=== PATIENT | male | born 1955 | race African-American/Black ===

== ENCOUNTER → 2016-06-26 | Day surgery (SDC) | payer MEDICARE, MEDICAID ==
[2016-06-26] VITALS (11 sets, daily range): BP systolic 119–155; BP diastolic 62–97
[~2016-06-26] VITALS: Ht 175.3 cm; Wt 73.9 kg
[~2016-06-26] MED LIST: ASPIRIN EC325 MG ORAL; ASPIRIN EC81 MG ORAL; ATORVASTATIN CA80 MG ORAL; CARVEDILOL6.25 MG ORAL; CATAPRES0.1 MG ORAL; COUMADIN7.5 MG ORAL; DIGOXIN250 MCG ORAL; FUROSEMIDE40 MG ORAL; GABAPENTIN100 MG ORAL; HARVONI 90-4001 EACH PO; IPRATROPIU0.2 MG/1 M HHN; LEVOTHYROXINE100 MCG ORAL; LEVOTHYROXINE88 MCG ORAL; Lidocaine 1% MPF 10mg/ml 5ml ONE; MORPHINE IR15 MG ORAL; MORPHINE S10 MG/5 ML ORAL; MS CONTIN15 MG ORAL; MULTIVITAMINS1 EAC2 ORAL; NITROGLYCERIN0.4 MG SL; NORCO 5-325 TA1 EACH ORAL; OXYCODONE HCL10 MG ORAL; PREVACID30 MG ORAL; PRINIVIL10 MG ORAL; PROAIR HFA8.5 GM INH; Propofol 10mg/ml 20ml IV ONE; RANITIDINE HCL150 MG ORAL; REGLAN5 MG ORAL; SPIRONOLACTONE100 MG ORAL; SYNTHROID100 MCG ORAL; TYLENOL650 MG/20. ORAL; ZOLPIDEM TARTRAT5 MG ORAL
--- NOTE | 2016-06-26 10:12 | Pre-Procedure Note/Attestation ---
Pre-Procedure Note/Attestation Complete Prior to Procedure Planned Procedure: not applicable Procedure Narrative: colonoscopy Indications for Procedure Pre-Operative Diagnosis: screening colon Attestation I attest that I discussed the nature of the procedure; its benefits; risks and complications; and alternatives (and the risks and benefits of such alternatives ), prior to the procedure, with the patient (or the patient's legal electronics parts sales representative). I attest that, if there was a reasonable possibility of needing a blood transfusion, the patient (or the patient's legal electronics parts sales representative) was given the [facility] standardized written summary, pursuant to the [place] Blood Safety Act ([place] Health and Safety Code # 1645, as amended). I attest that I re-evaluated the patient just prior to the surgery and that there has been no change in the patient's H&P, except as documented below: PALAK BILLINGSLEY Jun 26, 2016 10:12
--- NOTE | 2016-06-26 10:15 | Short Stay Surgery H&P ---
History of Present Illness History of Present Illness Chief Complaint screening colon HPI Shad Rodas is a 61 year old male who was admitted on for Abdominal Pain, Cirrhosis, Hep C Patient History Allergies: Coded Allergies: HYDROMORPHONE (Verified Allergy, Unknown, 12/28/10) PAST MEDICAL HISTORY: (1) Hepatitis C (2) Cirrhosis (3) CHF (congestive heart failure) (4) Ascites Past Surgeries: Social History: Medication History Scheduled Albuterol Sulfate* (Proair Hfa*), 2 PUFFS INH Q6H, (Reported) Aspirin Ec* (Aspirin Ec*), 81 MG ORAL DAILY, (Reported) Aspirin* (Aspirin Ec*), 325 MG ORAL PRN, (Reported) Atorvastatin Calcium* (Lipitor*), 80 MG ORAL BEDTIME, (Reported) Carvedilol* (Carvedilol*), 12.5 MG ORAL EVERY 12 HOURS, (Reported) Digoxin* (Digoxin*), 0.25 MG ORAL DAILY, (Reported) Furosemide* (Lasix*), 40 MG ORAL TWICE A DAY, (Reported) Gabapentin* (Gabapentin*), 100 MG ORAL BID, (Reported) Lansoprazole* (Prevacid*), 30 MG ORAL DAILY, (Reported) Levothyroxine Sodium* (Levothyroxine Sodium*), 88 MCG ORAL DAILY, (Reported) Lisinopril* (Prinivil*), 5 MG ORAL DAILY, (Reported) Metoclopramide Hcl* (Reglan*), 5 MG ORAL EVERY 6 HOURS, (Reported) Morphine HCl (Morphine Sulfate ER), 15 MG ORAL BID, (Reported) Multivitamins* (Multivitamins*), 2 TAB ORAL DAILY, (Reported) Oxycodone Hcl* (Oxycodone Hcl*), 10 MG ORAL BID, (Reported) Spironolactone* (Spironolactone*), 50 MG ORAL DAILY, (Reported) Warfarin Sod (Coumadin*), 9.5 MG ORAL DAILY, (Reported) Scheduled PRN Ipratropium [place] 0.5MG/2.5ML (Ipratropium [place] 0.5MG/2.5ML), 0.5 MG HHN Q6H PRN for Shortness of Breath, (Reported) Nitroglycerin (Nitroglycerin), 0.4 MG SL q5 minutes x 3 doses PRN for chest pain , (Reported) Zolpidem Tartrate* (Zolpidem Tartrate*), 10 MG ORAL BEDTIME PRN for Insomnia, ( Reported) Review of Systems Cardiovascular: Reports: no symptoms Respiratory: Reports: no symptoms Skeletal: Reports: no symptoms Gastrointestinal: Reports: gastro esophageal reflux disease Genitourinary: Reports: no symptoms Neurologic: Reports: no symptoms Endocrine: Reports: diabetes - type 2 Hematologic: Reports: anemia Physical Exam Skin: normal HENT: normal Heart: normal Lungs: normal Abdomen: normal Extremities: normal Plan Plan of Care colonoscopy Final Diagnosis: Attestation Are the patient's medical conditions optimized for surgery? Attestation Response: yes PALAK BILLINGSLEY Jun 26, 2016 10:15
--- NOTE | 2016-06-26 11:10 | Anethesia Preoperative Eval ---
Anesthesia Pre-op PMH/ROS General Date of Evaluation: Jun 26, 2016 Time of Evaluation: 11:06 Anesthesiologist: chico ASA Score: ASA 3 Mallampati Score Class I : Soft palate, uvula, fauces, pillars visible Class II: Soft palate, uvula, fauces visible Class III: Soft palate, base of uvula visible Class IV: Only hard plate visible Mallampati Classification: Class III Surgeon: gerri Diagnosis: colon screening Surgical Procedure: colonocopy Anesthesia History: none Family History: no anesthesia problems Allergies: Coded Allergies: HYDROMORPHONE (Verified Allergy, Unknown, 12/28/10) Medications: see eMAR Past Medical History Cardiovascular: Reports: CAD, HTN, arrhythmia, other - aflutter/aicd Gastrointestinal/Genitourinary: Reports: GERD, other - hep c Neurologic/Psychiatric: Denies: CVA, TIA, dementia, depression/anxiety, other Endocrine: Reports: hypothyroidism HEENT: Denies: [place] (L), [place] (R), cataract (L), cataract (R), glaucoma, other Hematology/Immune: Reports: other - on coumadin/dc'd prior to colonoscopy; dr talley wishe to proceed without coags levl PSxH Narrative: aicd placement Anesthesia Pre-op Phys. Exam Physician Exam Last Vital Signs Date Time Temp Pulse Resp B/P Pulse Ox O2 Delivery O2 Flow Rate FiO2 06/26/16 10:41 97.6 60 18 138/86 100 Room Air Constitutional: NAD Airway Exam Mallampati Classification 3 Neck: normal Dentures: no lower, no upper Anesthesia Pre-op A/P Studies Pre-op Studies: EKG - apaced Risk Assessment & Plan Plan: mac Status Change Before Surgery: No Pre-Antibiotics Drug: none DUY TOPETE CRNA Jun 26, 2016 11:10
--- NOTE | 2016-06-26 11:37 | Endoscopy Procedure Note ---
Endoscopy Procedure Note Indication for Procedure: screening Procedures Performed: colonoscopy Operative Findings/Diagnosis: one polyp Specimen: yes Pt Tolerated Procedure Well: Yes Estimated Blood Loss: none Anesthesiologist: corby Anesthesia: MAC Implant(s) used?: No 50 yrs or older w/o bx or poly: No 10yrs. F/U not recommended: Yes If not recommended, why?: Above average risk 10 yrs. F/U needed: Yes 18 years or older w/prev. colo: Yes <3yrs. since last colonoscopy: No PALAK BILLINGSLEY Jun 26, 2016 11:37
--- NOTE | 2016-06-26 11:47 | Immediate Post-Op Evaluation ---
Immediate Post-Op Evalulation Immediate Post-Op Evalulation Procedure: colonoscopy Date of Evaluation: Jun 26, 2016 Time of Evaluation: 11:47 IV Fluids: 300 Blood Pressure Systolic: 119 Blood Pressure Diastolic: 80 Pulse Rate: 59 O2 Sat by Pulse Oximetry: 99 Nausea: No Vomiting: No Complications none Patient Status: awake, reacts, patent Hydration Status: adequate Drug: none DUY TOPETE CRNA Jun 26, 2016 11:47
--- NOTE | 2016-06-26 11:53 | Diagnostic Imaging Report ---
Indication:Abdominal pain Technique: Grayscale and duplex Doppler imaging of the abdomen performed. Comparison: None Findings: The liver, demonstrated part of the pancreas, gallbladder, aorta and IVC, both kidneys, spleen appear unremarkable. There is no biliary ductal dilatation identified. CBD is 4 mm. Doppler evaluation of the main portal vein shows patency. There is no ascites. No hydronephrosis seen. Impression: Negative abdominal ultrasound.
[2016-06-26 12:19] LABS: BASOPHILS % (AUTO) 1.3 % (0.0-2.0); EOSINOPHILS % (AUTO) 1.1 % (0.0-3.0); LYMPHOCYTES % (AUTO) 31.6 % (20.0-45.0); MEAN CORPUSCULAR HEMOGLOBIN 32.7 PG (27.0-31.0); MEAN CORPUSCULAR HGB CONC 32.5 G/DL (32.0-36.0); MEAN CORPUSCULAR VOLUME 101 FL (80-99); MEAN PLATELET VOLUME 8.4 FL (6.5-10.1); MONOCYTES % (AUTO) 9.2 % (1.0-10.0); NEUTROPHILS % (AUTO) 56.8 % (45.0-75.0); PLATELET COUNT 150 K/UL (150-450); RED BLOOD COUNT 4.27 M/UL (4.70-6.10); RED CELL DISTRIBUTION WIDTH 13.4 % (11.6-14.8); WHITE BLOOD COUNT 3.7 K/UL (4.8-10.8)
[2016-06-26 12:26] LABS: INR 1.1 (0.9-1.1); PROTHROMBIN TIME 10.7 SEC (9.30-11.50)
[2016-06-26 12:30] LABS: ANION GAP 10 (5-15); CALCIUM 9.6 mg/dL (8.6-10.2); CARBON DIOXIDE 29 mEQ/L (20-30); CHLORIDE 99 mEQ/L (98-107); CREATININE 1.1 mg/dL (0.7-1.2); GLOMERULAR FILTRATION RATE > 60 mL/min (>60); HEMOLYSIS 9; POTASSIUM 4.4 mEQ/L (3.4-4.9); SODIUM 138 mEQ/L (135-145)
--- NOTE | 2016-06-26 18:18 | Procedure Note ---
DATE OF PROCEDURE: 06/26/2016 SURGEON: Beto Ryan M.D. PROCEDURE: Colonoscopy with biopsy. ANESTHESIA: Per PLANNING MANAGEMENT IT SPECIALIST, Mayra Tarrillion. INSTRUMENT: Olympus adult flexible upper colonoscope. INDICATION: Screening colonoscopy evaluation. REASON FOR PROCEDURE: The procedure, risks, benefits, and possible consequences, including hemorrhage, aspiration, perforation and infection, and alternative treatments, were explained to the patient/legal guardian by Dr. Beto Ryan and the patient/legal guardian understood and accepted these risks. DESCRIPTION OF PROCEDURE: After informed consent was obtained and the patient was adequately sedated, first a rectal exam was performed, which was normal. Then, the scope was advanced from rectum into the cecum, documented by appendiceal orifice, ileocecal valve, and right upper quadrant palpation. Quality of prep was very good. The patient had one diminutive polyp in the transverse colon, removed with the cold biopsy forceps technique. Otherwise, the rest of the colonoscopy examination was grossly within normal limit. Retroflexion of rectum showed evidence of medium-sized nonbleeding internal hemorrhoids. SUMMARY OF FINDINGS: 1. Colonic polyp removed, see above for details. 2. Internal hemorrhoids. RECOMMENDATIONS: 1. Follow up biopsies and treat accordingly. 2. Recommend repeat colonoscopy in five years. I want to thank, Dr. Shahid Cherry, for this kind referral. Beto Ryan M.D. DR: KIMO JOB#: [id number] CC: Shahid Cherry D.O.
--- NOTE | 2016-06-27 20:26 | Cardiology Report ---
APPROVED REPORT EKG Measurement Heart [id number] Atrial paced, ventricular sensed rhythm Electronic pacemaker Abnormal ECG
== END | disposition home or self-care (01) ==
LOC: GAS 09:11
DX: Z12.11 Encounter for screening for malignant neoplasm of colon (principal); D12.3 Benign neoplasm of transverse colon; K64.8 Other hemorrhoids; K74.60 Unspecified cirrhosis of liver; B19.20 Unspecified viral hepatitis C without hepatic coma; I50.9 Heart failure, unspecified; K21.9 Gastro-esophageal reflux disease without esophagitis; E11.9 Type 2 diabetes mellitus without complications; D64.9 Anemia, unspecified; I25.10 Atherosclerotic heart disease of native coronary artery without angina pectoris; I10 Essential (primary) hypertension; I48.92 Unspecified atrial flutter; Z79.01 Long term (current) use of anticoagulants; E03.9 Hypothyroidism, unspecified; Z95.810 Presence of automatic (implantable) cardiac defibrillator; Z79.82 Long term (current) use of aspirin; Z79.891 Long term (current) use of opiate analgesic; Z88.5 Allergy status to narcotic agent
CPT/HCPCS: 36415; 45380; 76700; 80048; 85025; 85610; 85730; 93005; J2704; 94003; 94150

== ENCOUNTER → 2016-07-09 | Outpatient (CLI) | payer MEDICARE, MEDICAID ==
[~2016-07-09] MED LIST changes: -Lidocaine 1% MPF 10mg/ml 5ml ONE; -Propofol 10mg/ml 20ml IV ONE
--- NOTE | 2016-07-09 10:20 | GI Progress Note ---
Assessment/Plan Problems: (1) Colon polyps ICD Codes: K63.5 - Polyp of colon SNOMED: 30404199 (2) Hepatitis C ICD Codes: B19.20 - Hepatitis C SNOMED: 82986908 (3) Abdominal pain ICD Codes: R10.9 - Abdominal pain SNOMED: 72865745 Status: stable Status Narrative Seen with Dr. Ryan. Assessment/Plan colonoscopy reviewed with patient. anusol HC prn RTC prn repeat colon x 5 years Subjective Gastrointestinal/Abdominal: Reports: abdominal pain - improved, no symptoms Objective T 97.4 BP 143/94 P 60 100 RA Denies weight loss General Appearance: no apparent distress, alert Cardiovascular: normal rate Respiratory/Chest: normal breath sounds, no respiratory distress Abdominal Exam: normal bowel sounds, non tender, soft Extremities: normal range of motion Objective Endoscopy Procedure Note Indication for Procedure: screening Procedures Performed: colonoscopy Operative Findings/Diagnosis: one polyp PALAK RYAN - Jun 26, 2016 11:37 Chanel Bird N.P. Jul 09, 2016 10:20
[2016-07-09 11:52] VITALS: BP 153/100
== END | disposition home or self-care (01) ==
LOC: PAN 09:29
DX: K63.5 Polyp of colon (principal); B19.20 Unspecified viral hepatitis C without hepatic coma; R10.9 Unspecified abdominal pain
CPT/HCPCS: 99211

== ENCOUNTER 2016-12-07 10:07 | Inpatient (IN) | payer MEDICARE, MEDICAID ==
[~2016-12-07] VITALS: Ht 190.5 cm; Wt 68.5 kg
[2016-12-07 10:15] VITALS: BP 151/104
[2016-12-07] MEDS ORDERED: Ketorolac 30mg Inj IV ONE (10:15)
[2016-12-07 10:57] LABS: EOSINOPHILS % (AUTO) 0.2 % (0.0-3.0); LYMPHOCYTES % (AUTO) 15.7 % (20.0-45.0); MEAN CORPUSCULAR HEMOGLOBIN 33.4 PG (27.0-31.0); MEAN CORPUSCULAR VOLUME 104 FL (80-99); MEAN PLATELET VOLUME 7.5 FL (6.5-10.1); MONOCYTES % (AUTO) 5.4 % (1.0-10.0); NEUTROPHILS % (AUTO) 76.6 % (45.0-75.0); PLATELET COUNT 183 K/UL (150-450); RED BLOOD COUNT 3.59 M/UL (4.70-6.10); RED CELL DISTRIBUTION WIDTH 14.6 % (11.6-14.8); WHITE BLOOD COUNT 6.3 K/UL (4.8-10.8)
[2016-12-07 11:07] LABS: ALANINE AMINOTRANSFERASE 33 U/L (3-41); ALBUMIN/GLOBULIN RATIO 1.4 (1.0-2.7); ANION GAP 15 (5-15); ASPARTATE AMINO TRANSFERASE 29 U/L (5-40); CARBON DIOXIDE 24 mEQ/L (20-30); CHLORIDE 98 mEQ/L (98-107); CREATININE 1.1 mg/dL (0.7-1.2); GLOMERULAR FILTRATION RATE > 60 mL/min (>60); HEMOLYSIS 13; LIPASE 15 U/L (< 60); POTASSIUM 4.4 mEQ/L (3.4-4.9); SODIUM 137 mEQ/L (135-145); TOTAL PROTEIN 7.4 g/dL (6.6-8.7)
[2016-12-07 11:12] LABS: TROPONIN I < 0.30 ng/mL (<=0.30)
[2016-12-07 11:19] LABS: BILIRUBIN,DIRECT 0.4 mg/dL (0.1-0.3)
[2016-12-07 11:22] VITALS: BP 141/97
[2016-12-07 11:29] LABS: APPEARANCE,URINE CLEAR; KETONES,URINE NEGATIVE (NEGATIVE); LEUKOCYTE ESTERASE ,URINE NEGATIVE (NEGATIVE); NITRITE,URINE NEGATIVE (NEGATIVE); PH,URINE 5 (4.5-8.0); PROTEIN,URINE 4+ (NEGATIVE); UROBILINOGEN,URINE 1 MG/DL (0.0-1.0)
[2016-12-07] MEDS ORDERED: Morphine Sulfate 2mg/ml Inj IVP ONE (11:30)
--- NOTE | 2016-12-07 11:38 | Emergency Room Report ---
History of Present Illness General Chief Complaint: Abdominal Pain Source: Patient Present Illness HPI 61YOM BIBEMS with epigastric substernal chest pain associated with left lower abd pain for 2-3 days. Pain intermittent, worse with movement. Associated with nausea w/out vomiting, without diarrhea, without rectal bleed. Had colonoscopy recently that showed "polyp." Allergies: Coded Allergies: HYDROMORPHONE (Verified Allergy, Unknown, 12/28/10) Patient History Past Medical History: other - hernia Past Surgical History: pacemaker Pertinent Family History: none Social History: Denies: alcohol use, drug use, smoking Immunizations: UTD Reviewed Nursing Documentation: PMH: Agreed, PSxH: Agreed Nursing Documentation-PMH Hx Cardiac Problems: Yes Hx Hypertension: Yes Hx Pacemaker: Yes - Left upper chest Hx COPD: Yes Hx Cancer: No Hx Gastrointestinal Problems: Yes Hx Neurological Problems: No Review of Systems All Other Systems: negative except mentioned in HPI Physical Exam Vital Signs Date Time Temp Pulse Resp B/P Pulse Ox O2 Delivery O2 Flow Rate FiO2 12/07/16 10:10 98.2 92 15 150/114 99 Room Air Sp02 EP Interpretation: reviewed, abnormal General Appearance: normal inspection, well appearing, no apparent distress, alert, GCS 15, non-toxic Head: normocephalic, atraumatic Eyes: bilateral eye EOMI, bilateral eye PERRL ENT: normal ENT inspection, hearing grossly normal, normal voice Neck: normal inspection, full range of motion, supple, no bony tend Respiratory: normal inspection, lungs clear, normal breath sounds, no respiratory distress, no retraction, no wheezing, other - palpation of chest wall reproduces pain, chest symmetrical Cardiovascular #1: regular rate, rhythm, no edema Gastrointestinal: normal inspection, normal bowel sounds, soft, no guarding, no hernia, other - tender to left side of abdomen Genitourinary: no CVA tenderness Musculoskeletal: normal inspection, back normal, normal range of motion, Naye' s Sign negative Neurologic: normal inspection, alert, oriented x3, responsive, thermal cutting tracer machine operator III-XII nml as tested, motor strength/tone normal, speech normal Psychiatric: normal inspection, judgement/insight normal, mood/affect normal Skin: normal inspection Medical Decision Making Diagnostic Impression: Primary Impression: Abdominal pain Qualified Codes: R10.30 - Lower abdominal pain, unspecified Additional Impressions: Chest pain Qualified Codes: R07.9 - Chest pain, unspecified Ascites Qualified Codes: R18.8 - Other ascites Pleural effusion on right Pleural effusion on left ER Course Abd pain, left side - Labs: No leuks. Afebrile. H&H stable. Mild LFT abnormalities - CT: Bibasilar pleural effusions (?CHF), ascites, GB wall thickening, edematous, subsegmental atelectasis, thickening urinary bladder wall - Pain is LEFT sided. Non tender on serial exam to RUQ - low suspicion for acute frannie. - A: Known hep C and cirrhosis. Likely cause of ascites and LFTs abnormalities. Only amount amount, no therapeutic paracentesis needed at this time. Chest pain - ECG shows what looks like new onset 1st degree block. ST depression in V5-6. Troponin 0. ASA given in ED. CT abdomen with bilateral pleural effusions, possibly CHF. Lasix IV given - Needs admission for ACS rule out, echo. High risk with known previous ACS, CHF, pacemaker. UTI? - CTAP shows bladder wall thickening - UA with WBCs, bacteria - IV Rocehphin given Endorsed to Dr Mojica for tele admit for multipl medical problems at 1232pm. EKG Diagnostic Results Rate: other - 1st degree AV block ST Segments: other - ST depressions in V5-6 ASA given to the pt in ED: No Rhythm Strip Diag. Results EP Interpretation: yes Rate: 85 Rhythm: NSR, no PVC's, no ectopy Chest X-Ray Diagnostic Results Chest X-Ray Ordered: Yes # of Views/Limited/Complete: 1 View EP Interpretation: Yes Interpretation: no consolidation, no effusion, no pneumothorax, no acute cardiopulmonary disease, other - pacemaker, cardiomegaly Indication: Chest Pain Impression: No acute disease Interpreting ER Provider: Renato Last Vital Signs Date Time Temp Pulse Resp B/P Pulse Ox O2 Delivery O2 Flow Rate FiO2 12/07/16 11:22 98.6 76 15 141/97 100 Room Air Status: improved Disposition: ADMITTED INPATIENT Condition: Serious Referrals: ROCÍO MOJICA (PCP) MINA JAMES M.D. Dec 07, 2016 11:38
[2016-12-07 11:56] LABS: BACTERIA,URINE OCCASIONAL /HPF; FINE GRANULAR CASTS,URINE 0-2 /LPF; SQUAMOUS EPITHELIAL CELL,UR FEW /LPF (NONE/OCC)
--- NOTE | 2016-12-07 12:23 | Diagnostic Imaging Report ---
Indications: Abdominal pain Technique: Continuous helical CT imaging of the abdomen and pelvis was performed with automatic exposure control following administration of nonionic IV contrast only, on a Siemens sensation [address] scanner. Axial, coronal, sagittal images were reconstructed at 5 mm slice thickness. No oral contrast was administered per requesting physician's order, despite no contraindications listed in either submitted clinical data or tech note.. CTDI volume(s): 17 mGy Total DLP: 791 mGy-cm Findings: Comparison: 08/11 14 Lack of oral contrast limits evaluation of gastrointestinal tract, nondilated throughout. Appendix unremarkable. No obvious mural thickening, adjacent stranding, extraluminal gas or fluid collections identified, aside from minimal free fluid adjacent to liver and in the dependent portion of pelvis. Gallbladder wall currently diffusely thickened/edematous. Splenic calcifications, scattered arterial mural calcifications, increased density in region of right inguinal canal, small left inguinal hernia containing only fat, apparent diffuse mural thickening of bladder distended urinary bladder relatively noted and unchanged.. Remainder of visualized abdominopelvic anatomy unremarkable. Bilateral pleural effusions have developed. Subsegmental atelectasis has developed in the adjacent portions of both lung bases. Heart remains enlarged with right-sided pacemaker leads, left atrial and ventricular dilation. Degenerative changes again noted in lumbar spine. IMPRESSION: Mild ascites, nonspecific Gallbladder wall thickening/edema, nonspecific, may be secondary to presence of ascites. Intrinsic pathology not excludable. Suggestion of persistent mural thickening of urinary bladder--underdistention versus hypertrophy versus cystitis No other evidence of acute abdominopelvic disease, with limitation as described. Subtle but potentially significant abnormalities the gastrointestinal tract may be missed. Repeat CT scan with full oral and IV contrast preparation recommended for more complete evaluation, as clinically indicated Stable splenic granulomas arteriosclerosis Development of bilateral pleural effusions, nonspecific, may be congestive Cardiomegaly with pacemaker leads Degenerative spondylosis This correlates with [facility] preliminary report.
[2016-12-07] MEDS ORDERED: Aspirin Baby 81mg ORAL ONE (12:45)
[2016-12-07] MEDS ORDERED: cefTRIAXone 1 GM in NS 55 ML IVPB ONE (12:45)
--- NOTE | 2016-12-07 13:16 | Infectious Diseases Prog Note ---
Assessment/Plan Problems: (1) UTI (urinary tract infection) Assessment & Plan: will send urine culture and start ceftriaxon empirically (2) Hepatitis C Assessment & Plan: will order viral load and genotype, recommend treatment with GI as an out patient (3) ACS (acute coronary syndrome) Assessment & Plan: continue tele monitor and trop check , consult cardiology (4) CHF (congestive heart failure) Assessment & Plan: continue diuretics and cardiac meds (5) Cirrhosis Assessment & Plan: suspect due to HCV, continue supportive care , follow up with GI (6) Chest pain Assessment & Plan: rule out ACS, monitor trop , continue tele monitor consult cardiology (7) Ascites Assessment & Plan: due to liver cirrhosis , may need paracentesis, monitor weight and UOP Subjective Allergies: Coded Allergies: HYDROMORPHONE (Verified Allergy, Unknown, 12/28/10) Objective Vital Signs Last 24 Hour Vital Signs Date Time Temp Pulse Resp B/P Pulse Ox O2 Delivery O2 Flow Rate FiO2 12/07/16 11:22 98.6 76 15 141/97 100 Room Air 12/07/16 10:15 80 13 Room Air 12/07/16 10:15 98.6 80 13 151/104 100 Room Air 12/07/16 10:10 98.2 92 15 150/114 99 Room Air Height (Feet): 6 Height (Inches): 3.00 Weight (Pounds): 162 Laboratory Tests Test 12/07/16 10:31 12/07/16 11:14 White Blood Count 6.3 K/UL (4.8-10.8) Red Blood Count 3.59 M/UL (4.70-6.10) L Hemoglobin 12.0 G/DL (14.2-18.0) L Hematocrit 37.5 % (42.0-52.0) L Mean Corpuscular Volume 104 FL (80-99) H Mean Corpuscular Hemoglobin 33.4 PG (27.0-31.0) H Mean Corpuscular Hemoglobin Concent 32.0 G/DL (32.0-36.0) Red Cell Distribution Width 14.6 % (11.6-14.8) Platelet Count 183 K/UL (150-450) Mean Platelet Volume 7.5 FL (6.5-10.1) Neutrophils (%) (Auto) 76.6 % (45.0-75.0) H Lymphocytes (%) (Auto) 15.7 % (20.0-45.0) L Monocytes (%) (Auto) 5.4 % (1.0-10.0) Eosinophils (%) (Auto) 0.2 % (0.0-3.0) Basophils (%) (Auto) 2.0 % (0.0-2.0) Sodium Level 137 mEQ/L (135-145) Potassium Level 4.4 mEQ/L (3.4-4.9) Chloride Level 98 mEQ/L (98-107) Carbon Dioxide Level 24 mEQ/L (20-30) Anion Gap 15 (5-15) Blood Urea Nitrogen 16 mg/dL (7-23) Creatinine 1.1 mg/dL (0.7-1.2) Estimat Glomerular Filtration Rate > 60 mL/min (>60) Glucose Level 117 mg/dL (74-106) H Calcium Level 9.0 mg/dL (8.6-10.2) Total Bilirubin 1.7 mg/dL (0.0-1.2) H Direct Bilirubin 0.4 mg/dL (0.1-0.3) H Aspartate Amino Transf (AST/SGOT) 29 U/L (5-40) Alanine Aminotransferase (ALT/SGPT) 33 U/L (3-41) Alkaline Phosphatase 161 U/L (40-129) H Troponin I < 0.30 ng/mL (<=0.30) Total Protein 7.4 g/dL (6.6-8.7) Albumin 4.4 g/dL (3.5-5.2) Globulin 3.0 g/dL Albumin/Globulin Ratio 1.4 (1.0-2.7) Lipase 15 U/L (< 60) Urine Color Brown Urine Appearance Clear Urine pH 5 (4.5-8.0) Urine Specific [place] 1.025 (1.005-1.035) Urine Protein 4+ (NEGATIVE) H Urine Glucose (UA) Negative (NEGATIVE) Urine Ketones Negative (NEGATIVE) Urine Occult Blood 2+ (NEGATIVE) H Urine Nitrite Negative (NEGATIVE) Urine Bilirubin Negative (NEGATIVE) Urine Urobilinogen 1 MG/DL (0.0-1.0) H Urine Leukocyte Esterase Negative (NEGATIVE) Urine RBC 2-4 /HPF (0 - 0) H Urine WBC 2-4 /HPF (0 - 0) Urine Squamous Epithelial Cells Few /LPF (NONE/OCC) Urine Bacteria Occasional /HPF (NONE) Urine Fine Granular Casts 0-2 /LPF (NONE) H Current Medications Medications (Trade) Dose Ordered Sig/Allyn Route PRN Reason Start Time Stop Time Status Last Admin Dose Admin Ceftriaxone Sodium/Sodium Chloride (Rocephin/Sodium Chloride) 55 ml @ 110 mls/hr ONCE ONCE IVPB 12/07/16 12:45 12/07/16 13:14 12/07/16 12:38 Maxine Alexander M.D. Dec 07, 2016 13:16
--- NOTE | 2016-12-07 14:19 | Cardiac Electrophysiology PN ---
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.Dictated [id number] SJ ICD by me at [facility] Atrial flutter ablation by me at [facility] Atrial fib ablation by me at [facility] EF 20% Non ischemic CMP Hep C Cirrhosis DW RN Objective Last 24 Hour Vital Signs Date Time Temp Pulse Resp B/P Pulse Ox O2 Delivery O2 Flow Rate FiO2 12/07/16 13:14 98.6 83 17 153/103 97 Room Air 12/07/16 11:22 98.6 76 15 141/97 100 Room Air 12/07/16 10:15 80 13 Room Air 12/07/16 10:15 98.6 80 13 151/104 100 Room Air 12/07/16 10:10 98.2 92 15 150/114 99 Room Air Laboratory Tests Test 12/07/16 10:31 12/07/16 11:14 White Blood Count 6.3 K/UL (4.8-10.8) Red Blood Count 3.59 M/UL (4.70-6.10) L Hemoglobin 12.0 G/DL (14.2-18.0) L Hematocrit 37.5 % (42.0-52.0) L Mean Corpuscular Volume 104 FL (80-99) H Mean Corpuscular Hemoglobin 33.4 PG (27.0-31.0) H Mean Corpuscular Hemoglobin Concent 32.0 G/DL (32.0-36.0) Red Cell Distribution Width 14.6 % (11.6-14.8) Platelet Count 183 K/UL (150-450) Mean Platelet Volume 7.5 FL (6.5-10.1) Neutrophils (%) (Auto) 76.6 % (45.0-75.0) H Lymphocytes (%) (Auto) 15.7 % (20.0-45.0) L Monocytes (%) (Auto) 5.4 % (1.0-10.0) Eosinophils (%) (Auto) 0.2 % (0.0-3.0) Basophils (%) (Auto) 2.0 % (0.0-2.0) Sodium Level 137 mEQ/L (135-145) Potassium Level 4.4 mEQ/L (3.4-4.9) Chloride Level 98 mEQ/L (98-107) Carbon Dioxide Level 24 mEQ/L (20-30) Anion Gap 15 (5-15) Blood Urea Nitrogen 16 mg/dL (7-23) Creatinine 1.1 mg/dL (0.7-1.2) Estimat Glomerular Filtration Rate > 60 mL/min (>60) Glucose Level 117 mg/dL (74-106) H Calcium Level 9.0 mg/dL (8.6-10.2) Total Bilirubin 1.7 mg/dL (0.0-1.2) H Direct Bilirubin 0.4 mg/dL (0.1-0.3) H Aspartate Amino Transf (AST/SGOT) 29 U/L (5-40) Alanine Aminotransferase (ALT/SGPT) 33 U/L (3-41) Alkaline Phosphatase 161 U/L (40-129) H Troponin I < 0.30 ng/mL (<=0.30) Total Protein 7.4 g/dL (6.6-8.7) Albumin 4.4 g/dL (3.5-5.2) Globulin 3.0 g/dL Albumin/Globulin Ratio 1.4 (1.0-2.7) Lipase 15 U/L (< 60) Urine Color Brown Urine Appearance Clear Urine pH 5 (4.5-8.0) Urine Specific [place] 1.025 (1.005-1.035) Urine Protein 4+ (NEGATIVE) H Urine Glucose (UA) Negative (NEGATIVE) Urine Ketones Negative (NEGATIVE) Urine Occult Blood 2+ (NEGATIVE) H Urine Nitrite Negative (NEGATIVE) Urine Bilirubin Negative (NEGATIVE) Urine Urobilinogen 1 MG/DL (0.0-1.0) H Urine Leukocyte Esterase Negative (NEGATIVE) Urine RBC 2-4 /HPF (0 - 0) H Urine WBC 2-4 /HPF (0 - 0) Urine Squamous Epithelial Cells Few /LPF (NONE/OCC) Urine Bacteria Occasional /HPF (NONE) Urine Fine Granular Casts 0-2 /LPF (NONE) H ANTHONY MUÑOZ Dec 07, 2016 14:19
[2016-12-07] MEDS ORDERED: DuoNeb 0.5-3(2.5)mg/3ml neb HHN PRN (15:45)
[2016-12-07] MEDS ORDERED: Albuterol 90mcg Inhaler 8gm INH PRN (15:45)
[2016-12-07 15:48] LABS: INR 1.1 (0.9-1.1)
[2016-12-07 16:00] VITALS: BP 146/103
[2016-12-07] MEDS ORDERED: WARFARIN SOD ORAL ONE ×2 (17:00)
[2016-12-07] MEDS: Morphine IR 15mg tab ORAL PRN ×2 (17:43→23:26)
[2016-12-07 20:00] VITALS: BP 143/104
--- NOTE | 2016-12-07 20:30 | Consultation ---
DATE OF CONSULTATION: 12/07/2016 CONSULTING PHYSICIAN: Rc Zhang M.D. REFERRING PHYSICIAN: Winston Jin M.D. ADDITIONAL REFERRING PHYSICIAN: Shahid Cherry D.O. REASON FOR CONSULTATION: Chest pain and shortness of breath. HISTORY OF PRESENT ILLNESS: The patient is a very pleasant, 61-year-old, gentleman, under my Cardiology care for many years. The patient has a history of hypertension and severe cardiomyopathy as well as history of [employer] defibrillator implantation and subsequent generator change by me in December of 2012. The patient also has a history of hepatitis C and ascites. The patient also has history of paroxysmal atrial fibrillation, underwent cardiac ablation of all [address] Bowman at [facility] in 2010. The patient had atrial flutter and redo ablation of all 4 pleural veins by me in July of 2016 at [facility] and was started on amiodarone. The patient is also on Coumadin with followup with Dr. Cherry. The patient presented to the emergency room with shortness of breath and abdominal pain after he ran out of his medication and they could not get his medication refilled. The patient was admitted, and a Cardiology consultation was obtained for further evaluation and management. REVIEW OF SYSTEMS: Performed and was negative other than what is mentioned in the history of present illness. PAST MEDICAL HISTORY: As mentioned above. FAMILY HISTORY: Noncontributory. SOCIAL HISTORY: He lives at home. He does not smoke or drink alcohol. PHYSICAL EXAMINATION: VITAL SIGNS: Blood pressure 152/110, respirations 18, temperature is 98.2, and pulse is 92. HEAD AND NECK: Positive JVD. LUNGS: Decreased breath sounds. CARDIOVASCULAR: Regular S1 and S2 with no gallop or murmur. ABDOMEN: Soft and nontender. EXTREMITIES: 1+ pitting edema. LABORATORY DATA: Labs show white count of 6.2, hemoglobin of 12.3, hematocrit 37.5, and platelet count of 183,000. Sodium 137, potassium 4.4, BUN of 16, creatinine of 1.1, and glucose of 117. The first troponin is negative. BNP is pending. ASSESSMENT AND PLAN: 1. Exacerbation of congestive heart failure. The patient has severe nonischemic cardiomyopathy with ejection fraction of only 20% by echocardiogram at [facility] in July 2016. Resume the patient's digoxin, Coreg, Lasix, Aldactone, and lisinopril 5 mg daily. 2. History of hypertension. Resume Coreg 25 mg b.i.d. and lisinopril 5 mg in addition to Aldactone . 3. Status post [employer] ICD generator change with battery longevity for about 5 years. 4. History of paroxysmal atrial fibrillation, status post radioablation of 4 pulmonary veins by me at [facility] in July of 2016. 5. History of hepatitis C and ascites. 6. Hypothyroidism. 7. Abdominal pain. Further evaluation by Gastroenterology. Thank very much, Dr. Jin, for allowing me to participate in the care of this patient. Please do not hesitate to contact me for any questions regarding my evaluation. Rc Zhang M.D. DR: DARRELL JOB#: [id number] CC:
[2016-12-07] MEDS: Carvedilol 25mg Tab ORAL SCH (21:52)
[2016-12-07] MEDS: Atorvastatin 80mg tab ORAL SCH (21:53)
--- NOTE | 2016-12-07 22:45 | Consultation ---
DATE OF CONSULTATION: INFECTIOUS DISEASE CONSULTATION CONSULTING PHYSICIAN: Maxine Alexander M.D. REQUESTING PHYSICIAN: Winston Jin M.D. REASON FOR CONSULTATION: Urinary tract infection, recommendation for antibiotics therapy. HISTORY OF PRESENT ILLNESS: The patient is a 61-year-old male with past medical history of coronary artery disease, hypertension, status post pacemaker, COPD, and GERD was brought in via paramedics to the emergency room at [facility] for epigastric substernal chest pain associated with left lower abdominal pain, which has been going on for two to three days. He describes the pain as intermittent, gets worse with movement, and gets better with pain medication, which he received in the emergency room. This pain is associated with nausea without vomiting. Denies any diarrhea. No fever or chills. No cough or shortness of breath. No dysuria or hematuria. No GI bleeding. The patient's temperature was 98.2 degrees in the emergency room, saturating 99% on room air. Extensive workup including CT scan, which showed bibasilar pleural effusion suspicious for CHF and ascites with gallbladder wall thickening and urinary bladder wall thickening. His urine showed evidence of infection, so I was consulted by the primary provider for antibiotics treatment and further management. As of note, the patient is poor historian and cannot provide any history. History is obtained from the medical records and nursing staff. REVIEW OF SYSTEMS: Unable to obtain at this point. The patient is a poor historian. PAST MEDICAL HISTORY: Significant for coronary artery disease, hypertension, status post pacemaker, COPD, and gastroesophageal reflux disease. PAST SURGICAL HISTORY: He had pacemaker placement. FAMILY HISTORY: Unable to obtain. SOCIAL HISTORY: [facility]. No recent drugs, tobacco, or alcohol. ALLERGIES: He is allergic to hydromorphone. MEDICATIONS: The patient received ceftriaxone in the emergency room. For the rest of his medications, please refer to MAR. PHYSICAL EXAMINATION: GENERAL: The patient is a middle-aged male, lying in bed, awake, alert, not in distress. VITAL SIGNS: Temperature 98.6 degrees, pulse 83, respirations 20, blood pressure 153/103, and saturation 97% on room air. HEENT: Normocephalic and atraumatic. Pupils are reactive to light. Dry oral mucosa. No exudate. NECK: Supple. No lymphadenopathy. CARDIOVASCULAR: Regular rate and rhythm. No murmur. LUNGS: He had diminished breathing sounds at the bases. No wheezing or rhonchi. Normal breathing efforts. ABDOMEN: Soft, distended with ascites. I could not appreciate organomegaly. No rebound. Diminished breathing sound. EXTREMITIES: Trace edema. No cyanosis. SKIN: No rash. No hives. LABORATORY DATA: Showed white count of 6.3, hemoglobin of of 12, and platelet count of 183,000. BUN of 16 and creatinine of 1.1. AST of 79 and ALT of 53. Urinalysis showed leukocyte esterase negative, WBC 2 to 4, and occasional bacteria. IMAGING: CT scan of abdomen and pelvis showed mild ascites, gallbladder wall thickening, edema nonspecific, probably due to ascites, persistent mural thickening of the urinary bladder under distention, possibly versus hypertrophy, and no other evidence of acute abdominal or pelvic disease. ASSESSMENT AND RECOMMENDATION: 1. Urinary tract infection. We will send urine culture and start ceftriaxone empirically. 2. Chronic hepatitis C. We will order viral load and genotype. Recommend treatment with Gastrointestinal as an outpatient. 3. Acute coronary syndrome. Continue athletic monitor and troponin check. Consult Cardiology. 4. Congestive heart failure, possible exacerbation. Continue diuretics and cardiac medications. 5. 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 Continue supportive care. Follow up with Gastrointestinal. 6. Chest pain, rule out acute coronary syndrome. Monitor troponin. Continue athletic monitor and consult Cardiology. 7. Ascites with pleural effusion due to liver cirrhosis, may be paracentesis. Monitor weight and urine output. Continue diuresis. Maxine Alexander M.D. DR: Reggie JOB#: [id number] CC:
[2016-12-08] VITALS: BP 126/89
[2016-12-08 04:00] VITALS: BP 128/85
[2016-12-08 08:00] VITALS: BP 137/95
[2016-12-08] MEDS: Lisinopril 2.5mg tab ORAL SCH (08:19)
[2016-12-08] MEDS: Carvedilol 25mg Tab ORAL SCH ×2 (08:19→21:05)
[2016-12-08] MEDS: Aspirin EC 81mg tab ORAL SCH (08:20)
[2016-12-08 08:23] LABS: INR 1.1 (0.9-1.1); PROTHROMBIN TIME 11.9 SEC (9.30-11.50)
[2016-12-08] MEDS ORDERED: Spironolactone 50mg tab ORAL SCH ×3 (09:00)
[2016-12-08] MEDS ORDERED: Digoxin 0.5mg/2ml Inj IVP SCH (09:00)
[2016-12-08 09:02] LABS: DIGOXIN < 0.3 ng/mL (0.5-2.0)
--- NOTE | 2016-12-08 11:29 | Diagnostic Imaging Report ---
Indications: Chest pain Technique: Portable AP chest Findings: Comparison: 08/17/2015 Size of cardiac silhouette has increased. Pulmonary vascular redistribution, bilateral interstitial prominence have developed. No pleural abnormality identified. Aortic arch calcification, left chest wall pacemaker again noted. IMPRESSION: Development of mild congestive heart failure
[2016-12-08 12:00] VITALS: BP 117/76
--- NOTE | 2016-12-08 12:30 | Consultation ---
DATE OF CONSULTATION: 12/08/2016 GASTROENTEROLOGY CONSULTATION CHIEF COMPLAINT: Increased abdominal pain. HISTORY OF PRESENT ILLNESS: The patient is a very pleasant 61-year-old man known to me from prior admissions. He has history of hepatitis C, status post treatment, prior history of ascites in the past, but has not had paracentesis for almost over a year. He has a history of extensive cardiac disease, status post defibrillator placement and the patient has history of CHF, admitted to the hospital mainly for shortness of breath, ascites, GI consultation for evaluation. PAST MEDICAL HISTORY: 1. Hepatitis C, status post treatment. 2. Ascites, most probably cardiac origin. 3. Status post paracentesis over a year ago. 4. History of hypertension. 5. Defibrillator placement. 6. Paroxysmal atrial fibrillation. 7. Mild chronic anemia. 8. Gastritis. 9. Hypothyroidism. PAST SURGICAL HISTORY: History of defibrillator placement. ALLERGIES: Hydromorphone. MEDICATIONS: Please see medication reconciliation list. SOCIAL HISTORY: The patient denies any tobacco, alcohol or drug abuse. FAMILY HISTORY: Noncontributory. REVIEW OF SYSTEMS: A 10-point review of system was performed and pertinent positives in history of present illness. PHYSICAL EXAMINATION: VITAL SIGNS: Temperature is 97.9, pulse 66, respirations 19, and blood pressure 120/85. HEENT: Normocephalic and atraumatic. Sclerae anicteric. NECK: Supple. No evidence of lymphadenopathy. CARDIOVASCULAR: Regular rhythm. Plus S1 and S2. LUNGS: Decreased breath sounds bilaterally based on the supine exam. ABDOMEN: Soft and nontender. No rebound. No guarding. EXTREMITIES: No cyanosis. No clubbing. No edema. LABORATORY DATA: White count 6.2, hemoglobin 12, hematocrit 37, MCV of 104, and platelet count is 183,000. Chem 7, sodium 137, potassium 4.4, BUN is 16, and creatinine is 1.1. Bilirubin is 1.7 and direct is 0.4. Alkaline phosphatase 161. ASSESSMENT AND PLAN: This is a 61-year-old gentleman with cardiac problems, history of hepatitis C, status post treatment, presents to the hospital complaining of shortness of breath most probably from congestive heart failure exacerbation with some right-sided on the imaging studies. On exam, the patient does not have significant ascites. On the CT, there is moderate ascites. The patient currently on Lasix and Aldactone, hold off from doing paracentesis at this time. Monitor labs. Follow with Cardiology recommendations. Hold off on GI procedure at this time. Beto Sweetie Ryan DR: TK JOB#: [id number] CC:
[2016-12-08] MEDS: cefTRIAXone 1 GM in D5W 55 ML IVPB SCH (13:48)
--- NOTE | 2016-12-08 14:24 | Cardiac Electrophysiology PN ---
Assessment/Plan Assessment/Plan 1. Exacerbation of congestive heart failure and severe nonischemic cardiomyopathy with ejection fraction of only 20% by echocardiogram at [facility] in July 2016. Continue digoxin, Coreg, Lasix, Aldactone, and lisinopril 5 mg daily. 2. History of hypertension. Resume Coreg 25 mg b.i.d. and lisinopril 5 mg and Aldactone . 3. Status post [employer] ICD generator change with battery longevity for about 5 years. 4. History of paroxysmal atrial fibrillation, status post radioablation of 4 pulmonary veins by me at [facility] in July of 2016.On Coumadin per Rx 5. History of hepatitis C and ascites. 6. Hypothyroidism. 7. Abdominal pain. Further evaluation by Gastroenterology. EDMAR RN Subjective Subjective Had 11 beat nonsustained VT last night but no shock.Comfortable in NAD. Objective Last 24 Hour Vital Signs Date Time Temp Pulse Resp B/P Pulse Ox O2 Delivery O2 Flow Rate FiO2 12/08/16 12:00 61 18 117/76 98 Room Air 12/08/16 08:20 74 12/08/16 08:19 139/95 12/08/16 08:19 74 139/95 12/08/16 08:00 97.5 57 18 137/95 96 Room Air 12/08/16 08:00 72 12/08/16 04:00 97.9 66 19 128/85 97 Room Air 12/08/16 04:00 78 12/08/16 02:42 97.4 12/08/16 00:00 78 12/08/16 00:00 97.4 77 20 126/89 94 Room Air 12/07/16 21:52 84 143/104 12/07/16 20:00 90 12/07/16 20:00 97.0 84 21 143/104 94 Room Air 12/07/16 16:00 85 12/07/16 16:00 97.9 73 18 146/103 99 Room Air Intake and Output 12/07/16 12/08/16 19:00 07:00 Intake Total 505 ml 550 ml Output Total 500 ml 1400 ml Balance 5 ml -850 ml Intake Oral 450 ml 550 ml IV Total 55 ml Output Urine Total 500 ml 1400 ml # Voids 2 Laboratory Tests Test 12/07/16 15:20 12/08/16 07:39 Prothrombin Time 12.0 SEC (9.30-11.50) H 11.9 SEC (9.30-11.50) H Prothromb Time International Ratio 1.1 (0.9-1.1) 1.1 (0.9-1.1) Pro-B-Type Natriuretic Peptide 62658 pg/mL (0-125) H 7709 pg/mL (0-125) H Digoxin Level < 0.3 ng/mL (0.5-2.0) L Microbiology Date/Time Source Procedure Growth Status 12/07/16 13:33 Urine,Clean Catch Urine Culture - Preliminary Resulted Objective HEAD AND NECK: Positive JVD. LUNGS: Decreased breath sounds. CARDIOVASCULAR: Regular S1 and S2 with no gallop or murmur.ICD left subclavian intact ABDOMEN: Soft and nontender. EXTREMITIES: 1+ pitting edema. ANTHONY MUÑOZ Dec 08, 2016 14:24
[2016-12-08 16:00] VITALS: BP 133/81
--- NOTE | 2016-12-08 16:24 | Infectious Diseases Prog Note ---
Assessment/Plan Problems: (1) UTI (urinary tract infection) Assessment & Plan: await urine culture and continue ceftriaxon empirically for now (2) Hepatitis C Assessment & Plan: await viral load and genotype, recommend treatment with GI as an out patient (3) ACS (acute coronary syndrome) Assessment & Plan: continue tele monitor and trop check , cardiology is following (4) CHF (congestive heart failure) Assessment & Plan: continue diuretics and cardiac meds (5) Cirrhosis Assessment & Plan: suspect due to HCV, continue supportive care , follow up with GI (6) Chest pain Assessment & Plan: rule out ACS, monitor trop , continue tele monitor , cardiology is following (7) Ascites Assessment & Plan: due to liver cirrhosis , may need paracentesis, monitor weight and UOP Subjective Constitutional: Reports: no symptoms HEENT: Reports: no symptoms Respiratory: Reports: no symptoms Breasts: Reports: no symptoms Cardiovascular: Reports: no symptoms Gastrointestinal/Abdominal: Reports: no symptoms Genitourinary: Reports: no symptoms Neurologic: Reports: no symptoms Psychiatric: Reports: no symptoms Skin: Reports: no symptoms Endocrine: Reports: no symptoms Allergies: Coded Allergies: HYDROMORPHONE (Verified Allergy, Unknown, 12/28/10) Objective Vital Signs Last 24 Hour Vital Signs Date Time Temp Pulse Resp B/P Pulse Ox O2 Delivery O2 Flow Rate FiO2 12/08/16 12:00 74 12/08/16 12:00 61 18 117/76 98 Room Air 12/08/16 08:20 74 12/08/16 08:19 139/95 12/08/16 08:19 74 139/95 12/08/16 08:00 97.5 57 18 137/95 96 Room Air 12/08/16 08:00 72 12/08/16 04:00 97.9 66 19 128/85 97 Room Air 12/08/16 04:00 78 12/08/16 02:42 97.4 12/08/16 00:00 78 12/08/16 00:00 97.4 77 20 126/89 94 Room Air 12/07/16 21:52 84 143/104 12/07/16 20:00 90 12/07/16 20:00 97.0 84 21 143/104 94 Room Air Height (Feet): 6 Height (Inches): 3.00 Weight (Pounds): 162 General Appearance: WD/WN, no acute distress HEENT: normocephalic, atraumatic, anicteric, mucous membranes moist, PERRL Respiratory/Chest: chest wall non-tender, lungs clear, normal breath sounds, no respiratory distress, no accessory muscle use Cardiovascular: normal peripheral pulses, normal rate, regular rhythm, no gallop/murmur, no JVD Abdomen: normal bowel sounds, soft, non tender, no organomegaly, non distended , no mass, no scars Extremities: no cyanosis, no clubbing Skin: no rash, no lesions Microbiology Date/Time Source Procedure Growth Status 12/07/16 13:33 Urine,Clean Catch Urine Culture - Preliminary Resulted Laboratory Tests Test 12/08/16 07:39 Prothrombin Time 11.9 SEC (9.30-11.50) H Prothromb Time International Ratio 1.1 (0.9-1.1) Pro-B-Type Natriuretic Peptide 7709 pg/mL (0-125) H Digoxin Level < 0.3 ng/mL (0.5-2.0) L Current Medications Medications (Trade) Dose Ordered Sig/Allyn Route PRN Reason Start Time Stop Time Status Last Admin Dose Admin Albuterol/ Ipratropium (DuoNeb 0.5-3(2.5)mg/3ml) 3 ml Q6H PRN HHN Shortness of Breath 12/07/16 15:45 12/12/16 15:44 Aspirin (Ecotrin) 81 mg DAILY ORAL 12/08/16 09:00 01/07/17 08:59 12/08/16 08:20 Atorvastatin Calcium (Lipitor) 80 mg BEDTIME ORAL 12/07/16 21:00 01/06/17 20:59 12/07/16 21:53 Carvedilol (Coreg) 25 mg EVERY 12 HOURS ORAL 12/07/16 21:00 01/06/17 20:59 12/08/16 08:19 Ceftriaxone Sodium/Dextrose (Rocephin/D5W) 55 ml @ 110 mls/hr Q24H IVPB 12/08/16 13:00 12/15/16 12:59 12/08/16 13:48 Digoxin (Lanoxin) 0.125 mg DAILY IVP 12/08/16 09:00 01/07/17 08:59 12/08/16 08:20 Furosemide (Lasix) 40 mg EVERY 12 HOURS IV 12/07/16 21:00 01/06/17 20:59 12/08/16 08:20 Gabapentin (Neurontin) 100 mg BID ORAL 12/07/16 18:00 01/06/17 17:59 12/08/16 08:19 Levothyroxine Sodium (Synthroid) 88 mcg ACBREAKFAST ORAL 12/08/16 06:30 01/07/17 06:29 12/08/16 05:23 Lisinopril (Zestril) 5 mg DAILY ORAL 12/08/16 09:00 01/07/17 08:59 12/08/16 08:19 Metoclopramide HCl (Reglan) 5 mg QID ORAL 12/07/16 17:00 01/06/17 16:59 12/08/16 13:48 Morphine HCl (Morphine IR) 15 mg BIDPRN PRN ORAL For Pain 12/07/16 15:45 12/14/16 15:44 12/07/16 23:26 Multivitamins (Multivitamins) 1 tab DAILY ORAL 12/08/16 09:00 01/07/17 08:59 12/08/16 08:19 Pantoprazole (Protonix) 40 mg DAILY ORAL 12/07/16 17:00 01/06/17 16:59 12/08/16 08:20 Spironolactone (Aldactone) 50 mg DAILY ORAL 12/08/16 09:00 01/07/17 08:59 12/08/16 09:18 Warfarin Sodium (Coumadin per pharmacy) 1 ea DAILY PRN MISC Per rx protocol 12/07/16 14:30 01/06/17 14:29 Warfarin Sodium (Coumadin) 10 mg COUMADIN ONCE ORAL 12/08/16 17:00 12/08/16 17:01 Zolpidem Tartrate (Ambien) 5 mg HSPRN PRN ORAL Insomnia 12/07/16 15:45 01/06/17 15:44 Maxine Alexander M.D. Dec 08, 2016 16:24
[2016-12-08] MEDS ORDERED: Warfarin Sodium 10mg ORAL ONE (17:00)
--- NOTE | 2016-12-08 17:26 | Consultation ---
History of Present Illness General Date patient seen: Dec 08, 2016 Chief Complaint: Abdominal Pain Reason for Consultation: chest pain Present Illness HPI 61 with hx of severe cardiomyopathy, ICD, Hep C, Cirrhosis presented with epigastric substernal chest pain associated with left lower abd pain for 2-3 days. Pain intermittent, worse with movement. Associated with nausea w/out vomiting, without diarrhea, without rectal bleed. His initial evaluation showed that he has pulmonary edema on CXR and admitted to telemetry for further treatment. Allergies: Coded Allergies: HYDROMORPHONE (Verified Allergy, Unknown, 12/28/10) Medication History Scheduled Albuterol Sulfate* (Proair Hfa*), 2 PUFFS INH Q6H, (Reported) Aspirin Ec* (Aspirin Ec*), 81 MG ORAL DAILY, (Reported) Aspirin* (Aspirin Ec*), 325 MG ORAL PRN, (Reported) Atorvastatin Calcium* (Lipitor*), 80 MG ORAL BEDTIME, (Reported) Carvedilol* (Carvedilol*), 12.5 MG ORAL EVERY 12 HOURS, (Reported) Digoxin* (Digoxin*), 0.25 MG ORAL DAILY, (Reported) Furosemide* (Lasix*), 40 MG ORAL TWICE A DAY, (Reported) Gabapentin* (Gabapentin*), 100 MG ORAL BID, (Reported) Lansoprazole* (Prevacid*), 30 MG ORAL DAILY, (Reported) Levothyroxine Sodium* (Levothyroxine Sodium*), 88 MCG ORAL DAILY, (Reported) Lisinopril* (Prinivil*), 5 MG ORAL DAILY, (Reported) Metoclopramide Hcl* (Reglan*), 5 MG ORAL EVERY 6 HOURS, (Reported) Morphine HCl (Morphine Sulfate ER), 15 MG ORAL BID, (Reported) Multivitamins* (Multivitamins*), 2 TAB ORAL DAILY, (Reported) Oxycodone Hcl* (Oxycodone Hcl*), 10 MG ORAL BID, (Reported) Spironolactone* (Spironolactone*), 50 MG ORAL DAILY, (Reported) Warfarin Sod (Coumadin*), 9.5 MG ORAL DAILY, (Reported) Scheduled PRN Ipratropium Garfield 0.5MG/2.5ML (Ipratropium [place] 0.5MG/2.5ML), 0.5 MG HHN Q6H PRN for Shortness of Breath, (Reported) Nitroglycerin (Nitroglycerin), 0.4 MG SL q5 minutes x 3 doses PRN for chest pain , (Reported) Zolpidem Tartrate* (Zolpidem Tartrate*), 10 MG ORAL BEDTIME PRN for Insomnia, ( Reported) Patient History Healthcare decision maker Resuscitation status Full Code Advanced Directive on File Past Medical/Surgical History Past Medical/Surgical History: (1) EF < 20% (2) Lumbar spondylosis (3) Hypothyroidism (4) Cardiomyopathy due to hypertension, with heart failure (5) Right-sided heart failure (6) Cirrhosis (7) Ascites Review of Systems All Other Systems: negative except mentioned in HPI Physical Exam General Appearance: WD/WN, no apparent distress Lines, tubes and drains: peripheral HEENT: normocephalic, atraumatic Neck: non-tender, normal alignment Respiratory/Chest: chest wall non-tender, lungs clear Cardiovascular/Chest: normal peripheral pulses, normal rate Abdomen: normal bowel sounds, non tender Genitourinary/Rectal: normal genital exam Extremities: normal range of motion, non-tender Skin Exam: normal pigmentation Neurologic: finish saw operator II-XII grossly normal Last 24 Hour Vital Signs Date Time Temp Pulse Resp B/P Pulse Ox O2 Delivery O2 Flow Rate FiO2 12/08/16 16:00 65 12/08/16 12:00 74 12/08/16 12:00 61 18 117/76 98 Room Air 12/08/16 08:20 74 12/08/16 08:19 139/95 12/08/16 08:19 74 139/95 12/08/16 08:00 97.5 57 18 137/95 96 Room Air 12/08/16 08:00 72 12/08/16 04:00 97.9 66 19 128/85 97 Room Air 12/08/16 04:00 78 12/08/16 02:42 97.4 12/08/16 00:00 78 12/08/16 00:00 97.4 77 20 126/89 94 Room Air 12/07/16 21:52 84 143/104 12/07/16 20:00 90 12/07/16 20:00 97.0 84 21 143/104 94 Room Air Intake and Output 12/07/16 12/08/16 19:00 07:00 Intake Total 505 ml 550 ml Output Total 500 ml 1400 ml Balance 5 ml -850 ml Intake Oral 450 ml 550 ml IV Total 55 ml Output Urine Total 500 ml 1400 ml # Voids 2 Laboratory Tests Test 12/08/16 07:39 Prothrombin Time 11.9 SEC (9.30-11.50) H Prothromb Time International Ratio 1.1 (0.9-1.1) Pro-B-Type Natriuretic Peptide 7709 pg/mL (0-125) H Digoxin Level < 0.3 ng/mL (0.5-2.0) L Height (Feet): 6 Height (Inches): 3.00 Weight (Pounds): 162 Medications Current Medications Medications (Trade) Dose Ordered Sig/Allyn Route PRN Reason Start Time Stop Time Status Last Admin Dose Admin Albuterol/ Ipratropium (DuoNeb 0.5-3(2.5)mg/3ml) 3 ml Q6H PRN HHN Shortness of Breath 12/07/16 15:45 12/12/16 15:44 Aspirin (Ecotrin) 81 mg DAILY ORAL 12/08/16 09:00 01/07/17 08:59 12/08/16 08:20 Atorvastatin Calcium (Lipitor) 80 mg BEDTIME ORAL 12/07/16 21:00 01/06/17 20:59 12/07/16 21:53 Carvedilol (Coreg) 25 mg EVERY 12 HOURS ORAL 12/07/16 21:00 01/06/17 20:59 12/08/16 08:19 Ceftriaxone Sodium/Dextrose (Rocephin/D5W) 55 ml @ 110 mls/hr Q24H IVPB 12/08/16 13:00 12/15/16 12:59 12/08/16 13:48 Digoxin (Lanoxin) 0.125 mg DAILY IVP 12/08/16 09:00 01/07/17 08:59 12/08/16 08:20 Furosemide (Lasix) 40 mg EVERY 12 HOURS IV 12/07/16 21:00 01/06/17 20:59 12/08/16 08:20 Gabapentin (Neurontin) 100 mg BID ORAL 12/07/16 18:00 01/06/17 17:59 12/08/16 08:19 Levothyroxine Sodium (Synthroid) 88 mcg ACBREAKFAST ORAL 12/08/16 06:30 01/07/17 06:29 12/08/16 05:23 Lisinopril (Zestril) 5 mg DAILY ORAL 12/08/16 09:00 01/07/17 08:59 12/08/16 08:19 Metoclopramide HCl (Reglan) 5 mg QID ORAL 12/07/16 17:00 01/06/17 16:59 12/08/16 13:48 Morphine HCl (Morphine IR) 15 mg BIDPRN PRN ORAL For Pain 12/07/16 15:45 12/14/16 15:44 12/07/16 23:26 Multivitamins (Multivitamins) 1 tab DAILY ORAL 12/08/16 09:00 01/07/17 08:59 12/08/16 08:19 Pantoprazole (Protonix) 40 mg DAILY ORAL 12/07/16 17:00 01/06/17 16:59 12/08/16 08:20 Spironolactone (Aldactone) 50 mg DAILY ORAL 12/08/16 09:00 01/07/17 08:59 12/08/16 09:18 Warfarin Sodium (Coumadin per pharmacy) 1 ea DAILY PRN MISC Per rx protocol 12/07/16 14:30 01/06/17 14:29 Zolpidem Tartrate (Ambien) 5 mg HSPRN PRN ORAL Insomnia 12/07/16 15:45 01/06/17 15:44 Assessment/Plan Problem List: (1) ACS (acute coronary syndrome) ICD Codes: I24.9 - Acute coronary syndrome SNOMED: 595879523 (2) EF < 20% (3) Cardiomyopathy due to hypertension, with heart failure ICD Codes: I11.0 - Cardiomyopathy due to hypertension, with heart failure; I42.9 - Cardiomyopathy, unspecified SNOMED: 00786981 (4) Hypothyroidism ICD Codes: E03.9 - Hypothyroidism SNOMED: 49062624 (5) Lumbar spondylosis ICD Codes: M47.816 - Spondylosis without myelopathy or radiculopathy, lumbar region SNOMED: 072479943 (6) Ascites ICD Codes: R18.8 - Ascites SNOMED: 071832903 Qualifiers: Qualified Codes: R18.8 - Other ascites (7) ICD (implantable cardioverter-defibrillator) in place ICD Codes: Z95.810 - Presence of automatic (implantable) cardiac defibrillator SNOMED: 119570093, 377413398 (8) Cirrhosis ICD Codes: K74.60 - Unspecified cirrhosis of liver SNOMED: 64765849 (9) Right-sided heart failure ICD Codes: I50.9 - Right-sided heart failure SNOMED: 145555218 Assessment/Plan serial ekg troponin optimize cardiac meds f/u bnp and cxr f/u electrolytes MONSERRAT TAYLOR Dec 08, 2016 17:26
[2016-12-08 20:00] VITALS: BP 114/79
[2016-12-08] MEDS: Atorvastatin 80mg tab ORAL SCH (20:59)
[2016-12-08] MEDS: Zolpidem 5mg tab ORAL PRN (23:14)
[2016-12-09] VITALS: BP 99/60
--- NOTE | 2016-12-09 | History and Physical Report ---
DATE OF ADMISSION: 12/07/2016 NOTE: POOR AUDIO Covering for Dr. Shahid Cherry. This is Dr. Shahid Cherry's patient. HISTORY OF PRESENT ILLNESS: The patient was admitted for rule out acute coronary syndrome. chest pain. No nausea, vomiting, diarrhea, fever, chills. The patient did have some nausea, has history of colon polyps. Denies orthopnea. Denies shortness of breath. Denies wheezing. PAST MEDICAL HISTORY: 1. COPD. 2. History of hypertension. 3. History of CAD. 4. History of hernia. 5. Neuropathy. 6. Arrhythmia. 7. Hypertension. 8. Hyperlipidemia. 9. GERD. 10. History of pleural effusion. 11. History of cirrhosis. 12. History of hypothyroidism. 13. Cardiomegaly. PAST SURGICAL HISTORY: 1. Pacemaker. 2. History of colon polypectomy. 3. ICD/pacemaker. 4. History of PEG. ALLERGIES: Hydromorphone. MEDICATIONS: 1. Lipitor. 2. Aspirin. 3. Digoxin. 4. Furosemide. 5. Gabapentin. 6. Prevacid. 7. Levoxyl. 8. Lisinopril. 9. Reglan. 10. Spironolactone. 11. Zosyn. 12. Ambien. FAMILY HISTORY: Noncontributory. SOCIAL HISTORY: He does have a history of smoking. REVIEW OF SYSTEMS: Respiratory: He denies shortness of breath or cough. Cardiovascular: He does have chest pain. He denies orthopnea. Gastrointestinal: He does have abdominal pain. nausea and vomiting. Denies diarrhea. Denies . Musculoskeletal: He does have chronic pain syndrome. 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 PHYSICAL EXAMINATION: VITAL SIGNS: Temperature is 98.2 degrees, pulse 65, and blood pressure 133/81. HEENT: PERRLA. NECK: Supple. No lymphadenopathy. CHEST: Clear to auscultation. GI: Distended. He does have ascites. . No organomegaly. LABORATORY DATA: WBC of , hemoglobin 12, and platelets 183,000. Sodium is 137, potassium 4.4, BUN of 16, creatinine 1.1, and glucose of 117. AST of 29, ALT of 33, and alkaline phosphatase of 161. Total bilirubin . ASSESSMENT AND PLAN: 1. Acute coronary syndrome . 2. History of cirrhosis. 3. The patient has nausea. 4. I have asked Dr. Benjamin Dr. to see this patient for the above-mentioned diagnoses and treatment. Winston Jin M.D. DR: Lamberto JOB#: [id number] CC:
[2016-12-09 04:00] VITALS: BP 94/58
[2016-12-09 06:53] LABS: INR 1.2 (0.9-1.1); PROTHROMBIN TIME 12.9 SEC (9.30-11.50)
[2016-12-09 07:28] LABS: MEAN CORPUSCULAR HEMOGLOBIN 34.6 PG (27.0-31.0); MEAN CORPUSCULAR HGB CONC 32.8 G/DL (32.0-36.0); MEAN CORPUSCULAR VOLUME 105 FL (80-99); MEAN PLATELET VOLUME 7.4 FL (6.5-10.1); PLATELET COUNT 169 K/UL (150-450); RED BLOOD COUNT 3.42 M/UL (4.70-6.10); RED CELL DISTRIBUTION WIDTH 15.1 % (11.6-14.8)
[2016-12-09 07:56] VITALS: BP 114/76
[2016-12-09 07:59] LABS: AMYLASE 82 U/L (10-110); ANION GAP 12 (5-15); CALCIUM 9.1 mg/dL (8.6-10.2); CARBON DIOXIDE 32 mEQ/L (20-30); CHLORIDE 97 mEQ/L (98-107); CREATININE 1.2 mg/dL (0.7-1.2); GLOMERULAR FILTRATION RATE > 60 mL/min (>60); HEMOLYSIS 5; LIPASE 16 U/L (< 60); POTASSIUM 3.6 mEQ/L (3.4-4.9); SODIUM 141 mEQ/L (135-145)
[2016-12-09 08:21] LABS: ANISOCYTOSIS 1+; BAND NEUTROPHILS % (MANUAL) 0 % (0-8); BASOPHILS % (MANUAL) 0 % (0-2); EOSINOPHILS % (MANUAL) 1 % (0-3); LYMPHOCYTES % (MANUAL) 11 % (20-45); MACROCYTES 1+; NEUTROPHILS % (MANUAL) 80 % (45-75); PLATELET ESTIMATE ADEQUATE; PLATELET MORPHOLOGY NORMAL; TOTAL CELLS COUNTED 100
[2016-12-09 08:27] LABS: PATH BLOOD SMEAR/OMC SENT TO PATHOLOGIST
[2016-12-09] MEDS: Lisinopril 2.5mg tab ORAL SCH (09:00)
[2016-12-09] MEDS: Aspirin EC 81mg tab ORAL SCH (09:08)
--- NOTE | 2016-12-09 11:06 | GI Progress Note ---
Assessment/Plan Problems: (1) Cirrhosis ICD Codes: K74.60 - Unspecified cirrhosis of liver SNOMED: 83731746 (2) Ascites ICD Codes: R18.8 - Ascites SNOMED: 981689249 Qualifiers: Qualified Codes: R18.8 - Other ascites (3) Hepatitis C ICD Codes: B19.20 - Hepatitis C SNOMED: 14778514 (4) Abdominal pain ICD Codes: R10.9 - Abdominal pain SNOMED: 08726089 Qualifiers: Qualified Codes: R10.30 - Lower abdominal pain, unspecified Status: stable Status Narrative Discussed with Dr. Ryan. Assessment/Plan hx of Hep C s/p tx APCT reviewed >> moderate ascites s/p colonoscopy with one polyp 06/26/16 defer GI procedures at this time cont Lasix Aldactone low sodium diet ppi reglan fu hep panel fu cardiology recs fu labs Subjective Gastrointestinal/Abdominal: Reports: abdominal pain - improving Objective Last 24 Hour Vital Signs Date Time Temp Pulse Resp B/P Pulse Ox O2 Delivery O2 Flow Rate FiO2 12/09/16 08:00 60 12/09/16 07:56 97.9 62 18 114/76 96 Room Air 12/09/16 07:52 60 18 Room Air 21 12/09/16 04:00 97.7 60 20 94/58 99 Room Air 12/09/16 04:00 60 12/09/16 00:00 97.4 60 19 99/60 97 Room Air 12/09/16 00:00 60 12/08/16 21:05 60 114/79 12/08/16 20:00 62 12/08/16 20:00 98.4 60 20 114/79 98 Room Air 12/08/16 19:23 21 12/08/16 19:23 62 18 99 21 12/08/16 19:10 61 18 98 Room Air 21 12/08/16 19:09 61 18 98 Room Air 21 12/08/16 16:00 65 12/08/16 16:00 98.2 67 20 133/81 99 Room Air 12/08/16 12:00 74 12/08/16 12:00 61 18 117/76 98 Room Air Intake and Output 12/08/16 12/09/16 19:00 07:00 Intake Total 960 ml 480 ml Output Total 950 ml 800 ml Balance 10 ml -320 ml Intake Oral 850 ml 480 ml IV Total 110 ml Output Urine Total 950 ml 800 ml # Voids 2 # Bowel Movements 2 Laboratory Tests Test 12/08/16 18:10 12/09/16 06:20 Hepatitis C Antibody Pending Hepatitis C RNA (PCR) IUs/ml Pending Hepatitis C RNA (PCR) log IUs/ml Pending Hepatitis C Genotype Pending White Blood Count 6.0 K/UL (4.8-10.8) Red Blood Count 3.42 M/UL (4.70-6.10) L Hemoglobin 11.8 G/DL (14.2-18.0) L Hematocrit 36.1 % (42.0-52.0) L Mean Corpuscular Volume 105 FL (80-99) H Mean Corpuscular Hemoglobin 34.6 PG (27.0-31.0) H Mean Corpuscular Hemoglobin Concent 32.8 G/DL (32.0-36.0) Red Cell Distribution Width 15.1 % (11.6-14.8) H Platelet Count 169 K/UL (150-450) Mean Platelet Volume 7.4 FL (6.5-10.1) Neutrophils (%) (Auto) % (45.0-75.0) Lymphocytes (%) (Auto) % (20.0-45.0) Monocytes (%) (Auto) % (1.0-10.0) Eosinophils (%) (Auto) % (0.0-3.0) Basophils (%) (Auto) % (0.0-2.0) Differential Total Cells Counted 100 Neutrophils % (Manual) 80 % (45-75) H Lymphocytes % (Manual) 11 % (20-45) L Monocytes % (Manual) 8 % (1-10) Eosinophils % (Manual) 1 % (0-3) Basophils % (Manual) 0 % (0-2) Band Neutrophils 0 % (0-8) Platelet Estimate Adequate Platelet Morphology Normal Anisocytosis 1+ Macrocytosis 1+ Prothrombin Time 12.9 SEC (9.30-11.50) H Prothromb Time International Ratio 1.2 (0.9-1.1) H Sodium Level 141 mEQ/L (135-145) Potassium Level 3.6 mEQ/L (3.4-4.9) Chloride Level 97 mEQ/L (98-107) L Carbon Dioxide Level 32 mEQ/L (20-30) H Anion Gap 12 (5-15) Blood Urea Nitrogen 17 mg/dL (7-23) Creatinine 1.2 mg/dL (0.7-1.2) Estimat Glomerular Filtration Rate > 60 mL/min (>60) Glucose Level 128 mg/dL (74-106) H Calcium Level 9.1 mg/dL (8.6-10.2) Amylase Level 82 U/L (10-110) Lipase 16 U/L (< 60) Vitamin B12 Level 1226 pg/mL (211-946) H Folate Pending Thyroid Stimulating Hormone (TSH) 22.590 uIU/mL (0.300-4.500) Height (Feet): 6 Height (Inches): 3.00 Weight (Pounds): 153 General Appearance: no apparent distress, alert, thin Cardiovascular: normal rate Respiratory/Chest: normal breath sounds Abdominal Exam: normal bowel sounds, non tender, soft Extremities: normal range of motion Chanel Bird N.P. Dec 09, 2016 11:06
[2016-12-09 11:59] VITALS: BP 132/96
--- NOTE | 2016-12-09 12:55 | Infectious Diseases Prog Note ---
Assessment/Plan Problems: (1) UTI (urinary tract infection) Assessment & Plan: urine culture showed less than 10 000 colonies of mixed gram positive organisms , most likely contaminant , will stop ceftriaxon empirically for now (2) Hepatitis C Assessment & Plan: await viral load and genotype, recommend treatment with GI as an out patient (3) ACS (acute coronary syndrome) Assessment & Plan: continue tele monitor and trop check , cardiology is following , stress test today (4) CHF (congestive heart failure) Assessment & Plan: continue diuretics and cardiac meds (5) Cirrhosis Assessment & Plan: suspect due to HCV, continue supportive care , follow up with GI (6) Chest pain Assessment & Plan: improved , rule out ACS, continue tele monitor , cardiology is following Subjective Constitutional: Reports: no symptoms HEENT: Reports: no symptoms Respiratory: Reports: no symptoms Breasts: Reports: no symptoms Cardiovascular: Reports: no symptoms Gastrointestinal/Abdominal: Reports: no symptoms Genitourinary: Reports: no symptoms Neurologic: Reports: no symptoms Psychiatric: Reports: no symptoms Skin: Reports: no symptoms Allergies: Coded Allergies: HYDROMORPHONE (Verified Allergy, Unknown, 12/28/10) Objective Vital Signs Last 24 Hour Vital Signs Date Time Temp Pulse Resp B/P Pulse Ox O2 Delivery O2 Flow Rate FiO2 12/09/16 12:00 60 12/09/16 11:59 97.7 61 18 132/96 97 Room Air 12/09/16 08:00 60 12/09/16 07:56 97.9 62 18 114/76 96 Room Air 12/09/16 07:52 60 18 Room Air 12/09/16 04:00 97.7 60 20 94/58 99 Room Air 12/09/16 04:00 60 12/09/16 00:00 97.4 60 19 99/60 97 Room Air 12/09/16 00:00 60 12/08/16 21:05 60 114/79 12/08/16 20:00 62 12/08/16 20:00 98.4 60 20 114/79 98 Room Air 12/08/16 19:23 21 12/08/16 19:23 62 18 99 21 12/08/16 19:10 61 18 98 Room Air 21 12/08/16 19:09 61 18 98 Room Air 21 12/08/16 16:00 65 12/08/16 16:00 98.2 67 20 133/81 99 Room Air Height (Feet): 6 Height (Inches): 3.00 Weight (Pounds): 153 General Appearance: WD/WN, no acute distress HEENT: normocephalic, atraumatic, anicteric, mucous membranes moist, EOMI, pharynx normal, supple, no JVD Respiratory/Chest: chest wall non-tender, lungs clear, normal breath sounds, no respiratory distress, no accessory muscle use Cardiovascular: normal peripheral pulses, normal rate, regular rhythm, no gallop/murmur, no JVD Abdomen: normal bowel sounds, soft, non tender, no organomegaly, non distended , no mass, no scars Extremities: no cyanosis, no clubbing Skin: no rash, no lesions, no ulcers Lymphatic: no neck adenopathy, no groin adenopathy Musculoskeletal: normal muscle bulk, no effusion Microbiology Date/Time Source Procedure Growth Status 12/07/16 15:10 Blood Blood Culture - Preliminary NO GROWTH AFTER 24 HOURS Resulted 12/07/16 15:00 Blood Blood Culture - Preliminary NO GROWTH AFTER 24 HOURS Resulted 12/07/16 13:33 Urine,Clean Catch Urine Culture - Preliminary Mixed Gram Positive Organism Resulted Laboratory Tests Test 12/08/16 18:10 12/09/16 06:20 Hepatitis C Antibody Pending Hepatitis C RNA (PCR) IUs/ml Pending Hepatitis C RNA (PCR) log IUs/ml Pending Hepatitis C Genotype Pending White Blood Count 6.0 K/UL (4.8-10.8) Red Blood Count 3.42 M/UL (4.70-6.10) L Hemoglobin 11.8 G/DL (14.2-18.0) L Hematocrit 36.1 % (42.0-52.0) L Mean Corpuscular Volume 105 FL (80-99) H Mean Corpuscular Hemoglobin 34.6 PG (27.0-31.0) H Mean Corpuscular Hemoglobin Concent 32.8 G/DL (32.0-36.0) Red Cell Distribution Width 15.1 % (11.6-14.8) H Platelet Count 169 K/UL (150-450) Mean Platelet Volume 7.4 FL (6.5-10.1) Neutrophils (%) (Auto) % (45.0-75.0) Lymphocytes (%) (Auto) % (20.0-45.0) Monocytes (%) (Auto) % (1.0-10.0) Eosinophils (%) (Auto) % (0.0-3.0) Basophils (%) (Auto) % (0.0-2.0) Differential Total Cells Counted 100 Neutrophils % (Manual) 80 % (45-75) H Lymphocytes % (Manual) 11 % (20-45) L Monocytes % (Manual) 8 % (1-10) Eosinophils % (Manual) 1 % (0-3) Basophils % (Manual) 0 % (0-2) Band Neutrophils 0 % (0-8) Platelet Estimate Adequate Platelet Morphology Normal Anisocytosis 1+ Macrocytosis 1+ Prothrombin Time 12.9 SEC (9.30-11.50) H Prothromb Time International Ratio 1.2 (0.9-1.1) H Sodium Level 141 mEQ/L (135-145) Potassium Level 3.6 mEQ/L (3.4-4.9) Chloride Level 97 mEQ/L (98-107) L Carbon Dioxide Level 32 mEQ/L (20-30) H Anion Gap 12 (5-15) Blood Urea Nitrogen 17 mg/dL (7-23) Creatinine 1.2 mg/dL (0.7-1.2) Estimat Glomerular Filtration Rate > 60 mL/min (>60) Glucose Level 128 mg/dL (74-106) H Calcium Level 9.1 mg/dL (8.6-10.2) Amylase Level 82 U/L (10-110) Lipase 16 U/L (< 60) Vitamin B12 Level 1226 pg/mL (211-946) H Folate Pending Thyroid Stimulating Hormone (TSH) 22.590 uIU/mL (0.300-4.500) Current Medications Medications (Trade) Dose Ordered Sig/Allyn Route PRN Reason Start Time Stop Time Status Last Admin Dose Admin Albuterol/ Ipratropium (DuoNeb 0.5-3(2.5)mg/3ml) 3 ml Q6H PRN HHN Shortness of Breath 12/07/16 15:45 12/12/16 15:44 12/08/16 19:05 Aspirin (Ecotrin) 81 mg DAILY ORAL 12/08/16 09:00 01/07/17 08:59 12/09/16 09:08 Atorvastatin Calcium (Lipitor) 80 mg BEDTIME ORAL 12/07/16 21:00 01/06/17 20:59 12/08/16 20:59 Carvedilol (Coreg) 25 mg EVERY 12 HOURS ORAL 12/09/16 21:00 01/08/17 20:59 Ceftriaxone Sodium/Dextrose (Rocephin/D5W) 55 ml @ 110 mls/hr Q24H IVPB 12/08/16 13:00 12/15/16 12:59 12/08/16 13:48 Digoxin (Lanoxin) 0.125 mg DAILY IVP 12/10/16 09:00 01/09/17 08:59 Furosemide (Lasix) 40 mg EVERY 12 HOURS IV 12/09/16 21:00 01/08/17 20:59 Gabapentin (Neurontin) 100 mg BID ORAL 12/07/16 18:00 01/06/17 17:59 12/09/16 09:08 Levothyroxine Sodium (Synthroid) 88 mcg ACBREAKFAST ORAL 12/08/16 06:30 01/07/17 06:29 12/09/16 05:44 Lisinopril (Zestril) 5 mg DAILY ORAL 12/08/16 09:00 01/07/17 08:59 12/08/16 08:19 Metoclopramide HCl (Reglan) 5 mg QID ORAL 12/07/16 17:00 01/06/17 16:59 12/08/16 20:59 Morphine HCl (Morphine IR) 15 mg BIDPRN PRN ORAL For Pain 12/07/16 15:45 12/14/16 15:44 12/07/16 23:26 Multivitamins (Multivitamins) 1 tab DAILY ORAL 12/08/16 09:00 01/07/17 08:59 12/09/16 09:08 Pantoprazole (Protonix) 40 mg DAILY ORAL 12/07/16 17:00 01/06/17 16:59 12/09/16 09:08 Spironolactone (Aldactone) 50 mg DAILY ORAL 12/10/16 09:00 01/09/17 08:59 Warfarin Sodium (Coumadin per pharmacy) 1 ea DAILY PRN MISC Per rx protocol 12/07/16 14:30 01/06/17 14:29 Warfarin Sodium (Coumadin) 10 mg COUMADIN ONCE ORAL 12/09/16 17:00 12/09/16 17:01 Zolpidem Tartrate (Ambien) 5 mg HSPRN PRN ORAL Insomnia 12/07/16 15:45 01/06/17 15:44 12/08/16 23:14 Maxine Alexander M.D. Dec 09, 2016 12:55
[2016-12-09] MEDS: Morphine IR 15mg tab ORAL PRN (13:30)
--- NOTE | 2016-12-09 13:47 | Pulmonology Progress Note ---
Assessment/Plan Problems: (1) ACS (acute coronary syndrome) (2) EF < 20% (3) Cardiomyopathy due to hypertension, with heart failure (4) Hypothyroidism (5) Lumbar spondylosis (6) Ascites (7) ICD (implantable cardioverter-defibrillator) in place (8) Cirrhosis (9) Right-sided heart failure Assessment/Plan improving titrate fio2 adjust cardiac meds acute SD ruled out f/u cardio recommendations Subjective ROS Limited/Unobtainable: No Interval Events: doing better Allergies: Coded Allergies: HYDROMORPHONE (Verified Allergy, Unknown, 12/28/10) Objective Last 24 Hour Vital Signs Date Time Temp Pulse Resp B/P Pulse Ox O2 Delivery O2 Flow Rate FiO2 12/09/16 12:00 60 12/09/16 11:59 97.7 61 18 132/96 97 Room Air 12/09/16 08:00 60 12/09/16 07:56 97.9 62 18 114/76 96 Room Air 12/09/16 07:52 60 18 Room Air 21 12/09/16 04:00 97.7 60 20 94/58 99 Room Air 12/09/16 04:00 60 12/09/16 00:00 97.4 60 19 99/60 97 Room Air 12/09/16 00:00 60 12/08/16 21:05 60 114/79 12/08/16 20:00 62 12/08/16 20:00 98.4 60 20 114/79 98 Room Air 12/08/16 19:23 21 12/08/16 19:23 62 18 99 21 12/08/16 19:10 61 18 98 Room Air 21 12/08/16 19:09 61 18 98 Room Air 21 12/08/16 16:00 65 12/08/16 16:00 98.2 67 20 133/81 99 Room Air Intake and Output 12/08/16 12/09/16 19:00 07:00 Intake Total 960 ml 480 ml Output Total 950 ml 800 ml Balance 10 ml -320 ml Intake Oral 850 ml 480 ml IV Total 110 ml Output Urine Total 950 ml 800 ml # Voids 2 # Bowel Movements 2 General Appearance: WD/WN HEENT: normocephalic, atraumatic Respiratory/Chest: chest wall non-tender, lungs clear Cardiovascular: normal peripheral pulses, normal rate Abdomen: normal bowel sounds, soft, non tender Genitourinary: normal external genitalia Extremities: no clubbing Skin: no ulcers 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, no motor/sensory deficits Lymphatic: no neck adenopathy Microbiology Date/Time Source Procedure Growth Status 12/07/16 15:10 Blood Blood Culture - Preliminary NO GROWTH AFTER 24 HOURS Resulted 12/07/16 15:00 Blood Blood Culture - Preliminary NO GROWTH AFTER 24 HOURS Resulted 12/07/16 13:33 Urine,Clean Catch Urine Culture - Preliminary Mixed Gram Positive Organism Resulted Laboratory Tests 12/08/16 18:10: Hepatitis C Antibody [Pending], Hepatitis C RNA (PCR) IUs/ml [Pending], Hepatitis C RNA (PCR) log IUs/ml [Pending], Hepatitis C Genotype [Pending] 12/09/16 06:20: White Blood Count 6.0, Red Blood Count 3.42L, Hemoglobin 11.8L, Hematocrit 36.1L , Mean Corpuscular Volume 105H, Mean Corpuscular Hemoglobin 34.6H, Mean Corpuscular Hemoglobin Concent 32.8, Red Cell Distribution Width 15.1H, Platelet Count 169, Mean Platelet Volume 7.4, Neutrophils (%) (Auto) , Lymphocytes (%) (Auto) , Monocytes (%) (Auto) , Eosinophils (%) (Auto) , Basophils (%) (Auto) , Differential Total Cells Counted 100, Neutrophils % ( Manual) 80H, Lymphocytes % (Manual) 11L, Monocytes % (Manual) 8, Eosinophils % ( Manual) 1, Basophils % (Manual) 0, Band Neutrophils 0, Platelet Estimate Adequate, Platelet Morphology Normal, Anisocytosis 1+, Macrocytosis 1+, Prothrombin Time 12.9H, Prothromb Time International Ratio 1.2H, Sodium Level 141, Potassium Level 3.6, Chloride Level 97L, Carbon Dioxide Level 32H, Anion Gap 12, Blood Urea Nitrogen 17, Creatinine 1.2, Estimat Glomerular Filtration Rate > 60, Glucose Level 128H, Calcium Level 9.1, Amylase Level 82, Lipase 16, Vitamin B12 Level 1226H, Folate [Pending], Thyroid Stimulating Hormone (TSH) 22.590H Current Medications Medications (Trade) Dose Ordered Sig/Allyn Route PRN Reason Start Time Stop Time Status Last Admin Dose Admin Albuterol/ Ipratropium (DuoNeb 0.5-3(2.5)mg/3ml) 3 ml Q6H PRN HHN Shortness of Breath 12/07/16 15:45 12/12/16 15:44 12/08/16 19:05 Aspirin (Ecotrin) 81 mg DAILY ORAL 12/08/16 09:00 01/07/17 08:59 12/09/16 09:08 Atorvastatin Calcium (Lipitor) 80 mg BEDTIME ORAL 12/07/16 21:00 01/06/17 20:59 12/08/16 20:59 Carvedilol (Coreg) 25 mg EVERY 12 HOURS ORAL 12/09/16 21:00 01/08/17 20:59 Ceftriaxone Sodium/Dextrose (Rocephin/D5W) 55 ml @ 110 mls/hr Q24H IVPB 12/08/16 13:00 12/15/16 12:59 12/08/16 13:48 Digoxin (Lanoxin) 0.125 mg DAILY IVP 12/10/16 09:00 01/09/17 08:59 Furosemide (Lasix) 40 mg EVERY 12 HOURS IV 12/09/16 21:00 01/08/17 20:59 Gabapentin (Neurontin) 100 mg BID ORAL 12/07/16 18:00 01/06/17 17:59 12/09/16 09:08 Levothyroxine Sodium (Synthroid) 88 mcg ACBREAKFAST ORAL 12/08/16 06:30 01/07/17 06:29 12/09/16 05:44 Lisinopril (Zestril) 5 mg DAILY ORAL 12/08/16 09:00 01/07/17 08:59 12/08/16 08:19 Metoclopramide HCl (Reglan) 5 mg QID ORAL 12/07/16 17:00 01/06/17 16:59 12/09/16 13:30 Morphine HCl (Morphine IR) 15 mg BIDPRN PRN ORAL For Pain 12/07/16 15:45 12/14/16 15:44 12/09/16 13:30 Multivitamins (Multivitamins) 1 tab DAILY ORAL 12/08/16 09:00 01/07/17 08:59 12/09/16 09:08 Pantoprazole (Protonix) 40 mg DAILY ORAL 12/07/16 17:00 01/06/17 16:59 12/09/16 09:08 Spironolactone (Aldactone) 50 mg DAILY ORAL 12/10/16 09:00 01/09/17 08:59 Warfarin Sodium (Coumadin per pharmacy) 1 ea DAILY PRN MISC Per rx protocol 12/07/16 14:30 01/06/17 14:29 Warfarin Sodium (Coumadin) 10 mg COUMADIN ONCE ORAL 12/09/16 17:00 12/09/16 17:01 Zolpidem Tartrate (Ambien) 5 mg HSPRN PRN ORAL Insomnia 12/07/16 15:45 01/06/17 15:44 12/08/16 23:14 MONSERRAT TAYLOR Dec 09, 2016 13:47
[2016-12-09] MEDS ORDERED: Tubing IV Secondary IV ONE (13:48)
[2016-12-09] MEDS: cefTRIAXone 1 GM in D5W 55 ML IVPB SCH (14:02)
[2016-12-09 16:00] VITALS: BP 117/80
--- NOTE | 2016-12-09 16:14 | General Progress Note ---
Assessment/Plan Problem List: (1) Lumbar radiculopathy ICD Codes: M54.16 - Lumbar radiculopathy SNOMED: 117239728 (2) Colon polyps ICD Codes: K63.5 - Polyp of colon SNOMED: 61425171 (3) Abdominal pain ICD Codes: R10.9 - Abdominal pain SNOMED: 01846714 Qualifiers: Qualified Codes: R10.30 - Lower abdominal pain, unspecified (4) Cirrhosis ICD Codes: K74.60 - Cirrhosis SNOMED: 73713406 (5) Chest pain ICD Codes: R07.9 - Chest pain, unspecified SNOMED: 73879906 Qualifiers: Qualified Codes: R07.9 - Chest pain, unspecified (6) CHF (congestive heart failure) ICD Codes: I50.9 - Heart failure, unspecified SNOMED: 85738885 (7) Cirrhosis ICD Codes: K74.60 - Unspecified cirrhosis of liver SNOMED: 62114799 (8) Cardiomyopathy due to hypertension, with heart failure ICD Codes: I11.0 - Cardiomyopathy due to hypertension, with heart failure; I42.9 - Cardiomyopathy, unspecified SNOMED: 47985203 (9) Lumbar spondylosis ICD Codes: M47.816 - Spondylosis without myelopathy or radiculopathy, lumbar region SNOMED: 794843816 Status: progressing Assessment/Plan chest pain r/o acs afebrile no acute events cirrhosis vitals stable Subjective ROS Limited/Unobtainable: Yes Allergies: Coded Allergies: HYDROMORPHONE (Verified Allergy, Unknown, 12/28/10) Objective Last 24 Hour Vital Signs Date Time Temp Pulse Resp B/P Pulse Ox O2 Delivery O2 Flow Rate FiO2 12/09/16 16:00 97.9 62 18 117/80 99 Room Air 12/09/16 12:00 60 12/09/16 11:59 97.7 61 18 132/96 97 Room Air 12/09/16 08:00 60 12/09/16 07:56 97.9 62 18 114/76 96 Room Air 12/09/16 07:52 60 18 Room Air 21 12/09/16 04:00 97.7 60 20 94/58 99 Room Air 12/09/16 04:00 60 12/09/16 00:00 97.4 60 19 99/60 97 Room Air 12/09/16 00:00 60 12/08/16 21:05 60 114/79 12/08/16 20:00 62 12/08/16 20:00 98.4 60 20 114/79 98 Room Air 12/08/16 19:23 21 12/08/16 19:23 62 18 99 21 12/08/16 19:10 61 18 98 Room Air 21 12/08/16 19:09 61 18 98 Room Air 21 Intake and Output 12/08/16 12/09/16 19:00 07:00 Intake Total 960 ml 480 ml Output Total 950 ml 800 ml Balance 10 ml -320 ml Intake Oral 850 ml 480 ml IV Total 110 ml Output Urine Total 950 ml 800 ml # Voids 2 # Bowel Movements 2 Laboratory Tests 12/08/16 18:10: Hepatitis C Antibody [Pending], Hepatitis C RNA (PCR) IUs/ml [Pending], Hepatitis C RNA (PCR) log IUs/ml [Pending], Hepatitis C Genotype [Pending] 12/09/16 06:20: White Blood Count 6.0, Red Blood Count 3.42L, Hemoglobin 11.8L, Hematocrit 36.1L , Mean Corpuscular Volume 105H, Mean Corpuscular Hemoglobin 34.6H, Mean Corpuscular Hemoglobin Concent 32.8, Red Cell Distribution Width 15.1H, Platelet Count 169, Mean Platelet Volume 7.4, Neutrophils (%) (Auto) , Lymphocytes (%) (Auto) , Monocytes (%) (Auto) , Eosinophils (%) (Auto) , Basophils (%) (Auto) , Differential Total Cells Counted 100, Neutrophils % ( Manual) 80H, Lymphocytes % (Manual) 11L, Monocytes % (Manual) 8, Eosinophils % ( Manual) 1, Basophils % (Manual) 0, Band Neutrophils 0, Platelet Estimate Adequate, Platelet Morphology Normal, Anisocytosis 1+, Macrocytosis 1+, Prothrombin Time 12.9H, Prothromb Time International Ratio 1.2H, Sodium Level 141, Potassium Level 3.6, Chloride Level 97L, Carbon Dioxide Level 32H, Anion Gap 12, Blood Urea Nitrogen 17, Creatinine 1.2, Estimat Glomerular Filtration Rate > 60, Glucose Level 128H, Calcium Level 9.1, Amylase Level 82, Lipase 16, Vitamin B12 Level 1226H, Folate [Pending], Thyroid Stimulating Hormone (TSH) 22.590H Height (Feet): 6 Height (Inches): 3.00 Weight (Pounds): 153 EENT: PERRL/EOMI Neck: supple Cardiovascular: normal rate Respiratory/Chest: lungs clear Winston Jin MD Dec 09, 2016 16:14
[2016-12-09] MEDS ORDERED: Warfarin Sodium 10mg ORAL ONE (17:00)
--- NOTE | 2016-12-09 18:36 | Cardiac Electrophysiology PN ---
Assessment/Plan Assessment/Plan 1. Exacerbation of congestive heart failure with ejection fraction of only 20% at [facility] in July 2016. Continue digoxin, Coreg, Lasix, Aldactone, and lisinopril 5 mg daily. 2. History of hypertension. Better with Coreg 25 mg b.i.d. and lisinopril 5 mg and Aldactone . 3. Status post [place] [place] ICD generator change with battery longevity for about 5 years. 4. History of paroxysmal atrial fibrillation, status post radioablation of 4 pulmonary veins by me at [facility] in July of 2016.On Coumadin per Rx 5. History of hepatitis C and ascites. 6. Hypothyroidism. 7. Abdominal pain. Follow up with Gastroenterology. EDMAR RN Subjective Subjective No further VT.Comfortable in NAD. Objective Last 24 Hour Vital Signs Date Time Temp Pulse Resp B/P Pulse Ox O2 Delivery O2 Flow Rate FiO2 12/09/16 16:00 97.9 62 18 117/80 99 Room Air 12/09/16 15:46 66 12/09/16 12:00 60 12/09/16 11:59 97.7 61 18 132/96 97 Room Air 12/09/16 08:00 60 12/09/16 07:56 97.9 62 18 114/76 96 Room Air 12/09/16 07:52 60 18 Room Air 21 12/09/16 04:00 97.7 60 20 94/58 99 Room Air 12/09/16 04:00 60 12/09/16 00:00 97.4 60 19 99/60 97 Room Air 12/09/16 00:00 60 12/08/16 21:05 60 114/79 12/08/16 20:00 62 12/08/16 20:00 98.4 60 20 114/79 98 Room Air 12/08/16 19:23 21 12/08/16 19:23 62 18 99 21 12/08/16 19:10 61 18 98 Room Air 21 12/08/16 19:09 61 18 98 Room Air 21 Intake and Output 12/08/16 12/09/16 19:00 07:00 Intake Total 960 ml 480 ml Output Total 950 ml 800 ml Balance 10 ml -320 ml Intake Oral 850 ml 480 ml IV Total 110 ml Output Urine Total 950 ml 800 ml # Voids 2 # Bowel Movements 2 Laboratory Tests Test 12/09/16 06:20 White Blood Count 6.0 K/UL (4.8-10.8) Red Blood Count 3.42 M/UL (4.70-6.10) L Hemoglobin 11.8 G/DL (14.2-18.0) L Hematocrit 36.1 % (42.0-52.0) L Mean Corpuscular Volume 105 FL (80-99) H Mean Corpuscular Hemoglobin 34.6 PG (27.0-31.0) H Mean Corpuscular Hemoglobin Concent 32.8 G/DL (32.0-36.0) Red Cell Distribution Width 15.1 % (11.6-14.8) H Platelet Count 169 K/UL (150-450) Mean Platelet Volume 7.4 FL (6.5-10.1) Neutrophils (%) (Auto) % (45.0-75.0) Lymphocytes (%) (Auto) % (20.0-45.0) Monocytes (%) (Auto) % (1.0-10.0) Eosinophils (%) (Auto) % (0.0-3.0) Basophils (%) (Auto) % (0.0-2.0) Differential Total Cells Counted 100 Neutrophils % (Manual) 80 % (45-75) H Lymphocytes % (Manual) 11 % (20-45) L Monocytes % (Manual) 8 % (1-10) Eosinophils % (Manual) 1 % (0-3) Basophils % (Manual) 0 % (0-2) Band Neutrophils 0 % (0-8) Platelet Estimate Adequate Platelet Morphology Normal Anisocytosis 1+ Macrocytosis 1+ Prothrombin Time 12.9 SEC (9.30-11.50) H Prothromb Time International Ratio 1.2 (0.9-1.1) H Sodium Level 141 mEQ/L (135-145) Potassium Level 3.6 mEQ/L (3.4-4.9) Chloride Level 97 mEQ/L (98-107) L Carbon Dioxide Level 32 mEQ/L (20-30) H Anion Gap 12 (5-15) Blood Urea Nitrogen 17 mg/dL (7-23) Creatinine 1.2 mg/dL (0.7-1.2) Estimat Glomerular Filtration Rate > 60 mL/min (>60) Glucose Level 128 mg/dL (74-106) H Calcium Level 9.1 mg/dL (8.6-10.2) Amylase Level 82 U/L (10-110) Lipase 16 U/L (< 60) Vitamin B12 Level 1226 pg/mL (211-946) H Folate Pending Thyroid Stimulating Hormone (TSH) 22.590 uIU/mL (0.300-4.500) Microbiology Date/Time Source Procedure Growth Status 12/07/16 15:10 Blood Blood Culture - Preliminary NO GROWTH AFTER 24 HOURS Resulted 12/07/16 15:00 Blood Blood Culture - Preliminary NO GROWTH AFTER 24 HOURS Resulted 12/07/16 13:33 Urine,Clean Catch Urine Culture - Preliminary Mixed Gram Positive Organism Resulted Objective HEAD AND NECK: No JVD. LUNGS: Decreased breath sounds. CARDIOVASCULAR: Regular S1 and S2 with no gallop or murmur.ICD left subclavian intact ABDOMEN: Soft and nontender. EXTREMITIES: 1+ pitting edema. ANTHONY MUÑOZ Dec 09, 2016 18:36
--- NOTE | 2016-12-09 19:29 | Cardiology Report ---
APPROVED REPORT EXAM: Two-dimensional and M-mode echocardiogram with Doppler and color Doppler. INDICATION Congestive Heart Failure M-Mode DIMENSIONS IVSd0.8 (0.7-1.1cm)Left Atrium (MM)4.7 (1.6-4.0cm) LVDd6.6 (3.5-5.6cm)Aortic Root2.9 (2.0-3.7cm) PWd0.9 (0.7-1.1cm)Aortic Cusp Exc.1.9 (1.5-2.0cm) LVDs5.7 (2.5-4.0cm) PWs1.0 cm Severe left ventricular enlargement. Global left ventricular akinesisa except the posterior wall which is hypokinetic. Ischemic cardiomyopathy cannot be excluded. Left ventricular ejection fraction estimated to be 20-25%. Left ventricular apical wall thrombus cannot be entirely excluded. No evidence of left ventricular hypertrophy. No evidence of pericardial fat or effusion. Right cardiac chamber sizes are within normal limits. Severe left atrial enlargement. Focal aortic valve sclerosis with adequate cusp excursion Thickened mitral valve leaflets with normal excursion. Mitral annulus and aortic root calcification. Pulmonic valve not well visualized. Normal tricuspid valve structure. IVC dilated at 2.5cm with no physiological collapse. RA pressure of 20mmHg. Probable pacemaker wire present in the right side chambers. A color flow and spectral Doppler study was performed and revealed: No aortic regurgitation. Severe mitral regurgitation. Mitral inflow velocities indicates possible pseudo normalization pattern implying significant left ventricular diastolic dysfunction. Trace tricuspid regurgitation. Tricuspid systolic velocities suggests peak right ventricular systolic pressure of 49 mmHg Consistent with moderate pulmonary hypertension. Pulmonic regurgitation present.
[2016-12-09 20:00] VITALS: BP 130/95
--- NOTE | 2016-12-09 20:09 | Cardiology Report ---
APPROVED REPORT EKG Measurement Heart [id number] MI [id number] Sinus rhythm with 1st degree AV block Possible Left atrial enlargement Cannot rule out Anterior infarct, age undetermined Abnormal ECG
[2016-12-09] MEDS: Carvedilol 25mg Tab ORAL SCH (21:00)
[2016-12-09] MEDS: Atorvastatin 80mg tab ORAL SCH (21:00)
[2016-12-10] VITALS: BP 133/91
--- NOTE | 2016-12-10 01:31 | Consultation ---
DATE OF CONSULTATION: 12/09/2016 NOTE: POOR AUDIO QUALITY HEMATOLOGY/ONCOLOGY CONSULTATION CONSULTING PHYSICIAN: Brandon Joyce M.D. REQUESTING PHYSICIAN: Winston Jin M.D. REASON FOR CONSULTATION: Evaluation of leukopenia. IDENTIFICATION: Dear Dr. Annabel Montero, The patient is a pleasant 61-year-old male with a past medical history, which is significant for hepatitis C, status post treatment; ascites, status post thoracentesis about a year ago, history of hypertension, defibrillator placement, has been admitted multiple times in the past, at this time presents with shortness of breath as well as GI service and Cardiology consult for further evaluation and treatment. PAST MEDICAL HISTORY: Hepatitis C, ascites, status post thoracentesis, history of hypertension, defibrillator placement, paroxysmal atrial fibrillation, gastritis, and hypothyroidism. PAST SURGICAL HISTORY: Defibrillator placement. ALLERGIES: Hydromorphone. MEDICATIONS: Have been reviewed. SOCIAL HISTORY: Denies any alcohol, tobacco, or illicit drug use. FAMILY HISTORY: Noncontributory. REVIEW OF SYSTEMS: Constitutional: No fever, chills, or night sweats. Skin: No rashes, lumps, or itching. HEENT: No headache or vision changes. Breasts: No lumps, pain, or discharge. Pulmonary: No cough, sputum, or shortness of breath . Cardiovascular: No chest pain, tightness, or palpitations at this moment. PHYSICAL EXAMINATION: GENERAL: The patient is in no distress. VITAL SIGNS: Temperature is 98 degrees Fahrenheit, pulse 66, respiratory rate 12, and blood pressure 120/85. PULMONARY: Decreased breath sounds. CARDIOVASCULAR: Regular rate. No S3 or S4. GASTROINTESTINAL: Abdomen is soft, nontender, and nondistended. EXTREMITIES: A 1+ edema. LABORATORY AND DIAGNOSTIC DATA: WBC 6, hemoglobin 11.8, hematocrit 36, MCV 105,000; and platelet count of 159,000. INR 1.2. Chemistry, BUN of 17 and creatinine 1.2. B12 1200. Hepatitis C viral load pending. ASSESSMENT: 1. Anemia, secondary to chronic disease. 2. Microcytosis. 3. underlying liver cirrhosis. 4. Hepatitis C, status post treatment. 5. Coagulopathy. 6. Hepatitis C and liver cirrhosis. 7. Hypertension history, will be managed by Cardiology with antihypertensives. 8. Exacerbation of congestive heart failure. Continue digoxin, Lasix Cardiology service. 9. Hypothyroidism. 10. GI service. 11. Ventricular tachycardia, no further . 12. Discussed with staff. Thank you, Dr. Annabel Montero, for this kind referral. Please do not hesitate to contact me if you have any further questions. Brandon Joyce M.D. DR: JONO JOB#: [id number] CC:
[2016-12-10 04:00] VITALS: BP 118/81
[2016-12-10 07:09] LABS: INR 1.2 (0.9-1.1); PROTHROMBIN TIME 12.2 SEC (9.30-11.50)
[2016-12-10 07:16] LABS: ANION GAP 14 (5-15); CALCIUM 9.1 mg/dL (8.6-10.2); CARBON DIOXIDE 29 mEQ/L (20-30); CHLORIDE 95 mEQ/L (98-107); CREATININE 1.1 mg/dL (0.7-1.2); GLOMERULAR FILTRATION RATE > 60 mL/min (>60); HEMOLYSIS 2; POTASSIUM 3.6 mEQ/L (3.4-4.9); SODIUM 138 mEQ/L (135-145)
[2016-12-10 08:07] VITALS: BP 118/82
[2016-12-10] MEDS ORDERED: Digoxin 0.5mg/2ml Inj IVP SCH (09:00)
[2016-12-10] MEDS: Carvedilol 25mg Tab ORAL SCH ×2 (09:25→23:34)
[2016-12-10] MEDS: Spironolactone 50mg tab ORAL SCH (09:25)
[2016-12-10] MEDS: Aspirin EC 81mg tab ORAL SCH (09:25)
[2016-12-10] MEDS: Lisinopril 2.5mg tab ORAL SCH (09:26)
[2016-12-10 12:18] VITALS: BP 123/84
--- NOTE | 2016-12-10 12:48 | Infectious Diseases Prog Note ---
Assessment/Plan Problems: (1) UTI (urinary tract infection) Assessment & Plan: urine culture showed less than 10 000 colonies of mixed gram positive organisms , most likely contaminant , off ceftriaxon, monitor clinically for now (2) Hepatitis C Assessment & Plan: await viral load and genotype, recommend treatment with GI as an out patient (3) ACS (acute coronary syndrome) Assessment & Plan: continue tele monitor , cardiology is following , stress test is pending (4) CHF (congestive heart failure) Assessment & Plan: continue diuretics and cardiac meds (5) Cirrhosis Assessment & Plan: suspect due to HCV, continue supportive care , follow up with GI (6) Chest pain Assessment & Plan: improved , rule out ACS, continue tele monitor , cardiology is following Subjective Constitutional: Reports: no symptoms HEENT: Reports: no symptoms Respiratory: Reports: no symptoms Breasts: Reports: no symptoms Cardiovascular: Reports: no symptoms Gastrointestinal/Abdominal: Reports: no symptoms Genitourinary: Reports: no symptoms Neurologic: Reports: no symptoms Psychiatric: Reports: no symptoms Skin: Reports: no symptoms Endocrine: Reports: no symptoms Hematologic: Reports: no symptoms Allergies: Coded Allergies: HYDROMORPHONE (Verified Allergy, Unknown, 12/28/10) Objective Vital Signs Last 24 Hour Vital Signs Date Time Temp Pulse Resp B/P Pulse Ox O2 Delivery O2 Flow Rate FiO2 12/10/16 12:18 97.7 73 18 123/84 99 Room Air 12/10/16 12:00 63 12/10/16 09:26 118/82 12/10/16 09:25 74 118/82 12/10/16 09:22 74 12/10/16 08:07 97.0 74 18 118/82 98 Room Air 12/10/16 08:00 74 12/10/16 07:32 90 20 Room Air 12/10/16 04:00 61 12/10/16 04:00 97.8 75 20 118/81 98 Room Air 12/10/16 00:00 97.3 99 20 133/91 98 Room Air 12/10/16 00:00 61 12/09/16 21:00 66 130/95 12/09/16 20:00 65 12/09/16 20:00 98.1 66 20 130/95 97 Room Air 12/09/16 19:30 64 20 Room Air 21 12/09/16 16:00 97.9 62 18 117/80 99 Room Air 12/09/16 15:46 66 Height (Feet): 6 Height (Inches): 3.00 Weight (Pounds): 151 General Appearance: WD/WN, no acute distress HEENT: normocephalic, atraumatic, anicteric, mucous membranes moist Respiratory/Chest: chest wall non-tender, lungs clear, normal breath sounds, no respiratory distress, no accessory muscle use Cardiovascular: normal peripheral pulses, normal rate, regular rhythm, no gallop/murmur, no JVD Abdomen: normal bowel sounds, soft, non tender, no organomegaly, non distended , no mass, no scars Extremities: no cyanosis, no clubbing Skin: no rash, no lesions Microbiology Date/Time Source Procedure Growth Status 12/07/16 15:10 Blood Blood Culture - Preliminary NO GROWTH AFTER 48 HOURS Resulted 12/07/16 15:00 Blood Blood Culture - Preliminary NO GROWTH AFTER 48 HOURS Resulted 12/07/16 13:33 Urine,Clean Catch Urine Culture - Final Mixed Gram Positive Organism Complete Laboratory Tests Test 12/10/16 05:10 Prothrombin Time 12.2 SEC (9.30-11.50) H Prothromb Time International Ratio 1.2 (0.9-1.1) H Sodium Level 138 mEQ/L (135-145) Potassium Level 3.6 mEQ/L (3.4-4.9) Chloride Level 95 mEQ/L (98-107) L Carbon Dioxide Level 29 mEQ/L (20-30) Anion Gap 14 (5-15) Blood Urea Nitrogen 17 mg/dL (7-23) Creatinine 1.1 mg/dL (0.7-1.2) Estimat Glomerular Filtration Rate > 60 mL/min (>60) Glucose Level 107 mg/dL (74-106) H Calcium Level 9.1 mg/dL (8.6-10.2) Carcinoembryonic Antigen 2.0 ng/mL Current Medications Medications (Trade) Dose Ordered Sig/Allyn Route PRN Reason Start Time Stop Time Status Last Admin Dose Admin Albuterol/ Ipratropium (DuoNeb 0.5-3(2.5)mg/3ml) 3 ml Q6H PRN HHN Shortness of Breath 12/07/16 15:45 12/12/16 15:44 12/08/16 19:05 Aspirin (Ecotrin) 81 mg DAILY ORAL 12/08/16 09:00 01/07/17 08:59 12/10/16 09:25 Atorvastatin Calcium (Lipitor) 80 mg BEDTIME ORAL 12/07/16 21:00 01/06/17 20:59 12/09/16 21:00 Carvedilol (Coreg) 25 mg EVERY 12 HOURS ORAL 12/09/16 21:00 01/08/17 20:59 12/10/16 09:25 Ceftriaxone Sodium/Dextrose (Rocephin/D5W) 55 ml @ 110 mls/hr Q24H IVPB 12/08/16 13:00 12/15/16 12:59 12/09/16 14:02 Digoxin (Lanoxin) 0.125 mg DAILY IVP 12/10/16 09:00 01/09/17 08:59 12/10/16 09:22 Furosemide (Lasix) 40 mg EVERY 12 HOURS IV 12/09/16 21:00 01/08/17 20:59 12/10/16 09:22 Gabapentin (Neurontin) 100 mg BID ORAL 12/07/16 18:00 01/06/17 17:59 12/10/16 09:25 Levothyroxine Sodium (Synthroid) 88 mcg ACBREAKFAST ORAL 12/08/16 06:30 01/07/17 06:29 12/10/16 05:50 Lisinopril (Zestril) 5 mg DAILY ORAL 12/08/16 09:00 01/07/17 08:59 12/10/16 09:26 Metoclopramide HCl (Reglan) 5 mg QID ORAL 12/07/16 17:00 01/06/17 16:59 12/10/16 09:25 Morphine HCl (Morphine IR) 15 mg BIDPRN PRN ORAL For Pain 12/07/16 15:45 12/14/16 15:44 12/09/16 13:30 Multivitamins (Multivitamins) 1 tab DAILY ORAL 12/08/16 09:00 01/07/17 08:59 12/10/16 09:25 Pantoprazole (Protonix) 40 mg DAILY ORAL 12/07/16 17:00 01/06/17 16:59 12/10/16 09:25 Spironolactone (Aldactone) 50 mg DAILY ORAL 12/10/16 09:00 01/09/17 08:59 12/10/16 09:25 Warfarin Sodium (Coumadin per pharmacy) 1 ea DAILY PRN MISC Per rx protocol 12/07/16 14:30 01/06/17 14:29 Warfarin Sodium/ Warfarin Sodium (Coumadin/ Coumadin) 12 mg COUMADIN ONCE ORAL 12/10/16 17:00 12/10/16 17:01 Zolpidem Tartrate (Ambien) 5 mg HSPRN PRN ORAL Insomnia 12/07/16 15:45 01/06/17 15:44 12/08/16 23:14 Maxine Alexander M.D. Dec 10, 2016 12:48
--- NOTE | 2016-12-10 14:17 | General Progress Note ---
Assessment/Plan Assessment/Plan ASSESSMENT/RECS: #. Anemia, secondary to chronic disease. H/H is stable --> hgb goal is >7, anemia w/u has been reviewed #. Macrocytosis. MCV is elevated likely due to splenomegaly, hx of potential alcohol abuse, closely monitor #. Leukopenia due to splenomegaly with underlying liver cirrhosis. #. Hepatitis C, status post treatment. #. Coagulopathy. INR is stable, 1.2 #. Hepatitis C and in addition to liver cirrhosis. #. Hypertension history, will be managed by Cardiology with antihypertensives. #. Exacerbation of congestive heart failure. Continue digoxin, Lasix as per cards #. Hypothyroidism. #. Vtach hx, management per cards Subjective Constitutional: Reports: no symptoms HEENT: Reports: no symptoms Cardiovascular: Reports: no symptoms Respiratory: Reports: no symptoms Gastrointestinal/Abdominal: Reports: no symptoms Genitourinary: Reports: no symptoms Neurologic/Psychiatric: Reports: no symptoms Hematologic/Lymphatic: Reports: anemia Allergies: Coded Allergies: HYDROMORPHONE (Verified Allergy, Unknown, 12/28/10) Subjective sitting up in bed, without complaints, no f/c Objective Last 24 Hour Vital Signs Date Time Temp Pulse Resp B/P Pulse Ox O2 Delivery O2 Flow Rate FiO2 12/10/16 12:18 97.7 73 18 123/84 99 Room Air 12/10/16 12:00 63 12/10/16 09:26 118/82 12/10/16 09:25 74 118/82 12/10/16 09:22 74 12/10/16 08:07 97.0 74 18 118/82 98 Room Air 12/10/16 08:00 74 12/10/16 07:32 90 20 Room Air 12/10/16 04:00 61 12/10/16 04:00 97.8 75 20 118/81 98 Room Air 12/10/16 00:00 97.3 99 20 133/91 98 Room Air 12/10/16 00:00 61 12/09/16 21:00 66 130/95 12/09/16 20:00 65 12/09/16 20:00 98.1 66 20 130/95 97 Room Air 12/09/16 19:30 64 20 Room Air 12/09/16 16:00 97.9 62 18 117/80 99 Room Air 12/09/16 15:46 66 Intake and Output 6/26/17 6/27/17 19:00 07:00 Intake Total 415 ml Output Total 300 ml 300 ml Balance 115 ml -300 ml Intake Oral 360 ml IV Total 55 ml Output Urine Total 300 ml 300 ml # Voids 2 # Bowel Movements 1 1 Laboratory Tests 12/10/16 05:10: Prothrombin Time 12.2H, Prothromb Time International Ratio 1.2H, Sodium Level 138, Potassium Level 3.6, Chloride Level 95L, Carbon Dioxide Level 29, Anion Gap 14, Blood Urea Nitrogen 17, Creatinine 1.1, Estimat Glomerular Filtration Rate > 60, Glucose Level 107H, Calcium Level 9.1, Carcinoembryonic Antigen 2.0 Height (Feet): 6 Height (Inches): 3.00 Weight (Pounds): 151 General Appearance: alert EENT: PERRL/EOMI Neck: normal alignment Cardiovascular: normal peripheral pulses Respiratory/Chest: no respiratory distress Abdomen: non tender Neurologic: alert Skin: warm/dry Brandon Joyce Dec 10, 2016 14:17
--- NOTE | 2016-12-10 14:41 | Diagnostic Imaging Report ---
APPROVED REPORT CPT Code: 70210 Present Symptoms Comments: R/O DVT BILATERAL: Imaging reveals a patent deep venous system bilaterally. There is no evidence of thrombus within the femoral, popliteal segments. The greater saphenous veins are also within normal limits. Doppler indicates normal spontaneous flow within these segments.
--- NOTE | 2016-12-10 14:51 | General Progress Note ---
Assessment/Plan Problem List: (1) Lumbar radiculopathy ICD Codes: M54.16 - Lumbar radiculopathy SNOMED: 763050633 (2) Colon polyps ICD Codes: K63.5 - Polyp of colon SNOMED: 40315953 (3) Abdominal pain ICD Codes: R10.9 - Abdominal pain SNOMED: 44870394 Qualifiers: Qualified Codes: R10.30 - Lower abdominal pain, unspecified (4) Cirrhosis ICD Codes: K74.60 - Cirrhosis SNOMED: 45237665 (5) Chest pain ICD Codes: R07.9 - Chest pain, unspecified SNOMED: 12965604 Qualifiers: Qualified Codes: R07.9 - Chest pain, unspecified (6) CHF (congestive heart failure) ICD Codes: I50.9 - Heart failure, unspecified SNOMED: 35868453 (7) Cirrhosis ICD Codes: K74.60 - Unspecified cirrhosis of liver SNOMED: 98935255 (8) Cardiomyopathy due to hypertension, with heart failure ICD Codes: I11.0 - Cardiomyopathy due to hypertension, with heart failure; I42.9 - Cardiomyopathy, unspecified SNOMED: 32559065 (9) Lumbar spondylosis ICD Codes: M47.816 - Spondylosis without myelopathy or radiculopathy, lumbar region SNOMED: 792412429 Status: progressing Assessment/Plan chest pain r/o acs chf dyspnea neg trop needs clearance Subjective ROS Limited/Unobtainable: Yes Allergies: Coded Allergies: HYDROMORPHONE (Verified Allergy, Unknown, 12/28/10) Objective Last 24 Hour Vital Signs Date Time Temp Pulse Resp B/P Pulse Ox O2 Delivery O2 Flow Rate FiO2 12/10/16 12:18 97.7 73 18 123/84 99 Room Air 12/10/16 12:00 63 12/10/16 09:26 118/82 12/10/16 09:25 74 118/82 12/10/16 09:22 74 12/10/16 08:07 97.0 74 18 118/82 98 Room Air 12/10/16 08:00 74 12/10/16 07:32 90 20 Room Air 21 12/10/16 04:00 61 12/10/16 04:00 97.8 75 20 118/81 98 Room Air 12/10/16 00:00 97.3 99 20 133/91 98 Room Air 12/10/16 00:00 61 12/09/16 21:00 66 130/95 12/09/16 20:00 65 12/09/16 20:00 98.1 66 20 130/95 97 Room Air 12/09/16 19:30 64 20 Room Air 21 12/09/16 16:00 97.9 62 18 117/80 99 Room Air 12/09/16 15:46 66 Intake and Output 12/09/16 12/10/16 19:00 07:00 Intake Total 415 ml Output Total 300 ml 300 ml Balance 115 ml -300 ml Intake Oral 360 ml IV Total 55 ml Output Urine Total 300 ml 300 ml # Voids 2 # Bowel Movements 1 1 Laboratory Tests 12/10/16 05:10: Prothrombin Time 12.2H, Prothromb Time International Ratio 1.2H, Sodium Level 138, Potassium Level 3.6, Chloride Level 95L, Carbon Dioxide Level 29, Anion Gap 14, Blood Urea Nitrogen 17, Creatinine 1.1, Estimat Glomerular Filtration Rate > 60, Glucose Level 107H, Calcium Level 9.1, Carcinoembryonic Antigen 2.0 Height (Feet): 6 Height (Inches): 3.00 Weight (Pounds): 151 General Appearance: confused Cardiovascular: normal rate Respiratory/Chest: lungs clear Abdomen: soft Winston Jin MD Dec 10, 2016 14:51
--- NOTE | 2016-12-10 15:19 | GI Progress Note ---
Assessment/Plan Problems: (1) Cirrhosis ICD Codes: K74.60 - Unspecified cirrhosis of liver SNOMED: 39784249 (2) Ascites ICD Codes: R18.8 - Ascites SNOMED: 923909049 Qualifiers: Qualified Codes: R18.8 - Other ascites (3) Hepatitis C ICD Codes: B19.20 - Hepatitis C SNOMED: 91115242 (4) Abdominal pain ICD Codes: R10.9 - Abdominal pain SNOMED: 32901417 Qualifiers: Qualified Codes: R10.30 - Lower abdominal pain, unspecified Status: stable Status Narrative Discussed with Dr. Ryan. Assessment/Plan hx of Hep C s/p tx APCT reviewed >> moderate ascites s/p colonoscopy with one polyp 06/26/16 okay for DC per GI standpoint fu Hep C quant cont Lasix Aldactone low sodium diet ppi reglan fu cardiology recs fu labs Subjective Gastrointestinal/Abdominal: Reports: no symptoms Subjective no symptoms ready to be discharged Objective Last 24 Hour Vital Signs Date Time Temp Pulse Resp B/P Pulse Ox O2 Delivery O2 Flow Rate FiO2 12/10/16 12:18 97.7 73 18 123/84 99 Room Air 12/10/16 12:00 63 12/10/16 09:26 118/82 12/10/16 09:25 74 118/82 12/10/16 09:22 74 12/10/16 08:07 97.0 74 18 118/82 98 Room Air 12/10/16 08:00 74 12/10/16 07:32 90 20 Room Air 12/10/16 04:00 61 12/10/16 04:00 97.8 75 20 118/81 98 Room Air 12/10/16 00:00 97.3 99 20 133/91 98 Room Air 12/10/16 00:00 61 12/09/16 21:00 66 130/95 12/09/16 20:00 65 12/09/16 20:00 98.1 66 20 130/95 97 Room Air 12/09/16 19:30 64 20 Room Air 21 12/09/16 16:00 97.9 62 18 117/80 99 Room Air 12/09/16 15:46 66 Intake and Output 12/09/16 12/10/16 19:00 07:00 Intake Total 415 ml Output Total 300 ml 300 ml Balance 115 ml -300 ml Intake Oral 360 ml IV Total 55 ml Output Urine Total 300 ml 300 ml # Voids 2 # Bowel Movements 1 1 Laboratory Tests Test 12/10/16 05:10 Prothrombin Time 12.2 SEC (9.30-11.50) H Prothromb Time International Ratio 1.2 (0.9-1.1) H Sodium Level 138 mEQ/L (135-145) Potassium Level 3.6 mEQ/L (3.4-4.9) Chloride Level 95 mEQ/L (98-107) L Carbon Dioxide Level 29 mEQ/L (20-30) Anion Gap 14 (5-15) Blood Urea Nitrogen 17 mg/dL (7-23) Creatinine 1.1 mg/dL (0.7-1.2) Estimat Glomerular Filtration Rate > 60 mL/min (>60) Glucose Level 107 mg/dL (74-106) H Calcium Level 9.1 mg/dL (8.6-10.2) Carcinoembryonic Antigen 2.0 ng/mL Height (Feet): 6 Height (Inches): 3.00 Weight (Pounds): 151 General Appearance: no apparent distress, alert, thin Cardiovascular: normal rate Respiratory/Chest: normal breath sounds, no respiratory distress Abdominal Exam: normal bowel sounds, non tender, soft Extremities: normal range of motion Chanel Bird N.P. Dec 10, 2016 15:19
[2016-12-10 16:02] VITALS: BP 108/64
--- NOTE | 2016-12-10 16:32 | Pulmonology Progress Note ---
Assessment/Plan Problems: (1) ACS (acute coronary syndrome) (2) EF < 20% (3) Cardiomyopathy due to hypertension, with heart failure (4) Hypothyroidism (5) Lumbar spondylosis (6) ICD (implantable cardioverter-defibrillator) in place (7) Right-sided heart failure (8) Cirrhosis (9) Ascites Assessment/Plan improving titrate fio2 adjust cardiac meds acute [facility] ruled out f/u cardio recommendations endo to adjust synthyroid dosing med/surg when ok with cardio Subjective ROS Limited/Unobtainable: No Constitutional: Reports: no symptoms HEENT: Repors: no symptoms Respiratory: Reports: no symptoms Allergies: Coded Allergies: HYDROMORPHONE (Verified Allergy, Unknown, 12/28/10) Objective Last 24 Hour Vital Signs Date Time Temp Pulse Resp B/P Pulse Ox O2 Delivery O2 Flow Rate FiO2 12/10/16 16:02 97.5 61 18 108/64 96 Room Air 12/10/16 16:00 60 12/10/16 12:18 97.7 73 18 123/84 99 Room Air 12/10/16 12:00 63 12/10/16 09:26 118/82 12/10/16 09:25 74 118/82 12/10/16 09:22 74 12/10/16 08:07 97.0 74 18 118/82 98 Room Air 12/10/16 08:00 74 12/10/16 07:32 90 20 Room Air 21 12/10/16 04:00 61 12/10/16 04:00 97.8 75 20 118/81 98 Room Air 12/10/16 00:00 97.3 99 20 133/91 98 Room Air 12/10/16 00:00 61 12/09/16 21:00 66 130/95 12/09/16 20:00 65 12/09/16 20:00 98.1 66 20 130/95 97 Room Air 12/09/16 19:30 64 20 Room Air 21 Intake and Output 12/09/16 12/10/16 19:00 07:00 Intake Total 415 ml Output Total 300 ml 300 ml Balance 115 ml -300 ml Intake Oral 360 ml IV Total 55 ml Output Urine Total 300 ml 300 ml # Voids 2 # Bowel Movements 1 1 Objective General Appearance: WD/WN HEENT: normocephalic Respiratory/Chest: chest wall non-tender, lungs clear Cardiovascular: normal peripheral pulses, normal rate Abdomen: normal bowel sounds, soft, non tender Extremities: no cyanosis, other - effusion in both knees Skin: no rash Laboratory Tests 12/10/16 05:10: Prothrombin Time 12.2H, Prothromb Time International Ratio 1.2H, Sodium Level 138, Potassium Level 3.6, Chloride Level 95L, Carbon Dioxide Level 29, Anion Gap 14, Blood Urea Nitrogen 17, Creatinine 1.1, Estimat Glomerular Filtration Rate > 60, Glucose Level 107H, Calcium Level 9.1, Carcinoembryonic Antigen 2.0 Current Medications Medications (Trade) Dose Ordered Sig/Allyn Route PRN Reason Start Time Stop Time Status Last Admin Dose Admin Albuterol/ Ipratropium (DuoNeb 0.5-3(2.5)mg/3ml) 3 ml Q6H PRN HHN Shortness of Breath 12/07/16 15:45 12/12/16 15:44 12/08/16 19:05 Aspirin (Ecotrin) 81 mg DAILY ORAL 12/08/16 09:00 01/07/17 08:59 12/10/16 09:25 Atorvastatin Calcium (Lipitor) 80 mg BEDTIME ORAL 12/07/16 21:00 01/06/17 20:59 12/09/16 21:00 Carvedilol (Coreg) 25 mg EVERY 12 HOURS ORAL 12/09/16 21:00 01/08/17 20:59 12/10/16 09:25 Digoxin (Lanoxin) 0.125 mg DAILY IVP 12/10/16 09:00 01/09/17 08:59 12/10/16 09:22 Furosemide (Lasix) 40 mg EVERY 12 HOURS IV 12/09/16 21:00 01/08/17 20:59 12/10/16 09:22 Gabapentin (Neurontin) 100 mg BID ORAL 12/07/16 18:00 01/06/17 17:59 12/10/16 09:25 Levothyroxine Sodium (Synthroid) 88 mcg ACBREAKFAST ORAL 12/08/16 06:30 01/07/17 06:29 12/10/16 05:50 Lisinopril (Zestril) 5 mg DAILY ORAL 12/08/16 09:00 01/07/17 08:59 12/10/16 09:26 Metoclopramide HCl (Reglan) 5 mg QID ORAL 12/07/16 17:00 01/06/17 16:59 12/10/16 13:18 Morphine HCl (Morphine IR) 15 mg BIDPRN PRN ORAL For Pain 12/07/16 15:45 12/14/16 15:44 12/09/16 13:30 Multivitamins (Multivitamins) 1 tab DAILY ORAL 12/08/16 09:00 01/07/17 08:59 12/10/16 09:25 Pantoprazole (Protonix) 40 mg DAILY ORAL 12/07/16 17:00 01/06/17 16:59 12/10/16 09:25 Spironolactone (Aldactone) 50 mg DAILY ORAL 12/10/16 09:00 01/09/17 08:59 12/10/16 09:25 Warfarin Sodium (Coumadin per pharmacy) 1 ea DAILY PRN MISC Per rx protocol 12/07/16 14:30 01/06/17 14:29 Warfarin Sodium/ Warfarin Sodium (Coumadin/ Coumadin) 12 mg COUMADIN ONCE ORAL 12/10/16 17:00 12/10/16 17:01 Zolpidem Tartrate (Ambien) 5 mg HSPRN PRN ORAL Insomnia 12/07/16 15:45 01/06/17 15:44 12/08/16 23:14 MONSERRAT TAYLOR Dec 10, 2016 16:32
[2016-12-10] MEDS ORDERED: Warfarin Sod 10 MG, Warfarin Sod 2 MG ORAL ONE ×2 (17:00)
[2016-12-10] MEDS: Morphine IR 15mg tab ORAL PRN ×2 (17:05→18:15)
--- NOTE | 2016-12-10 18:15 | Cardiac Electrophysiology PN ---
Assessment/Plan Status Narrative Severe left ventricular enlargement. Global left ventricular akinesisa except the posterior wall which is hypokinetic. Ischemic cardiomyopathy cannot be excluded. Left ventricular ejection fraction estimated to be 20-25%. Left ventricular apical wall thrombus cannot be entirely excluded. No evidence of left ventricular hypertrophy. No evidence of pericardial fat or effusion. Right cardiac chamber sizes are within normal limits. Severe left atrial enlargement. Focal aortic valve sclerosis with adequate cusp excursion Thickened mitral valve leaflets with normal excursion. Mitral annulus and aortic root calcification. Pulmonic valve not well visualized. Normal tricuspid valve structure. IVC dilated at 2.5cm with no physiological collapse. RA pressure of 20mmHg. Probable pacemaker wire present in the right side chambers. Assessment/Plan 1. Exacerbation of congestive heart failure with ejection fraction of 20% . Continue Coreg, Aldactone and lisinopril 5 mg daily.Change Digoxin and Lasix to po. 2. Hypertension. Better with Coreg 25 mg b.i.d., lisinopril 5 mg, Lasix and Aldactone . 3. Status post [place] [place] ICD generator change with battery longevity for about 5 years. 4. History of paroxysmal atrial fibrillation, status post pulmonary vein ablation by me at [facility] in July of 2016.On Coumadin per Rx 5. History of hepatitis C and ascites. 6. Hypothyroidism. 7. Abdominal pain. Follow up with Gastroenterology. EDMAR RN Subjective Subjective Comfortable in NAD. No arrhythmias overnight. Objective Last 24 Hour Vital Signs Date Time Temp Pulse Resp B/P Pulse Ox O2 Delivery O2 Flow Rate FiO2 12/10/16 16:02 97.5 61 18 108/64 96 Room Air 12/10/16 16:00 60 12/10/16 12:18 97.7 73 18 123/84 99 Room Air 12/10/16 12:00 63 12/10/16 09:26 118/82 12/10/16 09:25 74 118/82 12/10/16 09:22 74 12/10/16 08:07 97.0 74 18 118/82 98 Room Air 12/10/16 08:00 74 12/10/16 07:32 90 20 Room Air 21 12/10/16 04:00 61 12/10/16 04:00 97.8 75 20 118/81 98 Room Air 12/10/16 00:00 97.3 99 20 133/91 98 Room Air 12/10/16 00:00 61 12/09/16 21:00 66 130/95 12/09/16 20:00 65 12/09/16 20:00 98.1 66 20 130/95 97 Room Air 12/09/16 19:30 64 20 Room Air 21 Intake and Output 12/09/16 12/10/16 19:00 07:00 Intake Total 415 ml Output Total 300 ml 300 ml Balance 115 ml -300 ml Intake Oral 360 ml IV Total 55 ml Output Urine Total 300 ml 300 ml # Voids 2 # Bowel Movements 1 1 Laboratory Tests Test 12/10/16 05:10 Prothrombin Time 12.2 SEC (9.30-11.50) H Prothromb Time International Ratio 1.2 (0.9-1.1) H Sodium Level 138 mEQ/L (135-145) Potassium Level 3.6 mEQ/L (3.4-4.9) Chloride Level 95 mEQ/L (98-107) L Carbon Dioxide Level 29 mEQ/L (20-30) Anion Gap 14 (5-15) Blood Urea Nitrogen 17 mg/dL (7-23) Creatinine 1.1 mg/dL (0.7-1.2) Estimat Glomerular Filtration Rate > 60 mL/min (>60) Glucose Level 107 mg/dL (74-106) H Calcium Level 9.1 mg/dL (8.6-10.2) Carcinoembryonic Antigen 2.0 ng/mL Objective HEAD AND NECK: No JVD. LUNGS: Decreased breath sounds. CARDIOVASCULAR: Regular S1 and S2 with no murmur.ICD left subclavian intact ABDOMEN: Soft and nontender. EXTREMITIES: No edema. ANTHONY MUÑOZ Dec 10, 2016 18:15
[2016-12-10 20:00] VITALS: BP 124/79
[2016-12-10] MEDS: Atorvastatin 80mg tab ORAL SCH (23:35)
[2016-12-10] MEDS: Zolpidem 5mg tab ORAL PRN (23:42)
[2016-12-11] VITALS: BP 115/75
[2016-12-11 04:00] VITALS: BP 108/71
[2016-12-11 08:20] VITALS: BP 135/94
[2016-12-11 08:43] LABS: EOSINOPHILS % (AUTO) 2.1 % (0.0-3.0); MEAN CORPUSCULAR HEMOGLOBIN 33.5 PG (27.0-31.0); MEAN CORPUSCULAR HGB CONC 31.7 G/DL (32.0-36.0); MEAN CORPUSCULAR VOLUME 106 FL (80-99); MEAN PLATELET VOLUME 7.6 FL (6.5-10.1); MONOCYTES % (AUTO) 9.3 % (1.0-10.0); NEUTROPHILS % (AUTO) 63.7 % (45.0-75.0); PLATELET COUNT 216 K/UL (150-450); RED BLOOD COUNT 4.07 M/UL (4.70-6.10); WHITE BLOOD COUNT 4.4 K/UL (4.8-10.8)
[2016-12-11 08:47] LABS: INR 1.3 (0.9-1.1); PROTHROMBIN TIME 13.7 SEC (9.30-11.50)
[2016-12-11] MEDS: Spironolactone 50mg tab ORAL SCH (08:54)
[2016-12-11] MEDS: Carvedilol 25mg Tab ORAL SCH (08:56)
[2016-12-11] MEDS: Lisinopril 2.5mg tab ORAL SCH (08:57)
[2016-12-11] MEDS: Aspirin EC 81mg tab ORAL SCH (08:57)
[2016-12-11 09:00] LABS: ANION GAP 13 (5-15); CALCIUM 9.4 mg/dL (8.6-10.2); CARBON DIOXIDE 31 mEQ/L (20-30); CHLORIDE 93 mEQ/L (98-107); CREATININE 1.1 mg/dL (0.7-1.2); GLOMERULAR FILTRATION RATE > 60 mL/min (>60); HEMOLYSIS 6; POTASSIUM 4.5 mEQ/L (3.4-4.9); SODIUM 137 mEQ/L (135-145)
[2016-12-11] MEDS ORDERED: Furosemide 40mg tab ORAL SCH (09:00)
[2016-12-11] MEDS ORDERED: Digoxin 0.125mg tab ORAL SCH (09:00)
[2016-12-11 11:36] VITALS: BP 121/66
--- NOTE | 2016-12-11 11:38 | GI Progress Note ---
Assessment/Plan Problems: (1) Cirrhosis ICD Codes: K74.60 - Unspecified cirrhosis of liver SNOMED: 95792776 (2) Ascites ICD Codes: R18.8 - Ascites SNOMED: 415617121 Qualifiers: Qualified Codes: R18.8 - Other ascites (3) Hepatitis C ICD Codes: B19.20 - Hepatitis C SNOMED: 81795315 (4) Abdominal pain ICD Codes: R10.9 - Abdominal pain SNOMED: 15405407 Qualifiers: Qualified Codes: R10.30 - Lower abdominal pain, unspecified Status: stable Status Narrative Discussed with Dr. Ryan. Assessment/Plan hx of Hep C s/p tx APCT reviewed >> moderate ascites s/p colonoscopy with one polyp 06/26/16 okay for DC per GI standpoint fu Hep C quant cont Lasix Aldactone low sodium diet ppi reglan fu cardiology recs fu labs Subjective Subjective no symptoms ready to be discharged Objective Last 24 Hour Vital Signs Date Time Temp Pulse Resp B/P Pulse Ox O2 Delivery O2 Flow Rate FiO2 12/11/16 11:36 97.8 61 18 121/66 98 Room Air 12/11/16 08:57 135/94 12/11/16 08:56 60 12/11/16 08:56 60 135/94 12/11/16 08:20 97.0 60 18 135/94 97 Room Air 12/11/16 07:52 60 12/11/16 04:00 60 12/11/16 04:00 97.3 61 20 108/71 Room Air 12/11/16 00:00 98.3 60 20 115/75 12/11/16 00:00 60 12/10/16 23:34 60 115/75 12/10/16 20:00 60 12/10/16 20:00 97.5 60 20 124/79 Room Air 12/10/16 19:30 60 20 Room Air 21 12/10/16 19:00 97.5 12/10/16 16:02 97.5 61 18 108/64 96 Room Air 12/10/16 16:00 60 12/10/16 12:18 97.7 73 18 123/84 99 Room Air 12/10/16 12:00 63 Intake and Output 12/10/16 12/11/16 19:00 07:00 Intake Total 480 ml Output Total 450 ml Balance 480 ml -450 ml Intake Oral 480 ml Output Urine Total 450 ml # Voids 3 # Bowel Movements 1 Laboratory Tests Test 12/11/16 08:30 White Blood Count 4.4 K/UL (4.8-10.8) L Red Blood Count 4.07 M/UL (4.70-6.10) L Hemoglobin 13.6 G/DL (14.2-18.0) L Hematocrit 43.0 % (42.0-52.0) Mean Corpuscular Volume 106 FL (80-99) H Mean Corpuscular Hemoglobin 33.5 PG (27.0-31.0) H Mean Corpuscular Hemoglobin Concent 31.7 G/DL (32.0-36.0) L Red Cell Distribution Width 15.0 % (11.6-14.8) H Platelet Count 216 K/UL (150-450) Mean Platelet Volume 7.6 FL (6.5-10.1) Neutrophils (%) (Auto) 63.7 % (45.0-75.0) Lymphocytes (%) (Auto) 23.0 % (20.0-45.0) Monocytes (%) (Auto) 9.3 % (1.0-10.0) Eosinophils (%) (Auto) 2.1 % (0.0-3.0) Basophils (%) (Auto) 2.0 % (0.0-2.0) Prothrombin Time 13.7 SEC (9.30-11.50) H Prothromb Time International Ratio 1.3 (0.9-1.1) H Sodium Level 137 mEQ/L (135-145) Potassium Level 4.5 mEQ/L (3.4-4.9) Chloride Level 93 mEQ/L (98-107) L Carbon Dioxide Level 31 mEQ/L (20-30) H Anion Gap 13 (5-15) Blood Urea Nitrogen 17 mg/dL (7-23) Creatinine 1.1 mg/dL (0.7-1.2) Estimat Glomerular Filtration Rate > 60 mL/min (>60) Glucose Level 91 mg/dL (74-106) Calcium Level 9.4 mg/dL (8.6-10.2) Height (Feet): 6 Height (Inches): 3.00 Weight (Pounds): 151 General Appearance: no apparent distress, alert Cardiovascular: normal rate Respiratory/Chest: normal breath sounds, no respiratory distress Abdominal Exam: normal bowel sounds, non tender, soft Extremities: normal range of motion Chanel Bird N.P. Dec 11, 2016 11:38
--- NOTE | 2016-12-11 11:59 | General Progress Note ---
Assessment/Plan Problem List: (1) Chest pain ICD Codes: R07.9 - Chest pain, unspecified SNOMED: 16981258 Qualifiers: Qualified Codes: R07.9 - Chest pain, unspecified (2) CHF (congestive heart failure) ICD Codes: I50.9 - Heart failure, unspecified SNOMED: 05928196 (3) Cirrhosis ICD Codes: K74.60 - Unspecified cirrhosis of liver SNOMED: 92262901 (4) ACS (acute coronary syndrome) ICD Codes: I24.9 - Acute coronary syndrome SNOMED: 416998552 Status: stable, progressing, tolerating diet Assessment/Plan ot pt diet pain eval cbc bmp am dc plan w hh Subjective Allergies: Coded Allergies: HYDROMORPHONE (Verified Allergy, Unknown, 12/28/10) All Systems: reviewed and negative except above Subjective c/o gen pain Objective Last 24 Hour Vital Signs Date Time Temp Pulse Resp B/P Pulse Ox O2 Delivery O2 Flow Rate FiO2 12/11/16 11:36 97.8 61 18 121/66 98 Room Air 12/11/16 08:57 135/94 12/11/16 08:56 60 12/11/16 08:56 60 135/94 12/11/16 08:20 97.0 60 18 135/94 97 Room Air 12/11/16 07:52 60 12/11/16 04:00 60 12/11/16 04:00 97.3 61 20 108/71 Room Air 12/11/16 00:00 98.3 60 20 115/75 12/11/16 00:00 60 12/10/16 23:34 60 115/75 12/10/16 20:00 60 12/10/16 20:00 97.5 60 20 124/79 Room Air 12/10/16 19:30 60 20 Room Air 21 12/10/16 19:00 97.5 12/10/16 16:02 97.5 61 18 108/64 96 Room Air 12/10/16 16:00 60 12/10/16 12:18 97.7 73 18 123/84 99 Room Air 12/10/16 12:00 63 Intake and Output 12/10/16 12/11/16 19:00 07:00 Intake Total 480 ml Output Total 450 ml Balance 480 ml -450 ml Intake Oral 480 ml Output Urine Total 450 ml # Voids 3 # Bowel Movements 1 Laboratory Tests 12/11/16 08:30: White Blood Count 4.4L, Red Blood Count 4.07L, Hemoglobin 13.6L, Hematocrit 43.0 , Mean Corpuscular Volume 106H, Mean Corpuscular Hemoglobin 33.5H, Mean Corpuscular Hemoglobin Concent 31.7L, Red Cell Distribution Width 15.0H, Platelet Count 216, Mean Platelet Volume 7.6, Neutrophils (%) (Auto) 63.7, Lymphocytes (%) (Auto) 23.0, Monocytes (%) (Auto) 9.3, Eosinophils (%) (Auto) 2.1, Basophils (%) (Auto) 2.0, Prothrombin Time 13.7H, Prothromb Time International Ratio 1.3H, Sodium Level 137, Potassium Level 4.5, Chloride Level 93L, Carbon Dioxide Level 31H, Anion Gap 13, Blood Urea Nitrogen 17, Creatinine 1.1, Estimat Glomerular Filtration Rate > 60, Glucose Level 91, Calcium Level 9.4 Height (Feet): 6 Height (Inches): 3.00 Weight (Pounds): 151 General Appearance: alert EENT: normal ENT inspection Neck: normal alignment Cardiovascular: normal peripheral pulses, normal rate, regular rhythm Respiratory/Chest: chest wall non-tender, lungs clear, normal breath sounds Abdomen: normal bowel sounds, non tender, soft Extremities: normal inspection Edema: no edema noted Arm (L), no edema noted Arm (R), no edema noted Leg (L), no edema noted Leg (R), no edema noted Pedal (L), no edema noted Pedal (R), no edema noted Generalized Neurologic: responsive, motor weakness Skin: normal pigmentation, warm/dry ROCÍO MOJICA Dec 11, 2016 11:59
--- NOTE | 2016-12-11 13:42 | Pulmonology Progress Note ---
Assessment/Plan Problems: (1) ACS (acute coronary syndrome) (2) EF < 20% (3) Cardiomyopathy due to hypertension, with heart failure (4) Hypothyroidism (5) Lumbar spondylosis (6) ICD (implantable cardioverter-defibrillator) in place (7) Right-sided heart failure (8) Cirrhosis (9) Ascites Assessment/Plan improving titrate fio2 adjust cardiac meds acute [place] ruled out f/u cardio recommendations endo to adjust synthyroid dosing med/surg when ok with cardio on coumadin for LV thrombus Subjective ROS Limited/Unobtainable: No Interval Events: walking around in the hallway Constitutional: Reports: no symptoms HEENT: Repors: no symptoms Respiratory: Reports: no symptoms Allergies: Coded Allergies: HYDROMORPHONE (Verified Allergy, Unknown, 12/28/10) Objective Last 24 Hour Vital Signs Date Time Temp Pulse Resp B/P Pulse Ox O2 Delivery O2 Flow Rate FiO2 12/11/16 11:52 60 12/11/16 11:36 97.8 61 18 121/66 98 Room Air 12/11/16 10:17 66 18 Room Air 21 12/11/16 08:57 135/94 12/11/16 08:56 60 12/11/16 08:56 60 135/94 12/11/16 08:20 97.0 60 18 135/94 97 Room Air 12/11/16 07:52 60 12/11/16 04:00 60 12/11/16 04:00 97.3 61 20 108/71 Room Air 12/11/16 00:00 98.3 60 20 115/75 12/11/16 00:00 60 12/10/16 23:34 60 115/75 12/10/16 20:00 60 12/10/16 20:00 97.5 60 20 124/79 Room Air 12/10/16 19:30 60 20 Room Air 21 12/10/16 19:00 97.5 12/10/16 16:02 97.5 61 18 108/64 96 Room Air 12/10/16 16:00 60 Intake and Output 12/10/16 12/11/16 19:00 07:00 Intake Total 480 ml Output Total 450 ml Balance 480 ml -450 ml Intake Oral 480 ml Output Urine Total 450 ml # Voids 3 # Bowel Movements 1 Objective General Appearance: WD/WN HEENT: normocephalic Respiratory/Chest: chest wall non-tender, lungs clear Cardiovascular: normal peripheral pulses, normal rate Abdomen: normal bowel sounds, soft, non tender Extremities: no cyanosis, other - effusion in both knees Skin: no rash Laboratory Tests 12/11/16 08:30: White Blood Count 4.4L, Red Blood Count 4.07L, Hemoglobin 13.6L, Hematocrit 43.0 , Mean Corpuscular Volume 106H, Mean Corpuscular Hemoglobin 33.5H, Mean Corpuscular Hemoglobin Concent 31.7L, Red Cell Distribution Width 15.0H, Platelet Count 216, Mean Platelet Volume 7.6, Neutrophils (%) (Auto) 63.7, Lymphocytes (%) (Auto) 23.0, Monocytes (%) (Auto) 9.3, Eosinophils (%) (Auto) 2.1, Basophils (%) (Auto) 2.0, Prothrombin Time 13.7H, Prothromb Time International Ratio 1.3H, Sodium Level 137, Potassium Level 4.5, Chloride Level 93L, Carbon Dioxide Level 31H, Anion Gap 13, Blood Urea Nitrogen 17, Creatinine 1.1, Estimat Glomerular Filtration Rate > 60, Glucose Level 91, Calcium Level 9.4 Current Medications Medications (Trade) Dose Ordered Sig/Allyn Route PRN Reason Start Time Stop Time Status Last Admin Dose Admin Albuterol/ Ipratropium (DuoNeb 0.5-3(2.5)mg/3ml) 3 ml Q6H PRN HHN Shortness of Breath 12/07/16 15:45 12/12/16 15:44 12/08/16 19:05 Aspirin (Ecotrin) 81 mg DAILY ORAL 12/08/16 09:00 01/07/17 08:59 12/11/16 08:57 Atorvastatin Calcium (Lipitor) 80 mg BEDTIME ORAL 12/07/16 21:00 01/06/17 20:59 12/10/16 23:35 Carvedilol (Coreg) 25 mg EVERY 12 HOURS ORAL 12/09/16 21:00 01/08/17 20:59 12/11/16 08:56 Digoxin (Lanoxin) 0.125 mg DAILY ORAL 12/11/16 09:00 01/10/17 08:59 Furosemide (Lasix) 40 mg DAILY ORAL 12/11/16 09:00 01/10/17 08:59 12/11/16 08:56 Gabapentin (Neurontin) 100 mg BID ORAL 12/07/16 18:00 01/06/17 17:59 12/11/16 09:05 Levothyroxine Sodium (Synthroid) 88 mcg ACBREAKFAST ORAL 12/08/16 06:30 01/07/17 06:29 12/11/16 06:02 Lisinopril (Zestril) 5 mg DAILY ORAL 12/08/16 09:00 01/07/17 08:59 12/11/16 08:57 Metoclopramide HCl (Reglan) 5 mg QID ORAL 12/07/16 17:00 01/06/17 16:59 12/11/16 12:27 Morphine HCl (Morphine IR) 15 mg BIDPRN PRN ORAL For Pain 12/07/16 15:45 12/14/16 15:44 12/10/16 17:05 Multivitamins (Multivitamins) 1 tab DAILY ORAL 12/08/16 09:00 01/07/17 08:59 12/11/16 08:56 Pantoprazole (Protonix) 40 mg DAILY ORAL 12/07/16 17:00 01/06/17 16:59 12/11/16 08:57 Spironolactone (Aldactone) 50 mg DAILY ORAL 12/10/16 09:00 01/09/17 08:59 12/11/16 08:54 Warfarin Sodium (Coumadin per pharmacy) 1 ea DAILY PRN MISC Per rx protocol 12/07/16 14:30 01/06/17 14:29 Warfarin Sodium/ Warfarin Sodium (Coumadin/ Coumadin) 12 mg COUMADIN ONCE ORAL 12/11/16 17:00 12/11/16 17:01 Zolpidem Tartrate (Ambien) 5 mg HSPRN PRN ORAL Insomnia 12/07/16 15:45 01/06/17 15:44 12/10/16 23:42 MONSERRAT TAYLOR Dec 11, 2016 13:42
--- NOTE | 2016-12-11 14:29 | Infectious Diseases Prog Note ---
Assessment/Plan Problems: (1) UTI (urinary tract infection) Assessment & Plan: urine culture showed less than 10 000 colonies of mixed gram positive organisms , most likely contaminant , off ceftriaxon, continue to monitor clinically for now (2) Hepatitis C Assessment & Plan: await viral load and genotype, recommend treatment with GI as an out patient (3) ACS (acute coronary syndrome) Assessment & Plan: continue tele monitor , cardiology is following , stress test is pending (4) CHF (congestive heart failure) Assessment & Plan: continue diuretics and cardiac meds (5) Cirrhosis Assessment & Plan: suspect due to HCV, continue supportive care , follow up with GI (6) Chest pain Assessment & Plan: improved , rule out ACS, continue tele monitor , cardiology is following Subjective Constitutional: Reports: no symptoms HEENT: Reports: no symptoms Respiratory: Reports: no symptoms Breasts: Reports: no symptoms Cardiovascular: Reports: no symptoms Gastrointestinal/Abdominal: Reports: no symptoms Genitourinary: Reports: no symptoms Neurologic: Reports: no symptoms Psychiatric: Reports: no symptoms Skin: Reports: no symptoms Endocrine: Reports: no symptoms Hematologic: Reports: no symptoms Musculoskeletal: Reports: no symptoms Allergies: Coded Allergies: HYDROMORPHONE (Verified Allergy, Unknown, 12/28/10) Objective Vital Signs Last 24 Hour Vital Signs Date Time Temp Pulse Resp B/P Pulse Ox O2 Delivery O2 Flow Rate FiO2 12/11/16 11:52 60 12/11/16 11:36 97.8 61 18 121/66 98 Room Air 12/11/16 10:17 66 18 Room Air 12/11/16 08:57 135/94 12/11/16 08:56 60 12/11/16 08:56 60 135/94 12/11/16 08:20 97.0 60 18 135/94 97 Room Air 12/11/16 07:52 60 12/11/16 04:00 60 12/11/16 04:00 97.3 61 20 108/71 Room Air 12/11/16 00:00 98.3 60 20 115/75 12/11/16 00:00 60 12/10/16 23:34 60 115/75 12/10/16 20:00 60 12/10/16 20:00 97.5 60 20 124/79 Room Air 12/10/16 19:30 60 20 Room Air 21 12/10/16 19:00 97.5 12/10/16 16:02 97.5 61 18 108/64 96 Room Air 12/10/16 16:00 60 Height (Feet): 6 Height (Inches): 3.00 Weight (Pounds): 151 General Appearance: WD/WN, no acute distress HEENT: normocephalic, atraumatic, anicteric, mucous membranes moist Respiratory/Chest: chest wall non-tender, lungs clear, normal breath sounds, no respiratory distress, no accessory muscle use Cardiovascular: normal peripheral pulses, normal rate, regular rhythm, no gallop/murmur, no JVD Abdomen: normal bowel sounds, soft, non tender, no organomegaly, non distended , no mass, no scars Extremities: no cyanosis, no clubbing Skin: no rash, no lesions, no ulcers Lymphatic: no neck adenopathy, no groin adenopathy Musculoskeletal: normal muscle bulk Laboratory Tests Test 12/11/16 08:30 White Blood Count 4.4 K/UL (4.8-10.8) L Red Blood Count 4.07 M/UL (4.70-6.10) L Hemoglobin 13.6 G/DL (14.2-18.0) L Hematocrit 43.0 % (42.0-52.0) Mean Corpuscular Volume 106 FL (80-99) H Mean Corpuscular Hemoglobin 33.5 PG (27.0-31.0) H Mean Corpuscular Hemoglobin Concent 31.7 G/DL (32.0-36.0) L Red Cell Distribution Width 15.0 % (11.6-14.8) H Platelet Count 216 K/UL (150-450) Mean Platelet Volume 7.6 FL (6.5-10.1) Neutrophils (%) (Auto) 63.7 % (45.0-75.0) Lymphocytes (%) (Auto) 23.0 % (20.0-45.0) Monocytes (%) (Auto) 9.3 % (1.0-10.0) Eosinophils (%) (Auto) 2.1 % (0.0-3.0) Basophils (%) (Auto) 2.0 % (0.0-2.0) Prothrombin Time 13.7 SEC (9.30-11.50) H Prothromb Time International Ratio 1.3 (0.9-1.1) H Sodium Level 137 mEQ/L (135-145) Potassium Level 4.5 mEQ/L (3.4-4.9) Chloride Level 93 mEQ/L (98-107) L Carbon Dioxide Level 31 mEQ/L (20-30) H Anion Gap 13 (5-15) Blood Urea Nitrogen 17 mg/dL (7-23) Creatinine 1.1 mg/dL (0.7-1.2) Estimat Glomerular Filtration Rate > 60 mL/min (>60) Glucose Level 91 mg/dL (74-106) Calcium Level 9.4 mg/dL (8.6-10.2) Current Medications Medications (Trade) Dose Ordered Sig/Allyn Route PRN Reason Start Time Stop Time Status Last Admin Dose Admin Albuterol/ Ipratropium (DuoNeb 0.5-3(2.5)mg/3ml) 3 ml Q6H PRN HHN Shortness of Breath 12/07/16 15:45 12/12/16 15:44 12/08/16 19:05 Aspirin (Ecotrin) 81 mg DAILY ORAL 12/08/16 09:00 01/07/17 08:59 12/11/16 08:57 Atorvastatin Calcium (Lipitor) 80 mg BEDTIME ORAL 12/07/16 21:00 01/06/17 20:59 12/10/16 23:35 Carvedilol (Coreg) 25 mg EVERY 12 HOURS ORAL 12/09/16 21:00 01/08/17 20:59 12/11/16 08:56 Digoxin (Lanoxin) 0.125 mg DAILY ORAL 12/11/16 09:00 01/10/17 08:59 Furosemide (Lasix) 40 mg DAILY ORAL 12/11/16 09:00 01/10/17 08:59 12/11/16 08:56 Gabapentin (Neurontin) 100 mg BID ORAL 12/07/16 18:00 01/06/17 17:59 12/11/16 09:05 Levothyroxine Sodium (Synthroid) 88 mcg ACBREAKFAST ORAL 12/08/16 06:30 01/07/17 06:29 12/11/16 06:02 Lisinopril (Zestril) 5 mg DAILY ORAL 12/08/16 09:00 01/07/17 08:59 12/11/16 08:57 Metoclopramide HCl (Reglan) 5 mg QID ORAL 12/07/16 17:00 01/06/17 16:59 12/11/16 12:27 Morphine HCl (Morphine IR) 15 mg BIDPRN PRN ORAL For Pain 12/07/16 15:45 12/14/16 15:44 12/10/16 17:05 Multivitamins (Multivitamins) 1 tab DAILY ORAL 12/08/16 09:00 01/07/17 08:59 12/11/16 08:56 Pantoprazole (Protonix) 40 mg DAILY ORAL 12/07/16 17:00 01/06/17 16:59 12/11/16 08:57 Spironolactone (Aldactone) 50 mg DAILY ORAL 12/10/16 09:00 01/09/17 08:59 12/11/16 08:54 Warfarin Sodium (Coumadin per pharmacy) 1 ea DAILY PRN MISC Per rx protocol 12/07/16 14:30 01/06/17 14:29 Warfarin Sodium/ Warfarin Sodium (Coumadin/ Coumadin) 12 mg COUMADIN ONCE ORAL 12/11/16 17:00 12/11/16 17:01 Zolpidem Tartrate (Ambien) 5 mg HSPRN PRN ORAL Insomnia 12/07/16 15:45 01/06/17 15:44 12/10/16 23:42 Maxine Alexander M.D. Dec 11, 2016 14:29
[2016-12-11 15:52] VITALS: BP 113/75
[2016-12-11] MEDS: Morphine IR 15mg tab ORAL PRN (16:48)
[2016-12-11] MEDS ORDERED: Warfarin Sod 10 MG, Warfarin Sod 2 MG ORAL ONE ×2 (17:00)
--- NOTE | 2016-12-11 17:46 | General Progress Note ---
Assessment/Plan Assessment/Plan ASSESSMENT/RECS: #. Anemia, secondary to chronic disease. H/H is stable, improving --> hgb goal is >7, anemia w/u has been reviewed #. Macrocytosis. MCV is elevated likely due to splenomegaly, hx of potential alcohol abuse, closely monitor #. Leukopenia due to splenomegaly with underlying liver cirrhosis. #. Hepatitis C, status post treatment. #. Coagulopathy. INR is stable, 1.3 #. Hepatitis C and in addition to liver cirrhosis. #. Hypertension history, will be managed by Cardiology with antihypertensives. #. Exacerbation of congestive heart failure. Continue digoxin, Lasix as per cards #. Hypothyroidism. #. Vtach hx, management per cards Subjective Constitutional: Reports: no symptoms HEENT: Reports: no symptoms Cardiovascular: Reports: no symptoms Respiratory: Reports: no symptoms Gastrointestinal/Abdominal: Reports: no symptoms Genitourinary: Reports: no symptoms Neurologic/Psychiatric: Reports: no symptoms Endocrine: Reports: no symptoms Allergies: Coded Allergies: HYDROMORPHONE (Verified Allergy, Unknown, 12/28/10) Subjective c/o abdominal pain, no f/c Objective Last 24 Hour Vital Signs Date Time Temp Pulse Resp B/P Pulse Ox O2 Delivery O2 Flow Rate FiO2 12/11/16 15:52 97.3 60 18 113/75 99 Room Air 12/11/16 11:52 60 12/11/16 11:36 97.8 61 18 121/66 98 Room Air 12/11/16 10:17 66 18 Room Air 21 12/11/16 08:57 135/94 12/11/16 08:56 60 12/11/16 08:56 60 135/94 12/11/16 08:20 97.0 60 18 135/94 97 Room Air 12/11/16 07:52 60 12/11/16 04:00 60 12/11/16 04:00 97.3 61 20 108/71 Room Air 12/11/16 00:00 98.3 60 20 115/75 12/11/16 00:00 60 12/10/16 23:34 60 115/75 12/10/16 20:00 60 12/10/16 20:00 97.5 60 20 124/79 Room Air 12/10/16 19:30 60 20 Room Air 21 12/10/16 19:00 97.5 Intake and Output 12/10/16 12/11/16 19:00 07:00 Intake Total 480 ml Output Total 450 ml Balance 480 ml -450 ml Intake Oral 480 ml Output Urine Total 450 ml # Voids 3 # Bowel Movements 1 Laboratory Tests 12/11/16 08:30: White Blood Count 4.4L, Red Blood Count 4.07L, Hemoglobin 13.6L, Hematocrit 43.0 , Mean Corpuscular Volume 106H, Mean Corpuscular Hemoglobin 33.5H, Mean Corpuscular Hemoglobin Concent 31.7L, Red Cell Distribution Width 15.0H, Platelet Count 216, Mean Platelet Volume 7.6, Neutrophils (%) (Auto) 63.7, Lymphocytes (%) (Auto) 23.0, Monocytes (%) (Auto) 9.3, Eosinophils (%) (Auto) 2.1, Basophils (%) (Auto) 2.0, Prothrombin Time 13.7H, Prothromb Time International Ratio 1.3H, Sodium Level 137, Potassium Level 4.5, Chloride Level 93L, Carbon Dioxide Level 31H, Anion Gap 13, Blood Urea Nitrogen 17, Creatinine 1.1, Estimat Glomerular Filtration Rate > 60, Glucose Level 91, Calcium Level 9.4 Height (Feet): 6 Height (Inches): 3.00 Weight (Pounds): 151 General Appearance: alert EENT: PERRL/EOMI Neck: normal alignment Cardiovascular: normal rate Respiratory/Chest: chest wall non-tender Abdomen: normal bowel sounds Extremities: normal range of motion Edema: no edema noted Pedal (L), no edema noted Pedal (R) 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
--- NOTE | 2016-12-11 19:47 | Cardiac Electrophysiology PN ---
Assessment/Plan Status Narrative Severe left ventricular enlargement. Global left ventricular akinesisa except the posterior wall which is hypokinetic. Ischemic cardiomyopathy cannot be excluded. Left ventricular ejection fraction estimated to be 20-25%. Left ventricular apical wall thrombus cannot be entirely excluded. No evidence of left ventricular hypertrophy. No evidence of pericardial fat or effusion. Right cardiac chamber sizes are within normal limits. Severe left atrial enlargement. Focal aortic valve sclerosis with adequate cusp excursion Thickened mitral valve leaflets with normal excursion. Mitral annulus and aortic root calcification. Pulmonic valve not well visualized. Normal tricuspid valve structure. IVC dilated at 2.5cm with no physiological collapse. RA pressure of 20mmHg. Probable pacemaker wire present in the right side chambers. Assessment/Plan 1. Exacerbation of congestive heart failure with ejection fraction of 20% . Continue Coreg, Aldactone and lisinopril 5 mg daily, Digoxin and Lasix. 2. Hypertension. Better with Coreg 25 mg b.i.d., lisinopril 5 mg, Lasix and Aldactone . 3. Status post [employer] ICD generator change with battery longevity for about 5 years. 4. History of paroxysmal atrial fibrillation, status post pulmonary vein ablation by me at [facility] in July of 2016.On Coumadin per Rx 5. History of hepatitis C and ascites. 6. Hypothyroidism. 7. Abdominal pain. Follow up with Gastroenterology. OK to DC Subjective Subjective Comfortable in NAD. Awaiting DC today. Objective Last 24 Hour Vital Signs Date Time Temp Pulse Resp B/P Pulse Ox O2 Delivery O2 Flow Rate FiO2 12/11/16 19:44 62 20 Room Air 21 12/11/16 16:00 61 12/11/16 15:52 97.3 60 18 113/75 99 Room Air 12/11/16 11:52 60 12/11/16 11:36 97.8 61 18 121/66 98 Room Air 12/11/16 10:17 66 18 Room Air 21 12/11/16 08:57 135/94 12/11/16 08:56 60 12/11/16 08:56 60 135/94 12/11/16 08:20 97.0 60 18 135/94 97 Room Air 12/11/16 07:52 60 12/11/16 04:00 60 12/11/16 04:00 97.3 61 20 108/71 Room Air 12/11/16 00:00 98.3 60 20 115/75 6/28/17 00:00 60 12/10/16 23:34 60 115/75 12/10/16 20:00 60 12/10/16 20:00 97.5 60 20 124/79 Room Air Intake and Output 12/10/16 12/11/16 19:00 07:00 Intake Total 480 ml Output Total 450 ml Balance 480 ml -450 ml Intake Oral 480 ml Output Urine Total 450 ml # Voids 3 # Bowel Movements 1 Laboratory Tests Test 12/11/16 08:30 White Blood Count 4.4 K/UL (4.8-10.8) L Red Blood Count 4.07 M/UL (4.70-6.10) L Hemoglobin 13.6 G/DL (14.2-18.0) L Hematocrit 43.0 % (42.0-52.0) Mean Corpuscular Volume 106 FL (80-99) H Mean Corpuscular Hemoglobin 33.5 PG (27.0-31.0) H Mean Corpuscular Hemoglobin Concent 31.7 G/DL (32.0-36.0) L Red Cell Distribution Width 15.0 % (11.6-14.8) H Platelet Count 216 K/UL (150-450) Mean Platelet Volume 7.6 FL (6.5-10.1) Neutrophils (%) (Auto) 63.7 % (45.0-75.0) Lymphocytes (%) (Auto) 23.0 % (20.0-45.0) Monocytes (%) (Auto) 9.3 % (1.0-10.0) Eosinophils (%) (Auto) 2.1 % (0.0-3.0) Basophils (%) (Auto) 2.0 % (0.0-2.0) Prothrombin Time 13.7 SEC (9.30-11.50) H Prothromb Time International Ratio 1.3 (0.9-1.1) H Sodium Level 137 mEQ/L (135-145) Potassium Level 4.5 mEQ/L (3.4-4.9) Chloride Level 93 mEQ/L (98-107) L Carbon Dioxide Level 31 mEQ/L (20-30) H Anion Gap 13 (5-15) Blood Urea Nitrogen 17 mg/dL (7-23) Creatinine 1.1 mg/dL (0.7-1.2) Estimat Glomerular Filtration Rate > 60 mL/min (>60) Glucose Level 91 mg/dL (74-106) Calcium Level 9.4 mg/dL (8.6-10.2) Objective HEAD AND NECK: No JVD. LUNGS: Decreased breath sounds. CARDIOVASCULAR: Regular S1 and S2 with no murmur.ICD left subclavian intact ABDOMEN: Soft and nontender. EXTREMITIES: No edema. ANTHONY MUÑOZ Dec 11, 2016 19:47
[2016-12-12 07:26] LABS: HEPATITIS C QUANT HCV Not Detected IU/mL (.)
--- NOTE | 2016-12-12 14:40 | Discharge Summary ---
Discharge Summary Hospital Course Date of Admission Dec 07, 2016 at 11:36 Date of Discharge Dec 11, 2016 at 19:30 Admitting Diagnosis ACS r/o Abdominal pain HPI Shad Rodas is a 61 year old male who was admitted on Dec 07, 2016 at 11:36 for Acute Coronary Syndrome Rule Out Abdominal Pain Hospital Course [id number] Discharge Discharge Disposition Patient was discharged to Home with Home Health(06) Discharge Diagnoses: Megan Collins NP Dec 12, 2016 14:40
--- NOTE | 2016-12-13 00:46 | Discharge Summary 2 SIG ---
DATE OF ADMISSION: 12/07/2016 DATE OF DISCHARGE: 12/11/2016 CONSULTANTS: 1. Rc Zhang M.D. 2. Brandon Joyce M.D. 3. Maxine Alexander M.D. 4. Beto Ryan M.D. 5. Andrzej Chavarria M.D. BRIEF HOSPITAL COURSE: The patient is a 61-year-old male, who was brought in by EMS due to epigastric and substernal chest pain for two to three days. The pain was described to be intermittent and worse with movement with associated nausea, but no vomiting. On evaluation at ED, LFTs were mildly elevated. Abdominal and pelvic CT showed mild ascites with gallbladder wall thickening. No evidence of acute abdominopelvic disease. Chest x-ray showed congestive heart failure. EKG showed first-degree block with ST depression in leads V5 to V6. He was given aspirin and IV Rocephin. The patient was admitted to telemetry for possible ACS. He was seen by Dr. Zhang. The patient had a history of severe cardiomyopathy status post [employer] defibrillator implantation and subsequent generator changed in December 2012. He had a paroxysmal atrial fibrillation and underwent cardiac ablation of all pulmonary veins at [facility] in 2010 and had an atrial flutter and redo ablation of all pleural veins in July 2016. He was on amiodarone and Coumadin. He was continued on digoxin, Coreg, Lasix, Aldactone, and lisinopril. He had an echocardiogram done, which showed ejection fraction of 20% to 25% with severe left ventricular enlargement, global left ventricular akinesia, pulmonary hypertension, and severe mitral regurgitation. He was seen by Dr. Ryan for evaluation of abdominal pain. On exam, he did not present with significant ascites. No GI procedures were recommended. He was continued on proton pump inhibitors and Reglan. He was started on ceftriaxone empirically for urine infection. Urine culture showed growth of mixed gram-positive organisms. Blood culture did not isolate any growth. Ceftriaxone was discontinued. He had leukopenia and anemia. Peripheral blood smear showed mild macrocytic normocytic anemia. There was presence of left ventricular apical wall thrombus based on echocardiogram. He was continued on Coumadin. NM was ruled out. The patient was eventually discharged home with home health. FINAL DIAGNOSES: 1. Acute exacerbation of congestive heart failure. 2. Urinary tract infection. 3. Liver cirrhosis. 4. Hepatitis C. 5. Hypertension. 6. Status post [employer] implantable cardioverter defibrillator generator change with battery longevity of five years. 7. Paroxysmal atrial fibrillation, status post pulmonary vein ablation. 8. Hypothyroidism. 9. Anemia secondary to chronic disease. 10. Leukopenia due to splenomegaly with underlying liver cirrhosis. 11. Chest pain. 12. Abdominal pain. Shahid Cherry D.O. I have been assigned to dictate discharge summary on this account and I was not involved in the patient's management. Megan Collins N.P. DR: Pankaj JOB#: [id number] CC:
== END 2016-12-11 19:30 | disposition home health service (06) | DRG 292 ==
LOC: EMR 10:46 → EDBEDREQ 11:30 → 2E 11:36 → EDBEDREQ 12:16
DX: I11.0 Hypertensive heart disease with heart failure (principal); R18.8 Other ascites; K74.60 Unspecified cirrhosis of liver; N39.0 Urinary tract infection, site not specified; J44.9 Chronic obstructive pulmonary disease, unspecified; E03.9 Hypothyroidism, unspecified; I50.9 Heart failure, unspecified; M47.816 Spondylosis without myelopathy or radiculopathy, lumbar region; I25.10 Atherosclerotic heart disease of native coronary artery without angina pectoris; K21.9 Gastro-esophageal reflux disease without esophagitis; R16.1 Splenomegaly, not elsewhere classified; B18.2 Chronic viral hepatitis C; K63.5 Polyp of colon; D53.9 Nutritional anemia, unspecified; Z95.810 Presence of automatic (implantable) cardiac defibrillator
CPT/HCPCS: 36415; 71010; 74177; 80048; 80053; 80162; 81003; 82150; 82248; 82378; 82607; 82746; 83690; 83880; 84443; 84484; 85007; 85025; 85060; 85610; 87040; 87086; 87522; 87902; 93005; 93306; 93970; 94640; 94664; J2405

== ENCOUNTER 2017-09-08 14:10 | Inpatient (IN) | payer MEDICARE, MEDICAID ==
[~2017-09-08] VITALS: Ht 175.3 cm; Wt 68.0 kg
[2017-09-08 14:28] VITALS: BP 157/96
--- NOTE | 2017-09-08 14:32 | Emergency Room Report ---
History of Present Illness General Chief Complaint: Abdominal Pain Source: Patient Present Illness HPI Patient is a 62-year-old male who presented after increased epigastric pain. The patient reports having prior history of cirrhosis. He reports having prior history of hepatitis C he had gradual onset of symptoms. Patient was noted to have episodes of vomiting he reports having abdominal pain. Patient states he is followed by Dr. Shahid Cherry. Allergies: Coded Allergies: HYDROMORPHONE (Verified Allergy, Unknown, 12/28/10) Patient History Past Medical History: see triage record Reviewed Nursing Documentation: PMH: Agreed; PSxH: Agreed Nursing Documentation-PMH Past Medical History: No History, Except For Hx Cardiac Problems: Yes Hx Hypertension: Yes Hx Pacemaker: Yes - Left upper chest Hx COPD: Yes Hx Cancer: No Hx Gastrointestinal Problems: Yes Hx Neurological Problems: No Review of Systems All Other Systems: negative except mentioned in HPI Physical Exam Vital Signs Date Time Temp Pulse Resp B/P (MAP) Pulse Ox O2 Delivery O2 Flow Rate FiO2 09/08/17 14:18 97.3 83 24 130/92 98 Room Air 97.3 Sp02 EP Interpretation: reviewed, normal General Appearance: normal inspection, alert, GCS 15, mild distress, Chronically Ill Head: atraumatic ENT: normal ENT inspection, hearing grossly normal, normal voice Neck: normal inspection, full range of motion, supple, no bony tend Respiratory: normal inspection, no retraction, crackles Cardiovascular #1: regular rate, rhythm, no edema Gastrointestinal: normal bowel sounds, non tender, soft, no hernia, tenderness Genitourinary: no CVA tenderness Musculoskeletal: normal inspection, back normal, normal range of motion Neurologic: normal inspection, alert, oriented x3, responsive, salvage repairer III-XII nml as tested, speech normal Psychiatric: normal inspection, judgement/insight normal, mood/affect normal Skin: normal inspection, normal color, no rash Medical Decision Making Diagnostic Impression: Primary Impression: Ascites Additional Impression: Cirrhosis ER Course Patient presented for abdominal pain. Differential diagnoses included ischemic bowel, appendicitis, perforated viscus, abdominal aortic aneurysm, inferior myocardial infarction, viral gastroenteritis Because of complexity of patient's case laboratory testing and imaging studies were ordered.Laboratory testing showed evidence of chronic liver disease. Patient noted have some tenderness in his abdomen. CT the abdomen pelvis read by radiology showed efkxy-to-rollutdh amount of ascites without evident free air Dr. Shahid Cherry was contacted for inpatient management Labs Test 09/08/17 12:30 09/08/17 15:03 White Blood Count 6.6 K/UL (4.8-10.8) Red Blood Count 4.29 M/UL (4.70-6.10) Hemoglobin 11.5 G/DL (14.2-18.0) Hematocrit 38.1 % (42.0-52.0) Mean Corpuscular Volume 89 FL (80-99) Mean Corpuscular Hemoglobin 26.8 PG (27.0-31.0) Mean Corpuscular Hemoglobin Concent 30.1 G/DL (32.0-36.0) Red Cell Distribution Width 21.6 % (11.6-14.8) Platelet Count 301 K/UL (150-450) Mean Platelet Volume 6.1 FL (6.5-10.1) Neutrophils (%) (Auto) 77.9 % (45.0-75.0) Lymphocytes (%) (Auto) 13.4 % (20.0-45.0) Monocytes (%) (Auto) 6.7 % (1.0-10.0) Eosinophils (%) (Auto) 0.3 % (0.0-3.0) Basophils (%) (Auto) 1.8 % (0.0-2.0) Prothrombin Time 16.5 SEC (9.30-11.50) Prothromb Time International Ratio 1.6 (0.9-1.1) Activated Partial Thromboplast Time 26 SEC (23-33) Sodium Level 138 MMOL/L (136-145) Potassium Level 4.8 MMOL/L (3.5-5.1) Chloride Level 103 MMOL/L (98-107) Carbon Dioxide Level 22 MMOL/L (21-32) Anion Gap 13 mmol/L (5-15) Blood Urea Nitrogen 33 mg/dL (7-18) Creatinine 1.5 MG/DL (0.55-1.30) Estimat Glomerular Filtration Rate 57.1 mL/min (>60) Glucose Level 168 MG/DL (74-106) Calcium Level 9.1 MG/DL (8.5-10.1) Total Bilirubin 2.9 MG/DL (0.2-1.0) Direct Bilirubin 0.8 MG/DL (0.0-0.3) Aspartate Amino Transf (AST/SGOT) 24 U/L (15-37) Alanine Aminotransferase (ALT/SGPT) 24 U/L (12-78) Alkaline Phosphatase 113 U/L (46-116) Ammonia 21 umol/L (11-32) Troponin I 0.017 ng/mL (0.000-0.056) Total Protein 8.3 G/DL (6.4-8.2) Albumin 3.7 G/DL (3.4-5.0) Globulin 4.6 g/dL Albumin/Globulin Ratio 0.8 (1.0-2.7) Lipase 83 U/L (73-393) Urine Color Brown Urine Appearance Clear Urine pH 5 (4.5-8.0) Urine Specific [place]andquist 1.025 (1.005-1.035) Urine Protein 4+ (NEGATIVE) Urine Glucose (UA) Negative (NEGATIVE) Urine Ketones 1+ (NEGATIVE) Urine Occult Blood 2+ (NEGATIVE) Urine Nitrite Negative (NEGATIVE) Urine Bilirubin 1+ (NEGATIVE) Urine Ictotest Negative Urine Urobilinogen 4 MG/DL (0.0-1.0) Urine Leukocyte Esterase 1+ (NEGATIVE) Urine RBC 5-10 /HPF (0 - 0) Urine WBC 2-4 /HPF (0 - 0) Urine Squamous Epithelial Cells None /LPF (NONE/OCC) Urine Amorphous Sediment Few /LPF (NONE) Urine Bacteria Moderate /HPF (NONE) Last Vital Signs Date Time Temp Pulse Resp B/P (MAP) Pulse Ox O2 Delivery O2 Flow Rate FiO2 09/08/17 14:18 97.3 83 24 130/92 98 Room Air 97.3 Status: improved Disposition: HOME, SELF-CARE Condition: Stable Jony Robb Sep 08, 2017 14:32
[2017-09-08 15:21] LABS: INR 1.6 (0.9-1.1)
[2017-09-08 15:25] LABS: AMMONIA 21 umol/L (11-32); ANION GAP 13 mmol/L (5-15); BLOOD UREA NITROGEN 33 mg/dL (7-18); CALCIUM 9.1 MG/DL (8.5-10.1); CARBON DIOXIDE 22 MMOL/L (21-32); CHLORIDE 103 MMOL/L (98-107); CREATININE 1.5 MG/DL (0.55-1.30); POTASSIUM 4.8 MMOL/L (3.5-5.1); SODIUM 138 MMOL/L (136-145)
[2017-09-08 15:27] LABS: BASOPHILS % (AUTO) 1.8 % (0.0-2.0); EOSINOPHILS % (AUTO) 0.3 % (0.0-3.0); HEMATOCRIT 38.1 % (42.0-52.0); HEMOGLOBIN 11.5 G/DL (14.2-18.0); LYMPHOCYTES % (AUTO) 13.4 % (20.0-45.0); MEAN CORPUSCULAR VOLUME 89 FL (80-99); MONOCYTES % (AUTO) 6.7 % (1.0-10.0); NEUTROPHILS % (AUTO) 77.9 % (45.0-75.0); PLATELET COUNT 301 K/UL (150-450); RED BLOOD COUNT 4.29 M/UL (4.70-6.10); RED CELL DISTRIBUTION WIDTH 21.6 % (11.6-14.8); WHITE BLOOD COUNT 6.6 K/UL (4.8-10.8)
[2017-09-08 15:30] LABS: APPEARANCE,URINE CLEAR; BILIRUBIN, URINE 1+ (NEGATIVE); COLOR,URINE BROWN; GLUCOSE, URINE (UA) NEGATIVE (NEGATIVE); KETONES,URINE 1+ (NEGATIVE); LEUKOCYTE ESTERASE ,URINE 1+ (NEGATIVE); NITRITE,URINE NEGATIVE (NEGATIVE); PH,URINE 5 (4.5-8.0); PROTEIN,URINE 4+ (NEGATIVE); UROBILINOGEN,URINE 4 MG/DL (0.0-1.0)
[2017-09-08 15:32] LABS: ALANINE AMINOTRANSFERASE 24 U/L (12-78); ALBUMIN 3.7 G/DL (3.4-5.0); ALBUMIN/GLOBULIN RATIO 0.8 (1.0-2.7); ALKALINE PHOSPHATASE 113 U/L (46-116); ASPARTATE AMINO TRANSFERASE 24 U/L (15-37); BILIRUBIN,TOTAL 2.9 MG/DL (0.2-1.0)
[2017-09-08 15:33] LABS: BILIRUBIN,DIRECT 0.8 MG/DL (0.0-0.3)
[2017-09-08] MEDS ORDERED: Morphine Sulfate 4mg/ml Inj IVP ONE ×2 (16:00→20:45)
[2017-09-08 16:13] VITALS: BP 151/105
--- NOTE | 2017-09-08 16:55 | Diagnostic Imaging Report ---
Indication: Abdominal pain Technique: Spiral acquisitions obtained through the abdomen and pelvis. No oral contrast utilized, per emergency room physician request No IV contrast utilized, due to history of renal insufficiency.. Multiplanar reconstructions were generated. Total dose length product 541 mGycm. CTDIvol(s) 10 mGy. Dose reduction achieved using automated exposure control Comparison: 12/07/2016 Findings: Lack of enteric contrast limits assessment of the GI tract. The appendix is normal. No evidence of diverticulosis or diverticulitis. There is a small to moderate amount of ascites fluid, increased in amount since the previous exam, previously only trace. No small bowel distention. No free intraperitoneal air. There is a small umbilical hernia containing only fat. Fluid is also seen herniated into the right inguinal canal. The distal esophagus, stomach, duodenum are unremarkable. Lack of IV contrast limits assessment of the solid organs. There is edema of the gallbladder wall. This appears similar to previous exam. There may be sludge within the gallbladder, but no definite gallstones. The bile ducts are nondilated. No focal liver abnormality. The pancreas demonstrates a few calcifications which may be arterial. The spleen demonstrates a capsular calcification. The adrenals, kidneys are unremarkable. No retroperitoneal or mesenteric mass or adenopathy. No pelvic mass or adenopathy. The bladder is nondistended, demonstrates apparent wall thickening which appears similar to the previous exam. The prostate is mildly enlarged. There is a small right pleural effusion, which is smaller than on the previous study. Previously demonstrated left pleural effusion is no longer evident. The heart is enlarged. Pacemaker wires are seen in the heart. There is a small pericardial effusion again demonstrated. The included lung bases demonstrate mild interstitial septal thickening on the right, as well as some linear atelectasis or scarring. The bones are unremarkable. Impression: Limited assessment of the GI tract, due to lack of enteric contrast administration Small to moderate amount of ascites, increased since previous study of 12/07/2016 Right-sided pleural effusion, decreased from previous exam. Previously demonstrated left-sided pleural effusion is no longer evident Evidence of mild pulmonary edema Small pericardial effusion, similar to previous study Color wall edema, similar to the previous exam. Most likely manifestation of anasarca, given the above findings. However, the possibility of acalculous acute cholecystitis or cholecystitis due to occult calculi should also be considered, and consideration for nuclear medicine hepatobiliary scanning if there is high clinical suspicion Apparent mild bladder wall thickening, probably artifact of under distention, but cystitis not excluded. Correlate with clinical findings Prostatomegaly Cardiomegaly Other findings as noted, including pacemaker, small fat-containing umbilical hernia, right inguinal hernia containing herniated ascites fluid, splenic capsular calcification The CT scanner at [facility] is accredited by the [employer] and the scans are performed using protocols designed to limit radiation exposure to as low as reasonably achievable to attain images of sufficient resolution adequate for diagnostic evaluation.
[2017-09-08] MEDS ORDERED: CARVEDILOL6.25 MG ORAL (17:51)
[2017-09-08] MEDS ORDERED: XARELTO10 MG ORAL (17:52)
[2017-09-08] MEDS ORDERED: LISINOPRIL10 MG ORAL (17:55)
[2017-09-08] MEDS ORDERED: GABAPENTIN100 MG ORAL (17:55)
[2017-09-08 18:15] VITALS: BP 146/103
[2017-09-08] MEDS ORDERED: cefTRIAXone 1 GM in NS 55 ML IVPB ONE (18:15)
[2017-09-08 20:50] VITALS: BP 151/109
[2017-09-09] VITALS: BP 155/100
[2017-09-09 04:00] VITALS: BP 131/82
[2017-09-09 08:00] VITALS: BP 138/109
[2017-09-09] MEDS: Spironolactone 50mg tab ORAL SCH (09:16)
[2017-09-09] MEDS: Furosemide 40mg tab ORAL SCH ×2 (09:16→20:39)
[2017-09-09] MEDS: Norco 5mg/325mg tab ORAL PRN ×3 (09:16→23:40)
[2017-09-09] MEDS: Xarelto 10mg tab ORAL SCH (09:16)
[2017-09-09] MEDS: Lisinopril 10mg tab ORAL SCH (09:16)
[2017-09-09] MEDS: Carvedilol 6.25mg Tab ORAL SCH ×2 (09:16→20:39)
[2017-09-09] MEDS ORDERED: Albuterol 90mcg Inhaler 8gm INH PRN (09:30)
[2017-09-09 09:53] LABS: BASOPHILS % (AUTO) 2.6 % (0.0-2.0); EOSINOPHILS % (AUTO) 0.4 % (0.0-3.0); HEMATOCRIT 37.6 % (42.0-52.0); HEMOGLOBIN 11.5 G/DL (14.2-18.0); LYMPHOCYTES % (AUTO) 19.3 % (20.0-45.0); MEAN CORPUSCULAR VOLUME 88 FL (80-99); MONOCYTES % (AUTO) 11.8 % (1.0-10.0); PLATELET COUNT 299 K/UL (150-450); RED BLOOD COUNT 4.27 M/UL (4.70-6.10); WHITE BLOOD COUNT 6.5 K/UL (4.8-10.8)
[2017-09-09 09:56] LABS: AMMONIA 26 umol/L (11-32)
[2017-09-09 09:57] LABS: ALANINE AMINOTRANSFERASE 27 U/L (12-78); ALBUMIN 3.5 G/DL (3.4-5.0); ALBUMIN/GLOBULIN RATIO 0.8 (1.0-2.7); ALKALINE PHOSPHATASE 106 U/L (46-116); ANION GAP 11 mmol/L (5-15); ASPARTATE AMINO TRANSFERASE 25 U/L (15-37); BILIRUBIN,TOTAL 2.3 MG/DL (0.2-1.0); BLOOD UREA NITROGEN 46 mg/dL (7-18); CARBON DIOXIDE 23 MMOL/L (21-32); CHLORIDE 103 MMOL/L (98-107); CREATININE 1.8 MG/DL (0.55-1.30); POTASSIUM 5.2 MMOL/L (3.5-5.1); SODIUM 137 MMOL/L (136-145)
[2017-09-09 10:06] LABS: BILIRUBIN,DIRECT 0.9 MG/DL (0.0-0.3)
[2017-09-09 12:00] VITALS: BP 105/70
--- NOTE | 2017-09-09 13:53 | Consultation ---
Consult Note Assessment/Plan [id number] ALBA HERNANDEZ M.D. Sep 09, 2017 13:53
[2017-09-09 16:00] VITALS: BP 119/74
--- NOTE | 2017-09-09 16:32 | Cardiology Report ---
APPROVED REPORT EXAM: Two-dimensional and M-mode echocardiogram with Doppler and color Doppler. INDICATION Congestive Heart Failure M-Mode DIMENSIONS IVSd0.7 (0.7-1.1cm)Left Atrium (MM)5.6 (1.6-4.0cm) LVDd6.2 (3.5-5.6cm)Aortic Root3.0 (2.0-3.7cm) PWd1.3 (0.7-1.1cm)Aortic Cusp Exc.2.0 (1.5-2.0cm) LVDs5.5 (2.5-4.0cm) PWs1.3 cm Moderate left ventricular enlargement. Global left ventricular hypokinesis. Best motion see in proximal post wasll and lateral jaquez Left ventricular ejection fraction estimated to be 20-25%. No evidence of left ventricular hypertrophy. No evidence of pericardial or pleural effusion. Moderate bi-atrial enlargement by 2D. Focal aortic valve sclerosis with adequate cusp excursion. Thickened mitral valve leaflets with normal excursion. Mild mitral annulus and aortic root calcification. Pulmonic valve is well visualized. Normal tricuspid valve structure. IVC dilated at 2.4 cm non-collapsible with respiration indicate increased RA pressure. Probable pacemaker wire present in the right side chambers. A color flow and spectral Doppler study was performed and revealed: Trace aortic regurgitation. Moderate to severe mitral regurgitation. Mitral diastolic velocities suggest reduced left ventricular relaxation c/w diastolic dysfunction grade 3. Mild tricuspid regurgitation. Tricuspid systolic velocities suggests peak right ventricular systolic pressure of 67mmHg Consistent with severe pulmonary hypertension.
--- NOTE | 2017-09-09 16:34 | GI Initial Consult Note ---
MargeChanel Levinoi N.P. 09/09/17 1633: History of Present Illness General Date patient seen: Sep 09, 2017 Time patient seen: 16:34 Reason for Hospitalization: Abdominal Pain Referring physician: ROCÍO MOJICA Present Illness HPI Patient is a 62-year-old male who presented after increased epigastric pain. The patient reports having prior history of cirrhosis. He reports having prior history of hepatitis C he had gradual onset of symptoms. Patient was noted to have episodes of vomiting he reports having abdominal pain. Patient states he is followed by Dr. Rocío Mojica. GI consulted for abdominal pain. Pt p/w epigastric abdominal pain. Pt stated this was not his first episode. Stated he had an episode of emesis last night, denied coffee grounds and hematemesis. Denies diarrhea. Hx of Hep C, Cirrhosis , HTN, CHF, Pacemaker. Pt states he drinks beer and uses marijuana occasional. Denies tobacco use. Last colonoscopy 2 years ago. Home Meds Reported Medications Lisinopril* (LISINOPRIL*) 10 Mg Tablet, 10 MG ORAL DAILY, TAB 09/08/17 Gabapentin* (GABAPENTIN*) 100 Mg Capsule, 100 MG ORAL DAILY, CAP 09/08/17 Rivaroxaban (XARELTO*) 10 Mg Tablet, 20 MG ORAL DAILY, TAB 0 Refills 09/08/17 Carvedilol* (CARVEDILOL*) 6.25 Mg Tablet, 6.25 MG ORAL EVERY 12 HOURS, TAB 09/08/17 Metoclopramide Hcl* (REGLAN*) 5 Mg Tablet, 5 MG ORAL EVERY 6 HOURS, TAB 04/09/16 Lansoprazole* (PREVACID*) 30 Mg Capsule.dr, 30 MG ORAL DAILY, CAP 04/09/16 Albuterol Sulfate* (PROAIR HFA*) 8.5 Gm Hfa.aer.ad, 2 PUFFS INH Q6H, #8.5 GM 0 Refills 04/09/16 Multivitamins* (MULTIVITAMINS*) 1 Each Tablet, 2 TAB ORAL DAILY, TAB 0 Refills 04/09/16 Oxycodone Hcl* (OXYCODONE HCL*) 10 Mg Tablet, 10 MG ORAL BID for For Pain, TAB 08/09/14 Furosemide* (LASIX*) 40 Mg Tablet, 40 MG ORAL TWICE A DAY, TAB 0 Refills 08/09/14 Zolpidem Tartrate* (ZOLPIDEM TARTRATE*) 5 Mg Tablet, 10 MG ORAL BEDTIME PRN for Insomnia, TAB 0 Refills 07/28/14 Spironolactone* (SPIRONOLACTONE*) 100 Mg Tablet, 50 MG ORAL DAILY, TAB 07/28/14 Digoxin* (DIGOXIN*) 250 Mcg Tablet, 0.25 MG ORAL DAILY, TAB 07/28/14 Levothyroxine Sodium* (LEVOTHYROXINE SODIUM*) 88 Mcg Tablet, 88 MCG ORAL DAILY, TAB Take in the morning on an empty stomach, at least 30 minutes before food. 07/28/14 Discontinued Reported Medications Warfarin Sod (COUMADIN*) 7.5 Mg Tablet, 9.5 MG ORAL DAILY, TAB 04/09/16 Atorvastatin Calcium* (LIPITOR*) 80 Mg Tablet, 80 MG ORAL BEDTIME, TAB 04/09/16 Ipratropium [place] 0.5MG/2.5ML (IPRATROPIUM BROMIDE 0.5MG/2.5ML) 0.2 Mg/1 Ml Solution, 0.5 MG HHN Q6H PRN for Shortness of Breath, #28 EA 04/09/16 Aspirin* (ASPIRIN EC*) 325 Mg Tablet.dr, 325 MG ORAL PRN, TAB 04/09/16 Aspirin Ec* (ASPIRIN EC*) 81 Mg Tablet.dr, 81 MG ORAL DAILY, TAB 04/09/16 Nitroglycerin (NITROGLYCERIN) 0.4 Mg Tab.subl, 0.4 MG SL q5 minutes x 3 doses PRN for chest pain, TAB 08/16/14 Morphine HCl (Morphine Sulfate ER) 15 Mg Tab, 15 MG ORAL BID for For Pain, TAB 08/09/14 Med list reviewed/reconciled: Yes Allergies: Coded Allergies: HYDROMORPHONE (Verified Allergy, Unknown, 12/28/10) Patient History History Provided By: Patient, Medical Record PMH Narrative Past Medical History: see triage record Reviewed Nursing Documentation: PMH: Agreed; PSxH: Agreed Nursing Documentation-PMH Past Medical History: No History, Except For Hx Cardiac Problems: Yes Hx Hypertension: Yes Hx Pacemaker: Yes - Left upper chest Hx COPD: Yes Hx Cancer: No Hx Gastrointestinal Problems: Yes Hx Neurological Problems: No Review of Systems All Other Systems: negative except mentioned in HPI Physical Exam Vital Signs Date Time Temp Pulse Resp B/P (MAP) Pulse Ox O2 Delivery O2 Flow Rate FiO2 09/08/17 14:18 97.3 83 24 130/92 98 Room Air 97.3 09/09/17 09:48 21 Sp02 EP Interpretation: reviewed, normal Labs Laboratory Tests Test 09/09/17 09:04 09/09/17 15:04 White Blood Count 6.5 K/UL (4.8-10.8) Red Blood Count 4.27 M/UL (4.70-6.10) L Hemoglobin 11.5 G/DL (14.2-18.0) L Hematocrit 37.6 % (42.0-52.0) L Mean Corpuscular Volume 88 FL (80-99) Mean Corpuscular Hemoglobin 27.0 PG (27.0-31.0) Mean Corpuscular Hemoglobin Concent 30.6 G/DL (32.0-36.0) L Red Cell Distribution Width 22.0 % (11.6-14.8) H Platelet Count 299 K/UL (150-450) Mean Platelet Volume 6.9 FL (6.5-10.1) Neutrophils (%) (Auto) 66.0 % (45.0-75.0) Lymphocytes (%) (Auto) 19.3 % (20.0-45.0) L Monocytes (%) (Auto) 11.8 % (1.0-10.0) H Eosinophils (%) (Auto) 0.4 % (0.0-3.0) Basophils (%) (Auto) 2.6 % (0.0-2.0) H Sodium Level 137 MMOL/L (136-145) Potassium Level 5.2 MMOL/L (3.5-5.1) H Chloride Level 103 MMOL/L (98-107) Carbon Dioxide Level 23 MMOL/L (21-32) Anion Gap 11 mmol/L (5-15) Blood Urea Nitrogen 46 mg/dL (7-18) H Creatinine 1.8 MG/DL (0.55-1.30) H Estimat Glomerular Filtration Rate 46.3 mL/min (>60) Glucose Level 129 MG/DL (74-106) H Osmolality 306 mOsm/kg (297-317) Calcium Level 9.0 MG/DL (8.5-10.1) Total Bilirubin 2.3 MG/DL (0.2-1.0) H Direct Bilirubin 0.9 MG/DL (0.0-0.3) H Aspartate Amino Transf (AST/SGOT) 25 U/L (15-37) Alanine Aminotransferase (ALT/SGPT) 27 U/L (12-78) Alkaline Phosphatase 106 U/L (46-116) Ammonia 26 umol/L (11-32) Pro-B-Type Natriuretic Peptide > 07971 pg/mL (0-125) H Total Protein 7.9 G/DL (6.4-8.2) Albumin 3.5 G/DL (3.4-5.0) Globulin 4.4 g/dL Albumin/Globulin Ratio 0.8 (1.0-2.7) L Urine Eosinophils Pending Urine Osmolality Pending Urine Random Sodium Pending Urine Creatinine Pending General Appearance: well appearing, no apparent distress, alert Head: normocephalic EENT: PERRL/EOMI, normal ENT inspection Neck: supple Respiratory: normal breath sounds, no respiratory distress Cardiovascular: normal rate Gastrointestinal: normal inspection, non tender, soft, normal bowel sounds, non -distended Rectal: deferred Genitourinary: deferred Musculoskeletal: normal inspection, back normal Neurologic: normal inspection, alert, oriented x3, responsive Psychiatric: normal inspection, judgement/insight normal, memory normal Skin: normal inspection, normal color, no rash, warm/dry, palpation normal, well hydrated Lymphatic: normal inspection, no adenopathy Current Medications Current Medications Medications (Trade) Dose Ordered Sig/[place]lyn Route PRN Reason Start Time Stop Time Status Last Admin Dose Admin Acetaminophen/ Hydrocodone Bitart ([place] 5/325) 1 tab Q6H PRN ORAL PAIN 4-10 09/09/17 08:15 09/16/17 08:14 09/09/17 09:16 Albuterol Sulfate (Proventil MDI) 1 puff Q6H PRN INH Shortness of Breath 09/09/17 09:30 10/09/17 09:29 Carvedilol (Coreg) 6.25 mg EVERY 12 HOURS ORAL 09/09/17 09:00 10/09/17 08:59 09/09/17 09:16 Ceftriaxone Sodium 1 gm/ Dextrose 110 ml @ 220 mls/hr Q24H IVPB 09/09/17 16:00 09/16/17 15:59 Furosemide (Lasix) 40 mg Q12HR ORAL 09/09/17 09:00 10/09/17 08:59 09/09/17 09:16 Gabapentin (Neurontin) 100 mg Q8HR ORAL 09/09/17 14:00 10/09/17 13:59 09/09/17 14:52 Levothyroxine Sodium (Synthroid) 88 mcg ACBREAKFAST ORAL 09/09/17 09:00 10/09/17 08:59 09/09/17 11:48 Lisinopril (Zestril) 10 mg DAILY ORAL 09/09/17 09:00 10/09/17 08:59 09/09/17 09:16 Metoclopramide HCl (Reglan) 5 mg EVERY 6 HOURS ORAL 09/09/17 12:00 10/09/17 11:59 09/09/17 11:48 Multivitamins (Multivitamins) 2 tab DAILY ORAL 09/09/17 09:00 10/09/17 08:59 09/09/17 09:17 Pantoprazole (Protonix) 40 mg DAILY ORAL 09/09/17 09:00 10/09/17 08:59 09/09/17 09:16 Rivaroxaban (Xarelto) 20 mg DAILY ORAL 09/09/17 09:00 10/09/17 08:59 09/09/17 09:16 Spironolactone (Aldactone) 50 mg DAILY ORAL 09/09/17 09:00 10/09/17 08:59 09/09/17 09:16 GI: Plan Problems: (1) Ascites (2) Abdominal pain (3) Hypothyroidism (4) Colon polyps Plan hx of Hep C s/p tx >> hep panel 2016 negative APCT reviewed >> moderate ascites s/p colonoscopy with one polyp 06/26/16 No evidence of cirrhosis symptomatic treatment Lasix Aldactone adv low sodium diet ppi dc reglan given elevated creatinine levels pain mgmt fu labs Discussed with Dr. Billingsley. Thank you for this patient referral, we will follow. PALAK BILLINGSLEY 09/11/17 1404: History of Present Illness General Reason for Hospitalization: Abdominal Pain Present Illness Home Meds Reported Medications Lisinopril* (LISINOPRIL*) 10 Mg Tablet, 10 MG ORAL DAILY, TAB 09/08/17 Gabapentin* (GABAPENTIN*) 100 Mg Capsule, 100 MG ORAL DAILY, CAP 09/08/17 Rivaroxaban (XARELTO*) 10 Mg Tablet, 20 MG ORAL DAILY, TAB 0 Refills 09/08/17 Carvedilol* (CARVEDILOL*) 6.25 Mg Tablet, 6.25 MG ORAL EVERY 12 HOURS, TAB 09/08/17 Metoclopramide Hcl* (REGLAN*) 5 Mg Tablet, 5 MG ORAL EVERY 6 HOURS, TAB 04/09/16 Lansoprazole* (PREVACID*) 30 Mg Capsule.dr, 30 MG ORAL DAILY, CAP 04/09/16 Albuterol Sulfate* (PROAIR HFA*) 8.5 Gm Hfa.aer.ad, 2 PUFFS INH Q6H, #8.5 GM 0 Refills 04/09/16 Multivitamins* (MULTIVITAMINS*) 1 Each Tablet, 2 TAB ORAL DAILY, TAB 0 Refills 04/09/16 Oxycodone Hcl* (OXYCODONE HCL*) 10 Mg Tablet, 10 MG ORAL BID for For Pain, TAB 08/09/14 Furosemide* (LASIX*) 40 Mg Tablet, 40 MG ORAL TWICE A DAY, TAB 0 Refills 08/09/14 Zolpidem Tartrate* (ZOLPIDEM TARTRATE*) 5 Mg Tablet, 10 MG ORAL BEDTIME PRN for Insomnia, TAB 0 Refills 07/28/14 Spironolactone* (SPIRONOLACTONE*) 100 Mg Tablet, 50 MG ORAL DAILY, TAB 07/28/14 Digoxin* (DIGOXIN*) 250 Mcg Tablet, 0.25 MG ORAL DAILY, TAB 07/28/14 Levothyroxine Sodium* (LEVOTHYROXINE SODIUM*) 88 Mcg Tablet, 88 MCG ORAL DAILY, TAB Take in the morning on an empty stomach, at least 30 minutes before food. 07/28/14 Discontinued Reported Medications Warfarin Sod (COUMADIN*) 7.5 Mg Tablet, 9.5 MG ORAL DAILY, TAB 04/09/16 Atorvastatin Calcium* (LIPITOR*) 80 Mg Tablet, 80 MG ORAL BEDTIME, TAB 04/09/16 Ipratropium [place] 0.5MG/2.5ML (IPRATROPIUM BROMIDE 0.5MG/2.5ML) 0.2 Mg/1 Ml Solution, 0.5 MG HHN Q6H PRN for Shortness of Breath, #28 EA 04/09/16 Aspirin* (ASPIRIN EC*) 325 Mg Tablet., 325 MG ORAL PRN, TAB 04/09/16 Aspirin Ec* (ASPIRIN EC*) 81 Mg Tablet.dr, 81 MG ORAL DAILY, TAB 04/09/16 Nitroglycerin (NITROGLYCERIN) 0.4 Mg Tab.subl, 0.4 MG SL q5 minutes x 3 doses PRN for chest pain, TAB 08/16/14 Morphine HCl (Morphine Sulfate ER) 15 Mg Tab, 15 MG ORAL BID for For Pain, TAB 08/09/14 Allergies: Coded Allergies: HYDROMORPHONE (Verified Allergy, Unknown, 12/28/10) GI: Plan Plan The patient was seen and examined at bedside and all new and available data was reviewed in the patients chart. I agree with the above findings, impression and plan. (Patient seen earlier today. Signature stamp does not reflect patient encounter time.). - MD Marge [facility] Joseph N.PEmily Sep 09, 2017 16:33 PALAK BILLINGSLEY Sep 11, 2017 14:04
--- NOTE | 2017-09-09 16:37 | Cardiology Report ---
APPROVED REPORT EKG Measurement Heart [id number] afib v pacing
[2017-09-09] MEDS: cefTRIAXone 1 GM in D5W 110 ML IVPB SCH (16:50)
--- NOTE | 2017-09-09 17:17 | Diagnostic Imaging Report ---
Indication: Shortness of breath Technique: One view of the chest Comparison: 12/07/2016 Findings: Hazy infiltrate is seen in the periphery of the right mid and lower lung. There is also suggestion of right-sided pleural effusion. The left lung and pleural space are clear. The heart is enlarged. Left chest AICD again demonstrated Impression: Right lateral basilar infiltrate, suspect pneumonia but possibly on the basis of focal pulmonary edema Small right pleural effusion Cardiomegaly
--- NOTE | 2017-09-09 17:18 | Diagnostic Imaging Report ---
Indication: Abdominal pain Technique: Supine view of the abdomen Comparison: 06/19/2010 Findings: Bowel gas pattern is unremarkable. No gaseous distention of large or small bowel. No unusual masses or opacifications. Cardiomegaly and cardiac AICD wires are noted Impression: No acute process
--- NOTE | 2017-09-09 17:44 | Diagnostic Imaging Report ---
Indication: And abnormal renal function tests Technique: Grayscale and duplex images of the kidneys, retroperitoneum, and bladder were obtained. Comparison: Reference made to CT abdomen and pelvis dated 09/08/2017, abdomen ultrasound dated 05/05/2017 Findings: Right kidney measures 10.7 cm in length. Left kidney measures 11.7 cm in length. Both kidneys demonstrate normal echogenicity. No hydronephrosis. 'S the left kidney demonstrates a 14 mm cyst in the interpolar region. Normal inferior vena cava. Bladder is mildly distended, somewhat irregular in contour. Prostate volume of 33 mL. Incidentally noted is ascites fluid Impression: Negative for hydronephrosis Incidental finding left renal cyst Ascites, also demonstrated on recent CT scan.
[2017-09-09 20:00] VITALS: BP 140/91
--- NOTE | 2017-09-09 20:15 | Consultation ---
DATE OF CONSULTATION: 09/09/2017 PULMONARY CONSULTATION CONSULTING PHYSICIAN: Ilya Cao M.D. REFERRING PHYSICIAN: Winston Jin M.D. REASON FOR CONSULTATION: Pleural effusion. HISTORY OF PRESENT ILLNESS: The patient is a very pleasant, yet unfortunate 62-year-old male with a history of cardiomyopathy, defibrillator, hepatitis C, chronic ascites, paroxysmal atrial fibrillation status post ablation with redo ablation, on anticoagulation, presenting with abdominal pain. He was actually admitted with similar complaints in November 2016. Nonetheless, upon presenting to the emergency department, T-max has been 99.8, but otherwise afebrile. His vitals have been stable and saturating well on room air. However, a CT of the abdomen and pelvis was done, which showed a small albeit decreased right-sided pleural effusion. I have reviewed imaging myself. There was lack of contrast with a limited study. It also showed [id number] ascites, mild pulmonary edema, small pericardial effusion, colonic wall edema similar to the previous exam likely secondary to anasarca, but per the radiologist, coli cannot be ruled out and some mild gallbladder wall thickening, prostatomegaly, and cardiomegaly. The patient's workup was positive only for UTIs. His troponin is negative. Potassium is 5.2. His creatinine is 1.8. Urinalysis was positive and urine culture grew gram-negative bacilli. No chest x-ray has been done. He denies any respiratory complaints. He denies cough, wheezing, or hemoptysis. Denies shortness of breath. Denies fevers, chills, headache, or dizziness. He notes mild diffuse abdominal pain. Denies any nausea or vomiting. He is tolerating p.o. and having normal bowel movements. He denies dysuria, urgency, hesitancy, or frequency. PAST MEDICAL HISTORY: 1. Congestive heart failure with ischemic cardiomyopathy. 2. History of atrial fibrillation/flutter, status post ablation, 3. Hepatitis B. 4. Hepatitis C. 5. Chronic obstructive pulmonary disease. 6. Chronic abdominal pain. 7. Chronic low back pain. 8. Lumbar radiculopathy. 9. Cirrhosis. 10. Hypothyroidism. 11. Recurrent ascites. ALLERGIES: Hydromorphone. MEDICATIONS: Prior to admission medications, ProAir, Coreg, digoxin, Lasix, gabapentin, Prevacid, Synthroid, lisinopril, Reglan, multivitamin, oxycodone, Xarelto, Aldactone, and Ambien. SOCIAL HISTORY: No tobacco, alcohol, or drug use. He states he drinks at home. FAMILY HISTORY: Noncontributory. REVIEW OF SYSTEMS: Negative other than history of present illness. PHYSICAL EXAMINATION: VITAL SIGNS: Temperature 98, pulse 80, blood pressure , respiratory rate 17, and saturating 98% on room air. GENERAL: A well-developed and well-nourished male in no acute distress. Awake, alert, and oriented x3. HEENT: Normocephalic and atraumatic. Oropharynx is clear. Moist mucous membranes. NECK: Supple without lymphadenopathy or jugular venous distention. CHEST: Clear to auscultation bilaterally. HEART: Regular rate and rhythm. ABDOMEN: Soft, nontender, and nondistended. EXTREMITIES: No cyanosis, clubbing, or edema. ANCILLARY DATA: White count 6.5, hemoglobin 11.5, and platelet count 299,000. INR 1.6. Sodium 137, potassium 5.2, chloride 107, bicarb 23, BUN 46, creatinine 1.8, glucose 129, and calcium 9. Total bilirubin 2.3. Direct bilirubin 0.9. AST 25, ALT 27, and alkaline phosphatase 26. Ammonia 26. Total protein 7.9. Albumin 3.5. Globulin 4.4. Urinalysis, 1+ ketones, 1+ blood, negative nitrites, 1+ leukocyte esterase, and moderate bacteria. Urine culture, gram-negative bacillus. CT abdomen and pelvis, decreased small right-sided pleural effusion, ascites, pericardial effusion, small mild pulmonary edema, colonic wall edema, anasarca, prostatomegaly, and cardiomegaly. ASSESSMENT: The patient is a 62-year-old male with a history of congestive heart failure, ischemic cardiomyopathy, defibrillator, and atrial fibrillation, on anticoagulation presenting with vague diffuse abdominal pain with increased ascites and abnormal LFTs. Small pleural effusion is noted, which is decreased from prior. He has no respiratory symptoms. I suspect it is secondary to heart failure. At this point, it does not need to urgently be drained and I am unsure if drainage would be safe. PROBLEM LIST: 1. Small right-sided pleural effusion, likely secondary to congestive heart failure. 2. Congestive heart failure with ischemic cardiomyopathy. 3. Atrial fibrillation status post ablation in the past, on anticoagulation. 4. Abnormal LFTs and ascites. 5. History of hepatitis B, hepatitis C, and cirrhosis. 6. History of hypertension. 7. Hypothyroidism. 8. Acute kidney injury. 9. Anemia. TREATMENT PLAN: 1. Optimize pulmonary hygiene/mobilize as tolerated. 2. We will obtain a chest x-ray. 3. Continue p.r.n. Proventil MDI. 4. Monitor for signs of respiratory distress. 5. Followup Cardiology recommendations, continue p.o. Lasix for now, we will obtain a 2D echocardiogram. 6. Monitor volumes and renal function, renal evaluation is pending, a renal ultrasound and urine studies have been ordered. 7. Aspiration precautions. 8. DVT prophylaxis with Xarelto. 9. Continue Rocephin for urinary tract infection. 10. Follow up final sensitivity. 11. The patient is Full Code. Dr. Jin, thank you for allowing me to assist in the care of your patient. If I may be of any assistance in the future, please do not hesitate to ask. Ilya Cao M.D. DR: JOSE LUIS JOB#: [id number] CC:
--- NOTE | 2017-09-09 21:16 | General Progress Note ---
Assessment/Plan Problem List: (1) Cirrhosis ICD Codes: K74.60 - Unspecified cirrhosis of liver SNOMED: 05351384 (2) Hepatitis C ICD Codes: B19.20 - Hepatitis C SNOMED: 71152141 (3) Hypothyroidism ICD Codes: E03.9 - Hypothyroidism SNOMED: 93616101 (4) Lumbar spondylosis ICD Codes: M47.816 - Spondylosis without myelopathy or radiculopathy, lumbar region SNOMED: 231609122 (5) Cardiomyopathy due to hypertension, with heart failure ICD Codes: I11.0 - Cardiomyopathy due to hypertension, with heart failure; I42.9 - Cardiomyopathy, unspecified SNOMED: 80007691 (6) Right-sided heart failure ICD Codes: I50.9 - Right-sided heart failure SNOMED: 386716308 (7) EF < 20% Status: progressing Assessment/Plan abdominal pain cirrhosis s/p paracentesis cardiomyopathy chf hcv reviewed chart and labs Subjective ROS Limited/Unobtainable: Yes Allergies: Coded Allergies: HYDROMORPHONE (Verified Allergy, Unknown, 12/28/10) Objective Last 24 Hour Vital Signs Date Time Temp Pulse Resp B/P (MAP) Pulse Ox O2 Delivery O2 Flow Rate FiO2 09/09/17 20:39 78 140/91 09/09/17 20:00 97.2 78 20 140/91 96 97.2 09/09/17 19:34 89 16 Room Air 21 09/09/17 16:00 97.0 75 18 119/74 100 97.0 09/09/17 12:00 98.0 80 17 105/70 98 Room Air 98.0 09/09/17 09:48 95 16 Room Air 21 09/09/17 09:16 138/109 09/09/17 09:16 92 138/109 09/09/17 08:00 97.8 92 19 138/109 100 Room Air 97.8 09/09/17 04:00 98.2 80 21 131/82 99 98.2 09/09/17 00:00 99.8 85 18 155/100 98 Bi-pap 99.8 Intake and Output 09/08/17 09/09/17 19:00 07:00 # Voids 1 2 Laboratory Tests 09/09/17 09:04: White Blood Count 6.5, Red Blood Count 4.27L, Hemoglobin 11.5L, Hematocrit 37.6L , Mean Corpuscular Volume 88, Mean Corpuscular Hemoglobin 27.0, Mean Corpuscular Hemoglobin Concent 30.6L, Red Cell Distribution Width 22.0H, Platelet Count 299, Mean Platelet Volume 6.9, Neutrophils (%) (Auto) 66.0, Lymphocytes (%) (Auto) 19.3L, Monocytes (%) (Auto) 11.8H, Eosinophils (%) (Auto ) 0.4, Basophils (%) (Auto) 2.6H, Sodium Level 137, Potassium Level 5.2H, Chloride Level 103, Carbon Dioxide Level 23, Anion Gap 11, Blood Urea Nitrogen 46H, Creatinine 1.8H, Estimat Glomerular Filtration Rate 46.3, Glucose Level 129H, Osmolality 306, Calcium Level 9.0, Total Bilirubin 2.3H, Direct Bilirubin 0.9H, Aspartate Amino Transf (AST/SGOT) 25, Alanine Aminotransferase (ALT/SGPT) 27, Alkaline Phosphatase 106, Ammonia 26, Pro-B-Type Natriuretic Peptide > 70969Q, Total Protein 7.9, Albumin 3.5, Globulin 4.4, Albumin/Globulin Ratio 0.8L 09/09/17 15:04: Urine Eosinophils None seen, Urine Osmolality 424L, Urine Random Sodium 108, Urine Creatinine 35.0 Height (Feet): 5 Height (Inches): 9.00 Weight (Pounds): 150 Abdomen: tender Winston Jin MD Sep 09, 2017 21:16
--- NOTE | 2017-09-09 22:30 | Consultation ---
DATE OF CONSULTATION: 09/09/2017 INFECTIOUS DISEASES CONSULTATION CONSULTING PHYSICIAN: Tonny Villafuerte M.D. PRIMARY ATTENDING PHYSICIAN: Shahid Cherry D.O. REASON FOR CONSULTATION: UTI, ascites. HISTORY OF PRESENT ILLNESS: This is a 62-year-old male with history of cirrhosis of liver, admitted last night complaining of abdominal pain. No fever and leukocytosis. The patient just complains of pain. PAST MEDICAL HISTORY: Significant for cirrhosis, hypertension, status post pacemaker, COPD, hypothyroidism, and coronary artery disease. ALLERGIES: Hydromorphone. MEDICATIONS: Gabapentin, metoclopramide, Proventil, carvedilol, Lasix, levothyroxine, multivitamin, rivaroxaban, Aldactone, and [place]. SOCIAL HISTORY: Lives at home. Single. Denies alcohol, drug abuse, or smoking. REVIEW OF SYSTEMS: No fever. No chills. He has occasional dry cough. Complains of generalized abdominal pain. No urinary symptoms. PHYSICAL EXAMINATION: GENERAL APPEARANCE: No acute distress. VITAL SIGNS: Temperature 98 degrees, T-max is 99.8 degrees, pulse 80, and blood pressure 105/70. HEAD AND NECK: [place] conjunctivae. HEART: Regular. LUNGS: Clear. ABDOMEN: Distended with ascites, tender. EXTREMITY: He has no edema. NEUROLOGIC: Awake, alert, and oriented. LABORATORY AND DIAGNOSTIC DATA: WBC 6.5, hemoglobin 11.5, hematocrit 37.6 and platelet 299. Sodium 137, potassium 5.2, chloride 103, bicarbonate 23, BUN 46, and creatinine 1.8. Bilirubin is 2.3. Urine grew gram-negative bacilli. The patient's CT scan of the abdomen and pelvis that showed [id number] amount of ascites, right-sided effusion decreased from previous admission in the last year and cardiomegaly. IMPRESSION: 1. Gram-negative UTI bacteriuria. 2. The patient has cirrhosis with ascites, we will try to rule out spontaneous bacterial peritonitis. 3. Treated hepatitis C . 4. History of COPD. 5. History of hypothyroidism. 6. The patient also has acute renal failure. RECOMMENDATION: We will continue Rocephin. We will follow up abdominal ultrasound. We will try to coordinate with GI specialist for possible paracentesis and peritoneal fluid culture. At the end of my exam, I thank Dr. Shahid Cherry for involving me in the care of this patient. Tonny Villafuerte M.D. DR: KRISTIN JOB#: [id number] CC: [facility]
[2017-09-10 04:00] VITALS: BP 109/66
--- NOTE | 2017-09-10 06:00 | History and Physical Report ---
DATE OF ADMISSION: 09/08/2017 NOTE: POOR AUDIO I am covering for Dr. Shahid Cherry. This is Dr. Shahid Cherry's patient. HISTORY OF PRESENT ILLNESS: The patient comes in with abdominal pain and admitted for abdominal pain and cirrhosis. The patient had multiple paracentesis in the past. The patient also has a history of hepatitis C. The patient also noted to have episodes of vomiting. Denies rectal bleeding. No hematemesis. Denies fever or chills. PAST MEDICAL HISTORY: , cardiomyopathy, CHF, hypertension, arrhythmia, COPD, , cirrhosis, and hepatitis C. Atrial fibrillation, chronic pain syndrome, , hypothyroidism, and neuropathy. PAST SURGICAL HISTORY: paracentesis and pacemaker. History of PEG. ICD/pacemaker placed. ALLERGIES: Hydromorphone. MEDICATIONS: Coreg, digoxin, furosemide, gabapentin, , Levoxyl, lisinopril, multivitamin, oxycodone, Xarelto, and spironolactone. SOCIAL HISTORY: He has history of alcohol and drug abuse. REVIEW OF SYSTEMS: HEENT: Denies headaches. RESPIRATORY: He does have occasional shortness of breath. CARDIOVASCULAR: Denies chest pain. GASTROINTESTINAL: abdominal pain and vomiting noted. EXTREMITIES: . PHYSICAL EXAMINATION: VITAL SIGNS: Temperature 98 degrees, pulse is 80, and blood pressure 105/70. HEENT: PERRLA. NECK: Supple. CHEST: Clear to auscultation. ABDOMEN: Distended. Positive ascites. Positive bowel sounds. The patient is not in any distress. EXTREMITIES: Has 1+ edema. NEUROLOGIC: Reflexes on both sides. Moves all four extremities. LABORATORY AND DIAGNOSTIC DATA: WBC of 6.6, hemoglobin 11.5, and platelets of 301. Sodium 138, potassium 4.8, BUN of 33, creatinine 1.5 and glucose of 158. Total bilirubin 3.9. AST of 22 and ALT of 26. Ammonia is 21. ASSESSMENT AND PLAN: Abdominal pain due to cirrhosis. , Dr. Ryan has been consulted as well as Dr. Pearson and Dr. Cao for as well as to rule out infectious etiology as well as rule out pneumonia. Ali Sweetie Jin DR: CAROL JOB#: [id number] CC:
[2017-09-10] MEDS: Norco 5mg/325mg tab ORAL PRN ×3 (06:09→18:56)
[2017-09-10 07:08] LABS: BASOPHILS % (AUTO) 1.6 % (0.0-2.0); EOSINOPHILS % (AUTO) 1.6 % (0.0-3.0); HEMATOCRIT 34.2 % (42.0-52.0); HEMOGLOBIN 10.8 G/DL (14.2-18.0); LYMPHOCYTES % (AUTO) 21.4 % (20.0-45.0); MEAN CORPUSCULAR VOLUME 87 FL (80-99); MONOCYTES % (AUTO) 11.8 % (1.0-10.0); NEUTROPHILS % (AUTO) 63.6 % (45.0-75.0); PLATELET COUNT 253 K/UL (150-450); RED BLOOD COUNT 3.95 M/UL (4.70-6.10); RED CELL DISTRIBUTION WIDTH 21.3 % (11.6-14.8)
[2017-09-10 07:25] LABS: ALANINE AMINOTRANSFERASE 48 U/L (12-78); ALBUMIN 3.2 G/DL (3.4-5.0); ALBUMIN/GLOBULIN RATIO 0.8 (1.0-2.7); ALKALINE PHOSPHATASE 102 U/L (46-116); ANION GAP 8 mmol/L (5-15); ASPARTATE AMINO TRANSFERASE 43 U/L (15-37); BILIRUBIN,TOTAL 1.5 MG/DL (0.2-1.0); BLOOD UREA NITROGEN 44 mg/dL (7-18); CALCIUM 8.9 MG/DL (8.5-10.1); CARBON DIOXIDE 29 MMOL/L (21-32); CHLORIDE 100 MMOL/L (98-107); CREATININE 1.7 MG/DL (0.55-1.30); POTASSIUM 4.3 MMOL/L (3.5-5.1); SODIUM 137 MMOL/L (136-145)
[2017-09-10 07:27] LABS: AMMONIA 25 umol/L (11-32)
[2017-09-10 07:28] LABS: BILIRUBIN,DIRECT 0.5 MG/DL (0.0-0.3)
[2017-09-10 08:31] VITALS: BP 108/68
[2017-09-10 08:38] VITALS: BP 106/66
[2017-09-10] MEDS: Carvedilol 6.25mg Tab ORAL SCH ×2 (08:39→21:00)
[2017-09-10] MEDS: Lisinopril 10mg tab ORAL SCH (08:39)
[2017-09-10] MEDS: Furosemide 40mg tab ORAL SCH (08:39)
[2017-09-10] MEDS: Spironolactone 50mg tab ORAL SCH (08:51)
[2017-09-10] MEDS: Xarelto 10mg tab ORAL SCH (08:51)
--- NOTE | 2017-09-10 09:28 | Pulmonology Progress Note ---
Assessment/Plan Problems: (1) Right-sided heart failure (2) Cardiomyopathy due to hypertension, with heart failure (3) EF < 20% (4) Cirrhosis (5) Abdominal pain (6) Ascites (7) UTI (urinary tract infection) (8) Emphysema lung Assessment/Plan ASSESSMENT: The patient is a 62-year-old male with a history of congestive heart failure, ischemic cardiomyopathy, defibrillator, and atrial fibrillation, on anticoagulation presenting with vague diffuse abdominal pain with increased ascites and abnormal LFTs. Small pleural effusion is noted, which is decreased from prior. He has no respiratory symptoms. I suspect it is secondary to heart failure. At this point, it does not need to urgently be drained and I am unsure if drainage would be safe. PROBLEM LIST: 1. Small right-sided pleural effusion, likely secondary to congestive heart failure. 2. Congestive heart failure with ischemic cardiomyopathy. 3. Atrial fibrillation status post ablation in the past, on anticoagulation. 4. Abnormal LFTs and ascites. 5. History of hepatitis B, hepatitis C, and cirrhosis. 6. History of hypertension. 7. Hypothyroidism. 8. Acute kidney injury. 9. Anemia. TREATMENT PLAN: 1. Optimize pulmonary hygiene/mobilize as tolerated. 2. PRN Proventil HHN 3. CXR findings need to be followed to resolution 4. Monitor for signs of respiratory distress. 5. Followup Cardiology recommendations, PO lasix 6. Monitor volumes and renal function, consider renal eval 7. Aspiration precautions. 8. DVT prophylaxis with Xarelto. 9. Continue Rocephin per ID 10. Follow up GI recs, trend LFT's, ? paracentesis 11. The patient is Full Code. Subjective Allergies: Coded Allergies: HYDROMORPHONE (Verified Allergy, Unknown, 12/28/10) Subjective AFVSS, stable on RA, no cough, no SOB, no F/C + abd pain, no NVDC, ren CLD Cr better, LFT's better LVEF 20-25%, CXR with hazy opacity R base, ? effusion vs edema Objective Last 24 Hour Vital Signs Date Time Temp Pulse Resp B/P (MAP) Pulse Ox O2 Delivery O2 Flow Rate FiO2 09/10/17 08:39 106/66 09/10/17 08:39 76 106/66 09/10/17 08:38 76 106/66 09/10/17 08:31 97.3 72 20 108/68 99 Room Air 97.3 09/10/17 07:21 91 16 Room Air 21 09/10/17 04:00 97.3 76 20 109/66 99 97.3 09/10/17 04:00 Room Air 09/09/17 20:39 78 140/91 09/09/17 20:00 97.2 78 20 140/91 96 97.2 09/09/17 20:00 Room Air 09/09/17 19:34 89 16 Room Air 21 09/09/17 16:00 97.0 75 18 119/74 100 97.0 09/09/17 12:00 98.0 80 17 105/70 98 Room Air 98.0 09/09/17 09:48 95 16 Room Air 21 Intake and Output 09/09/17 09/10/17 19:00 07:00 Intake Total 240 ml Output Total 300 ml 400 ml Balance -60 ml -400 ml Intake Oral 240 ml Output Urine Total 300 ml 400 ml # Voids 3 General Appearance: WD/WN, no acute distress HEENT: normocephalic, atraumatic, anicteric, mucous membranes moist Respiratory/Chest: chest wall non-tender, lungs clear, normal breath sounds, no respiratory distress, no accessory muscle use Cardiovascular: normal peripheral pulses, normal rate, regular rhythm Abdomen: normal bowel sounds, soft, non tender, no organomegaly, non distended Extremities: no cyanosis, no clubbing, no edema Microbiology Date/Time Source Procedure Growth Status 09/08/17 15:03 Urine,Clean Catch Urine Culture - Preliminary Gram Negative Bacillus 1 Resulted Laboratory Tests 09/09/17 15:04: Urine Eosinophils None seen, Urine Osmolality 424L, Urine Random Sodium 108, Urine Creatinine 35.0 09/10/17 05:50: White Blood Count 5.0, Red Blood Count 3.95L, Hemoglobin 10.8L, Hematocrit 34.2L , Mean Corpuscular Volume 87, Mean Corpuscular Hemoglobin 27.4, Mean Corpuscular Hemoglobin Concent 31.6L, Red Cell Distribution Width 21.3H, Platelet Count 253, Mean Platelet Volume 6.2L, Neutrophils (%) (Auto) 63.6, Lymphocytes (%) (Auto) 21.4, Monocytes (%) (Auto) 11.8H, Eosinophils (%) (Auto) 1.6, Basophils (%) (Auto) 1.6, Sodium Level 137, Potassium Level 4.3, Chloride Level 100, Carbon Dioxide Level 29, Anion Gap 8, Blood Urea Nitrogen 44H, Creatinine 1.7H, Estimat Glomerular Filtration Rate 49.4, Glucose Level 93, Calcium Level 8.9, Total Bilirubin 1.5H, Direct Bilirubin 0.5H, Aspartate Amino Transf (AST/SGOT) 43H, Alanine Aminotransferase (ALT/SGPT) 48, Alkaline Phosphatase 102, Ammonia 25, Total Protein 7.3, Albumin 3.2L, Globulin 4.1, Albumin/Globulin Ratio 0.8L Current Medications Medications (Trade) Dose Ordered Sig/Allyn Route PRN Reason Start Time Stop Time Status Last Admin Dose Admin Acetaminophen/ Hydrocodone Bitart ([place] 5/325) 1 tab Q6H PRN ORAL PAIN 4-10 09/09/17 08:15 09/16/17 08:14 09/10/17 06:09 Albuterol Sulfate (Proventil MDI) 1 puff Q6H PRN INH Shortness of Breath 09/09/17 09:30 10/09/17 09:29 Carvedilol (Coreg) 6.25 mg EVERY 12 HOURS ORAL 09/09/17 09:00 10/09/17 08:59 09/09/17 20:39 Ceftriaxone Sodium 1 gm/ Dextrose 110 ml @ 220 mls/hr Q24H IVPB 09/09/17 16:00 09/16/17 15:59 09/09/17 16:50 Furosemide (Lasix) 40 mg Q12HR ORAL 09/09/17 09:00 10/09/17 08:59 09/09/17 20:39 Gabapentin (Neurontin) 100 mg Q8HR ORAL 09/09/17 14:00 10/09/17 13:59 09/10/17 06:08 Levothyroxine Sodium (Synthroid) 88 mcg ACBREAKFAST ORAL 09/09/17 09:00 10/09/17 08:59 09/10/17 06:08 Lisinopril (Zestril) 10 mg DAILY ORAL 09/09/17 09:00 10/09/17 08:59 09/09/17 09:16 Multivitamins (Multivitamins) 2 tab DAILY ORAL 09/09/17 09:00 4/26/18 08:59 09/10/17 08:50 Pantoprazole (Protonix) 40 mg DAILY ORAL 09/09/17 09:00 10/09/17 08:59 09/10/17 08:50 Rivaroxaban (Xarelto) 20 mg DAILY ORAL 09/09/17 09:00 10/09/17 08:59 09/10/17 08:51 Spironolactone (Aldactone) 50 mg DAILY ORAL 09/09/17 09:00 10/09/17 08:59 09/10/17 08:51 ALBA HERNANDEZ M.D. Sep 10, 2017 09:28
[2017-09-10 12:00] VITALS: BP 121/80
--- NOTE | 2017-09-10 12:34 | Infectious Diseases Prog Note ---
Assessment/Plan Assessment/Plan A; UTI Ascites COPD Systolic CHF Fatty liver/? cirrhosis Acute renal failure Treated hepatitis C P: Continue Rocephin Paracentesis Subjective ROS Limited/Unobtainable: No Constitutional: Reports: no symptoms Respiratory: Reports: no symptoms Gastrointestinal/Abdominal: Reports: other - pain Genitourinary: Reports: dysuria, other - sometimes Neurologic: Reports: no symptoms Musculoskeletal: Reports: no symptoms Allergies: Coded Allergies: HYDROMORPHONE (Verified Allergy, Unknown, 12/28/10) Objective Vital Signs Last 24 Hour Vital Signs Date Time Temp Pulse Resp B/P (MAP) Pulse Ox O2 Delivery O2 Flow Rate FiO2 09/10/17 12:00 97.7 71 20 121/80 99 Room Air 97.7 09/10/17 08:39 106/66 09/10/17 08:39 76 106/66 09/10/17 08:38 76 106/66 09/10/17 08:31 97.3 72 20 108/68 99 Room Air 97.3 09/10/17 07:21 91 16 Room Air 21 09/10/17 04:00 97.3 76 20 109/66 99 97.3 09/10/17 04:00 Room Air 09/09/17 20:39 78 140/91 09/09/17 20:00 97.2 78 20 140/91 96 97.2 09/09/17 20:00 Room Air 09/09/17 19:34 89 16 Room Air 21 09/09/17 16:00 97.0 75 18 119/74 100 97.0 Height (Feet): 5 Height (Inches): 9.00 Weight (Pounds): 150 General Appearance: no acute distress HEENT: mucous membranes moist Respiratory/Chest: lungs clear Cardiovascular: normal rate, pacemaker/AICD Abdomen: distended Extremities: no edema Neurologic/Psychiatric: alert, oriented x 3, responsive Microbiology Date/Time Source Procedure Growth Status 09/08/17 15:03 Urine,Clean Catch Urine Culture - Preliminary Klebsiella Pneumoniae Gram Positive Cocci Resulted Laboratory Tests Test 09/09/17 15:04 09/10/17 05:50 Urine Eosinophils None seen Urine Osmolality 424 mOsm/kg (429-449) L Urine Random Sodium 108 mmol/L (20-110) Urine Creatinine 35.0 MG/DL (30.0-125.0) White Blood Count 5.0 K/UL (4.8-10.8) Red Blood Count 3.95 M/UL (4.70-6.10) L Hemoglobin 10.8 G/DL (14.2-18.0) L Hematocrit 34.2 % (42.0-52.0) L Mean Corpuscular Volume 87 FL (80-99) Mean Corpuscular Hemoglobin 27.4 PG (27.0-31.0) Mean Corpuscular Hemoglobin Concent 31.6 G/DL (32.0-36.0) L Red Cell Distribution Width 21.3 % (11.6-14.8) H Platelet Count 253 K/UL (150-450) Mean Platelet Volume 6.2 FL (6.5-10.1) L Neutrophils (%) (Auto) 63.6 % (45.0-75.0) Lymphocytes (%) (Auto) 21.4 % (20.0-45.0) Monocytes (%) (Auto) 11.8 % (1.0-10.0) H Eosinophils (%) (Auto) 1.6 % (0.0-3.0) Basophils (%) (Auto) 1.6 % (0.0-2.0) Sodium Level 137 MMOL/L (136-145) Potassium Level 4.3 MMOL/L (3.5-5.1) Chloride Level 100 MMOL/L (98-107) Carbon Dioxide Level 29 MMOL/L (21-32) Anion Gap 8 mmol/L (5-15) Blood Urea Nitrogen 44 mg/dL (7-18) H Creatinine 1.7 MG/DL (0.55-1.30) H Estimat Glomerular Filtration Rate 49.4 mL/min (>60) Glucose Level 93 MG/DL (74-106) Calcium Level 8.9 MG/DL (8.5-10.1) Total Bilirubin 1.5 MG/DL (0.2-1.0) H Direct Bilirubin 0.5 MG/DL (0.0-0.3) H Aspartate Amino Transf (AST/SGOT) 43 U/L (15-37) H Alanine Aminotransferase (ALT/SGPT) 48 U/L (12-78) Alkaline Phosphatase 102 U/L (46-116) Ammonia 25 umol/L (11-32) Total Protein 7.3 G/DL (6.4-8.2) Albumin 3.2 G/DL (3.4-5.0) L Globulin 4.1 g/dL Albumin/Globulin Ratio 0.8 (1.0-2.7) L Current Medications Medications (Trade) Dose Ordered Sig/Allyn Route PRN Reason Start Time Stop Time Status Last Admin Dose Admin Acetaminophen/ Hydrocodone Bitart ([place] 5/325) 1 tab Q6H PRN ORAL PAIN 4-10 09/09/17 08:15 09/16/17 08:14 09/10/17 06:09 Albuterol Sulfate (Proventil MDI) 1 puff Q6H PRN INH Shortness of Breath 09/09/17 09:30 10/09/17 09:29 Carvedilol (Coreg) 6.25 mg EVERY 12 HOURS ORAL 09/09/17 09:00 10/09/17 08:59 09/09/17 20:39 Ceftriaxone Sodium 1 gm/ Dextrose 110 ml @ 220 mls/hr Q24H IVPB 09/09/17 16:00 09/16/17 15:59 09/09/17 16:50 Furosemide (Lasix) 40 mg Q12HR ORAL 09/09/17 09:00 10/09/17 08:59 09/09/17 20:39 Gabapentin (Neurontin) 100 mg Q8HR ORAL 09/09/17 14:00 10/09/17 13:59 09/10/17 06:08 Levothyroxine Sodium (Synthroid) 88 mcg ACBREAKFAST ORAL 09/09/17 09:00 10/09/17 08:59 09/10/17 06:08 Lisinopril (Zestril) 10 mg DAILY ORAL 09/09/17 09:00 10/09/17 08:59 09/09/17 09:16 Multivitamins (Multivitamins) 2 tab DAILY ORAL 09/09/17 09:00 10/09/17 08:59 09/10/17 08:50 Pantoprazole (Protonix) 40 mg DAILY ORAL 09/09/17 09:00 10/09/17 08:59 09/10/17 08:50 Rivaroxaban (Xarelto) 20 mg DAILY ORAL 09/09/17 09:00 10/09/17 08:59 09/10/17 08:51 Spironolactone (Aldactone) 50 mg DAILY ORAL 09/09/17 09:00 10/09/17 08:59 09/10/17 08:51 DAVID WOOTEN Sep 10, 2017 12:34
--- NOTE | 2017-09-10 12:41 | GI Progress Note ---
Assessment/Plan Problems: (1) Hepatitis C ICD Codes: B19.20 - Hepatitis C SNOMED: 17909948 (2) Right-sided heart failure ICD Codes: I50.9 - Right-sided heart failure SNOMED: 920734841 (3) Cirrhosis ICD Codes: K74.60 - Unspecified cirrhosis of liver SNOMED: 19020106 (4) Abdominal pain ICD Codes: R10.9 - Abdominal pain SNOMED: 13461102 (5) Ascites ICD Codes: R18.8 - Ascites SNOMED: 530356349 (6) Pain ICD Codes: R52 - Pain SNOMED: 27171272 Status: unchanged Status Narrative Discussed with Dr. Ryan. Assessment/Plan hx of Hep C s/p tx >> hep panel 2017 negative APCT reviewed >> moderate ascites + pleural effusion s/p colonoscopy with one polyp 06/26/16 No evidence of cirrhosis symptomatic treatment Lasix Aldactone adv low sodium diet ppi dc reglan given elevated creatinine levels pain mgmt fu labs The patient was seen and examined at bedside and all new and available data was reviewed in the patients chart. I agree with the above findings, impression and plan. (Patient seen earlier today. Signature stamp does not reflect patient encounter time.). - Wan Ryan MD Subjective Subjective abdominal pain Objective Last 24 Hour Vital Signs Date Time Temp Pulse Resp B/P (MAP) Pulse Ox O2 Delivery O2 Flow Rate FiO2 09/10/17 12:00 97.7 71 20 121/80 99 Room Air 97.7 09/10/17 08:39 106/66 09/10/17 08:39 76 106/66 09/10/17 08:38 76 106/66 09/10/17 08:31 97.3 72 20 108/68 99 Room Air 97.3 09/10/17 07:21 91 16 Room Air 21 09/10/17 04:00 97.3 76 20 109/66 99 97.3 09/10/17 04:00 Room Air 09/09/17 20:39 78 140/91 09/09/17 20:00 97.2 78 20 140/91 96 97.2 09/09/17 20:00 Room Air 09/09/17 19:34 89 16 Room Air 21 09/09/17 16:00 97.0 75 18 119/74 100 97.0 Intake and Output 09/09/17 09/10/17 19:00 07:00 Intake Total 240 ml Output Total 300 ml 400 ml Balance -60 ml -400 ml Intake Oral 240 ml Output Urine Total 300 ml 400 ml # Voids 3 Laboratory Tests Test 09/09/17 15:04 09/10/17 05:50 Urine Eosinophils None seen Urine Osmolality 424 mOsm/kg (429-449) L Urine Random Sodium 108 mmol/L (20-110) Urine Creatinine 35.0 MG/DL (30.0-125.0) White Blood Count 5.0 K/UL (4.8-10.8) Red Blood Count 3.95 M/UL (4.70-6.10) L Hemoglobin 10.8 G/DL (14.2-18.0) L Hematocrit 34.2 % (42.0-52.0) L Mean Corpuscular Volume 87 FL (80-99) Mean Corpuscular Hemoglobin 27.4 PG (27.0-31.0) Mean Corpuscular Hemoglobin Concent 31.6 G/DL (32.0-36.0) L Red Cell Distribution Width 21.3 % (11.6-14.8) H Platelet Count 253 K/UL (150-450) Mean Platelet Volume 6.2 FL (6.5-10.1) L Neutrophils (%) (Auto) 63.6 % (45.0-75.0) Lymphocytes (%) (Auto) 21.4 % (20.0-45.0) Monocytes (%) (Auto) 11.8 % (1.0-10.0) H Eosinophils (%) (Auto) 1.6 % (0.0-3.0) Basophils (%) (Auto) 1.6 % (0.0-2.0) Sodium Level 137 MMOL/L (136-145) Potassium Level 4.3 MMOL/L (3.5-5.1) Chloride Level 100 MMOL/L (98-107) Carbon Dioxide Level 29 MMOL/L (21-32) Anion Gap 8 mmol/L (5-15) Blood Urea Nitrogen 44 mg/dL (7-18) H Creatinine 1.7 MG/DL (0.55-1.30) H Estimat Glomerular Filtration Rate 49.4 mL/min (>60) Glucose Level 93 MG/DL (74-106) Calcium Level 8.9 MG/DL (8.5-10.1) Total Bilirubin 1.5 MG/DL (0.2-1.0) H Direct Bilirubin 0.5 MG/DL (0.0-0.3) H Aspartate Amino Transf (AST/SGOT) 43 U/L (15-37) H Alanine Aminotransferase (ALT/SGPT) 48 U/L (12-78) Alkaline Phosphatase 102 U/L (46-116) Ammonia 25 umol/L (11-32) Total Protein 7.3 G/DL (6.4-8.2) Albumin 3.2 G/DL (3.4-5.0) L Globulin 4.1 g/dL Albumin/Globulin Ratio 0.8 (1.0-2.7) L Height (Feet): 5 Height (Inches): 9.00 Weight (Pounds): 150 General Appearance: WD/WN, no apparent distress, alert Cardiovascular: normal rate Respiratory/Chest: normal breath sounds, no respiratory distress Abdominal Exam: normal bowel sounds, non tender, soft Extremities: normal range of motion, non-tender Chanel Bird N.PEmily Sep 10, 2017 12:41 PALAK RYAN Sep 11, 2017 14:09
[2017-09-10] MEDS: cefTRIAXone 1 GM in D5W 110 ML IVPB SCH (15:12)
--- NOTE | 2017-09-10 15:47 | Cardiac Electrophysiology PN ---
Subjective Subjective CARDIOLOGY/EP CONSULT DICTATED 8941266 Objective Last 24 Hour Vital Signs Date Time Temp Pulse Resp B/P (MAP) Pulse Ox O2 Delivery O2 Flow Rate FiO2 09/10/17 12:59 97.7 09/10/17 12:00 97.7 71 20 121/80 99 Room Air 97.7 09/10/17 08:39 106/66 09/10/17 08:39 76 106/66 09/10/17 08:38 76 106/66 09/10/17 08:31 97.3 72 20 108/68 99 Room Air 97.3 09/10/17 07:21 91 16 Room Air 21 09/10/17 04:00 97.3 76 20 109/66 99 97.3 09/10/17 04:00 Room Air 09/09/17 20:39 78 140/91 09/09/17 20:00 97.2 78 20 140/91 96 97.2 09/09/17 20:00 Room Air 09/09/17 19:34 89 16 Room Air 21 09/09/17 16:00 97.0 75 18 119/74 100 97.0 Intake and Output 09/09/17 09/10/17 19:00 07:00 Intake Total 240 ml Output Total 300 ml 400 ml Balance -60 ml -400 ml Intake Oral 240 ml Output Urine Total 300 ml 400 ml # Voids 3 Laboratory Tests Test 09/10/17 05:50 White Blood Count 5.0 K/UL (4.8-10.8) Red Blood Count 3.95 M/UL (4.70-6.10) L Hemoglobin 10.8 G/DL (14.2-18.0) L Hematocrit 34.2 % (42.0-52.0) L Mean Corpuscular Volume 87 FL (80-99) Mean Corpuscular Hemoglobin 27.4 PG (27.0-31.0) Mean Corpuscular Hemoglobin Concent 31.6 G/DL (32.0-36.0) L Red Cell Distribution Width 21.3 % (11.6-14.8) H Platelet Count 253 K/UL (150-450) Mean Platelet Volume 6.2 FL (6.5-10.1) L Neutrophils (%) (Auto) 63.6 % (45.0-75.0) Lymphocytes (%) (Auto) 21.4 % (20.0-45.0) Monocytes (%) (Auto) 11.8 % (1.0-10.0) H Eosinophils (%) (Auto) 1.6 % (0.0-3.0) Basophils (%) (Auto) 1.6 % (0.0-2.0) Sodium Level 137 MMOL/L (136-145) Potassium Level 4.3 MMOL/L (3.5-5.1) Chloride Level 100 MMOL/L (98-107) Carbon Dioxide Level 29 MMOL/L (21-32) Anion Gap 8 mmol/L (5-15) Blood Urea Nitrogen 44 mg/dL (7-18) H Creatinine 1.7 MG/DL (0.55-1.30) H Estimat Glomerular Filtration Rate 49.4 mL/min (>60) Glucose Level 93 MG/DL (74-106) Calcium Level 8.9 MG/DL (8.5-10.1) Total Bilirubin 1.5 MG/DL (0.2-1.0) H Direct Bilirubin 0.5 MG/DL (0.0-0.3) H Aspartate Amino Transf (AST/SGOT) 43 U/L (15-37) H Alanine Aminotransferase (ALT/SGPT) 48 U/L (12-78) Alkaline Phosphatase 102 U/L (46-116) Ammonia 25 umol/L (11-32) Total Protein 7.3 G/DL (6.4-8.2) Albumin 3.2 G/DL (3.4-5.0) L Globulin 4.1 g/dL Albumin/Globulin Ratio 0.8 (1.0-2.7) L Microbiology Date/Time Source Procedure Growth Status 09/08/17 15:03 Urine,Clean Catch Urine Culture - Preliminary Klebsiella Pneumoniae Gram Positive Cocci Resulted Rc Zhang MD Sep 10, 2017 15:47
[2017-09-10 16:00] VITALS: BP 108/79
--- NOTE | 2017-09-10 17:54 | General Progress Note ---
Assessment/Plan Problem List: (1) Cirrhosis ICD Codes: K74.60 - Unspecified cirrhosis of liver SNOMED: 33881143 (2) Hepatitis C ICD Codes: B19.20 - Hepatitis C SNOMED: 70803858 (3) Hypothyroidism ICD Codes: E03.9 - Hypothyroidism SNOMED: 38592795 (4) Lumbar spondylosis ICD Codes: M47.816 - Spondylosis without myelopathy or radiculopathy, lumbar region SNOMED: 829384840 (5) Cardiomyopathy due to hypertension, with heart failure ICD Codes: I11.0 - Cardiomyopathy due to hypertension, with heart failure; I42.9 - Cardiomyopathy, unspecified SNOMED: 27625073 (6) Right-sided heart failure ICD Codes: I50.9 - Right-sided heart failure SNOMED: 566407719 (7) EF < 20% Status: progressing Assessment/Plan abdominal pain persent cirrhosis s/p paracentesis cardiomyopathy chf no significant dyspnea Subjective Gastrointestinal/Abdominal: Reports: abdominal pain Allergies: Coded Allergies: HYDROMORPHONE (Verified Allergy, Unknown, 12/28/10) Objective Last 24 Hour Vital Signs Date Time Temp Pulse Resp B/P (MAP) Pulse Ox O2 Delivery O2 Flow Rate FiO2 09/10/17 16:00 97.0 75 20 108/79 100 Room Air 97.0 09/10/17 12:59 97.7 09/10/17 12:00 97.7 71 20 121/80 99 Room Air 97.7 09/10/17 08:39 106/66 09/10/17 08:39 76 106/66 09/10/17 08:38 76 106/66 09/10/17 08:31 97.3 72 20 108/68 99 Room Air 97.3 09/10/17 07:21 91 16 Room Air 21 09/10/17 04:00 97.3 76 20 109/66 99 97.3 09/10/17 04:00 Room Air 09/09/17 20:39 78 140/91 09/09/17 20:00 97.2 78 20 140/91 96 97.2 09/09/17 20:00 Room Air 09/09/17 19:34 89 16 Room Air 21 Intake and Output 09/09/17 09/10/17 19:00 07:00 Intake Total 240 ml Output Total 300 ml 400 ml Balance -60 ml -400 ml Intake Oral 240 ml Output Urine Total 300 ml 400 ml # Voids 3 Laboratory Tests 09/10/17 05:50: White Blood Count 5.0, Red Blood Count 3.95L, Hemoglobin 10.8L, Hematocrit 34.2L , Mean Corpuscular Volume 87, Mean Corpuscular Hemoglobin 27.4, Mean Corpuscular Hemoglobin Concent 31.6L, Red Cell Distribution Width 21.3H, Platelet Count 253, Mean Platelet Volume 6.2L, Neutrophils (%) (Auto) 63.6, Lymphocytes (%) (Auto) 21.4, Monocytes (%) (Auto) 11.8H, Eosinophils (%) (Auto) 1.6, Basophils (%) (Auto) 1.6, Sodium Level 137, Potassium Level 4.3, Chloride Level 100, Carbon Dioxide Level 29, Anion Gap 8, Blood Urea Nitrogen 44H, Creatinine 1.7H, Estimat Glomerular Filtration Rate 49.4, Glucose Level 93, Calcium Level 8.9, Total Bilirubin 1.5H, Direct Bilirubin 0.5H, Aspartate Amino Transf (AST/SGOT) 43H, Alanine Aminotransferase (ALT/SGPT) 48, Alkaline Phosphatase 102, Ammonia 25, Total Protein 7.3, Albumin 3.2L, Globulin 4.1, Albumin/Globulin Ratio 0.8L Height (Feet): 5 Height (Inches): 9.00 Weight (Pounds): 150 Abdomen: tender Winston Jin MD Sep 10, 2017 17:54
[2017-09-10] MEDS ORDERED: NS 275ml ONE (17:57)
[2017-09-10] MEDS ORDERED: Tubing IV Secondary IV ONE (17:57)
[2017-09-10 20:00] VITALS: BP 110/73
[2017-09-11] MEDS: Norco 5mg/325mg tab ORAL PRN ×4 (01:06→20:02)
[2017-09-11 04:00] VITALS: BP 96/60
[2017-09-11 08:00] VITALS: BP 102/72
--- NOTE | 2017-09-11 08:46 | Consultation ---
DATE OF CONSULTATION: 09/10/2017 CARDIOLOGY CONSULTATION REFERRING PHYSICIAN: Shahid Cherry D.O. REASON FOR CONSULTATION: Management of congestive heart failure and evaluation of the patient's defibrillator. HISTORY OF PRESENT ILLNESS: The patient is a 62-year-old gentleman under my Cardiology care for many years with multiple hospitalizations including most recent one at [facility] just within the last one month. The patient has history of severe cardiomyopathy with ejection fraction about 15% to 20% and history of defibrillator implantation that needs to be replaced. The patient also has COPD, history of hepatitis C, and ascites. The patient was admitted to the hospital complaining of abdominal pain, but did not have any fever or leukocytosis. A Cardiology consultation was obtained for further evaluation and management. PAST MEDICAL HISTORY: Includes: 1. Hypertension. 2. Severe cardiomyopathy. 3. History of [employer] defibrillator implantation and subsequent generator change by in in November 2012. 4. Paroxysmal atrial fibrillation and history of ablation of all four pulmonary veins by Dr. Bowman at [facility] in 2010. 5. Status post atrial flutter and redo ablation of all four pulmonary veins by me in July 2016 at [facility]. 6. Hepatitis C. 7. Ascites. 8. History of multiple paracentesis in the past. SOCIAL HISTORY: He lives alone. Does not smoke or drink alcohol. FAMILY HISTORY: Noncontributory. REVIEW OF SYSTEMS: Review of systems was thoroughly performed and was negative other than what was mentioned in the history of present illness. PHYSICAL EXAMINATION: VITAL SIGNS: Showed blood pressure of 121/80, pulse 71, respirations 18, and temperature 97.7 degrees. HEAD AND NECK: Show positive JVD. LUNGS: Decreased breath sounds. CARDIOVASCULAR: Shows irregular S1 and S2 with no gallop. Defibrillator in left subclavian. ABDOMEN: Tender. EXTREMITIES: Have 1+ pitting edema. LABORATORY AND DIAGNOSTIC DATA: His labs show white count 5, hemoglobin 10.8, hematocrit 34.2, and platelet count 253,000. Sodium is 137, potassium 4.3, BUN of 44, creatinine 1.7, and glucose of 93. His BNP is more than 35,000. Troponin is negative. ASSESSMENT AND PLAN: 1. Severe cardiomyopathy with ejection fraction of around 20% percent. Repeat echocardiogram showed ejection fraction of 15% to 20%. The patient also has severe pulmonary hypertension. I will continue the patient's current heart failure therapy including Coreg 6.25 mg b.i.d., Lasix 40 mg b.i.d., lisinopril 10 mg daily, and Aldactone 50 mg daily. 2. Paroxysmal atrial fibrillation, status post two prior ablations on Xarelto 20 mg daily and Coreg 6.25 mg b.i.d. 3. Status post [employer] ICD upgraded to biventricular defibrillator. [employer] defibrillator generator change with battery longevity about three years. The patient however has dysfunctional right ventricular lead and needs to be changed when the patient is more stable. 4. Hepatitis C and ascites. 5. Abdominal pain. Further evaluation by Dr. Ryan. 6. Right-sided heart failure on Lasix. 7. Hepatitis C. Thank you very much, Dr. Cherry, for allowing me to participate in the care of this patient. Please do not hesitate to contact me for any questions regarding my evaluation. Rc Zhang M.D. DR: Karina JOB#: [id number] CC:
[2017-09-11] MEDS: Xarelto 10mg tab ORAL SCH (09:00)
--- NOTE | 2017-09-11 09:22 | Pulmonology Progress Note ---
Assessment/Plan Problems: (1) Right-sided heart failure (2) Cardiomyopathy due to hypertension, with heart failure (3) EF < 20% (4) Cirrhosis (5) Abdominal pain (6) Ascites (7) UTI (urinary tract infection) (8) Emphysema lung Assessment/Plan ASSESSMENT: The patient is a 62-year-old male with a history of congestive heart failure, ischemic cardiomyopathy, defibrillator, and atrial fibrillation, on anticoagulation presenting with vague diffuse abdominal pain with increased ascites and abnormal LFTs. Small pleural effusion is noted, which is decreased from prior. He has no respiratory symptoms. I suspect it is secondary to heart failure. At this point, it does not need to urgently be drained and I am unsure if drainage would be safe. PROBLEM LIST: 1. Small right-sided pleural effusion, likely secondary to congestive heart failure. 2. Congestive heart failure with ischemic cardiomyopathy. 3. Atrial fibrillation status post ablation in the past, on anticoagulation. 4. Abnormal LFTs and ascites. 5. History of hepatitis B, hepatitis C, and cirrhosis. 6. History of hypertension. 7. Hypothyroidism. 8. Acute kidney injury. 9. Anemia. TREATMENT PLAN: 1. Optimize pulmonary hygiene/mobilize as tolerated. 2. PRN Proventil HHN 3. CXR findings need to be followed to resolution 4. Monitor for signs of respiratory distress. 5. Followup Cardiology recommendations, IV lasix per cards 6. Monitor volumes and renal function, consider renal eval 7. Aspiration precautions. 8. DVT prophylaxis with Xarelto. 9. Continue Rocephin per ID 10. Follow up GI recs, trend LFT's, OCTO paracentesis 11. The patient is Full Code. Subjective Allergies: Coded Allergies: HYDROMORPHONE (Verified Allergy, Unknown, 12/28/10) Subjective AFVSS, stable on RA, no cough, no SOB, no F/C + abd pain, no NVDC, ren CLD Klebsiella and G+C in urine Awaiting para Objective Last 24 Hour Vital Signs Date Time Temp Pulse Resp B/P (MAP) Pulse Ox O2 Delivery O2 Flow Rate FiO2 09/11/17 04:00 97.8 76 19 96/60 100 Room Air 97.8 09/11/17 00:00 100 Room Air 09/10/17 21:00 76 110/73 09/10/17 20:00 97.7 76 18 110/73 98 Room Air 97.7 09/10/17 20:00 98 Room Air 09/10/17 19:30 80 16 Room Air 21 09/10/17 16:00 97.0 75 20 108/79 100 Room Air 97.0 09/10/17 12:59 97.7 09/10/17 12:00 97.7 71 20 121/80 99 Room Air 97.7 Intake and Output 09/10/17 09/11/17 18:59 06:59 Intake Total 350 ml Output Total 500 ml 1750 ml Balance -150 ml -1750 ml Intake Oral 240 ml IV Total 110 ml Output Urine Total 500 ml 1750 ml # Voids 7 5 General Appearance: WD/WN, no acute distress HEENT: normocephalic, atraumatic, anicteric, mucous membranes moist Respiratory/Chest: chest wall non-tender, lungs clear, normal breath sounds, no respiratory distress, no accessory muscle use Cardiovascular: normal peripheral pulses, normal rate, regular rhythm Abdomen: normal bowel sounds, soft, non tender, no organomegaly, distended Extremities: no cyanosis, no clubbing, no edema Microbiology Date/Time Source Procedure Growth Status 09/08/17 15:03 Urine,Clean Catch Urine Culture - Preliminary Klebsiella Pneumoniae Gram Positive Cocci Resulted Current Medications Medications (Trade) Dose Ordered Sig/Allyn Route PRN Reason Start Time Stop Time Status Last Admin Dose Admin Acetaminophen/ Hydrocodone Bitart ([place] 5/325) 1 tab Q6H PRN ORAL PAIN 4-10 09/09/17 08:15 09/16/17 08:14 09/11/17 06:59 Albuterol Sulfate (Proventil MDI) 1 puff Q6H PRN INH Shortness of Breath 09/09/17 09:30 10/09/17 09:29 Carvedilol (Coreg) 6.25 mg EVERY 12 HOURS ORAL 09/09/17 09:00 10/09/17 08:59 09/09/17 20:39 Ceftriaxone Sodium 1 gm/ Dextrose 110 ml @ 220 mls/hr Q24H IVPB 09/09/17 16:00 09/16/17 15:59 09/10/17 15:12 Furosemide (Lasix) 40 mg EVERY 12 HOURS IV 09/10/17 21:00 10/10/17 20:59 09/10/17 22:39 Gabapentin (Neurontin) 100 mg Q8HR ORAL 09/09/17 14:00 10/09/17 13:59 09/11/17 05:44 Levothyroxine Sodium (Synthroid) 88 mcg ACBREAKFAST ORAL 09/09/17 09:00 10/09/17 08:59 09/11/17 05:44 Lisinopril (Zestril) 10 mg DAILY ORAL 09/09/17 09:00 10/09/17 08:59 09/09/17 09:16 Multivitamins (Multivitamins) 2 tab DAILY ORAL 09/09/17 09:00 10/09/17 08:59 09/10/17 08:50 Pantoprazole (Protonix) 40 mg DAILY ORAL 09/09/17 09:00 10/09/17 08:59 09/10/17 08:50 Rivaroxaban (Xarelto) 20 mg DAILY ORAL 09/09/17 09:00 10/09/17 08:59 09/10/17 08:51 Spironolactone (Aldactone) 50 mg DAILY ORAL 09/09/17 09:00 10/09/17 08:59 09/10/17 08:51 ALBA HERNANDEZ M.D. Sep 11, 2017 09:22
--- NOTE | 2017-09-11 10:13 | GI Progress Note ---
Assessment/Plan Problems: (1) Hepatitis C ICD Codes: B19.20 - Hepatitis C SNOMED: 98464823 (2) Right-sided heart failure ICD Codes: I50.9 - Right-sided heart failure SNOMED: 142931468 (3) Cirrhosis ICD Codes: K74.60 - Unspecified cirrhosis of liver SNOMED: 20221943 (4) Abdominal pain ICD Codes: R10.9 - Abdominal pain SNOMED: 09942367 (5) Ascites ICD Codes: R18.8 - Ascites SNOMED: 328509720 (6) Pain ICD Codes: R52 - Pain SNOMED: 42396769 Status: unchanged Status Narrative Discussed with Dr. Ryan. Assessment/Plan hx of Hep C in 2014 s/p tx >> hep panel redrawn in 2016 was negative APCT reviewed >> moderate ascites + pleural effusion s/p colonoscopy with one polyp 06/26/16 No evidence of cirrhosis symptomatic treatment Lasix Aldactone adv low sodium diet ppi pain mgmt fu labs Subjective Subjective abdominal pain Objective Last 24 Hour Vital Signs Date Time Temp Pulse Resp B/P (MAP) Pulse Ox O2 Delivery O2 Flow Rate FiO2 09/11/17 08:00 97.2 77 20 102/72 100 Room Air 97.2 09/11/17 04:00 97.8 76 19 96/60 100 Room Air 97.8 09/11/17 00:00 100 Room Air 09/10/17 21:00 76 110/73 09/10/17 20:00 97.7 76 18 110/73 98 Room Air 97.7 09/10/17 20:00 98 Room Air 09/10/17 19:30 80 16 Room Air 21 09/10/17 16:00 97.0 75 20 108/79 100 Room Air 97.0 09/10/17 12:59 97.7 09/10/17 12:00 97.7 71 20 121/80 99 Room Air 97.7 Intake and Output 09/10/17 09/11/17 19:00 07:00 Intake Total 350 ml Output Total 500 ml 1750 ml Balance -150 ml -1750 ml Intake Oral 240 ml IV Total 110 ml Output Urine Total 500 ml 1750 ml # Voids 7 5 Height (Feet): 5 Height (Inches): 9.00 Weight (Pounds): 150 General Appearance: WD/WN, no apparent distress, alert Cardiovascular: normal rate Respiratory/Chest: normal breath sounds, no respiratory distress Abdominal Exam: normal bowel sounds, non tender, soft Extremities: normal range of motion, non-tender Chanel Bird N.P. Sep 11, 2017 10:13
[2017-09-11] MEDS: Spironolactone 50mg tab ORAL SCH (10:47)
[2017-09-11] MEDS: Carvedilol 6.25mg Tab ORAL SCH ×2 (10:47→20:07)
[2017-09-11] MEDS: Lisinopril 10mg tab ORAL SCH (10:47)
[2017-09-11 12:00] VITALS: BP 127/88
--- NOTE | 2017-09-11 13:38 | Infectious Diseases Prog Note ---
Assessment/Plan Assessment/Plan A; UTI with E.coli & enterococcus Ascites insufficient for paracentesis COPD Systolic CHF Fatty liver/? cirrhosis Acute renal failure Treated hepatitis C P: discontinue Rocephin start on Levaquin Subjective ROS Limited/Unobtainable: No Constitutional: Reports: other - feeling better Respiratory: Reports: no symptoms Cardiovascular: Reports: no symptoms Gastrointestinal/Abdominal: Reports: other - abdominal pain controlled Genitourinary: Reports: no symptoms Allergies: Coded Allergies: HYDROMORPHONE (Verified Allergy, Unknown, 12/28/10) Objective Vital Signs Last 24 Hour Vital Signs Date Time Temp Pulse Resp B/P (MAP) Pulse Ox O2 Delivery O2 Flow Rate FiO2 09/11/17 12:00 97.3 73 20 127/88 98 Room Air 97.3 09/11/17 10:47 116/74 09/11/17 10:47 75 116/74 09/11/17 08:00 97.2 77 20 102/72 100 Room Air 97.2 09/11/17 07:35 78 16 Room Air 21 09/11/17 04:00 97.8 76 19 96/60 100 Room Air 97.8 09/11/17 00:00 100 Room Air 09/10/17 21:00 76 110/73 09/10/17 20:00 97.7 76 18 110/73 98 Room Air 97.7 09/10/17 20:00 98 Room Air 09/10/17 19:30 80 16 Room Air 21 09/10/17 16:00 97.0 75 20 108/79 100 Room Air 97.0 Height (Feet): 5 Height (Inches): 9.00 Weight (Pounds): 150 General Appearance: no acute distress HEENT: mucous membranes moist Respiratory/Chest: lungs clear Cardiovascular: normal rate Abdomen: distended Extremities: no edema Neurologic/Psychiatric: alert, oriented x 3, responsive Microbiology Date/Time Source Procedure Growth Status 09/08/17 15:03 Urine,Clean Catch Urine Culture - Final Klebsiella Pneumoniae Enterococcus Faecalis Complete Current Medications Medications (Trade) Dose Ordered Sig/Allyn Route PRN Reason Start Time Stop Time Status Last Admin Dose Admin Acetaminophen/ Hydrocodone Bitart ([place] 5/325) 1 tab Q6H PRN ORAL PAIN 4-10 09/09/17 08:15 09/16/17 08:14 09/11/17 06:59 Albuterol Sulfate (Proventil MDI) 1 puff Q6H PRN INH Shortness of Breath 09/09/17 09:30 10/09/17 09:29 Carvedilol (Coreg) 6.25 mg EVERY 12 HOURS ORAL 09/09/17 09:00 10/09/17 08:59 09/11/17 10:47 Ceftriaxone Sodium 1 gm/ Dextrose 110 ml @ 220 mls/hr Q24H IVPB 09/09/17 16:00 09/16/17 15:59 09/10/17 15:12 Furosemide (Lasix) 40 mg EVERY 12 HOURS IV 09/10/17 21:00 10/10/17 20:59 09/11/17 10:48 Gabapentin (Neurontin) 100 mg Q8HR ORAL 09/09/17 14:00 10/09/17 13:59 09/11/17 05:44 Levothyroxine Sodium (Synthroid) 88 mcg ACBREAKFAST ORAL 09/09/17 09:00 10/09/17 08:59 09/11/17 05:44 Lisinopril (Zestril) 10 mg DAILY ORAL 09/09/17 09:00 10/09/17 08:59 09/11/17 10:47 Multivitamins (Multivitamins) 2 tab DAILY ORAL 09/09/17 09:00 10/09/17 08:59 09/11/17 10:47 Pantoprazole (Protonix) 40 mg DAILY ORAL 09/09/17 09:00 10/09/17 08:59 09/11/17 10:47 Rivaroxaban (Xarelto) 20 mg DAILY ORAL 09/09/17 09:00 10/09/17 08:59 09/10/17 08:51 Spironolactone (Aldactone) 50 mg DAILY ORAL 09/09/17 09:00 10/09/17 08:59 09/11/17 10:47 DAVID WOOTEN Sep 11, 2017 13:38
--- NOTE | 2017-09-11 15:24 | Diagnostic Imaging Report ---
Indication: Abdominal distention, suspected ascites, evaluation of the peritoneal space in anticipation of paracentesis Technique: Grayscale and duplex images of all 4 quadrants Comparison: Reference made to 09/09/2017 renal ultrasound, 09/08/2017 CT scan Findings: Only trace ascites is demonstrated. No individual pocket large enough for safe paracentesis is demonstrated Impression: Trace ascites, insufficient for paracentesis. No procedure performed
--- NOTE | 2017-09-11 15:40 | Cardiac Electrophysiology PN ---
Assessment/Plan Assessment/Plan 1. Severe cardiomyopathy with ejection fraction of around 20% percent. Repeat echocardiogram showed ejection fraction of 15% to 20%. The patient also has severe pulmonary hypertension. I will continue Coreg 6.25 mg b.i.d., Lasix 40 mg iv b.i.d., lisinopril 10 mg daily, and Aldactone 50 mg daily. 2. Paroxysmal atrial fibrillation, status post two prior ablations on Xarelto 20 mg daily and Coreg 6.25 mg b.i.d. 3. Status post [employer] ICD upgraded to biventricular defibrillator. [employer] defibrillator generator change with battery longevity about three years. The patient however has dysfunctional right ventricular lead and needs to be changed when the patient is more stable. 4. Hepatitis C and ascites. 5. Abdominal pain. Further evaluation by Dr. Ryan. 6. Right-sided heart failure on Lasix. 7. Hepatitis C. DW RN Subjective Subjective Did not have enough Ascites for paracentesis. SOB is better. Objective Last 24 Hour Vital Signs Date Time Temp Pulse Resp B/P (MAP) Pulse Ox O2 Delivery O2 Flow Rate FiO2 09/11/17 13:47 97.3 09/11/17 12:00 97.3 73 20 127/88 98 Room Air 97.3 09/11/17 10:47 116/74 09/11/17 10:47 75 116/74 09/11/17 08:00 97.2 77 20 102/72 100 Room Air 97.2 09/11/17 07:35 78 16 Room Air 09/11/17 04:00 97.8 76 19 96/60 100 Room Air 97.8 09/11/17 00:00 100 Room Air 09/10/17 21:00 76 110/73 09/10/17 20:00 97.7 76 18 110/73 98 Room Air 97.7 09/10/17 20:00 98 Room Air 09/10/17 19:30 80 16 Room Air 21 09/10/17 16:00 97.0 75 20 108/79 100 Room Air 97.0 Intake and Output 09/10/17 09/11/17 19:00 07:00 Intake Total 350 ml Output Total 500 ml 1750 ml Balance -150 ml -1750 ml Intake Oral 240 ml IV Total 110 ml Output Urine Total 500 ml 1750 ml # Voids 7 5 Objective HEAD AND NECK: Show positive JVD. LUNGS: Decreased breath sounds. CARDIOVASCULAR: Shows irregular S1 and S2 with no gallop. Defibrillator in left subclavian. ABDOMEN: Tender. EXTREMITIES: Have 1+ pitting edema. Rc Zhang MD Sep 11, 2017 15:40
[2017-09-11 16:00] VITALS: BP 110/75
--- NOTE | 2017-09-11 16:17 | Physician Query ---
--------- THIS DOCUMENT IS A PERMANENT PART OF THE MEDICAL RECORD --------- PLEASE COMPLETE THE DOCUMENT BEFORE SIGNING Dear ALVARADO Austin Date: 09/11/17 Workforce Staffing Advisor/CDS Name: Ambar Cantor Workforce Staffing Advisor / CDS Phone #[phone] Exercise your independent professional judgment when responding to query. Question asked do not imply a particular answer is desired/expected Clinical Documentation States: "Heart Failure / CHF" documented in: Progress Note (09/10/17) Cardiomyopathy due to hypertension, with heart failure Right-sided heart failure EF < 20% Clinical Findings Show: BNP >42233 Diuretic: IV Furosemide 40 mg Echocardiogram: diastolic dysfunction grade 3 Other Meds: Spironolactone 50 mg oral Please Clarify: Acuity [] Acute [] Chronic [] Acute on Chronic Type [] Systolic [] Diastolic [] Systolic & Diastolic (Combined) [] Left Heart failure [] Other: Etiology [] CHF due to Hypertension [] Cardiomyopathy [] Valvular Heart Disease [] Coronary Artery Disease [] Unable to determine [] Other: Condition Present on Admission: [] Yes [] No []Clinically Undeterminable Please also document in your Progress Notes and/or Discharge Summary and indicate if the condition was present on admission. Dr. ALVARADO MORENO Date/Time [facility]
[2017-09-11 20:00] VITALS: BP 105/69
--- NOTE | 2017-09-11 20:03 | General Progress Note ---
Assessment/Plan Problem List: (1) Cirrhosis ICD Codes: K74.60 - Unspecified cirrhosis of liver SNOMED: 99883633 (2) Hepatitis C ICD Codes: B19.20 - Hepatitis C SNOMED: 79664231 (3) Hypothyroidism ICD Codes: E03.9 - Hypothyroidism SNOMED: 64204149 (4) Lumbar spondylosis ICD Codes: M47.816 - Spondylosis without myelopathy or radiculopathy, lumbar region SNOMED: 186135978 (5) Cardiomyopathy due to hypertension, with heart failure ICD Codes: I11.0 - Cardiomyopathy due to hypertension, with heart failure; I42.9 - Cardiomyopathy, unspecified SNOMED: 20675069 (6) Right-sided heart failure ICD Codes: I50.9 - Right-sided heart failure SNOMED: 715132056 (7) EF < 20% Status: progressing Assessment/Plan abdominal pain persent cirrhosis no vomit reviewed chart and lab cardiomyopathy chf Subjective ROS Limited/Unobtainable: Yes Gastrointestinal/Abdominal: Reports: abdominal pain Allergies: Coded Allergies: HYDROMORPHONE (Verified Allergy, Unknown, 12/28/10) Objective Last 24 Hour Vital Signs Date Time Temp Pulse Resp B/P (MAP) Pulse Ox O2 Delivery O2 Flow Rate FiO2 09/11/17 16:00 97.7 78 20 110/75 99 Room Air 97.7 09/11/17 13:47 97.3 09/11/17 12:00 97.3 73 20 127/88 98 Room Air 97.3 09/11/17 10:47 116/74 09/11/17 10:47 75 116/74 09/11/17 08:00 97.2 77 20 102/72 100 Room Air 97.2 09/11/17 07:35 78 16 Room Air 21 09/11/17 04:00 97.8 76 19 96/60 100 Room Air 97.8 09/11/17 00:00 100 Room Air 09/10/17 21:00 76 110/73 Intake and Output 09/10/17 09/11/17 19:00 07:00 Intake Total 350 ml Output Total 500 ml 1750 ml Balance -150 ml -1750 ml Intake Oral 240 ml IV Total 110 ml Output Urine Total 500 ml 1750 ml # Voids 7 5 Height (Feet): 5 Height (Inches): 9.00 Weight (Pounds): 150 Neck: supple Cardiovascular: normal rate Respiratory/Chest: lungs clear Abdomen: tender Winston Jin MD Sep 11, 2017 20:03
[2017-09-12] MEDS: Norco 5mg/325mg tab ORAL PRN ×3 (02:34→18:51)
[2017-09-12 04:00] VITALS: BP 104/75
[2017-09-12 07:49] LABS: HEMATOCRIT 36.1 % (42.0-52.0); HEMOGLOBIN 11.2 G/DL (14.2-18.0); MEAN CORPUSCULAR VOLUME 87 FL (80-99); PLATELET COUNT 228 K/UL (150-450); RED BLOOD COUNT 4.14 M/UL (4.70-6.10); RED CELL DISTRIBUTION WIDTH 21.6 % (11.6-14.8); WHITE BLOOD COUNT 3.1 K/UL (4.8-10.8)
[2017-09-12 08:14] LABS: ALANINE AMINOTRANSFERASE 51 U/L (12-78); ALBUMIN 2.8 G/DL (3.4-5.0); ALBUMIN/GLOBULIN RATIO 0.7 (1.0-2.7); ALKALINE PHOSPHATASE 102 U/L (46-116); ANION GAP 4 mmol/L (5-15); ASPARTATE AMINO TRANSFERASE 28 U/L (15-37); BILIRUBIN,TOTAL 0.9 MG/DL (0.2-1.0); BLOOD UREA NITROGEN 27 mg/dL (7-18); CALCIUM 8.3 MG/DL (8.5-10.1); CARBON DIOXIDE 35 MMOL/L (21-32); CHLORIDE 97 MMOL/L (98-107); CREATININE 1.3 MG/DL (0.55-1.30); POTASSIUM 3.7 MMOL/L (3.5-5.1); SODIUM 136 MMOL/L (136-145)
[2017-09-12] MEDS: Xarelto 10mg tab ORAL SCH (08:45)
[2017-09-12] MEDS: Spironolactone 50mg tab ORAL SCH (08:45)
[2017-09-12] MEDS: Carvedilol 6.25mg Tab ORAL SCH ×2 (08:46→21:00)
[2017-09-12] MEDS: Lisinopril 10mg tab ORAL SCH (08:46)
[2017-09-12 09:00] VITALS: BP 100/75
--- NOTE | 2017-09-12 09:23 | Pulmonology Progress Note ---
Assessment/Plan Problems: (1) Right-sided heart failure (2) Cardiomyopathy due to hypertension, with heart failure (3) EF < 20% (4) Cirrhosis (5) Abdominal pain (6) Ascites (7) UTI (urinary tract infection) (8) Emphysema lung Assessment/Plan ASSESSMENT: The patient is a 62-year-old male with a history of congestive heart failure, ischemic cardiomyopathy, defibrillator, and atrial fibrillation, on anticoagulation presenting with vague diffuse abdominal pain with increased ascites and abnormal LFTs. Small pleural effusion is noted, which is decreased from prior. He has no respiratory symptoms. I suspect it is secondary to heart failure. At this point, it does not need to urgently be drained and I am unsure if drainage would be safe. PROBLEM LIST: 1. Small right-sided pleural effusion, likely secondary to congestive heart failure. 2. Congestive heart failure with ischemic cardiomyopathy. 3. Atrial fibrillation status post ablation in the past, on anticoagulation. 4. Abnormal LFTs and ascites - IMPROVED 5. History of hepatitis B, hepatitis C, and cirrhosis. 6. History of hypertension. 7. Hypothyroidism. 8. Acute kidney injury. 9. Anemia. TREATMENT PLAN: 1. Optimize pulmonary hygiene/mobilize as tolerated. 2. PRN Proventil HHN 3. Repeat CXR 4. Monitor for signs of respiratory distress. 5. Followup Cardiology recommendations, IV lasix per cards 6. Monitor volumes and renal function, 7. Aspiration precautions. 8. DVT prophylaxis with Xarelto. 9. Continue Rocephin and Levaquin per ID 10. Follow up GI recs 11. The patient is Full Code. Subjective Allergies: Coded Allergies: HYDROMORPHONE (Verified Allergy, Unknown, 12/28/10) Subjective AFVSS, stable on RA, no cough, no SOB, no F/C less abd pain, no NVDC, ren CLD Klebsiella and G+C in urine Insufficient fluid for para Objective Last 24 Hour Vital Signs Date Time Temp Pulse Resp B/P (MAP) Pulse Ox O2 Delivery O2 Flow Rate FiO2 09/12/17 08:46 100/75 09/12/17 08:46 76 100/75 09/12/17 04:00 97.7 77 20 104/75 98 97.7 09/11/17 20:45 81 16 Room Air 21 09/11/17 20:07 77 110/71 09/11/17 20:00 98.0 76 19 105/69 99 Room Air 98.0 09/11/17 16:00 97.7 78 20 110/75 99 Room Air 97.7 09/11/17 13:47 97.3 09/11/17 12:00 97.3 73 20 127/88 98 Room Air 97.3 09/11/17 10:47 116/74 09/11/17 10:47 75 116/74 Intake and Output 09/11/17 09/12/17 19:00 07:00 Intake Total 750 ml 340 ml Output Total 500 ml 1320 ml Balance 250 ml -980 ml Intake Oral 750 ml 340 ml Output Urine Total 500 ml 1320 ml # Voids 5 2 General Appearance: WD/WN, no acute distress HEENT: normocephalic, atraumatic, anicteric, mucous membranes moist Respiratory/Chest: chest wall non-tender, lungs clear, normal breath sounds, no respiratory distress Cardiovascular: normal peripheral pulses, normal rate, regular rhythm Abdomen: normal bowel sounds, soft, non tender, no organomegaly, non distended Extremities: no cyanosis, no clubbing, no edema Laboratory Tests 09/12/17 06:35: White Blood Count 3.1L, Red Blood Count 4.14L, Hemoglobin 11.2L, Hematocrit 36.1L, Mean Corpuscular Volume 87, Mean Corpuscular Hemoglobin 27.0, Mean Corpuscular Hemoglobin Concent 31.0L, Red Cell Distribution Width 21.6H, Platelet Count 228, Mean Platelet Volume 6.2L, Neutrophils (%) (Auto) , Lymphocytes (%) (Auto) , Monocytes (%) (Auto) , Eosinophils (%) (Auto) , Basophils (%) (Auto) , Differential Total Cells Counted 100, Neutrophils % ( Manual) 57, Lymphocytes % (Manual) 31, Monocytes % (Manual) 11H, Eosinophils % ( Manual) 1, Basophils % (Manual) 0, Band Neutrophils 0, Platelet Estimate Adequate, Platelet Morphology Normal, Hypochromasia 1+, Anisocytosis 2+, Sodium Level 136, Potassium Level 3.7, Chloride Level 97L, Carbon Dioxide Level 35H, Anion Gap 4L, Blood Urea Nitrogen 27H, Creatinine 1.3, Estimat Glomerular Filtration Rate > 60, Glucose Level 109H, Calcium Level 8.3L, Total Bilirubin 0.9, Aspartate Amino Transf (AST/SGOT) 28, Alanine Aminotransferase (ALT/SGPT) 51, Alkaline Phosphatase 102, Total Protein 7.0, Albumin 2.8L, Globulin 4.2, Albumin/Globulin Ratio 0.7L Current Medications Medications (Trade) Dose Ordered Sig/Allyn Route PRN Reason Start Time Stop Time Status Last Admin Dose Admin Acetaminophen/ Hydrocodone Bitart ([place] 5/325) 1 tab Q6H PRN ORAL PAIN 4-10 09/09/17 08:15 09/16/17 08:14 09/12/17 02:34 Albuterol Sulfate (Proventil MDI) 1 puff Q6H PRN INH Shortness of Breath 09/09/17 09:30 10/09/17 09:29 Carvedilol (Coreg) 6.25 mg EVERY 12 HOURS ORAL 09/09/17 09:00 10/09/17 08:59 09/11/17 20:07 Furosemide (Lasix) 40 mg EVERY 12 HOURS IV 09/10/17 21:00 10/10/17 20:59 09/12/17 08:45 Gabapentin (Neurontin) 100 mg Q8HR ORAL 09/09/17 14:00 10/09/17 13:59 09/12/17 05:44 Levofloxacin (Levaquin) 250 mg Q24H ORAL 09/11/17 14:00 09/18/17 13:59 09/11/17 15:02 Levothyroxine Sodium (Synthroid) 88 mcg ACBREAKFAST ORAL 09/09/17 09:00 10/09/17 08:59 09/12/17 05:45 Lisinopril (Zestril) 10 mg DAILY ORAL 09/09/17 09:00 10/09/17 08:59 09/11/17 10:47 Multivitamins (Multivitamins) 2 tab DAILY ORAL 09/09/17 09:00 10/09/17 08:59 09/12/17 08:45 Pantoprazole (Protonix) 40 mg DAILY ORAL 09/09/17 09:00 10/09/17 08:59 09/12/17 08:45 Rivaroxaban (Xarelto) 20 mg DAILY ORAL 09/09/17 09:00 10/09/17 08:59 09/12/17 08:45 Spironolactone (Aldactone) 50 mg DAILY ORAL 09/09/17 09:00 10/09/17 08:59 09/12/17 08:45 ALBA HERNANDEZ M.D. Sep 12, 2017 09:23
--- NOTE | 2017-09-12 11:43 | General Progress Note ---
Assessment/Plan Problem List: (1) Emphysema lung ICD Codes: J43.9 - Emphysema lung SNOMED: 08534708 (2) EF < 20% (3) Cardiomyopathy due to hypertension, with heart failure ICD Codes: I11.0 - Cardiomyopathy due to hypertension, with heart failure; I42.9 - Cardiomyopathy, unspecified SNOMED: 47915777 (4) Hepatitis C ICD Codes: B19.20 - Hepatitis C SNOMED: 17076588 (5) Colon polyps ICD Codes: K63.5 - Polyp of colon SNOMED: 57591135 (6) Hypothyroidism ICD Codes: E03.9 - Hypothyroidism, unspecified SNOMED: 50202354 (7) Ascites ICD Codes: R18.8 - Ascites SNOMED: 689063807 Assessment/Plan not enough fluid for paracentesis ascites most likely cardiac origin on diuretics refused laxatives fu Subjective Allergies: Coded Allergies: HYDROMORPHONE (Verified Allergy, Unknown, 12/28/10) All Systems: reviewed and negative except above Objective Last 24 Hour Vital Signs Date Time Temp Pulse Resp B/P (MAP) Pulse Ox O2 Delivery O2 Flow Rate FiO2 09/12/17 08:46 100/75 09/12/17 08:46 76 100/75 09/12/17 04:00 97.7 77 20 104/75 98 97.7 09/11/17 20:45 81 16 Room Air 21 09/11/17 20:07 77 110/71 09/11/17 20:00 98.0 76 19 105/69 99 Room Air 98.0 09/11/17 16:00 97.7 78 20 110/75 99 Room Air 97.7 09/11/17 13:47 97.3 09/11/17 12:00 97.3 73 20 127/88 98 Room Air 97.3 Intake and Output 09/11/17 09/12/17 19:00 07:00 Intake Total 750 ml 340 ml Output Total 500 ml 1320 ml Balance 250 ml -980 ml Intake Oral 750 ml 340 ml Output Urine Total 500 ml 1320 ml # Voids 5 2 Laboratory Tests 09/12/17 06:35: White Blood Count 3.1L, Red Blood Count 4.14L, Hemoglobin 11.2L, Hematocrit 36.1L, Mean Corpuscular Volume 87, Mean Corpuscular Hemoglobin 27.0, Mean Corpuscular Hemoglobin Concent 31.0L, Red Cell Distribution Width 21.6H, Platelet Count 228, Mean Platelet Volume 6.2L, Neutrophils (%) (Auto) , Lymphocytes (%) (Auto) , Monocytes (%) (Auto) , Eosinophils (%) (Auto) , Basophils (%) (Auto) , Differential Total Cells Counted 100, Neutrophils % ( Manual) 57, Lymphocytes % (Manual) 31, Monocytes % (Manual) 11H, Eosinophils % ( Manual) 1, Basophils % (Manual) 0, Band Neutrophils 0, Platelet Estimate Adequate, Platelet Morphology Normal, Hypochromasia 1+, Anisocytosis 2+, Sodium Level 136, Potassium Level 3.7, Chloride Level 97L, Carbon Dioxide Level 35H, Anion Gap 4L, Blood Urea Nitrogen 27H, Creatinine 1.3, Estimat Glomerular Filtration Rate > 60, Glucose Level 109H, Calcium Level 8.3L, Total Bilirubin 0.9, Aspartate Amino Transf (AST/SGOT) 28, Alanine Aminotransferase (ALT/SGPT) 51, Alkaline Phosphatase 102, Total Protein 7.0, Albumin 2.8L, Globulin 4.2, Albumin/Globulin Ratio 0.7L Height (Feet): 5 Height (Inches): 9.00 Weight (Pounds): 150 General Appearance: alert EENT: normal ENT inspection Neck: supple Cardiovascular: normal rate Respiratory/Chest: decreased breath sounds Abdomen: normal bowel sounds, non tender, soft Extremities: non-tender PALAK BILLINGSLEY Sep 12, 2017 11:43
[2017-09-12 12:00] VITALS: BP 117/70
--- NOTE | 2017-09-12 12:27 | Infectious Diseases Prog Note ---
Assessment/Plan Assessment/Plan A; UTI with E.coli & enterococcus Ascites insufficient for paracentesis COPD Systolic CHF Fatty liver/? cirrhosis Acute renal failure Treated hepatitis C P: continue Levaquin X 2 days Subjective ROS Limited/Unobtainable: No Constitutional: Reports: no symptoms Cardiovascular: Reports: no symptoms Gastrointestinal/Abdominal: Reports: other - left upper abdominal pain Genitourinary: Reports: no symptoms Musculoskeletal: Reports: no symptoms Allergies: Coded Allergies: HYDROMORPHONE (Verified Allergy, Unknown, 12/28/10) Objective Vital Signs Last 24 Hour Vital Signs Date Time Temp Pulse Resp B/P (MAP) Pulse Ox O2 Delivery O2 Flow Rate FiO2 09/12/17 08:46 100/75 09/12/17 08:46 76 100/75 09/12/17 04:00 97.7 77 20 104/75 98 97.7 09/11/17 20:45 81 16 Room Air 21 09/11/17 20:07 77 110/71 09/11/17 20:00 98.0 76 19 105/69 99 Room Air 98.0 09/11/17 16:00 97.7 78 20 110/75 99 Room Air 97.7 09/11/17 13:47 97.3 Height (Feet): 5 Height (Inches): 9.00 Weight (Pounds): 150 General Appearance: no acute distress HEENT: mucous membranes moist Respiratory/Chest: lungs clear Cardiovascular: normal rate Abdomen: distended Extremities: no edema Neurologic/Psychiatric: alert, oriented x 3, responsive Laboratory Tests Test 09/12/17 06:35 White Blood Count 3.1 K/UL (4.8-10.8) L Red Blood Count 4.14 M/UL (4.70-6.10) L Hemoglobin 11.2 G/DL (14.2-18.0) L Hematocrit 36.1 % (42.0-52.0) L Mean Corpuscular Volume 87 FL (80-99) Mean Corpuscular Hemoglobin 27.0 PG (27.0-31.0) Mean Corpuscular Hemoglobin Concent 31.0 G/DL (32.0-36.0) L Red Cell Distribution Width 21.6 % (11.6-14.8) H Platelet Count 228 K/UL (150-450) Mean Platelet Volume 6.2 FL (6.5-10.1) L Neutrophils (%) (Auto) % (45.0-75.0) Lymphocytes (%) (Auto) % (20.0-45.0) Monocytes (%) (Auto) % (1.0-10.0) Eosinophils (%) (Auto) % (0.0-3.0) Basophils (%) (Auto) % (0.0-2.0) Differential Total Cells Counted 100 Neutrophils % (Manual) 57 % (45-75) Lymphocytes % (Manual) 31 % (20-45) Monocytes % (Manual) 11 % (1-10) H Eosinophils % (Manual) 1 % (0-3) Basophils % (Manual) 0 % (0-2) Band Neutrophils 0 % (0-8) Platelet Estimate Adequate Platelet Morphology Normal Hypochromasia 1+ Anisocytosis 2+ Sodium Level 136 MMOL/L (136-145) Potassium Level 3.7 MMOL/L (3.5-5.1) Chloride Level 97 MMOL/L (98-107) L Carbon Dioxide Level 35 MMOL/L (21-32) H Anion Gap 4 mmol/L (5-15) L Blood Urea Nitrogen 27 mg/dL (7-18) H Creatinine 1.3 MG/DL (0.55-1.30) Estimat Glomerular Filtration Rate > 60 mL/min (>60) Glucose Level 109 MG/DL (74-106) H Calcium Level 8.3 MG/DL (8.5-10.1) L Total Bilirubin 0.9 MG/DL (0.2-1.0) Aspartate Amino Transf (AST/SGOT) 28 U/L (15-37) Alanine Aminotransferase (ALT/SGPT) 51 U/L (12-78) Alkaline Phosphatase 102 U/L (46-116) Total Protein 7.0 G/DL (6.4-8.2) Albumin 2.8 G/DL (3.4-5.0) L Globulin 4.2 g/dL Albumin/Globulin Ratio 0.7 (1.0-2.7) L Current Medications Medications (Trade) Dose Ordered Sig/Allyn Route PRN Reason Start Time Stop Time Status Last Admin Dose Admin Acetaminophen/ Hydrocodone Bitart ([place] 5/325) 1 tab Q6H PRN ORAL PAIN 4-10 09/09/17 08:15 09/16/17 08:14 09/12/17 02:34 Albuterol Sulfate (Proventil MDI) 1 puff Q6H PRN INH Shortness of Breath 09/09/17 09:30 10/09/17 09:29 Carvedilol (Coreg) 6.25 mg EVERY 12 HOURS ORAL 09/09/17 09:00 10/09/17 08:59 09/11/17 20:07 Furosemide (Lasix) 40 mg EVERY 12 HOURS IV 09/10/17 21:00 10/10/17 20:59 09/12/17 08:45 Gabapentin (Neurontin) 100 mg Q8HR ORAL 09/09/17 14:00 10/09/17 13:59 09/12/17 05:44 Levofloxacin (Levaquin) 250 mg Q24H ORAL 09/11/17 14:00 09/18/17 13:59 09/11/17 15:02 Levothyroxine Sodium (Synthroid) 88 mcg ACBREAKFAST ORAL 09/09/17 09:00 10/09/17 08:59 09/12/17 05:45 Lisinopril (Zestril) 10 mg DAILY ORAL 09/09/17 09:00 10/09/17 08:59 09/11/17 10:47 Multivitamins (Multivitamins) 2 tab DAILY ORAL 09/09/17 09:00 10/09/17 08:59 09/12/17 08:45 Pantoprazole (Protonix) 40 mg DAILY ORAL 09/09/17 09:00 10/09/17 08:59 09/12/17 08:45 Rivaroxaban (Xarelto) 20 mg DAILY ORAL 09/09/17 09:00 10/09/17 08:59 09/12/17 08:45 Spironolactone (Aldactone) 50 mg DAILY ORAL 09/09/17 09:00 10/09/17 08:59 09/12/17 08:45 DAVID WOOTEN 30, 2018 12:27
--- NOTE | 2017-09-12 15:18 | Diagnostic Imaging Report ---
Indication: Reason For Exam: COUGH Technique: XRAY Chest 1v Comparison: 09/09/2018 Findings: Significant improvement of aeration resolution of the previously seen hazy right-sided opacities and interval resolution of the right-sided pleural effusion. There is no pneumothorax. Left lung is clear. Heart size and mediastinal contours are stable. Pacemaker again noted. No acute osseous abnormality. IMPRESSION: Significant improved aeration with resolution of the previously seen right-sided hazy opacities and right-sided pleural effusion.
[2017-09-12 16:00] VITALS: BP 109/76
--- NOTE | 2017-09-12 16:09 | Cardiac Electrophysiology PN ---
Assessment/Plan Assessment/Plan 1. Severe cardiomyopathy with ejection fraction of around 20% I will continue Coreg 6.25 mg b.i.d., Lasix 40 mg iv b.i.d., lisinopril 10 mg daily, and Aldactone 50 mg daily. 2. Paroxysmal atrial fibrillation, status post two prior ablations on Xarelto 20 mg daily and Coreg 6.25 mg b.i.d. 3. Status post [employer] ICD upgraded to biventricular defibrillator. [employer] defibrillator generator change with battery longevity about three years. The patient however has dysfunctional right ventricular lead and needs to be changed as out patient 4. Hepatitis C and ascites. 5. Abdominal pain. Further evaluation by Dr. Ryan. 6. Right-sided heart failure on Lasix. 7. Renal failure improved on iv lasix DW RN Subjective Subjective Feeling better with diuresis. SOB is better. Objective Last 24 Hour Vital Signs Date Time Temp Pulse Resp B/P (MAP) Pulse Ox O2 Delivery O2 Flow Rate FiO2 09/12/17 13:48 97.8 09/12/17 12:49 97.8 09/12/17 09:00 97.8 76 18 100/75 99 Room Air 97.8 09/12/17 08:46 100/75 09/12/17 08:46 76 100/75 09/12/17 04:00 97.7 77 20 104/75 98 97.7 09/11/17 20:45 81 16 Room Air 21 09/11/17 20:07 77 110/71 09/11/17 20:00 98.0 76 19 105/69 99 Room Air 98.0 Intake and Output 09/11/17 09/12/17 19:00 07:00 Intake Total 750 ml 340 ml Output Total 500 ml 1320 ml Balance 250 ml -980 ml Intake Oral 750 ml 340 ml Output Urine Total 500 ml 1320 ml # Voids 5 2 Laboratory Tests Test 09/12/17 06:35 White Blood Count 3.1 K/UL (4.8-10.8) L Red Blood Count 4.14 M/UL (4.70-6.10) L Hemoglobin 11.2 G/DL (14.2-18.0) L Hematocrit 36.1 % (42.0-52.0) L Mean Corpuscular Volume 87 FL (80-99) Mean Corpuscular Hemoglobin 27.0 PG (27.0-31.0) Mean Corpuscular Hemoglobin Concent 31.0 G/DL (32.0-36.0) L Red Cell Distribution Width 21.6 % (11.6-14.8) H Platelet Count 228 K/UL (150-450) Mean Platelet Volume 6.2 FL (6.5-10.1) L Neutrophils (%) (Auto) % (45.0-75.0) Lymphocytes (%) (Auto) % (20.0-45.0) Monocytes (%) (Auto) % (1.0-10.0) Eosinophils (%) (Auto) % (0.0-3.0) Basophils (%) (Auto) % (0.0-2.0) Differential Total Cells Counted 100 Neutrophils % (Manual) 57 % (45-75) Lymphocytes % (Manual) 31 % (20-45) Monocytes % (Manual) 11 % (1-10) H Eosinophils % (Manual) 1 % (0-3) Basophils % (Manual) 0 % (0-2) Band Neutrophils 0 % (0-8) Platelet Estimate Adequate Platelet Morphology Normal Hypochromasia 1+ Anisocytosis 2+ Sodium Level 136 MMOL/L (136-145) Potassium Level 3.7 MMOL/L (3.5-5.1) Chloride Level 97 MMOL/L (98-107) L Carbon Dioxide Level 35 MMOL/L (21-32) H Anion Gap 4 mmol/L (5-15) L Blood Urea Nitrogen 27 mg/dL (7-18) H Creatinine 1.3 MG/DL (0.55-1.30) Estimat Glomerular Filtration Rate > 60 mL/min (>60) Glucose Level 109 MG/DL (74-106) H Calcium Level 8.3 MG/DL (8.5-10.1) L Total Bilirubin 0.9 MG/DL (0.2-1.0) Aspartate Amino Transf (AST/SGOT) 28 U/L (15-37) Alanine Aminotransferase (ALT/SGPT) 51 U/L (12-78) Alkaline Phosphatase 102 U/L (46-116) Total Protein 7.0 G/DL (6.4-8.2) Albumin 2.8 G/DL (3.4-5.0) L Globulin 4.2 g/dL Albumin/Globulin Ratio 0.7 (1.0-2.7) L Objective HEAD AND NECK: Mild JVD. LUNGS: Decreased breath sounds. CARDIOVASCULAR: Irregular S1 and S2 with no gallop. Defibrillator in left subclavian. ABDOMEN: Tender. EXTREMITIES: No edema. Rc Zhang MD Sep 12, 2017 16:09
--- NOTE | 2017-09-12 20:15 | General Progress Note ---
Assessment/Plan Problem List: (1) Cirrhosis ICD Codes: K74.60 - Unspecified cirrhosis of liver SNOMED: 26859163 (2) Hepatitis C ICD Codes: B19.20 - Hepatitis C SNOMED: 03193981 (3) Hypothyroidism ICD Codes: E03.9 - Hypothyroidism SNOMED: 27247096 (4) Lumbar spondylosis ICD Codes: M47.816 - Spondylosis without myelopathy or radiculopathy, lumbar region SNOMED: 180947078 (5) Cardiomyopathy due to hypertension, with heart failure ICD Codes: I11.0 - Cardiomyopathy due to hypertension, with heart failure; I42.9 - Cardiomyopathy, unspecified SNOMED: 96694076 (6) Right-sided heart failure ICD Codes: I50.9 - Right-sided heart failure SNOMED: 236950249 (7) EF < 20% Status: progressing Assessment/Plan abdominal pain is improving had paracentesis in the past moniter for gi bleeding cirrhosis cardiomyopathy chf Subjective ROS Limited/Unobtainable: Yes Allergies: Coded Allergies: HYDROMORPHONE (Verified Allergy, Unknown, 12/28/10) Objective Last 24 Hour Vital Signs Date Time Temp Pulse Resp B/P (MAP) Pulse Ox O2 Delivery O2 Flow Rate FiO2 09/12/17 18:51 98.6 09/12/17 16:00 98.6 78 15 109/76 100 Room Air 98.6 09/12/17 13:48 97.8 09/12/17 12:49 97.8 09/12/17 12:00 98.1 76 18 117/70 98 Room Air 98.1 09/12/17 09:00 97.8 76 18 100/75 99 Room Air 97.8 09/12/17 08:46 100/75 09/12/17 08:46 76 100/75 09/12/17 04:00 97.7 77 20 104/75 98 97.7 09/11/17 20:45 81 16 Room Air 21 Intake and Output 09/11/17 09/12/17 19:00 07:00 Intake Total 750 ml 340 ml Output Total 500 ml 1320 ml Balance 250 ml -980 ml Intake Oral 750 ml 340 ml Output Urine Total 500 ml 1320 ml # Voids 5 2 Laboratory Tests 09/12/17 06:35: White Blood Count 3.1L, Red Blood Count 4.14L, Hemoglobin 11.2L, Hematocrit 36.1L, Mean Corpuscular Volume 87, Mean Corpuscular Hemoglobin 27.0, Mean Corpuscular Hemoglobin Concent 31.0L, Red Cell Distribution Width 21.6H, Platelet Count 228, Mean Platelet Volume 6.2L, Neutrophils (%) (Auto) , Lymphocytes (%) (Auto) , Monocytes (%) (Auto) , Eosinophils (%) (Auto) , Basophils (%) (Auto) , Differential Total Cells Counted 100, Neutrophils % ( Manual) 57, Lymphocytes % (Manual) 31, Monocytes % (Manual) 11H, Eosinophils % ( Manual) 1, Basophils % (Manual) 0, Band Neutrophils 0, Platelet Estimate Adequate, Platelet Morphology Normal, Hypochromasia 1+, Anisocytosis 2+, Sodium Level 136, Potassium Level 3.7, Chloride Level 97L, Carbon Dioxide Level 35H, Anion Gap 4L, Blood Urea Nitrogen 27H, Creatinine 1.3, Estimat Glomerular Filtration Rate > 60, Glucose Level 109H, Calcium Level 8.3L, Total Bilirubin 0.9, Aspartate Amino Transf (AST/SGOT) 28, Alanine Aminotransferase (ALT/SGPT) 51, Alkaline Phosphatase 102, Total Protein 7.0, Albumin 2.8L, Globulin 4.2, Albumin/Globulin Ratio 0.7L Height (Feet): 5 Height (Inches): 9.00 Weight (Pounds): 150 Respiratory/Chest: lungs clear Abdomen: tender Winston Jin MD Sep 12, 2017 20:15
--- NOTE | 2017-09-13 07:29 | General Progress Note ---
Assessment/Plan Problem List: (1) Emphysema lung ICD Codes: J43.9 - Emphysema lung SNOMED: 15296271 (2) EF < 20% (3) Cardiomyopathy due to hypertension, with heart failure ICD Codes: I11.0 - Cardiomyopathy due to hypertension, with heart failure; I42.9 - Cardiomyopathy, unspecified SNOMED: 39003253 (4) Hepatitis C ICD Codes: B19.20 - Hepatitis C SNOMED: 96210717 (5) Colon polyps ICD Codes: K63.5 - Polyp of colon SNOMED: 51841276 (6) Hypothyroidism ICD Codes: E03.9 - Hypothyroidism, unspecified SNOMED: 41025749 (7) Ascites ICD Codes: R18.8 - Ascites SNOMED: 609185220 Assessment/Plan not enough fluid for paracentesis ascites most likely cardiac origin on diuretics colace fu Subjective ROS Limited/Unobtainable: Yes Allergies: Coded Allergies: HYDROMORPHONE (Verified Allergy, Unknown, 12/28/10) Subjective no event Objective Last 24 Hour Vital Signs Date Time Temp Pulse Resp B/P (MAP) Pulse Ox O2 Delivery O2 Flow Rate FiO2 09/12/17 19:05 76 18 Room Air 21 09/12/17 18:51 98.6 09/12/17 16:00 98.6 78 15 109/76 100 Room Air 98.6 09/12/17 13:48 97.8 09/12/17 12:49 97.8 09/12/17 12:00 98.1 76 18 117/70 98 Room Air 98.1 09/12/17 09:00 97.8 76 18 100/75 99 Room Air 97.8 09/12/17 08:46 100/75 09/12/17 08:46 76 100/75 Intake and Output 09/12/17 09/13/17 19:00 07:00 Intake Total 1080 ml 450 ml Output Total 1000 ml Balance 1080 ml -550 ml Intake Oral 1080 ml Tube Feeding 450 ml Output Urine Total 1000 ml # Voids 12 4 Height (Feet): 5 Height (Inches): 9.00 Weight (Pounds): 150 General Appearance: alert EENT: normal ENT inspection Neck: supple Cardiovascular: normal rate Respiratory/Chest: decreased breath sounds Abdomen: normal bowel sounds, non tender, soft Extremities: non-tender PALAK BILLINGSLEY Sep 13, 2017 07:29
[2017-09-13 08:00] VITALS: BP 100/66
[2017-09-13] MEDS: Lisinopril 10mg tab ORAL SCH (09:00)
[2017-09-13] MEDS: Carvedilol 6.25mg Tab ORAL SCH ×2 (09:00→20:46)
[2017-09-13] MEDS: Xarelto 10mg tab ORAL SCH (09:56)
[2017-09-13] MEDS: Spironolactone 50mg tab ORAL SCH (09:57)
[2017-09-13] MEDS: Docusate 100mg cap ORAL SCH ×2 (09:57→17:55)
[2017-09-13 12:00] VITALS: BP 116/81
--- NOTE | 2017-09-13 12:38 | Pulmonology Progress Note ---
Assessment/Plan Problems: (1) Right-sided heart failure (2) Cardiomyopathy due to hypertension, with heart failure (3) EF < 20% (4) Cirrhosis (5) Abdominal pain (6) Ascites (7) UTI (urinary tract infection) (8) Emphysema lung Assessment/Plan ASSESSMENT: The patient is a 62-year-old male with a history of congestive heart failure, ischemic cardiomyopathy, defibrillator, and atrial fibrillation, on anticoagulation presenting with vague diffuse abdominal pain with increased ascites and abnormal LFTs. Small pleural effusion is noted, which is decreased from prior. He has no respiratory symptoms. I suspect it is secondary to heart failure. At this point, it does not need to urgently be drained and I am unsure if drainage would be safe. PROBLEM LIST: 1. Small right-sided pleural effusion, likely secondary to congestive heart failure - IMPROVED 2. Congestive heart failure with ischemic cardiomyopathy, with ADHF 3. Atrial fibrillation status post ablation in the past, on anticoagulation. 4. Abnormal LFTs and ascites - IMPROVED 5. History of hepatitis B, hepatitis C, and cirrhosis. 6. History of hypertension. 7. Hypothyroidism. 8. Acute kidney injury, likely cardiorenal syndrome, improving with diuresis 9. Anemia. TREATMENT PLAN: 1. Optimize pulmonary hygiene/mobilize as tolerated. 2. PRN Proventil HHN 3. Monitor for signs of respiratory distress. 4. Followup Cardiology recommendations, IV lasix per cards 5. Monitor volumes and renal function, 6. Aspiration precautions. 7. DVT prophylaxis with Xarelto. 8. Continue Levaquin per ID 9. Follow up GI recs 10. The patient is Full Code. Subjective Allergies: Coded Allergies: HYDROMORPHONE (Verified Allergy, Unknown, 12/28/10) Subjective AFVSS, stable on RA, no cough, no SOB, no F/C unchanged abd pain, no NVDC, ren CLD Cr and CXR improved with diuresis Objective Last 24 Hour Vital Signs Date Time Temp Pulse Resp B/P (MAP) Pulse Ox O2 Delivery O2 Flow Rate FiO2 09/13/17 12:00 97.8 78 19 116/81 98 Room Air 97.8 09/13/17 09:00 100/66 09/13/17 09:00 80 100/66 09/13/17 08:00 97.9 80 18 100/66 99 Room Air 97.9 3/31/18 07:35 65 18 Room Air 21 09/12/17 19:05 76 18 Room Air 21 09/12/17 18:51 98.6 09/12/17 16:00 98.6 78 15 109/76 100 Room Air 98.6 09/12/17 13:48 97.8 09/12/17 12:49 97.8 Intake and Output 09/12/17 09/13/17 19:00 07:00 Intake Total 1080 ml 450 ml Output Total 1000 ml Balance 1080 ml -550 ml Intake Oral 1080 ml Tube Feeding 450 ml Output Urine Total 1000 ml # Voids 12 4 General Appearance: WD/WN, no acute distress HEENT: normocephalic, atraumatic, anicteric, mucous membranes moist Respiratory/Chest: chest wall non-tender, lungs clear, normal breath sounds, no respiratory distress, no accessory muscle use Cardiovascular: normal peripheral pulses, normal rate, regular rhythm Abdomen: normal bowel sounds, soft, non tender, no organomegaly, non distended Extremities: no cyanosis, no clubbing, no edema Current Medications Medications (Trade) Dose Ordered Sig/Allyn Route PRN Reason Start Time Stop Time Status Last Admin Dose Admin Acetaminophen/ Hydrocodone Bitart ([place] 5/325) 1 tab Q6H PRN ORAL PAIN 4-10 09/09/17 08:15 09/16/17 08:14 09/12/17 18:51 Albuterol Sulfate (Proventil MDI) 1 puff Q6H PRN INH Shortness of Breath 09/09/17 09:30 10/09/17 09:29 Carvedilol (Coreg) 6.25 mg EVERY 12 HOURS ORAL 09/09/17 09:00 10/09/17 08:59 09/11/17 20:07 Docusate Sodium (Colace) 100 mg TWICE A DAY ORAL 09/13/17 09:00 10/13/17 08:59 09/13/17 09:57 Furosemide (Lasix) 40 mg EVERY 12 HOURS IV 09/10/17 21:00 10/10/17 20:59 09/13/17 09:56 Gabapentin (Neurontin) 100 mg Q8HR ORAL 09/09/17 14:00 10/09/17 13:59 09/13/17 06:11 Levofloxacin (Levaquin) 250 mg Q24H ORAL 09/11/17 14:00 09/18/17 13:59 09/12/17 14:05 Levothyroxine Sodium (Synthroid) 88 mcg ACBREAKFAST ORAL 09/13/17 06:30 10/13/17 06:29 09/13/17 06:11 Lisinopril (Zestril) 10 mg DAILY ORAL 09/09/17 09:00 10/09/17 08:59 09/11/17 10:47 Multivitamins (Multivitamins) 2 tab DAILY ORAL 09/09/17 09:00 10/09/17 08:59 09/13/17 09:57 Pantoprazole (Protonix) 40 mg DAILY ORAL 09/09/17 09:00 10/09/17 08:59 09/13/17 09:56 Rivaroxaban (Xarelto) 20 mg DAILY ORAL 09/09/17 09:00 10/09/17 08:59 09/13/17 09:56 Spironolactone (Aldactone) 50 mg DAILY ORAL 09/09/17 09:00 10/09/17 08:59 09/13/17 09:57 ALBA HERNANDEZ M.D. Sep 13, 2017 12:38
--- NOTE | 2017-09-13 13:57 | Cardiac Electrophysiology PN ---
Assessment/Plan Assessment/Plan 1. Severe cardiomyopathy with ejection fraction of around 20% Continue Coreg 6.25 mg b.i.d., Lasix 40 mg iv b.i.d., lisinopril 10 mg daily, and Aldactone 50 mg daily. 2. Paroxysmal atrial fibrillation, status post two prior ablations on Xarelto 20 mg daily and Coreg 6.25 mg b.i.d. 3. Status post [employer] [place] ICD defibrillator .Has dysfunctional right ventricular lead and needs to be changed as out patient 4. Hepatitis C and ascites. 5. Abdominal pain. Further evaluation by Dr. Ryan and Yamileth. Asking for Oxycodone 6. Right-sided heart failure on Lasix. 7. Renal failure improved on iv lasix DW RN Subjective Subjective Diuresing well. SOB is better.Has abdominal pain Objective Last 24 Hour Vital Signs Date Time Temp Pulse Resp B/P (MAP) Pulse Ox O2 Delivery O2 Flow Rate FiO2 09/13/17 12:00 97.8 78 19 116/81 98 Room Air 97.8 09/13/17 09:00 100/66 09/13/17 09:00 80 100/66 09/13/17 08:00 97.9 80 18 100/66 99 Room Air 97.9 09/13/17 07:35 65 18 Room Air 21 09/12/17 19:05 76 18 Room Air 21 09/12/17 18:51 98.6 09/12/17 16:00 98.6 78 15 109/76 100 Room Air 98.6 Intake and Output 09/12/17 09/13/17 19:00 07:00 Intake Total 1080 ml 450 ml Output Total 1000 ml Balance 1080 ml -550 ml Intake Oral 1080 ml Tube Feeding 450 ml Output Urine Total 1000 ml # Voids 12 4 Objective HEAD AND NECK: Mild JVD. LUNGS: Decreased breath sounds. CARDIOVASCULAR: Irregular S1 and S2 with no gallop. Defibrillator in left subclavian. ABDOMEN: Tender.No ascites EXTREMITIES: No edema. Rc Zhang MD Sep 13, 2017 13:57
[2017-09-13 20:00] VITALS: BP 112/83
--- NOTE | 2017-09-13 21:07 | General Progress Note ---
Assessment/Plan Problem List: (1) Cirrhosis ICD Codes: K74.60 - Unspecified cirrhosis of liver SNOMED: 05723400 (2) Hepatitis C ICD Codes: B19.20 - Hepatitis C SNOMED: 65325866 (3) Hypothyroidism ICD Codes: E03.9 - Hypothyroidism SNOMED: 20449509 (4) Lumbar spondylosis ICD Codes: M47.816 - Spondylosis without myelopathy or radiculopathy, lumbar region SNOMED: 378364603 (5) Cardiomyopathy due to hypertension, with heart failure ICD Codes: I11.0 - Cardiomyopathy due to hypertension, with heart failure; I42.9 - Cardiomyopathy, unspecified SNOMED: 74219362 (6) Right-sided heart failure ICD Codes: I50.9 - Right-sided heart failure SNOMED: 996459553 (7) EF < 20% Assessment/Plan chronic pain HCV CHECK LABS PERIODICALLY moniter for gi bleeding cirrhosis cardiomyopathy chf Subjective Allergies: Coded Allergies: HYDROMORPHONE (Verified Allergy, Unknown, 12/28/10) Subjective chronic pain Objective Last 24 Hour Vital Signs Date Time Temp Pulse Resp B/P (MAP) Pulse Ox O2 Delivery O2 Flow Rate FiO2 09/13/17 20:46 79 116/85 09/13/17 12:00 97.8 78 19 116/81 98 Room Air 97.8 09/13/17 09:00 100/66 09/13/17 09:00 80 100/66 09/13/17 08:00 97.9 80 18 100/66 99 Room Air 97.9 09/13/17 07:35 65 18 Room Air 21 Intake and Output 09/12/17 09/13/17 19:00 07:00 Intake Total 1080 ml 450 ml Output Total 1000 ml Balance 1080 ml -550 ml Intake Oral 1080 ml Tube Feeding 450 ml Output Urine Total 1000 ml # Voids 12 4 Height (Feet): 5 Height (Inches): 9.00 Weight (Pounds): 150 Cardiovascular: normal rate Respiratory/Chest: lungs clear Abdomen: tender Winston Jin MD Sep 13, 2017 21:07
[2017-09-14] VITALS: BP 104/72
[2017-09-14] MEDS: HYDROcodone/Acetamin 10/325 tab ORAL PRN ×5 (00:27→21:57)
--- NOTE | 2017-09-14 07:46 | General Progress Note ---
Assessment/Plan Problem List: (1) Emphysema lung ICD Codes: J43.9 - Emphysema lung SNOMED: 49740462 (2) EF < 20% (3) Cardiomyopathy due to hypertension, with heart failure ICD Codes: I11.0 - Cardiomyopathy due to hypertension, with heart failure; I42.9 - Cardiomyopathy, unspecified SNOMED: 44293391 (4) Hepatitis C ICD Codes: B19.20 - Hepatitis C SNOMED: 36350369 (5) Colon polyps ICD Codes: K63.5 - Polyp of colon SNOMED: 95653270 (6) Hypothyroidism ICD Codes: E03.9 - Hypothyroidism, unspecified SNOMED: 89933688 (7) Ascites ICD Codes: R18.8 - Ascites SNOMED: 353000595 Assessment/Plan not enough fluid for paracentesis ascites most likely cardiac origin on diuretics colace fu labs fu cardiology pending pacemaker adjustment for tomorrow Subjective ROS Limited/Unobtainable: Yes Allergies: Coded Allergies: HYDROMORPHONE (Verified Allergy, Unknown, 12/28/10) Subjective no event Objective Last 24 Hour Vital Signs Date Time Temp Pulse Resp B/P (MAP) Pulse Ox O2 Delivery O2 Flow Rate FiO2 09/14/17 07:30 76 18 Room Air 21 09/14/17 00:00 97.9 77 20 104/72 96 97.9 09/13/17 21:36 79 19 Room Air 21 09/13/17 20:46 79 116/85 09/13/17 20:00 97.2 77 20 112/83 98 97.2 09/13/17 12:00 97.8 78 19 116/81 98 Room Air 97.8 09/13/17 09:00 100/66 09/13/17 09:00 80 100/66 09/13/17 08:00 97.9 80 18 100/66 99 Room Air 97.9 Intake and Output 09/13/17 09/14/17 19:00 07:00 Intake Total 1500 ml 240 ml Output Total 1580 ml Balance 1500 ml -1340 ml Intake Oral 240 ml Other 1500 ml Output Urine Total 1580 ml # Voids 4 4 Height (Feet): 5 Height (Inches): 9.00 Weight (Pounds): 150 General Appearance: alert EENT: normal ENT inspection Neck: supple Cardiovascular: normal rate Respiratory/Chest: lungs clear Abdomen: normal bowel sounds, non tender, soft Extremities: non-tender PALAK BILLINGSLEY Sep 14, 2017 07:46
[2017-09-14 08:00] VITALS: BP 119/75
[2017-09-14] MEDS: Xarelto 10mg tab ORAL SCH (08:39)
[2017-09-14] MEDS: Spironolactone 50mg tab ORAL SCH (08:39)
[2017-09-14] MEDS: Carvedilol 6.25mg Tab ORAL SCH ×2 (08:40→21:57)
[2017-09-14] MEDS: Docusate 100mg cap ORAL SCH ×2 (08:40→17:32)
[2017-09-14] MEDS: Lisinopril 10mg tab ORAL SCH (08:40)
--- NOTE | 2017-09-14 09:42 | Infectious Diseases Prog Note ---
Assessment/Plan Assessment/Plan A; UTI with E.coli & enterococcus treated Ascites insufficient for paracentesis COPD Systolic CHF Fatty liver/? cirrhosis Acute renal failure improving Treated hepatitis C P: Discontinue Levaquin Subjective ROS Limited/Unobtainable: No Constitutional: Reports: no symptoms Respiratory: Reports: no symptoms Cardiovascular: Reports: no symptoms Gastrointestinal/Abdominal: Reports: no symptoms Genitourinary: Reports: no symptoms Allergies: Coded Allergies: HYDROMORPHONE (Verified Allergy, Unknown, 12/28/10) Objective Vital Signs Last 24 Hour Vital Signs Date Time Temp Pulse Resp B/P (MAP) Pulse Ox O2 Delivery O2 Flow Rate FiO2 09/14/17 08:40 112/75 09/14/17 08:40 76 112/75 09/14/17 08:00 97.7 76 22 119/75 97 Room Air 97.7 09/14/17 07:30 76 18 Room Air 21 09/14/17 00:00 97.9 77 20 104/72 96 97.9 09/13/17 21:36 79 19 Room Air 21 09/13/17 20:46 79 116/85 09/13/17 20:00 97.2 77 20 112/83 98 97.2 09/13/17 12:00 97.8 78 19 116/81 98 Room Air 97.8 Height (Feet): 5 Height (Inches): 9.00 Weight (Pounds): 150 General Appearance: no acute distress HEENT: mucous membranes moist Respiratory/Chest: lungs clear Cardiovascular: normal rate Abdomen: soft, non tender Extremities: no edema Neurologic/Psychiatric: alert, oriented x 3, responsive Current Medications Medications (Trade) Dose Ordered Sig/Allyn Route PRN Reason Start Time Stop Time Status Last Admin Dose Admin Acetaminophen/ Hydrocodone Bitart ([place] 10/325) 1 tab Q4H PRN ORAL For Pain 09/13/17 23:45 09/20/17 23:44 09/14/17 08:43 Albuterol Sulfate (Proventil MDI) 1 puff Q6H PRN INH Shortness of Breath 09/09/17 09:30 10/09/17 09:29 Carvedilol (Coreg) 6.25 mg EVERY 12 HOURS ORAL 09/09/17 09:00 10/09/17 08:59 09/14/17 08:40 Docusate Sodium (Colace) 100 mg TWICE A DAY ORAL 09/13/17 09:00 10/13/17 08:59 09/14/17 08:40 Furosemide (Lasix) 40 mg EVERY 12 HOURS IV 09/10/17 21:00 10/10/17 20:59 09/14/17 08:43 Gabapentin (Neurontin) 100 mg Q8HR ORAL 09/09/17 14:00 10/09/17 13:59 09/14/17 05:42 Levofloxacin (Levaquin) 250 mg Q24H ORAL 09/11/17 14:00 09/14/17 23:59 09/13/17 14:16 Levothyroxine Sodium (Synthroid) 88 mcg ACBREAKFAST ORAL 09/13/17 06:30 10/13/17 06:29 09/14/17 05:42 Lisinopril (Zestril) 10 mg DAILY ORAL 09/09/17 09:00 10/09/17 08:59 09/14/17 08:40 Multivitamins (Multivitamins) 2 tab DAILY ORAL 09/09/17 09:00 10/09/17 08:59 09/14/17 08:39 Pantoprazole (Protonix) 40 mg DAILY ORAL 09/09/17 09:00 10/09/17 08:59 09/14/17 08:39 Rivaroxaban (Xarelto) 20 mg DAILY ORAL 09/09/17 09:00 10/09/17 08:59 09/14/17 08:39 Spironolactone (Aldactone) 50 mg DAILY ORAL 09/09/17 09:00 10/09/17 08:59 09/14/17 08:39 DAVID WOOTEN Sep 14, 2017 09:42
--- NOTE | 2017-09-14 10:01 | Pulmonology Progress Note ---
Assessment/Plan Problems: (1) Right-sided heart failure (2) Cardiomyopathy due to hypertension, with heart failure (3) EF < 20% (4) Cirrhosis (5) Abdominal pain (6) Ascites (7) UTI (urinary tract infection) (8) Emphysema lung Assessment/Plan ASSESSMENT: The patient is a 62-year-old male with a history of congestive heart failure, ischemic cardiomyopathy, defibrillator, and atrial fibrillation, on anticoagulation presenting with vague diffuse abdominal pain with increased ascites and abnormal LFTs. Small pleural effusion is noted, which is decreased from prior. He has no respiratory symptoms. I suspect it is secondary to heart failure. At this point, it does not need to urgently be drained and I am unsure if drainage would be safe. PROBLEM LIST: 1. Small right-sided pleural effusion, likely secondary to congestive heart failure - IMPROVED 2. Congestive heart failure with ischemic cardiomyopathy, with ADHF 3. Atrial fibrillation status post ablation in the past, on anticoagulation. 4. Abnormal LFTs and ascites - IMPROVED 5. History of hepatitis B, hepatitis C, and cirrhosis. 6. History of hypertension. 7. Hypothyroidism. 8. Acute kidney injury, likely cardiorenal syndrome, improving with diuresis 9. Anemia. TREATMENT PLAN: 1. Optimize pulmonary hygiene/mobilize as tolerated. 2. PRN Proventil HHN 3. Monitor for signs of respiratory distress. 4. Followup Cardiology recommendations, switch lasix back to home dose of 40 PO BID + Aldactone 5. Monitor volumes and renal function, 6. Aspiration precautions. 7. DVT prophylaxis with Xarelto. 8. Observe off Abx per ID 9. Follow up GI recs 10. The patient is Full Code. Subjective Allergies: Coded Allergies: HYDROMORPHONE (Verified Allergy, Unknown, 12/28/10) Subjective AFVSS, stable on RA, no cough, no SOB, no F/C less abd pain, no NVDC, ren CLD AML pending, HCO3 35 yesterday Objective Last 24 Hour Vital Signs Date Time Temp Pulse Resp B/P (MAP) Pulse Ox O2 Delivery O2 Flow Rate FiO2 09/14/17 08:40 112/75 09/14/17 08:40 76 112/75 09/14/17 08:00 97.7 76 22 119/75 97 Room Air 97.7 09/14/17 07:30 76 18 Room Air 21 09/14/17 00:00 97.9 77 20 104/72 96 97.9 09/13/17 21:36 79 19 Room Air 21 09/13/17 20:46 79 116/85 09/13/17 20:00 97.2 77 20 112/83 98 97.2 09/13/17 12:00 97.8 78 19 116/81 98 Room Air 97.8 Intake and Output 09/13/17 09/14/17 19:00 07:00 Intake Total 1500 ml 240 ml Output Total 1580 ml Balance 1500 ml -1340 ml Intake Oral 240 ml Other 1500 ml Output Urine Total 1580 ml # Voids 4 4 General Appearance: WD/WN, no acute distress HEENT: normocephalic, atraumatic, anicteric, mucous membranes moist Respiratory/Chest: chest wall non-tender, lungs clear, normal breath sounds, no respiratory distress Cardiovascular: normal peripheral pulses, normal rate, regular rhythm Abdomen: normal bowel sounds, soft, non tender, no organomegaly, non distended , no mass Extremities: no cyanosis, no clubbing, no edema Current Medications Medications (Trade) Dose Ordered Sig/Allyn Route PRN Reason Start Time Stop Time Status Last Admin Dose Admin Acetaminophen/ Hydrocodone Bitart ([place] 10/325) 1 tab Q4H PRN ORAL For Pain 09/13/17 23:45 09/20/17 23:44 09/14/17 08:43 Albuterol Sulfate (Proventil MDI) 1 puff Q6H PRN INH Shortness of Breath 09/09/17 09:30 10/09/17 09:29 Carvedilol (Coreg) 6.25 mg EVERY 12 HOURS ORAL 09/09/17 09:00 10/09/17 08:59 09/14/17 08:40 Docusate Sodium (Colace) 100 mg TWICE A DAY ORAL 09/13/17 09:00 10/13/17 08:59 09/14/17 08:40 Furosemide (Lasix) 40 mg EVERY 12 HOURS IV 09/10/17 21:00 10/10/17 20:59 09/14/17 08:43 Gabapentin (Neurontin) 100 mg Q8HR ORAL 09/09/17 14:00 10/09/17 13:59 09/14/17 05:42 Levothyroxine Sodium (Synthroid) 88 mcg ACBREAKFAST ORAL 09/13/17 06:30 10/13/17 06:29 09/14/17 05:42 Lisinopril (Zestril) 10 mg DAILY ORAL 09/09/17 09:00 10/09/17 08:59 09/14/17 08:40 Multivitamins (Multivitamins) 2 tab DAILY ORAL 09/09/17 09:00 10/09/17 08:59 09/14/17 08:39 Pantoprazole (Protonix) 40 mg DAILY ORAL 09/09/17 09:00 10/09/17 08:59 09/14/17 08:39 Rivaroxaban (Xarelto) 20 mg DAILY ORAL 09/09/17 09:00 10/09/17 08:59 09/14/17 08:39 Spironolactone (Aldactone) 50 mg DAILY ORAL 09/09/17 09:00 10/09/17 08:59 09/14/17 08:39 ALBA HERNANDEZ M.D. Sep 14, 2017 10:01
[2017-09-14 12:03] VITALS: BP 103/64
[2017-09-14 16:04] VITALS: BP 96/63
--- NOTE | 2017-09-14 18:12 | General Progress Note ---
Assessment/Plan Problem List: (1) Cirrhosis ICD Codes: K74.60 - Unspecified cirrhosis of liver SNOMED: 25845769 (2) Hepatitis C ICD Codes: B19.20 - Hepatitis C SNOMED: 78006273 (3) Hypothyroidism ICD Codes: E03.9 - Hypothyroidism SNOMED: 08147220 (4) Lumbar spondylosis ICD Codes: M47.816 - Spondylosis without myelopathy or radiculopathy, lumbar region SNOMED: 959400625 (5) Cardiomyopathy due to hypertension, with heart failure ICD Codes: I11.0 - Cardiomyopathy due to hypertension, with heart failure; I42.9 - Cardiomyopathy, unspecified SNOMED: 31929994 (6) Right-sided heart failure ICD Codes: I50.9 - Right-sided heart failure SNOMED: 032733995 (7) EF < 20% Assessment/Plan abdominal pain is still present afebrile low ef covering for dr patterson cirrhosis cardiomyopathy chf Subjective Gastrointestinal/Abdominal: Reports: abdominal pain Allergies: Coded Allergies: HYDROMORPHONE (Verified Allergy, Unknown, 12/28/10) Subjective chronic pain Objective Last 24 Hour Vital Signs Date Time Temp Pulse Resp B/P (MAP) Pulse Ox O2 Delivery O2 Flow Rate FiO2 09/14/17 16:04 97.1 77 21 96/63 99 Room Air 97.1 09/14/17 12:03 97.3 77 22 103/64 99 Room Air 97.3 09/14/17 08:40 112/75 09/14/17 08:40 76 112/75 09/14/17 08:00 97.7 76 22 119/75 97 Room Air 97.7 09/14/17 07:30 76 18 Room Air 21 09/14/17 00:00 97.9 77 20 104/72 96 97.9 09/13/17 21:36 79 19 Room Air 21 09/13/17 20:46 79 116/85 09/13/17 20:00 97.2 77 20 112/83 98 97.2 Intake and Output 09/13/17 09/14/17 19:00 07:00 Intake Total 1500 ml 240 ml Output Total 1580 ml Balance 1500 ml -1340 ml Intake Oral 240 ml Other 1500 ml Output Urine Total 1580 ml # Voids 4 4 Height (Feet): 5 Height (Inches): 9.00 Weight (Pounds): 150 Winston Jin MD Sep 14, 2017 18:12
[2017-09-14 20:00] VITALS: BP 105/64
[2017-09-14] MEDS: Furosemide 40mg tab ORAL SCH (21:58)
[2017-09-15] VITALS: BP 103/67
[2017-09-15 03:53] VITALS: BP 100/65
[2017-09-15 06:29] LABS: BASOPHILS % (AUTO) 4.3 % (0.0-2.0); EOSINOPHILS % (AUTO) 3.5 % (0.0-3.0); HEMATOCRIT 43.3 % (42.0-52.0); HEMOGLOBIN 13.1 G/DL (14.2-18.0); LYMPHOCYTES % (AUTO) 32.7 % (20.0-45.0); MEAN CORPUSCULAR VOLUME 87 FL (80-99); MONOCYTES % (AUTO) 15.1 % (1.0-10.0); NEUTROPHILS % (AUTO) 44.5 % (45.0-75.0); PLATELET COUNT 239 K/UL (150-450); RED BLOOD COUNT 4.98 M/UL (4.70-6.10); RED CELL DISTRIBUTION WIDTH 20.9 % (11.6-14.8); WHITE BLOOD COUNT 4.1 K/UL (4.8-10.8)
[2017-09-15 07:48] LABS: ALANINE AMINOTRANSFERASE 36 U/L (12-78); ALBUMIN 3.1 G/DL (3.4-5.0); ALBUMIN/GLOBULIN RATIO 0.7 (1.0-2.7); ALKALINE PHOSPHATASE 99 U/L (46-116); ANION GAP 8 mmol/L (5-15); ASPARTATE AMINO TRANSFERASE 19 U/L (15-37); BILIRUBIN,TOTAL 0.6 MG/DL (0.2-1.0); BLOOD UREA NITROGEN 35 mg/dL (7-18); CALCIUM 8.8 MG/DL (8.5-10.1); CARBON DIOXIDE 30 MMOL/L (21-32); CHLORIDE 97 MMOL/L (98-107); CREATININE 1.4 MG/DL (0.55-1.30); POTASSIUM 4.1 MMOL/L (3.5-5.1); SODIUM 135 MMOL/L (136-145)
[2017-09-15 08:00] VITALS: BP 114/61
--- NOTE | 2017-09-15 09:18 | Endoscopy Procedure Note ---
Endoscopy Procedure Note General Indication for Procedure: gerd Procedures Performed: EGD Operative Findings/Diagnosis: esophagitis Specimen: yes Pt Tolerated Procedure Well: Yes Estimated Blood Loss: none Anesthesia Anesthesiologist: pierre Anesthesia: MAC Inserted Devices Implant(s) used?: No GI Core Measures 50 yrs or older w/o bx or poly: Not Applicable 10yrs. F/U not recommended: Not Applicable PALAK BILLINGSLEY Sep 15, 2017 09:18
--- NOTE | 2017-09-15 09:22 | General Progress Note ---
Assessment/Plan Problem List: (1) Emphysema lung ICD Codes: J43.9 - Emphysema lung SNOMED: 07126847 (2) EF < 20% (3) Cardiomyopathy due to hypertension, with heart failure ICD Codes: I11.0 - Cardiomyopathy due to hypertension, with heart failure; I42.9 - Cardiomyopathy, unspecified SNOMED: 94800443 (4) Hepatitis C ICD Codes: B19.20 - Hepatitis C SNOMED: 60050833 (5) Colon polyps ICD Codes: K63.5 - Polyp of colon SNOMED: 50372018 (6) Hypothyroidism ICD Codes: E03.9 - Hypothyroidism, unspecified SNOMED: 85523196 (7) Ascites ICD Codes: R18.8 - Ascites SNOMED: 614166164 Assessment/Plan not enough fluid for paracentesis ascites most likely cardiac origin on diuretics colace fu labs fu cardiology ok to dc gi stand point Subjective ROS Limited/Unobtainable: Yes Allergies: Coded Allergies: HYDROMORPHONE (Verified Allergy, Unknown, 12/28/10) Subjective no event Objective Last 24 Hour Vital Signs Date Time Temp Pulse Resp B/P (MAP) Pulse Ox O2 Delivery O2 Flow Rate FiO2 09/15/17 08:50 81 18 Room Air 09/15/17 03:53 98.1 78 18 100/65 98.1 09/15/17 00:00 97.4 78 21 103/67 97 97.4 09/14/17 21:57 77 105/64 09/14/17 20:00 98.1 77 21 105/64 99 98.1 09/14/17 19:54 77 18 Room Air 21 09/14/17 16:04 97.1 77 21 96/63 99 Room Air 97.1 09/14/17 12:03 97.3 77 22 103/64 99 Room Air 97.3 Intake and Output 09/14/17 09/15/17 19:00 07:00 Intake Total 720 ml Output Total 1400 ml Balance 720 ml -1400 ml Intake Oral 720 ml Output Urine Total 1400 ml # Bowel Movements 1 Laboratory Tests 09/15/17 05:30: White Blood Count 4.1L, Red Blood Count 4.98, Hemoglobin 13.1L, Hematocrit 43.3 , Mean Corpuscular Volume 87, Mean Corpuscular Hemoglobin 26.3L, Mean Corpuscular Hemoglobin Concent 30.2L, Red Cell Distribution Width 20.9H, Platelet Count 239, Mean Platelet Volume 6.0L, Neutrophils (%) (Auto) 44.5L, Lymphocytes (%) (Auto) 32.7, Monocytes (%) (Auto) 15.1H, Eosinophils (%) (Auto) 3.5H, Basophils (%) (Auto) 4.3H, Sodium Level 135L, Potassium Level 4.1, Chloride Level 97L, Carbon Dioxide Level 30, Anion Gap 8, Blood Urea Nitrogen 35H, Creatinine 1.4H, Estimat Glomerular Filtration Rate > 60, Glucose Level 100 , Calcium Level 8.8, Total Bilirubin 0.6, Aspartate Amino Transf (AST/SGOT) 19, Alanine Aminotransferase (ALT/SGPT) 36, Alkaline Phosphatase 99, Total Protein 7.8, Albumin 3.1L, Globulin 4.7, Albumin/Globulin Ratio 0.7L Height (Feet): 5 Height (Inches): 9.00 Weight (Pounds): 150 General Appearance: alert EENT: normal ENT inspection Neck: supple Cardiovascular: normal rate Respiratory/Chest: decreased breath sounds Abdomen: normal bowel sounds, non tender, soft Extremities: non-tender PALAK BILLINGSLEY Sep 15, 2017 09:22
[2017-09-15] MEDS: Spironolactone 50mg tab ORAL SCH (09:55)
[2017-09-15] MEDS: Xarelto 10mg tab ORAL SCH (09:55)
[2017-09-15] MEDS: Docusate 100mg cap ORAL SCH (09:55)
[2017-09-15] MEDS: Furosemide 40mg tab ORAL SCH (09:56)
[2017-09-15] MEDS: Carvedilol 6.25mg Tab ORAL SCH (09:56)
[2017-09-15 09:57] VITALS: BP 114/61
[2017-09-15] MEDS: Lisinopril 10mg tab ORAL SCH (09:57)
[2017-09-15] MEDS: HYDROcodone/Acetamin 10/325 tab ORAL PRN (10:02)
--- NOTE | 2017-09-15 10:22 | General Progress Note ---
Assessment/Plan Problem List: (1) Cirrhosis ICD Codes: K74.60 - Cirrhosis SNOMED: 33854927 (2) CHF (congestive heart failure) ICD Codes: I50.9 - Heart failure, unspecified SNOMED: 27558974 (3) Abdominal pain ICD Codes: R10.9 - Abdominal pain SNOMED: 56656024 (4) Hepatitis C ICD Codes: B19.20 - Hepatitis C SNOMED: 18917635 (5) Cardiomyopathy due to hypertension, with heart failure ICD Codes: I11.0 - Cardiomyopathy due to hypertension, with heart failure; I42.9 - Cardiomyopathy, unspecified SNOMED: 04884262 (6) Pain ICD Codes: R52 - Pain SNOMED: 74988674 Status: stable, progressing, tolerating diet Assessment/Plan cleared by consults kellie nayak Subjective Constitutional: Reports: weakness Allergies: Coded Allergies: HYDROMORPHONE (Verified Allergy, Unknown, 12/28/10) All Systems: reviewed and negative except above Subjective sl abd pain Objective Last 24 Hour Vital Signs Date Time Temp Pulse Resp B/P (MAP) Pulse Ox O2 Delivery O2 Flow Rate FiO2 09/15/17 10:02 98.1 09/15/17 09:57 114/61 09/15/17 09:56 77 114/61 09/15/17 08:50 81 18 Room Air 09/15/17 03:53 98.1 78 18 100/65 98.1 09/15/17 00:00 97.4 78 21 103/67 97 97.4 09/14/17 21:57 77 105/64 09/14/17 20:00 98.1 77 21 105/64 99 98.1 09/14/17 19:54 77 18 Room Air 21 09/14/17 16:04 97.1 77 21 96/63 99 Room Air 97.1 09/14/17 12:03 97.3 77 22 103/64 99 Room Air 97.3 Intake and Output 09/14/17 09/15/17 19:00 07:00 Intake Total 720 ml Output Total 1400 ml Balance 720 ml -1400 ml Intake Oral 720 ml Output Urine Total 1400 ml # Bowel Movements 1 Laboratory Tests 09/15/17 05:30: White Blood Count 4.1L, Red Blood Count 4.98, Hemoglobin 13.1L, Hematocrit 43.3 , Mean Corpuscular Volume 87, Mean Corpuscular Hemoglobin 26.3L, Mean Corpuscular Hemoglobin Concent 30.2L, Red Cell Distribution Width 20.9H, Platelet Count 239, Mean Platelet Volume 6.0L, Neutrophils (%) (Auto) 44.5L, Lymphocytes (%) (Auto) 32.7, Monocytes (%) (Auto) 15.1H, Eosinophils (%) (Auto) 3.5H, Basophils (%) (Auto) 4.3H, Sodium Level 135L, Potassium Level 4.1, Chloride Level 97L, Carbon Dioxide Level 30, Anion Gap 8, Blood Urea Nitrogen 35H, Creatinine 1.4H, Estimat Glomerular Filtration Rate > 60, Glucose Level 100 , Calcium Level 8.8, Total Bilirubin 0.6, Aspartate Amino Transf (AST/SGOT) 19, Alanine Aminotransferase (ALT/SGPT) 36, Alkaline Phosphatase 99, Total Protein 7.8, Albumin 3.1L, Globulin 4.7, Albumin/Globulin Ratio 0.7L Height (Feet): 5 Height (Inches): 9.00 Weight (Pounds): 150 General Appearance: alert EENT: normal ENT inspection Neck: normal alignment Cardiovascular: normal peripheral pulses, normal rate, regular rhythm Respiratory/Chest: chest wall non-tender, lungs clear, normal breath sounds Abdomen: normal bowel sounds, non tender, soft Extremities: normal inspection Edema: no edema noted Arm (L), no edema noted Arm (R), no edema noted Leg (L), no edema noted Leg (R), no edema noted Pedal (L), no edema noted Pedal (R), no edema noted Generalized Neurologic: responsive, motor weakness Skin: normal pigmentation, warm/dry ROCÍO MOJICA Sep 15, 2017 10:22
[2017-09-15] MEDS ORDERED: GABAPENTIN100 MG ORAL (10:56)
[2017-09-15] MEDS ORDERED: PROTONIX40 MG ORAL (10:56)
[2017-09-15] MEDS ORDERED: COLACE100 MG ORAL (10:56)
[2017-09-15] MEDS ORDERED: SPIRONOLACTONE50 MG ORAL (10:57)
--- NOTE | 2017-09-15 11:17 | Pulmonology Progress Note ---
Assessment/Plan Problems: (1) Right-sided heart failure (2) Cardiomyopathy due to hypertension, with heart failure (3) EF < 20% (4) Cirrhosis (5) Abdominal pain (6) Ascites (7) UTI (urinary tract infection) (8) Emphysema lung Assessment/Plan ASSESSMENT: The patient is a 62-year-old male with a history of congestive heart failure, ischemic cardiomyopathy, defibrillator, and atrial fibrillation, on anticoagulation presenting with vague diffuse abdominal pain with increased ascites and abnormal LFTs. Small pleural effusion is noted, which is decreased from prior. He has no respiratory symptoms. I suspect it is secondary to heart failure. At this point, it does not need to urgently be drained and I am unsure if drainage would be safe. PROBLEM LIST: 1. Small right-sided pleural effusion, likely secondary to congestive heart failure - IMPROVED 2. Congestive heart failure with ischemic cardiomyopathy, with ADHF 3. Atrial fibrillation status post ablation in the past, on anticoagulation. 4. Abnormal LFTs and ascites - IMPROVED 5. History of hepatitis B, hepatitis C, and cirrhosis. 6. History of hypertension. 7. Hypothyroidism. 8. Acute kidney injury, likely cardiorenal syndrome, improving with diuresis 9. Anemia. TREATMENT PLAN: 1. Optimize pulmonary hygiene/mobilize as tolerated. 2. PRN Proventil HHN 3. Monitor for signs of respiratory distress. 4. Followup Cardiology recommendations, continue lasix 40 PO BID + Aldactone 5. Monitor volumes and renal function, 6. Aspiration precautions. 7. DVT prophylaxis with Xarelto. 8. Observe off Abx per ID 9. Follow up GI recs 10. The patient is Full Code. 11. Stable for dispo from a pulmonary standpoint, can F/U with me in a few weeks Subjective Allergies: Coded Allergies: HYDROMORPHONE (Verified Allergy, Unknown, 12/28/10) Subjective AFVSS, stable on RA, no cough, no SOB, no F/C no abd pain, no NVDC, ren diet Objective Last 24 Hour Vital Signs Date Time Temp Pulse Resp B/P (MAP) Pulse Ox O2 Delivery O2 Flow Rate FiO2 09/15/17 11:01 98.1 09/15/17 10:02 98.1 09/15/17 09:57 114/61 09/15/17 09:56 77 114/61 09/15/17 08:50 81 18 Room Air 09/15/17 08:00 97.6 77 17 114/61 98 97.6 09/15/17 03:53 98.1 78 18 100/65 98.1 09/15/17 00:00 97.4 78 21 103/67 97 97.4 09/14/17 21:57 77 105/64 09/14/17 20:00 98.1 77 21 105/64 99 98.1 09/14/17 19:54 77 18 Room Air 21 09/14/17 16:04 97.1 77 21 96/63 99 Room Air 97.1 09/14/17 12:03 97.3 77 22 103/64 99 Room Air 97.3 Intake and Output 09/14/17 09/15/17 19:00 07:00 Intake Total 720 ml Output Total 1400 ml Balance 720 ml -1400 ml Intake Oral 720 ml Output Urine Total 1400 ml # Bowel Movements 1 General Appearance: WD/WN, no acute distress HEENT: normocephalic, atraumatic, anicteric, mucous membranes moist Respiratory/Chest: chest wall non-tender, lungs clear, normal breath sounds, no respiratory distress Cardiovascular: normal peripheral pulses, normal rate, regular rhythm Abdomen: normal bowel sounds, soft, non tender, no organomegaly, non distended , no mass Extremities: no cyanosis, no clubbing, no edema Laboratory Tests 09/15/17 05:30: White Blood Count 4.1L, Red Blood Count 4.98, Hemoglobin 13.1L, Hematocrit 43.3 , Mean Corpuscular Volume 87, Mean Corpuscular Hemoglobin 26.3L, Mean Corpuscular Hemoglobin Concent 30.2L, Red Cell Distribution Width 20.9H, Platelet Count 239, Mean Platelet Volume 6.0L, Neutrophils (%) (Auto) 44.5L, Lymphocytes (%) (Auto) 32.7, Monocytes (%) (Auto) 15.1H, Eosinophils (%) (Auto) 3.5H, Basophils (%) (Auto) 4.3H, Sodium Level 135L, Potassium Level 4.1, Chloride Level 97L, Carbon Dioxide Level 30, Anion Gap 8, Blood Urea Nitrogen 35H, Creatinine 1.4H, Estimat Glomerular Filtration Rate > 60, Glucose Level 100 , Calcium Level 8.8, Total Bilirubin 0.6, Aspartate Amino Transf (AST/SGOT) 19, Alanine Aminotransferase (ALT/SGPT) 36, Alkaline Phosphatase 99, Total Protein 7.8, Albumin 3.1L, Globulin 4.7, Albumin/Globulin Ratio 0.7L Current Medications Medications (Trade) Dose Ordered Sig/Allyn Route PRN Reason Start Time Stop Time Status Last Admin Dose Admin Acetaminophen/ Hydrocodone Bitart ([place] 10/325) 1 tab Q4H PRN ORAL For Pain 09/13/17 23:45 09/20/17 23:44 09/15/17 10:02 Albuterol Sulfate (Proventil MDI) 1 puff Q6H PRN INH Shortness of Breath 09/09/17 09:30 10/09/17 09:29 Carvedilol (Coreg) 6.25 mg EVERY 12 HOURS ORAL 09/09/17 09:00 10/09/17 08:59 09/15/17 09:56 Docusate Sodium (Colace) 100 mg TWICE A DAY ORAL 09/13/17 09:00 10/13/17 08:59 09/15/17 09:55 Furosemide (Lasix) 40 mg EVERY 12 HOURS ORAL 09/14/17 21:00 10/14/17 20:59 09/15/17 09:56 Gabapentin (Neurontin) 100 mg Q8HR ORAL 09/09/17 14:00 10/09/17 13:59 09/15/17 06:00 Levothyroxine Sodium (Synthroid) 88 mcg ACBREAKFAST ORAL 09/13/17 06:30 10/13/17 06:29 09/15/17 06:00 Lisinopril (Zestril) 10 mg DAILY ORAL 09/09/17 09:00 10/09/17 08:59 09/15/17 09:57 Multivitamins (Multivitamins) 2 tab DAILY ORAL 09/09/17 09:00 10/09/17 08:59 09/15/17 09:55 Pantoprazole (Protonix) 40 mg DAILY ORAL 09/09/17 09:00 10/09/17 08:59 09/15/17 09:55 Rivaroxaban (Xarelto) 20 mg DAILY ORAL 09/09/17 09:00 10/09/17 08:59 09/15/17 09:55 Spironolactone (Aldactone) 50 mg DAILY ORAL 09/09/17 09:00 10/09/17 08:59 09/15/17 09:55 ALBA HERNANDEZ M.D. Sep 15, 2017 11:17
--- NOTE | 2017-09-15 12:27 | Infectious Diseases Prog Note ---
"Assessment/Plan Assessment/Plan antibiotics : none A 1. klebsiella | enterococcus UTI s/p rx 2. hepatitis C 3. COPD 4. renal failure 5. CHF P 1. continue off antibiotics Subjective Constitutional: Denies: fever, chills Respiratory: Denies: shortness of breath, dry cough Gastrointestinal/Abdominal: Denies: nausea, vomiting, diarrhea Musculoskeletal: Denies: pain Allergies: Coded Allergies: HYDROMORPHONE (Verified Allergy, Unknown, 12/28/10) Objective Vital Signs Last 24 Hour Vital Signs Date Time Temp Pulse Resp B/P (MAP) Pulse Ox O2 Delivery O2 Flow Rate FiO2 09/15/17 11:01 98.1 09/15/17 10:02 98.1 09/15/17 09:57 114/61 09/15/17 09:56 77 114/61 09/15/17 08:50 81 18 Room Air 09/15/17 08:00 97.6 77 17 114/61 98 97.6 09/15/17 03:53 98.1 78 18 100/65 98.1 09/15/17 00:00 97.4 78 21 103/67 97 97.4 09/14/17 21:57 77 105/64 09/14/17 20:00 98.1 77 21 105/64 99 98.1 09/14/17 19:54 77 18 Room Air 21 09/14/17 16:04 97.1 77 21 96/63 99 Room Air 97.1 Height (Feet): 5 Height (Inches): 9.00 Weight (Pounds): 150 Respiratory/Chest: lungs clear Cardiovascular: normal rate, regular rhythm, no gallop/murmur Abdomen: soft, non tender Extremities: no edema Laboratory Tests Test 09/15/17 05:30 White Blood Count 4.1 K/UL (4.8-10.8) L Red Blood Count 4.98 M/UL (4.70-6.10) Hemoglobin 13.1 G/DL (14.2-18.0) L Hematocrit 43.3 % (42.0-52.0) Mean Corpuscular Volume 87 FL (80-99) Mean Corpuscular Hemoglobin 26.3 PG (27.0-31.0) L Mean Corpuscular Hemoglobin Concent 30.2 G/DL (32.0-36.0) L Red Cell Distribution Width 20.9 % (11.6-14.8) H Platelet Count 239 K/UL (150-450) Mean Platelet Volume 6.0 FL (6.5-10.1) L Neutrophils (%) (Auto) 44.5 % (45.0-75.0) L Lymphocytes (%) (Auto) 32.7 % (20.0-45.0) Monocytes (%) (Auto) 15.1 % (1.0-10.0) H Eosinophils (%) (Auto) 3.5 % (0.0-3.0) H Basophils (%) (Auto) 4.3 % (0.0-2.0) H Sodium Level 135 MMOL/L (136-145) L Potassium Level 4.1 MMOL/L (3.5-5.1) Chloride Level 97 MMOL/L (98-107) L Carbon Dioxide Level 30 MMOL/L (21-32) Anion Gap 8 mmol/L (5-15) Blood Urea Nitrogen 35 mg/dL (7-18) H Creatinine 1.4 MG/DL (0.55-1.30) H Estimat Glomerular Filtration Rate > 60 mL/min (>60) Glucose Level 100 MG/DL (74-106) Calcium Level 8.8 MG/DL (8.5-10.1) Total Bilirubin 0.6 MG/DL (0.2-1.0) Aspartate Amino Transf (AST/SGOT) 19 U/L (15-37) Alanine Aminotransferase (ALT/SGPT) 36 U/L (12-78) Alkaline Phosphatase 99 U/L (46-116) Total Protein 7.8 G/DL (6.4-8.2) Albumin 3.1 G/DL (3.4-5.0) L Globulin 4.7 g/dL Albumin/Globulin Ratio 0.7 (1.0-2.7) L GAYATHRI URBINA Sep 15, 2017 12:27"
--- NOTE | 2017-09-16 13:16 | Discharge Summary ---
Discharge Summary Discharge Summary Discharge Summary DATE OF ADMISSION: 09/08/2017 DATE OF DISCHARGE: 09/15/2017 REASON FOR ADMISSION: 62 years old male with history of severe cardiomyopathy, AICD, CHF, COPD, hepatitis C ,,thyroid disorder, hypertension presented to emergency department with increased epigastric pain. Patient has a prior history of cirrhosis and recurrent ascites as well as the hepatitis C. Patient reported intermittent abdominal pain and vomiting. No hematemesis ,no hematochezia and no melena. Vital signs were stable. Total bilirubin -2.9 ,direct bilirubin- 0.8. BUN-33, creatinine -1.5; stable AST, ALT. Troponin negative, hemoglobin -11.5, hematocrit -38.1. Lipase- 83, within normal limits. Urinalysis with evidence of UTI. EKG revealed atrial fibrillation with AV pacing. CT of the abdomen and pelvis revealed [id number] amount of ascites, [id number] pleural effusion, evidence of mild pulmonary edema. Mild bladder wall thickening. Prostatomegaly. Cardiomegaly. patient admitted with diagnosis of ascites, cyanosis, congestive heart failure, transaminitis, UTI. HOSPITAL COURSE: Patient admitted to telemetry floor. Cardiology, pulmonology, GI ,and ID specialist consults were requested. According to costumer assistant, patient had severe cardiomyopathy. Echocardiogram revealed ejection fraction of 20-25% with global left ventricular hypokinesia with severe pulmonary hypertension and moderate to severe mitral regurgitation. Medical management of congestive heart failure was continued with beta sina , MARINA inhibitor as well as with diuretics: Lasix and Aldactone. Cardiorenal parameters and volumes were closely monitored. Patient had a history of prior ablations x2, secondary to paroxysmal atrial fibrillation. Currently on a beta sina for rate control and anticoagulation with Xarelto. No evidence of bleeding. Patient had [employer] ICD defibrillator placement, however it had dysfunctional right ventricular lead which needs to be changed as outpatient. Patient also had evidevne of right-sided heart failure, diuresis was continued. Truck Mechanic Apprentice closely follow. Patient had small right sided pleural effusion, likely secondary to congestive heart failure. Patient was on diuretic. Follow- up chest x-ray revealed improvement in small sided pleural effusion. Supplemental oxygen provided as needed to keep pulse oximetry above 92% and pulmonary toilet provided as needed. Patient was closely monitored for any signs of respiratory distress. Aspiration precautions were maintained. Pulse oximetry was stable on room air prior to discharge. GI specialist followed. Patient undergone abdominal ultrasound which revealed on;y trace of ascites, amount of fluid was insufficient for paracentesis. Per GI, ascites was likely of cardiac origin. Bowel regimen instituted. Hemoglobin and hematocrit remained at the baseline. Renal ultrasound revealed no hydronephrosis and normal echogenicity bilaterally. Renal parameters were closely monitored, electrolytes were corrected as needed and nephrotoxins were avoided. Prior to discharge BUN down to 35 from initial 46 and creatine from initial 1.5 down to 1.4, improvement in renal parameters with diuretics points to likely cardiorenal syndrome. LFTs were trending down. Ammonia level was within normal limits. GI prophylaxis provided. ID specialist followed. Urine culture grew Klebsiella and Enterococci . Patient status post treatment for UTI with antibiotics. Patient clinically improved and was stable for discharge home. FINAL DIAGNOSES: 1. Severe cardiomyopathy with ejection fraction 20%. 2. Severe pulmonary hypertension. 3. Right-sided heart failure. 4. Paroxysmal atrial fibrillation. 5. Status post [employer] ICD, upgraded to biventricular defibrillator. 6. Transaminitis. 7. Hepatitis C. 8. Recurrent ascites. 9. Urinary tract infection with Klebsiella and Enterococci, status post treatment. 10. Acute kidney injury, likely cardiorenal syndrome, improving with diuretic. 11. Small right pleural effusion, likely secondary to CHF. 12. COPD. 13. Cirrhosis 14. Chronic abdominal pain likely secondary to cirrhosis DISCHARGE MEDICATIONS: See Medication Reconciliation list. DISCHARGE INSTRUCTIONS: Patient was discharged home Follow up with primary care provider in one week. I have been assigned to dictate discharge summary for this account. I was not involved in the patient's management. Aarti Bryant NP ([place]) Sep 16, 2017 13:16
== END 2017-09-15 14:34 | disposition home or self-care (01) | DRG 433 ==
LOC: EMR 14:29 → 2E 17:08 → EDBEDREQ 18:08 → 4E 18:39
DX: K74.60 Unspecified cirrhosis of liver (principal); N17.9 Acute kidney failure, unspecified; I13.0 Hypertensive heart and chronic kidney disease with heart failure and stage 1 through stage 4 chronic kidney disease, or unspecified chronic kidney disease; N39.0 Urinary tract infection, site not specified; I50.20 Unspecified systolic (congestive) heart failure; I50.810 Right heart failure, unspecified; Z88.6 Allergy status to analgesic agent; I48.0 Paroxysmal atrial fibrillation; I27.20 Pulmonary hypertension, unspecified; Z95.810 Presence of automatic (implantable) cardiac defibrillator; R74.0 Nonspecific elevation of levels of transaminase and lactic acid dehydrogenase [LDH]; N18.9 Chronic kidney disease, unspecified; B96.1 Klebsiella pneumoniae [K. pneumoniae] as the cause of diseases classified elsewhere; B95.2 Enterococcus as the cause of diseases classified elsewhere; N40.0 Benign prostatic hyperplasia without lower urinary tract symptoms; E03.9 Hypothyroidism, unspecified; G89.4 Chronic pain syndrome; Z79.01 Long term (current) use of anticoagulants; I25.5 Ischemic cardiomyopathy; D64.9 Anemia, unspecified; B96.89 Other specified bacterial agents as the cause of diseases classified elsewhere; M47.26 Other spondylosis with radiculopathy, lumbar region; J43.8 Other emphysema; K76.0 Fatty (change of) liver, not elsewhere classified; B19.20 Unspecified viral hepatitis C without hepatic coma
CPT/HCPCS: 36415; 71045; 74018; 74176; 76705; 76770; 80053; 81003; 82140; 82248; 82570; 82962; 83690; 83880; 83930; 83935; 84300; 84484; 85007; 85025; 85610; 85730; 86850; 86900; 86901; 87086; 87181; 89050; 93005; 93306; 94664; 96374; 96375; 99284; J2405

== ENCOUNTER 2017-09-29 13:23 | Inpatient (IN) | payer MEDICARE, MEDICAID ==
[~2017-09-29] VITALS: Ht 175.3 cm; Wt 75.3 kg
[~2017-09-29 13:23] MED LIST changes: +COLACE100 MG ORAL; +LISINOPRIL10 MG ORAL; +PROTONIX40 MG ORAL; +SPIRONOLACTONE50 MG ORAL; +XARELTO10 MG ORAL
[2017-09-29] MEDS ORDERED: ZOFRAN4 M3 ORAL (14:20)
[2017-09-29] MEDS ORDERED: FERROUS SULFAT325 MG ORAL (14:20)
[2017-09-29] MEDS ORDERED: VITAMIN C500 M1 ORAL (14:20)
[2017-09-29] MEDS ORDERED: COREG CR10 MG ORAL (14:20)
[2017-09-29] MEDS ORDERED: DIGOXIN125 MCG ORAL (14:20)
[2017-09-29] MEDS ORDERED: ROXICODONE15 MG ORAL (14:20)
[2017-09-29] MEDS ORDERED: SOTALOL80 M1 ORAL (14:20)
[2017-09-29] MEDS ORDERED: DIPHENHYDRAMINE25 M1 ORAL (14:20)
[2017-09-29] MEDS ORDERED: TIZANIDINE HCL4 MG ORAL (14:20)
[2017-09-29 14:22] LABS: BASOPHILS % (AUTO) 2.9 % (0.0-2.0); EOSINOPHILS % (AUTO) 1.1 % (0.0-3.0); HEMATOCRIT 34.5 % (42.0-52.0); HEMOGLOBIN 10.6 G/DL (14.2-18.0); LYMPHOCYTES % (AUTO) 21.7 % (20.0-45.0); MEAN CORPUSCULAR VOLUME 89 FL (80-99); MONOCYTES % (AUTO) 13.3 % (1.0-10.0); PLATELET COUNT 193 K/UL (150-450); RED BLOOD COUNT 3.87 M/UL (4.70-6.10); RED CELL DISTRIBUTION WIDTH 20.8 % (11.6-14.8); WHITE BLOOD COUNT 4.6 K/UL (4.8-10.8)
--- NOTE | 2017-09-29 14:23 | Emergency Room Report ---
History of Present Illness General Chief Complaint: Chest Pain Source: Patient Present Illness HPI Patient presents with complaints of chest pain Reports that he feels short of breath Pain is 5 out of 10 heaviness Denies any headache denies any neck pain or photophobia denies any back or flank pain Patient has history of COPD and CHF He also has history of hepatitis C, is not sure which is contributing to his shortness of breath Denies any fevers or cough Allergies: Coded Allergies: HYDROMORPHONE (Verified Allergy, Unknown, 12/28/10) Patient History Past Medical History: see triage record Pertinent Family History: none Reviewed Nursing Documentation: PMH: Agreed; PSxH: Agreed Nursing Documentation-PMH Hx Cardiac Problems: Yes Hx Hypertension: Yes Hx Pacemaker: Yes - Left upper chest Hx COPD: Yes Hx Cancer: No Hx Gastrointestinal Problems: No Hx Neurological Problems: No Hx Cerebrovascular Accident: No Hx Transient Ischemic Attacks: No Review of Systems All Other Systems: negative except mentioned in HPI Physical Exam Vital Signs Date Time Temp Pulse Resp B/P (MAP) Pulse Ox O2 Delivery O2 Flow Rate FiO2 09/29/17 13:28 98.3 84 18 113/79 95 Room Air 98.2 Sp02 EP Interpretation: reviewed, normal General Appearance: mild distress - Appears mildly short of breath Head: normocephalic, atraumatic Eyes: bilateral eye PERRL, bilateral eye EOMI ENT: normal pharynx Neck: full range of motion, supple Respiratory: no respiratory distress, no retraction, crackles - Both lower lobes Cardiovascular #1: regular rate, rhythm, no gallop Gastrointestinal: other - Mild distention, appearance of ascites Musculoskeletal: normal inspection Neurologic: alert, oriented x3 Skin: no rash, warm/dry Medical Decision Making Diagnostic Impression: Primary Impression: ACS (acute coronary syndrome) ER Course Patient is a fairly complex patient with multiple differential to consideration including but not limited to cardiac cardiopulmonary and vascular emergencies Patient EKG does not show any obvious ST elevation however there are nonspecific changes Patient does better after pain medication at this time requires further inpatient care Labs Test 09/29/17 13:40 09/29/17 16:45 White Blood Count 4.6 K/UL (4.8-10.8) Red Blood Count 3.87 M/UL (4.70-6.10) Hemoglobin 10.6 G/DL (14.2-18.0) Hematocrit 34.5 % (42.0-52.0) Mean Corpuscular Volume 89 FL (80-99) Mean Corpuscular Hemoglobin 27.4 PG (27.0-31.0) Mean Corpuscular Hemoglobin Concent 30.7 G/DL (32.0-36.0) Red Cell Distribution Width 20.8 % (11.6-14.8) Platelet Count 193 K/UL (150-450) Mean Platelet Volume 7.4 FL (6.5-10.1) Neutrophils (%) (Auto) 61.0 % (45.0-75.0) Lymphocytes (%) (Auto) 21.7 % (20.0-45.0) Monocytes (%) (Auto) 13.3 % (1.0-10.0) Eosinophils (%) (Auto) 1.1 % (0.0-3.0) Basophils (%) (Auto) 2.9 % (0.0-2.0) Sodium Level 135 MMOL/L (136-145) Potassium Level 4.5 MMOL/L (3.5-5.1) Chloride Level 101 MMOL/L (98-107) Carbon Dioxide Level 25 MMOL/L (21-32) Anion Gap 9 mmol/L (5-15) Blood Urea Nitrogen 28 mg/dL (7-18) Creatinine 1.5 MG/DL (0.55-1.30) Estimat Glomerular Filtration Rate 57.1 mL/min (>60) Glucose Level 91 MG/DL (74-106) Calcium Level 8.9 MG/DL (8.5-10.1) Total Bilirubin 2.5 MG/DL (0.2-1.0) Direct Bilirubin 0.9 MG/DL (0.0-0.3) Aspartate Amino Transf (AST/SGOT) 20 U/L (15-37) Alanine Aminotransferase (ALT/SGPT) 17 U/L (12-78) Alkaline Phosphatase 124 U/L (46-116) Total Creatine Kinase 90 U/L (26-308) Creatine Kinase MB 0.9 NG/ML (0.0-3.6) Creatine Kinase MB Relative Index 1.0 Troponin I 0.023 ng/mL (0.000-0.056) Total Protein 7.6 G/DL (6.4-8.2) Albumin 3.5 G/DL (3.4-5.0) Globulin 4.1 g/dL Albumin/Globulin Ratio 0.9 (1.0-2.7) Lipase 91 U/L (73-393) Urine Color Brown Urine Appearance Clear Urine pH 5 (4.5-8.0) Urine Specific [place] 1.025 (1.005-1.035) Urine Protein 3+ (NEGATIVE) Urine Glucose (UA) Negative (NEGATIVE) Urine Ketones Negative (NEGATIVE) Urine Occult Blood Negative (NEGATIVE) Urine Nitrite Negative (NEGATIVE) Urine Bilirubin 1+ (NEGATIVE) Urine Ictotest Negative Urine Urobilinogen 4 MG/DL (0.0-1.0) Urine Leukocyte Esterase 1+ (NEGATIVE) Urine RBC 2-4 /HPF (0 - 0) Urine WBC 0-2 /HPF (0 - 0) Urine Squamous Epithelial Cells None /LPF (NONE/OCC) Urine Amorphous Sediment Few /LPF (NONE) Urine Bacteria Few /HPF (NONE) Urine Opiates Screen Positive (NEGATIVE) Urine Barbiturates Screen Negative (NEGATIVE) Phencyclidine (PCP) Screen Negative (NEGATIVE) Urine Amphetamines Screen Negative (NEGATIVE) Urine Benzodiazepines Screen Negative (NEGATIVE) Urine Cocaine Screen Negative (NEGATIVE) Urine Marijuana (THC) Screen Positive (NEGATIVE) EKG Diagnostic Results Rate: normal Rhythm: NSR ST Segments: other - Nonspecific ST T-wave changes Rhythm Strip Diag. Results EP Interpretation: yes Rate: 76 Rhythm: NSR, no PVC's, no ectopy Chest X-Ray Diagnostic Results Chest X-Ray Diagnostic Results : Chest X-Ray Ordered: Yes # of Views/Limited/Complete: 1 View Indication: Chest Pain EP Interpretation: Yes Interpretation: no consolidation, no effusion, no pneumothorax, no acute cardiopulmonary disease - Cardiomegaly Impression: No acute disease Electronically Signed by: Winston Luther DO Last Vital Signs Date Time Temp Pulse Resp B/P (MAP) Pulse Ox O2 Delivery O2 Flow Rate FiO2 09/29/17 13:28 98.3 84 18 113/79 95 Room Air 98.2 Status: improved Disposition: ADMITTED INPATIENT Condition: Serious Winston Luther DO Sep 29, 2017 14:23
[2017-09-29 14:26] LABS: ANION GAP 9 mmol/L (5-15); BLOOD UREA NITROGEN 28 mg/dL (7-18); CALCIUM 8.9 MG/DL (8.5-10.1); CARBON DIOXIDE 25 MMOL/L (21-32); CHLORIDE 101 MMOL/L (98-107); CREATININE 1.5 MG/DL (0.55-1.30); POTASSIUM 4.5 MMOL/L (3.5-5.1); SODIUM 135 MMOL/L (136-145)
[2017-09-29 14:39] LABS: ALANINE AMINOTRANSFERASE 17 U/L (12-78); ALBUMIN 3.5 G/DL (3.4-5.0); ALBUMIN/GLOBULIN RATIO 0.9 (1.0-2.7); ALKALINE PHOSPHATASE 124 U/L (46-116); ASPARTATE AMINO TRANSFERASE 20 U/L (15-37); BILIRUBIN,TOTAL 2.5 MG/DL (0.2-1.0); CKMB 0.9 NG/ML (0.0-3.6); CREATINE KINASE 90 U/L (26-308)
[2017-09-29 14:45] LABS: BILIRUBIN,DIRECT 0.9 MG/DL (0.0-0.3)
[2017-09-29] MEDS ORDERED: Morphine Sulfate 4mg/ml Inj IVP ONE (15:00)
[2017-09-29 15:36] VITALS: BP 128/87
--- NOTE | 2017-09-29 16:36 | Diagnostic Imaging Report ---
Indication: Chest pain Technique: One view of the chest Comparison: 09/12/2017 Findings: Less optimal inspiration currently. Again demonstrated is mild cardiomegaly. Lungs and pleural spaces are clear. Again demonstrated is a left chest AICD. Findings are unchanged Impression: Cardiomegaly. No acute process
[2017-09-29 17:09] LABS: APPEARANCE,URINE CLEAR; BILIRUBIN, URINE 1+ (NEGATIVE); COLOR,URINE BROWN; GLUCOSE, URINE (UA) NEGATIVE (NEGATIVE); KETONES,URINE NEGATIVE (NEGATIVE); LEUKOCYTE ESTERASE ,URINE 1+ (NEGATIVE); NITRITE,URINE NEGATIVE (NEGATIVE); PH,URINE 5 (4.5-8.0); PROTEIN,URINE 3+ (NEGATIVE); UROBILINOGEN,URINE 4 MG/DL (0.0-1.0)
[2017-09-29] MEDS ORDERED: Nitroglycerin Subl 0.4mg tab SL PRN (19:45)
[2017-09-29] MEDS ORDERED: Enalaprilat 2.5mg/2ml Inj IV PRN (19:45)
[2017-09-29] MEDS ORDERED: dilTIAZem HCl 25mg/5ml Inj IV PRN (19:45)
[2017-09-29] MEDS ORDERED: Albuterol/Ipratropium 3ml neb HHN PRN (19:45)
[2017-09-29] MEDS ORDERED: Ketorolac 30mg Inj IV PRN (19:45)
[2017-09-29] MEDS ORDERED: Miralax 17gm pkt ORAL PRN (19:45)
[2017-09-29] MEDS: Carvedilol 6.25mg Tab ORAL SCH (20:52)
[2017-09-29] MEDS: Sotalol 80mg tab ORAL SCH (20:53)
[2017-09-30] VITALS: BP 104/71
[2017-09-30 04:00] VITALS: BP 103/77
[2017-09-30 08:00] VITALS: BP 100/70
--- NOTE | 2017-09-30 08:59 | General Progress Note ---
Assessment/Plan Assessment/Plan (1) Lumbar degenerative disc disease (2) Lumbar spondylosis (3) Lumbar radiculopathy (4) Liver Cirrhosis (5) Abdominal pain Assessment & Plan: Pt will be discontinued off Toradol and will be started on Oxycodone 10mg PO 1 tab BID as needed for severe pain. Pt was d/w Dr. Carson and he concurred. Subjective Date patient seen: Sep 30, 2017 Time patient seen: 08:00 - am Allergies: Coded Allergies: HYDROMORPHONE (Verified Allergy, Unknown, 12/28/10) Subjective Constitutional: Reports: weakness, Denies: chills, diaphoresis, fever, malaise , no symptoms, other HEENT: Denies: blurred vision, double vision, ear discharge, ear pain, eye pain , mouth pain, mouth swelling, no symptoms, nose congestion, nose pain, other, tearing, throat pain, throat swelling Cardiovascular: Denies: irregular heart rate, lightheadedness, no symptoms, other, palpitations, syncope Respiratory: Denies: SOB at rest, SOB with excertion, cough, no symptoms, orthopnea, other, shortness of breath, sputum, stridor, wheezing Gastrointestinal/Abdominal: Reports: abdominal pain, Denies: abdomen distended , black stools, blood in stool, constipated, diarrhea, difficulty swallowing, nausea, no symptoms, other, poor appetite, poor fluid intake, rectal bleeding, tarry stools, vomiting Genitourinary: Denies: burning, discharge, flank pain, frequency, hematuria, incontinence, no symptoms, other, pain, urgency Neurologic/Psychiatric: Reports: weakness, Denies: anxiety, depressed, emotional problems, headache, no symptoms, numbness, other, paresthesia, pre- existing deficit, seizure, tingling, tremors Endocrine: Denies: excessive sweating, flushing, increased hunger, increased thirst, increased urine, intolerance to cold, intolerance to heat, no symptoms, other, unexplained weight gain, unexplained weight loss Hematologic/Lymphatic: Denies: anemia, easy bleeding, easy bruising, no symptoms, other Subjective Patient is a known patient and has been admitted under the care of Dr. Kessler due to chest pain abdominal pain. Continues to have liver disease and back pain. He was started on Toradol no relief. Takes Oxycodone as out pt which has been helping. Objective Last 24 Hour Vital Signs Date Time Temp Pulse Resp B/P (MAP) Pulse Ox O2 Delivery O2 Flow Rate FiO2 09/30/17 08:00 97.2 79 18 100/70 100 Room Air 97.2 09/30/17 04:00 96.8 75 21 103/77 98 Room Air 96.8 09/30/17 04:00 75 09/30/17 00:00 97.0 76 20 104/71 94 Room Air 97.0 09/30/17 00:00 75 09/29/17 20:53 93 124/72 09/29/17 20:52 93 124/72 09/29/17 20:00 78 09/29/17 16:30 98.3 76 14 128/87 100 Room Air 98.3 09/29/17 15:36 98.3 76 14 128/87 100 Room Air 98.3 09/29/17 15:35 98.3 09/29/17 15:05 98.3 09/29/17 13:38 76 15 Room Air 09/29/17 13:28 98.3 84 18 113/79 95 Room Air 98.2 Intake and Output 09/29/17 09/30/17 19:00 07:00 Intake Total 0 ml 200 ml Balance 0 ml 200 ml Intake Oral 0 ml 200 ml Laboratory Tests 09/29/17 13:40: White Blood Count 4.6L, Red Blood Count 3.87L, Hemoglobin 10.6L, Hematocrit 34.5L, Mean Corpuscular Volume 89, Mean Corpuscular Hemoglobin 27.4, Mean Corpuscular Hemoglobin Concent 30.7L, Red Cell Distribution Width 20.8H, Platelet Count 193, Mean Platelet Volume 7.4, Neutrophils (%) (Auto) 61.0, Lymphocytes (%) (Auto) 21.7, Monocytes (%) (Auto) 13.3H, Eosinophils (%) (Auto) 1.1, Basophils (%) (Auto) 2.9H, Sodium Level 135L, Potassium Level 4.5, Chloride Level 101, Carbon Dioxide Level 25, Anion Gap 9, Blood Urea Nitrogen 28H, Creatinine 1.5H, Estimat Glomerular Filtration Rate 57.1, Glucose Level 91 , Calcium Level 8.9, Total Bilirubin 2.5H, Direct Bilirubin 0.9H, Aspartate Amino Transf (AST/SGOT) 20, Alanine Aminotransferase (ALT/SGPT) 17, Alkaline Phosphatase 124H, Total Creatine Kinase 90, Creatine Kinase MB 0.9, Creatine Kinase MB Relative Index 1.0, Troponin I 0.023, Total Protein 7.6, Albumin 3.5, Globulin 4.1, Albumin/Globulin Ratio 0.9L, Lipase 91 09/29/17 16:45: Urine Color Brown, Urine Appearance Clear, Urine pH 5, Urine Specific [place] 1.025, Urine Protein 3+H, Urine Glucose (UA) Negative, Urine Ketones Negative, Urine Occult Blood Negative, Urine Nitrite Negative, Urine Bilirubin 1+H, Urine Ictotest Negative, Urine Urobilinogen 4H, Urine Leukocyte Esterase 1+H, Urine RBC 2-4H, Urine WBC 0-2, Urine Squamous Epithelial Cells None, Urine Amorphous Sediment FewH, Urine Bacteria Few, Urine Opiates Screen PositiveH, Urine Barbiturates Screen Negative, Phencyclidine (PCP) Screen Negative, Urine Amphetamines Screen Negative, Urine Benzodiazepines Screen Negative, Urine Cocaine Screen Negative, Urine Marijuana (THC) Screen PositiveH 09/29/17 20:10: Troponin I 0.024 Height (Feet): 5 Height (Inches): 9.00 Weight (Pounds): 163 Objective General Appearance: no apparent distress, alert EENT: normal ENT inspection, TMs normal Neck: normal alignment, supple Cardiovascular: normal rate, regular rhythm Respiratory/Chest: lungs clear, normal breath sounds Abdomen: tender, distended Extremities: non-tender Edema: edema noted in b/l LE Neurologic: alert, oriented x 3 Skin: warm/dry SARANYA GRAY Sep 30, 2017 08:59
[2017-09-30] MEDS: Carvedilol 6.25mg Tab ORAL SCH ×2 (09:00→21:00)
[2017-09-30] MEDS ORDERED: Lisinopril 10mg tab ORAL SCH (09:00)
[2017-09-30] MEDS: Sotalol 80mg tab ORAL SCH ×2 (09:00→21:57)
[2017-09-30 09:32] LABS: BASOPHILS % (AUTO) 1.5 % (0.0-2.0); EOSINOPHILS % (AUTO) 1.7 % (0.0-3.0); HEMATOCRIT 34.5 % (42.0-52.0); HEMOGLOBIN 10.8 G/DL (14.2-18.0); LYMPHOCYTES % (AUTO) 22.8 % (20.0-45.0); MEAN CORPUSCULAR VOLUME 88 FL (80-99); MONOCYTES % (AUTO) 11.5 % (1.0-10.0); NEUTROPHILS % (AUTO) 62.6 % (45.0-75.0); PLATELET COUNT 176 K/UL (150-450); RED BLOOD COUNT 3.92 M/UL (4.70-6.10); RED CELL DISTRIBUTION WIDTH 21.7 % (11.6-14.8); WHITE BLOOD COUNT 3.9 K/UL (4.8-10.8)
[2017-09-30] MEDS: Xarelto 10mg tab ORAL SCH (09:41)
[2017-09-30] MEDS: Digoxin 0.125mg tab ORAL SCH (09:42)
[2017-09-30] MEDS: Aspirin Baby 81mg ORAL SCH (09:43)
[2017-09-30] MEDS: oxyCODONE 5mg IR tab ORAL PRN (09:48)
[2017-09-30 09:54] LABS: INR 1.7 (0.9-1.1)
[2017-09-30 10:05] LABS: CHOLESTEROL 143 MG/DL (< 200); HDL CHOLESTEROL 23 MG/DL (40-60); TRIGLYCERIDES 65 MG/DL (30-150)
[2017-09-30 12:00] VITALS: BP 95/52
--- NOTE | 2017-09-30 12:48 | Consultation ---
History of Present Illness General Date patient seen: Sep 30, 2017 Chief Complaint: Chest Pain Referring physician: Dr. Cherry Reason for Consultation: dyspnea Present Illness HPI 62 year old male with hx of End stage systolic heart failure, COPD, Hep C presented with complaints of chest pain and shortness of breath. Pain is 5 out of 10. He also c/o distended abdomen and left flank pain. Allergies: Coded Allergies: HYDROMORPHONE (Verified Allergy, Unknown, 12/28/10) Medication History Scheduled Ascorbic Acid* (Vitamin C*), 500 MG ORAL DAILY, (Reported) Carvedilol Phosphate (Coreg Cr), 3.15 MG ORAL DAILY, (Reported) Carvedilol* (Carvedilol*), 6.25 MG ORAL EVERY 12 HOURS, (Reported) Digoxin* (Digoxin*), 125 MCG ORAL DAILY, (Reported) Docusate Sodium* (Colace*), 100 MG ORAL BID, (Reported) Ferrous Sulfate* (Ferrous Sulfate*), 325 MG ORAL DAILY, (Reported) Furosemide* (Lasix*), 40 MG ORAL TWICE A DAY, (Reported) Gabapentin* (Gabapentin*), 100 MG ORAL THREE TIMES A DAY, (Reported) Levothyroxine Sodium* (Levothyroxine Sodium*), 88 MCG ORAL DAILY, (Reported) Lisinopril* (Lisinopril*), 10 MG ORAL DAILY, (Reported) Multivitamins* (Multivitamins*), 2 TAB ORAL DAILY, (Reported) Pantoprazole* (Protonix*), 40 MG ORAL DAILY, (Reported) Rivaroxaban (Xarelto*), 20 MG ORAL DAILY, (Reported) Sotalol Hcl (Sotalol*), 80 MG ORAL BID, (Reported) Spironolactone* (Spironolactone*), 50 MG ORAL DAILY, (Reported) Spironolactone* (Aldactone*), 50 MG ORAL DAILY, (Reported) Tizanidine Hcl* (Zanaflex*), 4 MG ORAL THREE TIMES A DAY, (Reported) Scheduled PRN Diphenhydramine Hcl* (Diphenhydramine Hcl*), 25 MG ORAL Q6H PRN for Itching, ( Reported) OXYCODONE HCl* (Roxicodone*), 15 MG ORAL Q6H PRN for For Pain, (Reported) Ondansetron* (Zofran*), 4 MG ORAL Q6H PRN for Nausea & Vomiting, (Reported) Zolpidem Tartrate* (Zolpidem Tartrate*), 10 MG ORAL BEDTIME PRN for Insomnia, ( Reported) Patient History Healthcare decision maker N Resuscitation status Full Code Advanced Directive on File Past Medical/Surgical History Past Medical/Surgical History: (1) Cirrhosis (2) CHF (congestive heart failure) (3) EF < 20% (4) Hepatitis C (5) Right-sided heart failure (6) ICD (implantable cardioverter-defibrillator) in place Review of Systems All Other Systems: negative except mentioned in HPI Physical Exam General Appearance: WD/WN Lines, tubes and drains: peripheral HEENT: normocephalic, atraumatic, PERRL Neck: normal alignment, supple Respiratory/Chest: lungs clear, normal breath sounds Cardiovascular/Chest: normal peripheral pulses Abdomen: normal bowel sounds Last 24 Hour Vital Signs Date Time Temp Pulse Resp B/P (MAP) Pulse Ox O2 Delivery O2 Flow Rate FiO2 09/30/17 12:00 96.1 75 20 95/52 98 Room Air 96.1 09/30/17 11:39 75 09/30/17 09:42 100/70 09/30/17 09:42 77 09/30/17 09:00 79 100/70 09/30/17 09:00 79 100/70 09/30/17 08:00 97.2 79 18 100/70 100 Room Air 97.2 09/30/17 07:30 77 09/30/17 07:25 76 18 Room Air 21 09/30/17 04:00 96.8 75 21 103/77 98 Room Air 96.8 09/30/17 04:00 75 09/30/17 00:00 97.0 76 20 104/71 94 Room Air 97.0 09/30/17 00:00 75 09/29/17 20:53 93 124/72 09/29/17 20:52 93 124/72 09/29/17 20:00 78 09/29/17 16:30 98.3 76 14 128/87 100 Room Air 98.3 09/29/17 15:36 98.3 76 14 128/87 100 Room Air 98.3 09/29/17 15:35 98.3 09/29/17 15:05 98.3 09/29/17 13:38 76 15 Room Air 09/29/17 13:28 98.3 84 18 113/79 95 Room Air 98.2 Intake and Output 09/29/17 09/30/17 19:00 07:00 Intake Total 0 ml 200 ml Balance 0 ml 200 ml Intake Oral 0 ml 200 ml Laboratory Tests Test 09/29/17 13:40 09/29/17 16:45 09/29/17 20:10 09/30/17 09:05 White Blood Count 4.6 K/UL (4.8-10.8) L 3.9 K/UL (4.8-10.8) L Red Blood Count 3.87 M/UL (4.70-6.10) L 3.92 M/UL (4.70-6.10) L Hemoglobin 10.6 G/DL (14.2-18.0) L 10.8 G/DL (14.2-18.0) L Hematocrit 34.5 % (42.0-52.0) L 34.5 % (42.0-52.0) L Mean Corpuscular Volume 89 FL (80-99) 88 FL (80-99) Mean Corpuscular Hemoglobin 27.4 PG (27.0-31.0) 27.7 PG (27.0-31.0) Mean Corpuscular Hemoglobin Concent 30.7 G/DL (32.0-36.0) L 31.4 G/DL (32.0-36.0) L Red Cell Distribution Width 20.8 % (11.6-14.8) H 21.7 % (11.6-14.8) H Platelet Count 193 K/UL (150-450) 176 K/UL (150-450) Mean Platelet Volume 7.4 FL (6.5-10.1) 6.5 FL (6.5-10.1) Neutrophils (%) (Auto) 61.0 % (45.0-75.0) 62.6 % (45.0-75.0) Lymphocytes (%) (Auto) 21.7 % (20.0-45.0) 22.8 % (20.0-45.0) Monocytes (%) (Auto) 13.3 % (1.0-10.0) H 11.5 % (1.0-10.0) H Eosinophils (%) (Auto) 1.1 % (0.0-3.0) 1.7 % (0.0-3.0) Basophils (%) (Auto) 2.9 % (0.0-2.0) H 1.5 % (0.0-2.0) Sodium Level 135 MMOL/L (136-145) L Potassium Level 4.5 MMOL/L (3.5-5.1) Chloride Level 101 MMOL/L (98-107) Carbon Dioxide Level 25 MMOL/L (21-32) Anion Gap 9 mmol/L (5-15) Blood Urea Nitrogen 28 mg/dL (7-18) H Creatinine 1.5 MG/DL (0.55-1.30) H Estimat Glomerular Filtration Rate 57.1 mL/min (>60) Glucose Level 91 MG/DL (74-106) Calcium Level 8.9 MG/DL (8.5-10.1) Total Bilirubin 2.5 MG/DL (0.2-1.0) H Direct Bilirubin 0.9 MG/DL (0.0-0.3) H Aspartate Amino Transf (AST/SGOT) 20 U/L (15-37) Alanine Aminotransferase (ALT/SGPT) 17 U/L (12-78) Alkaline Phosphatase 124 U/L (46-116) H Total Creatine Kinase 90 U/L (26-308) Creatine Kinase MB 0.9 NG/ML (0.0-3.6) Creatine Kinase MB Relative Index 1.0 Troponin I 0.023 ng/mL (0.000-0.056) 0.024 ng/mL (0.000-0.056) 0.011 ng/mL (0.000-0.056) Total Protein 7.6 G/DL (6.4-8.2) Albumin 3.5 G/DL (3.4-5.0) Globulin 4.1 g/dL Albumin/Globulin Ratio 0.9 (1.0-2.7) L Lipase 91 U/L (73-393) Urine Color Brown Urine Appearance Clear Urine pH 5 (4.5-8.0) Urine Specific [place] 1.025 (1.005-1.035) Urine Protein 3+ (NEGATIVE) H Urine Glucose (UA) Negative (NEGATIVE) Urine Ketones Negative (NEGATIVE) Urine Occult Blood Negative (NEGATIVE) Urine Nitrite Negative (NEGATIVE) Urine Bilirubin 1+ (NEGATIVE) H Urine Ictotest Negative Urine Urobilinogen 4 MG/DL (0.0-1.0) H Urine Leukocyte Esterase 1+ (NEGATIVE) H Urine RBC 2-4 /HPF (0 - 0) H Urine WBC 0-2 /HPF (0 - 0) Urine Squamous Epithelial Cells None /LPF (NONE/OCC) Urine Amorphous Sediment Few /LPF (NONE) H Urine Bacteria Few /HPF (NONE) Urine Opiates Screen Positive (NEGATIVE) H Urine Barbiturates Screen Negative (NEGATIVE) Phencyclidine (PCP) Screen Negative (NEGATIVE) Urine Amphetamines Screen Negative (NEGATIVE) Urine Benzodiazepines Screen Negative (NEGATIVE) Urine Cocaine Screen Negative (NEGATIVE) Urine Marijuana (THC) Screen Positive (NEGATIVE) H Prothrombin Time 18.1 SEC (9.30-11.50) H Prothromb Time International Ratio 1.7 (0.9-1.1) H Activated Partial Thromboplast Time 29 SEC (23-33) C-Reactive Protein, Quantitative 1.5 mg/dL (0.00-0.90) H Triglycerides Level 65 MG/DL (30-150) Cholesterol Level 143 MG/DL (< 200) LDL Cholesterol 122 mg/dL (<100) H HDL Cholesterol 23 MG/DL (40-60) L Cholesterol/HDL Ratio 6.2 (3.3-4.4) H Thyroid Stimulating Hormone (TSH) 17.971 uiU/mL (0.358-3.740) Height (Feet): 5 Height (Inches): 9.00 Weight (Pounds): 163 Medications Current Medications Medications (Trade) Dose Ordered Sig/Allyn Route PRN Reason Start Time Stop Time Status Last Admin Dose Admin Acetaminophen (Tylenol) 650 mg Q4H PRN ORAL FEVER 09/29/17 19:45 10/29/17 19:44 Albuterol/ Ipratropium (Albuterol/ Ipratropium) 3 ml EVERY 4 HOURS PRN HHN Shortness of Breath 09/29/17 19:45 10/04/17 19:44 Aspirin (ASA) 162 mg DAILY ORAL 09/30/17 09:00 10/30/17 08:59 09/30/17 09:43 Carvedilol (Coreg) 6.25 mg EVERY 12 HOURS ORAL 09/29/17 21:00 10/29/17 20:59 09/29/17 20:52 Digoxin (Lanoxin) 0.125 mg DAILY ORAL 09/30/17 09:00 10/30/17 08:59 09/30/17 09:42 Diltiazem HCl (Cardizem) 10 mg EVERY HOUR PRN IV heart rate more than 120, 09/29/17 19:45 10/29/17 19:44 Enalaprilat (Vasotec) 2.5 mg EVERY 6 HOURS PRN IV sbp more than 160 09/29/17 19:45 10/29/17 19:44 Gabapentin (Neurontin) 100 mg THREE TIMES A DAY ORAL 09/30/17 09:00 10/30/17 08:59 09/30/17 09:43 Levothyroxine Sodium (Synthroid) 88 mcg ACBREAKFAST ORAL 10/01/17 06:30 10/30/17 08:59 Lisinopril (Zestril) 10 mg DAILY ORAL 09/30/17 09:00 10/30/17 08:59 09/30/17 09:42 Nitroglycerin (Ntg) 0.4 mg Every 5 Minutes PRN SL Prn Chest Pain 09/29/17 19:45 10/29/17 19:44 Ondansetron HCl (Zofran) 4 mg Q6H PRN IVP Nausea & Vomiting 09/29/17 19:45 10/29/17 19:44 Oxycodone HCl (Roxicodone) 10 mg BID PRN ORAL severe pain 09/30/17 09:00 10/07/17 08:59 09/30/17 09:48 Polyethylene Glycol (Miralax) 17 gm DAILYPRN PRN ORAL Constipation 09/29/17 19:45 10/29/17 19:44 Rivaroxaban (Xarelto) 20 mg DAILY ORAL 09/30/17 09:00 10/30/17 08:59 09/30/17 09:41 Sotalol HCl (Betapace) 80 mg Q12HR ORAL 09/29/17 21:00 10/29/17 20:59 09/29/17 20:53 Temazepam (Restoril) 15 mg HSPRN PRN ORAL Insomnia 09/29/17 19:45 10/06/17 19:44 09/29/17 23:27 Tizanidine HCl (Zanaflex) 4 mg THREE TIMES A DAY ORAL 09/30/17 09:00 10/30/17 08:59 09/30/17 09:41 Assessment/Plan Problem List: (1) ACS (acute coronary syndrome) ICD Codes: I24.9 - Acute coronary syndrome SNOMED: 250538423 (2) Ascites ICD Codes: R18.8 - Ascites SNOMED: 911444751 (3) Emphysema lung ICD Codes: J43.9 - Emphysema lung SNOMED: 05570579 (4) EF < 20% (5) Hepatitis C ICD Codes: B19.20 - Hepatitis C SNOMED: 33073906 (6) Right-sided heart failure ICD Codes: I50.9 - Right-sided heart failure SNOMED: 818936255 (7) ICD (implantable cardioverter-defibrillator) in place ICD Codes: Z95.810 - Presence of automatic (implantable) cardiac defibrillator SNOMED: 870275889, 882671460 (8) Cirrhosis ICD Codes: K74.60 - Unspecified cirrhosis of liver SNOMED: 26033153 Assessment/Plan symptomatic treatment abd US cardiology consult drug rehab consult social group worker. Andrzej Chavarria MD Sep 30, 2017 12:48
--- NOTE | 2017-09-30 14:11 | Cardiology Report ---
APPROVED REPORT EXAM: Two-dimensional and M-mode echocardiogram with Doppler and color Doppler. INDICATION LV function M-Mode DIMENSIONS IVSd0.9 (0.7-1.1cm)Left Atrium (MM)6.1 (1.6-4.0cm) LVDd6.0 (3.5-5.6cm)Aortic Root2.9 (2.0-3.7cm) PWd1.3 (0.7-1.1cm)Aortic Cusp Exc.2.1 (1.5-2.0cm) LVDs5.0 (2.5-4.0cm) PWs1.9 cm Moderate left ventricular enlargement. Severe global left ventricular hypokinesis with septal thinning. Best motion seen in proximal post wall and lateral jaquez. Left ventricular ejection fraction estimated to be 15-20%. No evidence of left ventricular hypertrophy. Small posterior pericardial effusion. Severe left atrial enlargement by 2-D. Moderate right atrial enlargement by 2D. Mild right ventricular enlargement. Focal aortic valve sclerosis with adequate cusp excursion. Thickened mitral valve leaflets with normal excursion. Mild mitral annulus and aortic root calcification. Pulmonic valve is not well visualized. Normal tricuspid valve structure. IVC dilated at 3.0 cm non-collapsible with respiration indicate RA pressure at least 20 mmHg. Pacemaker wire present in the right side chambers. Increased apical echoes not typical for thrombus however one cannot be excluded. A color flow and spectral Doppler study was performed and revealed: Trace aortic regurgitation. Moderate mitral regurgitation. Can not determine left ventricular diastolic function based on mitral diastolic velocities due to atrial fibrillation. Moderate to severe tricuspid regurgitation. Tricuspid systolic velocities suggests peak right ventricular systolic pressure of 97 mmHg, consistent with severe pulmonary hypertension.
[2017-09-30] MEDS ORDERED: Simethicone 80mg tab ORAL PRN (14:15)
--- NOTE | 2017-09-30 14:17 | GI Initial Consult Note ---
History of Present Illness General Date patient seen: Sep 30, 2017 Time patient seen: 14:14 Reason for Hospitalization: Chest Pain Referring physician: Dr. Cherry Reason for Consultation: ABDOMINAL PAIN Present Illness HPI Patient is a 62-year-old male who presented after increased epigastric pain. The patient reports having prior history of cirrhosis. He reports having prior history of hepatitis C he had gradual onset of symptoms. Patient was noted to have episodes of vomiting he reports having abdominal pain. Patient states he is followed by Dr. Shahid Cherry. GI consulted for abdominal pain. Pt p/w epigastric abdominal pain. Abdomen with mild distention, tympanic. Patient states he is passing little gas. Last BM was yesterday morning. Pt stated this was not his first episode. Stated he had an episode of emesis last night, denied coffee grounds and hematemesis. Denies diarrhea. Hx of Hep C s/p treatment now negative, Cirrhosis, HTN, CHF, Pacemaker. Pt states he drinks beer and uses marijuana occasional. Denies tobacco use. Last colonoscopy 2 years ago. Home Meds Reported Medications OXYCODONE HCl* (ROXICODONE*) 15 Mg Tablet, 15 MG ORAL Q6H PRN for For Pain, TAB 09/29/17 Ondansetron* (ZOFRAN*) 4 Mg Tablet, 4 MG ORAL Q6H PRN for Nausea & Vomiting, TAB 09/29/17 Diphenhydramine Hcl* (DIPHENHYDRAMINE HCL*) 25 Mg Capsule, 25 MG ORAL Q6H PRN for Itching, #30 CAP 0 Refills 09/29/17 Tizanidine Hcl* (ZANAFLEX*) 4 Mg Tablet, 4 MG ORAL THREE TIMES A DAY, #90 TAB 0 Refills 09/29/17 Sotalol Hcl (SOTALOL*) 80 Mg Tablet, 80 MG ORAL BID, #30 TAB 0 Refills 09/29/17 Digoxin* (DIGOXIN*) 125 Mcg Tablet, 125 MCG ORAL DAILY, TAB 09/29/17 Carvedilol Phosphate (COREG CR) 10 Mg Cpmp.24hr, 3.15 MG ORAL DAILY, CAP 09/29/17 Ascorbic Acid* (VITAMIN C*) 500 Mg Tablet, 500 MG ORAL DAILY, #30 TAB 0 Refills 09/29/17 Ferrous Sulfate* (FERROUS SULFATE*) 325 Mg Tablet, 325 MG ORAL DAILY, #30 TAB 0 Refills 09/29/17 Spironolactone* (ALDACTONE*) 50 Mg Tablet, 50 MG ORAL DAILY, TAB 09/15/17 Pantoprazole* (PROTONIX*) 40 Mg Tablet.dr, 40 MG ORAL DAILY, TAB 09/15/17 Gabapentin* (GABAPENTIN*) 100 Mg Capsule, 100 MG ORAL THREE TIMES A DAY, CAP 09/15/17 Docusate Sodium* (COLACE*) 100 Mg Capsule, 100 MG ORAL BID, CAP 09/15/17 Lisinopril* (LISINOPRIL*) 10 Mg Tablet, 10 MG ORAL DAILY, TAB 09/08/17 Rivaroxaban (XARELTO*) 10 Mg Tablet, 20 MG ORAL DAILY, TAB 0 Refills 09/08/17 Carvedilol* (CARVEDILOL*) 6.25 Mg Tablet, 6.25 MG ORAL EVERY 12 HOURS, TAB 09/08/17 Multivitamins* (MULTIVITAMINS*) 1 Each Tablet, 2 TAB ORAL DAILY, TAB 0 Refills 04/09/16 Furosemide* (LASIX*) 40 Mg Tablet, 40 MG ORAL TWICE A DAY, TAB 0 Refills 08/09/14 Zolpidem Tartrate* (ZOLPIDEM TARTRATE*) 5 Mg Tablet, 10 MG ORAL BEDTIME PRN for Insomnia, TAB 0 Refills 07/28/14 Spironolactone* (SPIRONOLACTONE*) 100 Mg Tablet, 50 MG ORAL DAILY, TAB 07/28/14 Levothyroxine Sodium* (LEVOTHYROXINE SODIUM*) 88 Mcg Tablet, 88 MCG ORAL DAILY, TAB Take in the morning on an empty stomach, at least 30 minutes before food. 07/28/14 Med list reviewed/reconciled: Yes Allergies: Coded Allergies: HYDROMORPHONE (Verified Allergy, Unknown, 12/28/10) Patient History History Provided By: Patient, Medical Record Social History: Reports: alcohol use, drug use Review of Systems All Other Systems: negative except mentioned in HPI Physical Exam Vital Signs Date Time Temp Pulse Resp B/P (MAP) Pulse Ox O2 Delivery O2 Flow Rate FiO2 09/29/17 13:28 98.3 84 18 113/79 95 Room Air 98.2 09/30/17 07:25 21 Sp02 EP Interpretation: reviewed, normal Labs Laboratory Tests Test 09/29/17 16:45 09/29/17 20:10 09/30/17 09:05 Urine Color Brown Urine Appearance Clear Urine pH 5 (4.5-8.0) Urine Specific [place] 1.025 (1.005-1.035) Urine Protein 3+ (NEGATIVE) H Urine Glucose (UA) Negative (NEGATIVE) Urine Ketones Negative (NEGATIVE) Urine Occult Blood Negative (NEGATIVE) Urine Nitrite Negative (NEGATIVE) Urine Bilirubin 1+ (NEGATIVE) H Urine Ictotest Negative Urine Urobilinogen 4 MG/DL (0.0-1.0) H Urine Leukocyte Esterase 1+ (NEGATIVE) H Urine RBC 2-4 /HPF (0 - 0) H Urine WBC 0-2 /HPF (0 - 0) Urine Squamous Epithelial Cells None /LPF (NONE/OCC) Urine Amorphous Sediment Few /LPF (NONE) H Urine Bacteria Few /HPF (NONE) Urine Opiates Screen Positive (NEGATIVE) H Urine Barbiturates Screen Negative (NEGATIVE) Phencyclidine (PCP) Screen Negative (NEGATIVE) Urine Amphetamines Screen Negative (NEGATIVE) Urine Benzodiazepines Screen Negative (NEGATIVE) Urine Cocaine Screen Negative (NEGATIVE) Urine Marijuana (THC) Screen Positive (NEGATIVE) H Troponin I 0.024 ng/mL (0.000-0.056) 0.011 ng/mL (0.000-0.056) White Blood Count 3.9 K/UL (4.8-10.8) L Red Blood Count 3.92 M/UL (4.70-6.10) L Hemoglobin 10.8 G/DL (14.2-18.0) L Hematocrit 34.5 % (42.0-52.0) L Mean Corpuscular Volume 88 FL (80-99) Mean Corpuscular Hemoglobin 27.7 PG (27.0-31.0) Mean Corpuscular Hemoglobin Concent 31.4 G/DL (32.0-36.0) L Red Cell Distribution Width 21.7 % (11.6-14.8) H Platelet Count 176 K/UL (150-450) Mean Platelet Volume 6.5 FL (6.5-10.1) Neutrophils (%) (Auto) 62.6 % (45.0-75.0) Lymphocytes (%) (Auto) 22.8 % (20.0-45.0) Monocytes (%) (Auto) 11.5 % (1.0-10.0) H Eosinophils (%) (Auto) 1.7 % (0.0-3.0) Basophils (%) (Auto) 1.5 % (0.0-2.0) Prothrombin Time 18.1 SEC (9.30-11.50) H Prothromb Time International Ratio 1.7 (0.9-1.1) H Activated Partial Thromboplast Time 29 SEC (23-33) C-Reactive Protein, Quantitative 1.5 mg/dL (0.00-0.90) H Triglycerides Level 65 MG/DL (30-150) Cholesterol Level 143 MG/DL (< 200) LDL Cholesterol 122 mg/dL (<100) H HDL Cholesterol 23 MG/DL (40-60) L Cholesterol/HDL Ratio 6.2 (3.3-4.4) H Thyroid Stimulating Hormone (TSH) 17.971 uiU/mL (0.358-3.740) General Appearance: well appearing, no apparent distress, alert Head: normocephalic EENT: PERRL/EOMI, normal ENT inspection Neck: supple Respiratory: normal breath sounds, no respiratory distress Cardiovascular: normal rate Gastrointestinal: normal inspection, non tender, soft, normal bowel sounds, distended Rectal: deferred Genitourinary: deferred Musculoskeletal: normal inspection, back normal Neurologic: normal inspection, alert, oriented x3, responsive Psychiatric: normal inspection, judgement/insight normal, memory normal Skin: normal inspection, normal color, no rash, warm/dry, palpation normal, well hydrated Lymphatic: normal inspection, no adenopathy Current Medications Current Medications Medications (Trade) Dose Ordered Sig/Allyn Route PRN Reason Start Time Stop Time Status Last Admin Dose Admin Acetaminophen (Tylenol) 650 mg Q4H PRN ORAL FEVER 09/29/17 19:45 10/29/17 19:44 Albuterol/ Ipratropium (Albuterol/ Ipratropium) 3 ml EVERY 4 HOURS PRN HHN Shortness of Breath 09/29/17 19:45 18 19:44 Aspirin (ASA) 162 mg DAILY ORAL 09/30/17 09:00 10/30/17 08:59 09/30/17 09:43 Carvedilol (Coreg) 6.25 mg EVERY 12 HOURS ORAL 09/29/17 21:00 10/29/17 20:59 09/29/17 20:52 Digoxin (Lanoxin) 0.125 mg DAILY ORAL 09/30/17 09:00 10/30/17 08:59 09/30/17 09:42 Diltiazem HCl (Cardizem) 10 mg EVERY HOUR PRN IV heart rate more than 120, 09/29/17 19:45 10/29/17 19:44 Enalaprilat (Vasotec) 2.5 mg EVERY 6 HOURS PRN IV sbp more than 160 09/29/17 19:45 10/29/17 19:44 Gabapentin (Neurontin) 100 mg THREE TIMES A DAY ORAL 09/30/17 09:00 10/30/17 08:59 09/30/17 13:44 Levothyroxine Sodium (Synthroid) 88 mcg ACBREAKFAST ORAL 10/01/17 06:30 10/30/17 08:59 Lisinopril (Zestril) 10 mg DAILY ORAL 09/30/17 09:00 10/30/17 08:59 09/30/17 09:42 Nitroglycerin (Ntg) 0.4 mg Every 5 Minutes PRN SL Prn Chest Pain 09/29/17 19:45 10/29/17 19:44 Ondansetron HCl (Zofran) 4 mg Q6H PRN IVP Nausea & Vomiting 09/29/17 19:45 10/29/17 19:44 Oxycodone HCl (Roxicodone) 10 mg BID PRN ORAL severe pain 09/30/17 09:00 10/07/17 08:59 09/30/17 09:48 Polyethylene Glycol (Miralax) 17 gm DAILYPRN PRN ORAL Constipation 09/29/17 19:45 10/29/17 19:44 Rivaroxaban (Xarelto) 20 mg DAILY ORAL 09/30/17 09:00 10/30/17 08:59 09/30/17 09:41 Sotalol HCl (Betapace) 80 mg Q12HR ORAL 09/29/17 21:00 10/29/17 20:59 09/29/17 20:53 Temazepam (Restoril) 15 mg HSPRN PRN ORAL Insomnia 09/29/17 19:45 10/06/17 19:44 09/29/17 23:27 Tizanidine HCl (Zanaflex) 4 mg THREE TIMES A DAY ORAL 09/30/17 09:00 10/30/17 08:59 09/30/17 13:44 GI: Plan Problems: (1) Right-sided heart failure (2) EF < 20% (3) Hypothyroidism (4) Abdominal pain (5) Emesis Plan hx of Hep C in 2014 s/p tx >> hep panel redrawn in 2016 was negative s/p colonoscopy with one polyp 06/26/16 No evidence of cirrhosis symptomatic treatment simethicone x 1/prn >> KUB if distention does not improve by tomorrow Lasix Aldactone adv low sodium diet ppi pain mgmt fu labs Discussed with Dr. Ryan. Thank you for this patient referral, we will follow. Chanel Bird N.P. Sep 30, 2017 14:17
[2017-09-30] MEDS ORDERED: Simethicone 80mg tab ORAL ONE (14:30)
--- NOTE | 2017-09-30 14:36 | Consultation ---
Consult Note Consult Note [id number] Harley Marcos MD Sep 30, 2017 14:36
[2017-09-30 16:00] VITALS: BP 97/65
--- NOTE | 2017-09-30 16:35 | Cardiac Electrophysiology PN ---
Subjective Subjective Cardiology consult dictated [id number] Objective Last 24 Hour Vital Signs Date Time Temp Pulse Resp B/P (MAP) Pulse Ox O2 Delivery O2 Flow Rate FiO2 09/30/17 16:00 97.2 76 18 97/65 100 Room Air 97.2 09/30/17 12:00 96.1 75 20 95/52 98 Room Air 96.1 09/30/17 11:39 75 09/30/17 09:42 100/70 09/30/17 09:42 77 09/30/17 09:00 79 100/70 09/30/17 09:00 79 100/70 09/30/17 08:00 97.2 79 18 100/70 100 Room Air 97.2 09/30/17 07:30 77 09/30/17 07:25 76 18 Room Air 21 09/30/17 04:00 96.8 75 21 103/77 98 Room Air 96.8 09/30/17 04:00 75 09/30/17 00:00 97.0 76 20 104/71 94 Room Air 97.0 09/30/17 00:00 75 09/29/17 20:53 93 124/72 09/29/17 20:52 93 124/72 09/29/17 20:00 78 Intake and Output 09/29/17 09/30/17 19:00 07:00 Intake Total 0 ml 200 ml Balance 0 ml 200 ml Intake Oral 0 ml 200 ml Laboratory Tests Test 09/29/17 16:45 09/29/17 20:10 09/30/17 09:05 Urine Color Brown Urine Appearance Clear Urine pH 5 (4.5-8.0) Urine Specific [place] 1.025 (1.005-1.035) Urine Protein 3+ (NEGATIVE) H Urine Glucose (UA) Negative (NEGATIVE) Urine Ketones Negative (NEGATIVE) Urine Occult Blood Negative (NEGATIVE) Urine Nitrite Negative (NEGATIVE) Urine Bilirubin 1+ (NEGATIVE) H Urine Ictotest Negative Urine Urobilinogen 4 MG/DL (0.0-1.0) H Urine Leukocyte Esterase 1+ (NEGATIVE) H Urine RBC 2-4 /HPF (0 - 0) H Urine WBC 0-2 /HPF (0 - 0) Urine Squamous Epithelial Cells None /LPF (NONE/OCC) Urine Amorphous Sediment Few /LPF (NONE) H Urine Bacteria Few /HPF (NONE) Urine Opiates Screen Positive (NEGATIVE) H Urine Barbiturates Screen Negative (NEGATIVE) Phencyclidine (PCP) Screen Negative (NEGATIVE) Urine Amphetamines Screen Negative (NEGATIVE) Urine Benzodiazepines Screen Negative (NEGATIVE) Urine Cocaine Screen Negative (NEGATIVE) Urine Marijuana (THC) Screen Positive (NEGATIVE) H Troponin I 0.024 ng/mL (0.000-0.056) 0.011 ng/mL (0.000-0.056) White Blood Count 3.9 K/UL (4.8-10.8) L Red Blood Count 3.92 M/UL (4.70-6.10) L Hemoglobin 10.8 G/DL (14.2-18.0) L Hematocrit 34.5 % (42.0-52.0) L Mean Corpuscular Volume 88 FL (80-99) Mean Corpuscular Hemoglobin 27.7 PG (27.0-31.0) Mean Corpuscular Hemoglobin Concent 31.4 G/DL (32.0-36.0) L Red Cell Distribution Width 21.7 % (11.6-14.8) H Platelet Count 176 K/UL (150-450) Mean Platelet Volume 6.5 FL (6.5-10.1) Neutrophils (%) (Auto) 62.6 % (45.0-75.0) Lymphocytes (%) (Auto) 22.8 % (20.0-45.0) Monocytes (%) (Auto) 11.5 % (1.0-10.0) H Eosinophils (%) (Auto) 1.7 % (0.0-3.0) Basophils (%) (Auto) 1.5 % (0.0-2.0) Prothrombin Time 18.1 SEC (9.30-11.50) H Prothromb Time International Ratio 1.7 (0.9-1.1) H Activated Partial Thromboplast Time 29 SEC (23-33) C-Reactive Protein, Quantitative 1.5 mg/dL (0.00-0.90) H Triglycerides Level 65 MG/DL (30-150) Cholesterol Level 143 MG/DL (< 200) LDL Cholesterol 122 mg/dL (<100) H HDL Cholesterol 23 MG/DL (40-60) L Cholesterol/HDL Ratio 6.2 (3.3-4.4) H Thyroid Stimulating Hormone (TSH) 17.971 uiU/mL (0.358-3.740) HIV (1&2) Antibody Rapid Negative (NEGATIVE) Rc Zhang MD Sep 30, 2017 16:35
--- NOTE | 2017-09-30 16:45 | Consultation ---
DATE OF CONSULTATION: 09/30/2017 INFECTIOUS DISEASES CONSULTATION CONSULTING PHYSICIAN: Harley Marcos M.D. REFERRING PHYSICIAN: Shahid Cherry D.O. REASON FOR CONSULTATION: Evaluation of patient for pneumonia, antibiotic management. HISTORY OF PRESENT ILLNESS: The patient is a 62-year-old male with multiple medical problems as listed below who came to the hospital with chief complaint of weakness, abdominal bloating, and chest pain. The patient also been complaining of cough times few days with sputum production. Infectious Diseases consultation has been requested for evaluation of the patient and antibiotic management. PAST MEDICAL HISTORY: 1. Hypothyroidism. 2. CAD. 3. CHF. 4. Status post pacemaker. 5. History of hepatitis C status post treatment. 6. History of cirrhosis. 7. Ascites. MEDICATIONS: Currently off of antibiotics. ALLERGIES: HYDROMORPHONE. FAMILY HISTORY: Not contributing. PHYSICAL EXAMINATION: VITAL SIGNS: Temperature 96, blood pressure 95/50, pulse 86, respiratory rate 18. HEENT: No pale conjunctivae. No icterus. NECK: No lymphadenopathy. CHEST: Coarse breathing sounds. No wheezes. HEART: S1 and S2. ABDOMEN: Soft. Mildly distended; however no tenderness. EXTREMITIES: No cyanosis. NEUROLOGIC: Awake and alert. LABORATORY AND DIAGNOSTIC DATA: White blood cells 3.9, hemoglobin 10.8, platelets 176. UA unremarkable. Urine culture, back in August was growing Klebsiella and Enterococcus. Chest x-ray, cardiomegaly, no acute process. Echo shows EF of 15 to 20%. ASSESSMENT: The patient is a 62-year-old male with: 1. /community-acquired pneumonia. 2. Leukopenia due to probably cirrhosis. 3. History of hepatitis C status post treatment. 4. Congestive heart failure with ejection fraction of 20%. 5. Chest pain. 6. I will follow with Cardiology. PLAN: 1. We will stat the patient on Levaquin day #06/20. 2. Monitor CBC. 3. Monitor BMP. 4. Monitor cultures (blood, sputum). 5. Monitor chest x-ray. 6. Evaluation of ascites and further workup as per primary and rest of consultants, no evidence of peritonitis based on the exam. 7. Based on the patient's clinical course and labs, we will do further recommendations. Harley Marcos M.D. DR: Hao JOB#: [id number] CC:
[2017-09-30 18:15] LABS: ANION GAP 9 mmol/L (5-15); BLOOD UREA NITROGEN 37 mg/dL (7-18); CALCIUM 8.4 MG/DL (8.5-10.1); CARBON DIOXIDE 23 MMOL/L (21-32); CHLORIDE 102 MMOL/L (98-107); CREATININE 1.7 MG/DL (0.55-1.30); POTASSIUM 4.6 MMOL/L (3.5-5.1); SODIUM 133 MMOL/L (136-145)
--- NOTE | 2017-09-30 18:15 | Consultation ---
DATE OF CONSULTATION: 09/30/2017 CARDIAC ELECTROPHYSIOLOGY CONSULTATION CONSULTING PHYSICIAN: Rc Zhang M.D. REFERRING PHYSICIAN: Shahid Cherry M.D. REASON FOR CONSULTATION: Management of congestive heart failure and the patient's defibrillator. HISTORY OF PRESENT ILLNESS: The patient is a 62-year-old gentleman with history of severe cardiomyopathy and congestive heart failure as well as history of defibrillator implantation by me as well as ICD generator change was also recently at [facility]. The patient is scheduled for upgrading his ICD to biventricular defibrillator just next week at [facility] by me. However I received a phone call from the patient as the patient is having increasing shortness of breath, abdominal pain, and lower extremity edema. The patient was sent to the emergency room. At the time of my evaluation, patient is feeling better with diuresis. REVIEW OF SYSTEMS: Review of Systems was performed and was negative other than what was mentioned in the history of present illness. PAST MEDICAL HISTORY: 1. Severe cardiomyopathy ejection fraction of 15 to 20%. 2. Paroxysmal atrial fibrillation with prior two ablation. 3. Status post [employer] defibrillator implantation with dysfunction of right ventricular lead. 4. Hepatitis C and ascites. 5. Right-sided heart failure. 6. Renal failure. FAMILY HISTORY: Noncontributory. SOCIAL HISTORY: Denies smoking or drinking alcohol. PHYSICAL EXAMINATION: VITAL SIGNS: Blood pressure is 100/70, pulse 75, respirations 18, and temperature 97.2 degrees. HEAD AND NECK: Shows no JVD. LUNGS: Clear. CARDIOVASCULAR: Regular S1 and S2 with systolic murmur. ABDOMEN: Soft with ascites. EXTREMITIES: A 1+ pitting edema. LABORATORY AND DIAGNOSTIC DATA: Labs show white count 3.9, hematocrit 10.8, hematocrit 34.5, and platelet count of 176. Sodium is 135, potassium 4.5, BUN of 28, creatinine 1.5, and glucose 91. Troponin negative x3. ASSESSMENT AND PLAN: 1. Exacerbation of congestive heart failure. The patient's repeat echocardiogram showed ejection fraction still around 20%. Continue Coreg 6.25 mg b.i.d., Lasix 40 mg IV b.i.d., lisinopril 10 mg daily, and Aldactone 50 mg daily. 2. Paroxysmal atrial fibrillation with two prior ablations at [facility] on Coreg and Xarelto 20 mg daily. 3. Status post [employer] ICD implantation with dysfunctional right ventricular lead. The patient is scheduled for new right ventricular lead as well as upgrade to biventricular defibrillator as an outpatient and is mostly ventricularly paced causing desynchronization. 4. Hepatitis C and ascites, paracentesis is pending. Further evaluation by GI and ID. 5. Renal failure with creatinine of 1.5. Thank you very much, Dr. Cherry, for allowing me to participate in the care of this patient. Please do not hesitate to contact me if you have any questions regarding my evaluation. Rc Zhang M.D. DR: Akilah JOB#: [id number] CC:
[2017-09-30 18:21] LABS: CREATINE KINASE 66 U/L (26-308)
--- NOTE | 2017-09-30 19:00 | Consultation ---
DATE OF CONSULTATION: 09/30/2017 DATE OF ADMISSION: 09/30/2017 REFERRING PHYSICIAN: Shahid Cherry D.O. REASON FOR CONSULTATION: 1. Acute kidney injury. 2. CKD, stage 3- Cr 1.5 3. CHF/Volume Overload HISTORY OF PRESENT ILLNESS: The patient is a pleasant 62-year-old gentleman who is being admitted for further evaluation and care of some chest pain and shortness of breath. The patient at home had been on lisinopril, Aldactone, and Toradol. The patient started complaining of some chest pain along with some abdominal pain. Cardiology has been consulted. It was noted the patient had a creatinine of 1.5. The patient says he was unaware of any renal dysfunction prior to this administration. His main complaint upon presentation was chest pain and shortness of breath on a pain scale of 5/10. He also had some abdominal distention and left flank pain. PAST MEDICAL HISTORY: 1. Cirrhosis. 2. Congestive heart failure. 3. Hepatitis C. 4. Right-sided heart failure. PAST SURGICAL HISTORY: Implantable cardioverter defibrillator ICD. CURRENT MEDICATIONS: Reviewed on medicine reconciliation list. ALLERGIES: Hydromorphone. FAMILY HISTORY: Positive for hypertension. REVIEW OF SYSTEMS: NEUROLOGIC: The patient denies headache, change in vision, syncope or presyncopal episodes. CARDIOVASCULAR: The patient was having chest pain and pressure. No palpitations. PULMONARY: Mild shortness of breath. Nonproductive cough. GASTROINTESTINAL/GENITOURINARY: No nausea, vomiting, diarrhea. ENDOCRINOLOGY: No night sweats, fevers, or chills. MUSCULOSKELETAL: The patient is feeling weak, tired, and fatigued. PHYSICAL EXAMINATION: VITAL SIGNS: Blood pressure 97/65, pulse 76, temperature 97.2, 100% oxygen saturation on room air. GENERAL: The patient is awake, alert, not otherwise distress. HEENT: Extraocular muscles intact. NECK: No lymphadenopathy noted. CARDIOVASCULAR: S1 and S2. Soft S3. Regular rate. No rubs or gallops. PULMONARY: Mild bilateral basilar rales. Fair air movement in all lung shin with upper airway rhonchi, ABDOMINAL: Mildly distended. Nontender with fair bowel sounds. EXTREMITIES: No edema with fair pedal pulses. SKIN: Warm to touch. LABORATORY AND DIAGNOSTIC DATA: Dated September 29, 2017, sodium 135, potassium 4.5, creatinine 1.5. Hemoglobin dated September 30, 2017 hemoglobin 10.8, platelet count 176. ASSESSMENT AND PLAN: 1. Acute kidney injury on possible CKD stage 3 at this time. Creatinine yesterday was 1.5. Acute kidney injury with multifactorial ATN in nature secondary to cardiorenal from CHF and underlining current hypotension while patient on Aldactone, lisinopril, and Toradol. Recommend discontinuation of Toradol and avoidance of hypotensive episodes. The patient currently receiving Lasix therapy. We will order renal ultrasound to rule out the possibility of obstruction to maximize and optimize renal function at this time. I would recommend holding antihypertensives if systolic blood pressure less than 100 and avoidance of NSAIDs. Okay for the time being to continue Lasix and lisinopril. Aldactone and Toradol have been discontinued. Avoid any nephrotoxins if possible during current hospitalization. 2. Hypothyroidism. TSH 17.9. Defer management to primary care physician. 3. CHF with chest pain. At this time cardiology Dr. Zhang has been consulted. Defer management to expertise. 4. Shortness of breath. The patient on Lasix and being evaluated by Pulmonary. Let me take this opportunity to thank, Dr. Cherry, for allowing us to assist in the care of this patient during this hospitalization. I appreciate his confidence in my nephrological service. Sherwin Hawkins MD DR: Zainab JOB#: [id number] CC: CAMPBELL
[2017-09-30 20:00] VITALS: BP 95/62
--- NOTE | 2017-09-30 20:15 | History and Physical Report ---
DATE OF ADMISSION: 09/29/2017 TIME SEEN: 2 p.m. CONSULTANTS: 1. Andrzej Chavarria M.D. 2. Rc Zhang M.D. 3. Sachi Carson M.D. 4. Beto Ryan M.D. CHIEF COMPLAINT: Acute chest pain, shortness of breath, abdominal pain. BRIEF HISTORY: This is a 62-year-old male who lives at home with history of cirrhosis of liver and CHF, presents to [place] last night with two days of increasing substernal chest pain, sharp, but no radiation. The patient is little bit short of breath and also has abdominal pain and swelling. The patient came to the ER, diagnosed with the above, abdominal distention, as well as ACS and admitted to telemetry for further care. Currently, slight short of breath, in bed, slight nausea. No vomiting. Complained of abdominal pain, 7/10. No complaints. REVIEW OF SYSTEMS: Slight chest pain. Slight shortness of breath. Slight nausea. No vomiting or diarrhea. PAST MEDICAL HISTORY: Cirrhosis, CHF, hypertension, and ascites. PAST SURGICAL HISTORY: None. MEDICATIONS: Include Synthroid, Lanoxin, Neurontin, Zestril, Xarelto, Zanaflex, aspirin, Roxicodone, Coreg, , albuterol, Tylenol, Zofran, Cardizem, Bystolic, Restoril. ALLERGIES: Dilaudid. SOCIAL HISTORY: No smoking. No alcohol. No intravenous drug abuse. FAMILY HISTORY: Noncontributory. PHYSICAL EXAMINATION: GENERAL: Slightly anxious in bed, oriented x3, does have abdominal pain. VITAL SIGNS: Temperature is 96, pulse 75, respirations 20, blood pressure 95/52. CARDIOVASCULAR: No murmur. LUNGS: Poor air exchange. ABDOMINAL: Bowel sounds positive. Distended. Soft. No guarding. No rigidity or rebound. Slightly distended. EXTREMITIES: Show no cyanosis, clubbing, or edema. LABORATORY AND DIAGNOSTIC DATA: Labs at this time show white count 3.9, H and H 10/34, platelets are 176. BMP shows sodium 135, BUN and creatinine 20/1.5. INR is 1.7. Urine tox positive for opiates and marijuana. Urinalysis, 1+ bilirubin and 1+ leukocyte esterase. ASSESSMENT: 1. Acute coronary syndrome. 2. Shortness of breath. 3. Abdominal pain. 4. Cirrhosis of the liver. 5. Abdominal distention. 6. Renal insufficiency. 7. Urinary tract infection. 8. Congestive heart failure. 9. Hypertension. PLAN: 1. Continue previous medications. 2. Pain control. 3. O2 and pulmonary treatment. 4. Antibiotics as per Infectious Disease. 5. OT, PT, and dietary evaluation. 6. CBC and BMP in the morning. 7. We will continue to follow this patient medically. 8. Dr. Marcos, Dr. Blanton, 02:33 consultants too. Shahid Cherry D.O. DR: BECKY JOB#: [id number] CC:
[2017-10-01] VITALS: BP 93/60
[2017-10-01 03:42] VITALS: BP 103/69
[2017-10-01] MEDS: oxyCODONE 5mg IR tab ORAL PRN ×2 (06:15→17:18)
[2017-10-01 07:58] VITALS: BP 99/55
[2017-10-01 08:28] LABS: BASOPHILS % (AUTO) 1.6 % (0.0-2.0); EOSINOPHILS % (AUTO) 2.7 % (0.0-3.0); HEMATOCRIT 32.3 % (42.0-52.0); LYMPHOCYTES % (AUTO) 13.4 % (20.0-45.0); MEAN CORPUSCULAR VOLUME 89 FL (80-99); MONOCYTES % (AUTO) 9.9 % (1.0-10.0); NEUTROPHILS % (AUTO) 72.4 % (45.0-75.0); PLATELET COUNT 161 K/UL (150-450); RED BLOOD COUNT 3.62 M/UL (4.70-6.10); RED CELL DISTRIBUTION WIDTH 21.2 % (11.6-14.8); WHITE BLOOD COUNT 4.7 K/UL (4.8-10.8)
--- NOTE | 2017-10-01 08:38 | Diagnostic Imaging Report ---
Indication: Acute renal failure Technique: Grayscale and duplex images of the kidneys, retroperitoneum, and bladder were obtained. Comparison: none Findings: Right kidney measures 10.1 cm in length. Left kidney measures 11 cm in length. Both kidneys demonstrate normal echogenicity. No hydronephrosis. No focal abnormality. Normal inferior vena cava. Bladder is normal. Incidentally noted is right right lower quadrant ascites fluid Impression: Normal kidneys. Negative for hydronephrosis Ascites fluid incidentally noted, also previously reported.
[2017-10-01 08:46] LABS: ANION GAP 6 mmol/L (5-15); BLOOD UREA NITROGEN 35 mg/dL (7-18); CALCIUM 8.3 MG/DL (8.5-10.1); CARBON DIOXIDE 28 MMOL/L (21-32); CHLORIDE 102 MMOL/L (98-107); CREATININE 1.6 MG/DL (0.55-1.30); POTASSIUM 4.3 MMOL/L (3.5-5.1); SODIUM 136 MMOL/L (136-145)
--- NOTE | 2017-10-01 08:46 | General Progress Note ---
Assessment/Plan Assessment/Plan (1) Lumbar degenerative disc disease (2) Lumbar spondylosis (3) Lumbar radiculopathy (4) Liver Cirrhosis (5) Abdominal pain Pt will be continued on Oxycodone. Pt was d/w Dr. Carson and he concurred. Subjective Date patient seen: Oct 01, 2017 Time patient seen: 07:45 - am Allergies: Coded Allergies: HYDROMORPHONE (Verified Allergy, Unknown, 12/28/10) Subjective Constitutional: Reports: weakness, Denies: chills, diaphoresis, fever, malaise , no symptoms, other HEENT: Denies: blurred vision, double vision, ear discharge, ear pain, eye pain , mouth pain, mouth swelling, no symptoms, nose congestion, nose pain, other, tearing, throat pain, throat swelling Cardiovascular: Denies: irregular heart rate, lightheadedness, no symptoms, other, palpitations, syncope Respiratory: Denies: SOB at rest, SOB with excertion, cough, no symptoms, orthopnea, other, shortness of breath, sputum, stridor, wheezing Gastrointestinal/Abdominal: Reports: abdominal pain, Denies: abdomen distended , black stools, blood in stool, constipated, diarrhea, difficulty swallowing, nausea, no symptoms, other, poor appetite, poor fluid intake, rectal bleeding, tarry stools, vomiting Genitourinary: Denies: burning, discharge, flank pain, frequency, hematuria, incontinence, no symptoms, other, pain, urgency Neurologic/Psychiatric: Reports: weakness, Denies: anxiety, depressed, emotional problems, headache, no symptoms, numbness, other, paresthesia, pre- existing deficit, seizure, tingling, tremors Endocrine: Denies: excessive sweating, flushing, increased hunger, increased thirst, increased urine, intolerance to cold, intolerance to heat, no symptoms, other, unexplained weight gain, unexplained weight loss Hematologic/Lymphatic: Denies: anemia, easy bleeding, easy bruising, no symptoms, other Subjective Patient is in bed pain is at a moderate level and tolerated on the Oxycodone. No new complaints. Objective Last 24 Hour Vital Signs Date Time Temp Pulse Resp B/P (MAP) Pulse Ox O2 Delivery O2 Flow Rate FiO2 10/01/17 07:58 97.0 78 20 99/55 98 97.0 10/01/17 04:00 75 10/01/17 03:42 97.2 75 20 103/69 98 97.2 10/01/17 00:00 75 10/01/17 00:00 98.0 74 16 93/60 98 98.0 10/01/17 00:00 98.0 74 20 93/60 98 98.0 09/30/17 21:57 76 94/71 09/30/17 21:00 72 92/66 09/30/17 20:00 75 09/30/17 20:00 97.0 65 16 95/62 100 97.0 09/30/17 19:30 68 18 Room Air 21 09/30/17 16:00 97.2 76 18 97/65 100 Room Air 97.2 09/30/17 15:20 75 09/30/17 12:00 96.1 75 20 95/52 98 Room Air 96.1 09/30/17 11:39 75 09/30/17 09:42 100/70 09/30/17 09:42 77 09/30/17 09:00 79 100/70 09/30/17 09:00 79 100/70 Intake and Output 09/30/17 10/01/17 19:00 07:00 Intake Total 480 ml Output Total 500 ml 800 ml Balance -20 ml -800 ml Intake Oral 480 ml Output Urine Total 500 ml 800 ml Laboratory Tests 09/30/17 09:05: White Blood Count 3.9L, Red Blood Count 3.92L, Hemoglobin 10.8L, Hematocrit 34.5L, Mean Corpuscular Volume 88, Mean Corpuscular Hemoglobin 27.7, Mean Corpuscular Hemoglobin Concent 31.4L, Red Cell Distribution Width 21.7H, Platelet Count 176, Mean Platelet Volume 6.5, Neutrophils (%) (Auto) 62.6, Lymphocytes (%) (Auto) 22.8, Monocytes (%) (Auto) 11.5H, Eosinophils (%) (Auto) 1.7, Basophils (%) (Auto) 1.5, Prothrombin Time 18.1H, Prothromb Time International Ratio 1.7H, Activated Partial Thromboplast Time 29, Troponin I 0.011, C-Reactive Protein, Quantitative 1.5H, Triglycerides Level 65, Cholesterol Level 143, LDL Cholesterol 122H, HDL Cholesterol 23L, Cholesterol/ HDL Ratio 6.2H, Thyroid Stimulating Hormone (TSH) 17.971H, Digoxin Level < 0.2L , HIV (1&2) Antibody Rapid Negative 09/30/17 17:45: Sodium Level 133L, Potassium Level 4.6, Chloride Level 102, Carbon Dioxide Level 23, Anion Gap 9, Blood Urea Nitrogen 37H, Creatinine 1.7H, Estimat Glomerular Filtration Rate 49.4, Glucose Level 121H, Calcium Level 8.4L, Total Creatine Kinase 66 10/01/17 06:49: White Blood Count 4.7L, Red Blood Count 3.62L, Hemoglobin 10.0L, Hematocrit 32.3L, Mean Corpuscular Volume 89, Mean Corpuscular Hemoglobin 27.5, Mean Corpuscular Hemoglobin Concent 30.8L, Red Cell Distribution Width 21.2H, Platelet Count 161, Mean Platelet Volume 6.3L, Neutrophils (%) (Auto) 72.4, Lymphocytes (%) (Auto) 13.4L, Monocytes (%) (Auto) 9.9, Eosinophils (%) (Auto) 2.7, Basophils (%) (Auto) 1.6, Troponin I [Pending], Sodium Level [Pending], Potassium Level [Pending], Chloride Level [Pending], Carbon Dioxide Level [ Pending], Blood Urea Nitrogen [Pending], Creatinine [Pending], Estimat Glomerular Filtration Rate [Pending], Glucose Level [Pending], Calcium Level [ Pending] Height (Feet): 5 Height (Inches): 9.00 Weight (Pounds): 163 Objective General Appearance: no apparent distress, alert EENT: normal ENT inspection, TMs normal Neck: normal alignment, supple Cardiovascular: normal rate, regular rhythm Respiratory/Chest: lungs clear, normal breath sounds Abdomen: tender, distended Extremities: non-tender Edema: edema noted in b/l LE Neurologic: alert, oriented x 3 Skin: warm/dry SARANYA GRAY Oct 01, 2017 08:46
--- NOTE | 2017-10-01 08:47 | Nephrology Progress Note ---
Assessment/Plan Assessment/Plan 1. ARIS on CKD 3A- Cr yesterday at 1.7. AM labs are currently pending - ATN multifactorial in nature ( ischemic ATN from hypotension/perfusion, cardiorenal, low EF 15%, NSAIDs, aldactone/MARINA-I) - Renal US completed and results pending - NSAID (Toradal) and aldactone held - hold parameter placed on Lisinopril as patient hypotensive - Avoid nephrotoxins 2. Hypotension- hold MARINA-I if SBP <105 3. ACS/Chest Pain- management per cardiology 4. SOB- resolved, followed by pulmonary. On lasix and antibiotics. Monitor BP and Cr levels 5. Hypothyroid- TSH 17, on synthroid 6. CHD/Pulm HTN/AFib- mod to severe mitral and tricuspid regurgitation. Pulm HTN and EF 15% - on CCB and lasix - per cardiology - avoid hypotensive episodes Subjective Date patient seen: Oct 01, 2017 Time patient seen: 08:36 ROS Limited/Unobtainable: No Constitutional: Reports: no symptoms HEENT: Reports: no symptoms Cardiovascular: Reports: chest pain Respiratory: Reports: no symptoms Gastrointestinal/Abdominal: Reports: no symptoms Genitourinary: Reports: no symptoms Allergies: Coded Allergies: HYDROMORPHONE (Verified Allergy, Unknown, 12/28/10) All Systems: reviewed and negative except above Subjective Patient feeling better. Chest pain improved but minor 2/10 Objective Last 24 Hour Vital Signs Date Time Temp Pulse Resp B/P (MAP) Pulse Ox O2 Delivery O2 Flow Rate FiO2 10/01/17 07:58 97.0 78 20 99/55 98 97.0 10/01/17 04:00 75 10/01/17 03:42 97.2 75 20 103/69 98 97.2 10/01/17 00:00 75 10/01/17 00:00 98.0 74 16 93/60 98 98.0 10/01/17 00:00 98.0 74 20 93/60 98 98.0 09/30/17 21:57 76 94/71 09/30/17 21:00 72 92/66 09/30/17 20:00 75 09/30/17 20:00 97.0 65 16 95/62 100 97.0 09/30/17 19:30 68 18 Room Air 21 09/30/17 16:00 97.2 76 18 97/65 100 Room Air 97.2 09/30/17 15:20 75 09/30/17 12:00 96.1 75 20 95/52 98 Room Air 96.1 09/30/17 11:39 75 09/30/17 09:42 100/70 09/30/17 09:42 77 09/30/17 09:00 79 100/70 09/30/17 09:00 79 100/70 Intake and Output 09/30/17 10/01/17 19:00 07:00 Intake Total 480 ml Output Total 500 ml 800 ml Balance -20 ml -800 ml Intake Oral 480 ml Output Urine Total 500 ml 800 ml Laboratory Tests 09/30/17 09:05: White Blood Count 3.9L, Red Blood Count 3.92L, Hemoglobin 10.8L, Hematocrit 34.5L, Mean Corpuscular Volume 88, Mean Corpuscular Hemoglobin 27.7, Mean Corpuscular Hemoglobin Concent 31.4L, Red Cell Distribution Width 21.7H, Platelet Count 176, Mean Platelet Volume 6.5, Neutrophils (%) (Auto) 62.6, Lymphocytes (%) (Auto) 22.8, Monocytes (%) (Auto) 11.5H, Eosinophils (%) (Auto) 1.7, Basophils (%) (Auto) 1.5, Prothrombin Time 18.1H, Prothromb Time International Ratio 1.7H, Activated Partial Thromboplast Time 29, Troponin I 0.011, C-Reactive Protein, Quantitative 1.5H, Triglycerides Level 65, Cholesterol Level 143, LDL Cholesterol 122H, HDL Cholesterol 23L, Cholesterol/ HDL Ratio 6.2H, Thyroid Stimulating Hormone (TSH) 17.971H, Digoxin Level < 0.2L , HIV (1&2) Antibody Rapid Negative 09/30/17 17:45: Sodium Level 133L, Potassium Level 4.6, Chloride Level 102, Carbon Dioxide Level 23, Anion Gap 9, Blood Urea Nitrogen 37H, Creatinine 1.7H, Estimat Glomerular Filtration Rate 49.4, Glucose Level 121H, Calcium Level 8.4L, Total Creatine Kinase 66 10/01/17 06:49: White Blood Count [Pending], Red Blood Count [Pending], Hemoglobin [Pending], Hematocrit [Pending], Mean Corpuscular Volume [Pending], Mean Corpuscular Hemoglobin [Pending], Mean Corpuscular Hemoglobin Concent [Pending], Red Cell Distribution Width [Pending], Platelet Count [Pending], Mean Platelet Volume [ Pending], Neutrophils (%) (Auto) [Pending], Lymphocytes (%) (Auto) [Pending], Monocytes (%) (Auto) [Pending], Eosinophils (%) (Auto) [Pending], Basophils (%) (Auto) [Pending], Sodium Level [Pending], Potassium Level [Pending], Chloride Level [Pending], Carbon Dioxide Level [Pending], Blood Urea Nitrogen [Pending], Creatinine [Pending], Estimat Glomerular Filtration Rate [Pending], Glucose Level [Pending], Calcium Level [Pending] Height (Feet): 5 Height (Inches): 9.00 Weight (Pounds): 163 General Appearance: WD/WN, no apparent distress, alert EENT: PERRL/EOMI Neck: non-tender, supple Cardiovascular: normal rate, regular rhythm Respiratory/Chest: chest wall non-tender, normal breath sounds Abdomen: normal bowel sounds, non tender, soft Edema: no edema noted Arm (L), no edema noted Arm (R), no edema noted Leg (L), no edema noted Leg (R), no edema noted Pedal (L), no edema noted Pedal (R), no edema noted Generalized Sherwin Hawkins M.D. Oct 01, 2017 08:47
[2017-10-01] MEDS: Lisinopril 10mg tab ORAL SCH (09:00)
[2017-10-01] MEDS: Carvedilol 6.25mg Tab ORAL SCH ×2 (09:00→20:59)
--- NOTE | 2017-10-01 09:48 | GI Progress Note ---
Assessment/Plan Problems: (1) Hypothyroidism ICD Codes: E03.9 - Hypothyroidism SNOMED: 98308106 (2) Ascites ICD Codes: R18.8 - Ascites SNOMED: 846639108 (3) Right-sided heart failure ICD Codes: I50.9 - Right-sided heart failure SNOMED: 118825040 (4) EF < 20% (5) CHF (congestive heart failure) ICD Codes: I50.9 - Heart failure, unspecified SNOMED: 02436768 (6) Abdominal pain ICD Codes: R10.9 - Abdominal pain SNOMED: 79651773 Status: unchanged Status Narrative Discussed with Dr. Ryan. Assessment/Plan hx of Hep C in 2014 s/p tx >> hep panel redrawn in 2016 was negative s/p colonoscopy with one polyp 06/26/16 No evidence of cirrhosis symptomatic treatment, fu cardiology recs paracentesis today diuresis adv low sodium diet ppi pain mgmt fu labs Subjective Gastrointestinal/Abdominal: Reports: abdomen distended Objective Last 24 Hour Vital Signs Date Time Temp Pulse Resp B/P (MAP) Pulse Ox O2 Delivery O2 Flow Rate FiO2 10/01/17 08:00 75 10/01/17 07:58 97.0 78 20 99/55 98 97.0 10/01/17 04:00 75 10/01/17 03:42 97.2 75 20 103/69 98 97.2 10/01/17 00:00 75 10/01/17 00:00 98.0 74 16 93/60 98 98.0 10/01/17 00:00 98.0 74 20 93/60 98 98.0 09/30/17 21:57 76 94/71 09/30/17 21:00 72 92/66 09/30/17 20:00 75 09/30/17 20:00 97.0 65 16 95/62 100 97.0 09/30/17 19:30 68 18 Room Air 21 09/30/17 16:00 97.2 76 18 97/65 100 Room Air 97.2 09/30/17 15:20 75 09/30/17 12:00 96.1 75 20 95/52 98 Room Air 96.1 09/30/17 11:39 75 Intake and Output 09/30/17 10/01/17 19:00 07:00 Intake Total 480 ml Output Total 500 ml 800 ml Balance -20 ml -800 ml Intake Oral 480 ml Output Urine Total 500 ml 800 ml Laboratory Tests Test 09/30/17 17:45 10/01/17 06:49 Sodium Level 133 MMOL/L (136-145) L 136 MMOL/L (136-145) Potassium Level 4.6 MMOL/L (3.5-5.1) 4.3 MMOL/L (3.5-5.1) Chloride Level 102 MMOL/L (98-107) 102 MMOL/L (98-107) Carbon Dioxide Level 23 MMOL/L (21-32) 28 MMOL/L (21-32) Anion Gap 9 mmol/L (5-15) 6 mmol/L (5-15) Blood Urea Nitrogen 37 mg/dL (7-18) H 35 mg/dL (7-18) H Creatinine 1.7 MG/DL (0.55-1.30) H 1.6 MG/DL (0.55-1.30) H Estimat Glomerular Filtration Rate 49.4 mL/min (>60) 53.0 mL/min (>60) Glucose Level 121 MG/DL (74-106) H 92 MG/DL (74-106) Calcium Level 8.4 MG/DL (8.5-10.1) L 8.3 MG/DL (8.5-10.1) L Total Creatine Kinase 66 U/L (26-308) White Blood Count 4.7 K/UL (4.8-10.8) L Red Blood Count 3.62 M/UL (4.70-6.10) L Hemoglobin 10.0 G/DL (14.2-18.0) L Hematocrit 32.3 % (42.0-52.0) L Mean Corpuscular Volume 89 FL (80-99) Mean Corpuscular Hemoglobin 27.5 PG (27.0-31.0) Mean Corpuscular Hemoglobin Concent 30.8 G/DL (32.0-36.0) L Red Cell Distribution Width 21.2 % (11.6-14.8) H Platelet Count 161 K/UL (150-450) Mean Platelet Volume 6.3 FL (6.5-10.1) L Neutrophils (%) (Auto) 72.4 % (45.0-75.0) Lymphocytes (%) (Auto) 13.4 % (20.0-45.0) L Monocytes (%) (Auto) 9.9 % (1.0-10.0) Eosinophils (%) (Auto) 2.7 % (0.0-3.0) Basophils (%) (Auto) 1.6 % (0.0-2.0) Troponin I 0.021 ng/mL (0.000-0.056) Height (Feet): 5 Height (Inches): 9.00 Weight (Pounds): 163 General Appearance: WD/WN, no apparent distress, alert Cardiovascular: normal rate Respiratory/Chest: normal breath sounds, no respiratory distress Abdominal Exam: normal bowel sounds, non tender, soft Extremities: normal range of motion, non-tender Chanel Bird N.P. Oct 01, 2017 09:48
[2017-10-01] MEDS: Sotalol 80mg tab ORAL SCH ×2 (10:10→21:08)
[2017-10-01] MEDS: Aspirin Baby 81mg ORAL SCH (10:12)
[2017-10-01] MEDS: Xarelto 10mg tab ORAL SCH (10:12)
[2017-10-01] MEDS: Digoxin 0.125mg tab ORAL SCH (10:12)
--- NOTE | 2017-10-01 10:26 | Infectious Diseases Prog Note ---
Assessment/Plan Assessment/Plan ASSESSMENT: The patient is a 62-year-old male with: Bronchitis /community-acquired pneumonia Chest x-ray: cardiomegaly, no acute process. Leukopenia due to probably cirrhosis. History of hepatitis C status post treatment HIV Neg CKD : US: Normal kidneys. Negative for hydronephrosis Congestive heart failure with ejection fraction of 20%. SP Chest pain. Hypothyroidism. CAD. CHF. Status post pacemaker. History of cirrhosis. Ascites PLAN: cont the patient on Levaquin day #06/20. Monitor CBC. Monitor BMP. Monitor cultures (blood, sputum). Monitor chest x-ray. paracentesis workup : P Subjective Allergies: Coded Allergies: HYDROMORPHONE (Verified Allergy, Unknown, 12/28/10) Subjective Afebrile Objective Vital Signs Last 24 Hour Vital Signs Date Time Temp Pulse Resp B/P (MAP) Pulse Ox O2 Delivery O2 Flow Rate FiO2 10/01/17 10:12 97.0 10/01/17 10:12 75 10/01/17 10:10 75 99/55 10/01/17 09:00 99/55 10/01/17 09:00 75 99/55 10/01/17 08:00 75 10/01/17 07:58 97.0 78 20 99/55 98 97.0 10/01/17 04:00 75 10/01/17 03:42 97.2 75 20 103/69 98 97.2 10/01/17 00:00 75 10/01/17 00:00 98.0 74 16 93/60 98 98.0 10/01/17 00:00 98.0 74 20 93/60 98 98.0 09/30/17 21:57 76 94/71 09/30/17 21:00 72 92/66 09/30/17 20:00 75 09/30/17 20:00 97.0 65 16 95/62 100 97.0 09/30/17 19:30 68 18 Room Air 21 09/30/17 16:00 97.2 76 18 97/65 100 Room Air 97.2 09/30/17 15:20 75 09/30/17 12:00 96.1 75 20 95/52 98 Room Air 96.1 09/30/17 11:39 75 Height (Feet): 5 Height (Inches): 9.00 Weight (Pounds): 163 HEENT: anicteric Respiratory/Chest: normal breath sounds Cardiovascular: regular rhythm Abdomen: no organomegaly Laboratory Tests Test 09/30/17 17:45 10/01/17 06:49 10/01/17 09:28 Sodium Level 133 MMOL/L (136-145) L 136 MMOL/L (136-145) Potassium Level 4.6 MMOL/L (3.5-5.1) 4.3 MMOL/L (3.5-5.1) Chloride Level 102 MMOL/L (98-107) 102 MMOL/L (98-107) Carbon Dioxide Level 23 MMOL/L (21-32) 28 MMOL/L (21-32) Anion Gap 9 mmol/L (5-15) 6 mmol/L (5-15) Blood Urea Nitrogen 37 mg/dL (7-18) H 35 mg/dL (7-18) H Creatinine 1.7 MG/DL (0.55-1.30) H 1.6 MG/DL (0.55-1.30) H Estimat Glomerular Filtration Rate 49.4 mL/min (>60) 53.0 mL/min (>60) Glucose Level 121 MG/DL (74-106) H 92 MG/DL (74-106) Calcium Level 8.4 MG/DL (8.5-10.1) L 8.3 MG/DL (8.5-10.1) L Total Creatine Kinase 66 U/L (26-308) White Blood Count 4.7 K/UL (4.8-10.8) L Red Blood Count 3.62 M/UL (4.70-6.10) L Hemoglobin 10.0 G/DL (14.2-18.0) L Hematocrit 32.3 % (42.0-52.0) L Mean Corpuscular Volume 89 FL (80-99) Mean Corpuscular Hemoglobin 27.5 PG (27.0-31.0) Mean Corpuscular Hemoglobin Concent 30.8 G/DL (32.0-36.0) L Red Cell Distribution Width 21.2 % (11.6-14.8) H Platelet Count 161 K/UL (150-450) Mean Platelet Volume 6.3 FL (6.5-10.1) L Neutrophils (%) (Auto) 72.4 % (45.0-75.0) Lymphocytes (%) (Auto) 13.4 % (20.0-45.0) L Monocytes (%) (Auto) 9.9 % (1.0-10.0) Eosinophils (%) (Auto) 2.7 % (0.0-3.0) Basophils (%) (Auto) 1.6 % (0.0-2.0) Troponin I 0.021 ng/mL (0.000-0.056) Body Fluid Glucose Pending Body Fluid Total Protein Pending Body Fluid Albumin Pending Current Medications Medications (Trade) Dose Ordered Sig/Allyn Route PRN Reason Start Time Stop Time Status Last Admin Dose Admin Acetaminophen (Tylenol) 650 mg Q4H PRN ORAL FEVER 09/29/17 19:45 10/29/17 19:44 Albuterol/ Ipratropium (Albuterol/ Ipratropium) 3 ml EVERY 4 HOURS PRN HHN Shortness of Breath 09/29/17 19:45 10/04/17 19:44 Aspirin (ASA) 162 mg DAILY ORAL 09/30/17 09:00 10/30/17 08:59 10/01/17 10:12 Carvedilol (Coreg) 6.25 mg EVERY 12 HOURS ORAL 09/29/17 21:00 10/29/17 20:59 09/30/17 21:00 Digoxin (Lanoxin) 0.125 mg DAILY ORAL 09/30/17 09:00 10/30/17 08:59 10/01/17 10:12 Diltiazem HCl (Cardizem) 10 mg EVERY HOUR PRN IV heart rate more than 120, 09/29/17 19:45 10/29/17 19:44 Furosemide (Lasix) 40 mg EVERY 12 HOURS IV 09/30/17 21:00 10/30/17 20:59 10/01/17 10:13 Gabapentin (Neurontin) 100 mg THREE TIMES A DAY ORAL 09/30/17 09:00 10/30/17 08:59 10/01/17 10:10 Levofloxacin 150 ml @ 100 mls/hr Q24H IVPB 09/30/17 15:30 10/07/17 15:29 09/30/17 15:36 Levothyroxine Sodium (Synthroid) 88 mcg ACBREAKFAST ORAL 10/01/17 06:30 10/30/17 08:59 10/01/17 06:14 Lisinopril (Zestril) 10 mg DAILY ORAL 10/01/17 09:00 10/30/17 08:59 Nitroglycerin (Ntg) 0.4 mg Every 5 Minutes PRN SL Prn Chest Pain 09/29/17 19:45 10/29/17 19:44 Ondansetron HCl (Zofran) 4 mg Q6H PRN IVP Nausea & Vomiting 09/29/17 19:45 10/29/17 19:44 Oxycodone HCl (Roxicodone) 10 mg BID PRN ORAL severe pain 09/30/17 09:00 10/07/17 08:59 10/01/17 06:15 Polyethylene Glycol (Miralax) 17 gm DAILYPRN PRN ORAL Constipation 09/29/17 19:45 10/29/17 19:44 Rivaroxaban (Xarelto) 20 mg DAILY ORAL 09/30/17 09:00 10/30/17 08:59 10/01/17 10:12 Simethicone (Mylicon) 80 mg QID PRN ORAL GAS PAIN 09/30/17 14:15 10/30/17 14:14 Sotalol HCl (Betapace) 80 mg Q12HR ORAL 09/29/17 21:00 10/29/17 20:59 10/01/17 10:10 Temazepam (Restoril) 15 mg HSPRN PRN ORAL Insomnia 09/29/17 19:45 10/06/17 19:44 09/30/17 21:57 Tizanidine HCl (Zanaflex) 4 mg THREE TIMES A DAY ORAL 09/30/17 09:00 10/30/17 08:59 10/01/17 10:12 Harley Marcos MD Oct 01, 2017 10:26
--- NOTE | 2017-10-01 10:54 | Pulmonology Progress Note ---
Assessment/Plan Problems: (1) ACS (acute coronary syndrome) (2) Ascites (3) Emphysema lung (4) EF < 20% (5) Hepatitis C (6) Right-sided heart failure (7) ICD (implantable cardioverter-defibrillator) in place (8) Cirrhosis Assessment/Plan symptomatic treatment check analysis of the peritoneal fluids optimize cardiac meds symptomatic treatment titrate fio2 to sat of 92% limit oral fluid intake. Subjective ROS Limited/Unobtainable: No Constitutional: Reports: no symptoms HEENT: Repors: no symptoms Allergies: Coded Allergies: HYDROMORPHONE (Verified Allergy, Unknown, 12/28/10) Objective Last 24 Hour Vital Signs Date Time Temp Pulse Resp B/P (MAP) Pulse Ox O2 Delivery O2 Flow Rate FiO2 10/01/17 10:12 97.0 10/01/17 10:12 75 10/01/17 10:10 75 99/55 10/01/17 09:00 99/55 10/01/17 09:00 75 99/55 10/01/17 08:00 75 10/01/17 07:58 97.0 78 20 99/55 98 97.0 10/01/17 04:00 75 10/01/17 03:42 97.2 75 20 103/69 98 97.2 10/01/17 00:00 75 10/01/17 00:00 98.0 74 16 93/60 98 98.0 10/01/17 00:00 98.0 74 20 93/60 98 98.0 09/30/17 21:57 76 94/71 09/30/17 21:00 72 92/66 09/30/17 20:00 75 09/30/17 20:00 97.0 65 16 95/62 100 97.0 09/30/17 19:30 68 18 Room Air 21 09/30/17 16:00 97.2 76 18 97/65 100 Room Air 97.2 09/30/17 15:20 75 09/30/17 12:00 96.1 75 20 95/52 98 Room Air 96.1 09/30/17 11:39 75 Intake and Output 09/30/17 10/01/17 19:00 07:00 Intake Total 480 ml Output Total 500 ml 800 ml Balance -20 ml -800 ml Intake Oral 480 ml Output Urine Total 500 ml 800 ml Objective had paracentesis, 100 cc removed General Appearance: WD/WN HEENT: normocephalic, atraumatic Respiratory/Chest: chest wall non-tender, lungs clear Cardiovascular: normal peripheral pulses, regular rhythm Abdomen: normal bowel sounds, soft, non tender Extremities: no cyanosis Skin: no rash Neurologic/Psychiatric: fine grade operator II-XII grossly normal Laboratory Tests 09/30/17 17:45: Sodium Level 133L, Potassium Level 4.6, Chloride Level 102, Carbon Dioxide Level 23, Anion Gap 9, Blood Urea Nitrogen 37H, Creatinine 1.7H, Estimat Glomerular Filtration Rate 49.4, Glucose Level 121H, Calcium Level 8.4L, Total Creatine Kinase 66 10/01/17 06:49: Sodium Level 136, Potassium Level 4.3, Chloride Level 102, Carbon Dioxide Level 28, Anion Gap 6, Blood Urea Nitrogen 35H, Creatinine 1.6H, Estimat Glomerular Filtration Rate 53.0, Glucose Level 92, Calcium Level 8.3L, White Blood Count 4.7L, Red Blood Count 3.62L, Hemoglobin 10.0L, Hematocrit 32.3L, Mean Corpuscular Volume 89, Mean Corpuscular Hemoglobin 27.5, Mean Corpuscular Hemoglobin Concent 30.8L, Red Cell Distribution Width 21.2H, Platelet Count 161 , Mean Platelet Volume 6.3L, Neutrophils (%) (Auto) 72.4, Lymphocytes (%) (Auto ) 13.4L, Monocytes (%) (Auto) 9.9, Eosinophils (%) (Auto) 2.7, Basophils (%) ( Auto) 1.6, Troponin I 0.021 10/01/17 09:28: Body Fluid Glucose [Pending], Body Fluid Total Protein [Pending], Body Fluid Albumin [Pending] Current Medications Medications (Trade) Dose Ordered Sig/Allyn Route PRN Reason Start Time Stop Time Status Last Admin Dose Admin Acetaminophen (Tylenol) 650 mg Q4H PRN ORAL FEVER 09/29/17 19:45 10/29/17 19:44 Albuterol/ Ipratropium (Albuterol/ Ipratropium) 3 ml EVERY 4 HOURS PRN HHN Shortness of Breath 09/29/17 19:45 10/04/17 19:44 Aspirin (ASA) 162 mg DAILY ORAL 09/30/17 09:00 10/30/17 08:59 10/01/17 10:12 Carvedilol (Coreg) 6.25 mg EVERY 12 HOURS ORAL 09/29/17 21:00 10/29/17 20:59 09/30/17 21:00 Digoxin (Lanoxin) 0.125 mg DAILY ORAL 09/30/17 09:00 10/30/17 08:59 10/01/17 10:12 Diltiazem HCl (Cardizem) 10 mg EVERY HOUR PRN IV heart rate more than 120, 09/29/17 19:45 10/29/17 19:44 Furosemide (Lasix) 40 mg EVERY 12 HOURS IV 09/30/17 21:00 10/30/17 20:59 10/01/17 10:13 Gabapentin (Neurontin) 100 mg THREE TIMES A DAY ORAL 09/30/17 09:00 10/30/17 08:59 10/01/17 10:10 Levofloxacin 150 ml @ 100 mls/hr Q24H IVPB 09/30/17 15:30 10/07/17 15:29 09/30/17 15:36 Levothyroxine Sodium (Synthroid) 88 mcg ACBREAKFAST ORAL 10/01/17 06:30 10/30/17 08:59 10/01/17 06:14 Lisinopril (Zestril) 10 mg DAILY ORAL 10/01/17 09:00 10/30/17 08:59 Nitroglycerin (Ntg) 0.4 mg Every 5 Minutes PRN SL Prn Chest Pain 09/29/17 19:45 10/29/17 19:44 Ondansetron HCl (Zofran) 4 mg Q6H PRN IVP Nausea & Vomiting 09/29/17 19:45 10/29/17 19:44 Oxycodone HCl (Roxicodone) 10 mg BID PRN ORAL severe pain 09/30/17 09:00 10/07/17 08:59 10/01/17 06:15 Polyethylene Glycol (Miralax) 17 gm DAILYPRN PRN ORAL Constipation 09/29/17 19:45 10/29/17 19:44 Rivaroxaban (Xarelto) 20 mg DAILY ORAL 09/30/17 09:00 10/30/17 08:59 10/01/17 10:12 Simethicone (Mylicon) 80 mg QID PRN ORAL GAS PAIN 09/30/17 14:15 10/30/17 14:14 Sotalol HCl (Betapace) 80 mg Q12HR ORAL 09/29/17 21:00 10/29/17 20:59 10/01/17 10:10 Temazepam (Restoril) 15 mg HSPRN PRN ORAL Insomnia 09/29/17 19:45 10/06/17 19:44 09/30/17 21:57 Tizanidine HCl (Zanaflex) 4 mg THREE TIMES A DAY ORAL 09/30/17 09:00 10/30/17 08:59 10/01/17 10:12 Andrzej Chavarria MD Oct 01, 2017 10:54
--- NOTE | 2017-10-01 11:23 | Diagnostic Imaging Report ---
Indications: Ascites Technique: Ultrasound used to localize optimal puncture site. Only a small pocket of fluid was seen in the right lower quadrant. Sterile prepping and draping right lower quadrant. Local anesthesia with 1% lidocaine. Under real-time ultrasound guidance, puncture peritoneal space using paracentesis needle. Stylet removed. Catheter placed to vacuum bottle suction. Total 100 mL of rena fluid aspirated. Patient tolerated procedure well, without immediate complication. Findings: Followup sonography demonstrates complete resolution of peritoneal fluid. Impression: Successful ultrasound-guided paracentesis, yielding 100 mL of rena-colored fluid
[2017-10-01 11:33] VITALS: BP 96/73
--- NOTE | 2017-10-01 13:03 | Cardiac Electrophysiology PN ---
Assessment/Plan Assessment/Plan 1. Exacerbation of congestive heart failure. The patient's repeat echocardiogram showed ejection fraction still around 20%. Continue Coreg 6.25 mg b.i.d., Lasix 40 mg IV b.i.d., lisinopril 10 mg daily, and Aldactone 50 mg daily. 2. Paroxysmal atrial fibrillation with two prior ablations at [facility] on Coreg and Xarelto 20 mg daily. 3. Status post [place] [place] ICD implantation with dysfunctional right ventricular lead. The patient is scheduled for new right ventricular lead as well as upgrade to biventricular defibrillator on 10/08/17 at [facility] 4. Hepatitis C and ascites, s/p 100 cc paracentesis 5. Renal failure with creatinine of 1.5. Subjective Subjective Had paracentesis today 100 cc. No chest pain.SOB better Objective Last 24 Hour Vital Signs Date Time Temp Pulse Resp B/P (MAP) Pulse Ox O2 Delivery O2 Flow Rate FiO2 10/01/17 12:32 97.2 10/01/17 12:00 76 10/01/17 11:33 97.2 75 18 96/73 100 97.2 10/01/17 11:20 75 20 Room Air 21 10/01/17 11:11 97.0 10/01/17 10:12 97.0 10/01/17 10:12 75 10/01/17 10:10 75 99/55 10/01/17 09:00 99/55 10/01/17 09:00 75 99/55 10/01/17 08:00 75 10/01/17 07:58 97.0 78 20 99/55 98 97.0 10/01/17 04:00 75 10/01/17 03:42 97.2 75 20 103/69 98 97.2 10/01/17 00:00 75 10/01/17 00:00 98.0 74 16 93/60 98 98.0 10/01/17 00:00 98.0 74 20 93/60 98 98.0 09/30/17 21:57 76 94/71 09/30/17 21:00 72 92/66 09/30/17 20:00 75 09/30/17 20:00 97.0 65 16 95/62 100 97.0 09/30/17 19:30 68 18 Room Air 21 09/30/17 16:00 97.2 76 18 97/65 100 Room Air 97.2 09/30/17 15:20 75 Intake and Output 09/30/17 10/01/17 19:00 07:00 Intake Total 480 ml Output Total 500 ml 800 ml Balance -20 ml -800 ml Intake Oral 480 ml Output Urine Total 500 ml 800 ml Laboratory Tests Test 09/30/17 17:45 10/01/17 06:49 10/01/17 09:28 Sodium Level 133 MMOL/L (136-145) L 136 MMOL/L (136-145) Potassium Level 4.6 MMOL/L (3.5-5.1) 4.3 MMOL/L (3.5-5.1) Chloride Level 102 MMOL/L (98-107) 102 MMOL/L (98-107) Carbon Dioxide Level 23 MMOL/L (21-32) 28 MMOL/L (21-32) Anion Gap 9 mmol/L (5-15) 6 mmol/L (5-15) Blood Urea Nitrogen 37 mg/dL (7-18) H 35 mg/dL (7-18) H Creatinine 1.7 MG/DL (0.55-1.30) H 1.6 MG/DL (0.55-1.30) H Estimat Glomerular Filtration Rate 49.4 mL/min (>60) 53.0 mL/min (>60) Glucose Level 121 MG/DL (74-106) H 92 MG/DL (74-106) Calcium Level 8.4 MG/DL (8.5-10.1) L 8.3 MG/DL (8.5-10.1) L Total Creatine Kinase 66 U/L (26-308) White Blood Count 4.7 K/UL (4.8-10.8) L Red Blood Count 3.62 M/UL (4.70-6.10) L Hemoglobin 10.0 G/DL (14.2-18.0) L Hematocrit 32.3 % (42.0-52.0) L Mean Corpuscular Volume 89 FL (80-99) Mean Corpuscular Hemoglobin 27.5 PG (27.0-31.0) Mean Corpuscular Hemoglobin Concent 30.8 G/DL (32.0-36.0) L Red Cell Distribution Width 21.2 % (11.6-14.8) H Platelet Count 161 K/UL (150-450) Mean Platelet Volume 6.3 FL (6.5-10.1) L Neutrophils (%) (Auto) 72.4 % (45.0-75.0) Lymphocytes (%) (Auto) 13.4 % (20.0-45.0) L Monocytes (%) (Auto) 9.9 % (1.0-10.0) Eosinophils (%) (Auto) 2.7 % (0.0-3.0) Basophils (%) (Auto) 1.6 % (0.0-2.0) Troponin I 0.021 ng/mL (0.000-0.056) Body Fluid Glucose Pending Body Fluid Total Protein Pending Body Fluid Albumin Pending Objective HEAD AND NECK: Positive JVD. LUNGS: Clear. CARDIOVASCULAR: Regular S1 and S2 with 2/6 systolic murmur. ICD left subclavian ABDOMEN: Soft with ascites. EXTREMITIES: A 1+ pitting edema. Rc Zhang MD Oct 01, 2017 13:02
--- NOTE | 2017-10-01 14:58 | General Progress Note ---
Assessment/Plan Problem List: (1) Cirrhosis ICD Codes: K74.60 - Unspecified cirrhosis of liver SNOMED: 28534073 (2) CHF (congestive heart failure) ICD Codes: I50.9 - Heart failure, unspecified SNOMED: 02995344 (3) Pain ICD Codes: R52 - Pain SNOMED: 34623573 (4) UTI (urinary tract infection) ICD Codes: N39.0 - Urinary tract infection, site not specified SNOMED: 43597772 (5) Abdominal pain ICD Codes: R10.9 - Abdominal pain SNOMED: 38055522 Status: stable, progressing, tolerating diet Assessment/Plan abx pain control gi f/u cbc bmp am Subjective Constitutional: Reports: weakness Allergies: Coded Allergies: HYDROMORPHONE (Verified Allergy, Unknown, 12/28/10) All Systems: reviewed and negative except above Subjective feeling better s/p pericentesis Objective Last 24 Hour Vital Signs Date Time Temp Pulse Resp B/P (MAP) Pulse Ox O2 Delivery O2 Flow Rate FiO2 10/01/17 13:31 97.2 10/01/17 12:32 97.2 10/01/17 12:00 76 10/01/17 11:33 97.2 75 18 96/73 100 97.2 10/01/17 11:20 75 20 Room Air 21 10/01/17 10:12 97.0 10/01/17 10:12 75 10/01/17 10:10 75 99/55 10/01/17 09:00 99/55 10/01/17 09:00 75 99/55 10/01/17 08:00 75 10/01/17 07:58 97.0 78 20 99/55 98 97.0 10/01/17 04:00 75 10/01/17 03:42 97.2 75 20 103/69 98 97.2 10/01/17 00:00 75 10/01/17 00:00 98.0 74 16 93/60 98 98.0 10/01/17 00:00 98.0 74 20 93/60 98 98.0 09/30/17 21:57 76 94/71 09/30/17 21:00 72 92/66 09/30/17 20:00 75 09/30/17 20:00 97.0 65 16 95/62 100 97.0 09/30/17 19:30 68 18 Room Air 21 09/30/17 16:00 97.2 76 18 97/65 100 Room Air 97.2 09/30/17 15:20 75 Intake and Output 09/30/17 10/01/17 18:59 06:59 Intake Total 480 ml Output Total 500 ml 800 ml Balance -20 ml -800 ml Intake Oral 480 ml Output Urine Total 500 ml 800 ml Laboratory Tests 09/30/17 17:45: Sodium Level 133L, Potassium Level 4.6, Chloride Level 102, Carbon Dioxide Level 23, Anion Gap 9, Blood Urea Nitrogen 37H, Creatinine 1.7H, Estimat Glomerular Filtration Rate 49.4, Glucose Level 121H, Calcium Level 8.4L, Total Creatine Kinase 66 10/01/17 06:49: Sodium Level 136, Potassium Level 4.3, Chloride Level 102, Carbon Dioxide Level 28, Anion Gap 6, Blood Urea Nitrogen 35H, Creatinine 1.6H, Estimat Glomerular Filtration Rate 53.0, Glucose Level 92, Calcium Level 8.3L, White Blood Count 4.7L, Red Blood Count 3.62L, Hemoglobin 10.0L, Hematocrit 32.3L, Mean Corpuscular Volume 89, Mean Corpuscular Hemoglobin 27.5, Mean Corpuscular Hemoglobin Concent 30.8L, Red Cell Distribution Width 21.2H, Platelet Count 161 , Mean Platelet Volume 6.3L, Neutrophils (%) (Auto) 72.4, Lymphocytes (%) (Auto ) 13.4L, Monocytes (%) (Auto) 9.9, Eosinophils (%) (Auto) 2.7, Basophils (%) ( Auto) 1.6, Troponin I 0.021 10/01/17 09:28: Body Fluid Glucose [Pending], Body Fluid Total Protein [Pending], Body Fluid Albumin [Pending] Height (Feet): 5 Height (Inches): 9.00 Weight (Pounds): 166 General Appearance: alert EENT: normal ENT inspection Neck: normal alignment Cardiovascular: normal peripheral pulses, normal rate, regular rhythm Respiratory/Chest: chest wall non-tender, lungs clear, normal breath sounds Abdomen: normal bowel sounds, soft, no organomegaly Extremities: normal inspection Edema: no edema noted Arm (L), no edema noted Arm (R), no edema noted Leg (L), no edema noted Leg (R), no edema noted Pedal (L), no edema noted Pedal (R), no edema noted Generalized Neurologic: responsive, motor weakness Skin: normal pigmentation, warm/dry ROCÍO MOJICA Oct 01, 2017 14:58
[2017-10-01 15:49] VITALS: BP 99/71
[2017-10-01 20:00] VITALS: BP 100/75
[2017-10-02] VITALS: BP 102/71
[2017-10-02 04:00] VITALS: BP 98/69
[2017-10-02] MEDS: oxyCODONE 5mg IR tab ORAL PRN ×3 (06:06→19:40)
[2017-10-02 08:00] VITALS: BP 105/77
[2017-10-02] MEDS: Sotalol 80mg tab ORAL SCH ×2 (08:26→20:52)
[2017-10-02] MEDS: Aspirin Baby 81mg ORAL SCH (08:27)
[2017-10-02] MEDS: Digoxin 0.125mg tab ORAL SCH (08:27)
[2017-10-02] MEDS: Carvedilol 6.25mg Tab ORAL SCH ×2 (08:27→20:51)
[2017-10-02] MEDS: Xarelto 10mg tab ORAL SCH (08:27)
[2017-10-02] MEDS: Lisinopril 10mg tab ORAL SCH (08:28)
[2017-10-02 08:53] LABS: EOSINOPHILS % (AUTO) 2.3 % (0.0-3.0); HEMATOCRIT 35.9 % (42.0-52.0); HEMOGLOBIN 11.3 G/DL (14.2-18.0); LYMPHOCYTES % (AUTO) 16.1 % (20.0-45.0); MEAN CORPUSCULAR VOLUME 89 FL (80-99); MONOCYTES % (AUTO) 10.8 % (1.0-10.0); NEUTROPHILS % (AUTO) 67.9 % (45.0-75.0); PLATELET COUNT 194 K/UL (150-450); RED BLOOD COUNT 4.05 M/UL (4.70-6.10); RED CELL DISTRIBUTION WIDTH 20.8 % (11.6-14.8); WHITE BLOOD COUNT 4.5 K/UL (4.8-10.8)
--- NOTE | 2017-10-02 08:53 | Nephrology Progress Note ---
Assessment/Plan Assessment/Plan 1. ARIS on CKD 3A- Resolving, Cr 1.6. AM labs for today pending. Can f/u in clinic 2 weeks post DC - ATN multifactorial in nature ( ischemic ATN from hypotension/perfusion, cardiorenal, low EF 15%, NSAIDs, aldactone/MARINA-I) - Renal US negative - NSAID (Toradal) stopped, avoid hypotension 2. Hypotension- hold MARINA-I if SBP <105 3. ACS/Chest Pain- management per cardiology 4. SOB- Resolved On lasix and antibiotics. 5. Hypothyroid- synthroid 6. CHD/Pulm HTN/AFib- mod to severe mitral and tricuspid regurgitation. Pulm HTN and EF 15% - per cardiology 7.Paroxysmal atrial fibrillation with two prior ablations at [facility] on Coreg and Xarelto 20 mg daily. Subjective Date patient seen: Oct 02, 2017 Time patient seen: 08:49 ROS Limited/Unobtainable: Yes Constitutional: Reports: no symptoms HEENT: Reports: no symptoms Cardiovascular: Reports: no symptoms Respiratory: Reports: no symptoms Gastrointestinal/Abdominal: Reports: no symptoms Genitourinary: Reports: no symptoms Neurologic/Psychiatric: Reports: no symptoms Endocrine: Reports: no symptoms Allergies: Coded Allergies: HYDROMORPHONE (Verified Allergy, Unknown, 12/28/10) Subjective Patient feeling better. CP and SOB resolved Objective Last 24 Hour Vital Signs Date Time Temp Pulse Resp B/P (MAP) Pulse Ox O2 Delivery O2 Flow Rate FiO2 10/02/17 08:28 105/77 10/02/17 08:27 75 10/02/17 08:27 75 105/77 10/02/17 08:26 97.5 10/02/17 08:26 75 105/77 10/02/17 04:00 75 10/02/17 04:00 97.5 75 18 98/69 100 Room Air 97.5 10/02/17 00:00 76 10/02/17 00:00 97.3 75 18 102/71 99 Room Air 97.3 10/01/17 21:08 75 100/75 10/01/17 20:59 75 100/75 10/01/17 20:00 75 10/01/17 20:00 97.0 77 19 100/75 100 Room Air 97.0 10/01/17 19:19 81 20 Room Air 21 10/01/17 18:16 97.3 10/01/17 17:17 97.3 10/01/17 16:00 75 10/01/17 15:49 97.3 76 18 99/71 100 97.3 10/01/17 12:32 97.2 10/01/17 12:00 76 10/01/17 11:33 97.2 75 18 96/73 100 97.2 10/01/17 11:20 75 20 Room Air 21 10/01/17 10:12 97.0 10/01/17 10:12 75 10/01/17 10:10 75 99/55 10/01/17 09:00 99/55 10/01/17 09:00 75 99/55 Intake and Output 10/01/17 10/02/17 19:00 07:00 Intake Total 750 ml 800 ml Output Total 1300 ml 2625 ml Balance -550 ml -1825 ml Intake Oral 600 ml 800 ml IV Total 150 ml Output Urine Total 1300 ml 2625 ml Laboratory Tests 10/01/17 09:28: Body Fluid Glucose [Pending], Body Fluid Total Protein [Pending], Body Fluid Albumin [Pending] 10/02/17 08:20: White Blood Count [Pending], Red Blood Count [Pending], Hemoglobin [Pending], Hematocrit [Pending], Mean Corpuscular Volume [Pending], Mean Corpuscular Hemoglobin [Pending], Mean Corpuscular Hemoglobin Concent [Pending], Red Cell Distribution Width [Pending], Platelet Count [Pending], Mean Platelet Volume [ Pending], Neutrophils (%) (Auto) [Pending], Lymphocytes (%) (Auto) [Pending], Monocytes (%) (Auto) [Pending], Eosinophils (%) (Auto) [Pending], Basophils (%) (Auto) [Pending], Sodium Level [Pending], Potassium Level [Pending], Chloride Level [Pending], Carbon Dioxide Level [Pending], Blood Urea Nitrogen [Pending], Creatinine [Pending], Estimat Glomerular Filtration Rate [Pending], Glucose Level [Pending], Calcium Level [Pending], Phosphorus Level [Pending], Magnesium Level [Pending] Height (Feet): 5 Height (Inches): 9.00 Weight (Pounds): 166 General Appearance: WD/WN, no apparent distress, alert EENT: PERRL/EOMI, normal ENT inspection Cardiovascular: normal peripheral pulses, normal rate Respiratory/Chest: chest wall non-tender, lungs clear, normal breath sounds Abdomen: normal bowel sounds, non tender, soft Extremities: normal range of motion, non-tender Sherwin Hawkins M.D. Oct 02, 2017 08:53
[2017-10-02 09:11] LABS: ANION GAP 5 mmol/L (5-15); BLOOD UREA NITROGEN 25 mg/dL (7-18); CALCIUM 8.6 MG/DL (8.5-10.1); CARBON DIOXIDE 30 MMOL/L (21-32); CHLORIDE 99 MMOL/L (98-107); CREATININE 1.3 MG/DL (0.55-1.30); POTASSIUM 4.1 MMOL/L (3.5-5.1); SODIUM 134 MMOL/L (136-145)
[2017-10-02 09:16] LABS: PHOSPHORUS 3.6 MG/DL (2.5-4.9)
--- NOTE | 2017-10-02 09:55 | GI Progress Note ---
Assessment/Plan Problems: (1) Hypothyroidism ICD Codes: E03.9 - Hypothyroidism SNOMED: 01098962 (2) Ascites ICD Codes: R18.8 - Ascites SNOMED: 412596774 (3) Right-sided heart failure ICD Codes: I50.9 - Right-sided heart failure SNOMED: 089742703 (4) EF < 20% (5) CHF (congestive heart failure) ICD Codes: I50.9 - Heart failure, unspecified SNOMED: 85224328 (6) Abdominal pain ICD Codes: R10.9 - Abdominal pain SNOMED: 62234203 Status: stable Status Narrative Discussed with Dr. Ryan. Assessment/Plan hx of Hep C in 2014 s/p tx >> hep panel redrawn in 2016 was negative s/p colonoscopy with one polyp 06/26/16 No evidence of cirrhosis s/p paracentesis yielding 100cc symptomatic treatment, fu cardiology recs diuresis adv low sodium diet ppi pain mgmt fu labs Subjective Subjective abdominal discomfort Objective Last 24 Hour Vital Signs Date Time Temp Pulse Resp B/P (MAP) Pulse Ox O2 Delivery O2 Flow Rate FiO2 10/02/17 08:28 105/77 10/02/17 08:27 75 10/02/17 08:27 75 105/77 10/02/17 08:26 97.5 10/02/17 08:26 75 105/77 10/02/17 08:00 76 10/02/17 08:00 97.5 75 18 105/77 100 Room Air 21 97.5 10/02/17 04:00 75 10/02/17 04:00 97.5 75 18 98/69 100 Room Air 97.5 10/02/17 00:00 76 10/02/17 00:00 97.3 75 18 102/71 99 Room Air 97.3 10/01/17 21:08 75 100/75 10/01/17 20:59 75 100/75 10/01/17 20:00 75 10/01/17 20:00 97.0 77 19 100/75 100 Room Air 97.0 10/01/17 19:19 81 20 Room Air 21 10/01/17 18:16 97.3 10/01/17 17:17 97.3 10/01/17 16:00 75 10/01/17 15:49 97.3 76 18 99/71 100 97.3 10/01/17 12:32 97.2 10/01/17 12:00 76 10/01/17 11:33 97.2 75 18 96/73 100 97.2 10/01/17 11:20 75 20 Room Air 21 10/01/17 10:12 97.0 10/01/17 10:12 75 10/01/17 10:10 75 99/55 Intake and Output 10/01/17 10/02/17 19:00 07:00 Intake Total 750 ml 800 ml Output Total 1300 ml 2625 ml Balance -550 ml -1825 ml Intake Oral 600 ml 800 ml IV Total 150 ml Output Urine Total 1300 ml 2625 ml Laboratory Tests Test 10/02/17 08:20 White Blood Count 4.5 K/UL (4.8-10.8) L Red Blood Count 4.05 M/UL (4.70-6.10) L Hemoglobin 11.3 G/DL (14.2-18.0) L Hematocrit 35.9 % (42.0-52.0) L Mean Corpuscular Volume 89 FL (80-99) Mean Corpuscular Hemoglobin 27.9 PG (27.0-31.0) Mean Corpuscular Hemoglobin Concent 31.5 G/DL (32.0-36.0) L Red Cell Distribution Width 20.8 % (11.6-14.8) H Platelet Count 194 K/UL (150-450) Mean Platelet Volume 6.6 FL (6.5-10.1) Neutrophils (%) (Auto) 67.9 % (45.0-75.0) Lymphocytes (%) (Auto) 16.1 % (20.0-45.0) L Monocytes (%) (Auto) 10.8 % (1.0-10.0) H Eosinophils (%) (Auto) 2.3 % (0.0-3.0) Basophils (%) (Auto) 3.0 % (0.0-2.0) H Sodium Level 134 MMOL/L (136-145) L Potassium Level 4.1 MMOL/L (3.5-5.1) Chloride Level 99 MMOL/L (98-107) Carbon Dioxide Level 30 MMOL/L (21-32) Anion Gap 5 mmol/L (5-15) Blood Urea Nitrogen 25 mg/dL (7-18) H Creatinine 1.3 MG/DL (0.55-1.30) Estimat Glomerular Filtration Rate > 60 mL/min (>60) Glucose Level 118 MG/DL (74-106) H Calcium Level 8.6 MG/DL (8.5-10.1) Phosphorus Level 3.6 MG/DL (2.5-4.9) Magnesium Level 1.5 MG/DL (1.8-2.4) L Height (Feet): 5 Height (Inches): 9.00 Weight (Pounds): 166 General Appearance: WD/WN, no apparent distress, alert Cardiovascular: normal rate Respiratory/Chest: normal breath sounds, no respiratory distress Abdominal Exam: normal bowel sounds, non tender, soft Extremities: normal range of motion, non-tender Chanel Bird N.P. Oct 02, 2017 09:55
--- NOTE | 2017-10-02 11:10 | Infectious Diseases Prog Note ---
Assessment/Plan Assessment/Plan ASSESSMENT: The patient is a 62-year-old male with: Bronchitis /community-acquired pneumonia Chest x-ray: cardiomegaly, no acute process. Leukopenia due to probably cirrhosis. History of hepatitis C status post treatment HIV Neg no evid of peritonitis 09/30 SP paracentesis CKD : US: Normal kidneys. Negative for hydronephrosis Congestive heart failure with ejection fraction of 20%. SP Chest pain. Hypothyroidism. CAD. CHF. Status post pacemaker. History of cirrhosis. Ascites PLAN: cont the patient on Levaquin day # 3 /5 Monitor CBC. Monitor BMP. Monitor cultures (blood, sputum). Monitor chest x-ray. paracentesis CX : P Subjective Allergies: Coded Allergies: HYDROMORPHONE (Verified Allergy, Unknown, 12/28/10) Subjective Afebrile Objective Vital Signs Last 24 Hour Vital Signs Date Time Temp Pulse Resp B/P (MAP) Pulse Ox O2 Delivery O2 Flow Rate FiO2 10/02/17 09:25 97.5 10/02/17 08:28 105/77 10/02/17 08:27 75 10/02/17 08:27 75 105/77 10/02/17 08:26 97.5 10/02/17 08:26 75 105/77 10/02/17 08:00 76 10/02/17 08:00 97.5 75 18 105/77 100 Room Air 21 97.5 10/02/17 04:00 75 10/02/17 04:00 97.5 75 18 98/69 100 Room Air 97.5 10/02/17 00:00 76 10/02/17 00:00 97.3 75 18 102/71 99 Room Air 97.3 10/01/17 21:08 75 100/75 10/01/17 20:59 75 100/75 10/01/17 20:00 75 10/01/17 20:00 97.0 77 19 100/75 100 Room Air 97.0 10/01/17 19:19 81 20 Room Air 21 10/01/17 17:17 97.3 10/01/17 16:00 75 10/01/17 15:49 97.3 76 18 99/71 100 97.3 10/01/17 12:32 97.2 10/01/17 12:00 76 10/01/17 11:33 97.2 75 18 96/73 100 97.2 10/01/17 11:20 75 20 Room Air 21 Height (Feet): 5 Height (Inches): 9.00 Weight (Pounds): 166 HEENT: anicteric Respiratory/Chest: normal breath sounds Cardiovascular: regular rhythm Abdomen: no organomegaly Microbiology Date/Time Source Procedure Growth Status 09/30/17 09:28 Ascities Fluid Gram Stain - Final Resulted 09/30/17 09:28 Ascities Fluid Body Fluid Culture - Preliminary NO GROWTH AFTER 24 HOURS Resulted 10/01/17 07:00 Sputum Gram Stain - Final Resulted 10/01/17 07:00 Sputum Sputum Culture Pending Resulted Laboratory Tests Test 10/02/17 08:20 White Blood Count 4.5 K/UL (4.8-10.8) L Red Blood Count 4.05 M/UL (4.70-6.10) L Hemoglobin 11.3 G/DL (14.2-18.0) L Hematocrit 35.9 % (42.0-52.0) L Mean Corpuscular Volume 89 FL (80-99) Mean Corpuscular Hemoglobin 27.9 PG (27.0-31.0) Mean Corpuscular Hemoglobin Concent 31.5 G/DL (32.0-36.0) L Red Cell Distribution Width 20.8 % (11.6-14.8) H Platelet Count 194 K/UL (150-450) Mean Platelet Volume 6.6 FL (6.5-10.1) Neutrophils (%) (Auto) 67.9 % (45.0-75.0) Lymphocytes (%) (Auto) 16.1 % (20.0-45.0) L Monocytes (%) (Auto) 10.8 % (1.0-10.0) H Eosinophils (%) (Auto) 2.3 % (0.0-3.0) Basophils (%) (Auto) 3.0 % (0.0-2.0) H Sodium Level 134 MMOL/L (136-145) L Potassium Level 4.1 MMOL/L (3.5-5.1) Chloride Level 99 MMOL/L (98-107) Carbon Dioxide Level 30 MMOL/L (21-32) Anion Gap 5 mmol/L (5-15) Blood Urea Nitrogen 25 mg/dL (7-18) H Creatinine 1.3 MG/DL (0.55-1.30) Estimat Glomerular Filtration Rate > 60 mL/min (>60) Glucose Level 118 MG/DL (74-106) H Calcium Level 8.6 MG/DL (8.5-10.1) Phosphorus Level 3.6 MG/DL (2.5-4.9) Magnesium Level 1.5 MG/DL (1.8-2.4) L Current Medications Medications (Trade) Dose Ordered Sig/Allyn Route PRN Reason Start Time Stop Time Status Last Admin Dose Admin Acetaminophen (Tylenol) 650 mg Q4H PRN ORAL FEVER 09/29/17 19:45 10/29/17 19:44 Albuterol/ Ipratropium (Albuterol/ Ipratropium) 3 ml EVERY 4 HOURS PRN HHN Shortness of Breath 09/29/17 19:45 10/04/17 19:44 Aspirin (ASA) 162 mg DAILY ORAL 09/30/17 09:00 10/30/17 08:59 10/02/17 08:27 Carvedilol (Coreg) 6.25 mg EVERY 12 HOURS ORAL 09/29/17 21:00 10/29/17 20:59 09/30/17 21:00 Digoxin (Lanoxin) 0.125 mg DAILY ORAL 09/30/17 09:00 10/30/17 08:59 10/02/17 08:27 Diltiazem HCl (Cardizem) 10 mg EVERY HOUR PRN IV heart rate more than 120, 09/29/17 19:45 10/29/17 19:44 Furosemide (Lasix) 40 mg EVERY 12 HOURS IV 09/30/17 21:00 10/30/17 20:59 10/02/17 08:24 Gabapentin (Neurontin) 100 mg THREE TIMES A DAY ORAL 09/30/17 09:00 10/30/17 08:59 10/02/17 08:26 Levofloxacin 150 ml @ 100 mls/hr Q24H IVPB 09/30/17 15:30 18 15:29 10/01/17 15:34 Levothyroxine Sodium (Synthroid) 88 mcg ACBREAKFAST ORAL 10/01/17 06:30 10/30/17 08:59 10/02/17 06:05 Lisinopril (Zestril) 10 mg DAILY ORAL 10/01/17 09:00 10/30/17 08:59 Nitroglycerin (Ntg) 0.4 mg Every 5 Minutes PRN SL Prn Chest Pain 09/29/17 19:45 10/29/17 19:44 Ondansetron HCl (Zofran) 4 mg Q6H PRN IVP Nausea & Vomiting 09/29/17 19:45 10/29/17 19:44 Oxycodone HCl (Roxicodone) 10 mg BID PRN ORAL severe pain 09/30/17 09:00 10/07/17 08:59 10/02/17 06:06 Polyethylene Glycol (Miralax) 17 gm DAILYPRN PRN ORAL Constipation 09/29/17 19:45 10/29/17 19:44 Rivaroxaban (Xarelto) 20 mg DAILY ORAL 09/30/17 09:00 10/30/17 08:59 10/02/17 08:27 Simethicone (Mylicon) 80 mg QID PRN ORAL GAS PAIN 09/30/17 14:15 10/30/17 14:14 Sotalol HCl (Betapace) 80 mg Q12HR ORAL 09/29/17 21:00 10/29/17 20:59 10/02/17 08:26 Temazepam (Restoril) 15 mg HSPRN PRN ORAL Insomnia 09/29/17 19:45 10/06/17 19:44 10/01/17 21:20 Tizanidine HCl (Zanaflex) 4 mg THREE TIMES A DAY ORAL 09/30/17 09:00 10/30/17 08:59 10/02/17 08:26 Harley Marcos MD Oct 02, 2017 11:10
[2017-10-02 12:00] VITALS: BP 105/65
--- NOTE | 2017-10-02 12:29 | Pulmonology Progress Note ---
Assessment/Plan Problems: (1) ACS (acute coronary syndrome) (2) Ascites (3) Emphysema lung (4) EF < 20% (5) Hepatitis C (6) Right-sided heart failure (7) ICD (implantable cardioverter-defibrillator) in place (8) Cirrhosis Assessment/Plan symptomatic treatment heart rate controlled optimize cardiac meds symptomatic treatment titrate fio2 to sat of 92% limit oral fluid intake. dc planning Subjective ROS Limited/Unobtainable: No Constitutional: Reports: no symptoms HEENT: Repors: no symptoms Respiratory: Reports: no symptoms Allergies: Coded Allergies: HYDROMORPHONE (Verified Allergy, Unknown, 12/28/10) Objective Last 24 Hour Vital Signs Date Time Temp Pulse Resp B/P (MAP) Pulse Ox O2 Delivery O2 Flow Rate FiO2 10/02/17 09:25 97.5 10/02/17 08:28 105/77 10/02/17 08:27 75 10/02/17 08:27 75 105/77 10/02/17 08:26 97.5 10/02/17 08:26 75 105/77 10/02/17 08:00 76 10/02/17 08:00 97.5 75 18 105/77 100 Room Air 21 97.5 10/02/17 04:00 75 10/02/17 04:00 97.5 75 18 98/69 100 Room Air 97.5 10/02/17 00:00 76 10/02/17 00:00 97.3 75 18 102/71 99 Room Air 97.3 10/01/17 21:08 75 100/75 10/01/17 20:59 75 100/75 10/01/17 20:00 75 10/01/17 20:00 97.0 77 19 100/75 100 Room Air 97.0 10/01/17 19:19 81 20 Room Air 21 10/01/17 17:17 97.3 10/01/17 16:00 75 10/01/17 15:49 97.3 76 18 99/71 100 97.3 10/01/17 12:32 97.2 Intake and Output 10/01/17 10/02/17 19:00 07:00 Intake Total 750 ml 800 ml Output Total 1300 ml 2625 ml Balance -550 ml -1825 ml Intake Oral 600 ml 800 ml IV Total 150 ml Output Urine Total 1300 ml 2625 ml Objective had paracentesis, 100 cc removed HEENT: normocephalic, anicteric Respiratory/Chest: chest wall non-tender, lungs clear Abdomen: normal bowel sounds, soft, non tender Genitourinary: normal external genitalia Extremities: no clubbing Neurologic/Psychiatric: 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 II-XII grossly normal Microbiology Date/Time Source Procedure Growth Status 09/30/17 09:28 Ascities Fluid Gram Stain - Final Resulted 09/30/17 09:28 Ascities Fluid Body Fluid Culture - Preliminary NO GROWTH AFTER 24 HOURS Resulted 10/01/17 07:00 Sputum Gram Stain - Final Resulted 10/01/17 07:00 Sputum Sputum Culture Pending Resulted Laboratory Tests 10/02/17 08:20: White Blood Count 4.5L, Red Blood Count 4.05L, Hemoglobin 11.3L, Hematocrit 35.9L, Mean Corpuscular Volume 89, Mean Corpuscular Hemoglobin 27.9, Mean Corpuscular Hemoglobin Concent 31.5L, Red Cell Distribution Width 20.8H, Platelet Count 194, Mean Platelet Volume 6.6, Neutrophils (%) (Auto) 67.9, Lymphocytes (%) (Auto) 16.1L, Monocytes (%) (Auto) 10.8H, Eosinophils (%) (Auto ) 2.3, Basophils (%) (Auto) 3.0H, Sodium Level 134L, Potassium Level 4.1, Chloride Level 99, Carbon Dioxide Level 30, Anion Gap 5, Blood Urea Nitrogen 25H , Creatinine 1.3, Estimat Glomerular Filtration Rate > 60, Glucose Level 118H, Calcium Level 8.6, Phosphorus Level 3.6, Magnesium Level 1.5L Current Medications Medications (Trade) Dose Ordered Sig/Allyn Route PRN Reason Start Time Stop Time Status Last Admin Dose Admin Acetaminophen (Tylenol) 650 mg Q4H PRN ORAL FEVER 09/29/17 19:45 10/29/17 19:44 Albuterol/ Ipratropium (Albuterol/ Ipratropium) 3 ml EVERY 4 HOURS PRN HHN Shortness of Breath 09/29/17 19:45 10/04/17 19:44 Aspirin (ASA) 162 mg DAILY ORAL 09/30/17 09:00 10/30/17 08:59 10/02/17 08:27 Carvedilol (Coreg) 6.25 mg EVERY 12 HOURS ORAL 09/29/17 21:00 10/29/17 20:59 09/30/17 21:00 Digoxin (Lanoxin) 0.125 mg DAILY ORAL 09/30/17 09:00 10/30/17 08:59 10/02/17 08:27 Diltiazem HCl (Cardizem) 10 mg EVERY HOUR PRN IV heart rate more than 120, 09/29/17 19:45 10/29/17 19:44 Furosemide (Lasix) 40 mg EVERY 12 HOURS IV 09/30/17 21:00 10/30/17 20:59 10/02/17 08:24 Gabapentin (Neurontin) 100 mg THREE TIMES A DAY ORAL 09/30/17 09:00 10/30/17 08:59 10/02/17 08:26 Levofloxacin 150 ml @ 100 mls/hr Q24H IVPB 09/30/17 15:30 10/07/17 15:29 10/01/17 15:34 Levothyroxine Sodium (Synthroid) 88 mcg ACBREAKFAST ORAL 10/01/17 06:30 10/30/17 08:59 10/02/17 06:05 Lisinopril (Zestril) 10 mg DAILY ORAL 10/01/17 09:00 10/30/17 08:59 Magnesium Sulfate 100 ml @ 100 mls/hr Q1H IVPB 10/02/17 12:00 10/02/17 13:59 10/02/17 11:48 Nitroglycerin (Ntg) 0.4 mg Every 5 Minutes PRN SL Prn Chest Pain 09/29/17 19:45 10/29/17 19:44 Ondansetron HCl (Zofran) 4 mg Q6H PRN IVP Nausea & Vomiting 09/29/17 19:45 10/29/17 19:44 Oxycodone HCl (Roxicodone) 10 mg BID PRN ORAL severe pain 09/30/17 09:00 10/07/17 08:59 10/02/17 06:06 Polyethylene Glycol (Miralax) 17 gm DAILYPRN PRN ORAL Constipation 09/29/17 19:45 10/29/17 19:44 Rivaroxaban (Xarelto) 20 mg DAILY ORAL 09/30/17 09:00 10/30/17 08:59 10/02/17 08:27 Simethicone (Mylicon) 80 mg QID PRN ORAL GAS PAIN 09/30/17 14:15 10/30/17 14:14 Sotalol HCl (Betapace) 80 mg Q12HR ORAL 09/29/17 21:00 10/29/17 20:59 10/02/17 08:26 Temazepam (Restoril) 15 mg HSPRN PRN ORAL Insomnia 09/29/17 19:45 10/06/17 19:44 10/01/17 21:20 Tizanidine HCl (Zanaflex) 4 mg THREE TIMES A DAY ORAL 09/30/17 09:00 10/30/17 08:59 10/02/17 08:26 Andrzej Chavarria MD Oct 02, 2017 12:29
--- NOTE | 2017-10-02 13:22 | General Progress Note ---
Assessment/Plan Assessment/Plan (1) Lumbar degenerative disc disease (2) Lumbar spondylosis (3) Lumbar radiculopathy (4) Liver Cirrhosis (5) Abdominal pain Pt will be continued on Oxycodone. Pt was d/w Dr. aCrson and he concurred. Subjective Date patient seen: Oct 02, 2017 Time patient seen: 12:15 - pm Allergies: Coded Allergies: HYDROMORPHONE (Verified Allergy, Unknown, 12/28/10) Subjective Constitutional: Reports: weakness, Denies: chills, diaphoresis, fever, malaise , no symptoms, other HEENT: Denies: blurred vision, double vision, ear discharge, ear pain, eye pain , mouth pain, mouth swelling, no symptoms, nose congestion, nose pain, other, tearing, throat pain, throat swelling Cardiovascular: Denies: irregular heart rate, lightheadedness, no symptoms, other, palpitations, syncope Respiratory: Denies: SOB at rest, SOB with excertion, cough, no symptoms, orthopnea, other, shortness of breath, sputum, stridor, wheezing Gastrointestinal/Abdominal: Reports: abdominal pain, Denies: abdomen distended , black stools, blood in stool, constipated, diarrhea, difficulty swallowing, nausea, no symptoms, other, poor appetite, poor fluid intake, rectal bleeding, tarry stools, vomiting Genitourinary: Denies: burning, discharge, flank pain, frequency, hematuria, incontinence, no symptoms, other, pain, urgency Neurologic/Psychiatric: Reports: weakness, Denies: anxiety, depressed, emotional problems, headache, no symptoms, numbness, other, paresthesia, pre- existing deficit, seizure, tingling, tremors Endocrine: Denies: excessive sweating, flushing, increased hunger, increased thirst, increased urine, intolerance to cold, intolerance to heat, no symptoms, other, unexplained weight gain, unexplained weight loss Hematologic/Lymphatic: Denies: anemia, easy bleeding, easy bruising, no symptoms, other Subjective Patient reports that his pain has been well controlled and at a moderate level on the Oxycodone. He has no new complaints. Objective Last 24 Hour Vital Signs Date Time Temp Pulse Resp B/P (MAP) Pulse Ox O2 Delivery O2 Flow Rate FiO2 10/02/17 12:55 97.5 10/02/17 09:25 97.5 10/02/17 08:28 105/77 10/02/17 08:27 75 10/02/17 08:27 75 105/77 10/02/17 08:26 97.5 10/02/17 08:26 75 105/77 10/02/17 08:00 76 10/02/17 08:00 97.5 75 18 105/77 100 Room Air 21 97.5 10/02/17 04:00 75 10/02/17 04:00 97.5 75 18 98/69 100 Room Air 97.5 10/02/17 00:00 76 10/02/17 00:00 97.3 75 18 102/71 99 Room Air 97.3 10/01/17 21:08 75 100/75 10/01/17 20:59 75 100/75 10/01/17 20:00 75 10/01/17 20:00 97.0 77 19 100/75 100 Room Air 97.0 10/01/17 19:19 81 20 Room Air 21 10/01/17 17:17 97.3 10/01/17 16:00 75 10/01/17 15:49 97.3 76 18 99/71 100 97.3 Intake and Output 10/01/17 10/02/17 19:00 07:00 Intake Total 750 ml 800 ml Output Total 1300 ml 2625 ml Balance -550 ml -1825 ml Intake Oral 600 ml 800 ml IV Total 150 ml Output Urine Total 1300 ml 2625 ml Laboratory Tests 10/02/17 08:20: White Blood Count 4.5L, Red Blood Count 4.05L, Hemoglobin 11.3L, Hematocrit 35.9L, Mean Corpuscular Volume 89, Mean Corpuscular Hemoglobin 27.9, Mean Corpuscular Hemoglobin Concent 31.5L, Red Cell Distribution Width 20.8H, Platelet Count 194, Mean Platelet Volume 6.6, Neutrophils (%) (Auto) 67.9, Lymphocytes (%) (Auto) 16.1L, Monocytes (%) (Auto) 10.8H, Eosinophils (%) (Auto ) 2.3, Basophils (%) (Auto) 3.0H, Sodium Level 134L, Potassium Level 4.1, Chloride Level 99, Carbon Dioxide Level 30, Anion Gap 5, Blood Urea Nitrogen 25H , Creatinine 1.3, Estimat Glomerular Filtration Rate > 60, Glucose Level 118H, Calcium Level 8.6, Phosphorus Level 3.6, Magnesium Level 1.5L Height (Feet): 5 Height (Inches): 9.00 Weight (Pounds): 166 Objective General Appearance: no apparent distress, alert EENT: normal ENT inspection, TMs normal Neck: normal alignment, supple Cardiovascular: normal rate, regular rhythm Respiratory/Chest: lungs clear, normal breath sounds Abdomen: tender, distended Extremities: non-tender Edema: edema noted in b/l LE Neurologic: alert, oriented x 3 Skin: warm/dry SARANYA GRAY Oct 02, 2017 13:22
--- NOTE | 2017-10-02 14:51 | Cardiac Electrophysiology PN ---
Assessment/Plan Assessment/Plan 1. Exacerbation of congestive heart failure. Echocardiogram showed ejection fraction still around 20%. Continue Coreg 6.25 mg b.i.d., Lasix 40 mg IV b.i.d., lisinopril 10 mg daily, and Aldactone 50 mg daily. 2. Paroxysmal atrial fibrillation with two prior ablations at [facility] on Coreg and Xarelto 20 mg daily. 3. Status post [employer] ICD implantation with dysfunctional right ventricular lead. 100% V Paced. The patient is scheduled for new right ventricular lead as well as upgrade to biventricular defibrillator on 10/08/17 at [facility] Will be done as out patient after discharge 4. Hepatitis C and ascites, s/p 100 cc paracentesis 5. Renal failure with creatinine of 1.5. EDMAR RN Subjective Subjective Had paracentesis yesterday 100 cc. No chest pain or SOB Objective Last 24 Hour Vital Signs Date Time Temp Pulse Resp B/P (MAP) Pulse Ox O2 Delivery O2 Flow Rate FiO2 10/02/17 13:54 97.5 10/02/17 12:55 97.5 10/02/17 12:00 97.5 76 18 105/65 100 Room Air 21 97.5 10/02/17 08:28 105/77 10/02/17 08:27 75 10/02/17 08:27 75 105/77 10/02/17 08:26 97.5 10/02/17 08:26 75 105/77 10/02/17 08:00 76 10/02/17 08:00 97.5 75 18 105/77 100 Room Air 21 97.5 10/02/17 04:00 75 10/02/17 04:00 97.5 75 18 98/69 100 Room Air 97.5 10/02/17 00:00 76 10/02/17 00:00 97.3 75 18 102/71 99 Room Air 97.3 10/01/17 21:08 75 100/75 10/01/17 20:59 75 100/75 10/01/17 20:00 75 10/01/17 20:00 97.0 77 19 100/75 100 Room Air 97.0 10/01/17 19:19 81 20 Room Air 21 10/01/17 17:17 97.3 10/01/17 16:00 75 10/01/17 15:49 97.3 76 18 99/71 100 97.3 Intake and Output 10/01/17 10/02/17 19:00 07:00 Intake Total 750 ml 800 ml Output Total 1300 ml 2625 ml Balance -550 ml -1825 ml Intake Oral 600 ml 800 ml IV Total 150 ml Output Urine Total 1300 ml 2625 ml Laboratory Tests Test 10/02/17 08:20 White Blood Count 4.5 K/UL (4.8-10.8) L Red Blood Count 4.05 M/UL (4.70-6.10) L Hemoglobin 11.3 G/DL (14.2-18.0) L Hematocrit 35.9 % (42.0-52.0) L Mean Corpuscular Volume 89 FL (80-99) Mean Corpuscular Hemoglobin 27.9 PG (27.0-31.0) Mean Corpuscular Hemoglobin Concent 31.5 G/DL (32.0-36.0) L Red Cell Distribution Width 20.8 % (11.6-14.8) H Platelet Count 194 K/UL (150-450) Mean Platelet Volume 6.6 FL (6.5-10.1) Neutrophils (%) (Auto) 67.9 % (45.0-75.0) Lymphocytes (%) (Auto) 16.1 % (20.0-45.0) L Monocytes (%) (Auto) 10.8 % (1.0-10.0) H Eosinophils (%) (Auto) 2.3 % (0.0-3.0) Basophils (%) (Auto) 3.0 % (0.0-2.0) H Sodium Level 134 MMOL/L (136-145) L Potassium Level 4.1 MMOL/L (3.5-5.1) Chloride Level 99 MMOL/L (98-107) Carbon Dioxide Level 30 MMOL/L (21-32) Anion Gap 5 mmol/L (5-15) Blood Urea Nitrogen 25 mg/dL (7-18) H Creatinine 1.3 MG/DL (0.55-1.30) Estimat Glomerular Filtration Rate > 60 mL/min (>60) Glucose Level 118 MG/DL (74-106) H Calcium Level 8.6 MG/DL (8.5-10.1) Phosphorus Level 3.6 MG/DL (2.5-4.9) Magnesium Level 1.5 MG/DL (1.8-2.4) L Microbiology Date/Time Source Procedure Growth Status 09/30/17 09:28 Ascities Fluid Gram Stain - Final Resulted 09/30/17 09:28 Ascities Fluid Body Fluid Culture - Preliminary NO GROWTH AFTER 24 HOURS Resulted 10/01/17 07:00 Sputum Gram Stain - Final Resulted 10/01/17 07:00 Sputum Sputum Culture Pending Resulted Objective HEAD AND NECK: Positive JVD. LUNGS: Clear. CARDIOVASCULAR: Regular S1 and S2 with 2/6 systolic murmur. ICD left subclavian ABDOMEN: Soft with ascites. EXTREMITIES: A 1+ pitting edema. Rc Zhang MD Oct 02, 2017 14:51
--- NOTE | 2017-10-02 15:57 | General Progress Note ---
Assessment/Plan Problem List: (1) Cirrhosis ICD Codes: K74.60 - Unspecified cirrhosis of liver SNOMED: 92037972 (2) CHF (congestive heart failure) ICD Codes: I50.9 - Heart failure, unspecified SNOMED: 41616412 (3) Pain ICD Codes: R52 - Pain SNOMED: 20400158 (4) UTI (urinary tract infection) ICD Codes: N39.0 - Urinary tract infection, site not specified SNOMED: 87691246 (5) Abdominal pain ICD Codes: R10.9 - Abdominal pain SNOMED: 59013567 Status: stable, progressing, tolerating diet Assessment/Plan abx pain control gi f/u cbc bmp am dc plan Subjective Constitutional: Reports: weakness Allergies: Coded Allergies: HYDROMORPHONE (Verified Allergy, Unknown, 12/28/10) All Systems: reviewed and negative except above Subjective feeling better s/p pericentesis Objective Last 24 Hour Vital Signs Date Time Temp Pulse Resp B/P (MAP) Pulse Ox O2 Delivery O2 Flow Rate FiO2 10/02/17 13:54 97.5 10/02/17 12:55 97.5 10/02/17 12:00 75 10/02/17 12:00 97.5 76 18 105/65 100 Room Air 21 97.5 10/02/17 08:28 105/77 10/02/17 08:27 75 10/02/17 08:27 75 105/77 10/02/17 08:26 97.5 10/02/17 08:26 75 105/77 10/02/17 08:00 76 10/02/17 08:00 97.5 75 18 105/77 100 Room Air 21 97.5 10/02/17 04:00 75 10/02/17 04:00 97.5 75 18 98/69 100 Room Air 97.5 10/02/17 00:00 76 10/02/17 00:00 97.3 75 18 102/71 99 Room Air 97.3 10/01/17 21:08 75 100/75 10/01/17 20:59 75 100/75 10/01/17 20:00 75 10/01/17 20:00 97.0 77 19 100/75 100 Room Air 97.0 10/01/17 19:19 81 20 Room Air 21 10/01/17 17:17 97.3 10/01/17 16:00 75 Intake and Output 10/01/17 10/02/17 19:00 07:00 Intake Total 750 ml 800 ml Output Total 1300 ml 2625 ml Balance -550 ml -1825 ml Intake Oral 600 ml 800 ml IV Total 150 ml Output Urine Total 1300 ml 2625 ml Laboratory Tests 10/02/17 08:20: White Blood Count 4.5L, Red Blood Count 4.05L, Hemoglobin 11.3L, Hematocrit 35.9L, Mean Corpuscular Volume 89, Mean Corpuscular Hemoglobin 27.9, Mean Corpuscular Hemoglobin Concent 31.5L, Red Cell Distribution Width 20.8H, Platelet Count 194, Mean Platelet Volume 6.6, Neutrophils (%) (Auto) 67.9, Lymphocytes (%) (Auto) 16.1L, Monocytes (%) (Auto) 10.8H, Eosinophils (%) (Auto ) 2.3, Basophils (%) (Auto) 3.0H, Sodium Level 134L, Potassium Level 4.1, Chloride Level 99, Carbon Dioxide Level 30, Anion Gap 5, Blood Urea Nitrogen 25H , Creatinine 1.3, Estimat Glomerular Filtration Rate > 60, Glucose Level 118H, Calcium Level 8.6, Phosphorus Level 3.6, Magnesium Level 1.5L Height (Feet): 5 Height (Inches): 9.00 Weight (Pounds): 166 General Appearance: lethargic EENT: normal ENT inspection Neck: normal alignment Cardiovascular: normal peripheral pulses, normal rate, regular rhythm Respiratory/Chest: chest wall non-tender, lungs clear, normal breath sounds Abdomen: non tender, soft, decreased bowel sounds Extremities: normal range of motion Edema: no edema noted Arm (L), no edema noted Arm (R), no edema noted Leg (L), no edema noted Leg (R), no edema noted Pedal (L), no edema noted Pedal (R), no edema noted Generalized Neurologic: responsive, motor weakness Skin: normal pigmentation, warm/dry ROCÍO MOJICA Oct 02, 2017 15:57
[2017-10-02 16:00] VITALS: BP 96/70
[2017-10-02 20:00] VITALS: BP 105/56
[2017-10-03] VITALS: BP 97/70
[2017-10-03] MEDS: oxyCODONE 5mg IR tab ORAL PRN (02:49)
[2017-10-03 04:00] VITALS: BP 90/62
[2017-10-03 06:39] LABS: EOSINOPHILS % (AUTO) 3.1 % (0.0-3.0); HEMATOCRIT 37.6 % (42.0-52.0); HEMOGLOBIN 11.7 G/DL (14.2-18.0); LYMPHOCYTES % (AUTO) 24.3 % (20.0-45.0); MEAN CORPUSCULAR VOLUME 90 FL (80-99); MONOCYTES % (AUTO) 12.4 % (1.0-10.0); NEUTROPHILS % (AUTO) 58.2 % (45.0-75.0); PLATELET COUNT 221 K/UL (150-450); RED CELL DISTRIBUTION WIDTH 21.1 % (11.6-14.8); WHITE BLOOD COUNT 3.5 K/UL (4.8-10.8)
[2017-10-03 06:54] LABS: ANION GAP 7 mmol/L (5-15); BLOOD UREA NITROGEN 23 mg/dL (7-18); CALCIUM 8.5 MG/DL (8.5-10.1); CARBON DIOXIDE 32 MMOL/L (21-32); CHLORIDE 96 MMOL/L (98-107); CREATININE 1.5 MG/DL (0.55-1.30); SODIUM 134 MMOL/L (136-145)
[2017-10-03 08:00] VITALS: BP 108/75
[2017-10-03] MEDS: Xarelto 10mg tab ORAL SCH (08:03)
[2017-10-03] MEDS: Digoxin 0.125mg tab ORAL SCH (08:04)
[2017-10-03] MEDS: Sotalol 80mg tab ORAL SCH (08:05)
[2017-10-03] MEDS: Carvedilol 6.25mg Tab ORAL SCH (08:05)
[2017-10-03] MEDS: Aspirin Baby 81mg ORAL SCH (08:05)
[2017-10-03] MEDS: Lisinopril 10mg tab ORAL SCH (08:06)
--- NOTE | 2017-10-03 09:58 | Nephrology Progress Note ---
Assessment/Plan Assessment/Plan 1. CKD 3A- Cr stable between 1.3-1.5. Will f/u with me in 2 weeks post discharge - ATN multifactorial in nature ( ischemic ATN from hypotension/perfusion, cardiorenal, low EF 15%, NSAIDs, aldactone/MARINA-I) - Renal US negative, avoid NSAIDS and hypotension while on Coreg and Lisinopril 2. Hypotension- hold MARINA-I if SBP <105. Cr at 1.3-1.5 3. ACS/Chest Pain- management per cardiology. Resolved. 4. SOB- Resolved. On lasix 5. Hypothyroid- synthroid 6. CHD/Pulm HTN/AFib- mod to severe mitral and tricuspid regurgitation. Pulm HTN and EF 15% - per cardiology 7.Paroxysmal atrial fibrillation with two prior ablations at [facility] on Coreg and Xarelto 20 mg daily. - has cardiac procedure scheduled at [facility] on FridayOctober 08 Subjective Date patient seen: Oct 03, 2017 Time patient seen: 09:51 ROS Limited/Unobtainable: No Constitutional: Reports: no symptoms HEENT: Reports: no symptoms Cardiovascular: Reports: other - breathing much improved Respiratory: Reports: no symptoms Gastrointestinal/Abdominal: Reports: no symptoms Genitourinary: Reports: no symptoms Neurologic/Psychiatric: Reports: no symptoms Endocrine: Reports: no symptoms Allergies: Coded Allergies: HYDROMORPHONE (Verified Allergy, Unknown, 12/28/10) All Systems: reviewed and negative except above Subjective Patient chest pain and SOB resolved. Feels much better Objective Last 24 Hour Vital Signs Date Time Temp Pulse Resp B/P (MAP) Pulse Ox O2 Delivery O2 Flow Rate FiO2 10/03/17 08:06 108/74 10/03/17 08:05 78 108/74 10/03/17 08:05 78 108/74 10/03/17 08:04 97.4 10/03/17 08:04 78 10/03/17 08:00 97.2 76 20 108/75 96 Room Air 21 97.2 10/03/17 08:00 75 10/03/17 04:00 97.4 76 20 90/62 96 Room Air 97.4 10/03/17 04:00 75 10/03/17 00:00 97.3 75 20 97/70 98 Room Air 97.3 10/03/17 00:00 76 10/02/17 20:52 75 105/76 10/02/17 20:51 75 105/76 10/02/17 20:01 75 18 Room Air 21 10/02/17 20:00 75 10/02/17 20:00 97.0 76 20 105/56 99 Room Air 97.0 10/02/17 18:16 97.5 10/02/17 17:17 97.5 10/02/17 16:00 97.5 76 16 96/70 100 Room Air 21 97.5 10/02/17 16:00 76 10/02/17 14:26 95 16 Room Air 21 10/02/17 12:55 97.5 10/02/17 12:00 75 10/02/17 12:00 97.5 76 18 105/65 100 Room Air 21 97.5 Intake and Output 10/02/17 10/03/17 19:00 07:00 Intake Total 240 ml 480 ml Output Total 2600 ml Balance 240 ml -2120 ml Intake Oral 240 ml 480 ml Output Urine Total 2600 ml Laboratory Tests 10/03/17 06:00: White Blood Count 3.5L, Red Blood Count 4.20L, Hemoglobin 11.7L, Hematocrit 37.6L, Mean Corpuscular Volume 90, Mean Corpuscular Hemoglobin 27.8, Mean Corpuscular Hemoglobin Concent 31.0L, Red Cell Distribution Width 21.1H, Platelet Count 221, Mean Platelet Volume 6.3L, Neutrophils (%) (Auto) 58.2, Lymphocytes (%) (Auto) 24.3, Monocytes (%) (Auto) 12.4H, Eosinophils (%) (Auto) 3.1H, Basophils (%) (Auto) 2.0, Sodium Level 134L, Potassium Level 4.0, Chloride Level 96L, Carbon Dioxide Level 32, Anion Gap 7, Blood Urea Nitrogen 23H, Creatinine 1.5H, Estimat Glomerular Filtration Rate 57.1, Glucose Level 99 , Calcium Level 8.5 Height (Feet): 5 Height (Inches): 9.00 Weight (Pounds): 166 General Appearance: WD/WN, no apparent distress EENT: PERRL/EOMI, normal ENT inspection Neck: non-tender, normal alignment Cardiovascular: normal peripheral pulses, normal rate Respiratory/Chest: chest wall non-tender, lungs clear, normal breath sounds Abdomen: normal bowel sounds, non tender Extremities: normal range of motion, non-tender Edema: no edema noted Arm (L), no edema noted Arm (R), no edema noted Leg (L), no edema noted Leg (R), no edema noted Pedal (L), no edema noted Pedal (R), no edema noted Generalized Sherwin Hawkins M.D. Oct 03, 2017 09:58
--- NOTE | 2017-10-03 10:10 | GI Progress Note ---
Assessment/Plan Problems: (1) Hypothyroidism ICD Codes: E03.9 - Hypothyroidism SNOMED: 73216983 (2) Ascites ICD Codes: R18.8 - Ascites SNOMED: 384566245 (3) Right-sided heart failure ICD Codes: I50.9 - Right-sided heart failure SNOMED: 640836773 (4) EF < 20% (5) CHF (congestive heart failure) ICD Codes: I50.9 - Heart failure, unspecified SNOMED: 28125218 (6) Abdominal pain ICD Codes: R10.9 - Abdominal pain SNOMED: 46812792 Status: stable, unchanged Status Narrative Discussed with Dr. Ryan. Assessment/Plan hx of Hep C in 2014 s/p tx >> hep panel redrawn in 2016 was negative s/p colonoscopy with one polyp 06/26/16 No evidence of cirrhosis s/p paracentesis yielding 100cc symptomatic treatment, fu cardiology recs diuresis adv low sodium diet ppi pain mgmt fu labs Subjective Subjective abdominal discomfort Objective Last 24 Hour Vital Signs Date Time Temp Pulse Resp B/P (MAP) Pulse Ox O2 Delivery O2 Flow Rate FiO2 10/03/17 08:06 108/74 10/03/17 08:05 78 108/74 10/03/17 08:05 78 108/74 10/03/17 08:04 97.4 10/03/17 08:04 78 10/03/17 08:00 97.2 76 20 108/75 96 Room Air 21 97.2 10/03/17 08:00 75 10/03/17 04:00 97.4 76 20 90/62 96 Room Air 97.4 10/03/17 04:00 75 10/03/17 00:00 97.3 75 20 97/70 98 Room Air 97.3 10/03/17 00:00 76 10/02/17 20:52 75 105/76 10/02/17 20:51 75 105/76 10/02/17 20:01 75 18 Room Air 21 10/02/17 20:00 75 10/02/17 20:00 97.0 76 20 105/56 99 Room Air 97.0 10/02/17 18:16 97.5 10/02/17 17:17 97.5 10/02/17 16:00 97.5 76 16 96/70 100 Room Air 21 97.5 10/02/17 16:00 76 10/02/17 14:26 95 16 Room Air 21 10/02/17 12:55 97.5 10/02/17 12:00 75 10/02/17 12:00 97.5 76 18 105/65 100 Room Air 21 97.5 Intake and Output 10/02/17 10/03/17 19:00 07:00 Intake Total 240 ml 480 ml Output Total 2600 ml Balance 240 ml -2120 ml Intake Oral 240 ml 480 ml Output Urine Total 2600 ml Laboratory Tests Test 10/03/17 06:00 White Blood Count 3.5 K/UL (4.8-10.8) L Red Blood Count 4.20 M/UL (4.70-6.10) L Hemoglobin 11.7 G/DL (14.2-18.0) L Hematocrit 37.6 % (42.0-52.0) L Mean Corpuscular Volume 90 FL (80-99) Mean Corpuscular Hemoglobin 27.8 PG (27.0-31.0) Mean Corpuscular Hemoglobin Concent 31.0 G/DL (32.0-36.0) L Red Cell Distribution Width 21.1 % (11.6-14.8) H Platelet Count 221 K/UL (150-450) Mean Platelet Volume 6.3 FL (6.5-10.1) L Neutrophils (%) (Auto) 58.2 % (45.0-75.0) Lymphocytes (%) (Auto) 24.3 % (20.0-45.0) Monocytes (%) (Auto) 12.4 % (1.0-10.0) H Eosinophils (%) (Auto) 3.1 % (0.0-3.0) H Basophils (%) (Auto) 2.0 % (0.0-2.0) Sodium Level 134 MMOL/L (136-145) L Potassium Level 4.0 MMOL/L (3.5-5.1) Chloride Level 96 MMOL/L (98-107) L Carbon Dioxide Level 32 MMOL/L (21-32) Anion Gap 7 mmol/L (5-15) Blood Urea Nitrogen 23 mg/dL (7-18) H Creatinine 1.5 MG/DL (0.55-1.30) H Estimat Glomerular Filtration Rate 57.1 mL/min (>60) Glucose Level 99 MG/DL (74-106) Calcium Level 8.5 MG/DL (8.5-10.1) Height (Feet): 5 Height (Inches): 9.00 Weight (Pounds): 166 General Appearance: WD/WN, no apparent distress, alert Cardiovascular: normal rate Respiratory/Chest: normal breath sounds, no respiratory distress Abdominal Exam: normal bowel sounds, non tender, soft Extremities: normal range of motion, non-tender Chanel Bird N.P. Oct 03, 2017 10:10
--- NOTE | 2017-10-03 10:27 | General Progress Note ---
Assessment/Plan Assessment/Plan (1) Lumbar degenerative disc disease (2) Lumbar spondylosis (3) Lumbar radiculopathy (4) Liver Cirrhosis (5) Abdominal pain Pt will be continued on Oxycodone. Pt was d/w Dr. Carson and he concurred. Subjective Date patient seen: Oct 03, 2017 Time patient seen: 10:00 - am Allergies: Coded Allergies: HYDROMORPHONE (Verified Allergy, Unknown, 12/28/10) Subjective Constitutional: Reports: weakness, Denies: chills, diaphoresis, fever, malaise , no symptoms, other HEENT: Denies: blurred vision, double vision, ear discharge, ear pain, eye pain , mouth pain, mouth swelling, no symptoms, nose congestion, nose pain, other, tearing, throat pain, throat swelling Cardiovascular: Denies: irregular heart rate, lightheadedness, no symptoms, other, palpitations, syncope Respiratory: Denies: SOB at rest, SOB with excertion, cough, no symptoms, orthopnea, other, shortness of breath, sputum, stridor, wheezing Gastrointestinal/Abdominal: Reports: abdominal pain, Denies: abdomen distended , black stools, blood in stool, constipated, diarrhea, difficulty swallowing, nausea, no symptoms, other, poor appetite, poor fluid intake, rectal bleeding, tarry stools, vomiting Genitourinary: Denies: burning, discharge, flank pain, frequency, hematuria, incontinence, no symptoms, other, pain, urgency Neurologic/Psychiatric: Reports: weakness, Denies: anxiety, depressed, emotional problems, headache, no symptoms, numbness, other, paresthesia, pre- existing deficit, seizure, tingling, tremors Endocrine: Denies: excessive sweating, flushing, increased hunger, increased thirst, increased urine, intolerance to cold, intolerance to heat, no symptoms, other, unexplained weight gain, unexplained weight loss Hematologic/Lymphatic: Denies: anemia, easy bleeding, easy bruising, no symptoms, other Subjective Patient has been having continued pain which can be severe as per patient. He explains that the Oxycodone continues to help reduce his pain. No new complaints at this time. Objective Last 24 Hour Vital Signs Date Time Temp Pulse Resp B/P (MAP) Pulse Ox O2 Delivery O2 Flow Rate FiO2 10/03/17 09:03 97.4 10/03/17 08:06 108/74 10/03/17 08:05 78 108/74 10/03/17 08:05 78 108/74 10/03/17 08:04 97.4 10/03/17 08:04 78 10/03/17 08:00 97.2 76 20 108/75 96 Room Air 21 97.2 10/03/17 08:00 75 10/03/17 04:00 97.4 76 20 90/62 96 Room Air 97.4 10/03/17 04:00 75 10/03/17 00:00 97.3 75 20 97/70 98 Room Air 97.3 10/03/17 00:00 76 10/02/17 20:52 75 105/76 10/02/17 20:51 75 105/76 10/02/17 20:01 75 18 Room Air 21 10/02/17 20:00 75 10/02/17 20:00 97.0 76 20 105/56 99 Room Air 97.0 10/02/17 17:17 97.5 10/02/17 16:00 97.5 76 16 96/70 100 Room Air 21 97.5 10/02/17 16:00 76 10/02/17 14:26 95 16 Room Air 21 10/02/17 12:55 97.5 10/02/17 12:00 75 10/02/17 12:00 97.5 76 18 105/65 100 Room Air 21 97.5 Intake and Output 10/02/17 10/03/17 19:00 07:00 Intake Total 240 ml 480 ml Output Total 2600 ml Balance 240 ml -2120 ml Intake Oral 240 ml 480 ml Output Urine Total 2600 ml Laboratory Tests 10/03/17 06:00: White Blood Count 3.5L, Red Blood Count 4.20L, Hemoglobin 11.7L, Hematocrit 37.6L, Mean Corpuscular Volume 90, Mean Corpuscular Hemoglobin 27.8, Mean Corpuscular Hemoglobin Concent 31.0L, Red Cell Distribution Width 21.1H, Platelet Count 221, Mean Platelet Volume 6.3L, Neutrophils (%) (Auto) 58.2, Lymphocytes (%) (Auto) 24.3, Monocytes (%) (Auto) 12.4H, Eosinophils (%) (Auto) 3.1H, Basophils (%) (Auto) 2.0, Sodium Level 134L, Potassium Level 4.0, Chloride Level 96L, Carbon Dioxide Level 32, Anion Gap 7, Blood Urea Nitrogen 23H, Creatinine 1.5H, Estimat Glomerular Filtration Rate 57.1, Glucose Level 99 , Calcium Level 8.5 Height (Feet): 5 Height (Inches): 9.00 Weight (Pounds): 166 Objective General Appearance: no apparent distress, alert EENT: normal ENT inspection, TMs normal Neck: normal alignment, supple Cardiovascular: normal rate, regular rhythm Respiratory/Chest: lungs clear, normal breath sounds Abdomen: tender, distended Extremities: non-tender Edema: edema noted in b/l LE Neurologic: alert, oriented x 3 Skin: warm/dry SARANYA GRAY Oct 03, 2017 10:27
--- NOTE | 2017-10-03 11:36 | Infectious Diseases Prog Note ---
Assessment/Plan Assessment/Plan ASSESSMENT: The patient is a 62-year-old male with: Bronchitis /community-acquired pneumonia cough improved Chest x-ray: cardiomegaly, no acute process. Leukopenia due to probably cirrhosis. History of hepatitis C status post treatment HIV Neg no evid of peritonitis 09/30 SP paracentesis CKD : US: Normal kidneys. Negative for hydronephrosis Congestive heart failure with ejection fraction of 20%. SP Chest pain. Hypothyroidism. CAD. CHF. Status post pacemaker. History of cirrhosis. Ascites PLAN: cont the patient on Levaquin day # 4 /5 Monitor CBC. Monitor BMP. Monitor cultures (peritoneal , sputum). Monitor chest x-ray Subjective Constitutional: Denies: no symptoms, fever, chills, fatigue, anorexia, drenching sweats, other Allergies: Coded Allergies: HYDROMORPHONE (Verified Allergy, Unknown, 12/28/10) Subjective Afebrile Objective Vital Signs Last 24 Hour Vital Signs Date Time Temp Pulse Resp B/P (MAP) Pulse Ox O2 Delivery O2 Flow Rate FiO2 10/03/17 09:03 97.4 10/03/17 08:06 108/74 10/03/17 08:05 78 108/74 10/03/17 08:05 78 108/74 10/03/17 08:04 97.4 10/03/17 08:04 78 10/03/17 08:00 97.2 76 20 108/75 96 Room Air 21 97.2 10/03/17 08:00 75 10/03/17 04:00 97.4 76 20 90/62 96 Room Air 97.4 10/03/17 04:00 75 10/03/17 00:00 97.3 75 20 97/70 98 Room Air 97.3 10/03/17 00:00 76 10/02/17 20:52 75 105/76 10/02/17 20:51 75 105/76 10/02/17 20:01 75 18 Room Air 21 10/02/17 20:00 75 10/02/17 20:00 97.0 76 20 105/56 99 Room Air 97.0 10/02/17 17:17 97.5 10/02/17 16:00 97.5 76 16 96/70 100 Room Air 21 97.5 10/02/17 16:00 76 10/02/17 14:26 95 16 Room Air 21 10/02/17 12:55 97.5 10/02/17 12:00 75 10/02/17 12:00 97.5 76 18 105/65 100 Room Air 21 97.5 Height (Feet): 5 Height (Inches): 9.00 Weight (Pounds): 166 HEENT: anicteric Respiratory/Chest: no respiratory distress Cardiovascular: normal rate Abdomen: no organomegaly Microbiology Date/Time Source Procedure Growth Status 10/01/17 07:00 Sputum Gram Stain - Final Resulted 10/01/17 07:00 Sputum Sputum Culture - Preliminary NORMAL UPPER RESPIRATORY ALFONSO AT 24 ... Resulted Laboratory Tests Test 10/03/17 06:00 White Blood Count 3.5 K/UL (4.8-10.8) L Red Blood Count 4.20 M/UL (4.70-6.10) L Hemoglobin 11.7 G/DL (14.2-18.0) L Hematocrit 37.6 % (42.0-52.0) L Mean Corpuscular Volume 90 FL (80-99) Mean Corpuscular Hemoglobin 27.8 PG (27.0-31.0) Mean Corpuscular Hemoglobin Concent 31.0 G/DL (32.0-36.0) L Red Cell Distribution Width 21.1 % (11.6-14.8) H Platelet Count 221 K/UL (150-450) Mean Platelet Volume 6.3 FL (6.5-10.1) L Neutrophils (%) (Auto) 58.2 % (45.0-75.0) Lymphocytes (%) (Auto) 24.3 % (20.0-45.0) Monocytes (%) (Auto) 12.4 % (1.0-10.0) H Eosinophils (%) (Auto) 3.1 % (0.0-3.0) H Basophils (%) (Auto) 2.0 % (0.0-2.0) Sodium Level 134 MMOL/L (136-145) L Potassium Level 4.0 MMOL/L (3.5-5.1) Chloride Level 96 MMOL/L (98-107) L Carbon Dioxide Level 32 MMOL/L (21-32) Anion Gap 7 mmol/L (5-15) Blood Urea Nitrogen 23 mg/dL (7-18) H Creatinine 1.5 MG/DL (0.55-1.30) H Estimat Glomerular Filtration Rate 57.1 mL/min (>60) Glucose Level 99 MG/DL (74-106) Calcium Level 8.5 MG/DL (8.5-10.1) Current Medications Medications (Trade) Dose Ordered Sig/Allyn Route PRN Reason Start Time Stop Time Status Last Admin Dose Admin Acetaminophen (Tylenol) 650 mg Q4H PRN ORAL FEVER 09/29/17 19:45 10/29/17 19:44 Albuterol/ Ipratropium (Albuterol/ Ipratropium) 3 ml EVERY 4 HOURS PRN HHN Shortness of Breath 09/29/17 19:45 10/04/17 19:44 Aspirin (ASA) 162 mg DAILY ORAL 09/30/17 09:00 10/30/17 08:59 10/03/17 08:05 Carvedilol (Coreg) 6.25 mg EVERY 12 HOURS ORAL 09/29/17 21:00 10/29/17 20:59 10/02/17 20:51 Digoxin (Lanoxin) 0.125 mg DAILY ORAL 09/30/17 09:00 10/30/17 08:59 10/03/17 08:04 Diltiazem HCl (Cardizem) 10 mg EVERY HOUR PRN IV heart rate more than 120, 09/29/17 19:45 10/29/17 19:44 Furosemide (Lasix) 40 mg EVERY 12 HOURS IV 09/30/17 21:00 10/30/17 20:59 10/03/17 08:03 Gabapentin (Neurontin) 100 mg THREE TIMES A DAY ORAL 09/30/17 09:00 10/30/17 08:59 10/03/17 08:05 Levofloxacin 150 ml @ 100 mls/hr Q24H IVPB 09/30/17 15:30 10/07/17 15:29 10/02/17 14:58 Levothyroxine Sodium (Synthroid) 88 mcg ACBREAKFAST ORAL 10/01/17 06:30 10/30/17 08:59 10/03/17 05:53 Lisinopril (Zestril) 10 mg DAILY ORAL 10/01/17 09:00 10/30/17 08:59 Nitroglycerin (Ntg) 0.4 mg Every 5 Minutes PRN SL Prn Chest Pain 09/29/17 19:45 10/29/17 19:44 Ondansetron HCl (Zofran) 4 mg Q6H PRN IVP Nausea & Vomiting 09/29/17 19:45 10/29/17 19:44 10/03/17 05:53 Oxycodone HCl (Roxicodone) 10 mg Q6H PRN ORAL Severe Pain (Pain Scale 7-10) 10/02/17 12:45 10/09/17 12:44 10/03/17 02:49 Polyethylene Glycol (Miralax) 17 gm DAILYPRN PRN ORAL Constipation 09/29/17 19:45 10/29/17 19:44 Rivaroxaban (Xarelto) 20 mg DAILY ORAL 09/30/17 09:00 10/30/17 08:59 10/03/17 08:03 Simethicone (Mylicon) 80 mg QID PRN ORAL GAS PAIN 09/30/17 14:15 10/30/17 14:14 Sotalol HCl (Betapace) 80 mg Q12HR ORAL 09/29/17 21:00 10/29/17 20:59 10/03/17 08:05 Temazepam (Restoril) 15 mg HSPRN PRN ORAL Insomnia 09/29/17 19:45 10/06/17 19:44 10/02/17 20:53 Tizanidine HCl (Zanaflex) 4 mg THREE TIMES A DAY ORAL 09/30/17 09:00 10/30/17 08:59 10/03/17 08:04 Harley Marcos MD Oct 03, 2017 11:36
[2017-10-03 12:00] VITALS: BP 102/76
--- NOTE | 2017-10-03 12:11 | Pulmonology Progress Note ---
Assessment/Plan Problems: (1) ACS (acute coronary syndrome) (2) Ascites (3) Emphysema lung (4) EF < 20% (5) Hepatitis C (6) Right-sided heart failure (7) ICD (implantable cardioverter-defibrillator) in place (8) Cirrhosis Assessment/Plan all noted awaiting clearance from consultants to dc home symptomatic treatment heart rate controlled optimize cardiac meds symptomatic treatment titrate fio2 to sat of 92% limit oral fluid intake. dc planning Subjective ROS Limited/Unobtainable: No Constitutional: Reports: no symptoms HEENT: Repors: no symptoms Respiratory: Reports: no symptoms Allergies: Coded Allergies: HYDROMORPHONE (Verified Allergy, Unknown, 12/28/10) Objective Last 24 Hour Vital Signs Date Time Temp Pulse Resp B/P (MAP) Pulse Ox O2 Delivery O2 Flow Rate FiO2 10/03/17 12:00 97.4 76 20 102/76 96 Room Air 21 97.4 10/03/17 09:03 97.4 10/03/17 08:06 108/74 10/03/17 08:05 78 108/74 10/03/17 08:05 78 108/74 10/03/17 08:04 97.4 10/03/17 08:04 78 10/03/17 08:00 97.2 76 20 108/75 96 Room Air 21 97.2 10/03/17 08:00 75 10/03/17 04:00 97.4 76 20 90/62 96 Room Air 97.4 10/03/17 04:00 75 10/03/17 00:00 97.3 75 20 97/70 98 Room Air 97.3 10/03/17 00:00 76 10/02/17 20:52 75 105/76 10/02/17 20:51 75 105/76 10/02/17 20:01 75 18 Room Air 21 10/02/17 20:00 75 10/02/17 20:00 97.0 76 20 105/56 99 Room Air 97.0 10/02/17 17:17 97.5 10/02/17 16:00 97.5 76 16 96/70 100 Room Air 21 97.5 10/02/17 16:00 76 10/02/17 14:26 95 16 Room Air 21 10/02/17 12:55 97.5 Intake and Output 10/02/17 10/03/17 19:00 07:00 Intake Total 240 ml 480 ml Output Total 2600 ml Balance 240 ml -2120 ml Intake Oral 240 ml 480 ml Output Urine Total 2600 ml Objective no new complains General Appearance: WD/WN HEENT: normocephalic Respiratory/Chest: chest wall non-tender, lungs clear Cardiovascular: normal peripheral pulses, normal rate Abdomen: normal bowel sounds, soft, non tender Genitourinary: normal external genitalia Extremities: no cyanosis Skin: no rash 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 Resulted Laboratory Tests 10/03/17 06:00: White Blood Count 3.5L, Red Blood Count 4.20L, Hemoglobin 11.7L, Hematocrit 37.6L, Mean Corpuscular Volume 90, Mean Corpuscular Hemoglobin 27.8, Mean Corpuscular Hemoglobin Concent 31.0L, Red Cell Distribution Width 21.1H, Platelet Count 221, Mean Platelet Volume 6.3L, Neutrophils (%) (Auto) 58.2, Lymphocytes (%) (Auto) 24.3, Monocytes (%) (Auto) 12.4H, Eosinophils (%) (Auto) 3.1H, Basophils (%) (Auto) 2.0, Sodium Level 134L, Potassium Level 4.0, Chloride Level 96L, Carbon Dioxide Level 32, Anion Gap 7, Blood Urea Nitrogen 23H, Creatinine 1.5H, Estimat Glomerular Filtration Rate 57.1, Glucose Level 99 , Calcium Level 8.5 Current Medications Medications (Trade) Dose Ordered Sig/Allyn Route PRN Reason Start Time Stop Time Status Last Admin Dose Admin Acetaminophen (Tylenol) 650 mg Q4H PRN ORAL FEVER 09/29/17 19:45 10/29/17 19:44 Albuterol/ Ipratropium (Albuterol/ Ipratropium) 3 ml EVERY 4 HOURS PRN HHN Shortness of Breath 09/29/17 19:45 10/04/17 19:44 Aspirin (ASA) 162 mg DAILY ORAL 09/30/17 09:00 10/30/17 08:59 10/03/17 08:05 Carvedilol (Coreg) 6.25 mg EVERY 12 HOURS ORAL 09/29/17 21:00 10/29/17 20:59 10/02/17 20:51 Digoxin (Lanoxin) 0.125 mg DAILY ORAL 09/30/17 09:00 10/30/17 08:59 10/03/17 08:04 Diltiazem HCl (Cardizem) 10 mg EVERY HOUR PRN IV heart rate more than 120, 09/29/17 19:45 10/29/17 19:44 Furosemide (Lasix) 40 mg EVERY 12 HOURS IV 09/30/17 21:00 10/30/17 20:59 10/03/17 08:03 Gabapentin (Neurontin) 100 mg THREE TIMES A DAY ORAL 09/30/17 09:00 10/30/17 08:59 10/03/17 08:05 Levofloxacin 150 ml @ 100 mls/hr Q24H IVPB 09/30/17 15:30 10/07/17 15:29 10/02/17 14:58 Levothyroxine Sodium (Synthroid) 88 mcg ACBREAKFAST ORAL 10/01/17 06:30 10/30/17 08:59 10/03/17 05:53 Lisinopril (Zestril) 10 mg DAILY ORAL 10/01/17 09:00 10/30/17 08:59 Nitroglycerin (Ntg) 0.4 mg Every 5 Minutes PRN SL Prn Chest Pain 09/29/17 19:45 10/29/17 19:44 Ondansetron HCl (Zofran) 4 mg Q6H PRN IVP Nausea & Vomiting 09/29/17 19:45 10/29/17 19:44 10/03/17 05:53 Oxycodone HCl (Roxicodone) 10 mg Q6H PRN ORAL Severe Pain (Pain Scale 7-10) 10/02/17 12:45 10/09/17 12:44 10/03/17 02:49 Polyethylene Glycol (Miralax) 17 gm DAILYPRN PRN ORAL Constipation 09/29/17 19:45 10/29/17 19:44 Rivaroxaban (Xarelto) 20 mg DAILY ORAL 09/30/17 09:00 10/30/17 08:59 10/03/17 08:03 Simethicone (Mylicon) 80 mg QID PRN ORAL GAS PAIN 09/30/17 14:15 10/30/17 14:14 Sotalol HCl (Betapace) 80 mg Q12HR ORAL 09/29/17 21:00 10/29/17 20:59 10/03/17 08:05 Temazepam (Restoril) 15 mg HSPRN PRN ORAL Insomnia 09/29/17 19:45 10/06/17 19:44 10/02/17 20:53 Tizanidine HCl (Zanaflex) 4 mg THREE TIMES A DAY ORAL 09/30/17 09:00 10/30/17 08:59 10/03/17 08:04 Andrzej Chavarria MD Oct 03, 2017 12:11
--- NOTE | 2017-10-03 12:44 | General Progress Note ---
Assessment/Plan Problem List: (1) Cirrhosis ICD Codes: K74.60 - Unspecified cirrhosis of liver SNOMED: 44656884 (2) CHF (congestive heart failure) ICD Codes: I50.9 - Heart failure, unspecified SNOMED: 49723358 (3) Pain ICD Codes: R52 - Pain SNOMED: 43071245 (4) UTI (urinary tract infection) ICD Codes: N39.0 - Urinary tract infection, site not specified SNOMED: 41894635 (5) Abdominal pain ICD Codes: R10.9 - Abdominal pain SNOMED: 83833425 Status: stable, progressing, tolerating diet Assessment/Plan abx pain control gi f/u cbc bmp am dc if clear Subjective Constitutional: Reports: weakness Allergies: Coded Allergies: HYDROMORPHONE (Verified Allergy, Unknown, 12/28/10) All Systems: reviewed and negative except above Subjective feeling better s/p pericentesis Objective Last 24 Hour Vital Signs Date Time Temp Pulse Resp B/P (MAP) Pulse Ox O2 Delivery O2 Flow Rate FiO2 10/03/17 12:17 97.4 10/03/17 12:00 97.4 76 20 102/76 96 Room Air 21 97.4 10/03/17 10:17 77 16 Room Air 21 10/03/17 09:03 97.4 10/03/17 08:06 108/74 10/03/17 08:05 78 108/74 10/03/17 08:05 78 108/74 10/03/17 08:04 97.4 10/03/17 08:04 78 10/03/17 08:00 97.2 76 20 108/75 96 Room Air 21 97.2 10/03/17 08:00 75 10/03/17 04:00 97.4 76 20 90/62 96 Room Air 97.4 10/03/17 04:00 75 10/03/17 00:00 97.3 75 20 97/70 98 Room Air 97.3 10/03/17 00:00 76 10/02/17 20:52 75 105/76 10/02/17 20:51 75 105/76 10/02/17 20:01 75 18 Room Air 21 10/02/17 20:00 75 10/02/17 20:00 97.0 76 20 105/56 99 Room Air 97.0 10/02/17 17:17 97.5 10/02/17 16:00 97.5 76 16 96/70 100 Room Air 21 97.5 10/02/17 16:00 76 10/02/17 14:26 95 16 Room Air 21 10/02/17 12:55 97.5 Intake and Output 10/02/17 10/03/17 19:00 07:00 Intake Total 240 ml 480 ml Output Total 2600 ml Balance 240 ml -2120 ml Intake Oral 240 ml 480 ml Output Urine Total 2600 ml Laboratory Tests 10/03/17 06:00: White Blood Count 3.5L, Red Blood Count 4.20L, Hemoglobin 11.7L, Hematocrit 37.6L, Mean Corpuscular Volume 90, Mean Corpuscular Hemoglobin 27.8, Mean Corpuscular Hemoglobin Concent 31.0L, Red Cell Distribution Width 21.1H, Platelet Count 221, Mean Platelet Volume 6.3L, Neutrophils (%) (Auto) 58.2, Lymphocytes (%) (Auto) 24.3, Monocytes (%) (Auto) 12.4H, Eosinophils (%) (Auto) 3.1H, Basophils (%) (Auto) 2.0, Sodium Level 134L, Potassium Level 4.0, Chloride Level 96L, Carbon Dioxide Level 32, Anion Gap 7, Blood Urea Nitrogen 23H, Creatinine 1.5H, Estimat Glomerular Filtration Rate 57.1, Glucose Level 99 , Calcium Level 8.5 Height (Feet): 5 Height (Inches): 9.00 Weight (Pounds): 166 General Appearance: alert EENT: normal ENT inspection Neck: normal alignment Cardiovascular: normal peripheral pulses, normal rate, regular rhythm Respiratory/Chest: chest wall non-tender, lungs clear, normal breath sounds Abdomen: normal bowel sounds, non tender, soft Extremities: normal inspection Edema: no edema noted Arm (L), no edema noted Arm (R), no edema noted Leg (L), no edema noted Leg (R), no edema noted Pedal (L), no edema noted Pedal (R), no edema noted Generalized Neurologic: responsive, motor weakness Skin: normal pigmentation, warm/dry ROCÍO MOJICA Oct 03, 2017 12:44
[2017-10-03 16:00] VITALS: BP 92/66
--- NOTE | 2017-10-03 16:20 | Cardiac Electrophysiology PN ---
Assessment/Plan Assessment/Plan 1. Exacerbation of congestive heart failure. EF 20%. Continue Coreg 6.25 mg b.i.d., Lasix 40 mg IV b.i.d., lisinopril 10 mg daily, and Aldactone 50 mg daily. 2. Paroxysmal atrial fibrillation with two prior ablations at [facility] on Coreg and Xarelto 20 mg daily. 3. Status post [employer] ICD implantation with dysfunctional right ventricular lead. 100% V Paced. The patient is scheduled for new right ventricular lead as well as upgrade to biventricular defibrillator on 10/08/[address] [facility] Will be done as out patient after discharge 4. Hepatitis C and ascites, s/p 100 cc paracentesis 5. Renal failure with creatinine of 1.5. EDMAR RN Subjective Subjective Feeling better. Getting ready to be DCed.No chest pain or SOB Objective Last 24 Hour Vital Signs Date Time Temp Pulse Resp B/P (MAP) Pulse Ox O2 Delivery O2 Flow Rate FiO2 10/03/17 16:00 97.4 76 20 92/66 96 Room Air 21 97.4 10/03/17 13:16 97.4 10/03/17 12:17 97.4 10/03/17 12:00 97.4 76 20 102/76 96 Room Air 21 97.4 10/03/17 10:17 77 16 Room Air 21 10/03/17 08:06 108/74 10/03/17 08:05 78 108/74 10/03/17 08:05 78 108/74 10/03/17 08:04 97.4 10/03/17 08:04 78 10/03/17 08:00 97.2 76 20 108/75 96 Room Air 21 97.2 10/03/17 08:00 75 10/03/17 04:00 97.4 76 20 90/62 96 Room Air 97.4 10/03/17 04:00 75 10/03/17 00:00 97.3 75 20 97/70 98 Room Air 97.3 10/03/17 00:00 76 10/02/17 20:52 75 105/76 10/02/17 20:51 75 105/76 10/02/17 20:01 75 18 Room Air 21 10/02/17 20:00 75 10/02/17 20:00 97.0 76 20 105/56 99 Room Air 97.0 10/02/17 17:17 97.5 Intake and Output 10/02/17 10/03/17 19:00 07:00 Intake Total 240 ml 480 ml Output Total 2600 ml Balance 240 ml -2120 ml Intake Oral 240 ml 480 ml Output Urine Total 2600 ml Laboratory Tests Test 10/03/17 06:00 White Blood Count 3.5 K/UL (4.8-10.8) L Red Blood Count 4.20 M/UL (4.70-6.10) L Hemoglobin 11.7 G/DL (14.2-18.0) L Hematocrit 37.6 % (42.0-52.0) L Mean Corpuscular Volume 90 FL (80-99) Mean Corpuscular Hemoglobin 27.8 PG (27.0-31.0) Mean Corpuscular Hemoglobin Concent 31.0 G/DL (32.0-36.0) L Red Cell Distribution Width 21.1 % (11.6-14.8) H Platelet Count 221 K/UL (150-450) Mean Platelet Volume 6.3 FL (6.5-10.1) L Neutrophils (%) (Auto) 58.2 % (45.0-75.0) Lymphocytes (%) (Auto) 24.3 % (20.0-45.0) Monocytes (%) (Auto) 12.4 % (1.0-10.0) H Eosinophils (%) (Auto) 3.1 % (0.0-3.0) H Basophils (%) (Auto) 2.0 % (0.0-2.0) Sodium Level 134 MMOL/L (136-145) L Potassium Level 4.0 MMOL/L (3.5-5.1) Chloride Level 96 MMOL/L (98-107) L Carbon Dioxide Level 32 MMOL/L (21-32) Anion Gap 7 mmol/L (5-15) Blood Urea Nitrogen 23 mg/dL (7-18) H Creatinine 1.5 MG/DL (0.55-1.30) H Estimat Glomerular Filtration Rate 57.1 mL/min (>60) Glucose Level 99 MG/DL (74-106) Calcium Level 8.5 MG/DL (8.5-10.1) Microbiology Date/Time Source Procedure Growth Status 10/01/17 07:00 Sputum Gram Stain - Final Resulted 10/01/17 07:00 Sputum Sputum Culture - Preliminary NORMAL UPPER RESPIRATORY ALFONSO AT 24 ... Resulted Objective HEAD AND NECK: Positive JVD. LUNGS: Clear. CARDIOVASCULAR: Regular S1 and S2 with 2/6 systolic murmur. ICD left subclavian ABDOMEN: Soft with ascites. EXTREMITIES: 1+ pitting edema. Rc Zhang MD Oct 03, 2017 16:20
[2017-10-03] MEDS ORDERED: NS 275ml ONE (17:59)
[2017-10-03] MEDS ORDERED: Tubing IV Secondary IV ONE (17:59)
--- NOTE | 2017-10-07 12:40 | Discharge Summary ---
Discharge Summary Hospital Course Date of Admission Sep 29, 2017 at 14:55 Date of Discharge Oct 03, 2017 at 18:00 Admitting Diagnosis ACUTE CORONARY SYNDROME HPI Shad Rodas is a 62 year old male who was admitted on Sep 29, 2017 at 14:55 for Acute Coronary Syndrome Hospital Course [id number] Discharge Discharge Disposition Patient was discharged to Home (01) Megan Collins NP Oct 07, 2017 12:40
--- NOTE | 2017-10-07 18:30 | Discharge Summary 2 SIG ---
DATE OF ADMISSION: 09/29/2017 DATE OF DISCHARGE: 10/03/2017 CONSULTANTS: 1. Rc Zhang M.D. 2. Andrzej Chavarria M.D. 3. Harley Marcos M.D. 4. Sachi Carson M.D. 5. Beto Ryan M.D. 6. Sherwin Hawkins M.D. BRIEF HOSPITAL COURSE: The patient is a 62-year-old male, who lives at home with history of cirrhosis of the liver and congestive heart failure, presented to [place] complaining of two days increased substernal chest pain that was described to be sharp with no radiation, accompanied with slight shortness of breath and abdominal pain. He has history of chronic obstructive pulmonary disease, congestive heart failure, hepatitis C, hypertension, and has a pacemaker on the left upper chest. On evaluation at ED, blood work showed troponin 0.023, hemoglobin was 10.6, hematocrit 34, creatinine was 1.5, and BUN 28. Urine toxicology was positive for marijuana and opiates. He had EKG done that showed normal sinus rhythm with nonspecific ST to T-wave changes. Chest x-ray showed cardiomegaly with no acute cardiopulmonary disease. He was admitted for evaluation of acute coronary syndrome and underwent cardiac evaluation. He has severe cardiomyopathy and congestive heart failure and is scheduled for an upgrade of his ICD to biventricular defibrillator next week at [facility]. However, he had increasing shortness of breath, abdominal pain, and lower extremity edema. Echocardiogram, ejection fraction was 20%. He was continued on Coreg 6.25 b.i.d., Lasix 40 mg IV b.i.d., lisinopril 10 mg daily, and Aldactone 50 mg daily. He had history of paroxysmal atrial fibrillation and had two prior ablations in the past. He was continued on Xarelto. He was ventricular paced on the monitor. He had acute kidney injury, multifactorial acute tubular necrosis in nature secondary to cardiorenal from congestive heart failure and underlying current hypotension while on Aldactone, lisinopril, and Toradol. Renal ultrasound done showed normal kidneys and negative for hydronephrosis. He was given pain management and received oxycodone. He had ascites and underwent ultrasound-guided paracentesis on 09/30/2017 yielding 100 mL of rena-colored fluid. Gram-stain and culture did not isolate any growth. He also had sputum culture with normal upper respiratory alcira. Troponin levels were negative. Cough improved. He received Levaquin and was cleared for discharge home to proceed with planned upgrade of defibrillator. FINAL DIAGNOSES: 1. Acute bronchitis/community-acquired pneumonia, cough improved. 2. Ascites status post paracentesis. 3. Liver cirrhosis. 4. Acute exacerbation of systolic and diastolic heart failure. 5. Cardiomyopathy with a [employer] implantable cardioverter defibrillation pacemaker. 6. Paroxysmal atrial fibrillation with two prior ablations, on anticoagulation. 7. Hepatitis C. 8. Acute kidney injury on chronic kidney disease stage 3. 9. Hypothyroidism. TSH was 17. 10. Emphysema. 11. Leukopenia probably due to cirrhosis. 12. Coronary artery disease. 13. Abdominal pain. The patient was given proton pump inhibitors and diet was advanced to low-sodium diet. DISPOSITION: The patient was discharged home with home health. DISCHARGE MEDICATIONS: Refer to medication list. DISCHARGE INSTRUCTIONS: Follow up within a week. Follow up with Dr. Zhang for outpatient upgrade of defibrillator. Shahid Cherry D.O. I have been assigned to dictate discharge summary on this account and I was not involved in the patient's management. Megan Collins N.P. DR: FABIOLA JOB#: [id number] CC:
== END 2017-10-03 18:00 | disposition home health service (06) | DRG 291 ==
LOC: EMR 14:05 → EDBEDREQ 14:24 → 2E 14:55 → EDBEDREQ 16:06
PROC: 0W9G3ZZ Drainage of Peritoneal Cavity, Percutaneous Approach (ICD-10-PCS; principal; 2017-09-30)
DX: I13.0 Hypertensive heart and chronic kidney disease with heart failure and stage 1 through stage 4 chronic kidney disease, or unspecified chronic kidney disease (principal); N17.0 Acute kidney failure with tubular necrosis; J18.9 Pneumonia, unspecified organism; I50.43 Acute on chronic combined systolic (congestive) and diastolic (congestive) heart failure; I24.9 Acute ischemic heart disease, unspecified; N39.0 Urinary tract infection, site not specified; I50.22 Chronic systolic (congestive) heart failure; R18.8 Other ascites; J44.0 Chronic obstructive pulmonary disease with (acute) lower respiratory infection; I34.0 Nonrheumatic mitral (valve) insufficiency; I42.9 Cardiomyopathy, unspecified; I48.0 Paroxysmal atrial fibrillation; N18.3 Chronic kidney disease, stage 3 (moderate); B19.20 Unspecified viral hepatitis C without hepatic coma; Z95.810 Presence of automatic (implantable) cardiac defibrillator; Z88.6 Allergy status to analgesic agent; I50.84 End stage heart failure; J43.9 Emphysema, unspecified; I50.9 Heart failure, unspecified; K74.60 Unspecified cirrhosis of liver; E03.9 Hypothyroidism, unspecified; I25.10 Atherosclerotic heart disease of native coronary artery without angina pectoris; M51.16 Intervertebral disc disorders with radiculopathy, lumbar region; M47.896 Other spondylosis, lumbar region; I27.20 Pulmonary hypertension, unspecified; I36.1 Nonrheumatic tricuspid (valve) insufficiency; R10.9 Unspecified abdominal pain; J44.9 Chronic obstructive pulmonary disease, unspecified; J20.9 Acute bronchitis, unspecified; Z79.01 Long term (current) use of anticoagulants
CPT/HCPCS: 36415; 71045; 76770; 76942; 80048; 80053; 80061; 80162; 80307; 81003; 82248; 82550; 82553; 83690; 83735; 84100; 84443; 84484; 85025; 85610; 85730; 86140; 86703; 87070; 87205; 88104; 89051; 93005; 93306; 94664; 97803; 99285; J2405

== ENCOUNTER 2018-01-20 19:04 | Inpatient (IN) | payer MEDICARE, MEDICAID ==
[~2018-01-20] VITALS: Ht 175.3 cm; Wt 63.8 kg
[~2018-01-20 19:04] MED LIST changes: +COREG CR10 MG ORAL; +DIGOXIN125 MCG ORAL; +DIPHENHYDRAMINE25 M1 ORAL; +FERROUS SULFAT325 MG ORAL; +ROXICODONE15 MG ORAL; +SOTALOL80 M1 ORAL; +TIZANIDINE HCL4 MG ORAL; +VITAMIN C500 M1 ORAL; +ZOFRAN4 M3 ORAL
[2018-01-20 19:15] VITALS: BP 116/81
--- NOTE | 2018-01-20 19:45 | Emergency Room Report ---
History of Present Illness General Chief Complaint: General Complaint Source: Patient Present Illness HPI Patient is well-known to the emergency department with prior admissions in the past. Patient's primary care physician is Dr. Shahid Cherry. Patient has history of liver cirrhosis and congestive heart failure has had multiple episodes of fluid overload and ascites. Patient apparently also has a history of COPD hepatitis C hypertension and pacemaker. Symptoms were noted to be severe as patient has significant bilateral lower extremity swelling with some shortness of breath and abdominal distention. Patient saw his primary care physician and was advised of the emergency department for further evaluation. Symptoms noted to be severe.No other modifying factors. No other associated signs and symptoms. No other complaints were noted. Allergies: Coded Allergies: HYDROMORPHONE (Verified Allergy, Unknown, 12/28/10) Patient History Past Medical History: HTN, CAD, COPD, other - Liver cirrho Past Surgical History: pacemaker Pertinent Family History: none Social History: Denies: smoking, alcohol use, drug use Reviewed Nursing Documentation: PMH: Agreed; PSxH: Agreed Nursing Documentation-PMH Past Medical History: No History, Except For Hx Cardiac Problems: Yes Hx Hypertension: Yes Hx Pacemaker: Yes - Left upper chest Hx COPD: Yes Hx Cancer: No Hx Gastrointestinal Problems: No Hx Neurological Problems: No Hx Cerebrovascular Accident: No Hx Transient Ischemic Attacks: No Review of Systems All Other Systems: negative except mentioned in HPI Physical Exam Vital Signs Date Time Temp Pulse Resp B/P (MAP) Pulse Ox O2 Delivery O2 Flow Rate FiO2 01/20/18 19:07 97.9 105 18 118/86 100 Room Air 97.9 Sp02 EP Interpretation: reviewed, normal General Appearance: alert, moderate distress Head: atraumatic Eyes: bilateral eye normal inspection ENT: normal ENT inspection, hearing grossly normal, normal voice Neck: normal inspection, full range of motion, supple, no bony tend Respiratory: no respiratory distress, no retraction, decreased breath sounds, other - Basilar crac Cardiovascular #1: tachycardia, edema - Bilateral lower extremity edema Gastrointestinal: normal inspection, normal bowel sounds, non tender, soft, no guarding, no hernia Genitourinary: no CVA tenderness Musculoskeletal: normal inspection, back normal, swelling - Bilateral lower extremity Neurologic: normal inspection, alert, responsive, speech normal Psychiatric: judgement/insight normal, depressed affect Skin: normal inspection, normal color, no rash Procedures Critical Care Time Critical Care Time Patient had a critical medical condition which untreated could potentially result in life or limb threatening injury. Total critical care time excluding procedures was approximately 45 minutes. Medical Decision Making Diagnostic Impression: Primary Impression: Cirrhosis Additional Impressions: Ascites CHF (congestive heart failure) Right-sided heart failure Fluid overload ER Course Patient presents emergency department today complaining of bilateral lower extremity swelling shortness of breath and abdominal distention. Differential considerations include ascites, fluid overload, CHF, cirrhosis just to name a few.Given the severity of the patient's presentation I felt this is a highly complex patient. This patient required extensive workup. Patient laboratory workup is consistent with chronic chronic cirrhosis and fluid overload. I felt the patient is nearing anasarca. I feel the patient requires admission to the hospital further treatment. Case discussed with patient's primary care physician Dr. Shahid Cherry patient will be admitted to telemetry for further treatment. Labs Test 01/20/18 19:30 White Blood Count 3.5 K/UL (4.8-10.8) Red Blood Count 4.29 M/UL (4.70-6.10) Hemoglobin 10.9 G/DL (14.2-18.0) Hematocrit 36.7 % (42.0-52.0) Mean Corpuscular Volume 85 FL (80-99) Mean Corpuscular Hemoglobin 25.4 PG (27.0-31.0) Mean Corpuscular Hemoglobin Concent 29.8 G/DL (32.0-36.0) Red Cell Distribution Width 19.3 % (11.6-14.8) Platelet Count 188 K/UL (150-450) Mean Platelet Volume 6.8 FL (6.5-10.1) Neutrophils (%) (Auto) 54.5 % (45.0-75.0) Lymphocytes (%) (Auto) 22.7 % (20.0-45.0) Monocytes (%) (Auto) 16.0 % (1.0-10.0) Eosinophils (%) (Auto) 1.4 % (0.0-3.0) Basophils (%) (Auto) 5.4 % (0.0-2.0) Prothrombin Time 18.6 SEC (9.30-11.50) Prothromb Time International Ratio 1.9 (0.9-1.1) Activated Partial Thromboplast Time 27 SEC (23-33) Sodium Level 135 MMOL/L (136-145) Potassium Level 4.4 MMOL/L (3.5-5.1) Chloride Level 99 MMOL/L (98-107) Carbon Dioxide Level 23 MMOL/L (21-32) Anion Gap 13 mmol/L (5-15) Blood Urea Nitrogen 19 mg/dL (7-18) Creatinine 1.7 MG/DL (0.55-1.30) Estimat Glomerular Filtration Rate 49.4 mL/min (>60) Glucose Level 100 MG/DL (74-106) Calcium Level 8.9 MG/DL (8.5-10.1) Total Bilirubin 3.6 MG/DL (0.2-1.0) Direct Bilirubin 2.1 MG/DL (0.0-0.3) Aspartate Amino Transf (AST/SGOT) 28 U/L (15-37) Alanine Aminotransferase (ALT/SGPT) 18 U/L (12-78) Alkaline Phosphatase 115 U/L (46-116) Total Creatine Kinase 156 U/L (26-308) Creatine Kinase MB 1.6 NG/ML (0.0-3.6) Creatine Kinase MB Relative Index 1.0 Troponin I 0.030 ng/mL (0.000-0.056) Total Protein 8.1 G/DL (6.4-8.2) Albumin 3.6 G/DL (3.4-5.0) Globulin 4.5 g/dL Albumin/Globulin Ratio 0.8 (1.0-2.7) Lipase 53 U/L (73-393) EKG Diagnostic Results Rate: tachycardiac Rhythm: other - Atrial fibri ST Segments: no acute changes Rhythm Strip Diag. Results EP Interpretation: yes Rate: 110s Rhythm: no PVC's, other - atrial fibrillation, no other ectopy Chest X-Ray Diagnostic Results Chest X-Ray Diagnostic Results : Chest X-Ray Ordered: Yes # of Views/Limited/Complete: 1 View Indication: Shortness of Breath EP Interpretation: Yes Interpretation: no consolidation, no effusion, no pneumothorax Impression: Other - Cardiomegaly, mild pulmonary congestion, pacemaker Electronically Signed by: Electronically signed by Ferny Quick MD Last Vital Signs Date Time Temp Pulse Resp B/P (MAP) Pulse Ox O2 Delivery O2 Flow Rate FiO2 01/20/18 19:07 97.9 105 18 118/86 100 Room Air 97.9 Status: improved Disposition: ADMITTED INPATIENT Condition: Serious Ferny Quick MD Jan 20, 2018 19:45
[2018-01-20 19:58] LABS: BASOPHILS % (AUTO) 5.4 % (0.0-2.0); EOSINOPHILS % (AUTO) 1.4 % (0.0-3.0); HEMATOCRIT 36.7 % (42.0-52.0); HEMOGLOBIN 10.9 G/DL (14.2-18.0); LYMPHOCYTES % (AUTO) 22.7 % (20.0-45.0); MEAN CORPUSCULAR VOLUME 85 FL (80-99); NEUTROPHILS % (AUTO) 54.5 % (45.0-75.0); PLATELET COUNT 188 K/UL (150-450); RED BLOOD COUNT 4.29 M/UL (4.70-6.10); RED CELL DISTRIBUTION WIDTH 19.3 % (11.6-14.8); WHITE BLOOD COUNT 3.5 K/UL (4.8-10.8)
[2018-01-20] MEDS ORDERED: CARVEDILOL3.125 MG ORAL (19:59)
[2018-01-20] MEDS ORDERED: FUROSEMIDE20 M1 ORAL (20:05)
[2018-01-20] MEDS ORDERED: GABAPENTIN100 MG ORAL (20:07)
[2018-01-20] MEDS ORDERED: LEVOTHYROXINE125 MCG ORAL (20:10)
[2018-01-20] MEDS ORDERED: LISINOPRIL5 MG ORAL (20:13)
[2018-01-20] MEDS ORDERED: Morphine Sulfate 4mg/ml Inj (IV USE ONLY) IVP ONE (20:15)
[2018-01-20] MEDS ORDERED: SPIRONOLACTONE100 MG ORAL (20:21)
[2018-01-20 20:22] LABS: ANION GAP 13 mmol/L (5-15); BLOOD UREA NITROGEN 19 mg/dL (7-18); CALCIUM 8.9 MG/DL (8.5-10.1); CARBON DIOXIDE 23 MMOL/L (21-32); CHLORIDE 99 MMOL/L (98-107); CREATININE 1.7 MG/DL (0.55-1.30); POTASSIUM 4.4 MMOL/L (3.5-5.1); SODIUM 135 MMOL/L (136-145)
[2018-01-20 20:24] LABS: INR 1.9 (0.9-1.1)
[2018-01-20] MEDS ORDERED: XARELTO10 MG ORAL (20:27)
[2018-01-20] MEDS ORDERED: DIPHENHYDRAMINE25 M1 ORAL (20:35)
[2018-01-20 20:38] LABS: ALANINE AMINOTRANSFERASE 18 U/L (12-78); ALBUMIN 3.6 G/DL (3.4-5.0); ALBUMIN/GLOBULIN RATIO 0.8 (1.0-2.7); ALKALINE PHOSPHATASE 115 U/L (46-116); ASPARTATE AMINO TRANSFERASE 28 U/L (15-37); BILIRUBIN,TOTAL 3.6 MG/DL (0.2-1.0); CKMB 1.6 NG/ML (0.0-3.6); CREATINE KINASE 156 U/L (26-308)
[2018-01-20 20:39] LABS: BILIRUBIN,DIRECT 2.1 MG/DL (0.0-0.3)
[2018-01-20] MEDS ORDERED: ZOFRAN4 M3 ORAL (20:44)
[2018-01-20] MEDS ORDERED: DULCOLAX10 MG RC (20:54)
[2018-01-20] MEDS ORDERED: MILK OF MA400 MG/51 ORAL (20:54)
[2018-01-20 21:08] VITALS: BP 112/87
[2018-01-20] MEDS ORDERED: Albuterol/Ipratropium 3ml neb HHN PRN (21:15)
[2018-01-20] MEDS ORDERED: Miralax 17gm pkt ORAL PRN (21:15)
[2018-01-20 21:30] VITALS: BP 121/80
[2018-01-20] MEDS: oxyCODONE 15mg IR tab ORAL PRN (21:49)
[2018-01-21] VITALS: BP 111/79
[2018-01-21 04:00] VITALS: BP 109/78
[2018-01-21] MEDS: Levothyroxine 125mcg tab ORAL SCH (06:01)
[2018-01-21 08:00] VITALS: BP 133/89
[2018-01-21] MEDS: Sotalol 80mg tab ORAL SCH ×2 (08:46→17:20)
[2018-01-21] MEDS: Xarelto 10mg tab ORAL SCH (08:48)
[2018-01-21] MEDS: Digoxin 0.125mg tab ORAL SCH (08:49)
[2018-01-21 09:04] LABS: HEMATOCRIT 35.9 % (42.0-52.0); HEMOGLOBIN 10.6 G/DL (14.2-18.0); MEAN CORPUSCULAR VOLUME 85 FL (80-99); PLATELET COUNT 167 K/UL (150-450); RED BLOOD COUNT 4.24 M/UL (4.70-6.10); RED CELL DISTRIBUTION WIDTH 19.3 % (11.6-14.8); WHITE BLOOD COUNT 2.7 K/UL (4.8-10.8)
[2018-01-21 09:18] LABS: ALBUMIN 3.3 G/DL (3.4-5.0); ANION GAP 10 mmol/L (5-15); BLOOD UREA NITROGEN 21 mg/dL (7-18); CALCIUM 8.8 MG/DL (8.5-10.1); CARBON DIOXIDE 25 MMOL/L (21-32); CHLORIDE 100 MMOL/L (98-107); CREATININE 1.8 MG/DL (0.55-1.30); PHOSPHORUS 3.9 MG/DL (2.5-4.9); POTASSIUM 4.3 MMOL/L (3.5-5.1); SODIUM 135 MMOL/L (136-145)
--- NOTE | 2018-01-21 10:01 | Diagnostic Imaging Report ---
Indication: Reason For Exam: COUGH Technique: XRAY Chest 1v Comparison: 09/29/2017 Findings: Stable cardiomegaly. Left-sided AICD unchanged. There is no focal airspace consolidation, pleural effusion or pneumothorax. No acute osseous abnormality. IMPRESSION: Stable cardiomegaly. No radiographic evidence of acute cardiopulmonary disease. No significant change from prior exam.
--- NOTE | 2018-01-21 11:03 | Consultation ---
History of Present Illness General Date patient seen: Jan 21, 2018 Chief Complaint: General Complaint Present Illness HPI 62 year old male with history of liver cirrhosis and congestive heart failure, EF of 10% has had multiple episodes of fluid overload and ascites. He has significant bilateral lower extremity swelling with some shortness of breath and abdominal distention. pt is admitted for further management. Allergies: Coded Allergies: HYDROMORPHONE (Verified Allergy, Unknown, 12/28/10) Medication History Scheduled Ascorbic Acid* (Vitamin C*), 500 MG ORAL DAILY, (Reported) Carvedilol* (Carvedilol*), 3.125 MG ORAL BID, (Reported) Digoxin* (Digoxin*), 125 MCG ORAL DAILY, (Reported) Ferrous Sulfate* (Ferrous Sulfate*), 325 MG ORAL DAILY, (Reported) Furosemide* (Lasix*), 20 MG ORAL BID, (Reported) Gabapentin* (Gabapentin*), 100 MG ORAL BID, (Reported) Levothyroxine Sodium* (Levothyroxine Sodium*), 125 MCG ORAL BEFORE BREAKFAST, ( Reported) Lisinopril (Lisinopril*), 5 MG ORAL DAILY, (Reported) Multivitamins* (Multivitamins*), 2 TAB ORAL DAILY, (Reported) Pantoprazole* (Protonix*), 40 MG ORAL DAILY, (Reported) Rivaroxaban (Xarelto*), 15 MG ORAL DAILY, (Reported) Sotalol Hcl (Sotalol*), 80 MG ORAL BID, (Reported) Spironolactone* (Spironolactone*), 25 MG ORAL DAILY, (Reported) Tizanidine Hcl* (Zanaflex*), 4 MG ORAL THREE TIMES A DAY, (Reported) Scheduled PRN Bisacodyl (Dulcolax), 10 MG RC DAILY PRN for Constipation, (Reported) Diphenhydramine Hcl* (Diphenhydramine Hcl*), 25 MG ORAL Q8H PRN for Itching, ( Reported) Magnesium Hydroxide* (Milk Of Magnesia*), 30 ML ORAL DAILY PRN for Constipation, (Reported) OXYCODONE HCl* (Roxicodone*), 15 MG ORAL Q6H PRN for For Pain, (Reported) Ondansetron* (Zofran*), 4 MG ORAL Q8HR PRN for Nausea & Vomiting, (Reported) Discontinued Medications Docusate Sodium* (Colace*), 100 MG ORAL BID, (Reported) Discontinued Reason: Therapy completed Zolpidem Tartrate* (Zolpidem Tartrate*), 10 MG ORAL BEDTIME PRN for Insomnia, ( Reported) Discontinued Reason: Therapy completed Patient History Healthcare decision maker N Resuscitation status Full Code Advanced Directive on File No Past Medical/Surgical History Past Medical/Surgical History: (1) Right-sided heart failure (2) Cirrhosis (3) Emphysema lung (4) ICD (implantable cardioverter-defibrillator) in place (5) EF < 20% Review of Systems Respiratory: Reports: orthopnea, shortness of breath All Other Systems: negative except mentioned in HPI Physical Exam General Appearance: WD/WN Lines, tubes and drains: peripheral HEENT: normocephalic, atraumatic Neck: non-tender, normal alignment Respiratory/Chest: rhonchi - left, rhonchi - right Breasts: no masses Cardiovascular/Chest: normal peripheral pulses, normal rate Abdomen: distended Extremities: pitting Skin Exam: normal pigmentation Neurologic: public health dentist II-XII grossly normal Last 24 Hour Vital Signs Date Time Temp Pulse Resp B/P (MAP) Pulse Ox O2 Delivery O2 Flow Rate FiO2 01/21/18 08:49 74 01/21/18 08:49 74 133/89 01/21/18 08:46 74 133/89 01/21/18 08:10 71 16 Room Air 99 01/21/18 04:00 96 01/21/18 04:00 97.6 82 18 109/78 (88) 98 97.6 01/21/18 00:00 97.7 86 18 111/79 (90) 100 97.7 01/21/18 00:00 102 01/20/18 22:26 Room Air 01/20/18 21:36 125 01/20/18 21:30 97.9 107 20 121/80 (94) 98 97.9 01/20/18 21:20 98.4 101 12 112/87 97 Room Air 98.4 01/20/18 21:08 98.4 101 12 112/87 97 Room Air 98.4 01/20/18 20:49 98.4 01/20/18 20:19 97.9 01/20/18 19:15 97.9 110 18 116/81 100 Room Air 97.9 01/20/18 19:07 97.9 105 18 118/86 100 Room Air 97.9 Intake and Output 01/20/18 01/21/18 19:00 07:00 Intake Total 240 ml Output Total 250 ml Balance -10 ml Intake Oral 240 ml Output Urine Total 250 ml # Voids 2 # Bowel Movements 1 Laboratory Tests Test 01/20/18 19:30 01/21/18 08:45 White Blood Count 3.5 K/UL (4.8-10.8) L 2.7 K/UL (4.8-10.8) L Red Blood Count 4.29 M/UL (4.70-6.10) L 4.24 M/UL (4.70-6.10) L Hemoglobin 10.9 G/DL (14.2-18.0) L 10.6 G/DL (14.2-18.0) L Hematocrit 36.7 % (42.0-52.0) L 35.9 % (42.0-52.0) L Mean Corpuscular Volume 85 FL (80-99) 85 FL (80-99) Mean Corpuscular Hemoglobin 25.4 PG (27.0-31.0) L 25.0 PG (27.0-31.0) L Mean Corpuscular Hemoglobin Concent 29.8 G/DL (32.0-36.0) L 29.5 G/DL (32.0-36.0) L Red Cell Distribution Width 19.3 % (11.6-14.8) H 19.3 % (11.6-14.8) H Platelet Count 188 K/UL (150-450) 167 K/UL (150-450) Mean Platelet Volume 6.8 FL (6.5-10.1) 5.9 FL (6.5-10.1) L Neutrophils (%) (Auto) 54.5 % (45.0-75.0) % (45.0-75.0) Lymphocytes (%) (Auto) 22.7 % (20.0-45.0) % (20.0-45.0) Monocytes (%) (Auto) 16.0 % (1.0-10.0) H % (1.0-10.0) Eosinophils (%) (Auto) 1.4 % (0.0-3.0) % (0.0-3.0) Basophils (%) (Auto) 5.4 % (0.0-2.0) H % (0.0-2.0) Prothrombin Time 18.6 SEC (9.30-11.50) H Prothromb Time International Ratio 1.9 (0.9-1.1) H Activated Partial Thromboplast Time 27 SEC (23-33) Sodium Level 135 MMOL/L (136-145) L 135 MMOL/L (136-145) L Potassium Level 4.4 MMOL/L (3.5-5.1) 4.3 MMOL/L (3.5-5.1) Chloride Level 99 MMOL/L (98-107) 100 MMOL/L (98-107) Carbon Dioxide Level 23 MMOL/L (21-32) 25 MMOL/L (21-32) Anion Gap 13 mmol/L (5-15) 10 mmol/L (5-15) Blood Urea Nitrogen 19 mg/dL (7-18) H 21 mg/dL (7-18) H Creatinine 1.7 MG/DL (0.55-1.30) H 1.8 MG/DL (0.55-1.30) H Estimat Glomerular Filtration Rate 49.4 mL/min (>60) 46.3 mL/min (>60) Glucose Level 100 MG/DL (74-106) 114 MG/DL (74-106) H Calcium Level 8.9 MG/DL (8.5-10.1) 8.8 MG/DL (8.5-10.1) Total Bilirubin 3.6 MG/DL (0.2-1.0) H Direct Bilirubin 2.1 MG/DL (0.0-0.3) H Aspartate Amino Transf (AST/SGOT) 28 U/L (15-37) Alanine Aminotransferase (ALT/SGPT) 18 U/L (12-78) Alkaline Phosphatase 115 U/L (46-116) Total Creatine Kinase 156 U/L (26-308) Creatine Kinase MB 1.6 NG/ML (0.0-3.6) Creatine Kinase MB Relative Index 1.0 Troponin I 0.030 ng/mL (0.000-0.056) Total Protein 8.1 G/DL (6.4-8.2) Albumin 3.6 G/DL (3.4-5.0) 3.3 G/DL (3.4-5.0) L Globulin 4.5 g/dL Albumin/Globulin Ratio 0.8 (1.0-2.7) L Lipase 53 U/L (73-393) L Differential Total Cells Counted 100 Neutrophils % (Manual) 57 % (45-75) Lymphocytes % (Manual) 25 % (20-45) Monocytes % (Manual) 15 % (1-10) H Eosinophils % (Manual) 2 % (0-3) Basophils % (Manual) 1 % (0-2) Band Neutrophils 0 % (0-8) Platelet Estimate Adequate Platelet Morphology Normal Hypochromasia 2+ Anisocytosis 2+ Phosphorus Level 3.9 MG/DL (2.5-4.9) Magnesium Level 2.1 MG/DL (1.8-2.4) Height (Feet): 5 Height (Inches): 9.00 Weight (Pounds): 160 Medications Current Medications Medications (Trade) Dose Ordered Sig/Allyn Route PRN Reason Start Time Stop Time Status Last Admin Dose Admin Acetaminophen (Tylenol) 650 mg Q4H PRN ORAL Fever 01/20/18 21:15 02/19/18 21:14 Albuterol/ Ipratropium (Albuterol/ Ipratropium) 3 ml EVERY 4 HOURS PRN HHN Shortness of Breath 01/20/18 21:15 01/25/18 21:14 Carvedilol (Coreg) 3.125 mg BID ORAL 01/21/18 09:00 02/20/18 08:59 01/21/18 08:49 Dextrose (Dextrose 50%) STAT PRN IV Hypoglycemia 01/20/18 21:15 02/19/18 21:14 Digoxin (Lanoxin) 0.125 mg DAILY ORAL 01/21/18 09:00 02/20/18 08:59 01/21/18 08:49 Furosemide (Lasix) 40 mg EVERY 8 HOURS IV 01/20/18 22:00 02/19/18 21:59 01/21/18 06:01 Gabapentin (Neurontin) 100 mg BID ORAL 01/21/18 09:00 02/20/18 08:59 01/21/18 08:49 Levothyroxine Sodium (Synthroid) 125 mcg BEFORE BREAKFAST ORAL 01/21/18 06:30 02/20/18 06:29 01/21/18 06:01 Ondansetron HCl (Zofran) 4 mg Q6H PRN IVP Nausea & Vomiting 01/20/18 21:15 02/19/18 21:14 Oxycodone HCl (Roxicodone) 15 mg Q6H PRN ORAL For Pain 01/20/18 21:15 01/27/18 21:14 01/20/18 21:49 Polyethylene Glycol (Miralax) 17 gm DAILYPRN PRN ORAL Constipation 01/20/18 21:15 02/19/18 21:14 Rivaroxaban (Xarelto) 15 mg DAILY ORAL 01/21/18 09:00 02/20/18 08:59 01/21/18 08:48 Sotalol HCl (Betapace) 80 mg BID ORAL 01/21/18 09:00 02/20/18 08:59 01/21/18 08:46 Temazepam (Restoril) 15 mg HSPRN PRN ORAL Insomnia 01/20/18 21:15 01/27/18 21:14 Assessment/Plan Problem List: (1) Fluid overload ICD Codes: E87.70 - Fluid overload, unspecified SNOMED: 71768845 (2) EF < 20% (3) Ascites ICD Codes: R18.8 - Ascites SNOMED: 211093331 (4) Emphysema lung ICD Codes: J43.9 - Emphysema lung SNOMED: 99538768 (5) Right-sided heart failure ICD Codes: I50.9 - Right-sided heart failure SNOMED: 120007167 (6) Cirrhosis ICD Codes: K74.60 - Unspecified cirrhosis of liver SNOMED: 32444509 (7) ICD (implantable cardioverter-defibrillator) in place ICD Codes: Z95.810 - Presence of automatic (implantable) cardiac defibrillator SNOMED: 093996408, 241576217 Assessment/Plan diuretics respiratory treatment titrate fio2 to sat of 92% US of abdomen optimize cardiac meds venous doppler to rule out dvt Andrzej Chavarria MD Jan 21, 2018 11:03
[2018-01-21 12:00] VITALS: BP 100/75
[2018-01-21] MEDS ORDERED: Phytonadione 10 MG in D5W 50 ML IVPB ONE (13:00)
--- NOTE | 2018-01-21 13:11 | GI Initial Consult Note ---
History of Present Illness General Date patient seen: Jan 21, 2018 Time patient seen: 13:01 Reason for Hospitalization: General Complaint Referring physician: ROCÍO MOJICA Reason for Consultation: CIRRHOSIS Present Illness HPI 62 year old male with history of liver cirrhosis and congestive heart failure, EF of 10% has had multiple episodes of fluid overload and ascites. He has significant bilateral lower extremity swelling with some shortness of breath and abdominal distention. pt is admitted for further management. GI consulted for anemia/cirrhosis. Pt seen, c/o of chest and abdominal pain. NAD, no active s/sx of N/V/D. Had one ep of emesis yesterday, but denied any hematemesis or coffee grounds. Abdomen is firm, distended, noted with ascites on recent abdominal U/S. Denies diarrhea. Hx of Hep C s/p treatment now negative, ?Cirrhosis, HTN, CHF, Pacemaker. Pt states he drinks beer and uses marijuana occasional. Denies tobacco use. Last colonoscopy 2 years ago. Home Meds Reported Medications Bisacodyl (DULCOLAX) 10 Mg Supp.rect, 10 MG RC DAILY PRN for Constipation, SUPP 01/20/18 Magnesium Hydroxide* (MILK OF MAGNESIA*) 400 Mg/5 Ml Oral.susp, 30 ML ORAL DAILY PRN for Constipation, ML 01/20/18 Ondansetron* (ZOFRAN*) 4 Mg Tablet, 4 MG ORAL Q8HR PRN for Nausea & Vomiting, TAB 01/20/18 Diphenhydramine Hcl* (DIPHENHYDRAMINE HCL*) 25 Mg Capsule, 25 MG ORAL Q8H PRN for Itching, #30 CAP 0 Refills 01/20/18 Rivaroxaban (XARELTO*) 10 Mg Tablet, 15 MG ORAL DAILY, #30 TAB 0 Refills 01/20/18 Spironolactone* (SPIRONOLACTONE*) 100 Mg Tablet, 25 MG ORAL DAILY, TAB 01/20/18 Lisinopril (LISINOPRIL*) 5 Mg Tablet, 5 MG ORAL DAILY, TAB 01/20/18 Levothyroxine Sodium* (LEVOTHYROXINE SODIUM*) 125 Mcg Tablet, 125 MCG ORAL BEFORE BREAKFAST, TAB Take in the morning on an empty stomach, at least 30 minutes before food. 01/20/18 Gabapentin* (GABAPENTIN*) 100 Mg Capsule, 100 MG ORAL BID, CAP 01/20/18 Furosemide* (LASIX*) 20 Mg Tablet, 20 MG ORAL BID, TAB 01/20/18 Carvedilol* (CARVEDILOL*) 3.125 Mg Tablet, 3.125 MG ORAL BID, TAB 01/20/18 OXYCODONE HCl* (ROXICODONE*) 15 Mg Tablet, 15 MG ORAL Q6H PRN for For Pain, TAB 09/29/17 Tizanidine Hcl* (ZANAFLEX*) 4 Mg Tablet, 4 MG ORAL THREE TIMES A DAY, #90 TAB 0 Refills 09/29/17 Sotalol Hcl (SOTALOL*) 80 Mg Tablet, 80 MG ORAL BID, #30 TAB 0 Refills 09/29/17 Digoxin* (DIGOXIN*) 125 Mcg Tablet, 125 MCG ORAL DAILY, TAB 09/29/17 Ascorbic Acid* (VITAMIN C*) 500 Mg Tablet, 500 MG ORAL DAILY, #30 TAB 0 Refills 09/29/17 Ferrous Sulfate* (FERROUS SULFATE*) 325 Mg Tablet, 325 MG ORAL DAILY, #30 TAB 0 Refills 09/29/17 Pantoprazole* (PROTONIX*) 40 Mg Tablet.dr, 40 MG ORAL DAILY, TAB 09/15/17 Multivitamins* (MULTIVITAMINS*) 1 Each Tablet, 2 TAB ORAL DAILY, TAB 0 Refills 04/09/16 Discontinued Reported Medications Docusate Sodium* (COLACE*) 100 Mg Capsule, 100 MG ORAL BID, CAP 09/15/17 Zolpidem Tartrate* (ZOLPIDEM TARTRATE*) 5 Mg Tablet, 10 MG ORAL BEDTIME PRN for Insomnia, TAB 0 Refills 07/28/14 Med list reviewed/reconciled: Yes Allergies: Coded Allergies: HYDROMORPHONE (Verified Allergy, Unknown, 12/28/10) Patient History History Provided By: Patient, Medical Record [facility] Narrative (1) Right-sided heart failure (2) Cirrhosis (3) Emphysema lung (4) ICD (implantable cardioverter-defibrillator) in place (5) EF < 20% Social History: Reports: alcohol use - quit Review of Systems All Other Systems: negative except mentioned in HPI Physical Exam Vital Signs Date Time Temp Pulse Resp B/P (MAP) Pulse Ox O2 Delivery O2 Flow Rate FiO2 01/20/18 19:07 97.9 105 18 118/86 100 Room Air 97.9 8/8/18 08:10 99 Sp02 EP Interpretation: reviewed, normal Labs Laboratory Tests Test 01/20/18 19:30 01/21/18 08:45 White Blood Count 3.5 K/UL (4.8-10.8) L 2.7 K/UL (4.8-10.8) L Red Blood Count 4.29 M/UL (4.70-6.10) L 4.24 M/UL (4.70-6.10) L Hemoglobin 10.9 G/DL (14.2-18.0) L 10.6 G/DL (14.2-18.0) L Hematocrit 36.7 % (42.0-52.0) L 35.9 % (42.0-52.0) L Mean Corpuscular Volume 85 FL (80-99) 85 FL (80-99) Mean Corpuscular Hemoglobin 25.4 PG (27.0-31.0) L 25.0 PG (27.0-31.0) L Mean Corpuscular Hemoglobin Concent 29.8 G/DL (32.0-36.0) L 29.5 G/DL (32.0-36.0) L Red Cell Distribution Width 19.3 % (11.6-14.8) H 19.3 % (11.6-14.8) H Platelet Count 188 K/UL (150-450) 167 K/UL (150-450) Mean Platelet Volume 6.8 FL (6.5-10.1) 5.9 FL (6.5-10.1) L Neutrophils (%) (Auto) 54.5 % (45.0-75.0) % (45.0-75.0) Lymphocytes (%) (Auto) 22.7 % (20.0-45.0) % (20.0-45.0) Monocytes (%) (Auto) 16.0 % (1.0-10.0) H % (1.0-10.0) Eosinophils (%) (Auto) 1.4 % (0.0-3.0) % (0.0-3.0) Basophils (%) (Auto) 5.4 % (0.0-2.0) H % (0.0-2.0) Prothrombin Time 18.6 SEC (9.30-11.50) H Prothromb Time International Ratio 1.9 (0.9-1.1) H Activated Partial Thromboplast Time 27 SEC (23-33) Sodium Level 135 MMOL/L (136-145) L 135 MMOL/L (136-145) L Potassium Level 4.4 MMOL/L (3.5-5.1) 4.3 MMOL/L (3.5-5.1) Chloride Level 99 MMOL/L (98-107) 100 MMOL/L (98-107) Carbon Dioxide Level 23 MMOL/L (21-32) 25 MMOL/L (21-32) Anion Gap 13 mmol/L (5-15) 10 mmol/L (5-15) Blood Urea Nitrogen 19 mg/dL (7-18) H 21 mg/dL (7-18) H Creatinine 1.7 MG/DL (0.55-1.30) H 1.8 MG/DL (0.55-1.30) H Estimat Glomerular Filtration Rate 49.4 mL/min (>60) 46.3 mL/min (>60) Glucose Level 100 MG/DL (74-106) 114 MG/DL (74-106) H Calcium Level 8.9 MG/DL (8.5-10.1) 8.8 MG/DL (8.5-10.1) Total Bilirubin 3.6 MG/DL (0.2-1.0) H Direct Bilirubin 2.1 MG/DL (0.0-0.3) H Aspartate Amino Transf (AST/SGOT) 28 U/L (15-37) Alanine Aminotransferase (ALT/SGPT) 18 U/L (12-78) Alkaline Phosphatase 115 U/L (46-116) Total Creatine Kinase 156 U/L (26-308) Creatine Kinase MB 1.6 NG/ML (0.0-3.6) Creatine Kinase MB Relative Index 1.0 Troponin I 0.030 ng/mL (0.000-0.056) Total Protein 8.1 G/DL (6.4-8.2) Albumin 3.6 G/DL (3.4-5.0) 3.3 G/DL (3.4-5.0) L Globulin 4.5 g/dL Albumin/Globulin Ratio 0.8 (1.0-2.7) L Lipase 53 U/L (73-393) L Differential Total Cells Counted 100 Neutrophils % (Manual) 57 % (45-75) Lymphocytes % (Manual) 25 % (20-45) Monocytes % (Manual) 15 % (1-10) H Eosinophils % (Manual) 2 % (0-3) Basophils % (Manual) 1 % (0-2) Band Neutrophils 0 % (0-8) Platelet Estimate Adequate Platelet Morphology Normal Hypochromasia 2+ Anisocytosis 2+ Phosphorus Level 3.9 MG/DL (2.5-4.9) Magnesium Level 2.1 MG/DL (1.8-2.4) General Appearance: well appearing, no apparent distress, alert Head: normocephalic EENT: PERRL/EOMI, normal ENT inspection Neck: supple Respiratory: normal breath sounds, no respiratory distress Cardiovascular: normal rate Gastrointestinal: normal inspection, non tender, soft, normal bowel sounds, non -distended, ascites Rectal: deferred Genitourinary: deferred Musculoskeletal: normal inspection, back normal Neurologic: normal inspection, alert, oriented x3, responsive Psychiatric: normal inspection, judgement/insight normal, memory normal Skin: normal inspection, normal color, no rash, warm/dry, palpation normal, well hydrated Lymphatic: normal inspection, no adenopathy Current Medications Current Medications Medications (Trade) Dose Ordered Sig/Allyn Route PRN Reason Start Time Stop Time Status Last Admin Dose Admin Acetaminophen (Tylenol) 650 mg Q4H PRN ORAL Fever 01/20/18 21:15 02/19/18 21:14 Albuterol/ Ipratropium (Albuterol/ Ipratropium) 3 ml EVERY 4 HOURS PRN HHN Shortness of Breath 01/20/18 21:15 01/25/18 21:14 Carvedilol (Coreg) 3.125 mg BID ORAL 01/21/18 09:00 02/20/18 08:59 01/21/18 08:49 Dextrose (Dextrose 50%) STAT PRN IV Hypoglycemia 01/20/18 21:15 02/19/18 21:14 Digoxin (Lanoxin) 0.125 mg DAILY ORAL 01/21/18 09:00 02/20/18 08:59 01/21/18 08:49 Furosemide (Lasix) 40 mg EVERY 8 HOURS IV 01/20/18 22:00 9/6/18 21:59 01/21/18 06:01 Gabapentin (Neurontin) 100 mg BID ORAL 01/21/18 09:00 02/20/18 08:59 01/21/18 08:49 Levothyroxine Sodium (Synthroid) 125 mcg BEFORE BREAKFAST ORAL 01/21/18 06:30 02/20/18 06:29 01/21/18 06:01 Lidocaine HCl (Xylocaine 1% 30ml) 30 ml ONCE PRN INJ PARACENTESIS 01/22/18 08:00 01/22/18 23:59 Ondansetron HCl (Zofran) 4 mg Q6H PRN IVP Nausea & Vomiting 01/20/18 21:15 02/19/18 21:14 Oxycodone HCl (Roxicodone) 15 mg Q6H PRN ORAL For Pain 01/20/18 21:15 01/27/18 21:14 01/20/18 21:49 Phytonadione 10 mg/Dextrose 51 ml @ 100 mls/hr ONCE ONCE IVPB 01/21/18 13:00 01/21/18 13:30 Polyethylene Glycol (Miralax) 17 gm DAILYPRN PRN ORAL Constipation 01/20/18 21:15 02/19/18 21:14 Rivaroxaban (Xarelto) 15 mg DAILY ORAL 01/21/18 09:00 02/20/18 08:59 01/21/18 08:48 Sotalol HCl (Betapace) 80 mg BID ORAL 01/21/18 09:00 02/20/18 08:59 01/21/18 08:46 Temazepam (Restoril) 15 mg HSPRN PRN ORAL Insomnia 01/20/18 21:15 01/27/18 21:14 GI: Plan Problems: (1) Fluid overload (2) EF < 20% (3) Right-sided heart failure (4) Cirrhosis (5) Ascites (6) Abdominal pain (7) Hepatitis C Plan hx of Hep C in 2014 s/p tx >> hep panel redrawn in 2016 was negative s/p colonoscopy with one polyp 06/26/16 symptomatic treatment, fu cardiology recs pt scheduled for paracentesis tomorrow. diuresis adv low sodium diet bowel regime ppi pain mgmt fu labs could benefit from outpatient fibroid scan evaluate cirrhosis repeat colonoscopy in [address] Ryan. Thank you for this patient referral, we will follow. The patient was seen and examined at bedside and all new and available data was reviewed in the patients chart. I agree with the above findings, impression and plan. (Patient seen earlier today. Signature stamp does not reflect patient encounter time.). - MD Marge SommerBannerJoseph PARKS Jan 21, 2018 13:11
--- NOTE | 2018-01-21 13:13 | Consultation ---
History of Present Illness General Date patient seen: Jan 21, 2018 Time patient seen: 13:05 Chief Complaint: General Complaint Present Illness HPI 62 year old male with history of liver cirrhosis and congestive heart failure, EF of 10% has had multiple episodes of fluid overload and ascites. He is complaining of constant epigastric and chest pain, shortness of breath, cough, leg swelling. He has a hx of AFIB and VT with ICD. He had a short run of non sustained V tach, he has been given lasix and potassium so far. No fevers, no sick contacts, no travel history. LE ultrasound negative for DVT, chest x ray clear. Allergies: Coded Allergies: HYDROMORPHONE (Verified Allergy, Unknown, 12/28/10) Medication History Scheduled Ascorbic Acid* (Vitamin C*), 500 MG ORAL DAILY, (Reported) Carvedilol* (Carvedilol*), 3.125 MG ORAL BID, (Reported) Digoxin* (Digoxin*), 125 MCG ORAL DAILY, (Reported) Ferrous Sulfate* (Ferrous Sulfate*), 325 MG ORAL DAILY, (Reported) Furosemide* (Lasix*), 20 MG ORAL BID, (Reported) Gabapentin* (Gabapentin*), 100 MG ORAL BID, (Reported) Levothyroxine Sodium* (Levothyroxine Sodium*), 125 MCG ORAL BEFORE BREAKFAST, ( Reported) Lisinopril (Lisinopril*), 5 MG ORAL DAILY, (Reported) Multivitamins* (Multivitamins*), 2 TAB ORAL DAILY, (Reported) Pantoprazole* (Protonix*), 40 MG ORAL DAILY, (Reported) Rivaroxaban (Xarelto*), 15 MG ORAL DAILY, (Reported) Sotalol Hcl (Sotalol*), 80 MG ORAL BID, (Reported) Spironolactone* (Spironolactone*), 25 MG ORAL DAILY, (Reported) Tizanidine Hcl* (Zanaflex*), 4 MG ORAL THREE TIMES A DAY, (Reported) Scheduled PRN Bisacodyl (Dulcolax), 10 MG RC DAILY PRN for Constipation, (Reported) Diphenhydramine Hcl* (Diphenhydramine Hcl*), 25 MG ORAL Q8H PRN for Itching, ( Reported) Magnesium Hydroxide* (Milk Of Magnesia*), 30 ML ORAL DAILY PRN for Constipation, (Reported) OXYCODONE HCl* (Roxicodone*), 15 MG ORAL Q6H PRN for For Pain, (Reported) Ondansetron* (Zofran*), 4 MG ORAL Q8HR PRN for Nausea & Vomiting, (Reported) Discontinued Medications Docusate Sodium* (Colace*), 100 MG ORAL BID, (Reported) Discontinued Reason: Therapy completed Zolpidem Tartrate* (Zolpidem Tartrate*), 10 MG ORAL BEDTIME PRN for Insomnia, ( Reported) Discontinued Reason: Therapy completed Patient History Healthcare decision maker N Resuscitation status Full Code Advanced Directive on File No Review of Systems Constitutional: Reports: no symptoms Eye: Reports: no symptoms ENT: Reports: no symptoms Respiratory: Reports: cough, shortness of breath Cardiovascular: Reports: no symptoms Gastrointestinal: Reports: no symptoms Genitourinary: Reports: no symptoms Musculoskeletal: Reports: no symptoms Skin: Reports: no symptoms Psychiatric: Reports: no symptoms Neurological: Reports: no symptoms Endocrine: Reports: no symptoms Hematologic/Lymphatic: Reports: no symptoms Physical Exam General Appearance: no apparent distress Lines, tubes and drains: peripheral HEENT: normocephalic, atraumatic Neck: non-tender, normal alignment Respiratory/Chest: chest wall non-tender, lungs clear Cardiovascular/Chest: normal peripheral pulses, normal rate, arrhythmia, irregularly irregular, pacemaker/AICD Abdomen: hypoactive bowel sounds, distended, guarding Extremities: normal range of motion, non-tender, severe edema Skin Exam: normal pigmentation, warm/dry Neurologic: card clothier II-XII grossly normal Last 24 Hour Vital Signs Date Time Temp Pulse Resp B/P (MAP) Pulse Ox O2 Delivery O2 Flow Rate FiO2 01/21/18 12:00 97.3 71 18 100/75 (83) 93 97.3 01/21/18 09:00 Room Air 01/21/18 08:49 74 01/21/18 08:49 74 133/89 01/21/18 08:46 74 133/89 01/21/18 08:10 71 16 Room Air 99 01/21/18 08:00 97.3 74 18 133/89 (104) 99 97.3 01/21/18 08:00 80 01/21/18 04:00 96 01/21/18 04:00 97.6 82 18 109/78 (88) 98 97.6 01/21/18 00:00 97.7 86 18 111/79 (90) 100 97.7 01/21/18 00:00 102 01/20/18 22:26 Room Air 01/20/18 21:36 125 01/20/18 21:30 97.9 107 20 121/80 (94) 98 97.9 01/20/18 21:20 98.4 101 12 112/87 97 Room Air 98.4 01/20/18 21:08 98.4 101 12 112/87 97 Room Air 98.4 01/20/18 20:49 98.4 01/20/18 20:19 97.9 01/20/18 19:15 97.9 110 18 116/81 100 Room Air 97.9 01/20/18 19:07 97.9 105 18 118/86 100 Room Air 97.9 Intake and Output 01/20/18 01/21/18 19:00 07:00 Intake Total 240 ml Output Total 250 ml Balance -10 ml Intake Oral 240 ml Output Urine Total 250 ml # Voids 2 # Bowel Movements 1 Laboratory Tests Test 01/20/18 19:30 01/21/18 08:45 White Blood Count 3.5 K/UL (4.8-10.8) L 2.7 K/UL (4.8-10.8) L Red Blood Count 4.29 M/UL (4.70-6.10) L 4.24 M/UL (4.70-6.10) L Hemoglobin 10.9 G/DL (14.2-18.0) L 10.6 G/DL (14.2-18.0) L Hematocrit 36.7 % (42.0-52.0) L 35.9 % (42.0-52.0) L Mean Corpuscular Volume 85 FL (80-99) 85 FL (80-99) Mean Corpuscular Hemoglobin 25.4 PG (27.0-31.0) L 25.0 PG (27.0-31.0) L Mean Corpuscular Hemoglobin Concent 29.8 G/DL (32.0-36.0) L 29.5 G/DL (32.0-36.0) L Red Cell Distribution Width 19.3 % (11.6-14.8) H 19.3 % (11.6-14.8) H Platelet Count 188 K/UL (150-450) 167 K/UL (150-450) Mean Platelet Volume 6.8 FL (6.5-10.1) 5.9 FL (6.5-10.1) L Neutrophils (%) (Auto) 54.5 % (45.0-75.0) % (45.0-75.0) Lymphocytes (%) (Auto) 22.7 % (20.0-45.0) % (20.0-45.0) Monocytes (%) (Auto) 16.0 % (1.0-10.0) H % (1.0-10.0) Eosinophils (%) (Auto) 1.4 % (0.0-3.0) % (0.0-3.0) Basophils (%) (Auto) 5.4 % (0.0-2.0) H % (0.0-2.0) Prothrombin Time 18.6 SEC (9.30-11.50) H Prothromb Time International Ratio 1.9 (0.9-1.1) H Activated Partial Thromboplast Time 27 SEC (23-33) Sodium Level 135 MMOL/L (136-145) L 135 MMOL/L (136-145) L Potassium Level 4.4 MMOL/L (3.5-5.1) 4.3 MMOL/L (3.5-5.1) Chloride Level 99 MMOL/L (98-107) 100 MMOL/L (98-107) Carbon Dioxide Level 23 MMOL/L (21-32) 25 MMOL/L (21-32) Anion Gap 13 mmol/L (5-15) 10 mmol/L (5-15) Blood Urea Nitrogen 19 mg/dL (7-18) H 21 mg/dL (7-18) H Creatinine 1.7 MG/DL (0.55-1.30) H 1.8 MG/DL (0.55-1.30) H Estimat Glomerular Filtration Rate 49.4 mL/min (>60) 46.3 mL/min (>60) Glucose Level 100 MG/DL (74-106) 114 MG/DL (74-106) H Calcium Level 8.9 MG/DL (8.5-10.1) 8.8 MG/DL (8.5-10.1) Total Bilirubin 3.6 MG/DL (0.2-1.0) H Direct Bilirubin 2.1 MG/DL (0.0-0.3) H Aspartate Amino Transf (AST/SGOT) 28 U/L (15-37) Alanine Aminotransferase (ALT/SGPT) 18 U/L (12-78) Alkaline Phosphatase 115 U/L (46-116) Total Creatine Kinase 156 U/L (26-308) Creatine Kinase MB 1.6 NG/ML (0.0-3.6) Creatine Kinase MB Relative Index 1.0 Troponin I 0.030 ng/mL (0.000-0.056) Total Protein 8.1 G/DL (6.4-8.2) Albumin 3.6 G/DL (3.4-5.0) 3.3 G/DL (3.4-5.0) L Globulin 4.5 g/dL Albumin/Globulin Ratio 0.8 (1.0-2.7) L Lipase 53 U/L (73-393) L Differential Total Cells Counted 100 Neutrophils % (Manual) 57 % (45-75) Lymphocytes % (Manual) 25 % (20-45) Monocytes % (Manual) 15 % (1-10) H Eosinophils % (Manual) 2 % (0-3) Basophils % (Manual) 1 % (0-2) Band Neutrophils 0 % (0-8) Platelet Estimate Adequate Platelet Morphology Normal Hypochromasia 2+ Anisocytosis 2+ Phosphorus Level 3.9 MG/DL (2.5-4.9) Magnesium Level 2.1 MG/DL (1.8-2.4) Height (Feet): 5 Height (Inches): 9.00 Weight (Pounds): 160 Medications Current Medications Medications (Trade) Dose Ordered Sig/Allyn Route PRN Reason Start Time Stop Time Status Last Admin Dose Admin Acetaminophen (Tylenol) 650 mg Q4H PRN ORAL Fever 01/20/18 21:15 02/19/18 21:14 Albuterol/ Ipratropium (Albuterol/ Ipratropium) 3 ml EVERY 4 HOURS PRN HHN Shortness of Breath 01/20/18 21:15 01/25/18 21:14 Carvedilol (Coreg) 3.125 mg BID ORAL 01/21/18 09:00 02/20/18 08:59 01/21/18 08:49 Dextrose (Dextrose 50%) STAT PRN IV Hypoglycemia 01/20/18 21:15 02/19/18 21:14 Digoxin (Lanoxin) 0.125 mg DAILY ORAL 01/21/18 09:00 02/20/18 08:59 01/21/18 08:49 Furosemide (Lasix) 40 mg EVERY 8 HOURS IV 01/20/18 22:00 02/19/18 21:59 01/21/18 06:01 Gabapentin (Neurontin) 100 mg BID ORAL 01/21/18 09:00 02/20/18 08:59 01/21/18 08:49 Levothyroxine Sodium (Synthroid) 125 mcg BEFORE BREAKFAST ORAL 01/21/18 06:30 02/20/18 06:29 01/21/18 06:01 Lidocaine HCl (Xylocaine 1% 30ml) 30 ml ONCE PRN INJ PARACENTESIS 01/22/18 08:00 01/22/18 23:59 Ondansetron HCl (Zofran) 4 mg Q6H PRN IVP Nausea & Vomiting 01/20/18 21:15 02/19/18 21:14 Oxycodone HCl (Roxicodone) 15 mg Q6H PRN ORAL For Pain 01/20/18 21:15 01/27/18 21:14 01/20/18 21:49 Phytonadione 10 mg/Dextrose 51 ml @ 100 mls/hr ONCE ONCE IVPB 01/21/18 13:00 01/21/18 13:30 Polyethylene Glycol (Miralax) 17 gm DAILYPRN PRN ORAL Constipation 01/20/18 21:15 02/19/18 21:14 Rivaroxaban (Xarelto) 15 mg DAILY ORAL 01/21/18 09:00 02/20/18 08:59 01/21/18 08:48 Sotalol HCl (Betapace) 80 mg BID ORAL 01/21/18 09:00 02/20/18 08:59 01/21/18 08:46 Temazepam (Restoril) 15 mg HSPRN PRN ORAL Insomnia 01/20/18 21:15 01/27/18 21:14 Assessment/Plan Status: stable Assessment/Plan Assessment: (1) Right-sided heart failure (2) Cirrhosis (3) Emphysema lung (4) ICD (implantable cardioverter-defibrillator) in place (5) EF < 20% (6) AFIB (7) Non sustained VT Plan: IV fluids Albumin to improve oncotic pressures Paracentesis Abdominal US Sotal for VT - ICD interrogation Increase coreg to 6.25 and titrate to goal 25 BID if tolerated Start hydralazine/imur for heart failure tomorrow if BP tolerates higher doses of coreg Start low dose aldactone if BP/renal function/K levels tolerate No indication for cath/stress test Angelo Galvan M.D. Jan 21, 2018 13:13
--- NOTE | 2018-01-21 14:51 | Cardiology Report ---
APPROVED REPORT EXAM: Two-dimensional and M-mode echocardiogram with Doppler and color Doppler. INDICATION LV function M-Mode DIMENSIONS IVSd1.1 (0.7-1.1cm)Left Atrium (MM)6.1 (1.6-4.0cm) LVDd6.7 (3.5-5.6cm)Aortic Root3.4 (2.0-3.7cm) PWd1.1 (0.7-1.1cm)Aortic Cusp Exc.2.1 (1.5-2.0cm) LVDs6.3 (2.5-4.0cm) PWs0.9 cm Moderate left ventricular enlargement. Severe global left ventricular hypokinesis with septal thinning. Septal and anterior wall akinesis. In Parasternal [place] view, Echogenic material in right ventricle may be reverberation artifact of pacemaker. Left ventricular ejection fraction estimated to be less than 10 %. Increased E point-interventricular septal separation c/w left ventricular dysfunction. No evidence of left ventricular hypertrophy. Small posterior pericardial effusion. Severe left atrial enlargement by 2-D. Moderate enlargement of right cardiac chambers by 2D. Mild focal aortic valve sclerosis with adequate cusp excursion. Thickened mitral valve leaflets with normal excursion. Mild mitral annulus and aortic root calcification. Pulmonic valve is not well visualized. Normal tricuspid valve structure. IVC dilated at 2.8 cm and non-collapsible with respiration indicate RA pressure at least 20 mmHg. Pacemaker wire present in the right side chambers. Increased apical echoes not typical for thrombus however one cannot be excluded. A color flow and spectral Doppler study was performed and revealed: Trace aortic regurgitation. Moderate to severe mitral regurgitation. Can not determine left ventricular diastolic function based on mitral diastolic velocities due to atrial fibrillation. Moderate to severe tricuspid regurgitation. Tricuspid systolic velocities suggests peak right ventricular systolic pressure of 79 mmHg, consistent with severe pulmonary hypertension. Moderate pulmonic regurgitation present.
[2018-01-21 16:00] VITALS: BP 114/84
--- NOTE | 2018-01-21 16:45 | History and Physical Report ---
DATE OF ADMISSION: 01/20/2018 TIME: 12 noon. CONSULTANTS: 1. Andrzej Chavarria M.D. 2. Rc Zhang M.D. 3. Beto Ryan M.D. CHIEF COMPLAINT: Shortness of breath, CHF and edema. BRIEF HISTORY: This is a 62-year-old male, who lives at home with history of CHF and hypertension, cirrhosis of liver presents to my office yesterday with increased shortness of breath and swelling in the leg as well as face for 3 days. The patient went home, apparently was worse, came back to [facility] last night, diagnosed the above, and admitted to telemetry for further care. Currently, slight short of breath in bed feeling little bit better. No complaint otherwise. PAST MEDICAL HISTORY: CHF, hypertension, edema, cirrhosis of liver, and hepatitis C. PAST SURGICAL HISTORY: None. MEDICATIONS: Carvedilol, digoxin, gabapentin, sotalol, levothyroxine, furosemide, oxycodone, temazepam and Zofran. ALLERGIES: Dilaudid. SOCIAL HISTORY: No smoking. No alcohol. No intravenous drug abuse. FAMILY HISTORY: Noncontributory. REVIEW OF SYSTEMS: Slight chest pain. Slight short of breath. No nausea, vomiting, or diarrhea. PHYSICAL EXAMINATION: GENERAL: Calm in bed, oriented x3, in slight short of breath. VITAL SIGNS: Temperature 97 degrees, pulse 71, respirations 18, blood pressure 100/75. CARDIOVASCULAR: No murmur. LUNGS: Poor air exchange. ABDOMEN: Bowel sounds positive. Nontender. Nondistended. EXTREMITIES: No cyanosis. The patient has 1+ edema times both lower extremity. NEUROLOGIC: The patient moves all extremities, slightly weak. LABORATORY AND DIAGNOSTIC DATA: White count 2.7, hemoglobin and hematocrit is 10/35 and platelets 167. Sodium 135, BUN and creatinine 21/1.8 and glucose 114. INR is 1.9 and PTT is 27. ASSESSMENT: 1. Shortness of breath. 2. CHF. 3. Hypertension. 4. Edema. 5. Slight chest pain. 6. Cirrhosis. 7. Hepatitis C. 8. Leukopenia. PLAN: 1. Continue previous medications. 2. O2 and pulmonary treatment. 3. OT/PT. 4. Dietary followup. 5. Diurese. 6. We will check CBC and BMP in the morning. 7. We will continue to follow this patient. Shahid Cherry D.O. DR: NELY JOB#: [id number] CC:
[2018-01-21] MEDS ORDERED: Tubing IV Secondary IV ONE (17:18)
[2018-01-21] MEDS ORDERED: NS 275ml ONE (17:18)
[2018-01-21] MEDS: Docusate 100mg cap ORAL SCH (17:20)
[2018-01-21 20:00] VITALS: BP 106/74
[2018-01-21] MEDS: Carvedilol 6.25mg Tab ORAL SCH (20:20)
[2018-01-21] MEDS: oxyCODONE 15mg IR tab ORAL PRN (20:22)
[2018-01-21] MEDS: Miralax 17gm pkt ORAL SCH (20:23)
[2018-01-22] VITALS (8 sets, daily range): BP systolic 93–134; BP diastolic 51–85
[2018-01-22] MEDS: Levothyroxine 125mcg tab ORAL SCH (06:03)
[2018-01-22 07:49] LABS: HEMATOCRIT 37.5 % (42.0-52.0); HEMOGLOBIN 11.4 G/DL (14.2-18.0); MEAN CORPUSCULAR VOLUME 86 FL (80-99); PLATELET COUNT 178 K/UL (150-450); RED BLOOD COUNT 4.37 M/UL (4.70-6.10); RED CELL DISTRIBUTION WIDTH 19.5 % (11.6-14.8); WHITE BLOOD COUNT 3.2 K/UL (4.8-10.8)
[2018-01-22 07:54] LABS: INR 2.4 (0.9-1.1)
[2018-01-22] MEDS ORDERED: Lidocaine 1% Plain 30 ml INJ PRN (08:00)
[2018-01-22 08:06] LABS: ANION GAP 6 mmol/L (5-15); BLOOD UREA NITROGEN 25 mg/dL (7-18); CALCIUM 8.4 MG/DL (8.5-10.1); CARBON DIOXIDE 28 MMOL/L (21-32); CHLORIDE 102 MMOL/L (98-107); CREATININE 1.8 MG/DL (0.55-1.30); POTASSIUM 3.8 MMOL/L (3.5-5.1); SODIUM 136 MMOL/L (136-145)
[2018-01-22] MEDS: Xarelto 10mg tab ORAL SCH (09:00)
[2018-01-22] MEDS: Carvedilol 6.25mg Tab ORAL SCH ×2 (10:37→22:08)
[2018-01-22] MEDS: Docusate 100mg cap ORAL SCH ×2 (10:37→18:00)
[2018-01-22] MEDS: Sotalol 80mg tab ORAL SCH ×2 (10:38→17:45)
[2018-01-22] MEDS: Digoxin 0.125mg tab ORAL SCH (10:38)
--- NOTE | 2018-01-22 11:08 | Cardiology Progress Note ---
Assessment/Plan Status: stable Assessment/Plan Assessment: (1) Right-sided heart failure (2) Cirrhosis (3) Emphysema lung (4) ICD (implantable cardioverter-defibrillator) in place (5) EF < 20% (6) AFIB (7) Non sustained VT Plan: IV fluids Albumin to improve oncotic pressures Paracentesis Abdominal US Sotal for VT - ICD interrogation Increase coreg to 6.25 and titrate to goal 25 BID if tolerated Goal heart rate 60 to reduce mitral regurgitant volume Lasix to reduce filling pressures/congestion Start hydralazine/imur for heart failure Start low dose aldactone if BP/renal function/K levels tolerate No indication for cath/stress test Subjective Cardiovascular: Reports: no symptoms Respiratory: Reports: no symptoms Gastrointestinal/Abdominal: Reports: no symptoms Genitourinary: Reports: no symptoms Subjective No acute events, vitals stable, no chest pain. Echo with LVEF 10 percent and severe functional MR Objective Last 24 Hour Vital Signs Date Time Temp Pulse Resp B/P (MAP) Pulse Ox O2 Delivery O2 Flow Rate FiO2 01/22/18 10:38 70 108/76 01/22/18 10:38 70 01/22/18 10:37 70 108/76 01/22/18 09:00 Room Air 01/22/18 08:00 97.6 70 20 108/76 (87) 99 97.6 01/22/18 08:00 97.6 70 20 108/76 (87) 99 97.6 01/22/18 08:00 71 01/22/18 04:00 97.2 71 18 103/66 (78) 99 97.2 01/22/18 04:00 70 01/22/18 00:00 97.7 68 18 108/71 (83) 98 97.7 01/22/18 00:00 70 01/21/18 21:00 Room Air 01/21/18 20:20 70 106/74 01/21/18 20:00 71 01/21/18 20:00 97.2 70 18 106/74 (85) 99 97.2 01/21/18 19:00 70 20 Room Air 99 01/21/18 17:20 70 114/84 01/21/18 16:00 70 01/21/18 16:00 97.4 71 20 114/84 (94) 98 97.4 01/21/18 12:00 97.3 71 18 100/75 (83) 93 97.3 01/21/18 12:00 72 General Appearance: no apparent distress EENT: PERRL/EOMI, normal ENT inspection Neck: non-tender, normal alignment, supple, normal inspection, JVD Rhythm: NSR Cardiovascular: normal peripheral pulses, normal rate Respiratory/Chest: chest wall non-tender Extremities: normal range of motion Neurologic: appointment manager II-XII grossly normal Intake and Output 01/21/18 01/22/18 19:00 07:00 Intake Total 240 ml Output Total 600 ml 1600 ml Balance -360 ml -1600 ml Intake Oral 240 ml Output Urine Total 600 ml 1600 ml Laboratory Tests Test 01/22/18 07:10 White Blood Count 3.2 K/UL (4.8-10.8) L Red Blood Count 4.37 M/UL (4.70-6.10) L Hemoglobin 11.4 G/DL (14.2-18.0) L Hematocrit 37.5 % (42.0-52.0) L Mean Corpuscular Volume 86 FL (80-99) Mean Corpuscular Hemoglobin 26.1 PG (27.0-31.0) L Mean Corpuscular Hemoglobin Concent 30.4 G/DL (32.0-36.0) L Red Cell Distribution Width 19.5 % (11.6-14.8) H Platelet Count 178 K/UL (150-450) Mean Platelet Volume 6.1 FL (6.5-10.1) L Neutrophils (%) (Auto) % (45.0-75.0) Lymphocytes (%) (Auto) % (20.0-45.0) Monocytes (%) (Auto) % (1.0-10.0) Eosinophils (%) (Auto) % (0.0-3.0) Basophils (%) (Auto) % (0.0-2.0) Differential Total Cells Counted 100 Neutrophils % (Manual) 57 % (45-75) Lymphocytes % (Manual) 28 % (20-45) Monocytes % (Manual) 12 % (1-10) H Eosinophils % (Manual) 2 % (0-3) Basophils % (Manual) 1 % (0-2) Band Neutrophils 0 % (0-8) Platelet Estimate Adequate Platelet Morphology Normal Hypochromasia 2+ Anisocytosis 2+ Prothrombin Time 23.9 SEC (9.30-11.50) H Prothromb Time International Ratio 2.4 (0.9-1.1) H Activated Partial Thromboplast Time 41 SEC (23-33) H Sodium Level 136 MMOL/L (136-145) Potassium Level 3.8 MMOL/L (3.5-5.1) Chloride Level 102 MMOL/L (98-107) Carbon Dioxide Level 28 MMOL/L (21-32) Anion Gap 6 mmol/L (5-15) Blood Urea Nitrogen 25 mg/dL (7-18) H Creatinine 1.8 MG/DL (0.55-1.30) H Estimat Glomerular Filtration Rate 46.3 mL/min (>60) Glucose Level 123 MG/DL (74-106) H Calcium Level 8.4 MG/DL (8.5-10.1) L Angelo Galvan M.D. Jan 22, 2018 11:08
--- NOTE | 2018-01-22 12:40 | Pulmonology Progress Note ---
Assessment/Plan Problems: (1) Fluid overload (2) EF < 20% (3) Ascites (4) Emphysema lung (5) Right-sided heart failure (6) Cirrhosis (7) ICD (implantable cardioverter-defibrillator) in place Assessment/Plan increase lasix optimize cardiac meds on anticoagulants check electrolytes f/u bun/creatinine Subjective ROS Limited/Unobtainable: No Constitutional: Reports: no symptoms HEENT: Repors: no symptoms Allergies: Coded Allergies: HYDROMORPHONE (Verified Allergy, Unknown, 12/28/10) Objective Last 24 Hour Vital Signs Date Time Temp Pulse Resp B/P (MAP) Pulse Ox O2 Delivery O2 Flow Rate FiO2 01/22/18 12:00 97.5 88 18 134/85 (101) 98 97.5 01/22/18 10:38 70 108/76 01/22/18 10:38 70 01/22/18 10:37 70 108/76 01/22/18 09:00 Room Air 01/22/18 08:40 74 20 Room Air 99 01/22/18 08:00 97.6 70 20 108/76 (87) 99 97.6 01/22/18 08:00 97.6 70 20 108/76 (87) 99 97.6 01/22/18 08:00 71 01/22/18 04:00 97.2 71 18 103/66 (78) 99 97.2 01/22/18 04:00 70 01/22/18 00:00 97.7 68 18 108/71 (83) 98 97.7 01/22/18 00:00 70 01/21/18 21:00 Room Air 01/21/18 20:20 70 106/74 01/21/18 20:00 71 01/21/18 20:00 97.2 70 18 106/74 (85) 99 97.2 01/21/18 19:00 70 20 Room Air 99 01/21/18 17:20 70 114/84 01/21/18 16:00 70 01/21/18 16:00 97.4 71 20 114/84 (94) 98 97.4 Intake and Output 01/21/18 01/22/18 19:00 07:00 Intake Total 240 ml Output Total 600 ml 1600 ml Balance -360 ml -1600 ml Intake Oral 240 ml Output Urine Total 600 ml 1600 ml General Appearance: cachetic HEENT: normocephalic, atraumatic Respiratory/Chest: chest wall non-tender, lungs clear Cardiovascular: normal peripheral pulses, normal rate Abdomen: normal bowel sounds, soft, non tender Genitourinary: normal external genitalia Neurologic/Psychiatric: cripple worker II-XII grossly normal Laboratory Tests 01/22/18 07:10: White Blood Count 3.2L, Red Blood Count 4.37L, Hemoglobin 11.4L, Hematocrit 37.5L, Mean Corpuscular Volume 86, Mean Corpuscular Hemoglobin 26.1L, Mean Corpuscular Hemoglobin Concent 30.4L, Red Cell Distribution Width 19.5H, Platelet Count 178, Mean Platelet Volume 6.1L, Neutrophils (%) (Auto) , Lymphocytes (%) (Auto) , Monocytes (%) (Auto) , Eosinophils (%) (Auto) , Basophils (%) (Auto) , Differential Total Cells Counted 100, Neutrophils % ( Manual) 57, Lymphocytes % (Manual) 28, Monocytes % (Manual) 12H, Eosinophils % ( Manual) 2, Basophils % (Manual) 1, Band Neutrophils 0, Platelet Estimate Adequate, Platelet Morphology Normal, Hypochromasia 2+, Anisocytosis 2+, Prothrombin Time 23.9H, Prothromb Time International Ratio 2.4H, Activated Partial Thromboplast Time 41H, Sodium Level 136, Potassium Level 3.8, Chloride Level 102, Carbon Dioxide Level 28, Anion Gap 6, Blood Urea Nitrogen 25H, Creatinine 1.8H, Estimat Glomerular Filtration Rate 46.3, Glucose Level 123H, Calcium Level 8.4L Current Medications Medications (Trade) Dose Ordered Sig/Allyn Route PRN Reason Start Time Stop Time Status Last Admin Dose Admin Acetaminophen (Tylenol) 650 mg Q4H PRN ORAL Fever 01/20/18 21:15 02/19/18 21:14 Albuterol/ Ipratropium (Albuterol/ Ipratropium) 3 ml EVERY 4 HOURS PRN HHN Shortness of Breath 01/20/18 21:15 01/25/18 21:14 Carvedilol (Coreg) 6.25 mg EVERY 12 HOURS ORAL 01/21/18 21:00 02/20/18 20:59 01/22/18 10:37 Dextrose (Dextrose 50%) STAT PRN IV Hypoglycemia 01/20/18 21:15 02/19/18 21:14 Digoxin (Lanoxin) 0.125 mg DAILY ORAL 01/21/18 09:00 02/20/18 08:59 01/22/18 10:38 Docusate Sodium (Colace) 100 mg TWICE A DAY ORAL 01/21/18 18:00 02/20/18 17:59 01/22/18 10:37 Furosemide (Lasix) 40 mg EVERY 8 HOURS IV 01/20/18 22:00 02/19/18 21:59 01/22/18 06:03 Gabapentin (Neurontin) 100 mg BID ORAL 01/21/18 09:00 02/20/18 08:59 01/22/18 10:37 Hydralazine HCl (Apresoline) 25 mg Q8HR ORAL 01/22/18 14:00 02/21/18 13:59 Isosorbide Dinitrate (Isordil) 10 mg Q8HR ORAL 01/22/18 14:00 02/21/18 13:59 Levothyroxine Sodium (Synthroid) 125 mcg BEFORE BREAKFAST ORAL 01/21/18 06:30 02/20/18 06:29 01/22/18 06:03 Lidocaine HCl (Xylocaine 1% 30ml) 30 ml ONCE PRN INJ PARACENTESIS 01/22/18 08:00 01/22/18 23:59 Ondansetron HCl (Zofran) 4 mg Q6H PRN IVP Nausea & Vomiting 01/20/18 21:15 02/19/18 21:14 Oxycodone HCl (Roxicodone) 15 mg Q6H PRN ORAL For Pain 01/20/18 21:15 01/27/18 21:14 01/21/18 20:22 Polyethylene Glycol (Miralax) 17 gm BEDTIME ORAL 01/21/18 21:00 02/20/18 20:59 01/21/18 20:23 Polyethylene Glycol (Miralax) 17 gm DAILYPRN PRN ORAL Constipation 01/20/18 21:15 02/19/18 21:14 Rivaroxaban (Xarelto) 15 mg DAILY ORAL 01/21/18 09:00 02/20/18 08:59 01/21/18 08:48 Sotalol HCl (Betapace) 80 mg BID ORAL 01/21/18 09:00 9/7/18 08:59 01/22/18 10:38 Temazepam (Restoril) 15 mg HSPRN PRN ORAL Insomnia 01/20/18 21:15 01/27/18 21:14 01/21/18 22:19 Andrzej Chavarria MD Jan 22, 2018 12:40
--- NOTE | 2018-01-22 12:49 | Physician Query ---
--------- THIS DOCUMENT IS A PERMANENT PART OF THE MEDICAL RECORD --------- PLEASE COMPLETE THE DOCUMENT BEFORE SIGNING Dear Dr. Cherry Date: 01/22/2018 Charge Machine Operator/CDS Name: Orlando Black Charge Machine Operator / CDS Phone # [phone] Exercise your independent professional judgment when responding to query. Question asked do not imply a particular answer is desired/expected Clinical Documentation States: "CHF" documented in H&P and progress notes. Clinical Findings Show: Echocardiogram: EF less than 10%, Diuretic: IV Furosemide Please Clarify: Acuity [] Acute [] Chronic [] Acute on Chronic Type [] Systolic [] Diastolic [] Systolic & Diastolic (Combined) [] Left Heart failure [] Other: Etiology [] CHF due to Hypertension [] Cardiomyopathy [] Valvular Heart Disease [] Coronary Artery Disease [] Unable to determine [] Other: Condition Present on Admission: [] Yes [] No []Clinically Undeterminable Please also document in your Progress Notes and/or Discharge Summary and indicate if the condition was present on admission. [facility]
[2018-01-22] MEDS: HydrALAZINE 25mg tab ORAL SCH ×2 (13:12→23:13)
--- NOTE | 2018-01-22 13:30 | Physician Query ---
--------- THIS DOCUMENT IS A PERMANENT PART OF THE MEDICAL RECORD --------- PLEASE COMPLETE THE DOCUMENT BEFORE SIGNING Dear Dr. Galvan Date: 01/22/2018 Diabetes Territory Manager/CDS Name: Orlando Black Diabetes Territory Manager / CDS Phone # [phone] Exercise your independent professional judgment when responding to query. Question asked do not imply a particular answer is desired/expected Clinical Documentation States: "Right sided Heart Failure" documented in Consultation and progress notes. "CHF" documented in H&P. Clinical Findings Show: Echocardiogram: EF less than 10%, Diuretic: IV Furosemide Please Clarify: Acuity [] Acute [] Chronic [] Acute on Chronic Type [] Systolic [] Diastolic [] Systolic & Diastolic (Combined) [] Left Heart failure [] Other: Etiology [] CHF due to Hypertension [] Cardiomyopathy [] Valvular Heart Disease [] Coronary Artery Disease [] Unable to determine [] Other: Condition Present on Admission: [] Yes [] No []Clinically Undeterminable Please also document in your Progress Notes and/or Discharge Summary and indicate if the condition was present on admission. CAMPBELL
--- NOTE | 2018-01-22 14:07 | General Progress Note ---
Assessment/Plan Problem List: (1) Cirrhosis ICD Codes: K74.60 - Unspecified cirrhosis of liver SNOMED: 96427165 (2) CHF (congestive heart failure) ICD Codes: I50.9 - Heart failure, unspecified SNOMED: 54503311 (3) Hepatitis C ICD Codes: B19.20 - Hepatitis C SNOMED: 59075064 (4) Abdominal pain ICD Codes: R10.9 - Abdominal pain SNOMED: 18039152 Status: stable, progressing Assessment/Plan ot pt diet diurese pending pericentesis cbc bmp am Subjective Constitutional: Reports: weakness Respiratory: Reports: shortness of breath Allergies: Coded Allergies: HYDROMORPHONE (Verified Allergy, Unknown, 12/28/10) All Systems: reviewed and negative except above Subjective weak in bed Objective Last 24 Hour Vital Signs Date Time Temp Pulse Resp B/P (MAP) Pulse Ox O2 Delivery O2 Flow Rate FiO2 01/22/18 13:12 134/85 01/22/18 13:12 134/85 01/22/18 12:00 97.5 88 18 134/85 (101) 98 97.5 01/22/18 10:38 70 108/76 01/22/18 10:38 70 01/22/18 10:37 70 108/76 01/22/18 09:00 Room Air 01/22/18 08:40 74 20 Room Air 99 01/22/18 08:00 97.6 70 20 108/76 (87) 99 97.6 01/22/18 08:00 97.6 70 20 108/76 (87) 99 97.6 01/22/18 08:00 71 01/22/18 04:00 97.2 71 18 103/66 (78) 99 97.2 01/22/18 04:00 70 01/22/18 00:00 97.7 68 18 108/71 (83) 98 97.7 01/22/18 00:00 70 01/21/18 21:00 Room Air 01/21/18 20:20 70 106/74 01/21/18 20:00 71 01/21/18 20:00 97.2 70 18 106/74 (85) 99 97.2 01/21/18 19:00 70 20 Room Air 99 01/21/18 17:20 70 114/84 8/8/18 16:00 70 01/21/18 16:00 97.4 71 20 114/84 (94) 98 97.4 Intake and Output 01/21/18 01/22/18 19:00 07:00 Intake Total 240 ml Output Total 600 ml 1600 ml Balance -360 ml -1600 ml Intake Oral 240 ml Output Urine Total 600 ml 1600 ml Laboratory Tests 01/22/18 07:10: White Blood Count 3.2L, Red Blood Count 4.37L, Hemoglobin 11.4L, Hematocrit 37.5L, Mean Corpuscular Volume 86, Mean Corpuscular Hemoglobin 26.1L, Mean Corpuscular Hemoglobin Concent 30.4L, Red Cell Distribution Width 19.5H, Platelet Count 178, Mean Platelet Volume 6.1L, Neutrophils (%) (Auto) , Lymphocytes (%) (Auto) , Monocytes (%) (Auto) , Eosinophils (%) (Auto) , Basophils (%) (Auto) , Differential Total Cells Counted 100, Neutrophils % ( Manual) 57, Lymphocytes % (Manual) 28, Monocytes % (Manual) 12H, Eosinophils % ( Manual) 2, Basophils % (Manual) 1, Band Neutrophils 0, Platelet Estimate Adequate, Platelet Morphology Normal, Hypochromasia 2+, Anisocytosis 2+, Prothrombin Time 23.9H, Prothromb Time International Ratio 2.4H, Activated Partial Thromboplast Time 41H, Sodium Level 136, Potassium Level 3.8, Chloride Level 102, Carbon Dioxide Level 28, Anion Gap 6, Blood Urea Nitrogen 25H, Creatinine 1.8H, Estimat Glomerular Filtration Rate 46.3, Glucose Level 123H, Calcium Level 8.4L Height (Feet): 5 Height (Inches): 9.00 Weight (Pounds): 160 General Appearance: lethargic EENT: normal ENT inspection Neck: normal alignment Cardiovascular: normal peripheral pulses, normal rate, regular rhythm Respiratory/Chest: chest wall non-tender, decreased breath sounds Abdomen: normal bowel sounds, non tender, soft Extremities: normal inspection Edema: 1+ Arm (L), 1+ Arm (R), 1+ Leg (L), 1+ Leg (R), 1+ Pedal (L), 1+ Pedal ( R), 1+ Generalized Edema: trace edema Neurologic: responsive, motor weakness Skin: normal pigmentation, warm/dry Shahid Cherry DO Jan 22, 2018 14:07
[2018-01-22] MEDS: Miralax 17gm pkt ORAL SCH (21:00)
[2018-01-22] MEDS: oxyCODONE 15mg IR tab ORAL PRN (23:13)
[2018-01-23] VITALS: BP 94/64
[2018-01-23 04:00] VITALS: BP 93/59
[2018-01-23] MEDS: HydrALAZINE 25mg tab ORAL SCH ×3 (05:42→22:18)
[2018-01-23] MEDS: Levothyroxine 125mcg tab ORAL SCH (06:51)
[2018-01-23 08:00] VITALS: BP 107/54
[2018-01-23] MEDS: Carvedilol 6.25mg Tab ORAL SCH ×2 (09:00→20:59)
[2018-01-23] MEDS: Sotalol 80mg tab ORAL SCH ×2 (09:00→17:23)
[2018-01-23] MEDS: Docusate 100mg cap ORAL SCH ×2 (09:39→17:23)
[2018-01-23] MEDS: Xarelto 10mg tab ORAL SCH (09:39)
[2018-01-23] MEDS: Digoxin 0.125mg tab ORAL SCH (09:40)
--- NOTE | 2018-01-23 11:50 | General Progress Note ---
Assessment/Plan Problem List: (1) Cirrhosis ICD Codes: K74.60 - Unspecified cirrhosis of liver SNOMED: 71165431 (2) CHF (congestive heart failure) ICD Codes: I50.9 - Heart failure, unspecified SNOMED: 68153272 (3) Hepatitis C ICD Codes: B19.20 - Hepatitis C SNOMED: 20357008 (4) Abdominal pain ICD Codes: R10.9 - Abdominal pain SNOMED: 75862738 Status: stable, progressing Assessment/Plan ot pt diet diurese pending pericentesis cbc bmp am Subjective Constitutional: Reports: weakness Allergies: Coded Allergies: HYDROMORPHONE (Verified Allergy, Unknown, 12/28/10) All Systems: reviewed and negative except above Subjective weak in bed Objective Last 24 Hour Vital Signs Date Time Temp Pulse Resp B/P (MAP) Pulse Ox O2 Delivery O2 Flow Rate FiO2 01/23/18 10:22 74 18 Room Air 99 01/23/18 10:22 Room Air 01/23/18 10:22 99 Room Air 01/23/18 09:40 71 01/23/18 09:00 Room Air 01/23/18 09:00 71 107/54 01/23/18 09:00 71 107/54 01/23/18 08:00 97.2 71 20 107/54 (71) 95 97.2 01/23/18 08:00 72 01/23/18 06:00 89/59 01/23/18 05:42 93/59 01/23/18 04:00 97.6 69 18 93/59 (70) 97 97.6 01/23/18 04:00 70 01/23/18 00:22 94/64 01/23/18 00:00 73 01/23/18 00:00 70 20 94/64 (74) 98 01/22/18 23:13 100/64 01/22/18 23:11 100/64 (76) 01/22/18 22:08 80 93/63 01/22/18 22:00 93/63 (73) 01/22/18 21:00 Room Air 01/22/18 20:00 74 01/22/18 20:00 98.1 80 20 96/60 (72) 99 98.1 01/22/18 19:02 72 18 Room Air 99 01/22/18 17:45 74 97/51 01/22/18 16:00 74 01/22/18 16:00 97.6 69 21 97/51 (66) 97 97.6 01/22/18 13:12 134/85 01/22/18 13:12 134/85 01/22/18 12:00 70 01/22/18 12:00 97.5 88 18 134/85 (101) 98 97.5 Intake and Output 01/22/18 01/23/18 19:00 07:00 Intake Total 1000 ml Output Total 1500 ml 4775 ml Balance -1500 ml -3775 ml Intake Oral 1000 ml Output Urine Total 1500 ml 4775 ml # Voids 13 # Bowel Movements 2 Height (Feet): 5 Height (Inches): 9.00 Weight (Pounds): 149 General Appearance: lethargic EENT: normal ENT inspection Neck: normal alignment Cardiovascular: normal peripheral pulses, normal rate, regular rhythm Respiratory/Chest: chest wall non-tender, decreased breath sounds Abdomen: non tender, soft, hypoactive bowel sounds, distended Extremities: normal inspection Edema: 1+ Arm (L), 1+ Arm (R), 1+ Leg (L), 1+ Leg (R), 1+ Pedal (L), 1+ Pedal ( R), 1+ Generalized Edema: trace edema Neurologic: responsive, motor weakness Skin: normal pigmentation, warm/dry Shahid Cherry DO Jan 23, 2018 11:50
[2018-01-23 12:00] VITALS: BP 103/63
--- NOTE | 2018-01-23 12:02 | Cardiology Progress Note ---
Assessment/Plan Status: stable Assessment/Plan Assessment: (1) Right-sided heart failure (2) Cirrhosis (3) Emphysema lung (4) ICD (implantable cardioverter-defibrillator) in place (5) EF < 20% (6) AFIB (7) Non sustained VT Plan: IV fluids Albumin to improve oncotic pressures Paracentesis pending Abdominal US Sotal for VT - ICD interrogation Increase coreg to 6.25 and titrate to goal 25 BID if tolerated Goal heart rate 60 to reduce mitral regurgitant volume Lasix to reduce filling pressures/congestion Start hydralazine/imur for heart failure Start low dose aldactone if BP/renal function/K levels tolerate No indication for cath/stress test Subjective Cardiovascular: Reports: no symptoms Respiratory: Reports: no symptoms Gastrointestinal/Abdominal: Reports: no symptoms Genitourinary: Reports: no symptoms Subjective No acute events, vitals stable, no chest pain. Echo with LVEF 10 percent and severe functional MR Reported eight beats of V-tach at 0851, blood sijfhtcl=691/54, currently patient is v-paced with heart rate=74. Objective Last 24 Hour Vital Signs Date Time Temp Pulse Resp B/P (MAP) Pulse Ox O2 Delivery O2 Flow Rate FiO2 01/23/18 10:22 74 18 Room Air 99 01/23/18 10:22 Room Air 01/23/18 10:22 99 Room Air 01/23/18 09:40 71 01/23/18 09:00 Room Air 01/23/18 09:00 71 107/54 01/23/18 09:00 71 107/54 01/23/18 08:00 97.2 71 20 107/54 (71) 95 97.2 01/23/18 08:00 72 01/23/18 06:00 89/59 01/23/18 05:42 93/59 01/23/18 04:00 97.6 69 18 93/59 (70) 97 97.6 01/23/18 04:00 70 01/23/18 00:22 94/64 01/23/18 00:00 73 01/23/18 00:00 70 20 94/64 (74) 98 01/22/18 23:13 100/64 01/22/18 23:11 100/64 (76) 01/22/18 22:08 80 93/63 8/9/18 22:00 93/63 (73) 01/22/18 21:00 Room Air 01/22/18 20:00 74 01/22/18 20:00 98.1 80 20 96/60 (72) 99 98.1 01/22/18 19:02 72 18 Room Air 99 01/22/18 17:45 74 97/51 01/22/18 16:00 74 01/22/18 16:00 97.6 69 21 97/51 (66) 97 97.6 01/22/18 13:12 134/85 01/22/18 13:12 134/85 01/22/18 12:00 70 01/22/18 12:00 97.5 88 18 134/85 (101) 98 97.5 General Appearance: no apparent distress, alert EENT: PERRL/EOMI, normal ENT inspection Neck: non-tender, normal alignment Rhythm: Afib, VT Cardiovascular: normal peripheral pulses Respiratory/Chest: chest wall non-tender, lungs clear Abdomen: normal bowel sounds, non tender Extremities: normal range of motion, non-tender 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 Jan 23, 2018 12:02
--- NOTE | 2018-01-23 12:11 | Pulmonology Progress Note ---
Assessment/Plan Problems: (1) Fluid overload (2) EF < 20% (3) Ascites (4) Emphysema lung (5) Right-sided heart failure (6) Cirrhosis (7) ICD (implantable cardioverter-defibrillator) in place Assessment/Plan diuresed 6 liters yesterday lasix 40 IV q 8 optimize cardiac meds on anticoagulants check electrolytes f/u bun/creatinine Subjective ROS Limited/Unobtainable: No Interval Events: still congested Constitutional: Reports: no symptoms HEENT: Repors: no symptoms Respiratory: Reports: no symptoms Allergies: Coded Allergies: HYDROMORPHONE (Verified Allergy, Unknown, 12/28/10) Objective Last 24 Hour Vital Signs Date Time Temp Pulse Resp B/P (MAP) Pulse Ox O2 Delivery O2 Flow Rate FiO2 01/23/18 12:00 97.3 71 20 103/63 (76) 99 97.3 01/23/18 10:22 74 18 Room Air 99 01/23/18 10:22 Room Air 01/23/18 10:22 99 Room Air 01/23/18 09:40 71 01/23/18 09:00 Room Air 01/23/18 09:00 71 107/54 01/23/18 09:00 71 107/54 01/23/18 08:00 97.2 71 20 107/54 (71) 95 97.2 01/23/18 08:00 72 01/23/18 06:00 89/59 01/23/18 05:42 93/59 01/23/18 04:00 97.6 69 18 93/59 (70) 97 97.6 01/23/18 04:00 70 01/23/18 00:22 94/64 01/23/18 00:00 73 01/23/18 00:00 70 20 94/64 (74) 98 01/22/18 23:13 100/64 01/22/18 23:11 100/64 (76) 01/22/18 22:08 80 93/63 01/22/18 22:00 93/63 (73) 01/22/18 21:00 Room Air 01/22/18 20:00 74 01/22/18 20:00 98.1 80 20 96/60 (72) 99 98.1 01/22/18 19:02 72 18 Room Air 99 01/22/18 17:45 74 97/51 01/22/18 16:00 74 01/22/18 16:00 97.6 69 21 97/51 (66) 97 97.6 01/22/18 13:12 134/85 01/22/18 13:12 134/85 Intake and Output 01/22/18 01/23/18 19:00 07:00 Intake Total 1000 ml Output Total 1500 ml 4775 ml Balance -1500 ml -3775 ml Intake Oral 1000 ml Output Urine Total 1500 ml 4775 ml # Voids 13 # Bowel Movements 2 General Appearance: WD/WN HEENT: normocephalic, atraumatic Respiratory/Chest: chest wall non-tender, lungs clear Cardiovascular: normal peripheral pulses, regular rhythm Abdomen: normal bowel sounds, soft, non tender Extremities: no cyanosis Current Medications Medications (Trade) Dose Ordered Sig/Allyn Route PRN Reason Start Time Stop Time Status Last Admin Dose Admin Acetaminophen (Tylenol) 650 mg Q4H PRN ORAL Fever 01/20/18 21:15 02/19/18 21:14 01/23/18 05:42 Albuterol/ Ipratropium (Albuterol/ Ipratropium) 3 ml EVERY 4 HOURS PRN HHN Shortness of Breath 01/20/18 21:15 01/25/18 21:14 Carvedilol (Coreg) 6.25 mg EVERY 12 HOURS ORAL 01/21/18 21:00 02/20/18 20:59 01/22/18 22:08 Dextrose (Dextrose 50%) STAT PRN IV Hypoglycemia 01/20/18 21:15 02/19/18 21:14 Docusate Sodium (Colace) 100 mg TWICE A DAY ORAL 01/21/18 18:00 02/20/18 17:59 01/23/18 09:39 Furosemide (Lasix) 40 mg EVERY 8 HOURS IV 01/23/18 14:00 02/19/18 21:59 UNV Gabapentin (Neurontin) 100 mg BID ORAL 01/21/18 09:00 02/20/18 08:59 01/23/18 09:39 Hydralazine HCl (Apresoline) 25 mg Q8HR ORAL 01/22/18 14:00 02/21/18 13:59 01/23/18 05:42 Isosorbide Dinitrate (Isordil) 10 mg Q8HR ORAL 01/22/18 14:00 02/21/18 13:59 01/23/18 00:22 Levothyroxine Sodium (Synthroid) 125 mcg BEFORE BREAKFAST ORAL 01/21/18 06:30 02/20/18 06:29 01/23/18 06:51 Ondansetron HCl (Zofran) 4 mg Q6H PRN IVP Nausea & Vomiting 01/20/18 21:15 02/19/18 21:14 Oxycodone HCl (Roxicodone) 15 mg Q6H PRN ORAL For Pain 01/20/18 21:15 01/27/18 21:14 01/22/18 23:13 Polyethylene Glycol (Miralax) 17 gm BEDTIME ORAL 01/21/18 21:00 02/20/18 20:59 01/21/18 20:23 Polyethylene Glycol (Miralax) 17 gm DAILYPRN PRN ORAL Constipation 01/20/18 21:15 02/19/18 21:14 Rivaroxaban (Xarelto) 15 mg DAILY ORAL 01/21/18 09:00 02/20/18 08:59 01/23/18 09:39 Sotalol HCl (Betapace) 80 mg BID ORAL 01/21/18 09:00 02/20/18 08:59 01/22/18 10:38 Temazepam (Restoril) 15 mg HSPRN PRN ORAL Insomnia 01/20/18 21:15 01/27/18 21:14 01/23/18 01:55 Andrzej Chavarria MD Jan 23, 2018 12:11
[2018-01-23 13:32] LABS: HEMATOCRIT 37.4 % (42.0-52.0); HEMOGLOBIN 11.2 G/DL (14.2-18.0); MEAN CORPUSCULAR VOLUME 84 FL (80-99); PLATELET COUNT 200 K/UL (150-450); RED BLOOD COUNT 4.46 M/UL (4.70-6.10); RED CELL DISTRIBUTION WIDTH 19.5 % (11.6-14.8); WHITE BLOOD COUNT 3.3 K/UL (4.8-10.8)
[2018-01-23 13:49] LABS: ALANINE AMINOTRANSFERASE 18 U/L (12-78); ALBUMIN/GLOBULIN RATIO 0.8 (1.0-2.7); ALKALINE PHOSPHATASE 115 U/L (46-116); ANION GAP 6 mmol/L (5-15); ASPARTATE AMINO TRANSFERASE 26 U/L (15-37); BILIRUBIN,TOTAL 2.3 MG/DL (0.2-1.0); BLOOD UREA NITROGEN 22 mg/dL (7-18); CALCIUM 8.9 MG/DL (8.5-10.1); CARBON DIOXIDE 32 MMOL/L (21-32); CHLORIDE 98 MMOL/L (98-107); CREATININE 1.6 MG/DL (0.55-1.30); POTASSIUM 3.2 MMOL/L (3.5-5.1); SODIUM 136 MMOL/L (136-145)
[2018-01-23 13:55] LABS: BILIRUBIN,DIRECT 1.4 MG/DL (0.0-0.3)
[2018-01-23 16:00] VITALS: BP 108/62
[2018-01-23] MEDS ORDERED: D5W IVPB SCH (16:30)
[2018-01-23] MEDS ORDERED: PHYTONADIONE IVPB SCH (16:30)
--- NOTE | 2018-01-23 16:50 | Diagnostic Imaging Report ---
APPROVED REPORT CPT Code: 51444 Present Symptoms Lower Extremity Edema: Bilateral Comments: Chest pain BILATERAL: Imaging reveals a patent deep venous system bilaterally. There is no evidence of thrombus within the femoral, popliteal or tibial segments. The greater saphenous veins are also within normal limits. Doppler indicates normal spontaneous flow within these segments.
[2018-01-23 20:00] VITALS: BP 105/68
[2018-01-23] MEDS: oxyCODONE 15mg IR tab ORAL PRN (20:59)
[2018-01-23] MEDS: Miralax 17gm pkt ORAL SCH (20:59)
[2018-01-24] VITALS: BP 93/62
[2018-01-24 04:00] VITALS: BP 104/73
[2018-01-24] MEDS: Levothyroxine 125mcg tab ORAL SCH (06:19)
[2018-01-24] MEDS: HydrALAZINE 25mg tab ORAL SCH ×3 (06:19→21:53)
[2018-01-24 07:41] LABS: HEMOGLOBIN 11.2 G/DL (14.2-18.0); MEAN CORPUSCULAR VOLUME 83 FL (80-99); PLATELET COUNT 194 K/UL (150-450); RED BLOOD COUNT 4.19 M/UL (4.70-6.10); RED CELL DISTRIBUTION WIDTH 19.2 % (11.6-14.8); WHITE BLOOD COUNT 3.1 K/UL (4.8-10.8)
[2018-01-24 08:00] VITALS: BP 101/61
[2018-01-24 08:15] LABS: ALANINE AMINOTRANSFERASE 17 U/L (12-78); ALBUMIN/GLOBULIN RATIO 0.8 (1.0-2.7); ALKALINE PHOSPHATASE 103 U/L (46-116); ANION GAP 3 mmol/L (5-15); ASPARTATE AMINO TRANSFERASE 24 U/L (15-37); BILIRUBIN,TOTAL 1.9 MG/DL (0.2-1.0); BLOOD UREA NITROGEN 21 mg/dL (7-18); CALCIUM 9.1 MG/DL (8.5-10.1); CARBON DIOXIDE 36 MMOL/L (21-32); CHLORIDE 97 MMOL/L (98-107); CREATININE 1.4 MG/DL (0.55-1.30); POTASSIUM 3.3 MMOL/L (3.5-5.1); SODIUM 135 MMOL/L (136-145)
[2018-01-24 08:16] LABS: BILIRUBIN,DIRECT 1.2 MG/DL (0.0-0.3)
[2018-01-24] MEDS: Sotalol 80mg tab ORAL SCH ×2 (08:20→16:44)
[2018-01-24] MEDS: Carvedilol 6.25mg Tab ORAL SCH ×2 (08:20→20:43)
[2018-01-24] MEDS: Docusate 100mg cap ORAL SCH ×2 (08:20→16:44)
[2018-01-24] MEDS: oxyCODONE 15mg IR tab ORAL PRN ×3 (08:54→22:58)
--- NOTE | 2018-01-24 09:10 | General Progress Note ---
Assessment/Plan Problem List: (1) Cirrhosis ICD Codes: K74.60 - Unspecified cirrhosis of liver SNOMED: 87505425 (2) CHF (congestive heart failure) ICD Codes: I50.9 - Heart failure, unspecified SNOMED: 63939597 (3) Hepatitis C ICD Codes: B19.20 - Hepatitis C SNOMED: 95748655 (4) Abdominal pain ICD Codes: R10.9 - Abdominal pain SNOMED: 94383626 Status: stable, progressing Assessment/Plan ot pt diet diurese pending pericentesis cbc bmp am Subjective Constitutional: Reports: weakness Respiratory: Reports: shortness of breath Allergies: Coded Allergies: HYDROMORPHONE (Verified Allergy, Unknown, 12/28/10) All Systems: reviewed and negative except above Subjective weak in bed Objective Last 24 Hour Vital Signs Date Time Temp Pulse Resp B/P (MAP) Pulse Ox O2 Delivery O2 Flow Rate FiO2 01/24/18 09:00 Room Air 01/24/18 08:20 72 100/70 01/24/18 08:20 72 100/70 01/24/18 08:00 98.1 70 20 101/61 (74) 97 98.1 01/24/18 06:20 104/73 01/24/18 06:19 104/73 01/24/18 04:00 69 01/24/18 04:00 97.8 71 18 104/73 (83) 97 97.8 01/24/18 00:00 70 01/24/18 00:00 98.1 72 18 93/62 (72) 96 98.1 01/23/18 22:18 133/66 01/23/18 22:18 133/66 01/23/18 21:00 Room Air 01/23/18 20:59 73 105/68 01/23/18 20:00 73 105/68 (80) 01/23/18 20:00 70 01/23/18 19:04 69 16 Room Air 21 01/23/18 19:04 99 Room Air 21 01/23/18 19:04 Room Air 21 01/23/18 17:23 72 103/63 01/23/18 16:04 103/63 01/23/18 16:00 72 01/23/18 16:00 97.7 71 20 108/62 (77) 99 97.7 01/23/18 14:09 103/63 01/23/18 12:00 71 01/23/18 12:00 97.3 71 20 103/63 (76) 99 97.3 01/23/18 10:22 74 18 Room Air 99 01/23/18 10:22 Room Air 01/23/18 10:22 99 Room Air 01/23/18 09:40 71 Intake and Output 01/23/18 01/24/18 19:00 07:00 Intake Total 960 ml 400 ml Output Total 1000 ml 1475 ml Balance -40 ml -1075 ml Intake Oral 960 ml 400 ml Output Urine Total 1000 ml 1475 ml # Voids 4 Laboratory Tests 01/23/18 12:55: White Blood Count 3.3L, Red Blood Count 4.46L, Hemoglobin 11.2L, Hematocrit 37.4L, Mean Corpuscular Volume 84, Mean Corpuscular Hemoglobin 25.2L, Mean Corpuscular Hemoglobin Concent 30.0L, Red Cell Distribution Width 19.5H, Platelet Count 200, Mean Platelet Volume 6.9, Neutrophils (%) (Auto) , Lymphocytes (%) (Auto) , Monocytes (%) (Auto) , Eosinophils (%) (Auto) , Basophils (%) (Auto) , Differential Total Cells Counted 100, Neutrophils % ( Manual) 72, Lymphocytes % (Manual) 15L, Monocytes % (Manual) 10, Eosinophils % ( Manual) 2, Basophils % (Manual) 1, Band Neutrophils 0, Platelet Estimate Adequate, Platelet Morphology Normal, Anisocytosis 1+, Target Cells 1+, Schistocytes 1+, Sodium Level 136, Potassium Level 3.2L, Chloride Level 98, Carbon Dioxide Level 32, Anion Gap 6, Blood Urea Nitrogen 22H, Creatinine 1.6H, Estimat Glomerular Filtration Rate 53.0, Glucose Level 119H, Calcium Level 8.9, Total Bilirubin 2.3H, Direct Bilirubin 1.4H, Aspartate Amino Transf (AST/SGOT) 26, Alanine Aminotransferase (ALT/SGPT) 18, Alkaline Phosphatase 115, Pro-B- Type Natriuretic Peptide 2760H, Total Protein 7.0, Albumin 3.0L, Globulin 4.0, Albumin/Globulin Ratio 0.8L 01/24/18 06:09: White Blood Count 3.1L, Red Blood Count 4.19L, Hemoglobin 11.2L, Hematocrit 35.0L, Mean Corpuscular Volume 83, Mean Corpuscular Hemoglobin 26.7L, Mean Corpuscular Hemoglobin Concent 32.0, Red Cell Distribution Width 19.2H, Platelet Count 194, Mean Platelet Volume 6.8, Neutrophils (%) (Auto) , Lymphocytes (%) (Auto) , Monocytes (%) (Auto) , Eosinophils (%) (Auto) , Basophils (%) (Auto) , Neutrophils % (Manual) [Pending], Lymphocytes % (Manual) [Pending], Platelet Estimate [Pending], Platelet Morphology [Pending], Sodium Level 135L, Potassium Level 3.3L, Chloride Level 97L, Carbon Dioxide Level 36H, Anion Gap 3L, Blood Urea Nitrogen 21H, Creatinine 1.4H, Estimat Glomerular Filtration Rate > 60, Glucose Level 82, Calcium Level 9.1, Total Bilirubin 1.9H , Direct Bilirubin 1.2H, Aspartate Amino Transf (AST/SGOT) 24, Alanine Aminotransferase (ALT/SGPT) 17, Alkaline Phosphatase 103, Pro-B-Type Natriuretic Peptide 2489H, Total Protein 6.9, Albumin 3.0L, Globulin 3.9, Albumin/Globulin Ratio 0.8L Height (Feet): 5 Height (Inches): 9.00 Weight (Pounds): 141 General Appearance: lethargic EENT: normal ENT inspection Neck: normal alignment Cardiovascular: normal peripheral pulses, normal rate, regular rhythm Respiratory/Chest: chest wall non-tender, decreased breath sounds Abdomen: normal bowel sounds, non tender, soft Extremities: normal inspection Edema: 1+ Arm (L), 1+ Arm (R), 1+ Leg (L), 1+ Leg (R), 1+ Pedal (L), 1+ Pedal ( R), 1+ Generalized Edema: trace edema Neurologic: responsive, motor weakness Skin: normal pigmentation, warm/dry Shahid Cherry DO Jan 24, 2018 09:10
--- NOTE | 2018-01-24 09:30 | Cardiology Progress Note ---
Assessment/Plan Status: stable Assessment/Plan Assessment: (1) Right-sided heart failure (2) Cirrhosis (3) Emphysema lung (4) ICD (implantable cardioverter-defibrillator) in place (5) EF < 20% (6) AFIB (7) Non sustained VT Plan: IV fluids Albumin to improve oncotic pressures Paracentesis pending Abdominal US Sotal for VT - ICD interrogation Increase coreg to 6.25 and titrate to goal 25 BID if tolerated Goal heart rate 60 to reduce mitral regurgitant volume Lasix to reduce filling pressures/congestion Start hydralazine/imur for heart failure Start low dose aldactone if BP/renal function/K levels tolerate No indication for cath/stress test Subjective Cardiovascular: Reports: no symptoms Respiratory: Reports: no symptoms Gastrointestinal/Abdominal: Reports: no symptoms Genitourinary: Reports: no symptoms Subjective No acute events, vitals stable, no chest pain. Echo with LVEF 10 percent and severe functional MR Patient making good diuresis, awaiting INR to come down, vitamin K given yesterday No complaints Objective Last 24 Hour Vital Signs Date Time Temp Pulse Resp B/P (MAP) Pulse Ox O2 Delivery O2 Flow Rate FiO2 01/24/18 09:00 Room Air 01/24/18 08:20 72 100/70 01/24/18 08:20 72 100/70 01/24/18 08:00 98.1 70 20 101/61 (74) 97 98.1 01/24/18 06:20 104/73 01/24/18 06:19 104/73 01/24/18 04:00 69 01/24/18 04:00 97.8 71 18 104/73 (83) 97 97.8 01/24/18 00:00 70 01/24/18 00:00 98.1 72 18 93/62 (72) 96 98.1 01/23/18 22:18 133/66 01/23/18 22:18 133/66 01/23/18 21:00 Room Air 01/23/18 20:59 73 105/68 01/23/18 20:00 73 105/68 (80) 01/23/18 20:00 70 01/23/18 19:04 69 16 Room Air 21 01/23/18 19:04 99 Room Air 21 01/23/18 19:04 Room Air 21 01/23/18 17:23 72 103/63 8/10/18 16:04 103/63 01/23/18 16:00 72 01/23/18 16:00 97.7 71 20 108/62 (77) 99 97.7 01/23/18 14:09 103/63 01/23/18 12:00 71 01/23/18 12:00 97.3 71 20 103/63 (76) 99 97.3 01/23/18 10:22 74 18 Room Air 99 01/23/18 10:22 Room Air 01/23/18 10:22 99 Room Air 01/23/18 09:40 71 General Appearance: no apparent distress, alert EENT: PERRL/EOMI, normal ENT inspection Neck: non-tender, normal alignment Rhythm: NSR Cardiovascular: normal peripheral pulses, normal rate, regular rhythm Respiratory/Chest: chest wall non-tender, lungs clear Abdomen: normal bowel sounds, non tender Extremities: normal range of motion, non-tender 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 Intake and Output 01/23/18 01/24/18 19:00 07:00 Intake Total 960 ml 400 ml Output Total 1000 ml 1475 ml Balance -40 ml -1075 ml Intake Oral 960 ml 400 ml Output Urine Total 1000 ml 1475 ml # Voids 4 Laboratory Tests Test 01/23/18 12:55 01/24/18 06:09 White Blood Count 3.3 K/UL (4.8-10.8) L 3.1 K/UL (4.8-10.8) L Red Blood Count 4.46 M/UL (4.70-6.10) L 4.19 M/UL (4.70-6.10) L Hemoglobin 11.2 G/DL (14.2-18.0) L 11.2 G/DL (14.2-18.0) L Hematocrit 37.4 % (42.0-52.0) L 35.0 % (42.0-52.0) L Mean Corpuscular Volume 84 FL (80-99) 83 FL (80-99) Mean Corpuscular Hemoglobin 25.2 PG (27.0-31.0) L 26.7 PG (27.0-31.0) L Mean Corpuscular Hemoglobin Concent 30.0 G/DL (32.0-36.0) L 32.0 G/DL (32.0-36.0) Red Cell Distribution Width 19.5 % (11.6-14.8) H 19.2 % (11.6-14.8) H Platelet Count 200 K/UL (150-450) 194 K/UL (150-450) Mean Platelet Volume 6.9 FL (6.5-10.1) 6.8 FL (6.5-10.1) Neutrophils (%) (Auto) % (45.0-75.0) % (45.0-75.0) Lymphocytes (%) (Auto) % (20.0-45.0) % (20.0-45.0) Monocytes (%) (Auto) % (1.0-10.0) % (1.0-10.0) Eosinophils (%) (Auto) % (0.0-3.0) % (0.0-3.0) Basophils (%) (Auto) % (0.0-2.0) % (0.0-2.0) Differential Total Cells Counted 100 Neutrophils % (Manual) 72 % (45-75) Pending Lymphocytes % (Manual) 15 % (20-45) L Pending Monocytes % (Manual) 10 % (1-10) Eosinophils % (Manual) 2 % (0-3) Basophils % (Manual) 1 % (0-2) Band Neutrophils 0 % (0-8) Platelet Estimate Adequate Pending Platelet Morphology Normal Pending Anisocytosis 1+ Target Cells 1+ Schistocytes 1+ Sodium Level 136 MMOL/L (136-145) 135 MMOL/L (136-145) L Potassium Level 3.2 MMOL/L (3.5-5.1) L 3.3 MMOL/L (3.5-5.1) L Chloride Level 98 MMOL/L (98-107) 97 MMOL/L (98-107) L Carbon Dioxide Level 32 MMOL/L (21-32) 36 MMOL/L (21-32) H Anion Gap 6 mmol/L (5-15) 3 mmol/L (5-15) L Blood Urea Nitrogen 22 mg/dL (7-18) H 21 mg/dL (7-18) H Creatinine 1.6 MG/DL (0.55-1.30) H 1.4 MG/DL (0.55-1.30) H Estimat Glomerular Filtration Rate 53.0 mL/min (>60) > 60 mL/min (>60) Glucose Level 119 MG/DL (74-106) H 82 MG/DL (74-106) Calcium Level 8.9 MG/DL (8.5-10.1) 9.1 MG/DL (8.5-10.1) Total Bilirubin 2.3 MG/DL (0.2-1.0) H 1.9 MG/DL (0.2-1.0) H Direct Bilirubin 1.4 MG/DL (0.0-0.3) H 1.2 MG/DL (0.0-0.3) H Aspartate Amino Transf (AST/SGOT) 26 U/L (15-37) 24 U/L (15-37) Alanine Aminotransferase (ALT/SGPT) 18 U/L (12-78) 17 U/L (12-78) Alkaline Phosphatase 115 U/L (46-116) 103 U/L (46-116) Pro-B-Type Natriuretic Peptide 2760 pg/mL (0-125) H 2489 pg/mL (0-125) H Total Protein 7.0 G/DL (6.4-8.2) 6.9 G/DL (6.4-8.2) Albumin 3.0 G/DL (3.4-5.0) L 3.0 G/DL (3.4-5.0) L Globulin 4.0 g/dL 3.9 g/dL Albumin/Globulin Ratio 0.8 (1.0-2.7) L 0.8 (1.0-2.7) L Angelo Galvan M.D. Jan 24, 2018 09:30
--- NOTE | 2018-01-24 10:08 | Pulmonology Progress Note ---
Assessment/Plan Problems: (1) Fluid overload (2) EF < 20% (3) Ascites (4) Emphysema lung (5) Right-sided heart failure (6) Cirrhosis (7) ICD (implantable cardioverter-defibrillator) in place Assessment/Plan diuresed 4 liters yesterday. sofar -- 9 liters lasix 40 IV q 8 optimize cardiac meds on anticoagulants check electrolytes f/u bun/creatinine, creatinine decreasing Subjective ROS Limited/Unobtainable: No Constitutional: Reports: no symptoms HEENT: Repors: no symptoms Allergies: Coded Allergies: HYDROMORPHONE (Verified Allergy, Unknown, 12/28/10) Objective Last 24 Hour Vital Signs Date Time Temp Pulse Resp B/P (MAP) Pulse Ox O2 Delivery O2 Flow Rate FiO2 01/24/18 09:38 99 Room Air 21 01/24/18 09:38 Room Air 21 01/24/18 09:38 70 16 Room Air 01/24/18 09:00 Room Air 01/24/18 08:20 72 100/70 01/24/18 08:20 72 100/70 01/24/18 08:00 98.1 70 20 101/61 (74) 97 98.1 01/24/18 06:20 104/73 01/24/18 06:19 104/73 01/24/18 04:00 69 01/24/18 04:00 97.8 71 18 104/73 (83) 97 97.8 01/24/18 00:00 70 01/24/18 00:00 98.1 72 18 93/62 (72) 96 98.1 01/23/18 22:18 133/66 01/23/18 22:18 133/66 01/23/18 21:00 Room Air 01/23/18 20:59 73 105/68 01/23/18 20:00 73 105/68 (80) 01/23/18 20:00 70 01/23/18 19:04 69 16 Room Air 01/23/18 19:04 99 Room Air 21 01/23/18 19:04 Room Air 21 01/23/18 17:23 72 103/63 01/23/18 16:04 103/63 01/23/18 16:00 72 01/23/18 16:00 97.7 71 20 108/62 (77) 99 97.7 01/23/18 14:09 103/63 01/23/18 12:00 71 01/23/18 12:00 97.3 71 20 103/63 (76) 99 97.3 01/23/18 10:22 74 18 Room Air 99 01/23/18 10:22 Room Air 01/23/18 10:22 99 Room Air Intake and Output 01/23/18 01/24/18 19:00 07:00 Intake Total 960 ml 400 ml Output Total 1000 ml 1475 ml Balance -40 ml -1075 ml Intake Oral 960 ml 400 ml Output Urine Total 1000 ml 1475 ml # Voids 4 Objective General Appearance: cachectic HEENT: normocephalic Respiratory/Chest: chest wall non-tender, lungs clear Cardiovascular: normal peripheral pulses, normal rate Abdomen: normal bowel sounds, soft, non tender Genitourinary: normal external genitalia Extremities: no cyanosis, + edema ( less) Skin: no rash 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 Lymphatic: no neck adenopathy Laboratory Tests 01/23/18 12:55: White Blood Count 3.3L, Red Blood Count 4.46L, Hemoglobin 11.2L, Hematocrit 37.4L, Mean Corpuscular Volume 84, Mean Corpuscular Hemoglobin 25.2L, Mean Corpuscular Hemoglobin Concent 30.0L, Red Cell Distribution Width 19.5H, Platelet Count 200, Mean Platelet Volume 6.9, Neutrophils (%) (Auto) , Lymphocytes (%) (Auto) , Monocytes (%) (Auto) , Eosinophils (%) (Auto) , Basophils (%) (Auto) , Differential Total Cells Counted 100, Neutrophils % ( Manual) 72, Lymphocytes % (Manual) 15L, Monocytes % (Manual) 10, Eosinophils % ( Manual) 2, Basophils % (Manual) 1, Band Neutrophils 0, Platelet Estimate Adequate, Platelet Morphology Normal, Anisocytosis 1+, Target Cells 1+, Schistocytes 1+, Sodium Level 136, Potassium Level 3.2L, Chloride Level 98, Carbon Dioxide Level 32, Anion Gap 6, Blood Urea Nitrogen 22H, Creatinine 1.6H, Estimat Glomerular Filtration Rate 53.0, Glucose Level 119H, Calcium Level 8.9, Total Bilirubin 2.3H, Direct Bilirubin 1.4H, Aspartate Amino Transf (AST/SGOT) 26, Alanine Aminotransferase (ALT/SGPT) 18, Alkaline Phosphatase 115, Pro-B- Type Natriuretic Peptide 2760H, Total Protein 7.0, Albumin 3.0L, Globulin 4.0, Albumin/Globulin Ratio 0.8L 01/24/18 06:09: White Blood Count 3.1L, Red Blood Count 4.19L, Hemoglobin 11.2L, Hematocrit 35.0L, Mean Corpuscular Volume 83, Mean Corpuscular Hemoglobin 26.7L, Mean Corpuscular Hemoglobin Concent 32.0, Red Cell Distribution Width 19.2H, Platelet Count 194, Mean Platelet Volume 6.8, Neutrophils (%) (Auto) , Lymphocytes (%) (Auto) , Monocytes (%) (Auto) , Eosinophils (%) (Auto) , Basophils (%) (Auto) , Differential Total Cells Counted 100, Neutrophils % ( Manual) 64, Lymphocytes % (Manual) 22, Monocytes % (Manual) 14H, Eosinophils % ( Manual) 0, Basophils % (Manual) 0, Band Neutrophils 0, Platelet Estimate Adequate, Platelet Morphology Normal, Anisocytosis 1+, Target Cells 1+, Sodium Level 135L, Potassium Level 3.3L, Chloride Level 97L, Carbon Dioxide Level 36H, Anion Gap 3L, Blood Urea Nitrogen 21H, Creatinine 1.4H, Estimat Glomerular Filtration Rate > 60, Glucose Level 82, Calcium Level 9.1, Total Bilirubin 1.9H , Direct Bilirubin 1.2H, Aspartate Amino Transf (AST/SGOT) 24, Alanine Aminotransferase (ALT/SGPT) 17, Alkaline Phosphatase 103, Pro-B-Type Natriuretic Peptide 2489H, Total Protein 6.9, Albumin 3.0L, Globulin 3.9, Albumin/Globulin Ratio 0.8L, Hypochromasia 1+, Acanthocytes 1+ Current Medications Medications (Trade) Dose Ordered Sig/Allyn Route PRN Reason Start Time Stop Time Status Last Admin Dose Admin Acetaminophen (Tylenol) 650 mg Q4H PRN ORAL Fever 01/20/18 21:15 02/19/18 21:14 01/23/18 05:42 Albuterol/ Ipratropium (Albuterol/ Ipratropium) 3 ml EVERY 4 HOURS PRN HHN Shortness of Breath 01/20/18 21:15 01/25/18 21:14 Carvedilol (Coreg) 6.25 mg EVERY 12 HOURS ORAL 8/8/18 21:00 02/20/18 20:59 01/23/18 20:59 Dextrose (Dextrose 50%) STAT PRN IV Hypoglycemia 01/20/18 21:15 02/19/18 21:14 Docusate Sodium (Colace) 100 mg TWICE A DAY ORAL 01/21/18 18:00 02/20/18 17:59 01/24/18 08:20 Furosemide (Lasix) 40 mg EVERY 8 HOURS IV 01/23/18 14:00 02/19/18 21:59 01/24/18 06:19 Gabapentin (Neurontin) 100 mg BID ORAL 01/21/18 09:00 02/20/18 08:59 01/24/18 08:20 Hydralazine HCl (Apresoline) 25 mg Q8HR ORAL 01/22/18 14:00 02/21/18 13:59 01/24/18 06:19 Isosorbide Dinitrate (Isordil) 10 mg Q8HR ORAL 01/22/18 14:00 02/21/18 13:59 01/24/18 06:20 Levothyroxine Sodium (Synthroid) 125 mcg BEFORE BREAKFAST ORAL 01/21/18 06:30 02/20/18 06:29 01/24/18 06:19 Ondansetron HCl (Zofran) 4 mg Q6H PRN IVP Nausea & Vomiting 01/20/18 21:15 02/19/18 21:14 Oxycodone HCl (Roxicodone) 15 mg Q6H PRN ORAL For Pain 01/20/18 21:15 01/27/18 21:14 01/24/18 08:54 Polyethylene Glycol (Miralax) 17 gm BEDTIME ORAL 01/21/18 21:00 02/20/18 20:59 01/21/18 20:23 Polyethylene Glycol (Miralax) 17 gm DAILYPRN PRN ORAL Constipation 01/20/18 21:15 02/19/18 21:14 Potassium Chloride (K-Dur) 40 meq ONCE ORAL 01/24/18 10:00 01/24/18 11:00 Sotalol HCl (Betapace) 80 mg BID ORAL 01/21/18 09:00 02/20/18 08:59 01/23/18 17:23 Spironolactone (Aldactone) 25 mg DAILY ORAL 01/25/18 09:00 02/24/18 08:59 Temazepam (Restoril) 15 mg HSPRN PRN ORAL Insomnia 01/20/18 21:15 01/27/18 21:14 01/23/18 01:55 Andrzej Chavarria MD Jan 24, 2018 10:08
[2018-01-24 11:44] LABS: INR 1.5 (0.9-1.1)
[2018-01-24 12:00] VITALS: BP 107/72
[2018-01-24 16:00] VITALS: BP 108/73
[2018-01-24 20:00] VITALS: BP 92/62
[2018-01-24] MEDS: Miralax 17gm pkt ORAL SCH (20:43)
[2018-01-25] VITALS: BP 88/58
[2018-01-25 04:00] VITALS: BP 95/61
[2018-01-25] MEDS: HydrALAZINE 25mg tab ORAL SCH ×3 (06:39→21:51)
[2018-01-25] MEDS: Levothyroxine 125mcg tab ORAL SCH (06:40)
[2018-01-25] MEDS: oxyCODONE 15mg IR tab ORAL PRN ×2 (06:40→13:45)
[2018-01-25 07:46] LABS: HEMATOCRIT 37.3 % (42.0-52.0); HEMOGLOBIN 11.5 G/DL (14.2-18.0); MEAN CORPUSCULAR VOLUME 85 FL (80-99); PLATELET COUNT 206 K/UL (150-450); RED BLOOD COUNT 4.39 M/UL (4.70-6.10); RED CELL DISTRIBUTION WIDTH 19.8 % (11.6-14.8)
[2018-01-25 07:57] LABS: INR 1.3 (0.9-1.1)
[2018-01-25 08:00] VITALS: BP 91/61
[2018-01-25 08:30] LABS: ALANINE AMINOTRANSFERASE 18 U/L (12-78); ALBUMIN/GLOBULIN RATIO 0.7 (1.0-2.7); ALKALINE PHOSPHATASE 99 U/L (46-116); ANION GAP 6 mmol/L (5-15); ASPARTATE AMINO TRANSFERASE 27 U/L (15-37); BILIRUBIN,TOTAL 1.6 MG/DL (0.2-1.0); BLOOD UREA NITROGEN 18 mg/dL (7-18); CALCIUM 8.4 MG/DL (8.5-10.1); CARBON DIOXIDE 34 MMOL/L (21-32); CHLORIDE 94 MMOL/L (98-107); CREATININE 1.4 MG/DL (0.55-1.30); POTASSIUM 3.7 MMOL/L (3.5-5.1); SODIUM 134 MMOL/L (136-145)
[2018-01-25 08:31] LABS: BILIRUBIN,DIRECT 1.1 MG/DL (0.0-0.3)
[2018-01-25] MEDS: Sotalol 80mg tab ORAL SCH ×3 (08:46→17:47)
[2018-01-25] MEDS: Docusate 100mg cap ORAL SCH ×2 (08:49→17:47)
[2018-01-25] MEDS: Spironolactone 25mg tab ORAL SCH (08:49)
[2018-01-25] MEDS: Carvedilol 6.25mg Tab ORAL SCH ×2 (08:49→20:43)
--- NOTE | 2018-01-25 09:06 | General Progress Note ---
Assessment/Plan Problem List: (1) Cirrhosis ICD Codes: K74.60 - Unspecified cirrhosis of liver SNOMED: 40291772 (2) CHF (congestive heart failure) ICD Codes: I50.9 - Heart failure, unspecified SNOMED: 70520535 (3) Hepatitis C ICD Codes: B19.20 - Hepatitis C SNOMED: 26711655 (4) Abdominal pain ICD Codes: R10.9 - Abdominal pain SNOMED: 95913960 Status: stable, progressing Assessment/Plan ot pt diet diurese pending pericentesis cbc bmp am Subjective Constitutional: Reports: weakness Respiratory: Reports: shortness of breath Allergies: Coded Allergies: HYDROMORPHONE (Verified Allergy, Unknown, 12/28/10) All Systems: reviewed and negative except above Subjective weak in bed Objective Last 24 Hour Vital Signs Date Time Temp Pulse Resp B/P (MAP) Pulse Ox O2 Delivery O2 Flow Rate FiO2 01/25/18 08:46 76 95/61 01/25/18 08:40 76 16 Room Air 01/25/18 06:39 95/61 01/25/18 06:39 95/61 01/25/18 04:00 70 01/25/18 04:00 97.7 73 21 95/61 (72) 98 97.7 01/25/18 00:00 98.1 71 18 88/58 (68) 98 98.1 01/25/18 00:00 71 01/24/18 22:30 Room Air 21 01/24/18 22:10 74 16 Room Air 21 01/24/18 21:53 92/62 01/24/18 21:53 92/62 01/24/18 21:00 Room Air 01/24/18 20:43 71 92/62 01/24/18 20:30 97 Room Air 21 01/24/18 20:00 70 01/24/18 20:00 97.6 71 18 92/62 (72) 97 97.6 01/24/18 16:44 70 108/73 01/24/18 16:00 70 01/24/18 16:00 97.8 71 20 108/73 (85) 97 97.8 01/24/18 13:18 107/72 01/24/18 13:18 107/72 01/24/18 12:00 70 01/24/18 12:00 97.1 65 20 107/72 (84) 96 97.1 01/24/18 09:38 99 Room Air 21 01/24/18 09:38 Room Air 21 01/24/18 09:38 70 16 Room Air 21 Intake and Output 01/24/18 01/25/18 19:00 07:00 Intake Total 360 ml Output Total 2400 ml 300 ml Balance -2040 ml -300 ml Intake Oral 360 ml Output Urine Total 2400 ml 300 ml Laboratory Tests 01/24/18 11:15: Prothrombin Time 15.2H, Prothromb Time International Ratio 1.5H 01/25/18 05:40: Prothrombin Time 13.1H, Prothromb Time International Ratio 1.3H, White Blood Count 3.0L, Red Blood Count 4.39L, Hemoglobin 11.5L, Hematocrit 37.3L, Mean Corpuscular Volume 85, Mean Corpuscular Hemoglobin 26.2L, Mean Corpuscular Hemoglobin Concent 30.8L, Red Cell Distribution Width 19.8H, Platelet Count 206 , Mean Platelet Volume 7.0, Neutrophils (%) (Auto) , Lymphocytes (%) (Auto) , Monocytes (%) (Auto) , Eosinophils (%) (Auto) , Basophils (%) (Auto) , Neutrophils % (Manual) [Pending], Lymphocytes % (Manual) [Pending], Platelet Estimate [Pending], Platelet Morphology [Pending], Sodium Level 134L, Potassium Level 3.7, Chloride Level 94L, Carbon Dioxide Level 34H, Anion Gap 6, Blood Urea Nitrogen 18, Creatinine 1.4H, Estimat Glomerular Filtration Rate > 60, Glucose Level 121H, Calcium Level 8.4L, Total Bilirubin 1.6H, Direct Bilirubin 1.1H, Aspartate Amino Transf (AST/SGOT) 27, Alanine Aminotransferase (ALT/SGPT) 18, Alkaline Phosphatase 99, Pro-B-Type Natriuretic Peptide 2418H, Total Protein 7.1, Albumin 3.0L, Globulin 4.1, Albumin/Globulin Ratio 0.7L Height (Feet): 5 Height (Inches): 9.00 Weight (Pounds): 141 General Appearance: lethargic EENT: normal ENT inspection Neck: normal alignment Cardiovascular: normal peripheral pulses, normal rate, regular rhythm Respiratory/Chest: chest wall non-tender, decreased breath sounds Abdomen: normal bowel sounds, non tender, soft Extremities: normal inspection Edema: 1+ Arm (L), 1+ Arm (R), 1+ Leg (L), 1+ Leg (R), 1+ Pedal (L), 1+ Pedal ( R), 1+ Generalized Edema: trace edema Neurologic: responsive, motor weakness Skin: normal pigmentation, warm/dry Shahid Cherry DO Jan 25, 2018 09:06
--- NOTE | 2018-01-25 11:08 | Cardiology Progress Note ---
Assessment/Plan Status: stable Assessment/Plan Assessment: (1) Right-sided heart failure (2) Cirrhosis (3) Emphysema lung (4) ICD (implantable cardioverter-defibrillator) in place (5) EF < 20% (6) AFIB (7) Non sustained VT Plan: Albumin prn hypotension Paracentesis pending, INR now <2 Abdominal US Sotal for VT - ICD interrogation Friday with Dr. Zhang Increase coreg to 6.25 and titrate to goal 25 BID if tolerated Goal heart rate 60 to reduce mitral regurgitant volume for functional MR Lasix to reduce filling pressures/congestion Continue hydralazine/imur for heart failure Continue aldactone if BP/renal function/K levels tolerate No indication for cath/stress test Start heparin gtt for AFIB Subjective Cardiovascular: Reports: no symptoms Respiratory: Reports: no symptoms Gastrointestinal/Abdominal: Reports: no symptoms Genitourinary: Reports: no symptoms Subjective No acute events, vitals stable, no chest pain. Echo with LVEF 10 percent and severe functional MR Patient making good diuresis, INR 1.3 now, will need to start heparin gtt No complaints He is down 9 kg since admission Objective Last 24 Hour Vital Signs Date Time Temp Pulse Resp B/P (MAP) Pulse Ox O2 Delivery O2 Flow Rate FiO2 01/25/18 09:00 Room Air 01/25/18 08:46 76 95/61 01/25/18 08:40 76 16 Room Air 21 01/25/18 08:00 70 01/25/18 08:00 98.1 71 16 91/61 (71) 100 98.1 01/25/18 06:39 95/61 01/25/18 06:39 95/61 01/25/18 04:00 70 01/25/18 04:00 97.7 73 21 95/61 (72) 98 97.7 01/25/18 00:00 98.1 71 18 88/58 (68) 98 98.1 01/25/18 00:00 71 01/24/18 22:30 Room Air 21 01/24/18 22:10 74 16 Room Air 21 01/24/18 21:53 92/62 01/24/18 21:53 92/62 01/24/18 21:00 Room Air 01/24/18 20:43 71 92/62 01/24/18 20:30 97 Room Air 21 01/24/18 20:00 70 01/24/18 20:00 97.6 71 18 92/62 (72) 97 97.6 01/24/18 16:44 70 108/73 01/24/18 16:00 70 01/24/18 16:00 97.8 71 20 108/73 (85) 97 97.8 01/24/18 13:18 107/72 01/24/18 13:18 107/72 01/24/18 12:00 70 01/24/18 12:00 97.1 65 20 107/72 (84) 96 97.1 General Appearance: no apparent distress, alert EENT: PERRL/EOMI, TMs normal Neck: normal alignment, supple Rhythm: Afib Cardiovascular: normal peripheral pulses, normal rate, irregularly irregular Respiratory/Chest: chest wall non-tender, lungs clear Abdomen: normal bowel sounds, distended Extremities: normal range of motion, non-tender 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 Intake and Output 01/24/18 01/25/18 19:00 07:00 Intake Total 360 ml Output Total 2400 ml 300 ml Balance -2040 ml -300 ml Intake Oral 360 ml Output Urine Total 2400 ml 300 ml Laboratory Tests Test 01/24/18 11:15 01/25/18 05:40 Prothrombin Time 15.2 SEC (9.30-11.50) H 13.1 SEC (9.30-11.50) H Prothromb Time International Ratio 1.5 (0.9-1.1) H 1.3 (0.9-1.1) H White Blood Count 3.0 K/UL (4.8-10.8) L Red Blood Count 4.39 M/UL (4.70-6.10) L Hemoglobin 11.5 G/DL (14.2-18.0) L Hematocrit 37.3 % (42.0-52.0) L Mean Corpuscular Volume 85 FL (80-99) Mean Corpuscular Hemoglobin 26.2 PG (27.0-31.0) L Mean Corpuscular Hemoglobin Concent 30.8 G/DL (32.0-36.0) L Red Cell Distribution Width 19.8 % (11.6-14.8) H Platelet Count 206 K/UL (150-450) Mean Platelet Volume 7.0 FL (6.5-10.1) Neutrophils (%) (Auto) % (45.0-75.0) Lymphocytes (%) (Auto) % (20.0-45.0) Monocytes (%) (Auto) % (1.0-10.0) Eosinophils (%) (Auto) % (0.0-3.0) Basophils (%) (Auto) % (0.0-2.0) Differential Total Cells Counted 100 Neutrophils % (Manual) 57 % (45-75) Lymphocytes % (Manual) 23 % (20-45) Monocytes % (Manual) 16 % (1-10) H Eosinophils % (Manual) 4 % (0-3) H Basophils % (Manual) 0 % (0-2) Band Neutrophils 0 % (0-8) Platelet Estimate Adequate Platelet Morphology Normal Hypochromasia 1+ Anisocytosis 1+ Sodium Level 134 MMOL/L (136-145) L Potassium Level 3.7 MMOL/L (3.5-5.1) Chloride Level 94 MMOL/L (98-107) L Carbon Dioxide Level 34 MMOL/L (21-32) H Anion Gap 6 mmol/L (5-15) Blood Urea Nitrogen 18 mg/dL (7-18) Creatinine 1.4 MG/DL (0.55-1.30) H Estimat Glomerular Filtration Rate > 60 mL/min (>60) Glucose Level 121 MG/DL (74-106) H Calcium Level 8.4 MG/DL (8.5-10.1) L Total Bilirubin 1.6 MG/DL (0.2-1.0) H Direct Bilirubin 1.1 MG/DL (0.0-0.3) H Aspartate Amino Transf (AST/SGOT) 27 U/L (15-37) Alanine Aminotransferase (ALT/SGPT) 18 U/L (12-78) Alkaline Phosphatase 99 U/L (46-116) Pro-B-Type Natriuretic Peptide 2418 pg/mL (0-125) H Total Protein 7.1 G/DL (6.4-8.2) Albumin 3.0 G/DL (3.4-5.0) L Globulin 4.1 g/dL Albumin/Globulin Ratio 0.7 (1.0-2.7) L Angelo Galvan M.D. Jan 25, 2018 11:08
[2018-01-25] MEDS ORDERED: Heparin 25,000u/D5W 500ml 500 ML IV SCH (11:30)
[2018-01-25 12:00] VITALS: BP 100/69
[2018-01-25] MEDS ORDERED: Heparin 5000 units/ml inj IV SCH (12:00)
[2018-01-25] MEDS ORDERED: Heparin 25,000u/D5W 500ml (VTE/AF) IV SCH ×2 (12:15→20:45)
--- NOTE | 2018-01-25 13:14 | Pulmonology Progress Note ---
Assessment/Plan Problems: (1) Fluid overload (2) EF < 20% (3) Ascites (4) Emphysema lung (5) Right-sided heart failure (6) Cirrhosis (7) ICD (implantable cardioverter-defibrillator) in place Assessment/Plan diuresed 4 liters yesterday. sofar -- 11 liters lasix 40 IV q 8 optimize cardiac meds on anticoagulants check electrolytes f/u bun/creatinine, creatinine decreasing paracentesis on friday Subjective ROS Limited/Unobtainable: No Constitutional: Reports: no symptoms HEENT: Repors: no symptoms Respiratory: Reports: no symptoms Allergies: Coded Allergies: HYDROMORPHONE (Verified Allergy, Unknown, 12/28/10) Objective Last 24 Hour Vital Signs Date Time Temp Pulse Resp B/P (MAP) Pulse Ox O2 Delivery O2 Flow Rate FiO2 01/25/18 09:00 Room Air 01/25/18 08:46 76 95/61 01/25/18 08:40 76 16 Room Air 21 01/25/18 08:00 70 01/25/18 08:00 98.1 71 16 91/61 (71) 100 98.1 01/25/18 06:39 95/61 01/25/18 06:39 95/61 01/25/18 04:00 70 01/25/18 04:00 97.7 73 21 95/61 (72) 98 97.7 01/25/18 00:00 98.1 71 18 88/58 (68) 98 98.1 01/25/18 00:00 71 01/24/18 22:30 Room Air 21 01/24/18 22:10 74 16 Room Air 21 01/24/18 21:53 92/62 01/24/18 21:53 92/62 01/24/18 21:00 Room Air 01/24/18 20:43 71 92/62 01/24/18 20:30 97 Room Air 21 01/24/18 20:00 70 01/24/18 20:00 97.6 71 18 92/62 (72) 97 97.6 01/24/18 16:44 70 108/73 01/24/18 16:00 70 01/24/18 16:00 97.8 71 20 108/73 (85) 97 97.8 01/24/18 13:18 107/72 01/24/18 13:18 107/72 Intake and Output 01/24/18 01/25/18 19:00 07:00 Intake Total 360 ml Output Total 2400 ml 300 ml Balance -2040 ml -300 ml Intake Oral 360 ml Output Urine Total 2400 ml 300 ml Objective General Appearance: cachectic HEENT: normocephalic Respiratory/Chest: chest wall non-tender, lungs clear Cardiovascular: normal peripheral pulses, normal rate Abdomen: normal bowel sounds, soft, non tender Genitourinary: normal external genitalia Extremities: no cyanosis, + edema ( less) Skin: no rash 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 Lymphatic: no neck adenopathy Laboratory Tests 01/25/18 05:40: White Blood Count 3.0L, Red Blood Count 4.39L, Hemoglobin 11.5L, Hematocrit 37.3L, Mean Corpuscular Volume 85, Mean Corpuscular Hemoglobin 26.2L, Mean Corpuscular Hemoglobin Concent 30.8L, Red Cell Distribution Width 19.8H, Platelet Count 206, Mean Platelet Volume 7.0, Neutrophils (%) (Auto) , Lymphocytes (%) (Auto) , Monocytes (%) (Auto) , Eosinophils (%) (Auto) , Basophils (%) (Auto) , Differential Total Cells Counted 100, Neutrophils % ( Manual) 57, Lymphocytes % (Manual) 23, Monocytes % (Manual) 16H, Eosinophils % ( Manual) 4H, Basophils % (Manual) 0, Band Neutrophils 0, Platelet Estimate Adequate, Platelet Morphology Normal, Hypochromasia 1+, Anisocytosis 1+, Prothrombin Time 13.1H, Prothromb Time International Ratio 1.3H, Sodium Level 134L, Potassium Level 3.7, Chloride Level 94L, Carbon Dioxide Level 34H, Anion Gap 6, Blood Urea Nitrogen 18, Creatinine 1.4H, Estimat Glomerular Filtration Rate > 60, Glucose Level 121H, Calcium Level 8.4L, Total Bilirubin 1.6H, Direct Bilirubin 1.1H, Aspartate Amino Transf (AST/SGOT) 27, Alanine Aminotransferase ( ALT/SGPT) 18, Alkaline Phosphatase 99, Pro-B-Type Natriuretic Peptide 2418H, Total Protein 7.1, Albumin 3.0L, Globulin 4.1, Albumin/Globulin Ratio 0.7L 01/25/18 11:38: Activated Partial Thromboplast Time 29 Current Medications Medications (Trade) Dose Ordered Sig/Allyn Route PRN Reason Start Time Stop Time Status Last Admin Dose Admin Acetaminophen (Tylenol) 650 mg Q4H PRN ORAL Fever 01/20/18 21:15 02/19/18 21:14 01/23/18 05:42 Albuterol/ Ipratropium (Albuterol/ Ipratropium) 3 ml EVERY 4 HOURS PRN HHN Shortness of Breath 01/20/18 21:15 01/25/18 21:14 Carvedilol (Coreg) 6.25 mg EVERY 12 HOURS ORAL 01/21/18 21:00 02/20/18 20:59 01/24/18 20:43 Dextrose (Dextrose 50%) STAT PRN IV Hypoglycemia 01/20/18 21:15 02/19/18 21:14 Docusate Sodium (Colace) 100 mg TWICE A DAY ORAL 01/21/18 18:00 02/20/18 17:59 01/24/18 16:44 Furosemide (Lasix) 40 mg EVERY 8 HOURS IV 01/23/18 14:00 02/19/18 21:59 01/25/18 06:40 Gabapentin (Neurontin) 100 mg BID ORAL 01/21/18 09:00 02/20/18 08:59 01/25/18 08:46 Heparin Sodium/ Dextrose 500 ml @ 23.04 mls/ hr Q24H IV 01/25/18 12:15 02/24/18 12:14 01/25/18 12:09 Hydralazine HCl (Apresoline) 25 mg Q8HR ORAL 01/22/18 14:00 02/21/18 13:59 01/25/18 06:39 Isosorbide Dinitrate (Isordil) 10 mg Q8HR ORAL 01/22/18 14:00 02/21/18 13:59 01/25/18 06:39 Levothyroxine Sodium (Synthroid) 125 mcg BEFORE BREAKFAST ORAL 01/21/18 06:30 02/20/18 06:29 01/25/18 06:40 Ondansetron HCl (Zofran) 4 mg Q6H PRN IVP Nausea & Vomiting 01/20/18 21:15 02/19/18 21:14 Oxycodone HCl (Roxicodone) 15 mg Q6H PRN ORAL For Pain 01/20/18 21:15 01/27/18 21:14 01/25/18 06:40 Polyethylene Glycol (Miralax) 17 gm BEDTIME ORAL 01/21/18 21:00 02/20/18 20:59 01/21/18 20:23 Polyethylene Glycol (Miralax) 17 gm DAILYPRN PRN ORAL Constipation 01/20/18 21:15 02/19/18 21:14 Sotalol HCl (Betapace) 80 mg BID ORAL 01/21/18 09:00 02/20/18 08:59 01/25/18 08:46 Spironolactone (Aldactone) 25 mg DAILY ORAL 01/25/18 09:00 02/24/18 08:59 Temazepam (Restoril) 15 mg HSPRN PRN ORAL Insomnia 01/20/18 21:15 01/27/18 21:14 01/23/18 01:55 Andrzej Chavarria MD Jan 25, 2018 13:14
[2018-01-25 16:00] VITALS: BP 94/63
[2018-01-25 20:00] VITALS: BP 110/72
[2018-01-25] MEDS: Miralax 17gm pkt ORAL SCH (20:43)
[2018-01-26] VITALS: BP 101/64
[2018-01-26] MEDS ORDERED: Heparin 25,000u/D5W 500ml (VTE/AF) IV SCH (02:15)
[2018-01-26 04:00] VITALS: BP 100/59
[2018-01-26] MEDS: Levothyroxine 125mcg tab ORAL SCH (06:12)
[2018-01-26] MEDS: HydrALAZINE 25mg tab ORAL SCH ×2 (06:12→14:00)
[2018-01-26 07:28] LABS: HEMATOCRIT 43.3 % (42.0-52.0); HEMOGLOBIN 12.8 G/DL (14.2-18.0); MEAN CORPUSCULAR VOLUME 86 FL (80-99); PLATELET COUNT 191 K/UL (150-450); RED BLOOD COUNT 5.05 M/UL (4.70-6.10); RED CELL DISTRIBUTION WIDTH 20.1 % (11.6-14.8); WHITE BLOOD COUNT 2.8 K/UL (4.8-10.8)
[2018-01-26 07:49] LABS: ANION GAP 4 mmol/L (5-15); BLOOD UREA NITROGEN 20 mg/dL (7-18); CALCIUM 8.7 MG/DL (8.5-10.1); CARBON DIOXIDE 39 MMOL/L (21-32); CHLORIDE 94 MMOL/L (98-107); CREATININE 1.6 MG/DL (0.55-1.30); SODIUM 137 MMOL/L (136-145)
[2018-01-26 08:00] VITALS: BP 88/58
[2018-01-26] MEDS: oxyCODONE 15mg IR tab ORAL PRN ×2 (08:38→14:23)
[2018-01-26] MEDS: Sotalol 80mg tab ORAL SCH (09:00)
[2018-01-26] MEDS: Carvedilol 6.25mg Tab ORAL SCH (09:00)
[2018-01-26] MEDS: Spironolactone 25mg tab ORAL SCH (09:00)
[2018-01-26] MEDS: Docusate 100mg cap ORAL SCH (09:00)
[2018-01-26 09:07] LABS: INR 1.2 (0.9-1.1)
--- NOTE | 2018-01-26 10:31 | GI Progress Note ---
Assessment/Plan Problems: (1) Hepatitis C ICD Codes: B19.20 - Hepatitis C SNOMED: 66629711 (2) Cirrhosis ICD Codes: K74.60 - Unspecified cirrhosis of liver SNOMED: 13588092 (3) CHF (congestive heart failure) ICD Codes: I50.9 - Heart failure, unspecified SNOMED: 18557670 (4) Abdominal pain ICD Codes: R10.9 - Abdominal pain SNOMED: 78105881 (5) Fluid overload ICD Codes: E87.70 - Fluid overload, unspecified SNOMED: 10711958 (6) EF < 20% (7) Right-sided heart failure ICD Codes: I50.9 - Right-sided heart failure SNOMED: 559548082 Status: stable Status Narrative Discussed with Dr. Ryan. Assessment/Plan hx of Hep C in 2014 s/p tx >> hep panel redrawn in 2016 was negative s/p colonoscopy with one polyp 06/26/16 symptomatic treatment, fu cardiology recs pt scheduled for paracentesis today diuresis adv low sodium diet bowel regime ppi pain mgmt fu labs could benefit from outpatient fibroid scan evaluate cirrhosis repeat colonoscopy in 2021 The patient was seen and examined at bedside and all new and available data was reviewed in the patients chart. I agree with the above findings, impression and plan. (Patient seen earlier today. Signature stamp does not reflect patient encounter time.). - Beto Ryan MD Subjective Gastrointestinal/Abdominal: Reports: no symptoms Objective Last 24 Hour Vital Signs Date Time Temp Pulse Resp B/P (MAP) Pulse Ox O2 Delivery O2 Flow Rate FiO2 01/26/18 09:00 Room Air 01/26/18 08:00 97.7 68 18 88/58 (68) 97 97.7 01/26/18 06:12 115/62 01/26/18 06:00 115/65 01/26/18 04:00 96.6 84 19 100/59 (73) 93 96.6 01/26/18 04:00 70 01/26/18 00:00 70 01/26/18 00:00 97.0 98 20 101/64 (76) 94 97.0 01/25/18 21:51 90/67 01/25/18 21:51 90/67 01/25/18 21:00 Room Air 01/25/18 20:43 70 100/72 01/25/18 20:00 97.5 70 19 110/72 (85) 98 97.5 01/25/18 20:00 72 18 Room Air 21 01/25/18 20:00 70 01/25/18 16:00 98.1 70 16 94/63 (73) 99 98.1 01/25/18 16:00 71 01/25/18 12:00 70 01/25/18 12:00 97.8 69 20 100/69 (79) 96 97.8 Intake and Output 01/25/18 01/26/18 19:00 07:00 Intake Total 360 ml 120 ml Output Total 1100 ml 1150 ml Balance -740 ml -1030 ml Intake Oral 360 ml 120 ml Output Urine Total 1100 ml 1150 ml # Voids 2 4 Laboratory Tests Test 01/25/18 11:38 01/25/18 18:20 01/26/18 00:40 01/26/18 07:15 Activated Partial Thromboplast Time 29 SEC (23-33) > 150 SEC (23-33) *H 114 SEC (23-33) H 69 SEC (23-33) H White Blood Count 2.8 K/UL (4.8-10.8) L Red Blood Count 5.05 M/UL (4.70-6.10) Hemoglobin 12.8 G/DL (14.2-18.0) L Hematocrit 43.3 % (42.0-52.0) Mean Corpuscular Volume 86 FL (80-99) Mean Corpuscular Hemoglobin 25.3 PG (27.0-31.0) L Mean Corpuscular Hemoglobin Concent 29.5 G/DL (32.0-36.0) L Red Cell Distribution Width 20.1 % (11.6-14.8) H Platelet Count 191 K/UL (150-450) Mean Platelet Volume 6.3 FL (6.5-10.1) L Neutrophils (%) (Auto) % (45.0-75.0) Lymphocytes (%) (Auto) % (20.0-45.0) Monocytes (%) (Auto) % (1.0-10.0) Eosinophils (%) (Auto) % (0.0-3.0) Basophils (%) (Auto) % (0.0-2.0) Differential Total Cells Counted 100 Neutrophils % (Manual) 51 % (45-75) Lymphocytes % (Manual) 32 % (20-45) Monocytes % (Manual) 13 % (1-10) H Eosinophils % (Manual) 4 % (0-3) H Basophils % (Manual) 0 % (0-2) Band Neutrophils 0 % (0-8) Platelet Estimate Adequate Platelet Morphology Normal Red Blood Cell Morphology Hypochromasia 1+ Anisocytosis 2+ Prothrombin Time 12.7 SEC (9.30-11.50) H Prothromb Time International Ratio 1.2 (0.9-1.1) H Sodium Level 137 MMOL/L (136-145) Potassium Level 4.0 MMOL/L (3.5-5.1) Chloride Level 94 MMOL/L (98-107) L Carbon Dioxide Level 39 MMOL/L (21-32) H Anion Gap 4 mmol/L (5-15) L Blood Urea Nitrogen 20 mg/dL (7-18) H Creatinine 1.6 MG/DL (0.55-1.30) H Estimat Glomerular Filtration Rate 53.0 mL/min (>60) Glucose Level 107 MG/DL (74-106) H Calcium Level 8.7 MG/DL (8.5-10.1) Height (Feet): 5 Height (Inches): 9.00 Weight (Pounds): 140 General Appearance: WD/WN, no apparent distress, alert Cardiovascular: normal rate Respiratory/Chest: normal breath sounds, no respiratory distress Abdominal Exam: normal bowel sounds, non tender, soft Extremities: normal range of motion, non-tender Kiarra [employer] Jan 26, 2018 10:31
--- NOTE | 2018-01-26 11:30 | Pulmonology Progress Note ---
Assessment/Plan Problems: (1) Fluid overload (2) EF < 20% (3) Ascites (4) Emphysema lung (5) Right-sided heart failure (6) Cirrhosis (7) ICD (implantable cardioverter-defibrillator) in place Assessment/Plan diuresed 4 liters yesterday. sofar -- 12.5 liters lasix 40 IV q 8 optimize cardiac meds on anticoagulants check electrolytes f/u bun/creatinine, creatinine decreasing paracentesis today Subjective ROS Limited/Unobtainable: No Constitutional: Reports: no symptoms HEENT: Repors: no symptoms Respiratory: Reports: no symptoms Allergies: Coded Allergies: HYDROMORPHONE (Verified Allergy, Unknown, 12/28/10) Objective Last 24 Hour Vital Signs Date Time Temp Pulse Resp B/P (MAP) Pulse Ox O2 Delivery O2 Flow Rate FiO2 01/26/18 09:00 Room Air 01/26/18 08:00 97.7 68 18 88/58 (68) 97 97.7 01/26/18 08:00 70 01/26/18 06:12 115/62 01/26/18 06:00 115/65 01/26/18 04:00 96.6 84 19 100/59 (73) 93 96.6 01/26/18 04:00 70 01/26/18 00:00 70 01/26/18 00:00 97.0 98 20 101/64 (76) 94 97.0 01/25/18 21:51 90/67 01/25/18 21:51 90/67 01/25/18 21:00 Room Air 01/25/18 20:43 70 100/72 01/25/18 20:00 97.5 70 19 110/72 (85) 98 97.5 01/25/18 20:00 72 18 Room Air 21 01/25/18 20:00 70 01/25/18 16:00 98.1 70 16 94/63 (73) 99 98.1 01/25/18 16:00 71 01/25/18 12:00 70 01/25/18 12:00 97.8 69 20 100/69 (79) 96 97.8 Intake and Output 01/25/18 01/26/18 19:00 07:00 Intake Total 360 ml 120 ml Output Total 1100 ml 1150 ml Balance -740 ml -1030 ml Intake Oral 360 ml 120 ml Output Urine Total 1100 ml 1150 ml # Voids 2 4 Objective General Appearance: cachectic HEENT: normocephalic Respiratory/Chest: chest wall non-tender, lungs clear Cardiovascular: normal peripheral pulses, normal rate Abdomen: normal bowel sounds, soft, non tender Genitourinary: normal external genitalia Extremities: no cyanosis, + edema ( less) Skin: no rash 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 Lymphatic: no neck adenopathy Laboratory Tests 01/25/18 11:38: Activated Partial Thromboplast Time 29 01/25/18 18:20: Activated Partial Thromboplast Time > 150*H 01/26/18 00:40: Activated Partial Thromboplast Time 114H 01/26/18 07:15: Activated Partial Thromboplast Time 69H, White Blood Count 2.8L, Red Blood Count 5.05, Hemoglobin 12.8L, Hematocrit 43.3, Mean Corpuscular Volume 86, Mean Corpuscular Hemoglobin 25.3L, Mean Corpuscular Hemoglobin Concent 29.5L, Red Cell Distribution Width 20.1H, Platelet Count 191, Mean Platelet Volume 6.3L, Neutrophils (%) (Auto) , Lymphocytes (%) (Auto) , Monocytes (%) (Auto) , Eosinophils (%) (Auto) , Basophils (%) (Auto) , Differential Total Cells Counted 100, Neutrophils % (Manual) 51, Lymphocytes % (Manual) 32, Monocytes % ( Manual) 13H, Eosinophils % (Manual) 4H, Basophils % (Manual) 0, Band Neutrophils 0, Platelet Estimate Adequate, Platelet Morphology Normal, Red Blood Cell Morphology , Hypochromasia 1+, Anisocytosis 2+, Prothrombin Time 12.7H, Prothromb Time International Ratio 1.2H, Sodium Level 137, Potassium Level 4.0, Chloride Level 94L, Carbon Dioxide Level 39H, Anion Gap 4L, Blood Urea Nitrogen 20H, Creatinine 1.6H, Estimat Glomerular Filtration Rate 53.0, Glucose Level 107H, Calcium Level 8.7 Current Medications Medications (Trade) Dose Ordered Sig/Allyn Route PRN Reason Start Time Stop Time Status Last Admin Dose Admin Acetaminophen (Tylenol) 650 mg Q4H PRN ORAL Fever 01/20/18 21:15 02/19/18 21:14 01/23/18 05:42 Carvedilol (Coreg) 6.25 mg EVERY 12 HOURS ORAL 01/21/18 21:00 02/20/18 20:59 01/25/18 20:43 Dextrose (Dextrose 50%) STAT PRN IV Hypoglycemia 01/20/18 21:15 02/19/18 21:14 Docusate Sodium (Colace) 100 mg TWICE A DAY ORAL 01/21/18 18:00 02/20/18 17:59 01/24/18 16:44 Furosemide (Lasix) 40 mg EVERY 8 HOURS IV 01/23/18 14:00 02/19/18 21:59 01/26/18 06:12 Gabapentin (Neurontin) 100 mg BID ORAL 01/21/18 09:00 02/20/18 08:59 01/26/18 08:37 Hydralazine HCl (Apresoline) 25 mg Q8HR ORAL 01/22/18 14:00 02/21/18 13:59 01/26/18 06:12 Isosorbide Dinitrate (Isordil) 10 mg Q8HR ORAL 01/22/18 14:00 02/21/18 13:59 01/25/18 06:39 Levothyroxine Sodium (Synthroid) 125 mcg BEFORE BREAKFAST ORAL 01/21/18 06:30 02/20/18 06:29 01/26/18 06:12 Ondansetron HCl (Zofran) 4 mg Q6H PRN IVP Nausea & Vomiting 01/20/18 21:15 02/19/18 21:14 01/25/18 14:24 Oxycodone HCl (Roxicodone) 15 mg Q6H PRN ORAL For Pain 01/20/18 21:15 01/27/18 21:14 01/26/18 08:38 Polyethylene Glycol (Miralax) 17 gm BEDTIME ORAL 01/21/18 21:00 02/20/18 20:59 01/25/18 20:43 Polyethylene Glycol (Miralax) 17 gm DAILYPRN PRN ORAL Constipation 01/20/18 21:15 02/19/18 21:14 Sotalol HCl (Betapace) 80 mg BID ORAL 01/21/18 09:00 02/20/18 08:59 01/25/18 08:46 Spironolactone (Aldactone) 25 mg DAILY ORAL 01/25/18 09:00 02/24/18 08:59 Temazepam (Restoril) 15 mg HSPRN PRN ORAL Insomnia 01/20/18 21:15 01/27/18 21:14 01/26/18 01:52 Andrzej Chavarria MD Jan 26, 2018 11:30
[2018-01-26 12:00] VITALS: BP 99/75
--- NOTE | 2018-01-26 13:01 | General Progress Note ---
Assessment/Plan Problem List: (1) Cirrhosis ICD Codes: K74.60 - Unspecified cirrhosis of liver SNOMED: 65507697 (2) CHF (congestive heart failure) ICD Codes: I50.9 - Heart failure, unspecified SNOMED: 63301593 (3) Hepatitis C ICD Codes: B19.20 - Hepatitis C SNOMED: 96549987 (4) Abdominal pain ICD Codes: R10.9 - Abdominal pain SNOMED: 00212213 Status: stable, progressing Assessment/Plan ot pt diet diurese dc w hh if clear Subjective Constitutional: Reports: weakness Allergies: Coded Allergies: HYDROMORPHONE (Verified Allergy, Unknown, 12/28/10) All Systems: reviewed and negative except above Subjective weak in bed Objective Last 24 Hour Vital Signs Date Time Temp Pulse Resp B/P (MAP) Pulse Ox O2 Delivery O2 Flow Rate FiO2 01/26/18 09:00 Room Air 01/26/18 08:00 97.7 68 18 88/58 (68) 97 97.7 01/26/18 08:00 70 01/26/18 06:12 115/62 01/26/18 06:00 115/65 01/26/18 04:00 96.6 84 19 100/59 (73) 93 96.6 01/26/18 04:00 70 01/26/18 00:00 70 01/26/18 00:00 97.0 98 20 101/64 (76) 94 97.0 01/25/18 21:51 90/67 01/25/18 21:51 90/67 01/25/18 21:00 Room Air 01/25/18 20:43 70 100/72 01/25/18 20:00 97.5 70 19 110/72 (85) 98 97.5 01/25/18 20:00 72 18 Room Air 21 01/25/18 20:00 70 01/25/18 16:00 98.1 70 16 94/63 (73) 99 98.1 01/25/18 16:00 71 Intake and Output 01/25/18 01/26/18 19:00 07:00 Intake Total 360 ml 120 ml Output Total 1100 ml 1150 ml Balance -740 ml -1030 ml Intake Oral 360 ml 120 ml Output Urine Total 1100 ml 1150 ml # Voids 2 4 Laboratory Tests 01/25/18 18:20: Activated Partial Thromboplast Time > 150*H 01/26/18 00:40: Activated Partial Thromboplast Time 114H 01/26/18 07:15: Activated Partial Thromboplast Time 69H, White Blood Count 2.8L, Red Blood Count 5.05, Hemoglobin 12.8L, Hematocrit 43.3, Mean Corpuscular Volume 86, Mean Corpuscular Hemoglobin 25.3L, Mean Corpuscular Hemoglobin Concent 29.5L, Red Cell Distribution Width 20.1H, Platelet Count 191, Mean Platelet Volume 6.3L, Neutrophils (%) (Auto) , Lymphocytes (%) (Auto) , Monocytes (%) (Auto) , Eosinophils (%) (Auto) , Basophils (%) (Auto) , Differential Total Cells Counted 100, Neutrophils % (Manual) 51, Lymphocytes % (Manual) 32, Monocytes % ( Manual) 13H, Eosinophils % (Manual) 4H, Basophils % (Manual) 0, Band Neutrophils 0, Platelet Estimate Adequate, Platelet Morphology Normal, Red Blood Cell Morphology , Hypochromasia 1+, Anisocytosis 2+, Prothrombin Time 12.7H, Prothromb Time International Ratio 1.2H, Sodium Level 137, Potassium Level 4.0, Chloride Level 94L, Carbon Dioxide Level 39H, Anion Gap 4L, Blood Urea Nitrogen 20H, Creatinine 1.6H, Estimat Glomerular Filtration Rate 53.0, Glucose Level 107H, Calcium Level 8.7 Height (Feet): 5 Height (Inches): 9.00 Weight (Pounds): 140 General Appearance: lethargic EENT: normal ENT inspection Neck: normal alignment Cardiovascular: normal peripheral pulses, normal rate, regular rhythm Respiratory/Chest: chest wall non-tender, lungs clear, normal breath sounds Abdomen: normal bowel sounds, non tender, soft Extremities: normal inspection Edema: no edema noted Arm (L), no edema noted Arm (R), no edema noted Leg (L), no edema noted Leg (R), no edema noted Pedal (L), no edema noted Pedal (R), no edema noted Generalized Neurologic: responsive, motor weakness Skin: normal pigmentation, warm/dry Shahid Cherry DO Jan 26, 2018 13:01
--- NOTE | 2018-01-26 15:07 | Cardiac Electrophysiology PN ---
Assessment/Plan Assessment/Plan 1. Exacerbation of congestive heart failure. EF 20%. Continue Coreg 6.25 mg b.i.d., Lasix 40 mg IV b.i.d., Hydralazine, Isordil, and Aldactone 50 mg daily. 2. Paroxysmal atrial fibrillation with two prior ablations at [facility] on Coreg and resume Xarelto 20 mg daily. 3. Status post [employer] ICD implantation with dysfunctional right ventricular lead. 100% V Paced. S/P new right ventricular lead as well as upgrade to biventricular defibrillator on 10/08/17 at [facility] by me. 4. Hepatitis C and ascites. Not enough fluid for paracentesis 5. Renal failure with creatinine of 1.5. DW RN Subjective Subjective Doing very well. Awaiting DC Objective Last 24 Hour Vital Signs Date Time Temp Pulse Resp B/P (MAP) Pulse Ox O2 Delivery O2 Flow Rate FiO2 01/26/18 12:00 70 01/26/18 12:00 97.7 70 21 99/75 (83) 99 97.7 01/26/18 09:00 Room Air 01/26/18 08:00 97.7 68 18 88/58 (68) 97 97.7 01/26/18 08:00 70 01/26/18 06:12 115/62 01/26/18 06:00 115/65 01/26/18 04:00 96.6 84 19 100/59 (73) 93 96.6 01/26/18 04:00 70 01/26/18 00:00 70 01/26/18 00:00 97.0 98 20 101/64 (76) 94 97.0 01/25/18 21:51 90/67 01/25/18 21:51 90/67 01/25/18 21:00 Room Air 01/25/18 20:43 70 100/72 01/25/18 20:00 97.5 70 19 110/72 (85) 98 97.5 01/25/18 20:00 72 18 Room Air 21 01/25/18 20:00 70 01/25/18 16:00 98.1 70 16 94/63 (73) 99 98.1 01/25/18 16:00 71 Intake and Output 01/25/18 01/26/18 19:00 07:00 Intake Total 360 ml 120 ml Output Total 1100 ml 1150 ml Balance -740 ml -1030 ml Intake Oral 360 ml 120 ml Output Urine Total 1100 ml 1150 ml # Voids 2 4 Laboratory Tests Test 01/25/18 18:20 01/26/18 00:40 01/26/18 07:15 Activated Partial Thromboplast Time > 150 SEC (23-33) *H 114 SEC (23-33) H 69 SEC (23-33) H White Blood Count 2.8 K/UL (4.8-10.8) L Red Blood Count 5.05 M/UL (4.70-6.10) Hemoglobin 12.8 G/DL (14.2-18.0) L Hematocrit 43.3 % (42.0-52.0) Mean Corpuscular Volume 86 FL (80-99) Mean Corpuscular Hemoglobin 25.3 PG (27.0-31.0) L Mean Corpuscular Hemoglobin Concent 29.5 G/DL (32.0-36.0) L Red Cell Distribution Width 20.1 % (11.6-14.8) H Platelet Count 191 K/UL (150-450) Mean Platelet Volume 6.3 FL (6.5-10.1) L Neutrophils (%) (Auto) % (45.0-75.0) Lymphocytes (%) (Auto) % (20.0-45.0) Monocytes (%) (Auto) % (1.0-10.0) Eosinophils (%) (Auto) % (0.0-3.0) Basophils (%) (Auto) % (0.0-2.0) Differential Total Cells Counted 100 Neutrophils % (Manual) 51 % (45-75) Lymphocytes % (Manual) 32 % (20-45) Monocytes % (Manual) 13 % (1-10) H Eosinophils % (Manual) 4 % (0-3) H Basophils % (Manual) 0 % (0-2) Band Neutrophils 0 % (0-8) Platelet Estimate Adequate Platelet Morphology Normal Red Blood Cell Morphology Hypochromasia 1+ Anisocytosis 2+ Prothrombin Time 12.7 SEC (9.30-11.50) H Prothromb Time International Ratio 1.2 (0.9-1.1) H Sodium Level 137 MMOL/L (136-145) Potassium Level 4.0 MMOL/L (3.5-5.1) Chloride Level 94 MMOL/L (98-107) L Carbon Dioxide Level 39 MMOL/L (21-32) H Anion Gap 4 mmol/L (5-15) L Blood Urea Nitrogen 20 mg/dL (7-18) H Creatinine 1.6 MG/DL (0.55-1.30) H Estimat Glomerular Filtration Rate 53.0 mL/min (>60) Glucose Level 107 MG/DL (74-106) H Calcium Level 8.7 MG/DL (8.5-10.1) Objective General Appearance: no apparent distress, alert EENT: PERRL/EOMI, TMs normal Neck: JVD Rhythm: Afib Cardiovascular: normal peripheral pulses, normal rate, irregularly irregular ICD left subclavian intact Respiratory/Chest: chest wall non-tender, lungs clear Abdomen: normal bowel sounds, distended Extremities: normal range of motion, non-tender 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
[2018-01-26] MEDS ORDERED: NS 500ML ONE (16:29)
--- NOTE | 2018-01-27 08:02 | Discharge Summary ---
Discharge Summary Discharge Summary _ DATE OF ADMISSION: 01/20/2018 DATE OF DISCHARGE: 01/26/2018 REASON FOR ADMISSION: 62 years old male with past medical history significant for congestive heart failure, cardiomyopathy, liver cirrhosis, recurrent ascites, COPD/emphysema, hepatitis C, hypertension, AICD, presented to emergency room with bilateral lower extremity edema, shortness of breath, and abdominal distention. Patient seen earlier by his primary care provider, who advised him to go to emergency room for further evaluation. Upon evaluation vital signs reveal tachycardia. EKG revealed atrial fibrillation with heart rate 105-110. WBC 3.5 ,hemoglobin 10.9 ,hematocrit 36.7 ,platelets 188 . INR 1.9. BUN 19 creatinine 1.7. Troponin negative. LFT, lipase within normal limits. Albumin 3.6. Chest x-ray revealed cardiomegaly and pulmonary congestion. Patient admitted with diagnoses of CHF exacerbation, fluid overload, right- sided heart failure ,emphysema, atrial fibrillation ,AICD , cirrhosis, ascites. CONSULTANTS: line fixer cardiac electrophysiology Dr. Zhang pulmonary Dr. Chavarria GI specialist [facility] COURSE: Patient admitted to telemetry floor. Customer Service Clerk, hand roller and GI specialists closely followed. Venous duplex of bilateral lower extremities revealed no evidence of acute DVT. Supplemental oxygen titrated to keep pulse oximetry above 92%. Pulmonary toilet with bronchodilator provided as needed. Prior to discharge pulse oximetry stable on room air. Echocardiogram revealed ejection fraction less than 10%. Severe global left ventricular hypokinesis with septal thickening. Septal and anterior wall akinesis. Severe left atrial enlargement. Moderate enlargement of right cardiac chambers. Increased apical echo were not typical for thrombosis , however it could not be excluded. Moderate to severe mitral and tricuspid regurgitation. Moderate pulmonic regurgitation. Right ventricular systolic pressure of 79 consistent with severe pulmonary hypertension. Customer Service Clerk closely followed. Patient started on diuresis with close monitoring of cardiorenal parameters and volumes. Anti-failure medication regimen was optimized. Patient was on diuresis with Lasix and Aldactone. Lasix provided to reduce filling pressures/ congestion. Renal function was closely monitored. Electrolytes corrected as needed. Renal function remained at baseline, no trend down. Coreg was increased to 6.25 mg bid and should be further titrated to goal 25 mg bid as tolerated. Combination of hydralazine and Imdur was continued. No indication for catheterization and stress test at this time. Patient had episode of nonsustained ventricular tachycardia. Patient started on sotalol. Cardiac electrophysiology was consulted. Apparently patient had the [employer] ICD implantation with dysfunctional right ventricular lead. On telemetry patient was 100% V pacing. Patient undergone on 10/08/2017 right ventricular lead and upgraded to biventricular defibrillator. Patient exhibited evidence of paroxysmal atrial fibrillation. Patient undergone two previous ablations. Rate was controlled with beta sina . Patient initially started on heparin drip and then switched to Xarelto for cardioembolic prophylaxis. Abdominal ultrasound revealed not enough fluid for paracentesis. GI specialist closely followed. Symptomatic treatment provided. Low-sodium diet provided. Patient was on PPI. Bowel regimen instituted. Pain management addressed. Patient status post colonoscopy with polyp removal on 06/26/2016. GI recommended to repeat colonoscopy in 5 years in 2021. Patient with history of hepatitis C, status post treatment. Hepatitis panel done in 2016 was negative. Patient would benefit from outpatient fibroid scan evaluation for cirrhosis. Patient clinically improved . Overall prognosis poor. Patient was stable for discharge home with home health services FINAL DIAGNOSES: Acute CHF exacerbation ( systolic and diastolic) Severe cardiomyopathy Fluid overload Paroxysmal atrial fibrillation Nonsustained ventricular tachycardia Right-sided heart failure COPD/emphysema AICD Renal failure Cirrhosis Ascites Hepatitis C DISCHARGE MEDICATIONS: See Medication Reconciliation list. DISCHARGE INSTRUCTIONS: Patient was discharged home with home health services. Follow up with primary care provider in one week. I have been assigned to dictate discharge summary for this account. I was not involved in the patient's management. Aarti Bryant NP Jan 27, 2018 08:02
== END 2018-01-26 16:30 | disposition home health service (06) | DRG 292 ==
LOC: EDBEDREQ 19:28 → EMR 19:40 → 2E 20:06 → EDBEDREQ 20:38
DX: I11.0 Hypertensive heart disease with heart failure (principal); R18.8 Other ascites; I47.2 Ventricular tachycardia; I50.43 Acute on chronic combined systolic (congestive) and diastolic (congestive) heart failure; I42.9 Cardiomyopathy, unspecified; K74.60 Unspecified cirrhosis of liver; B19.20 Unspecified viral hepatitis C without hepatic coma; I50.811 Acute right heart failure; I48.0 Paroxysmal atrial fibrillation; J44.9 Chronic obstructive pulmonary disease, unspecified; Z95.810 Presence of automatic (implantable) cardiac defibrillator; N19 Unspecified kidney failure; Z88.6 Allergy status to analgesic agent
CPT/HCPCS: 36415; 71045; 80048; 80053; 80069; 82248; 82550; 82553; 83690; 83735; 83880; 84484; 85007; 85025; 85610; 85730; 93005; 93306; 93970; 94664; 94760; 97803; 99291; J2405; J8499

== ENCOUNTER 2018-02-02 21:29 | Inpatient (IN) | payer MEDICARE, MEDICAID ==
[~2018-02-02] VITALS: Ht 175.3 cm; Wt 67.1 kg
[~2018-02-02 21:29] MED LIST changes: +CARVEDILOL3.125 MG ORAL; +DULCOLAX10 MG RC; +FUROSEMIDE20 M1 ORAL; +LEVOTHYROXINE125 MCG ORAL; +LISINOPRIL5 MG ORAL; +MILK OF MA400 MG/51 ORAL
--- NOTE | 2018-02-02 21:57 | Emergency Room Report ---
History of Present Illness General Chief Complaint: Chest Pain Source: Patient, Medical Record Present Illness HPI This is 62-year-old male with multiple medical problem. He has a history of severe cardiomyopathy with ejection fraction around 10%. Also with history of CHF, end-stage liver disease with cirrhosis and ascites. He has history of chronic pain and take oxycodone. He presents with chief complaint abdominal pain and chest pain. This is similar to previous episode. Pain is 10 out of 10. No nausea no vomiting. No fever chills. Nothing made it better. Nothing made it worse. His oxycodone is not helping. Denies any other complaint. Allergies: Coded Allergies: HYDROMORPHONE (Verified Allergy, Unknown, 12/28/10) Patient History Past Medical History: see triage record, old chart reviewed, HTN, CAD, CHF, COPD Past Surgical History: other Pertinent Family History: none Social History: Denies: smoking Immunizations: other Reviewed Nursing Documentation: PMH: Agreed; PSxH: Agreed Nursing Documentation-PMH Hx Cardiac Problems: Yes Hx Hypertension: Yes Hx Pacemaker: Yes - Left upper chest Hx COPD: Yes Hx Cancer: No Hx Gastrointestinal Problems: Yes Hx Neurological Problems: No Hx Cerebrovascular Accident: No Hx Transient Ischemic Attacks: No Review of Systems Eye: Denies: eye pain, blurred vision ENT: Denies: ear pain, nose congestion, throat swelling Respiratory: Denies: cough, shortness of breath Cardiovascular: Reports: chest pain; Denies: palpitations Gastrointestinal: Reports: abdominal pain; Denies: diarrhea, nausea, vomiting Musculoskeletal: Denies: back pain, joint pain Skin: Denies: rash Neurological: Denies: headache, numbness Endocrine: Denies: increased thirst, increased urine Hematologic/Lymphatic: Denies: easy bruising All Other Systems: negative except mentioned in HPI Physical Exam Vital Signs Date Time Temp Pulse Resp B/P (MAP) Pulse Ox O2 Delivery O2 Flow Rate FiO2 18 21:37 98.1 72 16 120/83 100 Room Air 98.1 vitals normal Sp02 EP Interpretation: reviewed, normal General Appearance: well appearing, no apparent distress, alert, thin, Chronically Ill Head: normocephalic, atraumatic Eyes: bilateral eye PERRL, bilateral eye EOMI ENT: hearing grossly normal, normal pharynx Neck: full range of motion, supple, no meningismus Respiratory: chest non-tender, lungs clear, normal breath sounds Cardiovascular #1: regular rate, rhythm, no murmur Gastrointestinal: normal bowel sounds, non tender, no mass, no organomegaly, no bruit, non-distended Musculoskeletal: back normal, normal range of motion Neurologic: alert, oriented x3 Psychiatric: mood/affect normal Skin: warm/dry Medical Decision Making Diagnostic Impression: Primary Impression: Chest pain Qualified Codes: R07.9 - Chest pain, unspecified Additional Impressions: Abdominal pain Qualified Codes: R10.84 - Generalized abdominal pain Cardiomyopathy due to hypertension, with heart failure EF < 20% Chronic pain Qualified Codes: G89.4 - Chronic pain syndrome ARIS (acute kidney injury) ER Course Patient presents with chest pain and abdominal pain. He does have increasing level of BNP. No evidence of ACS, PE, dissection to name a few. Lasix given here. Pain control with morphine. Will admit for further workup. I contacted Dr. Cherry for admission. Lab Results Impression labs with elevated bnp EKG Diagnostic Results Rate: normal Rhythm: other - atrial flutter ST Segments: other - NSST changes ASA given to the pt in ED: No Rhythm Strip Diag. Results Rhythm Strip Time: 21:57 EP Interpretation: yes Rate: 81 Rhythm: no PVC's, no ectopy Chest X-Ray Diagnostic Results Chest X-Ray Diagnostic Results : Chest X-Ray Ordered: Yes # of Views/Limited/Complete: 1 View Indication: Chest Pain EP Interpretation: Yes Interpretation: no consolidation, no effusion, no pneumothorax, other - CM Impression: Other - CM Electronically Signed by: Nicholas Bird MD Last Vital Signs Date Time Temp Pulse Resp B/P (MAP) Pulse Ox O2 Delivery O2 Flow Rate FiO2 02/02/18 21:37 98.1 72 16 120/83 100 Room Air 98.1 Status: improved Disposition: ADMITTED INPATIENT Condition: Serious NICHOLAS BIRD M.D. Feb 02, 2018 21:57
[2018-02-02] MEDS ORDERED: Morphine Sulfate 4mg/ml Inj (IV USE ONLY) IVP ONE (22:00)
[2018-02-02 22:35] VITALS: BP 120/83
[2018-02-02 22:51] LABS: BASOPHILS % (AUTO) 2.5 % (0.0-2.0); EOSINOPHILS % (AUTO) 1.4 % (0.0-3.0); HEMATOCRIT 36.9 % (42.0-52.0); HEMOGLOBIN 11.5 G/DL (14.2-18.0); LYMPHOCYTES % (AUTO) 21.5 % (20.0-45.0); MEAN CORPUSCULAR VOLUME 86 FL (80-99); MONOCYTES % (AUTO) 9.4 % (1.0-10.0); NEUTROPHILS % (AUTO) 65.2 % (45.0-75.0); PLATELET COUNT 200 K/UL (150-450); RED BLOOD COUNT 4.31 M/UL (4.70-6.10); RED CELL DISTRIBUTION WIDTH 19.6 % (11.6-14.8); WHITE BLOOD COUNT 5.3 K/UL (4.8-10.8)
[2018-02-02 22:59] LABS: INR 1.5 (0.9-1.1)
[2018-02-02 23:17] LABS: ALANINE AMINOTRANSFERASE 23 U/L (12-78); ALBUMIN 3.9 G/DL (3.4-5.0); ALBUMIN/GLOBULIN RATIO 0.8 (1.0-2.7); ALKALINE PHOSPHATASE 113 U/L (46-116); ANION GAP 14 mmol/L (5-15); ASPARTATE AMINO TRANSFERASE 58 U/L (15-37); BILIRUBIN,TOTAL 2.8 MG/DL (0.2-1.0); BLOOD UREA NITROGEN 50 mg/dL (7-18); CALCIUM 9.5 MG/DL (8.5-10.1); CARBON DIOXIDE 24 MMOL/L (21-32); CHLORIDE 95 MMOL/L (98-107); CREATINE KINASE 161 U/L (26-308); CREATININE 2.1 MG/DL (0.55-1.30); SODIUM 132 MMOL/L (136-145)
[2018-02-02 23:43] LABS: CKMB 0.7 NG/ML (0.0-3.6)
[2018-02-02 23:47] LABS: APPEARANCE,URINE CLEAR; BILIRUBIN, URINE NEGATIVE (NEGATIVE); GLUCOSE, URINE (UA) NEGATIVE (NEGATIVE); KETONES,URINE NEGATIVE (NEGATIVE); NITRITE,URINE NEGATIVE (NEGATIVE); PH,URINE 5 (4.5-8.0); PROTEIN,URINE 3+ (NEGATIVE); UROBILINOGEN,URINE 1 MG/DL (0.0-1.0)
[2018-02-02 23:53] LABS: COLOR,URINE YELLOW; LEUKOCYTE ESTERASE ,URINE 1+ (NEGATIVE)
[2018-02-03] VITALS (12 sets, daily range): BP systolic 76–133; BP diastolic 46–93
[2018-02-03] MEDS ORDERED: Morphine Sulfate 4mg/ml Inj (IV USE ONLY) IVP PRN (00:45)
[2018-02-03] MEDS ORDERED: DiphenhydrAMINE 50mg/ml Inj IVP PRN (00:45)
[2018-02-03] MEDS ORDERED: Milk of Magnesia 30ml Ud ORAL PRN (00:45)
[2018-02-03] MEDS ORDERED: Bisacodyl EC 5mg tab ORAL PRN (00:45)
[2018-02-03] MEDS ORDERED: Levothyroxine 125mcg tab ORAL SCH (06:30)
[2018-02-03 06:37] LABS: BASOPHILS % (AUTO) 1.1 % (0.0-2.0); HEMATOCRIT 37.5 % (42.0-52.0); HEMOGLOBIN 11.4 G/DL (14.2-18.0); LYMPHOCYTES % (AUTO) 19.5 % (20.0-45.0); MEAN CORPUSCULAR VOLUME 85 FL (80-99); MONOCYTES % (AUTO) 11.6 % (1.0-10.0); NEUTROPHILS % (AUTO) 66.8 % (45.0-75.0); PLATELET COUNT 208 K/UL (150-450); RED BLOOD COUNT 4.43 M/UL (4.70-6.10); RED CELL DISTRIBUTION WIDTH 19.1 % (11.6-14.8)
[2018-02-03 07:31] LABS: ALANINE AMINOTRANSFERASE 19 U/L (12-78); ALBUMIN 3.5 G/DL (3.4-5.0); ALBUMIN/GLOBULIN RATIO 0.7 (1.0-2.7); ALKALINE PHOSPHATASE 102 U/L (46-116); ANION GAP 13 mmol/L (5-15); ASPARTATE AMINO TRANSFERASE 29 U/L (15-37); BILIRUBIN,TOTAL 3.1 MG/DL (0.2-1.0); BLOOD UREA NITROGEN 53 mg/dL (7-18); CALCIUM 8.9 MG/DL (8.5-10.1); CARBON DIOXIDE 26 MMOL/L (21-32); CHLORIDE 96 MMOL/L (98-107); CREATININE 2.3 MG/DL (0.55-1.30); POTASSIUM 4.5 MMOL/L (3.5-5.1); SODIUM 135 MMOL/L (136-145)
[2018-02-03 07:32] LABS: BILIRUBIN,DIRECT 1.8 MG/DL (0.0-0.3)
--- NOTE | 2018-02-03 07:48 | General Progress Note ---
Assessment/Plan Assessment/Plan (1) Lumbar degenerative disc disease (2) Lumbar spondylosis (3) Lumbar radiculopathy (4) Liver Cirrhosis (5) Abdominal pain Pt will be continued on morphine and started on Oxycodone 10mg PO 1 tab Q6H PRN moderate pain/ Pt was d/w Dr. Carson and he concurred. Subjective Allergies: Coded Allergies: HYDROMORPHONE (Verified Allergy, Unknown, 12/28/10) Subjective Constitutional: Reports: weakness, Denies: chills, diaphoresis, fever, malaise , no symptoms, other HEENT: Denies: blurred vision, double vision, ear discharge, ear pain, eye pain , mouth pain, mouth swelling, no symptoms, nose congestion, nose pain, other, tearing, throat pain, throat swelling Cardiovascular: Denies: irregular heart rate, lightheadedness, no symptoms, other, palpitations, syncope Respiratory: Denies: SOB at rest, SOB with excertion, cough, no symptoms, orthopnea, other, shortness of breath, sputum, stridor, wheezing Gastrointestinal/Abdominal: Reports: abdominal pain, Denies: abdomen distended , black stools, blood in stool, constipated, diarrhea, difficulty swallowing, nausea, no symptoms, other, poor appetite, poor fluid intake, rectal bleeding, tarry stools, vomiting Genitourinary: Denies: burning, discharge, flank pain, frequency, hematuria, incontinence, no symptoms, other, pain, urgency Neurologic/Psychiatric: Reports: weakness, Denies: anxiety, depressed, emotional problems, headache, no symptoms, numbness, other, paresthesia, pre- existing deficit, seizure, tingling, tremors Endocrine: Denies: excessive sweating, flushing, increased hunger, increased thirst, increased urine, intolerance to cold, intolerance to heat, no symptoms, other, unexplained weight gain, unexplained weight loss Hematologic/Lymphatic: Denies: anemia, easy bleeding, easy bruising, no symptoms, other Subjective Patient is a known patient from prior admission admitted to the hospital under the care of Dr. Jin with c/o chest pain. Was started on morphine 4mg IV Q4H PRN with minimal pain relief. due to this we were consulted so patient has adequate pain control while here in the hospital. Objective Last 24 Hour Vital Signs Date Time Temp Pulse Resp B/P (MAP) Pulse Ox O2 Delivery O2 Flow Rate FiO2 02/03/18 04:00 97.0 70 20 127/93 (104) 99 97.0 02/03/18 03:42 77 02/03/18 03:36 75 02/03/18 01:08 Room Air 02/03/18 00:10 97.0 85 18 120/77 100 Room Air 97.0 02/03/18 00:00 97.0 85 18 129/92 (104) 100 97.0 02/02/18 22:35 98.0 16 120/83 100 Room Air 98.0 02/02/18 22:35 72 16 Room Air 02/02/18 22:16 98.1 02/02/18 21:37 98.1 72 16 120/83 100 Room Air 98.1 Intake and Output 02/02/18 02/03/18 19:00 07:00 Intake Total 120 ml Output Total 30 ml Balance 90 ml Intake Oral 120 ml Output Emesis 30 ml # Bowel Movements 1 Laboratory Tests 02/02/18 22:20: White Blood Count 5.3, Red Blood Count 4.31L, Hemoglobin 11.5L, Hematocrit 36.9L , Mean Corpuscular Volume 86, Mean Corpuscular Hemoglobin 26.6L, Mean Corpuscular Hemoglobin Concent 31.1L, Red Cell Distribution Width 19.6H, Platelet Count 200, Mean Platelet Volume 6.0L, Neutrophils (%) (Auto) 65.2, Lymphocytes (%) (Auto) 21.5, Monocytes (%) (Auto) 9.4, Eosinophils (%) (Auto) 1.4, Basophils (%) (Auto) 2.5H, Prothrombin Time 15.6H, Prothromb Time International Ratio 1.5H, Activated Partial Thromboplast Time 28, Sodium Level 132L, Potassium Level 6.0*H, Chloride Level 95L, Carbon Dioxide Level 24, Anion Gap 14, Blood Urea Nitrogen 50H, Creatinine 2.1H, Estimat Glomerular Filtration Rate 38.8, Glucose Level 102, Calcium Level 9.5, Total Bilirubin 2.8H, Direct Bilirubin 1.0H, Aspartate Amino Transf (AST/SGOT) 58H, Alanine Aminotransferase (ALT/SGPT) 23, Alkaline Phosphatase 113, Total Creatine Kinase 161, Creatine Kinase MB 0.7, Creatine Kinase MB Relative Index 0.4, Troponin I 0.014, Pro-B- Type Natriuretic Peptide 50118R, Total Protein 8.8H, Albumin 3.9, Globulin 4.9, Albumin/Globulin Ratio 0.8L 02/02/18 23:25: Potassium Level 4.3 02/02/18 23:41: Urine Color Yellow, Urine Appearance Clear, Urine pH 5, Urine Specific [place] 1.020, Urine Protein 3+H, Urine Glucose (UA) Negative, Urine Ketones Negative, Urine Occult Blood Negative, Urine Nitrite Negative, Urine Bilirubin Negative, Urine Urobilinogen 1H, Urine Leukocyte Esterase 1+H, Urine RBC 0-2H, Urine WBC 5 -10H, Urine Squamous Epithelial Cells Few, Urine Calcium Oxalate Crystals Few, Urine Bacteria Few, Urine Coarse Granular Casts 0-2H, Urine Opiates Screen Negative, Urine Barbiturates Screen Negative, Phencyclidine (PCP) Screen Negative, Urine Amphetamines Screen Negative, Urine Benzodiazepines Screen Negative, Urine Cocaine Screen Negative, Urine Marijuana (THC) Screen PositiveH 02/03/18 05:50: White Blood Count 5.0, Red Blood Count 4.43L, Hemoglobin 11.4L, Hematocrit 37.5L , Mean Corpuscular Volume 85, Mean Corpuscular Hemoglobin 25.7L, Mean Corpuscular Hemoglobin Concent 30.3L, Red Cell Distribution Width 19.1H, Platelet Count 208, Mean Platelet Volume 6.0L, Neutrophils (%) (Auto) 66.8, Lymphocytes (%) (Auto) 19.5L, Monocytes (%) (Auto) 11.6H, Eosinophils (%) (Auto ) 1.0, Basophils (%) (Auto) 1.1, Sodium Level 135L, Potassium Level 4.5, Chloride Level 96L, Carbon Dioxide Level 26, Anion Gap 13, Blood Urea Nitrogen 53H, Creatinine 2.3H, Estimat Glomerular Filtration Rate 34.9, Glucose Level 100 , Calcium Level 8.9, Total Bilirubin 3.1H, Direct Bilirubin 1.8H, Aspartate Amino Transf (AST/SGOT) 29, Alanine Aminotransferase (ALT/SGPT) 19, Alkaline Phosphatase 102, Total Protein 8.3H, Albumin 3.5, Globulin 4.8, Albumin/ Globulin Ratio 0.7L, Digoxin Level 0.8 Height (Feet): 5 Height (Inches): 9.00 Weight (Pounds): 163 Objective General Appearance: no apparent distress, alert EENT: normal ENT inspection, TMs normal Neck: normal alignment, supple Cardiovascular: normal rate, regular rhythm Respiratory/Chest: lungs clear, normal breath sounds Abdomen: tender, distended Extremities: non-tender Edema: edema noted in b/l LE Neurologic: alert, oriented x 3 Skin: warm/dry Luc Sanchez Feb 03, 2018 07:48
[2018-02-03] MEDS ORDERED: oxyCODONE 5mg IR tab ORAL PRN (08:00)
[2018-02-03] MEDS ORDERED: Xarelto 15mg tab ORAL SCH (09:00)
[2018-02-03] MEDS ORDERED: Digoxin 0.125mg tab ORAL SCH ×2 (09:00)
[2018-02-03] MEDS ORDERED: Ascorbic Acid 500mg tab ORAL SCH (09:00)
[2018-02-03] MEDS ORDERED: Spironolactone 25mg tab ORAL SCH (09:00)
[2018-02-03] MEDS ORDERED: Lisinopril 2.5mg tab ORAL SCH (09:00)
[2018-02-03] MEDS: Sotalol 80mg tab ORAL SCH ×2 (09:04→17:48)
--- NOTE | 2018-02-03 09:42 | Diagnostic Imaging Report ---
Indication: Chest pain Technique: One view of the chest Comparison: 01/20/2018 Findings: The heart is enlarged. There is a left chest AICD with 3 leads. There is equivocal minimal interstitial congestion. No effusions. Impression: Cardiomegaly Equivocal minimal interstitial congestion-correlate with clinical findings
--- NOTE | 2018-02-03 12:27 | Consultation ---
History of Present Illness General Date patient seen: Feb 03, 2018 Chief Complaint: Chest Pain Present Illness HPI 62-year-old male with a history of severe cardiomyopathy with ejection fraction less than 10%. end-stage liver disease with cirrhosis and ascites. He has history of chronic pain and take oxycodone. presented with chief complaint abdominal pain and chest pain. This is similar to previous episode. His oxycodone is not helping. He was found to have acute hyperkalemia and admitted to telemetry for further evaluation. Allergies: Coded Allergies: HYDROMORPHONE (Verified Allergy, Unknown, 12/28/10) Medication History Scheduled Ascorbic Acid* (Vitamin C*), 500 MG ORAL DAILY, (Reported) Carvedilol* (Carvedilol*), 3.125 MG ORAL BID, (Reported) Digoxin* (Digoxin*), 125 MCG ORAL DAILY, (Reported) Ferrous Sulfate* (Ferrous Sulfate*), 325 MG ORAL DAILY, (Reported) Furosemide* (Lasix*), 20 MG ORAL BID, (Reported) Gabapentin* (Gabapentin*), 100 MG ORAL BID, (Reported) Levothyroxine Sodium* (Levothyroxine Sodium*), 125 MCG ORAL BEFORE BREAKFAST, ( Reported) Lisinopril (Lisinopril*), 5 MG ORAL DAILY, (Reported) Multivitamins* (Multivitamins*), 2 TAB ORAL DAILY, (Reported) Pantoprazole* (Protonix*), 40 MG ORAL DAILY, (Reported) Rivaroxaban (Xarelto*), 15 MG ORAL DAILY, (Reported) Sotalol Hcl (Sotalol*), 80 MG ORAL BID, (Reported) Spironolactone* (Spironolactone*), 25 MG ORAL DAILY, (Reported) Tizanidine Hcl* (Zanaflex*), 4 MG ORAL THREE TIMES A DAY, (Reported) Scheduled PRN Bisacodyl (Dulcolax), 10 MG RC DAILY PRN for Constipation, (Reported) Diphenhydramine Hcl* (Diphenhydramine Hcl*), 25 MG ORAL Q8H PRN for Itching, ( Reported) Magnesium Hydroxide* (Milk Of Magnesia*), 30 ML ORAL DAILY PRN for Constipation, (Reported) OXYCODONE HCl* (Roxicodone*), 15 MG ORAL Q6H PRN for For Pain, (Reported) Ondansetron* (Zofran*), 4 MG ORAL Q8HR PRN for Nausea & Vomiting, (Reported) Patient History Healthcare decision maker Resuscitation status Full Code Advanced Directive on File No Past Medical/Surgical History Past Medical/Surgical History: (1) EF < 20% (2) ICD (implantable cardioverter-defibrillator) in place (3) Emphysema lung (4) Right-sided heart failure (5) Cirrhosis (6) Ascites Review of Systems Respiratory: Reports: orthopnea Gastrointestinal: Reports: abdominal pain All Other Systems: negative except mentioned in HPI Physical Exam General Appearance: cachetic Lines, tubes and drains: peripheral HEENT: normocephalic, atraumatic Neck: non-tender, normal alignment Respiratory/Chest: chest wall non-tender, lungs clear Breasts: no masses Cardiovascular/Chest: normal peripheral pulses Abdomen: normal bowel sounds Genitourinary/Rectal: normal genital exam Extremities: normal range of motion Skin Exam: normal pigmentation Neurologic: splitter tender II-XII grossly normal Last 24 Hour Vital Signs Date Time Temp Pulse Resp B/P (MAP) Pulse Ox O2 Delivery O2 Flow Rate FiO2 02/03/18 09:05 76 133/83 02/03/18 09:04 76 02/03/18 09:04 76 133/83 02/03/18 09:03 133/83 02/03/18 08:00 97.2 76 18 133/83 (100) 97 97.2 02/03/18 04:00 97.0 70 20 127/93 (104) 99 97.0 02/03/18 03:42 77 02/03/18 03:36 75 02/03/18 01:08 Room Air 02/03/18 00:10 97.0 85 18 120/77 100 Room Air 97.0 02/03/18 00:00 97.0 85 18 129/92 (104) 100 97.0 02/02/18 22:35 98.0 16 120/83 100 Room Air 98.0 02/02/18 22:35 72 16 Room Air 02/02/18 22:16 98.1 02/02/18 21:37 98.1 72 16 120/83 100 Room Air 98.1 Intake and Output 02/02/18 02/03/18 19:00 07:00 Intake Total 120 ml Output Total 30 ml Balance 90 ml Intake Oral 120 ml Output Emesis 30 ml # Bowel Movements 1 Laboratory Tests Test 02/02/18 22:20 02/02/18 23:25 02/02/18 23:41 02/03/18 05:50 White Blood Count 5.3 K/UL (4.8-10.8) 5.0 K/UL (4.8-10.8) Red Blood Count 4.31 M/UL (4.70-6.10) L 4.43 M/UL (4.70-6.10) L Hemoglobin 11.5 G/DL (14.2-18.0) L 11.4 G/DL (14.2-18.0) L Hematocrit 36.9 % (42.0-52.0) L 37.5 % (42.0-52.0) L Mean Corpuscular Volume 86 FL (80-99) 85 FL (80-99) Mean Corpuscular Hemoglobin 26.6 PG (27.0-31.0) L 25.7 PG (27.0-31.0) L Mean Corpuscular Hemoglobin Concent 31.1 G/DL (32.0-36.0) L 30.3 G/DL (32.0-36.0) L Red Cell Distribution Width 19.6 % (11.6-14.8) H 19.1 % (11.6-14.8) H Platelet Count 200 K/UL (150-450) 208 K/UL (150-450) Mean Platelet Volume 6.0 FL (6.5-10.1) L 6.0 FL (6.5-10.1) L Neutrophils (%) (Auto) 65.2 % (45.0-75.0) 66.8 % (45.0-75.0) Lymphocytes (%) (Auto) 21.5 % (20.0-45.0) 19.5 % (20.0-45.0) L Monocytes (%) (Auto) 9.4 % (1.0-10.0) 11.6 % (1.0-10.0) H Eosinophils (%) (Auto) 1.4 % (0.0-3.0) 1.0 % (0.0-3.0) Basophils (%) (Auto) 2.5 % (0.0-2.0) H 1.1 % (0.0-2.0) Prothrombin Time 15.6 SEC (9.30-11.50) H Prothromb Time International Ratio 1.5 (0.9-1.1) H Activated Partial Thromboplast Time 28 SEC (23-33) Sodium Level 132 MMOL/L (136-145) L 135 MMOL/L (136-145) L Potassium Level 6.0 MMOL/L (3.5-5.1) *H 4.3 MMOL/L (3.5-5.1) 4.5 MMOL/L (3.5-5.1) Chloride Level 95 MMOL/L (98-107) L 96 MMOL/L (98-107) L Carbon Dioxide Level 24 MMOL/L (21-32) 26 MMOL/L (21-32) Anion Gap 14 mmol/L (5-15) 13 mmol/L (5-15) Blood Urea Nitrogen 50 mg/dL (7-18) H 53 mg/dL (7-18) H Creatinine 2.1 MG/DL (0.55-1.30) H 2.3 MG/DL (0.55-1.30) H Estimat Glomerular Filtration Rate 38.8 mL/min (>60) 34.9 mL/min (>60) Glucose Level 102 MG/DL (74-106) 100 MG/DL (74-106) Calcium Level 9.5 MG/DL (8.5-10.1) 8.9 MG/DL (8.5-10.1) Total Bilirubin 2.8 MG/DL (0.2-1.0) H 3.1 MG/DL (0.2-1.0) H Direct Bilirubin 1.0 MG/DL (0.0-0.3) H 1.8 MG/DL (0.0-0.3) H Aspartate Amino Transf (AST/SGOT) 58 U/L (15-37) H 29 U/L (15-37) Alanine Aminotransferase (ALT/SGPT) 23 U/L (12-78) 19 U/L (12-78) Alkaline Phosphatase 113 U/L (46-116) 102 U/L (46-116) Total Creatine Kinase 161 U/L (26-308) Creatine Kinase MB 0.7 NG/ML (0.0-3.6) Creatine Kinase MB Relative Index 0.4 Troponin I 0.014 ng/mL (0.000-0.056) Pro-B-Type Natriuretic Peptide 58013 pg/mL (0-125) H Total Protein 8.8 G/DL (6.4-8.2) H 8.3 G/DL (6.4-8.2) H Albumin 3.9 G/DL (3.4-5.0) 3.5 G/DL (3.4-5.0) Globulin 4.9 g/dL 4.8 g/dL Albumin/Globulin Ratio 0.8 (1.0-2.7) L 0.7 (1.0-2.7) L Urine Color Yellow Urine Appearance Clear Urine pH 5 (4.5-8.0) Urine Specific [place] 1.020 (1.005-1.035) Urine Protein 3+ (NEGATIVE) H Urine Glucose (UA) Negative (NEGATIVE) Urine Ketones Negative (NEGATIVE) Urine Occult Blood Negative (NEGATIVE) Urine Nitrite Negative (NEGATIVE) Urine Bilirubin Negative (NEGATIVE) Urine Urobilinogen 1 MG/DL (0.0-1.0) H Urine Leukocyte Esterase 1+ (NEGATIVE) H Urine RBC 0-2 /HPF (0 - 0) H Urine WBC 5-10 /HPF (0 - 0) H Urine Squamous Epithelial Cells Few /LPF (NONE/OCC) Urine Calcium Oxalate Crystals Few /LPF (NONE) Urine Bacteria Few /HPF (NONE) Urine Coarse Granular Casts 0-2 /LPF (NONE) H Urine Opiates Screen Negative (NEGATIVE) Urine Barbiturates Screen Negative (NEGATIVE) Phencyclidine (PCP) Screen Negative (NEGATIVE) Urine Amphetamines Screen Negative (NEGATIVE) Urine Benzodiazepines Screen Negative (NEGATIVE) Urine Cocaine Screen Negative (NEGATIVE) Urine Marijuana (THC) Screen Positive (NEGATIVE) H Digoxin Level 0.8 NG/ML (0.5-2.0) Height (Feet): 5 Height (Inches): 9.00 Weight (Pounds): 163 Medications Current Medications Medications (Trade) Dose Ordered Sig/Allyn Route PRN Reason Start Time Stop Time Status Last Admin Dose Admin Ascorbic Acid (Vitamin C) 500 mg DAILY ORAL 02/03/18 09:00 03/05/18 08:59 02/03/18 09:04 Bisacodyl (Dulcolax) 5 mg DAILYPRN PRN ORAL Constipation 02/03/18 00:45 03/05/18 00:44 Carvedilol (Coreg) 3.125 mg BID ORAL 02/03/18 09:00 03/05/18 08:59 02/03/18 09:05 Digoxin (Lanoxin) 0.125 mg DAILY ORAL 02/03/18 09:00 03/05/18 08:59 02/03/18 09:04 Diphenhydramine HCl (Benadryl) 25 mg Q8H PRN IVP Itching 02/03/18 00:45 03/05/18 00:44 Ferrous Sulfate (Feosol) 325 mg DAILY ORAL 02/03/18 09:00 03/05/18 08:59 02/03/18 09:04 Furosemide (Lasix) 20 mg BID ORAL 02/03/18 09:00 03/05/18 08:59 02/03/18 09:04 Gabapentin (Neurontin) 100 mg BID ORAL 02/03/18 09:00 03/05/18 08:59 02/03/18 09:04 Levothyroxine Sodium (Synthroid) 125 mcg DAILY@0630 ORAL 02/03/18 06:30 03/05/18 06:29 02/03/18 06:22 Lisinopril (Zestril) 5 mg DAILY ORAL 02/03/18 09:00 03/05/18 08:59 02/03/18 09:03 Magnesium Hydroxide (Mom) 30 ml DAILYPRN PRN ORAL Constipation 02/03/18 00:45 03/05/18 00:44 Morphine Sulfate (Morphine Sulfate) 4 mg Q4H PRN IVP For Pain 02/03/18 00:45 02/10/18 00:44 02/03/18 06:24 Multivitamins (Multivitamins) 1 tab DAILY ORAL 02/03/18 09:00 03/05/18 08:59 02/03/18 09:04 Ondansetron HCl (Zofran) 4 mg Q8H PRN IVP Nausea & Vomiting 02/03/18 00:45 03/05/18 00:44 02/03/18 06:29 Oxycodone HCl (Roxicodone) 10 mg Q6H PRN ORAL moderate Breakthrough Pain 02/03/18 08:00 02/10/18 07:59 Pantoprazole (Protonix) 40 mg DAILY ORAL 02/03/18 09:00 03/05/18 08:59 02/03/18 09:04 Rivaroxaban (Xarelto) 15 mg DAILY ORAL 02/03/18 09:00 03/05/18 08:59 02/03/18 09:05 Sotalol HCl (Betapace) 80 mg BID ORAL 02/03/18 09:00 03/05/18 08:59 02/03/18 09:04 Spironolactone (Aldactone) 25 mg DAILY ORAL 02/03/18 09:00 03/05/18 08:59 02/03/18 09:04 Tizanidine HCl (Zanaflex) 4 mg THREE TIMES A DAY ORAL 02/03/18 09:00 03/05/18 08:59 02/03/18 09:03 Assessment/Plan Problem List: (1) ARIS (acute kidney injury) ICD Codes: N17.9 - Acute kidney failure, unspecified SNOMED: 97674920 (2) ACS (acute coronary syndrome) ICD Codes: I24.9 - Acute coronary syndrome SNOMED: 965721143 (3) ICD (implantable cardioverter-defibrillator) in place ICD Codes: Z95.810 - Presence of automatic (implantable) cardiac defibrillator SNOMED: 740494458, 859279886 (4) Emphysema lung ICD Codes: J43.9 - Emphysema lung SNOMED: 76492295 (5) Cirrhosis ICD Codes: K74.60 - Unspecified cirrhosis of liver SNOMED: 29663535 (6) Hepatitis C ICD Codes: B19.20 - Hepatitis C SNOMED: 65642470 (7) Lumbar radiculopathy ICD Codes: M54.16 - Lumbar radiculopathy SNOMED: 006039556 (8) EF < 20% (9) Ascites ICD Codes: R18.8 - Ascites SNOMED: 932195320 Assessment/Plan symptomatic treatment check electrolytes diuretics avoid nephrotoxics pain management palliative care. Andrzej Chavarria MD Feb 03, 2018 12:27
--- NOTE | 2018-02-03 13:05 | GI Initial Consult Note ---
History of Present Illness General Date patient seen: Feb 03, 2018 Time patient seen: 13:00 Reason for Hospitalization: Chest Pain Referring physician: ALVARADO BETTS Reason for Consultation: Abdominal Pain Present Illness HPI This is 62-year-old male with multiple medical problem. He has a history of severe cardiomyopathy with ejection fraction around 10%. Also with history of CHF, end-stage liver disease with cirrhosis and ascites. He has history of chronic pain and take oxycodone. He presents with chief complaint abdominal pain and chest pain. This is similar to previous episode. Pain is 10 out of 10. No nausea no vomiting. No fever chills. Nothing made it better. Nothing made it worse. His oxycodone is not helping. Denies any other complaint. GI consulted for anemia/cirrhosis. Pt seen, c/o of chest and abdominal pain. NAD, no active s/sx of N/V/D. Had one ep of emesis yesterday, but denied any hematemesis or coffee grounds. Abdomen is firm, distended, noted with ascites on recent abdominal U/S. Denies diarrhea. Hx of Hep C s/p treatment now negative, ?Cirrhosis, HTN, CHF, Pacemaker. Pt states he drinks beer and uses marijuana occasional. Denies tobacco use. Last colonoscopy 2 years ago. Home Meds Reported Medications Bisacodyl (DULCOLAX) 10 Mg Supp.rect, 10 MG RC DAILY PRN for Constipation, SUPP 01/20/18 Magnesium Hydroxide* (MILK OF MAGNESIA*) 400 Mg/5 Ml Oral.susp, 30 ML ORAL DAILY PRN for Constipation, ML 01/20/18 Ondansetron* (ZOFRAN*) 4 Mg Tablet, 4 MG ORAL Q8HR PRN for Nausea & Vomiting, TAB 01/20/18 Diphenhydramine Hcl* (DIPHENHYDRAMINE HCL*) 25 Mg Capsule, 25 MG ORAL Q8H PRN for Itching, #30 CAP 0 Refills 01/20/18 Rivaroxaban (XARELTO*) 10 Mg Tablet, 15 MG ORAL DAILY, #30 TAB 0 Refills 01/20/18 Spironolactone* (SPIRONOLACTONE*) 100 Mg Tablet, 25 MG ORAL DAILY, TAB 01/20/18 Lisinopril (LISINOPRIL*) 5 Mg Tablet, 5 MG ORAL DAILY, TAB 01/20/18 Levothyroxine Sodium* (LEVOTHYROXINE SODIUM*) 125 Mcg Tablet, 125 MCG ORAL BEFORE BREAKFAST, TAB Take in the morning on an empty stomach, at least 30 minutes before food. 01/20/18 Gabapentin* (GABAPENTIN*) 100 Mg Capsule, 100 MG ORAL BID, CAP 01/20/18 Furosemide* (LASIX*) 20 Mg Tablet, 20 MG ORAL BID, TAB 01/20/18 Carvedilol* (CARVEDILOL*) 3.125 Mg Tablet, 3.125 MG ORAL BID, TAB 01/20/18 OXYCODONE HCl* (ROXICODONE*) 15 Mg Tablet, 15 MG ORAL Q6H PRN for For Pain, TAB 09/29/17 Tizanidine Hcl* (ZANAFLEX*) 4 Mg Tablet, 4 MG ORAL THREE TIMES A DAY, #90 TAB 0 Refills 09/29/17 Sotalol Hcl (SOTALOL*) 80 Mg Tablet, 80 MG ORAL BID, #30 TAB 0 Refills 09/29/17 Digoxin* (DIGOXIN*) 125 Mcg Tablet, 125 MCG ORAL DAILY, TAB 09/29/17 Ascorbic Acid* (VITAMIN C*) 500 Mg Tablet, 500 MG ORAL DAILY, #30 TAB 0 Refills 09/29/17 Ferrous Sulfate* (FERROUS SULFATE*) 325 Mg Tablet, 325 MG ORAL DAILY, #30 TAB 0 Refills 09/29/17 Pantoprazole* (PROTONIX*) 40 Mg Tablet.dr, 40 MG ORAL DAILY, TAB 09/15/17 Multivitamins* (MULTIVITAMINS*) 1 Each Tablet, 2 TAB ORAL DAILY, TAB 0 Refills 04/09/16 Med list reviewed/reconciled: Yes Allergies: Coded Allergies: HYDROMORPHONE (Verified Allergy, Unknown, 12/28/10) Patient History History Provided By: Patient, Medical Record PMH Narrative Past Medical History: see triage record, old chart reviewed, HTN, CAD, CHF, COPD Past Surgical History: other Pertinent Family History: none Social History: Denies: smoking Immunizations: other Reviewed Nursing Documentation: PMH: Agreed; PSxH: Agreed Nursing Documentation-PMH Hx Cardiac Problems: Yes Hx Hypertension: Yes Hx Pacemaker: Yes - Left upper chest Hx COPD: Yes Hx Cancer: No Hx Gastrointestinal Problems: Yes Hx Neurological Problems: No Hx Cerebrovascular Accident: No Hx Transient Ischemic Attacks: No Social History: Reports: alcohol use, drug use Review of Systems All Other Systems: negative except mentioned in HPI Physical Exam Vital Signs Date Time Temp Pulse Resp B/P (MAP) Pulse Ox O2 Delivery O2 Flow Rate FiO2 02/02/18 21:37 98.1 72 16 120/83 100 Room Air 98.1 Sp02 EP Interpretation: reviewed, normal Labs Laboratory Tests Test 02/02/18 22:20 02/02/18 23:25 02/02/18 23:41 02/03/18 05:50 White Blood Count 5.3 K/UL (4.8-10.8) 5.0 K/UL (4.8-10.8) Red Blood Count 4.31 M/UL (4.70-6.10) L 4.43 M/UL (4.70-6.10) L Hemoglobin 11.5 G/DL (14.2-18.0) L 11.4 G/DL (14.2-18.0) L Hematocrit 36.9 % (42.0-52.0) L 37.5 % (42.0-52.0) L Mean Corpuscular Volume 86 FL (80-99) 85 FL (80-99) Mean Corpuscular Hemoglobin 26.6 PG (27.0-31.0) L 25.7 PG (27.0-31.0) L Mean Corpuscular Hemoglobin Concent 31.1 G/DL (32.0-36.0) L 30.3 G/DL (32.0-36.0) L Red Cell Distribution Width 19.6 % (11.6-14.8) H 19.1 % (11.6-14.8) H Platelet Count 200 K/UL (150-450) 208 K/UL (150-450) Mean Platelet Volume 6.0 FL (6.5-10.1) L 6.0 FL (6.5-10.1) L Neutrophils (%) (Auto) 65.2 % (45.0-75.0) 66.8 % (45.0-75.0) Lymphocytes (%) (Auto) 21.5 % (20.0-45.0) 19.5 % (20.0-45.0) L Monocytes (%) (Auto) 9.4 % (1.0-10.0) 11.6 % (1.0-10.0) H Eosinophils (%) (Auto) 1.4 % (0.0-3.0) 1.0 % (0.0-3.0) Basophils (%) (Auto) 2.5 % (0.0-2.0) H 1.1 % (0.0-2.0) Prothrombin Time 15.6 SEC (9.30-11.50) H Prothromb Time International Ratio 1.5 (0.9-1.1) H Activated Partial Thromboplast Time 28 SEC (23-33) Sodium Level 132 MMOL/L (136-145) L 135 MMOL/L (136-145) L Potassium Level 6.0 MMOL/L (3.5-5.1) *H 4.3 MMOL/L (3.5-5.1) 4.5 MMOL/L (3.5-5.1) Chloride Level 95 MMOL/L (98-107) L 96 MMOL/L (98-107) L Carbon Dioxide Level 24 MMOL/L (21-32) 26 MMOL/L (21-32) Anion Gap 14 mmol/L (5-15) 13 mmol/L (5-15) Blood Urea Nitrogen 50 mg/dL (7-18) H 53 mg/dL (7-18) H Creatinine 2.1 MG/DL (0.55-1.30) H 2.3 MG/DL (0.55-1.30) H Estimat Glomerular Filtration Rate 38.8 mL/min (>60) 34.9 mL/min (>60) Glucose Level 102 MG/DL (74-106) 100 MG/DL (74-106) Calcium Level 9.5 MG/DL (8.5-10.1) 8.9 MG/DL (8.5-10.1) Total Bilirubin 2.8 MG/DL (0.2-1.0) H 3.1 MG/DL (0.2-1.0) H Direct Bilirubin 1.0 MG/DL (0.0-0.3) H 1.8 MG/DL (0.0-0.3) H Aspartate Amino Transf (AST/SGOT) 58 U/L (15-37) H 29 U/L (15-37) Alanine Aminotransferase (ALT/SGPT) 23 U/L (12-78) 19 U/L (12-78) Alkaline Phosphatase 113 U/L (46-116) 102 U/L (46-116) Total Creatine Kinase 161 U/L (26-308) Creatine Kinase MB 0.7 NG/ML (0.0-3.6) Creatine Kinase MB Relative Index 0.4 Troponin I 0.014 ng/mL (0.000-0.056) Pro-B-Type Natriuretic Peptide 20678 pg/mL (0-125) H Total Protein 8.8 G/DL (6.4-8.2) H 8.3 G/DL (6.4-8.2) H Albumin 3.9 G/DL (3.4-5.0) 3.5 G/DL (3.4-5.0) Globulin 4.9 g/dL 4.8 g/dL Albumin/Globulin Ratio 0.8 (1.0-2.7) L 0.7 (1.0-2.7) L Urine Color Yellow Urine Appearance Clear Urine pH 5 (4.5-8.0) Urine Specific [place] 1.020 (1.005-1.035) Urine Protein 3+ (NEGATIVE) H Urine Glucose (UA) Negative (NEGATIVE) Urine Ketones Negative (NEGATIVE) Urine Occult Blood Negative (NEGATIVE) Urine Nitrite Negative (NEGATIVE) Urine Bilirubin Negative (NEGATIVE) Urine Urobilinogen 1 MG/DL (0.0-1.0) H Urine Leukocyte Esterase 1+ (NEGATIVE) H Urine RBC 0-2 /HPF (0 - 0) H Urine WBC 5-10 /HPF (0 - 0) H Urine Squamous Epithelial Cells Few /LPF (NONE/OCC) Urine Calcium Oxalate Crystals Few /LPF (NONE) Urine Bacteria Few /HPF (NONE) Urine Coarse Granular Casts 0-2 /LPF (NONE) H Urine Opiates Screen Negative (NEGATIVE) Urine Barbiturates Screen Negative (NEGATIVE) Phencyclidine (PCP) Screen Negative (NEGATIVE) Urine Amphetamines Screen Negative (NEGATIVE) Urine Benzodiazepines Screen Negative (NEGATIVE) Urine Cocaine Screen Negative (NEGATIVE) Urine Marijuana (THC) Screen Positive (NEGATIVE) H Digoxin Level 0.8 NG/ML (0.5-2.0) General Appearance: well appearing, no apparent distress, alert Head: normocephalic EENT: PERRL/EOMI, normal ENT inspection Neck: supple Respiratory: normal breath sounds, no respiratory distress Cardiovascular: normal rate Gastrointestinal: normal inspection, non tender, soft, normal bowel sounds, non -distended Rectal: deferred Genitourinary: deferred Musculoskeletal: normal inspection, back normal Neurologic: normal inspection, alert, oriented x3, responsive Psychiatric: normal inspection, judgement/insight normal, memory normal Skin: normal inspection, normal color, no rash, warm/dry, palpation normal, well hydrated Lymphatic: normal inspection, no adenopathy Current Medications Current Medications Medications (Trade) Dose Ordered Sig/Allyn Route PRN Reason Start Time Stop Time Status Last Admin Dose Admin Ascorbic Acid (Vitamin C) 500 mg DAILY ORAL 02/03/18 09:00 03/05/18 08:59 02/03/18 09:04 Bisacodyl (Dulcolax) 5 mg DAILYPRN PRN ORAL Constipation 02/03/18 00:45 03/05/18 00:44 Carvedilol (Coreg) 3.125 mg BID ORAL 02/03/18 09:00 03/05/18 08:59 02/03/18 09:05 Digoxin (Lanoxin) 0.125 mg DAILY ORAL 02/03/18 09:00 03/05/18 08:59 02/03/18 09:04 Diphenhydramine HCl (Benadryl) 25 mg Q8H PRN IVP Itching 02/03/18 00:45 03/05/18 00:44 Ferrous Sulfate (Feosol) 325 mg DAILY ORAL 02/03/18 09:00 03/05/18 08:59 02/03/18 09:04 Furosemide (Lasix) 20 mg BID ORAL 02/03/18 09:00 03/05/18 08:59 02/03/18 09:04 Gabapentin (Neurontin) 100 mg BID ORAL 02/03/18 09:00 03/05/18 08:59 02/03/18 09:04 Levothyroxine Sodium (Synthroid) 125 mcg DAILY@0630 ORAL 02/03/18 06:30 03/05/18 06:29 02/03/18 06:22 Lisinopril (Zestril) 5 mg DAILY ORAL 02/03/18 09:00 03/05/18 08:59 02/03/18 09:03 Magnesium Hydroxide (Mom) 30 ml DAILYPRN PRN ORAL Constipation 02/03/18 00:45 03/05/18 00:44 Morphine Sulfate (Morphine Sulfate) 4 mg Q4H PRN IVP For Pain 02/03/18 00:45 02/10/18 00:44 02/03/18 06:24 Multivitamins (Multivitamins) 1 tab DAILY ORAL 02/03/18 09:00 03/05/18 08:59 02/03/18 09:04 Ondansetron HCl (Zofran) 4 mg Q8H PRN IVP Nausea & Vomiting 02/03/18 00:45 03/05/18 00:44 02/03/18 06:29 Oxycodone HCl (Roxicodone) 10 mg Q6H PRN ORAL moderate Breakthrough Pain 02/03/18 08:00 02/10/18 07:59 Pantoprazole (Protonix) 40 mg DAILY ORAL 02/03/18 09:00 03/05/18 08:59 02/03/18 09:04 Rivaroxaban (Xarelto) 15 mg DAILY ORAL 02/03/18 09:00 03/05/18 08:59 02/03/18 09:05 Sotalol HCl (Betapace) 80 mg BID ORAL 02/03/18 09:00 03/05/18 08:59 02/03/18 09:04 Spironolactone (Aldactone) 25 mg DAILY ORAL 02/03/18 09:00 03/05/18 08:59 02/03/18 09:04 Tizanidine HCl (Zanaflex) 4 mg THREE TIMES A DAY ORAL 02/03/18 09:00 03/05/18 08:59 02/03/18 12:25 GI: Plan Problems: (1) Cirrhosis (2) Emesis (3) Cirrhosis (4) Chronic pain (5) ARIS (acute kidney injury) (6) CHF (congestive heart failure) (7) Ascites (8) Cirrhosis (9) Hepatitis C Plan hx of Hep C in 2014 s/p tx >> hep panel redrawn in 2017 was negative s/p colonoscopy with one polyp 06/26/16 symptomatic treatment, fu cardiology recs paracentesis prn diuresis adv low sodium diet bowel regime ppi pain mgmt fu labs could benefit from outpatient fibroid scan evaluate cirrhosis repeat colonoscopy in [address] Ryan. Thank you for this patient referral, we will follow. The patient was seen and examined at bedside and all new and available data was reviewed in the patients chart. I agree with the above findings, impression and plan. (Patient seen earlier today. Signature stamp does not reflect patient encounter time.). - MD [facility] Feb 03, 2018 13:05
--- NOTE | 2018-02-03 14:31 | Consultation ---
Consult Note Consult Note i was asked to evaluate for renal failure This is 62-year-old male with multiple medical problem. He has a history of severe cardiomyopathy with ejection fraction around 10%. Also with history of CHF, end-stage liver disease with cirrhosis and ascites. He has history of chronic pain and take oxycodone. He presents with chief complaint abdominal pain and chest pain. This is similar to previous episode. Pain is 10 out of 10. No nausea no vomiting. No fever chills. Nothing made it better. Nothing made it worse. His oxycodone is not helping. Denies any other complaint. Allergies: HYDROMORPHONE (Verified Allergy, Unknown, 12/28/10) Hx Cardiac Problems: Yes Hx Hypertension: Yes Hx Pacemaker: Yes - Left upper chest Hx COPD: Yes Hx Gastrointestinal Problems: Yes examined- data reviewed Assessment/Plan Chest pain Abdominal pain Cardiomyopathy due to hypertension, with heart failure and Hypotension EF < 20% Chronic pain ARIS (acute kidney injury) due to cardiac and liver disease Hep C and Cirrhosis HypoThyroidism Cannabis abuse Optimize cardiac status monitor renal parameters poor prognosis due to sever cardiac disease avoid nephrotoxics suggest re eval code status Blaine Rojas MD Feb 03, 2018 14:31
[2018-02-03] MEDS ORDERED: Midodrine 10mg tab ORAL SCH (20:00)
[2018-02-03] MEDS ORDERED: NS 250 ML IVPB SCH (21:15)
[2018-02-03] MEDS ORDERED: NS 250 ML IVPB ONE (22:00)
[2018-02-03] MEDS ORDERED: Lidocaine 2% 20mg/ml/EPI 0.01mg/ml 20ml INJ ONE (22:15)
--- NOTE | 2018-02-03 23:56 | Cardiology Progress Note ---
Assessment/Plan Assessment/Plan The patient is seen and examined, full consult note is dictated. Objective Last 24 Hour Vital Signs Date Time Temp Pulse Resp B/P (MAP) Pulse Ox O2 Delivery O2 Flow Rate FiO2 02/03/18 23:30 70 13 91/64 (73) 100 02/03/18 23:00 70 14 92/68 (76) 99 02/03/18 22:30 70 13 81/53 (62) 99 02/03/18 22:00 70 13 84/55 (65) 100 02/03/18 22:00 92/64 02/03/18 21:30 70 15 83/61 (68) 100 02/03/18 21:10 70 02/03/18 21:10 97.5 70 13 76/51 (59) 100 97.5 02/03/18 21:00 Room Air 02/03/18 20:00 97.5 71 16 80/46 (57) 97 97.5 02/03/18 17:48 70 106/70 02/03/18 17:47 70 106/70 02/03/18 16:00 70 02/03/18 16:00 97.5 71 18 106/72 (83) 97 97.5 02/03/18 12:00 97.0 70 18 99/70 (80) 98 97.0 02/03/18 12:00 70 02/03/18 09:05 76 133/83 02/03/18 09:04 76 02/03/18 09:04 76 133/83 02/03/18 09:03 133/83 02/03/18 09:00 Room Air 02/03/18 08:00 76 02/03/18 08:00 97.2 76 18 133/83 (100) 97 97.2 02/03/18 04:00 97.0 70 20 127/93 (104) 99 97.0 02/03/18 03:42 77 02/03/18 03:36 75 02/03/18 01:08 Room Air 02/03/18 00:10 97.0 85 18 120/77 100 Room Air 97.0 02/03/18 00:00 97.0 85 18 129/92 (104) 100 97.0 Intake and Output 02/02/18 02/03/18 19:00 07:00 Intake Total 120 ml Output Total 30 ml Balance 90 ml Intake Oral 120 ml Emesis 30 ml # Bowel Movements 1 Laboratory Tests Test 02/03/18 05:50 White Blood Count 5.0 K/UL (4.8-10.8) Red Blood Count 4.43 M/UL (4.70-6.10) L Hemoglobin 11.4 G/DL (14.2-18.0) L Hematocrit 37.5 % (42.0-52.0) L Mean Corpuscular Volume 85 FL (80-99) Mean Corpuscular Hemoglobin 25.7 PG (27.0-31.0) L Mean Corpuscular Hemoglobin Concent 30.3 G/DL (32.0-36.0) L Red Cell Distribution Width 19.1 % (11.6-14.8) H Platelet Count 208 K/UL (150-450) Mean Platelet Volume 6.0 FL (6.5-10.1) L Neutrophils (%) (Auto) 66.8 % (45.0-75.0) Lymphocytes (%) (Auto) 19.5 % (20.0-45.0) L Monocytes (%) (Auto) 11.6 % (1.0-10.0) H Eosinophils (%) (Auto) 1.0 % (0.0-3.0) Basophils (%) (Auto) 1.1 % (0.0-2.0) Sodium Level 135 MMOL/L (136-145) L Potassium Level 4.5 MMOL/L (3.5-5.1) Chloride Level 96 MMOL/L (98-107) L Carbon Dioxide Level 26 MMOL/L (21-32) Anion Gap 13 mmol/L (5-15) Blood Urea Nitrogen 53 mg/dL (7-18) H Creatinine 2.3 MG/DL (0.55-1.30) H Estimat Glomerular Filtration Rate 34.9 mL/min (>60) Glucose Level 100 MG/DL (74-106) Calcium Level 8.9 MG/DL (8.5-10.1) Total Bilirubin 3.1 MG/DL (0.2-1.0) H Direct Bilirubin 1.8 MG/DL (0.0-0.3) H Aspartate Amino Transf (AST/SGOT) 29 U/L (15-37) Alanine Aminotransferase (ALT/SGPT) 19 U/L (12-78) Alkaline Phosphatase 102 U/L (46-116) C-Reactive Protein, Quantitative 1.7 mg/dL (0.00-0.90) H Total Protein 8.3 G/DL (6.4-8.2) H Albumin 3.5 G/DL (3.4-5.0) Globulin 4.8 g/dL Albumin/Globulin Ratio 0.7 (1.0-2.7) L Digoxin Level 0.8 NG/ML (0.5-2.0) Rc Flower MD Feb 03, 2018 23:56
[2018-02-04] VITALS (32 sets, daily range): BP systolic 84–125; BP diastolic 60–88
[2018-02-04] MEDS ORDERED: Morphine Sulfate 4mg/ml Inj (IV USE ONLY) IVP PRN ×3 (00:45→16:45)
[2018-02-04] MEDS ORDERED: Bisacodyl EC 5mg tab ORAL PRN (00:45)
[2018-02-04] MEDS ORDERED: DiphenhydrAMINE 50mg/ml Inj IVP PRN ×4 (00:45→16:45)
[2018-02-04] MEDS ORDERED: oxyCODONE 5mg IR tab ORAL PRN ×4 (02:00→20:00)
--- NOTE | 2018-02-04 04:01 | Emergency Room Report ---
History of Present Illness General Chief Complaint: Chest Pain Source: Patient, Medical Record Present Illness HPI This patient was admitted for chest pain noted to be hypotensive and need to be on a Levophed. Was called by Dr. Araiza for central line for pressors. Consent obtained from patient. Risks and benefits explained. I place a right femoral central line without any difficulty. Patient tolerated procedure without a problem. Allergies: Coded Allergies: HYDROMORPHONE (Verified Allergy, Unknown, 12/28/10) Nursing Documentation-PMH Hx Cardiac Problems: Yes Hx Hypertension: Yes Hx Pacemaker: Yes - Left upper chest Hx COPD: Yes Hx Cancer: No Hx Gastrointestinal Problems: Yes Hx Neurological Problems: No Hx Cerebrovascular Accident: No Hx Transient Ischemic Attacks: No Physical Exam Vital Signs Date Time Temp Pulse Resp B/P (MAP) Pulse Ox O2 Delivery O2 Flow Rate FiO2 02/02/18 21:37 98.1 72 16 120/83 100 Room Air 98.1 Procedures Central Line Central Line : Consent: Verbal Central Line Lumen: triple Maximal Sterile Barrier Tech: yes cap, yes mask, yes sterile gown, yes sterile gloves, yes large sterile sheet, yes hand hygiene, yes chlorhexidine prep Central Line Postion: femoral (R) Anesthesia: Lidocaine cc's of anesthesia: 7 Complications: none Central Line Post Position: sutured, good blood return Attempts: One Patient Tolerated: Well Complications: None Medical Decision Making Diagnostic Impression: Primary Impression: Chest pain Qualified Codes: R07.9 - Chest pain, unspecified Additional Impressions: EF < 20% Chronic pain Qualified Codes: G89.4 - Chronic pain syndrome Cardiomyopathy due to hypertension, with heart failure Abdominal pain Qualified Codes: R10.84 - Generalized abdominal pain ARIS (acute kidney injury) Last Vital Signs Date Time Temp Pulse Resp B/P (MAP) Pulse Ox O2 Delivery O2 Flow Rate FiO2 02/04/18 03:00 70 13 93/62 (72) 100 02/04/18 00:00 Room Air 02/03/18 21:10 97.5 97.5 Disposition: ADMITTED INPATIENT Condition: Serious Referrals: Shahid Cherry DO (PCP) JOSÉ MANUEL HENSLEY M.D. Feb 04, 2018 04:01
[2018-02-04 04:42] LABS: BASOPHILS % (AUTO) 1.1 % (0.0-2.0); EOSINOPHILS % (AUTO) 1.4 % (0.0-3.0); HEMATOCRIT 35.7 % (42.0-52.0); HEMOGLOBIN 11.3 G/DL (14.2-18.0); LYMPHOCYTES % (AUTO) 11.9 % (20.0-45.0); MEAN CORPUSCULAR VOLUME 84 FL (80-99); MONOCYTES % (AUTO) 8.3 % (1.0-10.0); NEUTROPHILS % (AUTO) 77.2 % (45.0-75.0); PLATELET COUNT 198 K/UL (150-450); RED BLOOD COUNT 4.27 M/UL (4.70-6.10); RED CELL DISTRIBUTION WIDTH 19.2 % (11.6-14.8)
[2018-02-04 05:04] LABS: ALANINE AMINOTRANSFERASE 17 U/L (12-78); ALBUMIN 2.8 G/DL (3.4-5.0); ALBUMIN/GLOBULIN RATIO 0.8 (1.0-2.7); ALKALINE PHOSPHATASE 76 U/L (46-116); ANION GAP 5 mmol/L (5-15); ASPARTATE AMINO TRANSFERASE 25 U/L (15-37); BILIRUBIN,TOTAL 2.4 MG/DL (0.2-1.0); BLOOD UREA NITROGEN 52 mg/dL (7-18); CALCIUM 8.1 MG/DL (8.5-10.1); CARBON DIOXIDE 32 MMOL/L (21-32); CHLORIDE 101 MMOL/L (98-107); CHOLESTEROL 111 MG/DL (< 200); CREATININE 2.3 MG/DL (0.55-1.30); HDL CHOLESTEROL 24 MG/DL (40-60); PHOSPHORUS 3.9 MG/DL (2.5-4.9); SODIUM 138 MMOL/L (136-145); TRIGLYCERIDES 62 MG/DL (30-150)
[2018-02-04 05:05] LABS: CREATINE KINASE 31 U/L (26-308); GAMMA GLUTAMYL TRANSPEPTIDASE 100 U/L (5-85)
[2018-02-04 05:11] LABS: BILIRUBIN,DIRECT 1.3 MG/DL (0.0-0.3)
[2018-02-04 05:30] LABS: AMMONIA 44 umol/L (11-32)
[2018-02-04] MEDS ORDERED: Levothyroxine 125mcg tab ORAL SCH (06:30)
--- NOTE | 2018-02-04 07:17 | History and Physical Report ---
DATE OF ADMISSION: 02/02/2018 I am covering for Dr. Shahid Cherry. This is Dr. Shahid Cherry's patient. Again, I am covering for his service. HISTORY OF PRESENT ILLNESS: The patient is admitted for chest pain and congestive heart failure exacerbation. The patient is a very poor historian and does have history of alcohol cirrhosis and reports shortness of breath and chest pain. Denies cough. Denies nausea, vomiting, or diarrhea. Denies palpitations. Denies fever or chills. PAST MEDICAL HISTORY: Significant for HNP (herniated nucleus pulposus in other words), history of dysphagia, history of hypothyroidism, history of colon polyps, lumbar spondylosis, alcohol cirrhosis, hypothyroidism, cardiomyopathy, CHF, history of ascites and cirrhosis, COPD, history of arrhythmia, lumbar radiculopathy, hepatitis C, cirrhosis, and GERD. PAST SURGICAL HISTORY: ICD. ALLERGIES: The patient is allergic to Dilaudid. MEDICATIONS: Vitamin C, bisacodyl, Coreg, digoxin, ferrous sulfate, Lasix, gabapentin, Levoxyl, lisinopril, Protonix, sotalol, spironolactone, and Zanaflex. FAMILY HISTORY: Noncontributory. SOCIAL HISTORY: He has history of smoking, history of drug abuse, and history of alcohol abuse as well. REVIEW OF SYSTEMS: HEENT: Denies headaches. RESPIRATORY: Reports shortness of breath. Denies cough. CARDIOVASCULAR: Does have chest pain for one day. No radiation. No palpitation. He does have orthopnea. GASTROINTESTINAL: Denies nausea, vomiting, or diarrhea. EXTREMITIES: He does have chronic pain. CENTRAL NERVOUS SYSTEM: Denies change in vision or speech pattern. PHYSICAL EXAMINATION: VITAL SIGNS: Temperature is 97 degrees, pulse is 70, and blood pressure is 99/70. HEENT: PERRLA. NECK: Supple. No lymphadenopathy. CHEST: Clear to auscultation. CARDIOVASCULAR: Regular rate and rhythm without murmurs. GASTROINTESTINAL: Soft, distended. Positive bowel sounds. No organomegaly. EXTREMITIES: 1+ edema. NEUROLOGIC: Reflexes equal on both sides. Moves all four extremities. Oriented to name only. LABORATORY AND DIAGNOSTIC DATA: Labs, WBC of 5.3, hemoglobin of 11.5, and platelets of 200. Sodium 132, potassium 6, BUN of 50, creatinine of 3.1, and glucose of 109. AST of 68 and ALT of 21. Total bilirubin of 2.8. Chest x-ray shows compatible with CHF. ASSESSMENT AND PLAN: 1. Hyperkalemia. 2. Chronic pain syndrome. 3. CHF exacerbation. 4. Chest pain, rule out ACS. I have consulted Dr. Carson, Dr. Flower, Dr. Rojas, and Dr. Ryan for the above-mentioned diagnoses and treatment. Winston Jin M.D. DR: CAROL JOB#: [id number] CC:
--- NOTE | 2018-02-04 07:59 | General Progress Note ---
Assessment/Plan Assessment/Plan (1) Lumbar degenerative disc disease (2) Lumbar spondylosis (3) Lumbar radiculopathy (4) Liver Cirrhosis (5) Abdominal pain Pt will be continued on morphine and Oxycodone. Pt was d/w Dr. Carson and he concurred. Subjective Date patient seen: Feb 04, 2018 Time patient seen: 07:30 - am Allergies: Coded Allergies: HYDROMORPHONE (Verified Allergy, Unknown, 12/28/10) Subjective Constitutional: Reports: weakness, Denies: chills, diaphoresis, fever, malaise , no symptoms, other HEENT: Denies: blurred vision, double vision, ear discharge, ear pain, eye pain , mouth pain, mouth swelling, no symptoms, nose congestion, nose pain, other, tearing, throat pain, throat swelling Cardiovascular: Denies: irregular heart rate, lightheadedness, no symptoms, other, palpitations, syncope Respiratory: Denies: SOB at rest, SOB with excertion, cough, no symptoms, orthopnea, other, shortness of breath, sputum, stridor, wheezing Gastrointestinal/Abdominal: Reports: abdominal pain, Denies: abdomen distended , black stools, blood in stool, constipated, diarrhea, difficulty swallowing, nausea, no symptoms, other, poor appetite, poor fluid intake, rectal bleeding, tarry stools, vomiting Genitourinary: Denies: burning, discharge, flank pain, frequency, hematuria, incontinence, no symptoms, other, pain, urgency Neurologic/Psychiatric: Reports: weakness, Denies: anxiety, depressed, emotional problems, headache, no symptoms, numbness, other, paresthesia, pre- existing deficit, seizure, tingling, tremors Endocrine: Denies: excessive sweating, flushing, increased hunger, increased thirst, increased urine, intolerance to cold, intolerance to heat, no symptoms, other, unexplained weight gain, unexplained weight loss Hematologic/Lymphatic: Denies: anemia, easy bleeding, easy bruising, no symptoms, other Subjective Patient is in bed showing no signs of pain or distress. Pain has been controlled on the Morphine and Oxycodone. Objective Last 24 Hour Vital Signs Date Time Temp Pulse Resp B/P (MAP) Pulse Ox O2 Delivery O2 Flow Rate FiO2 02/04/18 07:00 97/66 02/04/18 07:00 70 13 97/66 (76) 100 02/04/18 06:30 70 13 92/61 (71) 100 02/04/18 06:00 70 13 107/71 (83) 100 02/04/18 06:00 107/71 02/04/18 05:30 70 13 97/65 (76) 100 02/04/18 05:00 92/70 02/04/18 05:00 70 13 106/74 (85) 100 02/04/18 04:30 70 13 112/77 (89) 100 02/04/18 04:00 97.6 70 13 99/78 (85) 100 97.6 02/04/18 04:00 Room Air 02/04/18 04:00 99/78 02/04/18 04:00 70 02/04/18 03:30 70 13 92/62 (72) 100 02/04/18 03:00 70 13 93/62 (72) 100 02/04/18 03:00 93/62 02/04/18 02:30 70 13 93/64 (74) 100 02/04/18 02:00 70 13 95/65 (75) 100 02/04/18 01:59 84/63 02/04/18 01:30 70 13 91/60 (70) 100 02/04/18 01:00 70 13 84/63 (70) 100 02/04/18 00:30 70 13 90/62 (71) 100 02/04/18 00:00 70 02/04/18 00:00 70 13 88/61 (70) 100 02/04/18 00:00 Room Air 02/03/18 23:30 70 13 91/64 (73) 100 02/03/18 23:00 70 14 92/68 (76) 99 02/03/18 22:30 70 13 81/53 (62) 99 02/03/18 22:00 70 13 84/55 (65) 100 02/03/18 22:00 92/64 02/03/18 21:30 70 15 83/61 (68) 100 02/03/18 21:10 70 02/03/18 21:10 97.5 70 13 76/51 (59) 100 97.5 02/03/18 21:00 Room Air 02/03/18 20:00 97.5 71 16 80/46 (57) 97 97.5 8/21/18 17:48 70 106/70 02/03/18 17:47 70 106/70 02/03/18 16:00 70 02/03/18 16:00 97.5 71 18 106/72 (83) 97 97.5 02/03/18 12:00 97.0 70 18 99/70 (80) 98 97.0 02/03/18 12:00 70 02/03/18 09:05 76 133/83 02/03/18 09:04 76 02/03/18 09:04 76 133/83 02/03/18 09:03 133/83 02/03/18 09:00 Room Air 02/03/18 08:00 76 02/03/18 08:00 97.2 76 18 133/83 (100) 97 97.2 Intake and Output 02/03/18 02/04/18 19:00 07:00 Intake Total 120 ml 168.75 ml Output Total 300 ml 800 ml Balance -180 ml -631.25 ml Intake Oral 120 ml 150 ml IV Total 18.75 ml Output Urine Total 300 ml 800 ml Laboratory Tests 02/04/18 04:17: White Blood Count 5.0, Red Blood Count 4.27L, Hemoglobin 11.3L, Hematocrit 35.7L , Mean Corpuscular Volume 84, Mean Corpuscular Hemoglobin 26.4L, Mean Corpuscular Hemoglobin Concent 31.5L, Red Cell Distribution Width 19.2H, Platelet Count 198, Mean Platelet Volume 6.5, Neutrophils (%) (Auto) 77.2H, Lymphocytes (%) (Auto) 11.9L, Monocytes (%) (Auto) 8.3, Eosinophils (%) (Auto) 1.4, Basophils (%) (Auto) 1.1, Sodium Level 138, Potassium Level 4.0, Chloride Level 101, Carbon Dioxide Level 32, Anion Gap 5, Blood Urea Nitrogen 52H, Creatinine 2.3H, Estimat Glomerular Filtration Rate 34.9, Glucose Level 93, Hemoglobin A1c 6.9H, Uric Acid 13.3H, Calcium Level 8.1L, Phosphorus Level 3.9, Magnesium Level 2.0, Total Bilirubin 2.4H, Direct Bilirubin 1.3H, Gamma Glutamyl Transpeptidase 100H, Aspartate Amino Transf (AST/SGOT) 25, Alanine Aminotransferase (ALT/SGPT) 17, Alkaline Phosphatase 76, Ammonia 44H, Total Creatine Kinase 31, Troponin I 0.028, Pro-B-Type Natriuretic Peptide 6729H, Total Protein 6.2L, Albumin 2.8L, Globulin 3.4, Albumin/Globulin Ratio 0.8L, Triglycerides Level 62, Cholesterol Level 111, LDL Cholesterol 81, HDL Cholesterol 24L, Cholesterol/HDL Ratio 4.6H, Thyroid Stimulating Hormone (TSH) 14.173H, Cortisol AM Sample [Pending] Height (Feet): 5 Height (Inches): 9.00 Weight (Pounds): 163 Objective General Appearance: no apparent distress, alert EENT: normal ENT inspection, TMs normal Neck: normal alignment, supple Cardiovascular: normal rate, regular rhythm Respiratory/Chest: lungs clear, normal breath sounds Abdomen: tender, distended Extremities: non-tender Edema: edema noted in b/l LE Neurologic: alert, oriented x 3 Skin: warm/dry Luc Sanchez Feb 04, 2018 07:59
--- NOTE | 2018-02-04 08:32 | Consultation ---
DATE OF CONSULTATION: 02/03/2018 CARDIOLOGY CONSULTATION CONSULTING PHYSICIAN: Rc Flower M.D. REFERRING PHYSICIAN: Winston Jin M.D. REASON FOR CONSULTATION: Management of chest pain and shortness of breath. HISTORY OF PRESENT ILLNESS: The patient is a very unfortunate 62-year-old gentleman, who presents to the hospital with complaint of abdominal pain as well as chest pain. The patient claims that the pain is 10/10 more so in the abdominal area down to the chest area. No associated nausea, vomiting, fever or chills and not provoked and OxyContin not helping the pain. 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 On arrival to the emergency department, blood pressure was 120/83 mmHg and pulse rate of 72. A 12 lead electrocardiogram was significant for atrial flutter with nonspecific ST and T-wave abnormalities. The patient was admitted to telemetry for further evaluation and management. Cardiology consultation was made at the request of Dr. Winston Jin. PAST MEDICAL HISTORY: 1. History of liver cirrhosis. 2. History of cardiomyopathy with LVEF of 20%. 3. History of paroxysmal atrial fibrillation. 4. History of radiofrequency ablation of atrial fibrillation. 5. History of [place] biventricular pacemaker and AICD implantation. 6. History of hepatitis C virus infection. 7. History of chronic kidney disease. PAST SURGICAL HISTORY: 1. Thoracentesis. 2. History of pacemaker implantation. 3. History of upgrade of the pacemaker to biventricular defibrillator in September 2017. MEDICATIONS: List of medication include vitamin C 500 mg p.o. daily, carvedilol 3.125 twice daily, digoxin 125 mcg daily, diphenhydramine hydrochloride 25 mg q. 8 h. p.r.n. itching, ferrous sulfate 325 mg daily, furosemide 20 mg p.o. twice daily, gabapentin 100 mg p.o. twice daily, levothyroxine 125 mcg before breakfast, lisinopril 5 mg p.o. daily, magnesium hydroxide 30 mL daily p.r.n. constipation, multivitamin two tablets daily, Zofran 4 mg p.o. p.r.n. nausea and vomiting, oxycodone 15 mg p.o. q.6 h. p.r.n. pain, Protonix 40 mg p.o. daily, Xarelto 15 mg p.o. daily, sotalol 80 mg p.o. twice daily, spironolactone 25 mg p.o. daily, and Zanaflex 4 mg three times a day. ALLERGIES: Hydromorphone. FAMILY HISTORY: No history of premature coronary artery disease or arrhythmogenic in first-degree relatives. SOCIAL HISTORY: Denies any tobacco or illicit drug use. REVIEW OF SYSTEMS: HEENT: Denies any headache, diplopia, or blurred vision. CONSTITUTIONAL: Denies any fatigue, fever, chills, or night sweats. CARDIOVASCULAR: Complains of chest pain. No hypertension, no syncope, no PND, orthopnea, or leg swelling. PULMONARY: Denies any cough, wheezing, or hemoptysis. GASTROINTESTINAL: He has some abdominal pain, but no nausea, vomiting, diarrhea, constipation, or GI bleed. GENITOURINARY: Denies any hematuria, dysuria, or incontinence. NEUROLOGY: Denies any motor dysfunction or altered speech. PHYSICAL EXAMINATION: VITAL SIGNS: Blood pressure is 120/83, respirations 16, pulse 70, temperature 98.1 degrees Fahrenheit, and O2 saturation 100% on room air. GENERAL: The patient is a very unfortunate 62-year-old gentleman, in no apparent respiratory distress. Alert, thin, and chronically ill. HEENT: Atraumatic and normocephalic. Anicteric. Pupils are equal, round, and reactive to light and accommodation. Extraocular muscles intact. NECK: JVP less than 5 cm. No carotid bruits. CARDIOVASCULAR: Normal S1, S2. Regular rate and rhythm. No murmurs, gallops, or rubs. LUNGS: Clear to auscultation bilaterally. ABDOMEN: Soft, nontender, and nondistended. No hepatosplenomegaly. Positive bowel sounds. EXTREMITIES: No evidence of edema, clubbing, or cyanosis. LABORATORY DATA: WBC 5.3, hemoglobin 11.5, hematocrit 36.9, and platelet count is 200. Sodium 132, potassium is 6.0, chloride 95, bicarbonate 24, BUN 30, creatinine 2.1, glucose is 102, and calcium is 9.5. Troponin I is 0.014. ProBNP was 13,127. INR is 1.5. Toxicology shows positive THC. ASSESSMENT AND PLAN: The patient is a very unfortunate 62-year-old gentleman, seen in Cardiology consultation at the request of Dr. Jin. 1. Dilated cardiomyopathy with LVEF approximately 20%. This is a chronic condition. I would like to continue with the diuretics. 2. Status post cardiac resynchronization therapy with defibrillator implantation in September 2017. Consider DCCV of AF for better CLINICAL PROGRAMMER. 3. Hyperkalemia. 4. History of chronic kidney disease. 5. History of hyponatremia. 6. Persistent atrial fibrillation, s/p RFA in the past, may consider discontinuing sotalol, continue Xarelto. I would like to thank Dr. Jin, for allowing me to participate in the care of this patient. Rc Flower M.D. DR: RENNY JOB#: [id number] CC: CAMPBELL
[2018-02-04] MEDS ORDERED: Lisinopril 2.5mg tab ORAL SCH (09:00)
[2018-02-04] MEDS ORDERED: Xarelto 15mg tab ORAL SCH (09:00)
[2018-02-04] MEDS ORDERED: Sotalol 80mg tab ORAL SCH (09:00)
[2018-02-04] MEDS ORDERED: Digoxin 0.125mg tab ORAL SCH (09:00)
[2018-02-04] MEDS ORDERED: Spironolactone 25mg tab ORAL SCH (09:00)
[2018-02-04] MEDS ORDERED: Midodrine 10mg tab ORAL SCH ×4 (09:00→17:00)
[2018-02-04] MEDS ORDERED: Ascorbic Acid 500mg tab ORAL SCH (09:00)
--- NOTE | 2018-02-04 09:54 | Pulmonolgy Critical Care Note ---
Critical Care - Asmt/Plan Problems: (1) Cardiogenic shock (2) Chronic pain (3) Cirrhosis (4) EF < 10% (5) Emphysema lung (6) ICD (implantable cardioverter-defibrillator) in place Respiratory: monitor respiratory rate, adjust FIO2, CXR Cardiac: continue pressors, continue to monitor HR/BP, other - change to Dobutamine Renal: F/U I&O Infectious Disease: check cultures Gastrointestinal: continue feedings/current rate Hematologic: monitor H/H Neurologic: PRN Ativan, PRN Morphine Affect: PRN ativan Prophylaxis: Heparin Disposition: transfer to Time Spent (Minutes): 40 Notes Reviewed: cardio, renal Discussed with: nurses, consultants, case aidecorporate communications manager - Objective Last 24 Hour Vital Signs Date Time Temp Pulse Resp B/P (MAP) Pulse Ox O2 Delivery O2 Flow Rate FiO2 02/04/18 09:13 97.2 02/04/18 09:12 70 02/04/18 09:00 70 95/70 02/04/18 09:00 95/70 02/04/18 09:00 70 95/70 02/04/18 08:35 97.6 02/04/18 07:00 97/66 02/04/18 07:00 70 13 97/66 (76) 100 02/04/18 06:30 70 13 92/61 (71) 100 02/04/18 06:00 70 13 107/71 (83) 100 02/04/18 06:00 107/71 02/04/18 05:30 70 13 97/65 (76) 100 02/04/18 05:00 92/70 02/04/18 05:00 70 13 106/74 (85) 100 02/04/18 04:30 70 13 112/77 (89) 100 02/04/18 04:00 97.6 70 13 99/78 (85) 100 97.6 02/04/18 04:00 Room Air 02/04/18 04:00 99/78 02/04/18 04:00 70 02/04/18 03:30 70 13 92/62 (72) 100 02/04/18 03:00 70 13 93/62 (72) 100 02/04/18 03:00 93/62 02/04/18 02:30 70 13 93/64 (74) 100 02/04/18 02:00 70 13 95/65 (75) 100 02/04/18 01:59 84/63 02/04/18 01:30 70 13 91/60 (70) 100 02/04/18 01:00 70 13 84/63 (70) 100 02/04/18 00:30 70 13 90/62 (71) 100 02/04/18 00:00 70 02/04/18 00:00 70 13 88/61 (70) 100 02/04/18 00:00 Room Air 02/03/18 23:30 70 13 91/64 (73) 100 02/03/18 23:00 70 14 92/68 (76) 99 02/03/18 22:30 70 13 81/53 (62) 99 02/03/18 22:00 70 13 84/55 (65) 100 02/03/18 22:00 92/64 02/03/18 21:30 70 15 83/61 (68) 100 02/03/18 21:10 70 02/03/18 21:10 97.5 70 13 76/51 (59) 100 97.5 02/03/18 21:00 Room Air 02/03/18 20:00 97.5 71 16 80/46 (57) 97 97.5 02/03/18 17:48 70 106/70 02/03/18 17:47 70 106/70 02/03/18 16:00 70 02/03/18 16:00 97.5 71 18 106/72 (83) 97 97.5 02/03/18 12:00 97.0 70 18 99/70 (80) 98 97.0 02/03/18 12:00 70 Status: awake Condition: critical HEENT: atraumatic Neck: full ROM Lungs: clear Heart: HR/BP stable Abdomen: soft Extremities: no C/C/E, edema Decubiti: stage Critical Care - Subjective ROS Limited/Unobtainable: No Interval Events: transferred to ICU because of hypotension I&O: Intake and Output 02/03/18 02/04/18 19:00 07:00 Intake Total 120 ml 168.75 ml Output Total 300 ml 800 ml Balance -180 ml -631.25 ml Intake Oral 120 ml 150 ml IV Total 18.75 ml Output Urine Total 300 ml 800 ml CXR: cardiomegaly, mild edema Labs: Laboratory Tests Test 02/04/18 04:17 White Blood Count 5.0 K/UL (4.8-10.8) Red Blood Count 4.27 M/UL (4.70-6.10) L Hemoglobin 11.3 G/DL (14.2-18.0) L Hematocrit 35.7 % (42.0-52.0) L Mean Corpuscular Volume 84 FL (80-99) Mean Corpuscular Hemoglobin 26.4 PG (27.0-31.0) L Mean Corpuscular Hemoglobin Concent 31.5 G/DL (32.0-36.0) L Red Cell Distribution Width 19.2 % (11.6-14.8) H Platelet Count 198 K/UL (150-450) Mean Platelet Volume 6.5 FL (6.5-10.1) Neutrophils (%) (Auto) 77.2 % (45.0-75.0) H Lymphocytes (%) (Auto) 11.9 % (20.0-45.0) L Monocytes (%) (Auto) 8.3 % (1.0-10.0) Eosinophils (%) (Auto) 1.4 % (0.0-3.0) Basophils (%) (Auto) 1.1 % (0.0-2.0) Sodium Level 138 MMOL/L (136-145) Potassium Level 4.0 MMOL/L (3.5-5.1) Chloride Level 101 MMOL/L (98-107) Carbon Dioxide Level 32 MMOL/L (21-32) Anion Gap 5 mmol/L (5-15) Blood Urea Nitrogen 52 mg/dL (7-18) H Creatinine 2.3 MG/DL (0.55-1.30) H Estimat Glomerular Filtration Rate 34.9 mL/min (>60) Glucose Level 93 MG/DL (74-106) Hemoglobin A1c 6.9 % (4.3-6.0) H Uric Acid 13.3 MG/DL (2.6-7.2) H Calcium Level 8.1 MG/DL (8.5-10.1) L Phosphorus Level 3.9 MG/DL (2.5-4.9) Magnesium Level 2.0 MG/DL (1.8-2.4) Total Bilirubin 2.4 MG/DL (0.2-1.0) H Direct Bilirubin 1.3 MG/DL (0.0-0.3) H Gamma Glutamyl Transpeptidase 100 U/L (5-85) H Aspartate Amino Transf (AST/SGOT) 25 U/L (15-37) Alanine Aminotransferase (ALT/SGPT) 17 U/L (12-78) Alkaline Phosphatase 76 U/L (46-116) Ammonia 44 umol/L (11-32) H Total Creatine Kinase 31 U/L (26-308) Troponin I 0.028 ng/mL (0.000-0.056) Pro-B-Type Natriuretic Peptide 6729 pg/mL (0-125) H Total Protein 6.2 G/DL (6.4-8.2) L Albumin 2.8 G/DL (3.4-5.0) L Globulin 3.4 g/dL Albumin/Globulin Ratio 0.8 (1.0-2.7) L Triglycerides Level 62 MG/DL (30-150) Cholesterol Level 111 MG/DL (< 200) LDL Cholesterol 81 mg/dL (<100) HDL Cholesterol 24 MG/DL (40-60) L Cholesterol/HDL Ratio 4.6 (3.3-4.4) H Thyroid Stimulating Hormone (TSH) 14.173 uiU/mL (0.358-3.740) Cortisol AM Sample Pending Andrzej Chavarria MD Feb 04, 2018 09:54
[2018-02-04] MEDS ORDERED: DOPamine 400mg/250ml 250 ML IV SCH ×2 (10:00→16:00)
--- NOTE | 2018-02-04 10:19 | Nephrology Progress Note ---
Assessment/Plan Assessment Now in ICU for low BP Chest pain Abdominal pain Cardiomyopathy due to hypertension, with heart failure and Hypotension EF < 20% Chronic pain ARIS (acute kidney injury) due to cardiac and liver disease and low bp Hep C and Cirrhosis HypoThyroidism Cannabis abuse Plan Optimize cardiac status Dobutamin ? Midodrine Synthroid IV monitor renal parameters poor prognosis due to sever cardiac disease avoid nephrotoxics suggest re eval code status Per orders Subjective ROS Limited/Unobtainable: No Constitutional: Reports: malaise Objective Objective Last 24 Hour Vital Signs Date Time Temp Pulse Resp B/P (MAP) Pulse Ox O2 Delivery O2 Flow Rate FiO2 02/04/18 10:10 105/74 02/04/18 09:30 70 12 109/78 (88) 100 02/04/18 09:13 97.2 02/04/18 09:12 70 02/04/18 09:00 70 9 95/70 (78) 100 02/04/18 09:00 70 95/70 02/04/18 09:00 95/70 02/04/18 09:00 70 95/70 02/04/18 08:35 97.6 02/04/18 08:30 70 10 108/76 (87) 100 02/04/18 08:00 97.9 73 15 109/80 (90) 100 97.9 02/04/18 07:30 72 15 97/66 (76) 100 02/04/18 07:00 97/66 02/04/18 07:00 70 13 97/66 (76) 100 02/04/18 06:30 70 13 92/61 (71) 100 02/04/18 06:00 70 13 107/71 (83) 100 02/04/18 06:00 107/71 02/04/18 05:30 70 13 97/65 (76) 100 02/04/18 05:00 92/70 02/04/18 05:00 70 13 106/74 (85) 100 02/04/18 04:30 70 13 112/77 (89) 100 02/04/18 04:00 97.6 70 13 99/78 (85) 100 97.6 02/04/18 04:00 Room Air 02/04/18 04:00 99/78 02/04/18 04:00 70 02/04/18 03:30 70 13 92/62 (72) 100 02/04/18 03:00 70 13 93/62 (72) 100 02/04/18 03:00 93/62 02/04/18 02:30 70 13 93/64 (74) 100 02/04/18 02:00 70 13 95/65 (75) 100 02/04/18 01:59 84/63 02/04/18 01:30 70 13 91/60 (70) 100 02/04/18 01:00 70 13 84/63 (70) 100 02/04/18 00:30 70 13 90/62 (71) 100 02/04/18 00:00 70 02/04/18 00:00 70 13 88/61 (70) 100 02/04/18 00:00 Room Air 02/03/18 23:30 70 13 91/64 (73) 100 02/03/18 23:00 70 14 92/68 (76) 99 02/03/18 22:30 70 13 81/53 (62) 99 02/03/18 22:00 70 13 84/55 (65) 100 02/03/18 22:00 92/64 02/03/18 21:30 70 15 83/61 (68) 100 02/03/18 21:10 70 02/03/18 21:10 97.5 70 13 76/51 (59) 100 97.5 02/03/18 21:00 Room Air 02/03/18 20:00 97.5 71 16 80/46 (57) 97 97.5 02/03/18 17:48 70 106/70 02/03/18 17:47 70 106/70 02/03/18 16:00 70 02/03/18 16:00 97.5 71 18 106/72 (83) 97 97.5 02/03/18 12:00 97.0 70 18 99/70 (80) 98 97.0 02/03/18 12:00 70 Intake and Output 02/03/18 02/04/18 19:00 07:00 Intake Total 120 ml 168.75 ml Output Total 300 ml 800 ml Balance -180 ml -631.25 ml Intake Oral 120 ml 150 ml IV Total 18.75 ml Output Urine Total 300 ml 800 ml Laboratory Tests 02/04/18 04:17: White Blood Count 5.0, Red Blood Count 4.27L, Hemoglobin 11.3L, Hematocrit 35.7L , Mean Corpuscular Volume 84, Mean Corpuscular Hemoglobin 26.4L, Mean Corpuscular Hemoglobin Concent 31.5L, Red Cell Distribution Width 19.2H, Platelet Count 198, Mean Platelet Volume 6.5, Neutrophils (%) (Auto) 77.2H, Lymphocytes (%) (Auto) 11.9L, Monocytes (%) (Auto) 8.3, Eosinophils (%) (Auto) 1.4, Basophils (%) (Auto) 1.1, Sodium Level 138, Potassium Level 4.0, Chloride Level 101, Carbon Dioxide Level 32, Anion Gap 5, Blood Urea Nitrogen 52H, Creatinine 2.3H, Estimat Glomerular Filtration Rate 34.9, Glucose Level 93, Hemoglobin A1c 6.9H, Uric Acid 13.3H, Calcium Level 8.1L, Phosphorus Level 3.9, Magnesium Level 2.0, Total Bilirubin 2.4H, Direct Bilirubin 1.3H, Gamma Glutamyl Transpeptidase 100H, Aspartate Amino Transf (AST/SGOT) 25, Alanine Aminotransferase (ALT/SGPT) 17, Alkaline Phosphatase 76, Ammonia 44H, Total Creatine Kinase 31, Troponin I 0.028, Pro-B-Type Natriuretic Peptide 6729H, Total Protein 6.2L, Albumin 2.8L, Globulin 3.4, Albumin/Globulin Ratio 0.8L, Triglycerides Level 62, Cholesterol Level 111, LDL Cholesterol 81, HDL Cholesterol 24L, Cholesterol/HDL Ratio 4.6H, Thyroid Stimulating Hormone (TSH) 14.173H, Cortisol AM Sample [Pending] Height (Feet): 5 Height (Inches): 9.00 Weight (Pounds): 163 General Appearance: no apparent distress, lethargic Cardiovascular: normal rate Respiratory/Chest: decreased breath sounds Abdomen: distended Blaine Rojas MD Feb 04, 2018 10:19
--- NOTE | 2018-02-04 13:10 | GI Progress Note ---
Assessment/Plan Problems: (1) EF < 10% (2) Abdominal pain ICD Codes: R10.9 - Abdominal pain SNOMED: 22173377 Qualifiers: Qualified Codes: R10.84 - Generalized abdominal pain (3) Cirrhosis ICD Codes: K74.60 - Unspecified cirrhosis of liver SNOMED: 15637645 (4) Hepatitis C ICD Codes: B19.20 - Hepatitis C SNOMED: 49972917 (5) Cirrhosis ICD Codes: K74.60 - Unspecified cirrhosis of liver SNOMED: 17494308 (6) Ascites ICD Codes: R18.8 - Ascites SNOMED: 790464253 Status: stable Status Narrative Discussed with Dr. Ryan. Assessment/Plan hx of Hep C in 2014 s/p tx >> hep panel redrawn in 2016 was negative s/p colonoscopy with one polyp 06/26/16 transferred to ICU for hypotension fu cardiology recs paracentesis prn diuresis adv low sodium diet bowel regime ppi pain mgmt fu labs could benefit from outpatient fibroid scan evaluate cirrhosis repeat colonoscopy in 2021 The patient was seen and examined at bedside and all new and available data was reviewed in the patients chart. I agree with the above findings, impression and plan. (Patient seen earlier today. Signature stamp does not reflect patient encounter time.). - Beto Ryan MD Subjective Gastrointestinal/Abdominal: Reports: vomiting Objective Last 24 Hour Vital Signs Date Time Temp Pulse Resp B/P (MAP) Pulse Ox O2 Delivery O2 Flow Rate FiO2 02/04/18 12:23 97.8 02/04/18 11:30 73 10 112/82 (92) 95 02/04/18 11:00 72 12 110/82 (91) 98 02/04/18 10:30 70 8 109/76 (87) 99 02/04/18 10:12 97.9 02/04/18 10:10 105/74 02/04/18 10:00 73 8 105/74 (84) 100 02/04/18 09:30 70 12 109/78 (88) 100 02/04/18 09:13 97.2 02/04/18 09:12 70 02/04/18 09:00 70 9 95/70 (78) 100 02/04/18 09:00 70 95/70 02/04/18 09:00 95/70 02/04/18 09:00 70 95/70 02/04/18 08:35 97.6 02/04/18 08:30 70 10 108/76 (87) 100 02/04/18 08:00 Room Air 02/04/18 08:00 97.9 73 15 109/80 (90) 100 97.9 02/04/18 07:30 72 15 97/66 (76) 100 02/04/18 07:00 97/66 02/04/18 07:00 70 13 97/66 (76) 100 02/04/18 06:30 70 13 92/61 (71) 100 02/04/18 06:00 70 13 107/71 (83) 100 02/04/18 06:00 107/71 02/04/18 05:30 70 13 97/65 (76) 100 02/04/18 05:00 92/70 02/04/18 05:00 70 13 106/74 (85) 100 02/04/18 04:30 70 13 112/77 (89) 100 02/04/18 04:00 97.6 70 13 99/78 (85) 100 97.6 02/04/18 04:00 Room Air 02/04/18 04:00 99/78 02/04/18 04:00 70 02/04/18 03:30 70 13 92/62 (72) 100 02/04/18 03:00 70 13 93/62 (72) 100 02/04/18 03:00 93/62 02/04/18 02:30 70 13 93/64 (74) 100 02/04/18 02:00 70 13 95/65 (75) 100 02/04/18 01:59 84/63 02/04/18 01:30 70 13 91/60 (70) 100 02/04/18 01:00 70 13 84/63 (70) 100 02/04/18 00:30 70 13 90/62 (71) 100 02/04/18 00:00 70 02/04/18 00:00 70 13 88/61 (70) 100 02/04/18 00:00 Room Air 02/03/18 23:30 70 13 91/64 (73) 100 02/03/18 23:00 70 14 92/68 (76) 99 02/03/18 22:30 70 13 81/53 (62) 99 02/03/18 22:00 70 13 84/55 (65) 100 02/03/18 22:00 92/64 02/03/18 21:30 70 15 83/61 (68) 100 02/03/18 21:10 70 02/03/18 21:10 97.5 70 13 76/51 (59) 100 97.5 02/03/18 21:00 Room Air 02/03/18 20:00 97.5 71 16 80/46 (57) 97 97.5 02/03/18 17:48 70 106/70 02/03/18 17:47 70 106/70 02/03/18 16:00 70 02/03/18 16:00 97.5 71 18 106/72 (83) 97 97.5 Intake and Output 02/03/18 02/04/18 19:00 07:00 Intake Total 120 ml 168.75 ml Output Total 300 ml 800 ml Balance -180 ml -631.25 ml Intake Oral 120 ml 150 ml IV Total 18.75 ml Output Urine Total 300 ml 800 ml Laboratory Tests Test 02/04/18 04:17 White Blood Count 5.0 K/UL (4.8-10.8) Red Blood Count 4.27 M/UL (4.70-6.10) L Hemoglobin 11.3 G/DL (14.2-18.0) L Hematocrit 35.7 % (42.0-52.0) L Mean Corpuscular Volume 84 FL (80-99) Mean Corpuscular Hemoglobin 26.4 PG (27.0-31.0) L Mean Corpuscular Hemoglobin Concent 31.5 G/DL (32.0-36.0) L Red Cell Distribution Width 19.2 % (11.6-14.8) H Platelet Count 198 K/UL (150-450) Mean Platelet Volume 6.5 FL (6.5-10.1) Neutrophils (%) (Auto) 77.2 % (45.0-75.0) H Lymphocytes (%) (Auto) 11.9 % (20.0-45.0) L Monocytes (%) (Auto) 8.3 % (1.0-10.0) Eosinophils (%) (Auto) 1.4 % (0.0-3.0) Basophils (%) (Auto) 1.1 % (0.0-2.0) Sodium Level 138 MMOL/L (136-145) Potassium Level 4.0 MMOL/L (3.5-5.1) Chloride Level 101 MMOL/L (98-107) Carbon Dioxide Level 32 MMOL/L (21-32) Anion Gap 5 mmol/L (5-15) Blood Urea Nitrogen 52 mg/dL (7-18) H Creatinine 2.3 MG/DL (0.55-1.30) H Estimat Glomerular Filtration Rate 34.9 mL/min (>60) Glucose Level 93 MG/DL (74-106) Hemoglobin A1c 6.9 % (4.3-6.0) H Uric Acid 13.3 MG/DL (2.6-7.2) H Calcium Level 8.1 MG/DL (8.5-10.1) L Phosphorus Level 3.9 MG/DL (2.5-4.9) Magnesium Level 2.0 MG/DL (1.8-2.4) Total Bilirubin 2.4 MG/DL (0.2-1.0) H Direct Bilirubin 1.3 MG/DL (0.0-0.3) H Gamma Glutamyl Transpeptidase 100 U/L (5-85) H Aspartate Amino Transf (AST/SGOT) 25 U/L (15-37) Alanine Aminotransferase (ALT/SGPT) 17 U/L (12-78) Alkaline Phosphatase 76 U/L (46-116) Ammonia 44 umol/L (11-32) H Total Creatine Kinase 31 U/L (26-308) Troponin I 0.028 ng/mL (0.000-0.056) Pro-B-Type Natriuretic Peptide 6729 pg/mL (0-125) H Total Protein 6.2 G/DL (6.4-8.2) L Albumin 2.8 G/DL (3.4-5.0) L Globulin 3.4 g/dL Albumin/Globulin Ratio 0.8 (1.0-2.7) L Triglycerides Level 62 MG/DL (30-150) Cholesterol Level 111 MG/DL (< 200) LDL Cholesterol 81 mg/dL (<100) HDL Cholesterol 24 MG/DL (40-60) L Cholesterol/HDL Ratio 4.6 (3.3-4.4) H Thyroid Stimulating Hormone (TSH) 14.173 uiU/mL (0.358-3.740) Cortisol AM Sample 8.2 UG/DL Height (Feet): 5 Height (Inches): 9.00 Weight (Pounds): 163 General Appearance: WD/WN, no apparent distress, alert Cardiovascular: normal rate Respiratory/Chest: normal breath sounds, no respiratory distress Abdominal Exam: normal bowel sounds, non tender, soft Extremities: normal range of motion, non-tender Kiarra Bird NP Feb 04, 2018 13:10
--- NOTE | 2018-02-04 15:51 | General Progress Note ---
Assessment/Plan Problem List: (1) Lumbar spondylosis ICD Codes: M47.816 - Spondylosis without myelopathy or radiculopathy, lumbar region SNOMED: 898554826 (2) Cirrhosis ICD Codes: K74.60 - Unspecified cirrhosis of liver SNOMED: 84522251 (3) Hypothyroidism ICD Codes: E03.9 - Hypothyroidism SNOMED: 41785821 (4) Pain ICD Codes: R52 - Pain SNOMED: 55652098 (5) Blood pressure instability ICD Codes: I99.8 - Other disorder of circulatory system SNOMED: 29451836 (6) Ascites ICD Codes: R18.8 - Ascites SNOMED: 597733905 (7) Cirrhosis ICD Codes: K74.60 - Unspecified cirrhosis of liver SNOMED: 98352694 (8) Right-sided heart failure ICD Codes: I50.9 - Right-sided heart failure SNOMED: 360190669 (9) ICD (implantable cardioverter-defibrillator) in place ICD Codes: Z95.810 - Presence of automatic (implantable) cardiac defibrillator SNOMED: 367521816, 461012429 (10) EF < 20% (11) Lumbar radiculopathy ICD Codes: M54.16 - Lumbar radiculopathy SNOMED: 438315196 Status: progressing Assessment/Plan was transfered to icu chronic pain cirrhosis noncompliant afebrile reveiwed chart and labs Subjective ROS Limited/Unobtainable: Yes Allergies: Coded Allergies: HYDROMORPHONE (Verified Allergy, Unknown, 12/28/10) Objective Last 24 Hour Vital Signs Date Time Temp Pulse Resp B/P (MAP) Pulse Ox O2 Delivery O2 Flow Rate FiO2 02/04/18 14:30 71 15 112/83 (93) 94 02/04/18 14:00 74 17 115/88 (97) 94 02/04/18 14:00 115/88 02/04/18 13:30 71 15 112/86 (95) 91 02/04/18 13:22 97.8 02/04/18 13:00 110/80 02/04/18 13:00 71 15 110/80 (90) 90 02/04/18 12:30 73 10 112/82 (92) 97 02/04/18 12:23 97.8 02/04/18 12:00 69 02/04/18 12:00 125/77 02/04/18 12:00 Room Air 02/04/18 12:00 97.8 71 15 125/77 (93) 97 97.8 02/04/18 11:30 73 10 112/82 (92) 95 02/04/18 11:00 72 12 110/82 (91) 98 02/04/18 11:00 110/82 02/04/18 10:30 70 8 109/76 (87) 99 02/04/18 10:10 105/74 02/04/18 10:00 73 8 105/74 (84) 100 02/04/18 09:48 109/78 02/04/18 09:30 70 12 109/78 (88) 100 02/04/18 09:13 97.2 02/04/18 09:12 70 02/04/18 09:00 70 9 95/70 (78) 100 02/04/18 09:00 95/70 02/04/18 09:00 70 95/70 02/04/18 09:00 95/70 02/04/18 09:00 70 95/70 02/04/18 08:35 97.6 02/04/18 08:30 70 10 108/76 (87) 100 02/04/18 08:00 73 02/04/18 08:00 Room Air 02/04/18 08:00 97.9 73 15 109/80 (90) 100 97.9 02/04/18 08:00 109/80 02/04/18 07:30 72 15 97/66 (76) 100 02/04/18 07:00 97/66 02/04/18 07:00 70 13 97/66 (76) 100 02/04/18 06:30 70 13 92/61 (71) 100 02/04/18 06:00 70 13 107/71 (83) 100 02/04/18 06:00 107/71 02/04/18 05:30 70 13 97/65 (76) 100 02/04/18 05:00 92/70 02/04/18 05:00 70 13 106/74 (85) 100 02/04/18 04:30 70 13 112/77 (89) 100 02/04/18 04:00 97.6 70 13 99/78 (85) 100 97.6 02/04/18 04:00 Room Air 02/04/18 04:00 99/78 02/04/18 04:00 70 02/04/18 03:30 70 13 92/62 (72) 100 02/04/18 03:00 70 13 93/62 (72) 100 02/04/18 03:00 93/62 02/04/18 02:30 70 13 93/64 (74) 100 02/04/18 02:00 70 13 95/65 (75) 100 02/04/18 01:59 84/63 02/04/18 01:30 70 13 91/60 (70) 100 02/04/18 01:00 70 13 84/63 (70) 100 02/04/18 00:30 70 13 90/62 (71) 100 02/04/18 00:00 70 02/04/18 00:00 70 13 88/61 (70) 100 02/04/18 00:00 Room Air 02/03/18 23:30 70 13 91/64 (73) 100 02/03/18 23:00 70 14 92/68 (76) 99 02/03/18 22:30 70 13 81/53 (62) 99 02/03/18 22:00 70 13 84/55 (65) 100 02/03/18 22:00 92/64 02/03/18 21:30 70 15 83/61 (68) 100 02/03/18 21:10 70 02/03/18 21:10 97.5 70 13 76/51 (59) 100 97.5 02/03/18 21:00 Room Air 02/03/18 20:00 97.5 71 16 80/46 (57) 97 97.5 02/03/18 17:48 70 106/70 02/03/18 17:47 70 106/70 02/03/18 16:00 70 02/03/18 16:00 97.5 71 18 106/72 (83) 97 97.5 Intake and Output 02/03/18 02/04/18 19:00 07:00 Intake Total 120 ml 168.75 ml Output Total 300 ml 800 ml Balance -180 ml -631.25 ml Intake Oral 120 ml 150 ml IV Total 18.75 ml Output Urine Total 300 ml 800 ml Laboratory Tests 02/04/18 04:17: White Blood Count 5.0, Red Blood Count 4.27L, Hemoglobin 11.3L, Hematocrit 35.7L , Mean Corpuscular Volume 84, Mean Corpuscular Hemoglobin 26.4L, Mean Corpuscular Hemoglobin Concent 31.5L, Red Cell Distribution Width 19.2H, Platelet Count 198, Mean Platelet Volume 6.5, Neutrophils (%) (Auto) 77.2H, Lymphocytes (%) (Auto) 11.9L, Monocytes (%) (Auto) 8.3, Eosinophils (%) (Auto) 1.4, Basophils (%) (Auto) 1.1, Sodium Level 138, Potassium Level 4.0, Chloride Level 101, Carbon Dioxide Level 32, Anion Gap 5, Blood Urea Nitrogen 52H, Creatinine 2.3H, Estimat Glomerular Filtration Rate 34.9, Glucose Level 93, Hemoglobin A1c 6.9H, Uric Acid 13.3H, Calcium Level 8.1L, Phosphorus Level 3.9, Magnesium Level 2.0, Total Bilirubin 2.4H, Direct Bilirubin 1.3H, Gamma Glutamyl Transpeptidase 100H, Aspartate Amino Transf (AST/SGOT) 25, Alanine Aminotransferase (ALT/SGPT) 17, Alkaline Phosphatase 76, Ammonia 44H, Total Creatine Kinase 31, Troponin I 0.028, Pro-B-Type Natriuretic Peptide 6729H, Total Protein 6.2L, Albumin 2.8L, Globulin 3.4, Albumin/Globulin Ratio 0.8L, Triglycerides Level 62, Cholesterol Level 111, LDL Cholesterol 81, HDL Cholesterol 24L, Cholesterol/HDL Ratio 4.6H, Thyroid Stimulating Hormone (TSH) 14.173H, Cortisol AM Sample 8.2 Height (Feet): 5 Height (Inches): 9.00 Weight (Pounds): 163 General Appearance: confused Respiratory/Chest: lungs clear Winston Jin MD Feb 04, 2018 15:51
--- NOTE | 2018-02-04 16:03 | Cardiac Electrophysiology PN ---
Subjective Subjective EP consult dictated. My office patient. Plse see my note from earlier this month as well.[id number] Objective Last 24 Hour Vital Signs Date Time Temp Pulse Resp B/P (MAP) Pulse Ox O2 Delivery O2 Flow Rate FiO2 02/04/18 14:30 71 15 112/83 (93) 94 02/04/18 14:00 74 17 115/88 (97) 94 02/04/18 14:00 115/88 02/04/18 13:30 71 15 112/86 (95) 91 02/04/18 13:22 97.8 02/04/18 13:00 110/80 02/04/18 13:00 71 15 110/80 (90) 90 02/04/18 12:30 73 10 112/82 (92) 97 02/04/18 12:23 97.8 02/04/18 12:00 69 02/04/18 12:00 125/77 02/04/18 12:00 Room Air 02/04/18 12:00 97.8 71 15 125/77 (93) 97 97.8 02/04/18 11:30 73 10 112/82 (92) 95 02/04/18 11:00 72 12 110/82 (91) 98 02/04/18 11:00 110/82 02/04/18 10:30 70 8 109/76 (87) 99 02/04/18 10:10 105/74 02/04/18 10:00 73 8 105/74 (84) 100 02/04/18 09:48 109/78 02/04/18 09:30 70 12 109/78 (88) 100 02/04/18 09:13 97.2 02/04/18 09:12 70 02/04/18 09:00 70 9 95/70 (78) 100 02/04/18 09:00 95/70 02/04/18 09:00 70 95/70 02/04/18 09:00 95/70 02/04/18 09:00 70 95/70 02/04/18 08:35 97.6 02/04/18 08:30 70 10 108/76 (87) 100 02/04/18 08:00 73 02/04/18 08:00 Room Air 02/04/18 08:00 97.9 73 15 109/80 (90) 100 97.9 02/04/18 08:00 109/80 02/04/18 07:30 72 15 97/66 (76) 100 02/04/18 07:00 97/66 02/04/18 07:00 70 13 97/66 (76) 100 02/04/18 06:30 70 13 92/61 (71) 100 02/04/18 06:00 70 13 107/71 (83) 100 02/04/18 06:00 107/71 02/04/18 05:30 70 13 97/65 (76) 100 02/04/18 05:00 92/70 02/04/18 05:00 70 13 106/74 (85) 100 02/04/18 04:30 70 13 112/77 (89) 100 02/04/18 04:00 97.6 70 13 99/78 (85) 100 97.6 02/04/18 04:00 Room Air 02/04/18 04:00 99/78 02/04/18 04:00 70 02/04/18 03:30 70 13 92/62 (72) 100 02/04/18 03:00 70 13 93/62 (72) 100 02/04/18 03:00 93/62 02/04/18 02:30 70 13 93/64 (74) 100 02/04/18 02:00 70 13 95/65 (75) 100 02/04/18 01:59 84/63 02/04/18 01:30 70 13 91/60 (70) 100 02/04/18 01:00 70 13 84/63 (70) 100 02/04/18 00:30 70 13 90/62 (71) 100 02/04/18 00:00 70 02/04/18 00:00 70 13 88/61 (70) 100 02/04/18 00:00 Room Air 02/03/18 23:30 70 13 91/64 (73) 100 02/03/18 23:00 70 14 92/68 (76) 99 02/03/18 22:30 70 13 81/53 (62) 99 02/03/18 22:00 70 13 84/55 (65) 100 02/03/18 22:00 92/64 02/03/18 21:30 70 15 83/61 (68) 100 02/03/18 21:10 70 02/03/18 21:10 97.5 70 13 76/51 (59) 100 97.5 02/03/18 21:00 Room Air 02/03/18 20:00 97.5 71 16 80/46 (57) 97 97.5 02/03/18 17:48 70 106/70 02/03/18 17:47 70 106/70 Intake and Output 02/03/18 02/04/18 19:00 07:00 Intake Total 120 ml 168.75 ml Output Total 300 ml 800 ml Balance -180 ml -631.25 ml Intake Oral 120 ml 150 ml IV Total 18.75 ml Output Urine Total 300 ml 800 ml Laboratory Tests Test 02/04/18 04:17 White Blood Count 5.0 K/UL (4.8-10.8) Red Blood Count 4.27 M/UL (4.70-6.10) L Hemoglobin 11.3 G/DL (14.2-18.0) L Hematocrit 35.7 % (42.0-52.0) L Mean Corpuscular Volume 84 FL (80-99) Mean Corpuscular Hemoglobin 26.4 PG (27.0-31.0) L Mean Corpuscular Hemoglobin Concent 31.5 G/DL (32.0-36.0) L Red Cell Distribution Width 19.2 % (11.6-14.8) H Platelet Count 198 K/UL (150-450) Mean Platelet Volume 6.5 FL (6.5-10.1) Neutrophils (%) (Auto) 77.2 % (45.0-75.0) H Lymphocytes (%) (Auto) 11.9 % (20.0-45.0) L Monocytes (%) (Auto) 8.3 % (1.0-10.0) Eosinophils (%) (Auto) 1.4 % (0.0-3.0) Basophils (%) (Auto) 1.1 % (0.0-2.0) Sodium Level 138 MMOL/L (136-145) Potassium Level 4.0 MMOL/L (3.5-5.1) Chloride Level 101 MMOL/L (98-107) Carbon Dioxide Level 32 MMOL/L (21-32) Anion Gap 5 mmol/L (5-15) Blood Urea Nitrogen 52 mg/dL (7-18) H Creatinine 2.3 MG/DL (0.55-1.30) H Estimat Glomerular Filtration Rate 34.9 mL/min (>60) Glucose Level 93 MG/DL (74-106) Hemoglobin A1c 6.9 % (4.3-6.0) H Uric Acid 13.3 MG/DL (2.6-7.2) H Calcium Level 8.1 MG/DL (8.5-10.1) L Phosphorus Level 3.9 MG/DL (2.5-4.9) Magnesium Level 2.0 MG/DL (1.8-2.4) Total Bilirubin 2.4 MG/DL (0.2-1.0) H Direct Bilirubin 1.3 MG/DL (0.0-0.3) H Gamma Glutamyl Transpeptidase 100 U/L (5-85) H Aspartate Amino Transf (AST/SGOT) 25 U/L (15-37) Alanine Aminotransferase (ALT/SGPT) 17 U/L (12-78) Alkaline Phosphatase 76 U/L (46-116) Ammonia 44 umol/L (11-32) H Total Creatine Kinase 31 U/L (26-308) Troponin I 0.028 ng/mL (0.000-0.056) Pro-B-Type Natriuretic Peptide 6729 pg/mL (0-125) H Total Protein 6.2 G/DL (6.4-8.2) L Albumin 2.8 G/DL (3.4-5.0) L Globulin 3.4 g/dL Albumin/Globulin Ratio 0.8 (1.0-2.7) L Triglycerides Level 62 MG/DL (30-150) Cholesterol Level 111 MG/DL (< 200) LDL Cholesterol 81 mg/dL (<100) HDL Cholesterol 24 MG/DL (40-60) L Cholesterol/HDL Ratio 4.6 (3.3-4.4) H Thyroid Stimulating Hormone (TSH) 14.173 uiU/mL (0.358-3.740) Cortisol AM Sample 8.2 UG/DL Rc Zhang MD Feb 04, 2018 16:03
[2018-02-04] MEDS: DOPamine 400mg/250ml 250 ML IV SCH (16:26)
[2018-02-04] MEDS: Midodrine 10mg tab ORAL SCH (16:59)
[2018-02-04] MEDS ORDERED: DOBUTamine 250mg/250ml Premix 250 ML IV SCH (17:00)
[2018-02-04] MEDS: Morphine Sulfate 4mg/ml Inj (IV USE ONLY) IVP PRN ×2 (18:23→22:54)
[2018-02-04] MEDS ORDERED: Dyna-Hex 2% Top Sol 2oz TOPIC SCH ×3 (20:00)
[2018-02-04] MEDS: Dyna-Hex 2% Top Sol 2oz TOPIC SCH (21:30)
--- NOTE | 2018-02-04 23:50 | Cardiology Progress Note ---
Assessment/Plan Assessment/Plan 1. Hypotension, most likely due to hypovolemia secondary to hypoalbuminemia, responded well to albumin admin and 250 cc NS IV bolus, currently on levophed gtt 1.5mcg, taper off Levo. 2. Chronic systolic CHF, all heart failure meds on hold due to hypotension. 3. Persistent atrial fibrillation, hx of RFA, on Xarelto. May require cardioversion for best synchronization in face of RAMP LEAD. 4. s/p upgrade of PPM to RAMP LEAD/D 5. Liver cirrhosis with portal HTN 6. HCV Subjective Subjective Atrial fibrillation at 71 with occasional VPC. Objective Last 24 Hour Vital Signs Date Time Temp Pulse Resp B/P (MAP) Pulse Ox O2 Delivery O2 Flow Rate FiO2 02/04/18 20:00 97.8 70 16 113/77 (89) 95 97.8 02/04/18 20:00 Room Air 02/04/18 20:00 113/77 02/04/18 19:04 70 02/04/18 18:53 97.2 02/04/18 18:23 97.2 02/04/18 18:08 97.2 02/04/18 17:09 97.2 02/04/18 17:00 114/85 02/04/18 16:26 114/85 02/04/18 16:12 114/85 02/04/18 16:00 71 02/04/18 16:00 97.2 70 15 114/85 (95) 100 97.2 02/04/18 16:00 Room Air 02/04/18 14:30 71 15 112/83 (93) 94 02/04/18 14:00 74 17 115/88 (97) 94 02/04/18 14:00 115/88 02/04/18 13:30 71 15 112/86 (95) 91 02/04/18 13:22 97.8 02/04/18 13:00 110/80 02/04/18 13:00 71 15 110/80 (90) 90 02/04/18 12:30 73 10 112/82 (92) 97 02/04/18 12:23 97.8 02/04/18 12:00 69 02/04/18 12:00 125/77 02/04/18 12:00 Room Air 02/04/18 12:00 97.8 71 15 125/77 (93) 97 97.8 8/22/18 11:30 73 10 112/82 (92) 95 02/04/18 11:00 72 12 110/82 (91) 98 02/04/18 11:00 110/82 02/04/18 10:30 70 8 109/76 (87) 99 02/04/18 10:10 105/74 02/04/18 10:00 73 8 105/74 (84) 100 02/04/18 09:48 109/78 02/04/18 09:30 70 12 109/78 (88) 100 02/04/18 09:13 97.2 02/04/18 09:12 70 02/04/18 09:00 70 9 95/70 (78) 100 02/04/18 09:00 95/70 02/04/18 09:00 70 95/70 02/04/18 09:00 95/70 02/04/18 09:00 70 95/70 02/04/18 08:35 97.6 02/04/18 08:30 70 10 108/76 (87) 100 02/04/18 08:00 73 02/04/18 08:00 Room Air 02/04/18 08:00 97.9 73 15 109/80 (90) 100 97.9 02/04/18 08:00 109/80 02/04/18 07:30 72 15 97/66 (76) 100 02/04/18 07:00 97/66 02/04/18 07:00 70 13 97/66 (76) 100 02/04/18 06:30 70 13 92/61 (71) 100 02/04/18 06:00 70 13 107/71 (83) 100 02/04/18 06:00 107/71 02/04/18 05:30 70 13 97/65 (76) 100 02/04/18 05:00 92/70 02/04/18 05:00 70 13 106/74 (85) 100 02/04/18 04:30 70 13 112/77 (89) 100 02/04/18 04:00 97.6 70 13 99/78 (85) 100 97.6 02/04/18 04:00 Room Air 02/04/18 04:00 99/78 02/04/18 04:00 70 8/22/18 03:30 70 13 92/62 (72) 100 02/04/18 03:00 70 13 93/62 (72) 100 02/04/18 03:00 93/62 02/04/18 02:30 70 13 93/64 (74) 100 02/04/18 02:00 70 13 95/65 (75) 100 02/04/18 01:59 84/63 02/04/18 01:30 70 13 91/60 (70) 100 02/04/18 01:00 70 13 84/63 (70) 100 02/04/18 00:30 70 13 90/62 (71) 100 02/04/18 00:00 70 02/04/18 00:00 70 13 88/61 (70) 100 02/04/18 00:00 Room Air Intake and Output 02/03/18 02/04/18 19:00 07:00 Intake Total 120 ml 168.75 ml Output Total 300 ml 800 ml Balance -180 ml -631.25 ml Intake Oral 120 ml 150 ml IV Total 18.75 ml Output Urine Total 300 ml 800 ml 2D Echo: Four Chamber DCM, EF 20%, RAP 20 mmHg, RVSP 90 mmHg, Mod MR Laboratory Tests Test 02/04/18 04:17 White Blood Count 5.0 K/UL (4.8-10.8) Red Blood Count 4.27 M/UL (4.70-6.10) L Hemoglobin 11.3 G/DL (14.2-18.0) L Hematocrit 35.7 % (42.0-52.0) L Mean Corpuscular Volume 84 FL (80-99) Mean Corpuscular Hemoglobin 26.4 PG (27.0-31.0) L Mean Corpuscular Hemoglobin Concent 31.5 G/DL (32.0-36.0) L Red Cell Distribution Width 19.2 % (11.6-14.8) H Platelet Count 198 K/UL (150-450) Mean Platelet Volume 6.5 FL (6.5-10.1) Neutrophils (%) (Auto) 77.2 % (45.0-75.0) H Lymphocytes (%) (Auto) 11.9 % (20.0-45.0) L Monocytes (%) (Auto) 8.3 % (1.0-10.0) Eosinophils (%) (Auto) 1.4 % (0.0-3.0) Basophils (%) (Auto) 1.1 % (0.0-2.0) Sodium Level 138 MMOL/L (136-145) Potassium Level 4.0 MMOL/L (3.5-5.1) Chloride Level 101 MMOL/L (98-107) Carbon Dioxide Level 32 MMOL/L (21-32) Anion Gap 5 mmol/L (5-15) Blood Urea Nitrogen 52 mg/dL (7-18) H Creatinine 2.3 MG/DL (0.55-1.30) H Estimat Glomerular Filtration Rate 34.9 mL/min (>60) Glucose Level 93 MG/DL (74-106) Hemoglobin A1c 6.9 % (4.3-6.0) H Uric Acid 13.3 MG/DL (2.6-7.2) H Calcium Level 8.1 MG/DL (8.5-10.1) L Phosphorus Level 3.9 MG/DL (2.5-4.9) Magnesium Level 2.0 MG/DL (1.8-2.4) Total Bilirubin 2.4 MG/DL (0.2-1.0) H Direct Bilirubin 1.3 MG/DL (0.0-0.3) H Gamma Glutamyl Transpeptidase 100 U/L (5-85) H Aspartate Amino Transf (AST/SGOT) 25 U/L (15-37) Alanine Aminotransferase (ALT/SGPT) 17 U/L (12-78) Alkaline Phosphatase 76 U/L (46-116) Ammonia 44 umol/L (11-32) H Total Creatine Kinase 31 U/L (26-308) Troponin I 0.028 ng/mL (0.000-0.056) Pro-B-Type Natriuretic Peptide 6729 pg/mL (0-125) H Total Protein 6.2 G/DL (6.4-8.2) L Albumin 2.8 G/DL (3.4-5.0) L Globulin 3.4 g/dL Albumin/Globulin Ratio 0.8 (1.0-2.7) L Triglycerides Level 62 MG/DL (30-150) Cholesterol Level 111 MG/DL (< 200) LDL Cholesterol 81 mg/dL (<100) HDL Cholesterol 24 MG/DL (40-60) L Cholesterol/HDL Ratio 4.6 (3.3-4.4) H Thyroid Stimulating Hormone (TSH) 14.173 uiU/mL (0.358-3.740) Cortisol AM Sample 8.2 UG/DL Objective GENERAL: Alert and oriented, NAD, on Levophed gtt at 1.5 mcg HEENT: Atraumatic and normocephalic. Anicteric. Pupils are equal, round, and reactive to light and accommodation. Extraocular muscles intact. NECK: JVP >15cm. No carotid bruits. CARDIOVASCULAR: Normal S1, S2. Irregular rate and rhythm. 2/6 MSM, no gallops or rubs. LUNGS: Clear to auscultation bilaterally. ABDOMEN: Soft, nontender, and nondistended. No hepatosplenomegaly. Positive bowel sounds. EXTREMITIES: No evidence of edema, clubbing, or cyanosis. Rc Flower MD Feb 04, 2018 23:50
[2018-02-05] VITALS: BP 87/59
[2018-02-05] MEDS: Midodrine 10mg tab ORAL SCH ×3 (00:34→17:46)
[2018-02-05] MEDS ORDERED: Bisacodyl EC 5mg tab ORAL PRN ×3 (00:45→09:00)
--- NOTE | 2018-02-05 01:15 | Consultation ---
DATE OF CONSULTATION: 02/04/2018 CARDIAC ELECTROPHYSIOLOGY CONSULTATION CONSULTING PHYSICIAN: Rc Zhang M.D. REFERRING PHYSICIAN: Winston Jin M.D. REASON FOR CONSULTATION: Management of the patient's defibrillator. HISTORY OF PRESENT ILLNESS: The patient is a 62-year-old gentleman under my Cardiology and Electrophysiology care with history of hypertension and severe cardiomyopathy with ejection fraction of about 10%, paroxysmal atrial fibrillation with two prior ablations at [facility]. The patient also has a history of [employer] defibrillator implantation with dislodgement of right ventricular lead and status post new right ventricular lead that was upgraded to biventricular defibrillator by me on 10/08/2017 at [facility]. The patient has had multiple admissions recently in view of worsening of his heart failure and presents again with increasing shortness of breath and abdominal pain. Cardiac electrophysiology consultation was obtained for management of atrial fibrillation and defibrillator. PAST MEDICAL HISTORY: As mentioned above. FAMILY HISTORY: Noncontributory. SOCIAL HISTORY: He does not smoke or drink alcohol. REVIEW OF SYSTEMS: Negative other than what was mentioned in the history of present illness. PHYSICAL EXAMINATION: VITAL SIGNS: Blood pressure is 112/83, pulse 71, respirations 15, and temperature 97.8. HEAD AND NECK: Positive JVD. LUNGS: Shows coarse rhonchi. CARDIOVASCULAR: Shows regular S1 and S2 with no murmur or gallop. Defibrillator is in the left subclavian. ABDOMEN: Soft, no ascites. EXTREMITIES: A 1+ pitting edema. LABORATORY DATA: His labs show white count of 5, hemoglobin 11.2, hematocrit 35.7, and platelet count was 198,000. Sodium 138, potassium 4.0, BUN of 52, and creatinine of 2.3. His BNP is 6729. ASSESSMENT AND PLAN: 1. Status post [employer] [place] upgraded to biventricular defibrillator by me in September 2017. The patient also has a new right ventricular lead. The patient is 100% V-paced. We will interrogate device again for further evaluation. 2. Paroxysmal atrial fibrillation, status post one cardiac ablation and one radiofrequency ablation by me at [facility]. The patient is already on Xarelto, Coreg, and digoxin. We will check a digoxin level in the morning. 3. History of congestive heart failure. The patient is on Coreg, Aldactone, and Lasix. The patient is also on lisinopril. In view of renal failure, the patient may benefit from changing MARINA inhibitor to hydralazine and nitrate. Dr. Rojas is on the case. Thank you very much for allowing me to participate in the care of this patient. Please do not hesitate to contact me for any questions regarding my evaluation. Rc Zhang M.D. DR: SUSIE JOB#: [id number] CC:
[2018-02-05 04:00] VITALS: BP 110/74
[2018-02-05 04:52] LABS: EOSINOPHILS % (AUTO) 2.1 % (0.0-3.0); HEMOGLOBIN 12.1 G/DL (14.2-18.0); LYMPHOCYTES % (AUTO) 14.7 % (20.0-45.0); MEAN CORPUSCULAR VOLUME 84 FL (80-99); MONOCYTES % (AUTO) 12.6 % (1.0-10.0); NEUTROPHILS % (AUTO) 69.7 % (45.0-75.0); PLATELET COUNT 210 K/UL (150-450); RED BLOOD COUNT 4.79 M/UL (4.70-6.10); RED CELL DISTRIBUTION WIDTH 19.4 % (11.6-14.8); WHITE BLOOD COUNT 4.2 K/UL (4.8-10.8)
[2018-02-05] MEDS ORDERED: DOBUTamine 250mg/250ml Premix 250 ML IV SCH (05:00)
[2018-02-05 05:08] LABS: CREATINE KINASE 28 U/L (26-308)
[2018-02-05 05:13] LABS: ALANINE AMINOTRANSFERASE 17 U/L (12-78); ALBUMIN/GLOBULIN RATIO 0.7 (1.0-2.7); ALKALINE PHOSPHATASE 95 U/L (46-116); ANION GAP 8 mmol/L (5-15); ASPARTATE AMINO TRANSFERASE 23 U/L (15-37); BILIRUBIN,TOTAL 2.1 MG/DL (0.2-1.0); BLOOD UREA NITROGEN 38 mg/dL (7-18); CALCIUM 8.5 MG/DL (8.5-10.1); CARBON DIOXIDE 30 MMOL/L (21-32); CHLORIDE 100 MMOL/L (98-107); CREATININE 1.7 MG/DL (0.55-1.30); POTASSIUM 3.5 MMOL/L (3.5-5.1); SODIUM 138 MMOL/L (136-145)
[2018-02-05 05:51] LABS: BILIRUBIN,DIRECT 1.1 MG/DL (0.0-0.3)
[2018-02-05] MEDS: Morphine Sulfate 4mg/ml Inj (IV USE ONLY) IVP PRN ×3 (06:18→23:45)
[2018-02-05 08:00] VITALS: BP 104/68
[2018-02-05] MEDS: Xarelto 15mg tab ORAL SCH (08:59)
[2018-02-05] MEDS: Spironolactone 25mg tab ORAL SCH (08:59)
[2018-02-05] MEDS: Digoxin 0.125mg tab ORAL SCH (08:59)
[2018-02-05] MEDS ORDERED: Digoxin 0.125mg tab ORAL SCH ×2 (09:00)
[2018-02-05] MEDS ORDERED: Xarelto 15mg tab ORAL SCH ×2 (09:00)
[2018-02-05] MEDS ORDERED: Spironolactone 25mg tab ORAL SCH ×2 (09:00)
[2018-02-05] MEDS ORDERED: Lisinopril 2.5mg tab ORAL SCH ×3 (09:00)
[2018-02-05] MEDS ORDERED: DOPamine 400mg/250ml 250 ML IV SCH ×3 (10:00)
[2018-02-05] MEDS: DOBUTamine 250mg/250ml Premix 250 ML IV SCH ×2 (10:09→18:33)
--- NOTE | 2018-02-05 10:39 | Cardiac Electrophysiology PN ---
Assessment/Plan Assessment/Plan 1. Status post [facility] upgraded to biventricular defibrillator by me in September 2017. ( BIV device. No LV lead. Awaiting Pericardial lead placement when stable) The patient also has a new right ventricular lead as the old lead was broken. The patient is 100% V-paced. We will interrogate device again for further evaluation. 2. Paroxysmal atrial fibrillation, status post one cardiac ablation and one radiofrequency ablation by me at [facility]. The patient is already on Xarelto and digoxin. Digoxin level in the morning. 3. Congestive heart failure. On Dopamine and Dobutamine.Change Lasix to 40 iv bid. Resume Coreg after off Dobutamine Subjective Subjective Feeling better on Dobutamine and Dopamine Objective Last 24 Hour Vital Signs Date Time Temp Pulse Resp B/P (MAP) Pulse Ox O2 Delivery O2 Flow Rate FiO2 02/05/18 09:57 97.5 02/05/18 08:59 69 02/05/18 08:58 97.5 02/05/18 08:00 Room Air 02/05/18 08:00 70 02/05/18 08:00 97.5 69 18 104/68 (80) 99 97.5 02/05/18 05:03 87/59 02/05/18 04:14 70 02/05/18 04:00 97.2 69 20 110/74 (86) 97 97.2 02/05/18 04:00 Room Air 02/05/18 00:00 Room Air 02/05/18 00:00 97.0 71 20 87/59 (68) 96 97.0 02/04/18 23:54 70 02/04/18 20:00 97.8 70 16 113/77 (89) 95 97.8 02/04/18 20:00 Room Air 02/04/18 20:00 113/77 02/04/18 19:04 70 02/04/18 18:53 97.2 02/04/18 18:23 97.2 02/04/18 17:09 97.2 02/04/18 17:00 114/85 02/04/18 16:26 114/85 02/04/18 16:12 114/85 02/04/18 16:00 71 02/04/18 16:00 97.2 70 15 114/85 (95) 100 97.2 02/04/18 16:00 Room Air 02/04/18 14:30 71 15 112/83 (93) 94 02/04/18 14:00 74 17 115/88 (97) 94 02/04/18 14:00 115/88 02/04/18 13:30 71 15 112/86 (95) 91 02/04/18 13:22 97.8 02/04/18 13:00 110/80 02/04/18 13:00 71 15 110/80 (90) 90 02/04/18 12:30 73 10 112/82 (92) 97 02/04/18 12:23 97.8 02/04/18 12:00 69 02/04/18 12:00 125/77 02/04/18 12:00 Room Air 02/04/18 12:00 97.8 71 15 125/77 (93) 97 97.8 02/04/18 11:30 73 10 112/82 (92) 95 02/04/18 11:00 72 12 110/82 (91) 98 02/04/18 11:00 110/82 Intake and Output 02/04/18 02/05/18 19:00 07:00 Intake Total 1101.21379 ml 554.986 ml Output Total 1000 ml 500 ml Balance 101.46906 ml 54.986 ml Intake Oral 1000 ml 250 ml IV Total 101.59960 ml 304.986 ml Output Urine Total 775 ml 500 ml Emesis 225 ml # Voids 2 Laboratory Tests Test 02/05/18 04:05 White Blood Count 4.2 K/UL (4.8-10.8) L Red Blood Count 4.79 M/UL (4.70-6.10) Hemoglobin 12.1 G/DL (14.2-18.0) L Hematocrit 40.0 % (42.0-52.0) L Mean Corpuscular Volume 84 FL (80-99) Mean Corpuscular Hemoglobin 25.2 PG (27.0-31.0) L Mean Corpuscular Hemoglobin Concent 30.2 G/DL (32.0-36.0) L Red Cell Distribution Width 19.4 % (11.6-14.8) H Platelet Count 210 K/UL (150-450) Mean Platelet Volume 5.7 FL (6.5-10.1) L Neutrophils (%) (Auto) 69.7 % (45.0-75.0) Lymphocytes (%) (Auto) 14.7 % (20.0-45.0) L Monocytes (%) (Auto) 12.6 % (1.0-10.0) H Eosinophils (%) (Auto) 2.1 % (0.0-3.0) Basophils (%) (Auto) 1.0 % (0.0-2.0) Sodium Level 138 MMOL/L (136-145) Potassium Level 3.5 MMOL/L (3.5-5.1) Chloride Level 100 MMOL/L (98-107) Carbon Dioxide Level 30 MMOL/L (21-32) Anion Gap 8 mmol/L (5-15) Blood Urea Nitrogen 38 mg/dL (7-18) H Creatinine 1.7 MG/DL (0.55-1.30) H Estimat Glomerular Filtration Rate 49.4 mL/min (>60) Glucose Level 114 MG/DL (74-106) H Uric Acid 11.3 MG/DL (2.6-7.2) H Calcium Level 8.5 MG/DL (8.5-10.1) Phosphorus Level 3.0 MG/DL (2.5-4.9) Magnesium Level 2.0 MG/DL (1.8-2.4) Total Bilirubin 2.1 MG/DL (0.2-1.0) H Direct Bilirubin 1.1 MG/DL (0.0-0.3) H Aspartate Amino Transf (AST/SGOT) 23 U/L (15-37) Alanine Aminotransferase (ALT/SGPT) 17 U/L (12-78) Alkaline Phosphatase 95 U/L (46-116) Total Creatine Kinase 28 U/L (26-308) Pro-B-Type Natriuretic Peptide 4498 pg/mL (0-125) H Total Protein 7.2 G/DL (6.4-8.2) Albumin 3.0 G/DL (3.4-5.0) L Globulin 4.2 g/dL Albumin/Globulin Ratio 0.7 (1.0-2.7) L Objective HEAD AND NECK: Positive JVD. LUNGS: Shows coarse rhonchi. CARDIOVASCULAR: Shows regular S1 and S2 with no murmur or gallop. Defibrillator is in the left subclavian. ABDOMEN: Soft, no ascites. EXTREMITIES: 1+ pitting edema. Rc Zhang MD Feb 05, 2018 10:39
--- NOTE | 2018-02-05 11:02 | Pulmonology Progress Note ---
Assessment/Plan Problems: (1) ARIS (acute kidney injury) (2) ACS (acute coronary syndrome) (3) ICD (implantable cardioverter-defibrillator) in place (4) Emphysema lung (5) Cirrhosis (6) Hepatitis C (7) Lumbar radiculopathy (8) EF < 20% (9) Ascites Assessment/Plan on dobutamine and dopamine drip CXr reviewed, no pulmonary edema symptomatic treatment supportive care respiratory treatment titrate fio2 to sat of 92% end of life care, consider DNR, and hospice. Subjective ROS Limited/Unobtainable: No Interval Events: depressed Constitutional: Reports: no symptoms Allergies: Coded Allergies: HYDROMORPHONE (Verified Allergy, Unknown, 12/28/10) Objective Last 24 Hour Vital Signs Date Time Temp Pulse Resp B/P (MAP) Pulse Ox O2 Delivery O2 Flow Rate FiO2 02/05/18 09:57 97.5 02/05/18 08:59 69 02/05/18 08:58 97.5 02/05/18 08:00 Room Air 02/05/18 08:00 70 02/05/18 08:00 97.5 69 18 104/68 (80) 99 97.5 02/05/18 05:03 87/59 02/05/18 04:14 70 02/05/18 04:00 97.2 69 20 110/74 (86) 97 97.2 02/05/18 04:00 Room Air 02/05/18 00:00 Room Air 02/05/18 00:00 97.0 71 20 87/59 (68) 96 97.0 02/04/18 23:54 70 02/04/18 20:00 97.8 70 16 113/77 (89) 95 97.8 02/04/18 20:00 Room Air 02/04/18 20:00 113/77 02/04/18 19:04 70 02/04/18 18:53 97.2 02/04/18 18:23 97.2 02/04/18 17:09 97.2 02/04/18 17:00 114/85 02/04/18 16:26 114/85 02/04/18 16:12 114/85 02/04/18 16:00 71 02/04/18 16:00 97.2 70 15 114/85 (95) 100 97.2 02/04/18 16:00 Room Air 02/04/18 14:30 71 15 112/83 (93) 94 02/04/18 14:00 74 17 115/88 (97) 94 02/04/18 14:00 115/88 02/04/18 13:30 71 15 112/86 (95) 91 02/04/18 13:22 97.8 02/04/18 13:00 110/80 02/04/18 13:00 71 15 110/80 (90) 90 02/04/18 12:30 73 10 112/82 (92) 97 02/04/18 12:23 97.8 02/04/18 12:00 69 02/04/18 12:00 125/77 02/04/18 12:00 Room Air 02/04/18 12:00 97.8 71 15 125/77 (93) 97 97.8 02/04/18 11:30 73 10 112/82 (92) 95 Intake and Output 02/04/18 02/05/18 19:00 07:00 Intake Total 1101.27377 ml 554.986 ml Output Total 1000 ml 500 ml Balance 101.68200 ml 54.986 ml Intake Oral 1000 ml 250 ml IV Total 101.99313 ml 304.986 ml Output Urine Total 775 ml 500 ml Emesis 225 ml # Voids 2 General Appearance: cachetic HEENT: normocephalic Respiratory/Chest: chest wall non-tender, lungs clear Cardiovascular: normal peripheral pulses, normal rate Abdomen: normal bowel sounds, soft, non tender Genitourinary: normal external genitalia Extremities: no cyanosis Skin: no rash 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 Lymphatic: no neck adenopathy Laboratory Tests 02/05/18 04:05: White Blood Count 4.2L, Red Blood Count 4.79, Hemoglobin 12.1L, Hematocrit 40.0L , Mean Corpuscular Volume 84, Mean Corpuscular Hemoglobin 25.2L, Mean Corpuscular Hemoglobin Concent 30.2L, Red Cell Distribution Width 19.4H, Platelet Count 210, Mean Platelet Volume 5.7L, Neutrophils (%) (Auto) 69.7, Lymphocytes (%) (Auto) 14.7L, Monocytes (%) (Auto) 12.6H, Eosinophils (%) (Auto ) 2.1, Basophils (%) (Auto) 1.0, Sodium Level 138, Potassium Level 3.5, Chloride Level 100, Carbon Dioxide Level 30, Anion Gap 8, Blood Urea Nitrogen 38H, Creatinine 1.7H, Estimat Glomerular Filtration Rate 49.4, Glucose Level 114H, Uric Acid 11.3H, Calcium Level 8.5, Phosphorus Level 3.0, Magnesium Level 2.0, Total Bilirubin 2.1H, Direct Bilirubin 1.1H, Aspartate Amino Transf (AST/ SGOT) 23, Alanine Aminotransferase (ALT/SGPT) 17, Alkaline Phosphatase 95, Total Creatine Kinase 28, Pro-B-Type Natriuretic Peptide 4498H, Total Protein 7.2, Albumin 3.0L, Globulin 4.2, Albumin/Globulin Ratio 0.7L Current Medications Medications (Trade) Dose Ordered Sig/Allyn Route PRN Reason Start Time Stop Time Status Last Admin Dose Admin Allopurinol (Allopurinol) 300 mg DAILY ORAL 02/05/18 09:00 03/07/18 08:59 02/05/18 08:58 Bisacodyl (Dulcolax) 5 mg DAILYPRN PRN ORAL Constipation 02/05/18 09:00 03/07/18 08:59 Chlorhexidine Gluconate (Kalani-Hex 2%) 1 applic DAILY@2000 TOPIC 02/04/18 20:00 03/06/18 19:59 02/04/18 21:30 Digoxin (Lanoxin) 0.125 mg DAILY ORAL 02/05/18 09:00 03/05/18 08:59 02/05/18 08:59 Diphenhydramine HCl (Benadryl) 25 mg Q8H PRN IVP Itching 02/04/18 15:00 03/05/18 14:59 Dobutamine HCl 250 ml @ 22.181 mls/ hr Q11H IV 02/05/18 05:00 03/06/18 16:59 02/05/18 05:03 Dopamine HCl/ Dextrose 250 ml @ 5.545 mls/ hr Q24H IV 02/04/18 16:15 03/06/18 16:14 02/04/18 16:26 Furosemide (Lasix) 40 mg EVERY 12 HOURS IV 02/05/18 21:00 03/07/18 20:59 Gabapentin (Neurontin) 100 mg BID ORAL 02/04/18 18:00 9/20/18 08:59 02/05/18 08:57 Levothyroxine Sodium (Synthroid) 50 mcg DAILY IV 02/05/18 09:00 03/06/18 11:59 02/05/18 08:56 Midodrine (Pro-Amatine) 10 mg Q8H ORAL 02/04/18 17:00 03/06/18 08:59 02/05/18 08:57 Morphine Sulfate (Morphine Sulfate) 4 mg Q4H PRN IVP For Pain 02/04/18 15:30 02/10/18 15:29 02/05/18 06:18 Multivitamins (Multivitamins) 1 tab DAILY ORAL 02/05/18 09:00 03/05/18 08:59 02/05/18 08:57 Ondansetron HCl (Zofran) 4 mg Q8H PRN IVP Nausea & Vomiting 02/04/18 18:45 03/05/18 18:44 Oxycodone HCl (Roxicodone) 10 mg Q6H PRN ORAL moderate Breakthrough Pain 02/04/18 15:30 02/10/18 15:29 Pantoprazole (Protonix) 40 mg DAILY ORAL 02/05/18 09:00 03/05/18 08:59 02/05/18 08:56 Rivaroxaban (Xarelto) 15 mg DAILY ORAL 02/05/18 09:00 03/05/18 08:59 02/05/18 08:59 Spironolactone (Aldactone) 25 mg DAILY ORAL 02/05/18 09:00 03/05/18 08:59 Tizanidine HCl (Zanaflex) 4 mg THREE TIMES A DAY ORAL 02/04/18 18:00 03/05/18 08:59 02/05/18 08:58 Andrzej Chavarria MD Feb 05, 2018 11:02
--- NOTE | 2018-02-05 11:31 | Nephrology Progress Note ---
Assessment/Plan Problem List: (1) Acute renal failure (ARF) (2) EF < 20% (3) Cardiomyopathy due to hypertension, with heart failure (4) Hypothyroidism Assessment in [place] now Remains on dobutamine Abdominal pain Cardiomyopathy due to hypertension, with heart failure and Hypotension EF < 20% Chronic pain ARIS (acute kidney injury) due to cardiac and liver disease and low bp Hep C and Cirrhosis HypoThyroidism Cannabis abuse Plan Optimize cardiac status Dobutamin ? Midodrine Synthroid IV monitor renal parameters poor prognosis due to sever cardiac disease avoid nephrotoxics suggest re eval code status Per orders Subjective ROS Limited/Unobtainable: No Constitutional: Reports: malaise, weakness Objective Objective Last 24 Hour Vital Signs Date Time Temp Pulse Resp B/P (MAP) Pulse Ox O2 Delivery O2 Flow Rate FiO2 02/05/18 10:09 114/79 02/05/18 09:57 97.5 02/05/18 08:59 69 02/05/18 08:58 97.5 02/05/18 08:00 Room Air 02/05/18 08:00 70 02/05/18 08:00 97.5 69 18 104/68 (80) 99 97.5 02/05/18 05:03 87/59 02/05/18 04:14 70 02/05/18 04:00 97.2 69 20 110/74 (86) 97 97.2 02/05/18 04:00 Room Air 02/05/18 00:00 Room Air 02/05/18 00:00 97.0 71 20 87/59 (68) 96 97.0 02/04/18 23:54 70 02/04/18 20:00 97.8 70 16 113/77 (89) 95 97.8 02/04/18 20:00 Room Air 02/04/18 20:00 113/77 02/04/18 19:04 70 02/04/18 18:53 97.2 02/04/18 18:23 97.2 02/04/18 17:09 97.2 02/04/18 17:00 114/85 02/04/18 16:26 114/85 02/04/18 16:12 114/85 02/04/18 16:00 71 02/04/18 16:00 97.2 70 15 114/85 (95) 100 97.2 02/04/18 16:00 Room Air 02/04/18 14:30 71 15 112/83 (93) 94 02/04/18 14:00 74 17 115/88 (97) 94 02/04/18 14:00 115/88 02/04/18 13:30 71 15 112/86 (95) 91 02/04/18 13:22 97.8 02/04/18 13:00 110/80 02/04/18 13:00 71 15 110/80 (90) 90 02/04/18 12:30 73 10 112/82 (92) 97 02/04/18 12:23 97.8 02/04/18 12:00 69 02/04/18 12:00 125/77 02/04/18 12:00 Room Air 02/04/18 12:00 97.8 71 15 125/77 (93) 97 97.8 02/04/18 11:30 73 10 112/82 (92) 95 Intake and Output 02/04/18 02/05/18 19:00 07:00 Intake Total 1101.32454 ml 554.986 ml Output Total 1000 ml 500 ml Balance 101.91782 ml 54.986 ml Intake Oral 1000 ml 250 ml IV Total 101.83859 ml 304.986 ml Output Urine Total 775 ml 500 ml Emesis 225 ml # Voids 2 Laboratory Tests 02/05/18 04:05: White Blood Count 4.2L, Red Blood Count 4.79, Hemoglobin 12.1L, Hematocrit 40.0L , Mean Corpuscular Volume 84, Mean Corpuscular Hemoglobin 25.2L, Mean Corpuscular Hemoglobin Concent 30.2L, Red Cell Distribution Width 19.4H, Platelet Count 210, Mean Platelet Volume 5.7L, Neutrophils (%) (Auto) 69.7, Lymphocytes (%) (Auto) 14.7L, Monocytes (%) (Auto) 12.6H, Eosinophils (%) (Auto ) 2.1, Basophils (%) (Auto) 1.0, Sodium Level 138, Potassium Level 3.5, Chloride Level 100, Carbon Dioxide Level 30, Anion Gap 8, Blood Urea Nitrogen 38H, Creatinine 1.7H, Estimat Glomerular Filtration Rate 49.4, Glucose Level 114H, Uric Acid 11.3H, Calcium Level 8.5, Phosphorus Level 3.0, Magnesium Level 2.0, Total Bilirubin 2.1H, Direct Bilirubin 1.1H, Aspartate Amino Transf (AST/ SGOT) 23, Alanine Aminotransferase (ALT/SGPT) 17, Alkaline Phosphatase 95, Total Creatine Kinase 28, Pro-B-Type Natriuretic Peptide 4498H, Total Protein 7.2, Albumin 3.0L, Globulin 4.2, Albumin/Globulin Ratio 0.7L Height (Feet): 5 Height (Inches): 9.00 Weight (Pounds): 160 General Appearance: no apparent distress Respiratory/Chest: decreased breath sounds Abdomen: soft Objective no change Blaine Foss MD Feb 05, 2018 11:31
--- NOTE | 2018-02-05 11:52 | General Progress Note ---
Assessment/Plan Problem List: (1) Lumbar spondylosis ICD Codes: M47.816 - Spondylosis without myelopathy or radiculopathy, lumbar region SNOMED: 585513749 (2) Cirrhosis ICD Codes: K74.60 - Unspecified cirrhosis of liver SNOMED: 87365726 (3) Hypothyroidism ICD Codes: E03.9 - Hypothyroidism SNOMED: 40133871 (4) Pain ICD Codes: R52 - Pain SNOMED: 24855832 (5) Blood pressure instability ICD Codes: I99.8 - Other disorder of circulatory system SNOMED: 13935524 (6) Ascites ICD Codes: R18.8 - Ascites SNOMED: 698813099 (7) Cirrhosis ICD Codes: K74.60 - Unspecified cirrhosis of liver SNOMED: 10083371 (8) Right-sided heart failure ICD Codes: I50.9 - Right-sided heart failure SNOMED: 920912727 (9) ICD (implantable cardioverter-defibrillator) in place ICD Codes: Z95.810 - Presence of automatic (implantable) cardiac defibrillator SNOMED: 275924463, 155702329 (10) EF < 20% (11) Lumbar radiculopathy ICD Codes: M54.16 - Lumbar radiculopathy SNOMED: 653050527 Status: progressing Assessment/Plan off icu r/o sepsis arrythmia chronic pain cirrhosis Subjective Allergies: Coded Allergies: HYDROMORPHONE (Verified Allergy, Unknown, 12/28/10) Subjective chronic pain Objective Last 24 Hour Vital Signs Date Time Temp Pulse Resp B/P (MAP) Pulse Ox O2 Delivery O2 Flow Rate FiO2 02/05/18 10:09 114/79 02/05/18 09:57 97.5 02/05/18 08:59 69 02/05/18 08:58 97.5 02/05/18 08:00 Room Air 02/05/18 08:00 70 02/05/18 08:00 97.5 69 18 104/68 (80) 99 97.5 02/05/18 05:03 87/59 02/05/18 04:14 70 02/05/18 04:00 97.2 69 20 110/74 (86) 97 97.2 02/05/18 04:00 Room Air 02/05/18 00:00 Room Air 02/05/18 00:00 97.0 71 20 87/59 (68) 96 97.0 02/04/18 23:54 70 02/04/18 20:00 97.8 70 16 113/77 (89) 95 97.8 02/04/18 20:00 Room Air 02/04/18 20:00 113/77 02/04/18 19:04 70 02/04/18 18:53 97.2 02/04/18 18:23 97.2 02/04/18 17:09 97.2 02/04/18 17:00 114/85 02/04/18 16:26 114/85 02/04/18 16:12 114/85 02/04/18 16:00 71 02/04/18 16:00 97.2 70 15 114/85 (95) 100 97.2 02/04/18 16:00 Room Air 02/04/18 14:30 71 15 112/83 (93) 94 02/04/18 14:00 74 17 115/88 (97) 94 02/04/18 14:00 115/88 02/04/18 13:30 71 15 112/86 (95) 91 02/04/18 13:22 97.8 02/04/18 13:00 110/80 02/04/18 13:00 71 15 110/80 (90) 90 02/04/18 12:30 73 10 112/82 (92) 97 02/04/18 12:23 97.8 02/04/18 12:00 69 02/04/18 12:00 125/77 02/04/18 12:00 Room Air 02/04/18 12:00 97.8 71 15 125/77 (93) 97 97.8 Intake and Output 02/04/18 02/05/18 19:00 07:00 Intake Total 1101.43960 ml 554.986 ml Output Total 1000 ml 500 ml Balance 101.45874 ml 54.986 ml Intake Oral 1000 ml 250 ml IV Total 101.09103 ml 304.986 ml Output Urine Total 775 ml 500 ml Emesis 225 ml # Voids 2 Laboratory Tests 02/05/18 04:05: White Blood Count 4.2L, Red Blood Count 4.79, Hemoglobin 12.1L, Hematocrit 40.0L , Mean Corpuscular Volume 84, Mean Corpuscular Hemoglobin 25.2L, Mean Corpuscular Hemoglobin Concent 30.2L, Red Cell Distribution Width 19.4H, Platelet Count 210, Mean Platelet Volume 5.7L, Neutrophils (%) (Auto) 69.7, Lymphocytes (%) (Auto) 14.7L, Monocytes (%) (Auto) 12.6H, Eosinophils (%) (Auto ) 2.1, Basophils (%) (Auto) 1.0, Sodium Level 138, Potassium Level 3.5, Chloride Level 100, Carbon Dioxide Level 30, Anion Gap 8, Blood Urea Nitrogen 38H, Creatinine 1.7H, Estimat Glomerular Filtration Rate 49.4, Glucose Level 114H, Uric Acid 11.3H, Calcium Level 8.5, Phosphorus Level 3.0, Magnesium Level 2.0, Total Bilirubin 2.1H, Direct Bilirubin 1.1H, Aspartate Amino Transf (AST/ SGOT) 23, Alanine Aminotransferase (ALT/SGPT) 17, Alkaline Phosphatase 95, Total Creatine Kinase 28, Pro-B-Type Natriuretic Peptide 4498H, Total Protein 7.2, Albumin 3.0L, Globulin 4.2, Albumin/Globulin Ratio 0.7L Height (Feet): 5 Height (Inches): 9.00 Weight (Pounds): 160 Respiratory/Chest: lungs clear Abdomen: soft Winston Jin MD Feb 05, 2018 11:52
[2018-02-05 12:00] VITALS: BP 110/79
--- NOTE | 2018-02-05 12:21 | GI Progress Note ---
Assessment/Plan Problems: (1) EF < 10% (2) Abdominal pain ICD Codes: R10.9 - Abdominal pain SNOMED: 46380771 Qualifiers: Qualified Codes: R10.84 - Generalized abdominal pain (3) Cirrhosis ICD Codes: K74.60 - Unspecified cirrhosis of liver SNOMED: 69409005 (4) Hepatitis C ICD Codes: B19.20 - Hepatitis C SNOMED: 66911699 (5) Cirrhosis ICD Codes: K74.60 - Unspecified cirrhosis of liver SNOMED: 82212333 (6) Ascites ICD Codes: R18.8 - Ascites SNOMED: 422388384 Status: unchanged Status Narrative Discussed with Dr. Ryan. Assessment/Plan hx of Hep C in 2014 s/p tx >> hep panel redrawn in 2016 was negative s/p colonoscopy with one polyp 06/26/16 fu cardiology recs paracentesis prn diuresis adv low sodium diet bowel regime zofran prn ppi pain mgmt fu labs could benefit from outpatient fibroid scan evaluate cirrhosis repeat colonoscopy in 2021 The patient was seen and examined at bedside and all new and available data was reviewed in the patients chart. I agree with the above findings, impression and plan. (Patient seen earlier today. Signature stamp does not reflect patient encounter time.). - Beto Ryan MD Subjective Gastrointestinal/Abdominal: Reports: no symptoms Objective Last 24 Hour Vital Signs Date Time Temp Pulse Resp B/P (MAP) Pulse Ox O2 Delivery O2 Flow Rate FiO2 02/05/18 10:09 114/79 02/05/18 09:57 97.5 02/05/18 08:59 69 02/05/18 08:58 97.5 02/05/18 08:00 Room Air 02/05/18 08:00 70 02/05/18 08:00 97.5 69 18 104/68 (80) 99 97.5 02/05/18 05:03 87/59 02/05/18 04:14 70 02/05/18 04:00 97.2 69 20 110/74 (86) 97 97.2 02/05/18 04:00 Room Air 02/05/18 00:00 Room Air 02/05/18 00:00 97.0 71 20 87/59 (68) 96 97.0 02/04/18 23:54 70 02/04/18 20:00 97.8 70 16 113/77 (89) 95 97.8 02/04/18 20:00 Room Air 02/04/18 20:00 113/77 02/04/18 19:04 70 02/04/18 18:53 97.2 02/04/18 18:23 97.2 02/04/18 17:09 97.2 02/04/18 17:00 114/85 02/04/18 16:26 114/85 02/04/18 16:12 114/85 02/04/18 16:00 71 02/04/18 16:00 97.2 70 15 114/85 (95) 100 97.2 02/04/18 16:00 Room Air 02/04/18 14:30 71 15 112/83 (93) 94 02/04/18 14:00 74 17 115/88 (97) 94 02/04/18 14:00 115/88 02/04/18 13:30 71 15 112/86 (95) 91 02/04/18 13:22 97.8 02/04/18 13:00 110/80 02/04/18 13:00 71 15 110/80 (90) 90 02/04/18 12:30 73 10 112/82 (92) 97 02/04/18 12:23 97.8 Intake and Output 02/04/18 02/05/18 19:00 07:00 Intake Total 1101.41153 ml 554.986 ml Output Total 1000 ml 500 ml Balance 101.42270 ml 54.986 ml Intake Oral 1000 ml 250 ml IV Total 101.41560 ml 304.986 ml Output Urine Total 775 ml 500 ml Emesis 225 ml # Voids 2 Laboratory Tests Test 02/05/18 04:05 White Blood Count 4.2 K/UL (4.8-10.8) L Red Blood Count 4.79 M/UL (4.70-6.10) Hemoglobin 12.1 G/DL (14.2-18.0) L Hematocrit 40.0 % (42.0-52.0) L Mean Corpuscular Volume 84 FL (80-99) Mean Corpuscular Hemoglobin 25.2 PG (27.0-31.0) L Mean Corpuscular Hemoglobin Concent 30.2 G/DL (32.0-36.0) L Red Cell Distribution Width 19.4 % (11.6-14.8) H Platelet Count 210 K/UL (150-450) Mean Platelet Volume 5.7 FL (6.5-10.1) L Neutrophils (%) (Auto) 69.7 % (45.0-75.0) Lymphocytes (%) (Auto) 14.7 % (20.0-45.0) L Monocytes (%) (Auto) 12.6 % (1.0-10.0) H Eosinophils (%) (Auto) 2.1 % (0.0-3.0) Basophils (%) (Auto) 1.0 % (0.0-2.0) Sodium Level 138 MMOL/L (136-145) Potassium Level 3.5 MMOL/L (3.5-5.1) Chloride Level 100 MMOL/L (98-107) Carbon Dioxide Level 30 MMOL/L (21-32) Anion Gap 8 mmol/L (5-15) Blood Urea Nitrogen 38 mg/dL (7-18) H Creatinine 1.7 MG/DL (0.55-1.30) H Estimat Glomerular Filtration Rate 49.4 mL/min (>60) Glucose Level 114 MG/DL (74-106) H Uric Acid 11.3 MG/DL (2.6-7.2) H Calcium Level 8.5 MG/DL (8.5-10.1) Phosphorus Level 3.0 MG/DL (2.5-4.9) Magnesium Level 2.0 MG/DL (1.8-2.4) Total Bilirubin 2.1 MG/DL (0.2-1.0) H Direct Bilirubin 1.1 MG/DL (0.0-0.3) H Aspartate Amino Transf (AST/SGOT) 23 U/L (15-37) Alanine Aminotransferase (ALT/SGPT) 17 U/L (12-78) Alkaline Phosphatase 95 U/L (46-116) Total Creatine Kinase 28 U/L (26-308) Pro-B-Type Natriuretic Peptide 4498 pg/mL (0-125) H Total Protein 7.2 G/DL (6.4-8.2) Albumin 3.0 G/DL (3.4-5.0) L Globulin 4.2 g/dL Albumin/Globulin Ratio 0.7 (1.0-2.7) L Height (Feet): 5 Height (Inches): 9.00 Weight (Pounds): 160 General Appearance: WD/WN, no apparent distress, alert Cardiovascular: normal rate Respiratory/Chest: normal breath sounds, no respiratory distress Abdominal Exam: normal bowel sounds, non tender, soft Extremities: normal range of motion, non-tender Kiarra Bird NP Feb 05, 2018 12:21
--- NOTE | 2018-02-05 15:42 | Diagnostic Imaging Report ---
Indication: Dyspnea Technique: XRAY Chest 1v Comparison: 02/02/2018 Findings: Stable marked cardiomegaly. AICD unchanged. There is pulmonary vascular congestion/mild interstitial edema. This is increased compared to the prior exam. There is no definite focal airspace consolidation. Costophrenic sulci are sharp. No pneumothorax. Impression: Cardiomegaly. Pulmonary vascular congestion/mild interstitial edema slightly increased from the prior exam.
[2018-02-05 16:00] VITALS: BP 108/77
[2018-02-05] MEDS: DOPamine 400mg/250ml 250 ML IV SCH (16:06)
[2018-02-05] MEDS ORDERED: D5W 275ml ONE (16:37)
--- NOTE | 2018-02-05 18:15 | General Progress Note ---
Assessment/Plan Assessment/Plan (1) Lumbar degenerative disc disease (2) Lumbar spondylosis (3) Lumbar radiculopathy (4) Liver Cirrhosis (5) Abdominal pain Pt will be continued on morphine and Oxycodone. Pt was d/w Dr. Carson and he concurred. Subjective Date patient seen: Feb 05, 2018 Time patient seen: 05:30 - pm Allergies: Coded Allergies: HYDROMORPHONE (Verified Allergy, Unknown, 12/28/10) Subjective Constitutional: Reports: weakness, Denies: chills, diaphoresis, fever, malaise , no symptoms, other HEENT: Denies: blurred vision, double vision, ear discharge, ear pain, eye pain , mouth pain, mouth swelling, no symptoms, nose congestion, nose pain, other, tearing, throat pain, throat swelling Cardiovascular: Denies: irregular heart rate, lightheadedness, no symptoms, other, palpitations, syncope Respiratory: Denies: SOB at rest, SOB with excertion, cough, no symptoms, orthopnea, other, shortness of breath, sputum, stridor, wheezing Gastrointestinal/Abdominal: Reports: abdominal pain, Denies: abdomen distended , black stools, blood in stool, constipated, diarrhea, difficulty swallowing, nausea, no symptoms, other, poor appetite, poor fluid intake, rectal bleeding, tarry stools, vomiting Genitourinary: Denies: burning, discharge, flank pain, frequency, hematuria, incontinence, no symptoms, other, pain, urgency Neurologic/Psychiatric: Reports: weakness, Denies: anxiety, depressed, emotional problems, headache, no symptoms, numbness, other, paresthesia, pre- existing deficit, seizure, tingling, tremors Endocrine: Denies: excessive sweating, flushing, increased hunger, increased thirst, increased urine, intolerance to cold, intolerance to heat, no symptoms, other, unexplained weight gain, unexplained weight loss Hematologic/Lymphatic: Denies: anemia, easy bleeding, easy bruising, no symptoms, other Subjective Patient reports no new complaints and pain is at a moderate level with the morphine and Oxycodone. He has no new complaints. Objective Last 24 Hour Vital Signs Date Time Temp Pulse Resp B/P (MAP) Pulse Ox O2 Delivery O2 Flow Rate FiO2 02/05/18 17:46 97.7 8/23/18 16:06 108/77 02/05/18 16:00 Room Air 02/05/18 16:00 70 02/05/18 16:00 97.7 70 15 108/77 (87) 97 97.7 02/05/18 16:00 108/77 02/05/18 13:53 97.7 02/05/18 12:54 97.7 02/05/18 12:00 Room Air 02/05/18 12:00 70 02/05/18 12:00 110/79 02/05/18 12:00 97.7 71 17 110/79 (89) 99 97.7 02/05/18 10:09 114/79 02/05/18 08:59 69 02/05/18 08:58 97.5 02/05/18 08:00 Room Air 02/05/18 08:00 70 02/05/18 08:00 97.5 69 18 104/68 (80) 99 97.5 02/05/18 08:00 104/68 02/05/18 05:03 87/59 02/05/18 04:14 70 02/05/18 04:00 97.2 69 20 110/74 (86) 97 97.2 02/05/18 04:00 Room Air 02/05/18 00:00 Room Air 02/05/18 00:00 97.0 71 20 87/59 (68) 96 97.0 02/04/18 23:54 70 02/04/18 20:00 97.8 70 16 113/77 (89) 95 97.8 02/04/18 20:00 Room Air 02/04/18 20:00 113/77 02/04/18 19:04 70 02/04/18 18:53 97.2 02/04/18 18:23 97.2 Intake and Output 02/04/18 02/05/18 19:00 07:00 Intake Total 1101.35247 ml 554.986 ml Output Total 1000 ml 500 ml Balance 101.50578 ml 54.986 ml Intake Oral 1000 ml 250 ml IV Total 101.81234 ml 304.986 ml Output Urine Total 775 ml 500 ml Emesis 225 ml # Voids 2 Laboratory Tests 02/05/18 04:05: White Blood Count 4.2L, Red Blood Count 4.79, Hemoglobin 12.1L, Hematocrit 40.0L , Mean Corpuscular Volume 84, Mean Corpuscular Hemoglobin 25.2L, Mean Corpuscular Hemoglobin Concent 30.2L, Red Cell Distribution Width 19.4H, Platelet Count 210, Mean Platelet Volume 5.7L, Neutrophils (%) (Auto) 69.7, Lymphocytes (%) (Auto) 14.7L, Monocytes (%) (Auto) 12.6H, Eosinophils (%) (Auto ) 2.1, Basophils (%) (Auto) 1.0, Sodium Level 138, Potassium Level 3.5, Chloride Level 100, Carbon Dioxide Level 30, Anion Gap 8, Blood Urea Nitrogen 38H, Creatinine 1.7H, Estimat Glomerular Filtration Rate 49.4, Glucose Level 114H, Uric Acid 11.3H, Calcium Level 8.5, Phosphorus Level 3.0, Magnesium Level 2.0, Total Bilirubin 2.1H, Direct Bilirubin 1.1H, Aspartate Amino Transf (AST/ SGOT) 23, Alanine Aminotransferase (ALT/SGPT) 17, Alkaline Phosphatase 95, Total Creatine Kinase 28, Pro-B-Type Natriuretic Peptide 4498H, Total Protein 7.2, Albumin 3.0L, Globulin 4.2, Albumin/Globulin Ratio 0.7L Height (Feet): 5 Height (Inches): 9.00 Weight (Pounds): 160 Objective General Appearance: no apparent distress, alert EENT: normal ENT inspection, TMs normal Neck: normal alignment, supple Cardiovascular: normal rate, regular rhythm Respiratory/Chest: lungs clear, normal breath sounds Abdomen: tender, distended Extremities: non-tender Edema: edema noted in b/l LE Neurologic: alert, oriented x 3 Skin: warm/dry Luc Sanchez Feb 05, 2018 18:15
[2018-02-05 20:00] VITALS: BP 117/76
[2018-02-05] MEDS: Dyna-Hex 2% Top Sol 2oz TOPIC SCH (20:28)
[2018-02-06] VITALS (7 sets, daily range): BP systolic 96–134; BP diastolic 62–85
[2018-02-06] MEDS: Midodrine 10mg tab ORAL SCH ×3 (01:23→18:28)
[2018-02-06 06:12] LABS: BASOPHILS % (AUTO) 0.9 % (0.0-2.0); EOSINOPHILS % (AUTO) 2.6 % (0.0-3.0); HEMATOCRIT 38.8 % (42.0-52.0); HEMOGLOBIN 11.7 G/DL (14.2-18.0); LYMPHOCYTES % (AUTO) 17.5 % (20.0-45.0); MEAN CORPUSCULAR VOLUME 84 FL (80-99); MONOCYTES % (AUTO) 12.4 % (1.0-10.0); NEUTROPHILS % (AUTO) 66.6 % (45.0-75.0); PLATELET COUNT 201 K/UL (150-450); RED BLOOD COUNT 4.61 M/UL (4.70-6.10); RED CELL DISTRIBUTION WIDTH 19.2 % (11.6-14.8); WHITE BLOOD COUNT 3.6 K/UL (4.8-10.8)
[2018-02-06 06:41] LABS: ALANINE AMINOTRANSFERASE 19 U/L (12-78); ALBUMIN 3.1 G/DL (3.4-5.0); ALBUMIN/GLOBULIN RATIO 0.7 (1.0-2.7); ALKALINE PHOSPHATASE 96 U/L (46-116); ANION GAP 5 mmol/L (5-15); ASPARTATE AMINO TRANSFERASE 22 U/L (15-37); BILIRUBIN,TOTAL 1.8 MG/DL (0.2-1.0); BLOOD UREA NITROGEN 27 mg/dL (7-18); CALCIUM 8.6 MG/DL (8.5-10.1); CARBON DIOXIDE 33 MMOL/L (21-32); CHLORIDE 100 MMOL/L (98-107); CREATININE 1.5 MG/DL (0.55-1.30); POTASSIUM 3.8 MMOL/L (3.5-5.1); SODIUM 138 MMOL/L (136-145)
[2018-02-06 06:45] LABS: BILIRUBIN,DIRECT 0.8 MG/DL (0.0-0.3)
[2018-02-06] MEDS: Spironolactone 25mg tab ORAL SCH (08:51)
[2018-02-06] MEDS: Xarelto 15mg tab ORAL SCH (08:52)
[2018-02-06] MEDS: Digoxin 0.125mg tab ORAL SCH (08:52)
[2018-02-06] MEDS: DOBUTamine 250mg/250ml Premix 250 ML IV SCH ×2 (09:08→18:29)
--- NOTE | 2018-02-06 09:33 | General Progress Note ---
Assessment/Plan Assessment/Plan (1) Lumbar degenerative disc disease (2) Lumbar spondylosis (3) Lumbar radiculopathy (4) Liver Cirrhosis (5) Abdominal pain Pt will be discontinued off the morphine and Oxycodone will be changed to Q4H PRN severe pain. Pt was d/w Dr. Carson and he concurred. Subjective Date patient seen: Feb 06, 2018 Time patient seen: 08:30 - am Allergies: Coded Allergies: HYDROMORPHONE (Verified Allergy, Unknown, 12/28/10) Subjective Constitutional: Reports: weakness, Denies: chills, diaphoresis, fever, malaise , no symptoms, other HEENT: Denies: blurred vision, double vision, ear discharge, ear pain, eye pain , mouth pain, mouth swelling, no symptoms, nose congestion, nose pain, other, tearing, throat pain, throat swelling Cardiovascular: Denies: irregular heart rate, lightheadedness, no symptoms, other, palpitations, syncope Respiratory: Denies: SOB at rest, SOB with excertion, cough, no symptoms, orthopnea, other, shortness of breath, sputum, stridor, wheezing Gastrointestinal/Abdominal: Reports: abdominal pain, Denies: abdomen distended , black stools, blood in stool, constipated, diarrhea, difficulty swallowing, nausea, no symptoms, other, poor appetite, poor fluid intake, rectal bleeding, tarry stools, vomiting Genitourinary: Denies: burning, discharge, flank pain, frequency, hematuria, incontinence, no symptoms, other, pain, urgency Neurologic/Psychiatric: Reports: weakness, Denies: anxiety, depressed, emotional problems, headache, no symptoms, numbness, other, paresthesia, pre- existing deficit, seizure, tingling, tremors Endocrine: Denies: excessive sweating, flushing, increased hunger, increased thirst, increased urine, intolerance to cold, intolerance to heat, no symptoms, other, unexplained weight gain, unexplained weight loss Hematologic/Lymphatic: Denies: anemia, easy bleeding, easy bruising, no symptoms, other Subjective Patient is in bed and continues to c/o pain with minimal relief on the Morphine has not gotten the Oxycodone which he has more relief with. Objective Last 24 Hour Vital Signs Date Time Temp Pulse Resp B/P (MAP) Pulse Ox O2 Delivery O2 Flow Rate FiO2 02/06/18 09:08 127/85 02/06/18 08:52 70 02/06/18 04:00 97.7 83 17 127/85 (99) 100 97.7 02/06/18 04:00 Room Air 02/06/18 03:42 72 02/06/18 01:00 120/74 02/06/18 00:00 97.8 67 17 120/74 (89) 99 97.8 02/06/18 00:00 Room Air 02/05/18 23:31 70 02/05/18 20:00 97.7 70 18 117/76 (90) 99 97.7 02/05/18 20:00 117/76 02/05/18 20:00 Room Air 02/05/18 19:08 97.7 02/05/18 19:07 70 02/05/18 18:45 97.7 02/05/18 18:38 97.7 02/05/18 18:33 100/70 02/05/18 17:46 97.7 02/05/18 16:06 108/77 02/05/18 16:00 Room Air 02/05/18 16:00 70 02/05/18 16:00 97.7 70 15 108/77 (87) 97 97.7 02/05/18 16:00 108/77 02/05/18 12:54 97.7 02/05/18 12:00 Room Air 02/05/18 12:00 70 02/05/18 12:00 110/79 02/05/18 12:00 97.7 71 17 110/79 (89) 99 97.7 02/05/18 10:09 114/79 Intake and Output 02/05/18 02/06/18 19:00 07:00 Intake Total 1793.065 ml 339.480 ml Output Total 875 ml 1600 ml Balance 918.065 ml -1260.520 ml Intake Oral 1500 ml 60 ml IV Total 293.065 ml 279.480 ml Output Urine Total 875 ml 1600 ml # Voids 4 7 Laboratory Tests 02/06/18 04:00: White Blood Count 3.6L, Red Blood Count 4.61L, Hemoglobin 11.7L, Hematocrit 38.8L, Mean Corpuscular Volume 84, Mean Corpuscular Hemoglobin 25.4L, Mean Corpuscular Hemoglobin Concent 30.2L, Red Cell Distribution Width 19.2H, Platelet Count 201, Mean Platelet Volume 5.9L, Neutrophils (%) (Auto) 66.6, Lymphocytes (%) (Auto) 17.5L, Monocytes (%) (Auto) 12.4H, Eosinophils (%) (Auto ) 2.6, Basophils (%) (Auto) 0.9, Sodium Level 138, Potassium Level 3.8, Chloride Level 100, Carbon Dioxide Level 33H, Anion Gap 5, Blood Urea Nitrogen 27H, Creatinine 1.5H, Estimat Glomerular Filtration Rate 57.1, Glucose Level 82 , Calcium Level 8.6, Total Bilirubin 1.8H, Direct Bilirubin 0.8H, Aspartate Amino Transf (AST/SGOT) 22, Alanine Aminotransferase (ALT/SGPT) 19, Alkaline Phosphatase 96, Total Protein 7.5, Albumin 3.1L, Globulin 4.4, Albumin/Globulin Ratio 0.7L Height (Feet): 5 Height (Inches): 9.00 Weight (Pounds): 158 Objective General Appearance: no apparent distress, alert EENT: normal ENT inspection, TMs normal Neck: normal alignment, supple Cardiovascular: normal rate, regular rhythm Respiratory/Chest: lungs clear, normal breath sounds Abdomen: tender, distended Extremities: non-tender Edema: edema noted in b/l LE Neurologic: alert, oriented x 3 Skin: warm/dry Luc Sanchez Feb 06, 2018 09:33
[2018-02-06] MEDS: oxyCODONE 5mg IR tab ORAL PRN ×2 (10:48→18:37)
--- NOTE | 2018-02-06 11:22 | Pulmonology Progress Note ---
Assessment/Plan Problems: (1) ARIS (acute kidney injury) (2) ACS (acute coronary syndrome) (3) ICD (implantable cardioverter-defibrillator) in place (4) Emphysema lung (5) Cirrhosis (6) Hepatitis C (7) Lumbar radiculopathy (8) EF < 20% (9) Ascites Assessment/Plan still on dobutamine and dopamine drip CXr reviewed, no pulmonary edema symptomatic treatment supportive care respiratory treatment titrate fio2 to sat of 92% pt is in better spirit Subjective ROS Limited/Unobtainable: No Constitutional: Reports: no symptoms HEENT: Repors: no symptoms Respiratory: Reports: no symptoms Allergies: Coded Allergies: HYDROMORPHONE (Verified Allergy, Unknown, 12/28/10) Objective Last 24 Hour Vital Signs Date Time Temp Pulse Resp B/P (MAP) Pulse Ox O2 Delivery O2 Flow Rate FiO2 02/06/18 09:08 127/85 02/06/18 08:52 70 02/06/18 04:00 97.7 83 17 127/85 (99) 100 97.7 02/06/18 04:00 Room Air 02/06/18 03:42 72 02/06/18 01:00 120/74 02/06/18 00:00 97.8 67 17 120/74 (89) 99 97.8 02/06/18 00:00 Room Air 02/05/18 23:31 70 02/05/18 20:00 97.7 70 18 117/76 (90) 99 97.7 02/05/18 20:00 117/76 02/05/18 20:00 Room Air 02/05/18 19:08 97.7 02/05/18 19:07 70 02/05/18 18:45 97.7 02/05/18 18:38 97.7 02/05/18 18:33 100/70 02/05/18 17:46 97.7 02/05/18 16:06 108/77 02/05/18 16:00 Room Air 02/05/18 16:00 70 02/05/18 16:00 97.7 70 15 108/77 (87) 97 97.7 02/05/18 16:00 108/77 02/05/18 12:54 97.7 02/05/18 12:00 Room Air 02/05/18 12:00 70 02/05/18 12:00 110/79 02/05/18 12:00 97.7 71 17 110/79 (89) 99 97.7 Intake and Output 02/05/18 02/06/18 19:00 07:00 Intake Total 1793.065 ml 339.480 ml Output Total 875 ml 1600 ml Balance 918.065 ml -1260.520 ml Intake Oral 1500 ml 60 ml IV Total 293.065 ml 279.480 ml Output Urine Total 875 ml 1600 ml # Voids 4 7 General Appearance: cachetic HEENT: normocephalic, atraumatic Respiratory/Chest: chest wall non-tender, lungs clear Cardiovascular: normal peripheral pulses, normal rate Abdomen: normal bowel sounds, no organomegaly Genitourinary: normal external genitalia Extremities: no clubbing Neurologic/Psychiatric: health professional II-XII grossly normal, no motor/sensory deficits Lymphatic: no neck adenopathy Musculoskeletal: normal muscle bulk Laboratory Tests 02/06/18 04:00: White Blood Count 3.6L, Red Blood Count 4.61L, Hemoglobin 11.7L, Hematocrit 38.8L, Mean Corpuscular Volume 84, Mean Corpuscular Hemoglobin 25.4L, Mean Corpuscular Hemoglobin Concent 30.2L, Red Cell Distribution Width 19.2H, Platelet Count 201, Mean Platelet Volume 5.9L, Neutrophils (%) (Auto) 66.6, Lymphocytes (%) (Auto) 17.5L, Monocytes (%) (Auto) 12.4H, Eosinophils (%) (Auto ) 2.6, Basophils (%) (Auto) 0.9, Sodium Level 138, Potassium Level 3.8, Chloride Level 100, Carbon Dioxide Level 33H, Anion Gap 5, Blood Urea Nitrogen 27H, Creatinine 1.5H, Estimat Glomerular Filtration Rate 57.1, Glucose Level 82 , Calcium Level 8.6, Total Bilirubin 1.8H, Direct Bilirubin 0.8H, Aspartate Amino Transf (AST/SGOT) 22, Alanine Aminotransferase (ALT/SGPT) 19, Alkaline Phosphatase 96, Total Protein 7.5, Albumin 3.1L, Globulin 4.4, Albumin/Globulin Ratio 0.7L Current Medications Medications (Trade) Dose Ordered Sig/Allyn Route PRN Reason Start Time Stop Time Status Last Admin Dose Admin Allopurinol (Allopurinol) 300 mg DAILY ORAL 02/05/18 09:00 03/07/18 08:59 02/06/18 08:50 Bisacodyl (Dulcolax) 5 mg DAILYPRN PRN ORAL Constipation 02/05/18 09:00 03/07/18 08:59 02/05/18 20:29 Chlorhexidine Gluconate (Kalani-Hex 2%) 1 applic DAILY@2000 TOPIC 02/04/18 20:00 03/06/18 19:59 02/05/18 20:28 Digoxin (Lanoxin) 0.125 mg DAILY ORAL 02/05/18 09:00 03/05/18 08:59 02/06/18 08:52 Diphenhydramine HCl (Benadryl) 25 mg Q8H PRN IVP Itching 02/04/18 15:00 03/05/18 14:59 Dobutamine HCl 250 ml @ 17.745 mls/ hr Q11H IV 02/05/18 10:09 03/07/18 10:08 02/06/18 09:08 Dopamine HCl/ Dextrose 250 ml @ 5.545 mls/ hr Q24H IV 02/04/18 16:15 03/06/18 16:14 02/05/18 16:06 Furosemide (Lasix) 40 mg EVERY 12 HOURS IV 02/05/18 21:00 03/07/18 20:59 02/06/18 08:50 Gabapentin (Neurontin) 100 mg BID ORAL 02/04/18 18:00 03/05/18 08:59 02/06/18 08:52 Levothyroxine Sodium (Synthroid) 50 mcg DAILY IV 02/05/18 09:00 03/06/18 11:59 02/06/18 09:10 Midodrine (Pro-Amatine) 10 mg Q8H ORAL 02/04/18 17:00 03/06/18 08:59 02/06/18 08:52 Multivitamins (Multivitamins) 1 tab DAILY ORAL 02/05/18 09:00 03/05/18 08:59 02/06/18 08:52 Ondansetron HCl (Zofran) 4 mg Q8H PRN IVP Nausea & Vomiting 02/04/18 18:45 03/05/18 18:44 Oxycodone HCl (Roxicodone) 10 mg Q4H PRN ORAL severe pain 02/06/18 09:30 02/10/18 15:29 02/06/18 10:48 Pantoprazole (Protonix) 40 mg DAILY ORAL 02/05/18 09:00 03/05/18 08:59 02/06/18 08:52 Rivaroxaban (Xarelto) 15 mg DAILY ORAL 02/05/18 09:00 03/05/18 08:59 02/06/18 08:52 Spironolactone (Aldactone) 25 mg DAILY ORAL 02/05/18 09:00 03/05/18 08:59 02/06/18 08:51 Tizanidine HCl (Zanaflex) 4 mg THREE TIMES A DAY ORAL 02/04/18 18:00 03/05/18 08:59 02/06/18 08:54 Andrzej Chavarria MD Feb 06, 2018 11:22
--- NOTE | 2018-02-06 11:52 | GI Progress Note ---
Assessment/Plan Problems: (1) EF < 10% (2) Abdominal pain ICD Codes: R10.9 - Abdominal pain SNOMED: 63879833 Qualifiers: Qualified Codes: R10.84 - Generalized abdominal pain (3) Cirrhosis ICD Codes: K74.60 - Unspecified cirrhosis of liver SNOMED: 85035426 (4) Hepatitis C ICD Codes: B19.20 - Hepatitis C SNOMED: 81699415 (5) Cirrhosis ICD Codes: K74.60 - Unspecified cirrhosis of liver SNOMED: 84190107 (6) Ascites ICD Codes: R18.8 - Ascites SNOMED: 325888203 Status: stable Status Narrative Discussed with Dr. Ryan. Assessment/Plan hx of Hep C in 2014 s/p tx >> hep panel redrawn in 2016 was negative s/p colonoscopy with one polyp 06/26/16 fu cardiology recs paracentesis prn diuresis adv low sodium diet bowel regime zofran prn ppi pain mgmt fu labs could benefit from outpatient fibroid scan evaluate cirrhosis outpatient follow fu repeat colonoscopy in 2021 The patient was seen and examined at bedside and all new and available data was reviewed in the patients chart. I agree with the above findings, impression and plan. (Patient seen earlier today. Signature stamp does not reflect patient encounter time.). - Beto Ryan MD Subjective Subjective overall feels better Objective Last 24 Hour Vital Signs Date Time Temp Pulse Resp B/P (MAP) Pulse Ox O2 Delivery O2 Flow Rate FiO2 02/06/18 09:08 127/85 02/06/18 08:52 70 02/06/18 04:00 97.7 83 17 127/85 (99) 100 97.7 02/06/18 04:00 Room Air 02/06/18 03:42 72 02/06/18 01:00 120/74 02/06/18 00:00 97.8 67 17 120/74 (89) 99 97.8 02/06/18 00:00 Room Air 02/05/18 23:31 70 02/05/18 20:00 97.7 70 18 117/76 (90) 99 97.7 02/05/18 20:00 117/76 02/05/18 20:00 Room Air 02/05/18 19:08 97.7 02/05/18 19:07 70 02/05/18 18:45 97.7 02/05/18 18:38 97.7 02/05/18 18:33 100/70 02/05/18 17:46 97.7 02/05/18 16:06 108/77 02/05/18 16:00 Room Air 02/05/18 16:00 70 02/05/18 16:00 97.7 70 15 108/77 (87) 97 97.7 02/05/18 16:00 108/77 02/05/18 12:54 97.7 02/05/18 12:00 Room Air 02/05/18 12:00 70 02/05/18 12:00 110/79 02/05/18 12:00 97.7 71 17 110/79 (89) 99 97.7 Intake and Output 02/05/18 02/06/18 19:00 07:00 Intake Total 1793.065 ml 339.480 ml Output Total 875 ml 1600 ml Balance 918.065 ml -1260.520 ml Intake Oral 1500 ml 60 ml IV Total 293.065 ml 279.480 ml Output Urine Total 875 ml 1600 ml # Voids 4 7 Laboratory Tests Test 02/06/18 04:00 White Blood Count 3.6 K/UL (4.8-10.8) L Red Blood Count 4.61 M/UL (4.70-6.10) L Hemoglobin 11.7 G/DL (14.2-18.0) L Hematocrit 38.8 % (42.0-52.0) L Mean Corpuscular Volume 84 FL (80-99) Mean Corpuscular Hemoglobin 25.4 PG (27.0-31.0) L Mean Corpuscular Hemoglobin Concent 30.2 G/DL (32.0-36.0) L Red Cell Distribution Width 19.2 % (11.6-14.8) H Platelet Count 201 K/UL (150-450) Mean Platelet Volume 5.9 FL (6.5-10.1) L Neutrophils (%) (Auto) 66.6 % (45.0-75.0) Lymphocytes (%) (Auto) 17.5 % (20.0-45.0) L Monocytes (%) (Auto) 12.4 % (1.0-10.0) H Eosinophils (%) (Auto) 2.6 % (0.0-3.0) Basophils (%) (Auto) 0.9 % (0.0-2.0) Sodium Level 138 MMOL/L (136-145) Potassium Level 3.8 MMOL/L (3.5-5.1) Chloride Level 100 MMOL/L (98-107) Carbon Dioxide Level 33 MMOL/L (21-32) H Anion Gap 5 mmol/L (5-15) Blood Urea Nitrogen 27 mg/dL (7-18) H Creatinine 1.5 MG/DL (0.55-1.30) H Estimat Glomerular Filtration Rate 57.1 mL/min (>60) Glucose Level 82 MG/DL (74-106) Calcium Level 8.6 MG/DL (8.5-10.1) Total Bilirubin 1.8 MG/DL (0.2-1.0) H Direct Bilirubin 0.8 MG/DL (0.0-0.3) H Aspartate Amino Transf (AST/SGOT) 22 U/L (15-37) Alanine Aminotransferase (ALT/SGPT) 19 U/L (12-78) Alkaline Phosphatase 96 U/L (46-116) Total Protein 7.5 G/DL (6.4-8.2) Albumin 3.1 G/DL (3.4-5.0) L Globulin 4.4 g/dL Albumin/Globulin Ratio 0.7 (1.0-2.7) L Height (Feet): 5 Height (Inches): 9.00 Weight (Pounds): 158 General Appearance: WD/WN, no apparent distress, alert Cardiovascular: normal rate Respiratory/Chest: normal breath sounds, no respiratory distress Abdominal Exam: normal bowel sounds, non tender, soft Extremities: normal range of motion, non-tender Kiarra Bird NP Feb 06, 2018 11:52
--- NOTE | 2018-02-06 13:16 | Nephrology Progress Note ---
Assessment/Plan Problem List: (1) Acute renal failure (ARF) Assessment: Cr lowering (2) EF < 20% (3) Cardiomyopathy due to hypertension, with heart failure (4) Hypothyroidism Assessment in [place] now Remains on dobutamine Abdominal pain Cardiomyopathy due to hypertension, with heart failure and Hypotension EF < 20% Chronic pain ARIS (acute kidney injury) due to cardiac and liver disease and low bp Hep C and Cirrhosis HypoThyroidism Cannabis abuse Plan Optimize cardiac status Dobutamin ? Midodrine Synthroid IV monitor renal parameters poor prognosis due to sever cardiac disease avoid nephrotoxics suggest re eval code status Per orders Subjective ROS Limited/Unobtainable: No Constitutional: Reports: malaise Objective Objective Last 24 Hour Vital Signs Date Time Temp Pulse Resp B/P (MAP) Pulse Ox O2 Delivery O2 Flow Rate FiO2 02/06/18 09:08 127/85 02/06/18 08:52 70 02/06/18 04:00 97.7 83 17 127/85 (99) 100 97.7 02/06/18 04:00 Room Air 02/06/18 03:42 72 02/06/18 01:00 120/74 02/06/18 00:00 97.8 67 17 120/74 (89) 99 97.8 02/06/18 00:00 Room Air 02/05/18 23:31 70 02/05/18 20:00 97.7 70 18 117/76 (90) 99 97.7 02/05/18 20:00 117/76 02/05/18 20:00 Room Air 02/05/18 19:08 97.7 02/05/18 19:07 70 02/05/18 18:45 97.7 02/05/18 18:38 97.7 02/05/18 18:33 100/70 02/05/18 17:46 97.7 02/05/18 16:06 108/77 02/05/18 16:00 Room Air 02/05/18 16:00 70 02/05/18 16:00 97.7 70 15 108/77 (87) 97 97.7 02/05/18 16:00 108/77 Intake and Output 02/05/18 02/06/18 19:00 07:00 Intake Total 1793.065 ml 339.480 ml Output Total 875 ml 1600 ml Balance 918.065 ml -1260.520 ml Intake Oral 1500 ml 60 ml IV Total 293.065 ml 279.480 ml Output Urine Total 875 ml 1600 ml # Voids 4 7 Laboratory Tests 02/06/18 04:00: White Blood Count 3.6L, Red Blood Count 4.61L, Hemoglobin 11.7L, Hematocrit 38.8L, Mean Corpuscular Volume 84, Mean Corpuscular Hemoglobin 25.4L, Mean Corpuscular Hemoglobin Concent 30.2L, Red Cell Distribution Width 19.2H, Platelet Count 201, Mean Platelet Volume 5.9L, Neutrophils (%) (Auto) 66.6, Lymphocytes (%) (Auto) 17.5L, Monocytes (%) (Auto) 12.4H, Eosinophils (%) (Auto ) 2.6, Basophils (%) (Auto) 0.9, Sodium Level 138, Potassium Level 3.8, Chloride Level 100, Carbon Dioxide Level 33H, Anion Gap 5, Blood Urea Nitrogen 27H, Creatinine 1.5H, Estimat Glomerular Filtration Rate 57.1, Glucose Level 82 , Calcium Level 8.6, Total Bilirubin 1.8H, Direct Bilirubin 0.8H, Aspartate Amino Transf (AST/SGOT) 22, Alanine Aminotransferase (ALT/SGPT) 19, Alkaline Phosphatase 96, Total Protein 7.5, Albumin 3.1L, Globulin 4.4, Albumin/Globulin Ratio 0.7L Height (Feet): 5 Height (Inches): 9.00 Weight (Pounds): 158 General Appearance: no apparent distress Cardiovascular: normal rate Respiratory/Chest: decreased breath sounds Abdomen: soft Objective no change Blaine Foss MD Feb 06, 2018 13:16
--- NOTE | 2018-02-06 14:05 | General Progress Note ---
Assessment/Plan Problem List: (1) Cirrhosis ICD Codes: K74.60 - Unspecified cirrhosis of liver SNOMED: 43463625 (2) ACS (acute coronary syndrome) ICD Codes: I24.9 - Acute coronary syndrome SNOMED: 754585090 (3) Cirrhosis ICD Codes: K74.60 - Cirrhosis SNOMED: 30387606 (4) CHF (congestive heart failure) ICD Codes: I50.9 - Heart failure, unspecified SNOMED: 50759177 (5) ARIS (acute kidney injury) ICD Codes: N17.9 - Acute kidney failure, unspecified SNOMED: 08104785 Status: stable, progressing Assessment/Plan ot pt diet pain control cbc bmp am Subjective Constitutional: Reports: weakness Allergies: Coded Allergies: HYDROMORPHONE (Verified Allergy, Unknown, 12/28/10) All Systems: reviewed and negative except above Subjective calm in bed Objective Last 24 Hour Vital Signs Date Time Temp Pulse Resp B/P (MAP) Pulse Ox O2 Delivery O2 Flow Rate FiO2 02/06/18 12:00 Room Air 02/06/18 12:00 97.3 70 20 116/79 (91) 100 97.3 02/06/18 09:08 127/85 02/06/18 08:52 70 02/06/18 08:00 70 02/06/18 08:00 Room Air 02/06/18 08:00 97.5 70 22 96/62 (73) 100 97.5 02/06/18 04:00 97.7 83 17 127/85 (99) 100 97.7 02/06/18 04:00 Room Air 02/06/18 03:42 72 02/06/18 01:00 120/74 02/06/18 00:00 97.8 67 17 120/74 (89) 99 97.8 02/06/18 00:00 Room Air 02/05/18 23:31 70 02/05/18 20:00 97.7 70 18 117/76 (90) 99 97.7 02/05/18 20:00 117/76 02/05/18 20:00 Room Air 02/05/18 19:08 97.7 02/05/18 19:07 70 02/05/18 18:45 97.7 02/05/18 18:38 97.7 02/05/18 18:33 100/70 02/05/18 17:46 97.7 02/05/18 16:06 108/77 02/05/18 16:00 Room Air 02/05/18 16:00 70 02/05/18 16:00 97.7 70 15 108/77 (87) 97 97.7 02/05/18 16:00 108/77 Intake and Output 02/05/18 02/06/18 19:00 07:00 Intake Total 1793.065 ml 339.480 ml Output Total 875 ml 1600 ml Balance 918.065 ml -1260.520 ml Intake Oral 1500 ml 60 ml IV Total 293.065 ml 279.480 ml Output Urine Total 875 ml 1600 ml # Voids 4 7 Laboratory Tests 02/06/18 04:00: White Blood Count 3.6L, Red Blood Count 4.61L, Hemoglobin 11.7L, Hematocrit 38.8L, Mean Corpuscular Volume 84, Mean Corpuscular Hemoglobin 25.4L, Mean Corpuscular Hemoglobin Concent 30.2L, Red Cell Distribution Width 19.2H, Platelet Count 201, Mean Platelet Volume 5.9L, Neutrophils (%) (Auto) 66.6, Lymphocytes (%) (Auto) 17.5L, Monocytes (%) (Auto) 12.4H, Eosinophils (%) (Auto ) 2.6, Basophils (%) (Auto) 0.9, Sodium Level 138, Potassium Level 3.8, Chloride Level 100, Carbon Dioxide Level 33H, Anion Gap 5, Blood Urea Nitrogen 27H, Creatinine 1.5H, Estimat Glomerular Filtration Rate 57.1, Glucose Level 82 , Calcium Level 8.6, Total Bilirubin 1.8H, Direct Bilirubin 0.8H, Aspartate Amino Transf (AST/SGOT) 22, Alanine Aminotransferase (ALT/SGPT) 19, Alkaline Phosphatase 96, Total Protein 7.5, Albumin 3.1L, Globulin 4.4, Albumin/Globulin Ratio 0.7L Height (Feet): 5 Height (Inches): 9.00 Weight (Pounds): 158 General Appearance: lethargic EENT: normal ENT inspection Neck: normal alignment Cardiovascular: normal peripheral pulses, normal rate, regular rhythm Respiratory/Chest: chest wall non-tender, decreased breath sounds Abdomen: normal bowel sounds, non tender, soft Extremities: normal inspection Edema: no edema noted Arm (L), no edema noted Arm (R), no edema noted Leg (L), no edema noted Leg (R), no edema noted Pedal (L), no edema noted Pedal (R), no edema noted Generalized Neurologic: responsive, motor weakness Skin: normal pigmentation, warm/dry Shahid Cherry DO Feb 06, 2018 14:05
--- NOTE | 2018-02-06 16:01 | Cardiac Electrophysiology PN ---
Assessment/Plan Assessment/Plan 1. Status post [facility] upgraded to biventricular defibrillator by me in September 2017. ( BIV device. No LV lead. Awaiting Pericardial lead placement when stable) The patient also has a new right ventricular lead as the old lead was broken. The patient is 100% V-paced. 2. Paroxysmal atrial fibrillation, status post one Cryoablation and one radiofrequency ablation by me at [facility]. The patient is already on Xarelto and digoxin. 3. Congestive heart failure. On Dopamine and Dobutamine.Change Lasix to 40 iv bid. Resume Coreg after off Dobutamine Decrease Dobutamine to 3 mcg Subjective Subjective Still on Dobutamine 4 and Dopamine 2 mc/kg/min Objective Last 24 Hour Vital Signs Date Time Temp Pulse Resp B/P (MAP) Pulse Ox O2 Delivery O2 Flow Rate FiO2 02/06/18 12:00 Room Air 02/06/18 12:00 97.3 70 20 116/79 (91) 100 97.3 02/06/18 09:08 127/85 02/06/18 08:52 70 02/06/18 08:00 70 02/06/18 08:00 Room Air 02/06/18 08:00 97.5 70 22 96/62 (73) 100 97.5 02/06/18 04:00 97.7 83 17 127/85 (99) 100 97.7 02/06/18 04:00 Room Air 02/06/18 03:42 72 02/06/18 01:00 120/74 02/06/18 00:00 97.8 67 17 120/74 (89) 99 97.8 02/06/18 00:00 Room Air 02/05/18 23:31 70 02/05/18 20:00 97.7 70 18 117/76 (90) 99 97.7 02/05/18 20:00 117/76 02/05/18 20:00 Room Air 02/05/18 19:08 97.7 02/05/18 19:07 70 02/05/18 18:45 97.7 02/05/18 18:38 97.7 02/05/18 18:33 100/70 02/05/18 17:46 97.7 02/05/18 16:06 108/77 Intake and Output 02/05/18 02/06/18 19:00 07:00 Intake Total 1793.065 ml 339.480 ml Output Total 875 ml 1600 ml Balance 918.065 ml -1260.520 ml Intake Oral 1500 ml 60 ml IV Total 293.065 ml 279.480 ml Output Urine Total 875 ml 1600 ml # Voids 4 7 Laboratory Tests Test 02/06/18 04:00 White Blood Count 3.6 K/UL (4.8-10.8) L Red Blood Count 4.61 M/UL (4.70-6.10) L Hemoglobin 11.7 G/DL (14.2-18.0) L Hematocrit 38.8 % (42.0-52.0) L Mean Corpuscular Volume 84 FL (80-99) Mean Corpuscular Hemoglobin 25.4 PG (27.0-31.0) L Mean Corpuscular Hemoglobin Concent 30.2 G/DL (32.0-36.0) L Red Cell Distribution Width 19.2 % (11.6-14.8) H Platelet Count 201 K/UL (150-450) Mean Platelet Volume 5.9 FL (6.5-10.1) L Neutrophils (%) (Auto) 66.6 % (45.0-75.0) Lymphocytes (%) (Auto) 17.5 % (20.0-45.0) L Monocytes (%) (Auto) 12.4 % (1.0-10.0) H Eosinophils (%) (Auto) 2.6 % (0.0-3.0) Basophils (%) (Auto) 0.9 % (0.0-2.0) Sodium Level 138 MMOL/L (136-145) Potassium Level 3.8 MMOL/L (3.5-5.1) Chloride Level 100 MMOL/L (98-107) Carbon Dioxide Level 33 MMOL/L (21-32) H Anion Gap 5 mmol/L (5-15) Blood Urea Nitrogen 27 mg/dL (7-18) H Creatinine 1.5 MG/DL (0.55-1.30) H Estimat Glomerular Filtration Rate 57.1 mL/min (>60) Glucose Level 82 MG/DL (74-106) Calcium Level 8.6 MG/DL (8.5-10.1) Total Bilirubin 1.8 MG/DL (0.2-1.0) H Direct Bilirubin 0.8 MG/DL (0.0-0.3) H Aspartate Amino Transf (AST/SGOT) 22 U/L (15-37) Alanine Aminotransferase (ALT/SGPT) 19 U/L (12-78) Alkaline Phosphatase 96 U/L (46-116) Total Protein 7.5 G/DL (6.4-8.2) Albumin 3.1 G/DL (3.4-5.0) L Globulin 4.4 g/dL Albumin/Globulin Ratio 0.7 (1.0-2.7) L Objective HEAD AND NECK: Positive JVD. LUNGS: Shows coarse rhonchi. CARDIOVASCULAR: Shows regular S1 and S2 with no murmur or gallop. Defibrillator is in the left subclavian. ABDOMEN: Soft, no ascites. EXTREMITIES: 1+ pitting edema. Rc Zhang MD Feb 06, 2018 16:01
[2018-02-06] MEDS: DOPamine 400mg/250ml 250 ML IV SCH (16:15)
[2018-02-06] MEDS ORDERED: Lidocaine 1% Plain 30 ml INJ ONE (16:15)
[2018-02-06] MEDS ORDERED: Heparin 2000 units/Ns 1000ml INJ PRN (16:23)
--- NOTE | 2018-02-06 17:47 | Diagnostic Imaging Report ---
EXAM: XR Chest, 1 View CLINICAL HISTORY: LINE TECHNIQUE: Frontal view of the chest. COMPARISON: No relevant prior studies available. FINDINGS: Lungs: No confluent consolidation. Pleural space: Unremarkable. No pneumothorax. Heart: Cardiomegaly. Pacemaker/AICD. Bones/joints: No acute fracture. Tubes, lines and devices: Difficult to visualize the tip of the right PICC line, probably in the SVC. IMPRESSION: Difficult to visualize the tip of the right PICC line, probably in the SVC.
[2018-02-06] MEDS: Dyna-Hex 2% Top Sol 2oz TOPIC SCH (20:14)
--- NOTE | 2018-02-06 23:50 | Cardiology Progress Note ---
Assessment/Plan Assessment/Plan 1. Hypotension, most likely due to hypoalbuminemia, continue dopamine and dobutamine drips. 2. Chronic systolic CHF, hypotensive, will resume heart failure regimen once BP is more stable and he is off drips. 3. Persistent atrial fibrillation, hx of RFA and cryoablation, on Xarelto. 4. s/p upgrade of PPM to SKETCH LINER/D, not functional due to A.fib. 5. Liver cirrhosis with portal HTN 6. HCV Subjective Subjective Atrial fibrillation at 66. On combination of dobutamine and dopamine. Objective Last 24 Hour Vital Signs Date Time Temp Pulse Resp B/P (MAP) Pulse Ox O2 Delivery O2 Flow Rate FiO2 02/06/18 20:53 71 02/06/18 20:00 98.0 68 20 132/75 (94) 100 98.0 02/06/18 18:29 116/79 02/06/18 16:15 116/79 02/06/18 16:00 97.9 70 20 108/74 (85) 100 97.9 02/06/18 16:00 Room Air 02/06/18 16:00 71 02/06/18 12:01 Room Air 02/06/18 12:00 97.3 70 20 116/79 (91) 100 97.3 02/06/18 12:00 70 02/06/18 09:08 127/85 02/06/18 08:52 70 02/06/18 08:00 70 02/06/18 08:00 Room Air 02/06/18 08:00 97.5 70 22 96/62 (73) 100 97.5 02/06/18 04:00 97.7 83 17 127/85 (99) 100 97.7 02/06/18 04:00 Room Air 02/06/18 03:42 72 02/06/18 01:00 120/74 02/06/18 00:00 97.8 67 17 120/74 (89) 99 97.8 02/06/18 00:00 Room Air Intake and Output 02/05/18 02/06/18 19:00 07:00 Intake Total 1793.065 ml 339.480 ml Output Total 875 ml 1600 ml Balance 918.065 ml -1260.520 ml Intake Oral 1500 ml 60 ml IV Total 293.065 ml 279.480 ml Output Urine Total 875 ml 1600 ml # Voids 4 7 2D Echo: Four Chamber DCM, EF 20%, RAP 20 mmHg, RVSP 90 mmHg, Mod MR Laboratory Tests Test 02/06/18 04:00 White Blood Count 3.6 K/UL (4.8-10.8) L Red Blood Count 4.61 M/UL (4.70-6.10) L Hemoglobin 11.7 G/DL (14.2-18.0) L Hematocrit 38.8 % (42.0-52.0) L Mean Corpuscular Volume 84 FL (80-99) Mean Corpuscular Hemoglobin 25.4 PG (27.0-31.0) L Mean Corpuscular Hemoglobin Concent 30.2 G/DL (32.0-36.0) L Red Cell Distribution Width 19.2 % (11.6-14.8) H Platelet Count 201 K/UL (150-450) Mean Platelet Volume 5.9 FL (6.5-10.1) L Neutrophils (%) (Auto) 66.6 % (45.0-75.0) Lymphocytes (%) (Auto) 17.5 % (20.0-45.0) L Monocytes (%) (Auto) 12.4 % (1.0-10.0) H Eosinophils (%) (Auto) 2.6 % (0.0-3.0) Basophils (%) (Auto) 0.9 % (0.0-2.0) Sodium Level 138 MMOL/L (136-145) Potassium Level 3.8 MMOL/L (3.5-5.1) Chloride Level 100 MMOL/L (98-107) Carbon Dioxide Level 33 MMOL/L (21-32) H Anion Gap 5 mmol/L (5-15) Blood Urea Nitrogen 27 mg/dL (7-18) H Creatinine 1.5 MG/DL (0.55-1.30) H Estimat Glomerular Filtration Rate 57.1 mL/min (>60) Glucose Level 82 MG/DL (74-106) Calcium Level 8.6 MG/DL (8.5-10.1) Total Bilirubin 1.8 MG/DL (0.2-1.0) H Direct Bilirubin 0.8 MG/DL (0.0-0.3) H Aspartate Amino Transf (AST/SGOT) 22 U/L (15-37) Alanine Aminotransferase (ALT/SGPT) 19 U/L (12-78) Alkaline Phosphatase 96 U/L (46-116) Total Protein 7.5 G/DL (6.4-8.2) Albumin 3.1 G/DL (3.4-5.0) L Globulin 4.4 g/dL Albumin/Globulin Ratio 0.7 (1.0-2.7) L Objective GENERAL: Alert and oriented, NAD, on Levophed gtt at 1.5 mcg HEENT: Atraumatic and normocephalic. Anicteric. Pupils are equal, round, and reactive to light and accommodation. Extraocular muscles intact. NECK: JVP >15cm. No carotid bruits. CARDIOVASCULAR: Normal S1, S2. Irregular rate and rhythm. 2/6 MSM, no gallops or rubs. LUNGS: Clear to auscultation bilaterally. ABDOMEN: Soft, nontender, and nondistended. No hepatosplenomegaly. Positive bowel sounds. EXTREMITIES: No evidence of edema, clubbing, or cyanosis. Rc Flower MD Feb 06, 2018 23:50
[2018-02-07] VITALS (21 sets, daily range): BP systolic 98–125; BP diastolic 61–90
[2018-02-07] MEDS: oxyCODONE 5mg IR tab ORAL PRN ×3 (00:46→23:00)
[2018-02-07] MEDS: Midodrine 10mg tab ORAL SCH ×3 (00:59→17:29)
[2018-02-07] MEDS: DOBUTamine 250mg/250ml Premix 250 ML IV SCH ×4 (03:37→15:37)
[2018-02-07 04:35] LABS: EOSINOPHILS % (AUTO) 2.3 % (0.0-3.0); HEMATOCRIT 39.1 % (42.0-52.0); HEMOGLOBIN 12.1 G/DL (14.2-18.0); LYMPHOCYTES % (AUTO) 15.5 % (20.0-45.0); MEAN CORPUSCULAR VOLUME 83 FL (80-99); MONOCYTES % (AUTO) 10.8 % (1.0-10.0); NEUTROPHILS % (AUTO) 70.4 % (45.0-75.0); PLATELET COUNT 202 K/UL (150-450); RED BLOOD COUNT 4.69 M/UL (4.70-6.10); RED CELL DISTRIBUTION WIDTH 19.5 % (11.6-14.8); WHITE BLOOD COUNT 3.9 K/UL (4.8-10.8)
[2018-02-07 05:02] LABS: ALANINE AMINOTRANSFERASE 21 U/L (12-78); ALBUMIN 3.3 G/DL (3.4-5.0); ALBUMIN/GLOBULIN RATIO 0.7 (1.0-2.7); ALKALINE PHOSPHATASE 102 U/L (46-116); ANION GAP 6 mmol/L (5-15); ASPARTATE AMINO TRANSFERASE 25 U/L (15-37); BILIRUBIN,DIRECT 0.8 MG/DL (0.0-0.3); BILIRUBIN,TOTAL 1.5 MG/DL (0.2-1.0); BLOOD UREA NITROGEN 23 mg/dL (7-18); CARBON DIOXIDE 35 MMOL/L (21-32); CHLORIDE 97 MMOL/L (98-107); CREATININE 1.6 MG/DL (0.55-1.30); POTASSIUM 3.9 MMOL/L (3.5-5.1); SODIUM 137 MMOL/L (136-145)
[2018-02-07] MEDS: DOPamine 400mg/250ml 250 ML IV SCH (07:04)
[2018-02-07] MEDS: Spironolactone 25mg tab ORAL SCH (09:17)
[2018-02-07] MEDS: Xarelto 15mg tab ORAL SCH (09:18)
[2018-02-07] MEDS: Digoxin 0.125mg tab ORAL SCH (09:18)
--- NOTE | 2018-02-07 10:39 | Nephrology Progress Note ---
Assessment/Plan Problem List: (1) Acute renal failure (ARF) Assessment: Cr lowering (2) EF < 20% (3) Cardiomyopathy due to hypertension, with heart failure (4) Hypothyroidism Assessment in [place] now Remains on dobutamine Abdominal pain Cardiomyopathy due to hypertension, with heart failure and Hypotension EF < 20% Chronic pain ARIS (acute kidney injury) due to cardiac and liver disease and low bp Hep C and Cirrhosis HypoThyroidism Cannabis abuse Plan Optimize cardiac status icrease Digoxin Dobutamin Midodrine Synthroid IV monitor renal parameters poor prognosis due to sever cardiac disease avoid nephrotoxics suggest re eval code status Per orders Subjective ROS Limited/Unobtainable: No Constitutional: Reports: other - no SOB Objective Objective Last 24 Hour Vital Signs Date Time Temp Pulse Resp B/P (MAP) Pulse Ox O2 Delivery O2 Flow Rate FiO2 02/07/18 10:00 20 124/84 (97) 02/07/18 09:18 83 02/07/18 09:17 74 20 124/82 (96) 02/07/18 07:58 97.6 75 18 125/66 (85) 100 97.6 02/07/18 07:04 111/76 02/07/18 06:00 111/76 02/07/18 06:00 97.5 90 16 111/76 (88) 100 97.5 02/07/18 05:00 97.5 74 16 122/74 (90) 100 97.5 02/07/18 05:00 122/74 02/07/18 04:00 97.5 71 16 111/81 (91) 99 97.5 02/07/18 04:00 76 02/07/18 04:00 Room Air 02/07/18 04:00 111/81 02/07/18 03:37 98/61 02/07/18 03:00 98/61 02/07/18 03:00 98.0 70 16 98/61 (73) 100 98.0 02/07/18 02:00 100/77 02/07/18 02:00 98.6 74 18 100/77 (85) 100 98.6 02/07/18 01:00 98.7 72 16 118/78 (91) 100 98.7 02/07/18 01:00 118/78 02/07/18 00:00 72 02/07/18 00:00 123/74 02/07/18 00:00 98.7 78 16 123/74 (90) 100 98.7 02/07/18 00:00 Room Air 02/06/18 23:00 97.8 73 20 134/77 (96) 100 97.8 02/06/18 23:00 134/77 02/06/18 20:53 71 02/06/18 20:00 132/75 02/06/18 20:00 Room Air 02/06/18 20:00 98.0 68 20 132/75 (94) 100 98.0 02/06/18 18:29 116/79 02/06/18 16:15 116/79 02/06/18 16:00 97.9 70 20 108/74 (85) 100 97.9 02/06/18 16:00 Room Air 02/06/18 16:00 71 02/06/18 12:01 Room Air 02/06/18 12:00 97.3 70 20 116/79 (91) 100 97.3 02/06/18 12:00 70 Intake and Output 02/06/18 02/07/18 19:00 07:00 Intake Total 1493.9 ml 673.94 ml Output Total 2351 ml 850 ml Balance -857.1 ml -176.06 ml Intake Oral 1415 ml 480 ml IV Total 78.9 ml 193.94 ml Output Urine Total 2350 ml 850 ml Stool Total 1 ml # Bowel Movements 1 Laboratory Tests 02/07/18 04:00: White Blood Count 3.9L, Red Blood Count 4.69L, Hemoglobin 12.1L, Hematocrit 39.1L, Mean Corpuscular Volume 83, Mean Corpuscular Hemoglobin 25.8L, Mean Corpuscular Hemoglobin Concent 30.9L, Red Cell Distribution Width 19.5H, Platelet Count 202, Mean Platelet Volume 5.8L, Neutrophils (%) (Auto) 70.4, Lymphocytes (%) (Auto) 15.5L, Monocytes (%) (Auto) 10.8H, Eosinophils (%) (Auto ) 2.3, Basophils (%) (Auto) 1.0, Sodium Level 137, Potassium Level 3.9, Chloride Level 97L, Carbon Dioxide Level 35H, Anion Gap 6, Blood Urea Nitrogen 23H, Creatinine 1.6H, Estimat Glomerular Filtration Rate 53.0, Glucose Level 104 , Calcium Level 9.0, Total Bilirubin 1.5H, Direct Bilirubin 0.8H, Aspartate Amino Transf (AST/SGOT) 25, Alanine Aminotransferase (ALT/SGPT) 21, Alkaline Phosphatase 102, Total Protein 7.9, Albumin 3.3L, Globulin 4.6, Albumin/ Globulin Ratio 0.7L, Digoxin Level [Pending] Height (Feet): 5 Height (Inches): 9.00 Weight (Pounds): 159 General Appearance: no apparent distress Cardiovascular: normal rate Respiratory/Chest: lungs clear Abdomen: soft Objective no change Blaine Foss MD Feb 07, 2018 10:39
--- NOTE | 2018-02-07 10:42 | Pulmonology Progress Note ---
Assessment/Plan Problems: (1) ARIS (acute kidney injury) (2) ACS (acute coronary syndrome) (3) ICD (implantable cardioverter-defibrillator) in place (4) Emphysema lung (5) Cirrhosis (6) Hepatitis C (7) Lumbar radiculopathy (8) EF < 20% (9) Ascites Assessment/Plan doing better still on dobutamine and dopamine drip CXr reviewed, no pulmonary edema symptomatic treatment supportive care respiratory treatment titrate fio2 to sat of 92% pt is in better spirit Subjective ROS Limited/Unobtainable: No Constitutional: Reports: no symptoms HEENT: Repors: no symptoms Respiratory: Reports: no symptoms Allergies: Coded Allergies: HYDROMORPHONE (Verified Allergy, Unknown, 12/28/10) Objective Last 24 Hour Vital Signs Date Time Temp Pulse Resp B/P (MAP) Pulse Ox O2 Delivery O2 Flow Rate FiO2 02/07/18 10:00 20 124/84 (97) 02/07/18 09:18 83 02/07/18 09:17 74 20 124/82 (96) 02/07/18 07:58 97.6 75 18 125/66 (85) 100 97.6 02/07/18 07:04 111/76 02/07/18 06:00 111/76 02/07/18 06:00 97.5 90 16 111/76 (88) 100 97.5 02/07/18 05:00 97.5 74 16 122/74 (90) 100 97.5 02/07/18 05:00 122/74 02/07/18 04:00 97.5 71 16 111/81 (91) 99 97.5 02/07/18 04:00 76 02/07/18 04:00 Room Air 02/07/18 04:00 111/81 02/07/18 03:37 98/61 02/07/18 03:00 98/61 02/07/18 03:00 98.0 70 16 98/61 (73) 100 98.0 02/07/18 02:00 100/77 02/07/18 02:00 98.6 74 18 100/77 (85) 100 98.6 02/07/18 01:00 98.7 72 16 118/78 (91) 100 98.7 02/07/18 01:00 118/78 02/07/18 00:00 72 8/25/18 00:00 123/74 02/07/18 00:00 98.7 78 16 123/74 (90) 100 98.7 02/07/18 00:00 Room Air 02/06/18 23:00 97.8 73 20 134/77 (96) 100 97.8 02/06/18 23:00 134/77 02/06/18 20:53 71 02/06/18 20:00 132/75 02/06/18 20:00 Room Air 02/06/18 20:00 98.0 68 20 132/75 (94) 100 98.0 02/06/18 18:29 116/79 02/06/18 16:15 116/79 02/06/18 16:00 97.9 70 20 108/74 (85) 100 97.9 02/06/18 16:00 Room Air 02/06/18 16:00 71 02/06/18 12:01 Room Air 02/06/18 12:00 97.3 70 20 116/79 (91) 100 97.3 02/06/18 12:00 70 Intake and Output 02/06/18 02/07/18 19:00 07:00 Intake Total 1493.9 ml 673.94 ml Output Total 2351 ml 850 ml Balance -857.1 ml -176.06 ml Intake Oral 1415 ml 480 ml IV Total 78.9 ml 193.94 ml Output Urine Total 2350 ml 850 ml Stool Total 1 ml # Bowel Movements 1 General Appearance: WD/WN HEENT: normocephalic, atraumatic Respiratory/Chest: chest wall non-tender, lungs clear Cardiovascular: normal peripheral pulses, normal rate Abdomen: normal bowel sounds, soft, non tender Genitourinary: normal external genitalia Extremities: no cyanosis Skin: no ulcers 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 Lymphatic: no neck adenopathy, no groin adenopathy Laboratory Tests 02/07/18 04:00: White Blood Count 3.9L, Red Blood Count 4.69L, Hemoglobin 12.1L, Hematocrit 39.1L, Mean Corpuscular Volume 83, Mean Corpuscular Hemoglobin 25.8L, Mean Corpuscular Hemoglobin Concent 30.9L, Red Cell Distribution Width 19.5H, Platelet Count 202, Mean Platelet Volume 5.8L, Neutrophils (%) (Auto) 70.4, Lymphocytes (%) (Auto) 15.5L, Monocytes (%) (Auto) 10.8H, Eosinophils (%) (Auto ) 2.3, Basophils (%) (Auto) 1.0, Sodium Level 137, Potassium Level 3.9, Chloride Level 97L, Carbon Dioxide Level 35H, Anion Gap 6, Blood Urea Nitrogen 23H, Creatinine 1.6H, Estimat Glomerular Filtration Rate 53.0, Glucose Level 104 , Calcium Level 9.0, Total Bilirubin 1.5H, Direct Bilirubin 0.8H, Aspartate Amino Transf (AST/SGOT) 25, Alanine Aminotransferase (ALT/SGPT) 21, Alkaline Phosphatase 102, Total Protein 7.9, Albumin 3.3L, Globulin 4.6, Albumin/ Globulin Ratio 0.7L, Digoxin Level 0.8 Current Medications Medications (Trade) Dose Ordered Sig/Allyn Route PRN Reason Start Time Stop Time Status Last Admin Dose Admin Allopurinol (Allopurinol) 300 mg DAILY ORAL 02/05/18 09:00 03/07/18 08:59 02/07/18 09:17 Bisacodyl (Dulcolax) 5 mg DAILYPRN PRN ORAL Constipation 02/05/18 09:00 03/07/18 08:59 02/05/18 20:29 Chlorhexidine Gluconate (Kalani-Hex 2%) 1 applic DAILY@2000 TOPIC 02/06/18 20:00 03/08/18 19:59 02/06/18 20:14 Digoxin (Lanoxin) 0.25 mg DAILY ORAL 02/08/18 09:00 03/10/18 08:59 Diphenhydramine HCl (Benadryl) 25 mg Q8H PRN IVP Itching 02/04/18 15:00 03/05/18 14:59 Dobutamine HCl 250 ml @ 12.906 mls/ hr Q11H IV 02/06/18 16:22 03/07/18 16:21 02/07/18 03:37 Furosemide (Lasix) 40 mg DAILY IV 02/08/18 09:00 03/07/18 20:59 Gabapentin (Neurontin) 100 mg BID ORAL 02/04/18 18:00 03/05/18 08:59 02/07/18 09:18 Heparin Sodium/ Sodium Chloride (Heparin 2000 units/Ns 1000ml premix) 2,000 unit ONCE PRN INJ PICC PLACEMENT 02/06/18 16:23 02/07/18 23:59 Levothyroxine Sodium (Synthroid) 50 mcg DAILY IV 02/05/18 09:00 03/06/18 11:59 02/07/18 09:53 Midodrine (Pro-Amatine) 10 mg Q8H ORAL 02/04/18 17:00 03/06/18 08:59 02/07/18 09:17 Multivitamins (Multivitamins) 1 tab DAILY ORAL 02/05/18 09:00 03/05/18 08:59 02/07/18 09:18 Ondansetron HCl (Zofran) 4 mg Q8H PRN IVP Nausea & Vomiting 02/04/18 18:45 03/05/18 18:44 Oxycodone HCl (Roxicodone) 10 mg Q4H PRN ORAL severe pain 02/06/18 09:30 02/10/18 15:29 02/07/18 07:54 Pantoprazole (Protonix) 40 mg DAILY ORAL 02/05/18 09:00 03/05/18 08:59 02/07/18 09:17 Rivaroxaban (Xarelto) 15 mg DAILY ORAL 02/05/18 09:00 03/05/18 08:59 02/07/18 09:18 Spironolactone (Aldactone) 25 mg DAILY ORAL 02/05/18 09:00 03/05/18 08:59 02/07/18 09:17 Tizanidine HCl (Zanaflex) 4 mg THREE TIMES A DAY ORAL 02/04/18 18:00 03/05/18 08:59 02/07/18 09:19 Andrzej Chavarria MD Feb 07, 2018 10:42
--- NOTE | 2018-02-07 11:01 | General Progress Note ---
Assessment/Plan Problem List: (1) Cirrhosis ICD Codes: K74.60 - Unspecified cirrhosis of liver SNOMED: 17728629 (2) ACS (acute coronary syndrome) ICD Codes: I24.9 - Acute coronary syndrome SNOMED: 271527772 (3) Cirrhosis ICD Codes: K74.60 - Cirrhosis SNOMED: 28258679 (4) CHF (congestive heart failure) ICD Codes: I50.9 - Heart failure, unspecified SNOMED: 38585305 (5) ARIS (acute kidney injury) ICD Codes: N17.9 - Acute kidney failure, unspecified SNOMED: 00376248 Status: stable, progressing Assessment/Plan ot pt diet pain control cbc bmp am Subjective Constitutional: Reports: weakness Respiratory: Reports: shortness of breath Allergies: Coded Allergies: HYDROMORPHONE (Verified Allergy, Unknown, 12/28/10) All Systems: reviewed and negative except above Subjective calm in bed Objective Last 24 Hour Vital Signs Date Time Temp Pulse Resp B/P (MAP) Pulse Ox O2 Delivery O2 Flow Rate FiO2 02/07/18 10:00 20 124/84 (97) 02/07/18 09:18 83 02/07/18 09:17 74 20 124/82 (96) 02/07/18 08:00 Room Air 02/07/18 07:58 97.6 75 18 125/66 (85) 100 97.6 02/07/18 07:04 111/76 02/07/18 06:00 111/76 02/07/18 06:00 97.5 90 16 111/76 (88) 100 97.5 02/07/18 05:00 97.5 74 16 122/74 (90) 100 97.5 02/07/18 05:00 122/74 02/07/18 04:00 97.5 71 16 111/81 (91) 99 97.5 02/07/18 04:00 76 02/07/18 04:00 Room Air 02/07/18 04:00 111/81 02/07/18 03:37 98/61 02/07/18 03:00 98/61 02/07/18 03:00 98.0 70 16 98/61 (73) 100 98.0 02/07/18 02:00 100/77 02/07/18 02:00 98.6 74 18 100/77 (85) 100 98.6 02/07/18 01:00 98.7 72 16 118/78 (91) 100 98.7 02/07/18 01:00 118/78 02/07/18 00:00 72 02/07/18 00:00 123/74 02/07/18 00:00 98.7 78 16 123/74 (90) 100 98.7 02/07/18 00:00 Room Air 02/06/18 23:00 97.8 73 20 134/77 (96) 100 97.8 02/06/18 23:00 134/77 02/06/18 20:53 71 02/06/18 20:00 132/75 02/06/18 20:00 Room Air 02/06/18 20:00 98.0 68 20 132/75 (94) 100 98.0 02/06/18 18:29 116/79 02/06/18 16:15 116/79 02/06/18 16:00 97.9 70 20 108/74 (85) 100 97.9 02/06/18 16:00 Room Air 02/06/18 16:00 71 02/06/18 12:01 Room Air 02/06/18 12:00 97.3 70 20 116/79 (91) 100 97.3 02/06/18 12:00 70 Intake and Output 02/06/18 02/07/18 19:00 07:00 Intake Total 1493.9 ml 673.94 ml Output Total 2351 ml 850 ml Balance -857.1 ml -176.06 ml Intake Oral 1415 ml 480 ml IV Total 78.9 ml 193.94 ml Output Urine Total 2350 ml 850 ml Stool Total 1 ml # Bowel Movements 1 Laboratory Tests 02/07/18 04:00: White Blood Count 3.9L, Red Blood Count 4.69L, Hemoglobin 12.1L, Hematocrit 39.1L, Mean Corpuscular Volume 83, Mean Corpuscular Hemoglobin 25.8L, Mean Corpuscular Hemoglobin Concent 30.9L, Red Cell Distribution Width 19.5H, Platelet Count 202, Mean Platelet Volume 5.8L, Neutrophils (%) (Auto) 70.4, Lymphocytes (%) (Auto) 15.5L, Monocytes (%) (Auto) 10.8H, Eosinophils (%) (Auto ) 2.3, Basophils (%) (Auto) 1.0, Sodium Level 137, Potassium Level 3.9, Chloride Level 97L, Carbon Dioxide Level 35H, Anion Gap 6, Blood Urea Nitrogen 23H, Creatinine 1.6H, Estimat Glomerular Filtration Rate 53.0, Glucose Level 104 , Calcium Level 9.0, Total Bilirubin 1.5H, Direct Bilirubin 0.8H, Aspartate Amino Transf (AST/SGOT) 25, Alanine Aminotransferase (ALT/SGPT) 21, Alkaline Phosphatase 102, Total Protein 7.9, Albumin 3.3L, Globulin 4.6, Albumin/ Globulin Ratio 0.7L, Digoxin Level 0.8 Height (Feet): 5 Height (Inches): 9.00 Weight (Pounds): 159 General Appearance: lethargic EENT: normal ENT inspection Neck: normal alignment Cardiovascular: normal peripheral pulses, normal rate, regular rhythm Respiratory/Chest: chest wall non-tender, decreased breath sounds Abdomen: normal bowel sounds, non tender, soft Extremities: normal inspection Edema: no edema noted Arm (L), no edema noted Arm (R), no edema noted Leg (L), no edema noted Leg (R), no edema noted Pedal (L), no edema noted Pedal (R), no edema noted Generalized Neurologic: responsive, motor weakness Skin: normal pigmentation, warm/dry Shahid Cherry DO Feb 07, 2018 11:01
--- NOTE | 2018-02-07 14:42 | Cardiac Electrophysiology PN ---
Assessment/Plan Assessment/Plan 1. Status post [facility] ICD upgrade to biventricular defibrillator by me in September 2017. ( BIV device. No LV lead pending Pericardial lead placement when stable). The patient also has a new right ventricular lead as the old lead was broken. The patient is 100% V-paced. 2. Paroxysmal atrial fibrillation, status post one Cryoablation and one radiofrequency ablation by me at [facility]. The patient is already on Xarelto and digoxin. 3. Congestive heart failure. On Dobutamine. On Lasix to 40 iv bid and aldactone. Resume Coreg after off Dobutamine. Decrease Dobutamine to 2 mcg 4. Renal failure. Dopamine DCed per Dr Rojas Subjective Subjective On Dobutamine 3 and Dopamine was DCed. Feeling better.Has new PICC line via Right arm. Objective Last 24 Hour Vital Signs Date Time Temp Pulse Resp B/P (MAP) Pulse Ox O2 Delivery O2 Flow Rate FiO2 02/07/18 12:16 Room Air 02/07/18 12:00 96.4 76 20 123/90 (101) 100 96.4 02/07/18 10:00 20 124/84 (97) 02/07/18 09:18 83 02/07/18 09:17 74 20 124/82 (96) 02/07/18 08:00 Room Air 02/07/18 08:00 72 02/07/18 07:58 97.6 75 18 125/66 (85) 100 97.6 02/07/18 07:04 111/76 02/07/18 06:00 111/76 02/07/18 06:00 97.5 90 16 111/76 (88) 100 97.5 02/07/18 05:00 97.5 74 16 122/74 (90) 100 97.5 02/07/18 05:00 122/74 02/07/18 04:00 97.5 71 16 111/81 (91) 99 97.5 02/07/18 04:00 76 02/07/18 04:00 Room Air 02/07/18 04:00 111/81 02/07/18 03:37 98/61 02/07/18 03:00 98/61 02/07/18 03:00 98.0 70 16 98/61 (73) 100 98.0 02/07/18 02:00 100/77 02/07/18 02:00 98.6 74 18 100/77 (85) 100 98.6 02/07/18 01:00 98.7 72 16 118/78 (91) 100 98.7 02/07/18 01:00 118/78 02/07/18 00:00 72 02/07/18 00:00 123/74 02/07/18 00:00 98.7 78 16 123/74 (90) 100 98.7 02/07/18 00:00 Room Air 02/06/18 23:00 97.8 73 20 134/77 (96) 100 97.8 02/06/18 23:00 134/77 02/06/18 20:53 71 02/06/18 20:00 132/75 02/06/18 20:00 Room Air 02/06/18 20:00 98.0 68 20 132/75 (94) 100 98.0 02/06/18 18:29 116/79 02/06/18 16:15 116/79 02/06/18 16:00 97.9 70 20 108/74 (85) 100 97.9 02/06/18 16:00 Room Air 02/06/18 16:00 71 Intake and Output 02/06/18 02/07/18 19:00 07:00 Intake Total 1493.9 ml 673.94 ml Output Total 2351 ml 850 ml Balance -857.1 ml -176.06 ml Intake Oral 1415 ml 480 ml IV Total 78.9 ml 193.94 ml Output Urine Total 2350 ml 850 ml Stool Total 1 ml # Bowel Movements 1 Laboratory Tests Test 02/07/18 04:00 White Blood Count 3.9 K/UL (4.8-10.8) L Red Blood Count 4.69 M/UL (4.70-6.10) L Hemoglobin 12.1 G/DL (14.2-18.0) L Hematocrit 39.1 % (42.0-52.0) L Mean Corpuscular Volume 83 FL (80-99) Mean Corpuscular Hemoglobin 25.8 PG (27.0-31.0) L Mean Corpuscular Hemoglobin Concent 30.9 G/DL (32.0-36.0) L Red Cell Distribution Width 19.5 % (11.6-14.8) H Platelet Count 202 K/UL (150-450) Mean Platelet Volume 5.8 FL (6.5-10.1) L Neutrophils (%) (Auto) 70.4 % (45.0-75.0) Lymphocytes (%) (Auto) 15.5 % (20.0-45.0) L Monocytes (%) (Auto) 10.8 % (1.0-10.0) H Eosinophils (%) (Auto) 2.3 % (0.0-3.0) Basophils (%) (Auto) 1.0 % (0.0-2.0) Sodium Level 137 MMOL/L (136-145) Potassium Level 3.9 MMOL/L (3.5-5.1) Chloride Level 97 MMOL/L (98-107) L Carbon Dioxide Level 35 MMOL/L (21-32) H Anion Gap 6 mmol/L (5-15) Blood Urea Nitrogen 23 mg/dL (7-18) H Creatinine 1.6 MG/DL (0.55-1.30) H Estimat Glomerular Filtration Rate 53.0 mL/min (>60) Glucose Level 104 MG/DL (74-106) Calcium Level 9.0 MG/DL (8.5-10.1) Total Bilirubin 1.5 MG/DL (0.2-1.0) H Direct Bilirubin 0.8 MG/DL (0.0-0.3) H Aspartate Amino Transf (AST/SGOT) 25 U/L (15-37) Alanine Aminotransferase (ALT/SGPT) 21 U/L (12-78) Alkaline Phosphatase 102 U/L (46-116) Total Protein 7.9 G/DL (6.4-8.2) Albumin 3.3 G/DL (3.4-5.0) L Globulin 4.6 g/dL Albumin/Globulin Ratio 0.7 (1.0-2.7) L Digoxin Level 0.8 NG/ML (0.5-2.0) Objective HEAD AND NECK: Positive JVD. LUNGS: Shows coarse rhonchi. CARDIOVASCULAR: Shows regular S1 and S2 with no murmur or gallop. Defibrillator is in the left subclavian. ABDOMEN: Soft, no ascites. EXTREMITIES: 1+ pitting edema. Rc Zhang MD Feb 07, 2018 14:42
[2018-02-07] MEDS: Dyna-Hex 2% Top Sol 2oz TOPIC SCH (19:49)
--- NOTE | 2018-02-07 23:23 | Cardiology Progress Note ---
Assessment/Plan Assessment/Plan 1. Hypotension, most likely due to hypoalbuminemia, responded well to albumin admin and 250 cc NS IV bolus, off dopamine gtt, recommend tapering dobutamine off. 2. Chronic systolic CHF, all heart failure meds on hold due to hypotension. 3. Persistent atrial fibrillation, hx of RFA and cryoablation, on Xarelto. 4. s/p upgrade of PPM to INSULATION MANAGER/D. 5. Severe pulmonary HTN due to left sided heart failure. 6. Liver cirrhosis with portal HTN 7. HCV Subjective Subjective Atrial fibrillation at 68. Off dopamine gtt. Objective Last 24 Hour Vital Signs Date Time Temp Pulse Resp B/P (MAP) Pulse Ox O2 Delivery O2 Flow Rate FiO2 02/07/18 23:00 70 20 101/70 (80) 100 02/07/18 22:00 70 18 106/73 (84) 100 02/07/18 21:00 70 18 106/61 (76) 100 02/07/18 20:00 Room Air 02/07/18 20:00 97.5 70 18 120/76 (91) 96 97.5 02/07/18 19:04 70 02/07/18 18:00 70 20 117/78 (91) 100 02/07/18 17:26 70 20 119/86 (97) 100 02/07/18 16:16 97.8 70 18 107/69 (82) 100 97.8 02/07/18 16:00 Room Air 02/07/18 16:00 70 02/07/18 15:37 112/74 02/07/18 15:36 112/74 02/07/18 15:00 73 20 115/63 (80) 100 02/07/18 14:22 112/74 02/07/18 14:00 97.7 70 18 104/68 (80) 100 97.7 02/07/18 12:16 Room Air 02/07/18 12:00 70 02/07/18 12:00 96.4 76 20 123/90 (101) 100 96.4 02/07/18 10:00 20 124/84 (97) 02/07/18 09:18 83 02/07/18 09:17 74 20 124/82 (96) 02/07/18 08:00 Room Air 02/07/18 08:00 72 02/07/18 07:58 97.6 75 18 125/66 (85) 100 97.6 02/07/18 07:04 111/76 02/07/18 06:00 111/76 02/07/18 06:00 97.5 90 16 111/76 (88) 100 97.5 02/07/18 05:00 97.5 74 16 122/74 (90) 100 97.5 02/07/18 05:00 122/74 02/07/18 04:00 97.5 71 16 111/81 (91) 99 97.5 02/07/18 04:00 76 02/07/18 04:00 Room Air 02/07/18 04:00 111/81 02/07/18 03:37 98/61 02/07/18 03:00 98/61 02/07/18 03:00 98.0 70 16 98/61 (73) 100 98.0 02/07/18 02:00 100/77 02/07/18 02:00 98.6 74 18 100/77 (85) 100 98.6 02/07/18 01:00 98.7 72 16 118/78 (91) 100 98.7 02/07/18 01:00 118/78 02/07/18 00:00 72 02/07/18 00:00 123/74 02/07/18 00:00 98.7 78 16 123/74 (90) 100 98.7 02/07/18 00:00 Room Air Intake and Output 02/06/18 02/07/18 19:00 07:00 Intake Total 1493.9 ml 673.94 ml Output Total 2351 ml 850 ml Balance -857.1 ml -176.06 ml Intake Oral 1415 ml 480 ml IV Total 78.9 ml 193.94 ml Output Urine Total 2350 ml 850 ml Stool Total 1 ml # Bowel Movements 1 2D Echo: Four Chamber DCM, EF 20%, RAP 20 mmHg, RVSP 90 mmHg, Mod MR Laboratory Tests Test 02/07/18 04:00 White Blood Count 3.9 K/UL (4.8-10.8) L Red Blood Count 4.69 M/UL (4.70-6.10) L Hemoglobin 12.1 G/DL (14.2-18.0) L Hematocrit 39.1 % (42.0-52.0) L Mean Corpuscular Volume 83 FL (80-99) Mean Corpuscular Hemoglobin 25.8 PG (27.0-31.0) L Mean Corpuscular Hemoglobin Concent 30.9 G/DL (32.0-36.0) L Red Cell Distribution Width 19.5 % (11.6-14.8) H Platelet Count 202 K/UL (150-450) Mean Platelet Volume 5.8 FL (6.5-10.1) L Neutrophils (%) (Auto) 70.4 % (45.0-75.0) Lymphocytes (%) (Auto) 15.5 % (20.0-45.0) L Monocytes (%) (Auto) 10.8 % (1.0-10.0) H Eosinophils (%) (Auto) 2.3 % (0.0-3.0) Basophils (%) (Auto) 1.0 % (0.0-2.0) Sodium Level 137 MMOL/L (136-145) Potassium Level 3.9 MMOL/L (3.5-5.1) Chloride Level 97 MMOL/L (98-107) L Carbon Dioxide Level 35 MMOL/L (21-32) H Anion Gap 6 mmol/L (5-15) Blood Urea Nitrogen 23 mg/dL (7-18) H Creatinine 1.6 MG/DL (0.55-1.30) H Estimat Glomerular Filtration Rate 53.0 mL/min (>60) Glucose Level 104 MG/DL (74-106) Calcium Level 9.0 MG/DL (8.5-10.1) Total Bilirubin 1.5 MG/DL (0.2-1.0) H Direct Bilirubin 0.8 MG/DL (0.0-0.3) H Aspartate Amino Transf (AST/SGOT) 25 U/L (15-37) Alanine Aminotransferase (ALT/SGPT) 21 U/L (12-78) Alkaline Phosphatase 102 U/L (46-116) Total Protein 7.9 G/DL (6.4-8.2) Albumin 3.3 G/DL (3.4-5.0) L Globulin 4.6 g/dL Albumin/Globulin Ratio 0.7 (1.0-2.7) L Digoxin Level 0.8 NG/ML (0.5-2.0) Objective GENERAL: Alert and oriented, NAD, on Levophed gtt at 1.5 mcg HEENT: Atraumatic and normocephalic. Anicteric. Pupils are equal, round, and reactive to light and accommodation. Extraocular muscles intact. NECK: JVP >15cm. No carotid bruits. CARDIOVASCULAR: Normal S1, S2. Irregular rate and rhythm. 2/6 MSM, no gallops or rubs. LUNGS: Clear to auscultation bilaterally. ABDOMEN: Soft, nontender, and nondistended. No hepatosplenomegaly. Positive bowel sounds. EXTREMITIES: No evidence of edema, clubbing, or cyanosis. Rc Flower MD Feb 07, 2018 23:23
[2018-02-08] VITALS (16 sets, daily range): BP systolic 97–123; BP diastolic 60–84
[2018-02-08] MEDS: Midodrine 10mg tab ORAL SCH ×3 (00:57→17:43)
[2018-02-08] MEDS: DOBUTamine 250mg/250ml Premix 250 ML IV SCH ×3 (02:27→13:10)
[2018-02-08] MEDS: oxyCODONE 5mg IR tab ORAL PRN ×3 (03:02→22:30)
[2018-02-08 05:02] LABS: BASOPHILS % (AUTO) 2.1 % (0.0-2.0); EOSINOPHILS % (AUTO) 2.6 % (0.0-3.0); HEMATOCRIT 36.8 % (42.0-52.0); HEMOGLOBIN 11.1 G/DL (14.2-18.0); LYMPHOCYTES % (AUTO) 19.6 % (20.0-45.0); MEAN CORPUSCULAR VOLUME 84 FL (80-99); NEUTROPHILS % (AUTO) 66.7 % (45.0-75.0); PLATELET COUNT 198 K/UL (150-450); RED BLOOD COUNT 4.38 M/UL (4.70-6.10); RED CELL DISTRIBUTION WIDTH 19.9 % (11.6-14.8); WHITE BLOOD COUNT 4.1 K/UL (4.8-10.8)
[2018-02-08 05:18] LABS: ANION GAP 6 mmol/L (5-15); BLOOD UREA NITROGEN 17 mg/dL (7-18); CALCIUM 8.9 MG/DL (8.5-10.1); CARBON DIOXIDE 30 MMOL/L (21-32); CHLORIDE 98 MMOL/L (98-107); CREATININE 1.5 MG/DL (0.55-1.30); POTASSIUM 4.1 MMOL/L (3.5-5.1); SODIUM 134 MMOL/L (136-145)
[2018-02-08] MEDS: Spironolactone 25mg tab ORAL SCH (08:38)
[2018-02-08] MEDS: Xarelto 15mg tab ORAL SCH (08:38)
--- NOTE | 2018-02-08 10:07 | General Progress Note ---
Assessment/Plan Problem List: (1) Cirrhosis ICD Codes: K74.60 - Unspecified cirrhosis of liver SNOMED: 33941835 (2) ACS (acute coronary syndrome) ICD Codes: I24.9 - Acute coronary syndrome SNOMED: 758137133 (3) Cirrhosis ICD Codes: K74.60 - Cirrhosis SNOMED: 68461437 (4) CHF (congestive heart failure) ICD Codes: I50.9 - Heart failure, unspecified SNOMED: 63839671 (5) ARIS (acute kidney injury) ICD Codes: N17.9 - Acute kidney failure, unspecified SNOMED: 28365920 Status: stable, progressing Assessment/Plan ot pt diet pain control cbc bmp am dc plan w hh if clear by all Subjective Respiratory: Reports: shortness of breath Allergies: Coded Allergies: HYDROMORPHONE (Verified Allergy, Unknown, 12/28/10) All Systems: reviewed and negative except above Subjective calm in bed Objective Last 24 Hour Vital Signs Date Time Temp Pulse Resp B/P (MAP) Pulse Ox O2 Delivery O2 Flow Rate FiO2 02/08/18 08:37 71 02/08/18 08:19 Room Air 02/08/18 08:00 98.2 71 18 115/83 (94) 98 98.2 02/08/18 07:00 70 16 106/76 (86) 98 02/08/18 06:00 70 18 102/70 (81) 96 02/08/18 05:00 70 16 102/70 (81) 100 02/08/18 04:00 Room Air 02/08/18 04:00 97.5 70 18 111/63 (79) 100 97.5 02/08/18 03:32 70 02/08/18 03:00 70 16 103/68 (80) 100 02/08/18 02:27 123/60 02/08/18 02:00 70 16 123/60 (81) 100 02/08/18 01:00 70 20 102/62 (75) 100 02/08/18 00:00 Room Air 02/08/18 00:00 97.3 70 18 97/69 (78) 100 97.3 02/07/18 23:31 70 02/07/18 23:00 70 20 101/70 (80) 100 02/07/18 22:00 70 18 106/73 (84) 100 02/07/18 21:00 70 18 106/61 (76) 100 02/07/18 20:00 Room Air 02/07/18 20:00 97.5 70 18 120/76 (91) 96 97.5 02/07/18 19:04 70 02/07/18 18:00 70 20 117/78 (91) 100 02/07/18 17:26 70 20 119/86 (97) 100 02/07/18 16:16 97.8 70 18 107/69 (82) 100 97.8 02/07/18 16:00 Room Air 02/07/18 16:00 70 02/07/18 15:37 112/74 02/07/18 15:36 112/74 02/07/18 15:00 73 20 115/63 (80) 100 02/07/18 14:22 112/74 02/07/18 14:00 97.7 70 18 104/68 (80) 100 97.7 02/07/18 12:16 Room Air 02/07/18 12:00 70 02/07/18 12:00 96.4 76 20 123/90 (101) 100 96.4 Intake and Output 02/07/18 02/08/18 19:00 07:00 Intake Total 1349.591 ml 317.57 ml Output Total 1890 ml 510 ml Balance -540.409 ml -192.43 ml Intake Oral 1240 ml 220 ml IV Total 109.591 ml 97.57 ml Output Urine Total 1890 ml 510 ml # Voids 7 2 # Bowel Movements 1 Laboratory Tests 02/08/18 03:45: White Blood Count 4.1L, Red Blood Count 4.38L, Hemoglobin 11.1L, Hematocrit 36.8L, Mean Corpuscular Volume 84, Mean Corpuscular Hemoglobin 25.4L, Mean Corpuscular Hemoglobin Concent 30.2L, Red Cell Distribution Width 19.9H, Platelet Count 198, Mean Platelet Volume 5.5L, Neutrophils (%) (Auto) 66.7, Lymphocytes (%) (Auto) 19.6L, Monocytes (%) (Auto) 9.0, Eosinophils (%) (Auto) 2.6, Basophils (%) (Auto) 2.1H, Sodium Level 134L, Potassium Level 4.1, Chloride Level 98, Carbon Dioxide Level 30, Anion Gap 6, Blood Urea Nitrogen 17 , Creatinine 1.5H, Estimat Glomerular Filtration Rate 57.1, Glucose Level 141H, Calcium Level 8.9 Height (Feet): 5 Height (Inches): 9.00 Weight (Pounds): 159 General Appearance: lethargic EENT: normal ENT inspection Neck: normal alignment Cardiovascular: normal peripheral pulses, normal rate, regular rhythm Respiratory/Chest: chest wall non-tender, decreased breath sounds Abdomen: normal bowel sounds, non tender, soft Extremities: normal inspection Edema: no edema noted Arm (L), no edema noted Arm (R), no edema noted Leg (L), no edema noted Leg (R), no edema noted Pedal (L), no edema noted Pedal (R), no edema noted Generalized Neurologic: responsive, motor weakness Skin: normal pigmentation, warm/dry Shahid Cherry DO Feb 08, 2018 10:07
--- NOTE | 2018-02-08 11:20 | General Progress Note ---
Assessment/Plan Assessment/Plan (1) Lumbar degenerative disc disease (2) Lumbar spondylosis (3) Lumbar radiculopathy (4) Liver Cirrhosis (5) Abdominal pain Pt will be continued on Oxycodone. Pt was d/w Dr. Carson and he concurred. Subjective Date patient seen: Feb 08, 2018 Time patient seen: 09:45 - am Allergies: Coded Allergies: HYDROMORPHONE (Verified Allergy, Unknown, 12/28/10) Subjective Constitutional: Reports: weakness, Denies: chills, diaphoresis, fever, malaise , no symptoms, other HEENT: Denies: blurred vision, double vision, ear discharge, ear pain, eye pain , mouth pain, mouth swelling, no symptoms, nose congestion, nose pain, other, tearing, throat pain, throat swelling Cardiovascular: Denies: irregular heart rate, lightheadedness, no symptoms, other, palpitations, syncope Respiratory: Denies: SOB at rest, SOB with excertion, cough, no symptoms, orthopnea, other, shortness of breath, sputum, stridor, wheezing Gastrointestinal/Abdominal: Reports: abdominal pain, Denies: abdomen distended , black stools, blood in stool, constipated, diarrhea, difficulty swallowing, nausea, no symptoms, other, poor appetite, poor fluid intake, rectal bleeding, tarry stools, vomiting Genitourinary: Denies: burning, discharge, flank pain, frequency, hematuria, incontinence, no symptoms, other, pain, urgency Neurologic/Psychiatric: Reports: weakness, Denies: anxiety, depressed, emotional problems, headache, no symptoms, numbness, other, paresthesia, pre- existing deficit, seizure, tingling, tremors Endocrine: Denies: excessive sweating, flushing, increased hunger, increased thirst, increased urine, intolerance to cold, intolerance to heat, no symptoms, other, unexplained weight gain, unexplained weight loss Hematologic/Lymphatic: Denies: anemia, easy bleeding, easy bruising, no symptoms, other Subjective Patient reports that his pain has been tolerated on the Oxycodone. He has no new complaints. Objective Last 24 Hour Vital Signs Date Time Temp Pulse Resp B/P (MAP) Pulse Ox O2 Delivery O2 Flow Rate FiO2 02/08/18 10:26 72 20 122/77 (92) 100 02/08/18 08:37 71 02/08/18 08:19 Room Air 02/08/18 08:00 70 02/08/18 08:00 98.2 71 18 115/83 (94) 98 98.2 02/08/18 07:00 70 16 106/76 (86) 98 02/08/18 06:00 70 18 102/70 (81) 96 02/08/18 05:00 70 16 102/70 (81) 100 02/08/18 04:00 Room Air 02/08/18 04:00 97.5 70 18 111/63 (79) 100 97.5 02/08/18 03:32 70 02/08/18 03:00 70 16 103/68 (80) 100 02/08/18 02:27 123/60 02/08/18 02:00 70 16 123/60 (81) 100 02/08/18 01:00 70 20 102/62 (75) 100 02/08/18 00:00 Room Air 02/08/18 00:00 97.3 70 18 97/69 (78) 100 97.3 02/07/18 23:31 70 02/07/18 23:00 70 20 101/70 (80) 100 02/07/18 22:00 70 18 106/73 (84) 100 02/07/18 21:00 70 18 106/61 (76) 100 02/07/18 20:00 Room Air 02/07/18 20:00 97.5 70 18 120/76 (91) 96 97.5 02/07/18 19:04 70 02/07/18 18:00 70 20 117/78 (91) 100 02/07/18 17:26 70 20 119/86 (97) 100 02/07/18 16:16 97.8 70 18 107/69 (82) 100 97.8 02/07/18 16:00 Room Air 02/07/18 16:00 70 02/07/18 15:37 112/74 02/07/18 15:36 112/74 02/07/18 15:00 73 20 115/63 (80) 100 02/07/18 14:22 112/74 02/07/18 14:00 97.7 70 18 104/68 (80) 100 97.7 02/07/18 12:16 Room Air 02/07/18 12:00 70 02/07/18 12:00 96.4 76 20 123/90 (101) 100 96.4 Intake and Output 02/07/18 02/08/18 19:00 07:00 Intake Total 1349.591 ml 317.57 ml Output Total 1890 ml 510 ml Balance -540.409 ml -192.43 ml Intake Oral 1240 ml 220 ml IV Total 109.591 ml 97.57 ml Output Urine Total 1890 ml 510 ml # Voids 7 2 # Bowel Movements 1 Laboratory Tests 02/08/18 03:45: White Blood Count 4.1L, Red Blood Count 4.38L, Hemoglobin 11.1L, Hematocrit 36.8L, Mean Corpuscular Volume 84, Mean Corpuscular Hemoglobin 25.4L, Mean Corpuscular Hemoglobin Concent 30.2L, Red Cell Distribution Width 19.9H, Platelet Count 198, Mean Platelet Volume 5.5L, Neutrophils (%) (Auto) 66.7, Lymphocytes (%) (Auto) 19.6L, Monocytes (%) (Auto) 9.0, Eosinophils (%) (Auto) 2.6, Basophils (%) (Auto) 2.1H, Sodium Level 134L, Potassium Level 4.1, Chloride Level 98, Carbon Dioxide Level 30, Anion Gap 6, Blood Urea Nitrogen 17 , Creatinine 1.5H, Estimat Glomerular Filtration Rate 57.1, Glucose Level 141H, Uric Acid [Pending], Calcium Level 8.9, Phosphorus Level [Pending], Magnesium Level [Pending] Height (Feet): 5 Height (Inches): 9.00 Weight (Pounds): 159 Objective General Appearance: no apparent distress, alert EENT: normal ENT inspection, TMs normal Neck: normal alignment, supple Cardiovascular: normal rate, regular rhythm Respiratory/Chest: lungs clear, normal breath sounds Abdomen: tender, distended Extremities: non-tender Edema: edema noted in b/l LE Neurologic: alert, oriented x 3 Skin: warm/dry Luc Sanchez Feb 08, 2018 11:19
[2018-02-08 11:30] LABS: PHOSPHORUS 2.8 MG/DL (2.5-4.9)
[2018-02-08] MEDS ORDERED: Zolpidem 5mg tab ORAL PRN (12:00)
--- NOTE | 2018-02-08 12:27 | Nephrology Progress Note ---
Assessment/Plan Problem List: (1) Acute renal failure (ARF) Assessment: Cr lowering (2) EF < 20% (3) Cardiomyopathy due to hypertension, with heart failure (4) Hypothyroidism Assessment in [place] now Remains on dobutamine Abdominal pain Cardiomyopathy due to hypertension, with heart failure and Hypotension EF < 20% Chronic pain ARIS (acute kidney injury) due to cardiac and liver disease and low bp Hep C and Cirrhosis HypoThyroidism Cannabis abuse Plan change lasix to po extra digoxin- Optimize cardiac status taper Dobutamin Midodrine Synthroid IV monitor renal parameters poor prognosis due to sever cardiac disease avoid nephrotoxics suggest re eval code status Per orders Subjective ROS Limited/Unobtainable: No Constitutional: Reports: malaise Objective Objective Last 24 Hour Vital Signs Date Time Temp Pulse Resp B/P (MAP) Pulse Ox O2 Delivery O2 Flow Rate FiO2 02/08/18 11:50 70 02/08/18 10:26 72 20 122/77 (92) 100 02/08/18 08:37 71 02/08/18 08:19 Room Air 02/08/18 08:00 70 02/08/18 08:00 98.2 71 18 115/83 (94) 98 98.2 02/08/18 07:00 70 16 106/76 (86) 98 02/08/18 06:00 70 18 102/70 (81) 96 02/08/18 05:00 70 16 102/70 (81) 100 02/08/18 04:00 Room Air 02/08/18 04:00 97.5 70 18 111/63 (79) 100 97.5 02/08/18 03:32 70 02/08/18 03:00 70 16 103/68 (80) 100 02/08/18 02:27 123/60 02/08/18 02:00 70 16 123/60 (81) 100 02/08/18 01:00 70 20 102/62 (75) 100 02/08/18 00:00 Room Air 02/08/18 00:00 97.3 70 18 97/69 (78) 100 97.3 02/07/18 23:31 70 02/07/18 23:00 70 20 101/70 (80) 100 02/07/18 22:00 70 18 106/73 (84) 100 02/07/18 21:00 70 18 106/61 (76) 100 02/07/18 20:00 Room Air 02/07/18 20:00 97.5 70 18 120/76 (91) 96 97.5 02/07/18 19:04 70 02/07/18 18:00 70 20 117/78 (91) 100 02/07/18 17:26 70 20 119/86 (97) 100 02/07/18 16:16 97.8 70 18 107/69 (82) 100 97.8 02/07/18 16:00 Room Air 02/07/18 16:00 70 02/07/18 15:37 112/74 02/07/18 15:36 112/74 02/07/18 15:00 73 20 115/63 (80) 100 02/07/18 14:22 112/74 02/07/18 14:00 97.7 70 18 104/68 (80) 100 97.7 Intake and Output 02/07/18 02/08/18 19:00 07:00 Intake Total 1349.591 ml 326.44 ml Output Total 1890 ml 510 ml Balance -540.409 ml -183.56 ml Intake Oral 1240 ml 220 ml IV Total 109.591 ml 106.44 ml Output Urine Total 1890 ml 510 ml # Voids 7 2 # Bowel Movements 1 Laboratory Tests 02/08/18 03:45: White Blood Count 4.1L, Red Blood Count 4.38L, Hemoglobin 11.1L, Hematocrit 36.8L, Mean Corpuscular Volume 84, Mean Corpuscular Hemoglobin 25.4L, Mean Corpuscular Hemoglobin Concent 30.2L, Red Cell Distribution Width 19.9H, Platelet Count 198, Mean Platelet Volume 5.5L, Neutrophils (%) (Auto) 66.7, Lymphocytes (%) (Auto) 19.6L, Monocytes (%) (Auto) 9.0, Eosinophils (%) (Auto) 2.6, Basophils (%) (Auto) 2.1H, Sodium Level 134L, Potassium Level 4.1, Chloride Level 98, Carbon Dioxide Level 30, Anion Gap 6, Blood Urea Nitrogen 17 , Creatinine 1.5H, Estimat Glomerular Filtration Rate 57.1, Glucose Level 141H, Uric Acid 7.2, Calcium Level 8.9, Phosphorus Level 2.8, Magnesium Level 1.8 Height (Feet): 5 Height (Inches): 9.00 Weight (Pounds): 159 General Appearance: no apparent distress Objective no change PE Blaine Rojas MD Feb 08, 2018 12:27
--- NOTE | 2018-02-08 12:43 | Pulmonology Progress Note ---
Assessment/Plan Problems: (1) ARIS (acute kidney injury) (2) ACS (acute coronary syndrome) (3) ICD (implantable cardioverter-defibrillator) in place (4) Emphysema lung (5) Cirrhosis (6) Hepatitis C (7) Lumbar radiculopathy (8) EF < 20% (9) Ascites Assessment/Plan no new complains still on dobutamine and dopamine drip symptomatic treatment supportive care respiratory treatment titrate fio2 to sat of 92% pt is in better spirit Subjective ROS Limited/Unobtainable: No Constitutional: Reports: no symptoms HEENT: Repors: no symptoms Respiratory: Reports: no symptoms Allergies: Coded Allergies: HYDROMORPHONE (Verified Allergy, Unknown, 12/28/10) Objective Last 24 Hour Vital Signs Date Time Temp Pulse Resp B/P (MAP) Pulse Ox O2 Delivery O2 Flow Rate FiO2 02/08/18 12:00 70 02/08/18 11:50 70 02/08/18 10:26 72 20 122/77 (92) 100 02/08/18 08:37 71 02/08/18 08:19 Room Air 02/08/18 08:00 70 02/08/18 08:00 98.2 71 18 115/83 (94) 98 98.2 02/08/18 07:00 70 16 106/76 (86) 98 02/08/18 06:00 70 18 102/70 (81) 96 02/08/18 05:00 70 16 102/70 (81) 100 02/08/18 04:00 Room Air 02/08/18 04:00 97.5 70 18 111/63 (79) 100 97.5 02/08/18 03:32 70 02/08/18 03:00 70 16 103/68 (80) 100 02/08/18 02:27 123/60 02/08/18 02:00 70 16 123/60 (81) 100 02/08/18 01:00 70 20 102/62 (75) 100 02/08/18 00:00 Room Air 02/08/18 00:00 97.3 70 18 97/69 (78) 100 97.3 02/07/18 23:31 70 02/07/18 23:00 70 20 101/70 (80) 100 02/07/18 22:00 70 18 106/73 (84) 100 02/07/18 21:00 70 18 106/61 (76) 100 02/07/18 20:00 Room Air 02/07/18 20:00 97.5 70 18 120/76 (91) 96 97.5 02/07/18 19:04 70 02/07/18 18:00 70 20 117/78 (91) 100 02/07/18 17:26 70 20 119/86 (97) 100 02/07/18 16:16 97.8 70 18 107/69 (82) 100 97.8 02/07/18 16:00 Room Air 02/07/18 16:00 70 02/07/18 15:37 112/74 02/07/18 15:36 112/74 02/07/18 15:00 73 20 115/63 (80) 100 02/07/18 14:22 112/74 02/07/18 14:00 97.7 70 18 104/68 (80) 100 97.7 Intake and Output 02/07/18 02/08/18 19:00 07:00 Intake Total 1349.591 ml 326.44 ml Output Total 1890 ml 510 ml Balance -540.409 ml -183.56 ml Intake Oral 1240 ml 220 ml IV Total 109.591 ml 106.44 ml Output Urine Total 1890 ml 510 ml # Voids 7 2 # Bowel Movements 1 General Appearance: no acute distress HEENT: normocephalic, atraumatic Respiratory/Chest: chest wall non-tender, normal breath sounds Cardiovascular: normal peripheral pulses, normal rate Abdomen: normal bowel sounds, soft, non tender, no organomegaly Genitourinary: normal external genitalia Extremities: no cyanosis Skin: no rash Neurologic/Psychiatric: beaver trapper II-XII grossly normal, alert Lymphatic: no neck adenopathy Laboratory Tests 02/08/18 03:45: White Blood Count 4.1L, Red Blood Count 4.38L, Hemoglobin 11.1L, Hematocrit 36.8L, Mean Corpuscular Volume 84, Mean Corpuscular Hemoglobin 25.4L, Mean Corpuscular Hemoglobin Concent 30.2L, Red Cell Distribution Width 19.9H, Platelet Count 198, Mean Platelet Volume 5.5L, Neutrophils (%) (Auto) 66.7, Lymphocytes (%) (Auto) 19.6L, Monocytes (%) (Auto) 9.0, Eosinophils (%) (Auto) 2.6, Basophils (%) (Auto) 2.1H, Sodium Level 134L, Potassium Level 4.1, Chloride Level 98, Carbon Dioxide Level 30, Anion Gap 6, Blood Urea Nitrogen 17 , Creatinine 1.5H, Estimat Glomerular Filtration Rate 57.1, Glucose Level 141H, Uric Acid 7.2, Calcium Level 8.9, Phosphorus Level 2.8, Magnesium Level 1.8 Current Medications Medications (Trade) Dose Ordered Sig/Allyn Route PRN Reason Start Time Stop Time Status Last Admin Dose Admin Allopurinol (Allopurinol) 300 mg DAILY ORAL 02/05/18 09:00 03/07/18 08:59 02/08/18 08:37 Bisacodyl (Dulcolax) 5 mg DAILYPRN PRN ORAL Constipation 02/05/18 09:00 03/07/18 08:59 02/05/18 20:29 Chlorhexidine Gluconate (Kalani-Hex 2%) 1 applic DAILY@2000 TOPIC 02/06/18 20:00 03/08/18 19:59 02/07/18 19:49 Digoxin (Lanoxin) 0.25 mg DAILY ORAL 02/08/18 12:00 03/10/18 11:59 02/08/18 11:50 Diphenhydramine HCl (Benadryl) 25 mg Q8H PRN IVP Itching 02/04/18 15:00 03/05/18 14:59 Dobutamine HCl 250 ml @ 8.604 mls/ hr Q11H IV 02/07/18 15:35 03/09/18 15:34 02/07/18 15:37 Furosemide (Lasix) 40 mg DAILY ORAL 02/09/18 09:00 03/11/18 08:59 Gabapentin (Neurontin) 100 mg BID ORAL 02/04/18 18:00 03/05/18 08:59 02/08/18 08:37 Levothyroxine Sodium (Synthroid) 50 mcg DAILY IV 02/05/18 09:00 03/06/18 11:59 02/08/18 11:15 Midodrine (Pro-Amatine) 10 mg Q8H ORAL 02/04/18 17:00 03/06/18 08:59 02/08/18 08:38 Multivitamins (Multivitamins) 1 tab DAILY ORAL 02/05/18 09:00 03/05/18 08:59 02/08/18 08:38 Ondansetron HCl (Zofran) 4 mg Q8H PRN IVP Nausea & Vomiting 02/04/18 18:45 03/05/18 18:44 Oxycodone HCl (Roxicodone) 10 mg Q4H PRN ORAL severe pain 02/06/18 09:30 02/10/18 15:29 02/08/18 11:09 Pantoprazole (Protonix) 40 mg DAILY ORAL 02/05/18 09:00 03/05/18 08:59 02/08/18 08:38 Rivaroxaban (Xarelto) 15 mg DAILY ORAL 02/05/18 09:00 03/05/18 08:59 02/08/18 08:38 Spironolactone (Aldactone) 25 mg DAILY ORAL 02/05/18 09:00 03/05/18 08:59 02/08/18 08:38 Tizanidine HCl (Zanaflex) 4 mg THREE TIMES A DAY ORAL 02/04/18 18:00 03/05/18 08:59 02/08/18 08:39 Zolpidem Tartrate (Ambien) 5 mg HSPRN PRN ORAL Insomnia 02/08/18 12:00 02/15/18 11:59 Andrzej Chavarria MD Feb 08, 2018 12:43
--- NOTE | 2018-02-08 14:37 | Cardiac Electrophysiology PN ---
Assessment/Plan Assessment/Plan 1. Status post [facility] [facility] ICD upgrade to biventricular defibrillator by me in September 2017. ( BIV device. No LV lead pending Pericardial lead placement when stable). Has a new right ventricular lead as the old lead was broken. The patient is 100% V-paced. 2. Paroxysmal atrial fibrillation, status post one Cryoablation and one radiofrequency ablation by me at [facility]. Already on Xarelto and digoxin. 3. Congestive heart failure. On Dobutamine. On Lasix to 40 iv bid and aldactone. Resume Coreg after off Dobutamine. Decrease Dobutamine to 1 mcg 4. Renal failure. Dopamine DCed. Cr 1.5 Subjective Subjective On Dobutamine 2 mcg/min. Diuresing well. Objective Last 24 Hour Vital Signs Date Time Temp Pulse Resp B/P (MAP) Pulse Ox O2 Delivery O2 Flow Rate FiO2 02/08/18 13:10 122/77 02/08/18 13:09 122/77 02/08/18 12:00 70 02/08/18 11:50 70 02/08/18 10:26 72 20 122/77 (92) 100 02/08/18 08:37 71 02/08/18 08:19 Room Air 02/08/18 08:00 70 02/08/18 08:00 98.2 71 18 115/83 (94) 98 98.2 02/08/18 07:00 70 16 106/76 (86) 98 02/08/18 06:00 70 18 102/70 (81) 96 02/08/18 05:00 70 16 102/70 (81) 100 02/08/18 04:00 Room Air 02/08/18 04:00 97.5 70 18 111/63 (79) 100 97.5 02/08/18 03:32 70 02/08/18 03:00 70 16 103/68 (80) 100 02/08/18 02:27 123/60 02/08/18 02:00 70 16 123/60 (81) 100 02/08/18 01:00 70 20 102/62 (75) 100 02/08/18 00:00 Room Air 02/08/18 00:00 97.3 70 18 97/69 (78) 100 97.3 02/07/18 23:31 70 02/07/18 23:00 70 20 101/70 (80) 100 02/07/18 22:00 70 18 106/73 (84) 100 02/07/18 21:00 70 18 106/61 (76) 100 02/07/18 20:00 Room Air 02/07/18 20:00 97.5 70 18 120/76 (91) 96 97.5 02/07/18 19:04 70 02/07/18 18:00 70 20 117/78 (91) 100 02/07/18 17:26 70 20 119/86 (97) 100 02/07/18 16:16 97.8 70 18 107/69 (82) 100 97.8 02/07/18 16:00 Room Air 02/07/18 16:00 70 02/07/18 15:37 112/74 02/07/18 15:36 112/74 02/07/18 15:00 73 20 115/63 (80) 100 Intake and Output 02/07/18 02/08/18 19:00 07:00 Intake Total 1349.591 ml 326.44 ml Output Total 1890 ml 510 ml Balance -540.409 ml -183.56 ml Intake Oral 1240 ml 220 ml IV Total 109.591 ml 106.44 ml Output Urine Total 1890 ml 510 ml # Voids 7 2 # Bowel Movements 1 Laboratory Tests Test 02/08/18 03:45 White Blood Count 4.1 K/UL (4.8-10.8) L Red Blood Count 4.38 M/UL (4.70-6.10) L Hemoglobin 11.1 G/DL (14.2-18.0) L Hematocrit 36.8 % (42.0-52.0) L Mean Corpuscular Volume 84 FL (80-99) Mean Corpuscular Hemoglobin 25.4 PG (27.0-31.0) L Mean Corpuscular Hemoglobin Concent 30.2 G/DL (32.0-36.0) L Red Cell Distribution Width 19.9 % (11.6-14.8) H Platelet Count 198 K/UL (150-450) Mean Platelet Volume 5.5 FL (6.5-10.1) L Neutrophils (%) (Auto) 66.7 % (45.0-75.0) Lymphocytes (%) (Auto) 19.6 % (20.0-45.0) L Monocytes (%) (Auto) 9.0 % (1.0-10.0) Eosinophils (%) (Auto) 2.6 % (0.0-3.0) Basophils (%) (Auto) 2.1 % (0.0-2.0) H Sodium Level 134 MMOL/L (136-145) L Potassium Level 4.1 MMOL/L (3.5-5.1) Chloride Level 98 MMOL/L (98-107) Carbon Dioxide Level 30 MMOL/L (21-32) Anion Gap 6 mmol/L (5-15) Blood Urea Nitrogen 17 mg/dL (7-18) Creatinine 1.5 MG/DL (0.55-1.30) H Estimat Glomerular Filtration Rate 57.1 mL/min (>60) Glucose Level 141 MG/DL (74-106) H Uric Acid 7.2 MG/DL (2.6-7.2) Calcium Level 8.9 MG/DL (8.5-10.1) Phosphorus Level 2.8 MG/DL (2.5-4.9) Magnesium Level 1.8 MG/DL (1.8-2.4) Objective HEAD AND NECK: Positive JVD. LUNGS: Shows coarse rhonchi. CARDIOVASCULAR: Regular S1 and S2 with no murmur or gallop. Defibrillator is in the left subclavian. ABDOMEN: Soft, no ascites. EXTREMITIES: 1+ pitting edema. Rc Zhang MD Feb 08, 2018 14:37
[2018-02-08] MEDS ORDERED: DOBUTamine 250mg/250ml Premix 250 ML IV SCH (15:36)
[2018-02-08] MEDS ORDERED: NS 275ml ONE (16:29)
[2018-02-08] MEDS: Dyna-Hex 2% Top Sol 2oz TOPIC SCH (20:34)
--- NOTE | 2018-02-08 23:10 | Cardiology Progress Note ---
Assessment/Plan Assessment/Plan 1. Hypotension, most likely due to hypoalbuminemia, responded well to albumin admin and 250 cc NS IV bolus, off dopamine gtt, recommend tapering dobutamine off. 2. Chronic systolic CHF, all heart failure meds on hold due to hypotension. 3. Paroxysmal atrial fibrillation, hx of RFA and cryoablation, on Xarelto, currently V-paced. 4. s/p upgrade of PPM to PLY SPLICER/D, RV paced now at 70. 5. Severe pulmonary HTN due to left sided heart failure. 6. Liver cirrhosis with portal HTN 7. HCV Subjective Subjective Ventricular paced at 70. Objective Last 24 Hour Vital Signs Date Time Temp Pulse Resp B/P (MAP) Pulse Ox O2 Delivery O2 Flow Rate FiO2 02/08/18 20:00 98.1 70 15 123/84 (97) 100 98.1 02/08/18 20:00 Room Air 02/08/18 20:00 70 02/08/18 19:00 98.2 70 20 123/84 (97) 100 98.2 02/08/18 17:00 70 18 100/68 (79) 100 02/08/18 16:00 97.9 70 20 109/69 (82) 98 97.9 02/08/18 16:00 70 02/08/18 16:00 Room Air 02/08/18 15:40 101/69 02/08/18 14:00 70 20 112/76 (88) 100 02/08/18 13:10 122/77 02/08/18 13:09 122/77 02/08/18 12:00 Room Air 02/08/18 12:00 97.5 70 20 116/80 (92) 100 97.5 02/08/18 12:00 70 02/08/18 11:50 70 02/08/18 10:26 72 20 122/77 (92) 100 02/08/18 08:37 71 02/08/18 08:19 Room Air 02/08/18 08:00 70 02/08/18 08:00 98.2 71 18 115/83 (94) 98 98.2 02/08/18 07:00 70 16 106/76 (86) 98 02/08/18 06:00 70 18 102/70 (81) 96 02/08/18 05:00 70 16 102/70 (81) 100 02/08/18 04:00 Room Air 02/08/18 04:00 97.5 70 18 111/63 (79) 100 97.5 02/08/18 03:32 70 02/08/18 03:00 70 16 103/68 (80) 100 02/08/18 02:27 123/60 02/08/18 02:00 70 16 123/60 (81) 100 02/08/18 01:00 70 20 102/62 (75) 100 02/08/18 00:00 Room Air 02/08/18 00:00 97.3 70 18 97/69 (78) 100 97.3 02/07/18 23:31 70 Intake and Output 02/07/18 02/08/18 19:00 07:00 Intake Total 1349.591 ml 326.44 ml Output Total 1890 ml 510 ml Balance -540.409 ml -183.56 ml Intake Oral 1240 ml 220 ml IV Total 109.591 ml 106.44 ml Output Urine Total 1890 ml 510 ml # Voids 7 2 # Bowel Movements 1 2D Echo: Four Chamber DCM, EF 20%, RAP 20 mmHg, RVSP 90 mmHg, Mod MR Laboratory Tests Test 02/08/18 03:45 White Blood Count 4.1 K/UL (4.8-10.8) L Red Blood Count 4.38 M/UL (4.70-6.10) L Hemoglobin 11.1 G/DL (14.2-18.0) L Hematocrit 36.8 % (42.0-52.0) L Mean Corpuscular Volume 84 FL (80-99) Mean Corpuscular Hemoglobin 25.4 PG (27.0-31.0) L Mean Corpuscular Hemoglobin Concent 30.2 G/DL (32.0-36.0) L Red Cell Distribution Width 19.9 % (11.6-14.8) H Platelet Count 198 K/UL (150-450) Mean Platelet Volume 5.5 FL (6.5-10.1) L Neutrophils (%) (Auto) 66.7 % (45.0-75.0) Lymphocytes (%) (Auto) 19.6 % (20.0-45.0) L Monocytes (%) (Auto) 9.0 % (1.0-10.0) Eosinophils (%) (Auto) 2.6 % (0.0-3.0) Basophils (%) (Auto) 2.1 % (0.0-2.0) H Sodium Level 134 MMOL/L (136-145) L Potassium Level 4.1 MMOL/L (3.5-5.1) Chloride Level 98 MMOL/L (98-107) Carbon Dioxide Level 30 MMOL/L (21-32) Anion Gap 6 mmol/L (5-15) Blood Urea Nitrogen 17 mg/dL (7-18) Creatinine 1.5 MG/DL (0.55-1.30) H Estimat Glomerular Filtration Rate 57.1 mL/min (>60) Glucose Level 141 MG/DL (74-106) H Uric Acid 7.2 MG/DL (2.6-7.2) Calcium Level 8.9 MG/DL (8.5-10.1) Phosphorus Level 2.8 MG/DL (2.5-4.9) Magnesium Level 1.8 MG/DL (1.8-2.4) Objective GENERAL: Alert and oriented, NAD, on Levophed gtt at 1.5 mcg HEENT: Atraumatic and normocephalic. Anicteric. Pupils are equal, round, and reactive to light and accommodation. Extraocular muscles intact. NECK: JVP >15cm. No carotid bruits. CARDIOVASCULAR: Normal S1, S2. Regular rate and rhythm. 2/6 MSM, no gallops or rubs. LUNGS: Clear to auscultation bilaterally. ABDOMEN: Soft, nontender, and nondistended. No hepatosplenomegaly. Positive bowel sounds. EXTREMITIES: No evidence of edema, clubbing, or cyanosis. Rc Flower MD Feb 08, 2018 23:10
[2018-02-09] VITALS: BP 111/94
[2018-02-09] MEDS: Midodrine 10mg tab ORAL SCH ×2 (00:25→08:30)
[2018-02-09 04:00] VITALS: BP 114/77
[2018-02-09 05:36] LABS: BASOPHILS % (AUTO) 1.4 % (0.0-2.0); EOSINOPHILS % (AUTO) 2.5 % (0.0-3.0); HEMATOCRIT 35.3 % (42.0-52.0); HEMOGLOBIN 10.8 G/DL (14.2-18.0); LYMPHOCYTES % (AUTO) 20.6 % (20.0-45.0); MEAN CORPUSCULAR VOLUME 85 FL (80-99); MONOCYTES % (AUTO) 13.1 % (1.0-10.0); NEUTROPHILS % (AUTO) 62.4 % (45.0-75.0); PLATELET COUNT 204 K/UL (150-450); RED BLOOD COUNT 4.16 M/UL (4.70-6.10); RED CELL DISTRIBUTION WIDTH 20.3 % (11.6-14.8); WHITE BLOOD COUNT 4.2 K/UL (4.8-10.8)
[2018-02-09 06:03] LABS: ALANINE AMINOTRANSFERASE 19 U/L (12-78); ALBUMIN/GLOBULIN RATIO 0.7 (1.0-2.7); ALKALINE PHOSPHATASE 96 U/L (46-116); ANION GAP 4 mmol/L (5-15); ASPARTATE AMINO TRANSFERASE 23 U/L (15-37); BILIRUBIN,TOTAL 1.2 MG/DL (0.2-1.0); BLOOD UREA NITROGEN 19 mg/dL (7-18); CALCIUM 8.5 MG/DL (8.5-10.1); CARBON DIOXIDE 35 MMOL/L (21-32); CHLORIDE 100 MMOL/L (98-107); CREATININE 1.5 MG/DL (0.55-1.30); POTASSIUM 4.1 MMOL/L (3.5-5.1); SODIUM 138 MMOL/L (136-145)
[2018-02-09 06:11] LABS: ALANINE AMINOTRANSFERASE 21 U/L (12-78); ALBUMIN 3.1 G/DL (3.4-5.0); ALKALINE PHOSPHATASE 98 U/L (46-116); ASPARTATE AMINO TRANSFERASE 24 U/L (15-37); BILIRUBIN,DIRECT 0.6 MG/DL (0.0-0.3); BILIRUBIN,TOTAL 1.2 MG/DL (0.2-1.0); PHOSPHORUS 3.1 MG/DL (2.5-4.9)
--- NOTE | 2018-02-09 07:50 | General Progress Note ---
Assessment/Plan Assessment/Plan (1) Lumbar degenerative disc disease (2) Lumbar spondylosis (3) Lumbar radiculopathy (4) Liver Cirrhosis (5) Abdominal pain Pt will be continued on Oxycodone. Pt was d/w Dr. Carson and he concurred. Subjective Date patient seen: Feb 09, 2018 Time patient seen: 07:15 - am Allergies: Coded Allergies: HYDROMORPHONE (Verified Allergy, Unknown, 12/28/10) Subjective Constitutional: Reports: weakness, Denies: chills, diaphoresis, fever, malaise , no symptoms, other HEENT: Denies: blurred vision, double vision, ear discharge, ear pain, eye pain , mouth pain, mouth swelling, no symptoms, nose congestion, nose pain, other, tearing, throat pain, throat swelling Cardiovascular: Denies: irregular heart rate, lightheadedness, no symptoms, other, palpitations, syncope Respiratory: Denies: SOB at rest, SOB with excertion, cough, no symptoms, orthopnea, other, shortness of breath, sputum, stridor, wheezing Gastrointestinal/Abdominal: Reports: abdominal pain, Denies: abdomen distended , black stools, blood in stool, constipated, diarrhea, difficulty swallowing, nausea, no symptoms, other, poor appetite, poor fluid intake, rectal bleeding, tarry stools, vomiting Genitourinary: Denies: burning, discharge, flank pain, frequency, hematuria, incontinence, no symptoms, other, pain, urgency Neurologic/Psychiatric: Reports: weakness, Denies: anxiety, depressed, emotional problems, headache, no symptoms, numbness, other, paresthesia, pre- existing deficit, seizure, tingling, tremors Endocrine: Denies: excessive sweating, flushing, increased hunger, increased thirst, increased urine, intolerance to cold, intolerance to heat, no symptoms, other, unexplained weight gain, unexplained weight loss Hematologic/Lymphatic: Denies: anemia, easy bleeding, easy bruising, no symptoms, other Subjective Patient is in bed showing no signs of pain or distress. His pain has been tolerated on the Oxycodone as needed, 2 doses in the last 24hrs. He has no new complaints at this time. Objective Last 24 Hour Vital Signs Date Time Temp Pulse Resp B/P (MAP) Pulse Ox O2 Delivery O2 Flow Rate FiO2 02/09/18 04:00 Room Air 8/27/18 04:00 71 02/09/18 04:00 98.5 70 20 114/77 (89) 100 98.5 02/09/18 00:00 74 02/09/18 00:00 Room Air 02/09/18 00:00 97.8 75 15 111/94 (100) 100 97.8 02/08/18 20:00 98.1 70 15 123/84 (97) 100 98.1 02/08/18 20:00 Room Air 02/08/18 20:00 70 02/08/18 19:00 98.2 70 20 123/84 (97) 100 98.2 02/08/18 17:00 70 18 100/68 (79) 100 02/08/18 16:00 97.9 70 20 109/69 (82) 98 97.9 02/08/18 16:00 70 02/08/18 16:00 Room Air 02/08/18 15:40 101/69 02/08/18 14:00 70 20 112/76 (88) 100 02/08/18 13:10 122/77 02/08/18 13:09 122/77 02/08/18 12:00 Room Air 02/08/18 12:00 97.5 70 20 116/80 (92) 100 97.5 02/08/18 12:00 70 02/08/18 11:50 70 02/08/18 10:26 72 20 122/77 (92) 100 02/08/18 08:37 71 02/08/18 08:19 Room Air 02/08/18 08:00 70 02/08/18 08:00 98.2 71 18 115/83 (94) 98 98.2 Intake and Output 02/08/18 02/09/18 19:00 07:00 Intake Total 1549.426 ml 355.926 ml Output Total 2680 ml 1400 ml Balance -1130.574 ml -1044.074 ml Intake Oral 1470 ml 300 ml IV Total 79.426 ml 55.926 ml Output Urine Total 2680 ml 1400 ml # Voids 3 5 Laboratory Tests 02/09/18 04:00: White Blood Count 4.2L, Red Blood Count 4.16L, Hemoglobin 10.8L, Hematocrit 35.3L, Mean Corpuscular Volume 85, Mean Corpuscular Hemoglobin 26.0L, Mean Corpuscular Hemoglobin Concent 30.6L, Red Cell Distribution Width 20.3H, Platelet Count 204, Mean Platelet Volume 5.9L, Neutrophils (%) (Auto) 62.4, Lymphocytes (%) (Auto) 20.6, Monocytes (%) (Auto) 13.1H, Eosinophils (%) (Auto) 2.5, Basophils (%) (Auto) 1.4, Sodium Level 138, Potassium Level 4.1, Chloride Level 100, Carbon Dioxide Level 35H, Anion Gap 4L, Blood Urea Nitrogen 19H, Creatinine 1.5H, Estimat Glomerular Filtration Rate 57.1, Glucose Level 78, Uric Acid 6.5, Calcium Level 8.5, Phosphorus Level 3.1, Magnesium Level 1.7L, Total Bilirubin 1.2H, Direct Bilirubin 0.6H, Aspartate Amino Transf (AST/SGOT) 23, Alanine Aminotransferase (ALT/SGPT) 19, Alkaline Phosphatase 96, Pro-B-Type Natriuretic Peptide 4187H, Total Protein 7.3, Albumin 3.0L, Globulin 4.3, Albumin/Globulin Ratio 0.7L, Digoxin Level 1.5 Height (Feet): 5 Height (Inches): 9.00 Weight (Pounds): 159 Objective General Appearance: no apparent distress, alert EENT: normal ENT inspection, TMs normal Neck: normal alignment, supple Cardiovascular: normal rate, regular rhythm Respiratory/Chest: lungs clear, normal breath sounds Abdomen: tender, distended Extremities: non-tender Edema: edema noted in b/l LE Neurologic: alert, oriented x 3 Skin: warm/dry Luc Sanchez Feb 09, 2018 07:50
[2018-02-09 08:04] VITALS: BP 124/76
--- NOTE | 2018-02-09 08:09 | Cardiac Electrophysiology PN ---
Assessment/Plan Assessment/Plan 1. Status post [facility] [facility] ICD upgrade to biventricular defibrillator by me in September 2017. ( No LV lead pending Pericardial lead placement ). Has a new right ventricular lead as the old lead was broken. 2. Paroxysmal atrial fibrillation, status post one Cryoablation and one radiofrequency ablation by me at [facility]. On Xarelto and digoxin. 3. Congestive heart failure. On Dobutamine. On Lasix 40 iv bid and aldactone. Resume Coreg . DC Dobutamine 4. Renal failure. Cr now stable at 1.5 Subjective Subjective On Dobutamine 1 mcg/min. Diuresing well. No VT. Objective Last 24 Hour Vital Signs Date Time Temp Pulse Resp B/P (MAP) Pulse Ox O2 Delivery O2 Flow Rate FiO2 02/09/18 04:00 Room Air 02/09/18 04:00 71 02/09/18 04:00 98.5 70 20 114/77 (89) 100 98.5 02/09/18 00:00 74 02/09/18 00:00 Room Air 02/09/18 00:00 97.8 75 15 111/94 (100) 100 97.8 02/08/18 20:00 98.1 70 15 123/84 (97) 100 98.1 02/08/18 20:00 Room Air 02/08/18 20:00 70 02/08/18 19:00 98.2 70 20 123/84 (97) 100 98.2 02/08/18 17:00 70 18 100/68 (79) 100 02/08/18 16:00 97.9 70 20 109/69 (82) 98 97.9 02/08/18 16:00 70 02/08/18 16:00 Room Air 02/08/18 15:40 101/69 02/08/18 14:00 70 20 112/76 (88) 100 02/08/18 13:10 122/77 02/08/18 13:09 122/77 02/08/18 12:00 Room Air 02/08/18 12:00 97.5 70 20 116/80 (92) 100 97.5 02/08/18 12:00 70 02/08/18 11:50 70 02/08/18 10:26 72 20 122/77 (92) 100 8/26/18 08:37 71 02/08/18 08:19 Room Air Intake and Output 02/08/18 02/09/18 19:00 07:00 Intake Total 1549.426 ml 355.926 ml Output Total 2680 ml 1400 ml Balance -1130.574 ml -1044.074 ml Intake Oral 1470 ml 300 ml IV Total 79.426 ml 55.926 ml Output Urine Total 2680 ml 1400 ml # Voids 3 5 Laboratory Tests Test 02/09/18 04:00 White Blood Count 4.2 K/UL (4.8-10.8) L Red Blood Count 4.16 M/UL (4.70-6.10) L Hemoglobin 10.8 G/DL (14.2-18.0) L Hematocrit 35.3 % (42.0-52.0) L Mean Corpuscular Volume 85 FL (80-99) Mean Corpuscular Hemoglobin 26.0 PG (27.0-31.0) L Mean Corpuscular Hemoglobin Concent 30.6 G/DL (32.0-36.0) L Red Cell Distribution Width 20.3 % (11.6-14.8) H Platelet Count 204 K/UL (150-450) Mean Platelet Volume 5.9 FL (6.5-10.1) L Neutrophils (%) (Auto) 62.4 % (45.0-75.0) Lymphocytes (%) (Auto) 20.6 % (20.0-45.0) Monocytes (%) (Auto) 13.1 % (1.0-10.0) H Eosinophils (%) (Auto) 2.5 % (0.0-3.0) Basophils (%) (Auto) 1.4 % (0.0-2.0) Sodium Level 138 MMOL/L (136-145) Potassium Level 4.1 MMOL/L (3.5-5.1) Chloride Level 100 MMOL/L (98-107) Carbon Dioxide Level 35 MMOL/L (21-32) H Anion Gap 4 mmol/L (5-15) L Blood Urea Nitrogen 19 mg/dL (7-18) H Creatinine 1.5 MG/DL (0.55-1.30) H Estimat Glomerular Filtration Rate 57.1 mL/min (>60) Glucose Level 78 MG/DL (74-106) Uric Acid 6.5 MG/DL (2.6-7.2) Calcium Level 8.5 MG/DL (8.5-10.1) Phosphorus Level 3.1 MG/DL (2.5-4.9) Magnesium Level 1.7 MG/DL (1.8-2.4) L Total Bilirubin 1.2 MG/DL (0.2-1.0) H Direct Bilirubin 0.6 MG/DL (0.0-0.3) H Aspartate Amino Transf (AST/SGOT) 23 U/L (15-37) Alanine Aminotransferase (ALT/SGPT) 19 U/L (12-78) Alkaline Phosphatase 96 U/L (46-116) Pro-B-Type Natriuretic Peptide 4187 pg/mL (0-125) H Total Protein 7.3 G/DL (6.4-8.2) Albumin 3.0 G/DL (3.4-5.0) L Globulin 4.3 g/dL Albumin/Globulin Ratio 0.7 (1.0-2.7) L Digoxin Level 1.5 NG/ML (0.5-2.0) Objective HEAD AND NECK: Positive JVD. LUNGS: Shows coarse rhonchi. CARDIOVASCULAR: Regular S1 and S2 with no murmur or gallop. Defibrillator is in the left subclavian. ABDOMEN: Soft, no ascites. EXTREMITIES: No pitting edema. Rc Zhang MD Feb 09, 2018 08:09
[2018-02-09] MEDS: Spironolactone 25mg tab ORAL SCH (08:31)
[2018-02-09] MEDS: Xarelto 15mg tab ORAL SCH (08:31)
[2018-02-09] MEDS ORDERED: Furosemide 40mg tab ORAL SCH (09:00)
[2018-02-09] MEDS ORDERED: Allopurinol 100mg Tab ORAL SCH (09:00)
[2018-02-09] MEDS ORDERED: Magnesium Chloride w/Calcium Tab ORAL SCH (09:00)
[2018-02-09] MEDS ORDERED: Magnesium Oxide 400mg tab ORAL SCH ×2 (09:00→18:00)
--- NOTE | 2018-02-09 10:47 | Pulmonology Progress Note ---
Assessment/Plan Problems: (1) ARIS (acute kidney injury) (2) ACS (acute coronary syndrome) (3) ICD (implantable cardioverter-defibrillator) in place (4) Emphysema lung (5) Cirrhosis (6) Hepatitis C (7) Lumbar radiculopathy (8) EF < 20% (9) Ascites Assessment/Plan feeling better off dopamine drip symptomatic treatment supportive care respiratory treatment titrate fio2 to sat of 92% pt is in better spirit Subjective ROS Limited/Unobtainable: No Constitutional: Reports: no symptoms HEENT: Repors: no symptoms Respiratory: Reports: no symptoms Allergies: Coded Allergies: HYDROMORPHONE (Verified Allergy, Unknown, 12/28/10) Objective Last 24 Hour Vital Signs Date Time Temp Pulse Resp B/P (MAP) Pulse Ox O2 Delivery O2 Flow Rate FiO2 02/09/18 08:32 71 124/76 02/09/18 08:30 71 02/09/18 08:04 97.9 71 20 124/76 (92) 99 97.9 02/09/18 08:00 Room Air 02/09/18 08:00 72 02/09/18 04:00 Room Air 02/09/18 04:00 71 02/09/18 04:00 98.5 70 20 114/77 (89) 100 98.5 02/09/18 00:00 74 02/09/18 00:00 Room Air 02/09/18 00:00 97.8 75 15 111/94 (100) 100 97.8 02/08/18 20:00 98.1 70 15 123/84 (97) 100 98.1 02/08/18 20:00 Room Air 02/08/18 20:00 70 02/08/18 19:00 98.2 70 20 123/84 (97) 100 98.2 02/08/18 17:00 70 18 100/68 (79) 100 02/08/18 16:00 97.9 70 20 109/69 (82) 98 97.9 02/08/18 16:00 70 02/08/18 16:00 Room Air 02/08/18 15:40 101/69 02/08/18 14:00 70 20 112/76 (88) 100 02/08/18 13:10 122/77 02/08/18 13:09 122/77 02/08/18 12:00 Room Air 02/08/18 12:00 97.5 70 20 116/80 (92) 100 97.5 02/08/18 12:00 70 02/08/18 11:50 70 Intake and Output 02/08/18 02/09/18 19:00 07:00 Intake Total 1549.426 ml 355.926 ml Output Total 2680 ml 1400 ml Balance -1130.574 ml -1044.074 ml Intake Oral 1470 ml 300 ml IV Total 79.426 ml 55.926 ml Output Urine Total 2680 ml 1400 ml # Voids 3 5 General Appearance: WD/WN HEENT: normocephalic, atraumatic Respiratory/Chest: chest wall non-tender, normal breath sounds Cardiovascular: normal peripheral pulses, normal rate Abdomen: normal bowel sounds, soft, non tender Genitourinary: normal external genitalia Extremities: no clubbing Skin: no lesions Neurologic/Psychiatric: no motor/sensory deficits Lymphatic: no neck adenopathy Laboratory Tests 02/09/18 04:00: White Blood Count 4.2L, Red Blood Count 4.16L, Hemoglobin 10.8L, Hematocrit 35.3L, Mean Corpuscular Volume 85, Mean Corpuscular Hemoglobin 26.0L, Mean Corpuscular Hemoglobin Concent 30.6L, Red Cell Distribution Width 20.3H, Platelet Count 204, Mean Platelet Volume 5.9L, Neutrophils (%) (Auto) 62.4, Lymphocytes (%) (Auto) 20.6, Monocytes (%) (Auto) 13.1H, Eosinophils (%) (Auto) 2.5, Basophils (%) (Auto) 1.4, Sodium Level 138, Potassium Level 4.1, Chloride Level 100, Carbon Dioxide Level 35H, Anion Gap 4L, Blood Urea Nitrogen 19H, Creatinine 1.5H, Estimat Glomerular Filtration Rate 57.1, Glucose Level 78, Uric Acid 6.5, Calcium Level 8.5, Phosphorus Level 3.1, Magnesium Level 1.7L, Total Bilirubin 1.2H, Direct Bilirubin 0.6H, Aspartate Amino Transf (AST/SGOT) 23, Alanine Aminotransferase (ALT/SGPT) 19, Alkaline Phosphatase 96, Pro-B-Type Natriuretic Peptide 4187H, Total Protein 7.3, Albumin 3.0L, Globulin 4.3, Albumin/Globulin Ratio 0.7L, Thyroid Stimulating Hormone (TSH) 26.379H, Digoxin Level 1.5 Current Medications Medications (Trade) Dose Ordered Sig/Allyn Route PRN Reason Start Time Stop Time Status Last Admin Dose Admin Allopurinol (Zyloprim) 200 mg DAILY ORAL 02/10/18 09:00 03/12/18 08:59 Bisacodyl (Dulcolax) 5 mg DAILYPRN PRN ORAL Constipation 02/05/18 09:00 03/07/18 08:59 02/05/18 20:29 Carvedilol (Coreg) 3.125 mg EVERY 12 HOURS ORAL 02/09/18 09:00 03/11/18 08:59 02/09/18 08:32 Chlorhexidine Gluconate (Kalani-Hex 2%) 1 applic DAILY@1999 TOPIC 02/06/18 20:00 03/08/18 19:59 02/08/18 20:34 Digoxin (Lanoxin) 0.25 mg DAILY ORAL 02/08/18 12:00 03/10/18 11:59 02/09/18 08:30 Diphenhydramine HCl (Benadryl) 25 mg Q8H PRN IVP Itching 02/04/18 15:00 03/05/18 14:59 Furosemide (Lasix) 40 mg DAILY ORAL 02/09/18 09:00 03/11/18 08:59 02/09/18 08:32 Gabapentin (Neurontin) 100 mg BID ORAL 02/04/18 18:00 03/05/18 08:59 02/09/18 08:30 Levothyroxine Sodium (Synthroid) 50 mcg DAILY IV 02/05/18 09:00 02/10/18 08:44 02/09/18 10:03 Levothyroxine Sodium (Synthroid) 100 mcg DAILY@0630 ORAL 02/10/18 06:30 03/12/18 06:29 Magnesium Oxide (Mag-Ox 400mg) 400 mg TWICE A DAY ORAL 02/09/18 18:00 03/11/18 08:59 Midodrine (Pro-Amatine) 10 mg Q8H ORAL 02/04/18 17:00 03/06/18 08:59 02/09/18 08:30 Multivitamins (Multivitamins) 1 tab DAILY ORAL 02/05/18 09:00 03/05/18 08:59 02/09/18 08:30 Ondansetron HCl (Zofran) 4 mg Q8H PRN IVP Nausea & Vomiting 02/04/18 18:45 03/05/18 18:44 Oxycodone HCl (Roxicodone) 10 mg Q4H PRN ORAL severe pain 02/06/18 09:30 02/10/18 15:29 02/08/18 22:30 Pantoprazole (Protonix) 40 mg DAILY ORAL 02/05/18 09:00 03/05/18 08:59 02/09/18 08:30 Rivaroxaban (Xarelto) 15 mg DAILY ORAL 02/05/18 09:00 03/05/18 08:59 02/09/18 08:31 Spironolactone (Aldactone) 25 mg DAILY ORAL 02/05/18 09:00 03/05/18 08:59 02/09/18 08:31 Tizanidine HCl (Zanaflex) 4 mg THREE TIMES A DAY ORAL 02/04/18 18:00 03/05/18 08:59 02/09/18 08:31 Zolpidem Tartrate (Ambien) 5 mg HSPRN PRN ORAL Insomnia 02/08/18 12:00 02/15/18 11:59 02/09/18 00:25 Andrzej Chavarria MD Feb 09, 2018 10:47
--- NOTE | 2018-02-09 11:08 | GI Progress Note ---
Assessment/Plan Problems: (1) EF < 10% (2) Abdominal pain ICD Codes: R10.9 - Abdominal pain SNOMED: 44824761 Qualifiers: Qualified Codes: R10.84 - Generalized abdominal pain (3) Cirrhosis ICD Codes: K74.60 - Unspecified cirrhosis of liver SNOMED: 55797211 (4) Hepatitis C ICD Codes: B19.20 - Hepatitis C SNOMED: 02490739 (5) Cirrhosis ICD Codes: K74.60 - Unspecified cirrhosis of liver SNOMED: 78003264 (6) Ascites ICD Codes: R18.8 - Ascites SNOMED: 424409857 Status: stable, progressing Status Narrative Discussed with Dr. Ryan. Assessment/Plan hx of Hep C in 2014 s/p tx >> hep panel redrawn in 2016 was negative s/p colonoscopy with one polyp 06/26/16 fu cardiology recs paracentesis prn diuresis adv low sodium diet bowel regime zofran prn ppi pain mgmt fu labs could benefit from outpatient fibroid scan evaluate cirrhosis outpatient follow fu repeat colonoscopy in 2021 The patient was seen and examined at bedside and all new and available data was reviewed in the patients chart. I agree with the above findings, impression and plan. (Patient seen earlier today. Signature stamp does not reflect patient encounter time.). - Beto Ryan MD Subjective Subjective overall feels better Objective Last 24 Hour Vital Signs Date Time Temp Pulse Resp B/P (MAP) Pulse Ox O2 Delivery O2 Flow Rate FiO2 02/09/18 08:32 71 124/76 02/09/18 08:30 71 02/09/18 08:04 97.9 71 20 124/76 (92) 99 97.9 02/09/18 08:00 Room Air 02/09/18 08:00 72 02/09/18 04:00 Room Air 02/09/18 04:00 71 02/09/18 04:00 98.5 70 20 114/77 (89) 100 98.5 02/09/18 00:00 74 02/09/18 00:00 Room Air 02/09/18 00:00 97.8 75 15 111/94 (100) 100 97.8 02/08/18 20:00 98.1 70 15 123/84 (97) 100 98.1 02/08/18 20:00 Room Air 02/08/18 20:00 70 02/08/18 19:00 98.2 70 20 123/84 (97) 100 98.2 02/08/18 17:00 70 18 100/68 (79) 100 02/08/18 16:00 97.9 70 20 109/69 (82) 98 97.9 02/08/18 16:00 70 02/08/18 16:00 Room Air 02/08/18 15:40 101/69 02/08/18 14:00 70 20 112/76 (88) 100 02/08/18 13:10 122/77 02/08/18 13:09 122/77 02/08/18 12:00 Room Air 02/08/18 12:00 97.5 70 20 116/80 (92) 100 97.5 02/08/18 12:00 70 02/08/18 11:50 70 Intake and Output 02/08/18 02/09/18 19:00 07:00 Intake Total 1549.426 ml 355.926 ml Output Total 2680 ml 1400 ml Balance -1130.574 ml -1044.074 ml Intake Oral 1470 ml 300 ml IV Total 79.426 ml 55.926 ml Output Urine Total 2680 ml 1400 ml # Voids 3 5 Laboratory Tests Test 02/09/18 04:00 White Blood Count 4.2 K/UL (4.8-10.8) L Red Blood Count 4.16 M/UL (4.70-6.10) L Hemoglobin 10.8 G/DL (14.2-18.0) L Hematocrit 35.3 % (42.0-52.0) L Mean Corpuscular Volume 85 FL (80-99) Mean Corpuscular Hemoglobin 26.0 PG (27.0-31.0) L Mean Corpuscular Hemoglobin Concent 30.6 G/DL (32.0-36.0) L Red Cell Distribution Width 20.3 % (11.6-14.8) H Platelet Count 204 K/UL (150-450) Mean Platelet Volume 5.9 FL (6.5-10.1) L Neutrophils (%) (Auto) 62.4 % (45.0-75.0) Lymphocytes (%) (Auto) 20.6 % (20.0-45.0) Monocytes (%) (Auto) 13.1 % (1.0-10.0) H Eosinophils (%) (Auto) 2.5 % (0.0-3.0) Basophils (%) (Auto) 1.4 % (0.0-2.0) Sodium Level 138 MMOL/L (136-145) Potassium Level 4.1 MMOL/L (3.5-5.1) Chloride Level 100 MMOL/L (98-107) Carbon Dioxide Level 35 MMOL/L (21-32) H Anion Gap 4 mmol/L (5-15) L Blood Urea Nitrogen 19 mg/dL (7-18) H Creatinine 1.5 MG/DL (0.55-1.30) H Estimat Glomerular Filtration Rate 57.1 mL/min (>60) Glucose Level 78 MG/DL (74-106) Uric Acid 6.5 MG/DL (2.6-7.2) Calcium Level 8.5 MG/DL (8.5-10.1) Phosphorus Level 3.1 MG/DL (2.5-4.9) Magnesium Level 1.7 MG/DL (1.8-2.4) L Total Bilirubin 1.2 MG/DL (0.2-1.0) H Direct Bilirubin 0.6 MG/DL (0.0-0.3) H Aspartate Amino Transf (AST/SGOT) 23 U/L (15-37) Alanine Aminotransferase (ALT/SGPT) 19 U/L (12-78) Alkaline Phosphatase 96 U/L (46-116) Pro-B-Type Natriuretic Peptide 4187 pg/mL (0-125) H Total Protein 7.3 G/DL (6.4-8.2) Albumin 3.0 G/DL (3.4-5.0) L Globulin 4.3 g/dL Albumin/Globulin Ratio 0.7 (1.0-2.7) L Thyroid Stimulating Hormone (TSH) 26.379 uiU/mL (0.358-3.740) Digoxin Level 1.5 NG/ML (0.5-2.0) Height (Feet): 5 Height (Inches): 9.00 Weight (Pounds): 159 General Appearance: WD/WN, no apparent distress, alert Cardiovascular: normal rate Respiratory/Chest: normal breath sounds, no respiratory distress Abdominal Exam: normal bowel sounds, non tender, soft Extremities: normal range of motion, non-tender Kiarra Bird NP Feb 09, 2018 11:08
[2018-02-09 12:00] VITALS: BP 118/82
--- NOTE | 2018-02-09 12:16 | Diagnostic Imaging Report ---
Indication: Dyspnea Comparison: None A single view chest radiograph was obtained. Findings: No definite infiltrate or pulmonary vascular congestion identified. Pacemaker noted on the left. PICC line is present in good position with the tip projected over the SVC. The heart is enlarged. The aorta is mildly enlarged consistent with atherosclerotic vascular disease. The bones are osteopenic. Impression: No acute disease
--- NOTE | 2018-02-09 13:54 | General Progress Note ---
Assessment/Plan Problem List: (1) Cirrhosis ICD Codes: K74.60 - Unspecified cirrhosis of liver SNOMED: 61725916 (2) ACS (acute coronary syndrome) ICD Codes: I24.9 - Acute coronary syndrome SNOMED: 426021040 (3) Cirrhosis ICD Codes: K74.60 - Cirrhosis SNOMED: 96105093 (4) CHF (congestive heart failure) ICD Codes: I50.9 - Heart failure, unspecified SNOMED: 52679709 (5) ARIS (acute kidney injury) ICD Codes: N17.9 - Acute kidney failure, unspecified SNOMED: 89550407 Status: stable, progressing Assessment/Plan ot pt diet pain control cbc bmp am dc plan w hh if clear by all Subjective Constitutional: Reports: weakness Respiratory: Reports: shortness of breath Allergies: Coded Allergies: HYDROMORPHONE (Verified Allergy, Unknown, 12/28/10) All Systems: reviewed and negative except above Subjective calm in bed Objective Last 24 Hour Vital Signs Date Time Temp Pulse Resp B/P (MAP) Pulse Ox O2 Delivery O2 Flow Rate FiO2 02/09/18 12:00 76 02/09/18 08:32 71 124/76 02/09/18 08:30 71 02/09/18 08:04 97.9 71 20 124/76 (92) 99 97.9 02/09/18 08:00 Room Air 02/09/18 08:00 72 02/09/18 04:00 Room Air 02/09/18 04:00 71 02/09/18 04:00 98.5 70 20 114/77 (89) 100 98.5 02/09/18 00:00 74 02/09/18 00:00 Room Air 02/09/18 00:00 97.8 75 15 111/94 (100) 100 97.8 02/08/18 20:00 98.1 70 15 123/84 (97) 100 98.1 02/08/18 20:00 Room Air 02/08/18 20:00 70 02/08/18 19:00 98.2 70 20 123/84 (97) 100 98.2 02/08/18 17:00 70 18 100/68 (79) 100 02/08/18 16:00 97.9 70 20 109/69 (82) 98 97.9 02/08/18 16:00 70 02/08/18 16:00 Room Air 02/08/18 15:40 101/69 02/08/18 14:00 70 20 112/76 (88) 100 Intake and Output 02/08/18 02/09/18 19:00 07:00 Intake Total 1549.426 ml 355.926 ml Output Total 2680 ml 1400 ml Balance -1130.574 ml -1044.074 ml Intake Oral 1470 ml 300 ml IV Total 79.426 ml 55.926 ml Output Urine Total 2680 ml 1400 ml # Voids 3 5 Laboratory Tests 02/09/18 04:00: White Blood Count 4.2L, Red Blood Count 4.16L, Hemoglobin 10.8L, Hematocrit 35.3L, Mean Corpuscular Volume 85, Mean Corpuscular Hemoglobin 26.0L, Mean Corpuscular Hemoglobin Concent 30.6L, Red Cell Distribution Width 20.3H, Platelet Count 204, Mean Platelet Volume 5.9L, Neutrophils (%) (Auto) 62.4, Lymphocytes (%) (Auto) 20.6, Monocytes (%) (Auto) 13.1H, Eosinophils (%) (Auto) 2.5, Basophils (%) (Auto) 1.4, Sodium Level 138, Potassium Level 4.1, Chloride Level 100, Carbon Dioxide Level 35H, Anion Gap 4L, Blood Urea Nitrogen 19H, Creatinine 1.5H, Estimat Glomerular Filtration Rate 57.1, Glucose Level 78, Uric Acid 6.5, Calcium Level 8.5, Phosphorus Level 3.1, Magnesium Level 1.7L, Total Bilirubin 1.2H, Direct Bilirubin 0.6H, Aspartate Amino Transf (AST/SGOT) 23, Alanine Aminotransferase (ALT/SGPT) 19, Alkaline Phosphatase 96, Pro-B-Type Natriuretic Peptide 4187H, Total Protein 7.3, Albumin 3.0L, Globulin 4.3, Albumin/Globulin Ratio 0.7L, Thyroid Stimulating Hormone (TSH) 26.379H, Digoxin Level 1.5 Height (Feet): 5 Height (Inches): 9.00 Weight (Pounds): 159 General Appearance: lethargic EENT: normal ENT inspection Neck: normal alignment Cardiovascular: normal peripheral pulses, normal rate, regular rhythm Respiratory/Chest: chest wall non-tender, decreased breath sounds Abdomen: normal bowel sounds, non tender, soft Extremities: normal inspection Edema: no edema noted Arm (L), no edema noted Arm (R), no edema noted Leg (L), no edema noted Leg (R), no edema noted Pedal (L), no edema noted Pedal (R), no edema noted Generalized Neurologic: responsive, motor weakness Shahid Cherry DO Feb 09, 2018 13:54
[2018-02-09] MEDS ORDERED: oxyCODONE 5mg IR tab ORAL PRN (14:00)
[2018-02-09 16:00] VITALS: BP 110/62
[2018-02-09] MEDS ORDERED: DiphenhydrAMINE 50mg/ml Inj IVP PRN (17:30)
[2018-02-09] MEDS ORDERED: Bisacodyl EC 5mg tab ORAL PRN (17:30)
[2018-02-09] MEDS: Magnesium Oxide 400mg tab ORAL SCH (18:33)
[2018-02-09] MEDS: oxyCODONE 5mg IR tab ORAL PRN ×2 (18:33→22:46)
[2018-02-09] MEDS ORDERED: Dyna-Hex 2% Top Sol 2oz TOPIC SCH (20:00)
[2018-02-09 20:11] VITALS: BP 105/68
[2018-02-09] MEDS ORDERED: Zolpidem 5mg tab ORAL PRN (21:00)
[2018-02-10 04:15] VITALS: BP 117/70
[2018-02-10 06:23] LABS: BASOPHILS % (AUTO) 1.2 % (0.0-2.0); EOSINOPHILS % (AUTO) 2.9 % (0.0-3.0); HEMATOCRIT 37.9 % (42.0-52.0); HEMOGLOBIN 11.5 G/DL (14.2-18.0); LYMPHOCYTES % (AUTO) 26.8 % (20.0-45.0); MEAN CORPUSCULAR VOLUME 85 FL (80-99); MONOCYTES % (AUTO) 12.6 % (1.0-10.0); NEUTROPHILS % (AUTO) 56.5 % (45.0-75.0); PLATELET COUNT 214 K/UL (150-450); RED BLOOD COUNT 4.45 M/UL (4.70-6.10); RED CELL DISTRIBUTION WIDTH 20.4 % (11.6-14.8); WHITE BLOOD COUNT 4.1 K/UL (4.8-10.8)
[2018-02-10 06:57] LABS: ALANINE AMINOTRANSFERASE 21 U/L (12-78); ALBUMIN 3.3 G/DL (3.4-5.0); ALBUMIN/GLOBULIN RATIO 0.7 (1.0-2.7); ALKALINE PHOSPHATASE 99 U/L (46-116); ANION GAP 6 mmol/L (5-15); ASPARTATE AMINO TRANSFERASE 24 U/L (15-37); BILIRUBIN,TOTAL 1.1 MG/DL (0.2-1.0); BLOOD UREA NITROGEN 23 mg/dL (7-18); CARBON DIOXIDE 32 MMOL/L (21-32); CHLORIDE 100 MMOL/L (98-107); CREATININE 1.5 MG/DL (0.55-1.30); POTASSIUM 4.3 MMOL/L (3.5-5.1); SODIUM 138 MMOL/L (136-145)
[2018-02-10 06:58] LABS: BILIRUBIN,DIRECT 0.6 MG/DL (0.0-0.3)
[2018-02-10 08:00] VITALS: BP 114/67
--- NOTE | 2018-02-10 08:15 | General Progress Note ---
Assessment/Plan Assessment/Plan (1) Lumbar degenerative disc disease (2) Lumbar spondylosis (3) Lumbar radiculopathy (4) Liver Cirrhosis (5) Abdominal pain Pt will be continued on Oxycodone. Pt was d/w Dr. Carson and he concurred. Subjective Date patient seen: Feb 10, 2018 Time patient seen: 08:00 - am Allergies: Coded Allergies: HYDROMORPHONE (Verified Allergy, Unknown, 12/28/10) Subjective Constitutional: Reports: weakness, Denies: chills, diaphoresis, fever, malaise , no symptoms, other HEENT: Denies: blurred vision, double vision, ear discharge, ear pain, eye pain , mouth pain, mouth swelling, no symptoms, nose congestion, nose pain, other, tearing, throat pain, throat swelling Cardiovascular: Denies: irregular heart rate, lightheadedness, no symptoms, other, palpitations, syncope Respiratory: Denies: SOB at rest, SOB with excertion, cough, no symptoms, orthopnea, other, shortness of breath, sputum, stridor, wheezing Gastrointestinal/Abdominal: Reports: abdominal pain, Denies: abdomen distended , black stools, blood in stool, constipated, diarrhea, difficulty swallowing, nausea, no symptoms, other, poor appetite, poor fluid intake, rectal bleeding, tarry stools, vomiting Genitourinary: Denies: burning, discharge, flank pain, frequency, hematuria, incontinence, no symptoms, other, pain, urgency Neurologic/Psychiatric: Reports: weakness, Denies: anxiety, depressed, emotional problems, headache, no symptoms, numbness, other, paresthesia, pre- existing deficit, seizure, tingling, tremors Endocrine: Denies: excessive sweating, flushing, increased hunger, increased thirst, increased urine, intolerance to cold, intolerance to heat, no symptoms, other, unexplained weight gain, unexplained weight loss Hematologic/Lymphatic: Denies: anemia, easy bleeding, easy bruising, no symptoms, other Subjective Patient reports that he is feeling better and the pain has been tolerated on the Oxycodone. He has no new complaints. Objective Last 24 Hour Vital Signs Date Time Temp Pulse Resp B/P (MAP) Pulse Ox O2 Delivery O2 Flow Rate FiO2 02/10/18 08:00 98.1 76 18 114/67 (83) 100 98.1 02/10/18 04:15 97.7 68 18 117/70 (86) 99 97.7 02/09/18 21:00 Room Air 02/09/18 20:27 70 105/68 02/09/18 20:11 97.9 70 18 105/68 (80) 97 97.9 02/09/18 16:00 97.7 68 20 110/62 (78) 100 97.7 02/09/18 16:00 76 02/09/18 16:00 Room Air 02/09/18 12:00 Room Air 02/09/18 12:00 97.2 70 20 118/82 (94) 97 97.2 02/09/18 12:00 76 02/09/18 08:32 71 124/76 02/09/18 08:30 71 Intake and Output 02/09/18 02/10/18 19:00 07:00 Intake Total 600 ml 300 ml Output Total 1000 ml Balance -400 ml 300 ml Intake Oral 600 ml 300 ml Output Urine Total 1000 ml # Voids 4 3 # Bowel Movements 1 Laboratory Tests 02/10/18 05:20: White Blood Count 4.1L, Red Blood Count 4.45L, Hemoglobin 11.5L, Hematocrit 37.9L, Mean Corpuscular Volume 85, Mean Corpuscular Hemoglobin 26.0L, Mean Corpuscular Hemoglobin Concent 30.5L, Red Cell Distribution Width 20.4H, Platelet Count 214, Mean Platelet Volume 6.1L, Neutrophils (%) (Auto) 56.5, Lymphocytes (%) (Auto) 26.8, Monocytes (%) (Auto) 12.6H, Eosinophils (%) (Auto) 2.9, Basophils (%) (Auto) 1.2, Sodium Level 138, Potassium Level 4.3, Chloride Level 100, Carbon Dioxide Level 32, Anion Gap 6, Blood Urea Nitrogen 23H, Creatinine 1.5H, Estimat Glomerular Filtration Rate 57.1, Glucose Level 89, Calcium Level 9.0, Total Bilirubin 1.1H, Direct Bilirubin 0.6H, Aspartate Amino Transf (AST/SGOT) 24, Alanine Aminotransferase (ALT/SGPT) 21, Alkaline Phosphatase 99, Pro-B-Type Natriuretic Peptide 7184H, Total Protein 7.8, Albumin 3.3L, Globulin 4.5, Albumin/Globulin Ratio 0.7L Height (Feet): 5 Height (Inches): 9.00 Weight (Pounds): 148 Objective General Appearance: no apparent distress, alert EENT: normal ENT inspection, TMs normal Neck: normal alignment, supple Cardiovascular: normal rate, regular rhythm Respiratory/Chest: lungs clear, normal breath sounds Abdomen: tender, distended Extremities: non-tender Edema: edema noted in b/l LE Neurologic: alert, oriented x 3 Skin: warm/dry Luc Sanchez Feb 10, 2018 08:15
[2018-02-10] MEDS: Magnesium Oxide 400mg tab ORAL SCH (08:16)
[2018-02-10] MEDS: oxyCODONE 5mg IR tab ORAL PRN ×2 (08:19→13:39)
[2018-02-10] MEDS ORDERED: Spironolactone 25mg tab ORAL SCH (09:00)
[2018-02-10] MEDS ORDERED: Xarelto 15mg tab ORAL SCH (09:00)
[2018-02-10] MEDS ORDERED: Furosemide 40mg tab ORAL SCH (09:00)
[2018-02-10] MEDS ORDERED: Allopurinol 100mg Tab ORAL SCH ×2 (09:00)
--- NOTE | 2018-02-10 09:51 | Nephrology Progress Note ---
Assessment/Plan Problem List: (1) Acute renal failure (ARF) Assessment: Cr lowering (2) EF < 20% (3) Cardiomyopathy due to hypertension, with heart failure (4) Hypothyroidism Assessment in med surg now Cardiomyopathy due to hypertension, with heart failure and Hypotension EF < 20% Chronic pain ARIS (acute kidney injury) due to cardiac and liver disease and low bp Hep C and Cirrhosis HypoThyroidism Cannabis abuse Plan change lasix to po PO digoxin- Optimize cardiac status Off Dobutamin Midodrine Synthroid PO now monitor renal parameters poor prognosis due to sever cardiac disease avoid nephrotoxics ? DC Subjective ROS Limited/Unobtainable: No Constitutional: Reports: other - stronger Objective Objective Last 24 Hour Vital Signs Date Time Temp Pulse Resp B/P (MAP) Pulse Ox O2 Delivery O2 Flow Rate FiO2 02/10/18 09:00 Room Air 02/10/18 08:18 76 02/10/18 08:16 76 114/67 02/10/18 08:00 98.1 76 18 114/67 (83) 100 98.1 02/10/18 04:15 97.7 68 18 117/70 (86) 99 97.7 02/09/18 21:00 Room Air 02/09/18 20:27 70 105/68 02/09/18 20:11 97.9 70 18 105/68 (80) 97 97.9 02/09/18 16:00 97.7 68 20 110/62 (78) 100 97.7 02/09/18 16:00 76 02/09/18 16:00 Room Air 02/09/18 12:00 Room Air 02/09/18 12:00 97.2 70 20 118/82 (94) 97 97.2 02/09/18 12:00 76 Intake and Output 02/09/18 02/10/18 19:00 07:00 Intake Total 600 ml 300 ml Output Total 1000 ml Balance -400 ml 300 ml Intake Oral 600 ml 300 ml Output Urine Total 1000 ml # Voids 4 3 # Bowel Movements 1 Laboratory Tests 02/10/18 05:20: White Blood Count 4.1L, Red Blood Count 4.45L, Hemoglobin 11.5L, Hematocrit 37.9L, Mean Corpuscular Volume 85, Mean Corpuscular Hemoglobin 26.0L, Mean Corpuscular Hemoglobin Concent 30.5L, Red Cell Distribution Width 20.4H, Platelet Count 214, Mean Platelet Volume 6.1L, Neutrophils (%) (Auto) 56.5, Lymphocytes (%) (Auto) 26.8, Monocytes (%) (Auto) 12.6H, Eosinophils (%) (Auto) 2.9, Basophils (%) (Auto) 1.2, Sodium Level 138, Potassium Level 4.3, Chloride Level 100, Carbon Dioxide Level 32, Anion Gap 6, Blood Urea Nitrogen 23H, Creatinine 1.5H, Estimat Glomerular Filtration Rate 57.1, Glucose Level 89, Calcium Level 9.0, Total Bilirubin 1.1H, Direct Bilirubin 0.6H, Aspartate Amino Transf (AST/SGOT) 24, Alanine Aminotransferase (ALT/SGPT) 21, Alkaline Phosphatase 99, Pro-B-Type Natriuretic Peptide 7184H, Total Protein 7.8, Albumin 3.3L, Globulin 4.5, Albumin/Globulin Ratio 0.7L Height (Feet): 5 Height (Inches): 9.00 Weight (Pounds): 148 General Appearance: no apparent distress Cardiovascular: normal rate Respiratory/Chest: lungs clear Abdomen: soft Objective no change Blaine Foss MD Feb 10, 2018 09:51
[2018-02-10 11:47] VITALS: BP 109/79
--- NOTE | 2018-02-10 12:05 | Pulmonology Progress Note ---
Assessment/Plan Problems: (1) ARIS (acute kidney injury) (2) ACS (acute coronary syndrome) (3) ICD (implantable cardioverter-defibrillator) in place (4) Emphysema lung (5) Cirrhosis (6) Hepatitis C (7) Lumbar radiculopathy (8) EF < 20% (9) Ascites Assessment/Plan walking in the room feeling better symptomatic treatment supportive care respiratory treatment titrate fio2 to sat of 92% pt is in better spirit ok to dc home Subjective ROS Limited/Unobtainable: No Constitutional: Reports: no symptoms HEENT: Repors: no symptoms Respiratory: Reports: no symptoms Allergies: Coded Allergies: HYDROMORPHONE (Verified Allergy, Unknown, 12/28/10) Objective Last 24 Hour Vital Signs Date Time Temp Pulse Resp B/P (MAP) Pulse Ox O2 Delivery O2 Flow Rate FiO2 02/10/18 11:47 97.0 70 18 109/79 (89) 99 97.0 02/10/18 09:00 Room Air 02/10/18 08:18 76 02/10/18 08:16 76 114/67 02/10/18 08:00 98.1 76 18 114/67 (83) 100 98.1 02/10/18 04:15 97.7 68 18 117/70 (86) 99 97.7 02/09/18 21:00 Room Air 02/09/18 20:27 70 105/68 02/09/18 20:11 97.9 70 18 105/68 (80) 97 97.9 02/09/18 16:00 97.7 68 20 110/62 (78) 100 97.7 02/09/18 16:00 76 02/09/18 16:00 Room Air Intake and Output 02/09/18 02/10/18 19:00 07:00 Intake Total 600 ml 300 ml Output Total 1000 ml Balance -400 ml 300 ml Intake Oral 600 ml 300 ml Output Urine Total 1000 ml # Voids 4 3 # Bowel Movements 1 General Appearance: WD/WN HEENT: normocephalic, atraumatic Respiratory/Chest: chest wall non-tender, lungs clear Cardiovascular: normal peripheral pulses, normal rate Abdomen: normal bowel sounds, soft, non tender Genitourinary: normal external genitalia Extremities: no cyanosis Neurologic/Psychiatric: jewel bearing maker II-XII grossly normal Laboratory Tests 02/10/18 05:20: White Blood Count 4.1L, Red Blood Count 4.45L, Hemoglobin 11.5L, Hematocrit 37.9L, Mean Corpuscular Volume 85, Mean Corpuscular Hemoglobin 26.0L, Mean Corpuscular Hemoglobin Concent 30.5L, Red Cell Distribution Width 20.4H, Platelet Count 214, Mean Platelet Volume 6.1L, Neutrophils (%) (Auto) 56.5, Lymphocytes (%) (Auto) 26.8, Monocytes (%) (Auto) 12.6H, Eosinophils (%) (Auto) 2.9, Basophils (%) (Auto) 1.2, Sodium Level 138, Potassium Level 4.3, Chloride Level 100, Carbon Dioxide Level 32, Anion Gap 6, Blood Urea Nitrogen 23H, Creatinine 1.5H, Estimat Glomerular Filtration Rate 57.1, Glucose Level 89, Calcium Level 9.0, Total Bilirubin 1.1H, Direct Bilirubin 0.6H, Aspartate Amino Transf (AST/SGOT) 24, Alanine Aminotransferase (ALT/SGPT) 21, Alkaline Phosphatase 99, Pro-B-Type Natriuretic Peptide 7184H, Total Protein 7.8, Albumin 3.3L, Globulin 4.5, Albumin/Globulin Ratio 0.7L Current Medications Medications (Trade) Dose Ordered Sig/Allyn Route PRN Reason Start Time Stop Time Status Last Admin Dose Admin Allopurinol (Zyloprim) 200 mg DAILY ORAL 02/10/18 09:00 03/12/18 08:59 02/10/18 08:18 Bisacodyl (Dulcolax) 5 mg DAILYPRN PRN ORAL Constipation 02/09/18 17:30 03/11/18 17:29 Carvedilol (Coreg) 3.125 mg EVERY 12 HOURS ORAL 02/09/18 21:00 03/11/18 08:59 02/10/18 08:16 Chlorhexidine Gluconate (Kalani-Hex 2%) 1 applic DAILY@1999 TOPIC 02/09/18 20:00 03/08/18 19:59 02/09/18 20:27 Digoxin (Lanoxin) 0.25 mg DAILY ORAL 02/10/18 09:00 03/10/18 11:59 02/10/18 08:18 Furosemide (Lasix) 40 mg DAILY ORAL 02/10/18 09:00 03/11/18 08:59 02/10/18 08:17 Gabapentin (Neurontin) 100 mg BID ORAL 02/09/18 18:00 03/05/18 08:59 02/10/18 08:18 Levothyroxine Sodium (Synthroid) 100 mcg DAILY@0630 ORAL 02/10/18 06:30 03/12/18 06:29 Magnesium Oxide (Mag-Ox 400mg) 400 mg TWICE A DAY ORAL 02/09/18 18:00 03/11/18 08:59 02/10/18 08:16 Midodrine (Pro-Amatine) 10 mg Q8H ORAL 02/10/18 17:00 03/06/18 16:59 Multivitamins (Multivitamins) 1 tab DAILY ORAL 02/10/18 09:00 03/05/18 08:59 02/10/18 08:18 Ondansetron HCl (Zofran) 4 mg Q8H PRN IVP Nausea & Vomiting 02/09/18 17:30 03/05/18 17:29 Oxycodone HCl (Roxicodone) 10 mg Q4H PRN ORAL Severe Pain (Pain Scale 7-10) 02/09/18 18:00 02/16/18 13:59 02/10/18 08:19 Pantoprazole (Protonix) 40 mg DAILY ORAL 02/10/18 09:00 03/05/18 08:59 02/10/18 08:18 Rivaroxaban (Xarelto) 15 mg DAILY ORAL 02/10/18 09:00 03/05/18 08:59 02/10/18 08:17 Spironolactone (Aldactone) 25 mg DAILY ORAL 02/10/18 09:00 03/05/18 08:59 02/10/18 08:16 Tizanidine HCl (Zanaflex) 4 mg THREE TIMES A DAY ORAL 02/09/18 18:00 03/05/18 08:59 02/10/18 08:16 Zolpidem Tartrate (Ambien) 5 mg HSPRN PRN ORAL Insomnia 02/09/18 21:00 02/16/18 20:59 02/09/18 22:45 Andrzej Chavarria MD Feb 10, 2018 12:05
--- NOTE | 2018-02-10 13:32 | General Progress Note ---
Assessment/Plan Problem List: (1) Cirrhosis ICD Codes: K74.60 - Unspecified cirrhosis of liver SNOMED: 88280941 (2) ACS (acute coronary syndrome) ICD Codes: I24.9 - Acute coronary syndrome SNOMED: 434296618 (3) Cirrhosis ICD Codes: K74.60 - Cirrhosis SNOMED: 14657942 (4) CHF (congestive heart failure) ICD Codes: I50.9 - Heart failure, unspecified SNOMED: 37273000 (5) ARIS (acute kidney injury) ICD Codes: N17.9 - Acute kidney failure, unspecified SNOMED: 92083391 Status: stable, progressing Assessment/Plan ot pt diet pain control dc w hh if clear by all Subjective Constitutional: Reports: weakness Allergies: Coded Allergies: HYDROMORPHONE (Verified Allergy, Unknown, 12/28/10) All Systems: reviewed and negative except above Subjective calm in bed Objective Last 24 Hour Vital Signs Date Time Temp Pulse Resp B/P (MAP) Pulse Ox O2 Delivery O2 Flow Rate FiO2 02/10/18 11:47 97.0 70 18 109/79 (89) 99 97.0 02/10/18 09:00 Room Air 02/10/18 08:18 76 02/10/18 08:16 76 114/67 02/10/18 08:00 98.1 76 18 114/67 (83) 100 98.1 02/10/18 04:15 97.7 68 18 117/70 (86) 99 97.7 02/09/18 21:00 Room Air 02/09/18 20:27 70 105/68 02/09/18 20:11 97.9 70 18 105/68 (80) 97 97.9 02/09/18 16:00 97.7 68 20 110/62 (78) 100 97.7 02/09/18 16:00 76 02/09/18 16:00 Room Air Intake and Output 02/09/18 02/10/18 19:00 07:00 Intake Total 600 ml 300 ml Output Total 1000 ml Balance -400 ml 300 ml Intake Oral 600 ml 300 ml Output Urine Total 1000 ml # Voids 4 3 # Bowel Movements 1 Laboratory Tests 02/10/18 05:20: White Blood Count 4.1L, Red Blood Count 4.45L, Hemoglobin 11.5L, Hematocrit 37.9L, Mean Corpuscular Volume 85, Mean Corpuscular Hemoglobin 26.0L, Mean Corpuscular Hemoglobin Concent 30.5L, Red Cell Distribution Width 20.4H, Platelet Count 214, Mean Platelet Volume 6.1L, Neutrophils (%) (Auto) 56.5, Lymphocytes (%) (Auto) 26.8, Monocytes (%) (Auto) 12.6H, Eosinophils (%) (Auto) 2.9, Basophils (%) (Auto) 1.2, Sodium Level 138, Potassium Level 4.3, Chloride Level 100, Carbon Dioxide Level 32, Anion Gap 6, Blood Urea Nitrogen 23H, Creatinine 1.5H, Estimat Glomerular Filtration Rate 57.1, Glucose Level 89, Calcium Level 9.0, Total Bilirubin 1.1H, Direct Bilirubin 0.6H, Aspartate Amino Transf (AST/SGOT) 24, Alanine Aminotransferase (ALT/SGPT) 21, Alkaline Phosphatase 99, Pro-B-Type Natriuretic Peptide 7184H, Total Protein 7.8, Albumin 3.3L, Globulin 4.5, Albumin/Globulin Ratio 0.7L Height (Feet): 5 Height (Inches): 9.00 Weight (Pounds): 148 General Appearance: alert EENT: normal ENT inspection Neck: normal alignment Cardiovascular: normal peripheral pulses, normal rate, regular rhythm Respiratory/Chest: chest wall non-tender, lungs clear, normal breath sounds Abdomen: normal bowel sounds, non tender, soft Extremities: normal inspection Edema: no edema noted Arm (L), no edema noted Arm (R), no edema noted Leg (L), no edema noted Leg (R), no edema noted Pedal (L), no edema noted Pedal (R), no edema noted Generalized Neurologic: responsive, motor weakness Skin: normal pigmentation, warm/dry Shahid Cherry DO Feb 10, 2018 13:32
--- NOTE | 2018-02-10 14:35 | GI Progress Note ---
Assessment/Plan Problems: (1) EF < 10% (2) Abdominal pain ICD Codes: R10.9 - Abdominal pain SNOMED: 83329624 Qualifiers: Qualified Codes: R10.84 - Generalized abdominal pain (3) Cirrhosis ICD Codes: K74.60 - Unspecified cirrhosis of liver SNOMED: 14425194 (4) Hepatitis C ICD Codes: B19.20 - Hepatitis C SNOMED: 15498120 (5) Cirrhosis ICD Codes: K74.60 - Unspecified cirrhosis of liver SNOMED: 42037077 (6) Ascites ICD Codes: R18.8 - Ascites SNOMED: 268691107 Status: stable Status Narrative Discussed with Dr. Ryan. Assessment/Plan hx of Hep C in 2014 s/p tx >> hep panel redrawn in 2016 was negative s/p colonoscopy with one polyp 06/26/16 fu cardiology recs paracentesis prn diuresis adv low sodium diet bowel regime zofran prn ppi pain mgmt fu labs could benefit from outpatient fibroid scan evaluate cirrhosis outpatient follow fu repeat colonoscopy in 2021 The patient was seen and examined at bedside and all new and available data was reviewed in the patients chart. I agree with the above findings, impression and plan. (Patient seen earlier today. Signature stamp does not reflect patient encounter time.). - Beto Ryan MD Subjective Subjective overall feels better Objective Last 24 Hour Vital Signs Date Time Temp Pulse Resp B/P (MAP) Pulse Ox O2 Delivery O2 Flow Rate FiO2 02/10/18 11:47 97.0 70 18 109/79 (89) 99 97.0 02/10/18 09:00 Room Air 02/10/18 08:18 76 02/10/18 08:16 76 114/67 02/10/18 08:00 98.1 76 18 114/67 (83) 100 98.1 02/10/18 04:15 97.7 68 18 117/70 (86) 99 97.7 02/09/18 21:00 Room Air 02/09/18 20:27 70 105/68 02/09/18 20:11 97.9 70 18 105/68 (80) 97 97.9 02/09/18 16:00 97.7 68 20 110/62 (78) 100 97.7 02/09/18 16:00 76 02/09/18 16:00 Room Air Intake and Output 02/09/18 02/10/18 19:00 07:00 Intake Total 600 ml 300 ml Output Total 1000 ml Balance -400 ml 300 ml Intake Oral 600 ml 300 ml Output Urine Total 1000 ml # Voids 4 3 # Bowel Movements 1 Laboratory Tests Test 02/10/18 05:20 White Blood Count 4.1 K/UL (4.8-10.8) L Red Blood Count 4.45 M/UL (4.70-6.10) L Hemoglobin 11.5 G/DL (14.2-18.0) L Hematocrit 37.9 % (42.0-52.0) L Mean Corpuscular Volume 85 FL (80-99) Mean Corpuscular Hemoglobin 26.0 PG (27.0-31.0) L Mean Corpuscular Hemoglobin Concent 30.5 G/DL (32.0-36.0) L Red Cell Distribution Width 20.4 % (11.6-14.8) H Platelet Count 214 K/UL (150-450) Mean Platelet Volume 6.1 FL (6.5-10.1) L Neutrophils (%) (Auto) 56.5 % (45.0-75.0) Lymphocytes (%) (Auto) 26.8 % (20.0-45.0) Monocytes (%) (Auto) 12.6 % (1.0-10.0) H Eosinophils (%) (Auto) 2.9 % (0.0-3.0) Basophils (%) (Auto) 1.2 % (0.0-2.0) Sodium Level 138 MMOL/L (136-145) Potassium Level 4.3 MMOL/L (3.5-5.1) Chloride Level 100 MMOL/L (98-107) Carbon Dioxide Level 32 MMOL/L (21-32) Anion Gap 6 mmol/L (5-15) Blood Urea Nitrogen 23 mg/dL (7-18) H Creatinine 1.5 MG/DL (0.55-1.30) H Estimat Glomerular Filtration Rate 57.1 mL/min (>60) Glucose Level 89 MG/DL (74-106) Calcium Level 9.0 MG/DL (8.5-10.1) Total Bilirubin 1.1 MG/DL (0.2-1.0) H Direct Bilirubin 0.6 MG/DL (0.0-0.3) H Aspartate Amino Transf (AST/SGOT) 24 U/L (15-37) Alanine Aminotransferase (ALT/SGPT) 21 U/L (12-78) Alkaline Phosphatase 99 U/L (46-116) Pro-B-Type Natriuretic Peptide 7184 pg/mL (0-125) H Total Protein 7.8 G/DL (6.4-8.2) Albumin 3.3 G/DL (3.4-5.0) L Globulin 4.5 g/dL Albumin/Globulin Ratio 0.7 (1.0-2.7) L Height (Feet): 5 Height (Inches): 9.00 Weight (Pounds): 148 General Appearance: WD/WN, no apparent distress, alert Cardiovascular: normal rate Respiratory/Chest: normal breath sounds, no respiratory distress Abdominal Exam: normal bowel sounds, non tender, soft Extremities: normal range of motion, non-tender Kiarra Bird NP Feb 10, 2018 14:35
--- NOTE | 2018-02-10 15:13 | Cardiac Electrophysiology PN ---
Assessment/Plan Assessment/Plan 1. Status post [employer] ICD upgrade to biventricular defibrillator by me in September 2017. ( No LV lead pending Pericardial lead placement ). Has a new right ventricular lead as the old lead was broken. 2. Paroxysmal atrial fibrillation, status post one Cryoablation and one radiofrequency ablation by me at [facility]. On Xarelto and digoxin. 3. Congestive heart failure. On Dobutamine. On Lasix 40 iv bid and aldactone. Resumed Coreg. 4. Renal failure. Cr now stable at 1.5 OK to DC Subjective Subjective Off Dobutamine. Tele is DCed Objective Last 24 Hour Vital Signs Date Time Temp Pulse Resp B/P (MAP) Pulse Ox O2 Delivery O2 Flow Rate FiO2 02/10/18 11:47 97.0 70 18 109/79 (89) 99 97.0 02/10/18 09:00 Room Air 02/10/18 08:18 76 02/10/18 08:16 76 114/67 02/10/18 08:00 98.1 76 18 114/67 (83) 100 98.1 02/10/18 04:15 97.7 68 18 117/70 (86) 99 97.7 02/09/18 21:00 Room Air 02/09/18 20:27 70 105/68 02/09/18 20:11 97.9 70 18 105/68 (80) 97 97.9 02/09/18 16:00 97.7 68 20 110/62 (78) 100 97.7 02/09/18 16:00 76 02/09/18 16:00 Room Air Intake and Output 02/09/18 02/10/18 19:00 07:00 Intake Total 600 ml 300 ml Output Total 1000 ml Balance -400 ml 300 ml Intake Oral 600 ml 300 ml Output Urine Total 1000 ml # Voids 4 3 # Bowel Movements 1 Laboratory Tests Test 02/10/18 05:20 White Blood Count 4.1 K/UL (4.8-10.8) L Red Blood Count 4.45 M/UL (4.70-6.10) L Hemoglobin 11.5 G/DL (14.2-18.0) L Hematocrit 37.9 % (42.0-52.0) L Mean Corpuscular Volume 85 FL (80-99) Mean Corpuscular Hemoglobin 26.0 PG (27.0-31.0) L Mean Corpuscular Hemoglobin Concent 30.5 G/DL (32.0-36.0) L Red Cell Distribution Width 20.4 % (11.6-14.8) H Platelet Count 214 K/UL (150-450) Mean Platelet Volume 6.1 FL (6.5-10.1) L Neutrophils (%) (Auto) 56.5 % (45.0-75.0) Lymphocytes (%) (Auto) 26.8 % (20.0-45.0) Monocytes (%) (Auto) 12.6 % (1.0-10.0) H Eosinophils (%) (Auto) 2.9 % (0.0-3.0) Basophils (%) (Auto) 1.2 % (0.0-2.0) Sodium Level 138 MMOL/L (136-145) Potassium Level 4.3 MMOL/L (3.5-5.1) Chloride Level 100 MMOL/L (98-107) Carbon Dioxide Level 32 MMOL/L (21-32) Anion Gap 6 mmol/L (5-15) Blood Urea Nitrogen 23 mg/dL (7-18) H Creatinine 1.5 MG/DL (0.55-1.30) H Estimat Glomerular Filtration Rate 57.1 mL/min (>60) Glucose Level 89 MG/DL (74-106) Calcium Level 9.0 MG/DL (8.5-10.1) Total Bilirubin 1.1 MG/DL (0.2-1.0) H Direct Bilirubin 0.6 MG/DL (0.0-0.3) H Aspartate Amino Transf (AST/SGOT) 24 U/L (15-37) Alanine Aminotransferase (ALT/SGPT) 21 U/L (12-78) Alkaline Phosphatase 99 U/L (46-116) Pro-B-Type Natriuretic Peptide 7184 pg/mL (0-125) H Total Protein 7.8 G/DL (6.4-8.2) Albumin 3.3 G/DL (3.4-5.0) L Globulin 4.5 g/dL Albumin/Globulin Ratio 0.7 (1.0-2.7) L Objective HEAD AND NECK: Positive JVD. LUNGS: Shows coarse rhonchi. CARDIOVASCULAR: Regular S1 and S2 with no murmur or gallop. Defibrillator is in the left subclavian. ABDOMEN: Soft, no ascites. EXTREMITIES: No pitting edema. Rc Zhang MD Feb 10, 2018 15:13
[2018-02-10 16:00] VITALS: BP 123/76
[2018-02-10] MEDS ORDERED: Midodrine 10mg tab ORAL SCH (17:00)
--- NOTE | 2018-02-11 08:26 | Discharge Summary ---
Discharge Summary Discharge Summary _ DATE OF ADMISSION: 02/02/2018 DATE OF DISCHARGE: 02/10/2018 REASON FOR ADMISSION: 62 years old male with past medical history significant for hypertension, severe cardiomyopathy with ejection fraction less than 10%, coronary artery disease, congestive heart failure, COPD/emphysema, AICD, liver cirrhosis with portal hypertension, atrial flutter/ fibrillation , history of hepatitis C , presented with complaint of chest pain and abdominal pain. He had symptoms similar to previous episodes. He reported pain 10 out of 10. No nausea, no vomiting. No fever, no chills. Upon evaluation vital signs were stable. Laboratory work revealed no leukocytosis, hemoglobin 11.5 ,hematocrit 36.9. Potassium 6.0. BUN 15, creatinine 2.1. AST 58. Total bilirubin 2.8, direct bilirubin 1.0. Troponin negative. Pro BNP 46387. EKG revealed atrial flutter with controlled ventricular rate. Chest x-ray demonstrated cardiomegaly and minimal interstitial congestion. Patient admitted with diagnoses of chest pain, rule out acute coronary syndrome , abdominal pain, CHF, cardiomyopathy ,acute renal failure ,chronic pain syndrome, hyperkalemia. CONSULTANTS: manager market intelligence Dr. Flower cardiac electrophysiology Dr. Zhang pulmonary Dr. Chavarria GI specialist buckle wire inserter Dr. Rojas pain specialist Dr. Carson HOSPITAL COURSE: Patient admitted to telemetry floor. Serial troponin were negative . EKG revealed no acute ischemic changes. Health Occupations Teacher and cardiac apple picking supervisor closely followed. Patient was ruled out for acute OR. Echocardiogram done on previous admission earlier this month, revealed ejection fraction less than 10%. Patient was on diuresis with Lasix and Aldactone. Volumes and cardiorenal parameters were closely monitored. On 02/04 patient developed severe hypotension and required pressors for hemodynamic support. Central line was placed by emergency room physician . Patient started on pressors to keep mean arterial pressure above 65. Anti- failure medications were on hold due to severe hypotension. Patient eventually was able to be weaned from pressors Patient started on midodrine. Blood pressures stabilized . Anti-failure medications resumed including digoxin, Lasix,Aldactone and beta sina. Anticoagulation therapy with Xarelto was continued. GI prophylaxis provided. Pro BNP trending down. Senior Report Developer closely followed. Patient had acute renal failure due to cardiac and liver disease. Renal parameters and electrolytes were closely monitored. Electrolytes corrected as needed. Nephrotoxins were avoided. Prior to discharge BUN 23 creatinine 1.5 , potassium stable. Patient found to have hypothyroidism and started on Synthroid. Check TSH in 4 weeks. Textile Science Technician followed.. Supplemental oxygen provided as needed to keep pulse oximetry above 92%. Pulmonary toilet provided as needed. Patient was followed up with chest x-ray , no evidence of acute cardiopulmonary pathology. GI specialist closely followed. Patient with history of hepatitis C diagnosed in 2014, status post treatment. Hepatitis panel was redrawn in 2016 and was negative. Patient undergone colonoscopy with polyp removal in June 2016. Patient had liver cirrhosis with portal hypertension and recurrent ascites. At this point no need for paracentesis. Patient was on low-sodium cardiac diet. LFT and bilirubin were closely monitored, trending down. Abdominal pain likely due to liver cirrhosis, Bowel regimen instituted. The patient was on GI prophylaxis. The patient would benefit from outpatient fibroid scan to evaluate cirrhosis. GI recommended outpatient follow-up and repeat colonoscopy in 2021. Pain management was provided as per pain specialist recommendation, who closely followed. Patient with lumbar degenerative disc disease along with lumbar radiculopathy. Patient stabilized and was ready for discharge home with home health services. Overall prognosis poor due to severe cardiac disease FINAL DIAGNOSES: Acute renal failure Hyperkalemia Chronic systolic CHF Severe cardiomyopathy with ejection fraction less than 10% Hypotension s/p [employer] ICD, upgraded to by ventricular defibrillator Paroxysmal atrial fibrillation, status post cryoablation and radiofrequency ablation Severe pulmonary hypertension Emphysema Lumbar radiculopathy Lumbar degenerative disc disease Chronic pain syndrome Hypothyroidism Hepatitis C, Liver cirrhosis with portal hypertension DISCHARGE MEDICATIONS: List of medication was sent with patient. DISCHARGE INSTRUCTIONS: Patient was discharged home with home health services. Follow up with primary care provider in one week. I have been assigned to dictate discharge summary for this account. I was not involved in the patient's management. Aarti Bryant NP Feb 11, 2018 08:26
== END 2018-02-10 16:55 | disposition home health service (06) | DRG 683 ==
LOC: EMR 22:12 → 2E 22:29 → EDBEDREQ 23:29 → ICU 02-03 21:15 → 2W 02-04 15:06 → 4W 02-09 16:45
PROC: 02HV33Z Insertion of Infusion Device into Superior Vena Cava, Percutaneous Approach (ICD-10-PCS; principal; 2018-02-06)
DX: N17.9 Acute kidney failure, unspecified (principal); R18.8 Other ascites; K76.6 Portal hypertension; I50.22 Chronic systolic (congestive) heart failure; I42.9 Cardiomyopathy, unspecified; I48.92 Unspecified atrial flutter; I11.0 Hypertensive heart disease with heart failure; K74.60 Unspecified cirrhosis of liver; Z88.6 Allergy status to analgesic agent; R13.10 Dysphagia, unspecified; Z95.810 Presence of automatic (implantable) cardiac defibrillator; E87.5 Hyperkalemia; I95.9 Hypotension, unspecified; I48.0 Paroxysmal atrial fibrillation; M51.16 Intervertebral disc disorders with radiculopathy, lumbar region; G89.4 Chronic pain syndrome; E03.9 Hypothyroidism, unspecified; E66.9 Obesity, unspecified; I27.20 Pulmonary hypertension, unspecified; Z86.19 Personal history of other infectious and parasitic diseases; F12.10 Cannabis abuse, uncomplicated; M47.896 Other spondylosis, lumbar region; Z79.01 Long term (current) use of anticoagulants; I99.8 Other disorder of circulatory system; J43.9 Emphysema, unspecified; R10.9 Unspecified abdominal pain
CPT/HCPCS: 36415; 36569; 71045; 76937; 80048; 80053; 80061; 80076; 80162; 80307; 81003; 82140; 82248; 82533; 82550; 82553; 82977; 83036; 83735; 83880; 84100; 84132; 84443; 84484; 84550; 85025; 85610; 85730; 86140; 87070; 93005; 99285; J2405

== ENCOUNTER 2018-05-03 16:49 | Inpatient (IN) | payer MEDICARE, MEDICAID ==
[~2018-05-03] VITALS: Ht 175.3 cm; Wt 69.4 kg
[2018-05-03 07:30] VITALS: BP 127/96
[2018-05-03] MEDS ORDERED: DOBUTAMINE IV (17:09)
[2018-05-03 17:10] VITALS: BP 124/86
[2018-05-03] MEDS ORDERED: Morphine Sulfate 4mg/ml Inj (IV/IM USE ONLY) IVP ONE (17:15)
[2018-05-03] MEDS ORDERED: CARVEDILOL3.125 MG ORAL (17:44)
[2018-05-03] MEDS ORDERED: MULTIVITAMINS1 EAC2 ORAL (17:44)
[2018-05-03] MEDS ORDERED: GABAPENTIN100 MG ORAL (17:44)
[2018-05-03] MEDS ORDERED: FUROSEMIDE20 M1 ORAL (17:44)
[2018-05-03 17:47] LABS: BASOPHILS % (AUTO) 3.3 % (0.0-2.0); EOSINOPHILS % (AUTO) 0.5 % (0.0-3.0); HEMATOCRIT 32.7 % (42.0-52.0); HEMOGLOBIN 10.5 G/DL (14.2-18.0); LYMPHOCYTES % (AUTO) 17.8 % (20.0-45.0); MEAN CORPUSCULAR VOLUME 85 FL (80-99); MONOCYTES % (AUTO) 10.5 % (1.0-10.0); PLATELET COUNT 204 K/UL (150-450); RED BLOOD COUNT 3.83 M/UL (4.70-6.10); RED CELL DISTRIBUTION WIDTH 21.2 % (11.6-14.8); WHITE BLOOD COUNT 4.8 K/UL (4.8-10.8)
[2018-05-03 17:57] LABS: ANION GAP 13 mmol/L (5-15); BLOOD UREA NITROGEN 24 mg/dL (7-18); CARBON DIOXIDE 24 MMOL/L (21-32); CHLORIDE 100 MMOL/L (98-107); CREATININE 1.5 MG/DL (0.55-1.30); POTASSIUM 4.5 MMOL/L (3.5-5.1); SODIUM 137 MMOL/L (136-145)
[2018-05-03 18:10] LABS: ALANINE AMINOTRANSFERASE 18 U/L (12-78); ALBUMIN 3.2 G/DL (3.4-5.0); ALBUMIN/GLOBULIN RATIO 0.7 (1.0-2.7); ALKALINE PHOSPHATASE 130 U/L (46-116); ASPARTATE AMINO TRANSFERASE 30 U/L (15-37); BILIRUBIN,TOTAL 2.4 MG/DL (0.2-1.0); CKMB 1.5 NG/ML (0.0-3.6); CREATINE KINASE 111 U/L (26-308)
[2018-05-03 18:12] LABS: BILIRUBIN,DIRECT 1.4 MG/DL (0.0-0.3)
[2018-05-03 18:42] LABS: INR 1.7 (0.9-1.1)
[2018-05-03] MEDS ORDERED: LORazepam Inj 2mg/ml 1ml IV PRN (19:00)
[2018-05-03] MEDS ORDERED: Mylanta II UD 30ml ORAL PRN (19:00)
[2018-05-03] MEDS ORDERED: Miralax 17gm pkt ORAL PRN (19:00)
[2018-05-03 19:07] VITALS: BP 135/93
--- NOTE | 2018-05-03 19:19 | Emergency Room Report ---
History of Present Illness General Chief Complaint: Chest Pain Source: Patient Present Illness HPI 62-year-old male presents ED for evaluation of chest pain and abdominal pain for the last 3 days. States pain is sharp, 8 out of 10, nonradiating. States his abdomen feels distended. History of cirrhosis. Patient states that he has a PICC line and was placed on dobutamine drip by Dr. Khan. Patient does not know why he was placed on a drip. States he was recently admitted to [facility]. Notes leg swelling. Denies shortness of breath. No other aggravating relieving factors. Denies any other associated symptoms Allergies: Coded Allergies: HYDROMORPHONE (Verified Allergy, Unknown, 12/28/10) Patient History Past Surgical History: none Pertinent Family History: none Social History: Denies: smoking, alcohol use, drug use Immunizations: UTD Reviewed Nursing Documentation: PMH: Agreed; PSxH: Agreed Nursing Documentation-PMH Past Medical History: No History, Except For Hx Cardiac Problems: Yes Hx Hypertension: Yes Hx Pacemaker: Yes - Left upper chest defibrilator Hx COPD: Yes Hx Cancer: No Hx Gastrointestinal Problems: Yes Hx Neurological Problems: No Hx Cerebrovascular Accident: No Hx Transient Ischemic Attacks: No Review of Systems All Other Systems: negative except mentioned in HPI Physical Exam Vital Signs Date Time Temp Pulse Resp B/P (MAP) Pulse Ox O2 Delivery O2 Flow Rate FiO2 05/03/18 16:52 87 24 Room Air 05/03/18 16:52 98.1 119/75 99 Sp02 EP Interpretation: reviewed, normal General Appearance: no apparent distress, alert, GCS 15, non-toxic Head: normocephalic, atraumatic Eyes: bilateral eye normal inspection, bilateral eye PERRL ENT: hearing grossly normal, normal pharynx, no angioedema, normal voice Neck: full range of motion, supple/symm/no masses Respiratory: chest non-tender, lungs clear, normal breath sounds, speaking full sentences Cardiovascular #1: regular rate, rhythm, no edema Cardiovascular #2: 2+ carotid (R), 2+ carotid (L), 2+ radial (R), 2+ radial (L) , 2+ dorsalis pedis (R), 2+ dorsalis pedis (L) Gastrointestinal: normal bowel sounds, soft, non-distended, no guarding, no rebound, distended Rectal: deferred Genitourinary: normal inspection, no CVA tenderness Musculoskeletal: back normal, gait/station normal, normal range of motion, non- tender Neurologic: alert, oriented x3, responsive, motor strength/tone normal, sensory intact, speech normal Psychiatric: judgement/insight normal, memory normal, mood/affect normal, no suicidal/homicidal ideation Reflexes: 3+ bicep (R), 3+ bicep (L), 3+ tricep (R), 3+ tricep (L), 3+ knee (R) , 3+ knee (L) Skin: normal color, no rash, warm/dry, well hydrated Lymphatic: no adenopathy Procedures Critical Care Time Critical Care Time i. I feel this is a highly complex case requiring extensive working including EKG/Rhythm strip, Xray/CT/US, Blood/urine lab work, repeat exams while in ED, and administration of strong opiates/narcotics for pain control, admission to hospital or close patient follow up. Total time: 30 min bedside evaluation and treatment excludes procedures (EKG). Reason for critical care: chest pain. abd pain. EF < 10% Possible complications: hypotension, hypertension, OR, shock, arrhythmias, metabolic acidosis, end organ damage, respiratory failure. Interventions: labs, EKG, CXR, morphine. continue dobumatine drip. add lasix drip. consultation with cardiology Course: Patient presenting with chest pain and abdominal pain history of ejection fraction less than 10, history of cirrhosis. Recently placed on dobutamine drip for poor ejection fraction by Dr Mills. trop negative. EKG shows no acute ischemic changes. discussed with Dr Khan. contniue dobutamine drip. start lasix drip. patient will require paracente Consultations: nursing staff, EMS, family Performed by: Dr Nicholson Tolerated well condition = serious j. because of unstable vital signs this patient had a condition that could potentially threaten life or limb. I feel this is a critical patient who required my full attention while patient was considered critical. Total Critical Care Time excluding procedures was greater than 35 minutes Medical Decision Making Diagnostic Impression: Primary Impression: ACS (acute coronary syndrome) Additional Impressions: Cirrhosis Qualified Codes: K74.60 - Unspecified cirrhosis of liver; R18.8 - Other ascites ICD (implantable cardioverter-defibrillator) in place EF < 10% Labs Test 05/03/18 17:35 18 18:25 05/03/18 18:35 White Blood Count 4.8 K/UL (4.8-10.8) Red Blood Count 3.83 M/UL (4.70-6.10) Hemoglobin 10.5 G/DL (14.2-18.0) Hematocrit 32.7 % (42.0-52.0) Mean Corpuscular Volume 85 FL (80-99) Mean Corpuscular Hemoglobin 27.3 PG (27.0-31.0) Mean Corpuscular Hemoglobin Concent 31.9 G/DL (32.0-36.0) Red Cell Distribution Width 21.2 % (11.6-14.8) Platelet Count 204 K/UL (150-450) Mean Platelet Volume 6.0 FL (6.5-10.1) Neutrophils (%) (Auto) 68.0 % (45.0-75.0) Lymphocytes (%) (Auto) 17.8 % (20.0-45.0) Monocytes (%) (Auto) 10.5 % (1.0-10.0) Eosinophils (%) (Auto) 0.5 % (0.0-3.0) Basophils (%) (Auto) 3.3 % (0.0-2.0) Sodium Level 137 MMOL/L (136-145) Potassium Level 4.5 MMOL/L (3.5-5.1) Chloride Level 100 MMOL/L (98-107) Carbon Dioxide Level 24 MMOL/L (21-32) Anion Gap 13 mmol/L (5-15) Blood Urea Nitrogen 24 mg/dL (7-18) Creatinine 1.5 MG/DL (0.55-1.30) Estimat Glomerular Filtration Rate 57.1 mL/min (>60) Glucose Level 84 MG/DL (74-106) Calcium Level 9.0 MG/DL (8.5-10.1) Total Bilirubin 2.4 MG/DL (0.2-1.0) Direct Bilirubin 1.4 MG/DL (0.0-0.3) Aspartate Amino Transf (AST/SGOT) 30 U/L (15-37) Alanine Aminotransferase (ALT/SGPT) 18 U/L (12-78) Alkaline Phosphatase 130 U/L (46-116) Total Creatine Kinase 111 U/L (26-308) Creatine Kinase MB 1.5 NG/ML (0.0-3.6) Creatine Kinase MB Relative Index 1.3 Troponin I 0.032 ng/mL (0.000-0.056) Pro-B-Type Natriuretic Peptide 32095 pg/mL (0-125) Total Protein 8.1 G/DL (6.4-8.2) Albumin 3.2 G/DL (3.4-5.0) Globulin 4.9 g/dL Albumin/Globulin Ratio 0.7 (1.0-2.7) Prothrombin Time 17.8 SEC (9.30-11.50) Prothromb Time International Ratio 1.7 (0.9-1.1) Activated Partial Thromboplast Time 31 SEC (23-33) Urine Opiates Screen Negative (NEGATIVE) Urine Barbiturates Screen Negative (NEGATIVE) Phencyclidine (PCP) Screen Negative (NEGATIVE) Urine Amphetamines Screen Negative (NEGATIVE) Urine Benzodiazepines Screen Negative (NEGATIVE) Urine Cocaine Screen Negative (NEGATIVE) Urine Marijuana (THC) Screen Positive (NEGATIVE) EKG Diagnostic Results Rate: normal Rhythm: other - afib ST Segments: no acute changes ASA given to the pt in ED: Yes Rhythm Strip Diag. Results EP Interpretation: yes Rhythm: no PVC's, no ectopy Chest X-Ray Diagnostic Results Chest X-Ray Diagnostic Results : Chest X-Ray Ordered: Yes # of Views/Limited/Complete: 1 View Indication: Chest Pain EP Interpretation: Yes Interpretation: no pneumothorax, no acute cardiopulmonary disease, other - cardiomegaly. ICD Impression: Other - cardiomegaly Electronically Signed by: Electronically signed by Suhas Nicholson MD Last Vital Signs Date Time Temp Pulse Resp B/P (MAP) Pulse Ox O2 Delivery O2 Flow Rate FiO2 05/03/18 19:07 98.0 84 17 135/93 100 Room Air Status: improved Disposition: ADMITTED INPATIENT Condition: Serious Referrals: Shahid Cherry DO (PCP) Suhas Nicholson MD May 03, 2018 19:19
[2018-05-03] MEDS: oxyCODONE 15mg IR tab ORAL PRN (22:31)
[2018-05-03] MEDS: DOBUTamine 250mg/250ml Premix 250 ML IV SCH (22:59)
[2018-05-04] VITALS: BP 146/93
[2018-05-04 04:00] VITALS: BP 137/74
[2018-05-04 04:37] LABS: BASOPHILS % (AUTO) 1.2 % (0.0-2.0); EOSINOPHILS % (AUTO) 1.4 % (0.0-3.0); HEMATOCRIT 30.6 % (42.0-52.0); HEMOGLOBIN 9.6 G/DL (14.2-18.0); LYMPHOCYTES % (AUTO) 18.9 % (20.0-45.0); MEAN CORPUSCULAR VOLUME 83 FL (80-99); MONOCYTES % (AUTO) 14.9 % (1.0-10.0); NEUTROPHILS % (AUTO) 63.5 % (45.0-75.0); PLATELET COUNT 192 K/UL (150-450); RED BLOOD COUNT 3.67 M/UL (4.70-6.10); RED CELL DISTRIBUTION WIDTH 21.2 % (11.6-14.8); WHITE BLOOD COUNT 3.9 K/UL (4.8-10.8)
[2018-05-04 05:01] LABS: ALANINE AMINOTRANSFERASE 12 U/L (12-78); ALBUMIN 2.9 G/DL (3.4-5.0); ALBUMIN/GLOBULIN RATIO 0.6 (1.0-2.7); ALKALINE PHOSPHATASE 116 U/L (46-116); ANION GAP 9 mmol/L (5-15); ASPARTATE AMINO TRANSFERASE 21 U/L (15-37); BILIRUBIN,TOTAL 2.1 MG/DL (0.2-1.0); BLOOD UREA NITROGEN 23 mg/dL (7-18); CALCIUM 8.8 MG/DL (8.5-10.1); CARBON DIOXIDE 27 MMOL/L (21-32); CHLORIDE 101 MMOL/L (98-107); CHOLESTEROL 115 MG/DL (< 200); CREATININE 1.5 MG/DL (0.55-1.30); HDL CHOLESTEROL 45 MG/DL (40-60); POTASSIUM 3.9 MMOL/L (3.5-5.1); SODIUM 137 MMOL/L (136-145); TRIGLYCERIDES 43 MG/DL (30-150)
[2018-05-04 05:09] LABS: BILIRUBIN,DIRECT 1.2 MG/DL (0.0-0.3)
[2018-05-04] MEDS: Levothyroxine 125mcg tab ORAL SCH (06:05)
[2018-05-04 08:00] VITALS: BP 116/72
[2018-05-04] MEDS: Spironolactone 50mg tab ORAL SCH (08:46)
[2018-05-04] MEDS: Digoxin 0.125mg tab ORAL SCH (08:46)
[2018-05-04] MEDS ORDERED: Dyna-Hex 2% Top Sol 2oz TOPIC SCH (09:00)
[2018-05-04] MEDS: DOBUTamine 250mg/250ml Premix 250 ML IV SCH ×4 (09:16→20:11)
--- NOTE | 2018-05-04 10:04 | Consultation ---
History of Present Illness General Date patient seen: May 04, 2018 Chief Complaint: Chest Pain Present Illness HPI 62-year-old male with a history of severe cardiomyopathy with ejection fraction less than 10%. 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 This is similar to previous episode. He is admitted for further evaluation. Allergies: Coded Allergies: HYDROMORPHONE (Verified Allergy, Unknown, 12/28/10) Medication History Scheduled Carvedilol* (Carvedilol*), 3.125 MG ORAL DAILY, (Reported) Digoxin* (Digoxin*), 125 MCG ORAL DAILY, (Reported) Furosemide* (Lasix*), 20 MG ORAL DAILY, (Reported) Gabapentin* (Gabapentin*), 100 MG ORAL DAILY, (Reported) Levothyroxine Sodium* (Levothyroxine Sodium*), 125 MCG ORAL BEFORE BREAKFAST, ( Reported) Lisinopril (Lisinopril*), 5 MG ORAL DAILY, (Reported) Multivitamins* (Multivitamins*), 1 TAB ORAL DAILY, (Reported) Rivaroxaban (Xarelto*), 15 MG ORAL DAILY, (Reported) Spironolactone* (Spironolactone*), 25 MG ORAL DAILY, (Reported) Scheduled PRN OXYCODONE HCl* (Roxicodone*), 15 MG ORAL Q6H PRN for For Pain, (Reported) Ondansetron* (Zofran*), 4 MG ORAL Q8HR PRN for Nausea & Vomiting, (Reported) Discontinued Medications Ascorbic Acid* (Vitamin C*), 500 MG ORAL DAILY, (Reported) Discontinued Reason: Pt stopped taking med Bisacodyl (Dulcolax), 10 MG RC DAILY PRN for Constipation, (Reported) Discontinued Reason: Pt stopped taking med Diphenhydramine Hcl* (Diphenhydramine Hcl*), 25 MG ORAL Q8H PRN for Itching, ( Reported) Discontinued Reason: Pt stopped taking med Ferrous Sulfate* (Ferrous Sulfate*), 325 MG ORAL DAILY, (Reported) Discontinued Reason: Pt stopped taking med Magnesium Hydroxide* (Milk Of Magnesia*), 30 ML ORAL DAILY PRN for Constipation, (Reported) Discontinued Reason: Pt stopped taking med Pantoprazole* (Protonix*), 40 MG ORAL DAILY, (Reported) Discontinued Reason: Pt stopped taking med Sotalol Hcl (Sotalol*), 80 MG ORAL BID, (Reported) Discontinued Reason: Pt stopped taking med Tizanidine Hcl* (Zanaflex*), 4 MG ORAL THREE TIMES A DAY, (Reported) Discontinued Reason: Pt stopped taking med Patient History Healthcare decision maker SELF Resuscitation status Advanced Directive on File No Past Medical/Surgical History Past Medical/Surgical History: (1) Emphysema lung (2) Hypothyroidism (3) EF < 20% (4) Hepatitis C (5) Cirrhosis (6) EF < 10% Review of Systems All Other Systems: negative except mentioned in HPI Physical Exam General Appearance: cachetic Lines, tubes and drains: peripheral HEENT: normocephalic, atraumatic Neck: non-tender, normal alignment Respiratory/Chest: chest wall non-tender, lungs clear Breasts: no masses Cardiovascular/Chest: normal rate, regular rhythm Abdomen: normal bowel sounds, non tender Last 24 Hour Vital Signs Date Time Temp Pulse Resp B/P (MAP) Pulse Ox O2 Delivery O2 Flow Rate FiO2 05/04/18 09:16 116/72 05/04/18 08:46 79 05/04/18 08:45 79 116/72 05/04/18 08:00 97.0 79 20 116/72 (87) 99 05/04/18 04:00 83 05/04/18 04:00 97.3 99 16 137/74 (95) 100 05/04/18 04:00 Room Air 05/04/18 00:00 Room Air 05/04/18 00:00 96 05/04/18 00:00 97.3 93 16 146/93 (110) 100 05/03/18 22:59 115/75 05/03/18 20:00 80 05/03/18 20:00 Room Air 05/03/18 19:52 Room Air 05/03/18 19:50 Room Air 05/03/18 19:39 98.0 84 17 135/93 100 Room Air 05/03/18 19:07 98.0 84 17 135/93 100 Room Air 05/03/18 18:12 98.0 05/03/18 17:10 97.8 85 16 124/86 100 Room Air 05/03/18 16:52 98.1 87 24 119/75 99 Room Air 05/03/18 16:52 87 24 Room Air Intake and Output 05/03/18 05/04/18 18:59 06:59 Intake Total 754.167 ml Output Total 0 ml 2000 ml Balance 0 ml -1245.833 ml Intake Oral 480 ml IV Total 274.167 ml Output Urine Total 0 ml 2000 ml # Bowel Movements 2 Laboratory Tests Test 05/03/18 17:35 05/03/18 18:25 05/03/18 18:35 05/04/18 03:40 White Blood Count 4.8 K/UL (4.8-10.8) 3.9 K/UL (4.8-10.8) L Red Blood Count 3.83 M/UL (4.70-6.10) L 3.67 M/UL (4.70-6.10) L Hemoglobin 10.5 G/DL (14.2-18.0) L 9.6 G/DL (14.2-18.0) L Hematocrit 32.7 % (42.0-52.0) L 30.6 % (42.0-52.0) L Mean Corpuscular Volume 85 FL (80-99) 83 FL (80-99) Mean Corpuscular Hemoglobin 27.3 PG (27.0-31.0) 26.1 PG (27.0-31.0) L Mean Corpuscular Hemoglobin Concent 31.9 G/DL (32.0-36.0) L 31.3 G/DL (32.0-36.0) L Red Cell Distribution Width 21.2 % (11.6-14.8) H 21.2 % (11.6-14.8) H Platelet Count 204 K/UL (150-450) 192 K/UL (150-450) Mean Platelet Volume 6.0 FL (6.5-10.1) L 5.9 FL (6.5-10.1) L Neutrophils (%) (Auto) 68.0 % (45.0-75.0) 63.5 % (45.0-75.0) Lymphocytes (%) (Auto) 17.8 % (20.0-45.0) L 18.9 % (20.0-45.0) L Monocytes (%) (Auto) 10.5 % (1.0-10.0) H 14.9 % (1.0-10.0) H Eosinophils (%) (Auto) 0.5 % (0.0-3.0) 1.4 % (0.0-3.0) Basophils (%) (Auto) 3.3 % (0.0-2.0) H 1.2 % (0.0-2.0) Sodium Level 137 MMOL/L (136-145) 137 MMOL/L (136-145) Potassium Level 4.5 MMOL/L (3.5-5.1) 3.9 MMOL/L (3.5-5.1) Chloride Level 100 MMOL/L (98-107) 101 MMOL/L (98-107) Carbon Dioxide Level 24 MMOL/L (21-32) 27 MMOL/L (21-32) Anion Gap 13 mmol/L (5-15) 9 mmol/L (5-15) Blood Urea Nitrogen 24 mg/dL (7-18) H 23 mg/dL (7-18) H Creatinine 1.5 MG/DL (0.55-1.30) H 1.5 MG/DL (0.55-1.30) H Estimat Glomerular Filtration Rate 57.1 mL/min (>60) 57.1 mL/min (>60) Glucose Level 84 MG/DL (74-106) 102 MG/DL (74-106) Calcium Level 9.0 MG/DL (8.5-10.1) 8.8 MG/DL (8.5-10.1) Total Bilirubin 2.4 MG/DL (0.2-1.0) H 2.1 MG/DL (0.2-1.0) H Direct Bilirubin 1.4 MG/DL (0.0-0.3) H 1.2 MG/DL (0.0-0.3) H Aspartate Amino Transf (AST/SGOT) 30 U/L (15-37) 21 U/L (15-37) Alanine Aminotransferase (ALT/SGPT) 18 U/L (12-78) 12 U/L (12-78) Alkaline Phosphatase 130 U/L (46-116) H 116 U/L (46-116) Total Creatine Kinase 111 U/L (26-308) Creatine Kinase MB 1.5 NG/ML (0.0-3.6) Creatine Kinase MB Relative Index 1.3 Troponin I 0.032 ng/mL (0.000-0.056) Pro-B-Type Natriuretic Peptide 20811 pg/mL (0-125) H Total Protein 8.1 G/DL (6.4-8.2) 7.6 G/DL (6.4-8.2) Albumin 3.2 G/DL (3.4-5.0) L 2.9 G/DL (3.4-5.0) L Globulin 4.9 g/dL 4.7 g/dL Albumin/Globulin Ratio 0.7 (1.0-2.7) L 0.6 (1.0-2.7) L Prothrombin Time 17.8 SEC (9.30-11.50) H Prothromb Time International Ratio 1.7 (0.9-1.1) H Activated Partial Thromboplast Time 31 SEC (23-33) Urine Opiates Screen Negative (NEGATIVE) Urine Barbiturates Screen Negative (NEGATIVE) Phencyclidine (PCP) Screen Negative (NEGATIVE) Urine Amphetamines Screen Negative (NEGATIVE) Urine Benzodiazepines Screen Negative (NEGATIVE) Urine Cocaine Screen Negative (NEGATIVE) Urine Marijuana (THC) Screen Positive (NEGATIVE) H Triglycerides Level 43 MG/DL (30-150) Cholesterol Level 115 MG/DL (< 200) LDL Cholesterol 76 mg/dL (<100) HDL Cholesterol 45 MG/DL (40-60) Cholesterol/HDL Ratio 2.6 (3.3-4.4) L Thyroid Stimulating Hormone (TSH) 13.509 uiU/mL (0.358-3.740) Microbiology Date/Time Source Procedure Growth Status 05/03/18 22:00 Rectum Received Height (Feet): 5 Height (Inches): 9.00 Weight (Pounds): 181 Medications Current Medications Medications (Trade) Dose Ordered Sig/Allyn Route PRN Reason Start Time Stop Time Status Last Admin Dose Admin Acetaminophen (Tylenol) 650 mg Q4H PRN ORAL fever 05/03/18 19:00 [id number] 18:59 Al Hydroxide/Mg Hydroxide (Mylanta II) 30 ml Q6H PRN ORAL dyspepsia 05/03/18 19:00 1218 18:59 Carvedilol (Coreg) 3.125 mg DAILY ORAL 05/04/18 09:00 06/03/18 08:59 05/04/18 08:45 Chlorhexidine Gluconate (Kalani-Hex 2%) 1 applic DAILY TOPIC 05/04/18 09:00 06/03/18 08:59 Dextrose (Dextrose 50%) STAT PRN IV Hypoglycemia 05/03/18 19:00 06/02/18 18:59 Digoxin (Lanoxin) 0.125 mg DAILY ORAL 05/04/18 09:00 06/03/18 08:59 05/04/18 08:46 Dobutamine HCl 250 ml @ 24.681 mls/ hr Q10H8M IV 05/04/18 09:30 06/02/18 22:17 Furosemide 100 mg/ Dextrose 100 ml @ 10 mls/hr Q10H IV 05/03/18 22:30 06/02/18 22:29 05/04/18 09:26 Gabapentin (Neurontin) 100 mg DAILY ORAL 05/04/18 09:00 06/03/18 08:59 05/04/18 08:45 Levothyroxine Sodium (Synthroid) 125 mcg BEFORE BREAKFAST ORAL 05/04/18 06:30 06/03/18 06:29 05/04/18 06:05 Lorazepam (Ativan 2mg/ml 1ml) 0.5 mg Q4H PRN IV For Anxiety 05/03/18 19:00 05/10/18 18:59 Morphine Sulfate (Morphine Sulfate) 1 mg EVERY 4 HOURS PRN IVP for severe pain 05/03/18 19:00 05/10/18 18:59 Ondansetron HCl (Zofran) 4 mg Q6H PRN IVP Nausea & Vomiting 05/03/18 19:00 06/02/18 18:59 Oxycodone HCl (Roxicodone) 15 mg Q6H PRN ORAL for moderate pain 05/03/18 19:00 05/10/18 18:59 05/03/18 22:31 Polyethylene Glycol (Miralax) 17 gm HSPRN PRN ORAL Constipation 05/03/18 19:00 06/02/18 18:59 Rivaroxaban (Xarelto) 15 mg QPM ORAL 05/04/18 16:30 06/03/18 16:29 Spironolactone (Aldactone) 25 mg DAILY ORAL 05/04/18 09:00 06/03/18 08:59 05/04/18 08:46 Zolpidem Tartrate (Ambien) 5 mg HSPRN PRN ORAL Insomnia 05/03/18 19:00 05/10/18 18:59 Assessment/Plan Problem List: (1) Cardiogenic shock ICD Codes: R57.0 - Cardiogenic shock SNOMED: 98890660 (2) Ascites ICD Codes: R18.8 - Ascites SNOMED: 919902728 (3) EF < 10% (4) Emphysema lung ICD Codes: J43.9 - Emphysema lung SNOMED: 66454433 (5) Hypothyroidism ICD Codes: E03.9 - Hypothyroidism SNOMED: 72485252 (6) Cirrhosis ICD Codes: K74.60 - Unspecified cirrhosis of liver SNOMED: 49168402 (7) Hepatitis C ICD Codes: B19.20 - Hepatitis C SNOMED: 70899535 Assessment/Plan lasix and dobutamine drip paracentesis check electrolytes K supplement watch bun/creatinine Andrzej Chavarria MD May 04, 2018 10:04
--- NOTE | 2018-05-04 10:44 | Diagnostic Imaging Report ---
Indication: Chest pain Technique: One view of the chest Comparison: 02/09/2018 Findings: The heart is enlarged. There is minimal atelectasis at the right lung base. The lungs and pleural spaces are otherwise clear. There is a left chest AICD with 3 leads, one probably orphaned. There is a right arm PICC versus port catheter again demonstrated Impression: Cardiomegaly No definite acute process Other findings as noted
--- NOTE | 2018-05-04 11:04 | GI Initial Consult Note ---
History of Present Illness General Date patient seen: May 04, 2018 Time patient seen: 10:59 Reason for Hospitalization: Chest Pain Referring physician: ROCÍO MOJICA Reason for Consultation: ABDOMINAL PAIN Present Illness HPI 62-year-old male presents ED for evaluation of chest pain and abdominal pain for the last 3 days. States pain is sharp, 8 out of 10, nonradiating. States his abdomen feels distended. History of cirrhosis. Patient states that he has a PICC line and was placed on dobutamine drip by Dr. Khan. Patient does not know why he was placed on a drip. States he was recently admitted to [facility]. Notes leg swelling. Denies shortness of breath. No other aggravating relieving factors. Denies any other associated symptoms. GI consulted for anemia/cirrhosis. Pt seen, c/o of chest and abdominal pain. NAD, no active s/sx of N/V/D. C/o of abdominal distention. Hx of Hep C s/p treatment now negative, ?Cirrhosis, HTN, CHF, Pacemaker. Pt states he drinks beer and uses marijuana occasional. Denies tobacco use. Last colonoscopy 2 years ago. Home Meds Reported Medications Gabapentin* (GABAPENTIN*) 100 Mg Capsule, 100 MG ORAL DAILY, CAP 05/03/18 Furosemide* (LASIX*) 20 Mg Tablet, 20 MG ORAL DAILY, TAB 05/03/18 Carvedilol* (CARVEDILOL*) 3.125 Mg Tablet, 3.125 MG ORAL DAILY, TAB 05/03/18 Multivitamins* (MULTIVITAMINS*) 1 Each Tablet, 1 TAB ORAL DAILY for supplement, TAB 05/03/18 Ondansetron* (ZOFRAN*) 4 Mg Tablet, 4 MG ORAL Q8HR PRN for Nausea & Vomiting, TAB 01/20/18 Rivaroxaban (XARELTO*) 10 Mg Tablet, 15 MG ORAL DAILY, #30 TAB 0 Refills 01/20/18 Spironolactone* (SPIRONOLACTONE*) 100 Mg Tablet, 25 MG ORAL DAILY, TAB 01/20/18 Lisinopril (LISINOPRIL*) 5 Mg Tablet, 5 MG ORAL DAILY, TAB 01/20/18 Levothyroxine Sodium* (LEVOTHYROXINE SODIUM*) 125 Mcg Tablet, 125 MCG ORAL BEFORE BREAKFAST, TAB Take in the morning on an empty stomach, at least 30 minutes before food. 01/20/18 OXYCODONE HCl* (ROXICODONE*) 15 Mg Tablet, 15 MG ORAL Q6H PRN for For Pain, TAB 09/29/17 Digoxin* (DIGOXIN*) 125 Mcg Tablet, 125 MCG ORAL DAILY, TAB 09/29/17 Discontinued Reported Medications Bisacodyl (DULCOLAX) 10 Mg Supp.rect, 10 MG RC DAILY PRN for Constipation, SUPP 01/20/18 Magnesium Hydroxide* (MILK OF MAGNESIA*) 400 Mg/5 Ml Oral.susp, 30 ML ORAL DAILY PRN for Constipation, ML 01/20/18 Diphenhydramine Hcl* (DIPHENHYDRAMINE HCL*) 25 Mg Capsule, 25 MG ORAL Q8H PRN for Itching, #30 CAP 0 Refills 01/20/18 Tizanidine Hcl* (ZANAFLEX*) 4 Mg Tablet, 4 MG ORAL THREE TIMES A DAY, #90 TAB 0 Refills 09/29/17 Sotalol Hcl (SOTALOL*) 80 Mg Tablet, 80 MG ORAL BID, #30 TAB 0 Refills 09/29/17 Ascorbic Acid* (VITAMIN C*) 500 Mg Tablet, 500 MG ORAL DAILY, #30 TAB 0 Refills 09/29/17 Ferrous Sulfate* (FERROUS SULFATE*) 325 Mg Tablet, 325 MG ORAL DAILY, #30 TAB 0 Refills 09/29/17 Pantoprazole* (PROTONIX*) 40 Mg Tablet.dr, 40 MG ORAL DAILY, TAB 09/15/17 Med list reviewed/reconciled: Yes Allergies: Coded Allergies: HYDROMORPHONE (Verified Allergy, Unknown, 12/28/10) Patient History History Provided By: Patient, Medical Record PMH Narrative Past Surgical History: none Pertinent Family History: none Social History: Denies: smoking, alcohol use, drug use Immunizations: UTD Reviewed Nursing Documentation: PMH: Agreed; PSxH: Agreed Nursing Documentation-PMH Past Medical History: No History, Except For Hx Cardiac Problems: Yes Hx Hypertension: Yes Hx Pacemaker: Yes - Left upper chest defibrillator Hx COPD: Yes Hx Cancer: No Hx Gastrointestinal Problems: Yes Hx Neurological Problems: No Hx Cerebrovascular Accident: No Hx Transient Ischemic Attacks: No Review of Systems All Other Systems: negative except mentioned in HPI Physical Exam Vital Signs Date Time Temp Pulse Resp B/P (MAP) Pulse Ox O2 Delivery O2 Flow Rate FiO2 05/03/18 07:30 97.3 85 18 127/96 (106) 100 05/03/18 16:52 Room Air Sp02 EP Interpretation: reviewed, normal Labs Laboratory Tests Test 05/03/18 17:35 05/03/18 18:25 05/03/18 18:35 05/04/18 03:40 White Blood Count 4.8 K/UL (4.8-10.8) 3.9 K/UL (4.8-10.8) L Red Blood Count 3.83 M/UL (4.70-6.10) L 3.67 M/UL (4.70-6.10) L Hemoglobin 10.5 G/DL (14.2-18.0) L 9.6 G/DL (14.2-18.0) L Hematocrit 32.7 % (42.0-52.0) L 30.6 % (42.0-52.0) L Mean Corpuscular Volume 85 FL (80-99) 83 FL (80-99) Mean Corpuscular Hemoglobin 27.3 PG (27.0-31.0) 26.1 PG (27.0-31.0) L Mean Corpuscular Hemoglobin Concent 31.9 G/DL (32.0-36.0) L 31.3 G/DL (32.0-36.0) L Red Cell Distribution Width 21.2 % (11.6-14.8) H 21.2 % (11.6-14.8) H Platelet Count 204 K/UL (150-450) 192 K/UL (150-450) Mean Platelet Volume 6.0 FL (6.5-10.1) L 5.9 FL (6.5-10.1) L Neutrophils (%) (Auto) 68.0 % (45.0-75.0) 63.5 % (45.0-75.0) Lymphocytes (%) (Auto) 17.8 % (20.0-45.0) L 18.9 % (20.0-45.0) L Monocytes (%) (Auto) 10.5 % (1.0-10.0) H 14.9 % (1.0-10.0) H Eosinophils (%) (Auto) 0.5 % (0.0-3.0) 1.4 % (0.0-3.0) Basophils (%) (Auto) 3.3 % (0.0-2.0) H 1.2 % (0.0-2.0) Sodium Level 137 MMOL/L (136-145) 137 MMOL/L (136-145) Potassium Level 4.5 MMOL/L (3.5-5.1) 3.9 MMOL/L (3.5-5.1) Chloride Level 100 MMOL/L (98-107) 101 MMOL/L (98-107) Carbon Dioxide Level 24 MMOL/L (21-32) 27 MMOL/L (21-32) Anion Gap 13 mmol/L (5-15) 9 mmol/L (5-15) Blood Urea Nitrogen 24 mg/dL (7-18) H 23 mg/dL (7-18) H Creatinine 1.5 MG/DL (0.55-1.30) H 1.5 MG/DL (0.55-1.30) H Estimat Glomerular Filtration Rate 57.1 mL/min (>60) 57.1 mL/min (>60) Glucose Level 84 MG/DL (74-106) 102 MG/DL (74-106) Calcium Level 9.0 MG/DL (8.5-10.1) 8.8 MG/DL (8.5-10.1) Total Bilirubin 2.4 MG/DL (0.2-1.0) H 2.1 MG/DL (0.2-1.0) H Direct Bilirubin 1.4 MG/DL (0.0-0.3) H 1.2 MG/DL (0.0-0.3) H Aspartate Amino Transf (AST/SGOT) 30 U/L (15-37) 21 U/L (15-37) Alanine Aminotransferase (ALT/SGPT) 18 U/L (12-78) 12 U/L (12-78) Alkaline Phosphatase 130 U/L (46-116) H 116 U/L (46-116) Total Creatine Kinase 111 U/L (26-308) Creatine Kinase MB 1.5 NG/ML (0.0-3.6) Creatine Kinase MB Relative Index 1.3 Troponin I 0.032 ng/mL (0.000-0.056) Pro-B-Type Natriuretic Peptide 72943 pg/mL (0-125) H Total Protein 8.1 G/DL (6.4-8.2) 7.6 G/DL (6.4-8.2) Albumin 3.2 G/DL (3.4-5.0) L 2.9 G/DL (3.4-5.0) L Globulin 4.9 g/dL 4.7 g/dL Albumin/Globulin Ratio 0.7 (1.0-2.7) L 0.6 (1.0-2.7) L Prothrombin Time 17.8 SEC (9.30-11.50) H Prothromb Time International Ratio 1.7 (0.9-1.1) H Activated Partial Thromboplast Time 31 SEC (23-33) Urine Opiates Screen Negative (NEGATIVE) Urine Barbiturates Screen Negative (NEGATIVE) Phencyclidine (PCP) Screen Negative (NEGATIVE) Urine Amphetamines Screen Negative (NEGATIVE) Urine Benzodiazepines Screen Negative (NEGATIVE) Urine Cocaine Screen Negative (NEGATIVE) Urine Marijuana (THC) Screen Positive (NEGATIVE) H Triglycerides Level 43 MG/DL (30-150) Cholesterol Level 115 MG/DL (< 200) LDL Cholesterol 76 mg/dL (<100) HDL Cholesterol 45 MG/DL (40-60) Cholesterol/HDL Ratio 2.6 (3.3-4.4) L Thyroid Stimulating Hormone (TSH) 13.509 uiU/mL (0.358-3.740) Free Thyroxine 0.98 NG/DL (0.76-1.46) Free Triiodothyronine 1.1 pg/mL (2.3-4.2) L General Appearance: well appearing, no apparent distress, alert Head: normocephalic EENT: PERRL/EOMI, normal ENT inspection Neck: supple Respiratory: normal breath sounds, no respiratory distress Cardiovascular: normal rate Gastrointestinal: normal inspection, non tender, soft, normal bowel sounds, non -distended Rectal: deferred Genitourinary: deferred Musculoskeletal: normal inspection, back normal Neurologic: normal inspection, alert, oriented x3, responsive Psychiatric: normal inspection, judgement/insight normal, memory normal Skin: normal inspection, normal color, no rash, warm/dry, palpation normal, well hydrated Lymphatic: normal inspection, no adenopathy Current Medications Current Medications Medications (Trade) Dose Ordered Sig/Allyn Route PRN Reason Start Time Stop Time Status Last Admin Dose Admin Acetaminophen (Tylenol) 650 mg Q4H PRN ORAL fever 05/03/18 19:00 06/02/18 18:59 Al Hydroxide/Mg Hydroxide (Mylanta II) 30 ml Q6H PRN ORAL dyspepsia 05/03/18 19:00 06/02/18 18:59 Carvedilol (Coreg) 3.125 mg DAILY ORAL 05/04/18 09:00 06/03/18 08:59 05/04/18 08:45 Chlorhexidine Gluconate (Kalani-Hex 2%) 1 applic DAILY@2000 TOPIC 05/04/18 20:00 06/03/18 19:59 Dextrose (Dextrose 50%) STAT PRN IV Hypoglycemia 05/03/18 19:00 06/02/18 18:59 Digoxin (Lanoxin) 0.125 mg DAILY ORAL 05/04/18 09:00 06/03/18 08:59 05/04/18 08:46 Dobutamine HCl 250 ml @ 24.681 mls/ hr Q10H8M IV 05/04/18 09:30 06/02/18 22:17 05/04/18 09:16 Furosemide 100 mg/ Dextrose 100 ml @ 10 mls/hr Q10H IV 05/03/18 22:30 06/02/18 22:29 05/04/18 09:26 Gabapentin (Neurontin) 100 mg DAILY ORAL 05/04/18 09:00 06/03/18 08:59 05/04/18 08:45 Levothyroxine Sodium (Synthroid) 125 mcg BEFORE BREAKFAST ORAL 05/04/18 06:30 06/03/18 06:29 05/04/18 06:05 Lorazepam (Ativan 2mg/ml 1ml) 0.5 mg Q4H PRN IV For Anxiety 05/03/18 19:00 05/10/18 18:59 Morphine Sulfate (Morphine Sulfate) 1 mg EVERY 4 HOURS PRN IVP for severe pain 05/03/18 19:00 05/10/18 18:59 Ondansetron HCl (Zofran) 4 mg Q6H PRN IVP Nausea & Vomiting 05/03/18 19:00 06/02/18 18:59 Oxycodone HCl (Roxicodone) 15 mg Q6H PRN ORAL for moderate pain 05/03/18 19:00 05/10/18 18:59 05/03/18 22:31 Polyethylene Glycol (Miralax) 17 gm HSPRN PRN ORAL Constipation 05/03/18 19:00 06/02/18 18:59 Rivaroxaban (Xarelto) 15 mg QPM ORAL 05/04/18 16:30 06/03/18 16:29 Spironolactone (Aldactone) 25 mg DAILY ORAL 05/04/18 09:00 06/03/18 08:59 05/04/18 08:46 Zolpidem Tartrate (Ambien) 5 mg HSPRN PRN ORAL Insomnia 05/03/18 19:00 05/10/18 18:59 GI: Plan Problems: (1) EF < 10% (2) Hepatitis C (3) Cirrhosis (4) Abdominal pain (5) Right-sided heart failure (6) Ascites Plan hx of Hep C in 2014 s/p tx >> hep panel redrawn in 2016 was negative s/p colonoscopy with one polyp 06/26/16 paracentesis ordered, unable to be performed today due elevated INR >> Xarelto held, vit K x1 ordered. - r/o SBP diuresis low sodium diet bowel regime zofran prn ppi pain mgmt fu labs repeat colonoscopy in [address] Ryan. Thank you for this patient referral, we will follow. The patient was seen and examined at bedside and all new and available data was reviewed in the patients chart. I agree with the above findings, impression and plan. (Patient seen earlier today. Signature stamp does not reflect patient encounter time.). - MD Marge Sommer,[facility] May 04, 2018 11:04
[2018-05-04] MEDS: oxyCODONE 15mg IR tab ORAL PRN ×2 (11:34→17:44)
[2018-05-04 12:00] VITALS: BP 114/77
[2018-05-04] MEDS ORDERED: Phytonadione 1 MG in D5W 55 ML IVPB SCH (13:00)
[2018-05-04] MEDS: Morphine Sulfate 2mg/ml Inj IVP PRN ×2 (13:15→21:38)
--- NOTE | 2018-05-04 14:01 | Cardiac Electrophysiology PN ---
Subjective Subjective [id number] Objective Last 24 Hour Vital Signs Date Time Temp Pulse Resp B/P (MAP) Pulse Ox O2 Delivery O2 Flow Rate FiO2 05/04/18 12:00 Room Air 05/04/18 12:00 97.2 71 18 114/77 (89) 99 05/04/18 09:16 116/72 05/04/18 09:16 116/72 05/04/18 08:46 79 05/04/18 08:45 79 116/72 05/04/18 08:00 97.0 79 20 116/72 (87) 99 05/04/18 08:00 Room Air 05/04/18 07:32 95 05/04/18 04:00 83 05/04/18 04:00 97.3 99 16 137/74 (95) 100 05/04/18 04:00 Room Air 05/04/18 00:00 Room Air 05/04/18 00:00 96 05/04/18 00:00 97.3 93 16 146/93 (110) 100 05/03/18 22:59 115/75 05/03/18 20:00 80 05/03/18 20:00 Room Air 05/03/18 19:52 Room Air 05/03/18 19:50 Room Air 05/03/18 19:39 98.0 84 17 135/93 100 Room Air 05/03/18 19:07 98.0 84 17 135/93 100 Room Air 05/03/18 18:12 98.0 05/03/18 17:10 97.8 85 16 124/86 100 Room Air 05/03/18 16:52 98.1 87 24 119/75 99 Room Air 05/03/18 16:52 87 24 Room Air Intake and Output 05/03/18 05/04/18 18:59 06:59 Intake Total 754.167 ml Output Total 0 ml 2000 ml Balance 0 ml -1245.833 ml Intake Oral 480 ml IV Total 274.167 ml Output Urine Total 0 ml 2000 ml # Bowel Movements 2 Laboratory Tests Test 05/03/18 17:35 05/03/18 18:25 05/03/18 18:35 05/04/18 03:40 White Blood Count 4.8 K/UL (4.8-10.8) 3.9 K/UL (4.8-10.8) L Red Blood Count 3.83 M/UL (4.70-6.10) L 3.67 M/UL (4.70-6.10) L Hemoglobin 10.5 G/DL (14.2-18.0) L 9.6 G/DL (14.2-18.0) L Hematocrit 32.7 % (42.0-52.0) L 30.6 % (42.0-52.0) L Mean Corpuscular Volume 85 FL (80-99) 83 FL (80-99) Mean Corpuscular Hemoglobin 27.3 PG (27.0-31.0) 26.1 PG (27.0-31.0) L Mean Corpuscular Hemoglobin Concent 31.9 G/DL (32.0-36.0) L 31.3 G/DL (32.0-36.0) L Red Cell Distribution Width 21.2 % (11.6-14.8) H 21.2 % (11.6-14.8) H Platelet Count 204 K/UL (150-450) 192 K/UL (150-450) Mean Platelet Volume 6.0 FL (6.5-10.1) L 5.9 FL (6.5-10.1) L Neutrophils (%) (Auto) 68.0 % (45.0-75.0) 63.5 % (45.0-75.0) Lymphocytes (%) (Auto) 17.8 % (20.0-45.0) L 18.9 % (20.0-45.0) L Monocytes (%) (Auto) 10.5 % (1.0-10.0) H 14.9 % (1.0-10.0) H Eosinophils (%) (Auto) 0.5 % (0.0-3.0) 1.4 % (0.0-3.0) Basophils (%) (Auto) 3.3 % (0.0-2.0) H 1.2 % (0.0-2.0) Sodium Level 137 MMOL/L (136-145) 137 MMOL/L (136-145) Potassium Level 4.5 MMOL/L (3.5-5.1) 3.9 MMOL/L (3.5-5.1) Chloride Level 100 MMOL/L (98-107) 101 MMOL/L (98-107) Carbon Dioxide Level 24 MMOL/L (21-32) 27 MMOL/L (21-32) Anion Gap 13 mmol/L (5-15) 9 mmol/L (5-15) Blood Urea Nitrogen 24 mg/dL (7-18) H 23 mg/dL (7-18) H Creatinine 1.5 MG/DL (0.55-1.30) H 1.5 MG/DL (0.55-1.30) H Estimat Glomerular Filtration Rate 57.1 mL/min (>60) 57.1 mL/min (>60) Glucose Level 84 MG/DL (74-106) 102 MG/DL (74-106) Calcium Level 9.0 MG/DL (8.5-10.1) 8.8 MG/DL (8.5-10.1) Total Bilirubin 2.4 MG/DL (0.2-1.0) H 2.1 MG/DL (0.2-1.0) H Direct Bilirubin 1.4 MG/DL (0.0-0.3) H 1.2 MG/DL (0.0-0.3) H Aspartate Amino Transf (AST/SGOT) 30 U/L (15-37) 21 U/L (15-37) Alanine Aminotransferase (ALT/SGPT) 18 U/L (12-78) 12 U/L (12-78) Alkaline Phosphatase 130 U/L (46-116) H 116 U/L (46-116) Total Creatine Kinase 111 U/L (26-308) Creatine Kinase MB 1.5 NG/ML (0.0-3.6) Creatine Kinase MB Relative Index 1.3 Troponin I 0.032 ng/mL (0.000-0.056) Pro-B-Type Natriuretic Peptide 60643 pg/mL (0-125) H Total Protein 8.1 G/DL (6.4-8.2) 7.6 G/DL (6.4-8.2) Albumin 3.2 G/DL (3.4-5.0) L 2.9 G/DL (3.4-5.0) L Globulin 4.9 g/dL 4.7 g/dL Albumin/Globulin Ratio 0.7 (1.0-2.7) L 0.6 (1.0-2.7) L Prothrombin Time 17.8 SEC (9.30-11.50) H Prothromb Time International Ratio 1.7 (0.9-1.1) H Activated Partial Thromboplast Time 31 SEC (23-33) Urine Opiates Screen Negative (NEGATIVE) Urine Barbiturates Screen Negative (NEGATIVE) Phencyclidine (PCP) Screen Negative (NEGATIVE) Urine Amphetamines Screen Negative (NEGATIVE) Urine Benzodiazepines Screen Negative (NEGATIVE) Urine Cocaine Screen Negative (NEGATIVE) Urine Marijuana (THC) Screen Positive (NEGATIVE) H Magnesium Level 1.8 MG/DL (1.8-2.4) Triglycerides Level 43 MG/DL (30-150) Cholesterol Level 115 MG/DL (< 200) LDL Cholesterol 76 mg/dL (<100) HDL Cholesterol 45 MG/DL (40-60) Cholesterol/HDL Ratio 2.6 (3.3-4.4) L Thyroid Stimulating Hormone (TSH) 13.509 uiU/mL (0.358-3.740) Free Thyroxine 0.98 NG/DL (0.76-1.46) Free Triiodothyronine 1.1 pg/mL (2.3-4.2) L Microbiology Date/Time Source Procedure Growth Status 05/03/18 22:00 Rectum Received Rc Zhang MD May 04, 2018 14:01
[2018-05-04 16:00] VITALS: BP 118/77
[2018-05-04] MEDS ORDERED: Xarelto 15mg tab ORAL SCH (16:30)
[2018-05-04] MEDS: Magnesium Oxide 400mg tab ORAL SCH (17:43)
[2018-05-04] MEDS ORDERED: Magnesium Oxide 400mg tab ORAL SCH (18:00)
[2018-05-04 20:00] VITALS: BP 117/78
[2018-05-04] MEDS: Dyna-Hex 2% Top Sol 2oz TOPIC SCH (20:00)
--- NOTE | 2018-05-04 20:15 | History and Physical Report ---
DATE OF ADMISSION: 05/03/2018 TIME SEEN: 12 noon. CONSULTANTS: 1. Rc Zhang M.D. 2. Andrzej Chavarria M.D. 3. Beto Ryan M.D. CHIEF COMPLAINT: Chest pain, abdominal distention, ascites, CHF, cirrhosis, edema. BRIEF HISTORY: This is a 62-year-old female, who lives at home, over the past three days, has noticed abdominal distention as well as leg swelling. He had some substernal chest pain, sharp, intermittent, came to [facility], diagnosed with the above, admitted to [facility] for further care. Currently, slight short of breath in bed, eating, slight general pain. No complaint. REVIEW OF SYSTEMS: Slight chest pain. Slight short of breath. No nausea, vomiting, or diarrhea. PAST MEDICAL HISTORY: Congestive heart failure, ascites, cirrhosis, edema, hepatitis C. PAST SURGICAL HISTORY: Multiple paracentesis. MEDICATIONS: Include magnesium, potassium, Xarelto, dobutamine, carvedilol, digoxin, gabapentin, spironolactone, levothyroxine, furosemide, oxycodone, Tylenol, morphine, Zofran. ALLERGIES: Dilaudid. SOCIAL HISTORY: No smoking. No alcohol. No intravenous drug abuse. FAMILY HISTORY: Noncontributory. PHYSICAL EXAMINATION: GENERAL: Calm in bed, oriented x3, slight distress secondary to pain. VITAL SIGNS: Temperature is 97 degrees, pulse 79, respiratory rate 20, blood pressure 116/72. CARDIOVASCULAR: No murmur. LUNGS: Distant and poor exchange. ABDOMEN: Bowel sounds positive. Positive distention. Soft. No guarding. No rigidity. No rebound. EXTREMITIES: No cyanosis, clubbing, 1+ edema. NEUROLOGIC: The patient moves all extremities, slightly weak. LABORATORY AND DIAGNOSTIC DATA: White count 3.9, hemoglobin and hematocrit 9.6/30, platelets 192. BUN and creatinine 23 and 1.5 otherwise BMP is normal. INR is 1.7 and PTT is 31. Urine toxicology is positive for marijuana. ASSESSMENT: 1. Chest pain. 2. Abdominal distention. 3. Congestive heart failure. 4. Ascites. 5. Anemia. 6. Cirrhosis. 7. Renal failure. 8. Edema. 9. Hepatitis C. PLAN: 1. O2 and pulmonary treatment as needed. 2. OT/PT, dietary evaluation. 3. CBC and BMP in the morning. 4. Paracentesis as needed. 5. Cardiology followup. 6. We will add nephrology evaluation. 7. Continue to follow this patient medically. Shahid Cherry D.O. DR: Melissa JOB#: [id number] CC:
--- NOTE | 2018-05-04 20:45 | Consultation ---
DATE OF CONSULTATION: 05/04/2018 CARDIOLOGY CONSULTATION CONSULTING PHYSICIAN: Rc Zhang M.D. REFERRING PHYSICIAN: Shahid Cherry D.O. REASON FOR CONSULTATION: Management of congestive heart failure and the patient's defibrillator. HISTORY OF PRESENT ILLNESS: The patient is a 62-year-old gentleman with history of severe cardiomyopathy with ejection fraction of 10%, paroxysmal atrial fibrillation with two prior ablations at [facility], history of [employer] defibrillator implantation and upgraded to biventricular ICD by me in September 2017, who was recently at [facility] with heart failure exacerbation. The patient was evaluated by the heart transplant team and found is not a candidate for heart transplant or left ventricular assistive device in view of the patient's cirrhosis. The patient was sent home on home dobutamine at 5 mcg/minute. The patient presented to the hospital with increasing shortness of breath and abdominal distention. The patient per my order was started on Lasix drip and was admitted to the [facility]. REVIEW OF SYSTEMS: Performed and was negative other than what was mentioned in history of present illness. PAST MEDICAL HISTORY: As mentioned above. FAMILY HISTORY: Noncontributory. SOCIAL HISTORY: He lives at home. Does not smoke or drink alcohol. PHYSICAL EXAMINATION: VITAL SIGNS: Blood pressure of 114/77, pulse is 71, respirations , and temperature 97.2 degrees. HEAD AND NECK: Shows positive jugular venous distention. LUNGS: Decreased breath sounds with basilar rales. CARDIOVASCULAR: Regular S1 and S2 with no gallop or murmur. Defibrillator in left subclavian. ABDOMEN: Ascites. EXTREMITIES: A 1+ pitting edema. LABORATORY AND DIAGNOSTIC STUDIES: Laboratories show white count of 3.9, hematocrit 9.6, hematocrit of 30, and platelet count was 192. Sodium 137, potassium 3.9, BUN of 23, creatinine 1.5, [place] [address]. ASSESSMENT AND PLAN: 1. Exacerbation of congestive heart failure. The patient with ejection fraction of only 10%. The patient is on dobutamine drip at 5 mcg/minute. We will start the patient on Lasix drip and after blood pressure allows resume Aldactone and lisinopril. 2. Status post [employer] defibrillator implantation with upgrade to Bi-V ICD. Interrogation recently showed normal LV function. 3. Hepatitis and ascites. The patient was evaluated by GI, paracentesis. 4. Paroxysmal atrial fibrillation, currently persistent, status post ablation. Xarelto has been held in preparation of paracentesis. 5. Hypothyroidism on Synthroid. Thank you very much, Dr. Cherry, for allowing me to participate in the care of this patient. Please do not hesitate to contact me for any questions regarding my evaluation. Sincerely, Rc Zhang M.D. DR: Akilah JOB#: [id number] CC:
--- NOTE | 2018-05-04 22:00 | Consultation ---
DATE OF CONSULTATION: 05/04/2018 CONSULTING PHYSICIAN: Sherwin Hawkins M.D. REFERRING PHYSICIAN: Shahid Cherry D.O. REASON FOR CONSULTATION: 1. Acute kidney injury. 2. CKD stage 3B. HISTORY OF PRESENT ILLNESS: The patient is a 62-year-old gentleman with known severe cardiomyopathy, ejection fraction of less than 10% accompany with end-stage liver disease, cirrhosis, and ascites. The patient had been on oxycodone for chronic pain and presented to the emergency room with abdominal pain and distention along with shortness of breath. As such, he was admitted for decompensated heart failure with an elevated creatinine of 1.5 and massive ascites. ALLERGIES: Hydromorphone. PAST MEDICAL HISTORY: 1. Severe cardiomyopathy. 2. End-stage liver disease. 3. Cirrhosis. 4. Ascites. 5. CKD stage 3B. 6. Hypothyroidism. PAST SURGICAL HISTORY: Paracenteses. FAMILY HISTORY: Positive for hypertension. REVIEW OF SYSTEMS: NEUROLOGIC: The patient denies headache, change in vision, syncope, or presyncopal episodes. CARDIOVASCULAR: No current chest pain, palpitations, or angina. PULMONARY: Mild shortness of breath. Nonproductive cough. GASTROINTESTINAL/GENITOURINARY: The patient is complaining abdominal distention and pain. No nausea, vomiting, or diarrhea. ENDOCRINOLOGY: No night sweats, fevers, or chills. MUSCULOSKELETAL: The patient is feeling tired and fatigued. LABORATORY DATA: Labs dated May 04, 2018, white cell count 3.9, hemoglobin 9.6, and platelet count 192. Sodium 137, potassium 3.9, bicarbonate 27, BUN 23, and creatinine 1.5. Total bilirubin 2.1. PHYSICAL EXAMINATION: VITAL SIGNS: Blood pressure 114/77, respiratory rate 18, pulse 71, temperature 97.2, and 99% on room air. GENERAL: The patient is awake and alert, not otherwise in distress. HEENT: Extraocular muscles are intact. No lymphadenopathy noted. Oropharyngeal mucosa, clear and dry. CARDIOVASCULAR: S1 and S2. Regular rate. No rubs or gallops. PULMONARY: Clear to auscultation bilaterally. No rales, rhonchi, or wheezes. ABDOMEN: Distended. Positive fluid wave shift tense. EXTREMITIES: Trace edema bilaterally. ASSESSMENT AND PLAN: 1. Acute kidney injury on chronic kidney disease stage 3B secondary to cardiorenal due to extremely depressed cardiac output. At this time, the patient has been initiated on dobutamine and Lasix. We will monitor renal function carefully. No further renal investigations required. 2. CHF. Decompensated with massive ascites. Continue Lasix and dobutamine drip. 3. End-stage liver disease with ascites. Paracentesis planned. 4. Hypertension. Blood pressure currently stable. Continue regimen. Let me take this opportunity to thank Dr. Cherry. Sherwin Hawkins MD DR: NORM JOB#: [id number] CC:
[2018-05-05] VITALS: BP 120/80
[2018-05-05 04:00] VITALS: BP 124/74
[2018-05-05 04:59] LABS: BASOPHILS % (AUTO) 1.2 % (0.0-2.0); EOSINOPHILS % (AUTO) 2.8 % (0.0-3.0); HEMATOCRIT 31.7 % (42.0-52.0); LYMPHOCYTES % (AUTO) 15.3 % (20.0-45.0); MEAN CORPUSCULAR VOLUME 84 FL (80-99); MONOCYTES % (AUTO) 13.7 % (1.0-10.0); PLATELET COUNT 200 K/UL (150-450); RED BLOOD COUNT 3.78 M/UL (4.70-6.10); RED CELL DISTRIBUTION WIDTH 21.6 % (11.6-14.8); WHITE BLOOD COUNT 3.7 K/UL (4.8-10.8)
[2018-05-05 05:37] LABS: INR 1.4 (0.9-1.1)
[2018-05-05 05:50] LABS: ALANINE AMINOTRANSFERASE 18 U/L (12-78); ALBUMIN 2.7 G/DL (3.4-5.0); ALBUMIN/GLOBULIN RATIO 0.6 (1.0-2.7); ALKALINE PHOSPHATASE 116 U/L (46-116); ANION GAP 8 mmol/L (5-15); ASPARTATE AMINO TRANSFERASE 19 U/L (15-37); BILIRUBIN,TOTAL 1.6 MG/DL (0.2-1.0); BLOOD UREA NITROGEN 19 mg/dL (7-18); CALCIUM 8.7 MG/DL (8.5-10.1); CARBON DIOXIDE 30 MMOL/L (21-32); CHLORIDE 99 MMOL/L (98-107); CREATININE 1.6 MG/DL (0.55-1.30); PHOSPHORUS 3.8 MG/DL (2.5-4.9); SODIUM 137 MMOL/L (136-145)
[2018-05-05 06:14] LABS: BILIRUBIN,DIRECT 0.9 MG/DL (0.0-0.3)
[2018-05-05] MEDS: Levothyroxine 125mcg tab ORAL SCH (06:37)
--- NOTE | 2018-05-05 07:46 | Nephrology Progress Note ---
Assessment/Plan Assessment/Plan A/P 1) ARIS on CKD 3B- Cr at 1.6 - cardiorenal. Monitor on dobutamine and lasix gtt - UOP 5600 ml 2. Severe CMP- on dobutamine and lasix gtt 3. ESLD- ascites - paracentesis 4. SOB- resolved Subjective Date patient seen: May 05, 2018 Time patient seen: 07:42 ROS Limited/Unobtainable: No Gastrointestinal/Abdominal: Reports: abdomen distended Allergies: Coded Allergies: HYDROMORPHONE (Verified Allergy, Unknown, 12/28/10) All Systems: reviewed and negative except above Subjective Patient feeling better. Breathing improved Objective Last 24 Hour Vital Signs Date Time Temp Pulse Resp B/P (MAP) Pulse Ox O2 Delivery O2 Flow Rate FiO2 05/05/18 04:00 77 05/05/18 04:00 Room Air 05/05/18 04:00 97.6 80 20 124/74 (91) 100 05/05/18 00:00 70 05/05/18 00:00 Room Air 05/05/18 00:00 97.5 80 20 120/80 (93) 100 05/04/18 20:11 120/80 05/04/18 20:00 Room Air 05/04/18 20:00 97.5 75 20 117/78 (91) 100 05/04/18 20:00 70 05/04/18 19:38 120/80 05/04/18 16:00 96.8 75 20 118/77 (91) 99 05/04/18 16:00 Room Air 05/04/18 15:16 70 05/04/18 12:00 Room Air 05/04/18 12:00 97.2 71 18 114/77 (89) 99 05/04/18 11:41 74 05/04/18 09:16 116/72 05/04/18 09:16 116/72 05/04/18 08:46 79 05/04/18 08:45 79 116/72 05/04/18 08:00 97.0 79 20 116/72 (87) 99 05/04/18 08:00 Room Air Intake and Output 05/04/18 05/05/18 18:59 06:59 Intake Total 337.348 ml 621.491 ml Output Total 2600 ml 3000 ml Balance -2262.652 ml -2378.509 ml Intake Oral 240 ml IV Total 337.348 ml 381.491 ml Output Urine Total 2600 ml 3000 ml Laboratory Tests 05/05/18 03:40: White Blood Count 3.7L, Red Blood Count 3.78L, Hemoglobin 10.0L, Hematocrit 31.7L, Mean Corpuscular Volume 84, Mean Corpuscular Hemoglobin 26.4L, Mean Corpuscular Hemoglobin Concent 31.5L, Red Cell Distribution Width 21.6H, Platelet Count 200, Mean Platelet Volume 6.3L, Neutrophils (%) (Auto) 67.0, Lymphocytes (%) (Auto) 15.3L, Monocytes (%) (Auto) 13.7H, Eosinophils (%) (Auto ) 2.8, Basophils (%) (Auto) 1.2, Prothrombin Time 14.5H, Prothromb Time International Ratio 1.4H, Activated Partial Thromboplast Time 28, Sodium Level 137, Potassium Level 4.0, Chloride Level 99, Carbon Dioxide Level 30, Anion Gap 8, Blood Urea Nitrogen 19H, Creatinine 1.6H, Estimat Glomerular Filtration Rate 53.0, Glucose Level 108H, Calcium Level 8.7, Phosphorus Level 3.8, Magnesium Level 1.6L, Total Bilirubin 1.6H, Direct Bilirubin 0.9H, Aspartate Amino Transf (AST/SGOT) 19, Alanine Aminotransferase (ALT/SGPT) 18, Alkaline Phosphatase 116 , Total Protein 7.4, Albumin 2.7L, Globulin 4.7, Albumin/Globulin Ratio 0.6L Height (Feet): 5 Height (Inches): 9.00 Weight (Pounds): 181 General Appearance: no apparent distress, alert EENT: normal ENT inspection Neck: normal alignment, supple Cardiovascular: normal rate, regular rhythm Respiratory/Chest: rhonchi - bilaterally Abdomen: distended, guarding Edema: 1+ Arm (L), 1+ Arm (R), 1+ Leg (L), 1+ Leg (R), 1+ Pedal (L), 1+ Pedal ( R), 1+ Generalized Sherwin Hawkins MD May 05, 2018 07:46
[2018-05-05] MEDS: Morphine Sulfate 2mg/ml Inj IVP PRN ×4 (07:55→21:44)
[2018-05-05] MEDS: DOBUTamine 250mg/250ml Premix 250 ML IV SCH ×2 (07:57→17:30)
[2018-05-05 08:00] VITALS: BP 124/74
--- NOTE | 2018-05-05 08:48 | Cardiology Report ---
APPROVED REPORT EKG Measurement Heart [id number] Atrial fibrillation with premature ventricular or aberrantly conducted complexes Right axis deviation Pulmonary disease pattern Septal infarct, age undetermined Abnormal ECG
[2018-05-05] MEDS: Lisinopril 10mg tab ORAL SCH ×2 (09:00→12:40)
[2018-05-05] MEDS: Magnesium Oxide 400mg tab ORAL SCH ×2 (09:00→17:30)
[2018-05-05] MEDS: Digoxin 0.125mg tab ORAL SCH ×2 (09:00→12:45)
[2018-05-05] MEDS: Spironolactone 50mg tab ORAL SCH ×2 (09:00→12:42)
--- NOTE | 2018-05-05 09:52 | Pulmonology Progress Note ---
Assessment/Plan Problems: (1) Cardiogenic shock (2) Ascites (3) EF < 10% (4) Emphysema lung (5) Hypothyroidism (6) Cirrhosis (7) Hepatitis C Assessment/Plan INR is 1.4 today, paracentesis is still pending diuresing very well on dobutamine drip and lasix IV check electrolytes check BNP in am continue Synthyroid Subjective ROS Limited/Unobtainable: No Interval Events: diuresing well, on dobutamine drip Allergies: Coded Allergies: HYDROMORPHONE (Verified Allergy, Unknown, 12/28/10) Objective Last 24 Hour Vital Signs Date Time Temp Pulse Resp B/P (MAP) Pulse Ox O2 Delivery O2 Flow Rate FiO2 05/05/18 07:57 132/80 05/05/18 07:47 75 05/05/18 04:00 77 05/05/18 04:00 Room Air 05/05/18 04:00 97.6 80 20 124/74 (91) 100 05/05/18 00:00 70 05/05/18 00:00 Room Air 05/05/18 00:00 97.5 80 20 120/80 (93) 100 05/04/18 20:11 120/80 05/04/18 20:00 Room Air 05/04/18 20:00 97.5 75 20 117/78 (91) 100 05/04/18 20:00 70 05/04/18 19:38 120/80 05/04/18 16:00 96.8 75 20 118/77 (91) 99 05/04/18 16:00 Room Air 05/04/18 15:16 70 05/04/18 12:00 Room Air 05/04/18 12:00 97.2 71 18 114/77 (89) 99 05/04/18 11:41 74 Intake and Output 05/04/18 05/05/18 18:59 06:59 Intake Total 337.348 ml 621.491 ml Output Total 2600 ml 3000 ml Balance -2262.652 ml -2378.509 ml Intake Oral 240 ml IV Total 337.348 ml 381.491 ml Output Urine Total 2600 ml 3000 ml HEENT: normocephalic Respiratory/Chest: chest wall non-tender, crackles/rales Cardiovascular: normal peripheral pulses, normal rate Abdomen: normal bowel sounds, soft, non tender Extremities: no cyanosis Skin: no rash Microbiology Date/Time Source Procedure Growth Status 05/04/18 22:00 Rectum - Preliminary Resulted 05/03/18 22:00 Rectum Received Laboratory Tests 05/05/18 03:40: White Blood Count 3.7L, Red Blood Count 3.78L, Hemoglobin 10.0L, Hematocrit 31.7L, Mean Corpuscular Volume 84, Mean Corpuscular Hemoglobin 26.4L, Mean Corpuscular Hemoglobin Concent 31.5L, Red Cell Distribution Width 21.6H, Platelet Count 200, Mean Platelet Volume 6.3L, Neutrophils (%) (Auto) 67.0, Lymphocytes (%) (Auto) 15.3L, Monocytes (%) (Auto) 13.7H, Eosinophils (%) (Auto ) 2.8, Basophils (%) (Auto) 1.2, Prothrombin Time 14.5H, Prothromb Time International Ratio 1.4H, Activated Partial Thromboplast Time 28, Sodium Level 137, Potassium Level 4.0, Chloride Level 99, Carbon Dioxide Level 30, Anion Gap 8, Blood Urea Nitrogen 19H, Creatinine 1.6H, Estimat Glomerular Filtration Rate 53.0, Glucose Level 108H, Calcium Level 8.7, Phosphorus Level 3.8, Magnesium Level 1.6L, Total Bilirubin 1.6H, Direct Bilirubin 0.9H, Aspartate Amino Transf (AST/SGOT) 19, Alanine Aminotransferase (ALT/SGPT) 18, Alkaline Phosphatase 116 , Total Protein 7.4, Albumin 2.7L, Globulin 4.7, Albumin/Globulin Ratio 0.6L Current Medications Medications (Trade) Dose Ordered Sig/Allyn Route PRN Reason Start Time Stop Time Status Last Admin Dose Admin Acetaminophen (Tylenol) 650 mg Q4H PRN ORAL fever 05/03/18 19:00 06/02/18 18:59 Al Hydroxide/Mg Hydroxide (Mylanta II) 30 ml Q6H PRN ORAL dyspepsia 05/03/18 19:00 06/02/18 18:59 Carvedilol (Coreg) 3.125 mg DAILY ORAL 05/04/18 09:00 06/03/18 08:59 05/04/18 08:45 Chlorhexidine Gluconate (Kalani-Hex 2%) 1 applic DAILY@1999 TOPIC 05/04/18 20:00 06/03/18 19:59 11/19/18 20:00 Dextrose (Dextrose 50%) STAT PRN IV Hypoglycemia 05/03/18 19:00 06/02/18 18:59 Digoxin (Lanoxin) 0.125 mg DAILY ORAL 05/04/18 09:00 06/03/18 08:59 05/04/18 08:46 Dobutamine HCl 250 ml @ 24.681 mls/ hr Q10H8M IV 05/04/18 21:00 06/03/18 20:59 05/05/18 07:57 Furosemide 100 mg/ Dextrose 100 ml @ 10 mls/hr Q10H IV 05/03/18 22:30 06/02/18 22:29 05/05/18 04:46 Gabapentin (Neurontin) 100 mg DAILY ORAL 05/04/18 09:00 06/03/18 08:59 05/04/18 08:45 Levothyroxine Sodium (Synthroid) 125 mcg BEFORE BREAKFAST ORAL 05/04/18 06:30 06/03/18 06:29 05/05/18 06:37 Lisinopril (Zestril) 10 mg DAILY ORAL 05/05/18 09:00 06/04/18 08:59 Lorazepam (Ativan 2mg/ml 1ml) 0.5 mg Q4H PRN IV For Anxiety 05/03/18 19:00 05/10/18 18:59 Magnesium Oxide (Mag-Ox 400mg) 400 mg BID ORAL 05/04/18 18:00 06/03/18 17:59 05/04/18 17:43 Morphine Sulfate (Morphine Sulfate) 1 mg EVERY 4 HOURS PRN IVP for severe pain 05/03/18 19:00 05/10/18 18:59 05/05/18 07:55 Ondansetron HCl (Zofran) 4 mg Q6H PRN IVP Nausea & Vomiting 05/03/18 19:00 06/02/18 18:59 Oxycodone HCl (Roxicodone) 15 mg Q6H PRN ORAL for moderate pain 05/03/18 19:00 05/10/18 18:59 05/04/18 17:44 Polyethylene Glycol (Miralax) 17 gm HSPRN PRN ORAL Constipation 05/03/18 19:00 06/02/18 18:59 Potassium Chloride (K-Dur) 40 meq TWICE A DAY ORAL 05/04/18 18:00 06/03/18 17:59 05/04/18 17:43 Spironolactone (Aldactone) 25 mg DAILY ORAL 05/04/18 09:00 06/03/18 08:59 05/04/18 08:46 Zolpidem Tartrate (Ambien) 5 mg HSPRN PRN ORAL Insomnia 05/03/18 19:00 05/10/18 18:59 Andrzej Chavarria MD May 05, 2018 09:52
--- NOTE | 2018-05-05 10:41 | Cardiac Electrophysiology PN ---
Assessment/Plan Assessment/Plan 1. Exacerbation of congestive heart failure with ejection fraction of only 10%. On dobutamine drip at 5 mcg/minute and Lasix drip After blood pressure allows resume Aldactone and lisinopril. 2. Status post [place] [place] defibrillator implantation with upgrade to Bi-V ICD. Interrogation recently showed normal LV function. 3. Hepatitis and ascites. The patient was evaluated by GI, paracentesis pending today. 4. Paroxysmal atrial fibrillation, currently persistent, status post ablation. Xarelto has been held in preparation of paracentesis. 5. Hypothyroidism on Synthroid. EDMAR RN Subjective Subjective Getting ready for paracentesis. On Dobutamine and Lasix drip Objective Last 24 Hour Vital Signs Date Time Temp Pulse Resp B/P (MAP) Pulse Ox O2 Delivery O2 Flow Rate FiO2 05/05/18 07:57 132/80 05/05/18 07:47 75 05/05/18 04:00 77 05/05/18 04:00 Room Air 05/05/18 04:00 97.6 80 20 124/74 (91) 100 05/05/18 00:00 70 05/05/18 00:00 Room Air 05/05/18 00:00 97.5 80 20 120/80 (93) 100 05/04/18 20:11 120/80 05/04/18 20:00 Room Air 05/04/18 20:00 97.5 75 20 117/78 (91) 100 05/04/18 20:00 70 05/04/18 19:38 120/80 05/04/18 16:00 96.8 75 20 118/77 (91) 99 05/04/18 16:00 Room Air 05/04/18 15:16 70 05/04/18 12:00 Room Air 05/04/18 12:00 97.2 71 18 114/77 (89) 99 05/04/18 11:41 74 Intake and Output 05/04/18 05/05/18 18:59 06:59 Intake Total 337.348 ml 621.491 ml Output Total 2600 ml 3000 ml Balance -2262.652 ml -2378.509 ml Intake Oral 240 ml IV Total 337.348 ml 381.491 ml Output Urine Total 2600 ml 3000 ml Laboratory Tests Test 05/05/18 03:40 White Blood Count 3.7 K/UL (4.8-10.8) L Red Blood Count 3.78 M/UL (4.70-6.10) L Hemoglobin 10.0 G/DL (14.2-18.0) L Hematocrit 31.7 % (42.0-52.0) L Mean Corpuscular Volume 84 FL (80-99) Mean Corpuscular Hemoglobin 26.4 PG (27.0-31.0) L Mean Corpuscular Hemoglobin Concent 31.5 G/DL (32.0-36.0) L Red Cell Distribution Width 21.6 % (11.6-14.8) H Platelet Count 200 K/UL (150-450) Mean Platelet Volume 6.3 FL (6.5-10.1) L Neutrophils (%) (Auto) 67.0 % (45.0-75.0) Lymphocytes (%) (Auto) 15.3 % (20.0-45.0) L Monocytes (%) (Auto) 13.7 % (1.0-10.0) H Eosinophils (%) (Auto) 2.8 % (0.0-3.0) Basophils (%) (Auto) 1.2 % (0.0-2.0) Prothrombin Time 14.5 SEC (9.30-11.50) H Prothromb Time International Ratio 1.4 (0.9-1.1) H Activated Partial Thromboplast Time 28 SEC (23-33) Sodium Level 137 MMOL/L (136-145) Potassium Level 4.0 MMOL/L (3.5-5.1) Chloride Level 99 MMOL/L (98-107) Carbon Dioxide Level 30 MMOL/L (21-32) Anion Gap 8 mmol/L (5-15) Blood Urea Nitrogen 19 mg/dL (7-18) H Creatinine 1.6 MG/DL (0.55-1.30) H Estimat Glomerular Filtration Rate 53.0 mL/min (>60) Glucose Level 108 MG/DL (74-106) H Calcium Level 8.7 MG/DL (8.5-10.1) Phosphorus Level 3.8 MG/DL (2.5-4.9) Magnesium Level 1.6 MG/DL (1.8-2.4) L Total Bilirubin 1.6 MG/DL (0.2-1.0) H Direct Bilirubin 0.9 MG/DL (0.0-0.3) H Aspartate Amino Transf (AST/SGOT) 19 U/L (15-37) Alanine Aminotransferase (ALT/SGPT) 18 U/L (12-78) Alkaline Phosphatase 116 U/L (46-116) Total Protein 7.4 G/DL (6.4-8.2) Albumin 2.7 G/DL (3.4-5.0) L Globulin 4.7 g/dL Albumin/Globulin Ratio 0.6 (1.0-2.7) L Microbiology Date/Time Source Procedure Growth Status 05/04/18 22:00 Rectum - Preliminary Resulted 05/03/18 22:00 Rectum Received Objective HEAD AND NECK: Positive jugular venous distention. LUNGS: Decreased breath sounds with basilar rales. CARDIOVASCULAR: Regular S1 and S2 with no gallop or murmur. Defibrillator in left subclavian. ABDOMEN: Ascites. EXTREMITIES: A 1+ pitting edema. Rc Zhang MD May 05, 2018 10:41
--- NOTE | 2018-05-05 10:45 | Pre-Procedure Note/Attestation ---
Pre-Procedure Note/Attestation Complete Prior to Procedure Planned Procedure: not applicable Procedure Narrative: Us guided paracentesis Indications for Procedure Pre-Operative Diagnosis: ascites Attestation Consent obtained by the primary team, this was confirmed with the patient prior to the procedure. All questions answered. I attest that I re-evaluated the patient just prior to the surgery and that there has been no change in the patient's H&P, except as documented below: Olman Gentile M.D. May 05, 2018 10:45
[2018-05-05 12:00] VITALS: BP 100/62
--- NOTE | 2018-05-05 12:07 | General Progress Note ---
Assessment/Plan Problem List: (1) Anemia ICD Codes: D64.9 - Anemia, unspecified SNOMED: 749938910 (2) Renal failure ICD Codes: N19 - Unspecified kidney failure SNOMED: 36721062 (3) CHF (congestive heart failure) ICD Codes: I50.9 - Heart failure, unspecified SNOMED: 41782161 (4) Edema ICD Codes: R60.9 - Edema, unspecified SNOMED: 342319471, 097554676 (5) Ascites ICD Codes: R18.8 - Ascites SNOMED: 915657367 (6) Abdominal pain ICD Codes: R10.9 - Abdominal pain SNOMED: 19109461 (7) Cirrhosis ICD Codes: K74.60 - Unspecified cirrhosis of liver SNOMED: 61884362 (8) Hepatitis C ICD Codes: B19.20 - Hepatitis C SNOMED: 54346566 Status: stable, progressing Assessment/Plan ot pt diet diurese, cardio gi f/u cbc bmp am dc plan w hh Subjective Constitutional: Reports: weakness Allergies: Coded Allergies: HYDROMORPHONE (Verified Allergy, Unknown, 12/28/10) All Systems: reviewed and negative except above Subjective calm s/p pericentesis Objective Last 24 Hour Vital Signs Date Time Temp Pulse Resp B/P (MAP) Pulse Ox O2 Delivery O2 Flow Rate FiO2 05/05/18 08:00 Room Air 05/05/18 07:57 132/80 05/05/18 07:47 75 05/05/18 04:00 77 05/05/18 04:00 Room Air 05/05/18 04:00 97.6 80 20 124/74 (91) 100 05/05/18 00:00 70 05/05/18 00:00 Room Air 05/05/18 00:00 97.5 80 20 120/80 (93) 100 05/04/18 20:11 120/80 05/04/18 20:00 Room Air 05/04/18 20:00 97.5 75 20 117/78 (91) 100 05/04/18 20:00 70 05/04/18 19:38 120/80 05/04/18 16:00 96.8 75 20 118/77 (91) 99 05/04/18 16:00 Room Air 05/04/18 15:16 70 Intake and Output 05/04/18 05/05/18 18:59 06:59 Intake Total 337.348 ml 621.491 ml Output Total 2600 ml 3000 ml Balance -2262.652 ml -2378.509 ml Intake Oral 240 ml IV Total 337.348 ml 381.491 ml Output Urine Total 2600 ml 3000 ml Laboratory Tests 05/05/18 03:40: White Blood Count 3.7L, Red Blood Count 3.78L, Hemoglobin 10.0L, Hematocrit 31.7L, Mean Corpuscular Volume 84, Mean Corpuscular Hemoglobin 26.4L, Mean Corpuscular Hemoglobin Concent 31.5L, Red Cell Distribution Width 21.6H, Platelet Count 200, Mean Platelet Volume 6.3L, Neutrophils (%) (Auto) 67.0, Lymphocytes (%) (Auto) 15.3L, Monocytes (%) (Auto) 13.7H, Eosinophils (%) (Auto ) 2.8, Basophils (%) (Auto) 1.2, Prothrombin Time 14.5H, Prothromb Time International Ratio 1.4H, Activated Partial Thromboplast Time 28, Sodium Level 137, Potassium Level 4.0, Chloride Level 99, Carbon Dioxide Level 30, Anion Gap 8, Blood Urea Nitrogen 19H, Creatinine 1.6H, Estimat Glomerular Filtration Rate 53.0, Glucose Level 108H, Calcium Level 8.7, Phosphorus Level 3.8, Magnesium Level 1.6L, Total Bilirubin 1.6H, Direct Bilirubin 0.9H, Aspartate Amino Transf (AST/SGOT) 19, Alanine Aminotransferase (ALT/SGPT) 18, Alkaline Phosphatase 116 , Total Protein 7.4, Albumin 2.7L, Globulin 4.7, Albumin/Globulin Ratio 0.6L 05/05/18 10:26: Body Fluid Glucose [Pending], Body Fluid Total Protein [Pending] Height (Feet): 5 Height (Inches): 9.00 Weight (Pounds): 183 General Appearance: alert EENT: normal ENT inspection Neck: normal alignment Cardiovascular: normal peripheral pulses, normal rate, regular rhythm Respiratory/Chest: chest wall non-tender, lungs clear, normal breath sounds Abdomen: normal bowel sounds, non tender, soft, distended Extremities: normal inspection Edema: 1+ Arm (L), 1+ Arm (R), 1+ Leg (L), 1+ Leg (R), 1+ Pedal (L), 1+ Pedal ( R), 1+ Generalized Neurologic: responsive, motor weakness Skin: normal pigmentation, warm/dry Shahid Cherry DO May 05, 2018 12:07
--- NOTE | 2018-05-05 12:34 | Diagnostic Imaging Report ---
Indications: Ascites Technique: Ultrasound used to localize optimal puncture site. Mild ascites noted in the right lower quadrant. Sterile prepping and draping right lower quadrant. Local anesthesia with 1% lidocaine. Under real-time ultrasound guidance, puncture peritoneal space using 5 [place] paracentesis needle. Stylet removed. Catheter placed to vacuum bottle suction. Total 1.5 L of thin rena fluid aspirated. Patient tolerated procedure well, without immediate complication. Findings: Followup sonography demonstrates complete resolution of peritoneal fluid. Impression: Successful ultrasound-guided paracentesis, yielding 1.5 L of ascites. Specimen sent for requested diagnostic studies.
--- NOTE | 2018-05-05 14:27 | GI Progress Note ---
Assessment/Plan Problems: (1) Hepatitis C ICD Codes: B19.20 - Hepatitis C SNOMED: 54992259 (2) EF < 10% (3) Abdominal pain ICD Codes: R10.9 - Abdominal pain SNOMED: 21616039 (4) Right-sided heart failure ICD Codes: I50.9 - Right-sided heart failure SNOMED: 066947060 (5) Ascites ICD Codes: R18.8 - Ascites SNOMED: 003600911 (6) CHF (congestive heart failure) ICD Codes: I50.9 - Heart failure, unspecified SNOMED: 19153957 Status: stable Status Narrative Discussed with Dr. Ryan. Assessment/Plan hx of Hep C in 2014 s/p tx >> hep panel redrawn in 2016 was negative s/p colonoscopy with one polyp 06/26/16 s/p paracentesis >> 1.5L yield, fu r/o SBP restart Xarelto per primary diuresis low sodium diet bowel regime zofran prn ppi pain mgmt fu labs repeat colonoscopy in 2021 The patient was seen and examined at bedside and all new and available data was reviewed in the patients chart. I agree with the above findings, impression and plan. (Patient seen earlier today. Signature stamp does not reflect patient encounter time.). - Beto Ryan MD Subjective Gastrointestinal/Abdominal: Reports: no symptoms Objective Last 24 Hour Vital Signs Date Time Temp Pulse Resp B/P (MAP) Pulse Ox O2 Delivery O2 Flow Rate FiO2 05/05/18 12:45 71 05/05/18 12:40 100/62 05/05/18 12:40 71 100/62 05/05/18 12:00 Room Air 05/05/18 12:00 97.3 71 20 100/62 (75) 96 05/05/18 11:43 72 05/05/18 08:00 97.6 80 20 124/74 (91) 100 05/05/18 08:00 Room Air 05/05/18 07:57 132/80 05/05/18 07:47 75 05/05/18 04:00 77 05/05/18 04:00 Room Air 05/05/18 04:00 97.6 80 20 124/74 (91) 100 05/05/18 00:00 70 05/05/18 00:00 Room Air 05/05/18 00:00 97.5 80 20 120/80 (93) 100 05/04/18 20:11 120/80 05/04/18 20:00 Room Air 05/04/18 20:00 97.5 75 20 117/78 (91) 100 05/04/18 20:00 70 05/04/18 19:38 120/80 05/04/18 16:00 96.8 75 20 118/77 (91) 99 05/04/18 16:00 Room Air 05/04/18 15:16 70 Intake and Output 05/04/18 05/05/18 19:00 07:00 Intake Total 362.029 ml 621.491 ml Output Total 2600 ml 3000 ml Balance -2237.971 ml -2378.509 ml Intake Oral 240 ml IV Total 362.029 ml 381.491 ml Output Urine Total 2600 ml 3000 ml Laboratory Tests Test 05/05/18 03:40 05/05/18 10:26 White Blood Count 3.7 K/UL (4.8-10.8) L Red Blood Count 3.78 M/UL (4.70-6.10) L Hemoglobin 10.0 G/DL (14.2-18.0) L Hematocrit 31.7 % (42.0-52.0) L Mean Corpuscular Volume 84 FL (80-99) Mean Corpuscular Hemoglobin 26.4 PG (27.0-31.0) L Mean Corpuscular Hemoglobin Concent 31.5 G/DL (32.0-36.0) L Red Cell Distribution Width 21.6 % (11.6-14.8) H Platelet Count 200 K/UL (150-450) Mean Platelet Volume 6.3 FL (6.5-10.1) L Neutrophils (%) (Auto) 67.0 % (45.0-75.0) Lymphocytes (%) (Auto) 15.3 % (20.0-45.0) L Monocytes (%) (Auto) 13.7 % (1.0-10.0) H Eosinophils (%) (Auto) 2.8 % (0.0-3.0) Basophils (%) (Auto) 1.2 % (0.0-2.0) Prothrombin Time 14.5 SEC (9.30-11.50) H Prothromb Time International Ratio 1.4 (0.9-1.1) H Activated Partial Thromboplast Time 28 SEC (23-33) Sodium Level 137 MMOL/L (136-145) Potassium Level 4.0 MMOL/L (3.5-5.1) Chloride Level 99 MMOL/L (98-107) Carbon Dioxide Level 30 MMOL/L (21-32) Anion Gap 8 mmol/L (5-15) Blood Urea Nitrogen 19 mg/dL (7-18) H Creatinine 1.6 MG/DL (0.55-1.30) H Estimat Glomerular Filtration Rate 53.0 mL/min (>60) Glucose Level 108 MG/DL (74-106) H Calcium Level 8.7 MG/DL (8.5-10.1) Phosphorus Level 3.8 MG/DL (2.5-4.9) Magnesium Level 1.6 MG/DL (1.8-2.4) L Total Bilirubin 1.6 MG/DL (0.2-1.0) H Direct Bilirubin 0.9 MG/DL (0.0-0.3) H Aspartate Amino Transf (AST/SGOT) 19 U/L (15-37) Alanine Aminotransferase (ALT/SGPT) 18 U/L (12-78) Alkaline Phosphatase 116 U/L (46-116) Total Protein 7.4 G/DL (6.4-8.2) Albumin 2.7 G/DL (3.4-5.0) L Globulin 4.7 g/dL Albumin/Globulin Ratio 0.6 (1.0-2.7) L Body Fluid Source Paracentesis Body Fluid Volume 24 mL Body Fluid Appearance Slightly hazy (Clear) Body Fluid RBC 218 /CUMM Body Fluid Total Nucleated Cells 9 /CUMM Body Fluid Polynuclear WBCs (%) 8 % Body Fluid Mononuclear WBCs (%) 90 % Body Fluid Mesothelial Cells (%) 2 % Body Fluid Glucose Pending Body Fluid Total Protein Pending Body Fluid Albumin Pending Microbiology Date/Time Source Procedure Growth Status 05/04/18 22:00 Rectum - Preliminary Resulted Height (Feet): 5 Height (Inches): 9.00 Weight (Pounds): 183 General Appearance: WD/WN, no apparent distress, alert Cardiovascular: normal rate Respiratory/Chest: normal breath sounds, no respiratory distress Abdominal Exam: normal bowel sounds, non tender, soft Extremities: normal range of motion, non-tender Kiarra Bird NP May 05, 2018 14:27
[2018-05-05 16:00] VITALS: BP 105/63
[2018-05-05 20:00] VITALS: BP 113/60
[2018-05-05] MEDS: Dyna-Hex 2% Top Sol 2oz TOPIC SCH (20:05)
[2018-05-06] VITALS: BP 108/72
[2018-05-06] MEDS: DOBUTamine 250mg/250ml Premix 250 ML IV SCH ×3 (00:10→13:53)
[2018-05-06] MEDS: Morphine Sulfate 2mg/ml Inj IVP PRN ×3 (02:31→13:52)
[2018-05-06 04:00] VITALS: BP 93/66
[2018-05-06 05:42] LABS: BASOPHILS % (AUTO) 1.1 % (0.0-2.0); EOSINOPHILS % (AUTO) 1.6 % (0.0-3.0); HEMATOCRIT 32.2 % (42.0-52.0); LYMPHOCYTES % (AUTO) 18.4 % (20.0-45.0); MEAN CORPUSCULAR VOLUME 85 FL (80-99); MONOCYTES % (AUTO) 13.8 % (1.0-10.0); PLATELET COUNT 215 K/UL (150-450); RED BLOOD COUNT 3.81 M/UL (4.70-6.10); RED CELL DISTRIBUTION WIDTH 21.6 % (11.6-14.8)
[2018-05-06] MEDS: Levothyroxine 125mcg tab ORAL SCH (06:02)
[2018-05-06 06:11] LABS: ALANINE AMINOTRANSFERASE 14 U/L (12-78); ALBUMIN 2.8 G/DL (3.4-5.0); ALBUMIN/GLOBULIN RATIO 0.6 (1.0-2.7); ALKALINE PHOSPHATASE 116 U/L (46-116); ANION GAP 5 mmol/L (5-15); ASPARTATE AMINO TRANSFERASE 20 U/L (15-37); BILIRUBIN,TOTAL 1.3 MG/DL (0.2-1.0); BLOOD UREA NITROGEN 21 mg/dL (7-18); CALCIUM 8.8 MG/DL (8.5-10.1); CARBON DIOXIDE 34 MMOL/L (21-32); CHLORIDE 97 MMOL/L (98-107); CREATININE 1.7 MG/DL (0.55-1.30); POTASSIUM 4.6 MMOL/L (3.5-5.1); SODIUM 136 MMOL/L (136-145)
[2018-05-06 06:16] LABS: BILIRUBIN,DIRECT 0.7 MG/DL (0.0-0.3)
[2018-05-06 08:01] VITALS: BP 115/71
--- NOTE | 2018-05-06 08:34 | Nephrology Progress Note ---
Assessment/Plan Assessment/Plan A/P 1) ARIS on CKD 3B- Cr up to 1.7 - cardiorenal. Monitor on dobutamine. DC lasix gtt and place on po bumex - UOP 7400 ml 2. Severe CMP- on dobutamine gtt. DC lasix gtt and start po bumex 3. ESLD- ascites - s/p paracentesis 4. SOB- resolved Subjective Date patient seen: May 06, 2018 Time patient seen: 08:28 ROS Limited/Unobtainable: No Allergies: Coded Allergies: HYDROMORPHONE (Verified Allergy, Unknown, 12/28/10) All Systems: reviewed and negative except above Subjective Patient feeling better and had paracentesis and good UOP Objective Last 24 Hour Vital Signs Date Time Temp Pulse Resp B/P (MAP) Pulse Ox O2 Delivery O2 Flow Rate FiO2 05/06/18 08:01 97.9 72 20 115/71 (86) 98 05/06/18 04:01 93/66 05/06/18 04:01 97.7 05/06/18 04:00 73 05/06/18 04:00 Room Air 05/06/18 04:00 97.5 70 20 93/66 (75) 99 05/06/18 00:00 72 05/06/18 00:00 Room Air 05/06/18 00:00 97.7 72 20 108/72 (84) 99 05/05/18 20:00 97.3 70 19 113/60 (77) 98 05/05/18 20:00 71 05/05/18 20:00 Room Air 05/05/18 17:30 100/66 05/05/18 16:00 Room Air 05/05/18 16:00 98.1 82 20 105/63 (77) 99 05/05/18 15:29 71 05/05/18 12:45 71 05/05/18 12:40 100/62 05/05/18 12:40 71 100/62 05/05/18 12:00 Room Air 05/05/18 12:00 97.3 71 20 100/62 (75) 96 05/05/18 11:43 72 Intake and Output 05/05/18 05/06/18 18:59 06:59 Intake Total 926.810 ml 971.4913 ml Output Total 3580 ml 3900 ml Balance -2653.190 ml -2928.5087 ml Intake Oral 570 ml 600 ml IV Total 356.810 ml 371.4913 ml Output Urine Total 2080 ml 3900 ml Other 1500 ml Laboratory Tests 05/05/18 10:26: Body Fluid Source Paracentesis, Body Fluid Volume 24, Body Fluid Appearance Slightly hazy, Body Fluid RBC 218, Body Fluid Total Nucleated Cells 9, Body Fluid Polynuclear WBCs (%) 8, Body Fluid Mononuclear WBCs (%) 90, Body Fluid Mesothelial Cells (%) 2, Body Fluid Glucose [Pending], Body Fluid Total Protein [Pending], Body Fluid Albumin [Pending] 05/06/18 03:10: White Blood Count 4.0L, Red Blood Count 3.81L, Hemoglobin 10.0L, Hematocrit 32.2L, Mean Corpuscular Volume 85, Mean Corpuscular Hemoglobin 26.2L, Mean Corpuscular Hemoglobin Concent 31.0L, Red Cell Distribution Width 21.6H, Platelet Count 215, Mean Platelet Volume 6.0L, Neutrophils (%) (Auto) 65.0, Lymphocytes (%) (Auto) 18.4L, Monocytes (%) (Auto) 13.8H, Eosinophils (%) (Auto ) 1.6, Basophils (%) (Auto) 1.1, Sodium Level 136, Potassium Level 4.6, Chloride Level 97L, Carbon Dioxide Level 34H, Anion Gap 5, Blood Urea Nitrogen 21H, Creatinine 1.7H, Estimat Glomerular Filtration Rate 49.4, Glucose Level 93 , Calcium Level 8.8, Total Bilirubin 1.3H, Direct Bilirubin 0.7H, Aspartate Amino Transf (AST/SGOT) 20, Alanine Aminotransferase (ALT/SGPT) 14, Alkaline Phosphatase 116, Pro-B-Type Natriuretic Peptide 6043H, Total Protein 7.8, Albumin 2.8L, Globulin 5.0, Albumin/Globulin Ratio 0.6L Height (Feet): 5 Height (Inches): 9.00 Weight (Pounds): 183 General Appearance: no apparent distress, alert EENT: normal ENT inspection Neck: normal alignment, supple Cardiovascular: normal rate, regular rhythm Respiratory/Chest: lungs clear, normal breath sounds Abdomen: non tender, soft, distended Edema: no edema noted Arm (L), no edema noted Arm (R), no edema noted Leg (L), no edema noted Leg (R), no edema noted Pedal (L), no edema noted Pedal (R), no edema noted Generalized Sherwin Hawkins MD May 06, 2018 08:34
[2018-05-06] MEDS: Magnesium Oxide 400mg tab ORAL SCH ×2 (08:40→17:30)
[2018-05-06] MEDS: Spironolactone 50mg tab ORAL SCH (08:40)
[2018-05-06] MEDS: Digoxin 0.125mg tab ORAL SCH (08:40)
[2018-05-06] MEDS: Lisinopril 10mg tab ORAL SCH (08:49)
[2018-05-06] MEDS ORDERED: Furosemide 40mg tab ORAL SCH (09:00)
--- NOTE | 2018-05-06 10:16 | Pulmonology Progress Note ---
Assessment/Plan Problems: (1) Cardiogenic shock (2) Ascites (3) EF < 10% (4) Emphysema lung (5) Hypothyroidism (6) Cirrhosis (7) Hepatitis C Assessment/Plan paracentesis is done, 1.5 liters drained so far 11 liters negative diuresing very well on dobutamine drip and lasix IV check electrolytes in am check BNP in am continue Synthyroid Subjective Constitutional: Reports: no symptoms HEENT: Repors: no symptoms Respiratory: Reports: no symptoms Allergies: Coded Allergies: HYDROMORPHONE (Verified Allergy, Unknown, 12/28/10) Objective Last 24 Hour Vital Signs Date Time Temp Pulse Resp B/P (MAP) Pulse Ox O2 Delivery O2 Flow Rate FiO2 05/06/18 09:11 97.9 05/06/18 08:49 115/71 05/06/18 08:40 72 05/06/18 08:40 72 115/71 05/06/18 08:01 97.9 72 20 115/71 (86) 98 05/06/18 04:01 93/66 05/06/18 04:00 73 05/06/18 04:00 Room Air 05/06/18 04:00 97.5 70 20 93/66 (75) 99 05/06/18 00:00 72 05/06/18 00:00 Room Air 05/06/18 00:00 97.7 72 20 108/72 (84) 99 05/05/18 20:00 97.3 70 19 113/60 (77) 98 05/05/18 20:00 71 05/05/18 20:00 Room Air 05/05/18 17:30 100/66 05/05/18 16:00 Room Air 05/05/18 16:00 98.1 82 20 105/63 (77) 99 05/05/18 15:29 71 05/05/18 12:45 71 05/05/18 12:40 100/62 05/05/18 12:40 71 100/62 05/05/18 12:00 Room Air 05/05/18 12:00 97.3 71 20 100/62 (75) 96 05/05/18 11:43 72 Intake and Output 05/05/18 05/06/18 18:59 06:59 Intake Total 926.810 ml 971.4913 ml Output Total 3580 ml 3900 ml Balance -2653.190 ml -2928.5087 ml Intake Oral 570 ml 600 ml IV Total 356.810 ml 371.4913 ml Output Urine Total 2080 ml 3900 ml Other 1500 ml General Appearance: WD/WN, cachetic HEENT: normocephalic Respiratory/Chest: chest wall non-tender, crackles/rales Cardiovascular: normal peripheral pulses, normal rate Abdomen: normal bowel sounds, soft, non tender Genitourinary: normal external genitalia Skin: no rash Microbiology Date/Time Source Procedure Growth Status 05/05/18 10:26 Ascities Fluid Gram Stain Pending Resulted 05/05/18 10:26 Ascities Fluid Body Fluid Culture - Preliminary NO GROWTH AFTER 24 HOURS Resulted 05/03/18 22:00 Nasal Nares MRSA Culture - Final NO METHICILLIN RESISTANT STAPH AUREUS... Complete 05/04/18 22:00 Rectum - Final NO CARBAPENEM-RESISTANT ENTEROBACTERI... Complete 05/03/18 22:00 Rectum VRE Culture - Final NO VANCOMYCIN RESISTANT ENTEROCOCCUS ... Complete Laboratory Tests 05/05/18 10:26: Body Fluid Source Paracentesis, Body Fluid Volume 24, Body Fluid Appearance Slightly hazy, Body Fluid RBC 218, Body Fluid Total Nucleated Cells 9, Body Fluid Polynuclear WBCs (%) 8, Body Fluid Mononuclear WBCs (%) 90, Body Fluid Mesothelial Cells (%) 2, Body Fluid Glucose [Pending], Body Fluid Total Protein [Pending], Body Fluid Albumin [Pending] 05/06/18 03:10: White Blood Count 4.0L, Red Blood Count 3.81L, Hemoglobin 10.0L, Hematocrit 32.2L, Mean Corpuscular Volume 85, Mean Corpuscular Hemoglobin 26.2L, Mean Corpuscular Hemoglobin Concent 31.0L, Red Cell Distribution Width 21.6H, Platelet Count 215, Mean Platelet Volume 6.0L, Neutrophils (%) (Auto) 65.0, Lymphocytes (%) (Auto) 18.4L, Monocytes (%) (Auto) 13.8H, Eosinophils (%) (Auto ) 1.6, Basophils (%) (Auto) 1.1, Sodium Level 136, Potassium Level 4.6, Chloride Level 97L, Carbon Dioxide Level 34H, Anion Gap 5, Blood Urea Nitrogen 21H, Creatinine 1.7H, Estimat Glomerular Filtration Rate 49.4, Glucose Level 93 , Calcium Level 8.8, Total Bilirubin 1.3H, Direct Bilirubin 0.7H, Aspartate Amino Transf (AST/SGOT) 20, Alanine Aminotransferase (ALT/SGPT) 14, Alkaline Phosphatase 116, Pro-B-Type Natriuretic Peptide 6043H, Total Protein 7.8, Albumin 2.8L, Globulin 5.0, Albumin/Globulin Ratio 0.6L Current Medications Medications (Trade) Dose Ordered Sig/Allyn Route PRN Reason Start Time Stop Time Status Last Admin Dose Admin Acetaminophen (Tylenol) 650 mg Q4H PRN ORAL fever 05/03/18 19:00 06/02/18 18:59 Al Hydroxide/Mg Hydroxide (Mylanta II) 30 ml Q6H PRN ORAL dyspepsia 05/03/18 19:00 06/02/18 18:59 Carvedilol (Coreg) 3.125 mg DAILY ORAL 05/04/18 09:00 06/03/18 08:59 05/06/18 08:40 Chlorhexidine Gluconate (Kalani-Hex 2%) 1 applic DAILY@2000 TOPIC 05/04/18 20:00 06/03/18 19:59 05/05/18 20:05 Dextrose (Dextrose 50%) 25 ml Q30M PRN IV Hypoglycemia 05/06/18 10:15 06/05/18 10:10 Dextrose (Dextrose 50%) 50 ml Q30M PRN IV hypoglycemia 05/06/18 10:15 06/05/18 10:14 Digoxin (Lanoxin) 0.125 mg DAILY ORAL 05/04/18 09:00 06/03/18 08:59 05/06/18 08:40 Dobutamine HCl 250 ml @ 24.681 mls/ hr Q10H8M IV 05/04/18 21:00 06/03/18 20:59 05/06/18 04:01 Furosemide (Lasix) 40 mg EVERY 12 HOURS ORAL 05/06/18 09:00 06/05/18 08:59 05/06/18 08:48 Gabapentin (Neurontin) 100 mg DAILY ORAL 05/04/18 09:00 06/03/18 08:59 05/06/18 08:40 Levothyroxine Sodium (Synthroid) 125 mcg BEFORE BREAKFAST ORAL 05/04/18 06:30 06/03/18 06:29 05/06/18 06:02 Lisinopril (Zestril) 10 mg DAILY ORAL 05/05/18 09:00 06/04/18 08:59 05/06/18 08:49 Lorazepam (Ativan 2mg/ml 1ml) 0.5 mg Q4H PRN IV For Anxiety 05/03/18 19:00 05/10/18 18:59 Magnesium Oxide (Mag-Ox 400mg) 400 mg BID ORAL 05/04/18 18:00 06/03/18 17:59 05/06/18 08:40 Morphine Sulfate (Morphine Sulfate) 1 mg EVERY 4 HOURS PRN IVP for severe pain 05/03/18 19:00 05/10/18 18:59 05/06/18 08:41 Ondansetron HCl (Zofran) 4 mg Q6H PRN IVP Nausea & Vomiting 05/03/18 19:00 06/02/18 18:59 05/05/18 17:41 Oxycodone HCl (Roxicodone) 15 mg Q6H PRN ORAL for moderate pain 05/03/18 19:00 05/10/18 18:59 05/04/18 17:44 Polyethylene Glycol (Miralax) 17 gm HSPRN PRN ORAL Constipation 05/03/18 19:00 06/02/18 18:59 Potassium Chloride (K-Dur) 40 meq TWICE A DAY ORAL 05/04/18 18:00 06/03/18 17:59 05/06/18 08:41 Spironolactone (Aldactone) 25 mg DAILY ORAL 05/04/18 09:00 06/03/18 08:59 05/06/18 08:40 Zolpidem Tartrate (Ambien) 5 mg HSPRN PRN ORAL Insomnia 05/03/18 19:00 05/10/18 18:59 Andrzej Chavarria MD May 06, 2018 10:16
--- NOTE | 2018-05-06 11:30 | Diagnostic Imaging Report ---
Indication: Cough Technique: One view of the chest Comparison: 05/03/2018 Findings: The heart is enlarged. There is some atelectasis in the left midlung. The lungs and pleural spaces are otherwise clear. There is a left chest AICD again demonstrated with probably an orphaned lead. Right arm PICC versus port catheter again demonstrated Impression: Cardiomegaly No acute process
--- NOTE | 2018-05-06 11:53 | GI Progress Note ---
Assessment/Plan Problems: (1) Hepatitis C ICD Codes: B19.20 - Hepatitis C SNOMED: 08212744 (2) EF < 10% (3) Abdominal pain ICD Codes: R10.9 - Abdominal pain SNOMED: 12978734 (4) Right-sided heart failure ICD Codes: I50.9 - Right-sided heart failure SNOMED: 104969421 (5) Ascites ICD Codes: R18.8 - Ascites SNOMED: 132110201 (6) CHF (congestive heart failure) ICD Codes: I50.9 - Heart failure, unspecified SNOMED: 34093206 Status: stable Status Narrative Discussed with Dr. Ryan. Assessment/Plan hx of Hep C in 2014 s/p tx >> hep panel redrawn in 2016 was negative s/p colonoscopy with one polyp 06/26/16 s/p paracentesis >> 1.5L yield >> SBP negative restart Xarelto per primary diuresis low sodium diet bowel regime zofran prn ppi pain mgmt fu labs repeat colonoscopy in 2021 The patient was seen and examined at bedside and all new and available data was reviewed in the patients chart. I agree with the above findings, impression and plan. (Patient seen earlier today. Signature stamp does not reflect patient encounter time.). - Beto Ryan MD Subjective Gastrointestinal/Abdominal: Reports: no symptoms Objective Last 24 Hour Vital Signs Date Time Temp Pulse Resp B/P (MAP) Pulse Ox O2 Delivery O2 Flow Rate FiO2 05/06/18 09:11 97.9 05/06/18 08:49 115/71 05/06/18 08:40 72 05/06/18 08:40 72 115/71 05/06/18 08:01 97.9 72 20 115/71 (86) 98 05/06/18 08:00 86 05/06/18 08:00 Room Air 05/06/18 04:01 93/66 05/06/18 04:00 73 05/06/18 04:00 Room Air 05/06/18 04:00 97.5 70 20 93/66 (75) 99 05/06/18 00:00 72 05/06/18 00:00 Room Air 05/06/18 00:00 97.7 72 20 108/72 (84) 99 05/05/18 20:00 97.3 70 19 113/60 (77) 98 05/05/18 20:00 71 05/05/18 20:00 Room Air 05/05/18 17:30 100/66 05/05/18 16:00 Room Air 05/05/18 16:00 98.1 82 20 105/63 (77) 99 05/05/18 15:29 71 05/05/18 12:45 71 05/05/18 12:40 100/62 05/05/18 12:40 71 100/62 05/05/18 12:00 Room Air 05/05/18 12:00 97.3 71 20 100/62 (75) 96 Intake and Output 05/05/18 05/06/18 18:59 06:59 Intake Total 926.810 ml 971.4913 ml Output Total 3580 ml 3900 ml Balance -2653.190 ml -2928.5087 ml Intake Oral 570 ml 600 ml IV Total 356.810 ml 371.4913 ml Output Urine Total 2080 ml 3900 ml Other 1500 ml Laboratory Tests Test 05/06/18 03:10 White Blood Count 4.0 K/UL (4.8-10.8) L Red Blood Count 3.81 M/UL (4.70-6.10) L Hemoglobin 10.0 G/DL (14.2-18.0) L Hematocrit 32.2 % (42.0-52.0) L Mean Corpuscular Volume 85 FL (80-99) Mean Corpuscular Hemoglobin 26.2 PG (27.0-31.0) L Mean Corpuscular Hemoglobin Concent 31.0 G/DL (32.0-36.0) L Red Cell Distribution Width 21.6 % (11.6-14.8) H Platelet Count 215 K/UL (150-450) Mean Platelet Volume 6.0 FL (6.5-10.1) L Neutrophils (%) (Auto) 65.0 % (45.0-75.0) Lymphocytes (%) (Auto) 18.4 % (20.0-45.0) L Monocytes (%) (Auto) 13.8 % (1.0-10.0) H Eosinophils (%) (Auto) 1.6 % (0.0-3.0) Basophils (%) (Auto) 1.1 % (0.0-2.0) Sodium Level 136 MMOL/L (136-145) Potassium Level 4.6 MMOL/L (3.5-5.1) Chloride Level 97 MMOL/L (98-107) L Carbon Dioxide Level 34 MMOL/L (21-32) H Anion Gap 5 mmol/L (5-15) Blood Urea Nitrogen 21 mg/dL (7-18) H Creatinine 1.7 MG/DL (0.55-1.30) H Estimat Glomerular Filtration Rate 49.4 mL/min (>60) Glucose Level 93 MG/DL (74-106) Calcium Level 8.8 MG/DL (8.5-10.1) Total Bilirubin 1.3 MG/DL (0.2-1.0) H Direct Bilirubin 0.7 MG/DL (0.0-0.3) H Aspartate Amino Transf (AST/SGOT) 20 U/L (15-37) Alanine Aminotransferase (ALT/SGPT) 14 U/L (12-78) Alkaline Phosphatase 116 U/L (46-116) Pro-B-Type Natriuretic Peptide 6043 pg/mL (0-125) H Total Protein 7.8 G/DL (6.4-8.2) Albumin 2.8 G/DL (3.4-5.0) L Globulin 5.0 g/dL Albumin/Globulin Ratio 0.6 (1.0-2.7) L Height (Feet): 5 Height (Inches): 9.00 Weight (Pounds): 153 General Appearance: WD/WN, no apparent distress, alert Cardiovascular: normal rate Respiratory/Chest: normal breath sounds, no respiratory distress Abdominal Exam: normal bowel sounds, non tender, soft Extremities: normal range of motion, non-tender Kiarra Bird NP May 06, 2018 11:53
[2018-05-06 11:59] VITALS: BP 120/69
--- NOTE | 2018-05-06 14:37 | Cardiac Electrophysiology PN ---
Assessment/Plan Assessment/Plan 1. Exacerbation of congestive heart failure with ejection fraction of only 10%. On dobutamine drip at 5 mcg/minute and change Lasix drip to 40 iv bid Resume Aldactone and lisinopril. 2. Status post [place] [place] defibrillator implantation with upgrade to Bi-V ICD. Interrogation recently showed normal LV function. 3. Hepatitis and ascites. The patient was evaluated by GI, s/p 1.5 liter paracentesis 4. Paroxysmal atrial fibrillation, currently persistent, status post ablation. Resume Xarelto 5. Hypothyroidism on Synthroid. EDMAR RN Subjective Subjective Had 1.5 liter paracentesis. On Dobutamine 5 mcg/kg/min Objective Last 24 Hour Vital Signs Date Time Temp Pulse Resp B/P (MAP) Pulse Ox O2 Delivery O2 Flow Rate FiO2 05/06/18 13:53 120/69 05/06/18 12:00 70 05/06/18 12:00 Room Air 05/06/18 11:59 97.7 71 19 120/69 (86) 98 05/06/18 09:11 97.9 05/06/18 08:49 115/71 05/06/18 08:40 72 05/06/18 08:40 72 115/71 05/06/18 08:01 97.9 72 20 115/71 (86) 98 05/06/18 08:00 86 05/06/18 08:00 Room Air 05/06/18 04:01 93/66 05/06/18 04:00 73 05/06/18 04:00 Room Air 05/06/18 04:00 97.5 70 20 93/66 (75) 99 05/06/18 00:00 72 05/06/18 00:00 Room Air 05/06/18 00:00 97.7 72 20 108/72 (84) 99 05/05/18 20:00 97.3 70 19 113/60 (77) 98 05/05/18 20:00 71 05/05/18 20:00 Room Air 05/05/18 17:30 100/66 05/05/18 16:00 Room Air 05/05/18 16:00 98.1 82 20 105/63 (77) 99 05/05/18 15:29 71 Intake and Output 05/05/18 05/06/18 18:59 06:59 Intake Total 926.810 ml 971.4913 ml Output Total 3580 ml 3900 ml Balance -2653.190 ml -2928.5087 ml Intake Oral 570 ml 600 ml IV Total 356.810 ml 371.4913 ml Output Urine Total 2080 ml 3900 ml Other 1500 ml Laboratory Tests Test 05/06/18 03:10 White Blood Count 4.0 K/UL (4.8-10.8) L Red Blood Count 3.81 M/UL (4.70-6.10) L Hemoglobin 10.0 G/DL (14.2-18.0) L Hematocrit 32.2 % (42.0-52.0) L Mean Corpuscular Volume 85 FL (80-99) Mean Corpuscular Hemoglobin 26.2 PG (27.0-31.0) L Mean Corpuscular Hemoglobin Concent 31.0 G/DL (32.0-36.0) L Red Cell Distribution Width 21.6 % (11.6-14.8) H Platelet Count 215 K/UL (150-450) Mean Platelet Volume 6.0 FL (6.5-10.1) L Neutrophils (%) (Auto) 65.0 % (45.0-75.0) Lymphocytes (%) (Auto) 18.4 % (20.0-45.0) L Monocytes (%) (Auto) 13.8 % (1.0-10.0) H Eosinophils (%) (Auto) 1.6 % (0.0-3.0) Basophils (%) (Auto) 1.1 % (0.0-2.0) Sodium Level 136 MMOL/L (136-145) Potassium Level 4.6 MMOL/L (3.5-5.1) Chloride Level 97 MMOL/L (98-107) L Carbon Dioxide Level 34 MMOL/L (21-32) H Anion Gap 5 mmol/L (5-15) Blood Urea Nitrogen 21 mg/dL (7-18) H Creatinine 1.7 MG/DL (0.55-1.30) H Estimat Glomerular Filtration Rate 49.4 mL/min (>60) Glucose Level 93 MG/DL (74-106) Calcium Level 8.8 MG/DL (8.5-10.1) Total Bilirubin 1.3 MG/DL (0.2-1.0) H Direct Bilirubin 0.7 MG/DL (0.0-0.3) H Aspartate Amino Transf (AST/SGOT) 20 U/L (15-37) Alanine Aminotransferase (ALT/SGPT) 14 U/L (12-78) Alkaline Phosphatase 116 U/L (46-116) Pro-B-Type Natriuretic Peptide 6043 pg/mL (0-125) H Total Protein 7.8 G/DL (6.4-8.2) Albumin 2.8 G/DL (3.4-5.0) L Globulin 5.0 g/dL Albumin/Globulin Ratio 0.6 (1.0-2.7) L Microbiology Date/Time Source Procedure Growth Status 05/05/18 10:26 Ascities Fluid Gram Stain - Final Resulted 05/05/18 10:26 Ascities Fluid Body Fluid Culture - Preliminary NO GROWTH AFTER 24 HOURS Resulted 05/03/18 22:00 Nasal Nares MRSA Culture - Final NO METHICILLIN RESISTANT STAPH AUREUS... Complete 05/04/18 22:00 Rectum - Final NO CARBAPENEM-RESISTANT ENTEROBACTERI... Complete 05/03/18 22:00 Rectum VRE Culture - Final NO VANCOMYCIN RESISTANT ENTEROCOCCUS ... Complete Objective HEAD AND NECK: Positive jugular venous distention. LUNGS: Decreased breath sounds with basilar rales. CARDIOVASCULAR: Regular S1 and S2 with no gallop or murmur. Defibrillator in left subclavian. ABDOMEN: Ascites. EXTREMITIES: 1+ pitting edema. Rc Zhang MD May 06, 2018 14:37
[2018-05-06 16:00] VITALS: BP 93/65
[2018-05-06] MEDS: Xarelto 15mg tab ORAL SCH (16:53)
[2018-05-06] MEDS: Dyna-Hex 2% Top Sol 2oz TOPIC SCH (19:59)
[2018-05-06 20:00] VITALS: BP 110/70
[2018-05-06] MEDS: oxyCODONE 15mg IR tab ORAL PRN (20:00)
[2018-05-06] MEDS: Zolpidem 5mg tab ORAL PRN (20:00)
[2018-05-07] VITALS: BP 94/62
[2018-05-07] MEDS: DOBUTamine 250mg/250ml Premix 250 ML IV SCH ×2 (02:00→13:00)
[2018-05-07 04:00] VITALS: BP 116/66
[2018-05-07 04:59] LABS: BASOPHILS % (AUTO) 2.5 % (0.0-2.0); HEMATOCRIT 34.6 % (42.0-52.0); HEMOGLOBIN 10.8 G/DL (14.2-18.0); LYMPHOCYTES % (AUTO) 19.1 % (20.0-45.0); MEAN CORPUSCULAR VOLUME 85 FL (80-99); MONOCYTES % (AUTO) 12.2 % (1.0-10.0); NEUTROPHILS % (AUTO) 64.1 % (45.0-75.0); PLATELET COUNT 229 K/UL (150-450); RED BLOOD COUNT 4.09 M/UL (4.70-6.10); RED CELL DISTRIBUTION WIDTH 21.3 % (11.6-14.8); WHITE BLOOD COUNT 3.9 K/UL (4.8-10.8)
[2018-05-07 05:38] LABS: ALANINE AMINOTRANSFERASE 11 U/L (12-78); ALBUMIN 2.7 G/DL (3.4-5.0); ALBUMIN/GLOBULIN RATIO 0.6 (1.0-2.7); ALKALINE PHOSPHATASE 107 U/L (46-116); ANION GAP 5 mmol/L (5-15); ASPARTATE AMINO TRANSFERASE 18 U/L (15-37); BILIRUBIN,TOTAL 1.1 MG/DL (0.2-1.0); BLOOD UREA NITROGEN 31 mg/dL (7-18); CALCIUM 9.1 MG/DL (8.5-10.1); CARBON DIOXIDE 33 MMOL/L (21-32); CHLORIDE 95 MMOL/L (98-107); CREATININE 1.7 MG/DL (0.55-1.30); SODIUM 133 MMOL/L (136-145)
[2018-05-07 05:54] LABS: BILIRUBIN,DIRECT 0.8 MG/DL (0.0-0.3)
[2018-05-07] MEDS: Levothyroxine 125mcg tab ORAL SCH (06:17)
--- NOTE | 2018-05-07 07:48 | Pulmonology Progress Note ---
Assessment/Plan Assessment/Plan ASSESSMENT severe cardiomyopathy with E -10% CHF exacerbation, systolic probably cardiogenic shock COPD/emphysema severe pulmonary HTN cirrhosis ascites status post paracentesis -1.5 L hepatitis C, s/p Rx s/p AICD atrial fibrillation hypothyroidism ARIS on CKD st 3 B ( per nephro) -probably cardiorenal PLAN OF CARE telemetry ECHO last done in January 2018, reviewed , EF <10% Dobutamine gtt off Lasix gtt due to worsening renal parameters, now on IV Lasix bid monitor volumes and cardiorenal parameters, pro BNP trending down O2 titrate to keep O2 sat above 92% HHN prn fup with CXR anti- failure regimen with Digoxin, BB , MARINA, Aldactone cardio follows close monitoring of hemodynamic status recent interrogation of AICD - normal fx on Xarelto for PAF, seem to be persistent recently s/p paracentesis 1.5 L ascitic fluid cx -, ruled out for SBP GI follows s/p Rx for hepatitis C in 2014, hepatitis panel in 2016 -negative s/p colonoscopy with one polyp in 06/26/2016 nephro follows close monitoring of renal parameters, lytes, correct as needed likely cardiorenal bowel regimen antiemetics prn GI prophylaxis pain management prn continue levothyroxine, check thyroid panel in 4 weeks case discussed and evaluated by supervising physician Subjective Allergies: Coded Allergies: HYDROMORPHONE (Verified Allergy, Unknown, 12/28/10) Subjective still on Dobutamine gtt reports feeling betted denies CP, SOB BP better Objective Last 24 Hour Vital Signs Date Time Temp Pulse Resp B/P (MAP) Pulse Ox O2 Delivery O2 Flow Rate FiO2 05/07/18 04:00 Room Air 05/07/18 04:00 97.9 68 18 116/66 (83) 100 05/07/18 03:35 70 05/07/18 02:00 118/60 05/07/18 00:00 Room Air 05/07/18 00:00 97.4 73 22 94/62 (73) 100 05/06/18 23:54 70 05/06/18 20:00 97.2 70 20 110/70 (83) 99 05/06/18 20:00 Room Air 05/06/18 19:17 83 05/06/18 16:00 70 05/06/18 16:00 Room Air 11/21/18 16:00 97.5 70 19 93/65 (74) 99 05/06/18 14:22 97.7 05/06/18 13:53 120/69 05/06/18 12:00 70 05/06/18 12:00 Room Air 05/06/18 11:59 97.7 71 19 120/69 (86) 98 05/06/18 08:49 115/71 05/06/18 08:40 72 05/06/18 08:40 72 115/71 05/06/18 08:01 97.9 72 20 115/71 (86) 98 05/06/18 08:00 86 05/06/18 08:00 Room Air Intake and Output 05/06/18 05/07/18 19:00 07:00 Intake Total 1262.129 ml 571.491 ml Output Total 2150 ml 1250 ml Balance -887.871 ml -678.509 ml Intake Oral 1040 ml 300 ml IV Total 222.129 ml 271.491 ml Output Urine Total 1550 ml 1250 ml Stool Total 600 ml # Bowel Movements 4 General Appearance: no acute distress, other - A/A/O x 4 AA male HEENT: normocephalic, atraumatic, anicteric, mucous membranes moist Respiratory/Chest: lungs clear, no accessory muscle use, other - left chest AICD, BS decreased at bases Cardiovascular: normal rate - V pacing A fib with occasional PVC, other - RUE PICC intact Abdomen: normal bowel sounds, soft, non tender, non distended Extremities: pedal pulses normal, other - +1 pitting edema Neurologic/Psychiatric: alert Musculoskeletal: normal muscle bulk Microbiology Date/Time Source Procedure Growth Status 05/05/18 10:26 Ascities Fluid Gram Stain - Final Resulted 05/05/18 10:26 Ascities Fluid Body Fluid Culture - Preliminary NO GROWTH AFTER 24 HOURS Resulted 05/04/18 22:00 Rectum - Final NO CARBAPENEM-RESISTANT ENTEROBACTERI... Complete Laboratory Tests 05/06/18 15:05: Digoxin Level 1.2 05/07/18 03:50: White Blood Count 3.9L, Red Blood Count 4.09L, Hemoglobin 10.8L, Hematocrit 34.6L, Mean Corpuscular Volume 85, Mean Corpuscular Hemoglobin 26.3L, Mean Corpuscular Hemoglobin Concent 31.1L, Red Cell Distribution Width 21.3H, Platelet Count 229, Mean Platelet Volume 5.8L, Neutrophils (%) (Auto) 64.1, Lymphocytes (%) (Auto) 19.1L, Monocytes (%) (Auto) 12.2H, Eosinophils (%) (Auto ) 2.0, Basophils (%) (Auto) 2.5H, Sodium Level 133L, Potassium Level 5.0, Chloride Level 95L, Carbon Dioxide Level 33H, Anion Gap 5, Blood Urea Nitrogen 31H, Creatinine 1.7H, Estimat Glomerular Filtration Rate 49.4, Glucose Level 111H, Calcium Level 9.1, Total Bilirubin 1.1H, Direct Bilirubin 0.8H, Aspartate Amino Transf (AST/SGOT) 18, Alanine Aminotransferase (ALT/SGPT) 11L, Alkaline Phosphatase 107, Pro-B-Type Natriuretic Peptide 5042H, Total Protein 7.5, Albumin 2.7L, Globulin 4.8, Albumin/Globulin Ratio 0.6L Current Medications Medications (Trade) Dose Ordered Sig/Allyn Route PRN Reason Start Time Stop Time Status Last Admin Dose Admin Acetaminophen (Tylenol) 650 mg Q4H PRN ORAL fever 05/03/18 19:00 06/02/18 18:59 Al Hydroxide/Mg Hydroxide (Mylanta II) 30 ml Q6H PRN ORAL dyspepsia 05/03/18 19:00 06/02/18 18:59 Carvedilol (Coreg) 3.125 mg DAILY ORAL 05/04/18 09:00 06/03/18 08:59 05/06/18 08:40 Chlorhexidine Gluconate (Kalani-Hex 2%) 1 applic DAILY@2000 TOPIC 05/04/18 20:00 06/03/18 19:59 05/06/18 19:59 Dextrose (Dextrose 50%) 25 ml Q30M PRN IV Hypoglycemia 05/06/18 10:15 06/05/18 10:10 Dextrose (Dextrose 50%) 50 ml Q30M PRN IV hypoglycemia 05/06/18 10:15 06/05/18 10:14 Digoxin (Lanoxin) 0.125 mg DAILY ORAL 05/04/18 09:00 06/03/18 08:59 05/06/18 08:40 Dobutamine HCl 250 ml @ 24.681 mls/ hr Q10H8M IV 05/04/18 21:00 06/03/18 20:59 05/07/18 02:00 Furosemide (Lasix) 40 mg EVERY 12 HOURS IV 05/06/18 21:00 06/05/18 20:59 05/06/18 20:47 Gabapentin (Neurontin) 100 mg DAILY ORAL 05/04/18 09:00 06/03/18 08:59 05/06/18 08:40 Levothyroxine Sodium (Synthroid) 125 mcg BEFORE BREAKFAST ORAL 05/04/18 06:30 06/03/18 06:29 05/07/18 06:17 Lisinopril (Zestril) 10 mg DAILY ORAL 05/05/18 09:00 06/04/18 08:59 05/06/18 08:49 Lorazepam (Ativan 2mg/ml 1ml) 0.5 mg Q4H PRN IV For Anxiety 05/03/18 19:00 05/10/18 18:59 Magnesium Oxide (Mag-Ox 400mg) 400 mg BID ORAL 05/04/18 18:00 06/03/18 17:59 05/06/18 17:30 Morphine Sulfate (Morphine Sulfate) 1 mg EVERY 4 HOURS PRN IVP for severe pain 05/03/18 19:00 05/10/18 18:59 05/06/18 13:52 Ondansetron HCl (Zofran) 4 mg Q6H PRN IVP Nausea & Vomiting 05/03/18 19:00 06/02/18 18:59 05/05/18 17:41 Oxycodone HCl (Roxicodone) 15 mg Q6H PRN ORAL for moderate pain 05/03/18 19:00 05/10/18 18:59 05/06/18 20:00 Polyethylene Glycol (Miralax) 17 gm HSPRN PRN ORAL Constipation 05/03/18 19:00 06/02/18 18:59 Potassium Chloride (K-Dur) 40 meq TWICE A DAY ORAL 05/04/18 18:00 06/03/18 17:59 05/06/18 17:30 Rivaroxaban (Xarelto) 15 mg QPM ORAL 05/06/18 16:30 06/05/18 16:29 05/06/18 16:53 Spironolactone (Aldactone) 25 mg DAILY ORAL 05/04/18 09:00 12/19/18 08:59 05/06/18 08:40 Zolpidem Tartrate (Ambien) 5 mg HSPRN PRN ORAL Insomnia 05/03/18 19:00 05/10/18 18:59 05/06/18 20:00 Aarti Bryant NP May 07, 2018 07:48
[2018-05-07 08:00] VITALS: BP 101/62
--- NOTE | 2018-05-07 08:22 | Nephrology Progress Note ---
Assessment/Plan Assessment/Plan A/P 1) ARIS on CKD 3B- Cr stable 1.7 - cardiorenal. Monitor on dobutamine and IV lasix - UOP 3400 ml 2. Severe CMP- on dobutamine gtt and lasix 3. ESLD- ascites - s/p paracentesis 4. SOB- resolved Subjective Date patient seen: May 07, 2018 Time patient seen: 08:20 ROS Limited/Unobtainable: No Allergies: Coded Allergies: HYDROMORPHONE (Verified Allergy, Unknown, 12/28/10) Subjective Patient continues to feel better, good UOP Objective Last 24 Hour Vital Signs Date Time Temp Pulse Resp B/P (MAP) Pulse Ox O2 Delivery O2 Flow Rate FiO2 05/07/18 04:00 Room Air 05/07/18 04:00 97.9 68 18 116/66 (83) 100 05/07/18 03:35 70 05/07/18 02:00 118/60 05/07/18 00:00 Room Air 05/07/18 00:00 97.4 73 22 94/62 (73) 100 05/06/18 23:54 70 05/06/18 20:00 97.2 70 20 110/70 (83) 99 05/06/18 20:00 Room Air 05/06/18 19:17 83 05/06/18 16:00 70 05/06/18 16:00 Room Air 05/06/18 16:00 97.5 70 19 93/65 (74) 99 05/06/18 14:22 97.7 05/06/18 13:53 120/69 05/06/18 12:00 70 05/06/18 12:00 Room Air 05/06/18 11:59 97.7 71 19 120/69 (86) 98 05/06/18 08:49 115/71 05/06/18 08:40 72 05/06/18 08:40 72 115/71 Intake and Output 05/06/18 05/07/18 19:00 07:00 Intake Total 1262.129 ml 596.172 ml Output Total 2150 ml 1250 ml Balance -887.871 ml -653.828 ml Intake Oral 1040 ml 300 ml IV Total 222.129 ml 296.172 ml Output Urine Total 1550 ml 1250 ml Stool Total 600 ml # Bowel Movements 4 Laboratory Tests 05/06/18 15:05: Digoxin Level 1.2 05/07/18 03:50: White Blood Count 3.9L, Red Blood Count 4.09L, Hemoglobin 10.8L, Hematocrit 34.6L, Mean Corpuscular Volume 85, Mean Corpuscular Hemoglobin 26.3L, Mean Corpuscular Hemoglobin Concent 31.1L, Red Cell Distribution Width 21.3H, Platelet Count 229, Mean Platelet Volume 5.8L, Neutrophils (%) (Auto) 64.1, Lymphocytes (%) (Auto) 19.1L, Monocytes (%) (Auto) 12.2H, Eosinophils (%) (Auto ) 2.0, Basophils (%) (Auto) 2.5H, Sodium Level 133L, Potassium Level 5.0, Chloride Level 95L, Carbon Dioxide Level 33H, Anion Gap 5, Blood Urea Nitrogen 31H, Creatinine 1.7H, Estimat Glomerular Filtration Rate 49.4, Glucose Level 111H, Calcium Level 9.1, Total Bilirubin 1.1H, Direct Bilirubin 0.8H, Aspartate Amino Transf (AST/SGOT) 18, Alanine Aminotransferase (ALT/SGPT) 11L, Alkaline Phosphatase 107, Pro-B-Type Natriuretic Peptide 5042H, Total Protein 7.5, Albumin 2.7L, Globulin 4.8, Albumin/Globulin Ratio 0.6L Height (Feet): 5 Height (Inches): 9.00 Weight (Pounds): 153 General Appearance: no apparent distress, alert EENT: normal ENT inspection Neck: non-tender, supple Cardiovascular: normal rate, regular rhythm Respiratory/Chest: lungs clear, normal breath sounds Abdomen: distended Edema: no edema noted Arm (L), no edema noted Arm (R), no edema noted Leg (L), no edema noted Leg (R), no edema noted Pedal (L), no edema noted Pedal (R), no edema noted Generalized Sherwin Hawkins MD May 07, 2018 08:22
--- NOTE | 2018-05-07 09:04 | Cardiac Electrophysiology PN ---
Assessment/Plan Assessment/Plan 1. Exacerbation of congestive heart failure with EF only 10%. On dobutamine drip at 5 mcg/minute, Lasix 40 iv bid, Aldactone and lisinopril. 2. Status post [facility] [place] defibrillator implantation with upgrade to Bi-V ICD. Interrogation recently showed normal LV function. 3. Hepatitis and ascites. s/p 1.5 liter paracentesis 4. Paroxysmal atrial fibrillation, currently persistent, status post ablation and Xarelto 5. Hypothyroidism on Synthroid. EDMAR RN Subjective Subjective Feeling better after paracentesis. On Dobutamine 5 mcg/kg/min and Lasix. Wants to go home. Objective Last 24 Hour Vital Signs Date Time Temp Pulse Resp B/P (MAP) Pulse Ox O2 Delivery O2 Flow Rate FiO2 05/07/18 07:49 71 05/07/18 04:00 Room Air 05/07/18 04:00 97.9 68 18 116/66 (83) 100 05/07/18 03:35 70 05/07/18 02:00 118/60 05/07/18 00:00 Room Air 05/07/18 00:00 97.4 73 22 94/62 (73) 100 05/06/18 23:54 70 05/06/18 20:00 97.2 70 20 110/70 (83) 99 05/06/18 20:00 Room Air 05/06/18 19:17 83 05/06/18 16:00 70 05/06/18 16:00 Room Air 05/06/18 16:00 97.5 70 19 93/65 (74) 99 05/06/18 14:22 97.7 05/06/18 13:53 120/69 05/06/18 12:00 70 05/06/18 12:00 Room Air 05/06/18 11:59 97.7 71 19 120/69 (86) 98 Intake and Output 05/06/18 05/07/18 19:00 07:00 Intake Total 1262.129 ml 596.172 ml Output Total 2150 ml 1250 ml Balance -887.871 ml -653.828 ml Intake Oral 1040 ml 300 ml IV Total 222.129 ml 296.172 ml Output Urine Total 1550 ml 1250 ml Stool Total 600 ml # Bowel Movements 4 Laboratory Tests Test 05/06/18 15:05 05/07/18 03:50 Digoxin Level 1.2 NG/ML (0.5-2.0) White Blood Count 3.9 K/UL (4.8-10.8) L Red Blood Count 4.09 M/UL (4.70-6.10) L Hemoglobin 10.8 G/DL (14.2-18.0) L Hematocrit 34.6 % (42.0-52.0) L Mean Corpuscular Volume 85 FL (80-99) Mean Corpuscular Hemoglobin 26.3 PG (27.0-31.0) L Mean Corpuscular Hemoglobin Concent 31.1 G/DL (32.0-36.0) L Red Cell Distribution Width 21.3 % (11.6-14.8) H Platelet Count 229 K/UL (150-450) Mean Platelet Volume 5.8 FL (6.5-10.1) L Neutrophils (%) (Auto) 64.1 % (45.0-75.0) Lymphocytes (%) (Auto) 19.1 % (20.0-45.0) L Monocytes (%) (Auto) 12.2 % (1.0-10.0) H Eosinophils (%) (Auto) 2.0 % (0.0-3.0) Basophils (%) (Auto) 2.5 % (0.0-2.0) H Sodium Level 133 MMOL/L (136-145) L Potassium Level 5.0 MMOL/L (3.5-5.1) Chloride Level 95 MMOL/L (98-107) L Carbon Dioxide Level 33 MMOL/L (21-32) H Anion Gap 5 mmol/L (5-15) Blood Urea Nitrogen 31 mg/dL (7-18) H Creatinine 1.7 MG/DL (0.55-1.30) H Estimat Glomerular Filtration Rate 49.4 mL/min (>60) Glucose Level 111 MG/DL (74-106) H Calcium Level 9.1 MG/DL (8.5-10.1) Total Bilirubin 1.1 MG/DL (0.2-1.0) H Direct Bilirubin 0.8 MG/DL (0.0-0.3) H Aspartate Amino Transf (AST/SGOT) 18 U/L (15-37) Alanine Aminotransferase (ALT/SGPT) 11 U/L (12-78) L Alkaline Phosphatase 107 U/L (46-116) Pro-B-Type Natriuretic Peptide 5042 pg/mL (0-125) H Total Protein 7.5 G/DL (6.4-8.2) Albumin 2.7 G/DL (3.4-5.0) L Globulin 4.8 g/dL Albumin/Globulin Ratio 0.6 (1.0-2.7) L Microbiology Date/Time Source Procedure Growth Status 05/05/18 10:26 Ascities Fluid Gram Stain - Final Resulted 05/05/18 10:26 Ascities Fluid Body Fluid Culture - Preliminary NO GROWTH AFTER 24 HOURS Resulted 05/04/18 22:00 Rectum - Final NO CARBAPENEM-RESISTANT ENTEROBACTERI... Complete Objective HEAD AND NECK: Positive jugular venous distention. LUNGS: Decreased breath sounds with basilar rales. CARDIOVASCULAR: Regular S1 and S2 with no gallop or murmur. Defibrillator in left subclavian. ABDOMEN: Ascites. EXTREMITIES: 1+ pitting edema. Rc Zhang MD May 07, 2018 09:04
[2018-05-07] MEDS ORDERED: NS 275ml ONE (09:13)
[2018-05-07] MEDS ORDERED: Tubing IV Secondary IV ONE (09:13)
[2018-05-07] MEDS: Lisinopril 10mg tab ORAL SCH (09:36)
[2018-05-07] MEDS: Digoxin 0.125mg tab ORAL SCH (09:36)
[2018-05-07] MEDS: Spironolactone 50mg tab ORAL SCH (09:37)
[2018-05-07] MEDS: Magnesium Oxide 400mg tab ORAL SCH ×2 (09:37→17:10)
[2018-05-07] MEDS: Morphine Sulfate 2mg/ml Inj IVP PRN ×2 (10:33→16:10)
--- NOTE | 2018-05-07 10:58 | Diagnostic Imaging Report ---
EXAM: XR Chest, 1 View CLINICAL HISTORY: DYSPNEA TECHNIQUE: Frontal view of the chest. COMPARISON: 05/06/18 FINDINGS: Lungs: Unremarkable. The lungs appear clear. No confluent pulmonary opacities. Pleural space: Unremarkable. The costophrenic angles are sharp. No visible pneumothorax. Heart: Cardiomegaly. Mediastinum: Unremarkable. Bones/joints: Unremarkable. Tubes, lines and devices: Cardiac pacer/ICD in the left chest wall with lead tips overlying the right atrium and ventricle regions. Stable positioning of a right arm PICC. IMPRESSION: No significant interval change. Cardiomegaly.
[2018-05-07 12:00] VITALS: BP 104/64
--- NOTE | 2018-05-07 13:08 | General Progress Note ---
Assessment/Plan Problem List: (1) CHF (congestive heart failure) ICD Codes: I50.9 - Heart failure, unspecified SNOMED: 14374172 (2) Edema ICD Codes: R60.9 - Edema, unspecified SNOMED: 681335499, 558950203 (3) Anemia ICD Codes: D64.9 - Anemia, unspecified SNOMED: 178227217 (4) Renal failure ICD Codes: N19 - Unspecified kidney failure SNOMED: 70073846 (5) Acute respiratory failure ICD Codes: J96.00 - Acute respiratory failure SNOMED: 17431098 (6) Ascites ICD Codes: R18.8 - Ascites SNOMED: 904858153 (7) Right-sided heart failure ICD Codes: I50.9 - Right-sided heart failure SNOMED: 028270137 (8) Abdominal pain ICD Codes: R10.9 - Abdominal pain SNOMED: 86616341 (9) Cardiomyopathy due to hypertension, with heart failure ICD Codes: I11.0 - Cardiomyopathy due to hypertension, with heart failure; I42.9 - Cardiomyopathy, unspecified SNOMED: 66463031 (10) Cirrhosis ICD Codes: K74.60 - Unspecified cirrhosis of liver SNOMED: 59812259 (11) Hypothyroidism ICD Codes: E03.9 - Hypothyroidism SNOMED: 29030677 (12) Acute renal failure (ARF) ICD Codes: N17.9 - Acute kidney failure, unspecified SNOMED: 22409735 (13) ICD (implantable cardioverter-defibrillator) in place ICD Codes: Z95.810 - Presence of automatic (implantable) cardiac defibrillator SNOMED: 985602347, 385270241 (14) EF < 10% (15) ACS (acute coronary syndrome) ICD Codes: I24.9 - Acute coronary syndrome SNOMED: 632019274 (16) Emphysema lung ICD Codes: J43.9 - Emphysema lung SNOMED: 27454048 (17) Hepatitis C ICD Codes: B19.20 - Hepatitis C SNOMED: 12979753 Status: progressing Assessment/Plan no sob no bleeding cirrhosis resp insuff reviewed chart and labs Subjective ROS Limited/Unobtainable: Yes Allergies: Coded Allergies: HYDROMORPHONE (Verified Allergy, Unknown, 12/28/10) Objective Last 24 Hour Vital Signs Date Time Temp Pulse Resp B/P (MAP) Pulse Ox O2 Delivery O2 Flow Rate FiO2 05/07/18 12:00 Room Air 05/07/18 12:00 97.8 76 21 104/64 (77) 99 05/07/18 09:37 69 101/62 05/07/18 09:36 101/62 05/07/18 09:36 69 05/07/18 08:00 Room Air 05/07/18 08:00 97.7 69 21 101/62 (75) 99 05/07/18 07:49 71 05/07/18 04:00 Room Air 05/07/18 04:00 97.9 68 18 116/66 (83) 100 05/07/18 03:35 70 05/07/18 02:00 118/60 05/07/18 00:00 Room Air 05/07/18 00:00 97.4 73 22 94/62 (73) 100 05/06/18 23:54 70 05/06/18 20:00 97.2 70 20 110/70 (83) 99 05/06/18 20:00 Room Air 05/06/18 19:17 83 05/06/18 16:00 70 05/06/18 16:00 Room Air 05/06/18 16:00 97.5 70 19 93/65 (74) 99 05/06/18 14:22 97.7 05/06/18 13:53 120/69 Intake and Output 05/06/18 05/07/18 19:00 07:00 Intake Total 1262.129 ml 596.172 ml Output Total 2150 ml 1250 ml Balance -887.871 ml -653.828 ml Intake Oral 1040 ml 300 ml IV Total 222.129 ml 296.172 ml Output Urine Total 1550 ml 1250 ml Stool Total 600 ml # Bowel Movements 4 Laboratory Tests 05/06/18 15:05: Digoxin Level 1.2 05/07/18 03:50: White Blood Count 3.9L, Red Blood Count 4.09L, Hemoglobin 10.8L, Hematocrit 34.6L, Mean Corpuscular Volume 85, Mean Corpuscular Hemoglobin 26.3L, Mean Corpuscular Hemoglobin Concent 31.1L, Red Cell Distribution Width 21.3H, Platelet Count 229, Mean Platelet Volume 5.8L, Neutrophils (%) (Auto) 64.1, Lymphocytes (%) (Auto) 19.1L, Monocytes (%) (Auto) 12.2H, Eosinophils (%) (Auto ) 2.0, Basophils (%) (Auto) 2.5H, Sodium Level 133L, Potassium Level 5.0, Chloride Level 95L, Carbon Dioxide Level 33H, Anion Gap 5, Blood Urea Nitrogen 31H, Creatinine 1.7H, Estimat Glomerular Filtration Rate 49.4, Glucose Level 111H, Calcium Level 9.1, Total Bilirubin 1.1H, Direct Bilirubin 0.8H, Aspartate Amino Transf (AST/SGOT) 18, Alanine Aminotransferase (ALT/SGPT) 11L, Alkaline Phosphatase 107, Pro-B-Type Natriuretic Peptide 5042H, Total Protein 7.5, Albumin 2.7L, Globulin 4.8, Albumin/Globulin Ratio 0.6L Height (Feet): 5 Height (Inches): 9.00 Weight (Pounds): 152 General Appearance: confused Respiratory/Chest: lungs clear Abdomen: tender Winston Jin MD May 07, 2018 13:08
[2018-05-07 16:00] VITALS: BP 94/58
[2018-05-07] MEDS: Xarelto 15mg tab ORAL SCH (16:09)
[2018-05-07 20:00] VITALS: BP 108/63
[2018-05-07] MEDS: Dyna-Hex 2% Top Sol 2oz TOPIC SCH (20:00)
[2018-05-07] MEDS: oxyCODONE 15mg IR tab ORAL PRN (21:05)
[2018-05-07] MEDS: Zolpidem 5mg tab ORAL PRN (21:05)
--- NOTE | 2018-05-07 23:11 | Diagnostic Imaging Report ---
APPROVED REPORT CPT Code: 27064 Present Symptoms Lower Extremity Edema: Bilateral BILATERAL: Imaging reveals a patent deep venous system bilaterally. There is no evidence of thrombus within the femoral, popliteal or tibial segments. The greater saphenous veins are also within normal limits. Doppler indicates normal spontaneous flow within these segments.
[2018-05-08] VITALS: BP 100/66
[2018-05-08] MEDS: DOBUTamine 250mg/250ml Premix 250 ML IV SCH ×3 (00:20→15:40)
[2018-05-08 04:00] VITALS: BP 108/66
[2018-05-08 05:29] LABS: ANION GAP 6 mmol/L (5-15); BLOOD UREA NITROGEN 33 mg/dL (7-18); CARBON DIOXIDE 31 MMOL/L (21-32); CHLORIDE 97 MMOL/L (98-107); POTASSIUM 4.8 MMOL/L (3.5-5.1); SODIUM 134 MMOL/L (136-145)
[2018-05-08] MEDS: Levothyroxine 125mcg tab ORAL SCH (06:16)
[2018-05-08 08:00] VITALS: BP 98/65
[2018-05-08] MEDS: Spironolactone 50mg tab ORAL SCH (08:45)
[2018-05-08] MEDS: Digoxin 0.125mg tab ORAL SCH (08:46)
[2018-05-08] MEDS: Magnesium Oxide 400mg tab ORAL SCH (08:46)
--- NOTE | 2018-05-08 08:48 | Nephrology Progress Note ---
Assessment/Plan Assessment/Plan A/P 1) ARIS on CKD 3B- Cr 1.5----1.7----2 - cardiorenal. Monitor on dobutamine - hold lasix today as Cr increased >25% 2. Severe CMP- on dobutamine gtt 3. ESLD- ascites - s/p paracentesis 4. SOB- resolved Hold lasix. Monitor Cr as patient relatively hypotensive and on aldactone and lisinopril Subjective Date patient seen: May 08, 2018 Time patient seen: 08:46 ROS Limited/Unobtainable: No Gastrointestinal/Abdominal: Reports: abdomen distended Allergies: Coded Allergies: HYDROMORPHONE (Verified Allergy, Unknown, 12/28/10) Subjective Patient feels better, good UOP. Objective Last 24 Hour Vital Signs Date Time Temp Pulse Resp B/P (MAP) Pulse Ox O2 Delivery O2 Flow Rate FiO2 05/08/18 08:00 97.0 78 18 98/65 (76) 98 05/08/18 04:00 Room Air 05/08/18 04:00 97.8 75 20 108/66 (80) 100 05/08/18 03:44 75 05/08/18 00:20 100/66 05/08/18 00:00 Room Air 05/08/18 00:00 97.8 74 20 100/66 (77) 100 05/07/18 23:24 73 05/07/18 20:00 98.1 73 20 108/63 (78) 100 05/07/18 20:00 Room Air 05/07/18 19:37 72 05/07/18 16:31 75 05/07/18 16:00 97.7 72 19 94/58 (70) 98 05/07/18 16:00 Room Air 05/07/18 13:32 71 05/07/18 13:00 104/64 05/07/18 12:00 Room Air 05/07/18 12:00 97.8 76 21 104/64 (77) 99 05/07/18 09:37 69 101/62 05/07/18 09:36 101/62 05/07/18 09:36 69 Intake and Output 05/07/18 05/08/18 19:00 07:00 Intake Total 606.810 ml 637.945 ml Output Total 1700 ml 300 ml Balance -1093.190 ml 337.945 ml Intake Oral 360 ml 350 ml IV Total 246.810 ml 287.945 ml Output Urine Total 1700 ml 300 ml Laboratory Tests 05/08/18 03:30: Sodium Level 134L, Potassium Level 4.8, Chloride Level 97L, Carbon Dioxide Level 31, Anion Gap 6, Blood Urea Nitrogen 33H, Creatinine 2.0H, Estimat Glomerular Filtration Rate 41.0, Glucose Level 84, Calcium Level 9.0 Height (Feet): 5 Height (Inches): 9.00 Weight (Pounds): 152 General Appearance: no apparent distress, alert EENT: normal ENT inspection Neck: normal alignment, supple Cardiovascular: normal rate, regular rhythm Respiratory/Chest: lungs clear, normal breath sounds Abdomen: distended Edema: no edema noted Arm (L), no edema noted Arm (R), no edema noted Leg (L), no edema noted Leg (R), no edema noted Pedal (L), no edema noted Pedal (R), no edema noted Generalized Sherwin Hawkins MD May 08, 2018 08:48
[2018-05-08] MEDS ORDERED: Lisinopril 10mg tab ORAL SCH (09:00)
[2018-05-08] MEDS ORDERED: Tubing IV Secondary IV ONE (10:36)
[2018-05-08] MEDS ORDERED: NS 275ml ONE (10:36)
--- NOTE | 2018-05-08 10:56 | General Progress Note ---
Assessment/Plan Problem List: (1) CHF (congestive heart failure) ICD Codes: I50.9 - Heart failure, unspecified SNOMED: 55933367 (2) Edema ICD Codes: R60.9 - Edema, unspecified SNOMED: 829111473, 533347736 (3) Anemia ICD Codes: D64.9 - Anemia, unspecified SNOMED: 700104710 (4) Renal failure ICD Codes: N19 - Unspecified kidney failure SNOMED: 58121007 (5) Acute respiratory failure ICD Codes: J96.00 - Acute respiratory failure SNOMED: 85125961 (6) Ascites ICD Codes: R18.8 - Ascites SNOMED: 631622986 (7) Right-sided heart failure ICD Codes: I50.9 - Right-sided heart failure SNOMED: 916141098 (8) Abdominal pain ICD Codes: R10.9 - Abdominal pain SNOMED: 34983460 (9) Cardiomyopathy due to hypertension, with heart failure ICD Codes: I11.0 - Cardiomyopathy due to hypertension, with heart failure; I42.9 - Cardiomyopathy, unspecified SNOMED: 35052834 (10) Cirrhosis ICD Codes: K74.60 - Unspecified cirrhosis of liver SNOMED: 87978147 (11) Hypothyroidism ICD Codes: E03.9 - Hypothyroidism SNOMED: 97648057 (12) Acute renal failure (ARF) ICD Codes: N17.9 - Acute kidney failure, unspecified SNOMED: 50832189 (13) ICD (implantable cardioverter-defibrillator) in place ICD Codes: Z95.810 - Presence of automatic (implantable) cardiac defibrillator SNOMED: 888185980, 826094967 (14) EF < 10% (15) ACS (acute coronary syndrome) ICD Codes: I24.9 - Acute coronary syndrome SNOMED: 525599170 (16) Emphysema lung ICD Codes: J43.9 - Emphysema lung SNOMED: 29702461 (17) Hepatitis C ICD Codes: B19.20 - Hepatitis C SNOMED: 66642028 Status: progressing Assessment/Plan azotemia acs arrythmia reviewed chart and labs cirrhosis resp insuff Subjective ROS Limited/Unobtainable: Yes Allergies: Coded Allergies: HYDROMORPHONE (Verified Allergy, Unknown, 12/28/10) Objective Last 24 Hour Vital Signs Date Time Temp Pulse Resp B/P (MAP) Pulse Ox O2 Delivery O2 Flow Rate FiO2 05/08/18 08:46 98/65 05/08/18 08:46 78 05/08/18 08:46 78 98/65 05/08/18 08:00 97.0 78 18 98/65 (76) 98 05/08/18 04:00 Room Air 05/08/18 04:00 97.8 75 20 108/66 (80) 100 05/08/18 03:44 75 05/08/18 00:20 100/66 05/08/18 00:00 Room Air 05/08/18 00:00 97.8 74 20 100/66 (77) 100 05/07/18 23:24 73 05/07/18 20:00 98.1 73 20 108/63 (78) 100 05/07/18 20:00 Room Air 05/07/18 19:37 72 05/07/18 16:31 75 05/07/18 16:00 97.7 72 19 94/58 (70) 98 05/07/18 16:00 Room Air 05/07/18 13:32 71 05/07/18 13:00 104/64 05/07/18 12:00 Room Air 05/07/18 12:00 97.8 76 21 104/64 (77) 99 Intake and Output 05/07/18 05/08/18 19:00 07:00 Intake Total 606.810 ml 637.945 ml Output Total 1700 ml 300 ml Balance -1093.190 ml 337.945 ml Intake Oral 360 ml 350 ml IV Total 246.810 ml 287.945 ml Output Urine Total 1700 ml 300 ml Laboratory Tests 05/08/18 03:30: Sodium Level 134L, Potassium Level 4.8, Chloride Level 97L, Carbon Dioxide Level 31, Anion Gap 6, Blood Urea Nitrogen 33H, Creatinine 2.0H, Estimat Glomerular Filtration Rate 41.0, Glucose Level 84, Calcium Level 9.0 Height (Feet): 5 Height (Inches): 9.00 Weight (Pounds): 152 General Appearance: confused Respiratory/Chest: lungs clear Abdomen: soft Winston Jin MD May 08, 2018 10:56
[2018-05-08] MEDS: Morphine Sulfate 2mg/ml Inj IVP PRN (11:28)
--- NOTE | 2018-05-08 11:56 | Pulmonology Progress Note ---
Assessment/Plan Problems: (1) Cardiogenic shock (2) Ascites (3) EF < 10% (4) Emphysema lung (5) Hypothyroidism (6) Cirrhosis (7) Hepatitis C Assessment/Plan paracentesis is done, 1.5 liters drained off laxis because of rising Creatinine hold lisinopril, Mylanta and Mg dc morphine IV, check electrolytes in am check BNP in am continue Synthyroid Subjective ROS Limited/Unobtainable: No Constitutional: Reports: no symptoms HEENT: Repors: no symptoms Respiratory: Reports: no symptoms Allergies: Coded Allergies: HYDROMORPHONE (Verified Allergy, Unknown, 12/28/10) Objective Last 24 Hour Vital Signs Date Time Temp Pulse Resp B/P (MAP) Pulse Ox O2 Delivery O2 Flow Rate FiO2 05/08/18 08:46 98/65 05/08/18 08:46 78 05/08/18 08:46 78 98/65 05/08/18 08:00 97.0 78 18 98/65 (76) 98 05/08/18 07:31 75 05/08/18 04:00 Room Air 05/08/18 04:00 97.8 75 20 108/66 (80) 100 05/08/18 03:44 75 05/08/18 00:20 100/66 05/08/18 00:00 Room Air 05/08/18 00:00 97.8 74 20 100/66 (77) 100 05/07/18 23:24 73 05/07/18 20:00 98.1 73 20 108/63 (78) 100 05/07/18 20:00 Room Air 05/07/18 19:37 72 05/07/18 16:31 75 05/07/18 16:00 97.7 72 19 94/58 (70) 98 05/07/18 16:00 Room Air 05/07/18 13:32 71 05/07/18 13:00 104/64 05/07/18 12:00 Room Air 05/07/18 12:00 97.8 76 21 104/64 (77) 99 Intake and Output 05/07/18 05/08/18 19:00 07:00 Intake Total 606.810 ml 637.945 ml Output Total 1700 ml 300 ml Balance -1093.190 ml 337.945 ml Intake Oral 360 ml 350 ml IV Total 246.810 ml 287.945 ml Output Urine Total 1700 ml 300 ml General Appearance: cachetic HEENT: normocephalic, atraumatic Respiratory/Chest: chest wall non-tender, lungs clear Cardiovascular: normal peripheral pulses, normal rate Abdomen: normal bowel sounds, soft, non tender Genitourinary: normal external genitalia Extremities: no cyanosis 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, abnormal gait Laboratory Tests 05/08/18 03:30: Sodium Level 134L, Potassium Level 4.8, Chloride Level 97L, Carbon Dioxide Level 31, Anion Gap 6, Blood Urea Nitrogen 33H, Creatinine 2.0H, Estimat Glomerular Filtration Rate 41.0, Glucose Level 84, Calcium Level 9.0 Current Medications Medications (Trade) Dose Ordered Sig/Allyn Route PRN Reason Start Time Stop Time Status Last Admin Dose Admin Acetaminophen (Tylenol) 650 mg Q4H PRN ORAL fever 05/03/18 19:00 06/02/18 18:59 Al Hydroxide/Mg Hydroxide (Mylanta II) 30 ml Q6H PRN ORAL dyspepsia 05/03/18 19:00 06/02/18 18:59 Carvedilol (Coreg) 3.125 mg DAILY ORAL 05/04/18 09:00 06/03/18 08:59 05/07/18 09:37 Chlorhexidine Gluconate (Kalani-Hex 2%) 1 applic DAILY@2000 TOPIC 05/04/18 20:00 06/03/18 19:59 05/07/18 20:00 Dextrose (Dextrose 50%) 25 ml Q30M PRN IV Hypoglycemia 05/06/18 10:15 06/05/18 10:10 Dextrose (Dextrose 50%) 50 ml Q30M PRN IV hypoglycemia 05/06/18 10:15 06/05/18 10:14 Digoxin (Lanoxin) 0.125 mg DAILY ORAL 05/04/18 09:00 06/03/18 08:59 05/08/18 08:46 Dobutamine HCl 250 ml @ 24.681 mls/ hr Q10H8M IV 05/04/18 21:00 06/03/18 20:59 05/08/18 00:20 Gabapentin (Neurontin) 100 mg DAILY ORAL 05/04/18 09:00 06/03/18 08:59 05/08/18 08:46 Levothyroxine Sodium (Synthroid) 125 mcg BEFORE BREAKFAST ORAL 05/04/18 06:30 06/03/18 06:29 05/08/18 06:16 Lisinopril (Zestril) 10 mg DAILY ORAL 05/08/18 09:00 06/04/18 08:59 Lorazepam (Ativan 2mg/ml 1ml) 0.5 mg Q4H PRN IV For Anxiety 05/03/18 19:00 05/10/18 18:59 Magnesium Oxide (Mag-Ox 400mg) 400 mg BID ORAL 05/04/18 18:00 06/03/18 17:59 05/08/18 08:46 Morphine Sulfate (Morphine Sulfate) 1 mg EVERY 4 HOURS PRN IVP for severe pain 05/03/18 19:00 05/10/18 18:59 05/08/18 11:28 Ondansetron HCl (Zofran) 4 mg Q6H PRN IVP Nausea & Vomiting 05/03/18 19:00 06/02/18 18:59 05/05/18 17:41 Oxycodone HCl (Roxicodone) 15 mg Q6H PRN ORAL for moderate pain 05/03/18 19:00 05/10/18 18:59 05/07/18 21:05 Polyethylene Glycol (Miralax) 17 gm HSPRN PRN ORAL Constipation 05/03/18 19:00 06/02/18 18:59 Rivaroxaban (Xarelto) 15 mg QPM ORAL 05/06/18 16:30 06/05/18 16:29 05/07/18 16:09 Spironolactone (Aldactone) 25 mg DAILY ORAL 05/04/18 09:00 06/03/18 08:59 05/08/18 08:45 Zolpidem Tartrate (Ambien) 5 mg HSPRN PRN ORAL Insomnia 05/03/18 19:00 05/10/18 18:59 05/07/18 21:05 Andrzej Chavarria MD May 08, 2018 11:56
[2018-05-08 12:00] VITALS: BP 102/77
[2018-05-08 16:00] VITALS: BP 110/79
--- NOTE | 2018-05-08 16:03 | Cardiac Electrophysiology PN ---
Assessment/Plan Assessment/Plan 1. Exacerbation of congestive heart failure with EF only 10%. Decrease dobutamine to 4 mcg/minute, Aldactone and lisinopril. Lasix held by Dr Alberto 2. Status post [employer] defibrillator implantation with upgrade to Bi-V ICD. Interrogation recently showed normal LV function. 3. Hepatitis and ascites. s/p 1.5 liter paracentesis 4. Persistent atrial fibrillation, status post ablation on Xarelto 5. Hypothyroidism on Synthroid. EDMAR RN Subjective Subjective Feeling better. On Dobutamine 5 mcg/kg/min and Lasix Objective Last 24 Hour Vital Signs Date Time Temp Pulse Resp B/P (MAP) Pulse Ox O2 Delivery O2 Flow Rate FiO2 05/08/18 15:40 102/77 05/08/18 12:39 102/77 05/08/18 12:00 98.1 69 20 102/77 (85) 100 05/08/18 12:00 Room Air 05/08/18 11:45 70 05/08/18 08:46 98/65 05/08/18 08:46 78 05/08/18 08:46 78 98/65 05/08/18 08:00 97.0 78 18 98/65 (76) 98 05/08/18 08:00 Room Air 05/08/18 07:31 75 05/08/18 04:00 Room Air 05/08/18 04:00 97.8 75 20 108/66 (80) 100 05/08/18 03:44 75 05/08/18 00:20 100/66 05/08/18 00:00 Room Air 05/08/18 00:00 97.8 74 20 100/66 (77) 100 05/07/18 23:24 73 05/07/18 20:00 98.1 73 20 108/63 (78) 100 05/07/18 20:00 Room Air 05/07/18 19:37 72 05/07/18 16:31 75 Intake and Output 05/07/18 05/08/18 18:59 06:59 Intake Total 606.810 ml 637.945 ml Output Total 1700 ml 300 ml Balance -1093.190 ml 337.945 ml Intake Oral 360 ml 350 ml IV Total 246.810 ml 287.945 ml Output Urine Total 1700 ml 300 ml Laboratory Tests Test 05/08/18 03:30 Sodium Level 134 MMOL/L (136-145) L Potassium Level 4.8 MMOL/L (3.5-5.1) Chloride Level 97 MMOL/L (98-107) L Carbon Dioxide Level 31 MMOL/L (21-32) Anion Gap 6 mmol/L (5-15) Blood Urea Nitrogen 33 mg/dL (7-18) H Creatinine 2.0 MG/DL (0.55-1.30) H Estimat Glomerular Filtration Rate 41.0 mL/min (>60) Glucose Level 84 MG/DL (74-106) Calcium Level 9.0 MG/DL (8.5-10.1) Objective HEAD AND NECK: Positive jugular venous distention. LUNGS: Decreased breath sounds with basilar rales. CARDIOVASCULAR: Regular S1 and S2 with no gallop or murmur. Defibrillator in left subclavian. ABDOMEN: Ascites. EXTREMITIES: 1+ pitting edema. Rc Zhang MD May 08, 2018 16:03
[2018-05-08] MEDS: Xarelto 15mg tab ORAL SCH (16:29)
[2018-05-08] MEDS: oxyCODONE 15mg IR tab ORAL PRN ×2 (18:18→20:04)
[2018-05-08 20:00] VITALS: BP 94/64
[2018-05-08] MEDS: Dyna-Hex 2% Top Sol 2oz TOPIC SCH (20:03)
[2018-05-08] MEDS: Zolpidem 5mg tab ORAL PRN (20:03)
[2018-05-09] VITALS: BP 104/67
[2018-05-09] MEDS: DOBUTamine 250mg/250ml Premix 250 ML IV SCH ×2 (01:54→17:47)
[2018-05-09 04:00] VITALS: BP 104/67
[2018-05-09 05:05] LABS: BASOPHILS % (AUTO) 1.3 % (0.0-2.0); EOSINOPHILS % (AUTO) 1.9 % (0.0-3.0); HEMATOCRIT 32.9 % (42.0-52.0); HEMOGLOBIN 10.9 G/DL (14.2-18.0); LYMPHOCYTES % (AUTO) 20.2 % (20.0-45.0); MEAN CORPUSCULAR VOLUME 85 FL (80-99); MONOCYTES % (AUTO) 9.7 % (1.0-10.0); NEUTROPHILS % (AUTO) 66.9 % (45.0-75.0); PLATELET COUNT 213 K/UL (150-450); RED BLOOD COUNT 3.89 M/UL (4.70-6.10); RED CELL DISTRIBUTION WIDTH 20.9 % (11.6-14.8); WHITE BLOOD COUNT 3.8 K/UL (4.8-10.8)
[2018-05-09 05:26] LABS: ALANINE AMINOTRANSFERASE 16 U/L (12-78); ALBUMIN 2.9 G/DL (3.4-5.0); ALBUMIN/GLOBULIN RATIO 0.5 (1.0-2.7); ALKALINE PHOSPHATASE 110 U/L (46-116); ANION GAP 4 mmol/L (5-15); ASPARTATE AMINO TRANSFERASE 20 U/L (15-37); BILIRUBIN,TOTAL 0.8 MG/DL (0.2-1.0); BLOOD UREA NITROGEN 37 mg/dL (7-18); CARBON DIOXIDE 29 MMOL/L (21-32); CHLORIDE 99 MMOL/L (98-107); CREATININE 1.7 MG/DL (0.55-1.30); SODIUM 132 MMOL/L (136-145)
[2018-05-09] MEDS: Levothyroxine 125mcg tab ORAL SCH (05:59)
[2018-05-09 08:00] VITALS: BP 119/78
--- NOTE | 2018-05-09 08:16 | Nephrology Progress Note ---
Assessment/Plan Assessment/Plan A/P 1) ARIS on CKD 3B- Cr 1.5----1.7----2-----------> back to 1.7 - cardiorenal. Monitor on dobutamine - restart po lasix 2. Severe CMP- on dobutamine gtt 3. ESLD- ascites - s/p paracentesis 4. SOB- resolved Monitor cr on lasix/aldactone and Lisinopril Subjective Date patient seen: May 09, 2018 Time patient seen: 08:14 ROS Limited/Unobtainable: No Allergies: Coded Allergies: HYDROMORPHONE (Verified Allergy, Unknown, 12/28/10) All Systems: reviewed and negative except above Subjective Patient feels better. No current complaints Objective Last 24 Hour Vital Signs Date Time Temp Pulse Resp B/P (MAP) Pulse Ox O2 Delivery O2 Flow Rate FiO2 05/09/18 04:00 97.3 73 18 104/67 (79) 98 05/09/18 04:00 Room Air 05/09/18 03:37 78 05/09/18 01:54 112/68 05/09/18 00:00 Room Air 05/09/18 00:00 97.7 78 18 104/67 (79) 98 05/08/18 23:34 81 05/08/18 20:00 Room Air 05/08/18 20:00 98.1 72 18 94/64 (74) 98 05/08/18 19:46 73 05/08/18 16:00 98.1 67 20 110/79 (89) 100 05/08/18 16:00 Room Air 05/08/18 15:40 102/77 05/08/18 15:28 75 05/08/18 12:39 102/77 05/08/18 12:00 98.1 69 20 102/77 (85) 100 05/08/18 12:00 Room Air 05/08/18 11:45 70 05/08/18 08:46 98/65 05/08/18 08:46 78 05/08/18 08:46 78 98/65 Intake and Output 05/08/18 05/09/18 19:00 07:00 Intake Total 912.716 ml 484.8 ml Output Total 900 ml 200 ml Balance 12.716 ml 284.8 ml Intake Oral 700 ml 300 ml IV Total 212.716 ml 184.8 ml Output Urine Total 900 ml 200 ml Laboratory Tests 05/09/18 04:00: White Blood Count 3.8L, Red Blood Count 3.89L, Hemoglobin 10.9L, Hematocrit 32.9L, Mean Corpuscular Volume 85, Mean Corpuscular Hemoglobin 27.9, Mean Corpuscular Hemoglobin Concent 33.0, Red Cell Distribution Width 20.9H, Platelet Count 213, Mean Platelet Volume 6.0L, Neutrophils (%) (Auto) 66.9, Lymphocytes (%) (Auto) 20.2, Monocytes (%) (Auto) 9.7, Eosinophils (%) (Auto) 1.9, Basophils (%) (Auto) 1.3, Sodium Level 132L, Potassium Level 5.0, Chloride Level 99, Carbon Dioxide Level 29, Anion Gap 4L, Blood Urea Nitrogen 37H, Creatinine 1.7H, Estimat Glomerular Filtration Rate 49.4, Glucose Level 103, Calcium Level 9.0, Total Bilirubin 0.8, Aspartate Amino Transf (AST/SGOT) 20, Alanine Aminotransferase (ALT/SGPT) 16, Alkaline Phosphatase 110, Pro-B-Type Natriuretic Peptide 2922H, Total Protein 8.2, Albumin 2.9L, Globulin 5.3, Albumin/Globulin Ratio 0.5L Height (Feet): 5 Height (Inches): 9.00 Weight (Pounds): 154 General Appearance: no apparent distress, alert EENT: normal ENT inspection Neck: normal alignment, supple Cardiovascular: normal rate, regular rhythm Respiratory/Chest: rhonchi - bilaterally Abdomen: distended Edema: 1+ Arm (L), 1+ Arm (R), 1+ Leg (L), 1+ Leg (R), 1+ Pedal (L), 1+ Pedal ( R), 1+ Generalized Sherwin Hawkins MD May 09, 2018 08:16
--- NOTE | 2018-05-09 08:57 | Diagnostic Imaging Report ---
PORTABLE AP UPRIGHT CXR: HISTORY: 63-year-old male with dyspnea. COMPARISON: Portable CXRs 05/07/2018, 05/06/2018, 02/06/2018. FINDINGS: Compared to the prior exams, and allowing for differences in patient position/technique, there has been no definite significant interval change. No confluent lung consolidation is identified. No definite evidence of acute pulmonary edema. Cardiomegaly is grossly stable. Transvenous cardiac electrodes and right PICC are grossly stable. No obvious pneumothorax or effusion. IMPRESSION: No significant interval change.
--- NOTE | 2018-05-09 09:01 | Pulmonology Progress Note ---
Assessment/Plan Assessment/Plan ASSESSMENT severe cardiomyopathy with EF- 10% CHF exacerbation , systolic probably cardiogenic shock COPD/ emphysema severe pulmonary HTN cirrhosis ascites status post paracentesis -1.5 L hepatitis C, s/p Rx s/p AICD persistent atrial fibrillation hypothyroidism ARIS on CKD st 3 B ( per nephro) -probably cardiorenal PLAN OF CARE telemetry ECHO last done in January 2018, reviewed , EF <10% Dobutamine gtt- rate decreased per cardio previously on Lasix gtt , stopped due to worsening renal parameters, then on IV Lasix bid , was hold due to elev creat and restarted yesterday monitor volumes and cardiorenal parameters, pro BNP trending down O2 titrate to keep O2 sat above 92% HHN prn fup with CXR anti- failure regimen with Digoxin, BB , MARINA, Aldactone cardio follows close monitoring of hemodynamic status recent interrogation of AICD - normal fx on Xarelto for PAF, seem to be persistent recently s/p paracentesis 1.5 L ascitic fluid cx -, ruled out for SBP GI follows s/p Rx for hepatitis C in 2014, hepatitis panel in 2016 -negative s/p colonoscopy with one polyp in 06/26/2016 nephro follows close monitoring of renal parameters, lytes, correct as needed likely cardiorenal bowel regimen antiemetics prn GI prophylaxis pain management prn continue levothyroxine, check thyroid panel in 4 weeks case discussed and evaluated by supervising physician Subjective Allergies: Coded Allergies: HYDROMORPHONE (Verified Allergy, Unknown, 12/28/10) Subjective still on Dobutamine gtt, rate decreased Lasix restarted yesterday by nephro denies CP, SOB BP better creat 1.7 this am Objective Last 24 Hour Vital Signs Date Time Temp Pulse Resp B/P (MAP) Pulse Ox O2 Delivery O2 Flow Rate FiO2 05/09/18 08:00 97.6 72 21 119/78 (92) 100 05/09/18 04:00 97.3 73 18 104/67 (79) 98 05/09/18 04:00 Room Air 05/09/18 03:37 78 05/09/18 01:54 112/68 05/09/18 00:00 Room Air 05/09/18 00:00 97.7 78 18 104/67 (79) 98 05/08/18 23:34 81 05/08/18 20:00 Room Air 05/08/18 20:00 98.1 72 18 94/64 (74) 98 05/08/18 19:46 73 05/08/18 16:00 98.1 67 20 110/79 (89) 100 05/08/18 16:00 Room Air 05/08/18 15:40 102/77 05/08/18 15:28 75 05/08/18 12:39 102/77 05/08/18 12:00 98.1 69 20 102/77 (85) 100 05/08/18 12:00 Room Air 05/08/18 11:45 70 Intake and Output 05/08/18 05/09/18 19:00 07:00 Intake Total 912.716 ml 484.8 ml Output Total 900 ml 200 ml Balance 12.716 ml 284.8 ml Intake Oral 700 ml 300 ml IV Total 212.716 ml 184.8 ml Output Urine Total 900 ml 200 ml Objective General Appearance: no acute distress, A/A/O x 4 AA male HEENT: normocephalic, atraumatic, anicteric, mucous membranes moist Respiratory/Chest: lungs clear, no accessory muscle use, left chest AICD, BS decreased at bases Cardiovascular: normal rate - V pacing A fib with occasional PVC, RUE PICC intact Abdomen: normal bowel sounds, soft, non tender, non distended Extremities: pedal pulses normal, +1 pitting edema Neurologic/Psychiatric: alert Musculoskeletal: normal muscle bulk Laboratory Tests 05/09/18 04:00: White Blood Count 3.8L, Red Blood Count 3.89L, Hemoglobin 10.9L, Hematocrit 32.9L, Mean Corpuscular Volume 85, Mean Corpuscular Hemoglobin 27.9, Mean Corpuscular Hemoglobin Concent 33.0, Red Cell Distribution Width 20.9H, Platelet Count 213, Mean Platelet Volume 6.0L, Neutrophils (%) (Auto) 66.9, Lymphocytes (%) (Auto) 20.2, Monocytes (%) (Auto) 9.7, Eosinophils (%) (Auto) 1.9, Basophils (%) (Auto) 1.3, Sodium Level 132L, Potassium Level 5.0, Chloride Level 99, Carbon Dioxide Level 29, Anion Gap 4L, Blood Urea Nitrogen 37H, Creatinine 1.7H, Estimat Glomerular Filtration Rate 49.4, Glucose Level 103, Calcium Level 9.0, Total Bilirubin 0.8, Aspartate Amino Transf (AST/SGOT) 20, Alanine Aminotransferase (ALT/SGPT) 16, Alkaline Phosphatase 110, Pro-B-Type Natriuretic Peptide 2922H, Total Protein 8.2, Albumin 2.9L, Globulin 5.3, Albumin/Globulin Ratio 0.5L Current Medications Medications (Trade) Dose Ordered Sig/Allyn Route PRN Reason Start Time Stop Time Status Last Admin Dose Admin Acetaminophen (Tylenol) 650 mg Q4H PRN ORAL fever 05/03/18 19:00 06/02/18 18:59 Carvedilol (Coreg) 3.125 mg DAILY ORAL 05/04/18 09:00 06/03/18 08:59 05/07/18 09:37 Chlorhexidine Gluconate (Kalani-Hex 2%) 1 applic DAILY@2000 TOPIC 05/04/18 20:00 06/03/18 19:59 05/08/18 20:03 Dextrose (Dextrose 50%) 25 ml Q30M PRN IV Hypoglycemia 05/06/18 10:15 06/05/18 10:10 Dextrose (Dextrose 50%) 50 ml Q30M PRN IV hypoglycemia 05/06/18 10:15 06/05/18 10:14 Digoxin (Lanoxin) 0.125 mg DAILY ORAL 05/04/18 09:00 06/03/18 08:59 05/08/18 08:46 Dobutamine HCl 250 ml @ 16.8 mls/hr [id number] IV 05/08/18 15:37 06/03/18 15:36 05/09/18 01:54 Furosemide (Lasix) 40 mg EVERY 12 HOURS ORAL 05/09/18 09:00 06/08/18 08:59 Gabapentin (Neurontin) 100 mg DAILY ORAL 05/04/18 09:00 06/03/18 08:59 05/08/18 08:46 Levothyroxine Sodium (Synthroid) 125 mcg BEFORE BREAKFAST ORAL 05/04/18 06:30 06/03/18 06:29 05/09/18 05:59 Lorazepam (Ativan 2mg/ml 1ml) 0.5 mg Q4H PRN IV For Anxiety 05/03/18 19:00 11/25/18 18:59 Ondansetron HCl (Zofran) 4 mg Q6H PRN IVP Nausea & Vomiting 05/03/18 19:00 06/02/18 18:59 05/05/18 17:41 Oxycodone HCl (Roxicodone) 15 mg Q6H PRN ORAL for moderate pain 05/03/18 19:00 05/10/18 18:59 05/08/18 20:04 Polyethylene Glycol (Miralax) 17 gm HSPRN PRN ORAL Constipation 05/03/18 19:00 06/02/18 18:59 Rivaroxaban (Xarelto) 15 mg QPM ORAL 05/06/18 16:30 06/05/18 16:29 05/08/18 16:29 Spironolactone (Aldactone) 25 mg DAILY ORAL 05/04/18 09:00 06/03/18 08:59 05/08/18 08:45 Zolpidem Tartrate (Ambien) 5 mg HSPRN PRN ORAL Insomnia 05/03/18 19:00 05/10/18 18:59 05/08/18 20:03 Aarti Bryant OCCUPATIONAL THERAPY SPECIALIST May 09, 2018 09:01
[2018-05-09] MEDS: Furosemide 40mg tab ORAL SCH ×3 (09:09→21:17)
[2018-05-09] MEDS: Spironolactone 50mg tab ORAL SCH (09:09)
[2018-05-09] MEDS: Digoxin 0.125mg tab ORAL SCH (09:09)
[2018-05-09 12:00] VITALS: BP 111/74
--- NOTE | 2018-05-09 14:29 | Cardiac Electrophysiology PN ---
Assessment/Plan Assessment/Plan 1. Exacerbation of congestive heart failure with EF only 10%. Decrease dobutamine to 2 mcg/minute. Continue Aldactone and lisinopril. Lasix held by Dr Alberto 2. Status post [employer] defibrillator implantation with upgrade to Bi-V ICD. Interrogation recently showed normal LV function. 3. Hepatitis and ascites. s/p 1.5 liter paracentesis 4. Persistent atrial fibrillation, status post ablation on Xarelto 5. Hypothyroidism on Synthroid. EDMAR RN Subjective Subjective Feeling better.Daughter at bedside. On Dobutamine 4 mcg/kg/min and Lasix Objective Last 24 Hour Vital Signs Date Time Temp Pulse Resp B/P (MAP) Pulse Ox O2 Delivery O2 Flow Rate FiO2 05/09/18 12:00 Room Air 05/09/18 12:00 97.9 77 20 111/74 (86) 100 05/09/18 11:48 72 05/09/18 09:09 72 05/09/18 09:09 72 119/78 05/09/18 08:00 97.6 72 21 119/78 (92) 100 05/09/18 08:00 Room Air 05/09/18 07:53 80 05/09/18 04:00 97.3 73 18 104/67 (79) 98 05/09/18 04:00 Room Air 05/09/18 03:37 78 05/09/18 01:54 112/68 05/09/18 00:00 Room Air 05/09/18 00:00 97.7 78 18 104/67 (79) 98 05/08/18 23:34 81 05/08/18 20:00 Room Air 05/08/18 20:00 98.1 72 18 94/64 (74) 98 05/08/18 19:46 73 05/08/18 16:00 98.1 67 20 110/79 (89) 100 05/08/18 16:00 Room Air 05/08/18 15:40 102/77 05/08/18 15:28 75 Intake and Output 05/08/18 05/09/18 19:00 07:00 Intake Total 912.716 ml 484.8 ml Output Total 900 ml 200 ml Balance 12.716 ml 284.8 ml Intake Oral 700 ml 300 ml IV Total 212.716 ml 184.8 ml Output Urine Total 900 ml 200 ml Laboratory Tests Test 05/09/18 04:00 White Blood Count 3.8 K/UL (4.8-10.8) L Red Blood Count 3.89 M/UL (4.70-6.10) L Hemoglobin 10.9 G/DL (14.2-18.0) L Hematocrit 32.9 % (42.0-52.0) L Mean Corpuscular Volume 85 FL (80-99) Mean Corpuscular Hemoglobin 27.9 PG (27.0-31.0) Mean Corpuscular Hemoglobin Concent 33.0 G/DL (32.0-36.0) Red Cell Distribution Width 20.9 % (11.6-14.8) H Platelet Count 213 K/UL (150-450) Mean Platelet Volume 6.0 FL (6.5-10.1) L Neutrophils (%) (Auto) 66.9 % (45.0-75.0) Lymphocytes (%) (Auto) 20.2 % (20.0-45.0) Monocytes (%) (Auto) 9.7 % (1.0-10.0) Eosinophils (%) (Auto) 1.9 % (0.0-3.0) Basophils (%) (Auto) 1.3 % (0.0-2.0) Sodium Level 132 MMOL/L (136-145) L Potassium Level 5.0 MMOL/L (3.5-5.1) Chloride Level 99 MMOL/L (98-107) Carbon Dioxide Level 29 MMOL/L (21-32) Anion Gap 4 mmol/L (5-15) L Blood Urea Nitrogen 37 mg/dL (7-18) H Creatinine 1.7 MG/DL (0.55-1.30) H Estimat Glomerular Filtration Rate 49.4 mL/min (>60) Glucose Level 103 MG/DL (74-106) Calcium Level 9.0 MG/DL (8.5-10.1) Total Bilirubin 0.8 MG/DL (0.2-1.0) Aspartate Amino Transf (AST/SGOT) 20 U/L (15-37) Alanine Aminotransferase (ALT/SGPT) 16 U/L (12-78) Alkaline Phosphatase 110 U/L (46-116) Pro-B-Type Natriuretic Peptide 2922 pg/mL (0-125) H Total Protein 8.2 G/DL (6.4-8.2) Albumin 2.9 G/DL (3.4-5.0) L Globulin 5.3 g/dL Albumin/Globulin Ratio 0.5 (1.0-2.7) L Objective HEAD AND NECK: Positive jugular venous distention. LUNGS: Decreased breath sounds with basilar rales. CARDIOVASCULAR: Regular S1 and S2 with no gallop or murmur. Defibrillator in left subclavian. ABDOMEN: Ascites. EXTREMITIES: 1+ pitting edema. Rc Zhang MD May 09, 2018 14:29
[2018-05-09] MEDS: oxyCODONE 15mg IR tab ORAL PRN ×2 (14:47→21:19)
[2018-05-09 16:00] VITALS: BP 121/71
--- NOTE | 2018-05-09 16:26 | General Progress Note ---
Assessment/Plan Problem List: (1) CHF (congestive heart failure) ICD Codes: I50.9 - Heart failure, unspecified SNOMED: 23408677 (2) Edema ICD Codes: R60.9 - Edema, unspecified SNOMED: 595242917, 503524902 (3) Anemia ICD Codes: D64.9 - Anemia, unspecified SNOMED: 708528266 (4) Renal failure ICD Codes: N19 - Unspecified kidney failure SNOMED: 70734675 (5) Acute respiratory failure ICD Codes: J96.00 - Acute respiratory failure SNOMED: 71239645 (6) Ascites ICD Codes: R18.8 - Ascites SNOMED: 144635358 (7) Right-sided heart failure ICD Codes: I50.9 - Right-sided heart failure SNOMED: 671743806 (8) Abdominal pain ICD Codes: R10.9 - Abdominal pain SNOMED: 68069168 (9) Cardiomyopathy due to hypertension, with heart failure ICD Codes: I11.0 - Cardiomyopathy due to hypertension, with heart failure; I42.9 - Cardiomyopathy, unspecified SNOMED: 35078055 (10) Cirrhosis ICD Codes: K74.60 - Unspecified cirrhosis of liver SNOMED: 54724547 (11) Hypothyroidism ICD Codes: E03.9 - Hypothyroidism SNOMED: 71999535 (12) Acute renal failure (ARF) ICD Codes: N17.9 - Acute kidney failure, unspecified SNOMED: 29445183 (13) ICD (implantable cardioverter-defibrillator) in place ICD Codes: Z95.810 - Presence of automatic (implantable) cardiac defibrillator SNOMED: 724540610, 169705223 (14) EF < 10% (15) ACS (acute coronary syndrome) ICD Codes: I24.9 - Acute coronary syndrome SNOMED: 592535269 (16) Emphysema lung ICD Codes: J43.9 - Emphysema lung SNOMED: 47629741 (17) Hepatitis C ICD Codes: B19.20 - Hepatitis C SNOMED: 60076824 Status: progressing Assessment/Plan azotemia acs arrythmia chronic pain poor prognosis cirrhosis resp insuff Subjective ROS Limited/Unobtainable: Yes Allergies: Coded Allergies: HYDROMORPHONE (Verified Allergy, Unknown, 12/28/10) Objective Last 24 Hour Vital Signs Date Time Temp Pulse Resp B/P (MAP) Pulse Ox O2 Delivery O2 Flow Rate FiO2 05/09/18 16:00 Room Air 05/09/18 16:00 97.9 70 21 121/71 (88) 98 05/09/18 12:00 Room Air 05/09/18 12:00 97.9 77 20 111/74 (86) 100 05/09/18 11:48 72 05/09/18 09:09 72 05/09/18 09:09 72 119/78 05/09/18 08:00 97.6 72 21 119/78 (92) 100 05/09/18 08:00 Room Air 05/09/18 07:53 80 05/09/18 04:00 97.3 73 18 104/67 (79) 98 05/09/18 04:00 Room Air 05/09/18 03:37 78 05/09/18 01:54 112/68 05/09/18 00:00 Room Air 05/09/18 00:00 97.7 78 18 104/67 (79) 98 05/08/18 23:34 81 05/08/18 20:00 Room Air 05/08/18 20:00 98.1 72 18 94/64 (74) 98 05/08/18 19:46 73 Intake and Output 05/08/18 05/09/18 19:00 07:00 Intake Total 912.716 ml 484.8 ml Output Total 900 ml 200 ml Balance 12.716 ml 284.8 ml Intake Oral 700 ml 300 ml IV Total 212.716 ml 184.8 ml Output Urine Total 900 ml 200 ml Laboratory Tests 05/09/18 04:00: White Blood Count 3.8L, Red Blood Count 3.89L, Hemoglobin 10.9L, Hematocrit 32.9L, Mean Corpuscular Volume 85, Mean Corpuscular Hemoglobin 27.9, Mean Corpuscular Hemoglobin Concent 33.0, Red Cell Distribution Width 20.9H, Platelet Count 213, Mean Platelet Volume 6.0L, Neutrophils (%) (Auto) 66.9, Lymphocytes (%) (Auto) 20.2, Monocytes (%) (Auto) 9.7, Eosinophils (%) (Auto) 1.9, Basophils (%) (Auto) 1.3, Sodium Level 132L, Potassium Level 5.0, Chloride Level 99, Carbon Dioxide Level 29, Anion Gap 4L, Blood Urea Nitrogen 37H, Creatinine 1.7H, Estimat Glomerular Filtration Rate 49.4, Glucose Level 103, Calcium Level 9.0, Total Bilirubin 0.8, Aspartate Amino Transf (AST/SGOT) 20, Alanine Aminotransferase (ALT/SGPT) 16, Alkaline Phosphatase 110, Pro-B-Type Natriuretic Peptide 2922H, Total Protein 8.2, Albumin 2.9L, Globulin 5.3, Albumin/Globulin Ratio 0.5L Height (Feet): 5 Height (Inches): 9.00 Weight (Pounds): 154 General Appearance: confused Respiratory/Chest: lungs clear Winston Jin MD May 09, 2018 16:26
[2018-05-09] MEDS: Xarelto 15mg tab ORAL SCH (16:32)
[2018-05-09 20:00] VITALS: BP 101/70
[2018-05-09] MEDS: Dyna-Hex 2% Top Sol 2oz TOPIC SCH (20:17)
[2018-05-09] MEDS: Zolpidem 5mg tab ORAL PRN (21:17)
[2018-05-10] VITALS: BP 104/60
[2018-05-10 04:00] VITALS: BP 116/76
[2018-05-10] MEDS: Levothyroxine 125mcg tab ORAL SCH (06:24)
[2018-05-10 08:00] VITALS: BP 107/75
--- NOTE | 2018-05-10 08:07 | Pulmonology Progress Note ---
Assessment/Plan Assessment/Plan ASSESSMENT severe cardiomyopathy with EF- 10% CHF exacerbation , systolic probably cardiogenic shock-resolving COPD/emphysema severe pulmonary HTN cirrhosis ascites status post paracentesis -1.5 L hepatitis C, s/p Rx s/p AICD persistent atrial fibrillation hypothyroidism ARIS on CKD st 3 B ( per nephro) -probably cardiorenal PLAN OF CARE telemetry ECHO last done in January 2018, reviewed , EF <10% Dobutamine gtt- rate decreased per cardio previously on Lasix gtt , stopepd due to worsening renal parameters, then on IV Lasix bid , was hold due to elev creat and restarted yesterday monitor volumes and cardiorenal parameters, pro BNP trending down O2 titrate to keep O2 sat above 92% HHN prn fup with CXR anti- failure regimen with Digoxin, BB , MARINA, Aldactone cardio follows close monitoring of hemodynamic status recent interrogation of AICD - normal fx on Xarelto for PAF, seem to be persistent recently s/p paracentesis 1.5 L ascitic fluid cx -, ruled out for SBP GI follows s/p Rx for hepatitis C in 2014, hepatitis panel in 2016 -negative s/p colonoscopy with one polyp in 06/26/2016 nephro follows close monitoring of renal parameters, lytes, correct as needed likely cardiorenal bowel regimen antiemetics prn GI prophylaxis pain management prn continue levothyroxine, check thyroid panel in 4 weeks case discussed and evaluated by supervising physician Subjective Allergies: Coded Allergies: HYDROMORPHONE (Verified Allergy, Unknown, 12/28/10) Subjective still on Dobutamine gtt, rate decreased prior Lasix restarted by nephro denies CP, SOB BP better last creta 1.7 Objective Last 24 Hour Vital Signs Date Time Temp Pulse Resp B/P (MAP) Pulse Ox O2 Delivery O2 Flow Rate FiO2 05/10/18 04:00 84 05/10/18 04:00 Room Air 05/10/18 04:00 98.4 72 18 116/76 (89) 100 05/10/18 00:00 Room Air 05/10/18 00:00 70 05/10/18 00:00 98.7 74 18 104/60 (75) 97 05/09/18 20:00 Room Air 05/09/18 20:00 98.6 72 18 101/70 (80) 98 05/09/18 20:00 82 05/09/18 17:47 121/71 05/09/18 16:00 Room Air 05/09/18 16:00 97.9 70 21 121/71 (88) 98 05/09/18 15:38 74 05/09/18 12:00 Room Air 05/09/18 12:00 97.9 77 20 111/74 (86) 100 05/09/18 11:48 72 05/09/18 09:09 72 05/09/18 09:09 72 119/78 Intake and Output 05/09/18 05/10/18 19:00 07:00 Intake Total 845.8 ml 201.6 ml Output Total 800 ml 450 ml Balance 45.8 ml -248.4 ml Intake Oral 650 ml IV Total 195.8 ml 201.6 ml Output Urine Total 800 ml 450 ml Objective General Appearance: no acute distress, A/A/O x 4 AA male HEENT: normocephalic, atraumatic, anicteric, mucous membranes moist Respiratory/Chest: lungs clear, no accessory muscle use, left chest AICD, BS decreased at bases Cardiovascular: normal rate - V pacing A fib with occasional PVC, RUE PICC intact Abdomen: normal bowel sounds, soft, non tender, non distended Extremities: pedal pulses normal, +1 pitting edema Neurologic/Psychiatric: alert Musculoskeletal: normal muscle bulk Current Medications Medications (Trade) Dose Ordered Sig/Allyn Route PRN Reason Start Time Stop Time Status Last Admin Dose Admin Acetaminophen (Tylenol) 650 mg Q4H PRN ORAL fever 05/03/18 19:00 06/02/18 18:59 Carvedilol (Coreg) 3.125 mg DAILY ORAL 05/04/18 09:00 06/03/18 08:59 05/09/18 09:09 Chlorhexidine Gluconate (Kalani-Hex 2%) 1 applic DAILY@1999 TOPIC 05/04/18 20:00 06/03/18 19:59 05/09/18 20:17 Dextrose (Dextrose 50%) 25 ml Q30M PRN IV Hypoglycemia 05/06/18 10:15 06/05/18 10:10 Dextrose (Dextrose 50%) 50 ml Q30M PRN IV hypoglycemia 05/06/18 10:15 06/05/18 10:14 Digoxin (Lanoxin) 0.125 mg DAILY ORAL 05/04/18 09:00 06/03/18 08:59 05/09/18 09:09 Dobutamine HCl 250 ml @ 16.8 mls/hr Q10T51Q IV 05/09/18 17:43 06/08/18 17:42 05/09/18 17:47 Furosemide (Lasix) 40 mg EVERY 12 HOURS ORAL 05/09/18 09:00 06/08/18 08:59 05/09/18 09:09 Gabapentin (Neurontin) 100 mg DAILY ORAL 05/04/18 09:00 06/03/18 08:59 05/09/18 09:09 Levothyroxine Sodium (Synthroid) 125 mcg BEFORE BREAKFAST ORAL 05/04/18 06:30 06/03/18 06:29 05/10/18 06:24 Lorazepam (Ativan 2mg/ml 1ml) 0.5 mg Q4H PRN IV For Anxiety 05/03/18 19:00 05/10/18 18:59 Ondansetron HCl (Zofran) 4 mg Q6H PRN IVP Nausea & Vomiting 05/03/18 19:00 06/02/18 18:59 05/05/18 17:41 Oxycodone HCl (Roxicodone) 15 mg Q6H PRN ORAL for moderate pain 05/03/18 19:00 05/10/18 18:59 05/09/18 21:19 Polyethylene Glycol (Miralax) 17 gm HSPRN PRN ORAL Constipation 05/03/18 19:00 06/02/18 18:59 Rivaroxaban (Xarelto) 15 mg QPM ORAL 05/06/18 16:30 06/05/18 16:29 05/09/18 16:32 Spironolactone (Aldactone) 25 mg DAILY ORAL 05/04/18 09:00 06/03/18 08:59 05/09/18 09:09 Zolpidem Tartrate (Ambien) 5 mg HSPRN PRN ORAL Insomnia 05/03/18 19:00 05/10/18 18:59 05/09/18 21:17 Aarti Bryant COMMERCIAL ASSISTANT May 10, 2018 08:07
[2018-05-10] MEDS: Spironolactone 50mg tab ORAL SCH (08:28)
[2018-05-10] MEDS: Furosemide 40mg tab ORAL SCH ×2 (08:29→21:00)
[2018-05-10] MEDS: Digoxin 0.125mg tab ORAL SCH (08:29)
[2018-05-10] MEDS: DOBUTamine 250mg/250ml Premix 250 ML IV SCH (08:30)
--- NOTE | 2018-05-10 09:05 | Nephrology Progress Note ---
Assessment/Plan Assessment/Plan A/P 1. ARIS on CKD 3B- Cr 1.7. AM labs still pending - cardiorenal. Monitor on dobutamine and po lasix 2. Severe CMP- on dobutamine gtt and po lasix - 1250 ml UOP 3. ESLD- ascites - s/p paracentesis 4. SOB- resolved Monitor Cr as patient on lasix/aldactone. Lisinopril has been stopped. BP stable Subjective Date patient seen: May 10, 2018 Time patient seen: 09:02 ROS Limited/Unobtainable: No Allergies: Coded Allergies: HYDROMORPHONE (Verified Allergy, Unknown, 12/28/10) Subjective Patient resting well. In no distress breathing Objective Last 24 Hour Vital Signs Date Time Temp Pulse Resp B/P (MAP) Pulse Ox O2 Delivery O2 Flow Rate FiO2 05/10/18 08:30 107/75 05/10/18 08:29 72 05/10/18 08:29 72 107/75 05/10/18 08:00 98.5 72 21 107/75 (86) 97 05/10/18 08:00 Room Air 05/10/18 04:00 84 05/10/18 04:00 Room Air 05/10/18 04:00 98.4 72 18 116/76 (89) 100 05/10/18 00:00 Room Air 05/10/18 00:00 70 05/10/18 00:00 98.7 74 18 104/60 (75) 97 05/09/18 20:00 Room Air 05/09/18 20:00 98.6 72 18 101/70 (80) 98 05/09/18 20:00 82 05/09/18 17:47 121/71 05/09/18 16:00 Room Air 05/09/18 16:00 97.9 70 21 121/71 (88) 98 05/09/18 15:38 74 05/09/18 12:00 Room Air 05/09/18 12:00 97.9 77 20 111/74 (86) 100 05/09/18 11:48 72 05/09/18 09:09 72 05/09/18 09:09 72 119/78 Intake and Output 05/09/18 05/10/18 19:00 07:00 Intake Total 845.8 ml 201.6 ml Output Total 800 ml 450 ml Balance 45.8 ml -248.4 ml Intake Oral 650 ml IV Total 195.8 ml 201.6 ml Output Urine Total 800 ml 450 ml Height (Feet): 5 Height (Inches): 9.00 Weight (Pounds): 154 General Appearance: no apparent distress EENT: normal ENT inspection Neck: normal alignment Cardiovascular: normal rate, regular rhythm Respiratory/Chest: lungs clear, normal breath sounds Abdomen: distended Edema: 1+ Arm (L), 1+ Arm (R), 1+ Leg (L), 1+ Leg (R), 1+ Pedal (L), 1+ Pedal ( R), 1+ Generalized Sherwin Hawkins MD May 10, 2018 09:05
[2018-05-10] MEDS ORDERED: NS 275ml ONE (10:23)
[2018-05-10 12:00] VITALS: BP 100/73
[2018-05-10] MEDS: oxyCODONE 15mg IR tab ORAL PRN (12:46)
[2018-05-10] MEDS ORDERED: DOBUTamine 250mg/250ml Premix 250 ML IV SCH (14:30)
--- NOTE | 2018-05-10 14:33 | Cardiac Electrophysiology PN ---
Assessment/Plan Assessment/Plan 1. Exacerbation of congestive heart failure with EF only 10%. Decrease dobutamine to 2 mcg/minute. Continue Aldactone,Lasix and lisinopril. 2. Status post [employer] defibrillator implantation with upgrade to Bi-V ICD. Interrogation recently showed normal LV function. 3. Hepatitis and ascites. s/p 1.5 liter paracentesis 4. Persistent atrial fibrillation, status post ablation on Xarelto 5. Hypothyroidism on Synthroid. EDMAR RN Subjective Subjective Feeling better. On Dobutamine and po Lasix Objective Last 24 Hour Vital Signs Date Time Temp Pulse Resp B/P (MAP) Pulse Ox O2 Delivery O2 Flow Rate FiO2 05/10/18 14:30 100/73 05/10/18 12:00 Room Air 05/10/18 12:00 78 05/10/18 12:00 98.4 70 22 100/73 (82) 96 05/10/18 08:30 107/75 05/10/18 08:29 72 05/10/18 08:29 72 107/75 05/10/18 08:00 98.5 72 21 107/75 (86) 97 05/10/18 08:00 73 05/10/18 08:00 Room Air 05/10/18 04:00 84 05/10/18 04:00 Room Air 05/10/18 04:00 98.4 72 18 116/76 (89) 100 05/10/18 00:00 Room Air 05/10/18 00:00 70 05/10/18 00:00 98.7 74 18 104/60 (75) 97 05/09/18 20:00 Room Air 05/09/18 20:00 98.6 72 18 101/70 (80) 98 05/09/18 20:00 82 05/09/18 17:47 121/71 05/09/18 16:00 Room Air 05/09/18 16:00 97.9 70 21 121/71 (88) 98 05/09/18 15:38 74 Intake and Output 05/09/18 05/10/18 19:00 07:00 Intake Total 845.8 ml 201.6 ml Output Total 800 ml 450 ml Balance 45.8 ml -248.4 ml Intake Oral 650 ml IV Total 195.8 ml 201.6 ml Output Urine Total 800 ml 450 ml Objective HEAD AND NECK: Positive jugular venous distention. LUNGS: Decreased breath sounds with basilar rales. CARDIOVASCULAR: Regular S1 and S2 with no gallop or murmur. Defibrillator in left subclavian. ABDOMEN: Ascites. EXTREMITIES: 1+ pitting edema. Rc Zhang MD May 10, 2018 14:33
[2018-05-10 16:00] VITALS: BP 114/67
[2018-05-10] MEDS: Xarelto 15mg tab ORAL SCH (16:19)
[2018-05-10 20:00] VITALS: BP 112/74
[2018-05-10] MEDS: Dyna-Hex 2% Top Sol 2oz TOPIC SCH (20:11)
[2018-05-10] MEDS ORDERED: oxyCODONE 15mg IR tab ORAL PRN (21:15)
[2018-05-10] MEDS ORDERED: Zolpidem 5mg tab ORAL PRN (21:15)
[2018-05-11] VITALS: BP 119/55
[2018-05-11 04:00] VITALS: BP 102/73
[2018-05-11] MEDS: Levothyroxine 125mcg tab ORAL SCH (06:05)
[2018-05-11 08:00] VITALS: BP 100/63
--- NOTE | 2018-05-11 08:15 | Nephrology Progress Note ---
Assessment/Plan Assessment/Plan A/P 1. CKD 3B- Cr 1.7. AM labs pending - cardiorenal. Dobutamine gtt and po lasix 2. Severe CMP- on dobutamine gtt and po lasix 3. ESLD- ascites - s/p paracentesis 4. SOB- resolved Subjective Date patient seen: May 11, 2018 Time patient seen: 08:13 ROS Limited/Unobtainable: No Constitutional: Reports: weakness Allergies: Coded Allergies: HYDROMORPHONE (Verified Allergy, Unknown, 12/28/10) Subjective Patient resting well. Breathing well and no CP Objective Last 24 Hour Vital Signs Date Time Temp Pulse Resp B/P (MAP) Pulse Ox O2 Delivery O2 Flow Rate FiO2 05/11/18 04:00 97.6 73 20 102/73 (83) 98 05/11/18 04:00 Room Air 05/11/18 04:00 74 05/11/18 00:00 Room Air 05/11/18 00:00 89 05/11/18 00:00 98.3 72 18 119/55 (76) 98 05/10/18 20:00 72 05/10/18 20:00 97.5 74 20 112/74 (87) 97 05/10/18 20:00 Room Air 05/10/18 16:00 98.4 71 21 114/67 (83) 97 05/10/18 16:00 Room Air 05/10/18 15:55 72 05/10/18 14:30 100/73 05/10/18 12:00 Room Air 05/10/18 12:00 78 05/10/18 12:00 98.4 70 22 100/73 (82) 96 05/10/18 08:30 107/75 05/10/18 08:29 72 05/10/18 08:29 72 107/75 Intake and Output 05/10/18 05/11/18 19:00 07:00 Intake Total 684.4 ml 460.8 ml Output Total 800 ml 800 ml Balance -115.6 ml -339.2 ml Intake Oral 550 ml 360 ml IV Total 134.4 ml 100.8 ml Output Urine Total 800 ml 800 ml # Bowel Movements 3 Height (Feet): 5 Height (Inches): 9.00 Weight (Pounds): 153 General Appearance: no apparent distress, alert EENT: normal ENT inspection Neck: normal alignment, supple Cardiovascular: normal rate, regular rhythm Respiratory/Chest: lungs clear Abdomen: distended Edema: no edema noted Arm (L), no edema noted Arm (R), no edema noted Leg (L), no edema noted Leg (R), no edema noted Pedal (L), no edema noted Pedal (R), no edema noted Generalized Sherwin Hawkins MD May 11, 2018 08:15
[2018-05-11] MEDS: Digoxin 0.125mg tab ORAL SCH (09:01)
[2018-05-11] MEDS: Furosemide 40mg tab ORAL SCH (09:01)
[2018-05-11] MEDS: Spironolactone 50mg tab ORAL SCH (09:02)
[2018-05-11 09:48] LABS: BASOPHILS % (AUTO) 2.1 % (0.0-2.0); HEMATOCRIT 32.3 % (42.0-52.0); MEAN CORPUSCULAR VOLUME 84 FL (80-99); MONOCYTES % (AUTO) 13.7 % (1.0-10.0); NEUTROPHILS % (AUTO) 67.2 % (45.0-75.0); PLATELET COUNT 194 K/UL (150-450); RED BLOOD COUNT 3.83 M/UL (4.70-6.10); RED CELL DISTRIBUTION WIDTH 20.8 % (11.6-14.8); WHITE BLOOD COUNT 4.1 K/UL (4.8-10.8)
[2018-05-11 10:10] LABS: ANION GAP 9 mmol/L (5-15); BLOOD UREA NITROGEN 38 mg/dL (7-18); CALCIUM 9.1 MG/DL (8.5-10.1); CARBON DIOXIDE 26 MMOL/L (21-32); CHLORIDE 99 MMOL/L (98-107); CREATININE 1.5 MG/DL (0.55-1.30); POTASSIUM 4.4 MMOL/L (3.5-5.1); SODIUM 134 MMOL/L (136-145)
--- NOTE | 2018-05-11 11:10 | GI Progress Note ---
Assessment/Plan Problems: (1) Hepatitis C ICD Codes: B19.20 - Hepatitis C SNOMED: 52357916 (2) EF < 10% (3) Abdominal pain ICD Codes: R10.9 - Abdominal pain SNOMED: 07863541 (4) Right-sided heart failure ICD Codes: I50.9 - Right-sided heart failure SNOMED: 519747941 (5) Ascites ICD Codes: R18.8 - Ascites SNOMED: 377325544 (6) CHF (congestive heart failure) ICD Codes: I50.9 - Heart failure, unspecified SNOMED: 03442667 Status: stable - d Status Narrative Discussed with Dr. Ryan. Assessment/Plan hx of Hep C in 2014 s/p tx >> hep panel redrawn in 2016 was negative s/p colonoscopy with one polyp 06/26/16 s/p paracentesis >> 1.5L yield >> SBP negative fu cardiology recs diuresis low sodium diet bowel regime zofran prn ppi pain mgmt fu labs repeat colonoscopy in 2021 The patient was seen and examined at bedside and all new and available data was reviewed in the patients chart. I agree with the above findings, impression and plan. (Patient seen earlier today. Signature stamp does not reflect patient encounter time.). - Beto Ryan MD Subjective Gastrointestinal/Abdominal: Reports: no symptoms Objective Last 24 Hour Vital Signs Date Time Temp Pulse Resp B/P (MAP) Pulse Ox O2 Delivery O2 Flow Rate FiO2 05/11/18 09:01 77 05/11/18 09:01 77 100/63 05/11/18 08:00 83 05/11/18 08:00 97.7 77 20 100/63 (75) 99 05/11/18 08:00 Room Air 05/11/18 04:00 97.6 73 20 102/73 (83) 98 05/11/18 04:00 Room Air 05/11/18 04:00 74 05/11/18 00:00 Room Air 05/11/18 00:00 89 05/11/18 00:00 98.3 72 18 119/55 (76) 98 05/10/18 20:00 72 05/10/18 20:00 97.5 74 20 112/74 (87) 97 05/10/18 20:00 Room Air 05/10/18 16:00 98.4 71 21 114/67 (83) 97 05/10/18 16:00 Room Air 05/10/18 15:55 72 05/10/18 14:30 100/73 05/10/18 12:00 Room Air 05/10/18 12:00 78 05/10/18 12:00 98.4 70 22 100/73 (82) 96 Intake and Output 05/10/18 05/11/18 19:00 07:00 Intake Total 684.4 ml 460.8 ml Output Total 800 ml 800 ml Balance -115.6 ml -339.2 ml Intake Oral 550 ml 360 ml IV Total 134.4 ml 100.8 ml Output Urine Total 800 ml 800 ml # Bowel Movements 3 Laboratory Tests Test 05/11/18 09:25 White Blood Count 4.1 K/UL (4.8-10.8) L Red Blood Count 3.83 M/UL (4.70-6.10) L Hemoglobin 10.0 G/DL (14.2-18.0) L Hematocrit 32.3 % (42.0-52.0) L Mean Corpuscular Volume 84 FL (80-99) Mean Corpuscular Hemoglobin 26.2 PG (27.0-31.0) L Mean Corpuscular Hemoglobin Concent 31.1 G/DL (32.0-36.0) L Red Cell Distribution Width 20.8 % (11.6-14.8) H Platelet Count 194 K/UL (150-450) Mean Platelet Volume 5.8 FL (6.5-10.1) L Neutrophils (%) (Auto) 67.2 % (45.0-75.0) Lymphocytes (%) (Auto) 15.0 % (20.0-45.0) L Monocytes (%) (Auto) 13.7 % (1.0-10.0) H Eosinophils (%) (Auto) 2.0 % (0.0-3.0) Basophils (%) (Auto) 2.1 % (0.0-2.0) H Sodium Level 134 MMOL/L (136-145) L Potassium Level 4.4 MMOL/L (3.5-5.1) Chloride Level 99 MMOL/L (98-107) Carbon Dioxide Level 26 MMOL/L (21-32) Anion Gap 9 mmol/L (5-15) Blood Urea Nitrogen 38 mg/dL (7-18) H Creatinine 1.5 MG/DL (0.55-1.30) H Estimat Glomerular Filtration Rate 57.0 mL/min (>60) Glucose Level 116 MG/DL (74-106) H Calcium Level 9.1 MG/DL (8.5-10.1) Height (Feet): 5 Height (Inches): 9.00 Weight (Pounds): 153 General Appearance: WD/WN, no apparent distress, alert Cardiovascular: normal rate Respiratory/Chest: normal breath sounds, no respiratory distress Abdominal Exam: normal bowel sounds, non tender, soft Extremities: normal range of motion, non-tender Kiarra Bird NP May 11, 2018 11:10
[2018-05-11] MEDS ORDERED: FUROSEMIDE40 MG ORAL (11:31)
--- NOTE | 2018-05-11 11:33 | Pulmonology Progress Note ---
Assessment/Plan Problems: (1) Cardiogenic shock (2) Ascites (3) EF < 10% (4) Emphysema lung (5) Hypothyroidism (6) Cirrhosis (7) Hepatitis C Assessment/Plan paracentesis is done, 1.5 liters drained on Dobutamin drip diuresed 14 liters so far dc morphine IV, check electrolytes in am check BNP in am continue Synthyroid Subjective ROS Limited/Unobtainable: No Constitutional: Reports: no symptoms HEENT: Repors: no symptoms Respiratory: Reports: no symptoms Allergies: Coded Allergies: HYDROMORPHONE (Verified Allergy, Unknown, 12/28/10) Objective Last 24 Hour Vital Signs Date Time Temp Pulse Resp B/P (MAP) Pulse Ox O2 Delivery O2 Flow Rate FiO2 05/11/18 09:01 77 05/11/18 09:01 77 100/63 05/11/18 08:00 83 05/11/18 08:00 97.7 77 20 100/63 (75) 99 05/11/18 08:00 Room Air 05/11/18 04:00 97.6 73 20 102/73 (83) 98 05/11/18 04:00 Room Air 05/11/18 04:00 74 05/11/18 00:00 Room Air 05/11/18 00:00 89 05/11/18 00:00 98.3 72 18 119/55 (76) 98 05/10/18 20:00 72 05/10/18 20:00 97.5 74 20 112/74 (87) 97 05/10/18 20:00 Room Air 05/10/18 16:00 98.4 71 21 114/67 (83) 97 05/10/18 16:00 Room Air 05/10/18 15:55 72 05/10/18 14:30 100/73 05/10/18 12:00 Room Air 05/10/18 12:00 78 05/10/18 12:00 98.4 70 22 100/73 (82) 96 Intake and Output 05/10/18 05/11/18 19:00 07:00 Intake Total 684.4 ml 460.8 ml Output Total 800 ml 800 ml Balance -115.6 ml -339.2 ml Intake Oral 550 ml 360 ml IV Total 134.4 ml 100.8 ml Output Urine Total 800 ml 800 ml # Bowel Movements 3 General Appearance: cachetic HEENT: normocephalic, atraumatic Respiratory/Chest: chest wall non-tender, lungs clear Cardiovascular: normal peripheral pulses, regular rhythm Abdomen: normal bowel sounds, soft, non tender Genitourinary: normal external genitalia Extremities: no cyanosis Neurologic/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: 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 normal Lymphatic: no neck adenopathy Laboratory Tests 05/11/18 09:25: White Blood Count 4.1L, Red Blood Count 3.83L, Hemoglobin 10.0L, Hematocrit 32.3L, Mean Corpuscular Volume 84, Mean Corpuscular Hemoglobin 26.2L, Mean Corpuscular Hemoglobin Concent 31.1L, Red Cell Distribution Width 20.8H, Platelet Count 194, Mean Platelet Volume 5.8L, Neutrophils (%) (Auto) 67.2, Lymphocytes (%) (Auto) 15.0L, Monocytes (%) (Auto) 13.7H, Eosinophils (%) (Auto ) 2.0, Basophils (%) (Auto) 2.1H, Sodium Level 134L, Potassium Level 4.4, Chloride Level 99, Carbon Dioxide Level 26, Anion Gap 9, Blood Urea Nitrogen 38H , Creatinine 1.5H, Estimat Glomerular Filtration Rate 57.0, Glucose Level 116H, Calcium Level 9.1 Current Medications Medications (Trade) Dose Ordered Sig/Allyn Route PRN Reason Start Time Stop Time Status Last Admin Dose Admin Acetaminophen (Tylenol) 650 mg Q4H PRN ORAL fever 05/03/18 19:00 06/02/18 18:59 Carvedilol (Coreg) 3.125 mg DAILY ORAL 05/04/18 09:00 06/03/18 08:59 05/11/18 09:01 Chlorhexidine Gluconate (Kalani-Hex 2%) 1 applic DAILY@1999 TOPIC 05/04/18 20:00 06/03/18 19:59 05/10/18 20:11 Dextrose (Dextrose 50%) 25 ml Q30M PRN IV Hypoglycemia 05/06/18 10:15 06/05/18 10:10 Dextrose (Dextrose 50%) 50 ml Q30M PRN IV hypoglycemia 05/06/18 10:15 06/05/18 10:14 Digoxin (Lanoxin) 0.125 mg DAILY ORAL 05/04/18 09:00 06/03/18 08:59 05/11/18 09:01 Dobutamine HCl 250 ml @ 8.4 mls/hr Q24H IV 05/10/18 14:30 06/09/18 14:29 05/10/18 14:30 Furosemide (Lasix) 40 mg EVERY 12 HOURS ORAL 05/09/18 09:00 06/08/18 08:59 05/11/18 09:01 Gabapentin (Neurontin) 100 mg DAILY ORAL 05/04/18 09:00 06/03/18 08:59 05/11/18 09:01 Levothyroxine Sodium (Synthroid) 125 mcg BEFORE BREAKFAST ORAL 05/04/18 06:30 06/03/18 06:29 05/11/18 06:05 Ondansetron HCl (Zofran) 4 mg Q6H PRN IVP Nausea & Vomiting 05/03/18 19:00 06/02/18 18:59 05/05/18 17:41 Oxycodone HCl (Roxicodone) 15 mg Q6HR PRN ORAL Moderate Pain (Pain Scale 4-6) 05/10/18 21:15 05/17/18 21:14 05/10/18 21:36 Polyethylene Glycol (Miralax) 17 gm HSPRN PRN ORAL Constipation 05/03/18 19:00 06/02/18 18:59 Rivaroxaban (Xarelto) 15 mg QPM ORAL 05/06/18 16:30 06/05/18 16:29 05/10/18 16:19 Spironolactone (Aldactone) 25 mg DAILY ORAL 05/04/18 09:00 06/03/18 08:59 05/11/18 09:02 Zolpidem Tartrate (Ambien) 5 mg HSPRN PRN ORAL Insomnia 05/10/18 21:15 05/17/18 21:14 05/10/18 21:36 Andrzej Chavarria MD May 11, 2018 11:33
[2018-05-11 12:00] VITALS: BP 97/58
--- NOTE | 2018-05-11 13:13 | General Progress Note ---
Assessment/Plan Problem List: (1) Anemia ICD Codes: D64.9 - Anemia, unspecified SNOMED: 564533912 (2) Renal failure ICD Codes: N19 - Unspecified kidney failure SNOMED: 08928769 (3) CHF (congestive heart failure) ICD Codes: I50.9 - Heart failure, unspecified SNOMED: 21033034 (4) Edema ICD Codes: R60.9 - Edema, unspecified SNOMED: 454925035, 567702795 (5) Ascites ICD Codes: R18.8 - Ascites SNOMED: 973883989 (6) Abdominal pain ICD Codes: R10.9 - Abdominal pain SNOMED: 76924681 (7) Cirrhosis ICD Codes: K74.60 - Unspecified cirrhosis of liver SNOMED: 43236317 (8) Hepatitis C ICD Codes: B19.20 - Hepatitis C SNOMED: 90548605 Status: stable, progressing Assessment/Plan ot pt diet diurese, cardio gi f/u dc w hh Subjective Constitutional: Reports: weakness Allergies: Coded Allergies: HYDROMORPHONE (Verified Allergy, Unknown, 12/28/10) All Systems: reviewed and negative except above Subjective calm sl weak Objective Last 24 Hour Vital Signs Date Time Temp Pulse Resp B/P (MAP) Pulse Ox O2 Delivery O2 Flow Rate FiO2 05/11/18 12:00 Room Air 05/11/18 09:01 77 05/11/18 09:01 77 100/63 05/11/18 08:00 83 05/11/18 08:00 97.7 77 20 100/63 (75) 99 05/11/18 08:00 Room Air 05/11/18 04:00 97.6 73 20 102/73 (83) 98 05/11/18 04:00 Room Air 05/11/18 04:00 74 05/11/18 00:00 Room Air 05/11/18 00:00 89 05/11/18 00:00 98.3 72 18 119/55 (76) 98 05/10/18 20:00 72 05/10/18 20:00 97.5 74 20 112/74 (87) 97 05/10/18 20:00 Room Air 05/10/18 16:00 98.4 71 21 114/67 (83) 97 05/10/18 16:00 Room Air 05/10/18 15:55 72 1125/18 14:30 100/73 Intake and Output 05/10/18 05/11/18 19:00 07:00 Intake Total 684.4 ml 460.8 ml Output Total 800 ml 800 ml Balance -115.6 ml -339.2 ml Intake Oral 550 ml 360 ml IV Total 134.4 ml 100.8 ml Output Urine Total 800 ml 800 ml # Bowel Movements 3 Laboratory Tests 05/11/18 09:25: White Blood Count 4.1L, Red Blood Count 3.83L, Hemoglobin 10.0L, Hematocrit 32.3L, Mean Corpuscular Volume 84, Mean Corpuscular Hemoglobin 26.2L, Mean Corpuscular Hemoglobin Concent 31.1L, Red Cell Distribution Width 20.8H, Platelet Count 194, Mean Platelet Volume 5.8L, Neutrophils (%) (Auto) 67.2, Lymphocytes (%) (Auto) 15.0L, Monocytes (%) (Auto) 13.7H, Eosinophils (%) (Auto ) 2.0, Basophils (%) (Auto) 2.1H, Sodium Level 134L, Potassium Level 4.4, Chloride Level 99, Carbon Dioxide Level 26, Anion Gap 9, Blood Urea Nitrogen 38H , Creatinine 1.5H, Estimat Glomerular Filtration Rate 57.0, Glucose Level 116H, Calcium Level 9.1 Height (Feet): 5 Height (Inches): 9.00 Weight (Pounds): 153 General Appearance: lethargic EENT: normal ENT inspection Neck: normal alignment Cardiovascular: normal peripheral pulses, normal rate, regular rhythm Respiratory/Chest: chest wall non-tender, lungs clear, normal breath sounds Abdomen: normal bowel sounds, non tender, soft Extremities: normal inspection Edema: no edema noted Arm (L), no edema noted Arm (R), no edema noted Leg (L), no edema noted Leg (R), no edema noted Pedal (L), no edema noted Pedal (R), no edema noted Generalized Neurologic: responsive, motor weakness Skin: normal pigmentation, warm/dry Shahid Cherry DO May 11, 2018 13:12
--- NOTE | 2018-05-11 14:10 | Cardiac Electrophysiology PN ---
Assessment/Plan Assessment/Plan 1. Exacerbation of congestive heart failure with EF only 10%. Taper off dobutamine . Continue Aldactone,Lasix and lisinopril. 2. Status post [employer] defibrillator implantation with upgrade to Bi-V ICD. Interrogation recently showed normal LV function. 3. Hepatitis and ascites. s/p 1.5 liter paracentesis 4. Persistent atrial fibrillation, status post ablation on Xarelto 5. Hypothyroidism on Synthroid. EDMAR RN Planning DC home off Dobutamine drip Subjective Subjective On Dobutamine 2mc/kg/min and po Lasix Objective Last 24 Hour Vital Signs Date Time Temp Pulse Resp B/P (MAP) Pulse Ox O2 Delivery O2 Flow Rate FiO2 05/11/18 12:00 Room Air 05/11/18 09:01 77 05/11/18 09:01 77 100/63 05/11/18 08:00 83 05/11/18 08:00 97.7 77 20 100/63 (75) 99 05/11/18 08:00 Room Air 05/11/18 04:00 97.6 73 20 102/73 (83) 98 05/11/18 04:00 Room Air 05/11/18 04:00 74 05/11/18 00:00 Room Air 05/11/18 00:00 89 05/11/18 00:00 98.3 72 18 119/55 (76) 98 05/10/18 20:00 72 05/10/18 20:00 97.5 74 20 112/74 (87) 97 05/10/18 20:00 Room Air 05/10/18 16:00 98.4 71 21 114/67 (83) 97 05/10/18 16:00 Room Air 05/10/18 15:55 72 05/10/18 14:30 100/73 Intake and Output 05/10/18 05/11/18 19:00 07:00 Intake Total 684.4 ml 460.8 ml Output Total 800 ml 800 ml Balance -115.6 ml -339.2 ml Intake Oral 550 ml 360 ml IV Total 134.4 ml 100.8 ml Output Urine Total 800 ml 800 ml # Bowel Movements 3 Laboratory Tests Test 05/11/18 09:25 White Blood Count 4.1 K/UL (4.8-10.8) L Red Blood Count 3.83 M/UL (4.70-6.10) L Hemoglobin 10.0 G/DL (14.2-18.0) L Hematocrit 32.3 % (42.0-52.0) L Mean Corpuscular Volume 84 FL (80-99) Mean Corpuscular Hemoglobin 26.2 PG (27.0-31.0) L Mean Corpuscular Hemoglobin Concent 31.1 G/DL (32.0-36.0) L Red Cell Distribution Width 20.8 % (11.6-14.8) H Platelet Count 194 K/UL (150-450) Mean Platelet Volume 5.8 FL (6.5-10.1) L Neutrophils (%) (Auto) 67.2 % (45.0-75.0) Lymphocytes (%) (Auto) 15.0 % (20.0-45.0) L Monocytes (%) (Auto) 13.7 % (1.0-10.0) H Eosinophils (%) (Auto) 2.0 % (0.0-3.0) Basophils (%) (Auto) 2.1 % (0.0-2.0) H Sodium Level 134 MMOL/L (136-145) L Potassium Level 4.4 MMOL/L (3.5-5.1) Chloride Level 99 MMOL/L (98-107) Carbon Dioxide Level 26 MMOL/L (21-32) Anion Gap 9 mmol/L (5-15) Blood Urea Nitrogen 38 mg/dL (7-18) H Creatinine 1.5 MG/DL (0.55-1.30) H Estimat Glomerular Filtration Rate 57.0 mL/min (>60) Glucose Level 116 MG/DL (74-106) H Calcium Level 9.1 MG/DL (8.5-10.1) Objective HEAD AND NECK: Positive jugular venous distention. LUNGS: Basilar rales. CARDIOVASCULAR: Regular S1 and S2 with no gallop or murmur. Defibrillator in left subclavian. ABDOMEN: Ascites. EXTREMITIES: 1+ pitting edema. Rc Zhang MD May 11, 2018 14:10
[2018-05-11 16:00] VITALS: BP 111/72
[2018-05-11] MEDS: Xarelto 15mg tab ORAL SCH (17:10)
--- NOTE | 2018-05-12 09:51 | Discharge Summary ---
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 Laboratory workup revealed no leukocytosis. BUN 24, creatinine 1.5. Stable electrolytes. Troponin 0.032. Pro BNP 71447. Albumin 2.2. Urine toxicology screen was positive for marijuana. EKG revealed atrial fibrillation with controlled ventricular rate. Chest x-ray showed no acute cardiopulmonary pathology , but demonstrated cardiomegaly and left chest AICD. Patient admitted with diagnoses of severe cardiomyopathy, probably cardiogenic shock , ascites, cirrhosis, hepatitis C , COPD /emphysema , hypothyroidism . CONSULTANTS: coke crusher operator Dr. Zhang pulmonary Dr. Chavarria GI specialist Dr. Ryan forge utility worker Dr.De Dunn [facility] COURSE: Patient need to direct observational unit. Patient started on Lasix and dobutamine drips. Blood pressure was closely monitored. Patient undergone paracentesis by interventional radiology , which yielded 1.5 L of ascitic fluid. Ascitic fluid culture was negative. Volumes , cardiorenal parameters and electrolytes were closely monitored. Rivet Thrower followed. Due to worsening renal parameters , Lasix drip was discontinued. Patient started on IV Lasix bid, which was later hold as well due to elevated creatinine and restarted later. Per forge utility worker, acute kidney injury on chronic kidney disease stage was probably cardiorenal. Pro BNP was trending down. Television Installer Helper followed. Supplemental oxygen titrated to keep pulse oximetry above 92%. Pulmonary toilet provided as needed. Venous duplex bilateral lower extremity was negative for acute DVT. Water Resources Business Segment Leader closely followed. Anti-failure regimen was continued with beta sina MARINA inhibitor, digoxin and Aldactone. Hemodynamic status was closely monitored. Dobutamine drip rate was decreased and eventually patient was able to be tapered off Dobutamine drip. Blood pressure remained stable. Patient recently had his AICD interrogated, which revealed normal functioning. Last echocardiogram was done in January 2018 and revealed severe global left ventricular hypokinesis with septal thickening. Septal and anterior wall akinesis. Left ventricular ejection fraction estimated to be less than 10%. Moderate to severe mitral and tricuspid regurgitation. Right ventricular systolic pressure of 79, consistent with severe pulmonary hypertension. Moderate pulmonic regurgitation Anticoagulation with Xarelto continued. Recently atrial fibrillation seem to be persistent rather than paroxysmal. Rate was controlled with beta sina. GI closely followed. As mentioned above , ascitic fluid culture was negative, and patient was subsequently ruled out for spontaneous bacterial peritonitis. Patient status post treatment for hepatitis C in 2014. Hepatitis panel in 2017 was negative. Patient undergone colonoscopy with 1 polyp removal in 06/26/2016. Bowel regimen instituted . Antiemetics provided as needed. GI prophylaxis provided . Pain management provided as needed , and pain was controlled . Patient was on levothyroxine , check thyroid function panel in one month. Patient was stable for discharge. FINAL DIAGNOSES: Severe cardiomyopathy with ejection fraction 10% Probably cardiogenic shock CHF exacerbation, systolic Status post AICD Persistent atrial fibrillation COPD/Emphysema severe pulmonary HTN Moderate to severe mitral and tricuspid regurgitation Acute kidney injury on chronic kidney disease stage IIIB, probably cardiorenal Cirrhosis Ascites Status post paracentesis -1.5 L Hepatitis C ,status post treatment Hypothyroidism DISCHARGE MEDICATIONS: See Medication Reconciliation list. DISCHARGE INSTRUCTIONS: Patient was discharged home Follow up with primary care provider in one week. Reinforced compliance with medication regimen. I have been assigned to dictate discharge summary for this account. I was not involved in the patient's management. Aarti Bryant NP May 12, 2018 09:51
== END 2018-05-11 17:15 | disposition home health service (06) | DRG 291 ==
LOC: EMR 17:23 → 2W 17:38 → EDBEDREQ 18:33
PROC: 0W9G3ZZ Drainage of Peritoneal Cavity, Percutaneous Approach (ICD-10-PCS; principal; 2018-05-04)
DX: I50.23 Acute on chronic systolic (congestive) heart failure (principal); R57.0 Cardiogenic shock; J96.00 Acute respiratory failure, unspecified whether with hypoxia or hypercapnia; I42.9 Cardiomyopathy, unspecified; N17.9 Acute kidney failure, unspecified; R18.8 Other ascites; I48.1 Persistent atrial fibrillation; Z95.810 Presence of automatic (implantable) cardiac defibrillator; I34.0 Nonrheumatic mitral (valve) insufficiency; I36.1 Nonrheumatic tricuspid (valve) insufficiency; I27.20 Pulmonary hypertension, unspecified; N18.9 Chronic kidney disease, unspecified; K74.60 Unspecified cirrhosis of liver; J44.9 Chronic obstructive pulmonary disease, unspecified; Z86.19 Personal history of other infectious and parasitic diseases; E03.9 Hypothyroidism, unspecified; Z88.6 Allergy status to analgesic agent; Z79.01 Long term (current) use of anticoagulants; K72.90 Hepatic failure, unspecified without coma
CPT/HCPCS: 36415; 71045; 76942; 80048; 80053; 80061; 80162; 80307; 82248; 82550; 82553; 83735; 83880; 84100; 84439; 84443; 84481; 84484; 85025; 85610; 85730; 87070; 87081; 87205; 88104; 89051; 93005; 93970; 96374; 97803; 99291; J2405; J3430; J8499

== ENCOUNTER 2018-05-18 14:45 | Inpatient (IN) | payer MEDICARE, MEDICAID ==
[~2018-05-18] VITALS: Ht 182.9 cm; Wt 68.5 kg
[~2018-05-18 14:45] MED LIST changes: +DOBUTAMINE IV
[2018-05-18 15:02] VITALS: BP 132/98
[2018-05-18 16:01] LABS: BASOPHILS % (AUTO) 2.7 % (0.0-2.0); EOSINOPHILS % (AUTO) 0.2 % (0.0-3.0); HEMOGLOBIN 11.7 G/DL (14.2-18.0); LYMPHOCYTES % (AUTO) 13.7 % (20.0-45.0); MEAN CORPUSCULAR VOLUME 86 FL (80-99); MONOCYTES % (AUTO) 17.4 % (1.0-10.0); PLATELET COUNT 265 K/UL (150-450); RED CELL DISTRIBUTION WIDTH 21.5 % (11.6-14.8); WHITE BLOOD COUNT 6.6 K/UL (4.8-10.8)
[2018-05-18 16:36] LABS: APPEARANCE,URINE CLEAR; BILIRUBIN, URINE 1+ (NEGATIVE); GLUCOSE, URINE (UA) NEGATIVE (NEGATIVE); KETONES,URINE 1+ (NEGATIVE); LEUKOCYTE ESTERASE ,URINE 1+ (NEGATIVE); NITRITE,URINE NEGATIVE (NEGATIVE); PH,URINE 5 (4.5-8.0); PROTEIN,URINE 3+ (NEGATIVE); UROBILINOGEN,URINE 4 MG/DL (0.0-1.0)
[2018-05-18 16:38] LABS: INR 1.9 (0.9-1.1)
[2018-05-18 16:39] LABS: COLOR,URINE AMBER
--- NOTE | 2018-05-18 16:48 | Emergency Room Report ---
History of Present Illness General Chief Complaint: Chest Pain Source: Patient Present Illness HPI This patient has a history of cirrhosis and ascites. The patient has recently admitted for ascites and had to undergo paracentesis. The patient presents with a distended abdomen and abdominal pain that feels similar to his previous ascites. He states that his abdomen is swollen and feels pressured. He denies recent illness. He denies fever or chills. He denies nausea or vomiting. He has no other complaints. Allergies: Coded Allergies: HYDROMORPHONE (Verified Allergy, Unknown, 12/28/10) Patient History Past Medical History: see triage record, AL, CAD, CHF, GERD, other - cirrhosis , HEP C Social History: Denies: smoking, alcohol use, drug use Reviewed Nursing Documentation: PMH: Agreed; PSxH: Agreed Nursing Documentation-PMH Hx Cardiac Problems: Yes Hx Hypertension: Yes Hx Pacemaker: No Hx COPD: Yes Hx Cancer: No Hx Gastrointestinal Problems: Yes Hx Neurological Problems: No Hx Cerebrovascular Accident: No Hx Transient Ischemic Attacks: No Review of Systems All Other Systems: negative except mentioned in HPI Physical Exam Vital Signs Date Time Temp Pulse Resp B/P (MAP) Pulse Ox O2 Delivery O2 Flow Rate FiO2 05/18/18 14:59 97.0 83 13 132/98 98 Room Air 05/18/18 15:02 98 Sp02 EP Interpretation: reviewed, normal General Appearance: no apparent distress, alert, GCS 15, non-toxic Head: normocephalic, atraumatic Eyes: bilateral eye normal inspection, bilateral eye PERRL ENT: hearing grossly normal, normal pharynx, no angioedema, normal voice Neck: full range of motion, supple/symm/no masses Respiratory: chest non-tender, lungs clear, normal breath sounds, no respiratory distress, no retraction, no accessory muscle use, speaking full sentences Cardiovascular #1: regular rate, rhythm, no edema Gastrointestinal: normal bowel sounds, non tender, soft, no guarding, no rebound, distended Rectal: deferred Musculoskeletal: back normal, gait/station normal, normal range of motion, non- tender Neurologic: alert, oriented x3, responsive, motor strength/tone normal, sensory intact, speech normal Psychiatric: judgement/insight normal, memory normal, mood/affect normal, no suicidal/homicidal ideation Skin: normal color, no rash, warm/dry, well hydrated Medical Decision Making Diagnostic Impression: Primary Impression: Hypoglycemia Additional Impressions: Ascites Cirrhosis Hepatitis C Renal failure ER Course This patient has ascites and cirrhosis. The patient was also found to have hypoglycemia. Initial blood sugar was 31. The patient was given a high carbohydrate meal and a deep 50 IV. He was also started on a D10 drip. I am unsure of the etiology of his hypoglycemia. The patient also has obvious ascites and will need a paracentesis as an inpatient. Overall, the patient is well-appearing and nontoxic. He is admitted for further evaluation and treatment. Laboratory Tests Test 05/18/18 15:35 White Blood Count 6.6 K/UL (4.8-10.8) Red Blood Count 4.40 M/UL (4.70-6.10) L Hemoglobin 11.7 G/DL (14.2-18.0) L Hematocrit 38.0 % (42.0-52.0) L Mean Corpuscular Volume 86 FL (80-99) Mean Corpuscular Hemoglobin 26.6 PG (27.0-31.0) L Mean Corpuscular Hemoglobin Concent 30.7 G/DL (32.0-36.0) L Red Cell Distribution Width 21.5 % (11.6-14.8) H Platelet Count 265 K/UL (150-450) Mean Platelet Volume 6.0 FL (6.5-10.1) L Neutrophils (%) (Auto) 66.0 % (45.0-75.0) Lymphocytes (%) (Auto) 13.7 % (20.0-45.0) L Monocytes (%) (Auto) 17.4 % (1.0-10.0) H Eosinophils (%) (Auto) 0.2 % (0.0-3.0) Basophils (%) (Auto) 2.7 % (0.0-2.0) H Prothrombin Time 19.1 SEC (9.30-11.50) H Prothrombin Time INR 1.9 (0.9-1.1) H PTT 25 SEC (23-33) D-Dimer Pending Urine Color Prerna Urine Appearance Clear Urine pH 5 (4.5-8.0) Urine Specific [place] 1.025 (1.005-1.035) Urine Protein 3+ (NEGATIVE) H Urine Glucose (UA) Negative (NEGATIVE) Urine Ketones 1+ (NEGATIVE) H Urine Blood Negative (NEGATIVE) Urine Nitrite Negative (NEGATIVE) Urine Bilirubin 1+ (NEGATIVE) H Urine Ictotest Pending Urine Urobilinogen 4 MG/DL (0.0-1.0) H Urine Leukocyte Esterase 1+ (NEGATIVE) H Urine RBC Pending Urine WBC Pending Urine Squamous Epithelial Cells Pending Urine Bacteria Pending Troponin I 0.036 ng/mL (0.000-0.056) Urine Opiates Screen Pending Urine Barbiturates Screen Pending Phencyclidine (PCP) Screen Pending Urine Amphetamines Screen Pending Urine Benzodiazepines Screen Pending Urine Cocaine Screen Pending Urine Marijuana (THC) Screen Pending EKG Diagnostic Results Rate: normal, other Rhythm: other - A.fib with some paced complexes Rhythm Strip Diag. Results EP Interpretation: yes Rate: 90's Rhythm: other - A.fib Last Vital Signs Date Time Temp Pulse Resp B/P (MAP) Pulse Ox O2 Delivery O2 Flow Rate FiO2 05/18/18 15:02 97.0 83 13 132/98 98 Room Air 05/18/18 15:02 98 Disposition: ADMITTED INPATIENT Condition: Serious Referrals: Shahid Cherry DO (PCP) Chandni Obregon DO May 18, 2018 16:48
--- NOTE | 2018-05-18 16:59 | Diagnostic Imaging Report ---
Indication: Chest pain Technique: One view of the chest Comparison: 05/09/2018 Findings: The heart is markedly enlarged. Left chest 3-lead AICD, possibly with one orphaned lead, is again demonstrated. No definite infiltrates, effusions, or congestion. Previously demonstrated right arm catheter is no longer evident. No other significant interim change Impression: Cardiomegaly. No acute process
[2018-05-18 17:23] VITALS: BP 122/93
[2018-05-18 17:26] LABS: ALANINE AMINOTRANSFERASE 16 U/L (12-78); ALBUMIN 2.4 G/DL (3.4-5.0); ALBUMIN/GLOBULIN RATIO 0.6 (1.0-2.7); ALKALINE PHOSPHATASE 95 U/L (46-116); ANION GAP 15 mmol/L (5-15); ASPARTATE AMINO TRANSFERASE 40 U/L (15-37); BLOOD UREA NITROGEN 62 mg/dL (7-18); CALCIUM 6.5 MG/DL (8.5-10.1); CARBON DIOXIDE 13 MMOL/L (21-32); CHLORIDE 111 MMOL/L (98-107); CREATINE KINASE 72 U/L (26-308); CREATININE 1.7 MG/DL (0.55-1.30); POTASSIUM 4.7 MMOL/L (3.5-5.1); SODIUM 139 MMOL/L (136-145)
[2018-05-18 17:29] LABS: BILIRUBIN,DIRECT 1.2 MG/DL (0.0-0.3)
[2018-05-18] MEDS ORDERED: FUROSEMIDE40 MG ORAL (17:39)
[2018-05-18] MEDS ORDERED: OXYCODONE HCL10 MG ORAL (17:42)
[2018-05-18] MEDS ORDERED: ISOSORBIDE DINIT5 MG ORAL (17:45)
[2018-05-18] MEDS ORDERED: HYDRALAZINE HCL10 MG ORAL (17:45)
[2018-05-18] MEDS ORDERED: VENTOLIN HFA18 GM INH (17:45)
[2018-05-18] MEDS ORDERED: PRILOSEC OTC20 MG ORAL (17:45)
[2018-05-18] MEDS ORDERED: WARFARIN SODIUM1 MG ORAL (17:45)
[2018-05-18] MEDS: Dextrose 10%/.45 SOD CHL 1,000 ML IV SCH (18:18)
[2018-05-18 19:35] VITALS: BP 110/90
[2018-05-18 20:21] VITALS: BP 112/85
[2018-05-18 20:30] VITALS: BP 115/80
[2018-05-18] MEDS ORDERED: Mylanta II UD 30ml ORAL PRN (22:30)
[2018-05-18] MEDS ORDERED: Miralax 17gm pkt ORAL PRN (22:30)
[2018-05-18] MEDS ORDERED: Zolpidem 5mg tab ORAL PRN (22:30)
[2018-05-18] MEDS ORDERED: LORazepam Inj 2mg/ml 1ml IV PRN (22:30)
[2018-05-19] VITALS: BP 118/70
[2018-05-19 04:00] VITALS: BP 101/75
[2018-05-19] MEDS ORDERED: Levothyroxine 125mcg tab ORAL SCH (06:30)
[2018-05-19 06:44] LABS: BASOPHILS % (AUTO) 0.9 % (0.0-2.0); EOSINOPHILS % (AUTO) 0.7 % (0.0-3.0); HEMATOCRIT 33.9 % (42.0-52.0); HEMOGLOBIN 10.7 G/DL (14.2-18.0); LYMPHOCYTES % (AUTO) 14.1 % (20.0-45.0); MEAN CORPUSCULAR VOLUME 85 FL (80-99); MONOCYTES % (AUTO) 14.9 % (1.0-10.0); NEUTROPHILS % (AUTO) 69.4 % (45.0-75.0); PLATELET COUNT 248 K/UL (150-450); RED BLOOD COUNT 3.98 M/UL (4.70-6.10); RED CELL DISTRIBUTION WIDTH 20.4 % (11.6-14.8); WHITE BLOOD COUNT 5.8 K/UL (4.8-10.8)
[2018-05-19 07:11] LABS: ALANINE AMINOTRANSFERASE 23 U/L (12-78); ALBUMIN 3.4 G/DL (3.4-5.0); ALBUMIN/GLOBULIN RATIO 0.6 (1.0-2.7); ALKALINE PHOSPHATASE 132 U/L (46-116); ANION GAP 10 mmol/L (5-15); ASPARTATE AMINO TRANSFERASE 37 U/L (15-37); BILIRUBIN,TOTAL 3.1 MG/DL (0.2-1.0); BLOOD UREA NITROGEN 82 mg/dL (7-18); CALCIUM 8.7 MG/DL (8.5-10.1); CARBON DIOXIDE 23 MMOL/L (21-32); CHLORIDE 100 MMOL/L (98-107); CHOLESTEROL 138 MG/DL (< 200); CREATININE 2.5 MG/DL (0.55-1.30); HDL CHOLESTEROL 28 MG/DL (40-60); POTASSIUM 5.7 MMOL/L (3.5-5.1); SODIUM 133 MMOL/L (136-145); TRIGLYCERIDES 62 MG/DL (30-150)
[2018-05-19 08:00] VITALS: BP 107/71
[2018-05-19] MEDS ORDERED: Furosemide 40mg tab ORAL SCH (09:00)
[2018-05-19] MEDS ORDERED: Lisinopril 2.5mg tab ORAL SCH (09:00)
[2018-05-19] MEDS: Digoxin 0.125mg tab ORAL SCH (09:00)
[2018-05-19] MEDS ORDERED: HydrALAZINE 10mg Tab ORAL SCH (09:00)
[2018-05-19] MEDS: Spironolactone 50mg tab ORAL SCH (10:02)
[2018-05-19] MEDS: oxyCODONE 5mg IR tab ORAL PRN ×2 (10:52→21:02)
[2018-05-19 12:00] VITALS: BP 113/66
[2018-05-19] MEDS ORDERED: Sodium Polystyrene Sulfonate 15gm Powder ORAL SCH (12:30)
--- NOTE | 2018-05-19 13:33 | Consultation ---
History of Present Illness General Date patient seen: May 19, 2018 Chief Complaint: Chest Pain Present Illness HPI 63-year-old male with a history of severe cardiomyopathy with ejection fraction less than 10%. 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 This is similar to previous episode. He is admitted for further evaluation. Allergies: Coded Allergies: HYDROMORPHONE (Verified Allergy, Unknown, 12/28/10) Medication History Scheduled Digoxin* (Digoxin*), 125 MCG ORAL DAILY, (Reported) Furosemide* (Lasix*), 40 MG ORAL DAILY, (Reported) Gabapentin* (Gabapentin*), 100 MG ORAL THREE TIMES A DAY, (Reported) Hydralazine Hcl* (Hydralazine Hcl*), 10 MG ORAL DAILY, (Reported) Isosorbide Dinitrate (Isosorbide Dinitrate*), 5 MG ORAL BID, (Reported) Levothyroxine Sodium* (Levothyroxine Sodium*), 125 MCG ORAL BEFORE BREAKFAST, ( Reported) Lisinopril (Lisinopril*), 5 MG ORAL DAILY, (Reported) Multivitamins* (Multivitamins*), 1 TAB ORAL DAILY, (Reported) Omeprazole Magnesium (Prilosec Otc), 20 MG ORAL DAILY, (Reported) Spironolactone* (Spironolactone*), 25 MG ORAL DAILY, (Reported) Warfarin Sod* (Warfarin Sod*), 0.5 MG ORAL DAILY, (Reported) Scheduled PRN Albuterol Sulfate (Ventolin Hfa), 1 PUFF INH EVERY 6 HOURS PRN for Shortness of Breath, (Reported) Oxycodone Hcl* (Oxycodone Hcl*), 10 MG ORAL DAILY PRN for For Pain, (Reported) Discontinued Medications Carvedilol* (Carvedilol*), 3.125 MG ORAL DAILY, (Reported) Discontinued Reason: Therapy completed Furosemide* (Lasix*), 20 MG ORAL DAILY, (Reported) Discontinued Reason: Therapy completed Furosemide* (Lasix*), 40 MG ORAL TWICE A DAY Discontinued Reason: Medication dose changed OXYCODONE HCl* (Roxicodone*), 15 MG ORAL Q6H PRN for For Pain, (Reported) Discontinued Reason: Prescription changed Ondansetron* (Zofran*), 4 MG ORAL Q8HR PRN for Nausea & Vomiting, (Reported) Discontinued Reason: Therapy completed Rivaroxaban (Xarelto*), 15 MG ORAL DAILY, (Reported) Discontinued Reason: Therapy completed Patient History Healthcare decision maker Resuscitation status Full Code Advanced Directive on File No Past Medical/Surgical History Past Medical/Surgical History: (1) Anemia (2) Hepatitis C (3) Emphysema lung (4) ICD (implantable cardioverter-defibrillator) in place (5) Hypothyroidism (6) Cirrhosis (7) HNP (herniated nucleus pulposus), lumbar Review of Systems All Other Systems: negative except mentioned in HPI Physical Exam General Appearance: WD/WN Lines, tubes and drains: peripheral HEENT: normocephalic, atraumatic Neck: non-tender, normal alignment Respiratory/Chest: chest wall non-tender, lungs clear Breasts: no masses Cardiovascular/Chest: normal peripheral pulses Abdomen: normal bowel sounds, non tender Genitourinary/Rectal: normal genital exam Extremities: normal range of motion Skin Exam: normal pigmentation Neurologic: hospital wellness coordinator II-XII grossly normal Last 24 Hour Vital Signs Date Time Temp Pulse Resp B/P (MAP) Pulse Ox O2 Delivery O2 Flow Rate FiO2 05/19/18 09:00 100/74 05/19/18 09:00 100/74 05/19/18 09:00 59 05/19/18 08:00 97.5 77 20 107/71 (83) 99 05/19/18 04:00 96.0 97 17 101/75 (84) 98 05/19/18 00:00 96.0 70 18 118/70 (86) 98 05/18/18 21:35 Room Air 05/18/18 20:30 97.9 56 18 115/80 (92) 92 05/18/18 20:21 97.2 68 13 112/85 98 Room Air 05/18/18 20:20 97.8 63 18 112/73 99 Room Air 05/18/18 19:35 97.2 76 13 110/90 98 Room Air 05/18/18 17:23 79 14 122/93 99 05/18/18 15:02 97.0 83 13 132/98 98 Room Air 05/18/18 15:02 83 13 Room Air 98 05/18/18 14:59 97.0 83 13 132/98 98 Room Air Intake and Output 05/18/18 05/19/18 19:00 07:00 Intake Total 500 ml Balance 500 ml Intake IV Total 500 ml # Voids 1 Laboratory Tests Test 05/18/18 15:35 05/18/18 16:45 05/19/18 05:55 White Blood Count 6.6 K/UL (4.8-10.8) 5.8 K/UL (4.8-10.8) Red Blood Count 4.40 M/UL (4.70-6.10) L 3.98 M/UL (4.70-6.10) L Hemoglobin 11.7 G/DL (14.2-18.0) L 10.7 G/DL (14.2-18.0) L Hematocrit 38.0 % (42.0-52.0) L 33.9 % (42.0-52.0) L Mean Corpuscular Volume 86 FL (80-99) 85 FL (80-99) Mean Corpuscular Hemoglobin 26.6 PG (27.0-31.0) L 26.8 PG (27.0-31.0) L Mean Corpuscular Hemoglobin Concent 30.7 G/DL (32.0-36.0) L 31.4 G/DL (32.0-36.0) L Red Cell Distribution Width 21.5 % (11.6-14.8) H 20.4 % (11.6-14.8) H Platelet Count 265 K/UL (150-450) 248 K/UL (150-450) Mean Platelet Volume 6.0 FL (6.5-10.1) L 5.8 FL (6.5-10.1) L Neutrophils (%) (Auto) 66.0 % (45.0-75.0) 69.4 % (45.0-75.0) Lymphocytes (%) (Auto) 13.7 % (20.0-45.0) L 14.1 % (20.0-45.0) L Monocytes (%) (Auto) 17.4 % (1.0-10.0) H 14.9 % (1.0-10.0) H Eosinophils (%) (Auto) 0.2 % (0.0-3.0) 0.7 % (0.0-3.0) Basophils (%) (Auto) 2.7 % (0.0-2.0) H 0.9 % (0.0-2.0) Prothrombin Time 19.1 SEC (9.30-11.50) H Prothromb Time International Ratio 1.9 (0.9-1.1) H Activated Partial Thromboplast Time 25 SEC (23-33) D-Dimer 12.76 mg/L FEU (0.00-0.49) H Urine Color Prerna Urine Appearance Clear Urine pH 5 (4.5-8.0) Urine Specific [place] 1.025 (1.005-1.035) Urine Protein 3+ (NEGATIVE) H Urine Glucose (UA) Negative (NEGATIVE) Urine Ketones 1+ (NEGATIVE) H Urine Blood Negative (NEGATIVE) Urine Nitrite Negative (NEGATIVE) Urine Bilirubin 1+ (NEGATIVE) H Urine Ictotest Positive (NEGATIVE) Urine Urobilinogen 4 MG/DL (0.0-1.0) H Urine Leukocyte Esterase 1+ (NEGATIVE) H Urine RBC 0-2 /HPF (0 - 0) H Urine WBC 2-4 /HPF (0 - 0) Urine Squamous Epithelial Cells None /LPF (NONE/OCC) Urine Bacteria Many /HPF (NONE) H Urine Hyaline Casts 10-15 /LPF (NONE) H Troponin I 0.036 ng/mL (0.000-0.056) Urine Opiates Screen Negative (NEGATIVE) Urine Barbiturates Screen Negative (NEGATIVE) Phencyclidine (PCP) Screen Negative (NEGATIVE) Urine Amphetamines Screen Negative (NEGATIVE) Urine Benzodiazepines Screen Negative (NEGATIVE) Urine Cocaine Screen Negative (NEGATIVE) Urine Marijuana (THC) Screen Positive (NEGATIVE) H Sodium Level 139 MMOL/L (136-145) 133 MMOL/L (136-145) L Potassium Level 4.7 MMOL/L (3.5-5.1) 5.7 MMOL/L (3.5-5.1) H Chloride Level 111 MMOL/L (98-107) H 100 MMOL/L (98-107) Carbon Dioxide Level 13 MMOL/L (21-32) L 23 MMOL/L (21-32) Anion Gap 15 mmol/L (5-15) 10 mmol/L (5-15) Blood Urea Nitrogen 62 mg/dL (7-18) H 82 mg/dL (7-18) H Creatinine 1.7 MG/DL (0.55-1.30) H 2.5 MG/DL (0.55-1.30) H Estimat Glomerular Filtration Rate 49.3 mL/min (>60) 31.5 mL/min (>60) Glucose Level 31 MG/DL (74-106) *L 174 MG/DL (74-106) #H Calcium Level 6.5 MG/DL (8.5-10.1) L 8.7 MG/DL (8.5-10.1) # Total Bilirubin 3.0 MG/DL (0.2-1.0) H 3.1 MG/DL (0.2-1.0) H Direct Bilirubin 1.2 MG/DL (0.0-0.3) H 2.0 MG/DL (0.0-0.3) H Aspartate Amino Transf (AST/SGOT) 40 U/L (15-37) H 37 U/L (15-37) Alanine Aminotransferase (ALT/SGPT) 16 U/L (12-78) 23 U/L (12-78) Alkaline Phosphatase 95 U/L (46-116) 132 U/L (46-116) H Total Creatine Kinase 72 U/L (26-308) Creatine Kinase MB 1.0 NG/ML (0.0-3.6) Creatine Kinase MB Relative Index 1.3 Total Protein 6.4 G/DL (6.4-8.2) 8.8 G/DL (6.4-8.2) #H Albumin 2.4 G/DL (3.4-5.0) L 3.4 G/DL (3.4-5.0) Globulin 4.0 g/dL 5.4 g/dL Albumin/Globulin Ratio 0.6 (1.0-2.7) L 0.6 (1.0-2.7) L Triglycerides Level 62 MG/DL (30-150) Cholesterol Level 138 MG/DL (< 200) LDL Cholesterol 112 mg/dL (<100) H HDL Cholesterol 28 MG/DL (40-60) L Cholesterol/HDL Ratio 4.9 (3.3-4.4) H Thyroid Stimulating Hormone (TSH) 24.070 uiU/mL (0.358-3.740) Cortisol Pending Adrenocorticotropic Hormone Pending Microbiology Date/Time Source Procedure Growth Status 05/18/18 15:35 Urine,Clean Catch Urine Culture - Preliminary Gram Negative Bacillus 1 Resulted Height (Feet): 6 Height (Inches): 0.00 Weight (Pounds): 175 Medications Current Medications Medications (Trade) Dose Ordered Sig/Allyn Route PRN Reason Start Time Stop Time Status Last Admin Dose Admin Acetaminophen (Tylenol) 650 mg Q4H PRN ORAL fever 05/18/18 22:30 06/17/18 22:29 Al Hydroxide/Mg Hydroxide (Mylanta II) 30 ml Q6H PRN ORAL dyspepsia 05/18/18 22:30 06/17/18 22:29 Dextrose (Dextrose 50%) STAT PRN IV Hypoglycemia 05/18/18 22:30 06/17/18 22:29 Dextrose/Sodium Chloride 1,000 ml @ 50 mls/hr Q20H IV 05/18/18 18:00 06/17/18 17:59 05/18/18 18:18 Digoxin (Lanoxin) 0.125 mg DAILY ORAL 05/19/18 09:00 06/18/18 08:59 Furosemide (Lasix) 40 mg DAILY ORAL 05/19/18 09:00 06/18/18 08:59 05/19/18 10:03 Gabapentin (Neurontin) 100 mg THREE TIMES A DAY ORAL 05/19/18 09:00 06/18/18 08:59 05/19/18 10:02 Hydralazine HCl (Apresoline) 10 mg DAILY ORAL 05/19/18 09:00 06/18/18 08:59 Levothyroxine Sodium (Synthroid) 50 mcg DAILY@0630 ORAL 05/20/18 06:30 06/19/18 06:29 Levothyroxine Sodium (Synthroid) 125 mcg BEFORE BREAKFAST ORAL 05/20/18 06:30 06/18/18 06:29 Lisinopril (Zestril) 5 mg DAILY ORAL 05/19/18 09:00 06/18/18 08:59 Lorazepam (Ativan 2mg/ml 1ml) 0.5 mg Q4H PRN IV For Anxiety 05/18/18 22:30 05/25/18 22:29 05/18/18 23:22 Ondansetron HCl (Zofran) 4 mg Q6H PRN IVP Nausea & Vomiting 05/18/18 22:30 06/17/18 22:29 Oxycodone HCl (Roxicodone) 10 mg Q8H PRN ORAL Severe Pain (Pain Scale 7-10) 05/19/18 10:15 05/26/18 10:14 05/19/18 10:52 Polyethylene Glycol (Miralax) 17 gm HSPRN PRN ORAL Constipation 05/18/18 22:30 06/17/18 22:29 Sodium Polystyrene Sulfonate (Kayexalate) 30 gm ONCE ORAL 05/19/18 12:30 05/19/18 13:30 Spironolactone (Aldactone) 25 mg DAILY ORAL 05/19/18 09:00 06/18/18 08:59 05/19/18 10:02 Zolpidem Tartrate (Ambien) 5 mg HSPRN PRN ORAL Insomnia 05/18/18 22:30 05/25/18 22:29 Assessment/Plan Problem List: (1) Ascites ICD Codes: R18.8 - Ascites SNOMED: 859449405 (2) Emphysema lung ICD Codes: J43.9 - Emphysema lung SNOMED: 64254139 (3) Cardiomyopathy due to hypertension, with heart failure ICD Codes: I11.0 - Cardiomyopathy due to hypertension, with heart failure; I42.9 - Cardiomyopathy, unspecified SNOMED: 02401454 (4) Right-sided heart failure ICD Codes: I50.9 - Right-sided heart failure SNOMED: 694443379 (5) Cirrhosis ICD Codes: K74.60 - Unspecified cirrhosis of liver SNOMED: 33458792 (6) Hypothyroidism ICD Codes: E03.9 - Hypothyroidism SNOMED: 23820481 (7) ICD (implantable cardioverter-defibrillator) in place ICD Codes: Z95.810 - Presence of automatic (implantable) cardiac defibrillator SNOMED: 826761330, 862174964 (8) Hepatitis C ICD Codes: B19.20 - Hepatitis C SNOMED: 66865032 (9) Anemia ICD Codes: D64.9 - Anemia, unspecified SNOMED: 399550458 Assessment/Plan paracentesis symptomatic treatment diuretics end of life discussion with patient, and address code status recurrent admission Andrzej Chavarria MD May 19, 2018 13:33
[2018-05-19] MEDS: Dextrose 10%/.45 SOD CHL 1,000 ML IV SCH (13:51)
--- NOTE | 2018-05-19 14:48 | Consultation ---
History of Present Illness General Date patient seen: May 19, 2018 Chief Complaint: Chest Pain Present Illness HPI 63 y/o M with hx of severe cardiomyopathy w/ EF <10%, CAD/RI, GERD, HTN, Hep C, end-stage liver disease w/ cirrhosis and ascites, chronic pain on oxycodone presented to ED on 05/18 with abd pain and distention, SOB. Denies f/c, n/v Allergies: Coded Allergies: HYDROMORPHONE (Verified Allergy, Unknown, 12/28/10) Medication History Scheduled Digoxin* (Digoxin*), 125 MCG ORAL DAILY, (Reported) Furosemide* (Lasix*), 40 MG ORAL DAILY, (Reported) Gabapentin* (Gabapentin*), 100 MG ORAL THREE TIMES A DAY, (Reported) Hydralazine Hcl* (Hydralazine Hcl*), 10 MG ORAL DAILY, (Reported) Isosorbide Dinitrate (Isosorbide Dinitrate*), 5 MG ORAL BID, (Reported) Levothyroxine Sodium* (Levothyroxine Sodium*), 125 MCG ORAL BEFORE BREAKFAST, ( Reported) Lisinopril (Lisinopril*), 5 MG ORAL DAILY, (Reported) Multivitamins* (Multivitamins*), 1 TAB ORAL DAILY, (Reported) Omeprazole Magnesium (Prilosec Otc), 20 MG ORAL DAILY, (Reported) Spironolactone* (Spironolactone*), 25 MG ORAL DAILY, (Reported) Warfarin Sod* (Warfarin Sod*), 0.5 MG ORAL DAILY, (Reported) Scheduled PRN Albuterol Sulfate (Ventolin Hfa), 1 PUFF INH EVERY 6 HOURS PRN for Shortness of Breath, (Reported) Oxycodone Hcl* (Oxycodone Hcl*), 10 MG ORAL DAILY PRN for For Pain, (Reported) Discontinued Medications Carvedilol* (Carvedilol*), 3.125 MG ORAL DAILY, (Reported) Discontinued Reason: Therapy completed Furosemide* (Lasix*), 20 MG ORAL DAILY, (Reported) Discontinued Reason: Therapy completed Furosemide* (Lasix*), 40 MG ORAL TWICE A DAY Discontinued Reason: Medication dose changed OXYCODONE HCl* (Roxicodone*), 15 MG ORAL Q6H PRN for For Pain, (Reported) Discontinued Reason: Prescription changed Ondansetron* (Zofran*), 4 MG ORAL Q8HR PRN for Nausea & Vomiting, (Reported) Discontinued Reason: Therapy completed Rivaroxaban (Xarelto*), 15 MG ORAL DAILY, (Reported) Discontinued Reason: Therapy completed Patient History Healthcare decision maker Resuscitation status Full Code Advanced Directive on File No Patient History Narrative Pmhx: as above Shx: Denies: smoking, alcohol use, drug use FHx: non contributory Physical Exam Physical Exam Narrative General Appearance: WD/WN Lines, tubes and drains: peripheral HEENT: normocephalic, atraumatic Neck: non-tender, normal alignment Respiratory/Chest: chest wall non-tender, lungs clear Cardiovascular/Chest: normal peripheral pulses Abdomen: normal bowel sounds, non tender Extremities: normal range of motion Skin Exam: normal pigmentation 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 Last 24 Hour Vital Signs Date Time Temp Pulse Resp B/P (MAP) Pulse Ox O2 Delivery O2 Flow Rate FiO2 05/19/18 09:00 100/74 05/19/18 09:00 100/74 05/19/18 09:00 59 05/19/18 08:00 97.5 77 20 107/71 (83) 99 05/19/18 04:00 96.0 97 17 101/75 (84) 98 05/19/18 00:00 96.0 70 18 118/70 (86) 98 05/18/18 21:35 Room Air 05/18/18 20:30 97.9 56 18 115/80 (92) 92 05/18/18 20:21 97.2 68 13 112/85 98 Room Air 05/18/18 20:20 97.8 63 18 112/73 99 Room Air 05/18/18 19:35 97.2 76 13 110/90 98 Room Air 05/18/18 17:23 79 14 122/93 99 05/18/18 15:02 97.0 83 13 132/98 98 Room Air 05/18/18 15:02 83 13 Room Air 98 05/18/18 14:59 97.0 83 13 132/98 98 Room Air Intake and Output 05/18/18 05/19/18 19:00 07:00 Intake Total 500 ml Balance 500 ml Intake IV Total 500 ml # Voids 1 Laboratory Tests Test 05/18/18 15:35 05/18/18 16:45 05/19/18 05:55 White Blood Count 6.6 K/UL (4.8-10.8) 5.8 K/UL (4.8-10.8) Red Blood Count 4.40 M/UL (4.70-6.10) L 3.98 M/UL (4.70-6.10) L Hemoglobin 11.7 G/DL (14.2-18.0) L 10.7 G/DL (14.2-18.0) L Hematocrit 38.0 % (42.0-52.0) L 33.9 % (42.0-52.0) L Mean Corpuscular Volume 86 FL (80-99) 85 FL (80-99) Mean Corpuscular Hemoglobin 26.6 PG (27.0-31.0) L 26.8 PG (27.0-31.0) L Mean Corpuscular Hemoglobin Concent 30.7 G/DL (32.0-36.0) L 31.4 G/DL (32.0-36.0) L Red Cell Distribution Width 21.5 % (11.6-14.8) H 20.4 % (11.6-14.8) H Platelet Count 265 K/UL (150-450) 248 K/UL (150-450) Mean Platelet Volume 6.0 FL (6.5-10.1) L 5.8 FL (6.5-10.1) L Neutrophils (%) (Auto) 66.0 % (45.0-75.0) 69.4 % (45.0-75.0) Lymphocytes (%) (Auto) 13.7 % (20.0-45.0) L 14.1 % (20.0-45.0) L Monocytes (%) (Auto) 17.4 % (1.0-10.0) H 14.9 % (1.0-10.0) H Eosinophils (%) (Auto) 0.2 % (0.0-3.0) 0.7 % (0.0-3.0) Basophils (%) (Auto) 2.7 % (0.0-2.0) H 0.9 % (0.0-2.0) Prothrombin Time 19.1 SEC (9.30-11.50) H Prothromb Time International Ratio 1.9 (0.9-1.1) H Activated Partial Thromboplast Time 25 SEC (23-33) D-Dimer 12.76 mg/L FEU (0.00-0.49) H Urine Color Prerna Urine Appearance Clear Urine pH 5 (4.5-8.0) Urine Specific [place] 1.025 (1.005-1.035) Urine Protein 3+ (NEGATIVE) H Urine Glucose (UA) Negative (NEGATIVE) Urine Ketones 1+ (NEGATIVE) H Urine Blood Negative (NEGATIVE) Urine Nitrite Negative (NEGATIVE) Urine Bilirubin 1+ (NEGATIVE) H Urine Ictotest Positive (NEGATIVE) Urine Urobilinogen 4 MG/DL (0.0-1.0) H Urine Leukocyte Esterase 1+ (NEGATIVE) H Urine RBC 0-2 /HPF (0 - 0) H Urine WBC 2-4 /HPF (0 - 0) Urine Squamous Epithelial Cells None /LPF (NONE/OCC) Urine Bacteria Many /HPF (NONE) H Urine Hyaline Casts 10-15 /LPF (NONE) H Troponin I 0.036 ng/mL (0.000-0.056) Urine Opiates Screen Negative (NEGATIVE) Urine Barbiturates Screen Negative (NEGATIVE) Phencyclidine (PCP) Screen Negative (NEGATIVE) Urine Amphetamines Screen Negative (NEGATIVE) Urine Benzodiazepines Screen Negative (NEGATIVE) Urine Cocaine Screen Negative (NEGATIVE) Urine Marijuana (THC) Screen Positive (NEGATIVE) H Sodium Level 139 MMOL/L (136-145) 133 MMOL/L (136-145) L Potassium Level 4.7 MMOL/L (3.5-5.1) 5.7 MMOL/L (3.5-5.1) H Chloride Level 111 MMOL/L (98-107) H 100 MMOL/L (98-107) Carbon Dioxide Level 13 MMOL/L (21-32) L 23 MMOL/L (21-32) Anion Gap 15 mmol/L (5-15) 10 mmol/L (5-15) Blood Urea Nitrogen 62 mg/dL (7-18) H 82 mg/dL (7-18) H Creatinine 1.7 MG/DL (0.55-1.30) H 2.5 MG/DL (0.55-1.30) H Estimat Glomerular Filtration Rate 49.3 mL/min (>60) 31.5 mL/min (>60) Glucose Level 31 MG/DL (74-106) *L 174 MG/DL (74-106) #H Calcium Level 6.5 MG/DL (8.5-10.1) L 8.7 MG/DL (8.5-10.1) # Total Bilirubin 3.0 MG/DL (0.2-1.0) H 3.1 MG/DL (0.2-1.0) H Direct Bilirubin 1.2 MG/DL (0.0-0.3) H 2.0 MG/DL (0.0-0.3) H Aspartate Amino Transf (AST/SGOT) 40 U/L (15-37) H 37 U/L (15-37) Alanine Aminotransferase (ALT/SGPT) 16 U/L (12-78) 23 U/L (12-78) Alkaline Phosphatase 95 U/L (46-116) 132 U/L (46-116) H Total Creatine Kinase 72 U/L (26-308) Creatine Kinase MB 1.0 NG/ML (0.0-3.6) Creatine Kinase MB Relative Index 1.3 Total Protein 6.4 G/DL (6.4-8.2) 8.8 G/DL (6.4-8.2) #H Albumin 2.4 G/DL (3.4-5.0) L 3.4 G/DL (3.4-5.0) Globulin 4.0 g/dL 5.4 g/dL Albumin/Globulin Ratio 0.6 (1.0-2.7) L 0.6 (1.0-2.7) L Triglycerides Level 62 MG/DL (30-150) Cholesterol Level 138 MG/DL (< 200) LDL Cholesterol 112 mg/dL (<100) H HDL Cholesterol 28 MG/DL (40-60) L Cholesterol/HDL Ratio 4.9 (3.3-4.4) H Thyroid Stimulating Hormone (TSH) 24.070 uiU/mL (0.358-3.740) Cortisol Pending Adrenocorticotropic Hormone Pending Microbiology Date/Time Source Procedure Growth Status 05/18/18 15:35 Urine,Clean Catch Urine Culture - Preliminary Gram Negative Bacillus 1 Resulted Height (Feet): 6 Height (Inches): 0.00 Weight (Pounds): 175 Medications Current Medications Medications (Trade) Dose Ordered Sig/Allyn Route PRN Reason Start Time Stop Time Status Last Admin Dose Admin Acetaminophen (Tylenol) 650 mg Q4H PRN ORAL fever 05/18/18 22:30 06/17/18 22:29 Al Hydroxide/Mg Hydroxide (Mylanta II) 30 ml Q6H PRN ORAL dyspepsia 05/18/18 22:30 06/17/18 22:29 Dextrose (Dextrose 50%) STAT PRN IV Hypoglycemia 05/18/18 22:30 06/17/18 22:29 Dextrose/Sodium Chloride 1,000 ml @ 50 mls/hr Q20H IV 05/18/18 18:00 06/17/18 17:59 05/18/18 18:18 Digoxin (Lanoxin) 0.125 mg DAILY ORAL 05/19/18 09:00 06/18/18 08:59 Furosemide (Lasix) 40 mg DAILY ORAL 05/19/18 09:00 06/18/18 08:59 05/19/18 10:03 Gabapentin (Neurontin) 100 mg THREE TIMES A DAY ORAL 05/19/18 09:00 06/18/18 08:59 05/19/18 13:51 Hydralazine HCl (Apresoline) 10 mg DAILY ORAL 05/19/18 09:00 06/18/18 08:59 Levothyroxine Sodium (Synthroid) 50 mcg DAILY@0630 ORAL 05/20/18 06:30 06/19/18 06:29 Levothyroxine Sodium (Synthroid) 125 mcg BEFORE BREAKFAST ORAL 05/20/18 06:30 06/18/18 06:29 Lisinopril (Zestril) 5 mg DAILY ORAL 05/19/18 09:00 06/18/18 08:59 Lorazepam (Ativan 2mg/ml 1ml) 0.5 mg Q4H PRN IV For Anxiety 05/18/18 22:30 05/25/18 22:29 05/18/18 23:22 Ondansetron HCl (Zofran) 4 mg Q6H PRN IVP Nausea & Vomiting 05/18/18 22:30 06/17/18 22:29 Oxycodone HCl (Roxicodone) 10 mg Q8H PRN ORAL Severe Pain (Pain Scale 7-10) 05/19/18 10:15 05/26/18 10:14 05/19/18 10:52 Polyethylene Glycol (Miralax) 17 gm HSPRN PRN ORAL Constipation 05/18/18 22:30 06/17/18 22:29 Spironolactone (Aldactone) 25 mg DAILY ORAL 05/19/18 09:00 06/18/18 08:59 05/19/18 10:02 Zolpidem Tartrate (Ambien) 5 mg HSPRN PRN ORAL Insomnia 05/18/18 22:30 05/25/18 22:29 Assessment/Plan Assessment/Plan Abx: None Assessment: Abd pain/distention Ascites- r/o probable SBP Afebrile No leukocytosis -CXR: Cardiomegaly. No acute process -u/a neg ARIS, increasing severe cardiomyopathy w/ EF <10% CAD/RI GERD HTN Hep C end-stage liver disease w/ cirrhosis and ascites chronic pain on oxycodone Plan: -Start empiric Ceftriaxone for probable SBP -for paracentesis -send fluid Cell count and cultures -f/u cx -Monitor CBC/CMP, temperatures -aspiration precautions Thank you for this consultation. Will continue to follow along with you. Discussed with Melisa Benitez M.D. May 19, 2018 14:48
--- NOTE | 2018-05-19 15:14 | Cardiac Electrophysiology PN ---
Subjective Subjective [id number] Objective Last 24 Hour Vital Signs Date Time Temp Pulse Resp B/P (MAP) Pulse Ox O2 Delivery O2 Flow Rate FiO2 05/19/18 09:00 100/74 05/19/18 09:00 100/74 05/19/18 09:00 59 05/19/18 08:00 97.5 77 20 107/71 (83) 99 05/19/18 04:00 96.0 97 17 101/75 (84) 98 05/19/18 00:00 96.0 70 18 118/70 (86) 98 05/18/18 21:35 Room Air 05/18/18 20:30 97.9 56 18 115/80 (92) 92 05/18/18 20:21 97.2 68 13 112/85 98 Room Air 05/18/18 20:20 97.8 63 18 112/73 99 Room Air 05/18/18 19:35 97.2 76 13 110/90 98 Room Air 05/18/18 17:23 79 14 122/93 99 Intake and Output 05/18/18 05/19/18 19:00 07:00 Intake Total 500 ml Balance 500 ml Intake IV Total 500 ml # Voids 1 Laboratory Tests Test 05/18/18 15:35 05/18/18 16:45 05/19/18 05:55 White Blood Count 6.6 K/UL (4.8-10.8) 5.8 K/UL (4.8-10.8) Red Blood Count 4.40 M/UL (4.70-6.10) L 3.98 M/UL (4.70-6.10) L Hemoglobin 11.7 G/DL (14.2-18.0) L 10.7 G/DL (14.2-18.0) L Hematocrit 38.0 % (42.0-52.0) L 33.9 % (42.0-52.0) L Mean Corpuscular Volume 86 FL (80-99) 85 FL (80-99) Mean Corpuscular Hemoglobin 26.6 PG (27.0-31.0) L 26.8 PG (27.0-31.0) L Mean Corpuscular Hemoglobin Concent 30.7 G/DL (32.0-36.0) L 31.4 G/DL (32.0-36.0) L Red Cell Distribution Width 21.5 % (11.6-14.8) H 20.4 % (11.6-14.8) H Platelet Count 265 K/UL (150-450) 248 K/UL (150-450) Mean Platelet Volume 6.0 FL (6.5-10.1) L 5.8 FL (6.5-10.1) L Neutrophils (%) (Auto) 66.0 % (45.0-75.0) 69.4 % (45.0-75.0) Lymphocytes (%) (Auto) 13.7 % (20.0-45.0) L 14.1 % (20.0-45.0) L Monocytes (%) (Auto) 17.4 % (1.0-10.0) H 14.9 % (1.0-10.0) H Eosinophils (%) (Auto) 0.2 % (0.0-3.0) 0.7 % (0.0-3.0) Basophils (%) (Auto) 2.7 % (0.0-2.0) H 0.9 % (0.0-2.0) Prothrombin Time 19.1 SEC (9.30-11.50) H Prothromb Time International Ratio 1.9 (0.9-1.1) H Activated Partial Thromboplast Time 25 SEC (23-33) D-Dimer 12.76 mg/L FEU (0.00-0.49) H Urine Color Prerna Urine Appearance Clear Urine pH 5 (4.5-8.0) Urine Specific [place] 1.025 (1.005-1.035) Urine Protein 3+ (NEGATIVE) H Urine Glucose (UA) Negative (NEGATIVE) Urine Ketones 1+ (NEGATIVE) H Urine Blood Negative (NEGATIVE) Urine Nitrite Negative (NEGATIVE) Urine Bilirubin 1+ (NEGATIVE) H Urine Ictotest Positive (NEGATIVE) Urine Urobilinogen 4 MG/DL (0.0-1.0) H Urine Leukocyte Esterase 1+ (NEGATIVE) H Urine RBC 0-2 /HPF (0 - 0) H Urine WBC 2-4 /HPF (0 - 0) Urine Squamous Epithelial Cells None /LPF (NONE/OCC) Urine Bacteria Many /HPF (NONE) H Urine Hyaline Casts 10-15 /LPF (NONE) H Troponin I 0.036 ng/mL (0.000-0.056) Urine Opiates Screen Negative (NEGATIVE) Urine Barbiturates Screen Negative (NEGATIVE) Phencyclidine (PCP) Screen Negative (NEGATIVE) Urine Amphetamines Screen Negative (NEGATIVE) Urine Benzodiazepines Screen Negative (NEGATIVE) Urine Cocaine Screen Negative (NEGATIVE) Urine Marijuana (THC) Screen Positive (NEGATIVE) H Sodium Level 139 MMOL/L (136-145) 133 MMOL/L (136-145) L Potassium Level 4.7 MMOL/L (3.5-5.1) 5.7 MMOL/L (3.5-5.1) H Chloride Level 111 MMOL/L (98-107) H 100 MMOL/L (98-107) Carbon Dioxide Level 13 MMOL/L (21-32) L 23 MMOL/L (21-32) Anion Gap 15 mmol/L (5-15) 10 mmol/L (5-15) Blood Urea Nitrogen 62 mg/dL (7-18) H 82 mg/dL (7-18) H Creatinine 1.7 MG/DL (0.55-1.30) H 2.5 MG/DL (0.55-1.30) H Estimat Glomerular Filtration Rate 49.3 mL/min (>60) 31.5 mL/min (>60) Glucose Level 31 MG/DL (74-106) *L 174 MG/DL (74-106) #H Calcium Level 6.5 MG/DL (8.5-10.1) L 8.7 MG/DL (8.5-10.1) # Total Bilirubin 3.0 MG/DL (0.2-1.0) H 3.1 MG/DL (0.2-1.0) H Direct Bilirubin 1.2 MG/DL (0.0-0.3) H 2.0 MG/DL (0.0-0.3) H Aspartate Amino Transf (AST/SGOT) 40 U/L (15-37) H 37 U/L (15-37) Alanine Aminotransferase (ALT/SGPT) 16 U/L (12-78) 23 U/L (12-78) Alkaline Phosphatase 95 U/L (46-116) 132 U/L (46-116) H Total Creatine Kinase 72 U/L (26-308) Creatine Kinase MB 1.0 NG/ML (0.0-3.6) Creatine Kinase MB Relative Index 1.3 Total Protein 6.4 G/DL (6.4-8.2) 8.8 G/DL (6.4-8.2) #H Albumin 2.4 G/DL (3.4-5.0) L 3.4 G/DL (3.4-5.0) Globulin 4.0 g/dL 5.4 g/dL Albumin/Globulin Ratio 0.6 (1.0-2.7) L 0.6 (1.0-2.7) L Triglycerides Level 62 MG/DL (30-150) Cholesterol Level 138 MG/DL (< 200) LDL Cholesterol 112 mg/dL (<100) H HDL Cholesterol 28 MG/DL (40-60) L Cholesterol/HDL Ratio 4.9 (3.3-4.4) H Thyroid Stimulating Hormone (TSH) 24.070 uiU/mL (0.358-3.740) Cortisol Pending Adrenocorticotropic Hormone Pending Microbiology Date/Time Source Procedure Growth Status 05/18/18 15:35 Urine,Clean Catch Urine Culture - Preliminary Gram Negative Bacillus 1 Resulted Rc Zhang MD May 19, 2018 15:14
--- NOTE | 2018-05-19 15:43 | Pre-Procedure Note/Attestation ---
Pre-Procedure Note/Attestation Complete Prior to Procedure Planned Procedure: not applicable Procedure Narrative: Paracentesis Indications for Procedure Pre-Operative Diagnosis: Ascites Attestation I attest that I discussed the nature of the procedure; its benefits; risks and complications; and alternatives (and the risks and benefits of such alternatives ), prior to the procedure, with the patient (or the patient's legal account maintenance representative). I attest that, if there was a reasonable possibility of needing a blood transfusion, the patient (or the patient's legal account maintenance representative) was given the [facility] standardized written summary, pursuant to the [place] Blood Safety Act ([place] Health and Safety Code # 1645, as amended). I attest that I re-evaluated the patient just prior to the surgery and that there has been no change in the patient's H&P, except as documented below: Lamont Wade MD May 19, 2018 15:43
--- NOTE | 2018-05-19 15:57 | GI Initial Consult Note ---
History of Present Illness General Date patient seen: May 19, 2018 Time patient seen: 16:47 Reason for Hospitalization: Chest Pain Referring physician: ROCÍO MOJICA Reason for Consultation: CIRRHOSIS Present Illness HPI This patient has a history of cirrhosis and ascites. The patient has recently admitted for ascites and had to undergo paracentesis. The patient presents with a distended abdomen and abdominal pain that feels similar to his previous ascites. He states that his abdomen is swollen and feels pressured. He denies recent illness. He denies fever or chills. He denies nausea or vomiting. He has no other complaints. GI consulted for anemia/cirrhosis. Pt seen, c/o of chest and abdominal pain. NAD, no active s/sx of N/V/D. C/o of abdominal distention. Hx of Hep C s/p treatment now negative, ?Cirrhosis, HTN, CHF, Pacemaker. Pt states he drinks beer and uses marijuana occasional. Denies tobacco use. Last colonoscopy 2 years ago. Home Meds Reported Medications Albuterol Sulfate (VENTOLIN HFA) 18 Gm Hfa.aer.ad, 1 PUFF INH EVERY 6 HOURS PRN for Shortness of Breath, #18 GM 0 Refills 05/18/18 Hydralazine Hcl* (HYDRALAZINE HCL*) 10 Mg Tablet, 10 MG ORAL DAILY, TAB 05/18/18 Omeprazole Magnesium (PRILOSEC OTC) 20 Mg Tablet.dr, 20 MG ORAL DAILY, TAB 05/18/18 Isosorbide Dinitrate (ISOSORBIDE DINITRATE*) 5 Mg Tablet, 5 MG ORAL BID, #30 TAB 0 Refills 05/18/18 Warfarin Sod* (WARFARIN SOD*) 1 Mg Tablet, 0.5 MG ORAL DAILY, TAB 05/18/18 Oxycodone Hcl* (OXYCODONE HCL*) 10 Mg Tablet, 10 MG ORAL DAILY PRN for For Pain , TAB 05/18/18 Furosemide* (LASIX*) 40 Mg Tablet, 40 MG ORAL DAILY, TAB 05/18/18 Gabapentin* (GABAPENTIN*) 100 Mg Capsule, 100 MG ORAL THREE TIMES A DAY, CAP 05/03/18 Multivitamins* (MULTIVITAMINS*) 1 Each Tablet, 1 TAB ORAL DAILY for supplement, TAB 05/03/18 Spironolactone* (SPIRONOLACTONE*) 100 Mg Tablet, 25 MG ORAL DAILY, TAB 01/20/18 Lisinopril (LISINOPRIL*) 5 Mg Tablet, 5 MG ORAL DAILY, TAB 01/20/18 Levothyroxine Sodium* (LEVOTHYROXINE SODIUM*) 125 Mcg Tablet, 125 MCG ORAL BEFORE BREAKFAST, TAB Take in the morning on an empty stomach, at least 30 minutes before food. 01/20/18 Digoxin* (DIGOXIN*) 125 Mcg Tablet, 125 MCG ORAL DAILY, TAB 09/29/17 Discontinued Reported Medications Furosemide* (LASIX*) 20 Mg Tablet, 20 MG ORAL DAILY, TAB 05/03/18 Carvedilol* (CARVEDILOL*) 3.125 Mg Tablet, 3.125 MG ORAL DAILY, TAB 05/03/18 Ondansetron* (ZOFRAN*) 4 Mg Tablet, 4 MG ORAL Q8HR PRN for Nausea & Vomiting, TAB 01/20/18 Rivaroxaban (XARELTO*) 10 Mg Tablet, 15 MG ORAL DAILY, #30 TAB 0 Refills 01/20/18 OXYCODONE HCl* (ROXICODONE*) 15 Mg Tablet, 15 MG ORAL Q6H PRN for For Pain, TAB 09/29/17 Discontinued Scripts Furosemide* (LASIX*) 40 Mg Tablet, 40 MG ORAL TWICE A DAY for 30 Days, TAB 0 Refills Prov:Andrzej Chavarria MD 05/11/18 Allergies: Coded Allergies: HYDROMORPHONE (Verified Allergy, Unknown, 12/28/10) Patient History History Provided By: Patient, Medical Record PMH Narrative History Provided By: Patient, Medical Record PM Narrative Past Surgical History: none Pertinent Family History: none Social History: Denies: smoking, alcohol use, drug use Immunizations: UTD Reviewed Nursing Documentation: PMH: Agreed; PSxH: Agreed Nursing Documentation-PMH Past Medical History: No History, Except For Hx Cardiac Problems: Yes Hx Hypertension: Yes Hx Pacemaker: Yes - Left upper chest defibrillator Hx COPD: Yes Hx Cancer: No Hx Gastrointestinal Problems: Yes Hx Neurological Problems: No Hx Cerebrovascular Accident: No Hx Transient Ischemic Attacks: No Pertinent Family History: none Social History: Denies: smoking, alcohol use, drug use, other Review of Systems All Other Systems: negative except mentioned in HPI Physical Exam Vital Signs Date Time Temp Pulse Resp B/P (MAP) Pulse Ox O2 Delivery O2 Flow Rate FiO2 12/3/18 14:59 97.0 83 13 132/98 98 Room Air 05/18/18 15:02 98 Sp02 EP Interpretation: reviewed, normal Labs Laboratory Tests Test 05/18/18 16:45 05/19/18 05:55 05/19/18 14:51 Sodium Level 139 MMOL/L (136-145) 133 MMOL/L (136-145) L Potassium Level 4.7 MMOL/L (3.5-5.1) 5.7 MMOL/L (3.5-5.1) H Chloride Level 111 MMOL/L (98-107) H 100 MMOL/L (98-107) Carbon Dioxide Level 13 MMOL/L (21-32) L 23 MMOL/L (21-32) Anion Gap 15 mmol/L (5-15) 10 mmol/L (5-15) Blood Urea Nitrogen 62 mg/dL (7-18) H 82 mg/dL (7-18) H Creatinine 1.7 MG/DL (0.55-1.30) H 2.5 MG/DL (0.55-1.30) H Estimat Glomerular Filtration Rate 49.3 mL/min (>60) 31.5 mL/min (>60) Glucose Level 31 MG/DL (74-106) *L 174 MG/DL (74-106) #H Calcium Level 6.5 MG/DL (8.5-10.1) L 8.7 MG/DL (8.5-10.1) # Total Bilirubin 3.0 MG/DL (0.2-1.0) H 3.1 MG/DL (0.2-1.0) H Direct Bilirubin 1.2 MG/DL (0.0-0.3) H 2.0 MG/DL (0.0-0.3) H Aspartate Amino Transf (AST/SGOT) 40 U/L (15-37) H 37 U/L (15-37) Alanine Aminotransferase (ALT/SGPT) 16 U/L (12-78) 23 U/L (12-78) Alkaline Phosphatase 95 U/L (46-116) 132 U/L (46-116) H Total Creatine Kinase 72 U/L (26-308) Creatine Kinase MB 1.0 NG/ML (0.0-3.6) Creatine Kinase MB Relative Index 1.3 Total Protein 6.4 G/DL (6.4-8.2) 8.8 G/DL (6.4-8.2) #H Albumin 2.4 G/DL (3.4-5.0) L 3.4 G/DL (3.4-5.0) Globulin 4.0 g/dL 5.4 g/dL Albumin/Globulin Ratio 0.6 (1.0-2.7) L 0.6 (1.0-2.7) L White Blood Count 5.8 K/UL (4.8-10.8) Red Blood Count 3.98 M/UL (4.70-6.10) L Hemoglobin 10.7 G/DL (14.2-18.0) L Hematocrit 33.9 % (42.0-52.0) L Mean Corpuscular Volume 85 FL (80-99) Mean Corpuscular Hemoglobin 26.8 PG (27.0-31.0) L Mean Corpuscular Hemoglobin Concent 31.4 G/DL (32.0-36.0) L Red Cell Distribution Width 20.4 % (11.6-14.8) H Platelet Count 248 K/UL (150-450) Mean Platelet Volume 5.8 FL (6.5-10.1) L Neutrophils (%) (Auto) 69.4 % (45.0-75.0) Lymphocytes (%) (Auto) 14.1 % (20.0-45.0) L Monocytes (%) (Auto) 14.9 % (1.0-10.0) H Eosinophils (%) (Auto) 0.7 % (0.0-3.0) Basophils (%) (Auto) 0.9 % (0.0-2.0) Triglycerides Level 62 MG/DL (30-150) Cholesterol Level 138 MG/DL (< 200) LDL Cholesterol 112 mg/dL (<100) H HDL Cholesterol 28 MG/DL (40-60) L Cholesterol/HDL Ratio 4.9 (3.3-4.4) H Thyroid Stimulating Hormone (TSH) 24.070 uiU/mL (0.358-3.740) Cortisol Pending Adrenocorticotropic Hormone Pending Body Fluid Source Pending Body Fluid Volume Pending Body Fluid Appearance Pending Body Fluid RBC Pending Body Fluid Total Nucleated Cells Pending Body Fluid Polynuclear WBCs (%) Pending Body Fluid Mononuclear WBCs (%) Pending Body Fluid Mesothelial Cells (%) Pending General Appearance: well appearing, no apparent distress, alert Head: normocephalic EENT: PERRL/EOMI, normal ENT inspection Neck: supple Respiratory: normal breath sounds, no respiratory distress Cardiovascular: normal rate Gastrointestinal: normal inspection, non tender, soft, normal bowel sounds, non -distended, distended Rectal: deferred Genitourinary: deferred Musculoskeletal: normal inspection, back normal Neurologic: normal inspection, alert, oriented x3, responsive Psychiatric: normal inspection, judgement/insight normal, memory normal Skin: normal inspection, normal color, no rash, warm/dry, palpation normal, well hydrated Lymphatic: normal inspection, no adenopathy Current Medications Current Medications Medications (Trade) Dose Ordered Sig/Allyn Route PRN Reason Start Time Stop Time Status Last Admin Dose Admin Acetaminophen (Tylenol) 650 mg Q4H PRN ORAL fever 05/18/18 22:30 06/17/18 22:29 Al Hydroxide/Mg Hydroxide (Mylanta II) 30 ml Q6H PRN ORAL dyspepsia 05/18/18 22:30 06/17/18 22:29 Ceftriaxone Sodium 1 gm/ Dextrose 55 ml @ 110 mls/hr Q24H IVPB 05/19/18 16:00 05/26/18 15:59 Dextrose (Dextrose 50%) STAT PRN IV Hypoglycemia 05/18/18 22:30 06/17/18 22:29 Dextrose/Sodium Chloride 1,000 ml @ 50 mls/hr Q20H IV 05/18/18 18:00 06/17/18 17:59 05/18/18 18:18 Digoxin (Lanoxin) 0.125 mg DAILY ORAL 05/19/18 09:00 06/18/18 08:59 Furosemide (Lasix) 40 mg EVERY 12 HOURS IV 05/19/18 21:00 06/18/18 20:59 Gabapentin (Neurontin) 100 mg THREE TIMES A DAY ORAL 05/19/18 09:00 06/18/18 08:59 05/19/18 13:51 Levothyroxine Sodium (Synthroid) 50 mcg DAILY@0630 ORAL 05/20/18 06:30 06/19/18 06:29 Levothyroxine Sodium (Synthroid) 125 mcg BEFORE BREAKFAST ORAL 05/20/18 06:30 06/18/18 06:29 Lorazepam (Ativan 2mg/ml 1ml) 0.5 mg Q4H PRN IV For Anxiety 05/18/18 22:30 05/25/18 22:29 05/18/18 23:22 Ondansetron HCl (Zofran) 4 mg Q6H PRN IVP Nausea & Vomiting 05/18/18 22:30 06/17/18 22:29 Oxycodone HCl (Roxicodone) 10 mg Q8H PRN ORAL Severe Pain (Pain Scale 7-10) 05/19/18 10:15 05/26/18 10:14 05/19/18 10:52 Polyethylene Glycol (Miralax) 17 gm HSPRN PRN ORAL Constipation 05/18/18 22:30 06/17/18 22:29 Spironolactone (Aldactone) 25 mg DAILY ORAL 05/19/18 09:00 06/18/18 08:59 05/19/18 10:02 Zolpidem Tartrate (Ambien) 5 mg HSPRN PRN ORAL Insomnia 05/18/18 22:30 05/25/18 22:29 GI: Plan Problems: (1) Hypoglycemia (2) Anemia (3) Hepatitis C (4) Cirrhosis (5) Right-sided heart failure (6) Ascites Plan hx of Hep C in 2014 s/p tx >> hep panel redrawn in 2016 was negative s/p colonoscopy with one polyp 06/26/16 paracentesis ordered >> r/o SBP diuresis low sodium diet bowel regime zofran prn ppi pain mgmt fu labs repeat colonoscopy in [address] Ryan. Thank you for this patient referral, we will follow. The patient was seen and examined at bedside and all new and available data was reviewed in the patients chart. I agree with the above findings, impression and plan. (Patient seen earlier today. Signature stamp does not reflect patient encounter time.). - MD Marge Sommer,[facility] CLARIFICATION OPERATOR May 19, 2018 15:57
--- NOTE | 2018-05-19 15:59 | Brief Operative Note ---
Immediate Post Operative Note Operative Note Chief Complaint: abd distention Pre-op Diagnosis: Ascites Procedure: Paracentesis Post-op Diagnosis: same as pre-op Surgeon: Josette WADE Anesthesia: local Specimen: yes - clear yellow fluid Complications: none Fluids: none Packing: none Implant(s) used?: No Lamont Wade MD May 19, 2018 15:59
[2018-05-19 16:00] VITALS: BP 117/87
[2018-05-19] MEDS ORDERED: cefTRIAXone 1 GM in D5W 55 ML IVPB SCH (16:00)
--- NOTE | 2018-05-19 16:06 | Diagnostic Imaging Report ---
Indications: Ascites Technique: Ultrasound used to localize optimal puncture site. Sterile prepping and draping right lower quadrant. Local anesthesia with 1% lidocaine. Under real-time ultrasound guidance, puncture peritoneal space using paracentesis needle. Stylet removed. Catheter placed to vacuum bottle suction. Total 1.8 liters of clear yellow fluid aspirated. Patient tolerated procedure well, without immediate complication. Findings: Followup sonography demonstrates decreased peritoneal fluid with some residual Impression: Successful ultrasound-guided paracentesis, yielding 1.8 liters of clear yellow fluid
--- NOTE | 2018-05-19 19:30 | Consultation ---
DATE OF CONSULTATION: ENDOCRINOLOGY CONSULTATION CONSULTING PHYSICIAN: Orestes Kyle M.D. REFERRING PHYSICIAN: Winston Jin M.D. REASON FOR CONSULTATION: Hypoglycemia as well as abnormal thyroid function. HISTORY OF PRESENT ILLNESS: The patient is a 63-year-old male with history of cirrhosis and ascites with recent admission to [facility]. The patient re-presented to [place] emergency room yesterday with hypoglycemia and recurrence of the ascites. TSH is 24. Glucose was low. Therefore, Endocrinology was consulted. PAST MEDICAL HISTORY: 1. Coronary artery disease. 2. Previous MA. 3. CHF. 4. GERD. 5. Cirrhosis. 6. Hep C. SOCIAL HISTORY: No smoking, alcohol, or drug use. FAMILY HISTORY: Noncontributory. REVIEW OF SYSTEMS: As per history of present illness. PHYSICAL EXAMINATION: VITAL SIGNS: Blood pressure is 101/75, respiratory rate 17, temperature 96, pulse oximetry 97. HEENT: Pupils are equal and reactive to light. Sclerae anicteric. NECK: Positive for JVD. HEART: Distant heart sounds. ABDOMEN: Positive bowel sounds. Distended. EXTREMITIES: Positive for edema. LABORATORY VALUES: WBC 5, hemoglobin 10, hematocrit 33, and platelet count 348. Sodium 133, potassium 5.7, chloride 100, bicarbonate 23, BUN 82, creatinine 2.5, glucose of 174, calcium 8.7. TSH of 24. DIAGNOSES: 1. Decompensated cirrhosis. 2. Hypothyroidism with elevated TSH. 3. Hypoglycemia without any history of diabetes. 4. Hyponatremia and hyperkalemia. DISCUSSION: Upon review of the recent admission records, the patient's TSH was 13 and now is it is up to 24. So, it is clear that the current dosage that the patient is taking is not enough, we will increase the levothyroxine dose of 125 to 175 mcg daily. We will repeat the TSH in the next few weeks. Hypoglycemia is most likely due to liver disease and depletion of the liver glycogen store. The patient will be supported with the nutritional support and diabetic nutrition is important. Glucose will be monitored without insulin coverage. The patient has hyponatremia and hyperkalemia, which is most likely due to spironolactone. We would like to rule out underlying adrenal insufficiency. The patient's cortisol level will be obtained. Thank you, Dr. Jin, for the courtesy of this consultation. Orestes Kyle M.D. DR: Luciano JOB#: [id number] CC: CAMPBELL
--- NOTE | 2018-05-19 19:42 | Cardiology Report ---
APPROVED REPORT EKG Measurement Heart [id number] Atrial fibrillation intermittent ventricual pacing
[2018-05-19 20:00] VITALS: BP 105/73
--- NOTE | 2018-05-19 20:00 | History and Physical Report ---
DATE OF ADMISSION: 05/18/2018 TIME: 12 noon. CONSULTANTS: 1. Andrzej Chavarria M.D. 2. Rc Zhang M.D. 3. Orestes Kyle M.D. 4. Beto Ryan M.D. 5. Marcel Blanton M.D. CHIEF COMPLAINT: Shortness of breath and ascites. BRIEF HISTORY: This is a 63-year-old male, who lives at home a week ago was hospitalized here for similar problems, apparently developed abdominal ascites again, became very short of breath, came to [facility], diagnosed with the above, and admitted to medical floor for further treatment. Awaiting paracentesis. Currently, calm and slightly tired in bed. No complaint. REVIEW OF SYSTEMS: No chest pain. Slight short of breath. No nausea, vomiting, or diarrhea. PAST MEDICAL HISTORY: Include ascites, cirrhosis, hepatitis C, also CHF, renal failure, and hypothyroid. PAST SURGICAL HISTORY: Multiple paracenteses. ALLERGIES: Dilaudid. SOCIAL HISTORY: No smoking. No alcohol. No intravenous drug abuse. FAMILY HISTORY: Noncontributory. PHYSICAL EXAMINATION: GENERAL: Calm in bed, oriented x3, slightly tired. VITAL SIGNS: Temperature is 97, pulse 59, respirations 20, and blood pressure 100/74. CARDIOVASCULAR: No murmur. LUNGS: Poor air exchange. ABDOMEN: Bowel sounds slightly distant and soft. No guarding. No rigidity. No rebound. EXTREMITIES: No cyanosis, clubbing, or edema. NEUROLOGIC: The patient moves all extremities, slightly weak. LABORATORY AND DIAGNOSTIC DATA: Hemoglobin 10.7, otherwise CBC is normal. BMP show sodium 133, potassium , BUN and creatinine 82 and 2.5, and glucose 174. Troponin 0.036. Albumin 2.4. TSH is . INR is 1.9 and PTT is 25. Urinalysis shows 1+ leukocyte esterase. MEDICATIONS: Include levothyroxine, oxycodone, digoxin, furosemide, gabapentin, hydralazine, lisinopril, spironolactone, Zofran, lorazepam, and Ambien. ASSESSMENT: 1. Shortness of breath. 2. Ascites. 3. Cirrhosis. 4. Hypoglycemia. 5. Hypothyroid. 6. Hepatitis C. 7. CHF. 8. Renal failure. 9. Anemia. 10. Hyperkalemia. 11. UTI. PLAN: 1. Continue previous medications. 2. O2 and pulmonary treatment. 3. Antibiotic per Infectious Disease. 4. Blood pressure and blood sugar control. 5. Dietary followup. 6. Nephrology followup. 7. Paracentesis is pending. 8. We will continue to follow the patient. Shahid Cherry D.O. DR: CESIA JOB#: [id number] CC:
[2018-05-19] MEDS ORDERED: Lidocaine 1% Plain 30 ml INJ PRN (20:15)
[2018-05-19] MEDS ORDERED: Heparin 2000 units/Ns 1000ml INJ PRN (20:15)
[2018-05-20] VITALS (7 sets, daily range): BP systolic 113–129; BP diastolic 59–83
[2018-05-20] MEDS: oxyCODONE 5mg IR tab ORAL PRN ×3 (05:50→23:19)
[2018-05-20] MEDS ORDERED: DOBUTamine 250mg/250ml Premix 250 ML IV SCH (06:00)
[2018-05-20] MEDS ORDERED: Levothyroxine 125mcg tab ORAL SCH (06:30)
[2018-05-20 06:34] LABS: BASOPHILS % (AUTO) 1.6 % (0.0-2.0); EOSINOPHILS % (AUTO) 1.4 % (0.0-3.0); HEMATOCRIT 33.5 % (42.0-52.0); HEMOGLOBIN 10.5 G/DL (14.2-18.0); LYMPHOCYTES % (AUTO) 13.3 % (20.0-45.0); MEAN CORPUSCULAR VOLUME 86 FL (80-99); NEUTROPHILS % (AUTO) 70.7 % (45.0-75.0); PLATELET COUNT 222 K/UL (150-450); RED BLOOD COUNT 3.92 M/UL (4.70-6.10); RED CELL DISTRIBUTION WIDTH 20.6 % (11.6-14.8); WHITE BLOOD COUNT 5.5 K/UL (4.8-10.8)
[2018-05-20 06:54] LABS: ANION GAP 10 mmol/L (5-15); BLOOD UREA NITROGEN 85 mg/dL (7-18); CALCIUM 8.9 MG/DL (8.5-10.1); CARBON DIOXIDE 23 MMOL/L (21-32); CHLORIDE 101 MMOL/L (98-107); CREATININE 2.2 MG/DL (0.55-1.30); POTASSIUM 5.4 MMOL/L (3.5-5.1); SODIUM 134 MMOL/L (136-145)
--- NOTE | 2018-05-20 07:25 | General Progress Note ---
Assessment/Plan Problem List: (1) Hypoglycemia ICD Codes: E16.2 - Hypoglycemia, unspecified SNOMED: 378035933 (2) Hepatitis C ICD Codes: B19.20 - Hepatitis C SNOMED: 22800593 (3) Hypothyroidism ICD Codes: E03.9 - Hypothyroidism SNOMED: 30004446 (4) Cirrhosis ICD Codes: K74.60 - Unspecified cirrhosis of liver SNOMED: 05554994 (5) Ascites ICD Codes: R18.8 - Ascites SNOMED: 233941959 Assessment/Plan no recurrence of hypoglycemia continue blood glucose monitoring w/o insulin coverage continue Levothyroxine 175 - increased from 125 mcg repeat thyroid function in 1-2 weeks Subjective ROS Limited/Unobtainable: Yes Allergies: Coded Allergies: HYDROMORPHONE (Verified Allergy, Unknown, 12/28/10) Subjective events noted Objective Last 24 Hour Vital Signs Date Time Temp Pulse Resp B/P (MAP) Pulse Ox O2 Delivery O2 Flow Rate FiO2 05/20/18 04:00 97.1 75 18 113/79 (90) 98 05/20/18 00:00 98.0 75 18 120/83 (95) 100 05/19/18 21:00 Room Air 05/19/18 20:00 97.4 100 18 105/73 (84) 99 05/19/18 16:00 98.4 78 19 117/87 (97) 100 05/19/18 12:00 97.0 79 19 113/66 (82) 100 05/19/18 09:00 Room Air 05/19/18 09:00 100/74 05/19/18 09:00 100/74 05/19/18 09:00 59 05/19/18 08:00 97.5 77 20 107/71 (83) 99 Intake and Output 05/19/18 05/20/18 18:59 06:59 Intake Total 240 ml 55 ml Output Total 600 ml Balance 240 ml -545 ml Intake Oral 240 ml IV Total 55 ml Output Urine Total 600 ml # Voids 3 Laboratory Tests 05/19/18 14:51: Body Fluid Source Paracentesis, Body Fluid Volume 24, Body Fluid Appearance Hazy , Body Fluid RBC 795, Body Fluid Total Nucleated Cells 200, Body Fluid Polynuclear WBCs (%) 22, Body Fluid Mononuclear WBCs (%) 44, Body Fluid Mesothelial Cells (%) 34 05/20/18 05:45: White Blood Count 5.5, Red Blood Count 3.92L, Hemoglobin 10.5L, Hematocrit 33.5L , Mean Corpuscular Volume 86, Mean Corpuscular Hemoglobin 26.7L, Mean Corpuscular Hemoglobin Concent 31.2L, Red Cell Distribution Width 20.6H, Platelet Count 222, Mean Platelet Volume 6.3L, Neutrophils (%) (Auto) 70.7, Lymphocytes (%) (Auto) 13.3L, Monocytes (%) (Auto) 13.0H, Eosinophils (%) (Auto ) 1.4, Basophils (%) (Auto) 1.6, Sodium Level 134L, Potassium Level 5.4H, Chloride Level 101, Carbon Dioxide Level 23, Anion Gap 10, Blood Urea Nitrogen 85H, Creatinine 2.2H, Estimat Glomerular Filtration Rate 36.6, Glucose Level 183H, Calcium Level 8.9, Digoxin Level [Pending] Height (Feet): 6 Height (Inches): 0.00 Weight (Pounds): 151 General Appearance: no apparent distress Neck: normal alignment Respiratory/Chest: decreased breath sounds Abdomen: distended Edema: 2+ Arm (L), 2+ Arm (R), 2+ Leg (L), 2+ Leg (R), 2+ Pedal (L), 2+ Pedal ( R), 2+ Generalized Objective Current Medications Medications (Trade) Dose Ordered Sig/Allyn Route PRN Reason Start Time Stop Time Status Last Admin Dose Admin Acetaminophen (Tylenol) 650 mg Q4H PRN ORAL fever 05/18/18 22:30 06/17/18 22:29 Al Hydroxide/Mg Hydroxide (Mylanta II) 30 ml Q6H PRN ORAL dyspepsia 05/18/18 22:30 06/17/18 22:29 Ceftriaxone Sodium 1 gm/ Dextrose 55 ml @ 110 mls/hr Q24H IVPB 05/19/18 16:00 05/26/18 15:59 05/19/18 18:16 Chlorhexidine Gluconate (Kalani-Hex 2%) 1 applic DAILY@2000 TOPIC 05/20/18 20:00 06/19/18 19:59 Dextrose (Dextrose 50%) STAT PRN IV Hypoglycemia 05/18/18 22:30 06/17/18 22:29 Digoxin (Lanoxin) 0.125 mg DAILY ORAL 05/19/18 09:00 06/18/18 08:59 Dobutamine HCl 250 ml @ 23.814 mls/ hr [id number] IV 05/20/18 06:00 06/19/18 05:59 UNV Furosemide (Lasix) 40 mg EVERY 12 HOURS IV 05/19/18 21:00 06/18/18 20:59 05/19/18 21:01 Gabapentin (Neurontin) 100 mg THREE TIMES A DAY ORAL 05/19/18 09:00 06/18/18 08:59 05/19/18 18:15 Heparin Sodium/ Sodium Chloride (Heparin 2000 units/Ns 1000ml premix) 2,000 unit ONCE PRN INJ PICC LINE PLACEMENT 05/19/18 20:15 05/20/18 23:59 Levothyroxine Sodium (Synthroid) 50 mcg DAILY@0630 ORAL 05/20/18 06:30 06/19/18 06:29 05/20/18 05:49 Levothyroxine Sodium (Synthroid) 125 mcg BEFORE BREAKFAST ORAL 05/20/18 06:30 06/18/18 06:29 05/20/18 05:49 Lidocaine HCl (Xylocaine 1% 30ml) 30 ml ONCE PRN INJ PICC LINE PLACEMENT 05/19/18 20:15 05/20/18 23:59 Lorazepam (Ativan 2mg/ml 1ml) 0.5 mg Q4H PRN IV For Anxiety 05/18/18 22:30 05/25/18 22:29 05/18/18 23:22 Ondansetron HCl (Zofran) 4 mg Q6H PRN IVP Nausea & Vomiting 05/18/18 22:30 06/17/18 22:29 Oxycodone HCl (Roxicodone) 10 mg Q8H PRN ORAL Severe Pain (Pain Scale 7-10) 05/19/18 10:15 05/26/18 10:14 05/20/18 05:50 Polyethylene Glycol (Miralax) 17 gm HSPRN PRN ORAL Constipation 05/18/18 22:30 06/17/18 22:29 Spironolactone (Aldactone) 25 mg DAILY ORAL 05/19/18 09:00 06/18/18 08:59 05/19/18 10:02 Zolpidem Tartrate (Ambien) 5 mg HSPRN PRN ORAL Insomnia 05/18/18 22:30 05/25/18 22:29 Item Value Date Time Glucose Level 183 MG/DL H 05/20/18 0545 Bedside Blood Glucose 177 mg/dl H 05/19/18 1130 Glucose Level 174 MG/DL H # 05/19/18 0555 Orestes Kyle MD May 20, 2018 07:25
[2018-05-20] MEDS: Digoxin 0.125mg tab ORAL SCH (08:52)
[2018-05-20] MEDS: Spironolactone 50mg tab ORAL SCH (08:52)
--- NOTE | 2018-05-20 09:22 | General Progress Note ---
Assessment/Plan Problem List: (1) Anemia ICD Codes: D64.9 - Anemia, unspecified SNOMED: 227585963 (2) Hepatitis C ICD Codes: B19.20 - Hepatitis C SNOMED: 36269064 (3) Emphysema lung ICD Codes: J43.9 - Emphysema lung SNOMED: 73127074 (4) ICD (implantable cardioverter-defibrillator) in place ICD Codes: Z95.810 - Presence of automatic (implantable) cardiac defibrillator SNOMED: 523054001, 213669841 (5) Hypothyroidism ICD Codes: E03.9 - Hypothyroidism SNOMED: 57045530 (6) Ascites ICD Codes: R18.8 - Ascites SNOMED: 842209847 Assessment/Plan s/p paracentesis 1.8 lit fu abd exam cardiac ascites fu cardiology Subjective ROS Limited/Unobtainable: Yes Allergies: Coded Allergies: HYDROMORPHONE (Verified Allergy, Unknown, 12/28/10) Objective Last 24 Hour Vital Signs Date Time Temp Pulse Resp B/P (MAP) Pulse Ox O2 Delivery O2 Flow Rate FiO2 05/20/18 08:52 107 05/20/18 08:00 96.8 107 18 129/73 (91) 100 05/20/18 04:00 97.1 75 18 113/79 (90) 98 05/20/18 00:00 98.0 75 18 120/83 (95) 100 05/19/18 21:00 Room Air 05/19/18 20:00 97.4 100 18 105/73 (84) 99 05/19/18 16:00 98.4 78 19 117/87 (97) 100 05/19/18 12:00 97.0 79 19 113/66 (82) 100 Intake and Output 05/19/18 05/20/18 19:00 07:00 Intake Total 240 ml 55 ml Output Total 600 ml Balance 240 ml -545 ml Intake Oral 240 ml IV Total 55 ml Output Urine Total 600 ml # Voids 3 Laboratory Tests 05/19/18 14:51: Body Fluid Source Paracentesis, Body Fluid Volume 24, Body Fluid Appearance Hazy , Body Fluid RBC 795, Body Fluid Total Nucleated Cells 200, Body Fluid Polynuclear WBCs (%) 22, Body Fluid Mononuclear WBCs (%) 44, Body Fluid Mesothelial Cells (%) 34 05/20/18 05:45: White Blood Count 5.5, Red Blood Count 3.92L, Hemoglobin 10.5L, Hematocrit 33.5L , Mean Corpuscular Volume 86, Mean Corpuscular Hemoglobin 26.7L, Mean Corpuscular Hemoglobin Concent 31.2L, Red Cell Distribution Width 20.6H, Platelet Count 222, Mean Platelet Volume 6.3L, Neutrophils (%) (Auto) 70.7, Lymphocytes (%) (Auto) 13.3L, Monocytes (%) (Auto) 13.0H, Eosinophils (%) (Auto ) 1.4, Basophils (%) (Auto) 1.6, Sodium Level 134L, Potassium Level 5.4H, Chloride Level 101, Carbon Dioxide Level 23, Anion Gap 10, Blood Urea Nitrogen 85H, Creatinine 2.2H, Estimat Glomerular Filtration Rate 36.6, Glucose Level 183H, Calcium Level 8.9, Digoxin Level 0.6 Height (Feet): 6 Height (Inches): 0.00 Weight (Pounds): 151 General Appearance: alert EENT: normal ENT inspection Neck: supple Cardiovascular: normal rate, diastolic murmur Respiratory/Chest: decreased breath sounds Abdomen: normal bowel sounds, non tender, soft Extremities: non-tender Beto Ryan MD May 20, 2018 09:22
[2018-05-20] MEDS ORDERED: Mylanta II UD 30ml ORAL PRN (10:30)
[2018-05-20] MEDS ORDERED: LORazepam Inj 2mg/ml 1ml IV PRN (10:30)
[2018-05-20] MEDS ORDERED: Sodium Polystyrene Sulfonate 15gm Powder ORAL SCH (10:59)
--- NOTE | 2018-05-20 11:12 | Pre-Procedure Note/Attestation ---
Pre-Procedure Note/Attestation Complete Prior to Procedure Planned Procedure: not applicable Procedure Narrative: PICC Indications for Procedure Pre-Operative Diagnosis: needs fci IV access Attestation I attest that I discussed the nature of the procedure; its benefits; risks and complications; and alternatives (and the risks and benefits of such alternatives ), prior to the procedure, with the patient (or the patient's legal wireless sales representative). I attest that, if there was a reasonable possibility of needing a blood transfusion, the patient (or the patient's legal wireless sales representative) was given the [facility] standardized written summary, pursuant to the [employer] [place] Blood Safety Act ([place] Health and Safety Code # 1645, as amended). I attest that I re-evaluated the patient just prior to the surgery and that there has been no change in the patient's H&P, except as documented below: Lamont Wade MD May 20, 2018 11:12
--- NOTE | 2018-05-20 11:14 | Brief Operative Note ---
Immediate Post Operative Note Operative Note Pre-op Diagnosis: needs group home IV access Procedure: PICC Post-op Diagnosis: same as pre-op Surgeon: Josette WADE Specimen: none Complications: none Fluids: none Implant(s) used?: No Lamont Wade MD May 20, 2018 11:14
--- NOTE | 2018-05-20 11:18 | Diagnostic Imaging Report ---
Indications: Needs long-term IV access Technique: Ultrasound confirms patent although incompletely compressible right basilic vein. Total sterile technique, including sterile probe cover and sterile gel, hat, mask, sterile gown, large sterile drape, and preparation with 2% chlorhexidine utilized. Local anesthesia with 1% lidocaine. Under real-time ultrasound guidance, puncture distal vein using 21-gauge needle, documented and archived, passage 0.018 guidewire under direct fluoroscopy, which was used to determine appropriate catheter length, exchange for 5 Bhutanese peel-away sheath. 5 Bhutanese Bard dual-lumen power PICC cut to 41 cm. It was inserted through the peel-away sheath. Peel-away sheath and guidewire removed. Catheter fixed to the skin. Both catheter ports aspirated and flushed. Patient tolerated procedure well, without immediate complication. Digital radiograph documents satisfactory catheter tip position, at the cavoatrial junction. Total fluoroscopy time zero point minutes. Total dose area product 12 dGycm2 Total number of images: 1 Impression: Successful placement of right arm PICC under sonographic and fluoroscopic guidance, as described above.
--- NOTE | 2018-05-20 11:55 | Cardiac Electrophysiology PN ---
Assessment/Plan Assessment/Plan 1. Exacerbation of congestive heart failure with EF only 10%. Continue Aldactone and Lasix Start Dobutamine drip after PICC line placement. Off Coreg while on Dobutamine. 2. Status post [place] Bi-V ICD. Interrogation recently showed normal LV function. 3. Hepatitis and ascites. s/p 1.7 liter paracentesis 4. Persistent atrial fibrillation, status post ablation on Xarelto 5. Hypothyroidism on Synthroid. 6. Acute renal failure. Start Dobutamine. OFF ACEI or ARB EDMAR RN Subjective Subjective Undergoing PICC line placement to be started on Dobutamine drip. Objective Last 24 Hour Vital Signs Date Time Temp Pulse Resp B/P (MAP) Pulse Ox O2 Delivery O2 Flow Rate FiO2 05/20/18 09:00 Room Air 05/20/18 08:52 107 05/20/18 08:00 96.8 107 18 129/73 (91) 100 05/20/18 04:00 97.1 75 18 113/79 (90) 98 05/20/18 00:00 98.0 75 18 120/83 (95) 100 05/19/18 21:00 Room Air 05/19/18 20:00 97.4 100 18 105/73 (84) 99 05/19/18 16:00 98.4 78 19 117/87 (97) 100 05/19/18 12:00 97.0 79 19 113/66 (82) 100 Intake and Output 05/19/18 05/20/18 19:00 07:00 Intake Total 240 ml 55 ml Output Total 600 ml Balance 240 ml -545 ml Intake Oral 240 ml IV Total 55 ml Output Urine Total 600 ml # Voids 3 Laboratory Tests Test 05/19/18 14:51 05/20/18 05:45 Body Fluid Source Paracentesis Body Fluid Volume 24 mL Body Fluid Appearance Hazy (Clear) Body Fluid RBC 795 /CUMM Body Fluid Total Nucleated Cells 200 /CUMM Body Fluid Polynuclear WBCs (%) 22 % Body Fluid Mononuclear WBCs (%) 44 % Body Fluid Mesothelial Cells (%) 34 % Body Fluid Albumin Pending White Blood Count 5.5 K/UL (4.8-10.8) Red Blood Count 3.92 M/UL (4.70-6.10) L Hemoglobin 10.5 G/DL (14.2-18.0) L Hematocrit 33.5 % (42.0-52.0) L Mean Corpuscular Volume 86 FL (80-99) Mean Corpuscular Hemoglobin 26.7 PG (27.0-31.0) L Mean Corpuscular Hemoglobin Concent 31.2 G/DL (32.0-36.0) L Red Cell Distribution Width 20.6 % (11.6-14.8) H Platelet Count 222 K/UL (150-450) Mean Platelet Volume 6.3 FL (6.5-10.1) L Neutrophils (%) (Auto) 70.7 % (45.0-75.0) Lymphocytes (%) (Auto) 13.3 % (20.0-45.0) L Monocytes (%) (Auto) 13.0 % (1.0-10.0) H Eosinophils (%) (Auto) 1.4 % (0.0-3.0) Basophils (%) (Auto) 1.6 % (0.0-2.0) Sodium Level 134 MMOL/L (136-145) L Potassium Level 5.4 MMOL/L (3.5-5.1) H Chloride Level 101 MMOL/L (98-107) Carbon Dioxide Level 23 MMOL/L (21-32) Anion Gap 10 mmol/L (5-15) Blood Urea Nitrogen 85 mg/dL (7-18) H Creatinine 2.2 MG/DL (0.55-1.30) H Estimat Glomerular Filtration Rate 36.6 mL/min (>60) Glucose Level 183 MG/DL (74-106) H Calcium Level 8.9 MG/DL (8.5-10.1) Digoxin Level 0.6 NG/ML (0.5-2.0) Microbiology Date/Time Source Procedure Growth Status 05/18/18 15:35 Urine,Clean Catch Urine Culture - Preliminary Klebsiella Pneumoniae Gram Negative Bacillus 2 Gram Negative Bacillus 3 Resulted Objective HEAD AND NECK: Positive jugular venous distention. LUNGS: Decreased breath sounds with basilar rales. CARDIOVASCULAR: Regular S1 and S2 with no gallop or murmur. Defibrillator in left subclavian. ABDOMEN: Ascites. EXTREMITIES: 1+ pitting edema. Rc Zhang MD May 20, 2018 11:55
[2018-05-20] MEDS: DOBUTamine 250mg/250ml Premix 250 ML IV SCH (11:58)
--- NOTE | 2018-05-20 13:53 | General Progress Note ---
Assessment/Plan Problem List: (1) Ascites ICD Codes: R18.8 - Ascites SNOMED: 945242556 (2) Cardiomyopathy due to hypertension, with heart failure ICD Codes: I11.0 - Cardiomyopathy due to hypertension, with heart failure; I42.9 - Cardiomyopathy, unspecified SNOMED: 34088159 (3) Cirrhosis ICD Codes: K74.60 - Unspecified cirrhosis of liver SNOMED: 36409419 (4) Hypothyroidism ICD Codes: E03.9 - Hypothyroidism SNOMED: 44210337 (5) Hepatitis C ICD Codes: B19.20 - Hepatitis C SNOMED: 25130609 (6) Anemia ICD Codes: D64.9 - Anemia, unspecified SNOMED: 375683974 (7) Hypoglycemia ICD Codes: E16.2 - Hypoglycemia, unspecified SNOMED: 137720104 Status: unchanged Assessment/Plan otpt diet pain control gi f/u cbc bmp am Subjective Constitutional: Reports: weakness Allergies: Coded Allergies: HYDROMORPHONE (Verified Allergy, Unknown, 12/28/10) All Systems: reviewed and negative except above Subjective sl nausea and abd pain Objective Last 24 Hour Vital Signs Date Time Temp Pulse Resp B/P (MAP) Pulse Ox O2 Delivery O2 Flow Rate FiO2 05/20/18 12:00 Room Air 05/20/18 12:00 97.4 108 20 117/59 (78) 100 05/20/18 12:00 107 05/20/18 11:58 117/59 05/20/18 10:45 89 05/20/18 10:30 97.7 84 21 121/77 (92) 98 05/20/18 09:00 Room Air 05/20/18 08:52 107 05/20/18 08:00 96.8 107 18 129/73 (91) 100 05/20/18 04:00 97.1 75 18 113/79 (90) 98 05/20/18 00:00 98.0 75 18 120/83 (95) 100 05/19/18 21:00 Room Air 05/19/18 20:00 97.4 100 18 105/73 (84) 99 05/19/18 16:00 98.4 78 19 117/87 (97) 100 Intake and Output 05/19/18 05/20/18 19:00 07:00 Intake Total 240 ml 55 ml Output Total 600 ml Balance 240 ml -545 ml Intake Oral 240 ml IV Total 55 ml Output Urine Total 600 ml # Voids 3 Laboratory Tests 05/19/18 14:51: Body Fluid Source Paracentesis, Body Fluid Volume 24, Body Fluid Appearance Hazy , Body Fluid RBC 795, Body Fluid Total Nucleated Cells 200, Body Fluid Polynuclear WBCs (%) 22, Body Fluid Mononuclear WBCs (%) 44, Body Fluid Mesothelial Cells (%) 34, Body Fluid Albumin [Pending] 05/20/18 05:45: White Blood Count 5.5, Red Blood Count 3.92L, Hemoglobin 10.5L, Hematocrit 33.5L , Mean Corpuscular Volume 86, Mean Corpuscular Hemoglobin 26.7L, Mean Corpuscular Hemoglobin Concent 31.2L, Red Cell Distribution Width 20.6H, Platelet Count 222, Mean Platelet Volume 6.3L, Neutrophils (%) (Auto) 70.7, Lymphocytes (%) (Auto) 13.3L, Monocytes (%) (Auto) 13.0H, Eosinophils (%) (Auto ) 1.4, Basophils (%) (Auto) 1.6, Sodium Level 134L, Potassium Level 5.4H, Chloride Level 101, Carbon Dioxide Level 23, Anion Gap 10, Blood Urea Nitrogen 85H, Creatinine 2.2H, Estimat Glomerular Filtration Rate 36.6, Glucose Level 183H, Calcium Level 8.9, Digoxin Level 0.6 Height (Feet): 6 Height (Inches): 0.00 Weight (Pounds): 151 General Appearance: lethargic EENT: normal ENT inspection Neck: normal alignment Cardiovascular: normal peripheral pulses, normal rate, regular rhythm Respiratory/Chest: chest wall non-tender, lungs clear, normal breath sounds Abdomen: soft, hypoactive bowel sounds, distended Extremities: normal inspection Edema: no edema noted Arm (L), no edema noted Arm (R), no edema noted Leg (L), no edema noted Leg (R), no edema noted Pedal (L), no edema noted Pedal (R), no edema noted Generalized Neurologic: responsive, motor weakness Skin: normal pigmentation, warm/dry Shahid Cherryg May 20, 2018 13:53
--- NOTE | 2018-05-20 14:19 | Infectious Diseases Prog Note ---
Assessment/Plan Assessment/Plan Assessment: Abd pain/distention Ascites- r/o probable SBP -s/p paracentesis 1.8 L: WBC 200 ( N 22)- fluid not consistent with SBP; wound cx p Afebrile No leukocytosis -CXR: Cardiomegaly. 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 Will continue to follow along with you. Discussed with RN. Subjective Allergies: Coded Allergies: HYDROMORPHONE (Verified Allergy, Unknown, 12/28/10) Subjective afebrile At RA no leukocytosis s/p paracentesis 1.8 fluid yield Objective Vital Signs Last 24 Hour Vital Signs Date Time Temp Pulse Resp B/P (MAP) Pulse Ox O2 Delivery O2 Flow Rate FiO2 05/20/18 12:00 Room Air 05/20/18 12:00 97.4 108 20 117/59 (78) 100 05/20/18 12:00 107 05/20/18 11:58 117/59 05/20/18 10:45 89 05/20/18 10:30 97.7 84 21 121/77 (92) 98 05/20/18 09:00 Room Air 05/20/18 08:52 107 05/20/18 08:00 96.8 107 18 129/73 (91) 100 05/20/18 04:00 97.1 75 18 113/79 (90) 98 05/20/18 00:00 98.0 75 18 120/83 (95) 100 05/19/18 21:00 Room Air 05/19/18 20:00 97.4 100 18 105/73 (84) 99 05/19/18 16:00 98.4 78 19 117/87 (97) 100 Height (Feet): 6 Height (Inches): 0.00 Weight (Pounds): 151 Objective General Appearance: WD/WN Lines, tubes and drains: peripheral HEENT: normocephalic, atraumatic Neck: non-tender, normal alignment Respiratory/Chest: chest wall non-tender, lungs clear Cardiovascular/Chest: normal peripheral pulses Abdomen: normal bowel sounds, non tender Extremities: normal range of motion Skin Exam: normal pigmentation 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 Microbiology Date/Time Source Procedure Growth Status 05/18/18 15:35 Urine,Clean Catch Urine Culture - Preliminary Klebsiella Pneumoniae Gram Negative Bacillus 2 Gram Negative Bacillus 3 Resulted Laboratory Tests Test 05/19/18 14:51 05/20/18 05:45 Body Fluid Source Paracentesis Body Fluid Volume 24 mL Body Fluid Appearance Hazy (Clear) Body Fluid RBC 795 /CUMM Body Fluid Total Nucleated Cells 200 /CUMM Body Fluid Polynuclear WBCs (%) 22 % Body Fluid Mononuclear WBCs (%) 44 % Body Fluid Mesothelial Cells (%) 34 % Body Fluid Albumin Pending White Blood Count 5.5 K/UL (4.8-10.8) Red Blood Count 3.92 M/UL (4.70-6.10) L Hemoglobin 10.5 G/DL (14.2-18.0) L Hematocrit 33.5 % (42.0-52.0) L Mean Corpuscular Volume 86 FL (80-99) Mean Corpuscular Hemoglobin 26.7 PG (27.0-31.0) L Mean Corpuscular Hemoglobin Concent 31.2 G/DL (32.0-36.0) L Red Cell Distribution Width 20.6 % (11.6-14.8) H Platelet Count 222 K/UL (150-450) Mean Platelet Volume 6.3 FL (6.5-10.1) L Neutrophils (%) (Auto) 70.7 % (45.0-75.0) Lymphocytes (%) (Auto) 13.3 % (20.0-45.0) L Monocytes (%) (Auto) 13.0 % (1.0-10.0) H Eosinophils (%) (Auto) 1.4 % (0.0-3.0) Basophils (%) (Auto) 1.6 % (0.0-2.0) Sodium Level 134 MMOL/L (136-145) L Potassium Level 5.4 MMOL/L (3.5-5.1) H Chloride Level 101 MMOL/L (98-107) Carbon Dioxide Level 23 MMOL/L (21-32) Anion Gap 10 mmol/L (5-15) Blood Urea Nitrogen 85 mg/dL (7-18) H Creatinine 2.2 MG/DL (0.55-1.30) H Estimat Glomerular Filtration Rate 36.6 mL/min (>60) Glucose Level 183 MG/DL (74-106) H Calcium Level 8.9 MG/DL (8.5-10.1) Digoxin Level 0.6 NG/ML (0.5-2.0) Current Medications Medications (Trade) Dose Ordered Sig/Allyn Route PRN Reason Start Time Stop Time Status Last Admin Dose Admin Acetaminophen (Tylenol) 650 mg Q4H PRN ORAL fever 05/20/18 10:30 06/17/18 22:29 Al Hydroxide/Mg Hydroxide (Mylanta II) 30 ml Q6H PRN ORAL dyspepsia 05/20/18 10:30 06/17/18 22:29 Ceftriaxone Sodium 1 gm/ Dextrose 55 ml @ 110 mls/hr Q24H IVPB 05/20/18 16:00 05/26/18 15:59 Chlorhexidine Gluconate (Kalani-Hex 2%) 1 applic DAILY@2000 TOPIC 05/20/18 20:00 06/19/18 19:59 Dextrose (Dextrose 50%) STAT PRN IV Hypoglycemia 05/20/18 22:30 06/17/18 22:29 Digoxin (Lanoxin) 0.125 mg DAILY ORAL 05/21/18 09:00 06/18/18 08:59 Dobutamine HCl 250 ml @ 20.548 mls/ hr [id number] IV 05/20/18 12:00 06/19/18 11:59 05/20/18 11:58 Gabapentin (Neurontin) 100 mg THREE TIMES A DAY ORAL 05/20/18 13:00 06/18/18 08:59 05/20/18 12:09 Levothyroxine Sodium (Synthroid) 50 mcg DAILY@0630 ORAL 05/21/18 06:30 06/19/18 06:29 Levothyroxine Sodium (Synthroid) 125 mcg BEFORE BREAKFAST ORAL 05/21/18 06:30 06/18/18 06:29 Lorazepam (Ativan 2mg/ml 1ml) 0.5 mg Q4H PRN IV For Anxiety 05/20/18 10:30 05/25/18 22:29 Ondansetron HCl (Zofran) 4 mg Q6H PRN IVP Nausea & Vomiting 05/20/18 10:30 06/17/18 22:29 Oxycodone HCl (Roxicodone) 10 mg Q8H PRN ORAL Severe Pain (Pain Scale 7-10) 05/20/18 18:15 05/26/18 10:14 Polyethylene Glycol (Miralax) 17 gm HSPRN PRN ORAL Constipation 05/20/18 22:30 06/17/18 22:29 Spironolactone (Aldactone) 25 mg DAILY ORAL 05/21/18 09:00 06/18/18 08:59 UNV Zolpidem Tartrate (Ambien) 5 mg HSPRN PRN ORAL Insomnia 05/20/18 22:30 05/25/18 22:29 Melisa Jefferson M.D. May 20, 2018 14:19
--- NOTE | 2018-05-20 14:45 | Consultation ---
DATE OF CONSULTATION: 05/19/2018 CARDIOLOGY CONSULTATION CONSULTING PHYSICIAN: Rc Zhang M.D. REFERRING PHYSICIAN: Shahid Cherry D.O. REASON FOR CONSULTATION: Exacerbation of congestive heart failure and evaluation of the patient's defibrillator. HISTORY OF PRESENT ILLNESS: The patient is a 63-year-old gentleman with history of severe cardiomyopathy, ejection fraction less than 10%, who was on home dobutamine until last admission at [facility]. The patient was discharged off dobutamine. The patient also had a paracentesis on last admission. The patient also has end-stage liver disease, cirrhosis, and ascites and is on chronic pain medication, oxycodone. The patient presents to the emergency room with shortness of breath, increased abdominal distention, was admitted for further evaluation. The patient was also noted to have renal failure, creatinine of 2.5. REVIEW OF SYSTEMS: Negative other than what was mentioned in the history of present illness. PAST MEDICAL HISTORY: As mentioned above. FAMILY HISTORY: Noncontributory. SOCIAL HISTORY: He lives at home. Does not smoke or drink alcohol. PHYSICAL EXAMINATION: VITAL SIGNS: Blood pressure is 174, pulse is 60, respirations 18, and temperature 97.4. HEAD AND NECK: Positive JVD. LUNGS: Decreased breath sounds. CARDIOVASCULAR: Regular S1 and S2. Grade 2/6 systolic murmur. S3 gallop with defibrillator . ABDOMEN: Distended with ascites. EXTREMITIES: 1+ pitting edema. LABORATORY AND DIAGNOSTIC DATA: His labs show white count of , hemoglobin 10.7, hematocrit 34, and platelet count 248. Sodium is 132, potassium is 5.7, BUN of 52, creatinine 2.5, and glucose of 174. Troponin is negative. His urine toxicology is positive only for marijuana. His INR is 1.9. His is 12.76. ASSESSMENT AND PLAN: 1. Exacerbation of congestive heart failure. We will resume the patient's dobutamine and start the patient on Lasix and Aldactone. Hold off on lisinopril. renal failure. 2. Status post [employer] [place] defibrillator implantation with a biventricular device with recent interrogation showed normal function. 3. Hepatitis C, cirrhosis, and ascites. The patient had last admission paracentesis today. 4. Atrial fibrillation, status post ablation. He is on Xarelto. 5. Hypothyroidism, on Synthroid. 6. Gastroesophageal reflux disease. Thank you very much, Dr. Cherry, for allowing me to participate in the care of this patient. Please do not hesitate to contact me for any questions regarding my evaluation. Rc Zhang M.D. DR: ASHKAN JOB#: [id number] CC:
[2018-05-20] MEDS: cefTRIAXone 1 GM in D5W 55 ML IVPB SCH (15:43)
[2018-05-20] MEDS ORDERED: oxyCODONE 5mg IR tab ORAL PRN (18:15)
[2018-05-20] MEDS: Dyna-Hex 2% Top Sol 2oz TOPIC SCH (19:59)
[2018-05-20] MEDS ORDERED: Dyna-Hex 2% Top Sol 2oz TOPIC SCH (20:00)
[2018-05-20] MEDS ORDERED: Zolpidem 5mg tab ORAL PRN (22:30)
[2018-05-20] MEDS ORDERED: Miralax 17gm pkt ORAL PRN (22:30)
[2018-05-21] VITALS: BP 117/70
[2018-05-21] MEDS: DOBUTamine 250mg/250ml Premix 250 ML IV SCH ×2 (00:04→13:10)
[2018-05-21 04:00] VITALS: BP 120/80
[2018-05-21 05:13] LABS: BASOPHILS % (AUTO) 1.1 % (0.0-2.0); EOSINOPHILS % (AUTO) 1.9 % (0.0-3.0); HEMATOCRIT 29.6 % (42.0-52.0); HEMOGLOBIN 9.1 G/DL (14.2-18.0); LYMPHOCYTES % (AUTO) 9.4 % (20.0-45.0); MEAN CORPUSCULAR VOLUME 85 FL (80-99); MONOCYTES % (AUTO) 11.4 % (1.0-10.0); NEUTROPHILS % (AUTO) 76.2 % (45.0-75.0); PLATELET COUNT 162 K/UL (150-450); RED BLOOD COUNT 3.48 M/UL (4.70-6.10); RED CELL DISTRIBUTION WIDTH 20.5 % (11.6-14.8); WHITE BLOOD COUNT 5.3 K/UL (4.8-10.8)
[2018-05-21 05:44] LABS: ANION GAP 9 mmol/L (5-15); BLOOD UREA NITROGEN 63 mg/dL (7-18); CALCIUM 8.1 MG/DL (8.5-10.1); CARBON DIOXIDE 27 MMOL/L (21-32); CHLORIDE 98 MMOL/L (98-107); CREATININE 1.8 MG/DL (0.55-1.30); SODIUM 134 MMOL/L (136-145)
[2018-05-21] MEDS: Levothyroxine 125mcg tab ORAL SCH (06:05)
--- NOTE | 2018-05-21 07:06 | General Progress Note ---
Assessment/Plan Problem List: (1) Hypoglycemia ICD Codes: E16.2 - Hypoglycemia, unspecified SNOMED: 035059451 (2) Hepatitis C ICD Codes: B19.20 - Hepatitis C SNOMED: 19627553 (3) Hypothyroidism ICD Codes: E03.9 - Hypothyroidism SNOMED: 52083238 (4) Cirrhosis ICD Codes: K74.60 - Unspecified cirrhosis of liver SNOMED: 77325986 (5) Ascites ICD Codes: R18.8 - Ascites SNOMED: 810400097 Assessment/Plan no recurrence of hypoglycemia adrenal insufficiency ruled out continue Levothyroxine 175 - increased from 125 mcg repeat thyroid function in 1-2 weeks Subjective Allergies: Coded Allergies: HYDROMORPHONE (Verified Allergy, Unknown, 12/28/10) All Systems: reviewed and negative except above Subjective events noted Objective Last 24 Hour Vital Signs Date Time Temp Pulse Resp B/P (MAP) Pulse Ox O2 Delivery O2 Flow Rate FiO2 05/21/18 04:00 98.0 78 21 120/80 (93) 98 05/21/18 04:00 83 05/21/18 04:00 Room Air 05/21/18 00:04 117/70 05/21/18 00:00 Room Air 05/21/18 00:00 85 05/21/18 00:00 97.7 86 21 117/70 (86) 99 05/20/18 20:00 Room Air 05/20/18 20:00 97.9 63 21 113/61 (78) 99 05/20/18 20:00 80 05/20/18 16:00 84 05/20/18 16:00 97.9 82 21 116/64 (81) 97 05/20/18 16:00 Room Air 05/20/18 12:00 Room Air 05/20/18 12:00 97.4 108 20 117/59 (78) 100 05/20/18 12:00 107 05/20/18 11:58 117/59 05/20/18 10:45 89 05/20/18 10:30 97.7 84 21 121/77 (92) 98 05/20/18 09:00 Room Air 05/20/18 08:52 107 05/20/18 08:00 96.8 107 18 129/73 (91) 100 Intake and Output 05/20/18 05/21/18 18:59 06:59 Intake Total 488.836 ml 464.580 ml Output Total 1650 ml 1100 ml Balance -1161.164 ml -635.420 ml Intake Oral 290 ml 240 ml IV Total 198.836 ml 224.580 ml Output Urine Total 1650 ml 1100 ml Laboratory Tests 05/21/18 04:30: White Blood Count 5.3, Red Blood Count 3.48L, Hemoglobin 9.1L, Hematocrit 29.6L , Mean Corpuscular Volume 85, Mean Corpuscular Hemoglobin 26.3L, Mean Corpuscular Hemoglobin Concent 30.9L, Red Cell Distribution Width 20.5H, Platelet Count 162, Mean Platelet Volume 5.8L, Neutrophils (%) (Auto) 76.2H, Lymphocytes (%) (Auto) 9.4L, Monocytes (%) (Auto) 11.4H, Eosinophils (%) (Auto) 1.9, Basophils (%) (Auto) 1.1, Sodium Level 134L, Potassium Level 4.0, Chloride Level 98, Carbon Dioxide Level 27, Anion Gap 9, Blood Urea Nitrogen 63H, Creatinine 1.8H, Estimat Glomerular Filtration Rate 46.2, Glucose Level 105, Calcium Level 8.1L Height (Feet): 6 Height (Inches): 0.00 Weight (Pounds): 151 General Appearance: no apparent distress Neck: normal alignment Cardiovascular: normal peripheral pulses Respiratory/Chest: decreased breath sounds Abdomen: distended Objective Current Medications Medications (Trade) Dose Ordered Sig/Allyn Route PRN Reason Start Time Stop Time Status Last Admin Dose Admin Acetaminophen (Tylenol) 650 mg Q4H PRN ORAL fever 05/20/18 10:30 06/17/18 22:29 Al Hydroxide/Mg Hydroxide (Mylanta II) 30 ml Q6H PRN ORAL dyspepsia 05/20/18 10:30 06/17/18 22:29 Ceftriaxone Sodium 1 gm/ Dextrose 55 ml @ 110 mls/hr Q24H IVPB 05/20/18 16:00 05/26/18 15:59 05/20/18 15:43 Chlorhexidine Gluconate (Kalani-Hex 2%) 1 applic DAILY@2000 TOPIC 05/20/18 20:00 06/19/18 19:59 05/20/18 19:59 Dextrose (Dextrose 50%) STAT PRN IV Hypoglycemia 05/20/18 22:30 06/17/18 22:29 Digoxin (Lanoxin) 0.125 mg DAILY ORAL 05/21/18 09:00 06/18/18 08:59 Dobutamine HCl 250 ml @ 20.548 mls/ hr [id number] IV 05/20/18 12:00 06/19/18 11:59 05/21/18 00:04 Gabapentin (Neurontin) 100 mg THREE TIMES A DAY ORAL 05/20/18 13:00 06/18/18 08:59 05/20/18 17:16 Levothyroxine Sodium (Synthroid) 50 mcg DAILY@0630 ORAL 05/21/18 06:30 06/19/18 06:29 05/21/18 06:07 Levothyroxine Sodium (Synthroid) 125 mcg BEFORE BREAKFAST ORAL 05/21/18 06:30 06/18/18 06:29 05/21/18 06:05 Lorazepam (Ativan 2mg/ml 1ml) 0.5 mg Q4H PRN IV For Anxiety 05/20/18 10:30 05/25/18 22:29 Ondansetron HCl (Zofran) 4 mg Q6H PRN IVP Nausea & Vomiting 05/20/18 10:30 06/17/18 22:29 Oxycodone HCl (Roxicodone) 10 mg Q8H PRN ORAL Severe Pain (Pain Scale 7-10) 05/20/18 14:45 05/27/18 14:44 05/20/18 23:19 Polyethylene Glycol (Miralax) 17 gm HSPRN PRN ORAL Constipation 05/20/18 22:30 06/17/18 22:29 Zolpidem Tartrate (Ambien) 5 mg HSPRN PRN ORAL Insomnia 05/20/18 22:30 05/25/18 22:29 05/20/18 22:06 Orestes Kyle MD May 21, 2018 07:06
[2018-05-21 08:00] VITALS: BP 138/69
[2018-05-21] MEDS: oxyCODONE 5mg IR tab ORAL PRN ×2 (08:41→17:34)
[2018-05-21] MEDS: Digoxin 0.125mg tab ORAL SCH (08:42)
[2018-05-21] MEDS ORDERED: Spironolactone 50mg tab ORAL SCH (09:00)
--- NOTE | 2018-05-21 10:33 | Cardiac Electrophysiology PN ---
Assessment/Plan Assessment/Plan 1. Exacerbation of congestive heart failure with EF only 10%. Continue Aldactone and Lasix On Dobutamine drip. Off Coreg while on Dobutamine. 2. Status post [facility] Bi-V ICD. Interrogation recently showed normal LV function. 3. Hepatitis and ascites. s/p 1.7 liter paracentesis 4. Persistent atrial fibrillation, status post ablation on Xarelto 5. Hypothyroidism on Synthroid. 6. Acute renal failure. On Dobutamine. OFF ACEI or ARB. Cr down to 1.8 DW RN Subjective Subjective S/P PICC line placement and on Dobutamine drip. Objective Last 24 Hour Vital Signs Date Time Temp Pulse Resp B/P (MAP) Pulse Ox O2 Delivery O2 Flow Rate FiO2 05/21/18 08:42 68 05/21/18 08:00 97.0 68 20 138/69 (92) 97 05/21/18 04:00 98.0 78 21 120/80 (93) 98 05/21/18 04:00 83 05/21/18 04:00 Room Air 05/21/18 00:04 117/70 05/21/18 00:00 Room Air 05/21/18 00:00 85 05/21/18 00:00 97.7 86 21 117/70 (86) 99 05/20/18 20:00 Room Air 05/20/18 20:00 97.9 63 21 113/61 (78) 99 05/20/18 20:00 80 05/20/18 16:00 84 05/20/18 16:00 97.9 82 21 116/64 (81) 97 05/20/18 16:00 Room Air 05/20/18 12:00 Room Air 05/20/18 12:00 97.4 108 20 117/59 (78) 100 05/20/18 12:00 107 05/20/18 11:58 117/59 05/20/18 10:45 89 Intake and Output 05/20/18 05/21/18 18:59 06:59 Intake Total 488.836 ml 464.580 ml Output Total 1650 ml 1100 ml Balance -1161.164 ml -635.420 ml Intake Oral 290 ml 240 ml IV Total 198.836 ml 224.580 ml Output Urine Total 1650 ml 1100 ml Laboratory Tests Test 05/21/18 04:30 White Blood Count 5.3 K/UL (4.8-10.8) Red Blood Count 3.48 M/UL (4.70-6.10) L Hemoglobin 9.1 G/DL (14.2-18.0) L Hematocrit 29.6 % (42.0-52.0) L Mean Corpuscular Volume 85 FL (80-99) Mean Corpuscular Hemoglobin 26.3 PG (27.0-31.0) L Mean Corpuscular Hemoglobin Concent 30.9 G/DL (32.0-36.0) L Red Cell Distribution Width 20.5 % (11.6-14.8) H Platelet Count 162 K/UL (150-450) Mean Platelet Volume 5.8 FL (6.5-10.1) L Neutrophils (%) (Auto) 76.2 % (45.0-75.0) H Lymphocytes (%) (Auto) 9.4 % (20.0-45.0) L Monocytes (%) (Auto) 11.4 % (1.0-10.0) H Eosinophils (%) (Auto) 1.9 % (0.0-3.0) Basophils (%) (Auto) 1.1 % (0.0-2.0) Sodium Level 134 MMOL/L (136-145) L Potassium Level 4.0 MMOL/L (3.5-5.1) Chloride Level 98 MMOL/L (98-107) Carbon Dioxide Level 27 MMOL/L (21-32) Anion Gap 9 mmol/L (5-15) Blood Urea Nitrogen 63 mg/dL (7-18) H Creatinine 1.8 MG/DL (0.55-1.30) H Estimat Glomerular Filtration Rate 46.2 mL/min (>60) Glucose Level 105 MG/DL (74-106) Calcium Level 8.1 MG/DL (8.5-10.1) L Microbiology Date/Time Source Procedure Growth Status 05/19/18 06:30 Nasal Nares MRSA Culture - Final NO METHICILLIN RESISTANT STAPH AUREUS... Complete 05/18/18 15:35 Urine,Clean Catch Urine Culture - Final Klebsiella Pneumoniae Morganella Morg Spp Morganii Proteus Mirabilis Complete 05/19/18 06:30 Rectum VRE Culture - Final NO VANCOMYCIN RESISTANT ENTEROCOCCUS ... Complete Objective HEAD AND NECK: Positive jugular venous distention. LUNGS: Decreased breath sounds with basilar rales. CARDIOVASCULAR: Regular S1 and S2 with no gallop or murmur. Defibrillator in left subclavian. ABDOMEN: Ascites. EXTREMITIES: 1+ pitting edema. Rc Zhang MD May 21, 2018 10:33
--- NOTE | 2018-05-21 10:37 | Pulmonology Progress Note ---
Assessment/Plan Problems: (1) Ascites (2) Emphysema lung (3) Cardiomyopathy due to hypertension, with heart failure (4) Right-sided heart failure (5) Cirrhosis (6) Hypothyroidism (7) ICD (implantable cardioverter-defibrillator) in place (8) Hepatitis C (9) Anemia Assessment/Plan start Dobutamine drip after putting PICC renal function stable check electrolytes symptomatic treatment d/w Dr. Zhang Subjective ROS Limited/Unobtainable: Yes Interval Events: late note for 05/20, s/p parecentesis Constitutional: Reports: no symptoms HEENT: Repors: no symptoms Allergies: Coded Allergies: HYDROMORPHONE (Verified Allergy, Unknown, 12/28/10) Objective Last 24 Hour Vital Signs Date Time Temp Pulse Resp B/P (MAP) Pulse Ox O2 Delivery O2 Flow Rate FiO2 05/21/18 08:42 68 05/21/18 08:00 97.0 68 20 138/69 (92) 97 05/21/18 04:00 98.0 78 21 120/80 (93) 98 05/21/18 04:00 83 05/21/18 04:00 Room Air 05/21/18 00:04 117/70 05/21/18 00:00 Room Air 05/21/18 00:00 85 05/21/18 00:00 97.7 86 21 117/70 (86) 99 05/20/18 20:00 Room Air 05/20/18 20:00 97.9 63 21 113/61 (78) 99 05/20/18 20:00 80 05/20/18 16:00 84 05/20/18 16:00 97.9 82 21 116/64 (81) 97 05/20/18 16:00 Room Air 05/20/18 12:00 Room Air 05/20/18 12:00 97.4 108 20 117/59 (78) 100 05/20/18 12:00 107 05/20/18 11:58 117/59 05/20/18 10:45 89 Intake and Output 05/20/18 05/21/18 18:59 06:59 Intake Total 488.836 ml 464.580 ml Output Total 1650 ml 1100 ml Balance -1161.164 ml -635.420 ml Intake Oral 290 ml 240 ml IV Total 198.836 ml 224.580 ml Output Urine Total 1650 ml 1100 ml General Appearance: WD/WN HEENT: normocephalic, atraumatic Respiratory/Chest: chest wall non-tender, lungs clear, normal breath sounds Cardiovascular: normal peripheral pulses, normal rate Abdomen: normal bowel sounds, no organomegaly Extremities: no cyanosis Skin: no rash, no ulcers Microbiology Date/Time Source Procedure Growth Status 05/19/18 06:30 Nasal Nares MRSA Culture - Final NO METHICILLIN RESISTANT STAPH AUREUS... Complete 05/18/18 15:35 Urine,Clean Catch Urine Culture - Final Klebsiella Pneumoniae Morganella Morg Spp Morganii Proteus Mirabilis Complete 05/19/18 06:30 Rectum VRE Culture - Final NO VANCOMYCIN RESISTANT ENTEROCOCCUS ... Complete Laboratory Tests 05/21/18 04:30: White Blood Count 5.3, Red Blood Count 3.48L, Hemoglobin 9.1L, Hematocrit 29.6L , Mean Corpuscular Volume 85, Mean Corpuscular Hemoglobin 26.3L, Mean Corpuscular Hemoglobin Concent 30.9L, Red Cell Distribution Width 20.5H, Platelet Count 162, Mean Platelet Volume 5.8L, Neutrophils (%) (Auto) 76.2H, Lymphocytes (%) (Auto) 9.4L, Monocytes (%) (Auto) 11.4H, Eosinophils (%) (Auto) 1.9, Basophils (%) (Auto) 1.1, Sodium Level 134L, Potassium Level 4.0, Chloride Level 98, Carbon Dioxide Level 27, Anion Gap 9, Blood Urea Nitrogen 63H, Creatinine 1.8H, Estimat Glomerular Filtration Rate 46.2, Glucose Level 105, Calcium Level 8.1L Current Medications Medications (Trade) Dose Ordered Sig/Allyn Route PRN Reason Start Time Stop Time Status Last Admin Dose Admin Acetaminophen (Tylenol) 650 mg Q4H PRN ORAL fever 05/20/18 10:30 06/17/18 22:29 Al Hydroxide/Mg Hydroxide (Mylanta II) 30 ml Q6H PRN ORAL dyspepsia 05/20/18 10:30 06/17/18 22:29 Ceftriaxone Sodium 1 gm/ Dextrose 55 ml @ 110 mls/hr Q24H IVPB 05/20/18 16:00 05/26/18 15:59 05/20/18 15:43 Chlorhexidine Gluconate (Kalani-Hex 2%) 1 applic DAILY@1999 TOPIC 05/20/18 20:00 06/19/18 19:59 05/20/18 19:59 Dextrose (Dextrose 50%) STAT PRN IV Hypoglycemia 05/20/18 22:30 06/17/18 22:29 Digoxin (Lanoxin) 0.125 mg DAILY ORAL 05/21/18 09:00 06/18/18 08:59 05/21/18 08:42 Dobutamine HCl 250 ml @ 20.548 mls/ hr [id number] IV 05/20/18 12:00 06/19/18 11:59 05/21/18 00:04 Gabapentin (Neurontin) 100 mg THREE TIMES A DAY ORAL 05/20/18 13:00 06/18/18 08:59 05/21/18 08:43 Levothyroxine Sodium (Synthroid) 50 mcg DAILY@0630 ORAL 05/21/18 06:30 06/19/18 06:29 05/21/18 06:07 Levothyroxine Sodium (Synthroid) 125 mcg BEFORE BREAKFAST ORAL 05/21/18 06:30 06/18/18 06:29 05/21/18 06:05 Lorazepam (Ativan 2mg/ml 1ml) 0.5 mg Q4H PRN IV For Anxiety 05/20/18 10:30 05/25/18 22:29 Ondansetron HCl (Zofran) 4 mg Q6H PRN IVP Nausea & Vomiting 05/20/18 10:30 06/17/18 22:29 Oxycodone HCl (Roxicodone) 10 mg Q8H PRN ORAL Severe Pain (Pain Scale 7-10) 05/20/18 14:45 05/27/18 14:44 05/21/18 08:41 Polyethylene Glycol (Miralax) 17 gm HSPRN PRN ORAL Constipation 05/20/18 22:30 06/17/18 22:29 Zolpidem Tartrate (Ambien) 5 mg HSPRN PRN ORAL Insomnia 05/20/18 22:30 05/25/18 22:29 05/20/18 22:06 Andrzej Chavarria MD May 21, 2018 10:37
--- NOTE | 2018-05-21 10:38 | Pulmonology Progress Note ---
Assessment/Plan Problems: (1) Ascites (2) Emphysema lung (3) Cardiomyopathy due to hypertension, with heart failure (4) Right-sided heart failure (5) Cirrhosis (6) Hypothyroidism (7) ICD (implantable cardioverter-defibrillator) in place (8) Hepatitis C (9) Anemia Assessment/Plan on Dobutamine drip check CXR and BNP in am renal function stable check electrolytes symptomatic treatment d/w Dr. Zhang Subjective Interval Events: doing better Allergies: Coded Allergies: HYDROMORPHONE (Verified Allergy, Unknown, 12/28/10) Objective Last 24 Hour Vital Signs Date Time Temp Pulse Resp B/P (MAP) Pulse Ox O2 Delivery O2 Flow Rate FiO2 05/21/18 08:42 68 05/21/18 08:00 97.0 68 20 138/69 (92) 97 05/21/18 04:00 98.0 78 21 120/80 (93) 98 05/21/18 04:00 83 05/21/18 04:00 Room Air 05/21/18 00:04 117/70 05/21/18 00:00 Room Air 05/21/18 00:00 85 05/21/18 00:00 97.7 86 21 117/70 (86) 99 05/20/18 20:00 Room Air 05/20/18 20:00 97.9 63 21 113/61 (78) 99 05/20/18 20:00 80 05/20/18 16:00 84 05/20/18 16:00 97.9 82 21 116/64 (81) 97 05/20/18 16:00 Room Air 05/20/18 12:00 Room Air 05/20/18 12:00 97.4 108 20 117/59 (78) 100 05/20/18 12:00 107 05/20/18 11:58 117/59 05/20/18 10:45 89 Intake and Output 05/20/18 05/21/18 18:59 06:59 Intake Total 488.836 ml 464.580 ml Output Total 1650 ml 1100 ml Balance -1161.164 ml -635.420 ml Intake Oral 290 ml 240 ml IV Total 198.836 ml 224.580 ml Output Urine Total 1650 ml 1100 ml General Appearance: WD/WN HEENT: normocephalic, atraumatic Respiratory/Chest: chest wall non-tender, lungs clear Cardiovascular: normal peripheral pulses, normal rate Abdomen: normal bowel sounds, soft, non tender Genitourinary: normal external genitalia Extremities: no cyanosis Skin: no lesions 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 Complete 05/18/18 15:35 Urine,Clean Catch Urine Culture - Final Klebsiella Pneumoniae Morganella Morg Spp Morganii Proteus Mirabilis Complete 05/19/18 06:30 Rectum VRE Culture - Final NO VANCOMYCIN RESISTANT ENTEROCOCCUS ... Complete Laboratory Tests 05/21/18 04:30: White Blood Count 5.3, Red Blood Count 3.48L, Hemoglobin 9.1L, Hematocrit 29.6L , Mean Corpuscular Volume 85, Mean Corpuscular Hemoglobin 26.3L, Mean Corpuscular Hemoglobin Concent 30.9L, Red Cell Distribution Width 20.5H, Platelet Count 162, Mean Platelet Volume 5.8L, Neutrophils (%) (Auto) 76.2H, Lymphocytes (%) (Auto) 9.4L, Monocytes (%) (Auto) 11.4H, Eosinophils (%) (Auto) 1.9, Basophils (%) (Auto) 1.1, Sodium Level 134L, Potassium Level 4.0, Chloride Level 98, Carbon Dioxide Level 27, Anion Gap 9, Blood Urea Nitrogen 63H, Creatinine 1.8H, Estimat Glomerular Filtration Rate 46.2, Glucose Level 105, Calcium Level 8.1L Current Medications Medications (Trade) Dose Ordered Sig/Allyn Route PRN Reason Start Time Stop Time Status Last Admin Dose Admin Acetaminophen (Tylenol) 650 mg Q4H PRN ORAL fever 05/20/18 10:30 06/17/18 22:29 Al Hydroxide/Mg Hydroxide (Mylanta II) 30 ml Q6H PRN ORAL dyspepsia 05/20/18 10:30 06/17/18 22:29 Ceftriaxone Sodium 1 gm/ Dextrose 55 ml @ 110 mls/hr Q24H IVPB 05/20/18 16:00 05/26/18 15:59 05/20/18 15:43 Chlorhexidine Gluconate (Kalani-Hex 2%) 1 applic DAILY@2000 TOPIC 05/20/18 20:00 06/19/18 19:59 05/20/18 19:59 Dextrose (Dextrose 50%) STAT PRN IV Hypoglycemia 05/20/18 22:30 06/17/18 22:29 Digoxin (Lanoxin) 0.125 mg DAILY ORAL 05/21/18 09:00 06/18/18 08:59 05/21/18 08:42 Dobutamine HCl 250 ml @ 20.548 mls/ hr [id number] IV 05/20/18 12:00 06/19/18 11:59 05/21/18 00:04 Gabapentin (Neurontin) 100 mg THREE TIMES A DAY ORAL 05/20/18 13:00 06/18/18 08:59 05/21/18 08:43 Levothyroxine Sodium (Synthroid) 50 mcg DAILY@0630 ORAL 05/21/18 06:30 06/19/18 06:29 05/21/18 06:07 Levothyroxine Sodium (Synthroid) 125 mcg BEFORE BREAKFAST ORAL 05/21/18 06:30 06/18/18 06:29 05/21/18 06:05 Lorazepam (Ativan 2mg/ml 1ml) 0.5 mg Q4H PRN IV For Anxiety 05/20/18 10:30 05/25/18 22:29 Ondansetron HCl (Zofran) 4 mg Q6H PRN IVP Nausea & Vomiting 05/20/18 10:30 06/17/18 22:29 Oxycodone HCl (Roxicodone) 10 mg Q8H PRN ORAL Severe Pain (Pain Scale 7-10) 05/20/18 14:45 05/27/18 14:44 05/21/18 08:41 Polyethylene Glycol (Miralax) 17 gm HSPRN PRN ORAL Constipation 05/20/18 22:30 06/17/18 22:29 Zolpidem Tartrate (Ambien) 5 mg HSPRN PRN ORAL Insomnia 05/20/18 22:30 05/25/18 22:29 05/20/18 22:06 Andrzej Chavarria MD May 21, 2018 10:38
--- NOTE | 2018-05-21 10:38 | GI Progress Note ---
Assessment/Plan Problems: (1) Anemia ICD Codes: D64.9 - Anemia, unspecified SNOMED: 477861375 (2) Hepatitis C ICD Codes: B19.20 - Hepatitis C SNOMED: 63493547 (3) Right-sided heart failure ICD Codes: I50.9 - Right-sided heart failure SNOMED: 307144430 (4) Ascites ICD Codes: R18.8 - Ascites SNOMED: 125058944 (5) Acute respiratory failure ICD Codes: J96.00 - Acute respiratory failure SNOMED: 58629837 Status: stable, progressing Status Narrative Discussed with Dr. Ryan. Assessment/Plan hx of Hep C in 2014 s/p tx >> hep panel redrawn in 2016 was negative s/p colonoscopy with one polyp 06/26/16 s/p paracentesis 1.8 lit fu abd exam cardiac ascites, fu cardiology diuresis low sodium diet bowel regime zofran prn ppi pain mgmt fu labs repeat colonoscopy in 2021 The patient was seen and examined at bedside and all new and available data was reviewed in the patients chart. I agree with the above findings, impression and plan. (Patient seen earlier today. Signature stamp does not reflect patient encounter time.). - Beto Ryan MD Subjective Gastrointestinal/Abdominal: Reports: no symptoms Objective Last 24 Hour Vital Signs Date Time Temp Pulse Resp B/P (MAP) Pulse Ox O2 Delivery O2 Flow Rate FiO2 05/21/18 08:42 68 05/21/18 08:00 97.0 68 20 138/69 (92) 97 05/21/18 04:00 98.0 78 21 120/80 (93) 98 05/21/18 04:00 83 05/21/18 04:00 Room Air 05/21/18 00:04 117/70 05/21/18 00:00 Room Air 05/21/18 00:00 85 05/21/18 00:00 97.7 86 21 117/70 (86) 99 05/20/18 20:00 Room Air 05/20/18 20:00 97.9 63 21 113/61 (78) 99 05/20/18 20:00 80 05/20/18 16:00 84 05/20/18 16:00 97.9 82 21 116/64 (81) 97 05/20/18 16:00 Room Air 05/20/18 12:00 Room Air 05/20/18 12:00 97.4 108 20 117/59 (78) 100 05/20/18 12:00 107 05/20/18 11:58 117/59 05/20/18 10:45 89 Intake and Output 05/20/18 05/21/18 18:59 06:59 Intake Total 488.836 ml 464.580 ml Output Total 1650 ml 1100 ml Balance -1161.164 ml -635.420 ml Intake Oral 290 ml 240 ml IV Total 198.836 ml 224.580 ml Output Urine Total 1650 ml 1100 ml Laboratory Tests Test 05/21/18 04:30 White Blood Count 5.3 K/UL (4.8-10.8) Red Blood Count 3.48 M/UL (4.70-6.10) L Hemoglobin 9.1 G/DL (14.2-18.0) L Hematocrit 29.6 % (42.0-52.0) L Mean Corpuscular Volume 85 FL (80-99) Mean Corpuscular Hemoglobin 26.3 PG (27.0-31.0) L Mean Corpuscular Hemoglobin Concent 30.9 G/DL (32.0-36.0) L Red Cell Distribution Width 20.5 % (11.6-14.8) H Platelet Count 162 K/UL (150-450) Mean Platelet Volume 5.8 FL (6.5-10.1) L Neutrophils (%) (Auto) 76.2 % (45.0-75.0) H Lymphocytes (%) (Auto) 9.4 % (20.0-45.0) L Monocytes (%) (Auto) 11.4 % (1.0-10.0) H Eosinophils (%) (Auto) 1.9 % (0.0-3.0) Basophils (%) (Auto) 1.1 % (0.0-2.0) Sodium Level 134 MMOL/L (136-145) L Potassium Level 4.0 MMOL/L (3.5-5.1) Chloride Level 98 MMOL/L (98-107) Carbon Dioxide Level 27 MMOL/L (21-32) Anion Gap 9 mmol/L (5-15) Blood Urea Nitrogen 63 mg/dL (7-18) H Creatinine 1.8 MG/DL (0.55-1.30) H Estimat Glomerular Filtration Rate 46.2 mL/min (>60) Glucose Level 105 MG/DL (74-106) Calcium Level 8.1 MG/DL (8.5-10.1) L Height (Feet): 6 Height (Inches): 0.00 Weight (Pounds): 151 General Appearance: WD/WN, no apparent distress, alert, thin Cardiovascular: normal rate Respiratory/Chest: normal breath sounds, no respiratory distress Abdominal Exam: normal bowel sounds, non tender, soft Extremities: non-tender Kiarra Bird NP May 21, 2018 10:38
--- NOTE | 2018-05-21 11:31 | Infectious Diseases Prog Note ---
Assessment/Plan Assessment/Plan Assessment: Abd pain/distention Ascites- r/o probable SBP -s/p paracentesis 1.8 L: WBC 200 ( N 22)- fluid not consistent with SBP; wound cx NTD Afebrile No leukocytosis -CXR: Cardiomegaly. 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 Will continue to follow along with you. Discussed with RN. Subjective Allergies: Coded Allergies: HYDROMORPHONE (Verified Allergy, Unknown, 12/28/10) Subjective afebrile At RA no leukocytosis fluid cx NTD Objective Vital Signs Last 24 Hour Vital Signs Date Time Temp Pulse Resp B/P (MAP) Pulse Ox O2 Delivery O2 Flow Rate FiO2 05/21/18 08:42 68 05/21/18 08:00 93 05/21/18 08:00 97.0 68 20 138/69 (92) 97 05/21/18 04:00 98.0 78 21 120/80 (93) 98 05/21/18 04:00 83 05/21/18 04:00 Room Air 05/21/18 00:04 117/70 05/21/18 00:00 Room Air 05/21/18 00:00 85 05/21/18 00:00 97.7 86 21 117/70 (86) 99 05/20/18 20:00 Room Air 05/20/18 20:00 97.9 63 21 113/61 (78) 99 05/20/18 20:00 80 05/20/18 16:00 84 05/20/18 16:00 97.9 82 21 116/64 (81) 97 05/20/18 16:00 Room Air 05/20/18 12:00 Room Air 05/20/18 12:00 97.4 108 20 117/59 (78) 100 05/20/18 12:00 107 05/20/18 11:58 117/59 Height (Feet): 6 Height (Inches): 0.00 Weight (Pounds): 151 Objective General Appearance: WD/WN Lines, tubes and drains: peripheral HEENT: normocephalic, atraumatic Neck: non-tender, normal alignment Respiratory/Chest: chest wall non-tender, lungs clear Cardiovascular/Chest: normal peripheral pulses Abdomen: normal bowel sounds, non tender Extremities: normal range of motion Skin Exam: normal pigmentation 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 Complete 05/18/18 15:35 Urine,Clean Catch Urine Culture - Final Klebsiella Pneumoniae Morganella Morg Spp Morganii Proteus Mirabilis Complete 05/19/18 06:30 Rectum VRE Culture - Final NO VANCOMYCIN RESISTANT ENTEROCOCCUS ... Complete Laboratory Tests Test 05/21/18 04:30 White Blood Count 5.3 K/UL (4.8-10.8) Red Blood Count 3.48 M/UL (4.70-6.10) L Hemoglobin 9.1 G/DL (14.2-18.0) L Hematocrit 29.6 % (42.0-52.0) L Mean Corpuscular Volume 85 FL (80-99) Mean Corpuscular Hemoglobin 26.3 PG (27.0-31.0) L Mean Corpuscular Hemoglobin Concent 30.9 G/DL (32.0-36.0) L Red Cell Distribution Width 20.5 % (11.6-14.8) H Platelet Count 162 K/UL (150-450) Mean Platelet Volume 5.8 FL (6.5-10.1) L Neutrophils (%) (Auto) 76.2 % (45.0-75.0) H Lymphocytes (%) (Auto) 9.4 % (20.0-45.0) L Monocytes (%) (Auto) 11.4 % (1.0-10.0) H Eosinophils (%) (Auto) 1.9 % (0.0-3.0) Basophils (%) (Auto) 1.1 % (0.0-2.0) Sodium Level 134 MMOL/L (136-145) L Potassium Level 4.0 MMOL/L (3.5-5.1) Chloride Level 98 MMOL/L (98-107) Carbon Dioxide Level 27 MMOL/L (21-32) Anion Gap 9 mmol/L (5-15) Blood Urea Nitrogen 63 mg/dL (7-18) H Creatinine 1.8 MG/DL (0.55-1.30) H Estimat Glomerular Filtration Rate 46.2 mL/min (>60) Glucose Level 105 MG/DL (74-106) Calcium Level 8.1 MG/DL (8.5-10.1) L Current Medications Medications (Trade) Dose Ordered Sig/Allyn Route PRN Reason Start Time Stop Time Status Last Admin Dose Admin Acetaminophen (Tylenol) 650 mg Q4H PRN ORAL fever 05/20/18 10:30 06/17/18 22:29 Al Hydroxide/Mg Hydroxide (Mylanta II) 30 ml Q6H PRN ORAL dyspepsia 05/20/18 10:30 06/17/18 22:29 Ceftriaxone Sodium 1 gm/ Dextrose 55 ml @ 110 mls/hr Q24H IVPB 05/20/18 16:00 05/26/18 15:59 05/20/18 15:43 Chlorhexidine Gluconate (Kalani-Hex 2%) 1 applic DAILY@2000 TOPIC 05/20/18 20:00 06/19/18 19:59 05/20/18 19:59 Dextrose (Dextrose 50%) STAT PRN IV Hypoglycemia 05/20/18 22:30 06/17/18 22:29 Digoxin (Lanoxin) 0.125 mg DAILY ORAL 05/21/18 09:00 06/18/18 08:59 05/21/18 08:42 Dobutamine HCl 250 ml @ 20.548 mls/ hr [id number] IV 05/20/18 12:00 06/19/18 11:59 05/21/18 00:04 Furosemide (Lasix) 40 mg EVERY 12 HOURS IV 05/21/18 21:00 06/20/18 20:59 Gabapentin (Neurontin) 100 mg THREE TIMES A DAY ORAL 05/20/18 13:00 06/18/18 08:59 05/21/18 08:43 Levothyroxine Sodium (Synthroid) 50 mcg DAILY@0630 ORAL 05/21/18 06:30 06/19/18 06:29 05/21/18 06:07 Levothyroxine Sodium (Synthroid) 125 mcg BEFORE BREAKFAST ORAL 05/21/18 06:30 06/18/18 06:29 05/21/18 06:05 Lorazepam (Ativan 2mg/ml 1ml) 0.5 mg Q4H PRN IV For Anxiety 05/20/18 10:30 05/25/18 22:29 Ondansetron HCl (Zofran) 4 mg Q6H PRN IVP Nausea & Vomiting 05/20/18 10:30 06/17/18 22:29 Oxycodone HCl (Roxicodone) 10 mg Q8H PRN ORAL Severe Pain (Pain Scale 7-10) 05/20/18 14:45 05/27/18 14:44 05/21/18 08:41 Polyethylene Glycol (Miralax) 17 gm HSPRN PRN ORAL Constipation 05/20/18 22:30 06/17/18 22:29 Zolpidem Tartrate (Ambien) 5 mg HSPRN PRN ORAL Insomnia 05/20/18 22:30 05/25/18 22:29 05/20/18 22:06 Melisa Jefferson M.D. May 21, 2018 11:31
[2018-05-21 12:00] VITALS: BP 118/78
--- NOTE | 2018-05-21 12:39 | General Progress Note ---
Assessment/Plan Problem List: (1) Ascites ICD Codes: R18.8 - Ascites SNOMED: 814789297 (2) Cardiomyopathy due to hypertension, with heart failure ICD Codes: I11.0 - Cardiomyopathy due to hypertension, with heart failure; I42.9 - Cardiomyopathy, unspecified SNOMED: 38568368 (3) Cirrhosis ICD Codes: K74.60 - Unspecified cirrhosis of liver SNOMED: 63366154 (4) Hypothyroidism ICD Codes: E03.9 - Hypothyroidism SNOMED: 48253189 (5) Hepatitis C ICD Codes: B19.20 - Hepatitis C SNOMED: 07854233 (6) Anemia ICD Codes: D64.9 - Anemia, unspecified SNOMED: 324585873 (7) Hypoglycemia ICD Codes: E16.2 - Hypoglycemia, unspecified SNOMED: 300074329 Status: unchanged Assessment/Plan otpt diet pain control gi f/u cbc bmp am dc plan w hh Subjective Constitutional: Reports: weakness Allergies: Coded Allergies: HYDROMORPHONE (Verified Allergy, Unknown, 12/28/10) All Systems: reviewed and negative except above Subjective sl nausea and abd pain Objective Last 24 Hour Vital Signs Date Time Temp Pulse Resp B/P (MAP) Pulse Ox O2 Delivery O2 Flow Rate FiO2 05/21/18 08:42 68 05/21/18 08:00 93 05/21/18 08:00 97.0 68 20 138/69 (92) 97 05/21/18 08:00 Room Air 05/21/18 04:00 98.0 78 21 120/80 (93) 98 05/21/18 04:00 83 05/21/18 04:00 Room Air 05/21/18 00:04 117/70 05/21/18 00:00 Room Air 05/21/18 00:00 85 05/21/18 00:00 97.7 86 21 117/70 (86) 99 05/20/18 20:00 Room Air 05/20/18 20:00 97.9 63 21 113/61 (78) 99 05/20/18 20:00 80 05/20/18 16:00 84 05/20/18 16:00 97.9 82 21 116/64 (81) 97 05/20/18 16:00 Room Air Intake and Output 05/20/18 05/21/18 19:00 07:00 Intake Total 488.836 ml 485.128 ml Output Total 1650 ml 1100 ml Balance -1161.164 ml -614.872 ml Intake Oral 290 ml 240 ml IV Total 198.836 ml 245.128 ml Output Urine Total 1650 ml 1100 ml Laboratory Tests 05/21/18 04:30: White Blood Count 5.3, Red Blood Count 3.48L, Hemoglobin 9.1L, Hematocrit 29.6L , Mean Corpuscular Volume 85, Mean Corpuscular Hemoglobin 26.3L, Mean Corpuscular Hemoglobin Concent 30.9L, Red Cell Distribution Width 20.5H, Platelet Count 162, Mean Platelet Volume 5.8L, Neutrophils (%) (Auto) 76.2H, Lymphocytes (%) (Auto) 9.4L, Monocytes (%) (Auto) 11.4H, Eosinophils (%) (Auto) 1.9, Basophils (%) (Auto) 1.1, Sodium Level 134L, Potassium Level 4.0, Chloride Level 98, Carbon Dioxide Level 27, Anion Gap 9, Blood Urea Nitrogen 63H, Creatinine 1.8H, Estimat Glomerular Filtration Rate 46.2, Glucose Level 105, Calcium Level 8.1L Height (Feet): 6 Height (Inches): 0.00 Weight (Pounds): 151 General Appearance: lethargic EENT: normal ENT inspection Neck: normal alignment Cardiovascular: normal peripheral pulses, normal rate, regular rhythm Respiratory/Chest: chest wall non-tender, lungs clear, normal breath sounds Abdomen: normal bowel sounds, hypoactive bowel sounds, distended Extremities: normal inspection Edema: no edema noted Arm (L), no edema noted Arm (R), no edema noted Leg (L), no edema noted Leg (R), no edema noted Pedal (L), no edema noted Pedal (R), no edema noted Generalized Neurologic: responsive, motor weakness Skin: normal pigmentation, warm/dry Shahid Cherry DO May 21, 2018 12:39
[2018-05-21 15:55] VITALS: BP 124/76
[2018-05-21] MEDS: cefTRIAXone 1 GM in D5W 55 ML IVPB SCH (15:55)
--- NOTE | 2018-05-21 17:31 | Consultation ---
Consult Note Consult Note Dictated # [id number] Ken Villaseñor MD May 21, 2018 17:31
[2018-05-21 20:00] VITALS: BP 132/85
[2018-05-21] MEDS: Dyna-Hex 2% Top Sol 2oz TOPIC SCH (20:40)
--- NOTE | 2018-05-21 22:00 | Consultation ---
DATE OF CONSULTATION: 05/21/2018 CONSULTING PHYSICIAN: Sherwin Hawkins M.D. REFERRING PHYSICIAN: Shahid Cherry D.O. REASON FOR CONSULTATION: 1. Acute kidney injury. 2. CKD stage 4. HISTORY OF PRESENT ILLNESS: The patient is a 63-year-old gentleman, well known to my nephrological service. The patient was admitted for shortness of breath and ascites. The patient has end-stage cardiomyopathy requiring dobutamine drips. Baseline creatinine approximately 1.6 to 1.8. He was admitted with short of breath with ascites on his last admission and had a paracentesis. He returns again in similar condition. Dobutamine drip and IV diuretics were initiated. His creatinine has improved since admission from 2.5 to 1.8 and his BUN is down from 82 to 63. The patient feels better. No chest pain and his breathing has improved. He still feels slightly abdominally distended. PAST MEDICAL HISTORY: 1. Ascites. 2. Cirrhosis. 3. Hepatitis C. 4. CHF. 5. CKD stage 4. 6. Hypothyroidism. 7. Hypertension. PAST SURGICAL HISTORY: Multiple paracenteses. ALLERGIES: Dilaudid. SOCIAL HISTORY: Denies any tobacco, alcohol, or illicit drug use. FAMILY HISTORY: Positive for hypertension. REVIEW OF SYSTEMS: NEUROLOGICAL: The patient denies headache, change in vision, syncope, or presyncopal episodes. CARDIOVASCULAR: No current chest pain, palpitations, or angina. PULMONARY: Mild shortness of breath. Nonproductive cough. GASTROINTESTINAL/GENITOURINARY: Abdominal distention. No pain. No nausea, vomiting, or diarrhea. ENDOCRINOLOGY: No night sweats, fevers, or chills. MUSCULOSKELETAL: The patient is feeling weak, tired and fatigued. PHYSICAL EXAMINATION: VITAL SIGNS: Blood pressure 138/69, respiratory rate 20, pulse 93, and temperature 97.0 degrees. GENERAL: The patient is awake and alert, not otherwise in distress. HEENT: Extraocular muscles are intact. No lymphadenopathy noted. CARDIOVASCULAR: S1, S2. No rubs or gallops. PULMONARY: Mild upper airway rhonchi with basilar rales. ABDOMEN: Distended, mildly tense. Positive fluid wave shift. No tenderness. EXTREMITIES: Trace edema to left lower extremity. LABORATORY DATA: Labs dated May 21, 2018, sodium 134, potassium 4, BUN 63, and creatinine 1.8. Calcium 8.1. Hemoglobin 9.1, white cell count 5.3, and platelet count 162. ASSESSMENT AND PLAN: 1. Acute kidney injury on chronic kidney disease, stage 4 secondary to cardiorenal syndrome from low ejection fraction. Continue dobutamine drip with increased cardiac outflow. Renal function has improved with good urinary output. Continue diuretic therapy. Avoid hypotensive events. The patient now within baseline creatinine range. No further renal investigations required. At time of discharge, the patient will be discharged on diuretics of Aldactone and Lasix. 2. Hyperkalemia, has resolved. 3. Decompensated congestive heart failure. The patient on dobutamine drip and Lasix. Aldactone has been temporarily discontinued. 4. Ascites. Cardiogenic in nature. Has underlying hepatitis. PRN multiple paracenteses. 5. Shortness of breath, has resolved. Let me take this opportunity to thank Dr. Cherry. Sherwin Hawkins MD DR: FAB JOB#: [id number] CC:
--- NOTE | 2018-05-21 23:45 | Consultation ---
DATE OF CONSULTATION: 05/21/2018 NEPHROLOGY CONSULTATION CONSULTING PHYSICIAN: Ken Villaseñor M.D. REASON FOR CONSULT: Underlying kidney dysfunction. HISTORY OF PRESENT ILLNESS: This is a very pleasant 63-year-old male with a history of severe cardiomyopathy with ejection fraction in the range of 10%, also cirrhosis of the liver, secondary to chronic hepatitis C, has been brought to the operating room of [facility] with increasing shortness of breath and some abdominal girth increase and some discomfort. Has had a serum creatinine of about 2.5 mg/dL, which has gradually come down to about 1.8 mg/dL. His baseline serum creatinine has been in the range of 1.7 to 1.8 mg/dL. I have been asked to see him for his underlying kidney dysfunction. He has been also started on dobutamine drip per Cardiology. He denies any increasing shortness of breath at this point. PAST MEDICAL HISTORY: Significant for coronary artery disease, previous myocardial infarction, severe cardiomyopathy with ejection fraction of 10%, previous episodes of congestive heart failure, gastroesophageal reflux disease, cirrhosis of the liver, secondary to chronic hepatitis C, and also atrial fibrillation. PAST SURGICAL HISTORY: Status post AICD placement. SOCIAL HISTORY: Does not smoke. He used to drink socially. No drugs. He worked as a . MEDICATIONS: Include Rocephin 1 g intravenous every 24 hours, dobutamine drip, Mylanta 30 mL by mouth q.6 hours as needed dyspepsia, digoxin 0.125 mg by mouth daily, Lasix 40 mg intravenous q.12 h., gabapentin 100 mg p.o. three times a day, Synthroid 0.05 mg by mouth daily, Lorazepam 0.5 mg intravenous q.6 hours as needed, oxycodone IR 10 mg by mouth q.8 hours as needed, Miralax 17 g p.o. daily, spironolactone 25 mg p.o. daily, and Ambien 5 mg by mouth at bedtime as needed insomnia. REVIEW OF SYSTEMS: GENERAL: He has not had any significant weight change. Denies any chills, fever. CARDIOVASCULAR: Denies any chest pain. He has had some degree of dyspnea with exertion. GASTROINTESTINAL: Denies any nausea, vomiting, or diarrhea. He has some increasing abdominal girth. URINARY: He denies any urinary foaminess, hematuria. He also had some degree of pyuria nevertheless. He has been started on ceftriaxone. NEUROLOGICAL: Denies any paresthesia, muscle weakness, diplopia, or seizure. RESPIRATORY: Denies any cough, sputum production, hemoptysis, or wheezing. HEMATOLOGICAL: Denies any easy bruising or easy bleeding. MUSCULOSKELETAL: Denies any arthralgia or myalgia. ENDOCRINE: No diagnosis of diabetes. He is on thyroid supplementation nevertheless. The remainder of the review of the systems has been essentially negative. PHYSICAL EXAMINATION: GENERAL: He does not seem to be in much acute distress. VITAL SIGNS: Blood pressure is 124/76, pulse of 104, respirations 20, and temperature 97.7. HEENT: Head is atraumatic. Eyes, pupils reactive to light. No evidence of papilledema. Ears, canals are clear. Tympanic membranes are intact. Nose is patent without any nasal discharge. Throat without inflammation or exudate. NECK: Supple. Jugular venous distention is within normal limits. No cervical adenopathy. No thyromegaly. HEART: Irregularly irregular. LUNGS: Decreased air excursion bilaterally. ABDOMEN: Supple. There is ascites present. Hepatomegaly about 5 cm below the rib cage. EXTREMITIES: Lower extremities show trace to 1+ pedal edema. NEUROLOGICAL: Cranial nerves seems to be grossly intact. There is no focal neurological deficit present. LABORATORY AND DIAGNOSTIC DATA: Laboratory data is showing sodium 134, potassium 4.0, chloride 98, carbon dioxide 27, BUN 63, and creatinine is 1.8. WBC is 5.3, hemoglobin is 9.1, hematocrit 29.6, and platelets 162,000. A urinalysis had shown 3+ protein, 1+ ketones, 0 to 2 RBCs, 2 to 4 WBCs, and 10 to 15 hyaline casts. Urine toxicology screen is positive for marijuana. IMPRESSION: 1. He has evidence of acute kidney injury, superimposed on chronic kidney disease, might have been related to some cardiorenal syndrome. 2. Decompensated cirrhosis of the liver due to his hepatitis C. 3. He does not seem to be in congestive heart failure at this point. 4. Severe cardiomyopathy with ejection fraction of 30%. PLAN: 1. I am going to discontinue Lasix at this point. 2. I would obtain a urine sodium. 3. We are going to obtain a renal ultrasound to evaluate the size and texture of the kidneys and we will go from there. Ken Villaseñor M.D. DR: KORY JOB#: [id number] CC:
[2018-05-22] VITALS: BP 120/76
[2018-05-22] MEDS: oxyCODONE 5mg IR tab ORAL PRN ×2 (01:25→10:20)
[2018-05-22] MEDS: DOBUTamine 250mg/250ml Premix 250 ML IV SCH ×2 (01:28→13:42)
[2018-05-22 04:00] VITALS: BP 113/67
[2018-05-22] MEDS: Levothyroxine 125mcg tab ORAL SCH (07:20)
[2018-05-22 08:00] VITALS: BP 109/69
--- NOTE | 2018-05-22 08:19 | Nephrology Progress Note ---
Assessment/Plan Assessment/Plan A/P 1) ARIS on CKD 4- AM labs pending - cardioerenal in nature - Cr yesterday 1.8 and within baseline range - OK for DC from renal point 2) CHF- EF 10% - dobutamine, lasix 3) Cirrhosis/Ascites - per GI mgmt Subjective Date patient seen: May 22, 2018 Time patient seen: 08:15 ROS Limited/Unobtainable: No Allergies: Coded Allergies: HYDROMORPHONE (Verified Allergy, Unknown, 12/28/10) All Systems: reviewed and negative except above Subjective Patient feels better. SOB resolved Objective Last 24 Hour Vital Signs Date Time Temp Pulse Resp B/P (MAP) Pulse Ox O2 Delivery O2 Flow Rate FiO2 05/22/18 04:00 Room Air 05/22/18 04:00 97.0 65 20 113/67 (82) 98 05/22/18 04:00 88 05/22/18 01:28 120/76 05/22/18 00:00 84 05/22/18 00:00 97.7 89 20 120/76 (91) 98 05/22/18 00:00 Room Air 05/21/18 20:00 88 05/21/18 20:00 97.2 87 20 132/85 (101) 100 05/21/18 20:00 Room Air 05/21/18 17:45 92 05/21/18 16:00 Room Air 05/21/18 15:55 97.7 104 20 124/76 (92) 100 05/21/18 13:23 90 05/21/18 13:10 138/69 05/21/18 12:00 Room Air 05/21/18 12:00 97.5 76 20 118/78 (91) 98 05/21/18 08:42 68 Intake and Output 05/21/18 05/22/18 19:00 07:00 Intake Total 1741.576 ml 716.987 ml Output Total 700 ml Balance 1041.576 ml 716.987 ml Intake Oral 1440 ml 480 ml IV Total 301.576 ml 236.987 ml Output Urine Total 700 ml # Voids 6 Laboratory Tests 05/21/18 19:33: Urine Random Sodium 40 Height (Feet): 6 Height (Inches): 0.00 Weight (Pounds): 151 General Appearance: no apparent distress, alert EENT: normal ENT inspection Neck: normal alignment, supple Cardiovascular: normal rate, regular rhythm Respiratory/Chest: rhonchi - bilaterally Abdomen: non tender, soft, distended Edema: no edema noted Arm (L), no edema noted Arm (R), no edema noted Leg (L), no edema noted Leg (R), no edema noted Pedal (L), no edema noted Pedal (R), no edema noted Generalized Sherwin Hawkins MD May 22, 2018 08:19
--- NOTE | 2018-05-22 08:54 | Diagnostic Imaging Report ---
Indication: Acute renal failure Technique: Grayscale and duplex images of the kidneys, retroperitoneum, and bladder were obtained.. Doppler interrogation of the bilateral kidneys Comparison: none Findings: Right kidney measures 11.4 cm in length. Left kidney measures by 1.4 cm in length. Both kidneys demonstrate normal echogenicity. No hydronephrosis. There is a possible punctate calcification in the right renal collecting system. Normal inferior vena cava. Bladder is normal, prevoid volume 09/30/2017 255 mL. Patient did not void at the end of the procedure. Prostate volume is 44 mL. Small amount of ascites fluid is noted. Since the prior study, the ascites in the possible right renal calculus are new findings Impression: Negative for hydronephrosis Possible small nonobstructive right renal calyceal calculus Ascites.
--- NOTE | 2018-05-22 10:00 | Pulmonology Progress Note ---
Assessment/Plan Problems: (1) Ascites (2) Emphysema lung (3) Cardiomyopathy due to hypertension, with heart failure (4) Right-sided heart failure (5) Cirrhosis (6) Hypothyroidism (7) ICD (implantable cardioverter-defibrillator) in place (8) Hepatitis C (9) Anemia Assessment/Plan feeling bettter on Dobutamine drip renal function stable check electrolytes symptomatic treatment d/w Dr. Zhang poor overall prognosis Subjective ROS Limited/Unobtainable: No Constitutional: Reports: no symptoms HEENT: Repors: no symptoms Respiratory: Reports: no symptoms Allergies: Coded Allergies: HYDROMORPHONE (Verified Allergy, Unknown, 12/28/10) Objective Last 24 Hour Vital Signs Date Time Temp Pulse Resp B/P (MAP) Pulse Ox O2 Delivery O2 Flow Rate FiO2 05/22/18 08:00 85 05/22/18 08:00 97.8 93 18 109/69 (82) 99 05/22/18 04:00 Room Air 05/22/18 04:00 97.0 65 20 113/67 (82) 98 05/22/18 04:00 88 05/22/18 01:28 120/76 05/22/18 00:00 84 05/22/18 00:00 97.7 89 20 120/76 (91) 98 05/22/18 00:00 Room Air 05/21/18 20:00 88 05/21/18 20:00 97.2 87 20 132/85 (101) 100 05/21/18 20:00 Room Air 05/21/18 17:45 92 05/21/18 16:00 Room Air 05/21/18 15:55 97.7 104 20 124/76 (92) 100 05/21/18 13:23 90 05/21/18 13:10 138/69 05/21/18 12:00 Room Air 05/21/18 12:00 97.5 76 20 118/78 (91) 98 Intake and Output 05/21/18 05/22/18 18:59 06:59 Intake Total 1741.576 ml 737.535 ml Output Total 700 ml Balance 1041.576 ml 737.535 ml Intake Oral 1440 ml 480 ml IV Total 301.576 ml 257.535 ml Output Urine Total 700 ml # Voids 6 General Appearance: WD/WN HEENT: normocephalic, atraumatic Respiratory/Chest: chest wall non-tender, lungs clear Cardiovascular: normal peripheral pulses, normal rate Abdomen: normal bowel sounds, soft, non tender Genitourinary: normal external genitalia Extremities: no cyanosis 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 Lymphatic: no neck adenopathy Microbiology Date/Time Source Procedure Growth Status 05/19/18 14:51 Ascities Fluid Gram Stain - Final Resulted 05/19/18 14:51 Ascities Fluid Body Fluid Culture - Preliminary NO GROWTH Resulted Laboratory Tests 05/21/18 19:33: Urine Random Sodium 40 Current Medications Medications (Trade) Dose Ordered Sig/Allyn Route PRN Reason Start Time Stop Time Status Last Admin Dose Admin Acetaminophen (Tylenol) 650 mg Q4H PRN ORAL fever 05/20/18 10:30 06/17/18 22:29 Al Hydroxide/Mg Hydroxide (Mylanta II) 30 ml Q6H PRN ORAL dyspepsia 05/20/18 10:30 06/17/18 22:29 Ceftriaxone Sodium 1 gm/ Dextrose 55 ml @ 110 mls/hr Q24H IVPB 05/20/18 16:00 05/26/18 15:59 05/21/18 15:55 Chlorhexidine Gluconate (Kalani-Hex 2%) 1 applic DAILY@2000 TOPIC 05/20/18 20:00 06/19/18 19:59 05/21/18 20:40 Dextrose (Dextrose 50%) STAT PRN IV Hypoglycemia 05/20/18 22:30 06/17/18 22:29 Digoxin (Lanoxin) 0.125 mg DAILY ORAL 05/21/18 09:00 06/18/18 08:59 05/21/18 08:42 Dobutamine HCl 250 ml @ 20.548 mls/ hr [id number] IV 05/20/18 12:00 06/19/18 11:59 05/22/18 01:28 Furosemide (Lasix) 40 mg EVERY 12 HOURS IV 05/21/18 21:00 06/20/18 20:59 05/21/18 20:40 Gabapentin (Neurontin) 100 mg THREE TIMES A DAY ORAL 05/20/18 13:00 06/18/18 08:59 05/21/18 17:34 Levothyroxine Sodium (Synthroid) 50 mcg DAILY@0630 ORAL 05/21/18 06:30 06/19/18 06:29 05/22/18 07:20 Levothyroxine Sodium (Synthroid) 125 mcg BEFORE BREAKFAST ORAL 05/21/18 06:30 06/18/18 06:29 05/22/18 07:20 Lorazepam (Ativan 2mg/ml 1ml) 0.5 mg Q4H PRN IV For Anxiety 05/20/18 10:30 05/25/18 22:29 Ondansetron HCl (Zofran) 4 mg Q6H PRN IVP Nausea & Vomiting 05/20/18 10:30 06/17/18 22:29 Oxycodone HCl (Roxicodone) 10 mg Q8H PRN ORAL Severe Pain (Pain Scale 7-10) 05/20/18 14:45 05/27/18 14:44 05/22/18 01:25 Polyethylene Glycol (Miralax) 17 gm HSPRN PRN ORAL Constipation 05/20/18 22:30 06/17/18 22:29 Zolpidem Tartrate (Ambien) 5 mg HSPRN PRN ORAL Insomnia 05/20/18 22:30 05/25/18 22:29 05/20/18 22:06 Andrzej Chavarria MD May 22, 2018 10:00
[2018-05-22] MEDS: Digoxin 0.125mg tab ORAL SCH (10:19)
--- NOTE | 2018-05-22 10:26 | GI Progress Note ---
Assessment/Plan Problems: (1) Anemia ICD Codes: D64.9 - Anemia, unspecified SNOMED: 237301788 (2) Hepatitis C ICD Codes: B19.20 - Hepatitis C SNOMED: 10821710 (3) Right-sided heart failure ICD Codes: I50.9 - Right-sided heart failure SNOMED: 758974106 (4) Ascites ICD Codes: R18.8 - Ascites SNOMED: 053304237 (5) Acute respiratory failure ICD Codes: J96.00 - Acute respiratory failure SNOMED: 99528793 Status: stable Status Narrative Discussed with Dr. Ryan. Assessment/Plan hx of Hep C in 2014 s/p tx >> hep panel redrawn in 2016 was negative s/p colonoscopy with one polyp 06/26/16 s/p paracentesis 1.8L >> SBP negative cardiac ascites, fu cardiology diuresis low sodium diet bowel regime zofran prn ppi pain mgmt fu labs repeat colonoscopy in 2021 The patient was seen and examined at bedside and all new and available data was reviewed in the patients chart. I agree with the above findings, impression and plan. (Patient seen earlier today. Signature stamp does not reflect patient encounter time.). - Beto Ryan MD Subjective Subjective abdominal discomfort/tightness Objective Last 24 Hour Vital Signs Date Time Temp Pulse Resp B/P (MAP) Pulse Ox O2 Delivery O2 Flow Rate FiO2 05/22/18 10:19 85 05/22/18 08:00 85 05/22/18 08:00 97.8 93 18 109/69 (82) 99 05/22/18 04:00 Room Air 05/22/18 04:00 97.0 65 20 113/67 (82) 98 05/22/18 04:00 88 05/22/18 01:28 120/76 05/22/18 00:00 84 05/22/18 00:00 97.7 89 20 120/76 (91) 98 05/22/18 00:00 Room Air 05/21/18 20:00 88 05/21/18 20:00 97.2 87 20 132/85 (101) 100 05/21/18 20:00 Room Air 05/21/18 17:45 92 05/21/18 16:00 Room Air 05/21/18 15:55 97.7 104 20 124/76 (92) 100 05/21/18 13:23 90 05/21/18 13:10 138/69 05/21/18 12:00 Room Air 05/21/18 12:00 97.5 76 20 118/78 (91) 98 Intake and Output 05/21/18 05/22/18 18:59 06:59 Intake Total 1741.576 ml 737.535 ml Output Total 700 ml Balance 1041.576 ml 737.535 ml Intake Oral 1440 ml 480 ml IV Total 301.576 ml 257.535 ml Output Urine Total 700 ml # Voids 6 Laboratory Tests Test 05/21/18 19:33 Urine Random Sodium 40 mmol/L (20-110) Height (Feet): 6 Height (Inches): 0.00 Weight (Pounds): 151 General Appearance: WD/WN, no apparent distress, alert Cardiovascular: normal rate Respiratory/Chest: normal breath sounds, no respiratory distress Abdominal Exam: normal bowel sounds, non tender, soft Extremities: non-tender Kiarra Bird [employer] May 22, 2018 10:26
[2018-05-22 12:00] VITALS: BP 112/85
--- NOTE | 2018-05-22 12:00 | Diagnostic Imaging Report ---
APPROVED REPORT CPT Code: 96293 Present Symptoms Lower Extremity Pain: Bilateral BILATERAL: Imaging reveals a patent deep venous system bilaterally. There is no evidence of thrombus within the femoral, popliteal or tibial segments. The greater saphenous veins are also within normal limits. Doppler indicates normal spontaneous flow within these segments.
--- NOTE | 2018-05-22 12:00 | Infectious Diseases Prog Note ---
Assessment/Plan Assessment/Plan Assessment: Abd pain/distention Ascites- r/o probable SBP -s/p paracentesis 1.8 L: WBC 200 ( N 22)- fluid not consistent with SBP; wound cx NTD Afebrile No leukocytosis -CXR: Cardiomegaly. No acute process -u/a neg; Ucx Kpna (R amp), GNR#2, #3 (colonziers0 ARIS, increased, now improving severe cardiomyopathy w/ EF <10% CAD/MD GERD HTN Hep C end-stage liver disease w/ cirrhosis and ascites chronic pain on oxycodone Plan: -Cont empiric Ceftriaxone #4/5 for probable SBP pending fluid cx -f/u cx -Monitor CBC/CMP, temperatures -aspiration precautions Thank you for this consultation. Will continue to follow along with you. Discussed with RN. Subjective Allergies: Coded Allergies: HYDROMORPHONE (Verified Allergy, Unknown, 12/28/10) Subjective afebrile At RA no leukocytosis fluid cx NTD Objective Vital Signs Last 24 Hour Vital Signs Date Time Temp Pulse Resp B/P (MAP) Pulse Ox O2 Delivery O2 Flow Rate FiO2 05/22/18 10:19 85 05/22/18 08:00 85 05/22/18 08:00 97.8 93 18 109/69 (82) 99 05/22/18 04:00 Room Air 05/22/18 04:00 97.0 65 20 113/67 (82) 98 05/22/18 04:00 88 05/22/18 01:28 120/76 05/22/18 00:00 84 05/22/18 00:00 97.7 89 20 120/76 (91) 98 05/22/18 00:00 Room Air 05/21/18 20:00 88 05/21/18 20:00 97.2 87 20 132/85 (101) 100 05/21/18 20:00 Room Air 05/21/18 17:45 92 05/21/18 16:00 Room Air 05/21/18 15:55 97.7 104 20 124/76 (92) 100 05/21/18 13:23 90 05/21/18 13:10 138/69 05/21/18 12:00 Room Air 05/21/18 12:00 97.5 76 20 118/78 (91) 98 Height (Feet): 6 Height (Inches): 0.00 Weight (Pounds): 151 Objective General Appearance: WD/WN Lines, tubes and drains: peripheral HEENT: normocephalic, atraumatic Neck: non-tender, normal alignment Respiratory/Chest: chest wall non-tender, lungs clear Cardiovascular/Chest: normal peripheral pulses Abdomen: normal bowel sounds, non tender Extremities: normal range of motion Skin Exam: normal pigmentation 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 Microbiology Date/Time Source Procedure Growth Status 05/19/18 14:51 Ascities Fluid Gram Stain - Final Resulted 05/19/18 14:51 Ascities Fluid Body Fluid Culture - Preliminary NO GROWTH AFTER 24 HOURS Resulted Laboratory Tests Test 05/21/18 19:33 Urine Random Sodium 40 mmol/L (20-110) Current Medications Medications (Trade) Dose Ordered Sig/Allyn Route PRN Reason Start Time Stop Time Status Last Admin Dose Admin Acetaminophen (Tylenol) 650 mg Q4H PRN ORAL fever 05/20/18 10:30 06/17/18 22:29 Al Hydroxide/Mg Hydroxide (Mylanta II) 30 ml Q6H PRN ORAL dyspepsia 05/20/18 10:30 06/17/18 22:29 Ceftriaxone Sodium 1 gm/ Dextrose 55 ml @ 110 mls/hr Q24H IVPB 05/20/18 16:00 05/26/18 15:59 05/21/18 15:55 Chlorhexidine Gluconate (Kalani-Hex 2%) 1 applic DAILY@2000 TOPIC 05/20/18 20:00 06/19/18 19:59 05/21/18 20:40 Dextrose (Dextrose 50%) STAT PRN IV Hypoglycemia 05/20/18 22:30 06/17/18 22:29 Digoxin (Lanoxin) 0.125 mg DAILY ORAL 05/21/18 09:00 06/18/18 08:59 05/22/18 10:19 Dobutamine HCl 250 ml @ 20.548 mls/ hr [id number] IV 05/20/18 12:00 06/19/18 11:59 05/22/18 01:28 Furosemide (Lasix) 40 mg EVERY 12 HOURS IV 05/21/18 21:00 06/20/18 20:59 05/22/18 10:21 Gabapentin (Neurontin) 100 mg THREE TIMES A DAY ORAL 05/20/18 13:00 06/18/18 08:59 05/22/18 10:20 Levothyroxine Sodium (Synthroid) 50 mcg DAILY@0630 ORAL 05/21/18 06:30 06/19/18 06:29 05/22/18 07:20 Levothyroxine Sodium (Synthroid) 125 mcg BEFORE BREAKFAST ORAL 05/21/18 06:30 06/18/18 06:29 05/22/18 07:20 Lorazepam (Ativan 2mg/ml 1ml) 0.5 mg Q4H PRN IV For Anxiety 05/20/18 10:30 05/25/18 22:29 Ondansetron HCl (Zofran) 4 mg Q6H PRN IVP Nausea & Vomiting 05/20/18 10:30 06/17/18 22:29 Oxycodone HCl (Roxicodone) 10 mg Q8H PRN ORAL Severe Pain (Pain Scale 7-10) 05/20/18 14:45 05/27/18 14:44 05/22/18 10:20 Polyethylene Glycol (Miralax) 17 gm HSPRN PRN ORAL Constipation 05/20/18 22:30 06/17/18 22:29 Zolpidem Tartrate (Ambien) 5 mg HSPRN PRN ORAL Insomnia 05/20/18 22:30 05/25/18 22:29 05/20/18 22:06 Melisa Jefferson M.D. May 22, 2018 12:00
--- NOTE | 2018-05-22 12:10 | General Progress Note ---
Assessment/Plan Problem List: (1) Ascites ICD Codes: R18.8 - Ascites SNOMED: 745351623 (2) Cardiomyopathy due to hypertension, with heart failure ICD Codes: I11.0 - Cardiomyopathy due to hypertension, with heart failure; I42.9 - Cardiomyopathy, unspecified SNOMED: 15384063 (3) Cirrhosis ICD Codes: K74.60 - Unspecified cirrhosis of liver SNOMED: 02611705 (4) Hypothyroidism ICD Codes: E03.9 - Hypothyroidism SNOMED: 29224736 (5) Hepatitis C ICD Codes: B19.20 - Hepatitis C SNOMED: 32627816 (6) Anemia ICD Codes: D64.9 - Anemia, unspecified SNOMED: 190115598 (7) Hypoglycemia ICD Codes: E16.2 - Hypoglycemia, unspecified SNOMED: 903849283 Status: stable, progressing Assessment/Plan otpt diet pain control gi f/u dc w hh Subjective Constitutional: Reports: weakness Allergies: Coded Allergies: HYDROMORPHONE (Verified Allergy, Unknown, 12/28/10) All Systems: reviewed and negative except above Subjective calm wants to go home Objective Last 24 Hour Vital Signs Date Time Temp Pulse Resp B/P (MAP) Pulse Ox O2 Delivery O2 Flow Rate FiO2 05/22/18 10:19 85 05/22/18 08:00 85 05/22/18 08:00 97.8 93 18 109/69 (82) 99 05/22/18 04:00 Room Air 05/22/18 04:00 97.0 65 20 113/67 (82) 98 05/22/18 04:00 88 05/22/18 01:28 120/76 05/22/18 00:00 84 05/22/18 00:00 97.7 89 20 120/76 (91) 98 05/22/18 00:00 Room Air 05/21/18 20:00 88 05/21/18 20:00 97.2 87 20 132/85 (101) 100 05/21/18 20:00 Room Air 05/21/18 17:45 92 05/21/18 16:00 Room Air 05/21/18 15:55 97.7 104 20 124/76 (92) 100 05/21/18 13:23 90 05/21/18 13:10 138/69 Intake and Output 05/21/18 05/22/18 18:59 06:59 Intake Total 1741.576 ml 737.535 ml Output Total 700 ml Balance 1041.576 ml 737.535 ml Intake Oral 1440 ml 480 ml IV Total 301.576 ml 257.535 ml Output Urine Total 700 ml # Voids 6 Laboratory Tests 05/21/18 19:33: Urine Random Sodium 40 Height (Feet): 6 Height (Inches): 0.00 Weight (Pounds): 151 General Appearance: alert EENT: normal ENT inspection Neck: normal alignment Cardiovascular: normal peripheral pulses, normal rate, regular rhythm Respiratory/Chest: chest wall non-tender, lungs clear, normal breath sounds Abdomen: normal bowel sounds, hypoactive bowel sounds Extremities: normal inspection Edema: no edema noted Arm (L), no edema noted Arm (R), no edema noted Leg (L), no edema noted Leg (R), no edema noted Pedal (L), no edema noted Pedal (R), no edema noted Generalized Neurologic: responsive, motor weakness Skin: normal pigmentation, warm/dry Shahid Cherry DO May 22, 2018 12:10
[2018-05-22 13:48] LABS: BASOPHILS % (AUTO) 1.3 % (0.0-2.0); EOSINOPHILS % (AUTO) 3.1 % (0.0-3.0); HEMATOCRIT 31.5 % (42.0-52.0); HEMOGLOBIN 9.8 G/DL (14.2-18.0); LYMPHOCYTES % (AUTO) 8.8 % (20.0-45.0); MEAN CORPUSCULAR VOLUME 85 FL (80-99); MONOCYTES % (AUTO) 12.3 % (1.0-10.0); NEUTROPHILS % (AUTO) 74.6 % (45.0-75.0); PLATELET COUNT 157 K/UL (150-450); RED BLOOD COUNT 3.71 M/UL (4.70-6.10); RED CELL DISTRIBUTION WIDTH 20.6 % (11.6-14.8); WHITE BLOOD COUNT 4.5 K/UL (4.8-10.8)
[2018-05-22 14:07] LABS: ALANINE AMINOTRANSFERASE 29 U/L (12-78); ALBUMIN 3.1 G/DL (3.4-5.0); ALBUMIN/GLOBULIN RATIO 0.6 (1.0-2.7); ALKALINE PHOSPHATASE 146 U/L (46-116); ANION GAP 6 mmol/L (5-15); ASPARTATE AMINO TRANSFERASE 34 U/L (15-37); BILIRUBIN,TOTAL 1.4 MG/DL (0.2-1.0); BLOOD UREA NITROGEN 36 mg/dL (7-18); CALCIUM 8.5 MG/DL (8.5-10.1); CARBON DIOXIDE 32 MMOL/L (21-32); CHLORIDE 97 MMOL/L (98-107); CREATININE 1.4 MG/DL (0.55-1.30); PHOSPHORUS 3.2 MG/DL (2.5-4.9); POTASSIUM 3.8 MMOL/L (3.5-5.1); SODIUM 135 MMOL/L (136-145)
[2018-05-22 14:14] LABS: BILIRUBIN,DIRECT 0.9 MG/DL (0.0-0.3)
--- NOTE | 2018-05-22 14:49 | Cardiac Electrophysiology PN ---
Assessment/Plan Assessment/Plan 1. Exacerbation of congestive heart failure with EF only 10%. Continue Aldactone and Lasix Wants to go home. Resume Coreg when off Dobutamine. 2. Status post [place] Bi-V ICD. Interrogation recently showed normal LV function. 3. Hepatitis and ascites. s/p 1.7 liter paracentesis 4. Persistent atrial fibrillation, status post ablation on Xarelto 5. Hypothyroidism on Synthroid. 6. Acute renal failure. On Dobutamine and off ACEI or ARB. Cr down to 1.4 DW RN Wants to go home Subjective Subjective Feeling better on Dobutamine drip 5 mcg. Wants to go home. Objective Last 24 Hour Vital Signs Date Time Temp Pulse Resp B/P (MAP) Pulse Ox O2 Delivery O2 Flow Rate FiO2 05/22/18 13:42 112/85 05/22/18 12:00 Room Air 05/22/18 12:00 98 05/22/18 12:00 97.3 93 18 112/85 (94) 99 05/22/18 10:19 85 05/22/18 08:00 Room Air 05/22/18 08:00 85 05/22/18 08:00 97.8 93 18 109/69 (82) 99 05/22/18 04:00 Room Air 05/22/18 04:00 97.0 65 20 113/67 (82) 98 05/22/18 04:00 88 05/22/18 01:28 120/76 05/22/18 00:00 84 05/22/18 00:00 97.7 89 20 120/76 (91) 98 05/22/18 00:00 Room Air 05/21/18 20:00 88 05/21/18 20:00 97.2 87 20 132/85 (101) 100 05/21/18 20:00 Room Air 05/21/18 17:45 92 05/21/18 16:00 Room Air 05/21/18 15:55 97.7 104 20 124/76 (92) 100 Intake and Output 05/21/18 05/22/18 18:59 06:59 Intake Total 1741.576 ml 737.535 ml Output Total 700 ml Balance 1041.576 ml 737.535 ml Intake Oral 1440 ml 480 ml IV Total 301.576 ml 257.535 ml Output Urine Total 700 ml # Voids 6 Laboratory Tests Test 05/21/18 19:33 05/22/18 13:20 Urine Random Sodium 40 mmol/L (20-110) White Blood Count 4.5 K/UL (4.8-10.8) L Red Blood Count 3.71 M/UL (4.70-6.10) L Hemoglobin 9.8 G/DL (14.2-18.0) L Hematocrit 31.5 % (42.0-52.0) L Mean Corpuscular Volume 85 FL (80-99) Mean Corpuscular Hemoglobin 26.3 PG (27.0-31.0) L Mean Corpuscular Hemoglobin Concent 31.0 G/DL (32.0-36.0) L Red Cell Distribution Width 20.6 % (11.6-14.8) H Platelet Count 157 K/UL (150-450) Mean Platelet Volume 5.7 FL (6.5-10.1) L Neutrophils (%) (Auto) 74.6 % (45.0-75.0) Lymphocytes (%) (Auto) 8.8 % (20.0-45.0) L Monocytes (%) (Auto) 12.3 % (1.0-10.0) H Eosinophils (%) (Auto) 3.1 % (0.0-3.0) H Basophils (%) (Auto) 1.3 % (0.0-2.0) Sodium Level 135 MMOL/L (136-145) L Potassium Level 3.8 MMOL/L (3.5-5.1) Chloride Level 97 MMOL/L (98-107) L Carbon Dioxide Level 32 MMOL/L (21-32) Anion Gap 6 mmol/L (5-15) Blood Urea Nitrogen 36 mg/dL (7-18) H Creatinine 1.4 MG/DL (0.55-1.30) H Estimat Glomerular Filtration Rate > 60 mL/min (>60) Glucose Level 113 MG/DL (74-106) H Calcium Level 8.5 MG/DL (8.5-10.1) Phosphorus Level 3.2 MG/DL (2.5-4.9) Magnesium Level 1.6 MG/DL (1.8-2.4) L Total Bilirubin 1.4 MG/DL (0.2-1.0) H Direct Bilirubin 0.9 MG/DL (0.0-0.3) H Aspartate Amino Transf (AST/SGOT) 34 U/L (15-37) Alanine Aminotransferase (ALT/SGPT) 29 U/L (12-78) Alkaline Phosphatase 146 U/L (46-116) H Total Protein 8.2 G/DL (6.4-8.2) Albumin 3.1 G/DL (3.4-5.0) L Globulin 5.1 g/dL Albumin/Globulin Ratio 0.6 (1.0-2.7) L Microbiology Date/Time Source Procedure Growth Status 05/19/18 14:51 Ascities Fluid Gram Stain - Final Resulted 05/19/18 14:51 Ascities Fluid Body Fluid Culture - Preliminary NO GROWTH AFTER 24 HOURS Resulted Objective HEAD AND NECK: Positive JVD LUNGS: Decreased breath sounds with basilar rales. CARDIOVASCULAR: Regular S1 and S2 with no gallop or murmur. Defibrillator in left subclavian. ABDOMEN: Ascites. EXTREMITIES: 1+ pitting edema. Rc Zhang MD May 22, 2018 14:49
--- NOTE | 2018-05-22 15:08 | Nephrology Progress Note ---
Assessment/Plan Assessment 1) ARIS is improveing with cardiac fx improving 2) No florid CHF clinically 3) HEPC 4) Cirrhosis of liver Plan: Continue current meassures Subjective Subjective He is less sob, creat is down to 1.4, renal US shows no hydro, there is bilateral echogenic kidneys, urine NA is 40 Objective Objective Last 24 Hour Vital Signs Date Time Temp Pulse Resp B/P (MAP) Pulse Ox O2 Delivery O2 Flow Rate FiO2 05/22/18 13:42 112/85 05/22/18 12:00 Room Air 05/22/18 12:00 98 05/22/18 12:00 97.3 93 18 112/85 (94) 99 05/22/18 10:19 85 05/22/18 08:00 Room Air 05/22/18 08:00 85 05/22/18 08:00 97.8 93 18 109/69 (82) 99 05/22/18 04:00 Room Air 05/22/18 04:00 97.0 65 20 113/67 (82) 98 05/22/18 04:00 88 05/22/18 01:28 120/76 05/22/18 00:00 84 05/22/18 00:00 97.7 89 20 120/76 (91) 98 05/22/18 00:00 Room Air 05/21/18 20:00 88 05/21/18 20:00 97.2 87 20 132/85 (101) 100 05/21/18 20:00 Room Air 05/21/18 17:45 92 05/21/18 16:00 Room Air 05/21/18 15:55 97.7 104 20 124/76 (92) 100 Intake and Output 05/21/18 05/22/18 19:00 07:00 Intake Total 1741.576 ml 716.987 ml Output Total 700 ml Balance 1041.576 ml 716.987 ml Intake Oral 1440 ml 480 ml IV Total 301.576 ml 236.987 ml Output Urine Total 700 ml # Voids 6 Laboratory Tests 05/21/18 19:33: Urine Random Sodium 40 05/22/18 13:20: White Blood Count 4.5L, Red Blood Count 3.71L, Hemoglobin 9.8L, Hematocrit 31.5L , Mean Corpuscular Volume 85, Mean Corpuscular Hemoglobin 26.3L, Mean Corpuscular Hemoglobin Concent 31.0L, Red Cell Distribution Width 20.6H, Platelet Count 157, Mean Platelet Volume 5.7L, Neutrophils (%) (Auto) 74.6, Lymphocytes (%) (Auto) 8.8L, Monocytes (%) (Auto) 12.3H, Eosinophils (%) (Auto) 3.1H, Basophils (%) (Auto) 1.3, Sodium Level 135L, Potassium Level 3.8, Chloride Level 97L, Carbon Dioxide Level 32, Anion Gap 6, Blood Urea Nitrogen 36H, Creatinine 1.4H, Estimat Glomerular Filtration Rate > 60, Glucose Level 113H, Calcium Level 8.5, Phosphorus Level 3.2, Magnesium Level 1.6L, Total Bilirubin 1.4H, Direct Bilirubin 0.9H, Aspartate Amino Transf (AST/SGOT) 34, Alanine Aminotransferase (ALT/SGPT) 29, Alkaline Phosphatase 146H, Total Protein 8.2, Albumin 3.1L, Globulin 5.1, Albumin/Globulin Ratio 0.6L Height (Feet): 6 Height (Inches): 0.00 Weight (Pounds): 151 General Appearance: WD/WN, no apparent distress EENT: PERRL/EOMI Neck: non-tender, normal alignment Cardiovascular: JVD - nl, irregularly irregular Respiratory/Chest: lungs clear Abdomen: normal bowel sounds, non tender, soft Extremities: normal range of motion Neurologic: label fuser tender II-XII grossly normal Ken Villaseñor MD May 22, 2018 15:08
[2018-05-22 16:00] VITALS: BP 131/65
[2018-05-22] MEDS: cefTRIAXone 1 GM in D5W 55 ML IVPB SCH (16:58)
[2018-05-22 18:30] VITALS: BP 128/64
[2018-05-22] MEDS ORDERED: NS 275ml ONE (19:02)
--- NOTE | 2018-05-24 11:24 | Discharge Summary ---
Discharge Summary Discharge Summary _ DATE OF ADMISSION: 05/18/2018 DATE OF DISCHARGE: 05/22/2018 REASON FOR ADMISSION: 63 years old male with past medical history of cardiomyopathy with ejection fraction less than 10%, AICD, persistent atrial fibrillation, liver cirrhosis with recurrent ascites, hepatitis C ,presented with abdominal pain and distended abdomen. No fever, no chills. No nausea, no vomiting. Vital signs were stable. Urine toxicology screen was positive for marijuana. Urinalysis +3 protein and evidence of probable UTI. EKG showed atrial fibrillation with controlled ventricular rate. Chest x-ray revealed cardiomegaly. No acute process. BUN 62, creatinine 1.7. Glucose 31. Total bili 3.1, direct bili 2.0 No leukocytosis, hemoglobin 11.7 hematocrit 38.0 Patient admitted with diagnoses of ascites, cirrhosis, hepatitis C, renal failure, hypoglycemia, cardiomyopathy with ejection farction less than 10%. CONSULTANTS: oil well perforator operator Dr. Myers pulmonary Dr. Chavarria ID specialist Dr. Marcos GI specialist Dr. Ryan rd project manager dr.De Dunn, Dr. Ken Villaseñor group home supervisor [facility]: Patient admitted to direct observational unit and started on diuresis with Lasix and Aldactone and Dobutamine drip. Rod And Tube Straightener, rd project manager and dump truck driver clsoely followed. Hemodynamic status, volumes, and cardiorenal parameters were closely monitored. Patient was continued on beta-sina, taken off MARINA inhibitor, and digoxin was added later. Patient had persistent atrial fibrillation, status post ablation. Anticoagulation with Xarelto resumed. Echocardiogram , done on previous admission, revealed ejection fraction less than 10%, right ventricular systolic pressure of 79, consistent with severe pulmonary hypertension, moderate to severe mitral regurgitation. Supplemental oxygen provided as needed to keep oximetry above 92%. Pulmonary toilet provided as needed. Venous duplex bilateral lower extremity revealed no evidence of acute DVT. Noted severe worsening of renal failure with creatinine from 1.7 up to 2.5 and BUN from 62 up to 82. Acute kidney injury was secondary to cardiorenal syndrome from low ejection fraction Volumes and renal parameters were closely monitored. Electrolytes corrected as needed. Acute kidney injury resolved; prior to discharge BUN 36 and creatinine 1.4. Renal ultrasound was negative for hydronephrosis. Patient undergone ultrasound-guided paracentesis on 05/19 which yielded 1.8 L of fluid. Culture of ascites fluid was negative. GI specialist closely followed. Patient with history of hepatitis C , status post treatment. LFT stable. Bilirubin trended down: initial total bilirubin from 3.1 down to 1.4, and direct bilirubin from 2.0 down to 0.9. Hemoglobin and hematocrit were closely monitored with goal to keep hemoglobin above 7. Prior to discharge hemoglobin 9.8 hematocrit 31.5. Patient status post colonoscopy with one polyp removal in June 2016. GI recommended low-sodium diet , PPI and antiemetic as needed. Pain management was addressed as needed. Bowel regimen instituted. GI recommended repeat colonoscopy in 2021 (5 years after the last one). Urine culture revealed Klebsiella pneumonia with colony count over 100,000 and Morganella and Proteus mirabilis with colony count 20-30,000(colonizers). Infectious disease specialist closely followed. Peritoneal fluid culture was not consistent with splinting and spontaneous bacterial peritonitis. Patient completed course of ceftriaxone for UTI. Resistance Brazer followed for initial episode of hypoglycemia. Patient had no evidence of diabetes mellitus. No recurrence of hypoglycemia. Noted elevated TSH. Levothyroxine dose was increased. Repeat TSH in 1 month. Patient was ruled out for adrenal insufficiency. Patient clinically stabilized and was ready for discharge home with home health services. FINAL DIAGNOSES: Exacerbation of congestive heart failure Cardiomyopathy with ejection fraction less than 10% Right-sided heart failure Severe pulmonary hypertension Persistent atrial fibrillation , status post ablation Status post [place] Bi-V ICD Klebsiella pneumonia UTI Emphysema Acute renal failure on chronic kidney disease stage IV - due to cardiorenal syndrome secondary to low ejection fraction Hepatitis C Liver cirrhosis Ascites, status post paracentesis Anemia Hypothyroidism with elevated TSH Hypoglycemia DISCHARGE MEDICATIONS: See Medication Reconciliation list. DISCHARGE INSTRUCTIONS: Patient was discharged home with home health services. Follow up with primary care provider in one week. I have been assigned to dictate discharge summary for this account. I was not involved in the patient's management. Aarti Bryant NP May 24, 2018 11:24
== END 2018-05-22 19:03 | disposition home health service (06) | DRG 292 ==
LOC: EMR 15:54 → EDBEDREQ 16:56 → 4E 17:07 → EDBEDREQ 18:24 → 4E 20:45 → 2W 05-20 10:09
PROC: 0W9G3ZZ Drainage of Peritoneal Cavity, Percutaneous Approach (ICD-10-PCS; principal; 2018-05-19)
PROC: 02HV33Z Insertion of Infusion Device into Superior Vena Cava, Percutaneous Approach (ICD-10-PCS; 2018-05-20)
DX: I13.0 Hypertensive heart and chronic kidney disease with heart failure and stage 1 through stage 4 chronic kidney disease, or unspecified chronic kidney disease (principal); N39.0 Urinary tract infection, site not specified; I48.1 Persistent atrial fibrillation; R18.8 Other ascites; N17.9 Acute kidney failure, unspecified; N18.4 Chronic kidney disease, stage 4 (severe); E87.1 Hypo-osmolality and hyponatremia; I50.810 Right heart failure, unspecified; E16.2 Hypoglycemia, unspecified; B19.20 Unspecified viral hepatitis C without hepatic coma; K74.60 Unspecified cirrhosis of liver; B96.1 Klebsiella pneumoniae [K. pneumoniae] as the cause of diseases classified elsewhere; I42.9 Cardiomyopathy, unspecified; Z95.810 Presence of automatic (implantable) cardiac defibrillator; I27.20 Pulmonary hypertension, unspecified; J43.9 Emphysema, unspecified; E03.9 Hypothyroidism, unspecified; Z88.6 Allergy status to analgesic agent; D64.9 Anemia, unspecified; I25.10 Atherosclerotic heart disease of native coronary artery without angina pectoris; K21.9 Gastro-esophageal reflux disease without esophagitis; G89.29 Other chronic pain; I25.2 Old myocardial infarction; E87.5 Hyperkalemia; Z79.01 Long term (current) use of anticoagulants; I34.0 Nonrheumatic mitral (valve) insufficiency
CPT/HCPCS: 36415; 36569; 71045; 76770; 76937; 76942; 80048; 80053; 80061; 80162; 80307; 81003; 82024; 82248; 82533; 82550; 82553; 82962; 83735; 84100; 84300; 84443; 84484; 85025; 85379; 85610; 85730; 87070; 87081; 87086; 87181; 87205; 88104; 89051; 93005; 93970; 96361; 96374; 97803; 99284; 99285

== ENCOUNTER 2018-05-30 12:22 | Inpatient (IN) | payer MEDICARE, MEDICAID ==
[~2018-05-30] VITALS: Ht 175.3 cm; Wt 74.4 kg
[~2018-05-30 12:22] MED LIST changes: +HYDRALAZINE HCL10 MG ORAL; +ISOSORBIDE DINIT5 MG ORAL; +PRILOSEC OTC20 MG ORAL; +VENTOLIN HFA18 GM INH; +WARFARIN SODIUM1 MG ORAL
[2018-05-30 12:47] VITALS: BP 110/78
--- NOTE | 2018-05-30 13:15 | Emergency Room Report ---
History of Present Illness General Chief Complaint: Chest Pain Source: Patient, Medical Record Present Illness HPI Patient presents with complaints of chest pain Reports that it happened at home while he was walking to the TV This happened earlier today Denies any headache he also had some epigastric discomfort Denies any vomiting or diarrhea Pain has improved by time he arrives the hospital Denies any flank pain denies any focal weakness Denies any diaphoresis Patient has had fairly significant hospital stay recently Has documented cardiomyopathy with significantly poor EF Allergies: Coded Allergies: HYDROMORPHONE (Verified Allergy, Unknown, 12/28/10) Patient History Past Medical History: see triage record Pertinent Family History: none Reviewed Nursing Documentation: PMH: Agreed; PSxH: Agreed Nursing Documentation-PMH Hx Cardiac Problems: Yes Hx Hypertension: Yes Hx Pacemaker: No Hx COPD: Yes Hx Cancer: No Hx Gastrointestinal Problems: Yes Hx Neurological Problems: No Hx Cerebrovascular Accident: No Hx Transient Ischemic Attacks: No Review of Systems All Other Systems: negative except mentioned in HPI Physical Exam Vital Signs Date Time Temp Pulse Resp B/P (MAP) Pulse Ox O2 Delivery O2 Flow Rate FiO2 05/30/18 12:33 97.7 66 18 99/68 92 Room Air Sp02 EP Interpretation: reviewed, normal General Appearance: well appearing, no apparent distress Head: normocephalic, atraumatic Eyes: bilateral eye PERRL, bilateral eye EOMI ENT: hearing grossly normal, normal pharynx, TMs + canals normal, uvula midline Neck: full range of motion, supple, no meningismus, no bony tend Respiratory: lungs clear, normal breath sounds, no rhonchi, no respiratory distress, no retraction, no accessory muscle use Cardiovascular #1: normal peripheral pulses, regular rate, rhythm, no edema, no gallop, no JVD, no murmur Gastrointestinal: normal bowel sounds, non tender, soft, no mass, no organomegaly, non-distended, no guarding, no hernia, no pulsatile mass, no rebound Genitourinary: no CVA tenderness Musculoskeletal: normal inspection Neurologic: oriented x3, responsive, insurance premium auditor III-XII nml as tested, motor strength/ tone normal, sensory intact Psychiatric: mood/affect normal Skin: normal color, no rash, warm/dry, palpation normal Lymphatic: normal inspection, no adenopathy Medical Decision Making Diagnostic Impression: Primary Impression: ACS (acute coronary syndrome) Additional Impression: Hyperkalemia ER Course Patient is a fairly complex patient with multiple differential to consideration including but not limited to cardiac cardiopulmonary and vascular emergencies Patient's blood work reveals elevated potassium count with increased kidney function levels This is adressed in the emergency room given the patient's chest complaint and presentation patient requires further inpatient observation and repeat evaluation Labs Test 05/30/18 13:10 05/31/18 04:45 05/31/18 16:00 06/01/18 06:00 White Blood Count 4.5 K/UL (4.8-10.8) 3.8 K/UL (4.8-10.8) Red Blood Count 4.21 M/UL (4.70-6.10) 4.11 M/UL (4.70-6.10) Hemoglobin 10.7 G/DL (14.2-18.0) 10.5 G/DL (14.2-18.0) Hematocrit 35.7 % (42.0-52.0) 34.3 % (42.0-52.0) Mean Corpuscular Volume 85 FL (80-99) 83 FL (80-99) Mean Corpuscular Hemoglobin 25.4 PG (27.0-31.0) 25.5 PG (27.0-31.0) Mean Corpuscular Hemoglobin Concent 30.0 G/DL (32.0-36.0) 30.6 G/DL (32.0-36.0) Red Cell Distribution Width 20.3 % (11.6-14.8) 19.8 % (11.6-14.8) Platelet Count 201 K/UL (150-450) 196 K/UL (150-450) Mean Platelet Volume 6.4 FL (6.5-10.1) 6.3 FL (6.5-10.1) Neutrophils (%) (Auto) 62.8 % (45.0-75.0) 54.0 % (45.0-75.0) Lymphocytes (%) (Auto) 20.7 % (20.0-45.0) 26.2 % (20.0-45.0) Monocytes (%) (Auto) 14.4 % (1.0-10.0) 16.0 % (1.0-10.0) Eosinophils (%) (Auto) 1.1 % (0.0-3.0) 2.6 % (0.0-3.0) Basophils (%) (Auto) 1.1 % (0.0-2.0) 1.2 % (0.0-2.0) Sodium Level 135 MMOL/L (136-145) 136 MMOL/L (136-145) 136 MMOL/L (136-145) Potassium Level 6.0 MMOL/L (3.5-5.1) 5.4 MMOL/L (3.5-5.1) 4.0 MMOL/L (3.5-5.1) Chloride Level 100 MMOL/L (98-107) 101 MMOL/L (98-107) 99 MMOL/L (98-107) Carbon Dioxide Level 25 MMOL/L (21-32) 29 MMOL/L (21-32) 30 MMOL/L (21-32) Anion Gap 10 mmol/L (5-15) 6 mmol/L (5-15) 7 mmol/L (5-15) Blood Urea Nitrogen 56 mg/dL (7-18) 58 mg/dL (7-18) 52 mg/dL (7-18) Creatinine 2.1 MG/DL (0.55-1.30) 2.1 MG/DL (0.55-1.30) 2.0 MG/DL (0.55-1.30) Estimat Glomerular Filtration Rate 38.7 mL/min (>60) 38.7 mL/min (>60) 40.8 mL/min (>60) Glucose Level 97 MG/DL (74-106) 95 MG/DL (74-106) 92 MG/DL (74-106) Calcium Level 9.1 MG/DL (8.5-10.1) 9.0 MG/DL (8.5-10.1) 8.6 MG/DL (8.5-10.1) Total Bilirubin 1.9 MG/DL (0.2-1.0) 1.8 MG/DL (0.2-1.0) Direct Bilirubin 1.3 MG/DL (0.0-0.3) 1.2 MG/DL (0.0-0.3) Aspartate Amino Transf (AST/SGOT) 23 U/L (15-37) 18 U/L (15-37) Alanine Aminotransferase (ALT/SGPT) 19 U/L (12-78) 18 U/L (12-78) Alkaline Phosphatase 139 U/L (46-116) 122 U/L (46-116) Total Creatine Kinase 35 U/L (26-308) Creatine Kinase MB 1.1 NG/ML (0.0-3.6) Creatine Kinase MB Relative Index 3.1 Troponin I 0.028 ng/mL (0.000-0.056) 0.030 ng/mL (0.000-0.056) 0.046 ng/mL (0.000-0.056) Total Protein 8.4 G/DL (6.4-8.2) 7.7 G/DL (6.4-8.2) Albumin 3.3 G/DL (3.4-5.0) 3.2 G/DL (3.4-5.0) 2.9 G/DL (3.4-5.0) Globulin 5.1 g/dL 4.8 g/dL Albumin/Globulin Ratio 0.6 (1.0-2.7) 0.6 (1.0-2.7) Uric Acid 12.3 MG/DL (2.6-7.2) 11.7 MG/DL (2.6-7.2) Phosphorus Level 3.9 MG/DL (2.5-4.9) 3.8 MG/DL (2.5-4.9) Magnesium Level 2.4 MG/DL (1.8-2.4) 1.9 MG/DL (1.8-2.4) Iron Level 19 ug/dL (50-175) Total Iron Binding Capacity 379 ug/dL (250-450) Percent Iron Saturation 5 % (15-50) Unsaturated Iron Binding 360 ug/dL (112-346) Ferritin 51 NG/ML (8-388) C-Reactive Protein, Quantitative 2.0 mg/dL (0.00-0.90) Vitamin B12 Level 1561 PG/ML (193-986) Folate 29.2 NG/ML (8.6-58.9) Urine Color Yellow Urine Appearance Slightly cloudy Urine pH 5 (4.5-8.0) Urine Specific Catarina 1.010 (1.005-1.035) Urine Protein 2+ (NEGATIVE) Urine Glucose (UA) Negative (NEGATIVE) Urine Ketones Negative (NEGATIVE) Urine Blood Negative (NEGATIVE) Urine Nitrite Negative (NEGATIVE) Urine Bilirubin Negative (NEGATIVE) Urine Urobilinogen 4 MG/DL (0.0-1.0) Urine Leukocyte Esterase Negative (NEGATIVE) Urine RBC 0 /HPF (0 - 0) Urine WBC 0-2 /HPF (0 - 0) Urine Squamous Epithelial Cells Occasional /LPF Urine Amorphous Sediment Moderate /LPF (NONE) Urine Bacteria Few /HPF (NONE) Urine Opiates Screen Negative (NEGATIVE) Urine Barbiturates Screen Negative (NEGATIVE) Phencyclidine (PCP) Screen Negative (NEGATIVE) Urine Amphetamines Screen Negative (NEGATIVE) Urine Benzodiazepines Screen Negative (NEGATIVE) Urine Cocaine Screen Negative (NEGATIVE) Urine Marijuana (THC) Screen Positive (NEGATIVE) Ammonia 31 umol/L (11-32) Pro-B-Type Natriuretic Peptide 6179 pg/mL (0-125) Thyroid Stimulating Hormone (TSH) 25.947 uiU/mL (0.358-3.740) Digoxin Level 0.5 NG/ML (0.5-2.0) Test 06/01/18 08:15 06/01/18 18:00 White Blood Count 4.3 K/UL (4.8-10.8) Red Blood Count 3.90 M/UL (4.70-6.10) Hemoglobin 10.0 G/DL (14.2-18.0) Hematocrit 32.9 % (42.0-52.0) Mean Corpuscular Volume 84 FL (80-99) Mean Corpuscular Hemoglobin 25.5 PG (27.0-31.0) Mean Corpuscular Hemoglobin Concent 30.3 G/DL (32.0-36.0) Red Cell Distribution Width 19.8 % (11.6-14.8) Platelet Count 166 K/UL (150-450) Mean Platelet Volume 6.2 FL (6.5-10.1) Neutrophils (%) (Auto) 61.5 % (45.0-75.0) Lymphocytes (%) (Auto) 21.7 % (20.0-45.0) Monocytes (%) (Auto) 12.6 % (1.0-10.0) Eosinophils (%) (Auto) 2.6 % (0.0-3.0) Basophils (%) (Auto) 1.5 % (0.0-2.0) Prothrombin Time 20.7 SEC (9.30-11.50) Prothromb Time International Ratio 2.0 (0.9-1.1) Activated Partial Thromboplast Time 37 SEC (23-33) Troponin I 0.046 ng/mL (0.000-0.056) EKG Diagnostic Results Rate: normal Rhythm: other - paced ST Segments: no acute changes Rhythm Strip Diag. Results EP Interpretation: yes Rate: 77 Rhythm: no PVC's, no ectopy Chest X-Ray Diagnostic Results Chest X-Ray Diagnostic Results : Chest X-Ray Ordered: Yes # of Views/Limited/Complete: 1 View Indication: Chest Pain EP Interpretation: Yes Interpretation: no consolidation, no effusion, no pneumothorax Impression: No acute disease Electronically Signed by: Winston Luther DO Last Vital Signs Date Time Temp Pulse Resp B/P (MAP) Pulse Ox O2 Delivery O2 Flow Rate FiO2 05/30/18 12:52 72 12 Room Air 05/30/18 12:47 97.7 110/78 100 Status: improved Disposition: PLACE IN OBSERVATION Condition: Improved Winston Luther DO May 30, 2018 13:15
[2018-05-30 13:46] LABS: BASOPHILS % (AUTO) 1.1 % (0.0-2.0); EOSINOPHILS % (AUTO) 1.1 % (0.0-3.0); HEMATOCRIT 35.7 % (42.0-52.0); HEMOGLOBIN 10.7 G/DL (14.2-18.0); LYMPHOCYTES % (AUTO) 20.7 % (20.0-45.0); MEAN CORPUSCULAR VOLUME 85 FL (80-99); MONOCYTES % (AUTO) 14.4 % (1.0-10.0); NEUTROPHILS % (AUTO) 62.8 % (45.0-75.0); PLATELET COUNT 201 K/UL (150-450); RED BLOOD COUNT 4.21 M/UL (4.70-6.10); RED CELL DISTRIBUTION WIDTH 20.3 % (11.6-14.8); WHITE BLOOD COUNT 4.5 K/UL (4.8-10.8)
[2018-05-30 13:54] LABS: ALANINE AMINOTRANSFERASE 19 U/L (12-78); ALBUMIN 3.3 G/DL (3.4-5.0); ALBUMIN/GLOBULIN RATIO 0.6 (1.0-2.7); ALKALINE PHOSPHATASE 139 U/L (46-116); ANION GAP 10 mmol/L (5-15); ASPARTATE AMINO TRANSFERASE 23 U/L (15-37); BILIRUBIN,TOTAL 1.9 MG/DL (0.2-1.0); BLOOD UREA NITROGEN 56 mg/dL (7-18); CALCIUM 9.1 MG/DL (8.5-10.1); CARBON DIOXIDE 25 MMOL/L (21-32); CHLORIDE 100 MMOL/L (98-107); CKMB 1.1 NG/ML (0.0-3.6); CREATINE KINASE 35 U/L (26-308); CREATININE 2.1 MG/DL (0.55-1.30); SODIUM 135 MMOL/L (136-145)
[2018-05-30 13:58] LABS: BILIRUBIN,DIRECT 1.3 MG/DL (0.0-0.3)
[2018-05-30] MEDS ORDERED: Sodium Polystyrene Sulfonate 15gm Powder ORAL ONE (14:15)
[2018-05-30] MEDS ORDERED: Miralax 17gm pkt ORAL PRN (15:15)
[2018-05-30] MEDS ORDERED: Albuterol/Ipratropium 3ml neb HHN PRN (15:15)
[2018-05-30] MEDS ORDERED: XARELTO10 MG ORAL (15:47)
[2018-05-30 16:30] VITALS: BP 108/75
[2018-05-30 20:00] VITALS: BP_SYST 107; BP_SYST 138; BP_DIAS 68; BP_DIAS 93
[2018-05-30] MEDS: Heparin 5000 units/ml inj SUBQ SCH (20:36)
[2018-05-31] VITALS: BP 110/75
[2018-05-31 04:00] VITALS: BP 103/64
[2018-05-31 05:20] LABS: BASOPHILS % (AUTO) 1.2 % (0.0-2.0); EOSINOPHILS % (AUTO) 2.6 % (0.0-3.0); HEMATOCRIT 34.3 % (42.0-52.0); HEMOGLOBIN 10.5 G/DL (14.2-18.0); LYMPHOCYTES % (AUTO) 26.2 % (20.0-45.0); MEAN CORPUSCULAR VOLUME 83 FL (80-99); PLATELET COUNT 196 K/UL (150-450); RED BLOOD COUNT 4.11 M/UL (4.70-6.10); RED CELL DISTRIBUTION WIDTH 19.8 % (11.6-14.8); WHITE BLOOD COUNT 3.8 K/UL (4.8-10.8)
[2018-05-31 05:26] LABS: % IRON SATURATION 5 % (15-50); IRON 19 ug/dL (50-175); TOTAL IRON BINDING CAPACITY 379 ug/dL (250-450)
[2018-05-31 05:32] LABS: ALBUMIN 3.2 G/DL (3.4-5.0); ANION GAP 6 mmol/L (5-15); BLOOD UREA NITROGEN 58 mg/dL (7-18); CARBON DIOXIDE 29 MMOL/L (21-32); CHLORIDE 101 MMOL/L (98-107); CREATININE 2.1 MG/DL (0.55-1.30); PHOSPHORUS 3.9 MG/DL (2.5-4.9); POTASSIUM 5.4 MMOL/L (3.5-5.1); SODIUM 136 MMOL/L (136-145)
[2018-05-31 08:00] VITALS: BP 99/61
--- NOTE | 2018-05-31 09:21 | Consultation ---
History of Present Illness General Date patient seen: May 31, 2018 Time patient seen: 08:30 Chief Complaint: Chest Pain Referring physician: dr Cherry Reason for Consultation: SOB Present Illness HPI 63 y/old male with PMH of congestive heart failure with cardiomyopathy ejection fraction less than 10% , persistent atrial fibrillation, status post ablation, right-sided heart failure, AICD, liver cirrhosis, hypothyroidism , recently was hospitalized for cardiogenic shock , presented to emergency department with complaint of chest pain. Episode of chest pain happened at home while he was walking to his TV. He also reported epigastric discomfort. Upon evaluation in the emergency department vital signs were stable. Pulse oximetry was 92% on room air. Laboratory workup revealed no leukocytosis, anemia with hemoglobin 10.7 and hematocrit 35.7. Chemistry showed evidence of renal failure with BUN 56 , creatinine 2.1 , potassium 6.0. Total bili 1.9 , direct bili 1.3. Troponin negative. Chest x-ray revealed lung right lung interstitial and airspace opacities. Patient was admitted for further management Allergies: Coded Allergies: HYDROMORPHONE (Verified Allergy, Unknown, 12/28/10) Medication History Scheduled Digoxin* (Digoxin*), 125 MCG ORAL DAILY, (Reported) Furosemide* (Lasix*), 40 MG ORAL DAILY, (Reported) Gabapentin* (Gabapentin*), 100 MG ORAL THREE TIMES A DAY, (Reported) Hydralazine Hcl* (Hydralazine Hcl*), 10 MG ORAL DAILY, (Reported) Isosorbide Dinitrate (Isosorbide Dinitrate*), 5 MG ORAL BID, (Reported) Levothyroxine Sodium* (Levothyroxine Sodium*), 125 MCG ORAL BEFORE BREAKFAST, ( Reported) Lisinopril (Lisinopril*), 5 MG ORAL DAILY, (Reported) Multivitamins* (Multivitamins*), 1 TAB ORAL DAILY, (Reported) Omeprazole Magnesium (Prilosec Otc), 20 MG ORAL DAILY, (Reported) Rivaroxaban (Xarelto*), Unknown Dose ORAL DAILY, (Reported) Spironolactone* (Spironolactone*), 25 MG ORAL DAILY, (Reported) Scheduled PRN Albuterol Sulfate (Ventolin Hfa), 1 PUFF INH EVERY 6 HOURS PRN for Shortness of Breath, (Reported) Oxycodone Hcl* (Oxycodone Hcl*), 10 MG ORAL DAILY PRN for For Pain, (Reported) Patient History Healthcare decision maker N Resuscitation status Advanced Directive on File Past Medical/Surgical History Past Medical/Surgical History: (1) Right-sided heart failure (2) Acute respiratory failure (3) HNP (herniated nucleus pulposus), lumbar (4) Ascites (5) Cirrhosis (6) Cardiogenic shock (7) Cardiomyopathy due to hypertension, with heart failure (8) Hypothyroidism (9) ICD (implantable cardioverter-defibrillator) in place (10) Emphysema lung (11) Hepatitis C (12) Anemia Review of Systems ENT: Reports: no symptoms Cardiovascular: Reports: see HPI Gastrointestinal: Reports: other - liver cirrhosis, occas abd pain, nausea Genitourinary: Reports: no symptoms Skin: Reports: no symptoms Psychiatric: Reports: depressed feelings Neurological: Reports: no symptoms Endocrine: Reports: no symptoms Hematologic/Lymphatic: Reports: anemia Physical Exam General Appearance: other - A/A/O x 3 AA male i mild distress Lines, tubes and drains: peripheral HEENT: normocephalic, atraumatic, anicteric Neck: non-tender, normal alignment, supple Respiratory/Chest: lungs clear - with moderate air exchange , no respiratory distress, no accessory muscle use Cardiovascular/Chest: irregularly irregular - A ib on tele with PVC Abdomen: normal bowel sounds, non tender, soft Extremities: no calf tenderness, other - trace edema BLE Skin Exam: warm/dry Neurologic: alert Musculoskeletal: normal muscle bulk Last 24 Hour Vital Signs Date Time Temp Pulse Resp B/P (MAP) Pulse Ox O2 Delivery O2 Flow Rate FiO2 05/31/18 04:00 97.3 70 18 103/64 (77) 100 05/31/18 04:00 72 05/31/18 00:00 97.5 74 18 110/75 (87) 100 05/31/18 00:00 74 05/30/18 21:00 Room Air 05/30/18 20:00 97.2 70 18 107/68 (81) 100 05/30/18 20:00 71 05/30/18 16:49 Room Air 05/30/18 16:30 97.1 72 18 108/75 (86) 99 05/30/18 16:30 75 05/30/18 16:02 97.7 72 12 110/78 100 Room Air 05/30/18 12:52 72 12 Room Air 05/30/18 12:47 97.7 72 18 110/78 100 Room Air 05/30/18 12:33 97.7 66 18 99/68 92 Room Air Intake and Output 05/30/18 05/31/18 19:00 07:00 Intake Total 120 ml 480 ml Output Total 150 ml 425 ml Balance -30 ml 55 ml Intake Oral 120 ml 480 ml Output Urine Total 150 ml 425 ml Laboratory Tests Test 05/30/18 13:10 05/31/18 04:45 White Blood Count 4.5 K/UL (4.8-10.8) L 3.8 K/UL (4.8-10.8) L Red Blood Count 4.21 M/UL (4.70-6.10) L 4.11 M/UL (4.70-6.10) L Hemoglobin 10.7 G/DL (14.2-18.0) L 10.5 G/DL (14.2-18.0) L Hematocrit 35.7 % (42.0-52.0) L 34.3 % (42.0-52.0) L Mean Corpuscular Volume 85 FL (80-99) 83 FL (80-99) Mean Corpuscular Hemoglobin 25.4 PG (27.0-31.0) L 25.5 PG (27.0-31.0) L Mean Corpuscular Hemoglobin Concent 30.0 G/DL (32.0-36.0) L 30.6 G/DL (32.0-36.0) L Red Cell Distribution Width 20.3 % (11.6-14.8) H 19.8 % (11.6-14.8) H Platelet Count 201 K/UL (150-450) 196 K/UL (150-450) Mean Platelet Volume 6.4 FL (6.5-10.1) L 6.3 FL (6.5-10.1) L Neutrophils (%) (Auto) 62.8 % (45.0-75.0) 54.0 % (45.0-75.0) Lymphocytes (%) (Auto) 20.7 % (20.0-45.0) 26.2 % (20.0-45.0) Monocytes (%) (Auto) 14.4 % (1.0-10.0) H 16.0 % (1.0-10.0) H Eosinophils (%) (Auto) 1.1 % (0.0-3.0) 2.6 % (0.0-3.0) Basophils (%) (Auto) 1.1 % (0.0-2.0) 1.2 % (0.0-2.0) Sodium Level 135 MMOL/L (136-145) L 136 MMOL/L (136-145) Potassium Level 6.0 MMOL/L (3.5-5.1) *H 5.4 MMOL/L (3.5-5.1) H Chloride Level 100 MMOL/L (98-107) 101 MMOL/L (98-107) Carbon Dioxide Level 25 MMOL/L (21-32) 29 MMOL/L (21-32) Anion Gap 10 mmol/L (5-15) 6 mmol/L (5-15) Blood Urea Nitrogen 56 mg/dL (7-18) H 58 mg/dL (7-18) H Creatinine 2.1 MG/DL (0.55-1.30) H 2.1 MG/DL (0.55-1.30) H Estimat Glomerular Filtration Rate 38.7 mL/min (>60) 38.7 mL/min (>60) Glucose Level 97 MG/DL (74-106) 95 MG/DL (74-106) Calcium Level 9.1 MG/DL (8.5-10.1) 9.0 MG/DL (8.5-10.1) Total Bilirubin 1.9 MG/DL (0.2-1.0) H Direct Bilirubin 1.3 MG/DL (0.0-0.3) H Aspartate Amino Transf (AST/SGOT) 23 U/L (15-37) Alanine Aminotransferase (ALT/SGPT) 19 U/L (12-78) Alkaline Phosphatase 139 U/L (46-116) H Total Creatine Kinase 35 U/L (26-308) Creatine Kinase MB 1.1 NG/ML (0.0-3.6) Creatine Kinase MB Relative Index 3.1 Troponin I 0.028 ng/mL (0.000-0.056) 0.030 ng/mL (0.000-0.056) Total Protein 8.4 G/DL (6.4-8.2) H Albumin 3.3 G/DL (3.4-5.0) L 3.2 G/DL (3.4-5.0) L Globulin 5.1 g/dL Albumin/Globulin Ratio 0.6 (1.0-2.7) L Uric Acid 12.3 MG/DL (2.6-7.2) H Phosphorus Level 3.9 MG/DL (2.5-4.9) Magnesium Level 2.4 MG/DL (1.8-2.4) Iron Level 19 ug/dL (50-175) L Total Iron Binding Capacity 379 ug/dL (250-450) Percent Iron Saturation 5 % (15-50) L Unsaturated Iron Binding 360 ug/dL (112-346) H Ferritin 51 NG/ML (8-388) Vitamin B12 Level 1561 PG/ML (193-986) H Folate 29.2 NG/ML (8.6-58.9) Microbiology Date/Time Source Procedure Growth Status 05/30/18 14:07 Rectum VRE Culture Pending Resulted 05/30/18 14:07 Rectum - Preliminary Resulted Height (Feet): 5 Height (Inches): 9.00 Weight (Pounds): 162 Medications Current Medications Medications (Trade) Dose Ordered Sig/Allyn Route PRN Reason Start Time Stop Time Status Last Admin Dose Admin Acetaminophen (Tylenol) 650 mg Q4H PRN ORAL Mild Pain/Temp > 100.5 05/30/18 19:15 06/29/18 15:14 Albuterol/ Ipratropium (Albuterol/ Ipratropium) 3 ml Q4H PRN HHN Shortness of Breath 05/30/18 15:15 06/04/18 15:14 Chlorhexidine Gluconate (Kalani-Hex 2%) 1 applic DAILY@1999 TOPIC 05/31/18 20:00 06/30/18 19:59 Dextrose (Dextrose 50%) 25 ml Q30M PRN IV Hypoglycemia 05/30/18 15:15 06/29/18 15:14 Dextrose (Dextrose 50%) 50 ml Q30MIN PRN IV Hypoglycemia 05/30/18 15:15 06/29/18 15:14 Furosemide (Lasix) 40 mg EVERY 8 HOURS IV 05/30/18 22:00 06/29/18 21:59 05/31/18 05:31 Heparin Sodium (Porcine) (Heparin 5000 units/ml) 5,000 units EVERY 12 HOURS SUBQ 05/30/18 21:00 06/29/18 20:59 05/30/18 20:36 Ondansetron HCl (Zofran) 4 mg Q6H PRN IVP Nausea & Vomiting 05/30/18 15:15 06/29/18 15:14 Polyethylene Glycol (Miralax) 17 gm DAILYPRN PRN ORAL Constipation 05/30/18 15:15 06/29/18 15:14 Temazepam (Restoril) 15 mg HSPRN PRN ORAL Insomnia 05/30/18 15:15 06/06/18 15:14 Assessment/Plan Assessment/Plan ASSESSMENT CP likely secondary to severe cardiomyopathy ( EF <10%) and CHF Acute CHF Acute kidney injury on chronic renal insufficiency Severe pulm HTN Right sided heart failure Hyperkalemia Anemia AICD Liver cirrhosis PLAN OF CARE ÁNGELA IV diuresis with Lasix with close monitoring of volumes and cardiorenal parameters. Kayexalate monitor renal parameters and electrolytes, correct electrolytes prn O2 titrate prn, HHN prn DVT prophylaxis venous Duplex BLE fup with CXR in am anti-failure regimen with Digoxin, Hydralazine , Isordil, and Aldactone with holding parameters closely monitor BP cardio eval- per PMD AICD interrogated prior resume a/coagulation with Xarelto rate controlled pain management monitor H&H with goal to keep hemoglobin above 7 bowel regimen supportive care overall prognosis poor, given end stage cardiomyopathy case discussed and evaluated by supervising physician Aarti Bryant NP May 31, 2018 09:21
--- NOTE | 2018-05-31 09:46 | Diagnostic Imaging Report ---
EXAM: XR Chest, 1 View CLINICAL HISTORY: DYSPNEA TECHNIQUE: Frontal view of the chest. COMPARISON: Chest x-ray 05/18/18 8639 FINDINGS: Lungs: New right lung interstitial and airspace opacities. Pleural space: Unremarkable. No pneumothorax. Heart: Cardiomegaly. Mediastinum: Unremarkable. Bones/joints: Unremarkable. Tubes, lines and devices: Interval placement of right PICC line to mid SVC. Cardiac pacemaker. IMPRESSION: New right lung interstitial and airspace opacities.
[2018-05-31] MEDS: Heparin 5000 units/ml inj SUBQ SCH ×2 (09:53→20:32)
[2018-05-31] MEDS ORDERED: oxyCODONE HCL/Acetaminophen 5/325mg ORAL PRN (10:00)
[2018-05-31] MEDS ORDERED: Sodium Polystyrene Sulfonate 15gm Powder ORAL SCH ×2 (10:10→15:53)
[2018-05-31 12:00] VITALS: BP 98/63
[2018-05-31] MEDS ORDERED: oxyCODONE 5mg IR tab ORAL PRN (13:36)
--- NOTE | 2018-05-31 13:36 | General Progress Note ---
Assessment/Plan Assessment/Plan (1) Lumbar degenerative disc disease (2) Lumbar spondylosis (3) Lumbar radiculopathy (4) Liver Cirrhosis (5) Abdominal pain Pt will be discontinued off Percocet and start Oxycodone 5mg PO 1 tab Q4H PRN severe pain. Pt was d/w Dr. Carson and he concurred. Subjective Date patient seen: May 31, 2018 Time patient seen: 12:00 - pm Allergies: Coded Allergies: HYDROMORPHONE (Verified Allergy, Unknown, 12/28/10) Subjective Constitutional: Reports: weakness, Denies: chills, diaphoresis, fever, malaise , no symptoms, other HEENT: Denies: blurred vision, double vision, ear discharge, ear pain, eye pain , mouth pain, mouth swelling, no symptoms, nose congestion, nose pain, other, tearing, throat pain, throat swelling Cardiovascular: Denies: irregular heart rate, lightheadedness, no symptoms, other, palpitations, syncope Respiratory: Denies: SOB at rest, SOB with excertion, cough, no symptoms, orthopnea, other, shortness of breath, sputum, stridor, wheezing Gastrointestinal/Abdominal: Reports: abdominal pain, Denies: abdomen distended , black stools, blood in stool, constipated, diarrhea, difficulty swallowing, nausea, no symptoms, other, poor appetite, poor fluid intake, rectal bleeding, tarry stools, vomiting Genitourinary: Denies: burning, discharge, flank pain, frequency, hematuria, incontinence, no symptoms, other, pain, urgency Neurologic/Psychiatric: Reports: weakness, Denies: anxiety, depressed, emotional problems, headache, no symptoms, numbness, other, paresthesia, pre- existing deficit, seizure, tingling, tremors Endocrine: Denies: excessive sweating, flushing, increased hunger, increased thirst, increased urine, intolerance to cold, intolerance to heat, no symptoms, other, unexplained weight gain, unexplained weight loss Hematologic/Lymphatic: Denies: anemia, easy bleeding, easy bruising, no symptoms, other Subjective Patient is a known patient from prior admission continues to c/o back and abdominal pain. Started on Percocet 5/325mg tabs however due to liver cirrhosis we will change to Oxycodone. He understands. Objective Last 24 Hour Vital Signs Date Time Temp Pulse Resp B/P (MAP) Pulse Ox O2 Delivery O2 Flow Rate FiO2 05/31/18 12:00 97.5 78 20 98/63 (75) 99 05/31/18 12:00 71 05/31/18 09:00 Room Air 05/31/18 08:00 98.0 76 18 99/61 (74) 98 05/31/18 08:00 77 05/31/18 04:00 97.3 70 18 103/64 (77) 100 05/31/18 04:00 72 05/31/18 00:00 97.5 74 18 110/75 (87) 100 05/31/18 00:00 74 05/30/18 21:00 Room Air 05/30/18 20:00 97.2 70 18 107/68 (81) 100 05/30/18 20:00 71 05/30/18 16:49 Room Air 05/30/18 16:30 97.1 72 18 108/75 (86) 99 05/30/18 16:30 75 05/30/18 16:02 97.7 72 12 110/78 100 Room Air Intake and Output 05/30/18 05/31/18 18:59 06:59 Intake Total 120 ml 480 ml Output Total 150 ml 425 ml Balance -30 ml 55 ml Intake Oral 120 ml 480 ml Output Urine Total 150 ml 425 ml Laboratory Tests 05/31/18 04:45: White Blood Count 3.8L, Red Blood Count 4.11L, Hemoglobin 10.5L, Hematocrit 34.3L, Mean Corpuscular Volume 83, Mean Corpuscular Hemoglobin 25.5L, Mean Corpuscular Hemoglobin Concent 30.6L, Red Cell Distribution Width 19.8H, Platelet Count 196, Mean Platelet Volume 6.3L, Neutrophils (%) (Auto) 54.0, Lymphocytes (%) (Auto) 26.2, Monocytes (%) (Auto) 16.0H, Eosinophils (%) (Auto) 2.6, Basophils (%) (Auto) 1.2, Sodium Level 136, Potassium Level 5.4H, Chloride Level 101, Carbon Dioxide Level 29, Anion Gap 6, Blood Urea Nitrogen 58H, Creatinine 2.1H, Estimat Glomerular Filtration Rate 38.7, Glucose Level 95, Uric Acid 12.3H, Calcium Level 9.0, Phosphorus Level 3.9, Magnesium Level 2.4, Iron Level 19L, Total Iron Binding Capacity 379, Percent Iron Saturation 5L, Unsaturated Iron Binding 360H, Ferritin 51, Troponin I 0.030, Albumin 3.2L, Vitamin B12 Level 1561H, Folate 29.2 Height (Feet): 5 Height (Inches): 9.00 Weight (Pounds): 162 Objective General Appearance: no apparent distress, alert EENT: normal ENT inspection, TMs normal Neck: normal alignment, supple Cardiovascular: normal rate, regular rhythm Respiratory/Chest: lungs clear, normal breath sounds Abdomen: tender, distended Extremities: non-tender Edema: edema noted in b/l LE Neurologic: alert, oriented x 3 Skin: warm/dry Luc Sanchez May 31, 2018 13:36
--- NOTE | 2018-05-31 14:00 | General Progress Note ---
Assessment/Plan Assessment/Plan GI CONSULT Patient declined to be evaluated by GI today. Wants to be left alone to rest Requested to postpone GI eval to tomorrow. Talita Ren MD Subjective Allergies: Coded Allergies: HYDROMORPHONE (Verified Allergy, Unknown, 12/28/10) Objective Last 24 Hour Vital Signs Date Time Temp Pulse Resp B/P (MAP) Pulse Ox O2 Delivery O2 Flow Rate FiO2 05/31/18 12:00 97.5 78 20 98/63 (75) 99 05/31/18 12:00 71 05/31/18 09:00 Room Air 05/31/18 08:00 98.0 76 18 99/61 (74) 98 05/31/18 08:00 77 05/31/18 04:00 97.3 70 18 103/64 (77) 100 05/31/18 04:00 72 05/31/18 00:00 97.5 74 18 110/75 (87) 100 05/31/18 00:00 74 05/30/18 21:00 Room Air 05/30/18 20:00 97.2 70 18 107/68 (81) 100 05/30/18 20:00 71 05/30/18 16:49 Room Air 05/30/18 16:30 97.1 72 18 108/75 (86) 99 05/30/18 16:30 75 05/30/18 16:02 97.7 72 12 110/78 100 Room Air Intake and Output 05/30/18 05/31/18 18:59 06:59 Intake Total 120 ml 480 ml Output Total 150 ml 425 ml Balance -30 ml 55 ml Intake Oral 120 ml 480 ml Output Urine Total 150 ml 425 ml Laboratory Tests 05/31/18 04:45: White Blood Count 3.8L, Red Blood Count 4.11L, Hemoglobin 10.5L, Hematocrit 34.3L, Mean Corpuscular Volume 83, Mean Corpuscular Hemoglobin 25.5L, Mean Corpuscular Hemoglobin Concent 30.6L, Red Cell Distribution Width 19.8H, Platelet Count 196, Mean Platelet Volume 6.3L, Neutrophils (%) (Auto) 54.0, Lymphocytes (%) (Auto) 26.2, Monocytes (%) (Auto) 16.0H, Eosinophils (%) (Auto) 2.6, Basophils (%) (Auto) 1.2, Sodium Level 136, Potassium Level 5.4H, Chloride Level 101, Carbon Dioxide Level 29, Anion Gap 6, Blood Urea Nitrogen 58H, Creatinine 2.1H, Estimat Glomerular Filtration Rate 38.7, Glucose Level 95, Uric Acid 12.3H, Calcium Level 9.0, Phosphorus Level 3.9, Magnesium Level 2.4, Iron Level 19L, Total Iron Binding Capacity 379, Percent Iron Saturation 5L, Unsaturated Iron Binding 360H, Ferritin 51, Troponin I 0.030, Albumin 3.2L, Vitamin B12 Level 1561H, Folate 29.2 Height (Feet): 5 Height (Inches): 9.00 Weight (Pounds): 162 Aurelia Ren MD May 31, 2018 14:00
[2018-05-31] MEDS: Xarelto 10mg tab ORAL SCH (15:19)
--- NOTE | 2018-05-31 15:44 | Consultation ---
Consult Note Consult Note Chief Complaint: Chest Pain HPI Patient presents with complaints of chest pain Reports that it happened at home while he was walking to the TV This happened earlier today Denies any headache he also had some epigastric discomfort Denies any vomiting or diarrhea Pain has improved by time he arrives the hospital Denies any flank pain denies any focal weakness Denies any diaphoresis Patient has had fairly significant hospital stay recently Has documented cardiomyopathy with significantly poor EF Allergies: HYDROMORPHONE (Verified Allergy, Unknown, 12/28/10) Hx Cardiac Problems: Yes Hx Hypertension: Yes Hx COPD: Yes Hx Gastrointestinal Problems: Yes 1. Ascites. 2. Cirrhosis. 3. Hepatitis C. 4. CHF. 5. CKD stage 4. 6. Hypothyroidism. 7. Hypertension patient examined- uncoaporative Poor historian data reviewed Assessment/Plan 1. Acute kidney injury on chronic kidney disease, stage 4 secondary to cardiorenal syndrome from low ejection fraction. 2. Hyperkalemia, improving 3. Decompensated congestive heart failure. 4. Ascites. Cardiogenic in nature. Has underlying hepatitis. 5. Shortness of breath, Stop [place]- Dig level check optimize cardiac function ua urine tox screen Kayexelate- Reglan IV Allopurinol monitor renal parameters IV Iron Blaine Rojas MD May 31, 2018 15:44
[2018-05-31] MEDS ORDERED: Metoclopramide 10mg/2ml Inj IVP SCH (15:52)
[2018-05-31 16:00] VITALS: BP 96/64
[2018-05-31 16:32] LABS: APPEARANCE,URINE SLIGHTLY CLOUDY; BILIRUBIN, URINE NEGATIVE (NEGATIVE); GLUCOSE, URINE (UA) NEGATIVE (NEGATIVE); KETONES,URINE NEGATIVE (NEGATIVE); LEUKOCYTE ESTERASE ,URINE NEGATIVE (NEGATIVE); NITRITE,URINE NEGATIVE (NEGATIVE); PH,URINE 5 (4.5-8.0); PROTEIN,URINE 2+ (NEGATIVE); UROBILINOGEN,URINE 4 MG/DL (0.0-1.0)
[2018-05-31 16:38] LABS: COLOR,URINE YELLOW
[2018-05-31] MEDS: Docusate 100mg cap ORAL SCH (18:00)
--- NOTE | 2018-05-31 18:14 | History and Physical Report ---
DATE OF ADMISSION: 05/30/2018 TIME SEEN: 9 a.m. CONSULTANTS: 1. Andrzej Chavarria M.D. 2. Blaine Rojas M.D. 3. Rc Zhang M.D. 4. Beto Ryan M.D. CHIEF COMPLAINT: Abdominal swelling. BRIEF HISTORY: This is a 63-year-old male, who lives at home with history of cirrhosis, hepatitis C, and recurrent ascites. Apparently, abdomen started swelling up again, came to [facility], diagnosed with the above, admitted to telemetry for further care. Currently, slight general abdominal pain, no complaint. REVIEW OF SYSTEMS: No chest pain. Slight short of breath. No nausea, vomiting, or diarrhea. PAST MEDICAL HISTORY: Includes cirrhosis of liver, hep C, ascites, CHF, chronic pain, renal failure, hypertension. PAST SURGICAL HISTORY: Multiple paracenteses. MEDICATIONS: Include chlorhexidine, furosemide, Tylenol, temazepam, Zofran, and albuterol. ALLERGIES: Hydromorphone. SOCIAL HISTORY: No smoking. No alcohol. No intravenous drug abuse. FAMILY HISTORY: Noncontributory. PHYSICAL EXAMINATION: GENERAL: Slightly anxious in bed and oriented x3, no acute distress. VITAL SIGNS: Show temperature 97 degrees, pulse 72, respirations 18, blood pressure 103/64. CARDIOVASCULAR: No murmur. LUNGS: Distant clear. ABDOMEN: Bowel sounds positive. Distant, soft, slightly distended. No guarding. No rigidity. No rebound. EXTREMITIES: Show no cyanosis, clubbing, or edema. NEUROLOGIC: The patient moves all extremities, slightly weak. LABORATORY AND DIAGNOSTIC DATA: Show white count 3.8, hemoglobin and hematocrit 10/34, and platelets 196,000. Potassium 5.4. BUN and creatinine 50/2.1. Otherwise, BMP is normal. Troponin 0.03. Albumin 3.2. ASSESSMENT: 1. Ascites. 2. Cirrhosis of liver. 3. Hepatitis C. 4. Hyperkalemia. 5. Renal failure. 6. Congestive heart failure. 7. Anemia. 8. Chronic pain. 9. Hypertension. 10. Malnutrition. PLAN: 1. Pain control, possible paracentesis. 2. GI evaluation. 3. O2 and pulmonary treatment as needed. 4. Nephrology followup. 5. Blood pressure control. 6. Resume home medications. 7. CBC and BMP in the morning. Shahid Cheryr D.O. DR: David JOB#: [id number] CC:
[2018-05-31 20:00] VITALS: BP 112/81
[2018-05-31] MEDS ORDERED: Dyna-Hex 2% Top Sol 2oz TOPIC SCH (20:00)
--- NOTE | 2018-05-31 21:28 | General Progress Note ---
Assessment/Plan Assessment/Plan GI CONSULT (second visit) Agreed to evaluation Assessment - Hepatitis C, eradicated per pt - Possible ascites, but volume likely small - CM - Azotemia Recommendations - Check U/S - Check AFP - Diuretics - Na restriction Thank you Talita Ren MD Subjective Allergies: Coded Allergies: HYDROMORPHONE (Verified Allergy, Unknown, 12/28/10) Objective Last 24 Hour Vital Signs Date Time Temp Pulse Resp B/P (MAP) Pulse Ox O2 Delivery O2 Flow Rate FiO2 05/31/18 16:00 98.0 72 20 96/64 (75) 98 05/31/18 16:00 71 05/31/18 12:00 97.5 78 20 98/63 (75) 99 05/31/18 12:00 71 05/31/18 09:00 Room Air 05/31/18 08:00 98.0 76 18 99/61 (74) 98 05/31/18 08:00 77 05/31/18 04:00 97.3 70 18 103/64 (77) 100 05/31/18 04:00 72 05/31/18 00:00 97.5 74 18 110/75 (87) 100 05/31/18 00:00 74 Intake and Output 05/30/18 05/31/18 19:00 07:00 Intake Total 120 ml 480 ml Output Total 150 ml 425 ml Balance -30 ml 55 ml Intake Oral 120 ml 480 ml Output Urine Total 150 ml 425 ml Laboratory Tests 05/31/18 04:45: White Blood Count 3.8L, Red Blood Count 4.11L, Hemoglobin 10.5L, Hematocrit 34.3L, Mean Corpuscular Volume 83, Mean Corpuscular Hemoglobin 25.5L, Mean Corpuscular Hemoglobin Concent 30.6L, Red Cell Distribution Width 19.8H, Platelet Count 196, Mean Platelet Volume 6.3L, Neutrophils (%) (Auto) 54.0, Lymphocytes (%) (Auto) 26.2, Monocytes (%) (Auto) 16.0H, Eosinophils (%) (Auto) 2.6, Basophils (%) (Auto) 1.2, Sodium Level 136, Potassium Level 5.4H, Chloride Level 101, Carbon Dioxide Level 29, Anion Gap 6, Blood Urea Nitrogen 58H, Creatinine 2.1H, Estimat Glomerular Filtration Rate 38.7, Glucose Level 95, Uric Acid 12.3H, Calcium Level 9.0, Phosphorus Level 3.9, Magnesium Level 2.4, Iron Level 19L, Total Iron Binding Capacity 379, Percent Iron Saturation 5L, Unsaturated Iron Binding 360H, Ferritin 51, Troponin I 0.030, C-Reactive Protein , Quantitative 2.0H, Albumin 3.2L, Vitamin B12 Level 1561H, Folate 29.2 05/31/18 16:00: Urine Color Yellow, Urine Appearance Slightly cloudy, Urine pH 5, Urine Specific [place] 1.010, Urine Protein 2+H, Urine Glucose (UA) Negative, Urine Ketones Negative, Urine Blood Negative, Urine Nitrite Negative, Urine Bilirubin Negative, Urine Urobilinogen 4H, Urine Leukocyte Esterase Negative, Urine RBC 0 , Urine WBC 0-2, Urine Squamous Epithelial Cells Occasional, Urine Amorphous Sediment ModerateH, Urine Bacteria Few, Urine Opiates Screen Negative, Urine Barbiturates Screen Negative, Phencyclidine (PCP) Screen Negative, Urine Amphetamines Screen Negative, Urine Benzodiazepines Screen Negative, Urine Cocaine Screen Negative, Urine Marijuana (THC) Screen PositiveH Height (Feet): 5 Height (Inches): 9.00 Weight (Pounds): 162 Aurelia Ren MD May 31, 2018 21:28
[2018-05-31] MEDS ORDERED: Metoclopramide 10mg/2ml Inj IVP PRN (22:00)
[2018-06-01] VITALS: BP 105/76
--- NOTE | 2018-06-01 00:45 | Consultation ---
DATE OF CONSULTATION: 05/31/2018 GASTROENTEROLOGY CONSULTATION CONSULTING PHYSICIAN: Aurelia Ren M.D. REFERRING PHYSICIAN: Shahid Cherry M.D. CHIEF COMPLAINT: I was asked to see this patient by Dr. Shahid Cherry for evaluation of hepatitis C and cirrhosis. HISTORY OF PRESENT ILLNESS: The patient is a 63-year-old unfortunate man with a history of advanced cardiomyopathy with congestive heart failure and depressed ejection fraction, who comes into the hospital due to chest pain. He also complains of abdominal distention. He said he has had ascites due to cirrhosis before and has had treatments in the past. He denies any abdominal pain or vomiting. He has had a known history of hepatitis C, and according to the chart records, he has been treated, although data has not been found on the records. The patient has a known history of hepatitis C and has reportedly been treated for it and eradicated. The patient denies drinking any alcohol, but does take a number of medications for her cardiac disease. He does not have any edema in his legs or encephalopathy. He was recently admitted to the hospital and discharged. PAST MEDICAL HISTORY: History of cardiomyopathy, congestive heart failure, poor ejection fraction, ascites, cirrhosis, hepatitis C, history of cardiogenic shock, history of hypertension, hypothyroidism, status post AICD placement, emphysema, anemia, and chronic renal failure. FAMILY HISTORY: Noncontributory. SOCIAL HISTORY: The patient does not smoke or drink alcohol. He is single. REVIEW OF SYSTEMS: Otherwise negative. MEDICATIONS: Please see the chart list for details. PHYSICAL EXAMINATION: GENERAL: A well-developed, well-nourished man, seen in his room. HEENT: Normocephalic and atraumatic. Sclerae are anicteric. Oropharynx is clear. NECK: Supple. CHEST: Clear to auscultation. CARDIOVASCULAR: Regular rate. ABDOMEN: Soft. Mildly distended without obvious fluid wave. EXTREMITIES: No edema. LABORATORY DATA: Noted. ASSESSMENT: This patient presents with complaints of abdominal distention and ascites, although on my examination I doubt that he has significant ascites. Nonetheless, abdominal ultrasound to be done both to evaluate him for ascites and also to screen him for hepatocellular carcinoma given the history of cirrhosis. I would also check his hepatitis C for eradication. The patient's prognosis is obviously poor. Given his history of congestive heart failure, it should be monitored very closely. RECOMMENDATIONS: 1. Check abdominal ultrasound. 2. Check alpha-fetoprotein. 3. Diuretics. 4. Follow laboratory parameters and exam. Thank you for asking me to participate in the care of this patient. Aurelia Ren M.D. DR: JON JOB#: [id number] CC: CAMPBELL
[2018-06-01 04:00] VITALS: BP 106/73
[2018-06-01] MEDS ORDERED: Levothyroxine 125mcg tab ORAL SCH (06:30)
[2018-06-01 07:11] LABS: ALANINE AMINOTRANSFERASE 18 U/L (12-78); ALBUMIN 2.9 G/DL (3.4-5.0); ALBUMIN/GLOBULIN RATIO 0.6 (1.0-2.7); ALKALINE PHOSPHATASE 122 U/L (46-116); ANION GAP 7 mmol/L (5-15); ASPARTATE AMINO TRANSFERASE 18 U/L (15-37); BILIRUBIN,TOTAL 1.8 MG/DL (0.2-1.0); BLOOD UREA NITROGEN 52 mg/dL (7-18); CALCIUM 8.6 MG/DL (8.5-10.1); CARBON DIOXIDE 30 MMOL/L (21-32); CHLORIDE 99 MMOL/L (98-107); PHOSPHORUS 3.8 MG/DL (2.5-4.9); SODIUM 136 MMOL/L (136-145)
[2018-06-01 07:13] LABS: BILIRUBIN,DIRECT 1.2 MG/DL (0.0-0.3)
[2018-06-01 08:07] VITALS: BP 96/60
[2018-06-01] MEDS: Docusate 100mg cap ORAL SCH ×3 (08:11→16:40)
[2018-06-01] MEDS: Heparin 5000 units/ml inj SUBQ SCH (08:11)
--- NOTE | 2018-06-01 08:42 | General Progress Note ---
Assessment/Plan Assessment/Plan (1) Lumbar degenerative disc disease (2) Lumbar spondylosis (3) Lumbar radiculopathy (4) Liver Cirrhosis (5) Abdominal pain Pt will be continued on Oxycodone. Pt was d/w Dr. Carson and he concurred. Subjective Date patient seen: Jun 01, 2018 Time patient seen: 07:30 - am Allergies: Coded Allergies: HYDROMORPHONE (Verified Allergy, Unknown, 12/28/10) Subjective Constitutional: Reports: weakness, Denies: chills, diaphoresis, fever, malaise , no symptoms, other HEENT: Denies: blurred vision, double vision, ear discharge, ear pain, eye pain , mouth pain, mouth swelling, no symptoms, nose congestion, nose pain, other, tearing, throat pain, throat swelling Cardiovascular: Denies: irregular heart rate, lightheadedness, no symptoms, other, palpitations, syncope Respiratory: Denies: SOB at rest, SOB with excertion, cough, no symptoms, orthopnea, other, shortness of breath, sputum, stridor, wheezing Gastrointestinal/Abdominal: Reports: abdominal pain, Denies: abdomen distended , black stools, blood in stool, constipated, diarrhea, difficulty swallowing, nausea, no symptoms, other, poor appetite, poor fluid intake, rectal bleeding, tarry stools, vomiting Genitourinary: Denies: burning, discharge, flank pain, frequency, hematuria, incontinence, no symptoms, other, pain, urgency Neurologic/Psychiatric: Reports: weakness, Denies: anxiety, depressed, emotional problems, headache, no symptoms, numbness, other, paresthesia, pre- existing deficit, seizure, tingling, tremors Endocrine: Denies: excessive sweating, flushing, increased hunger, increased thirst, increased urine, intolerance to cold, intolerance to heat, no symptoms, other, unexplained weight gain, unexplained weight loss Hematologic/Lymphatic: Denies: anemia, easy bleeding, easy bruising, no symptoms, other Subjective Patient is doing well and pain is tolerated on the Oxycodone. Objective Last 24 Hour Vital Signs Date Time Temp Pulse Resp B/P (MAP) Pulse Ox O2 Delivery O2 Flow Rate FiO2 06/01/18 08:26 80 06/01/18 08:10 96/60 06/01/18 08:07 97.9 80 20 96/60 (72) 100 06/01/18 07:41 78 16 Room Air 21 06/01/18 04:00 76 06/01/18 04:00 97.9 72 20 106/73 (84) 100 06/01/18 00:00 74 06/01/18 00:00 97.3 70 12 105/76 (86) 100 05/31/18 21:00 Room Air 05/31/18 20:00 97.5 68 12 112/81 (91) 100 05/31/18 20:00 74 05/31/18 16:00 98.0 72 20 96/64 (75) 98 05/31/18 16:00 71 05/31/18 12:00 97.5 78 20 98/63 (75) 99 05/31/18 12:00 71 05/31/18 09:00 Room Air Intake and Output 05/31/18 06/01/18 19:00 07:00 Intake Total 360 ml Output Total 700 ml 100 ml Balance -340 ml -100 ml Intake Oral 360 ml Output Urine Total 700 ml 100 ml Laboratory Tests 05/31/18 16:00: Urine Color Yellow, Urine Appearance Slightly cloudy, Urine pH 5, Urine Specific [place] 1.010, Urine Protein 2+H, Urine Glucose (UA) Negative, Urine Ketones Negative, Urine Blood Negative, Urine Nitrite Negative, Urine Bilirubin Negative, Urine Urobilinogen 4H, Urine Leukocyte Esterase Negative, Urine RBC 0 , Urine WBC 0-2, Urine Squamous Epithelial Cells Occasional, Urine Amorphous Sediment ModerateH, Urine Bacteria Few, Urine Opiates Screen Negative, Urine Barbiturates Screen Negative, Phencyclidine (PCP) Screen Negative, Urine Amphetamines Screen Negative, Urine Benzodiazepines Screen Negative, Urine Cocaine Screen Negative, Urine Marijuana (THC) Screen PositiveH 06/01/18 06:00: Sodium Level 136, Potassium Level 4.0, Chloride Level 99, Carbon Dioxide Level 30, Anion Gap 7, Blood Urea Nitrogen 52H, Creatinine 2.0H, Estimat Glomerular Filtration Rate 40.8, Glucose Level 92, Uric Acid 11.7H, Calcium Level 8.6, Phosphorus Level 3.8, Magnesium Level 1.9, Total Bilirubin 1.8H, Direct Bilirubin 1.2H, Aspartate Amino Transf (AST/SGOT) 18, Alanine Aminotransferase ( ALT/SGPT) 18, Alkaline Phosphatase 122H, Ammonia 31, Troponin I 0.046, Pro-B- Type Natriuretic Peptide 6179H, Total Protein 7.7, Albumin 2.9L, Globulin 4.8, Albumin/Globulin Ratio 0.6L, Alpha Fetoprotein [Pending], Thyroid Stimulating Hormone (TSH) 25.947H, Digoxin Level 0.5, Hepatitis C Antibody [Pending], Hepatitis C RNA (PCR) IUs/ml [Pending], Hepatitis C RNA (PCR) log IUs/ml [ Pending] Height (Feet): 5 Height (Inches): 9.00 Weight (Pounds): 162 Objective General Appearance: no apparent distress, alert EENT: normal ENT inspection, TMs normal Neck: normal alignment, supple Cardiovascular: normal rate, regular rhythm Respiratory/Chest: lungs clear, normal breath sounds Abdomen: tender, distended Extremities: non-tender Edema: edema noted in b/l LE Neurologic: alert, oriented x 3 Skin: warm/dry Luc Sanchez Jun 01, 2018 08:42
[2018-06-01] MEDS ORDERED: Spironolactone 25mg tab ORAL SCH (09:00)
[2018-06-01] MEDS ORDERED: Digoxin 0.125mg tab ORAL SCH ×3 (09:00)
[2018-06-01] MEDS ORDERED: HydrALAZINE 10mg Tab ORAL SCH (09:00)
[2018-06-01] MEDS ORDERED: Imdur 30mg tab ORAL SCH (09:00)
[2018-06-01 09:27] LABS: BASOPHILS % (AUTO) 1.5 % (0.0-2.0); EOSINOPHILS % (AUTO) 2.6 % (0.0-3.0); HEMATOCRIT 32.9 % (42.0-52.0); LYMPHOCYTES % (AUTO) 21.7 % (20.0-45.0); MEAN CORPUSCULAR VOLUME 84 FL (80-99); MONOCYTES % (AUTO) 12.6 % (1.0-10.0); NEUTROPHILS % (AUTO) 61.5 % (45.0-75.0); PLATELET COUNT 166 K/UL (150-450); RED CELL DISTRIBUTION WIDTH 19.8 % (11.6-14.8); WHITE BLOOD COUNT 4.3 K/UL (4.8-10.8)
--- NOTE | 2018-06-01 10:43 | GI Progress Note ---
Assessment/Plan Problems: (1) Cirrhosis ICD Codes: K74.60 - Unspecified cirrhosis of liver SNOMED: 32277709 (2) Right-sided heart failure ICD Codes: I50.9 - Right-sided heart failure SNOMED: 289926442 (3) Ascites ICD Codes: R18.8 - Ascites SNOMED: 857718832 (4) Anemia ICD Codes: D64.9 - Anemia, unspecified SNOMED: 085246895 Status: unchanged Status Narrative Discussed with Dr. Ryan. Assessment/Plan Assessment - Hepatitis C, eradicated per pt - Possible ascites, but volume likely small - CM - Azotemia - cardiac ascites Recommendations - Check U/S, being done today - Check AFP - Diuretics - Na restriction - fu cardiology recs The patient was seen and examined at bedside and all new and available data was reviewed in the patients chart. I agree with the above findings, impression and plan. (Patient seen earlier today. Signature stamp does not reflect patient encounter time.). - Beto Ryan MD Subjective Subjective abdominal discomfort and distention Objective Last 24 Hour Vital Signs Date Time Temp Pulse Resp B/P (MAP) Pulse Ox O2 Delivery O2 Flow Rate FiO2 06/01/18 09:00 Room Air 06/01/18 08:26 80 06/01/18 08:10 96/60 06/01/18 08:07 97.9 80 20 96/60 (72) 100 06/01/18 07:47 75 06/01/18 07:41 78 16 Room Air 21 06/01/18 04:00 76 06/01/18 04:00 97.9 72 20 106/73 (84) 100 06/01/18 00:00 74 06/01/18 00:00 97.3 70 12 105/76 (86) 100 05/31/18 21:00 Room Air 05/31/18 20:00 97.5 68 12 112/81 (91) 100 05/31/18 20:00 74 05/31/18 16:00 98.0 72 20 96/64 (75) 98 05/31/18 16:00 71 05/31/18 12:00 97.5 78 20 98/63 (75) 99 05/31/18 12:00 71 Intake and Output 05/31/18 06/01/18 19:00 07:00 Intake Total 360 ml Output Total 700 ml 100 ml Balance -340 ml -100 ml Intake Oral 360 ml Output Urine Total 700 ml 100 ml Laboratory Tests Test 05/31/18 16:00 06/01/18 06:00 06/01/18 08:15 Urine Color Yellow Urine Appearance Slightly cloudy Urine pH 5 (4.5-8.0) Urine Specific [place] 1.010 (1.005-1.035) Urine Protein 2+ (NEGATIVE) H Urine Glucose (UA) Negative (NEGATIVE) Urine Ketones Negative (NEGATIVE) Urine Blood Negative (NEGATIVE) Urine Nitrite Negative (NEGATIVE) Urine Bilirubin Negative (NEGATIVE) Urine Urobilinogen 4 MG/DL (0.0-1.0) H Urine Leukocyte Esterase Negative (NEGATIVE) Urine RBC 0 /HPF (0 - 0) Urine WBC 0-2 /HPF (0 - 0) Urine Squamous Epithelial Cells Occasional /LPF Urine Amorphous Sediment Moderate /LPF (NONE) H Urine Bacteria Few /HPF (NONE) Urine Opiates Screen Negative (NEGATIVE) Urine Barbiturates Screen Negative (NEGATIVE) Phencyclidine (PCP) Screen Negative (NEGATIVE) Urine Amphetamines Screen Negative (NEGATIVE) Urine Benzodiazepines Screen Negative (NEGATIVE) Urine Cocaine Screen Negative (NEGATIVE) Urine Marijuana (THC) Screen Positive (NEGATIVE) H Sodium Level 136 MMOL/L (136-145) Potassium Level 4.0 MMOL/L (3.5-5.1) Chloride Level 99 MMOL/L (98-107) Carbon Dioxide Level 30 MMOL/L (21-32) Anion Gap 7 mmol/L (5-15) Blood Urea Nitrogen 52 mg/dL (7-18) H Creatinine 2.0 MG/DL (0.55-1.30) H Estimat Glomerular Filtration Rate 40.8 mL/min (>60) Glucose Level 92 MG/DL (74-106) Uric Acid 11.7 MG/DL (2.6-7.2) H Calcium Level 8.6 MG/DL (8.5-10.1) Phosphorus Level 3.8 MG/DL (2.5-4.9) Magnesium Level 1.9 MG/DL (1.8-2.4) Total Bilirubin 1.8 MG/DL (0.2-1.0) H Direct Bilirubin 1.2 MG/DL (0.0-0.3) H Aspartate Amino Transf (AST/SGOT) 18 U/L (15-37) Alanine Aminotransferase (ALT/SGPT) 18 U/L (12-78) Alkaline Phosphatase 122 U/L (46-116) H Ammonia 31 umol/L (11-32) Troponin I 0.046 ng/mL (0.000-0.056) Pro-B-Type Natriuretic Peptide 6179 pg/mL (0-125) H Total Protein 7.7 G/DL (6.4-8.2) Albumin 2.9 G/DL (3.4-5.0) L Globulin 4.8 g/dL Albumin/Globulin Ratio 0.6 (1.0-2.7) L Alpha Fetoprotein Pending Thyroid Stimulating Hormone (TSH) 25.947 uiU/mL (0.358-3.740) Digoxin Level 0.5 NG/ML (0.5-2.0) Hepatitis C Antibody Pending Hepatitis C RNA (PCR) IUs/ml Pending Hepatitis C RNA (PCR) log IUs/ml Pending White Blood Count 4.3 K/UL (4.8-10.8) L Red Blood Count 3.90 M/UL (4.70-6.10) L Hemoglobin 10.0 G/DL (14.2-18.0) L Hematocrit 32.9 % (42.0-52.0) L Mean Corpuscular Volume 84 FL (80-99) Mean Corpuscular Hemoglobin 25.5 PG (27.0-31.0) L Mean Corpuscular Hemoglobin Concent 30.3 G/DL (32.0-36.0) L Red Cell Distribution Width 19.8 % (11.6-14.8) H Platelet Count 166 K/UL (150-450) Mean Platelet Volume 6.2 FL (6.5-10.1) L Neutrophils (%) (Auto) 61.5 % (45.0-75.0) Lymphocytes (%) (Auto) 21.7 % (20.0-45.0) Monocytes (%) (Auto) 12.6 % (1.0-10.0) H Eosinophils (%) (Auto) 2.6 % (0.0-3.0) Basophils (%) (Auto) 1.5 % (0.0-2.0) Height (Feet): 5 Height (Inches): 9.00 Weight (Pounds): 162 General Appearance: WD/WN, no apparent distress, alert Cardiovascular: normal rate Respiratory/Chest: normal breath sounds, no respiratory distress Abdominal Exam: normal bowel sounds, non tender, soft, distended Extremities: non-tender Kiarra Bird NP Jun 01, 2018 10:43
--- NOTE | 2018-06-01 10:55 | Nephrology Progress Note ---
Assessment/Plan Problem List: (1) Acute renal failure (2) Cardiorenal syndrome (3) Cirrhosis (4) ICD (implantable cardioverter-defibrillator) in place (5) Cardiomyopathy due to hypertension, with heart failure Assessment 1. Acute kidney injury on chronic kidney disease, stage 4 secondary to cardiorenal syndrome from low ejection fraction. Has ICD 2. Hyperkalemia, improving 3. Decompensated congestive heart failure. 4. Ascites. Cardiogenic in nature. Has underlying hepatitis. 5. Shortness of breath, Plan Stop Aldactone Dig level checked optimize cardiac function ua urine tox screen Kayexelate- Reglan IV Allopurinol monitor renal parameters IV Iron ? Paracenthesis?? Objective Objective Last 24 Hour Vital Signs Date Time Temp Pulse Resp B/P (MAP) Pulse Ox O2 Delivery O2 Flow Rate FiO2 06/01/18 09:00 Room Air 06/01/18 08:26 80 06/01/18 08:10 96/60 06/01/18 08:07 97.9 80 20 96/60 (72) 100 06/01/18 07:47 75 06/01/18 07:41 78 16 Room Air 21 06/01/18 04:00 76 06/01/18 04:00 97.9 72 20 106/73 (84) 100 06/01/18 00:00 74 06/01/18 00:00 97.3 70 12 105/76 (86) 100 05/31/18 21:00 Room Air 05/31/18 20:00 97.5 68 12 112/81 (91) 100 05/31/18 20:00 74 05/31/18 16:00 98.0 72 20 96/64 (75) 98 05/31/18 16:00 71 05/31/18 12:00 97.5 78 20 98/63 (75) 99 05/31/18 12:00 71 Intake and Output 05/31/18 06/01/18 19:00 07:00 Intake Total 360 ml Output Total 700 ml 100 ml Balance -340 ml -100 ml Intake Oral 360 ml Output Urine Total 700 ml 100 ml Laboratory Tests 05/31/18 16:00: Urine Color Yellow, Urine Appearance Slightly cloudy, Urine pH 5, Urine Specific [place] 1.010, Urine Protein 2+H, Urine Glucose (UA) Negative, Urine Ketones Negative, Urine Blood Negative, Urine Nitrite Negative, Urine Bilirubin Negative, Urine Urobilinogen 4H, Urine Leukocyte Esterase Negative, Urine RBC 0 , Urine WBC 0-2, Urine Squamous Epithelial Cells Occasional, Urine Amorphous Sediment ModerateH, Urine Bacteria Few, Urine Opiates Screen Negative, Urine Barbiturates Screen Negative, Phencyclidine (PCP) Screen Negative, Urine Amphetamines Screen Negative, Urine Benzodiazepines Screen Negative, Urine Cocaine Screen Negative, Urine Marijuana (THC) Screen PositiveH 06/01/18 06:00: Sodium Level 136, Potassium Level 4.0, Chloride Level 99, Carbon Dioxide Level 30, Anion Gap 7, Blood Urea Nitrogen 52H, Creatinine 2.0H, Estimat Glomerular Filtration Rate 40.8, Glucose Level 92, Uric Acid 11.7H, Calcium Level 8.6, Phosphorus Level 3.8, Magnesium Level 1.9, Total Bilirubin 1.8H, Direct Bilirubin 1.2H, Aspartate Amino Transf (AST/SGOT) 18, Alanine Aminotransferase ( ALT/SGPT) 18, Alkaline Phosphatase 122H, Ammonia 31, Troponin I 0.046, Pro-B- Type Natriuretic Peptide 6179H, Total Protein 7.7, Albumin 2.9L, Globulin 4.8, Albumin/Globulin Ratio 0.6L, Alpha Fetoprotein [Pending], Thyroid Stimulating Hormone (TSH) 25.947H, Digoxin Level 0.5, Hepatitis C Antibody [Pending], Hepatitis C RNA (PCR) IUs/ml [Pending], Hepatitis C RNA (PCR) log IUs/ml [ Pending] 06/01/18 08:15: White Blood Count 4.3L, Red Blood Count 3.90L, Hemoglobin 10.0L, Hematocrit 32.9L, Mean Corpuscular Volume 84, Mean Corpuscular Hemoglobin 25.5L, Mean Corpuscular Hemoglobin Concent 30.3L, Red Cell Distribution Width 19.8H, Platelet Count 166, Mean Platelet Volume 6.2L, Neutrophils (%) (Auto) 61.5, Lymphocytes (%) (Auto) 21.7, Monocytes (%) (Auto) 12.6H, Eosinophils (%) (Auto) 2.6, Basophils (%) (Auto) 1.5 Height (Feet): 5 Height (Inches): 9.00 Weight (Pounds): 162 Blaine Rojas MD Jun 01, 2018 10:55
--- NOTE | 2018-06-01 11:41 | Diagnostic Imaging Report ---
Indication: Shortness of breath Technique: One view of the chest Comparison: 05/31/2018 Findings: The heart is enlarged. Bilateral interstitial and airspace disease, right greater than left, persists. There is suggestion of a small right pleural effusion again demonstrated. Left chest bifocal AICD, right arm PICC remain. Allowing for differences in degree of inspiration, findings are probably unchanged Impression: Unchanged, over one day, findings as above.
[2018-06-01 11:44] VITALS: BP 101/70
--- NOTE | 2018-06-01 12:26 | Physician Query ---
--------- THIS DOCUMENT IS A PERMANENT PART OF THE MEDICAL RECORD --------- PLEASE COMPLETE THE DOCUMENT BEFORE SIGNING Dear Dr. Rojas Date: Field Aide/CDS Name: Orlando Black Field Aide / CDS Phone # [phone] Exercise your independent professional judgment when responding to query. Question asked do not imply a particular answer is desired/expected Clinical Documentation States: "Decompensated CHF" documented in consult and progress notes. Clinical Findings Show: BNP: 6179, Diuretic: IV Furosemide. CXR: Cardiomegaly. Can you please clarify the nature of CHF? Acuity [] Acute [] Chronic [] Acute on Chronic Type [] Systolic [] Diastolic [*] Systolic & Diastolic (Combined) [] Left Heart failure [] Other: [] Clinically Undeterminable Condition Present on Admission: [ ] Yes [ ] No [ ] Clinically Undeterminable Please also document in your Progress Notes and/or Discharge Summary and indicate if the condition was present on admission. Sweetie HIGHTOWER
--- NOTE | 2018-06-01 12:48 | Diagnostic Imaging Report ---
Indication: Abnormal liver function tests, abnormal renal function tests Technique: Lofton-scale and duplex images of the upper abdomen were obtained. Doppler interrogation of the hepatic and pancreatic vessels Comparison: On 05/05/2017 Findings: Gallbladder is unremarkable, without stones, wall thickening, nor pericholecystic fluid. Sonographic Hinojosa's sign is negative. Common bile duct measures 5 mm in diameter. No intrahepatic biliary ductal dilatation. Liver demonstrates normal echogenicity, no focal abnormality. There is surface micronodularity, however. Portal vein and hepatic veins are patent. There is ascites fluid present. Pancreas is unremarkable. Spleen is unremarkable. Left kidney measures 10.3 cm in length. Right kidney measures 9.8 cm length. Both kidneys demonstrate normal echogenicity. There is no hydronephrosis. No focal abnormality . Abdominal aorta is partially obscured by bowel gas, visualized portions are non-aneurysmal . A small amount of pleural fluid is seen on the right. Impression: Hepatic surface micronodularity, consistent with cirrhosis. This is a new finding since prior study of 06/26/2016 Ascites, also new since prior study Negative for gallstones or dilated ducts Small right pleural effusion Note incomplete visualization of the abdominal aorta
--- NOTE | 2018-06-01 13:01 | Cardiac Electrophysiology PN ---
Subjective Subjective [id number] Objective Last 24 Hour Vital Signs Date Time Temp Pulse Resp B/P (MAP) Pulse Ox O2 Delivery O2 Flow Rate FiO2 06/01/18 11:44 98.4 72 20 101/70 (80) 100 06/01/18 09:00 Room Air 06/01/18 08:26 80 06/01/18 08:10 96/60 06/01/18 08:07 97.9 80 20 96/60 (72) 100 06/01/18 07:47 75 06/01/18 07:41 78 16 Room Air 21 06/01/18 04:00 76 06/01/18 04:00 97.9 72 20 106/73 (84) 100 06/01/18 00:00 74 06/01/18 00:00 97.3 70 12 105/76 (86) 100 05/31/18 21:00 Room Air 05/31/18 20:00 97.5 68 12 112/81 (91) 100 05/31/18 20:00 74 05/31/18 16:00 98.0 72 20 96/64 (75) 98 05/31/18 16:00 71 Intake and Output 05/31/18 06/01/18 18:59 06:59 Intake Total 360 ml Output Total 700 ml 100 ml Balance -340 ml -100 ml Intake Oral 360 ml Output Urine Total 700 ml 100 ml Laboratory Tests Test 05/31/18 16:00 06/01/18 06:00 06/01/18 08:15 Urine Color Yellow Urine Appearance Slightly cloudy Urine pH 5 (4.5-8.0) Urine Specific [place] 1.010 (1.005-1.035) Urine Protein 2+ (NEGATIVE) H Urine Glucose (UA) Negative (NEGATIVE) Urine Ketones Negative (NEGATIVE) Urine Blood Negative (NEGATIVE) Urine Nitrite Negative (NEGATIVE) Urine Bilirubin Negative (NEGATIVE) Urine Urobilinogen 4 MG/DL (0.0-1.0) H Urine Leukocyte Esterase Negative (NEGATIVE) Urine RBC 0 /HPF (0 - 0) Urine WBC 0-2 /HPF (0 - 0) Urine Squamous Epithelial Cells Occasional /LPF Urine Amorphous Sediment Moderate /LPF (NONE) H Urine Bacteria Few /HPF (NONE) Urine Opiates Screen Negative (NEGATIVE) Urine Barbiturates Screen Negative (NEGATIVE) Phencyclidine (PCP) Screen Negative (NEGATIVE) Urine Amphetamines Screen Negative (NEGATIVE) Urine Benzodiazepines Screen Negative (NEGATIVE) Urine Cocaine Screen Negative (NEGATIVE) Urine Marijuana (THC) Screen Positive (NEGATIVE) H Sodium Level 136 MMOL/L (136-145) Potassium Level 4.0 MMOL/L (3.5-5.1) Chloride Level 99 MMOL/L (98-107) Carbon Dioxide Level 30 MMOL/L (21-32) Anion Gap 7 mmol/L (5-15) Blood Urea Nitrogen 52 mg/dL (7-18) H Creatinine 2.0 MG/DL (0.55-1.30) H Estimat Glomerular Filtration Rate 40.8 mL/min (>60) Glucose Level 92 MG/DL (74-106) Uric Acid 11.7 MG/DL (2.6-7.2) H Calcium Level 8.6 MG/DL (8.5-10.1) Phosphorus Level 3.8 MG/DL (2.5-4.9) Magnesium Level 1.9 MG/DL (1.8-2.4) Total Bilirubin 1.8 MG/DL (0.2-1.0) H Direct Bilirubin 1.2 MG/DL (0.0-0.3) H Aspartate Amino Transf (AST/SGOT) 18 U/L (15-37) Alanine Aminotransferase (ALT/SGPT) 18 U/L (12-78) Alkaline Phosphatase 122 U/L (46-116) H Ammonia 31 umol/L (11-32) Troponin I 0.046 ng/mL (0.000-0.056) Pro-B-Type Natriuretic Peptide 6179 pg/mL (0-125) H Total Protein 7.7 G/DL (6.4-8.2) Albumin 2.9 G/DL (3.4-5.0) L Globulin 4.8 g/dL Albumin/Globulin Ratio 0.6 (1.0-2.7) L Alpha Fetoprotein Pending Thyroid Stimulating Hormone (TSH) 25.947 uiU/mL (0.358-3.740) Digoxin Level 0.5 NG/ML (0.5-2.0) Hepatitis C Antibody Pending Hepatitis C RNA (PCR) IUs/ml Pending Hepatitis C RNA (PCR) log IUs/ml Pending White Blood Count 4.3 K/UL (4.8-10.8) L Red Blood Count 3.90 M/UL (4.70-6.10) L Hemoglobin 10.0 G/DL (14.2-18.0) L Hematocrit 32.9 % (42.0-52.0) L Mean Corpuscular Volume 84 FL (80-99) Mean Corpuscular Hemoglobin 25.5 PG (27.0-31.0) L Mean Corpuscular Hemoglobin Concent 30.3 G/DL (32.0-36.0) L Red Cell Distribution Width 19.8 % (11.6-14.8) H Platelet Count 166 K/UL (150-450) Mean Platelet Volume 6.2 FL (6.5-10.1) L Neutrophils (%) (Auto) 61.5 % (45.0-75.0) Lymphocytes (%) (Auto) 21.7 % (20.0-45.0) Monocytes (%) (Auto) 12.6 % (1.0-10.0) H Eosinophils (%) (Auto) 2.6 % (0.0-3.0) Basophils (%) (Auto) 1.5 % (0.0-2.0) Microbiology Date/Time Source Procedure Growth Status 05/30/18 14:07 Nasal Nares MRSA Culture - Final NO METHICILLIN RESISTANT STAPH AUREUS... Complete 05/30/18 14:07 Rectum VRE Culture - Final NO VANCOMYCIN RESISTANT ENTEROCOCCUS ... Complete 05/30/18 14:07 Rectum - Final NO CARBAPENEM-RESISTANT ENTEROBACTERI... Complete Rc Zhang MD Jun 01, 2018 13:00
--- NOTE | 2018-06-01 13:47 | Pulmonology Progress Note ---
Assessment/Plan Problems: (1) Ascites (2) ICD (implantable cardioverter-defibrillator) in place (3) Cirrhosis (4) Cardiomyopathy due to hypertension, with heart failure (5) Emphysema lung (6) Right-sided heart failure (7) Cardiorenal syndrome (8) Hepatitis C Assessment/Plan paracentesis diuretics check electrolytes Pt goes [facility] [place] Suggest end of life care. Subjective ROS Limited/Unobtainable: No Constitutional: Reports: no symptoms HEENT: Repors: no symptoms Respiratory: Reports: no symptoms Allergies: Coded Allergies: HYDROMORPHONE (Verified Allergy, Unknown, 12/28/10) Objective Last 24 Hour Vital Signs Date Time Temp Pulse Resp B/P (MAP) Pulse Ox O2 Delivery O2 Flow Rate FiO2 06/01/18 11:44 98.4 72 20 101/70 (80) 100 06/01/18 09:00 Room Air 06/01/18 08:26 80 06/01/18 08:10 96/60 06/01/18 08:07 97.9 80 20 96/60 (72) 100 06/01/18 07:47 75 06/01/18 07:41 78 16 Room Air 21 06/01/18 04:00 76 06/01/18 04:00 97.9 72 20 106/73 (84) 100 06/01/18 00:00 74 06/01/18 00:00 97.3 70 12 105/76 (86) 100 05/31/18 21:00 Room Air 05/31/18 20:00 97.5 68 12 112/81 (91) 100 05/31/18 20:00 74 05/31/18 16:00 98.0 72 20 96/64 (75) 98 05/31/18 16:00 71 Intake and Output 05/31/18 06/01/18 19:00 07:00 Intake Total 360 ml Output Total 700 ml 100 ml Balance -340 ml -100 ml Intake Oral 360 ml Output Urine Total 700 ml 100 ml General Appearance: WD/WN HEENT: normocephalic, atraumatic Respiratory/Chest: chest wall non-tender, lungs clear Cardiovascular: normal peripheral pulses, regular rhythm Abdomen: normal bowel sounds, no organomegaly Genitourinary: normal external genitalia Extremities: no clubbing Skin: no rash Lymphatic: no neck adenopathy Microbiology Date/Time Source Procedure Growth Status 05/30/18 14:07 Nasal Nares MRSA Culture - Final NO METHICILLIN RESISTANT STAPH AUREUS... Complete 05/30/18 14:07 Rectum VRE Culture - Final NO VANCOMYCIN RESISTANT ENTEROCOCCUS ... Complete 05/30/18 14:07 Rectum - Final NO CARBAPENEM-RESISTANT ENTEROBACTERI... Complete Laboratory Tests 05/31/18 16:00: Urine Color Yellow, Urine Appearance Slightly cloudy, Urine pH 5, Urine Specific [place] 1.010, Urine Protein 2+H, Urine Glucose (UA) Negative, Urine Ketones Negative, Urine Blood Negative, Urine Nitrite Negative, Urine Bilirubin Negative, Urine Urobilinogen 4H, Urine Leukocyte Esterase Negative, Urine RBC 0 , Urine WBC 0-2, Urine Squamous Epithelial Cells Occasional, Urine Amorphous Sediment ModerateH, Urine Bacteria Few, Urine Opiates Screen Negative, Urine Barbiturates Screen Negative, Phencyclidine (PCP) Screen Negative, Urine Amphetamines Screen Negative, Urine Benzodiazepines Screen Negative, Urine Cocaine Screen Negative, Urine Marijuana (THC) Screen PositiveH 06/01/18 06:00: Sodium Level 136, Potassium Level 4.0, Chloride Level 99, Carbon Dioxide Level 30, Anion Gap 7, Blood Urea Nitrogen 52H, Creatinine 2.0H, Estimat Glomerular Filtration Rate 40.8, Glucose Level 92, Uric Acid 11.7H, Calcium Level 8.6, Phosphorus Level 3.8, Magnesium Level 1.9, Total Bilirubin 1.8H, Direct Bilirubin 1.2H, Aspartate Amino Transf (AST/SGOT) 18, Alanine Aminotransferase ( ALT/SGPT) 18, Alkaline Phosphatase 122H, Ammonia 31, Troponin I 0.046, Pro-B- Type Natriuretic Peptide 6179H, Total Protein 7.7, Albumin 2.9L, Globulin 4.8, Albumin/Globulin Ratio 0.6L, Alpha Fetoprotein [Pending], Thyroid Stimulating Hormone (TSH) 25.947H, Digoxin Level 0.5, Hepatitis C Antibody [Pending], Hepatitis C RNA (PCR) IUs/ml [Pending], Hepatitis C RNA (PCR) log IUs/ml [ Pending] 06/01/18 08:15: White Blood Count 4.3L, Red Blood Count 3.90L, Hemoglobin 10.0L, Hematocrit 32.9L, Mean Corpuscular Volume 84, Mean Corpuscular Hemoglobin 25.5L, Mean Corpuscular Hemoglobin Concent 30.3L, Red Cell Distribution Width 19.8H, Platelet Count 166, Mean Platelet Volume 6.2L, Neutrophils (%) (Auto) 61.5, Lymphocytes (%) (Auto) 21.7, Monocytes (%) (Auto) 12.6H, Eosinophils (%) (Auto) 2.6, Basophils (%) (Auto) 1.5 Current Medications Medications (Trade) Dose Ordered Sig/Allyn Route PRN Reason Start Time Stop Time Status Last Admin Dose Admin Acetaminophen (Tylenol) 650 mg Q4H PRN ORAL Mild Pain/Temp > 100.5 05/30/18 19:15 06/29/18 15:14 Albuterol/ Ipratropium (Albuterol/ Ipratropium) 3 ml Q4H PRN HHN Shortness of Breath 05/30/18 15:15 06/04/18 15:14 Allopurinol (Allopurinol) 300 mg DAILY ORAL 06/01/18 09:00 07/01/18 08:59 Carvedilol (Coreg) 3.125 mg EVERY 12 HOURS ORAL 06/01/18 21:00 07/01/18 20:59 Chlorhexidine Gluconate (Kalani-Hex 2%) 1 applic DAILY@1999 TOPIC 05/31/18 20:00 06/30/18 19:59 05/31/18 20:30 Dextrose (Dextrose 50%) 25 ml Q30M PRN IV Hypoglycemia 05/30/18 15:15 06/29/18 15:14 Dextrose (Dextrose 50%) 50 ml Q30MIN PRN IV Hypoglycemia 05/30/18 15:15 06/29/18 15:14 Digoxin (Lanoxin) 0.125 mg DAILY ORAL 06/01/18 09:00 07/01/18 08:59 06/01/18 08:26 Docusate Sodium (Colace) 100 mg THREE TIMES A DAY ORAL 05/31/18 18:00 06/30/18 17:59 Furosemide (Lasix) 40 mg EVERY 12 HOURS IV 05/31/18 21:00 06/29/18 21:59 06/01/18 08:13 Heparin Sodium (Porcine) (Heparin 5000 units/ml) 5,000 units EVERY 12 HOURS SUBQ 05/30/18 21:00 06/29/18 20:59 05/31/18 20:32 Iron Sucrose 100 mg/Sodium Chloride 55 ml @ 200 mls/hr BEDTIME IV 05/31/18 21:00 06/05/18 21:17 05/31/18 20:31 Isosorbide Mononitrate (Imdur) 30 mg DAILY ORAL 06/01/18 09:00 07/01/18 08:59 Levothyroxine Sodium (Synthroid) 50 mcg DAILY IV 06/01/18 12:30 07/01/18 12:29 06/01/18 12:44 Metoclopramide HCl (Reglan) 10 mg Q8H PRN IVP Nausea & Vomiting 05/31/18 22:00 06/30/18 21:59 Ondansetron HCl (Zofran) 4 mg Q6H PRN IVP Nausea & Vomiting 05/30/18 15:15 06/29/18 15:14 Oxycodone HCl (Roxicodone) 5 mg Q4H PRN ORAL severe pain 05/31/18 13:36 06/07/18 13:35 06/01/18 08:25 Polyethylene Glycol (Miralax) 17 gm DAILYPRN PRN ORAL Constipation 05/30/18 15:15 06/29/18 15:14 Rivaroxaban (Xarelto) 20 mg Q24H ORAL 05/31/18 16:00 06/30/18 15:59 05/31/18 15:19 Temazepam (Restoril) 15 mg HSPRN PRN ORAL Insomnia 05/30/18 15:15 06/06/18 15:14 Andrzej Chavarria MD Jun 01, 2018 13:47
--- NOTE | 2018-06-01 14:54 | General Progress Note ---
Assessment/Plan Problem List: (1) HTN (hypertension) ICD Codes: I10 - Essential (primary) hypertension SNOMED: 00082749 (2) CHF (congestive heart failure) ICD Codes: I50.9 - Heart failure, unspecified SNOMED: 90235672 (3) Malnutrition ICD Codes: E46 - Unspecified protein-calorie malnutrition SNOMED: 54015912 (4) Chronic pain ICD Codes: G89.29 - Other chronic pain SNOMED: 67305063 (5) Acute renal failure ICD Codes: N17.9 - Acute kidney failure, unspecified SNOMED: 05847401 (6) Ascites ICD Codes: R18.8 - Ascites SNOMED: 510051888 (7) Cirrhosis ICD Codes: K74.60 - Unspecified cirrhosis of liver SNOMED: 53377499 (8) Hepatitis C ICD Codes: B19.20 - Hepatitis C SNOMED: 80865437 (9) Anemia ICD Codes: D64.9 - Anemia, unspecified SNOMED: 819622756 Status: unchanged Assessment/Plan o2 pulm tx pain control diurese cbc bmp am Subjective Constitutional: Reports: weakness Allergies: Coded Allergies: HYDROMORPHONE (Verified Allergy, Unknown, 12/28/10) All Systems: reviewed and negative except above Subjective c/o abd pain swelling Objective Last 24 Hour Vital Signs Date Time Temp Pulse Resp B/P (MAP) Pulse Ox O2 Delivery O2 Flow Rate FiO2 06/01/18 11:53 78 06/01/18 11:44 98.4 72 20 101/70 (80) 100 06/01/18 09:00 Room Air 06/01/18 08:26 80 06/01/18 08:10 96/60 06/01/18 08:07 97.9 80 20 96/60 (72) 100 06/01/18 07:47 75 06/01/18 07:41 78 16 Room Air 21 06/01/18 04:00 76 06/01/18 04:00 97.9 72 20 106/73 (84) 100 06/01/18 00:00 74 06/01/18 00:00 97.3 70 12 105/76 (86) 100 05/31/18 21:00 Room Air 05/31/18 20:00 97.5 68 12 112/81 (91) 100 05/31/18 20:00 74 05/31/18 16:00 98.0 72 20 96/64 (75) 98 05/31/18 16:00 71 Intake and Output 05/31/1818 18:59 06:59 Intake Total 360 ml Output Total 700 ml 100 ml Balance -340 ml -100 ml Intake Oral 360 ml Output Urine Total 700 ml 100 ml Laboratory Tests 05/31/18 16:00: Urine Color Yellow, Urine Appearance Slightly cloudy, Urine pH 5, Urine Specific [place] 1.010, Urine Protein 2+H, Urine Glucose (UA) Negative, Urine Ketones Negative, Urine Blood Negative, Urine Nitrite Negative, Urine Bilirubin Negative, Urine Urobilinogen 4H, Urine Leukocyte Esterase Negative, Urine RBC 0 , Urine WBC 0-2, Urine Squamous Epithelial Cells Occasional, Urine Amorphous Sediment ModerateH, Urine Bacteria Few, Urine Opiates Screen Negative, Urine Barbiturates Screen Negative, Phencyclidine (PCP) Screen Negative, Urine Amphetamines Screen Negative, Urine Benzodiazepines Screen Negative, Urine Cocaine Screen Negative, Urine Marijuana (THC) Screen PositiveH 06/01/18 06:00: Sodium Level 136, Potassium Level 4.0, Chloride Level 99, Carbon Dioxide Level 30, Anion Gap 7, Blood Urea Nitrogen 52H, Creatinine 2.0H, Estimat Glomerular Filtration Rate 40.8, Glucose Level 92, Uric Acid 11.7H, Calcium Level 8.6, Phosphorus Level 3.8, Magnesium Level 1.9, Total Bilirubin 1.8H, Direct Bilirubin 1.2H, Aspartate Amino Transf (AST/SGOT) 18, Alanine Aminotransferase ( ALT/SGPT) 18, Alkaline Phosphatase 122H, Ammonia 31, Troponin I 0.046, Pro-B- Type Natriuretic Peptide 6179H, Total Protein 7.7, Albumin 2.9L, Globulin 4.8, Albumin/Globulin Ratio 0.6L, Alpha Fetoprotein [Pending], Thyroid Stimulating Hormone (TSH) 25.947H, Digoxin Level 0.5, Hepatitis C Antibody [Pending], Hepatitis C RNA (PCR) IUs/ml [Pending], Hepatitis C RNA (PCR) log IUs/ml [ Pending] 06/01/18 08:15: White Blood Count 4.3L, Red Blood Count 3.90L, Hemoglobin 10.0L, Hematocrit 32.9L, Mean Corpuscular Volume 84, Mean Corpuscular Hemoglobin 25.5L, Mean Corpuscular Hemoglobin Concent 30.3L, Red Cell Distribution Width 19.8H, Platelet Count 166, Mean Platelet Volume 6.2L, Neutrophils (%) (Auto) 61.5, Lymphocytes (%) (Auto) 21.7, Monocytes (%) (Auto) 12.6H, Eosinophils (%) (Auto) 2.6, Basophils (%) (Auto) 1.5 Height (Feet): 5 Height (Inches): 9.00 Weight (Pounds): 162 General Appearance: lethargic EENT: normal ENT inspection Neck: normal alignment Cardiovascular: normal peripheral pulses, normal rate, regular rhythm Respiratory/Chest: chest wall non-tender, lungs clear, normal breath sounds Abdomen: normal bowel sounds, hypoactive bowel sounds, distended Extremities: normal inspection Edema: no edema noted Arm (L), no edema noted Arm (R), no edema noted Leg (L), no edema noted Leg (R), no edema noted Pedal (L), no edema noted Pedal (R), no edema noted Generalized Neurologic: responsive, motor weakness Skin: normal pigmentation, warm/dry Shahid Cherry DO Jun 01, 2018 14:54
[2018-06-01 15:43] VITALS: BP 107/69
[2018-06-01] MEDS: Xarelto 10mg tab ORAL SCH (15:45)
[2018-06-01 20:00] VITALS: BP 111/76
[2018-06-01] MEDS ORDERED: Albuterol/Ipratropium 3ml neb HHN PRN (20:45)
[2018-06-01] MEDS ORDERED: oxyCODONE 5mg IR tab ORAL PRN (20:45)
[2018-06-01] MEDS ORDERED: Miralax 17gm pkt ORAL PRN (20:45)
[2018-06-01] MEDS ORDERED: Metoclopramide 10mg/2ml Inj IVP PRN (20:45)
[2018-06-01] MEDS ORDERED: Heparin 5000 units/ml inj SUBQ SCH (21:00)
--- NOTE | 2018-06-01 21:45 | Consultation ---
DATE OF CONSULTATION: 06/01/2018 CARDIAC ELECTROPHYSIOLOGY CONSULTATION CONSULTING PHYSICIAN: Rc Zhang M.D. REFERRING PHYSICIAN: Shahid Cherry D.O. REASON FOR CONSULTATION: Exacerbation of congestive heart failure. HISTORY OF PRESENT ILLNESS: The patient is a 63-year-old gentleman with multiple hospitalizations for congestive heart failure exacerbation last month. The patient has had ejection fraction of around 10% and also hepatitis C and cirrhosis who underwent paracentesis on previous admission. The patient does not drink alcohol. The patient was started on IV dobutamine. He was at [facility] and was discharged home on dobutamine drip at 5 mcg that previous admission was tapered off. The patient was sent for the PICC line. The patient also has history of defibrillator implantation by [facility] and recent defibrillator upgraded at [facility]. The patient presented to the emergency room for increasing shortness of breath and abdominal pain. The patient was admitted and a Cardiology consultation was obtained for further evaluation. REVIEW OF SYSTEMS: Negative other than what was mentioned in the history of present illness. PAST MEDICAL HISTORY: 1. Severe cardiomyopathy, EF of 10%. 2. Status post [facility] biventricular defibrillator implantation. 3. History of hepatitis C and cirrhosis. 4. Paroxysmal atrial fibrillation, status post prior ablations and currently on Xarelto. 5. Hypothyroidism. 6. History of renal failure. FAMILY HISTORY: Noncontributory. PHYSICAL EXAMINATION: VITAL SIGNS: Show blood pressure of 101/70, pulse 72, respirations 20, and temperature 98.4 degrees. HEAD AND NECK: Shows no JVD. LUNGS: Decreased breath sounds. CARDIOVASCULAR: Shows regular. S1 and S2 with S3 gallop with soft systolic murmur. Defibrillator in left subclavian. ABDOMEN: Soft without ascites. EXTREMITIES: A 1+ pitting edema. LABORATORY DATA: His labs show white count of 4.2, hemoglobin of 10, hematocrit 33, and platelet count is 166,000. Sodium is 136, potassium 4.0, BUN of 22, creatinine of 2.0, and glucose of 92. Troponin is negative. ASSESSMENT AND PLAN: 1. Exacerbation of congestive heart failure. The patient is already on digoxin 0.125 mg daily, Imdur 30 mg daily, and Lasix 40 IV b.i.d. The patient may need to be started back on dobutamine drip. We will continue to follow the patient clinically. 2. Paroxysmal atrial fibrillation, which is controlled, on digoxin, Coreg to his medical regimen. The patient on anticoagulation with Xarelto. 3. Status post [facility] biventricular defibrillator with normal function. 4. Hypothyroidism. 5. Hepatitis and cirrhosis, status post paracentesis. Further evaluation by Dr. Ren. 6. Renal failure. BUN of 52 and creatinine of 2. Further evaluation by Dr. Rojas. Thank you very much for allowing me to participate in the care of this patient. Please do not hesitate to contact me for any questions regarding my evaluation. Rc Zhang M.D. DR: MONY JOB#: [id number] CC:
[2018-06-02] VITALS: BP 124/61
[2018-06-02] MEDS: oxyCODONE 5mg IR tab ORAL PRN ×3 (02:01→20:31)
[2018-06-02 04:00] VITALS: BP 130/79
[2018-06-02 07:19] LABS: EOSINOPHILS % (AUTO) 3.7 % (0.0-3.0); HEMATOCRIT 32.6 % (42.0-52.0); HEMOGLOBIN 9.9 G/DL (14.2-18.0); LYMPHOCYTES % (AUTO) 14.7 % (20.0-45.0); MEAN CORPUSCULAR VOLUME 84 FL (80-99); MONOCYTES % (AUTO) 11.3 % (1.0-10.0); NEUTROPHILS % (AUTO) 69.3 % (45.0-75.0); PLATELET COUNT 149 K/UL (150-450); RED BLOOD COUNT 3.86 M/UL (4.70-6.10); RED CELL DISTRIBUTION WIDTH 19.8 % (11.6-14.8); WHITE BLOOD COUNT 5.3 K/UL (4.8-10.8)
[2018-06-02 08:00] VITALS: BP 106/71
[2018-06-02 08:00] LABS: ANION GAP 10 mmol/L (5-15); BLOOD UREA NITROGEN 43 mg/dL (7-18); CALCIUM 8.5 MG/DL (8.5-10.1); CARBON DIOXIDE 28 MMOL/L (21-32); CHLORIDE 99 MMOL/L (98-107); CREATININE 1.8 MG/DL (0.55-1.30); PHOSPHORUS 3.6 MG/DL (2.5-4.9); POTASSIUM 3.8 MMOL/L (3.5-5.1); SODIUM 137 MMOL/L (136-145)
--- NOTE | 2018-06-02 08:53 | General Progress Note ---
Assessment/Plan Assessment/Plan (1) Lumbar degenerative disc disease (2) Lumbar spondylosis (3) Lumbar radiculopathy (4) Liver Cirrhosis (5) Abdominal pain Pt will be continued on Oxycodone. Pt was d/w Dr. Carson and he concurred. Subjective Date patient seen: Jun 02, 2018 Time patient seen: 08:00 - am Allergies: Coded Allergies: HYDROMORPHONE (Verified Allergy, Unknown, 12/28/10) Subjective Constitutional: Reports: weakness, Denies: chills, diaphoresis, fever, malaise , no symptoms, other HEENT: Denies: blurred vision, double vision, ear discharge, ear pain, eye pain , mouth pain, mouth swelling, no symptoms, nose congestion, nose pain, other, tearing, throat pain, throat swelling Cardiovascular: Denies: irregular heart rate, lightheadedness, no symptoms, other, palpitations, syncope Respiratory: Denies: SOB at rest, SOB with excertion, cough, no symptoms, orthopnea, other, shortness of breath, sputum, stridor, wheezing Gastrointestinal/Abdominal: Reports: abdominal pain, Denies: abdomen distended , black stools, blood in stool, constipated, diarrhea, difficulty swallowing, nausea, no symptoms, other, poor appetite, poor fluid intake, rectal bleeding, tarry stools, vomiting Genitourinary: Denies: burning, discharge, flank pain, frequency, hematuria, incontinence, no symptoms, other, pain, urgency Neurologic/Psychiatric: Reports: weakness, Denies: anxiety, depressed, emotional problems, headache, no symptoms, numbness, other, paresthesia, pre- existing deficit, seizure, tingling, tremors Endocrine: Denies: excessive sweating, flushing, increased hunger, increased thirst, increased urine, intolerance to cold, intolerance to heat, no symptoms, other, unexplained weight gain, unexplained weight loss Hematologic/Lymphatic: Denies: anemia, easy bleeding, easy bruising, no symptoms, other Subjective Patient reports that the increase of Oxycodone to 10mg has been helpful with reducing the pain. Was c/o severe pain which the Oxycodone 5mg was not helpful. Objective Last 24 Hour Vital Signs Date Time Temp Pulse Resp B/P (MAP) Pulse Ox O2 Delivery O2 Flow Rate FiO2 06/02/18 04:00 98.1 72 18 130/79 (96) 97 06/02/18 00:00 98.0 72 16 124/61 (82) 98 06/01/18 21:00 Room Air Room Air 06/01/18 21:00 60 111/76 06/01/18 20:00 98.2 60 18 111/76 (88) 99 06/01/18 19:33 79 16 Room Air 21 06/01/18 15:43 98.4 79 20 107/69 (82) 100 06/01/18 11:53 78 06/01/18 11:44 98.4 72 20 101/70 (80) 100 06/01/18 09:00 Room Air Intake and Output 06/01/18 06/02/18 19:00 07:00 Intake Total 370 ml Output Total 950 ml 600 ml Balance -580 ml -600 ml Intake Oral 370 ml Output Urine Total 950 ml 600 ml Laboratory Tests 06/01/18 18:00: Prothrombin Time 20.7H, Prothromb Time International Ratio 2.0H, Activated Partial Thromboplast Time 37H, Troponin I 0.046 06/02/18 05:30: White Blood Count 5.3, Red Blood Count 3.86L, Hemoglobin 9.9L, Hematocrit 32.6L , Mean Corpuscular Volume 84, Mean Corpuscular Hemoglobin 25.7L, Mean Corpuscular Hemoglobin Concent 30.5L, Red Cell Distribution Width 19.8H, Platelet Count 149L, Mean Platelet Volume 6.3L, Neutrophils (%) (Auto) 69.3, Lymphocytes (%) (Auto) 14.7L, Monocytes (%) (Auto) 11.3H, Eosinophils (%) (Auto ) 3.7H, Basophils (%) (Auto) 1.0, Sodium Level 137, Potassium Level 3.8, Chloride Level 99, Carbon Dioxide Level 28, Anion Gap 10, Blood Urea Nitrogen 43H, Creatinine 1.8H, Estimat Glomerular Filtration Rate 46.2, Glucose Level 103 , Calcium Level 8.5, Phosphorus Level 3.6, Magnesium Level 1.7L Height (Feet): 5 Height (Inches): 9.00 Weight (Pounds): 162 Objective General Appearance: no apparent distress, alert EENT: normal ENT inspection, TMs normal Neck: normal alignment, supple Cardiovascular: normal rate, regular rhythm Respiratory/Chest: lungs clear, normal breath sounds Abdomen: tender, distended Extremities: non-tender Edema: edema noted in b/l LE Neurologic: alert, oriented x 3 Skin: warm/dry Luc Sanchez Jun 02, 2018 08:53
[2018-06-02] MEDS: Imdur 30mg tab ORAL SCH ×2 (09:00→09:06)
[2018-06-02] MEDS: Docusate 100mg cap ORAL SCH ×3 (09:08→17:43)
[2018-06-02] MEDS: Digoxin 0.125mg tab ORAL SCH (09:09)
[2018-06-02] MEDS ORDERED: Phytonadione 1 MG in D5W 55 ML IVPB ONE (10:00)
[2018-06-02] MEDS ORDERED: Phytonadione 10 MG in NS 55 ML IVPB ONE (10:00)
--- NOTE | 2018-06-02 10:55 | Cardiac Electrophysiology PN ---
Assessment/Plan Assessment/Plan 1. Exacerbation of congestive heart failure. The patient is already on digoxin 0.125 mg daily, Coreg and Lasix 40 IV b.i.d. DC Imdur 2. Paroxysmal atrial fibrillation, which is controlled, on digoxin, Coreg to his medical regimen. The patient on anticoagulation with Xarelto. Need to hold Xarelto for Paracentesis 3. Status post [facility] biventricular defibrillator with normal function. 4. Hypothyroidism. 5. Hepatitis and cirrhosis, status post paracentesis. Further evaluation by Dr. Ryan. 6. Renal failure. BUN of 52 and creatinine of 2. Further evaluation by Dr. Rojas. EDMAR RN Subjective Subjective Transferred to [facility]. Awaiting Paracentesis after Vit K as INR was high Objective Last 24 Hour Vital Signs Date Time Temp Pulse Resp B/P (MAP) Pulse Ox O2 Delivery O2 Flow Rate FiO2 06/02/18 10:48 85 109/71 06/02/18 09:09 70 06/02/18 08:00 98.4 70 18 106/71 (83) 99 06/02/18 04:00 98.1 72 18 130/79 (96) 97 06/02/18 00:00 98.0 72 16 124/61 (82) 98 06/01/18 21:00 Room Air Room Air 06/01/18 21:00 60 111/76 06/01/18 20:00 98.2 60 18 111/76 (88) 99 06/01/18 19:33 79 16 Room Air 21 06/01/18 15:43 98.4 79 20 107/69 (82) 100 06/01/18 11:53 78 06/01/18 11:44 98.4 72 20 101/70 (80) 100 Intake and Output 06/01/18 06/02/18 19:00 07:00 Intake Total 370 ml Output Total 950 ml 600 ml Balance -580 ml -600 ml Intake Oral 370 ml Output Urine Total 950 ml 600 ml Laboratory Tests Test 06/01/18 18:00 06/02/18 05:30 Prothrombin Time 20.7 SEC (9.30-11.50) H Prothromb Time International Ratio 2.0 (0.9-1.1) H Activated Partial Thromboplast Time 37 SEC (23-33) H Troponin I 0.046 ng/mL (0.000-0.056) White Blood Count 5.3 K/UL (4.8-10.8) Red Blood Count 3.86 M/UL (4.70-6.10) L Hemoglobin 9.9 G/DL (14.2-18.0) L Hematocrit 32.6 % (42.0-52.0) L Mean Corpuscular Volume 84 FL (80-99) Mean Corpuscular Hemoglobin 25.7 PG (27.0-31.0) L Mean Corpuscular Hemoglobin Concent 30.5 G/DL (32.0-36.0) L Red Cell Distribution Width 19.8 % (11.6-14.8) H Platelet Count 149 K/UL (150-450) L Mean Platelet Volume 6.3 FL (6.5-10.1) L Neutrophils (%) (Auto) 69.3 % (45.0-75.0) Lymphocytes (%) (Auto) 14.7 % (20.0-45.0) L Monocytes (%) (Auto) 11.3 % (1.0-10.0) H Eosinophils (%) (Auto) 3.7 % (0.0-3.0) H Basophils (%) (Auto) 1.0 % (0.0-2.0) Sodium Level 137 MMOL/L (136-145) Potassium Level 3.8 MMOL/L (3.5-5.1) Chloride Level 99 MMOL/L (98-107) Carbon Dioxide Level 28 MMOL/L (21-32) Anion Gap 10 mmol/L (5-15) Blood Urea Nitrogen 43 mg/dL (7-18) H Creatinine 1.8 MG/DL (0.55-1.30) H Estimat Glomerular Filtration Rate 46.2 mL/min (>60) Glucose Level 103 MG/DL (74-106) Calcium Level 8.5 MG/DL (8.5-10.1) Phosphorus Level 3.6 MG/DL (2.5-4.9) Magnesium Level 1.7 MG/DL (1.8-2.4) L Microbiology Date/Time Source Procedure Growth Status 05/30/18 14:07 Nasal Nares MRSA Culture - Final NO METHICILLIN RESISTANT STAPH AUREUS... Complete 05/30/18 14:07 Rectum VRE Culture - Final NO VANCOMYCIN RESISTANT ENTEROCOCCUS ... Complete 05/30/18 14:07 Rectum - Final NO CARBAPENEM-RESISTANT ENTEROBACTERI... Complete Objective HEAD AND NECK: Moderate JVD. LUNGS: Decreased breath sounds. CARDIOVASCULAR: Shows regular. S1 and S2 with S3 gallop with soft systolic murmur. Defibrillator in left subclavian. ABDOMEN: Soft with ascites. EXTREMITIES: A 1+ pitting edema. Rc Zhang MD Jun 02, 2018 10:55
[2018-06-02 12:00] VITALS: BP 102/68
--- NOTE | 2018-06-02 12:28 | Nephrology Progress Note ---
Assessment/Plan Problem List: (1) Acute renal failure Assessment: Cr lower (2) Cardiorenal syndrome (3) Cirrhosis (4) ICD (implantable cardioverter-defibrillator) in place (5) Cardiomyopathy due to hypertension, with heart failure Assessment 1. Acute kidney injury on chronic kidney disease, stage 4 secondary to cardiorenal syndrome from low ejection fraction. Has ICD 2. Hyperkalemia, improving 3. Decompensated congestive heart failure. 4. Ascites. Cardiogenic in nature. Has underlying hepatitis. 5. Shortness of breath, Plan Stop Aldactone Dig level checked optimize cardiac function ua urine tox screen Kayexelate- Reglan IV Allopurinol monitor renal parameters IV Iron ? Paracenthesis?? Subjective Constitutional: Reports: malaise Objective Objective Last 24 Hour Vital Signs Date Time Temp Pulse Resp B/P (MAP) Pulse Ox O2 Delivery O2 Flow Rate FiO2 06/02/18 10:48 85 109/71 06/02/18 09:09 70 06/02/18 09:00 109/71 06/02/18 09:00 Room Air Room Air 06/02/18 08:00 98.4 70 18 106/71 (83) 99 06/02/18 04:00 98.1 72 18 130/79 (96) 97 06/02/18 00:00 98.0 72 16 124/61 (82) 98 06/01/18 21:00 Room Air Room Air 06/01/18 21:00 60 111/76 06/01/18 20:00 98.2 60 18 111/76 (88) 99 06/01/18 19:33 79 16 Room Air 21 06/01/18 15:43 98.4 79 20 107/69 (82) 100 Intake and Output 06/01/18 06/02/18 19:00 07:00 Intake Total 370 ml Output Total 950 ml 600 ml Balance -580 ml -600 ml Intake Oral 370 ml Output Urine Total 950 ml 600 ml Laboratory Tests 06/01/18 18:00: Prothrombin Time 20.7H, Prothromb Time International Ratio 2.0H, Activated Partial Thromboplast Time 37H, Troponin I 0.046 06/02/18 05:30: White Blood Count 5.3, Red Blood Count 3.86L, Hemoglobin 9.9L, Hematocrit 32.6L , Mean Corpuscular Volume 84, Mean Corpuscular Hemoglobin 25.7L, Mean Corpuscular Hemoglobin Concent 30.5L, Red Cell Distribution Width 19.8H, Platelet Count 149L, Mean Platelet Volume 6.3L, Neutrophils (%) (Auto) 69.3, Lymphocytes (%) (Auto) 14.7L, Monocytes (%) (Auto) 11.3H, Eosinophils (%) (Auto ) 3.7H, Basophils (%) (Auto) 1.0, Sodium Level 137, Potassium Level 3.8, Chloride Level 99, Carbon Dioxide Level 28, Anion Gap 10, Blood Urea Nitrogen 43H, Creatinine 1.8H, Estimat Glomerular Filtration Rate 46.2, Glucose Level 103 , Calcium Level 8.5, Phosphorus Level 3.6, Magnesium Level 1.7L Height (Feet): 5 Height (Inches): 9.00 Weight (Pounds): 162 General Appearance: no apparent distress Cardiovascular: normal rate Respiratory/Chest: decreased breath sounds Abdomen: distended Blaine Rojas MD Jun 02, 2018 12:28
--- NOTE | 2018-06-02 12:54 | Pulmonology Progress Note ---
Assessment/Plan Problems: (1) Ascites (2) ICD (implantable cardioverter-defibrillator) in place (3) Cirrhosis (4) Cardiomyopathy due to hypertension, with heart failure (5) Emphysema lung (6) Right-sided heart failure (7) Cardiorenal syndrome (8) Hepatitis C Assessment/Plan paracentesis in am after INR is lower diuretics check electrolytes Pt goes back and forth between [facility] and [facility]. Suggest end of life care. Subjective ROS Limited/Unobtainable: No Constitutional: Reports: no symptoms HEENT: Repors: no symptoms Respiratory: Reports: no symptoms Allergies: Coded Allergies: HYDROMORPHONE (Verified Allergy, Unknown, 12/28/10) Objective Last 24 Hour Vital Signs Date Time Temp Pulse Resp B/P (MAP) Pulse Ox O2 Delivery O2 Flow Rate FiO2 06/02/18 12:00 97.7 69 19 102/68 (79) 98 06/02/18 10:48 85 109/71 06/02/18 09:09 70 06/02/18 09:00 109/71 06/02/18 09:00 Room Air Room Air 06/02/18 08:00 98.4 70 18 106/71 (83) 99 06/02/18 04:00 98.1 72 18 130/79 (96) 97 06/02/18 00:00 98.0 72 16 124/61 (82) 98 06/01/18 21:00 Room Air Room Air 06/01/18 21:00 60 111/76 06/01/18 20:00 98.2 60 18 111/76 (88) 99 06/01/18 19:33 79 16 Room Air 21 06/01/18 15:43 98.4 79 20 107/69 (82) 100 Intake and Output 06/01/18 06/02/18 19:00 07:00 Intake Total 370 ml Output Total 950 ml 600 ml Balance -580 ml -600 ml Intake Oral 370 ml Output Urine Total 950 ml 600 ml General Appearance: cachetic HEENT: normocephalic, atraumatic Respiratory/Chest: chest wall non-tender, lungs clear Cardiovascular: normal peripheral pulses, normal rate Abdomen: normal bowel sounds, soft, non tender Genitourinary: normal external genitalia Extremities: no clubbing Skin: no lesions Neurologic/Psychiatric: normal mood/affect Musculoskeletal: normal muscle bulk Microbiology Date/Time Source Procedure Growth Status 12/15/18 14:07 Nasal Nares MRSA Culture - Final NO METHICILLIN RESISTANT STAPH AUREUS... Complete 05/30/18 14:07 Rectum VRE Culture - Final NO VANCOMYCIN RESISTANT ENTEROCOCCUS ... Complete 05/30/18 14:07 Rectum - Final NO CARBAPENEM-RESISTANT ENTEROBACTERI... Complete Laboratory Tests 06/01/18 18:00: Prothrombin Time 20.7H, Prothromb Time International Ratio 2.0H, Activated Partial Thromboplast Time 37H, Troponin I 0.046 06/02/18 05:30: White Blood Count 5.3, Red Blood Count 3.86L, Hemoglobin 9.9L, Hematocrit 32.6L , Mean Corpuscular Volume 84, Mean Corpuscular Hemoglobin 25.7L, Mean Corpuscular Hemoglobin Concent 30.5L, Red Cell Distribution Width 19.8H, Platelet Count 149L, Mean Platelet Volume 6.3L, Neutrophils (%) (Auto) 69.3, Lymphocytes (%) (Auto) 14.7L, Monocytes (%) (Auto) 11.3H, Eosinophils (%) (Auto ) 3.7H, Basophils (%) (Auto) 1.0, Sodium Level 137, Potassium Level 3.8, Chloride Level 99, Carbon Dioxide Level 28, Anion Gap 10, Blood Urea Nitrogen 43H, Creatinine 1.8H, Estimat Glomerular Filtration Rate 46.2, Glucose Level 103 , Calcium Level 8.5, Phosphorus Level 3.6, Magnesium Level 1.7L Current Medications Medications (Trade) Dose Ordered Sig/Allyn Route PRN Reason Start Time Stop Time Status Last Admin Dose Admin Acetaminophen (Tylenol) 650 mg Q4H PRN ORAL Mild Pain/Temp > 100.5 06/01/18 20:45 06/29/18 20:44 Albuterol/ Ipratropium (Albuterol/ Ipratropium) 3 ml Q4H PRN HHN Shortness of Breath 06/01/18 20:45 06/04/18 20:44 Allopurinol (Allopurinol) 300 mg DAILY ORAL 06/02/18 09:00 07/01/18 08:59 06/02/18 09:09 Carvedilol (Coreg) 3.125 mg EVERY 12 HOURS ORAL 06/01/18 21:00 07/01/18 20:59 06/02/18 10:48 Chlorhexidine Gluconate (Kalani-Hex 2%) 1 applic DAILY@2000 TOPIC 06/02/18 20:00 06/30/18 19:59 Dextrose (Dextrose 50%) 25 ml Q30M PRN IV Hypoglycemia 06/01/18 20:45 06/29/18 15:14 Dextrose (Dextrose 50%) 50 ml Q30MIN PRN IV Hypoglycemia 06/01/18 20:30 06/29/18 15:14 Digoxin (Lanoxin) 0.125 mg DAILY ORAL 06/02/18 09:00 07/01/18 08:59 06/02/18 09:09 Docusate Sodium (Colace) 100 mg THREE TIMES A DAY ORAL 06/02/18 09:00 06/30/18 17:59 06/02/18 09:08 Furosemide (Lasix) 40 mg EVERY 12 HOURS IV 06/01/18 21:00 06/29/18 21:59 06/02/18 09:09 Iron Sucrose 100 mg/Sodium Chloride 55 ml @ 200 mls/hr BEDTIME IV 06/01/18 21:00 06/05/18 21:17 06/01/18 20:57 Isosorbide Mononitrate (Imdur) 30 mg DAILY ORAL 06/02/18 09:00 07/01/18 08:59 Levothyroxine Sodium (Synthroid) 50 mcg DAILY IV 06/02/18 09:00 07/01/18 12:29 06/02/18 09:27 Metoclopramide HCl (Reglan) 10 mg Q8H PRN IVP Nausea & Vomiting 06/01/18 20:45 06/30/18 20:44 Ondansetron HCl (Zofran) 4 mg Q6H PRN IVP Nausea & Vomiting 06/01/18 20:45 06/29/18 20:44 Oxycodone HCl (Roxicodone) 10 mg Q4H PRN ORAL Severe Pain (Pain Scale 7-10) 06/01/18 22:30 06/08/18 22:29 06/02/18 09:07 Polyethylene Glycol (Miralax) 17 gm DAILYPRN PRN ORAL Constipation 06/01/18 20:45 07/01/18 20:44 Rivaroxaban (Xarelto) 20 mg QPM ORAL 06/02/18 16:30 07/02/18 16:29 Temazepam (Restoril) 15 mg HSPRN PRN ORAL Insomnia 06/01/18 20:45 06/08/18 20:44 Andrzej Chavarria MD Jun 02, 2018 12:54
--- NOTE | 2018-06-02 13:42 | General Progress Note ---
Assessment/Plan Problem List: (1) HTN (hypertension) ICD Codes: I10 - Essential (primary) hypertension SNOMED: 92004009 (2) CHF (congestive heart failure) ICD Codes: I50.9 - Heart failure, unspecified SNOMED: 64068703 (3) Malnutrition ICD Codes: E46 - Unspecified protein-calorie malnutrition SNOMED: 98192396 (4) Chronic pain ICD Codes: G89.29 - Other chronic pain SNOMED: 14683113 (5) Acute renal failure ICD Codes: N17.9 - Acute kidney failure, unspecified SNOMED: 41145626 (6) Ascites ICD Codes: R18.8 - Ascites SNOMED: 373765226 (7) Cirrhosis ICD Codes: K74.60 - Unspecified cirrhosis of liver SNOMED: 49314843 (8) Hepatitis C ICD Codes: B19.20 - Hepatitis C SNOMED: 52569412 (9) Anemia ICD Codes: D64.9 - Anemia, unspecified SNOMED: 575917043 Status: unchanged Assessment/Plan o2 pulm tx pain control diurese cbc bmp am pending pericentesis Subjective Constitutional: Reports: weakness Respiratory: Reports: shortness of breath Allergies: Coded Allergies: HYDROMORPHONE (Verified Allergy, Unknown, 12/28/10) All Systems: reviewed and negative except above Subjective c/o abd pain swelling Objective Last 24 Hour Vital Signs Date Time Temp Pulse Resp B/P (MAP) Pulse Ox O2 Delivery O2 Flow Rate FiO2 06/02/18 12:00 97.7 69 19 102/68 (79) 98 06/02/18 10:48 85 109/71 06/02/18 09:09 70 06/02/18 09:00 109/71 06/02/18 09:00 Room Air Room Air 06/02/18 08:00 98.4 70 18 106/71 (83) 99 06/02/18 04:00 98.1 72 18 130/79 (96) 97 06/02/18 00:00 98.0 72 16 124/61 (82) 98 06/01/18 21:00 Room Air Room Air 06/01/18 21:00 60 111/76 06/01/18 20:00 98.2 60 18 111/76 (88) 99 06/01/18 19:33 79 16 Room Air 21 06/01/18 15:43 98.4 79 20 107/69 (82) 100 Intake and Output 06/01/18 06/02/18 19:00 07:00 Intake Total 370 ml Output Total 950 ml 600 ml Balance -580 ml -600 ml Intake Oral 370 ml Output Urine Total 950 ml 600 ml Laboratory Tests 06/01/18 18:00: Prothrombin Time 20.7H, Prothromb Time International Ratio 2.0H, Activated Partial Thromboplast Time 37H, Troponin I 0.046 06/02/18 05:30: White Blood Count 5.3, Red Blood Count 3.86L, Hemoglobin 9.9L, Hematocrit 32.6L , Mean Corpuscular Volume 84, Mean Corpuscular Hemoglobin 25.7L, Mean Corpuscular Hemoglobin Concent 30.5L, Red Cell Distribution Width 19.8H, Platelet Count 149L, Mean Platelet Volume 6.3L, Neutrophils (%) (Auto) 69.3, Lymphocytes (%) (Auto) 14.7L, Monocytes (%) (Auto) 11.3H, Eosinophils (%) (Auto ) 3.7H, Basophils (%) (Auto) 1.0, Sodium Level 137, Potassium Level 3.8, Chloride Level 99, Carbon Dioxide Level 28, Anion Gap 10, Blood Urea Nitrogen 43H, Creatinine 1.8H, Estimat Glomerular Filtration Rate 46.2, Glucose Level 103 , Calcium Level 8.5, Phosphorus Level 3.6, Magnesium Level 1.7L Height (Feet): 5 Height (Inches): 9.00 Weight (Pounds): 162 General Appearance: lethargic EENT: normal ENT inspection Neck: normal alignment Cardiovascular: normal peripheral pulses, normal rate, regular rhythm Respiratory/Chest: chest wall non-tender, decreased breath sounds Abdomen: normal bowel sounds, soft, distended Extremities: normal inspection Edema: no edema noted Arm (L), no edema noted Arm (R), no edema noted Leg (L), no edema noted Leg (R), no edema noted Pedal (L), no edema noted Pedal (R), no edema noted Generalized Neurologic: responsive, motor weakness Shahid Cherry DO Jun 02, 2018 13:42
--- NOTE | 2018-06-02 14:33 | Cardiology Report ---
APPROVED REPORT EXAM: Two-dimensional and M-mode echocardiogram with Doppler and color Doppler. INDICATION LV FUNCTION M-Mode DIMENSIONS IVSd0.9 (0.7-1.1cm)Left Atrium (MM)5.8 (1.6-4.0cm) LVDd6.7 (3.5-5.6cm)Aortic Root2.8 (2.0-3.7cm) PWd1.1 (0.7-1.1cm)Aortic Cusp Exc.1.9 (1.5-2.0cm) IVSs0.9 cm LVDs6.2 (2.5-4.0cm) PWs1.2 cm Global left ventricular hypokinesis.[place]wyn-septal akinesis. Mild left ventricular enlargement. Left ventricular ejection fraction estimated to be 15 %. No evidence of left ventricular hypertrophy. l pericardial effusion. Mild Pleural effusion . Severe left atrial enlargement. Mild right atrial enlargment . Mild right ventricular enlargement . focal aortic valve sclerosis with adequate cusp excursion/ aortic valve thinin . Thickened mitral valve leaflets with normal excursion. Mitral annulus and aortic root calcification. Pulmonic valve not well visualized. Normal tricuspid valve structure. IVC dilated at 2.7cm without physiologic collapse suggestive of increased RA pressure. Pacemaker wire present in the right side chambers. A color flow and spectral Doppler study was performed and revealed: No aortic regurgitation. Moderate mitral regurgitation. Mitral inflow indicates restrictive pattern, implying severely elevated left atrial pressure (Grade III ). Moderate tricuspid regurgitation. Tricuspid systolic velocities suggests peak right ventricular systolic pressure of 68 mmHg,consistent with severe pulmonary hypertension. Trace pulmonic regurgiation .
--- NOTE | 2018-06-02 15:13 | GI Progress Note ---
Assessment/Plan Problems: (1) Cirrhosis ICD Codes: K74.60 - Unspecified cirrhosis of liver SNOMED: 59941227 (2) Right-sided heart failure ICD Codes: I50.9 - Right-sided heart failure SNOMED: 821859618 (3) Ascites ICD Codes: R18.8 - Ascites SNOMED: 950218341 (4) Anemia ICD Codes: D64.9 - Anemia, unspecified SNOMED: 142014437 Status: stable Status Narrative Discussed with Dr. Ryan Assessment/Plan Assessment - Hepatitis C, eradicated per pt - Possible ascites, but volume likely small - CM - Azotemia - cardiac ascites Recommendations -Paracentesis canceled today due to elevated INR, will administer a dose of vitamin K and repeat procedure for tomorrow - Check AFP - Diuretics - Na restriction - fu cardiology recs The patient was seen and examined at bedside and all new and available data was reviewed in the patients chart. I agree with the above findings, impression and plan. (Patient seen earlier today. Signature stamp does not reflect patient encounter time.). - Beto Ryan MD Subjective Subjective abdominal discomfort and distention Objective Last 24 Hour Vital Signs Date Time Temp Pulse Resp B/P (MAP) Pulse Ox O2 Delivery O2 Flow Rate FiO2 06/02/18 12:00 97.7 69 19 102/68 (79) 98 06/02/18 10:48 85 109/71 06/02/18 09:09 70 06/02/18 09:00 109/71 06/02/18 09:00 Room Air Room Air 06/02/18 08:00 98.4 70 18 106/71 (83) 99 06/02/18 04:00 98.1 72 18 130/79 (96) 97 06/02/18 00:00 98.0 72 16 124/61 (82) 98 06/01/18 21:00 Room Air Room Air 06/01/18 21:00 60 111/76 06/01/18 20:00 98.2 60 18 111/76 (88) 99 06/01/18 19:33 79 16 Room Air 21 06/01/18 15:43 98.4 79 20 107/69 (82) 100 Intake and Output 06/01/18 06/02/18 19:00 07:00 Intake Total 370 ml Output Total 950 ml 600 ml Balance -580 ml -600 ml Intake Oral 370 ml Output Urine Total 950 ml 600 ml Laboratory Tests Test 06/01/18 18:00 06/02/18 05:30 Prothrombin Time 20.7 SEC (9.30-11.50) H Prothromb Time International Ratio 2.0 (0.9-1.1) H Activated Partial Thromboplast Time 37 SEC (23-33) H Troponin I 0.046 ng/mL (0.000-0.056) White Blood Count 5.3 K/UL (4.8-10.8) Red Blood Count 3.86 M/UL (4.70-6.10) L Hemoglobin 9.9 G/DL (14.2-18.0) L Hematocrit 32.6 % (42.0-52.0) L Mean Corpuscular Volume 84 FL (80-99) Mean Corpuscular Hemoglobin 25.7 PG (27.0-31.0) L Mean Corpuscular Hemoglobin Concent 30.5 G/DL (32.0-36.0) L Red Cell Distribution Width 19.8 % (11.6-14.8) H Platelet Count 149 K/UL (150-450) L Mean Platelet Volume 6.3 FL (6.5-10.1) L Neutrophils (%) (Auto) 69.3 % (45.0-75.0) Lymphocytes (%) (Auto) 14.7 % (20.0-45.0) L Monocytes (%) (Auto) 11.3 % (1.0-10.0) H Eosinophils (%) (Auto) 3.7 % (0.0-3.0) H Basophils (%) (Auto) 1.0 % (0.0-2.0) Sodium Level 137 MMOL/L (136-145) Potassium Level 3.8 MMOL/L (3.5-5.1) Chloride Level 99 MMOL/L (98-107) Carbon Dioxide Level 28 MMOL/L (21-32) Anion Gap 10 mmol/L (5-15) Blood Urea Nitrogen 43 mg/dL (7-18) H Creatinine 1.8 MG/DL (0.55-1.30) H Estimat Glomerular Filtration Rate 46.2 mL/min (>60) Glucose Level 103 MG/DL (74-106) Calcium Level 8.5 MG/DL (8.5-10.1) Phosphorus Level 3.6 MG/DL (2.5-4.9) Magnesium Level 1.7 MG/DL (1.8-2.4) L Height (Feet): 5 Height (Inches): 9.00 Weight (Pounds): 162 General Appearance: WD/WN, no apparent distress, alert Cardiovascular: normal rate Respiratory/Chest: normal breath sounds, no respiratory distress Abdominal Exam: normal bowel sounds, non tender, soft Extremities: normal range of motion, non-tender Kiarra Bird NP Jun 02, 2018 15:13
--- NOTE | 2018-06-02 15:13 | Consultation ---
Consult Note Consult Note HEMATOLOGY-ONCOLOGY CONSULTATION REFERRING PHYSICIAN: Shahid Cherry REASON FOR CONSULT: Elevated INR, anemia, thrombocytopenia DATE OF CONSULT: 06/02/2018 HISTORY OF PRESENT ILLNESS: This is a 63-year-old male, who lives at home with history of cirrhosis, hepatitis C, and recurrent ascites. Pt states abdomen started swelling, came to [facility], diagnosed with the above, admitted to telemetry for further care. Currently, slight general abdominal pain, no complaint. Hematology service consulted for the evaluation of elevated INR, anemia, and thrombocytopenia. Labs and imaging have been reviewed. PAST MEDICAL HISTORY: Includes cirrhosis of liver, hep C, ascites, CHF, chronic pain, renal failure, hypertension. PAST SURGICAL HISTORY: Multiple paracenteses. SOCIAL HISTORY: No smoking. No alcohol. No intravenous drug abuse. FAMILY HISTORY: Noncontributory. REVIEW OF SYSTEMS: No chest pain. Slight short of breath. No nausea, vomiting , or diarrhea. PHYSICAL EXAMINATION: GENERAL: Slightly anxious in bed and oriented x3, no acute distress. VITAL SIGNS: Have been reviewed CARDIOVASCULAR: No murmur. LUNGS: Distant clear. ABDOMEN: Bowel sounds positive. Distant, soft, slightly distended. No guarding. No rigidity. No rebound. EXTREMITIES: Show no cyanosis, clubbing, or edema. NEUROLOGIC: The patient moves all extremities, slightly weak. MEDICATIONS: chlorhexidine, furosemide, Tylenol, temazepam, Zofran, and albuterol. LABS: wbc 5.3 hgb 9.9 plt 149k INR 2.0 IMAGING: US abd --> Hepatic surface micronodularity, consistent with cirrhosis. ASSESSMENT AND RECOMMENDATIONS # Elevated INR. Currently at 2.0 potentially related to hep C --> given vit K 10mg iv x 1 can also give 10mg po if iv unavailable --> trend inr as needed, replete with ffp as needed as well --> 2 units of ffp have been ordered --> hep C has been erradicated --> para planned for tomorrow --> hold off on xarelto # Thrombocytopenia - secondary to cirrhosis and Hep C. --> US abd shows cirrhosis --> Peripheral smear ordered to evaluate for blasts/schistocytes --> abx and other meds have been reviewed --> ok for ppx if plt >50k w/ wither heparin or lovenox -->Transfuse if Plt < 20k and fever, or if Plt < 10k without fever # Anemia of chronic disease (or of iron deficiency) due to underlying chronic medical issues, multifactorial --> Anemia w/u has been ordered --> No evidence of hemolysis is noted, peripheral smear has been reviewed. --> Hgb goal >7. Transfuse prn. --> Epogen or iron at this time is not particularly indicated --> bone marrow biopsy is not indicated given the other more likely causes # Ascites. Pain control, possible paracentesis. # Cirrhosis of liver. Further evaluation by Dr. Ren. # Hepatitis C. # Hyperkalemia. GREATLY APPRECIATE CONSULTATION. Brandon Joyce MD Jun 02, 2018 15:13
[2018-06-02 16:00] VITALS: BP 101/58
[2018-06-02] MEDS: Xarelto 10mg tab ORAL SCH (16:30)
[2018-06-02 20:00] VITALS: BP 127/66
[2018-06-02] MEDS: Dyna-Hex 2% Top Sol 2oz TOPIC SCH (20:21)
[2018-06-03] VITALS: BP 125/69
[2018-06-03] MEDS: oxyCODONE 5mg IR tab ORAL PRN ×3 (02:57→21:08)
[2018-06-03 04:00] VITALS: BP 121/60
[2018-06-03 07:12] LABS: BASOPHILS % (AUTO) 0.8 % (0.0-2.0); EOSINOPHILS % (AUTO) 3.2 % (0.0-3.0); HEMATOCRIT 30.5 % (42.0-52.0); HEMOGLOBIN 9.3 G/DL (14.2-18.0); MEAN CORPUSCULAR VOLUME 87 FL (80-99); PLATELET COUNT 133 K/UL (150-450); RED BLOOD COUNT 3.51 M/UL (4.70-6.10); RED CELL DISTRIBUTION WIDTH 19.7 % (11.6-14.8); WHITE BLOOD COUNT 4.6 K/UL (4.8-10.8)
[2018-06-03 07:36] LABS: ALANINE AMINOTRANSFERASE 16 U/L (12-78); ALBUMIN/GLOBULIN RATIO 0.6 (1.0-2.7); ALKALINE PHOSPHATASE 118 U/L (46-116); ANION GAP 4 mmol/L (5-15); ASPARTATE AMINO TRANSFERASE 17 U/L (15-37); BILIRUBIN,TOTAL 1.3 MG/DL (0.2-1.0); BLOOD UREA NITROGEN 36 mg/dL (7-18); CALCIUM 8.8 MG/DL (8.5-10.1); CARBON DIOXIDE 34 MMOL/L (21-32); CHLORIDE 98 MMOL/L (98-107); CREATININE 1.6 MG/DL (0.55-1.30); PHOSPHORUS 3.3 MG/DL (2.5-4.9); POTASSIUM 3.4 MMOL/L (3.5-5.1); SODIUM 136 MMOL/L (136-145)
[2018-06-03 07:38] LABS: BILIRUBIN,DIRECT 0.8 MG/DL (0.0-0.3)
[2018-06-03 07:39] LABS: INR 1.5 (0.9-1.1)
[2018-06-03 08:00] VITALS: BP 124/63
--- NOTE | 2018-06-03 08:53 | General Progress Note ---
Assessment/Plan Assessment/Plan (1) Lumbar degenerative disc disease (2) Lumbar spondylosis (3) Lumbar radiculopathy (4) Liver Cirrhosis (5) Abdominal pain Pt will be continued on Oxycodone. Pt was d/w Dr. Carson and he concurred. Subjective Date patient seen: Jun 03, 2018 Time patient seen: 07:15 - am Allergies: Coded Allergies: HYDROMORPHONE (Verified Allergy, Unknown, 12/28/10) Subjective Constitutional: Reports: weakness, Denies: chills, diaphoresis, fever, malaise , no symptoms, other HEENT: Denies: blurred vision, double vision, ear discharge, ear pain, eye pain , mouth pain, mouth swelling, no symptoms, nose congestion, nose pain, other, tearing, throat pain, throat swelling Cardiovascular: Denies: irregular heart rate, lightheadedness, no symptoms, other, palpitations, syncope Respiratory: Denies: SOB at rest, SOB with excertion, cough, no symptoms, orthopnea, other, shortness of breath, sputum, stridor, wheezing Gastrointestinal/Abdominal: Reports: abdominal pain, Denies: abdomen distended , black stools, blood in stool, constipated, diarrhea, difficulty swallowing, nausea, no symptoms, other, poor appetite, poor fluid intake, rectal bleeding, tarry stools, vomiting Genitourinary: Denies: burning, discharge, flank pain, frequency, hematuria, incontinence, no symptoms, other, pain, urgency Neurologic/Psychiatric: Reports: weakness, Denies: anxiety, depressed, emotional problems, headache, no symptoms, numbness, other, paresthesia, pre- existing deficit, seizure, tingling, tremors Endocrine: Denies: excessive sweating, flushing, increased hunger, increased thirst, increased urine, intolerance to cold, intolerance to heat, no symptoms, other, unexplained weight gain, unexplained weight loss Hematologic/Lymphatic: Denies: anemia, easy bleeding, easy bruising, no symptoms, other Subjective Patient is doing well and tolerating the pain on the Oxycodone 3 doses in the last 24 hrs. Objective Last 24 Hour Vital Signs Date Time Temp Pulse Resp B/P (MAP) Pulse Ox O2 Delivery O2 Flow Rate FiO2 06/03/18 04:00 98.2 78 18 121/60 (80) 98 06/03/18 00:00 97.5 71 18 125/69 (87) 98 06/02/18 21:00 Room Air Room Air 06/02/18 20:23 71 127/66 06/02/18 20:00 97.6 71 18 127/66 (86) 99 06/02/18 16:00 97.5 68 19 101/58 (72) 98 06/02/18 12:00 97.7 69 19 102/68 (79) 98 06/02/18 10:48 85 109/71 06/02/18 09:09 70 06/02/18 09:00 109/71 06/02/18 09:00 Room Air Room Air Intake and Output 06/02/18 06/03/18 19:00 07:00 Intake Total 622 ml Output Total 1300 ml 1100 ml Balance -678 ml -1100 ml Intake Oral 400 ml IV Total 222 ml Output Urine Total 1300 ml 1100 ml Laboratory Tests 06/03/18 05:40: White Blood Count 4.6L, Red Blood Count 3.51L, Hemoglobin 9.3L, Hematocrit 30.5L , Mean Corpuscular Volume 87, Mean Corpuscular Hemoglobin 26.4L, Mean Corpuscular Hemoglobin Concent 30.4L, Red Cell Distribution Width 19.7H, Platelet Count 133L, Mean Platelet Volume 6.9, Neutrophils (%) (Auto) 69.0, Lymphocytes (%) (Auto) 17.0L, Monocytes (%) (Auto) 10.0, Eosinophils (%) (Auto) 3.2H, Basophils (%) (Auto) 0.8, Prothrombin Time 15.2H, Prothromb Time International Ratio 1.5H, Activated Partial Thromboplast Time 32, Sodium Level 136, Potassium Level 3.4L, Chloride Level 98, Carbon Dioxide Level 34H, Anion Gap 4L, Blood Urea Nitrogen 36H, Creatinine 1.6H, Estimat Glomerular Filtration Rate 52.8, Glucose Level 97, Calcium Level 8.8, Phosphorus Level 3.3, Magnesium Level 1.5L, Total Bilirubin 1.3H, Direct Bilirubin 0.8H, Aspartate Amino Transf (AST/SGOT) 17, Alanine Aminotransferase (ALT/SGPT) 16, Alkaline Phosphatase 118H , Total Protein 7.7, Albumin 3.0L, Globulin 4.7, Albumin/Globulin Ratio 0.6L Height (Feet): 5 Height (Inches): 9.00 Weight (Pounds): 164 Objective General Appearance: no apparent distress, alert EENT: normal ENT inspection, TMs normal Neck: normal alignment, supple Cardiovascular: normal rate, regular rhythm Respiratory/Chest: lungs clear, normal breath sounds Abdomen: tender, distended Extremities: non-tender Edema: edema noted in b/l LE Neurologic: alert, oriented x 3 Skin: warm/dry Luc Sanchez Jun 03, 2018 08:53
--- NOTE | 2018-06-03 10:08 | Pre-Procedure Note/Attestation ---
Pre-Procedure Note/Attestation Complete Prior to Procedure Planned Procedure: not applicable Procedure Narrative: paracentesis Indications for Procedure Pre-Operative Diagnosis: ascites Attestation I attest that I discussed the nature of the procedure; its benefits; risks and complications; and alternatives (and the risks and benefits of such alternatives ), prior to the procedure, with the patient (or the patient's legal instruments sales representative). I attest that, if there was a reasonable possibility of needing a blood transfusion, the patient (or the patient's legal instruments sales representative) was given the [facility] standardized written summary, pursuant to the [place] Blood Safety Act ([place] Health and Safety Code # 1645, as amended). I attest that I re-evaluated the patient just prior to the surgery and that there has been no change in the patient's H&P, except as documented below: Lamont Wade MD Jun 03, 2018 10:08
[2018-06-03] MEDS: Digoxin 0.125mg tab ORAL SCH (10:50)
[2018-06-03] MEDS: Docusate 100mg cap ORAL SCH ×3 (10:51→17:18)
[2018-06-03] MEDS: Imdur 30mg tab ORAL SCH (10:51)
--- NOTE | 2018-06-03 11:12 | Brief Operative Note ---
Immediate Post Operative Note Operative Note Chief Complaint: distention Pre-op Diagnosis: ascites Procedure: paracentesis Post-op Diagnosis: same Findings: consistent w/pre-op dx studies Surgeon: Josette Hernandez Anesthesia: local Specimen: yes - clear yellow fluid sent to lab Complications: none Condition: stable Fluids: none Implant(s) used?: No Lamont Hernandez MD Jun 03, 2018 11:12
--- NOTE | 2018-06-03 11:31 | Diagnostic Imaging Report ---
Indications: Ascites Technique: Ultrasound used to localize optimal puncture site. Sterile prepping and draping right lower quadrant. Local anesthesia with 1% lidocaine. Under real-time ultrasound guidance, puncture peritoneal space using paracentesis needle. Stylet removed. Catheter placed to vacuum bottle suction. Total 1. liters of clear yellow fluid aspirated. A specimen was sent to the lab Patient tolerated procedure well, without immediate complication. Findings: Followup sonography demonstrates minimal residual peritoneal fluid. Impression: Successful ultrasound-guided paracentesis, yielding 1.5 liters of fluid
[2018-06-03 12:00] VITALS: BP 131/86
--- NOTE | 2018-06-03 12:09 | GI Progress Note ---
Assessment/Plan Problems: (1) Cirrhosis ICD Codes: K74.60 - Unspecified cirrhosis of liver SNOMED: 94769438 (2) Right-sided heart failure ICD Codes: I50.9 - Right-sided heart failure SNOMED: 044394108 (3) Ascites ICD Codes: R18.8 - Ascites SNOMED: 197628675 (4) Anemia ICD Codes: D64.9 - Anemia, unspecified SNOMED: 903292541 Status: stable, progressing Status Narrative Discussed with Dr. Ryan. Assessment/Plan Assessment - Hepatitis C, eradicated per pt - Possible ascites, but volume likely small - CM - Azotemia - cardiac ascites - s/p paracentesis yielding 1.5L - AFP normal Recommendations - advance diet - Diuretics - Na restriction - fu cardiology recs - dc planning The patient was seen and examined at bedside and all new and available data was reviewed in the patients chart. I agree with the above findings, impression and plan. (Patient seen earlier today. Signature stamp does not reflect patient encounter time.). - Beto Ryan MD Subjective Subjective abdominal discomfort and distention Objective Last 24 Hour Vital Signs Date Time Temp Pulse Resp B/P (MAP) Pulse Ox O2 Delivery O2 Flow Rate FiO2 06/03/18 10:51 124/63 06/03/18 10:50 80 06/03/18 10:50 80 124/63 06/03/18 09:35 75 16 Room Air 21 06/03/18 09:00 Room Air Room Air 06/03/18 08:00 98.0 80 19 124/63 (83) 99 06/03/18 04:00 98.2 78 18 121/60 (80) 98 06/03/18 00:00 97.5 71 18 125/69 (87) 98 06/02/18 21:00 Room Air Room Air 06/02/18 20:23 71 127/66 06/02/18 20:00 97.6 71 18 127/66 (86) 99 06/02/18 16:00 97.5 68 19 101/58 (72) 98 Intake and Output 06/02/18 06/03/18 19:00 07:00 Intake Total 622 ml Output Total 1300 ml 1100 ml Balance -678 ml -1100 ml Intake Oral 400 ml IV Total 222 ml Output Urine Total 1300 ml 1100 ml Laboratory Tests Test 06/03/18 05:40 06/03/18 09:30 White Blood Count 4.6 K/UL (4.8-10.8) L Red Blood Count 3.51 M/UL (4.70-6.10) L Hemoglobin 9.3 G/DL (14.2-18.0) L Hematocrit 30.5 % (42.0-52.0) L Mean Corpuscular Volume 87 FL (80-99) Mean Corpuscular Hemoglobin 26.4 PG (27.0-31.0) L Mean Corpuscular Hemoglobin Concent 30.4 G/DL (32.0-36.0) L Red Cell Distribution Width 19.7 % (11.6-14.8) H Platelet Count 133 K/UL (150-450) L Mean Platelet Volume 6.9 FL (6.5-10.1) Neutrophils (%) (Auto) 69.0 % (45.0-75.0) Lymphocytes (%) (Auto) 17.0 % (20.0-45.0) L Monocytes (%) (Auto) 10.0 % (1.0-10.0) Eosinophils (%) (Auto) 3.2 % (0.0-3.0) H Basophils (%) (Auto) 0.8 % (0.0-2.0) Prothrombin Time 15.2 SEC (9.30-11.50) H Prothromb Time International Ratio 1.5 (0.9-1.1) H Activated Partial Thromboplast Time 32 SEC (23-33) Sodium Level 136 MMOL/L (136-145) Potassium Level 3.4 MMOL/L (3.5-5.1) L Chloride Level 98 MMOL/L (98-107) Carbon Dioxide Level 34 MMOL/L (21-32) H Anion Gap 4 mmol/L (5-15) L Blood Urea Nitrogen 36 mg/dL (7-18) H Creatinine 1.6 MG/DL (0.55-1.30) H Estimat Glomerular Filtration Rate 52.8 mL/min (>60) Glucose Level 97 MG/DL (74-106) Calcium Level 8.8 MG/DL (8.5-10.1) Phosphorus Level 3.3 MG/DL (2.5-4.9) Magnesium Level 1.5 MG/DL (1.8-2.4) L Total Bilirubin 1.3 MG/DL (0.2-1.0) H Direct Bilirubin 0.8 MG/DL (0.0-0.3) H Aspartate Amino Transf (AST/SGOT) 17 U/L (15-37) Alanine Aminotransferase (ALT/SGPT) 16 U/L (12-78) Alkaline Phosphatase 118 U/L (46-116) H Total Protein 7.7 G/DL (6.4-8.2) Albumin 3.0 G/DL (3.4-5.0) L Globulin 4.7 g/dL Albumin/Globulin Ratio 0.6 (1.0-2.7) L Body Fluid Source Paracenthesis Body Fluid Volume 9 mL Body Fluid Appearance Clear (Clear) Body Fluid RBC 727 /CUMM Body Fluid Total Nucleated Cells 122 /CUMM Body Fluid Polynuclear WBCs (%) Pending Body Fluid Mononuclear WBCs (%) Pending Body Fluid Mesothelial Cells (%) Pending Body Fluid Albumin Pending Height (Feet): 5 Height (Inches): 9.00 Weight (Pounds): 164 General Appearance: WD/WN, no apparent distress, alert Cardiovascular: normal rate Respiratory/Chest: normal breath sounds, no respiratory distress Abdominal Exam: normal bowel sounds, non tender, soft Extremities: normal range of motion, non-tender Kiarra Bird NP Jun 03, 2018 12:09
--- NOTE | 2018-06-03 13:51 | Pulmonology Progress Note ---
Assessment/Plan Problems: (1) Ascites (2) ICD (implantable cardioverter-defibrillator) in place (3) Cirrhosis (4) Cardiomyopathy due to hypertension, with heart failure (5) Emphysema lung (6) Right-sided heart failure (7) Cardiorenal syndrome (8) Hepatitis C Assessment/Plan removed 1/5 liters of ascitic fluid diuretics check electrolytes Pt goes back and forth between [facility] and [facility]. Suggest end of life care. Subjective ROS Limited/Unobtainable: No Allergies: Coded Allergies: HYDROMORPHONE (Verified Allergy, Unknown, 12/28/10) Objective Last 24 Hour Vital Signs Date Time Temp Pulse Resp B/P (MAP) Pulse Ox O2 Delivery O2 Flow Rate FiO2 06/03/18 12:00 97.8 79 19 131/86 (101) 95 06/03/18 10:51 124/63 06/03/18 10:50 80 06/03/18 10:50 80 124/63 06/03/18 09:35 75 16 Room Air 21 06/03/18 09:00 Room Air Room Air 06/03/18 08:00 98.0 80 19 124/63 (83) 99 06/03/18 04:00 98.2 78 18 121/60 (80) 98 06/03/18 00:00 97.5 71 18 125/69 (87) 98 06/02/18 21:00 Room Air Room Air 06/02/18 20:23 71 127/66 06/02/18 20:00 97.6 71 18 127/66 (86) 99 06/02/18 16:00 97.5 68 19 101/58 (72) 98 Intake and Output 06/02/18 06/03/18 19:00 07:00 Intake Total 622 ml Output Total 1300 ml 1100 ml Balance -678 ml -1100 ml Intake Oral 400 ml IV Total 222 ml Output Urine Total 1300 ml 1100 ml General Appearance: cachetic HEENT: normocephalic, atraumatic Respiratory/Chest: chest wall non-tender, lungs clear Cardiovascular: normal peripheral pulses, normal rate Abdomen: soft, non tender, no organomegaly Genitourinary: normal external genitalia Extremities: no clubbing Skin: no rash 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 Laboratory Tests 06/03/18 05:40: White Blood Count 4.6L, Red Blood Count 3.51L, Hemoglobin 9.3L, Hematocrit 30.5L , Mean Corpuscular Volume 87, Mean Corpuscular Hemoglobin 26.4L, Mean Corpuscular Hemoglobin Concent 30.4L, Red Cell Distribution Width 19.7H, Platelet Count 133L, Mean Platelet Volume 6.9, Neutrophils (%) (Auto) 69.0, Lymphocytes (%) (Auto) 17.0L, Monocytes (%) (Auto) 10.0, Eosinophils (%) (Auto) 3.2H, Basophils (%) (Auto) 0.8, Prothrombin Time 15.2H, Prothromb Time International Ratio 1.5H, Activated Partial Thromboplast Time 32, Sodium Level 136, Potassium Level 3.4L, Chloride Level 98, Carbon Dioxide Level 34H, Anion Gap 4L, Blood Urea Nitrogen 36H, Creatinine 1.6H, Estimat Glomerular Filtration Rate 52.8, Glucose Level 97, Calcium Level 8.8, Phosphorus Level 3.3, Magnesium Level 1.5L, Total Bilirubin 1.3H, Direct Bilirubin 0.8H, Aspartate Amino Transf (AST/SGOT) 17, Alanine Aminotransferase (ALT/SGPT) 16, Alkaline Phosphatase 118H , Total Protein 7.7, Albumin 3.0L, Globulin 4.7, Albumin/Globulin Ratio 0.6L 06/03/18 09:30: Body Fluid Source Paracenthesis, Body Fluid Volume 9, Body Fluid Appearance Clear, Body Fluid RBC 727, Body Fluid Total Nucleated Cells 122, Body Fluid Polynuclear WBCs (%) 4, Body Fluid Mononuclear WBCs (%) 92, Body Fluid Mesothelial Cells (%) 4, Body Fluid Albumin [Pending] Current Medications Medications (Trade) Dose Ordered Sig/Allyn Route PRN Reason Start Time Stop Time Status Last Admin Dose Admin Acetaminophen (Tylenol) 650 mg Q4H PRN ORAL Mild Pain/Temp > 100.5 06/01/18 20:45 06/29/18 20:44 Albuterol/ Ipratropium (Albuterol/ Ipratropium) 3 ml Q4H PRN HHN Shortness of Breath 06/01/18 20:45 06/04/18 20:44 Allopurinol (Allopurinol) 300 mg DAILY ORAL 06/02/18 09:00 07/01/18 08:59 06/03/18 10:50 Carvedilol (Coreg) 3.125 mg EVERY 12 HOURS ORAL 06/01/18 21:00 07/01/18 20:59 06/03/18 10:50 Chlorhexidine Gluconate (Kalani-Hex 2%) 1 applic DAILY@2000 TOPIC 06/02/18 20:00 06/30/18 19:59 06/02/18 20:21 Dextrose (Dextrose 50%) 25 ml Q30M PRN IV Hypoglycemia 06/01/18 20:45 06/29/18 15:14 Dextrose (Dextrose 50%) 50 ml Q30MIN PRN IV Hypoglycemia 06/01/18 20:30 06/29/18 15:14 Digoxin (Lanoxin) 0.125 mg DAILY ORAL 06/02/18 09:00 07/01/18 08:59 06/03/18 10:50 Docusate Sodium (Colace) 100 mg THREE TIMES A DAY ORAL 06/02/18 09:00 06/30/18 17:59 06/02/18 09:08 Furosemide (Lasix) 40 mg EVERY 12 HOURS IV 06/01/18 21:00 06/29/18 21:59 06/03/18 10:49 Iron Sucrose 100 mg/Sodium Chloride 55 ml @ 200 mls/hr BEDTIME IV 06/01/18 21:00 06/05/18 21:17 06/01/18 20:57 Isosorbide Mononitrate (Imdur) 30 mg DAILY ORAL 06/02/18 09:00 07/01/18 08:59 06/03/18 10:51 Levothyroxine Sodium (Synthroid) 50 mcg DAILY IV 06/02/18 09:00 07/01/18 12:29 06/03/18 10:50 Metoclopramide HCl (Reglan) 10 mg Q8H PRN IVP Nausea & Vomiting 06/01/18 20:45 06/30/18 20:44 Ondansetron HCl (Zofran) 4 mg Q6H PRN IVP Nausea & Vomiting 06/01/18 20:45 06/29/18 20:44 Oxycodone HCl (Roxicodone) 10 mg Q4H PRN ORAL Severe Pain (Pain Scale 7-10) 06/01/18 22:30 06/08/18 22:29 06/03/18 10:49 Polyethylene Glycol (Miralax) 17 gm DAILYPRN PRN ORAL Constipation 06/01/18 20:45 07/01/18 20:44 Rivaroxaban (Xarelto) 20 mg QPM ORAL 06/02/18 16:30 07/02/18 16:29 Temazepam (Restoril) 15 mg HSPRN PRN ORAL Insomnia 06/01/18 20:45 06/08/18 20:44 Andrzej Chavarria MD Jun 03, 2018 13:51
--- NOTE | 2018-06-03 14:20 | Cardiac Electrophysiology PN ---
Assessment/Plan Assessment/Plan 1. Exacerbation of congestive heart failure. Continue digoxin 0.125 mg daily, Coreg, Imdur and Lasix 40 IV b.i.d. 2. Paroxysmal atrial fibrillation, which is controlled, on digoxin and Coreg . The patient on anticoagulation with Xarelto. 3. Status post [place] biventricular defibrillator with normal function. 4. Hypothyroidism. 5. Hepatitis and cirrhosis, status post paracentesis 1.5 liters today. Further evaluation by Dr. Ryan. 6. Renal failure. BUN of 52 and creatinine of 2. Further evaluation by Dr. Rojas. EDMAR RN Subjective Subjective On NMB. Had 1.5 liter of Paracentesis today. Feeling better Objective Last 24 Hour Vital Signs Date Time Temp Pulse Resp B/P (MAP) Pulse Ox O2 Delivery O2 Flow Rate FiO2 06/03/18 12:00 97.8 79 19 131/86 (101) 95 06/03/18 10:51 124/63 06/03/18 10:50 80 06/03/18 10:50 80 124/63 06/03/18 09:35 75 16 Room Air 21 06/03/18 09:00 Room Air Room Air 06/03/18 08:00 98.0 80 19 124/63 (83) 99 06/03/18 04:00 98.2 78 18 121/60 (80) 98 06/03/18 00:00 97.5 71 18 125/69 (87) 98 06/02/18 21:00 Room Air Room Air 06/02/18 20:23 71 127/66 06/02/18 20:00 97.6 71 18 127/66 (86) 99 06/02/18 16:00 97.5 68 19 101/58 (72) 98 Intake and Output 06/02/18 06/03/18 19:00 07:00 Intake Total 622 ml Output Total 1300 ml 1100 ml Balance -678 ml -1100 ml Intake Oral 400 ml IV Total 222 ml Output Urine Total 1300 ml 1100 ml Laboratory Tests Test 06/03/18 05:40 06/03/18 09:30 White Blood Count 4.6 K/UL (4.8-10.8) L Red Blood Count 3.51 M/UL (4.70-6.10) L Hemoglobin 9.3 G/DL (14.2-18.0) L Hematocrit 30.5 % (42.0-52.0) L Mean Corpuscular Volume 87 FL (80-99) Mean Corpuscular Hemoglobin 26.4 PG (27.0-31.0) L Mean Corpuscular Hemoglobin Concent 30.4 G/DL (32.0-36.0) L Red Cell Distribution Width 19.7 % (11.6-14.8) H Platelet Count 133 K/UL (150-450) L Mean Platelet Volume 6.9 FL (6.5-10.1) Neutrophils (%) (Auto) 69.0 % (45.0-75.0) Lymphocytes (%) (Auto) 17.0 % (20.0-45.0) L Monocytes (%) (Auto) 10.0 % (1.0-10.0) Eosinophils (%) (Auto) 3.2 % (0.0-3.0) H Basophils (%) (Auto) 0.8 % (0.0-2.0) Prothrombin Time 15.2 SEC (9.30-11.50) H Prothromb Time International Ratio 1.5 (0.9-1.1) H Activated Partial Thromboplast Time 32 SEC (23-33) Sodium Level 136 MMOL/L (136-145) Potassium Level 3.4 MMOL/L (3.5-5.1) L Chloride Level 98 MMOL/L (98-107) Carbon Dioxide Level 34 MMOL/L (21-32) H Anion Gap 4 mmol/L (5-15) L Blood Urea Nitrogen 36 mg/dL (7-18) H Creatinine 1.6 MG/DL (0.55-1.30) H Estimat Glomerular Filtration Rate 52.8 mL/min (>60) Glucose Level 97 MG/DL (74-106) Calcium Level 8.8 MG/DL (8.5-10.1) Phosphorus Level 3.3 MG/DL (2.5-4.9) Magnesium Level 1.5 MG/DL (1.8-2.4) L Total Bilirubin 1.3 MG/DL (0.2-1.0) H Direct Bilirubin 0.8 MG/DL (0.0-0.3) H Aspartate Amino Transf (AST/SGOT) 17 U/L (15-37) Alanine Aminotransferase (ALT/SGPT) 16 U/L (12-78) Alkaline Phosphatase 118 U/L (46-116) H Total Protein 7.7 G/DL (6.4-8.2) Albumin 3.0 G/DL (3.4-5.0) L Globulin 4.7 g/dL Albumin/Globulin Ratio 0.6 (1.0-2.7) L Body Fluid Source Paracenthesis Body Fluid Volume 9 mL Body Fluid Appearance Clear (Clear) Body Fluid RBC 727 /CUMM Body Fluid Total Nucleated Cells 122 /CUMM Body Fluid Polynuclear WBCs (%) 4 % Body Fluid Mononuclear WBCs (%) 92 % Body Fluid Mesothelial Cells (%) 4 % Body Fluid Albumin Pending Objective HEAD AND NECK: Moderate JVD. LUNGS: Decreased breath sounds. CARDIOVASCULAR: Regular S1 and S2 with S3 gallop with soft systolic murmur. Defibrillator in left subclavian. ABDOMEN: Soft with ascites. EXTREMITIES: 1+ pitting edema. Rc Zhang MD Jun 03, 2018 14:20
--- NOTE | 2018-06-03 14:35 | General Progress Note ---
Assessment/Plan Problem List: (1) HTN (hypertension) ICD Codes: I10 - Essential (primary) hypertension SNOMED: 05075788 (2) CHF (congestive heart failure) ICD Codes: I50.9 - Heart failure, unspecified SNOMED: 15515304 (3) Malnutrition ICD Codes: E46 - Unspecified protein-calorie malnutrition SNOMED: 35567349 (4) Chronic pain ICD Codes: G89.29 - Other chronic pain SNOMED: 41142027 (5) Acute renal failure ICD Codes: N17.9 - Acute kidney failure, unspecified SNOMED: 08209897 (6) Ascites ICD Codes: R18.8 - Ascites SNOMED: 131045428 (7) Cirrhosis ICD Codes: K74.60 - Unspecified cirrhosis of liver SNOMED: 57666303 (8) Hepatitis C ICD Codes: B19.20 - Hepatitis C SNOMED: 67839514 (9) Anemia ICD Codes: D64.9 - Anemia, unspecified SNOMED: 187649703 Status: stable, progressing Assessment/Plan o2 pulm tx pain control diurese cbc bmp am Subjective Constitutional: Reports: weakness Respiratory: Reports: shortness of breath Allergies: Coded Allergies: HYDROMORPHONE (Verified Allergy, Unknown, 12/28/10) All Systems: reviewed and negative except above Subjective c/o abd pain swelling s/p pericentesis Objective Last 24 Hour Vital Signs Date Time Temp Pulse Resp B/P (MAP) Pulse Ox O2 Delivery O2 Flow Rate FiO2 06/03/18 12:00 97.8 79 19 131/86 (101) 95 06/03/18 10:51 124/63 06/03/18 10:50 80 06/03/18 10:50 80 124/63 06/03/18 09:35 75 16 Room Air 21 06/03/18 09:00 Room Air Room Air 06/03/18 08:00 98.0 80 19 124/63 (83) 99 06/03/18 04:00 98.2 78 18 121/60 (80) 98 06/03/18 00:00 97.5 71 18 125/69 (87) 98 06/02/18 21:00 Room Air Room Air 06/02/18 20:23 71 127/66 06/02/18 20:00 97.6 71 18 127/66 (86) 99 06/02/18 16:00 97.5 68 19 101/58 (72) 98 Intake and Output 06/02/18 06/03/18 19:00 07:00 Intake Total 622 ml Output Total 1300 ml 1100 ml Balance -678 ml -1100 ml Intake Oral 400 ml IV Total 222 ml Output Urine Total 1300 ml 1100 ml Laboratory Tests 06/03/18 05:40: White Blood Count 4.6L, Red Blood Count 3.51L, Hemoglobin 9.3L, Hematocrit 30.5L , Mean Corpuscular Volume 87, Mean Corpuscular Hemoglobin 26.4L, Mean Corpuscular Hemoglobin Concent 30.4L, Red Cell Distribution Width 19.7H, Platelet Count 133L, Mean Platelet Volume 6.9, Neutrophils (%) (Auto) 69.0, Lymphocytes (%) (Auto) 17.0L, Monocytes (%) (Auto) 10.0, Eosinophils (%) (Auto) 3.2H, Basophils (%) (Auto) 0.8, Prothrombin Time 15.2H, Prothromb Time International Ratio 1.5H, Activated Partial Thromboplast Time 32, Sodium Level 136, Potassium Level 3.4L, Chloride Level 98, Carbon Dioxide Level 34H, Anion Gap 4L, Blood Urea Nitrogen 36H, Creatinine 1.6H, Estimat Glomerular Filtration Rate 52.8, Glucose Level 97, Calcium Level 8.8, Phosphorus Level 3.3, Magnesium Level 1.5L, Total Bilirubin 1.3H, Direct Bilirubin 0.8H, Aspartate Amino Transf (AST/SGOT) 17, Alanine Aminotransferase (ALT/SGPT) 16, Alkaline Phosphatase 118H , Total Protein 7.7, Albumin 3.0L, Globulin 4.7, Albumin/Globulin Ratio 0.6L 06/03/18 09:30: Body Fluid Source Paracenthesis, Body Fluid Volume 9, Body Fluid Appearance Clear, Body Fluid RBC 727, Body Fluid Total Nucleated Cells 122, Body Fluid Polynuclear WBCs (%) 4, Body Fluid Mononuclear WBCs (%) 92, Body Fluid Mesothelial Cells (%) 4, Body Fluid Albumin [Pending] Height (Feet): 5 Height (Inches): 9.00 Weight (Pounds): 164 General Appearance: lethargic EENT: normal ENT inspection Neck: normal alignment Cardiovascular: normal peripheral pulses, normal rate, regular rhythm Respiratory/Chest: chest wall non-tender, lungs clear, normal breath sounds Abdomen: normal bowel sounds, decreased bowel sounds, distended Extremities: normal inspection Edema: no edema noted Arm (L), no edema noted Arm (R), no edema noted Leg (L), no edema noted Leg (R), no edema noted Pedal (L), no edema noted Pedal (R), no edema noted Generalized Neurologic: responsive, motor weakness Shahid Cherry DO Jun 03, 2018 14:35
[2018-06-03 16:00] VITALS: BP 129/77
--- NOTE | 2018-06-03 16:23 | Nephrology Progress Note ---
Assessment/Plan Problem List: (1) Acute renal failure Assessment: Cr lower (2) Cardiorenal syndrome (3) Cirrhosis (4) ICD (implantable cardioverter-defibrillator) in place (5) Cardiomyopathy due to hypertension, with heart failure Assessment 1. Acute kidney injury on chronic kidney disease, stage 4 secondary to cardiorenal syndrome from low ejection fraction. Has ICD 2. Hyperkalemia, improving 3. Decompensated congestive heart failure. 4. Ascites. Cardiogenic in nature. Has underlying hepatitis. 5. Shortness of breath, Plan Stop Aldactone Dig level checked optimize cardiac function ua urine tox screen Kayexelate- Reglan IV Allopurinol monitor renal parameters IV Iron ? Paracenthesis?? Objective Objective Last 24 Hour Vital Signs Date Time Temp Pulse Resp B/P (MAP) Pulse Ox O2 Delivery O2 Flow Rate FiO2 06/03/18 16:00 98.0 75 19 129/77 (94) 96 06/03/18 12:00 97.8 79 19 131/86 (101) 95 06/03/18 10:51 124/63 06/03/18 10:50 80 06/03/18 10:50 80 124/63 06/03/18 09:35 75 16 Room Air 21 06/03/18 09:00 Room Air Room Air 06/03/18 08:00 98.0 80 19 124/63 (83) 99 06/03/18 04:00 98.2 78 18 121/60 (80) 98 06/03/18 00:00 97.5 71 18 125/69 (87) 98 06/02/18 21:00 Room Air Room Air 06/02/18 20:23 71 127/66 06/02/18 20:00 97.6 71 18 127/66 (86) 99 Intake and Output 06/02/18 06/03/18 19:00 07:00 Intake Total 622 ml Output Total 1300 ml 1100 ml Balance -678 ml -1100 ml Intake Oral 400 ml IV Total 222 ml Output Urine Total 1300 ml 1100 ml Laboratory Tests 06/03/18 05:40: White Blood Count 4.6L, Red Blood Count 3.51L, Hemoglobin 9.3L, Hematocrit 30.5L , Mean Corpuscular Volume 87, Mean Corpuscular Hemoglobin 26.4L, Mean Corpuscular Hemoglobin Concent 30.4L, Red Cell Distribution Width 19.7H, Platelet Count 133L, Mean Platelet Volume 6.9, Neutrophils (%) (Auto) 69.0, Lymphocytes (%) (Auto) 17.0L, Monocytes (%) (Auto) 10.0, Eosinophils (%) (Auto) 3.2H, Basophils (%) (Auto) 0.8, Prothrombin Time 15.2H, Prothromb Time International Ratio 1.5H, Activated Partial Thromboplast Time 32, Sodium Level 136, Potassium Level 3.4L, Chloride Level 98, Carbon Dioxide Level 34H, Anion Gap 4L, Blood Urea Nitrogen 36H, Creatinine 1.6H, Estimat Glomerular Filtration Rate 52.8, Glucose Level 97, Calcium Level 8.8, Phosphorus Level 3.3, Magnesium Level 1.5L, Total Bilirubin 1.3H, Direct Bilirubin 0.8H, Aspartate Amino Transf (AST/SGOT) 17, Alanine Aminotransferase (ALT/SGPT) 16, Alkaline Phosphatase 118H , Total Protein 7.7, Albumin 3.0L, Globulin 4.7, Albumin/Globulin Ratio 0.6L 06/03/18 09:30: Body Fluid Source Paracenthesis, Body Fluid Volume 9, Body Fluid Appearance Clear, Body Fluid RBC 727, Body Fluid Total Nucleated Cells 122, Body Fluid Polynuclear WBCs (%) 4, Body Fluid Mononuclear WBCs (%) 92, Body Fluid Mesothelial Cells (%) 4, Body Fluid Albumin [Pending] Height (Feet): 5 Height (Inches): 9.00 Weight (Pounds): 164 General Appearance: no apparent distress Cardiovascular: normal rate Respiratory/Chest: decreased breath sounds Abdomen: distended Blaine Rojas MD Jun 03, 2018 16:23
[2018-06-03] MEDS: Xarelto 10mg tab ORAL SCH (17:18)
[2018-06-03 20:00] VITALS: BP 104/63
[2018-06-03] MEDS: Dyna-Hex 2% Top Sol 2oz TOPIC SCH (21:11)
[2018-06-04] VITALS: BP 91/54
[2018-06-04] MEDS: oxyCODONE 5mg IR tab ORAL PRN ×3 (03:00→20:08)
[2018-06-04 04:00] VITALS: BP 107/71
[2018-06-04 06:51] LABS: BASOPHILS % (AUTO) 1.4 % (0.0-2.0); EOSINOPHILS % (AUTO) 2.7 % (0.0-3.0); HEMATOCRIT 31.4 % (42.0-52.0); HEMOGLOBIN 9.5 G/DL (14.2-18.0); LYMPHOCYTES % (AUTO) 18.9 % (20.0-45.0); MEAN CORPUSCULAR VOLUME 88 FL (80-99); MONOCYTES % (AUTO) 11.2 % (1.0-10.0); NEUTROPHILS % (AUTO) 65.8 % (45.0-75.0); PLATELET COUNT 113 K/UL (150-450); RED BLOOD COUNT 3.57 M/UL (4.70-6.10); RED CELL DISTRIBUTION WIDTH 20.3 % (11.6-14.8); WHITE BLOOD COUNT 4.2 K/UL (4.8-10.8)
[2018-06-04 07:01] LABS: ANION GAP 3 mmol/L (5-15); BLOOD UREA NITROGEN 35 mg/dL (7-18); CALCIUM 8.6 MG/DL (8.5-10.1); CARBON DIOXIDE 35 MMOL/L (21-32); CHLORIDE 98 MMOL/L (98-107); CREATININE 1.5 MG/DL (0.55-1.30); POTASSIUM 3.9 MMOL/L (3.5-5.1); SODIUM 136 MMOL/L (136-145)
[2018-06-04 08:00] VITALS: BP 112/80
--- NOTE | 2018-06-04 08:46 | General Progress Note ---
Assessment/Plan Assessment/Plan (1) Lumbar degenerative disc disease (2) Lumbar spondylosis (3) Lumbar radiculopathy (4) Liver Cirrhosis (5) Abdominal pain Pt will be continued on Oxycodone. Pt was d/w Dr. Carson and he concurred. Subjective Date patient seen: Jun 04, 2018 Time patient seen: 07:15 - am Allergies: Coded Allergies: HYDROMORPHONE (Verified Allergy, Unknown, 12/28/10) Subjective Constitutional: Reports: weakness, Denies: chills, diaphoresis, fever, malaise , no symptoms, other HEENT: Denies: blurred vision, double vision, ear discharge, ear pain, eye pain , mouth pain, mouth swelling, no symptoms, nose congestion, nose pain, other, tearing, throat pain, throat swelling Cardiovascular: Denies: irregular heart rate, lightheadedness, no symptoms, other, palpitations, syncope Respiratory: Denies: SOB at rest, SOB with excertion, cough, no symptoms, orthopnea, other, shortness of breath, sputum, stridor, wheezing Gastrointestinal/Abdominal: Reports: abdominal pain, Denies: abdomen distended , black stools, blood in stool, constipated, diarrhea, difficulty swallowing, nausea, no symptoms, other, poor appetite, poor fluid intake, rectal bleeding, tarry stools, vomiting Genitourinary: Denies: burning, discharge, flank pain, frequency, hematuria, incontinence, no symptoms, other, pain, urgency Neurologic/Psychiatric: Reports: weakness, Denies: anxiety, depressed, emotional problems, headache, no symptoms, numbness, other, paresthesia, pre- existing deficit, seizure, tingling, tremors Endocrine: Denies: excessive sweating, flushing, increased hunger, increased thirst, increased urine, intolerance to cold, intolerance to heat, no symptoms, other, unexplained weight gain, unexplained weight loss Hematologic/Lymphatic: Denies: anemia, easy bleeding, easy bruising, no symptoms, other Subjective Patient is doing well and tolerating the pain on the Oxycodone 4 doses in the last 24 hrs. He has no new complaints at this time. Objective Last 24 Hour Vital Signs Date Time Temp Pulse Resp B/P (MAP) Pulse Ox O2 Delivery O2 Flow Rate FiO2 06/04/18 04:00 97.7 69 19 107/71 (83) 100 12/20/18 00:00 97.9 71 18 91/54 (66) 100 06/03/18 21:54 71 16 Room Air 21 06/03/18 21:00 Room Air Room Air 06/03/18 20:59 78 104/63 06/03/18 20:00 98.7 72 18 104/63 (77) 100 06/03/18 16:00 98.0 75 19 129/77 (94) 96 06/03/18 12:00 97.8 79 19 131/86 (101) 95 06/03/18 10:51 124/63 06/03/18 10:50 80 06/03/18 10:50 80 124/63 06/03/18 09:35 75 16 Room Air 21 06/03/18 09:00 Room Air Room Air Intake and Output 06/03/18 06/04/18 19:00 07:00 Intake Total 1480 ml 250 ml Output Total 1550 ml Balance 1480 ml -1300 ml Intake Oral 1480 ml 250 ml Output Urine Total 1550 ml # Voids 6 # Bowel Movements 1 Laboratory Tests 06/03/18 09:30: Body Fluid Source Paracenthesis, Body Fluid Volume 9, Body Fluid Appearance Clear, Body Fluid RBC 727, Body Fluid Total Nucleated Cells 122, Body Fluid Polynuclear WBCs (%) 4, Body Fluid Mononuclear WBCs (%) 92, Body Fluid Mesothelial Cells (%) 4, Body Fluid Albumin [Pending] 06/04/18 05:25: White Blood Count 4.2L, Red Blood Count 3.57L, Hemoglobin 9.5L, Hematocrit 31.4L , Mean Corpuscular Volume 88, Mean Corpuscular Hemoglobin 26.7L, Mean Corpuscular Hemoglobin Concent 30.3L, Red Cell Distribution Width 20.3H, Platelet Count 113L, Mean Platelet Volume 6.3L, Neutrophils (%) (Auto) 65.8, Lymphocytes (%) (Auto) 18.9L, Monocytes (%) (Auto) 11.2H, Eosinophils (%) (Auto ) 2.7, Basophils (%) (Auto) 1.4, Sodium Level 136, Potassium Level 3.9, Chloride Level 98, Carbon Dioxide Level 35H, Anion Gap 3L, Blood Urea Nitrogen 35H, Creatinine 1.5H, Estimat Glomerular Filtration Rate 57.0, Glucose Level 106 , Calcium Level 8.6 Height (Feet): 5 Height (Inches): 9.00 Weight (Pounds): 164 Objective General Appearance: no apparent distress, alert EENT: normal ENT inspection, TMs normal Neck: normal alignment, supple Cardiovascular: normal rate, regular rhythm Respiratory/Chest: lungs clear, normal breath sounds Abdomen: tender, distended Extremities: non-tender Edema: edema noted in b/l LE Neurologic: alert, oriented x 3 Skin: warm/dry Luc Sanchez Jun 04, 2018 08:46
[2018-06-04] MEDS: Docusate 100mg cap ORAL SCH ×3 (09:00→17:36)
[2018-06-04] MEDS: Imdur 30mg tab ORAL SCH (09:23)
[2018-06-04] MEDS: Digoxin 0.125mg tab ORAL SCH (09:23)
[2018-06-04 12:00] VITALS: BP 110/71
--- NOTE | 2018-06-04 12:30 | GI Progress Note ---
Assessment/Plan Problems: (1) Cirrhosis ICD Codes: K74.60 - Unspecified cirrhosis of liver SNOMED: 66879889 (2) Right-sided heart failure ICD Codes: I50.9 - Right-sided heart failure SNOMED: 662051133 (3) Ascites ICD Codes: R18.8 - Ascites SNOMED: 202889214 (4) Anemia ICD Codes: D64.9 - Anemia, unspecified SNOMED: 718728464 Status: unchanged Status Narrative Discussed with Dr. Ryan Assessment/Plan Assessment - Hepatitis C, eradicated per pt - Possible ascites, but volume likely small - CM - Azotemia - cardiac ascites - s/p paracentesis yielding 1.5L - AFP normal Recommendations - advance diet - Diuretics - Na restriction - fu cardiology recs - dc planning The patient was seen and examined at bedside and all new and available data was reviewed in the patients chart. I agree with the above findings, impression and plan. (Patient seen earlier today. Signature stamp does not reflect patient encounter time.). - Beto Ryan MD Subjective Subjective abdominal discomfort and distention Objective Last 24 Hour Vital Signs Date Time Temp Pulse Resp B/P (MAP) Pulse Ox O2 Delivery O2 Flow Rate FiO2 06/04/18 12:00 97.7 75 18 110/71 (84) 99 06/04/18 09:23 112/80 06/04/18 09:23 79 06/04/18 09:23 79 112/80 06/04/18 09:00 Room Air Room Air 06/04/18 08:00 97.5 79 16 112/80 (91) 99 06/04/18 07:50 78 16 Room Air 21 06/04/18 04:00 97.7 69 19 107/71 (83) 100 06/04/18 00:00 97.9 71 18 91/54 (66) 100 06/03/18 21:54 71 16 Room Air 21 06/03/18 21:00 Room Air Room Air 06/03/18 20:59 78 104/63 06/03/18 20:00 98.7 72 18 104/63 (77) 100 06/03/18 16:00 98.0 75 19 129/77 (94) 96 Intake and Output 06/03/18 06/04/18 19:00 07:00 Intake Total 1480 ml 250 ml Output Total 1550 ml Balance 1480 ml -1300 ml Intake Oral 1480 ml 250 ml Output Urine Total 1550 ml # Voids 6 # Bowel Movements 1 Laboratory Tests Test 06/04/18 05:25 White Blood Count 4.2 K/UL (4.8-10.8) L Red Blood Count 3.57 M/UL (4.70-6.10) L Hemoglobin 9.5 G/DL (14.2-18.0) L Hematocrit 31.4 % (42.0-52.0) L Mean Corpuscular Volume 88 FL (80-99) Mean Corpuscular Hemoglobin 26.7 PG (27.0-31.0) L Mean Corpuscular Hemoglobin Concent 30.3 G/DL (32.0-36.0) L Red Cell Distribution Width 20.3 % (11.6-14.8) H Platelet Count 113 K/UL (150-450) L Mean Platelet Volume 6.3 FL (6.5-10.1) L Neutrophils (%) (Auto) 65.8 % (45.0-75.0) Lymphocytes (%) (Auto) 18.9 % (20.0-45.0) L Monocytes (%) (Auto) 11.2 % (1.0-10.0) H Eosinophils (%) (Auto) 2.7 % (0.0-3.0) Basophils (%) (Auto) 1.4 % (0.0-2.0) Sodium Level 136 MMOL/L (136-145) Potassium Level 3.9 MMOL/L (3.5-5.1) Chloride Level 98 MMOL/L (98-107) Carbon Dioxide Level 35 MMOL/L (21-32) H Anion Gap 3 mmol/L (5-15) L Blood Urea Nitrogen 35 mg/dL (7-18) H Creatinine 1.5 MG/DL (0.55-1.30) H Estimat Glomerular Filtration Rate 57.0 mL/min (>60) Glucose Level 106 MG/DL (74-106) Calcium Level 8.6 MG/DL (8.5-10.1) Height (Feet): 5 Height (Inches): 9.00 Weight (Pounds): 164 General Appearance: WD/WN, no apparent distress, alert Cardiovascular: normal rate Respiratory/Chest: normal breath sounds, no respiratory distress Abdominal Exam: normal bowel sounds, non tender, soft Extremities: normal range of motion, non-tender Kiarra Bird NP Jun 04, 2018 12:30
--- NOTE | 2018-06-04 12:35 | Pulmonology Progress Note ---
Assessment/Plan Problems: (1) Ascites (2) ICD (implantable cardioverter-defibrillator) in place (3) Cirrhosis (4) Cardiomyopathy due to hypertension, with heart failure (5) Emphysema lung (6) Right-sided heart failure (7) Cardiorenal syndrome (8) Hepatitis C Assessment/Plan removed 1/5 liters of ascitic fluid eating well diuretics check electrolytes Pt goes back and forth between [facility] and [facility]. Suggest end of life care. dc planning Subjective ROS Limited/Unobtainable: No Interval Events: doing better Allergies: Coded Allergies: HYDROMORPHONE (Verified Allergy, Unknown, 12/28/10) Objective Last 24 Hour Vital Signs Date Time Temp Pulse Resp B/P (MAP) Pulse Ox O2 Delivery O2 Flow Rate FiO2 06/04/18 12:00 97.7 75 18 110/71 (84) 99 06/04/18 09:23 112/80 06/04/18 09:23 79 06/04/18 09:23 79 112/80 06/04/18 09:00 Room Air Room Air 06/04/18 08:00 97.5 79 16 112/80 (91) 99 06/04/18 07:50 78 16 Room Air 21 06/04/18 04:00 97.7 69 19 107/71 (83) 100 06/04/18 00:00 97.9 71 18 91/54 (66) 100 06/03/18 21:54 71 16 Room Air 21 06/03/18 21:00 Room Air Room Air 06/03/18 20:59 78 104/63 06/03/18 20:00 98.7 72 18 104/63 (77) 100 06/03/18 16:00 98.0 75 19 129/77 (94) 96 Intake and Output 06/03/18 06/04/18 19:00 07:00 Intake Total 1480 ml 250 ml Output Total 1550 ml Balance 1480 ml -1300 ml Intake Oral 1480 ml 250 ml Output Urine Total 1550 ml # Voids 6 # Bowel Movements 1 General Appearance: WD/WN HEENT: normocephalic, atraumatic Respiratory/Chest: chest wall non-tender, lungs clear Abdomen: normal bowel sounds, soft, non tender Genitourinary: normal external genitalia Extremities: no clubbing Skin: no ulcers Neurologic/Psychiatric: no motor/sensory deficits Lymphatic: no neck adenopathy Microbiology Date/Time Source Procedure Growth Status 06/03/18 09:30 Ascities Fluid Gram Stain - Final Resulted 06/03/18 09:30 Ascities Fluid Body Fluid Culture - Preliminary NO GROWTH Resulted Laboratory Tests 06/04/18 05:25: White Blood Count 4.2L, Red Blood Count 3.57L, Hemoglobin 9.5L, Hematocrit 31.4L , Mean Corpuscular Volume 88, Mean Corpuscular Hemoglobin 26.7L, Mean Corpuscular Hemoglobin Concent 30.3L, Red Cell Distribution Width 20.3H, Platelet Count 113L, Mean Platelet Volume 6.3L, Neutrophils (%) (Auto) 65.8, Lymphocytes (%) (Auto) 18.9L, Monocytes (%) (Auto) 11.2H, Eosinophils (%) (Auto ) 2.7, Basophils (%) (Auto) 1.4, Sodium Level 136, Potassium Level 3.9, Chloride Level 98, Carbon Dioxide Level 35H, Anion Gap 3L, Blood Urea Nitrogen 35H, Creatinine 1.5H, Estimat Glomerular Filtration Rate 57.0, Glucose Level 106 , Calcium Level 8.6 Current Medications Medications (Trade) Dose Ordered Sig/Allyn Route PRN Reason Start Time Stop Time Status Last Admin Dose Admin Acetaminophen (Tylenol) 650 mg Q4H PRN ORAL Mild Pain/Temp > 100.5 06/01/18 20:45 06/29/18 20:44 Albuterol/ Ipratropium (Albuterol/ Ipratropium) 3 ml Q4H PRN HHN Shortness of Breath 06/01/18 20:45 06/04/18 20:44 Allopurinol (Allopurinol) 300 mg DAILY ORAL 06/02/18 09:00 07/01/18 08:59 06/04/18 09:24 Carvedilol (Coreg) 3.125 mg EVERY 12 HOURS ORAL 06/01/18 21:00 07/01/18 20:59 06/04/18 09:23 Chlorhexidine Gluconate (Kalani-Hex 2%) 1 applic DAILY@1999 TOPIC 06/02/18 20:00 06/30/18 19:59 06/03/18 21:11 Dextrose (Dextrose 50%) 25 ml Q30M PRN IV Hypoglycemia 06/01/18 20:45 06/29/18 15:14 Dextrose (Dextrose 50%) 50 ml Q30MIN PRN IV Hypoglycemia 06/01/18 20:30 06/29/18 15:14 Digoxin (Lanoxin) 0.125 mg DAILY ORAL 06/02/18 09:00 07/01/18 08:59 06/04/18 09:23 Docusate Sodium (Colace) 100 mg THREE TIMES A DAY ORAL 06/02/18 09:00 06/30/18 17:59 06/02/18 09:08 Furosemide (Lasix) 40 mg EVERY 12 HOURS IV 06/01/18 21:00 06/29/18 21:59 06/04/18 09:22 Iron Sucrose 100 mg/Sodium Chloride 55 ml @ 200 mls/hr BEDTIME IV 06/01/18 21:00 06/05/18 21:17 06/03/18 21:07 Isosorbide Mononitrate (Imdur) 30 mg DAILY ORAL 06/02/18 09:00 07/01/18 08:59 06/04/18 09:23 Levothyroxine Sodium (Synthroid) 50 mcg DAILY IV 06/02/18 09:00 07/01/18 12:29 06/04/18 09:24 Metoclopramide HCl (Reglan) 10 mg Q8H PRN IVP Nausea & Vomiting 06/01/18 20:45 06/30/18 20:44 Ondansetron HCl (Zofran) 4 mg Q6H PRN IVP Nausea & Vomiting 06/01/18 20:45 06/29/18 20:44 Oxycodone HCl (Roxicodone) 10 mg Q4H PRN ORAL Severe Pain (Pain Scale 7-10) 06/01/18 22:30 06/08/18 22:29 06/04/18 09:24 Polyethylene Glycol (Miralax) 17 gm DAILYPRN PRN ORAL Constipation 06/01/18 20:45 07/01/18 20:44 Rivaroxaban (Xarelto) 20 mg QPM ORAL 06/02/18 16:30 07/02/18 16:29 06/03/18 17:18 Temazepam (Restoril) 15 mg HSPRN PRN ORAL Insomnia 06/01/18 20:45 06/08/18 20:44 Andrzej Chavarria MD Jun 04, 2018 12:35
--- NOTE | 2018-06-04 14:39 | General Progress Note ---
Assessment/Plan Problem List: (1) HTN (hypertension) ICD Codes: I10 - Essential (primary) hypertension SNOMED: 16741724 (2) CHF (congestive heart failure) ICD Codes: I50.9 - Heart failure, unspecified SNOMED: 68476837 (3) Malnutrition ICD Codes: E46 - Unspecified protein-calorie malnutrition SNOMED: 73490799 (4) Chronic pain ICD Codes: G89.29 - Other chronic pain SNOMED: 53777201 (5) Acute renal failure ICD Codes: N17.9 - Acute kidney failure, unspecified SNOMED: 51653420 (6) Ascites ICD Codes: R18.8 - Ascites SNOMED: 350378771 (7) Cirrhosis ICD Codes: K74.60 - Unspecified cirrhosis of liver SNOMED: 69128163 (8) Hepatitis C ICD Codes: B19.20 - Hepatitis C SNOMED: 85188946 (9) Anemia ICD Codes: D64.9 - Anemia, unspecified SNOMED: 199794109 Status: stable, progressing Assessment/Plan o2 pulm tx pain control diurese cbc bmp am dc plan w hh Subjective Constitutional: Reports: weakness Allergies: Coded Allergies: HYDROMORPHONE (Verified Allergy, Unknown, 12/28/10) All Systems: reviewed and negative except above Subjective c/o abd pain swelling s/p pericentesis Objective Last 24 Hour Vital Signs Date Time Temp Pulse Resp B/P (MAP) Pulse Ox O2 Delivery O2 Flow Rate FiO2 06/04/18 12:00 97.7 75 18 110/71 (84) 99 06/04/18 09:23 112/80 06/04/18 09:23 79 06/04/18 09:23 79 112/80 06/04/18 09:00 Room Air Room Air 06/04/18 08:00 97.5 79 16 112/80 (91) 99 06/04/18 07:50 78 16 Room Air 21 06/04/18 04:00 97.7 69 19 107/71 (83) 100 06/04/18 00:00 97.9 71 18 91/54 (66) 100 06/03/18 21:54 71 16 Room Air 21 06/03/18 21:00 Room Air Room Air 06/03/18 20:59 78 104/63 06/03/18 20:00 98.7 72 18 104/63 (77) 100 06/03/18 16:00 98.0 75 19 129/77 (94) 96 Intake and Output 06/03/18 06/04/18 19:00 07:00 Intake Total 1480 ml 250 ml Output Total 1550 ml Balance 1480 ml -1300 ml Intake Oral 1480 ml 250 ml Output Urine Total 1550 ml # Voids 6 # Bowel Movements 1 Laboratory Tests 06/04/18 05:25: White Blood Count 4.2L, Red Blood Count 3.57L, Hemoglobin 9.5L, Hematocrit 31.4L , Mean Corpuscular Volume 88, Mean Corpuscular Hemoglobin 26.7L, Mean Corpuscular Hemoglobin Concent 30.3L, Red Cell Distribution Width 20.3H, Platelet Count 113L, Mean Platelet Volume 6.3L, Neutrophils (%) (Auto) 65.8, Lymphocytes (%) (Auto) 18.9L, Monocytes (%) (Auto) 11.2H, Eosinophils (%) (Auto ) 2.7, Basophils (%) (Auto) 1.4, Sodium Level 136, Potassium Level 3.9, Chloride Level 98, Carbon Dioxide Level 35H, Anion Gap 3L, Blood Urea Nitrogen 35H, Creatinine 1.5H, Estimat Glomerular Filtration Rate 57.0, Glucose Level 106 , Calcium Level 8.6 Height (Feet): 5 Height (Inches): 9.00 Weight (Pounds): 164 General Appearance: lethargic EENT: normal ENT inspection Neck: normal alignment Cardiovascular: normal peripheral pulses, normal rate, regular rhythm Respiratory/Chest: chest wall non-tender, lungs clear, normal breath sounds Abdomen: normal bowel sounds, non tender, soft Extremities: normal inspection Edema: no edema noted Arm (L), no edema noted Arm (R), no edema noted Leg (L), no edema noted Leg (R), no edema noted Pedal (L), no edema noted Pedal (R), no edema noted Generalized Neurologic: responsive, motor weakness Skin: normal pigmentation, warm/dry Shahid Cherry DO Jun 04, 2018 14:39
--- NOTE | 2018-06-04 15:22 | Nephrology Progress Note ---
Assessment/Plan Problem List: (1) Acute renal failure Assessment: Cr lower (2) Cardiorenal syndrome (3) Cirrhosis (4) ICD (implantable cardioverter-defibrillator) in place (5) Cardiomyopathy due to hypertension, with heart failure Assessment 1. Acute kidney injury on chronic kidney disease, stage 4 secondary to cardiorenal syndrome from low ejection fraction. Has ICD 2. Hyperkalemia, improving 3. Decompensated congestive heart failure. 4. Ascites. Cardiogenic in nature. Has underlying hepatitis. 5. Shortness of breath, Plan Stop Aldactone Dig level checked optimize cardiac function ua urine tox screen Kayexelate- Reglan IV Allopurinol monitor renal parameters IV Iron Paracenthesis done Subjective ROS Limited/Unobtainable: No Objective Objective Last 24 Hour Vital Signs Date Time Temp Pulse Resp B/P (MAP) Pulse Ox O2 Delivery O2 Flow Rate FiO2 06/04/18 12:00 97.7 75 18 110/71 (84) 99 06/04/18 09:23 112/80 06/04/18 09:23 79 06/04/18 09:23 79 112/80 06/04/18 09:00 Room Air Room Air 06/04/18 08:00 97.5 79 16 112/80 (91) 99 06/04/18 07:50 78 16 Room Air 21 06/04/18 04:00 97.7 69 19 107/71 (83) 100 06/04/18 00:00 97.9 71 18 91/54 (66) 100 06/03/18 21:54 71 16 Room Air 21 06/03/18 21:00 Room Air Room Air 06/03/18 20:59 78 104/63 06/03/18 20:00 98.7 72 18 104/63 (77) 100 06/03/18 16:00 98.0 75 19 129/77 (94) 96 Intake and Output 06/03/18 06/04/18 19:00 07:00 Intake Total 1480 ml 250 ml Output Total 1550 ml Balance 1480 ml -1300 ml Intake Oral 1480 ml 250 ml Output Urine Total 1550 ml # Voids 6 # Bowel Movements 1 Laboratory Tests 06/04/18 05:25: White Blood Count 4.2L, Red Blood Count 3.57L, Hemoglobin 9.5L, Hematocrit 31.4L , Mean Corpuscular Volume 88, Mean Corpuscular Hemoglobin 26.7L, Mean Corpuscular Hemoglobin Concent 30.3L, Red Cell Distribution Width 20.3H, Platelet Count 113L, Mean Platelet Volume 6.3L, Neutrophils (%) (Auto) 65.8, Lymphocytes (%) (Auto) 18.9L, Monocytes (%) (Auto) 11.2H, Eosinophils (%) (Auto ) 2.7, Basophils (%) (Auto) 1.4, Sodium Level 136, Potassium Level 3.9, Chloride Level 98, Carbon Dioxide Level 35H, Anion Gap 3L, Blood Urea Nitrogen 35H, Creatinine 1.5H, Estimat Glomerular Filtration Rate 57.0, Glucose Level 106 , Calcium Level 8.6 Height (Feet): 5 Height (Inches): 9.00 Weight (Pounds): 164 General Appearance: no apparent distress Respiratory/Chest: decreased breath sounds Abdomen: soft, distended Blaine Rojas MD Jun 04, 2018 15:22
[2018-06-04] MEDS ORDERED: Tubing IV Secondary IV ONE (15:34)
[2018-06-04] MEDS ORDERED: NS 275ml ONE (15:34)
[2018-06-04] MEDS ORDERED: Tubing IV Blood Pump IV ONE (15:34)
[2018-06-04 16:00] VITALS: BP 117/52
--- NOTE | 2018-06-04 16:54 | Cardiac Electrophysiology PN ---
Assessment/Plan Assessment/Plan 1. Exacerbation of congestive heart failure. Continue digoxin 0.125 mg daily, Coreg, Imdur and Lasix 40 IV b.i.d. Add Aldactone 25 daily. 2. Paroxysmal atrial fibrillation on digoxin, Coreg and Xarelto. 3. Status post [facility] [facility] biventricular defibrillator with normal function. 4. Hypothyroidism. 5. Hepatitis and cirrhosis, status post paracentesis 1.5 liters . Further evaluation by Dr. Ryan. 6. Renal failure. BUN of 52 and creatinine of 2. FU Dr. Rojas. DW RN Subjective Subjective Had 1.5 liter of Paracentesis yesterday. Feeling weak Objective Last 24 Hour Vital Signs Date Time Temp Pulse Resp B/P (MAP) Pulse Ox O2 Delivery O2 Flow Rate FiO2 06/04/18 16:00 98.0 74 18 117/52 (73) 97 06/04/18 12:00 97.7 75 18 110/71 (84) 99 06/04/18 09:23 112/80 06/04/18 09:23 79 06/04/18 09:23 79 112/80 06/04/18 09:00 Room Air Room Air 06/04/18 08:00 97.5 79 16 112/80 (91) 99 06/04/18 07:50 78 16 Room Air 21 06/04/18 04:00 97.7 69 19 107/71 (83) 100 06/04/18 00:00 97.9 71 18 91/54 (66) 100 06/03/18 21:54 71 16 Room Air 21 06/03/18 21:00 Room Air Room Air 06/03/18 20:59 78 104/63 06/03/18 20:00 98.7 72 18 104/63 (77) 100 Intake and Output 06/03/18 06/04/18 19:00 07:00 Intake Total 1480 ml 250 ml Output Total 1550 ml Balance 1480 ml -1300 ml Intake Oral 1480 ml 250 ml Output Urine Total 1550 ml # Voids 6 # Bowel Movements 1 Laboratory Tests Test 06/04/18 05:25 White Blood Count 4.2 K/UL (4.8-10.8) L Red Blood Count 3.57 M/UL (4.70-6.10) L Hemoglobin 9.5 G/DL (14.2-18.0) L Hematocrit 31.4 % (42.0-52.0) L Mean Corpuscular Volume 88 FL (80-99) Mean Corpuscular Hemoglobin 26.7 PG (27.0-31.0) L Mean Corpuscular Hemoglobin Concent 30.3 G/DL (32.0-36.0) L Red Cell Distribution Width 20.3 % (11.6-14.8) H Platelet Count 113 K/UL (150-450) L Mean Platelet Volume 6.3 FL (6.5-10.1) L Neutrophils (%) (Auto) 65.8 % (45.0-75.0) Lymphocytes (%) (Auto) 18.9 % (20.0-45.0) L Monocytes (%) (Auto) 11.2 % (1.0-10.0) H Eosinophils (%) (Auto) 2.7 % (0.0-3.0) Basophils (%) (Auto) 1.4 % (0.0-2.0) Sodium Level 136 MMOL/L (136-145) Potassium Level 3.9 MMOL/L (3.5-5.1) Chloride Level 98 MMOL/L (98-107) Carbon Dioxide Level 35 MMOL/L (21-32) H Anion Gap 3 mmol/L (5-15) L Blood Urea Nitrogen 35 mg/dL (7-18) H Creatinine 1.5 MG/DL (0.55-1.30) H Estimat Glomerular Filtration Rate 57.0 mL/min (>60) Glucose Level 106 MG/DL (74-106) Calcium Level 8.6 MG/DL (8.5-10.1) Microbiology Date/Time Source Procedure Growth Status 06/03/18 09:30 Ascities Fluid Gram Stain - Final Resulted 06/03/18 09:30 Ascities Fluid Body Fluid Culture - Preliminary NO GROWTH Resulted Objective HEAD AND NECK: Moderate JVD. LUNGS: Decreased breath sounds. CARDIOVASCULAR: Regular S1 and S2 with S3 gallop with soft systolic murmur. Defibrillator in left subclavian. ABDOMEN: Soft with ascites. EXTREMITIES: 1+ pitting edema. Rc Zhang MD Jun 04, 2018 16:54
[2018-06-04] MEDS: Xarelto 10mg tab ORAL SCH (17:36)
[2018-06-04 20:00] VITALS: BP 105/77
[2018-06-04] MEDS: Dyna-Hex 2% Top Sol 2oz TOPIC SCH (20:07)
[2018-06-05 00:28] VITALS: BP 93/61
[2018-06-05 04:00] VITALS: BP 109/67
[2018-06-05] MEDS: oxyCODONE 5mg IR tab ORAL PRN ×2 (04:17→08:39)
[2018-06-05 06:57] LABS: ANION GAP 4 mmol/L (5-15); BLOOD UREA NITROGEN 31 mg/dL (7-18); CALCIUM 8.6 MG/DL (8.5-10.1); CARBON DIOXIDE 34 MMOL/L (21-32); CHLORIDE 98 MMOL/L (98-107); CREATININE 1.4 MG/DL (0.55-1.30); POTASSIUM 3.7 MMOL/L (3.5-5.1); SODIUM 136 MMOL/L (136-145)
[2018-06-05 07:08] LABS: BASOPHILS % (AUTO) 1.5 % (0.0-2.0); EOSINOPHILS % (AUTO) 4.2 % (0.0-3.0); HEMATOCRIT 32.3 % (42.0-52.0); HEMOGLOBIN 9.9 G/DL (14.2-18.0); LYMPHOCYTES % (AUTO) 19.7 % (20.0-45.0); MEAN CORPUSCULAR VOLUME 87 FL (80-99); MONOCYTES % (AUTO) 10.5 % (1.0-10.0); PLATELET COUNT 142 K/UL (150-450); RED BLOOD COUNT 3.72 M/UL (4.70-6.10); RED CELL DISTRIBUTION WIDTH 20.9 % (11.6-14.8); WHITE BLOOD COUNT 3.8 K/UL (4.8-10.8)
[2018-06-05 08:00] VITALS: BP 117/62
[2018-06-05] MEDS: Imdur 30mg tab ORAL SCH (08:39)
[2018-06-05] MEDS: Digoxin 0.125mg tab ORAL SCH (08:39)
[2018-06-05] MEDS: Docusate 100mg cap ORAL SCH ×2 (08:40→12:33)
--- NOTE | 2018-06-05 08:59 | General Progress Note ---
Assessment/Plan Assessment/Plan (1) Lumbar degenerative disc disease (2) Lumbar spondylosis (3) Lumbar radiculopathy (4) Liver Cirrhosis (5) Abdominal pain Pt will be continued on Oxycodone. Pt was d/w Dr. Carson and he concurred. Subjective Date patient seen: Jun 05, 2018 Time patient seen: 07:00 - am Allergies: Coded Allergies: HYDROMORPHONE (Verified Allergy, Unknown, 12/28/10) Subjective Constitutional: Reports: weakness, Denies: chills, diaphoresis, fever, malaise , no symptoms, other HEENT: Denies: blurred vision, double vision, ear discharge, ear pain, eye pain , mouth pain, mouth swelling, no symptoms, nose congestion, nose pain, other, tearing, throat pain, throat swelling Cardiovascular: Denies: irregular heart rate, lightheadedness, no symptoms, other, palpitations, syncope Respiratory: Denies: SOB at rest, SOB with excertion, cough, no symptoms, orthopnea, other, shortness of breath, sputum, stridor, wheezing Gastrointestinal/Abdominal: Reports: abdominal pain, Denies: abdomen distended , black stools, blood in stool, constipated, diarrhea, difficulty swallowing, nausea, no symptoms, other, poor appetite, poor fluid intake, rectal bleeding, tarry stools, vomiting Genitourinary: Denies: burning, discharge, flank pain, frequency, hematuria, incontinence, no symptoms, other, pain, urgency Neurologic/Psychiatric: Reports: weakness, Denies: anxiety, depressed, emotional problems, headache, no symptoms, numbness, other, paresthesia, pre- existing deficit, seizure, tingling, tremors Endocrine: Denies: excessive sweating, flushing, increased hunger, increased thirst, increased urine, intolerance to cold, intolerance to heat, no symptoms, other, unexplained weight gain, unexplained weight loss Hematologic/Lymphatic: Denies: anemia, easy bleeding, easy bruising, no symptoms, other Subjective Patient laying in bed showing no signs of pain or distress. The pain has been tolerated on the Oxycodone 4 doses in the last 24hrs. He has no new complaints at this time. Objective Last 24 Hour Vital Signs Date Time Temp Pulse Resp B/P (MAP) Pulse Ox O2 Delivery O2 Flow Rate FiO2 12/21/18 08:39 109/67 06/05/18 08:39 71 06/05/18 08:39 71 109/67 06/05/18 07:47 Room Air Room Air 06/05/18 04:00 98.5 71 18 109/67 (81) 98 06/05/18 00:28 98.1 71 18 93/61 (72) 99 06/04/18 21:00 Room Air Room Air 06/04/18 20:08 74 122/68 06/04/18 20:00 98.4 71 18 105/77 (86) 99 06/04/18 16:00 98.0 74 18 117/52 (73) 97 06/04/18 12:00 97.7 75 18 110/71 (84) 99 06/04/18 09:23 112/80 06/04/18 09:23 79 06/04/18 09:23 79 112/80 06/04/18 09:00 Room Air Room Air Intake and Output 06/04/18 06/05/18 19:00 07:00 Intake Total 740 ml 55 ml Output Total 1200 ml 1100 ml Balance -460 ml -1045 ml Intake Oral 740 ml IV Total 55 ml Output Urine Total 1200 ml 1100 ml # Voids 6 Laboratory Tests 06/05/18 05:38: White Blood Count 3.8L, Red Blood Count 3.72L, Hemoglobin 9.9L, Hematocrit 32.3L , Mean Corpuscular Volume 87, Mean Corpuscular Hemoglobin 26.5L, Mean Corpuscular Hemoglobin Concent 30.5L, Red Cell Distribution Width 20.9H, Platelet Count 142L, Mean Platelet Volume 6.4L, Neutrophils (%) (Auto) 64.0, Lymphocytes (%) (Auto) 19.7L, Monocytes (%) (Auto) 10.5H, Eosinophils (%) (Auto ) 4.2H, Basophils (%) (Auto) 1.5, Sodium Level 136, Potassium Level 3.7, Chloride Level 98, Carbon Dioxide Level 34H, Anion Gap 4L, Blood Urea Nitrogen 31H, Creatinine 1.4H, Estimat Glomerular Filtration Rate > 60, Glucose Level 89 , Calcium Level 8.6 Height (Feet): 5 Height (Inches): 9.00 Weight (Pounds): 164 Objective General Appearance: no apparent distress, alert EENT: normal ENT inspection, TMs normal Neck: normal alignment, supple Cardiovascular: normal rate, regular rhythm Respiratory/Chest: lungs clear, normal breath sounds Abdomen: tender, distended Extremities: non-tender Edema: edema noted in b/l LE Neurologic: alert, oriented x 3 Skin: warm/dry Luc Sanchez Jun 05, 2018 08:59
--- NOTE | 2018-06-05 09:41 | Cardiac Electrophysiology PN ---
Assessment/Plan Assessment/Plan 1. Exacerbation of congestive heart failure. Continue digoxin 0.125 mg daily, Coreg, Imdur and Lasix 40 IV b.i.d and Aldactone 25 daily. 2. Paroxysmal atrial fibrillation on digoxin, Coreg and Xarelto. 3. Status post [facility] [facility] biventricular defibrillator with normal function. 4. Hypothyroidism. 5. Hepatitis and cirrhosis, status post paracentesis 1.5 liters . Further evaluation by Dr. Ryan. 6. Renal failure. BUN of 52 and creatinine of 2. FU Dr. Rojas. Subjective Subjective Feeling weak. No CP. SOB is better Objective Last 24 Hour Vital Signs Date Time Temp Pulse Resp B/P (MAP) Pulse Ox O2 Delivery O2 Flow Rate FiO2 06/05/18 08:39 109/67 06/05/18 08:39 71 06/05/18 08:39 71 109/67 06/05/18 07:47 Room Air Room Air 06/05/18 04:00 98.5 71 18 109/67 (81) 98 06/05/18 00:28 98.1 71 18 93/61 (72) 99 06/04/18 21:00 Room Air Room Air 06/04/18 20:08 74 122/68 06/04/18 20:00 98.4 71 18 105/77 (86) 99 06/04/18 16:00 98.0 74 18 117/52 (73) 97 06/04/18 12:00 97.7 75 18 110/71 (84) 99 Intake and Output 06/04/18 06/05/18 19:00 07:00 Intake Total 740 ml 55 ml Output Total 1200 ml 1100 ml Balance -460 ml -1045 ml Intake Oral 740 ml IV Total 55 ml Output Urine Total 1200 ml 1100 ml # Voids 6 Laboratory Tests Test 06/05/18 05:38 White Blood Count 3.8 K/UL (4.8-10.8) L Red Blood Count 3.72 M/UL (4.70-6.10) L Hemoglobin 9.9 G/DL (14.2-18.0) L Hematocrit 32.3 % (42.0-52.0) L Mean Corpuscular Volume 87 FL (80-99) Mean Corpuscular Hemoglobin 26.5 PG (27.0-31.0) L Mean Corpuscular Hemoglobin Concent 30.5 G/DL (32.0-36.0) L Red Cell Distribution Width 20.9 % (11.6-14.8) H Platelet Count 142 K/UL (150-450) L Mean Platelet Volume 6.4 FL (6.5-10.1) L Neutrophils (%) (Auto) 64.0 % (45.0-75.0) Lymphocytes (%) (Auto) 19.7 % (20.0-45.0) L Monocytes (%) (Auto) 10.5 % (1.0-10.0) H Eosinophils (%) (Auto) 4.2 % (0.0-3.0) H Basophils (%) (Auto) 1.5 % (0.0-2.0) Sodium Level 136 MMOL/L (136-145) Potassium Level 3.7 MMOL/L (3.5-5.1) Chloride Level 98 MMOL/L (98-107) Carbon Dioxide Level 34 MMOL/L (21-32) H Anion Gap 4 mmol/L (5-15) L Blood Urea Nitrogen 31 mg/dL (7-18) H Creatinine 1.4 MG/DL (0.55-1.30) H Estimat Glomerular Filtration Rate > 60 mL/min (>60) Glucose Level 89 MG/DL (74-106) Calcium Level 8.6 MG/DL (8.5-10.1) Microbiology Date/Time Source Procedure Growth Status 06/03/18 09:30 Ascities Fluid Gram Stain - Final Resulted 06/03/18 09:30 Ascities Fluid Body Fluid Culture - Preliminary NO GROWTH Resulted Objective HEAD AND NECK: Moderate JVD. LUNGS: Decreased breath sounds. CARDIOVASCULAR: Regular S1 and S2 with S3 gallop with soft systolic murmur. Defibrillator in left subclavian. ABDOMEN: Soft with ascites. EXTREMITIES: 1+ pitting edema. Rc Zhang MD Jun 05, 2018 09:41
[2018-06-05 12:00] VITALS: BP_SYST 101; BP_SYST 123; BP_DIAS 52; BP_DIAS 93
--- NOTE | 2018-06-05 13:15 | Nephrology Progress Note ---
Assessment/Plan Problem List: (1) Acute renal failure Assessment: Cr lower (2) Cardiorenal syndrome (3) Cirrhosis (4) ICD (implantable cardioverter-defibrillator) in place (5) Cardiomyopathy due to hypertension, with heart failure Assessment 1. Acute kidney injury on chronic kidney disease, stage 4 secondary to cardiorenal syndrome from low ejection fraction. Has ICD 2. Hyperkalemia, improving 3. Decompensated congestive heart failure. 4. Ascites. Cardiogenic in nature. Has underlying hepatitis. 5. Shortness of breath, Plan off Aldactone Dig level checked optimize cardiac function ua urine tox screen Kayexelate- as needed Reglan IV Allopurinol monitor renal parameters IV Iron Paracenthesis done monitor TSH Subjective ROS Limited/Unobtainable: No Objective Objective Last 24 Hour Vital Signs Date Time Temp Pulse Resp B/P (MAP) Pulse Ox O2 Delivery O2 Flow Rate FiO2 06/05/18 12:00 98.1 70 19 101/93 (96) 98 06/05/18 08:39 109/67 06/05/18 08:39 71 06/05/18 08:39 71 109/67 06/05/18 08:00 98.8 71 19 117/62 (80) 100 06/05/18 07:47 Room Air Room Air 06/05/18 04:00 98.5 71 18 109/67 (81) 98 06/05/18 00:28 98.1 71 18 93/61 (72) 99 06/04/18 21:00 Room Air Room Air 06/04/18 20:08 74 122/68 06/04/18 20:00 98.4 71 18 105/77 (86) 99 06/04/18 16:00 98.0 74 18 117/52 (73) 97 Intake and Output 06/04/18 06/05/18 19:00 07:00 Intake Total 740 ml 55 ml Output Total 1200 ml 1100 ml Balance -460 ml -1045 ml Intake Oral 740 ml IV Total 55 ml Output Urine Total 1200 ml 1100 ml # Voids 6 Laboratory Tests 06/05/18 05:38: White Blood Count 3.8L, Red Blood Count 3.72L, Hemoglobin 9.9L, Hematocrit 32.3L , Mean Corpuscular Volume 87, Mean Corpuscular Hemoglobin 26.5L, Mean Corpuscular Hemoglobin Concent 30.5L, Red Cell Distribution Width 20.9H, Platelet Count 142L, Mean Platelet Volume 6.4L, Neutrophils (%) (Auto) 64.0, Lymphocytes (%) (Auto) 19.7L, Monocytes (%) (Auto) 10.5H, Eosinophils (%) (Auto ) 4.2H, Basophils (%) (Auto) 1.5, Sodium Level 136, Potassium Level 3.7, Chloride Level 98, Carbon Dioxide Level 34H, Anion Gap 4L, Blood Urea Nitrogen 31H, Creatinine 1.4H, Estimat Glomerular Filtration Rate > 60, Glucose Level 89 , Calcium Level 8.6 Height (Feet): 5 Height (Inches): 9.00 Weight (Pounds): 164 General Appearance: no apparent distress Cardiovascular: normal rate Respiratory/Chest: decreased breath sounds Abdomen: distended Blaine Rojas MD Jun 05, 2018 13:15
[2018-06-05] MEDS ORDERED: ACETAMINOPHEN325 M1 ORAL (13:49)
[2018-06-05] MEDS ORDERED: ALLOPURINOL300 M1 ORAL (13:49)
--- NOTE | 2018-06-05 13:49 | General Progress Note ---
Assessment/Plan Problem List: (1) HTN (hypertension) ICD Codes: I10 - Essential (primary) hypertension SNOMED: 55084595 (2) CHF (congestive heart failure) ICD Codes: I50.9 - Heart failure, unspecified SNOMED: 29499440 (3) Malnutrition ICD Codes: E46 - Unspecified protein-calorie malnutrition SNOMED: 47256298 (4) Chronic pain ICD Codes: G89.29 - Other chronic pain SNOMED: 10712749 (5) Acute renal failure ICD Codes: N17.9 - Acute kidney failure, unspecified SNOMED: 02231447 (6) Ascites ICD Codes: R18.8 - Ascites SNOMED: 659151218 (7) Cirrhosis ICD Codes: K74.60 - Unspecified cirrhosis of liver SNOMED: 23242879 (8) Hepatitis C ICD Codes: B19.20 - Hepatitis C SNOMED: 41850715 (9) Anemia ICD Codes: D64.9 - Anemia, unspecified SNOMED: 643149527 Status: stable, progressing Assessment/Plan o2 pulm tx pain control dicharmainee kellie w Subjective Constitutional: Reports: weakness Allergies: Coded Allergies: HYDROMORPHONE (Verified Allergy, Unknown, 12/28/10) All Systems: reviewed and negative except above Subjective feeling better Objective Last 24 Hour Vital Signs Date Time Temp Pulse Resp B/P (MAP) Pulse Ox O2 Delivery O2 Flow Rate FiO2 06/05/18 12:00 98.1 70 19 101/93 (96) 98 06/05/18 08:39 109/67 06/05/18 08:39 71 06/05/18 08:39 71 109/67 06/05/18 08:00 98.8 71 19 117/62 (80) 100 06/05/18 07:47 Room Air Room Air 06/05/18 04:00 98.5 71 18 109/67 (81) 98 06/05/18 00:28 98.1 71 18 93/61 (72) 99 06/04/18 21:00 Room Air Room Air 06/04/18 20:08 74 122/68 06/04/18 20:00 98.4 71 18 105/77 (86) 99 06/04/18 16:00 98.0 74 18 117/52 (73) 97 Intake and Output 06/04/18 06/05/18 19:00 07:00 Intake Total 740 ml 55 ml Output Total 1200 ml 1100 ml Balance -460 ml -1045 ml Intake Oral 740 ml IV Total 55 ml Output Urine Total 1200 ml 1100 ml # Voids 6 Laboratory Tests 06/05/18 05:38: White Blood Count 3.8L, Red Blood Count 3.72L, Hemoglobin 9.9L, Hematocrit 32.3L , Mean Corpuscular Volume 87, Mean Corpuscular Hemoglobin 26.5L, Mean Corpuscular Hemoglobin Concent 30.5L, Red Cell Distribution Width 20.9H, Platelet Count 142L, Mean Platelet Volume 6.4L, Neutrophils (%) (Auto) 64.0, Lymphocytes (%) (Auto) 19.7L, Monocytes (%) (Auto) 10.5H, Eosinophils (%) (Auto ) 4.2H, Basophils (%) (Auto) 1.5, Sodium Level 136, Potassium Level 3.7, Chloride Level 98, Carbon Dioxide Level 34H, Anion Gap 4L, Blood Urea Nitrogen 31H, Creatinine 1.4H, Estimat Glomerular Filtration Rate > 60, Glucose Level 89 , Calcium Level 8.6 Height (Feet): 5 Height (Inches): 9.00 Weight (Pounds): 164 General Appearance: alert EENT: normal ENT inspection Neck: normal alignment Cardiovascular: normal peripheral pulses, normal rate, regular rhythm Respiratory/Chest: chest wall non-tender, lungs clear, normal breath sounds Abdomen: normal bowel sounds, non tender, soft Extremities: normal inspection Edema: no edema noted Arm (L), no edema noted Arm (R), no edema noted Leg (L), no edema noted Leg (R), no edema noted Pedal (L), no edema noted Pedal (R), no edema noted Generalized Neurologic: motor weakness Skin: normal pigmentation, warm/dry Cory Cherrymy Harmonyg Jun 05, 2018 13:49
[2018-06-05] MEDS ORDERED: CARVEDILOL3.125 MG ORAL (13:51)
[2018-06-05] MEDS ORDERED: COLACE100 MG ORAL (13:52)
[2018-06-05] MEDS ORDERED: FUROSEMIDE40 MG ORAL (13:53)
[2018-06-05] MEDS ORDERED: ISOSORBIDE MONO10 MG PO (13:54)
[2018-06-05] MEDS ORDERED: LEVOTHYROXINE200 MCG PO (13:55)
[2018-06-05] MEDS ORDERED: LEVOTHYROXINE175 MCG ORAL (13:56)
[2018-06-05] MEDS ORDERED: OXYCODONE HCL10 MG ORAL (13:57)
[2018-06-05] MEDS ORDERED: POLYETHYLENE GL17 GM ORAL (13:59)
[2018-06-05] MEDS ORDERED: XARELTO10 MG ORAL (14:01)
[2018-06-05] MEDS ORDERED: TEMAZEPAM15 MG ORAL (14:03)
--- NOTE | 2018-06-05 15:09 | GI Progress Note ---
Assessment/Plan Problems: (1) Cirrhosis ICD Codes: K74.60 - Unspecified cirrhosis of liver SNOMED: 39465024 (2) Right-sided heart failure ICD Codes: I50.9 - Right-sided heart failure SNOMED: 481105672 (3) Ascites ICD Codes: R18.8 - Ascites SNOMED: 949554707 (4) Anemia ICD Codes: D64.9 - Anemia, unspecified SNOMED: 243024855 Status: stable Status Narrative Discussed with Dr. Ryan Assessment/Plan Assessment - Hepatitis C, eradicated per pt - Possible ascites, but volume likely small - CM - Azotemia - cardiac ascites - s/p paracentesis yielding 1.5L - AFP normal Recommendations - advance diet - Diuretics - Na restriction - fu cardiology recs - dc planning The patient was seen and examined at bedside and all new and available data was reviewed in the patients chart. I agree with the above findings, impression and plan. (Patient seen earlier today. Signature stamp does not reflect patient encounter time.). - Beto Ryan MD Subjective Subjective abdominal discomfort and distention improved Objective Last 24 Hour Vital Signs Date Time Temp Pulse Resp B/P (MAP) Pulse Ox O2 Delivery O2 Flow Rate FiO2 06/05/18 12:00 98.1 70 19 101/93 (96) 98 06/05/18 08:39 109/67 06/05/18 08:39 71 06/05/18 08:39 71 109/67 06/05/18 08:00 98.8 71 19 117/62 (80) 100 06/05/18 07:47 Room Air Room Air 06/05/18 04:00 98.5 71 18 109/67 (81) 98 06/05/18 00:28 98.1 71 18 93/61 (72) 99 06/04/18 21:00 Room Air Room Air 06/04/18 20:08 74 122/68 06/04/18 20:00 98.4 71 18 105/77 (86) 99 06/04/18 16:00 98.0 74 18 117/52 (73) 97 Intake and Output 06/04/18 06/05/18 19:00 07:00 Intake Total 740 ml 55 ml Output Total 1200 ml 1100 ml Balance -460 ml -1045 ml Intake Oral 740 ml IV Total 55 ml Output Urine Total 1200 ml 1100 ml # Voids 6 Laboratory Tests Test 06/05/18 05:38 White Blood Count 3.8 K/UL (4.8-10.8) L Red Blood Count 3.72 M/UL (4.70-6.10) L Hemoglobin 9.9 G/DL (14.2-18.0) L Hematocrit 32.3 % (42.0-52.0) L Mean Corpuscular Volume 87 FL (80-99) Mean Corpuscular Hemoglobin 26.5 PG (27.0-31.0) L Mean Corpuscular Hemoglobin Concent 30.5 G/DL (32.0-36.0) L Red Cell Distribution Width 20.9 % (11.6-14.8) H Platelet Count 142 K/UL (150-450) L Mean Platelet Volume 6.4 FL (6.5-10.1) L Neutrophils (%) (Auto) 64.0 % (45.0-75.0) Lymphocytes (%) (Auto) 19.7 % (20.0-45.0) L Monocytes (%) (Auto) 10.5 % (1.0-10.0) H Eosinophils (%) (Auto) 4.2 % (0.0-3.0) H Basophils (%) (Auto) 1.5 % (0.0-2.0) Sodium Level 136 MMOL/L (136-145) Potassium Level 3.7 MMOL/L (3.5-5.1) Chloride Level 98 MMOL/L (98-107) Carbon Dioxide Level 34 MMOL/L (21-32) H Anion Gap 4 mmol/L (5-15) L Blood Urea Nitrogen 31 mg/dL (7-18) H Creatinine 1.4 MG/DL (0.55-1.30) H Estimat Glomerular Filtration Rate > 60 mL/min (>60) Glucose Level 89 MG/DL (74-106) Calcium Level 8.6 MG/DL (8.5-10.1) Height (Feet): 5 Height (Inches): 9.00 Weight (Pounds): 164 General Appearance: WD/WN, no apparent distress, alert Cardiovascular: normal rate Respiratory/Chest: normal breath sounds, no respiratory distress Abdominal Exam: normal bowel sounds, non tender, soft Extremities: normal range of motion, non-tender Bird,Chanel-Joseph HOUSEHOLD MANAGER Jun 05, 2018 15:09
--- NOTE | 2018-06-07 12:36 | Discharge Summary ---
Discharge Summary Discharge Summary _ DATE OF ADMISSION: 05/30/2018 DATE OF DISCHARGE:06/05/2018 DISCHARGED BY: Dr. Cherry REASON FOR ADMISSION: 63 years old male with past medical history of congestive heart failure with cardiomyopathy, ejection fraction less than 10%, persistent atrial fibrillation , status post ablation, right-sided heart failure, AICD, liver cirrhosis, hypothyroidism, recently hospitalized for cardiogenic shock, presented to emergency department with complaint of chest pain. Episode of chest pain happened at home while he was walking in the room. Patient also reported epigastric discomfort. Upon evaluation in the emergency department vital signs were stable. Pulse oximetry was 92% on room air. Laboratory workup revealed no leukocytosis, anemia with hemoglobin 10.7 hematocrit 25.7. Chemistry showed evidence of renal failure with BUN 56, creatinine 2.1. Potassium 6.0. Total bilirubin 1.9, direct bilirubin 1.3. Troponin negative. ECG revealed paced rhythm. Chest x-ray revealed right lung interstitial and airspace opacities . Patient was admitted for further management CONSULTANTS: barrel burner Dr. Myers pulmonary Dr. Chavarria GI specialist Dr. Ryan boom supervisor Dr. Rojas innersole maker/oncologist Dr. Joyce pain specialist Dr. Carson [facility]SE: Patient was initially admitted to [facility]. Echocardiogram revealed ejection fraction of 15%. Global left ventricular hypokinesis. Anteroseptal akinesis. Mild left ventricular enlargement. Severe left atrial enlargement ,mild right atrial enlargement and mild right ventricular enlargement. Severely elevated left atrial pressure grade 3. Moderate mitral and tricuspid regurgitation. Right ventricular systolic pressure of 68 consistent with severe pulmonary hypertension. Patient started on IV diuresis with Lasix with close monitoring on volumes and cardiorenal parameters. Poultry Raiser closely followed. Anti-failure regimen of the digoxin,Imdur, Coreg , Lasix and Aldactone with holding parameters resumed. Blood pressure was closely monitored. AICD was interrogated prior and revealed normal functioning. Anticoagulation with Xarelto was resumed. Rate was controlled with beta sina. Kayexalate provided for management of hyperkalemia. Renal parameters and electrolytes were closely monitored. Electrolytes corrected as needed. Nephrotoxins were avoided. Machine Filler Servicer closely followed. Per boom supervisor , patient had acute kidney injury on chronic kidney disease stage IV ,secondary to cardiorenal syndrome from low ejection fraction. Patient was taken off Aldactone given hyperkalemia. TSH was elevated. Dose of levothyroxine was up-titrated. Repeat TSH in 1 month. Creatinine from initial 2.1 down to 1.4. Uric acid elevated 12.3. Patient was on allopurinol. Hepatitis C was not detected. Patient status post treatment for hepatitis C. Alpha-fetoprotein was within normal limits. GI specialist followed. Abdominal ultrasound reveals hepatic surface micronodularity consistent with cirrhosis. Ascites. Negative for gallstones or dilated ducts. Patient subsequently undergone ultrasound-guided paracentesis .yielding 1.5 L of fluid. Ascitic fluid culture was negative. GI specialist recommended continue diuretic and sodium restriction. Ascites was cardiogenic in nature. Supplemental oxygen provided as needed to keep above 92%. Pulmonary toilet provided as needed. DVT prophylaxis provided. Venous duplex of bilateral lower extremity revealed no evidence of DVT. Pain management was provided as per pain specialist recommendations patient with history of lumbar degenerative disc disease. Pain was controlled. Hemoglobin and hematocrit were closely monitored with goal to keep hemoglobin above 7. Bowel regimen instituted Supportive care provided. Patient stabilized and was ready for discharge home with home health services. FINAL DIAGNOSES: Acute systolic and diastolic congestive heart failure exacerbation Paroxysmal atrial fibrillation Acute kidney injury on chronic kidney disease, stage IV, secondary to cardiorenal syndrome from low ejection fraction Cardiorenal syndrome Cardiomyopathy due to hypertension with heart failure Severe pulmonary hypertension Right-sided heart failure Hyperkalemia Anemia of chronic disease Status post [place] biventricular defibrillator with normal functioning Liver cirrhosis Ascites , cardiogenic in nature Status post paracentesis Hypothyroidism Lumbar degenerative disc disease Lumbar spondylosis Lumbar radiculopathy DISCHARGE MEDICATIONS: See Medication Reconciliation list. DISCHARGE INSTRUCTIONS: Patient was discharged home with home health services. Follow up with primary care provider in one week. Aarti Bryant NP Jun 07, 2018 12:36
== END 2018-06-05 15:45 | disposition home health service (06) | DRG 291 ==
LOC: EMR 13:09 → EDBEDREQ 14:06 → 2E 14:30 → OBSVTOIN 14:30 → EDBEDREQ 15:51 → 4E 06-01 20:21 → 2E 06-01 20:21 → 4E 06-02 10:55
PROC: 0W9G3ZZ Drainage of Peritoneal Cavity, Percutaneous Approach (ICD-10-PCS; principal; 2018-05-30)
PROC: 30233K1 Transfusion of Nonautologous Frozen Plasma into Peripheral Vein, Percutaneous Approach (ICD-10-PCS; 2018-06-02)
DX: I13.0 Hypertensive heart and chronic kidney disease with heart failure and stage 1 through stage 4 chronic kidney disease, or unspecified chronic kidney disease (principal); I50.41 Acute combined systolic (congestive) and diastolic (congestive) heart failure; N18.4 Chronic kidney disease, stage 4 (severe); N17.9 Acute kidney failure, unspecified; E46 Unspecified protein-calorie malnutrition; Z99.2 Dependence on renal dialysis; I34.0 Nonrheumatic mitral (valve) insufficiency; I36.1 Nonrheumatic tricuspid (valve) insufficiency; I48.0 Paroxysmal atrial fibrillation; I27.20 Pulmonary hypertension, unspecified; E87.5 Hyperkalemia; K74.60 Unspecified cirrhosis of liver; D63.8 Anemia in other chronic diseases classified elsewhere; I50.811 Acute right heart failure; E03.9 Hypothyroidism, unspecified; M51.16 Intervertebral disc disorders with radiculopathy, lumbar region; M47.896 Other spondylosis, lumbar region; Z86.19 Personal history of other infectious and parasitic diseases; Z88.6 Allergy status to analgesic agent; Z95.810 Presence of automatic (implantable) cardiac defibrillator; Z79.01 Long term (current) use of anticoagulants
CPT/HCPCS: 36415; 71045; 76700; 76942; 80048; 80053; 80069; 80162; 80307; 81001; 82105; 82140; 82248; 82550; 82553; 82607; 82728; 82746; 83540; 83550; 83735; 83880; 84100; 84443; 84484; 84550; 85025; 85610; 85730; 86140; 86850; 86900; 86901; 86927; 87070; 87081; 87205; 87522; 89051; 93005; 93306; 93970; 94664; 97803; 99285; J2405; J2765; J3430

== ENCOUNTER 2018-06-28 22:45 | Emergency (ER) | payer MEDICARE, MEDICAID ==
[~2018-06-28] VITALS: Ht 175.3 cm; Wt 73.5 kg
[~2018-06-28 22:45] MED LIST changes: +ACETAMINOPHEN325 M1 ORAL; +ALLOPURINOL300 M1 ORAL; +ISOSORBIDE MONO10 MG PO; +LEVOTHYROXINE175 MCG ORAL; +LEVOTHYROXINE200 MCG PO; +POLYETHYLENE GL17 GM ORAL; +TEMAZEPAM15 MG ORAL
[2018-06-28 22:55] VITALS: BP 112/60
[2018-06-28] MEDS ORDERED: Norco 5mg/325mg tab ORAL ONE (23:00)
--- NOTE | 2018-06-28 23:03 | Emergency Room Report ---
History of Present Illness General Chief Complaint: Dyspnea/Respdistress Source: Patient, Medical Record Present Illness HPI Is a 63-year-old male with a history of chronic A. fib and CHF with ejection fraction around 10:15 percent. He does have an AICD. Also has a history of chronic pain. He said is out of his oxycodone. Complaining of chest pain and abdominal pain. Onset for last few days. Sammy symptom in the past. Did not go refill his pain medication. No nausea no vomiting. No fever or chills. Pain is 10 out of 10. Nothing made it better. Nothing made it worse. Denies any other complaint. No swelling. Allergies: Coded Allergies: HYDROMORPHONE (Verified Allergy, Unknown, 12/28/10) Patient History Past Medical History: see triage record, old chart reviewed, CHF, AFib Past Surgical History: other Pertinent Family History: none Social History: Denies: smoking Immunizations: other Reviewed Nursing Documentation: PMH: Agreed; PSxH: Agreed Nursing Documentation-PMH Hx Cardiac Problems: Yes - CHF Hx Hypertension: Yes Hx Pacemaker: No Hx COPD: Yes Hx Diabetes: Yes Hx Cancer: No Hx Gastrointestinal Problems: Yes Hx Neurological Problems: No Hx Cerebrovascular Accident: No Hx Transient Ischemic Attacks: No Review of Systems Eye: Denies: eye pain, blurred vision ENT: Denies: ear pain, nose congestion, throat swelling Respiratory: Denies: cough, shortness of breath Cardiovascular: Reports: chest pain; Denies: palpitations Gastrointestinal: Reports: abdominal pain; Denies: diarrhea, nausea, vomiting Musculoskeletal: Denies: back pain, joint pain Skin: Denies: rash Neurological: Denies: headache, numbness Endocrine: Denies: increased thirst, increased urine Hematologic/Lymphatic: Denies: easy bruising All Other Systems: negative except mentioned in HPI Physical Exam Vital Signs Date Time Temp Pulse Resp B/P (MAP) Pulse Ox O2 Delivery O2 Flow Rate FiO2 06/28/18 22:46 98.1 106 19 112/60 91 Room Air vitals with hypoxia Sp02 EP Interpretation: reviewed, abnormal General Appearance: no apparent distress, alert, Chronically Ill Head: normocephalic, atraumatic Eyes: bilateral eye PERRL, bilateral eye EOMI ENT: hearing grossly normal, normal pharynx Neck: full range of motion, supple, no meningismus Respiratory: chest non-tender, lungs clear, normal breath sounds Cardiovascular #1: regular rate, rhythm, no murmur Gastrointestinal: normal bowel sounds, non tender, no mass, no organomegaly, no bruit, non-distended Musculoskeletal: back normal, gait/station normal, normal range of motion Psychiatric: mood/affect normal Skin: warm/dry Medical Decision Making Diagnostic Impression: Primary Impression: Chest pain Qualified Codes: R07.9 - Chest pain, unspecified Additional Impressions: Chronic pain Qualified Codes: G89.4 - Chronic pain syndrome Hyperkalemia ARIS (acute kidney injury) ER Course Patient presents with exacerbation of his chronic pain secondary to lack of opiates. He has not refill his medication yet. No evidence of ACS, PE, dissection to name a few. Kidney function is worse. I suspect this causes potassium to be elevated. There is no evidence of any peaked T waves on EKG. We'll repeat after gentle hydration. Patient looks comfortable. If potassium come back normal, we'll discharge home. EKG Diagnostic Results Rate: normal Rhythm: other - A. fib with paced rhythm ST Segments: other - NSST changes ASA given to the pt in ED: No Rhythm Strip Diag. Results EP Interpretation: yes Rate: 76 Rhythm: no PVC's, no ectopy, other - afib Chest X-Ray Diagnostic Results Chest X-Ray Diagnostic Results : Chest X-Ray Ordered: Yes # of Views/Limited/Complete: 1 View Indication: Chest Pain EP Interpretation: Yes Interpretation: no consolidation, no effusion, no pneumothorax, no acute cardiopulmonary disease, other - CM Impression: No acute disease Electronically Signed by: Nicholas Bird MD Last Vital Signs Date Time Temp Pulse Resp B/P (MAP) Pulse Ox O2 Delivery O2 Flow Rate FiO2 06/28/18 22:46 98.1 106 19 112/60 91 Room Air Status: improved Disposition: HOME, SELF-CARE Condition: Stable Scripts Hydrocodone/Acetaminophen 5-325* (HYDROCODONE/ACETAMINOPHEN 5-325*) 1 Each Tablet 1 TAB ORAL Q6H PRN for For Pain, #15 TAB 0 Refills Prov: Nicholas Bird MD 06/29/18 Additional Instructions: Follow-up with Dr. Cherry for refill your pain medication. Follow-up your doctor in a week. Return if symptom worsen. Nicholas Bird MD Jun 28, 2018 23:03
[2018-06-29 00:10] LABS: BASOPHILS % (AUTO) 2.8 % (0.0-2.0); EOSINOPHILS % (AUTO) 1.2 % (0.0-3.0); HEMATOCRIT 38.8 % (42.0-52.0); HEMOGLOBIN 12.1 G/DL (14.2-18.0); LYMPHOCYTES % (AUTO) 25.9 % (20.0-45.0); MEAN CORPUSCULAR VOLUME 90 FL (80-99); MONOCYTES % (AUTO) 11.1 % (1.0-10.0); PLATELET COUNT 163 K/UL (150-450); RED BLOOD COUNT 4.34 M/UL (4.70-6.10); RED CELL DISTRIBUTION WIDTH 22.3 % (11.6-14.8); WHITE BLOOD COUNT 3.6 K/UL (4.8-10.8)
[2018-06-29 00:12] LABS: APPEARANCE,URINE CLEAR; BILIRUBIN, URINE NEGATIVE (NEGATIVE); GLUCOSE, URINE (UA) NEGATIVE (NEGATIVE); KETONES,URINE NEGATIVE (NEGATIVE); LEUKOCYTE ESTERASE ,URINE 1+ (NEGATIVE); NITRITE,URINE NEGATIVE (NEGATIVE); PH,URINE 6 (4.5-8.0); PROTEIN,URINE 3+ (NEGATIVE); UROBILINOGEN,URINE 4 MG/DL (0.0-1.0)
[2018-06-29 00:23] LABS: COLOR,URINE YELLOW
[2018-06-29 00:26] LABS: ALANINE AMINOTRANSFERASE 17 U/L (12-78); ALBUMIN 3.7 G/DL (3.4-5.0); ALBUMIN/GLOBULIN RATIO 0.8 (1.0-2.7); ALKALINE PHOSPHATASE 131 U/L (46-116); ANION GAP 7 mmol/L (5-15); ASPARTATE AMINO TRANSFERASE 27 U/L (15-37); BILIRUBIN,TOTAL 2.1 MG/DL (0.2-1.0); BLOOD UREA NITROGEN 61 mg/dL (7-18); CALCIUM 9.5 MG/DL (8.5-10.1); CARBON DIOXIDE 26 MMOL/L (21-32); CHLORIDE 99 MMOL/L (98-107); SODIUM 131 MMOL/L (136-145)
[2018-06-29 00:29] LABS: POTASSIUM 6.3 MMOL/L (3.5-5.1)
[2018-06-29 00:31] LABS: BILIRUBIN,DIRECT 1.2 MG/DL (0.0-0.3)
[2018-06-29] MEDS ORDERED: Insulin Human Regular 100units/ml 3ml IV ONE (00:45)
[2018-06-29] MEDS ORDERED: NS 250 ML IVPB ONE (00:45)
[2018-06-29 00:55] VITALS: BP 110/64
[2018-06-29 02:33] VITALS: BP 118/61
[2018-06-29 02:40] LABS: ANION GAP 7 mmol/L (5-15); BLOOD UREA NITROGEN 59 mg/dL (7-18); CARBON DIOXIDE 25 MMOL/L (21-32); CHLORIDE 101 MMOL/L (98-107); CREATININE 1.9 MG/DL (0.55-1.30); POTASSIUM 5.2 MMOL/L (3.5-5.1); SODIUM 133 MMOL/L (136-145)
[2018-06-29] MEDS ORDERED: HYDROCODON-ACE1 EA15 ORAL (03:06)
[2018-06-29 03:14] VITALS: BP 116/63
[2018-06-29 03:15] VITALS: BP 116/63
--- NOTE | 2018-06-29 11:47 | Diagnostic Imaging Report ---
Indication: Chest pain Comparison: 06/01/2018 A single view chest radiograph was obtained. Findings: Prominent heart size and pulmonary vascularity are demonstrated. Pacemaker is present on the left. No definite interstitial edema or infiltrates are identified at this time. IMPRESSION: Prominent pulmonary vascularity without overt CHF at this time
== END 2018-06-29 03:15 | disposition home or self-care (01) ==
LOC: EMR 23:16
DX: R07.9 Chest pain, unspecified (principal); R10.9 Unspecified abdominal pain; G89.29 Other chronic pain; E87.5 Hyperkalemia; N17.9 Acute kidney failure, unspecified; I11.0 Hypertensive heart disease with heart failure; I50.9 Heart failure, unspecified; E11.9 Type 2 diabetes mellitus without complications; J44.9 Chronic obstructive pulmonary disease, unspecified; I48.91 Unspecified atrial fibrillation
CPT/HCPCS: 36415; 71045; 80048; 80053; 80307; 81003; 82248; 82962; 84484; 85025; 93005; 96374; 96375; 99284; J1815